=== PATIENT | female | born 1940 | race American Indian/Alaskan Native ===

== ENCOUNTER 2016-10-20 09:41 | Inpatient (IN) | payer MEDICARE ==
[2016-10-20 09:42] VITALS: BMI 24.0
[2016-10-20 10:22] LABS: VENOUS BLOOD GAS BASE EXCESS -6.8 mmol/L (0.0-2.0); VENOUS BLOOD GAS PCO2 52 mmHg (40-60); VENOUS BLOOD PH 7.22 (7.32-7.43)
[2016-10-20 10:24] LABS: BASO % 0.5 % (0.0-2.0); EOS # 0.1 K/uL (0.0-0.7); EOS % 1.2 % (0.0-4.0); HEMATOCRIT 33.6 % (34.0-47.0); LYMPH # 0.7 K/uL (1.0-4.3); LYMPH % 7.6 % (20.0-40.0); MEAN CELL VOLUME 86.6 fL (81.0-99.0); MEAN CORPUSCULAR HEMOGLOBIN 26.7 pg (27.0-31.0); MEAN CORPUSCULAR HGB CONC 30.9 g/dL (33.0-37.0); MEAN PLATELET VOLUME 8.9 fL (7.2-11.7); MONO # 0.2 K/uL (0.0-0.8); MONO % 2.8 % (0.0-10.0); PLATELET COUNT 155 K/uL (130-400); RED CELL DISTRIBUTION WIDTH 16.1 % (11.5-14.5); WHITE BLOOD COUNT 8.6 K/uL (4.8-10.8)
[2016-10-20 10:31] LABS: POTASSIUM 4.9 mmol/L (3.6-5.2)
[2016-10-20 10:33] LABS: BILIRUBIN,TOTAL 0.6 mg/dL (0.2-1.3)
[2016-10-20 10:34] LABS: ALB/GLOB RATIO 1.2 (1.0-2.1); CALCIUM 9.1 mg/dl (8.6-10.4); TOTAL PROTEIN 7.9 g/dL (6.3-8.3)
[2016-10-20 10:46] LABS: TROPONIN I 0.023 ng/mL (0.00-0.120)
--- NOTE | 2016-10-20 10:54 | RAD ---
PROCEDURE: CHEST RADIOGRAPH, 1 VIEW HISTORY: ams COMPARISON: Comparison chest 06/05/2016 FINDINGS: LUNGS: Diffuse bilateral infiltrates likely representing pulmonary edema/CHF. PLEURA: No pneumothorax or pleural fluid seen. CARDIOVASCULAR: Cardiomegaly OSSEOUS STRUCTURES: No significant abnormalities. VISUALIZED UPPER ABDOMEN: Normal. OTHER FINDINGS: None. IMPRESSION: Diffuse bilateral infiltrates likely representing pulmonary edema/CHF.
[2016-10-20 10:57] LABS: RBC URINE 4 /hpf (0-3); TRANSITIONAL EPITHIAL 3 /hpf (0-3); URINE BACTERIA RARE (<OCC); URINE BILIRUBIN NEGATIVE (NEGATIVE); URINE BLOOD 1+ (NEGATIVE); URINE COLOR Yellow (YELLOW); URINE GLUCOSE (UA) 2+ mg/dL (Normal); URINE KETONE NEGATIVE (NEGATIVE); URINE LEUKOCYTE ESTERASE 3+ Leu/uL (Negative); URINE PROTEIN 2+ mg/dL (NEGATIVE); URINE UROBILINOGEN NORMAL mg/dL (0.2-1.0); WBC URINE 53 /hpf (0-5)
--- NOTE | 2016-10-20 11:14 | C.PDOC ---
History Of Present Illness 76-year-old female with PMHx that includes Hypertension and Diabetes, presents to the emergency department [facility] for evaluation of altered mental status. As per family, patient woke up this morning, was confused and not acting like herself. Patient's blood sugar was in 30's on EMS arrival. She was given two AMPs of D50 by ALS en route. Patient reports she is currently feeling "cold" and is shivering during evaluation. She denies shortness of breath, abdominal pain, nausea/vomiting, sensory changes, extremity weakness, facial droop, slurred speech, visual changes. Time Seen by Provider: 10/20/16 09:46 Chief Complaint (Nursing): Altered Mental Status History Per: Patient, EMS, Family History/Exam Limitations: Other (ams) Onset/Duration Of Symptoms: Hrs Current Symptoms Are (Timing): Better Severity: Moderate Past Medical History Reviewed: Historical Data, Nursing Documentation, Vital Signs Vital Signs: Last Vital Signs Temp 98.6 F 10/23/16 07:19 Pulse 98 H 10/23/16 08:00 Resp 20 10/23/16 07:19 BP 154/75 H 10/23/16 11:32 Pulse Ox 95 10/23/16 07:19 - Medical History PMH: Anemia, Arthritis, Asthma (Dx 15 yrs ago,does not use home o2 anymore), Diabetes, Fractures (Right ankle. No sx, casted), HTN, Hypercholesterolemia, Peripheral Edema, Pneumonia (x2), Chronic Kidney Disease, TIA (x3 about 20 yrs ago, 10 yrs ago, 7 yrs ago) Surgical History: Endoscopy - [facility] Procedures INJECT/INFUSE NEC (07/22/14) Family History: States: No Known Family Hx - Social History Hx Tobacco Use: No Hx Alcohol Use: No Hx Substance Use: No - Immunization History Hx Tetanus Toxoid Vaccination: No Hx Influenza Vaccination: No Hx Pneumococcal Vaccination: No Review Of Systems Except As Marked, All Systems Reviewed And Found Negative. Constitutional: Negative for: Fever, Chills Cardiovascular: Negative for: Chest Pain, Palpitations Respiratory: Negative for: Cough, Shortness of Breath Gastrointestinal: Negative for: Nausea, Vomiting, Abdominal Pain, Diarrhea Musculoskeletal: Negative for: Back Pain Neurological: Positive for: Confusion, Altered Mental Status. Negative for: Numbness, Incoordination, Change in Speech, Seizures, Headache Physical Exam - Physical Exam Appears: Well, Non-toxic, No Acute Distress Skin: Warm, Dry, No Rash Head: Atraumatic, Normacephalic Eye(s): bilateral: Normal Inspection, PERRL, EOMI Oral Mucosa: Moist Lips: Normal Appearing Neck: Normal, Normal ROM, Supple Cardiovascular: Rhythm Regular Respiratory: Normal Breath Sounds, No Rales, No Rhonchi, No Wheezing Gastrointestinal/Abdominal: Normal Exam, Bowel Sounds, Soft, No Tenderness Back: Normal Inspection, No CVA Tenderness Extremity: Normal ROM, No Pedal Edema, No Calf Tenderness, No Deformity, Other ( AV fistula in left arm with palpable thrill.) Pulses: Left Dorsalis Pedis: Normal, Right Dorsalis Pedis: Normal Neurological/Psych: Oriented x3, Normal Speech, Normal Sensation ED Course And Treatment - Laboratory Results Result Diagrams: 10/23/16 06:30 10/23/16 06:48 ECG: Interpreted By Me, Viewed By Me ECG Rhythm: Sinus Rhythm ECG Interpretation: Abnormal Interpretation Of ECG: Occasional PVC's. Normal [place]. Prolonged QTD:496ms. T wave inversion: I, AVL, V5 and V6 Rate From EC (bpm) O2 Sat by Pulse Oximetry: 96 (RA) Pulse Ox Interpretation: Normal - Other Rad cxr X-Ray: Viewed By Me, Read By Radiologist Interpretation: Accession No. : [id number]. Patient Name / ID : RAIMUNDO VANEGAS / [id number]. Exam Date : 10/20/2016 09:57:46 ( Approved ). Study Comment : Sex / Age : F / 76Y. Creator : Thien Cowan MD. Dictator : Thien Cowan MD. Retail Worker : Music Publicist : Thien Cowan MD. Approver2 : Report Date : 10/20/2016 10:53:13. My Comment : . PROCEDURE: CHEST RADIOGRAPH, 1 VIEW. HISTORY: ams. COMPARISON: Comparison chest 06/05. FINDINGS: LUNGS: Diffuse bilateral infiltrates likely representing pulmonary edema/CHF. PLEURA: No pneumothorax or pleural fluid seen. CARDIOVASCULAR: Cardiomegaly. OSSEOUS STRUCTURES: No significant abnormalities. VISUALIZED UPPER ABDOMEN: Normal. OTHER FINDINGS: None. IMPRESSION: Diffuse bilateral infiltrates likely representing pulmonary edema/ CHF. Progress Note: Blood work, EKG, CXR, Blood work, and UA ordered and reviewed. Patient given IV azithromycin and IV rocephin for B/L infiltrates. - Physician Consult Information Physician Contacted: Michael Lockhart Outcome Of Conversation: Discussed patient with hospitalist, he agrees with admission for hypoglycemia, pneumonia, CHF, UTI, AMNS, QTc prolonged. Disposition - Disposition Disposition: HOSPITALIZED Disposition Time: 11:45 Condition: STABLE - Clinical Impression Clinical Impression: Pneumonia, UTI (urinary tract infection), Diabetic hypoglycemia, Altered mental status, CHF (congestive heart failure) - Scribe Statement The provider has reviewed the documentation as recorded by the Scribgume Damico All medical record entries made by the Scribe were at my direction and personally dictated by me. I have reviewed the chart and agree that the record accurately reflects my personal performance of the history, physical exam, medical decision making, and the department course for this patient. I have also personally directed, reviewed, and agree with the discharge instructions and disposition. Decision To Admit - Pt Status Changed To: Hospital Disposition Of: Inpatient - Admit Certification Admit to Inpatient:: After my assessment, the patient will require hospitalization for at least two midnights. This is because of the severity of symptoms shown, intensity of services needed, and/or the medical risk in this patient being treated as an outpatient. - InPatient: Physician Admission Certification:: see notes - . Bed Request Type: Telemetry Admitting Physician: Michael Lockhart Patient Diagnosis: Pneumonia, UTI (urinary tract infection), Diabetic hypoglycemia, Altered mental status, CHF (congestive heart failure)
[2016-10-20 11:18] LABS: EOSINOPHIL 2 % (0-4); NEUTROPHIL 88 % (50-75); TOTAL CELLS COUNTED 100
[2016-10-20 11:21] LABS: LARGE PLATELETS PRESENT
[2016-10-20] MEDS ORDERED: cefTRIAXone IV 1 gm in Dextros 50 ML IVPB ONE (11:25)
[2016-10-20] MEDS ORDERED: Azithromycin 500 MG in Sodium Chloride 0.9% 250 ML IVPB STA (11:38)
[2016-10-20] MEDS ORDERED: Azithromycin 500mg/250ML NS 250 ML IVPB ONE (11:44)
--- NOTE | 2016-10-20 12:12 | CP.PCM.HP ---
<Bandar Stauffer - Last Filed: 10/20/16 13:50> History of Present Illness - History of Present Illness History of Present Illness: CC: "Confused" HPI: Patient is a 76 year old female with a history of IDDM and HTN who lives alone is brought in by amulance after she was found by her daughter at home with acute confusion and found to bey hypoglycemic. Patient is seen at bedside with daughter present who came over around 7 am to her mother's house. She found her mother was very confused and to have very low blood sugar. She then called 911 and she was then taken to the hospital. Patient's daughter was unsure of her medical history or her medications. Patient's daughter reports no shortness of breath, cough, fever, chills, vomiting. Chart review PMHx- per chart review HTN, asthma, arthritis, pneumonia, diabetes mellitus, prior TIAs and chronic kidney disease PSH: recently had AV fistula, per chart review stomach mass removed Fam Hx- two sons have DM Social Hx- smoke approx 1 ppd for an uncertain amount of time; denies alcohol or drug use Meds- insulin novolog 70/30 flex pen, labetalol 200 mg po bid, enalapril 20 mg po bid, asa 81 mg, norvasc 10 mg po daily Allergies- PCN - gets hives PMD- Dr. Altaf Breaux Present on Admission - Present on Admission Any Indicators Present on Admission: No History of DVT/PE: No History of Uncontrolled Diabetes: No Urinary Catheter: No Decubitus Ulcer Present: No History Surgical Site Infection Following: None Review of Systems - Review of Systems Systems not reviewed;Unavailable: Acuity of Condition Review of Systems: Very limited due to patient's condition Past Patient History - Infectious Disease Hx of Infectious Diseases: None - Tetanus Immunizations Tetanus Immunization: Unknown - Past Medical History & Family History Past Medical History?: Yes - Past Social History Smoking Status: Never Smoked - CARDIAC Hx Hypercholesterolemia: Yes Hx Hypertension: Yes Hx Peripheral Edema: Yes - PULMONARY Hx Asthma: Yes (Dx 15 yrs ago,does not use home o2 anymore) Hx Pneumonia: Yes (x2) - NEUROLOGICAL Hx Transient Ischemic Attacks (TIA): Yes (x3 about 20 yrs ago, 10 yrs ago, 7 yrs ago) - HEENT Hx HEENT Problems: Yes Hx Cataracts: Yes (Seferino IOL) - RENAL Hx Chronic Kidney Disease: Yes - ENDOCRINE/METABOLIC Hx Diabetes Mellitus Type 2: Yes - HEMATOLOGICAL/ONCOLOGICAL Hx Anemia: Yes - INTEGUMENTARY Hx Dermatological Problems: Yes Other/Comment: Bilateral lower legs dry skin - MUSCULOSKELETAL/RHEUMATOLOGICAL Hx Arthritis: Yes Hx Fractures: Yes (Right ankle. No sx, casted) - GASTROINTESTINAL Hx Gastrointestinal Disorders: Yes Other/Comment: Hx colon cancer - GENITOURINARY/GYNECOLOGICAL Hx Genitourinary Disorders: No - PSYCHIATRIC Hx Depression: No Hx Substance Use: No - SURGICAL HISTORY Hx Cataract Extraction: Yes (LEFT) - ANESTHESIA Hx Anesthesia: Yes Hx Anesthesia Reactions: No Hx Malignant Hyperthermia: No Meds Allergies/Adverse Reactions: Allergies Allergy/AdvReac Type Severity Reaction Status Date / Time Penicillins Allergy Intermediate RASH Verified 06/05/16 11:49 Physical Exam - Head Exam Head Exam: ATRAUMATIC, NORMAL INSPECTION, NORMOCEPHALIC - Eye Exam Eye Exam: Normal appearance, PERRL Pupil Exam: NORMAL ACCOMODATION - ENT Exam ENT Exam: Normal Exam - Neck Exam Neck exam: Positive for: Normal Inspection - Respiratory Exam Respiratory Exam: Clear to Auscultation Bilateral. absent: Decreased Breath Sounds, Rales, Rhonchi, Wheezes - Cardiovascular Exam Cardiovascular Exam: REGULAR RHYTHM, RRR, +S1, +S2. absent: Gallop, JVD, Rubs - GI/Abdominal Exam GI & Abdominal Exam: Normal Bowel Sounds. absent: Guarding, Rebound, Soft, Tenderness - Extremities Exam Extremities exam: Positive for: normal inspection. Negative for: pedal edema - Neurological Exam Neurological exam: Alert - Skin Skin Exam: Normal Color Results - Vital Signs Recent Vital Signs: Last Vital Signs Temp 95.8 F L 10/20/16 10:20 Pulse 86 10/20/16 09:49 Resp 20 10/20/16 09:49 BP 150/65 10/20/16 09:49 Pulse Ox 96 10/20/16 11:51 - Labs Result Diagrams: 10/20/16 10:17 10/20/16 10:17 Assessment & Plan (1) Diabetic hypoglycemia Assessment and Plan: Hold home insulin for now, monitor accuc checks for now, see note on AMS, follow up Hemoglobin a1c. D5 at 40 cc/hr. Status: c (2) Prophylactic measure Assessment and Plan: Protonix 20mg Heparin 5000 units sc q8h SCDs Status: c (3) Hypertension Assessment and Plan: continue home Zestril and Labtelol Status: h (4) Chronic kidney disease (CKD) Assessment and Plan: Dr. Martinez consulted for nephrology Status: h (5) Anemia Assessment and Plan: Most likely chronic anemia secondly to anemia of chronic diase. Will continue to monitor. Status: h (6) UTI (urinary tract infection) Assessment and Plan: Rocephin started, will continue that, follow up urine culture and senstivity Status: c (7) Altered mental status Assessment and Plan: Patient admitted to tele/inpatient floor. She was hypoglycemic with a BS around 38 that improved with D50. Will follow up serena panel q6h x2, cbc cmp, mag, phos, tsh and free t4. UA shows evidence of UTI and CXR shows possible pnuemonia. Most likely her AMS is combination of hypoglyecemia and infectious process, will get a CT without contrast. fall precuation, swallow study and eval. Status: c (8) Pneumonia Status: c Comment: CXR shows diffuse infilitrate and pulmonary edma. Zithromax and Rocephin started today, follow up blood cultures. <Jayme Harrell - Last Filed: 11/21/16 15:08> Results - Vital Signs Recent Vital Signs: Last Vital Signs Temp 98.9 F 11/01/16 07:07 Pulse 86 11/01/16 07:07 Resp 18 11/01/16 07:07 BP 164/63 H 11/01/16 10:02 Pulse Ox 96 11/01/16 07:07 - Labs Result Diagrams: 11/01/16 06:12 11/01/16 06:12 Attending/Attestation - Attestation I have personally seen and examined this patient.: Yes I have fully participated in the care of the patient.: Yes I have reviewed all pertinent clinical information: Yes Notes (Text): Patient seen and examined with the resident. Agree with the resident's evaluation, assessment and plan. Most likely her AMS is combination of hypoglyecemia and infectious process from UTI and suspected pneumonia
--- NOTE | 2016-10-20 14:04 | CT ---
PROCEDURE: CT HEAD WITHOUT CONTRAST. HISTORY: ams COMPARISON: Comparison CT scan 05/19/2016 TECHNIQUE: Axial computed tomography images were obtained through the head/brain without intravenous contrast. Radiation dose: Total exam DLP = 696.65 mGy-cm. This CT exam was performed using one or more of the following dose reduction techniques: Automated exposure control, adjustment of the mA and/or kV according to patient size, and/or use of iterative reconstruction technique. FINDINGS: HEMORRHAGE: No intracranial hemorrhage. BRAIN: Chronic infarct right frontal lobe. . There is also some involvement of the right anterior superior basal ganglia. Note that ischemic changes along the right internal capsule are new since prior study ; In addition, there is a chronic right posterior occipital parietal watershed zone. Moderate chronic white matter ischemic changes also seen extending peripherally into the deep and subcortical white matter both cerebral hemispheres. . . Few tiny left basal ganglia hand right cerebellar lacunar type infarcts. Note that the possibility of a underlying acute infarct cannot be completely excluded. Correlation with neurologic exam Moderate atrophy. Vascular calcifications both carotid siphons VENTRICLES: Moderate generalized volume loss with more localized ex vacuo dilatation right frontal and occipital horns secondary to the aforementioned infarcts. . CALVARIUM: Unremarkable. PARANASAL SINUSES: Unremarkable as visualized. No significant inflammatory changes. MASTOID AIR CELLS: Unremarkable as visualized. No inflammatory changes. OTHER FINDINGS: Status post right cataract surgery IMPRESSION: No acute intracranial hemorrhage. Chronic infarct right frontal lobe. . There is also some involvement of the right anterior superior basal ganglia. Note that ischemic changes along the right internal capsule are new since prior study ; In addition, there is a chronic right posterior occipital parietal watershed zone. Moderate chronic white matter ischemic changes also seen extending peripherally into the deep and subcortical white matter both cerebral hemispheres. . . Few tiny left basal ganglia hand right cerebellar lacunar type infarcts. Note that the possibility of a underlying acute infarct cannot be completely excluded. Correlation with neurologic exam Moderate atrophy.
[2016-10-20] MEDS: Dextrose 5%/0.45% NS 1,000 ML IV SCH (14:30)
--- NOTE | 2016-10-20 14:32 | CP.PCM.CON ---
History of Present Illness - History of Present Illness History of Present Illness: 76 y/o female with Stage 1V kidney disease, HTN , DM TIAs was admitted yesterday for change in mental status & severe hypoglycemia. Pt is known to us previous admissions & office visits. Last yr a Lt arm AVF was done by Dr Quinonez. Pt tends to have hyperkalemia & had quite significant HPT She was started on Rocaltrol & was councelled on low K+ diet Did not come for f/u for sometime Past Patient History - Infectious Disease Hx of Infectious Diseases: None - Tetanus Immunizations Tetanus Immunization: Unknown - Past Medical History & Family History Past Medical History?: Yes - Past Social History Smoking Status: Never Smoked - CARDIAC Hx Hypercholesterolemia: Yes Hx Hypertension: Yes Hx Peripheral Edema: Yes - PULMONARY Hx Asthma: Yes (Dx 15 yrs ago,does not use home o2 anymore) Hx Pneumonia: Yes (x2) - NEUROLOGICAL Hx Transient Ischemic Attacks (TIA): Yes (x3 about 20 yrs ago, 10 yrs ago, 7 yrs ago) - HEENT Hx HEENT Problems: Yes Hx Cataracts: Yes (Seferino IOL) - RENAL Hx Chronic Kidney Disease: Yes - ENDOCRINE/METABOLIC Hx Diabetes Mellitus Type 2: Yes - HEMATOLOGICAL/ONCOLOGICAL Hx Anemia: Yes - INTEGUMENTARY Hx Dermatological Problems: Yes Other/Comment: Bilateral lower legs dry skin - MUSCULOSKELETAL/RHEUMATOLOGICAL Hx Arthritis: Yes Hx Falls: No Hx Fractures: Yes (Right ankle. No sx, casted) - GASTROINTESTINAL Hx Gastrointestinal Disorders: Yes Other/Comment: Hx colon cancer - GENITOURINARY/GYNECOLOGICAL Hx Genitourinary Disorders: No - PSYCHIATRIC Hx Depression: No Hx Substance Use: No - SURGICAL HISTORY Hx Cataract Extraction: Yes (LEFT) - ANESTHESIA Hx Anesthesia: Yes Hx Anesthesia Reactions: No Hx Malignant Hyperthermia: No Meds Allergies/Adverse Reactions: Allergies Allergy/AdvReac Type Severity Reaction Status Date / Time Penicillins Allergy Intermediate RASH Verified 06/05/16 11:49 - Medications Medications: Current Medications Aspirin (Ecotrin) 81 mg PO DAILY [facility] Heparin Sodium (Porcine) (Heparin) 5,000 units SC Q8 [facility] Azithromycin 500 mg/ Sodium (Chloride) 250 mls @ 250 mls/hr IVPB Q24H [facility] Ceftriaxone Sodium 1 gm/ (Sodium Chloride) 100 mls @ 100 mls/hr IVPB DAILY [facility] Dextrose/Sodium Chloride (Dextrose 5%/0.45% Ns 1000 Ml) 1,000 mls @ 40 mls/hr IV .Q24H [facility] Labetalol HCl (Trandate) 200 mg PO BID [facility] Lisinopril (Zestril) 5 mg PO DAILY [facility] Last Admin: 10/20/16 12:56 Dose: 5 mg Ondansetron HCl (Zofran Inj) 4 mg IVP Q6 PRN PRN Reason: Nausea/Vomiting Pantoprazole Sodium (Protonix Ec Tab) 20 mg PO DAILY [facility] Physical Exam - Constitutional Appears: No Acute Distress - Head Exam Head Exam: ATRAUMATIC, NORMOCEPHALIC - Neck Exam Additional comments: Neck supple - Respiratory Exam Respiratory Exam: NORMAL BREATHING PATTERN Additional comments: Lungs clear - Cardiovascular Exam Cardiovascular Exam: REGULAR RHYTHM - GI/Abdominal Exam GI & Abdominal Exam: Soft - Rectal Exam Rectal Exam: Deferred - Extremities Exam Additional comments: No eema or cyanosis + bruit over Lt arm AVF Results - Vital Signs Recent Vital Signs: Last Vital Signs Temp 97.7 F 10/20/16 14:04 Pulse 90 10/20/16 14:04 Resp 20 10/20/16 14:04 BP 169/69 H 10/20/16 14:04 Pulse Ox 99 10/20/16 14:04 - Labs Result Diagrams: 10/20/16 10:17 10/20/16 10:17 Assessment & Plan - Assessment and Plan (Free Text) Assessment: Stage 1V kidney disease. renal function has remained stable DM 11. HTN Pneumonitis Plan: Will repeat PTH, phos Low K+ diet Monitor BP
[2016-10-21 06:30] LABS: BASO % 0.5 % (0.0-2.0); EOS # 0.2 K/uL (0.0-0.7); EOS % 2.2 % (0.0-4.0); HEMATOCRIT 27.4 % (34.0-47.0); LYMPH # 1.2 K/uL (1.0-4.3); LYMPH % 15.1 % (20.0-40.0); MEAN CELL VOLUME 85.5 fL (81.0-99.0); MEAN CORPUSCULAR HEMOGLOBIN 27.2 pg (27.0-31.0); MEAN CORPUSCULAR HGB CONC 31.8 g/dL (33.0-37.0); MEAN PLATELET VOLUME 9.3 fL (7.2-11.7); MONO # 0.4 K/uL (0.0-0.8); MONO % 5.5 % (0.0-10.0); NRBC % 0.1 % (0.0-2.0); RED CELL DISTRIBUTION WIDTH 15.6 % (11.5-14.5); WHITE BLOOD COUNT 7.8 K/uL (4.8-10.8)
[2016-10-21 06:44] LABS: PHOSPHOROUS 3.7 mg/dL (2.5-4.5)
[2016-10-21 07:11] LABS: THYROID STIMULATING HORMONE 1.44 mIU/L (0.46-4.68)
--- NOTE | 2016-10-21 08:30 | CP.PCM.PN ---
<EhBandar H - Last Filed: 10/21/16 13:40> Subjective - Date & Time of Evaluation Date of Evaluation: 10/21/16 Time of Evaluation: 13:00 - Subjective Subjective: Dr. Lockhart progress note: Patient seen and examined with primary medical attending. Patient is alert and oriented to person, place and time. She is not complaining of any pain but she does say she does not remember how she got the hospital. Objective - Vital Signs/Intake and Output Vital Signs (last 24 hours): Temp Pulse Resp BP Pulse Ox 97.8 F 82 20 150/65 98 10/21/16 00:10 10/21/16 04:20 10/21/16 00:10 10/21/16 00:10 10/21/16 00:10 - Medications Medications: Current Medications Aspirin (Ecotrin) 81 mg PO DAILY [facility] Heparin Sodium (Porcine) (Heparin) 5,000 units SC Q8 [facility] Last Admin: 10/21/16 05:19 Dose: 5,000 units Azithromycin 500 mg/ Sodium (Chloride) 250 mls @ 250 mls/hr IVPB Q24H [facility] Ceftriaxone Sodium 1 gm/ (Sodium Chloride) 100 mls @ 100 mls/hr IVPB DAILY [facility] Dextrose/Sodium Chloride (Dextrose 5%/0.45% Ns 1000 Ml) 1,000 mls @ 40 mls/hr IV .Q24H [facility] Last Admin: 10/20/16 14:30 Dose: 40 mls/hr Labetalol HCl (Trandate) 200 mg PO BID [facility] Last Admin: 10/20/16 20:41 Dose: 200 mg Lisinopril (Zestril) 5 mg PO DAILY [facility] Last Admin: 10/20/16 12:56 Dose: 5 mg Ondansetron HCl (Zofran Inj) 4 mg IVP Q6 PRN PRN Reason: Nausea/Vomiting Pantoprazole Sodium (Protonix Ec Tab) 20 mg PO DAILY [facility] - Labs Labs: 10/21/16 06:06 - Constitutional Appears: Non-toxic, No Acute Distress - Head Exam Head Exam: ATRAUMATIC, NORMAL INSPECTION, NORMOCEPHALIC - Eye Exam Eye Exam: Normal appearance Pupil Exam: NORMAL ACCOMODATION - ENT Exam ENT Exam: Normal Exam - Neck Exam Neck Exam: Normal Inspection - Respiratory Exam Respiratory Exam: Clear to Ausculation Bilateral. absent: Rales, Rhonchi, Wheezes - Cardiovascular Exam Cardiovascular Exam: REGULAR RHYTHM, RRR, +S1, +S2. absent: Gallop, Rubs - GI/Abdominal Exam GI & Abdominal Exam: Soft, Normal Bowel Sounds. absent: Tenderness - Back Exam Back Exam: NORMAL INSPECTION - Neurological Exam Neurological Exam: Alert, CN II-XII Intact, Oriented x3 Neuro motor strength exam: Left Upper Extremity: 5, Right Upper Extremity: 5, Left Lower Extremity: 5, Right Lower Extremity: 5 - Psychiatric Exam Psychiatric exam: Normal Affect, Normal Mood - Skin Skin Exam: Dry, Normal Color Assessment and Plan (1) Altered mental status Assessment & Plan: Most likely secondary from infection and also hypoglycemia. Patient did say she did not eat the night before admission. Status: Resolved (2) UTI (urinary tract infection) Assessment & Plan: IV Rocephin, urine culture negative, blood culture pending. Status: Acute (3) Pneumonia Assessment & Plan: Zithromax, patient is afebrile with no white count. Status: Acute (4) Diabetic hypoglycemia Status: Acute (5) Anemia Assessment & Plan: Most likely anemia of chronic disease Status: Chronic (6) Chronic kidney disease (CKD) Assessment & Plan: Dr. Martinez consulted, patient may need dialysisi at some point in the future, will follow up consult. Status: Chronic (7) Hypertension Assessment & Plan: continue current htn medication Status: Chronic (8) Prophylactic measure Assessment & Plan: continue her current Heparin and protonix. Status: Acute <Michael Lockhart H - Last Filed: 10/21/16 16:16> Objective - Vital Signs/Intake and Output Vital Signs (last 24 hours): Temp Pulse Resp BP Pulse Ox 98.6 F 91 H 20 157/68 H 96 10/21/16 07:00 10/21/16 11:42 10/21/16 07:00 10/21/16 07:00 10/21/16 11:42 - Medications Medications: Current Medications Aspirin (Ecotrin) 81 mg PO DAILY [facility] Last Admin: 10/21/16 09:38 Dose: 81 mg Heparin Sodium (Porcine) (Heparin) 5,000 units SC Q8 [facility] Last Admin: 10/21/16 13:32 Dose: 5,000 units Azithromycin 500 mg/ Sodium (Chloride) 250 mls @ 250 mls/hr IVPB Q24H [facility] Last Admin: 10/21/16 11:37 Dose: 250 mls/hr Ceftriaxone Sodium 1 gm/ (Sodium Chloride) 100 mls @ 100 mls/hr IVPB DAILY [facility] Last Admin: 10/21/16 09:37 Dose: 100 mls/hr Dextrose/Sodium Chloride (Dextrose 5%/0.45% Ns 1000 Ml) 1,000 mls @ 40 mls/hr IV .Q24H [facility] Last Admin: 10/21/16 16:05 Dose: 40 mls/hr Insulin Human Regular (Novolin R) 0 unit SC ACHS [facility] PRN Reason: Protocol Last Admin: 10/21/16 12:44 Dose: 1 unit Labetalol HCl (Trandate) 200 mg PO BID [facility] Last Admin: 10/21/16 09:38 Dose: 200 mg Lisinopril (Zestril) 5 mg PO DAILY [facility] Last Admin: 10/21/16 09:38 Dose: 5 mg Ondansetron HCl (Zofran Inj) 4 mg IVP Q6 PRN PRN Reason: Nausea/Vomiting Last Admin: 10/21/16 12:47 Dose: 4 mg Pantoprazole Sodium (Protonix Ec Tab) 20 mg PO DAILY [facility] Last Admin: 10/21/16 09:38 Dose: 20 mg - Labs Labs: 10/21/16 06:06 10/21/16 06:06 Attending/Attestation - Attestation I have personally seen and examined this patient.: Yes I have fully participated in the care of the patient.: Yes I have reviewed all pertinent clinical information, including history, physical exam and plan: Yes Notes (Text): 10/21/16 16:11 Medical attending: Patient was seen and examined by me, agrees the above note by medical aide. When I saw the patient today she was alert and orientated 3. She was very conversational, very pleasant affect. She explains to us that she does not remember coming to the hospital. And that she does not remember the medical aide admitting her despite me meeting the patient with the same medical aide. Later in the day the patient's family members came, and they explained to me that the patient does take insulin. The patient was able to recall to me that she took 15 units of insulin earlier in the day but that she had not been eating properly. Family members at bedside explained to me that they noticed that her appetite was poor that day. But she still took her insulin. The family members explained that she now looks back to her baseline mental status The patient explains that she does not have enough test strips, and she thinks that her glucometer is not properly functioning. So she did not actually know what her blood sugar was before she gave for self insulin, and on top of that her appetite was very poor. So I explained to the patient as well as the patient's family that at this time regarding continue the intravenous fluids with dextrose, I encouraged her to eat. And at some point we should turn off the intravenous fluids with dextrose. Were also continue the antibiotics for the urinary tract infection. I explained to them that it is possible that perhaps she was feeling sick from urinary tract infection and there by her appetite was very poor. And so when she gave herself the insulin injection it made her blood sugar very very low she is not eating Thank you very much, Michael Lockhart
[2016-10-21] MEDS: Pantoprazole 20 mg EC Tab PO SCH (09:38)
[2016-10-21] MEDS: Azithromycin 500 MG in Sodium Chloride 0.9% 250 ML IVPB SCH (11:37)
[2016-10-21] MEDS: (Novolin R) Insulin Human Regular 100 units/ml vial SC SCH ×3 (12:44→21:23)
[2016-10-21 14:16] LABS: POTASSIUM 4.9 mmol/L (3.6-5.2)
[2016-10-21 14:18] LABS: BILIRUBIN,TOTAL 0.5 mg/dL (0.2-1.3)
[2016-10-21 14:19] LABS: CALCIUM 8.4 mg/dl (8.6-10.4)
--- NOTE | 2016-10-21 14:42 | CP.PCM.PN ---
Subjective - Date & Time of Evaluation Date of Evaluation: 10/21/16 Time of Evaluation: 02:45 - Subjective Subjective: Alert. No complaints Objective - Vital Signs/Intake and Output Vital Signs (last 24 hours): Temp Pulse Resp BP Pulse Ox 98.6 F 91 H 20 157/68 H 96 10/21/16 07:00 10/21/16 11:42 10/21/16 07:00 10/21/16 07:00 10/21/16 11:42 - Medications Medications: Current Medications Aspirin (Ecotrin) 81 mg PO DAILY [facility] Last Admin: 10/21/16 09:38 Dose: 81 mg Heparin Sodium (Porcine) (Heparin) 5,000 units SC Q8 [facility] Last Admin: 10/21/16 13:32 Dose: 5,000 units Azithromycin 500 mg/ Sodium (Chloride) 250 mls @ 250 mls/hr IVPB Q24H [facility] Last Admin: 10/21/16 11:37 Dose: 250 mls/hr Ceftriaxone Sodium 1 gm/ (Sodium Chloride) 100 mls @ 100 mls/hr IVPB DAILY [facility] Last Admin: 10/21/16 09:37 Dose: 100 mls/hr Dextrose/Sodium Chloride (Dextrose 5%/0.45% Ns 1000 Ml) 1,000 mls @ 40 mls/hr IV .Q24H [facility] Last Admin: 10/20/16 14:30 Dose: 40 mls/hr Insulin Human Regular (Novolin R) 0 unit SC ACHS [facility] PRN Reason: Protocol Last Admin: 10/21/16 12:44 Dose: 1 unit Labetalol HCl (Trandate) 200 mg PO BID [facility] Last Admin: 10/21/16 09:38 Dose: 200 mg Lisinopril (Zestril) 5 mg PO DAILY [facility] Last Admin: 10/21/16 09:38 Dose: 5 mg Ondansetron HCl (Zofran Inj) 4 mg IVP Q6 PRN PRN Reason: Nausea/Vomiting Last Admin: 10/21/16 12:47 Dose: 4 mg Pantoprazole Sodium (Protonix Ec Tab) 20 mg PO DAILY [facility] Last Admin: 10/21/16 09:38 Dose: 20 mg - Labs Labs: 10/21/16 06:06 10/21/16 06:06 - Respiratory Exam Additional comments: Lungs clear - Cardiovascular Exam Cardiovascular Exam: REGULAR RHYTHM - Extremities Exam Additional comments: No edema Assessment and Plan - Assessment and Plan (Free Text) Assessment: Stage 1V kidney dis. Renalfunction is stable Bicarb is low today Anemia of CKD IDDM Plan: Continue to monitor renal function Will need procrit
[2016-10-21] MEDS: Dextrose 5%/0.45% NS 1,000 ML IV SCH (16:05)
[2016-10-22 07:06] LABS: HEMATOCRIT 27.3 % (34.0-47.0); MEAN CELL VOLUME 85.4 fL (81.0-99.0); MEAN CORPUSCULAR HEMOGLOBIN 27.7 pg (27.0-31.0); MEAN CORPUSCULAR HGB CONC 32.4 g/dL (33.0-37.0); MEAN PLATELET VOLUME 8.9 fL (7.2-11.7); RED CELL DISTRIBUTION WIDTH 15.5 % (11.5-14.5); WHITE BLOOD COUNT 9.1 K/uL (4.8-10.8)
[2016-10-22 07:22] LABS: POTASSIUM 5.4 mmol/L (3.6-5.2)
[2016-10-22 07:26] LABS: CALCIUM 8.5 mg/dl (8.6-10.4)
--- NOTE | 2016-10-22 07:30 | CP.PCM.PN ---
<Jenni Lentz - Last Filed: 10/22/16 18:22> Subjective - Date & Time of Evaluation Date of Evaluation: 10/22/16 Time of Evaluation: 08:59 - Subjective Subjective: PGY 1 Medicine Note- Dr. Lockhart's service Pt seen and examined in no acute distress. She states hat her appetite is still poor. Patient reiterates that she has lost some weight over the past few mmonths. She also states that she has a prior history of colon cancer for which she was treated. At the moment, patient denies chest pain, dyspnea, palpitations , diarrhea, paresthesias, headaches or lightheadedness. Objective - Vital Signs/Intake and Output Vital Signs (last 24 hours): Temp Pulse Resp BP Pulse Ox 98.9 F 87 20 149/69 97 10/22/16 04:00 10/22/16 04:00 10/22/16 04:00 10/22/16 04:00 10/22/16 04:00 Intake and Output: 10/22/16 10/22/16 06:59 18:59 Intake Total 830 Output Total 450 Balance 380 - Medications Medications: Current Medications Aspirin (Ecotrin) 81 mg PO DAILY [facility] Last Admin: 10/21/16 09:38 Dose: 81 mg Heparin Sodium (Porcine) (Heparin) 5,000 units SC Q8 [facility] Last Admin: 10/22/16 06:01 Dose: 5,000 units Azithromycin 500 mg/ Sodium (Chloride) 250 mls @ 250 mls/hr IVPB Q24H [facility] Last Admin: 10/21/16 11:37 Dose: 250 mls/hr Ceftriaxone Sodium 1 gm/ (Sodium Chloride) 100 mls @ 100 mls/hr IVPB DAILY [facility] Last Admin: 10/21/16 09:37 Dose: 100 mls/hr Dextrose/Sodium Chloride (Dextrose 5%/0.45% Ns 1000 Ml) 1,000 mls @ 40 mls/hr IV .Q24H [facility] Last Admin: 10/21/16 16:05 Dose: 40 mls/hr Insulin Human Regular (Novolin R) 0 unit SC ACHS [facility] PRN Reason: Protocol Last Admin: 10/21/16 21:23 Dose: Not Given Labetalol HCl (Trandate) 200 mg PO BID [facility] Last Admin: 10/21/16 17:35 Dose: 200 mg Lisinopril (Zestril) 5 mg PO DAILY [facility] Last Admin: 10/21/16 09:38 Dose: 5 mg Ondansetron HCl (Zofran Inj) 4 mg IVP Q6 PRN PRN Reason: Nausea/Vomiting Last Admin: 10/21/16 12:47 Dose: 4 mg Pantoprazole Sodium (Protonix Ec Tab) 20 mg PO DAILY [facility] Last Admin: 10/21/16 09:38 Dose: 20 mg - Labs Labs: 10/22/16 06:58 10/21/16 06:06 - Constitutional Appears: Non-toxic, No Acute Distress - Head Exam Head Exam: ATRAUMATIC, NORMAL INSPECTION, NORMOCEPHALIC - Eye Exam Eye Exam: EOMI, Normal appearance, PERRL Pupil Exam: NORMAL ACCOMODATION - ENT Exam ENT Exam: Mucous Membranes Moist - Neck Exam Neck Exam: Full ROM - Respiratory Exam Respiratory Exam: NORMAL BREATHING PATTERN. absent: Wheezes - Cardiovascular Exam Cardiovascular Exam: +S1, +S2 - GI/Abdominal Exam GI & Abdominal Exam: Soft, Normal Bowel Sounds. absent: Tenderness - Extremities Exam Extremities Exam: Full ROM, Normal Capillary Refill. absent: Pedal Edema - Back Exam Back Exam: Full ROM - Neurological Exam Neurological Exam: Alert, Awake, CN II-XII Intact, Oriented x3 - Psychiatric Exam Psychiatric exam: Normal Affect, Normal Mood - Skin Skin Exam: Dry, Intact, Warm Additional comments: venous stasis changes in lower extremities, b/c Assessment and Plan - Assessment and Plan (Free Text) Assessment: Diabetes Mellitus Hypoglycemia now resolved, Cont to monitor. Encourage intake Status: Acute Anorexia with Weight Loss Hx of Colon cancer- prev treated F/U CT chest, abd,pelvis w/o contrast consider GI referral pending results Pneumonia Assessment & Plan: Zithromax, patient is afebrile with no white count. Status: Acute UTI (urinary tract infection) Assessment & Plan: IV Rocephin, urine culture negative, blood culture no growth to date Status: Acute Chronic kidney disease (CKD) Assessment & Plan: Dr. Martinez consulted, patient may need dialysis at some point in the future; Start procrit, PTH pending Status: Chronic Hypertension Assessment & Plan: Labetalol 200 mg PO BID, Zestril 5 mg PO daily Echo (10/22) approx greater than 50% EF; severely thickened mitral valve; cannot rule out vegetation; aortic valve severely thickened. refer to full report. 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 Ferrous sulfate daily Status: Chronic Hyperkalemia Assessment & Plan: Kayexelate administered Cont to monitor Prophylactic measure Assessment & Plan: Heparin SC Q8 PPI PT/OT eval- F/U OOB to chair Status: Acute <LockhartMichael obrien H - Last Filed: 10/27/16 07:21> Objective - Vital Signs/Intake and Output Vital Signs (last 24 hours): Temp Pulse Resp BP Pulse Ox 99.1 F 86 20 139/69 97 10/26/16 23:00 10/26/16 23:00 10/26/16 23:00 10/26/16 23:00 10/26/16 23:00 Intake and Output: 10/27/16 10/27/16 06:59 18:59 Intake Total 100 Balance 100 - Medications Medications: Current Medications Aspirin (Ecotrin) 81 mg PO DAILY [facility] Last Admin: 10/26/16 10:00 Dose: Not Given Epoetin Alan (Procrit) 10,000 unit SC QWK [facility] Ferrous Sulfate (Feosol) 325 mg PO BID [facility] Last Admin: 10/26/16 19:06 Dose: 325 mg Furosemide (Lasix) 20 mg IVP BID [facility] Last Admin: 10/26/16 10:00 Dose: Not Given Furosemide (Lasix) 20 mg PO BID [facility] Last Admin: 10/26/16 22:23 Dose: 20 mg Heparin Sodium (Porcine) (Heparin) 5,000 units SC Q8 [facility] Last Admin: 10/27/16 06:30 Dose: Not Given Azithromycin 500 mg/ Sodium (Chloride) 250 mls @ 250 mls/hr IVPB Q24H [facility] Last Admin: 10/26/16 10:00 Dose: Not Given Ceftriaxone Sodium 1 gm/ (Sodium Chloride) 100 mls @ 100 mls/hr IVPB DAILY [facility] Last Admin: 10/26/16 10:00 Dose: Not Given Insulin Aspart (Novolog) 0 unit SC ACHS [facility] PRN Reason: Protocol Last Admin: 10/26/16 22:25 Dose: 4 unit Insulin Glargine (Lantus) 10 unit SC HS [facility] Last Admin: 10/26/16 22:24 Dose: 10 units Labetalol HCl (Trandate) 200 mg PO BID [facility] Last Admin: 10/26/16 19:06 Dose: 200 mg Lisinopril (Zestril) 5 mg PO DAILY [facility] Last Admin: 10/26/16 10:00 Dose: Not Given Megestrol Acetate (Megace) 40 mg PO DAILY [facility] Last Admin: 10/26/16 10:00 Dose: Not Given Moxifloxacin HCl (Avelox) 400 mg PO DAILY [facility] Last Admin: 10/26/16 22:23 Dose: 400 mg Ondansetron HCl (Zofran Inj) 4 mg IVP Q6 PRN PRN Reason: Nausea/Vomiting Last Admin: 10/21/16 12:47 Dose: 4 mg Pantoprazole Sodium (Protonix Ec Tab) 20 mg PO DAILY [facility] Last Admin: 10/26/16 10:00 Dose: Not Given Sodium Bicarbonate (Sodium Bicarbonate Tab) 1,300 mg PO BID [facility] Last Admin: 10/26/16 19:06 Dose: 1,300 mg - Labs Labs: 10/26/16 07:12 10/26/16 07:12 Attending/Attestation - Attestation I have personally seen and examined this patient.: Yes I have fully participated in the care of the patient.: Yes I have reviewed all pertinent clinical information, including history, physical exam and plan: Yes
[2016-10-22] MEDS: (Novolin R) Insulin Human Regular 100 units/ml vial SC SCH ×4 (08:51→22:12)
[2016-10-22] MEDS: Pantoprazole 20 mg EC Tab PO SCH (09:18)
--- NOTE | 2016-10-22 10:43 | CP.PCM.PN ---
Subjective - Date & Time of Evaluation Date of Evaluation: 10/22/16 Time of Evaluation: 10:20 - Subjective Subjective: No new complaints reported Comfortable in bed Objective - Vital Signs/Intake and Output Vital Signs (last 24 hours): Temp Pulse Resp BP Pulse Ox 98.2 F 97 H 24 161/88 H 95 10/22/16 07:05 10/22/16 07:05 10/22/16 07:05 10/22/16 07:05 10/22/16 07:05 Intake and Output: 10/22/16 10/22/16 06:59 18:59 Intake Total 830 Output Total 450 Balance 380 - Medications Medications: Current Medications Aspirin (Ecotrin) 81 mg PO DAILY [facility] Last Admin: 10/22/16 09:17 Dose: 81 mg Heparin Sodium (Porcine) (Heparin) 5,000 units SC Q8 [facility] Last Admin: 10/22/16 06:01 Dose: 5,000 units Azithromycin 500 mg/ Sodium (Chloride) 250 mls @ 250 mls/hr IVPB Q24H [facility] Last Admin: 10/21/16 11:37 Dose: 250 mls/hr Ceftriaxone Sodium 1 gm/ (Sodium Chloride) 100 mls @ 100 mls/hr IVPB DAILY [facility] Last Admin: 10/22/16 09:16 Dose: 100 mls/hr Dextrose/Sodium Chloride (Dextrose 5%/0.45% Ns 1000 Ml) 1,000 mls @ 40 mls/hr IV .Q24H [facility] Last Admin: 10/21/16 16:05 Dose: 40 mls/hr Insulin Human Regular (Novolin R) 0 unit SC ACHS [facility] PRN Reason: Protocol Last Admin: 10/22/16 08:51 Dose: 2 unit Labetalol HCl (Trandate) 200 mg PO BID [facility] Last Admin: 10/22/16 09:17 Dose: 200 mg Lisinopril (Zestril) 5 mg PO DAILY [facility] Last Admin: 10/22/16 09:17 Dose: 5 mg Ondansetron HCl (Zofran Inj) 4 mg IVP Q6 PRN PRN Reason: Nausea/Vomiting Last Admin: 10/21/16 12:47 Dose: 4 mg Pantoprazole Sodium (Protonix Ec Tab) 20 mg PO DAILY [facility] Last Admin: 10/22/16 09:18 Dose: 20 mg - Labs Labs: 10/22/16 06:58 10/22/16 06:58 - Respiratory Exam Respiratory Exam: NORMAL BREATHING PATTERN Additional comments: Lungs clear - Cardiovascular Exam Cardiovascular Exam: REGULAR RHYTHM - Extremities Exam Additional comments: No edema Assessment and Plan - Assessment and Plan (Free Text) Assessment: Stage 1V kidney disease Hyperkalemia on low K+ diet HTN IDDM Plan: Kayexallate 15 g today Start procrit PTH pending
[2016-10-22] MEDS ORDERED: Sod Polystyrene Sulf 15 gm/60 ml Oral Susp PO ONE (10:46)
[2016-10-22] MEDS ORDERED: Epoetin Alfa 10,000 unit/ml Dialysis SC ONE (10:47)
[2016-10-22] MEDS: Azithromycin 500 MG in Sodium Chloride 0.9% 250 ML IVPB SCH (13:42)
--- NOTE | 2016-10-22 14:59 | CT ---
PROCEDURE: CT Chest, Abdomen and Pelvis without intravenous contrast HISTORY: weight loss with anorexia, hx of colon cancer COMPARISON: None. TECHNIQUE: Radiation dose: Total exam DLP = 716.35 mGy-cm. This CT exam was performed using one or more of the following dose reduction techniques: Automated exposure control, adjustment of the mA and/or kV according to patient size, and/or use of iterative reconstruction technique. Please note that due to lack of intravenous and oral contrast, evaluation of soft tissue structures and bowel is limited. FINDINGS: CT CHEST WITHOUT CONTRAST: LUNGS: Patchy airspace opacities in the bilateral upper lobes. MEDIASTINUM: The heart is enlarged. Coronary artery and valvular calcifications. Mitral annular calcifications seen. Mild enlargement of the pulmonary artery which can be seen in setting of pulmonary arterial hypertension. No aneurysmal dilatation of the ascending aorta. Scattered calcific plaque throughout the visualized portions of the aorta. Visualized aspects of the esophagus appears thickened. Underlying inflammation/infection should be considered. Fluid seen in the distal esophagus. LYMPH NODES: Mild mediastinal lymphadenopathy. Hilar lymphadenopathy suboptimally evaluated due to lack of intravenous contrast. PLEURA: Moderate-sized bilateral pleural effusions with associated compressive atelectasis. BONES: Generalized osteopenia. OTHER FINDINGS: Scattered left breast calcifications. CT ABDOMEN AND PELVIS: LIVER: Unremarkable. No gross lesion or ductal dilatation. GALLBLADDER AND BILE DUCTS: Near completely collapsed gallbladder limiting evaluation. PANCREAS: Unremarkable. No gross lesion or ductal dilatation. SPLEEN: Calcified granulomas was a vascular calcifications in the spleen. ADRENALS: Diffuse thickening of both adrenal glands. KIDNEYS AND URETERS: Shrunken size of both kidneys. No hydronephrosis. The ureters could not be evaluated optimally. VASCULATURE: Scattered calcification of the abdominal aorta and its main branches. The patency of the vasculature cannot be evaluated. IVC filter noted. Extensive calcific plaque throughout the abdominal aorta and its main branches and the pelvic arteries. BOWEL: Lack of oral contrast and distal bowel limits evaluation. Small hiatal hernia. High-density material within the stomach could be minimally ingested oral contrast. No definite bowel obstruction identified. Thickening of the rectal wall noted. This could be due to underdistention. There is mild stranding of the perirectal fat. Underlying proctitis can be considered if clinically relevant. Dilatation focally seen in the descending aorta with surgical suture line surrounding it. This could be the area of anastomosis. Moderate amount of stool seen throughout the colon suggestive of constipation. APPENDIX: Normal appendix. PERITONEUM: Unremarkable. No free fluid. No free air. LYMPH NODES: Unremarkable. No enlarged lymph nodes. BLADDER: Unremarkable. REPRODUCTIVE: Please note that evaluation of gynecologic organs is not optimal on CT imaging. The uterus is not seen. No suspicious adnexal masses identified. BONES: Degenerative changes in the spine most prominent at L4-L5. OTHER FINDINGS: Surgical clips in the abdomen. Minimal perihepatic fluid. IMPRESSION: Bilateral moderate-sized pleural effusions with associated compressive atelectasis. Bilateral upper lobe airspace patchy opacities. Underlying infection should be considered. Minimal perihepatic fluid. Scattered calcifications in the left breast.
--- NOTE | 2016-10-22 16:22 | CARD ---
APPROVED REPORT EXAM: Two-dimensional and M-mode echocardiogram with Doppler and color Doppler. Other Information Quality : GoodRhythm : NSR INDICATION ckd RISK FACTORS Hypertension Hyperlipidemia Diabetes M-Mode DIMENSIONS RVDd1.17 (2.1-3.2cm)Left Atrium (MM)3.64 (2.5-4.0cm) IVSd1.11 (0.7-1.1cm)Aortic Root2.77 (2.2-3.7cm) LVDd4.43 (4.0-5.6cm)Aortic Cusp Exc.1.40 (1.5-2.0cm) PWd1.27 (0.7-1.1cm)FS (%) 34 % LVDs2.93 (2.0-3.8cm)LVEF (%)63 (>50%) Aortic Valve AoV Peak Vhoxggyi346.5cm/Kathleen Peak GR.14mmHgAI P 1/2 Upvg521pk Mitral Valve MV E Kromixfb142.5cm/sMV A Slsohhgg25.7cm/sE/A ratio1.7 TDI E/Lateral E'0.0E/Medial E'0.0 Tricuspid Valve TR Peak Qgdxvmpc523uj/sTR Peak Gr.45zpYaGKAH21hfMn LEFT VENTRICLE The left ventricle is normal size. There is mild concentric left ventricular hypertrophy. The left ventricular function is normal. The left ventricular ejection fraction is within the normal range. There is normal LV segmental wall motion. The left ventricular diastolic function is normal. RIGHT VENTRICLE The right ventricle is normal size. There is normal right ventricular wall thickness. The right ventricular systolic function is normal. ATRIA The left atrium size is normal. The right atrium size is normal. AORTIC VALVE The aortic valve is severely thickened. There is mild aortic regurgitation. MITRAL VALVE The mitral valve is severly thickened. a vegitation can not be completely ruled out TRICUSPID VALVE There is moderate pulmonary hypertension. PERICARDIAL EFFUSION There is a small loculated posterior pericardial effusion. <Conclusion> The left ventricle is normal size. There is mild concentric left ventricular hypertrophy. The left ventricular function is normal. The left ventricular ejection fraction is within the normal range. There is normal LV segmental wall motion. The aortic valve is severely thickened. There is mild aortic regurgitation. The mitral valve is severly thickened. a vegitation can not be completely ruled out
--- NOTE | 2016-10-22 18:08 | CARD ---
APPROVED REPORT EKG Measurement Heart [id number] <Conclusion> Sinus rhythm with occasional premature ventricular complexes Nonspecific T wave abnormality Prolonged QT Abnormal ECG
[2016-10-22] MEDS: Dextrose 5%/0.45% NS 1,000 ML IV SCH (18:15)
[2016-10-23 06:43] LABS: BASO % 0.3 % (0.0-2.0); EOS % 0.4 % (0.0-4.0); LYMPH # 0.7 K/uL (1.0-4.3); LYMPH % 6.6 % (20.0-40.0); MEAN CELL VOLUME 85.2 fL (81.0-99.0); MEAN CORPUSCULAR HEMOGLOBIN 27.3 pg (27.0-31.0); MEAN CORPUSCULAR HGB CONC 32.1 g/dL (33.0-37.0); MEAN PLATELET VOLUME 9.3 fL (7.2-11.7); MONO # 0.5 K/uL (0.0-0.8); MONO % 5.4 % (0.0-10.0); PLATELET COUNT 138 K/uL (130-400); RED CELL DISTRIBUTION WIDTH 15.5 % (11.5-14.5); WHITE BLOOD COUNT 10.1 K/uL (4.8-10.8)
[2016-10-23 07:48] LABS: POTASSIUM 4.8 mmol/L (3.6-5.2)
--- NOTE | 2016-10-23 07:49 | CP.PCM.PN ---
<Mary CarmenGauravmynor - Last Filed: 10/23/16 15:46> Subjective - Date & Time of Evaluation Date of Evaluation: 10/23/16 Time of Evaluation: 07:15 - Subjective Subjective: PGY 1 Medicine note- Dr. Smith's service Pt seen and examined in no acute distress. She states that her appetite is mildly improved. She was able to tolerate most of her dinner per nursing team. She denies abdominal pain at this time as well as chest pain, palpitations, shortness of breath, urinary changes, diarrhea or constipation at this time. Objective - Vital Signs/Intake and Output Vital Signs (last 24 hours): Temp Pulse Resp BP Pulse Ox 99.5 F 99 H 20 171/73 H 96 10/22/16 23:45 10/23/16 00:00 10/22/16 23:35 10/22/16 23:35 10/22/16 23:35 - Medications Medications: Current Medications Aspirin (Ecotrin) 81 mg PO DAILY [facility] Last Admin: 10/22/16 09:17 Dose: 81 mg Ferrous Sulfate (Feosol) 325 mg PO BID [facility] Last Admin: 10/22/16 18:04 Dose: 325 mg Heparin Sodium (Porcine) (Heparin) 5,000 units SC Q8 [facility] Last Admin: 10/22/16 21:15 Dose: Not Given Azithromycin 500 mg/ Sodium (Chloride) 250 mls @ 250 mls/hr IVPB Q24H [facility] Last Admin: 10/22/16 13:42 Dose: 250 mls/hr Ceftriaxone Sodium 1 gm/ (Sodium Chloride) 100 mls @ 100 mls/hr IVPB DAILY [facility] Last Admin: 10/22/16 09:16 Dose: 100 mls/hr Insulin Human Regular (Novolin R) 0 unit SC ACHS [facility] PRN Reason: Protocol Last Admin: 10/22/16 22:12 Dose: 2 unit Labetalol HCl (Trandate) 200 mg PO BID [facility] Last Admin: 10/22/16 18:04 Dose: 200 mg Lisinopril (Zestril) 5 mg PO DAILY [facility] Last Admin: 10/22/16 09:17 Dose: 5 mg Ondansetron HCl (Zofran Inj) 4 mg IVP Q6 PRN PRN Reason: Nausea/Vomiting Last Admin: 10/21/16 12:47 Dose: 4 mg Pantoprazole Sodium (Protonix Ec Tab) 20 mg PO DAILY [facility] Last Admin: 10/22/16 09:18 Dose: 20 mg - Labs Labs: 10/23/16 06:30 10/22/16 06:58 - Constitutional Appears: Non-toxic, No Acute Distress - Head Exam Head Exam: ATRAUMATIC, NORMAL INSPECTION, NORMOCEPHALIC - Eye Exam Eye Exam: EOMI, Normal appearance, PERRL Pupil Exam: NORMAL ACCOMODATION, PERRL - ENT Exam ENT Exam: Mucous Membranes Moist, Normal Exam - Neck Exam Neck Exam: Normal Inspection - Respiratory Exam Respiratory Exam: Wheezes, NORMAL BREATHING PATTERN - Cardiovascular Exam Cardiovascular Exam: +S1, +S2 - GI/Abdominal Exam GI & Abdominal Exam: Soft, Normal Bowel Sounds - Extremities Exam Extremities Exam: Full ROM, Normal Capillary Refill. absent: Pedal Edema - Back Exam Back Exam: Full ROM - Neurological Exam Neurological Exam: Alert, Awake, CN II-XII Intact, Oriented x3 - Psychiatric Exam Psychiatric exam: Normal Affect, Normal Mood - Skin Skin Exam: Dry, Intact, Normal Color, Warm Additional comments: venous stasis changes in lower extremities, b/l Assessment and Plan - Assessment and Plan (Free Text) Assessment: Diabetes Mellitus Hypoglycemia on admission now resolved, Cont to monitor. Patient's sugar on the higher end of normal. Previously on ISS Low dose- increased to high dosing. Encourage intake. Diet improved last night per nursing although patient states that she still does not have an appetite. She is unsure of the nature of this presentation. Status: Acute Anorexia with Weight Loss Hx of colon or stomach cancer- prev treated CT chest, abd,pelvis w/o contrast- no apparent mass noted. thickening of rectal wall noted; mild stranding of perirectal fat; underlying proctitis can be considered. Surgical suture lines noted in bowel area. Refer to complete report Dietary supplements. Calorie count GI referral to Dr. Bee- F/U Pneumonia Assessment & Plan: Zithromax, patient is afebrile with no white count. Chest XRAY 10/23: Bilateral pleural effusions ( new ) Lasix 40mg IV once given Monitor Status: Acute UTI (urinary tract infection) Assessment & Plan: IV Rocephin, urine culture negative, blood culture no growth to date Status: Acute Chronic kidney disease (CKD) Assessment & Plan: Dr. Martinez consulted, patient may need dialysis at some point in the future; On procrit, PTH 163 Status: Chronic Hypertension Assessment & Plan: Labetalol 200 mg PO BID, Zestril 5 mg PO daily Echo (10/22) approx greater than 50% EF; severely thickened mitral valve; cannot rule out vegetation; aortic valve severely thickened. refer to full report. 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 Ferrous sulfate daily Monitor Status: Chronic Hyperkalemia Assessment & Plan: Resolved Cont to monitor Prophylactic measure Assessment & Plan: Heparin SC Q8 PPI PT/OT eval- F/U OOB to chair Status: Acute <Yamileth Smith V - Last Filed: 10/24/16 15:24> Objective - Vital Signs/Intake and Output Vital Signs (last 24 hours): Temp Pulse Resp BP Pulse Ox 99.8 F H 94 H 18 150/67 95 10/24/16 08:43 10/24/16 08:43 10/24/16 08:43 10/24/16 08:43 10/24/16 08:43 Intake and Output: 10/24/16 10/24/16 06:59 18:59 Intake Total 240 Balance 240 - Medications Medications: Current Medications Aspirin (Ecotrin) 81 mg PO DAILY [facility] Last Admin: 10/24/16 10:56 Dose: 81 mg Ferrous Sulfate (Feosol) 325 mg PO BID [facility] Last Admin: 10/24/16 10:56 Dose: 325 mg Heparin Sodium (Porcine) (Heparin) 5,000 units SC Q8 [facility] Last Admin: 10/24/16 13:15 Dose: 5,000 units Azithromycin 500 mg/ Sodium (Chloride) 250 mls @ 250 mls/hr IVPB Q24H [facility] Last Admin: 10/24/16 10:59 Dose: 250 mls/hr Ceftriaxone Sodium 1 gm/ (Sodium Chloride) 100 mls @ 100 mls/hr IVPB DAILY [facility] Last Admin: 10/24/16 10:56 Dose: 100 mls/hr Insulin Human Regular (Novolin R) 0 unit SC ACHS [facility] PRN Reason: Protocol Last Admin: 10/24/16 11:10 Dose: 12 unit Labetalol HCl (Trandate) 200 mg PO BID [facility] Last Admin: 10/24/16 10:56 Dose: 200 mg Lisinopril (Zestril) 5 mg PO DAILY [facility] Last Admin: 10/24/16 10:56 Dose: 5 mg Megestrol Acetate (Megace) 40 mg PO DAILY [facility] Last Admin: 10/24/16 10:55 Dose: 40 mg Ondansetron HCl (Zofran Inj) 4 mg IVP Q6 PRN PRN Reason: Nausea/Vomiting Last Admin: 10/21/16 12:47 Dose: 4 mg Pantoprazole Sodium (Protonix Ec Tab) 20 mg PO DAILY [facility] Last Admin: 10/24/16 10:56 Dose: 20 mg - Labs Labs: 10/24/16 07:16 10/24/16 07:16 Attending/Attestation - Attestation I have personally seen and examined this patient.: Yes I have fully participated in the care of the patient.: Yes I have reviewed all pertinent clinical information, including history, physical exam and plan: Yes Notes (Text): This is late computer entry for 10/23/16. Patient seen, examined, and case discussed with day-time resident. Patient reporting lack of appetite and not eating. Patient ordered for calorie count, nutritional supplements, and GI consult to see if patient requires peg tube. Will follow-up with patient's primary care doctor and family in regards to prior history of colon vs stomach cancer. Assessment/Plan 1) Pneumonia * Chest xray (10/20/16) Diffuse bilateral infiltrates likely pulmonary edema/CHF * Chest xray (10/23/16): new bilateral pleural effusions; persistent bilateral multifocal infiltrates * Chest/Abdomen/Pelvis (10/22/16): bilateral moderate size pleural effusion with associated compressive atelectasis. Bilateral upper lobe airspace patchy opacities. Minimal perihepatic fluid. Scattered calcifications in the left breast * Rocephin 1 gram IV qdaily (active since 10/21/16) * Azithromycin 500mg IV Q24 hours (active since 10/21/16) * Blood cultures (10/20/16): no growth thus far X2 * Urine culture (10/20/16): no growth * monitor CBC, and temperature 2) Metabolic encephalopathy * Etiologies including: hypoglycemia, pneumonia, and urinary tract infection 3) Chronic Kidney Disease * Nephrology (Dr. Martinez) on the case * monitor BUN/Cr 4) UTI (urinary tract infection) * Rocephin 1 gram IV qdaily (active since 10/21/16) * Urine culture (10/20/16): no growth * Abnormal UA (10/20/16): positive protein, glucose, blood, and pyuria, hematuria 5) Hypertension Assessment & Plan: * Labetalol 200 mg PO BID, Zestril 5 mg PO daily * Monitor vital signs * Echo (10/22) approx greater than 50% EF; severely thickened mitral valve; cannot rule out vegetation; aortic valve severely thickened. refer to full report 6) Anemia Assessment & Plan: * suspecting secondary to anemia of chronic kidney disease * monitor H/H * Feosol 325mg PO bid 7) Unintentional weight loss; hx of colon cancer * Monitor calorie counts * GI consult (Dr. Bee) on board * CT chest, abd,pelvis w/o contrast- no apparent mass noted. thickening of rectal wall noted; mild stranding of perirectal fat; underlying proctitis can bconsidered. Surgical suture lines noted in bowel area. Refer to complete report 8) Prophylactic measure Assessment & Plan: * Heparin SC Q8 hours * Protonix 40mg PO daily * PT/OT eval- F/U * OOB to chair Status: Acute
[2016-10-23 07:50] LABS: BILIRUBIN,TOTAL 0.8 mg/dL (0.2-1.3)
[2016-10-23 07:51] LABS: ALB/GLOB RATIO 1.1 (1.0-2.1); TOTAL PROTEIN 6.5 g/dL (6.3-8.3)
[2016-10-23 07:52] LABS: CALCIUM 8.6 mg/dl (8.6-10.4); MAGNESIUM 1.9 mg/dL (1.6-2.3)
[2016-10-23] MEDS: (Novolin R) Insulin Human Regular 100 units/ml vial SC SCH ×4 (08:05→22:28)
[2016-10-23 09:14] LABS: BASOPHIL 2 % (0-2); NEUTROPHIL 83 % (50-75); TOTAL CELLS COUNTED 100
[2016-10-23] MEDS: Pantoprazole 20 mg EC Tab PO SCH (09:20)
--- NOTE | 2016-10-23 10:40 | CP.PCM.PN ---
Subjective - Date & Time of Evaluation Date of Evaluation: 10/23/16 Time of Evaluation: 10:00 - Subjective Subjective: Appears moderately dyspneic @ 45 degrees Objective - Vital Signs/Intake and Output Vital Signs (last 24 hours): Temp Pulse Resp BP Pulse Ox 98.6 F 101 H 20 178/66 H 95 10/23/16 07:19 10/23/16 07:19 10/23/16 07:19 10/23/16 07:19 10/23/16 07:19 - Medications Medications: Current Medications Aspirin (Ecotrin) 81 mg PO DAILY [facility] Last Admin: 10/23/16 09:19 Dose: 81 mg Ferrous Sulfate (Feosol) 325 mg PO BID [facility] Last Admin: 10/23/16 09:19 Dose: 325 mg Heparin Sodium (Porcine) (Heparin) 5,000 units SC Q8 [facility] Last Admin: 10/22/16 21:15 Dose: Not Given Azithromycin 500 mg/ Sodium (Chloride) 250 mls @ 250 mls/hr IVPB Q24H [facility] Last Admin: 10/22/16 13:42 Dose: 250 mls/hr Ceftriaxone Sodium 1 gm/ (Sodium Chloride) 100 mls @ 100 mls/hr IVPB DAILY [facility] Last Admin: 10/23/16 09:21 Dose: 100 mls/hr Insulin Human Regular (Novolin R) 0 unit SC ACHS [facility] PRN Reason: Protocol Labetalol HCl (Trandate) 200 mg PO BID [facility] Last Admin: 10/23/16 09:19 Dose: 200 mg Lisinopril (Zestril) 5 mg PO DAILY [facility] Last Admin: 10/23/16 09:20 Dose: 5 mg Ondansetron HCl (Zofran Inj) 4 mg IVP Q6 PRN PRN Reason: Nausea/Vomiting Last Admin: 10/21/16 12:47 Dose: 4 mg Pantoprazole Sodium (Protonix Ec Tab) 20 mg PO DAILY [facility] Last Admin: 10/23/16 09:20 Dose: 20 mg - Labs Labs: 10/23/16 06:30 10/23/16 06:48 - Respiratory Exam Respiratory Exam: Respiratory Distress Additional comments: bibasilar crackles - Cardiovascular Exam Cardiovascular Exam: REGULAR RHYTHM - Extremities Exam Additional comments: No edema Assessment and Plan - Assessment and Plan (Free Text) Assessment: Shortness of breath acute onset. CHF vs pneumonia B/L pleural effusions Stage 1V kidney dis stable K+ is controlled IDDM Plan: Will order IV Lasix, CXR
[2016-10-23] MEDS: Azithromycin 500 MG in Sodium Chloride 0.9% 250 ML IVPB SCH (11:32)
--- NOTE | 2016-10-23 11:52 | RAD ---
HISTORY: Shortness of breath. Portable study 10:40. COMPARISON: 10/20/2016. Single-view chest. FINDINGS: LUNGS: Stable multifocal airspace disease bilaterally. PLEURA: Increasing bilateral pleural effusions. CARDIOVASCULAR: No significant interval change compared to the prior examination(s). OSSEOUS STRUCTURES: No significant abnormalities. VISUALIZED UPPER ABDOMEN: Normal. OTHER FINDINGS: None. IMPRESSION: Persistent bilateral multifocal infiltrates. New bilateral pleural effusions.
--- NOTE | 2016-10-23 17:32 | CP.PCM.CON ---
History of Present Illness - History of Present Illness History of Present Illness: I was asked today tosee patient for poor appetite and consider PEG. Pt was admitted a few days ago with confusion and hypoglycemia. Found to have pneumonia, UTI, She has had a poor appetite- not eating well. She reports SOB this am. Reports colon cancer surgery years ago- had last follow up col[place]ocopy [place] [facility] [place] ago. SH: No smoking. no etoh. FH- noted. Review of Systems - Constitutional Constitutional: Anorexia, Fatigue, Weakness. absent: Weight Gain - Cardiovascular Cardiovascular: Dyspnea - Respiratory Respiratory: Dyspnea. absent: Hemoptysis, Wheezing - Gastrointestinal Gastrointestinal: absent: Abdominal Pain, Coffee Ground Emesis, Constipation, Diarrhea, Dysphagia, Hematemesis, Hematochezia, Loose Stools, Melena, Vomiting - Genitourinary Genitourinary: absent: Hematuria - Musculoskeletal Musculoskeletal: absent: Myalgias - Integumentary Integumentary: absent: Jaundice - Neurological Neurological: Confusion. absent: Convulsions Past Patient History - Infectious Disease Hx of Infectious Diseases: None - Tetanus Immunizations Tetanus Immunization: Unknown - Past Medical History & Family History Past Medical History?: Yes - Past Social History Smoking Status: Never Smoked - CARDIAC Hx Hypercholesterolemia: Yes Hx Hypertension: Yes Hx Peripheral Edema: Yes - PULMONARY Hx Asthma: Yes (Dx 15 yrs ago,does not use home o2 anymore) Hx Pneumonia: Yes (x2) - NEUROLOGICAL Hx Transient Ischemic Attacks (TIA): Yes (x3 about 20 yrs ago, 10 yrs ago, 7 yrs ago) - HEENT Hx HEENT Problems: Yes Hx Cataracts: Yes (Seferino IOL) - RENAL Hx Chronic Kidney Disease: Yes - ENDOCRINE/METABOLIC Hx Diabetes Mellitus Type 2: Yes - HEMATOLOGICAL/ONCOLOGICAL Hx Anemia: Yes - INTEGUMENTARY Hx Dermatological Problems: Yes Other/Comment: Bilateral lower legs dry skin - MUSCULOSKELETAL/RHEUMATOLOGICAL Hx Arthritis: Yes Hx Fractures: Yes (Right ankle. No sx, casted) - GASTROINTESTINAL Hx Gastrointestinal Disorders: Yes Other/Comment: Hx colon cancer - GENITOURINARY/GYNECOLOGICAL Hx Genitourinary Disorders: No - PSYCHIATRIC Hx Substance Use: No - SURGICAL HISTORY Hx Cataract Extraction: Yes (LEFT) - ANESTHESIA Hx Anesthesia: Yes Hx Anesthesia Reactions: No Hx Malignant Hyperthermia: No Meds Allergies/Adverse Reactions: Allergies Allergy/AdvReac Type Severity Reaction Status Date / Time Penicillins Allergy Intermediate RASH Verified 06/05/16 11:49 - Medications Medications: Current Medications Aspirin (Ecotrin) 81 mg PO DAILY [facility] Last Admin: 10/23/16 09:19 Dose: 81 mg Ferrous Sulfate (Feosol) 325 mg PO BID [facility] Last Admin: 10/23/16 09:19 Dose: 325 mg Heparin Sodium (Porcine) (Heparin) 5,000 units SC Q8 [facility] Last Admin: 10/23/16 13:29 Dose: 5,000 units Azithromycin 500 mg/ Sodium (Chloride) 250 mls @ 250 mls/hr IVPB Q24H [facility] Last Admin: 10/23/16 11:32 Dose: 250 mls/hr Ceftriaxone Sodium 1 gm/ (Sodium Chloride) 100 mls @ 100 mls/hr IVPB DAILY [facility] Last Admin: 10/23/16 09:21 Dose: 100 mls/hr Insulin Human Regular (Novolin R) 0 unit SC ACHS [facility] PRN Reason: Protocol Last Admin: 10/23/16 11:30 Dose: 4 unit Labetalol HCl (Trandate) 200 mg PO BID [facility] Last Admin: 10/23/16 09:19 Dose: 200 mg Lisinopril (Zestril) 5 mg PO DAILY [facility] Last Admin: 10/23/16 09:20 Dose: 5 mg Ondansetron HCl (Zofran Inj) 4 mg IVP Q6 PRN PRN Reason: Nausea/Vomiting Last Admin: 10/21/16 12:47 Dose: 4 mg Pantoprazole Sodium (Protonix Ec Tab) 20 mg PO DAILY [facility] Last Admin: 10/23/16 09:20 Dose: 20 mg Physical Exam - Constitutional Additional comments: weak - Neck Exam Neck exam: Negative for: Tenderness - Respiratory Exam Respiratory Exam: Rales - Cardiovascular Exam Cardiovascular Exam: RRR - GI/Abdominal Exam GI & Abdominal Exam: Normal Bowel Sounds, Soft. absent: Guarding, Mass, Rebound , Tenderness - Extremities Exam Extremities exam: Positive for: pedal edema - Neurological Exam Neurological exam: Alert, Oriented x3 Additional comments: weak Results - Vital Signs Recent Vital Signs: Last Vital Signs Temp 98.6 F 10/23/16 15:00 Pulse 91 H 10/23/16 16:00 Resp 20 10/23/16 15:00 BP 148/71 10/23/16 15:00 Pulse Ox 96 10/23/16 16:35 - Labs Result Diagrams: 10/23/16 06:30 10/23/16 06:48 Labs: Laboratory Results - last 24 hr 10/22/16 10/23/16 10/23/16 21:40 01:48 06:30 WBC 10.1 RBC 3.17 L Hgb 8.7 L Hct 27.0 L MCV 85.2 MCH 27.3 MCHC 32.1 L RDW 15.5 H Plt Count 138 MPV 9.3 Neut % (Auto) 87.3 H Lymph % (Auto) 6.6 L [place] % (Auto) 5.4 Eos % (Auto) 0.4 Baso % (Auto) 0.3 Neut # 8.9 H Lymph # 0.7 L [place] # 0.5 Eos # 0.0 Baso # 0.0 Neutrophils % (Manual) 83 H Lymphocytes % (Manual) 10 L Monocytes % (Manual) 5 Basophils % (Manual) 2 Platelet Estimate Normal Hypochromasia (manual) Slight Poikilocytosis (manual Slight Anisocytosis (manual) Slight Tear Drop Cells Slight Ovalocytes Slight Elías Cells Slight Sodium Potassium Chloride Carbon Dioxide Anion Gap BUN Creatinine Est GFR ( Amer) Est GFR (Non-Af Amer) POC Glucose (mg/dL) 371 H 302 H Random Glucose Calcium Phosphorus Magnesium Total Bilirubin AST ALT Alkaline Phosphatase NT-Pro-B Natriuret Pep Total Protein Albumin Globulin Albumin/Globulin Ratio 10/23/16 10/23/16 10/23/16 06:33 06:48 11:53 WBC RBC Hgb Hct MCV MCH MCHC RDW Plt Count MPV Neut % (Auto) Lymph % (Auto) [place] % (Auto) Eos % (Auto) Baso % (Auto) Neut # Lymph # [place] # Eos # Baso # Neutrophils % (Manual) Lymphocytes % (Manual) Monocytes % (Manual) Basophils % (Manual) Platelet Estimate Hypochromasia (manual) Poikilocytosis (manual Anisocytosis (manual) Tear Drop Cells Ovalocytes Elías Cells Sodium 138 Potassium 4.8 Chloride 108 H Carbon Dioxide 17 L Anion Gap 18 BUN 42 H Creatinine 3.5 H Est GFR ( Amer) 15 Est GFR (Non-Af Amer) 13 POC Glucose (mg/dL) 254 H 315 H Random Glucose 243 H Calcium 8.6 Phosphorus 4.0 Magnesium 1.9 Total Bilirubin 0.8 AST 20 ALT 23 Alkaline Phosphatase 77 NT-Pro-B Natriuret Pep Total Protein 6.5 Albumin 3.4 L Globulin 3.1 Albumin/Globulin Ratio 1.1 10/23/16 10/23/16 14:07 16:02 WBC RBC Hgb Hct MCV MCH MCHC RDW Plt Count MPV Neut % (Auto) Lymph % (Auto) [place] % (Auto) Eos % (Auto) Baso % (Auto) Neut # Lymph # [place] # Eos # Baso # Neutrophils % (Manual) Lymphocytes % (Manual) Monocytes % (Manual) Basophils % (Manual) Platelet Estimate Hypochromasia (manual) Poikilocytosis (manual Anisocytosis (manual) Tear Drop Cells Ovalocytes Elías Cells Sodium Potassium Chloride Carbon Dioxide Anion Gap BUN Creatinine Est GFR ( Amer) Est GFR (Non-Af Amer) POC Glucose (mg/dL) 396 H Random Glucose Calcium Phosphorus Magnesium Total Bilirubin AST ALT Alkaline Phosphatase NT-Pro-B Natriuret Pep 77269 H Total Protein Albumin Globulin Albumin/Globulin Ratio Assessment & Plan (1) Poor appetite Assessment and Plan: Likely related to underlying current medical conditions. I feel when her medical condition improves, she will eat better. Status: Acute (2) Altered mental status Assessment and Plan: Had hypoglycemia. Also pneumonia and pl effusions. and CRF, and anemia Status: Acute (3) Diabetic hypoglycemia Status: Acute (4) Pneumonia Status: Acute (5) UTI (urinary tract infection) Status: Acute (6) Anemia Assessment and Plan: Mercedes chronic disease. CRF. Status: Chronic (7) Chronic kidney disease (CKD) Assessment and Plan: Had recent AV shunt placed LUE Status: Chronic (8) Hypertension Status: Chronic (9) Colon cancer Assessment and Plan: Pt reports h/o colon cancer in past. She reports had f/u colonoscopy 3 yrs ago. Status: Acute
--- NOTE | 2016-10-24 07:16 | CP.PCM.PN ---
<Yamileth Smith V - Last Filed: 10/24/16 15:49> Objective - Vital Signs/Intake and Output Vital Signs (last 24 hours): Temp Pulse Resp BP Pulse Ox 99.8 F H 94 H 18 150/67 95 10/24/16 08:43 10/24/16 08:43 10/24/16 08:43 10/24/16 08:43 10/24/16 08:43 Intake and Output: 10/24/16 10/24/16 06:59 18:59 Intake Total 240 Balance 240 - Medications Medications: Current Medications Aspirin (Ecotrin) 81 mg PO DAILY [facility] Last Admin: 10/24/16 10:56 Dose: 81 mg Ferrous Sulfate (Feosol) 325 mg PO BID [facility] Last Admin: 10/24/16 10:56 Dose: 325 mg Heparin Sodium (Porcine) (Heparin) 5,000 units SC Q8 [facility] Last Admin: 10/24/16 13:15 Dose: 5,000 units Azithromycin 500 mg/ Sodium (Chloride) 250 mls @ 250 mls/hr IVPB Q24H [facility] Last Admin: 10/24/16 10:59 Dose: 250 mls/hr Ceftriaxone Sodium 1 gm/ (Sodium Chloride) 100 mls @ 100 mls/hr IVPB DAILY [facility] Last Admin: 10/24/16 10:56 Dose: 100 mls/hr Insulin Human Regular (Novolin R) 0 unit SC ACHS [facility] PRN Reason: Protocol Last Admin: 10/24/16 11:10 Dose: 12 unit Labetalol HCl (Trandate) 200 mg PO BID [facility] Last Admin: 10/24/16 10:56 Dose: 200 mg Lisinopril (Zestril) 5 mg PO DAILY [facility] Last Admin: 10/24/16 10:56 Dose: 5 mg Megestrol Acetate (Megace) 40 mg PO DAILY [facility] Last Admin: 10/24/16 10:55 Dose: 40 mg Ondansetron HCl (Zofran Inj) 4 mg IVP Q6 PRN PRN Reason: Nausea/Vomiting Last Admin: 10/21/16 12:47 Dose: 4 mg Pantoprazole Sodium (Protonix Ec Tab) 20 mg PO DAILY [facility] Last Admin: 10/24/16 10:56 Dose: 20 mg - Labs Labs: 10/24/16 07:16 10/24/16 07:16 Attending/Attestation - Attestation I have personally seen and examined this patient.: Yes I have fully participated in the care of the patient.: Yes I have reviewed all pertinent clinical information, including history, physical exam and plan: Yes Notes (Text): Patient seen, examined, and case discussed with day-time resident. Patient started on nutritional supplement, tolerating over night, monitor calorie counts. Patient reports lack of desire to eat. No family present at bedside. Patient not appropriate for peg at this supplement. Will monitor eating ; may need NGT tube if does have adequate nutrition. Patient started on Megace to help stimulant appetite. Psych consulted to determine if there is an element of depression as well. Assessment/Plan 1) Pneumonia * Chest xray (10/20/16) Diffuse bilateral infiltrates likely pulmonary edema/CHF * Chest xray (10/23/16): new bilateral pleural effusions; persistent bilateral multifocal infiltrates * Chest/Abdomen/Pelvis (10/22/16): bilateral moderate size pleural effusion with associated compressive atelectasis. Bilateral upper lobe airspace patchy opacities. Minimal perihepatic fluid. Scattered calcifications in the left breast * Rocephin 1 gram IV qdaily (active since 10/21/16) * Azithromycin 500mg IV Q24 hours (active since 10/21/16) * Blood cultures (10/20/16): no growth X2 * Urine culture (10/20/16): no growth * monitor CBC, and temperature * Tmax: 99.8F; order for procalcitonin 2) Pleural effusions * Chest xray (10/20/16) Diffuse bilateral infiltrates likely pulmonary edema/CHF * Chest xray (10/23/16): new bilateral pleural effusions; persistent bilateral multifocal infiltrates * Chest/Abdomen/Pelvis (10/22/16): bilateral moderate size pleural effusion with associated compressive atelectasis. Bilateral upper lobe airspace patchy opacities. Minimal perihepatic fluid. Scattered calcifications in the left breast * Lasix 40mg IV q daily 3) Metabolic encephalopathy * Etiologies including: hypoglycemia, pneumonia, and urinary tract infection 4) Chronic Kidney Disease * Nephrology (Dr. Martinez) on the case * monitor BUN/Cr 5) UTI (urinary tract infection) * Rocephin 1 gram IV qdaily (active since 10/21/16) * Urine culture (10/20/16): no growth * Abnormal UA (10/20/16): positive protein, glucose, blood, and pyuria, hematuria 6) Hypertension Assessment & Plan: * Labetalol 200 mg PO BID, Zestril 5 mg PO daily * Monitor vital signs * Echo (10/22) approx greater than 50% EF; severely thickened mitral valve; cannot rule out vegetation; aortic valve severely thickened. refer to full report 7) Diabetes * [id number]: 7.0 * Patient is off insulin regimen given she came in for altered mental status secondary to hypoglycemia * Monitor nutrition prior to starting insulin regimen * Start Lantus 5 units subqHS * start novolog insulin sliding scale * monitor accuchecks QAC and HS 8) Anemia Assessment & Plan: * suspecting secondary to anemia of chronic kidney disease * monitor H/H * Feosol 325mg PO bid * Order for iron studies, reti count, b12, folate, haptoglobin, stool occult blood, ferritin 9) Unintentional weight loss; hx of colon cancer * Monitor calorie counts * GI consult (Dr. Bee) on board * CT chest, abd,pelvis w/o contrast- no apparent mass noted. thickening of rectal wall noted; mild stranding of perirectal fat; underlying proctitis can bconsidered. Surgical suture lines noted in bowel area. Refer to complete report 10) Prophylactic measure Assessment & Plan: * Heparin SC Q8 hours * Protonix 40mg PO daily * PT/OT eval- F/U * OOB to chair * IVC filter Status: Acute <Jenni Lentz - Last Filed: 10/24/16 16:27> Subjective - Date & Time of Evaluation Date of Evaluation: 10/24/16 Time of Evaluation: 07:40 - Subjective Subjective: PGY 1 Medicine Note- Dr. Smith's service Pt seen and examined earlier. Patient still a bit somnolent. Patient states that she consumed the dietary supplement given. She still admits to having poor appetite. She denies any abdominal pain, subjective chills, nausea, vomiting, chest pain, dyspnea, palpitations, paresthesias, headaches at this time. Objective - Vital Signs/Intake and Output Vital Signs (last 24 hours): Temp Pulse Resp BP Pulse Ox 99.0 F 88 20 151/69 H 96 10/23/16 23:35 10/24/16 00:10 10/23/16 23:35 10/23/16 23:35 10/23/16 23:35 Intake and Output: 10/24/16 10/24/16 06:59 18:59 Intake Total 240 Balance 240 - Medications Medications: Current Medications Aspirin (Ecotrin) 81 mg PO DAILY [facility] Last Admin: 10/23/16 09:19 Dose: 81 mg Ferrous Sulfate (Feosol) 325 mg PO BID [facility] Last Admin: 10/23/16 18:17 Dose: 325 mg Heparin Sodium (Porcine) (Heparin) 5,000 units SC Q8 [facility] Last Admin: 10/24/16 05:40 Dose: Not Given Azithromycin 500 mg/ Sodium (Chloride) 250 mls @ 250 mls/hr IVPB Q24H [facility] Last Admin: 10/23/16 11:32 Dose: 250 mls/hr Ceftriaxone Sodium 1 gm/ (Sodium Chloride) 100 mls @ 100 mls/hr IVPB DAILY [facility] Last Admin: 10/23/16 09:21 Dose: 100 mls/hr Insulin Human Regular (Novolin R) 0 unit SC ACHS [facility] PRN Reason: Protocol Last Admin: 10/23/16 22:28 Dose: 2 unit Labetalol HCl (Trandate) 200 mg PO BID [facility] Last Admin: 10/23/16 18:17 Dose: 200 mg Lisinopril (Zestril) 5 mg PO DAILY [facility] Last Admin: 10/23/16 09:20 Dose: 5 mg Ondansetron HCl (Zofran Inj) 4 mg IVP Q6 PRN PRN Reason: Nausea/Vomiting Last Admin: 10/21/16 12:47 Dose: 4 mg Pantoprazole Sodium (Protonix Ec Tab) 20 mg PO DAILY [facility] Last Admin: 10/23/16 09:20 Dose: 20 mg - Labs Labs: 10/23/16 06:30 10/23/16 06:48 - Constitutional Appears: Non-toxic, No Acute Distress - Head Exam Head Exam: ATRAUMATIC, NORMAL INSPECTION, NORMOCEPHALIC - Eye Exam Eye Exam: EOMI, Normal appearance, PERRL Pupil Exam: NORMAL ACCOMODATION, PERRL - ENT Exam ENT Exam: Mucous Membranes Moist, Normal Exam - Neck Exam Neck Exam: Full ROM, Normal Inspection - Respiratory Exam Respiratory Exam: Wheezes, NORMAL BREATHING PATTERN - Cardiovascular Exam Cardiovascular Exam: REGULAR RHYTHM, +S1, +S2 - GI/Abdominal Exam GI & Abdominal Exam: Soft, Normal Bowel Sounds - Extremities Exam Extremities Exam: Full ROM, Normal Inspection - Back Exam Back Exam: Full ROM, NORMAL INSPECTION - Neurological Exam Neurological Exam: Alert, Awake, CN II-XII Intact, Oriented x3 - Psychiatric Exam Psychiatric exam: Normal Affect, Normal Mood - Skin Skin Exam: Dry, Intact, Normal Color, Warm Assessment and Plan - Assessment and Plan (Free Text) Assessment: Pneumonia w/ pleural effusions noted Assessment & Plan: Chest xray (10/23/16): new bilateral pleural effusions; persistent bilateral multifocal infiltrates Zithromax,(Started 10/21/16) Patient with low grade fever of 99.8 in AM. Will monitor temps and check for procalcitonin and repeat cultures if febrile. Rocephin 1 gram IV daily (Started 10/21/16) Blood, urine cultures negative to date. One dose of Lasix 40 mg IV today. Lasix 20 mg IV BID daily Elevated BNP. Status: Acute Diabetes Mellitus Hypoglycemia now resolved, Cont to monitor. Begin Lantus 5 units SC HS ISS high dose Encourage intake Monitor Status: Acute Anorexia with Weight Loss Hx of Colon cancer- prev worked up at [facility] however records could not be located per GI. Monitor calorie counts, Megace given. GI consult (Dr. Bee/Tania) on board. No immediate plans for PEG tube. Encourage patient to eat. Appetite may return upon treatment of underling pneumonia/UTI. NG tube feeds suggested if patient's lack of appetite continued. CT chest, abd,pelvis w/o contrast- no apparent mass noted. thickening of rectal wall noted; mild stranding of perirectal fat; underlying proctitis can bconsidered. Surgical suture lines noted in bowel area. Refer to complete report Consult to Psych (Dr. Powers) to rule out depression as reason for sudden lack of appetite. UTI (urinary tract infection) Assessment & Plan: IV Rocephin, urine culture negative, blood culture no growth to date Status: Acute Chronic kidney disease (CKD) Assessment & Plan: Dr. Martinez consulted, patient may need dialysis at some point in the future; Start procrit, PTH pending Status: Chronic Hypertension Assessment & Plan: Labetalol 200 mg PO BID, Zestril 5 mg PO daily Echo (10/22) approx greater than 50% EF; severely thickened mitral valve; cannot rule out vegetation; aortic valve severely thickened. refer to full report. 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 Ferrous sulfate daily Iron studies- F/U Status: Chronic Hyperkalemia Assessment & Plan: Resolved. Cont to monitor Prophylactic measure Assessment & Plan: Heparin SC Q8 PPI PT/OT eval- F/U OOB to chair Status: Acute
[2016-10-24 07:34] LABS: BASO % 0.5 % (0.0-2.0); EOS # 0.1 K/uL (0.0-0.7); EOS % 1.3 % (0.0-4.0); HEMATOCRIT 26.8 % (34.0-47.0); LYMPH # 0.8 K/uL (1.0-4.3); LYMPH % 8.7 % (20.0-40.0); MEAN CELL VOLUME 85.8 fL (81.0-99.0); MEAN CORPUSCULAR HGB CONC 31.5 g/dL (33.0-37.0); MEAN PLATELET VOLUME 9.6 fL (7.2-11.7); MONO # 0.5 K/uL (0.0-0.8); MONO % 5.5 % (0.0-10.0); PLATELET COUNT 142 K/uL (130-400); RED CELL DISTRIBUTION WIDTH 15.4 % (11.5-14.5); WHITE BLOOD COUNT 9.4 K/uL (4.8-10.8)
[2016-10-24 07:53] LABS: POTASSIUM 4.5 mmol/L (3.6-5.2)
[2016-10-24 07:55] LABS: BILIRUBIN,TOTAL 0.9 mg/dL (0.2-1.3); PHOSPHOROUS 3.9 mg/dL (2.5-4.5); TOTAL PROTEIN 6.6 g/dL (6.3-8.3)
[2016-10-24 07:56] LABS: CALCIUM 8.8 mg/dl (8.6-10.4); MAGNESIUM 1.9 mg/dL (1.6-2.3)
[2016-10-24] MEDS: (Novolin R) Insulin Human Regular 100 units/ml vial SC SCH ×2 (08:15→11:10)
[2016-10-24 09:08] LABS: EOSINOPHIL 1 % (0-4); NEUTROPHIL 86 % (50-75); TOTAL CELLS COUNTED 100
--- NOTE | 2016-10-24 10:16 | CP.PCM.PN ---
Subjective - Date & Time of Evaluation Date of Evaluation: 10/24/16 Time of Evaluation: 10:13 - Subjective Subjective: CC: follow up poor feeding Ate a little bit. Dyspneic, Chronically ill appearing. Objective - Vital Signs/Intake and Output Vital Signs (last 24 hours): Temp Pulse Resp BP Pulse Ox 99.8 F H 94 H 18 150/67 95 10/24/16 08:43 10/24/16 08:43 10/24/16 08:43 10/24/16 08:43 10/24/16 08:43 Intake and Output: 10/24/16 10/24/16 06:59 18:59 Intake Total 240 Balance 240 - Medications Medications: Current Medications Aspirin (Ecotrin) 81 mg PO DAILY [facility] Last Admin: 10/23/16 09:19 Dose: 81 mg Ferrous Sulfate (Feosol) 325 mg PO BID [facility] Last Admin: 10/23/16 18:17 Dose: 325 mg Heparin Sodium (Porcine) (Heparin) 5,000 units SC Q8 [facility] Last Admin: 10/24/16 05:40 Dose: Not Given Azithromycin 500 mg/ Sodium (Chloride) 250 mls @ 250 mls/hr IVPB Q24H [facility] Last Admin: 10/23/16 11:32 Dose: 250 mls/hr Ceftriaxone Sodium 1 gm/ (Sodium Chloride) 100 mls @ 100 mls/hr IVPB DAILY [facility] Last Admin: 10/23/16 09:21 Dose: 100 mls/hr Insulin Human Regular (Novolin R) 0 unit SC ACHS [facility] PRN Reason: Protocol Last Admin: 10/23/16 22:28 Dose: 2 unit Labetalol HCl (Trandate) 200 mg PO BID [facility] Last Admin: 10/23/16 18:17 Dose: 200 mg Lisinopril (Zestril) 5 mg PO DAILY [facility] Last Admin: 10/23/16 09:20 Dose: 5 mg Megestrol Acetate (Megace) 40 mg PO DAILY [facility] Ondansetron HCl (Zofran Inj) 4 mg IVP Q6 PRN PRN Reason: Nausea/Vomiting Last Admin: 10/21/16 12:47 Dose: 4 mg Pantoprazole Sodium (Protonix Ec Tab) 20 mg PO DAILY [facility] Last Admin: 10/23/16 09:20 Dose: 20 mg - Labs Labs: 10/24/16 07:16 10/24/16 07:16 - Constitutional Appears: Chronically Ill - Head Exam Additional comments: Bitemporal wasting - Cardiovascular Exam Cardiovascular Exam: REGULAR RHYTHM - GI/Abdominal Exam GI & Abdominal Exam: Soft. absent: Tenderness Assessment and Plan (1) CHF (congestive heart failure) Status: Acute (2) Colon cancer Assessment & Plan: Attempted to get records from [facility], but they say they have no records on this patient Had Colonoscopy 3 years ago Status: Inactive (3) Poor appetite Assessment & Plan: Due to acute illness Recommend NG feeds if not eating adequately Would not recommend PEG at this point. Will follow. Status: Acute (4) Chronic kidney disease (CKD) Status: Chronic
[2016-10-24] MEDS: Pantoprazole 20 mg EC Tab PO SCH (10:56)
[2016-10-24] MEDS: Azithromycin 500 MG in Sodium Chloride 0.9% 250 ML IVPB SCH (10:59)
--- NOTE | 2016-10-24 12:55 | PCM.PSYCH ---
Initial Psychiatric Evaluation - Initial Psychiatric Evaluation Type of Admission: Voluntary Chief Complaint (in patient's own words): "tired" History of Present Illness and Precipitating Events: The pt is seen, chart reviewed. Consult was requested for her psych presentation. The pt is a 76 yo AAF, living alone, retired [employer] spoke to her daughter too, with pt's permission She is forgetful and inattentive. However, she is oriented x3 Feels anxious but denies depressiona nd no AVH/del elicited She denies drug/alcohol use Self care is questionable but daughter says she was "OK" so far but deteriorating and that she will need mobile homes repairer.. It's likely she is mixing her meds and "forgetting" Past psych hx: Denied Medical hx: Multiple Family psych hx: Denied Current Medications: Active Medications Generic Name Dose Route Start Last Admin Trade Name Freq PRN Reason Stop Dose Admin Aspirin 81 mg 10/21/16 10:00 10/24/16 10:56 Ecotrin PO 81 mg DAILY [facility] Administration Ferrous Sulfate 325 mg 10/22/16 18:00 10/24/16 10:56 Feosol PO 325 mg BID [facility] Administration Heparin Sodium (Porcine) 5,000 units 10/20/16 14:00 10/24/16 05:40 Heparin SC Not Given Q8 [facility] Azithromycin 500 mg/ Sodium 250 mls @ 250 mls/hr 10/21/16 12:00 10/24/16 10: 59 Chloride IVPB 250 mls/hr Q24H [facility] Administration Ceftriaxone Sodium 1 gm/ 100 mls @ 100 mls/hr 10/21/16 10:00 10/24/16 10:56 Sodium Chloride IVPB 100 mls/hr DAILY [facility] Administration Insulin Human Regular 0 unit 10/23/16 11:00 10/24/16 11:10 Novolin R SC 12 unit ACHS [facility] Administration Protocol Labetalol HCl 200 mg 10/20/16 18:00 10/24/16 10:56 Trandate PO 200 mg BID [facility] Administration Lisinopril 5 mg 10/20/16 12:15 10/24/16 10:56 Zestril PO 5 mg DAILY [facility] Administration Megestrol Acetate 40 mg 10/24/16 10:30 10/24/16 10:55 Megace PO 40 mg DAILY [facility] Administration Ondansetron HCl 4 mg 10/20/16 12:55 10/21/16 12:47 Zofran Inj IVP 4 mg Q6 PRN Administration Nausea/Vomiting Pantoprazole Sodium 20 mg 10/21/16 10:00 10/24/16 10:56 Protonix Ec Tab PO 20 mg DAILY [facility] Administration Past Psychiatric History - Past Psychiatric History Previous Treatment History: None Pertinent Medical Hx (Current Medical&Sleep Prob, Allergies): Allergies Allergy/AdvReac Type Severity Reaction Status Date / Time Penicillins Allergy Intermediate RASH Verified 06/05/16 11:49 Aspirin [Ecotrin] 81 mg PO DAILY #0 tabec 05/22/16 Calcitriol [Rocaltrol] 0.25 mcg PO MWF #12 sgl 05/22/16 Furosemide [Lasix] 40 mg PO DAILY #30 tab 05/22/16 Insulin Aspart [Novolog Flexpen] 10 unit SQ BID #0 05/22/16 Labetalol [Trandate] 200 mg PO BID #0 tab 05/22/16 Lisinopril [Zestril] 5 mg PO DAILY #30 tab 05/22/16 Review of Systems - Psychiatric Psychiatric: Change in Appetite, Memory Loss Mental Status Examination - Personal Presentation Personal Presentation: Looks stated age - Affect Affect: Constricted - Reliability in Providing Information Reliability in Providing Information: Poor, due to cognitve impairment - Speech Speech: Organized - Mood Mood: Anxious - Formal Thought Process Formal Thought Process: Perservation - Cognitive Functions Orientation: Person, Place, Time Sensorium: Drowsy Attention/Concentration: Easily distracted Estimate of Intelligence: Average Judgement: Intact, as evidence by: Insight regarding need for hospitalization Memory: Recent impaired, as evidence by: Inability to recall events of the day ( mild), Remote impaired as evidenced by: Inability to recall sig life events - Risk Risk: Diminished functioning DSM 5 DX - DSM 5 DSM 5 Diagnosis: Mild cognitive impairment Anxiety unspecified - Recommended/Plan of Treatment Treatment Recommendations and Plan of Treatment: No psych meds needed for now Support and psychoed Monitor for developing dementia Daughter says she needs home health aid 32 min
[2016-10-24] MEDS ORDERED: (Novolog) Insulin Aspart, Recombinant 100 u/ml 10 ml vial SC SCH (16:30)
--- NOTE | 2016-10-24 16:46 | CP.PCM.PN ---
Subjective - Date & Time of Evaluation Date of Evaluation: 10/24/16 Time of Evaluation: 04:45 - Subjective Subjective: Less sob today Objective - Vital Signs/Intake and Output Vital Signs (last 24 hours): Temp Pulse Resp BP Pulse Ox 99.8 F H 94 H 18 150/67 95 10/24/16 08:43 10/24/16 08:43 10/24/16 08:43 10/24/16 08:43 10/24/16 08:43 Intake and Output: 10/24/16 10/24/16 06:59 18:59 Intake Total 240 Balance 240 - Medications Medications: Current Medications Aspirin (Ecotrin) 81 mg PO DAILY [facility] Last Admin: 10/24/16 10:56 Dose: 81 mg Ferrous Sulfate (Feosol) 325 mg PO BID [facility] Last Admin: 10/24/16 10:56 Dose: 325 mg Furosemide (Lasix) 20 mg IVP BID [facility] Heparin Sodium (Porcine) (Heparin) 5,000 units SC Q8 [facility] Last Admin: 10/24/16 13:15 Dose: 5,000 units Azithromycin 500 mg/ Sodium (Chloride) 250 mls @ 250 mls/hr IVPB Q24H [facility] Last Admin: 10/24/16 10:59 Dose: 250 mls/hr Ceftriaxone Sodium 1 gm/ (Sodium Chloride) 100 mls @ 100 mls/hr IVPB DAILY [facility] Last Admin: 10/24/16 10:56 Dose: 100 mls/hr Insulin Aspart (Novolog) 0 unit SC ACHS [facility] PRN Reason: Protocol Insulin Glargine (Lantus) 5 unit SC HS [facility]PL[facility] Labetalol HCl (Trandate) 200 mg PO BID [facility] Last Admin: 10/24/16 10:56 Dose: 200 mg Lisinopril (Zestril) 5 mg PO DAILY [facility] Last Admin: 10/24/16 10:56 Dose: 5 mg Megestrol Acetate (Megace) 40 mg PO DAILY [facility] Last Admin: 10/24/16 10:55 Dose: 40 mg Ondansetron HCl (Zofran Inj) 4 mg IVP Q6 PRN PRN Reason: Nausea/Vomiting Last Admin: 10/21/16 12:47 Dose: 4 mg Pantoprazole Sodium (Protonix Ec Tab) 20 mg PO DAILY [facility] Last Admin: 10/24/16 10:56 Dose: 20 mg - Labs Labs: 10/24/16 07:16 10/24/16 07:16 - Respiratory Exam Additional comments: Lungs clear - Cardiovascular Exam Cardiovascular Exam: REGULAR RHYTHM - Extremities Exam Additional comments: No edema Assessment and Plan - Assessment and Plan (Free Text) Assessment: Stable Stage 1V kidney disease ? pneumonia B/L pleural effusions Anemia of CKD Plan: Continue to monitor renal function Maintain on lasix
[2016-10-24 16:50] LABS: IRON 22 ug/dL (37-170)
[2016-10-24 17:59] LABS: FOLATE 10.6 ng/mL
[2016-10-24] MEDS: (Lantus) Insulin Glargine, Recombinant SC SCH (22:31)
[2016-10-24] MEDS: (Novolog) Insulin Aspart, Recombinant 100 u/ml 10 ml vial SC SCH (22:32)
[2016-10-25 07:25] LABS: BASO % 0.6 % (0.0-2.0); EOS # 0.3 K/uL (0.0-0.7); EOS % 3.3 % (0.0-4.0); HEMATOCRIT 24.4 % (34.0-47.0); LYMPH # 0.9 K/uL (1.0-4.3); LYMPH % 10.7 % (20.0-40.0); MEAN CELL VOLUME 84.5 fL (81.0-99.0); MEAN CORPUSCULAR HEMOGLOBIN 27.1 pg (27.0-31.0); MEAN CORPUSCULAR HGB CONC 32.1 g/dL (33.0-37.0); MEAN PLATELET VOLUME 9.5 fL (7.2-11.7); MONO # 0.4 K/uL (0.0-0.8); MONO % 5.3 % (0.0-10.0); RED CELL DISTRIBUTION WIDTH 15.4 % (11.5-14.5); WHITE BLOOD COUNT 8.1 K/uL (4.8-10.8)
[2016-10-25 07:33] LABS: POTASSIUM 4.6 mmol/L (3.6-5.2)
[2016-10-25 07:35] LABS: BILIRUBIN,TOTAL 0.9 mg/dL (0.2-1.3); TOTAL PROTEIN 6.4 g/dL (6.3-8.3)
[2016-10-25 07:36] LABS: MAGNESIUM 2.1 mg/dL (1.6-2.3); PHOSPHOROUS 3.2 mg/dL (2.5-4.5)
[2016-10-25] MEDS: (Novolog) Insulin Aspart, Recombinant 100 u/ml 10 ml vial SC SCH ×4 (08:16→22:57)
[2016-10-25] MEDS: Pantoprazole 20 mg EC Tab PO SCH (09:36)
--- NOTE | 2016-10-25 09:51 | CP.PCM.PN ---
<Yamileth Smith V - Last Filed: 10/25/16 16:09> Objective - Vital Signs/Intake and Output Vital Signs (last 24 hours): Temp Pulse Resp BP Pulse Ox 98.7 F 98 H 20 152/67 H 99 10/25/16 15:29 10/25/16 15:29 10/25/16 15:29 10/25/16 15:29 10/25/16 15:29 Intake and Output: 10/25/16 10/25/16 06:59 18:59 Intake Total 120 Balance 120 - Medications Medications: Current Medications Aspirin (Ecotrin) 81 mg PO DAILY [facility] Last Admin: 10/25/16 09:36 Dose: 81 mg Epoetin Alan (Procrit) 10,000 unit SC QWK [facility] Ferrous Sulfate (Feosol) 325 mg PO BID [facility] Last Admin: 10/25/16 09:35 Dose: 325 mg Furosemide (Lasix) 20 mg IVP BID [facility] Last Admin: 10/25/16 09:39 Dose: Not Given Heparin Sodium (Porcine) (Heparin) 5,000 units SC Q8 [facility] Last Admin: 10/25/16 14:12 Dose: Not Given Azithromycin 500 mg/ Sodium (Chloride) 250 mls @ 250 mls/hr IVPB Q24H [facility] Last Admin: 10/25/16 12:00 Dose: Not Given Ceftriaxone Sodium 1 gm/ (Sodium Chloride) 100 mls @ 100 mls/hr IVPB DAILY [facility] Last Admin: 10/25/16 09:34 Dose: 100 mls/hr Insulin Aspart (Novolog) 0 unit SC ACHS [facility] PRN Reason: Protocol Last Admin: 10/25/16 12:30 Dose: 1 unit Insulin Glargine (Lantus) 5 unit SC HS [facility] Last Admin: 10/24/16 22:31 Dose: 5 units Labetalol HCl (Trandate) 200 mg PO BID [facility] Last Admin: 10/25/16 09:36 Dose: 200 mg Lisinopril (Zestril) 5 mg PO DAILY [facility] Last Admin: 10/25/16 09:36 Dose: 5 mg Megestrol Acetate (Megace) 40 mg PO DAILY [facility] Last Admin: 10/25/16 09:36 Dose: 40 mg Ondansetron HCl (Zofran Inj) 4 mg IVP Q6 PRN PRN Reason: Nausea/Vomiting Last Admin: 10/21/16 12:47 Dose: 4 mg Pantoprazole Sodium (Protonix Ec Tab) 20 mg PO DAILY [facility] Last Admin: 10/25/16 09:36 Dose: 20 mg Sodium Bicarbonate (Sodium Bicarbonate Tab) 1,300 mg PO BID [facility] - Labs Labs: 10/25/16 06:56 10/25/16 06:56 Attending/Attestation - Attestation I have personally seen and examined this patient.: Yes I have fully participated in the care of the patient.: Yes I have reviewed all pertinent clinical information, including history, physical exam and plan: Yes Notes (Text): Patient seen, examined, and case discussed with day-time resident. Patient looks better, more lively than previously seen yesterday. Patient sitting upright. Patient very conversant. Patient reports everyone is encouraging her to eat. Discussed with patient she may need NGT tube if her nutrition does not improve and patient reports she does not want one and reports ate dinner and breakfast this morning. Patient's hemoglobin 7.8, type and cross 1 unit of PRBC for today. Monitor calorie count Continue IV abx for community acquired pneumonia; lung exam clinically improving , repeat chest xray tomorrow. Assessment/Plan 1) Pneumonia * Chest xray (10/20/16) Diffuse bilateral infiltrates likely pulmonary edema/CHF * Chest xray (10/23/16): new bilateral pleural effusions; persistent bilateral multifocal infiltrates * Chest/Abdomen/Pelvis (10/22/16): bilateral moderate size pleural effusion with associated compressive atelectasis. Bilateral upper lobe airspace patchy opacities. Minimal perihepatic fluid. Scattered calcifications in the left breast * Rocephin 1 gram IV qdaily (active since 10/21/16) * Azithromycin 500mg IV Q24 hours (active since 10/21/16) * Blood cultures (10/20/16): no growth X2 * Urine culture (10/20/16): no growth * monitor CBC, and temperature * Tmax: 99.8F; order for procalcitonin--pending 2) Pleural effusions * Chest xray (10/20/16) Diffuse bilateral infiltrates likely pulmonary edema/CHF * Chest xray (10/23/16): new bilateral pleural effusions; persistent bilateral multifocal infiltrates * Chest/Abdomen/Pelvis (10/22/16): bilateral moderate size pleural effusion with associated compressive atelectasis. Bilateral upper lobe airspace patchy opacities. Minimal perihepatic fluid. Scattered calcifications in the left breast * Lasix 40mg IV q daily 3) Metabolic encephalopathy * Etiologies including: hypoglycemia, pneumonia, and urinary tract infection 4) Chronic Kidney Disease * Nephrology (Dr. Martinez) on the case * monitor BUN/Cr 5) UTI (urinary tract infection) * Rocephin 1 gram IV qdaily (active since 10/21/16) * Urine culture (10/20/16): no growth * Abnormal UA (10/20/16): positive protein, glucose, blood, and pyuria, hematuria 6) Hypertension Assessment & Plan: * Labetalol 200 mg PO BID, Zestril 5 mg PO daily * Monitor vital signs * Echo (10/22) approx greater than 50% EF; severely thickened mitral valve; cannot rule out vegetation; aortic valve severely thickened. refer to full report 7) Diabetes * [id number]: 7.0 * Patient is off insulin regimen given she came in for altered mental status secondary to hypoglycemia * Monitor nutrition prior to starting insulin regimen * Start Lantus 5 units subqHS * start novolog insulin sliding scale * monitor accuchecks QAC and HS 8) Anemia Assessment & Plan: * suspecting secondary to anemia of chronic kidney disease * monitor H/H * Feosol 325mg PO bid (active since 10/22/16) * low iron and low iron stores * type and cross 1 unit of PRBC for today 9) Unintentional weight loss; hx of colon cancer * Monitor calorie counts * GI consult (Dr. Bee) on board * CT chest, abd,pelvis w/o contrast- no apparent mass noted. thickening of rectal wall noted; mild stranding of perirectal fat; underlying proctitis can bconsidered. Surgical suture lines noted in bowel area. Refer to complete report * Monitor calorie count 10) Prophylactic measure Assessment & Plan: * Heparin SC Q8 hours * Protonix 40mg PO daily * PT/OT eval- F/U * OOB to chair * IVC filter * Monitor calorie count <Jenni Lentz - Last Filed: 10/25/16 20:07> Subjective - Date & Time of Evaluation Date of Evaluation: 10/25/16 Time of Evaluation: 07:30 - Subjective Subjective: PGY 1 Medicine Note- Dr. Smith's service Pt seen and examined in no acute distress. Patient conversational and shared that she was able to eat more of her dinner last night with family present. Patient expressed not wanting an ng tube placed to facilitate feedings. She agreed to attempt eating more despite lack of appetite. Management was discussed with nephew in person and daughter over the phone. Concerns were addressed. At this time patient denied subjective fevers or chills, nausea, vomiting, abdominal pain, diarrhea, constipation, shortness of breath, chest pain, palpitations or paresthesias. Objective - Vital Signs/Intake and Output Vital Signs (last 24 hours): Temp Pulse Resp BP Pulse Ox 99.0 F 93 H 20 146/60 99 10/25/16 07:25 10/25/16 07:25 10/25/16 07:25 10/25/16 07:25 10/25/16 07:25 Intake and Output: 10/25/16 10/25/16 06:59 18:59 Intake Total 120 Balance 120 - Medications Medications: Current Medications Aspirin (Ecotrin) 81 mg PO DAILY [facility] Last Admin: 10/24/16 10:56 Dose: 81 mg Ferrous Sulfate (Feosol) 325 mg PO BID [facility] Last Admin: 10/24/16 17:59 Dose: 325 mg Furosemide (Lasix) 20 mg IVP BID [facility] Heparin Sodium (Porcine) (Heparin) 5,000 units SC Q8 [facility] Last Admin: 10/25/16 06:27 Dose: Not Given Azithromycin 500 mg/ Sodium (Chloride) 250 mls @ 250 mls/hr IVPB Q24H [facility] Last Admin: 10/24/16 10:59 Dose: 250 mls/hr Ceftriaxone Sodium 1 gm/ (Sodium Chloride) 100 mls @ 100 mls/hr IVPB DAILY [facility] Last Admin: 10/25/16 09:34 Dose: 100 mls/hr Insulin Aspart (Novolog) 0 unit SC ACHS [facility] PRN Reason: Protocol Last Admin: 10/25/16 08:16 Dose: 2 unit Insulin Glargine (Lantus) 5 unit SC HS [facility] Last Admin: 10/24/16 22:31 Dose: 5 units Labetalol HCl (Trandate) 200 mg PO BID [facility] Last Admin: 10/24/16 17:59 Dose: 200 mg Lisinopril (Zestril) 5 mg PO DAILY [facility] Last Admin: 10/24/16 10:56 Dose: 5 mg Megestrol Acetate (Megace) 40 mg PO DAILY [facility] Last Admin: 10/24/16 10:55 Dose: 40 mg Ondansetron HCl (Zofran Inj) 4 mg IVP Q6 PRN PRN Reason: Nausea/Vomiting Last Admin: 10/21/16 12:47 Dose: 4 mg Pantoprazole Sodium (Protonix Ec Tab) 20 mg PO DAILY [facility] Last Admin: 10/24/16 10:56 Dose: 20 mg - Labs Labs: 10/25/16 06:56 10/25/16 06:56 - Constitutional Appears: Non-toxic, No Acute Distress - Head Exam Head Exam: ATRAUMATIC, NORMAL INSPECTION, NORMOCEPHALIC - Eye Exam Eye Exam: EOMI, Normal appearance, PERRL Pupil Exam: NORMAL ACCOMODATION - ENT Exam ENT Exam: Mucous Membranes Moist - Neck Exam Neck Exam: Full ROM - Respiratory Exam Respiratory Exam: NORMAL BREATHING PATTERN - Cardiovascular Exam Cardiovascular Exam: +S1, +S2 - GI/Abdominal Exam GI & Abdominal Exam: Soft, Normal Bowel Sounds. absent: Guarding, Rigid, Tenderness - Extremities Exam Extremities Exam: Full ROM, Normal Capillary Refill, Tenderness (mild point tenderness). absent: Pedal Edema Additional comments: dry lower extremities - Back Exam Back Exam: Full ROM - Neurological Exam Neurological Exam: Alert, Awake, CN II-XII Intact, Oriented x3 - Psychiatric Exam Psychiatric exam: Normal Affect, Normal Mood - Skin Skin Exam: Dry, Intact, Normal Color, Warm Assessment and Plan - Assessment and Plan (Free Text) Assessment: Pneumonia w/ pleural effusions noted Chest xray (10/23/16): new bilateral pleural effusions; persistent bilateral multifocal infiltrates Zithromax,(Started 10/21/16) Will monitor temps and check for procalcitonin and repeat cultures if febrile. Rocephin 1 gram IV daily (Started 10/21/16) Blood, urine cultures negative to date. Lasix 20 mg IV BID daily Elevated BNP. F/U procalcitonin F/U Chest XRAY in AM Status: Acute Diabetes Mellitus Hyperglycemic Begin Lantus 5 units SC HS ISS high dose Encourage intake Monitor Status: Acute Anorexia with Weight Loss Hx of Colon cancer- prev worked up at [facility] [place] however records could not be located per GI. Will have to call PMD bc patient would rather utilize her prior GI doctor. Monitor calorie counts, Megace given. GI consult (Dr. Bee/Tania) on board. No immediate plans for PEG tube. Encourage patient to eat. Appetite may return upon treatment of underlying pneumonia/UTI. NG tube feeds suggested if patient's lack of appetite continued. Patient made aware and will attempt to eat more. CT chest, abd,pelvis w/o contrast- no apparent mass noted. thickening of rectal wall noted; mild stranding of perirectal fat. Surgical suture lines noted in bowel area. Refer to complete report UTI (urinary tract infection) IV Rocephin, urine culture negative, blood culture no growth to date Status: Acute Chronic kidney disease (CKD) Dr. Martinez consulted, patient may need dialysis at some point in the future; On procrit, PTH pending Status: Chronic Hypertension Labetalol 200 mg PO BID, Zestril 5 mg PO daily Echo (10/22) approx greater than 50% EF; severely thickened mitral valve; cannot rule out vegetation; aortic valve severely thickened. refer to full report. Status: Chronic Anemia Most likely anemia of chronic disease secondarily to CKD Ferrous sulfate daily Iron studies F/U stool occult blood Transfuse 1 unit PRBC Monitor Hgb/Hct afterwards Status: Chronic Hyperkalemia Resolved. Cont to monitor Mild Cognitive Impairment No psych meds at this time Support and psychoeducation rendered Daughter aware Prophylactic measure Heparin SC Q8 PPI PT/OT eval- F/U OOB to chair Status: Acute
[2016-10-25] MEDS: Azithromycin 500 MG in Sodium Chloride 0.9% 250 ML IVPB SCH (12:00)
--- NOTE | 2016-10-25 12:03 | CP.PCM.PN ---
Subjective - Date & Time of Evaluation Date of Evaluation: 10/25/16 Time of Evaluation: 12:01 - Subjective Subjective: F/U poor appetite. Reports feeling better. Less SOB. Reports eating better. Denies RB, melena, CP, hematuria, HAm cough, fever, chills, abdom pain, dysphagia, hemoptysis Objective - Vital Signs/Intake and Output Vital Signs (last 24 hours): Temp Pulse Resp BP Pulse Ox 99.0 F 93 H 20 146/60 99 10/25/16 07:25 10/25/16 07:25 10/25/16 07:25 10/25/16 07:25 10/25/16 07:25 Intake and Output: 10/25/16 10/25/16 06:59 18:59 Intake Total 120 Balance 120 - Medications Medications: Current Medications Aspirin (Ecotrin) 81 mg PO DAILY [facility] Last Admin: 10/25/16 09:36 Dose: 81 mg Ferrous Sulfate (Feosol) 325 mg PO BID [facility] Last Admin: 10/25/16 09:35 Dose: 325 mg Furosemide (Lasix) 20 mg IVP BID [facility] Last Admin: 10/25/16 09:39 Dose: Not Given Heparin Sodium (Porcine) (Heparin) 5,000 units SC Q8 [facility] Last Admin: 10/25/16 06:27 Dose: Not Given Azithromycin 500 mg/ Sodium (Chloride) 250 mls @ 250 mls/hr IVPB Q24H [facility] Last Admin: 10/24/16 10:59 Dose: 250 mls/hr Ceftriaxone Sodium 1 gm/ (Sodium Chloride) 100 mls @ 100 mls/hr IVPB DAILY [facility] Last Admin: 10/25/16 09:34 Dose: 100 mls/hr Insulin Aspart (Novolog) 0 unit SC ACHS [facility] PRN Reason: Protocol Last Admin: 10/25/16 08:16 Dose: 2 unit Insulin Glargine (Lantus) 5 unit SC HS [facility] Last Admin: 10/24/16 22:31 Dose: 5 units Labetalol HCl (Trandate) 200 mg PO BID [facility] Last Admin: 10/25/16 09:36 Dose: 200 mg Lisinopril (Zestril) 5 mg PO DAILY [facility] Last Admin: 10/25/16 09:36 Dose: 5 mg Megestrol Acetate (Megace) 40 mg PO DAILY [facility] Last Admin: 10/25/16 09:36 Dose: 40 mg Ondansetron HCl (Zofran Inj) 4 mg IVP Q6 PRN PRN Reason: Nausea/Vomiting Last Admin: 10/21/16 12:47 Dose: 4 mg Pantoprazole Sodium (Protonix Ec Tab) 20 mg PO DAILY [facility] Last Admin: 10/25/16 09:36 Dose: 20 mg - Labs Labs: 10/25/16 06:56 10/25/16 06:56 - Constitutional Appears: Non-toxic - Neck Exam Neck Exam: absent: Tenderness - Respiratory Exam Respiratory Exam: Rales - Cardiovascular Exam Cardiovascular Exam: RRR - GI/Abdominal Exam GI & Abdominal Exam: Soft, Normal Bowel Sounds. absent: Tenderness - Extremities Exam Extremities Exam: Pedal Edema - Neurological Exam Neurological Exam: Alert, Awake, Oriented x3 - Psychiatric Exam Psychiatric exam: Normal Mood Assessment and Plan (1) Poor appetite Assessment & Plan: pt reports eating better. Check documentation of po intake. No PEG at this time. Status: Acute (2) Altered mental status Status: Acute (3) Diabetic hypoglycemia Status: Acute (4) Pneumonia Assessment & Plan: Infiltrates and effusions on CT Status: Acute (5) UTI (urinary tract infection) Status: Acute (6) Anemia Assessment & Plan: chronic disease and CKD Status: Chronic (7) Chronic kidney disease (CKD) Status: Chronic (8) Hypertension Status: Chronic (9) Colon cancer Assessment & Plan: Reports colon cancer surgery in the past. SHe reports had colonosocpy 3 years. I discussed follow up colonoscopy- she wants to do it with her regular GI MD. Status: Inactive
--- NOTE | 2016-10-25 12:16 | CP.PCM.PN ---
Subjective - Date & Time of Evaluation Date of Evaluation: 10/25/16 Time of Evaluation: 12:10 - Subjective Subjective: No respiratory distress Objective - Vital Signs/Intake and Output Vital Signs (last 24 hours): Temp Pulse Resp BP Pulse Ox 99.0 F 93 H 20 146/60 99 10/25/16 07:25 10/25/16 07:25 10/25/16 07:25 10/25/16 07:25 10/25/16 07:25 Intake and Output: 10/25/16 10/25/16 06:59 18:59 Intake Total 120 Balance 120 - Medications Medications: Current Medications Aspirin (Ecotrin) 81 mg PO DAILY [facility] Last Admin: 10/25/16 09:36 Dose: 81 mg Ferrous Sulfate (Feosol) 325 mg PO BID [facility] Last Admin: 10/25/16 09:35 Dose: 325 mg Furosemide (Lasix) 20 mg IVP BID [facility] Last Admin: 10/25/16 09:39 Dose: Not Given Heparin Sodium (Porcine) (Heparin) 5,000 units SC Q8 [facility] Last Admin: 10/25/16 06:27 Dose: Not Given Azithromycin 500 mg/ Sodium (Chloride) 250 mls @ 250 mls/hr IVPB Q24H [facility] Last Admin: 10/24/16 10:59 Dose: 250 mls/hr Ceftriaxone Sodium 1 gm/ (Sodium Chloride) 100 mls @ 100 mls/hr IVPB DAILY [facility] Last Admin: 10/25/16 09:34 Dose: 100 mls/hr Insulin Aspart (Novolog) 0 unit SC ACHS [facility] PRN Reason: Protocol Last Admin: 10/25/16 08:16 Dose: 2 unit Insulin Glargine (Lantus) 5 unit SC HS [facility] Last Admin: 10/24/16 22:31 Dose: 5 units Labetalol HCl (Trandate) 200 mg PO BID [facility] Last Admin: 10/25/16 09:36 Dose: 200 mg Lisinopril (Zestril) 5 mg PO DAILY [facility] Last Admin: 10/25/16 09:36 Dose: 5 mg Megestrol Acetate (Megace) 40 mg PO DAILY [facility] Last Admin: 10/25/16 09:36 Dose: 40 mg Ondansetron HCl (Zofran Inj) 4 mg IVP Q6 PRN PRN Reason: Nausea/Vomiting Last Admin: 10/21/16 12:47 Dose: 4 mg Pantoprazole Sodium (Protonix Ec Tab) 20 mg PO DAILY [facility] Last Admin: 10/25/16 09:36 Dose: 20 mg - Labs Labs: 10/25/16 06:56 10/25/16 06:56 - Respiratory Exam Additional comments: Lungs clear - Cardiovascular Exam Cardiovascular Exam: REGULAR RHYTHM - Extremities Exam Additional comments: No edema Assessment and Plan - Assessment and Plan (Free Text) Assessment: stage 4 kidney dis stable Hyperkalemia controlled Pneumonia Anemia. Was started on procrit Plan: Add sod bicarb Suggest to add iron supp.
[2016-10-25] MEDS: (Lantus) Insulin Glargine, Recombinant SC SCH (22:57)
--- NOTE | 2016-10-26 07:07 | CP.PCM.PN ---
<Yamileth Smith V - Last Filed: 10/26/16 17:58> Objective - Vital Signs/Intake and Output Vital Signs (last 24 hours): Temp Pulse Resp BP Pulse Ox 98.2 F 91 H 20 158/63 H 99 10/26/16 15:09 10/26/16 15:30 10/26/16 15:09 10/26/16 15:09 10/26/16 15:09 Intake and Output: 10/26/16 10/26/16 06:59 18:59 Intake Total 240 250 Balance 240 250 - Medications Medications: Current Medications Aspirin (Ecotrin) 81 mg PO DAILY [facility] Last Admin: 10/26/16 10:00 Dose: Not Given Epoetin Alan (Procrit) 10,000 unit SC QWK [facility] Ferrous Sulfate (Feosol) 325 mg PO BID [facility] Last Admin: 10/26/16 10:00 Dose: Not Given Furosemide (Lasix) 20 mg IVP BID [facility] Last Admin: 10/26/16 10:00 Dose: Not Given Heparin Sodium (Porcine) (Heparin) 5,000 units SC Q8 [facility] Last Admin: 10/26/16 14:59 Dose: Not Given Azithromycin 500 mg/ Sodium (Chloride) 250 mls @ 250 mls/hr IVPB Q24H [facility] Last Admin: 10/26/16 10:00 Dose: Not Given Ceftriaxone Sodium 1 gm/ (Sodium Chloride) 100 mls @ 100 mls/hr IVPB DAILY [facility] Last Admin: 10/26/16 10:00 Dose: Not Given Insulin Aspart (Novolog) 0 unit SC ACHS [facility] PRN Reason: Protocol Last Admin: 10/26/16 12:30 Dose: 10 unit Insulin Glargine (Lantus) 10 unit SC HS [facility] Labetalol HCl (Trandate) 200 mg PO BID [facility] Last Admin: 10/26/16 10:00 Dose: Not Given Lisinopril (Zestril) 5 mg PO DAILY [facility] Last Admin: 10/26/16 10:00 Dose: Not Given Megestrol Acetate (Megace) 40 mg PO DAILY [facility] Last Admin: 10/26/16 10:00 Dose: Not Given Ondansetron HCl (Zofran Inj) 4 mg IVP Q6 PRN PRN Reason: Nausea/Vomiting Last Admin: 10/21/16 12:47 Dose: 4 mg Pantoprazole Sodium (Protonix Ec Tab) 20 mg PO DAILY [facility] Last Admin: 10/26/16 10:00 Dose: Not Given Sodium Bicarbonate (Sodium Bicarbonate Tab) 1,300 mg PO BID [facility] Last Admin: 10/26/16 10:00 Dose: Not Given - Labs Labs: 10/26/16 07:12 10/26/16 07:12 Attending/Attestation - Attestation I have personally seen and examined this patient.: Yes I have fully participated in the care of the patient.: Yes I have reviewed all pertinent clinical information, including history, physical exam and plan: Yes Notes (Text): Patient seen, examined, and case discussed with day-time resident. Patient looks better, more lively. Patient seen and accompanied by Daughter Annmarie. Patient and daughter refused PRBC transfusion overnight. Patient was very upset regarding receiving peripheral IV line. Discussed with patient, she will likely need a PICC line. Per daughter, mother is at her baseline and able to make decisions for herself. Explained to the patient, she will need PICC line because she will need IV antibiotics for pneumonia and uti. Patient's procalcitonin is elevated. Palliative care consult for goals of care. Infectious disease consult for pneumonia, uti, in light of sepsis given elevated procalcitonin. Patient is pending adequate IV line. Patient was time to think about it, strongly emphasized to the patient, PO antibiotic will not be sufficient. Patient's hemoglobin 7.8; patient is currently on PO iron supplementation Monitor calorie count (will be calculated after 3 days) Continue IV abx for community acquired pneumonia and urinary tract infection when IV line is available f/u PICC line or peripheral line access; patient is refusing at this time 1) Sepsis Assessment & Plan: * Criteria: febrile, tachycardia, and source of infection: pneumonia and urinary tract infection * Procalcitonin: 2.46 (elevated) * Chest xray (10/20/16) Diffuse bilateral infiltrates likely pulmonary edema/CHF * Chest xray (10/23/16): new bilateral pleural effusions; persistent bilateral multifocal infiltrates * Chest xray (10/26/16): multifocal ill-defined opacity, nonspecific. Possible pneumonia or pulmonary edema. small bilateral pleural effusion * Chest/Abdomen/Pelvis (10/22/16): bilateral moderate size pleural effusion with associated compressive atelectasis. Bilateral upper lobe airspace patchy opacities. Minimal perihepatic fluid. Scattered calcifications in the left breast * Rocephin 1 gram IV qdaily (active since 10/21/16) * Azithromycin 500mg IV Q24 hours (active since 10/21/16) * Blood cultures (10/20/16): no growth X2 * Urine culture (10/20/16): no growth * monitor CBC, and temperature * Tmax: 99.8F * Infectious disease (Dr. Melgar)-->f/u recommendations 2) Pneumonia Assessment & Plan: * Procalcitonin: 2.46 (elevated) * Chest xray (10/20/16) Diffuse bilateral infiltrates likely pulmonary edema/CHF * Chest xray (10/23/16): new bilateral pleural effusions; persistent bilateral multifocal infiltrates * Chest xray (10/26/16): multifocal ill-defined opacity, nonspecific. Possible pneumonia or pulmonary edema. small bilateral pleural effusion * Chest/Abdomen/Pelvis (10/22/16): bilateral moderate size pleural effusion with associated compressive atelectasis. Bilateral upper lobe airspace patchy opacities. Minimal perihepatic fluid. Scattered calcifications in the left breast * Rocephin 1 gram IV qdaily (active since 10/21/16) * Azithromycin 500mg IV Q24 hours (active since 10/21/16) * Blood cultures (10/20/16): no growth X2 * Urine culture (10/20/16): no growth * monitor CBC, and temperature * Tmax: 99.8F * Infectious disease (Dr. Melgar)-->f/u recommendations 3) Pleural effusions Assessment & Plan: * Chest xray (10/20/16) Diffuse bilateral infiltrates likely pulmonary edema/CHF * Chest xray (10/23/16): new bilateral pleural effusions; persistent bilateral multifocal infiltrates * Chest xray (10/26/16): multifocal ill-defined opacity, nonspecific. Possible pneumonia or pulmonary edema. small bilateral pleural effusion * Chest/Abdomen/Pelvis (10/22/16): bilateral moderate size pleural effusion with associated compressive atelectasis. Bilateral upper lobe airspace patchy opacities. Minimal perihepatic fluid. Scattered calcifications in the left breast * Lasix 40mg IV q daily 4) Metabolic encephalopathy Assessment & Plan: * Etiologies including: hypoglycemia, pneumonia, and urinary tract infection, sepsis 5) Chronic Kidney Disease Assessment & Plan: * Nephrology (Dr. Martinez) on the case * monitor BUN/Cr 6) UTI (urinary tract infection) Assessment & Plan: * Rocephin 1 gram IV qdaily (active since 10/21/16) * Urine culture (10/20/16): no growth * Abnormal UA (10/20/16): positive protein, glucose, blood, and pyuria, hematuria 7) Hypertension Assessment & Plan: * Labetalol 200 mg PO BID, Zestril 5 mg PO daily * Monitor vital signs * Echo (10/22) approx greater than 50% EF; severely thickened mitral valve; cannot rule out vegetation; aortic valve severely thickened. refer to full report 8) Diabetes Assessment & Plan: * [id number]: 7.0 * Patient is off insulin regimen given she came in for altered mental status secondary to hypoglycemia * Monitor nutrition prior to starting insulin regimen * Increased Lantus 10 units subqHS * start novolog insulin sliding scale * monitor accuchecks QAC and HS 9) Anemia Assessment & Plan: * suspecting secondary to anemia of chronic kidney disease * monitor H/H * Feosol 325mg PO bid (active since 10/22/16) * low iron and low iron stores * refused blood transfusion 10/25/16 10) Unintentional weight loss; hx of colon cancer Assessment & Plan: * Monitor calorie counts * GI consult (Dr. Bee) on board * CT chest, abd,pelvis w/o contrast- no apparent mass noted. thickening of rectal wall noted; mild stranding of perirectal fat; underlying proctitis can bconsidered. Surgical suture lines noted in bowel area. Refer to complete report * Monitor calorie count 11) Prophylactic measure Assessment & Plan: * Heparin SC Q8 hours * Protonix 40mg PO daily * PT/OT eval- F/U * OOB to chair * IVC filter * Monitor calorie count * Palliative care: goals of care <Jenni Lentz - Last Filed: 10/26/16 20:47> Subjective - Date & Time of Evaluation Date of Evaluation: 10/26/16 Time of Evaluation: 07:11 - Subjective Subjective: PGY 1 Medicine - Dr. Smith's service Pt seen and examined in mild distress earlier. Patient complained of right arm discomfort at the site or peripheral IV and asked for IV to be removed. Patient would not allow for another line to be placed and thus refused to be transfused overnight. This morning, patient was quite hysterical requiring the need of a 1 : 1. Later on, patient calmed down and reasons for need of PICC line was explained to her with daughter present. Patient stated that she needed time to consider whether she would want one placed. Patient appeared to be concerned about pain. Later on in the day, the subject was re-visited and the PICC line nurse was contacted but not able to be reached. Patient still in need of line and thus medical team to attempt placing again with patient's permission. Patient denies fevers, chills, nausea, vomiting, urinary changes, bowel changes at this time. Patient still needs to be encouraged to eat; although consuming more today than yesterday with daughter present. Objective - Vital Signs/Intake and Output Vital Signs (last 24 hours): Temp Pulse Resp BP Pulse Ox 98.4 F 88 20 156/68 H 97 10/25/16 23:35 10/25/16 23:35 10/25/16 23:35 10/25/16 23:35 10/25/16 23:35 - Medications Medications: Current Medications Aspirin (Ecotrin) 81 mg PO DAILY [facility] Last Admin: 10/25/16 09:36 Dose: 81 mg Epoetin Alan (Procrit) 10,000 unit SC QWK [facility] Ferrous Sulfate (Feosol) 325 mg PO BID [facility] Last Admin: 10/25/16 18:01 Dose: 325 mg Furosemide (Lasix) 20 mg IVP BID [facility] Last Admin: 10/25/16 18:00 Dose: Not Given Heparin Sodium (Porcine) (Heparin) 5,000 units SC Q8 [facility] Last Admin: 10/26/16 06:07 Dose: Not Given Azithromycin 500 mg/ Sodium (Chloride) 250 mls @ 250 mls/hr IVPB Q24H [facility] Last Admin: 10/25/16 12:00 Dose: Not Given Ceftriaxone Sodium 1 gm/ (Sodium Chloride) 100 mls @ 100 mls/hr IVPB DAILY [facility] Last Admin: 10/25/16 09:34 Dose: 100 mls/hr Insulin Aspart (Novolog) 0 unit SC ACHS [facility] PRN Reason: Protocol Last Admin: 10/25/16 22:57 Dose: 3 unit Insulin Glargine (Lantus) 5 unit SC HS [facility] Last Admin: 10/25/16 22:57 Dose: 5 units Labetalol HCl (Trandate) 200 mg PO BID [facility] Last Admin: 10/25/16 18:01 Dose: 200 mg Lisinopril (Zestril) 5 mg PO DAILY [facility] Last Admin: 10/25/16 09:36 Dose: 5 mg Megestrol Acetate (Megace) 40 mg PO DAILY [facility] Last Admin: 10/25/16 09:36 Dose: 40 mg Ondansetron HCl (Zofran Inj) 4 mg IVP Q6 PRN PRN Reason: Nausea/Vomiting Last Admin: 10/21/16 12:47 Dose: 4 mg Pantoprazole Sodium (Protonix Ec Tab) 20 mg PO DAILY [facility] Last Admin: 10/25/16 09:36 Dose: 20 mg Sodium Bicarbonate (Sodium Bicarbonate Tab) 1,300 mg PO BID [facility] Last Admin: 10/25/16 18:01 Dose: 1,300 mg - Labs Labs: 10/25/16 06:56 10/25/16 06:56 - Constitutional Appears: Non-toxic, In Acute Distress (earlier in the morning, but since resolved. Mildly distressed when touching right arm) - Head Exam Head Exam: ATRAUMATIC, NORMAL INSPECTION, NORMOCEPHALIC - Eye Exam Eye Exam: EOMI, Normal appearance, PERRL Pupil Exam: NORMAL ACCOMODATION - ENT Exam ENT Exam: Mucous Membranes Moist, Normal Exam - Neck Exam Neck Exam: Full ROM, Normal Inspection - Respiratory Exam Respiratory Exam: NORMAL BREATHING PATTERN. absent: Wheezes - Cardiovascular Exam Cardiovascular Exam: +S1, +S2 - GI/Abdominal Exam GI & Abdominal Exam: Soft, Normal Bowel Sounds - Extremities Exam Extremities Exam: Full ROM - Back Exam Back Exam: Full ROM - Neurological Exam Neurological Exam: Alert, Awake, Oriented x3 - Psychiatric Exam Psychiatric exam: Anxious - Skin Skin Exam: Dry, Intact, Warm Assessment and Plan - Assessment and Plan (Free Text) Assessment: Pneumonia w/ pleural effusions noted Chest xray (10/23/16): new bilateral pleural effusions; persistent bilateral multifocal infiltrates Zithromax,(Started 10/21/16) . Currently held bc patient does not have IV access. On PO avelox daily until line obtained. Will monitor temps and check for procalcitonin and repeat cultures if febrile. Rocephin 1 gram IV daily (Started 10/21/16) Blood, urine cultures negative to date. Lasix 20 mg IV BID daily held due to no IV access. Will begin Lasix 20 mg PO BID Elevated BNP. Procalcitonin elevated Chest XRAY - Multifocal ill-defined opacity non specific. Suspected pneumonia and pulm edema. Refer to complete report. Status: Acute Diabetes Mellitus Hyperglycemic Begin Lantus 10 units SC HS ISS high dose Encourage intake Monitor Status: Acute Anorexia with Weight Loss Hx of Colon cancer- prev worked up at [facility] however records could not be located per GI. Will have to call PMD bc patient would rather utilize her prior GI doctor. Monitor calorie counts, Megace given. GI consult (Dr. Bee/Tania) on board. No immediate plans for PEG tube. Encourage patient to eat. Appetite may return upon treatment of underlying pneumonia/UTI. NG tube feeds suggested if patient's lack of appetite continued. Patient made aware and will attempt to eat more. CT chest, abd,pelvis w/o contrast- no apparent mass noted. thickening of rectal wall noted; mild stranding of perirectal fat. Surgical suture lines noted in bowel area. Refer to complete report. Goals of care established- Palliative care. Refer to report UTI (urinary tract infection) Was on IV Rocephin, urine culture negative, blood culture no growth to date Held at this time due to no IV access. On Avelox 400 mg daily until libe obtained. Status: Acute Chronic kidney disease (CKD) Dr. Martinez consulted, patient may need dialysis at some point in the future; On procrit, PTH pending Status: Chronic Hypertension Labetalol 200 mg PO BID, Zestril 5 mg PO daily Echo (10/22) approx greater than 50% EF; severely thickened mitral valve; cannot rule out vegetation; aortic valve severely thickened. refer to full report. Status: Chronic Anemia Most likely anemia of chronic disease secondarily to CKD Ferrous sulfate daily Iron studies Hgb stable. Monitor Status: Chronic Hyperkalemia Stable Cont to monitor Mild Cognitive Impairment No psych meds at this time Support and psychoeducation rendered Daughter aware Psych support and psychoeducation provided- Consult to Dr. Powers Prophylactic measure Heparin SC Q8 PPI PT/OT eval- F/U OOB to chair Status: Acute
[2016-10-26 07:23] LABS: BASO # 0.1 K/uL (0.0-0.2); EOS # 0.4 K/uL (0.0-0.7); LYMPH # 1.4 K/uL (1.0-4.3); MONO # 0.5 K/uL (0.0-0.8); RED CELL DISTRIBUTION WIDTH 15.7 % (11.5-14.5)
[2016-10-26 07:34] LABS: POTASSIUM 5.1 mmol/L (3.6-5.2)
[2016-10-26 07:36] LABS: BILIRUBIN,TOTAL 0.8 mg/dL (0.2-1.3); TOTAL PROTEIN 6.3 g/dL (6.3-8.3)
[2016-10-26 07:37] LABS: CALCIUM 8.9 mg/dl (8.6-10.4); MAGNESIUM 2.2 mg/dL (1.6-2.3); PHOSPHOROUS 3.3 mg/dL (2.5-4.5)
[2016-10-26 07:43] LABS: BASO % 0.5 % (0.0-2.0); EOS % 3.9 % (0.0-4.0); HEMATOCRIT 24.4 % (34.0-47.0); LYMPH % 14.1 % (20.0-40.0); MEAN CELL VOLUME 84.7 fL (81.0-99.0); MEAN CORPUSCULAR HEMOGLOBIN 27.1 pg (27.0-31.0); MEAN PLATELET VOLUME 9.7 fL (7.2-11.7); MONO % 5.2 % (0.0-10.0); NRBC % 0.2 % (0.0-2.0); WHITE BLOOD COUNT 10.1 K/uL (4.8-10.8)
[2016-10-26] MEDS: (Novolog) Insulin Aspart, Recombinant 100 u/ml 10 ml vial SC SCH ×5 (08:09→22:25)
[2016-10-26] MEDS: Azithromycin 500 MG in Sodium Chloride 0.9% 250 ML IVPB SCH (10:00)
[2016-10-26] MEDS: Pantoprazole 20 mg EC Tab PO SCH (10:00)
--- NOTE | 2016-10-26 11:35 | CP.PCM.CON ---
History of Present Illness - History of Present Illness History of Present Illness: Palliative consult requested by Luis ESCALONA Reason: Goals of care discussion Patient is a 76 yo lady admitted from home with AMS and confusion in the morning. As per daughter Annmarie, family planned to go out and have breakfast. Patient took her Diabetes medications without having a food, anyway. Once EMS arrived, her sugar was found to be at 30s. Patient recovered after the D50% and was admitted for further evaluation of her mental status. the CT head showed moderate atrophy. Patient was evaluated by psychiatrist. . The CT abd/pelvis was significant for B/L pleural effusion and compressive atelectasis. BUN 73, Rivet Driver 7.8, Schuyler ESCALONA on case. hb 7.8. Patient started on Procrit and FeSo4 PO. Rocephin and Zythromax on board. PMH: HTN, DM, anemia, asthma, TIA X 3 in the past Soc. Hx: lives alone, , multiple family involved in care Fam. Hx: unknown Review of Systems - Constitutional Constitutional: Malaise, Weakness - EENT Eyes: absent: As Per HPI, Blind Spots, Blurred Vision, Change in Vision, Decreased Night Vision, Diplopia, Discharge, Dry Eye, Exophthalmos, Floaters, Irritation, Itchy Eyes, Loss of Peripheral Vision, Pain, Photophobia, Requires Corrective Lenses, Sees Flashes, Spots in Vision, Tunnel Vision, Other Visual Disturbances, Loss of Vision, Other Ears: absent: As Per HPI, Decreased Hearing, Ear Discharge, Ear Pain, Tinnitus, Abnormal Hearing, Disequilibrium, Dizziness, Other Nose/Mouth/Throat: absent: As Per HPI, Epistaxis, Nasal Congestion, Nasal Discharge, Nasal Obstruction, Nasal Trauma, Nose Pain, Post Nasal Drip, Sinus Pain, Sinus Pressure, Bleeding Gums, Change in Voice, Dental Pain, Dry Mouth, Dysphagia, Halitosis, Hoarsness, Lip Swelling, Mouth Lesions, Mouth Pain, Odynophagia, Sore Throat, Throat Swelling, Tongue Swelling, Facial Pain, Neck Pain, Neck Mass, Other - Cardiovascular Cardiovascular: absent: As Per HPI, Acrocyanosis, Chest Pain, Chest Pain at Rest , Chest Pain with Activity, Claudication, Diaphoresis, Dyspnea, Dyspnea on Exertion, Edema, Irregular Heart Rhythm, Pain Radiating to Arm/Neck/Jaw, Leg Edema, Leg Ulcers, Lightheadedness, Orthopnea, Palpitations, Paroxysmal Nocturnal Dyspnea, Pedal Edema, Radiating Pain, Rapid Heart Rate, Slow Heart Rate, Syncope, Other - Respiratory Respiratory: Dyspnea on Exertion - Gastrointestinal Gastrointestinal: Dyspepsia - Genitourinary Genitourinary: absent: As Per HPI, Change in Urinary Stream, Difficulty Urinating, Dysuria, Flank Pain, Hematuria, Pyuria, Nocturia, Urinary Incontinence, Urinary Frequency, Urinary Hesitance, Urinary Urgency, Voiding Freq/Small Amts, Freq UTI, Hx Renal/Bladder Calculi, Hx /Renal Surgery, Bladder Distension, Other - Reproductive: Female Reproductive:Female: Post Menopausal - Menstruation Menstruation: Post Menopausal - Musculoskeletal Musculoskeletal: Myalgias - Integumentary Integumentary: absent: As Per HPI, Acne, Alopecia, Bleeding Lesions, Change in Hair, Change in Nails, Change in Pigmentation, Changing Lesions, Dry Skin, Erythema, Furuncle, Hirsutism, Lesions, New Lesions, Non-Healing Lesions, Photosensitivity, Pruritus, Rash, Skin Pain, Skin Ulcer, Sores, Striae, Swelling , Unusual Bruising, Wounds, Jaundice, Other - Neurological Neurological: Weakness - Psychiatric Psychiatric: Change in Appetite - Endocrine Endocrine: Fatigue - Hematologic/Lymphatic Hematologic: As Per HPI Past Patient History - Infectious Disease Hx of Infectious Diseases: None - Tetanus Immunizations Tetanus Immunization: Unknown - Past Medical History & Family History Past Medical History?: Yes - Past Social History Smoking Status: Never Smoked - CARDIAC Hx Hypercholesterolemia: Yes Hx Hypertension: Yes Hx Peripheral Edema: Yes - PULMONARY Hx Asthma: Yes (Dx 15 yrs ago,does not use home o2 anymore) Hx Pneumonia: Yes (x2) - NEUROLOGICAL Hx Transient Ischemic Attacks (TIA): Yes (x3 about 20 yrs ago, 10 yrs ago, 7 yrs ago) - HEENT Hx HEENT Problems: Yes Hx Cataracts: Yes (Seferino IOL) - RENAL Hx Chronic Kidney Disease: Yes - ENDOCRINE/METABOLIC Hx Diabetes Mellitus Type 2: Yes - HEMATOLOGICAL/ONCOLOGICAL Hx Anemia: Yes - INTEGUMENTARY Hx Dermatological Problems: Yes Other/Comment: Bilateral lower legs dry skin - MUSCULOSKELETAL/RHEUMATOLOGICAL Hx Arthritis: Yes Hx Fractures: Yes (Right ankle. No sx, casted) - GASTROINTESTINAL Hx Gastrointestinal Disorders: Yes Other/Comment: Hx colon cancer - GENITOURINARY/GYNECOLOGICAL Hx Genitourinary Disorders: No - PSYCHIATRIC Hx Substance Use: No - SURGICAL HISTORY Hx Cataract Extraction: Yes (LEFT) - ANESTHESIA Hx Anesthesia: Yes Hx Anesthesia Reactions: No Hx Malignant Hyperthermia: No Meds Allergies/Adverse Reactions: Allergies Allergy/AdvReac Type Severity Reaction Status Date / Time Penicillins Allergy Intermediate RASH Verified 06/05/16 11:49 - Medications Medications: Current Medications Aspirin (Ecotrin) 81 mg PO DAILY [facility] Last Admin: 10/25/16 09:36 Dose: 81 mg Epoetin Alan (Procrit) 10,000 unit SC QWK [facility] Ferrous Sulfate (Feosol) 325 mg PO BID [facility] Last Admin: 10/25/16 18:01 Dose: 325 mg Furosemide (Lasix) 20 mg IVP BID [facility] Last Admin: 10/25/16 18:00 Dose: Not Given Heparin Sodium (Porcine) (Heparin) 5,000 units SC Q8 [facility] Last Admin: 10/26/16 06:07 Dose: Not Given Azithromycin 500 mg/ Sodium (Chloride) 250 mls @ 250 mls/hr IVPB Q24H [facility] Last Admin: 10/25/16 12:00 Dose: Not Given Ceftriaxone Sodium 1 gm/ (Sodium Chloride) 100 mls @ 100 mls/hr IVPB DAILY [facility] Last Admin: 10/25/16 09:34 Dose: 100 mls/hr Insulin Aspart (Novolog) 0 unit SC ACHS [facility] PRN Reason: Protocol Last Admin: 10/26/16 08:09 Dose: Not Given Insulin Glargine (Lantus) 5 unit SC HS [facility] Last Admin: 10/25/16 22:57 Dose: 5 units Labetalol HCl (Trandate) 200 mg PO BID [facility] Last Admin: 10/25/16 18:01 Dose: 200 mg Lisinopril (Zestril) 5 mg PO DAILY [facility] Last Admin: 10/25/16 09:36 Dose: 5 mg Megestrol Acetate (Megace) 40 mg PO DAILY [facility] Last Admin: 10/25/16 09:36 Dose: 40 mg Ondansetron HCl (Zofran Inj) 4 mg IVP Q6 PRN PRN Reason: Nausea/Vomiting Last Admin: 10/21/16 12:47 Dose: 4 mg Pantoprazole Sodium (Protonix Ec Tab) 20 mg PO DAILY [facility] Last Admin: 10/25/16 09:36 Dose: 20 mg Sodium Bicarbonate (Sodium Bicarbonate Tab) 1,300 mg PO BID [facility] Last Admin: 10/25/16 18:01 Dose: 1,300 mg Physical Exam - Constitutional Appears: Chronically Ill - Head Exam Head Exam: ATRAUMATIC - Eye Exam Eye Exam: EOMI, Normal appearance, PERRL Pupil Exam: NORMAL ACCOMODATION, PERRL - ENT Exam ENT Exam: Mucous Membranes Moist, Normal Exam - Neck Exam Neck exam: Positive for: Normal Inspection - Respiratory Exam Respiratory Exam: Decreased Breath Sounds, Clear to Auscultation Bilateral, NORMAL BREATHING PATTERN - Cardiovascular Exam Cardiovascular Exam: Tachycardia, REGULAR RHYTHM, +S1, +S2 - GI/Abdominal Exam GI & Abdominal Exam: Normal Bowel Sounds - Rectal Exam Rectal Exam: Deferred - Extremities Exam Extremities exam: Positive for: normal capillary refill, normal inspection, pedal pulses present - Back Exam Back exam: NORMAL INSPECTION - Neurological Exam Neurological exam: Alert, Altered - Psychiatric Exam Psychiatric exam: Flat Affect - Skin Skin Exam: Intact, Normal Color, Warm Results - Vital Signs Recent Vital Signs: Last Vital Signs Temp 97.6 F 10/26/16 08:36 Pulse 90 10/26/16 08:36 Resp 20 10/26/16 08:36 BP 150/75 10/26/16 08:36 Pulse Ox 96 10/26/16 08:36 - Labs Result Diagrams: 10/26/16 07:12 10/26/16 07:12 Labs: Laboratory Results - last 24 hr 10/25/16 10/25/16 10/25/16 12:13 16:05 19:47 WBC RBC Hgb Hct MCV MCH MCHC RDW Plt Count MPV Neut % (Auto) Lymph % (Auto) [place] % (Auto) Eos % (Auto) Baso % (Auto) Neut # Lymph # [place] # Eos # Baso # Sodium Potassium Chloride Carbon Dioxide Anion Gap BUN Creatinine Est GFR ( Amer) Est GFR (Non-Af Amer) POC Glucose (mg/dL) 335 H > 500 H* Random Glucose Calcium Phosphorus Magnesium Total Bilirubin AST ALT Alkaline Phosphatase Total Protein Albumin Globulin Albumin/Globulin Ratio Procalcitonin 2.46 H Blood Type Antibody Screen 10/25/16 10/25/16 10/26/16 19:47 21:18 01:46 WBC RBC Hgb Hct MCV MCH MCHC RDW Plt Count MPV Neut % (Auto) Lymph % (Auto) [place] % (Auto) Eos % (Auto) Baso % (Auto) Neut # Lymph # [place] # Eos # Baso # Sodium Potassium Chloride Carbon Dioxide Anion Gap BUN Creatinine Est GFR ( Amer) Est GFR (Non-Af Amer) POC Glucose (mg/dL) 371 H 305 H Random Glucose Calcium Phosphorus Magnesium Total Bilirubin AST ALT Alkaline Phosphatase Total Protein Albumin Globulin Albumin/Globulin Ratio Procalcitonin Blood Type O POSITIVE Antibody Screen Negative 10/26/16 10/26/16 10/26/16 06:10 07:12 07:12 WBC 10.1 RBC 2.88 L Hgb 7.8 L Hct 24.4 L MCV 84.7 MCH 27.1 MCHC 32.0 L RDW 15.7 H Plt Count 208 MPV 9.7 Neut % (Auto) 76.3 H Lymph % (Auto) 14.1 L [place] % (Auto) 5.2 Eos % (Auto) 3.9 Baso % (Auto) 0.5 Neut # 7.7 H Lymph # 1.4 [place] # 0.5 Eos # 0.4 Baso # 0.1 Sodium 136 Potassium 5.1 Chloride 105 Carbon Dioxide 17 L Anion Gap 19 BUN 73 H Creatinine 3.8 H Est GFR ( Amer) 14 Est GFR (Non-Af Amer) 12 POC Glucose (mg/dL) 272 H Random Glucose 249 H Calcium 8.9 Phosphorus 3.3 Magnesium 2.2 Total Bilirubin 0.8 AST 20 ALT 22 Alkaline Phosphatase 100 Total Protein 6.3 Albumin 3.1 L Globulin 3.2 Albumin/Globulin Ratio 1.0 Procalcitonin Blood Type Antibody Screen Assessment & Plan - Assessment and Plan (Free Text) Plan: Palliative consult Code status, Full Code. No advance directive on chart. PPS 30% I reviewed medical records, all diagnostic studies, examined patient in the bed and discussed goals of care with patient's daughter at bed side. Patient participated in discussion to the best of her ability. Patient is alert, oriented to place and person and forgetful. Patient was not able to recall detail bringing her to the hospital. Patient looks tired. When asked if she felt tired, patient confirmed it. Skin and sclera are pale. Hb 7.8. Procrit and FeSo4 PO on board. Patient was having breakfast at time of exam, and noted having poor appetite. Patient stated awareness of poor appetite but was eating " forcefully" as she knew she needed nutrition. patient also states that nothing tastes good to her. I discussed with her and the daughter the relations of low Hb and her feeling of being tired as well as decreased renal functions. Patient reports passing urine and denied burning on urination. In discussing goals of care with patient's daughter Annmarie, I expressed my concerns about patient's safety at home, if she was left alone. Annmarie agreed. The long-term facility placement is not an option for the family. It is a large family willing to organize helping network for the patient. Annmarie also hopes to get a few hours of help from the home care companion and was interested in applying for Medicaid. She was given application packet by Nadeen [employer]. Impression * This is a chronically ill patient, S/P episode of hypoglycemia at home due to inadequate nutrition and diabetes medication use * There is forgetfulness * Decreased appetite * Patient is not safe to home alone any more as she forgets to take her meds or over uses them * Family agree and is ready to help patient with ADLs and safety promotion * Family is interested in getting some assistance from Home Care Suggestion * Offer food of choice. Include yogurt, ice cream in diet as patient prefers those * Serve cold PO fluids * [place] patient X 3 upon each interaction * Promote safety and reassure patient of it * Would consider discontinuing 1:1 watch * Would bring patient close to Nursing Station or to 4-bed room for close watch * Discharge home when stable * SS to assist family with Home Care assistance * SS to assist family with Medicaid application Thank you for including me in care of this patient.
--- NOTE | 2016-10-26 11:52 | CP.PCM.PN ---
Subjective - Date & Time of Evaluation Date of Evaluation: 10/26/16 Time of Evaluation: 11:35 - Subjective Subjective: Alert. No resp distress Objective - Vital Signs/Intake and Output Vital Signs (last 24 hours): Temp Pulse Resp BP Pulse Ox 97.6 F 90 20 150/75 96 10/26/16 08:36 10/26/16 08:36 10/26/16 08:36 10/26/16 08:36 10/26/16 08:36 Intake and Output: 10/26/16 10/26/16 06:59 18:59 Intake Total 240 Balance 240 - Medications Medications: Current Medications Aspirin (Ecotrin) 81 mg PO DAILY [facility] Last Admin: 10/25/16 09:36 Dose: 81 mg Epoetin Alan (Procrit) 10,000 unit SC QWK [facility] Ferrous Sulfate (Feosol) 325 mg PO BID [facility] Last Admin: 10/25/16 18:01 Dose: 325 mg Furosemide (Lasix) 20 mg IVP BID [facility] Last Admin: 10/25/16 18:00 Dose: Not Given Heparin Sodium (Porcine) (Heparin) 5,000 units SC Q8 [facility] Last Admin: 10/26/16 06:07 Dose: Not Given Azithromycin 500 mg/ Sodium (Chloride) 250 mls @ 250 mls/hr IVPB Q24H [facility] Last Admin: 10/25/16 12:00 Dose: Not Given Ceftriaxone Sodium 1 gm/ (Sodium Chloride) 100 mls @ 100 mls/hr IVPB DAILY [facility] Last Admin: 10/25/16 09:34 Dose: 100 mls/hr Insulin Aspart (Novolog) 0 unit SC ACHS [facility] PRN Reason: Protocol Last Admin: 10/26/16 08:09 Dose: Not Given Insulin Glargine (Lantus) 5 unit SC HS [facility] Last Admin: 10/25/16 22:57 Dose: 5 units Labetalol HCl (Trandate) 200 mg PO BID [facility] Last Admin: 10/25/16 18:01 Dose: 200 mg Lisinopril (Zestril) 5 mg PO DAILY [facility] Last Admin: 10/25/16 09:36 Dose: 5 mg Megestrol Acetate (Megace) 40 mg PO DAILY [facility] Last Admin: 10/25/16 09:36 Dose: 40 mg Ondansetron HCl (Zofran Inj) 4 mg IVP Q6 PRN PRN Reason: Nausea/Vomiting Last Admin: 10/21/16 12:47 Dose: 4 mg Pantoprazole Sodium (Protonix Ec Tab) 20 mg PO DAILY [facility] Last Admin: 10/25/16 09:36 Dose: 20 mg Sodium Bicarbonate (Sodium Bicarbonate Tab) 1,300 mg PO BID [facility] Last Admin: 10/25/16 18:01 Dose: 1,300 mg - Labs Labs: 10/26/16 07:12 10/26/16 07:12 - Respiratory Exam Respiratory Exam: NORMAL BREATHING PATTERN - Cardiovascular Exam Cardiovascular Exam: REGULAR RHYTHM - Extremities Exam Additional comments: No edema Assessment and Plan - Assessment and Plan (Free Text) Assessment: Stage 1V kidney dis stable Pneumonia, sepsis Anemia Plan: Continue current Mx Monitor K+, Hb Was given procrit. On Iron supplement
--- NOTE | 2016-10-26 14:45 | RAD ---
HISTORY: pleural effusion, pneumonia COMPARISON: 10/23/2016 FINDINGS: LUNGS: There is ill-defined opacity throughout the right upper lobe. There is left perihilar opacity right basilar opacity. No monica consolidation is appreciated. PLEURA: Probable small bilateral pleural effusions. No pneumothorax. CARDIOVASCULAR: Mild congestive change. OSSEOUS STRUCTURES: No significant abnormalities. VISUALIZED UPPER ABDOMEN: Normal. OTHER FINDINGS: None. IMPRESSION: Multifocal ill-defined opacity, nonspecific. Possible pneumonia or pulmonary edema. Small bilateral pleural effusion.
--- NOTE | 2016-10-26 15:15 | PCM.PYCHPN ---
Psychiatric Progress Note - Psychiatric Progress Note Patient seen today, length of contact: 17 minutes Patient Chief Complaint: "I am upset" Problems Identified/Issues Discussed: Pt seen, chart reviewed, case discussed. Psych was consulted because pt was agitated during the night and not sleeping. Pt. was upset about receiving blood transfusion. She was oriented x 3. Her daughter was there and confirmed that she lives alone and manages all IADLs/ ADLs. Psychoeducation and support was given. Medication Change: No Medical Record Reviewed: Yes Mental Status Examination - Cognitive Function Orientation: Person, Place, Situation, Time Memory: Remote Attention: Poor Concentration: Poor Association: WNL Fund of Knowledge: WNL - Mood Mood: Anxious - Affect Affect: Constricted - Speech Speech: Appropriate - Formal Thought Process Formal Thought Process: Perservation Goal/Treatment Plan - Goal/Treatment Plan Progress Toward Problem(s) and Goals/Treatment Plan: No psych meds needed for now Support and psychoeducation given Monitor for developing dementia Evaluate IADLs and ADLs and possibility for home health aid
--- NOTE | 2016-10-26 18:23 | CP.PCM.CON ---
History of Present Illness - History of Present Illness History of Present Illness: 76 year old female with a history of IDDM and HTN brought in by after she was found by her daughter at home with acute confusion and found to bey hypoglycemic. Being treated for UTI/ Pneumonia rx in progress Chart review PMHx- per chart review HTN, asthma, arthritis, pneumonia, diabetes mellitus, prior TIAs and chronic kidney disease PSH: recently had AV fistula, per chart review stomach mass removed Fam Hx- two sons have DM Social Hx- smoke approx 1 ppd for an uncertain amount of time; denies alcohol or drug use Meds- insulin novolog 70/30 flex pen, labetalol 200 mg po bid, enalapril 20 mg po bid, asa 81 mg, norvasc 10 mg po daily Allergies- PCN - gets hives PMD- Dr. Altaf Breaux Review of Systems - Review of Systems Systems not reviewed;Unavailable: Altered Mental Status - Constitutional Constitutional: absent: As Per HPI, Anorexia, Chills, Daytime Sleepiness, Excessive Sweating, Fatigue, Fever, Frequent Falls, Headache, Increased Appetite , Lethargy, Malaise, Night Sweats, Snoring, Sleep Apnea, Weight Gain, Weight Loss, Weakness, Other - EENT Eyes: absent: As Per HPI, Blind Spots, Blurred Vision, Change in Vision, Decreased Night Vision, Diplopia, Discharge, Dry Eye, Exophthalmos, Floaters, Irritation, Itchy Eyes, Loss of Peripheral Vision, Pain, Photophobia, Requires Corrective Lenses, Sees Flashes, Spots in Vision, Tunnel Vision, Other Visual Disturbances, Loss of Vision, Other Ears: absent: As Per HPI, Decreased Hearing, Ear Discharge, Ear Pain, Tinnitus, Abnormal Hearing, Disequilibrium, Dizziness, Other Nose/Mouth/Throat: absent: As Per HPI, Epistaxis, Nasal Congestion, Nasal Discharge, Nasal Obstruction, Nasal Trauma, Nose Pain, Post Nasal Drip, Sinus Pain, Sinus Pressure, Bleeding Gums, Change in Voice, Dental Pain, Dry Mouth, Dysphagia, Halitosis, Hoarsness, Lip Swelling, Mouth Lesions, Mouth Pain, Odynophagia, Sore Throat, Throat Swelling, Tongue Swelling, Facial Pain, Neck Pain, Neck Mass, Other - Breasts Breasts: absent: As Per HPI, Change in Shape, Mass, Pain, Nipple Discharge, Nipple Inversion, Skin Changes, Swelling, Other - Cardiovascular Cardiovascular: absent: As Per HPI, Acrocyanosis, Chest Pain, Chest Pain at Rest , Chest Pain with Activity, Claudication, Diaphoresis, Dyspnea, Dyspnea on Exertion, Edema, Irregular Heart Rhythm, Pain Radiating to Arm/Neck/Jaw, Leg Edema, Leg Ulcers, Lightheadedness, Orthopnea, Palpitations, Paroxysmal Nocturnal Dyspnea, Pedal Edema, Radiating Pain, Rapid Heart Rate, Slow Heart Rate, Syncope, Other - Respiratory Respiratory: absent: As Per HPI, Cough, Dyspnea, Hemoptysis, Dyspnea on Exertion , Wheezing, Snoring, Stridor, Pain on Inspiration, Chest Congestion, Excessive Mucous Production, Change in Mucous Color, Pain with Coughing, Other - Gastrointestinal Gastrointestinal: absent: As Per HPI, Abdominal Pain, Belching, Bloating, Change in Bowel Habits, Change in Stool Character, Coffee Ground Emesis, Constipation, Cramping, Diarrhea, Dyspepsia, Dysphagia, Early Satiety, Excessive Flatus, Fecal Incontinence, Heartburn, Hematemesis, Hematochezia, Loose Stools, Melena, Nausea, Odynophagia, Temesmus, Vomiting, Other - Genitourinary Genitourinary: absent: As Per HPI, Change in Urinary Stream, Difficulty Urinating, Dysuria, Flank Pain, Hematuria, Pyuria, Nocturia, Urinary Incontinence, Urinary Frequency, Urinary Hesitance, Urinary Urgency, Voiding Freq/Small Amts, Freq UTI, Hx Renal/Bladder Calculi, Hx /Renal Surgery, Bladder Distension, Other - Reproductive: Female Reproductive:Female: absent: As Per HPI, Amenorrhea, Amenorrhea/ Control, Currently Menstual, Cycle <21 Days, Cycle >35 Days, Cycle Variable, Menses 1-7 Days, Menses >/= 8 Days, Menses Variable, Cycle > 4 Weeks Between, No Menses for 6 Months, Heavy Menses, Light Menses, Normal Menses, Spotting Between Cycles , S/P Hysterectomy, Menopausal, Post Menopausal, Premenarche, Abnormal Vaginal Bleeding, Dysmenorrhea, Dyspareunia, Genital Lesions, Genital Pruritis, Pelvic Pain, Prolapse Symptoms, Sexual Dysfunction, Vaginal Discharge, Vaginal Dryness , Vaginal Odor, Vaginal Pruritis, Other - Menstruation Menstruation: absent: As Per HPI, Amenorrhea, Amenorrhea/ Control, Currently Menstual, Cycle <21 Days, Cycle >35 Days, Cycle Variable, Menses 1-7 Days, Menses >/= 8 Days, Menses Variable, Cycle > 4 Weeks Between, No Menses for 6 Months, Heavy Menses, Light Menses, Normal Menses, Spotting Between Cycles , S/P Hysterectomy, Menopausal, Post Menopausal, Premenarche, Abnormal Vaginal Bleeding, Dysmenorrhea, Other - Musculoskeletal Musculoskeletal: As Per HPI - Integumentary Integumentary: As Per HPI - Neurological Neurological: absent: As Per HPI, Abnormal Gait, Abnormal Hearing, Abnormal Movements, Abnormal Speech, Behavioral Changes, Burning Sensations, Confusion, Convulsions, Disequilibrium, Dizziness, Numbness, Focal Weakness, Frequent Falls , Headaches, Lack of Coordination, Loss of Vision, Memory Loss, Paresthesias, Radicular Pain, Restless Legs, Sensory Deficit, Syncope, Tingling, Tremor, Vertigo, Weakness, Other Visual Disturbances, Other - Psychiatric Psychiatric: absent: As Per HPI, Abnormal Sleep Pattern, Anhedonia, Anxiety, Auditory Hallucinations, Behavioral Changes, Change in Appetite, Change in Libido, Confusion, Depression, Difficulty Concentrating, Hallucinations, Homicidal Ideation, Hopelessness, Irritability, Memory Loss, Mood Swings, Panic Attacks, Paranoia, Suicidal Ideation, Visual Hallucinations, Tactile Hallucinations, Other - Endocrine Endocrine: absent: As Per HPI, Change in Body Appearance, Change in Libido, Cold Intolorance, Deepening of Voice, Excessive Sweating, Fatigue, Flushing, Heat Intolorance, Increase in Ring/Shoe/Hat Size, Palpitations, Polydipsia, Polyphagia, Polyuria, Other - Hematologic/Lymphatic Hematologic: absent: As Per HPI, Easy Bleeding, Easy Bruising, Lymphadenopathy, Other Past Patient History - Infectious Disease Hx of Infectious Diseases: None - Tetanus Immunizations Tetanus Immunization: Unknown - Past Medical History & Family History Past Medical History?: Yes - Past Social History Smoking Status: Never Smoked - CARDIAC Hx Hypercholesterolemia: Yes Hx Hypertension: Yes Hx Peripheral Edema: Yes - PULMONARY Hx Asthma: Yes (Dx 15 yrs ago,does not use home o2 anymore) Hx Pneumonia: Yes (x2) - NEUROLOGICAL Hx Transient Ischemic Attacks (TIA): Yes (x3 about 20 yrs ago, 10 yrs ago, 7 yrs ago) - HEENT Hx HEENT Problems: Yes Hx Cataracts: Yes (Seferino IOL) - RENAL Hx Chronic Kidney Disease: Yes - ENDOCRINE/METABOLIC Hx Diabetes Mellitus Type 2: Yes - HEMATOLOGICAL/ONCOLOGICAL Hx Anemia: Yes - INTEGUMENTARY Hx Dermatological Problems: Yes Other/Comment: Bilateral lower legs dry skin - MUSCULOSKELETAL/RHEUMATOLOGICAL Hx Arthritis: Yes Hx Fractures: Yes (Right ankle. No sx, casted) - GASTROINTESTINAL Hx Gastrointestinal Disorders: Yes Other/Comment: Hx colon cancer - GENITOURINARY/GYNECOLOGICAL Hx Genitourinary Disorders: No - PSYCHIATRIC Hx Substance Use: No - SURGICAL HISTORY Hx Cataract Extraction: Yes (LEFT) - ANESTHESIA Hx Anesthesia: Yes Hx Anesthesia Reactions: No Hx Malignant Hyperthermia: No Meds Allergies/Adverse Reactions: Allergies Allergy/AdvReac Type Severity Reaction Status Date / Time Penicillins Allergy Intermediate RASH Verified 06/05/16 11:49 - Medications Medications: Current Medications Aspirin (Ecotrin) 81 mg PO DAILY [facility] Last Admin: 10/26/16 10:00 Dose: Not Given Epoetin Alan (Procrit) 10,000 unit SC QWK [facility] Ferrous Sulfate (Feosol) 325 mg PO BID [facility] Last Admin: 10/26/16 10:00 Dose: Not Given Furosemide (Lasix) 20 mg IVP BID [facility] Last Admin: 10/26/16 10:00 Dose: Not Given Heparin Sodium (Porcine) (Heparin) 5,000 units SC Q8 [facility] Last Admin: 10/26/16 14:59 Dose: Not Given Azithromycin 500 mg/ Sodium (Chloride) 250 mls @ 250 mls/hr IVPB Q24H [facility] Last Admin: 10/26/16 10:00 Dose: Not Given Ceftriaxone Sodium 1 gm/ (Sodium Chloride) 100 mls @ 100 mls/hr IVPB DAILY [facility] Last Admin: 10/26/16 10:00 Dose: Not Given Insulin Aspart (Novolog) 0 unit SC ACHS [facility] PRN Reason: Protocol Last Admin: 10/26/16 12:30 Dose: 10 unit Insulin Glargine (Lantus) 10 unit SC HS [facility] Labetalol HCl (Trandate) 200 mg PO BID [facility] Last Admin: 10/26/16 10:00 Dose: Not Given Lisinopril (Zestril) 5 mg PO DAILY [facility] Last Admin: 10/26/16 10:00 Dose: Not Given Megestrol Acetate (Megace) 40 mg PO DAILY [facility] Last Admin: 10/26/16 10:00 Dose: Not Given Ondansetron HCl (Zofran Inj) 4 mg IVP Q6 PRN PRN Reason: Nausea/Vomiting Last Admin: 10/21/16 12:47 Dose: 4 mg Pantoprazole Sodium (Protonix Ec Tab) 20 mg PO DAILY [facility] Last Admin: 10/26/16 10:00 Dose: Not Given Sodium Bicarbonate (Sodium Bicarbonate Tab) 1,300 mg PO BID [facility] Last Admin: 10/26/16 10:00 Dose: Not Given Physical Exam - Constitutional Appears: Non-toxic, Confused, Cachectic, Chronically Ill - Head Exam Head Exam: ATRAUMATIC, NORMAL INSPECTION, NORMOCEPHALIC - Eye Exam Eye Exam: EOMI, PERRL. absent: Scleral icterus - ENT Exam ENT Exam: Mucous Membranes Dry, Normal External Ear Exam, Normal Oropharynx - Neck Exam Neck exam: Negative for: Lymphadenopathy, Thyromegaly - Respiratory Exam Respiratory Exam: Decreased Breath Sounds, Rhonchi, Wheezes - Cardiovascular Exam Cardiovascular Exam: Tachycardia, REGULAR RHYTHM, +S1, +S2 - GI/Abdominal Exam GI & Abdominal Exam: Diminished Bowel Sounds, Soft. absent: Tenderness - Rectal Exam Rectal Exam: Deferred - Exam Exam: NORMAL INSPECTION - Extremities Exam Extremities exam: Positive for: pedal pulses present. Negative for: calf tenderness, pedal edema, tenderness - Back Exam Back exam: absent: CVA tenderness (L), CVA tenderness (R), paraspinal tenderness - Neurological Exam Neurological exam: Alert, CN II-XII Intact, Oriented x3, Reflexes Normal - Psychiatric Exam Psychiatric exam: Normal Mood - Skin Skin Exam: Dry, Intact Results - Vital Signs Recent Vital Signs: Last Vital Signs Temp 98.2 F 10/26/16 15:09 Pulse 91 H 10/26/16 15:30 Resp 20 10/26/16 15:09 BP 158/63 H 10/26/16 15:09 Pulse Ox 99 10/26/16 15:09 - Labs Result Diagrams: 10/26/16 07:12 10/26/16 07:12 Labs: Laboratory Results - last 24 hr 10/25/16 10/25/16 10/25/16 19:47 19:47 21:18 WBC RBC Hgb Hct MCV MCH MCHC RDW Plt Count MPV Neut % (Auto) Lymph % (Auto) [place] % (Auto) Eos % (Auto) Baso % (Auto) Neut # Lymph # [place] # Eos # Baso # Sodium Potassium Chloride Carbon Dioxide Anion Gap BUN Creatinine Est GFR ( Amer) Est GFR (Non-Af Amer) POC Glucose (mg/dL) 371 H Random Glucose Calcium Phosphorus Magnesium Total Bilirubin AST ALT Alkaline Phosphatase Total Protein Albumin Globulin Albumin/Globulin Ratio Procalcitonin 2.46 H Blood Type O POSITIVE Antibody Screen Negative 10/26/16 10/26/16 10/26/16 01:46 06:10 07:12 WBC 10.1 RBC 2.88 L Hgb 7.8 L Hct 24.4 L MCV 84.7 MCH 27.1 MCHC 32.0 L RDW 15.7 H Plt Count 208 MPV 9.7 Neut % (Auto) 76.3 H Lymph % (Auto) 14.1 L [place] % (Auto) 5.2 Eos % (Auto) 3.9 Baso % (Auto) 0.5 Neut # 7.7 H Lymph # 1.4 [place] # 0.5 Eos # 0.4 Baso # 0.1 Sodium Potassium Chloride Carbon Dioxide Anion Gap BUN Creatinine Est GFR ( Amer) Est GFR (Non-Af Amer) POC Glucose (mg/dL) 305 H 272 H Random Glucose Calcium Phosphorus Magnesium Total Bilirubin AST ALT Alkaline Phosphatase Total Protein Albumin Globulin Albumin/Globulin Ratio Procalcitonin Blood Type Antibody Screen 10/26/16 10/26/16 10/26/16 07:12 11:23 16:48 WBC RBC Hgb Hct MCV MCH MCHC RDW Plt Count MPV Neut % (Auto) Lymph % (Auto) [place] % (Auto) Eos % (Auto) Baso % (Auto) Neut # Lymph # [place] # Eos # Baso # Sodium 136 Potassium 5.1 Chloride 105 Carbon Dioxide 17 L Anion Gap 19 BUN 73 H Creatinine 3.8 H Est GFR ( Amer) 14 Est GFR (Non-Af Amer) 12 POC Glucose (mg/dL) 455 H* 288 H Random Glucose 249 H Calcium 8.9 Phosphorus 3.3 Magnesium 2.2 Total Bilirubin 0.8 AST 20 ALT 22 Alkaline Phosphatase 100 Total Protein 6.3 Albumin 3.1 L Globulin 3.2 Albumin/Globulin Ratio 1.0 Procalcitonin Blood Type Antibody Screen Assessment & Plan (1) Altered mental status Status: Acute (2) CHF (congestive heart failure) Status: Acute (3) Diabetic hypoglycemia Status: Acute (4) Pneumonia Status: Acute (5) UTI (urinary tract infection) Status: Acute - Assessment and Plan (Free Text) Assessment: cont iv rx will review cultures when available
[2016-10-26] MEDS: (Lantus) Insulin Glargine, Recombinant SC SCH (22:24)
[2016-10-27] MEDS: (Novolog) Insulin Aspart, Recombinant 100 u/ml 10 ml vial SC SCH ×3 (08:05→22:16)
--- NOTE | 2016-10-27 09:19 | CP.PCM.PN ---
Subjective - Date & Time of Evaluation Date of Evaluation: 10/27/16 Time of Evaluation: 08:45 - Subjective Subjective: Patient was seen and examined by me. Reviewed recent notes. Patient does not seem to remember me from previous time I saw her. Her blood sugars are now much better, we also talked about her appettite as well. She explains her appettie still seems poor and she is trying to eat more. She yesterday lost peripheral IV access and is a very hard stick - and she did not want a PICC Line at that time, when I spoke with her this morning about this morning she is not sure about the PICC line and wanted to talk to family about this. Labwork is pending this morning. As mentioned before, the patient intially came in with AMS secondary to hypoglycemia (she was taking insulin and not eating) and also UTI and Pneumonia. Her blood sugars are better now and she was on IV abx until last night. CXRAY yesterday suggest maybe more pulmonary edema. Objective - Vital Signs/Intake and Output Vital Signs (last 24 hours): Temp Pulse Resp BP Pulse Ox 98.3 F 88 20 126/61 97 10/27/16 07:30 10/27/16 09:01 10/27/16 07:30 10/27/16 07:30 10/27/16 07:30 Intake and Output: 10/27/16 10/27/16 06:59 18:59 Intake Total 100 Balance 100 - Medications Medications: Current Medications Aspirin (Ecotrin) 81 mg PO DAILY [facility] Last Admin: 10/26/16 10:00 Dose: Not Given Epoetin Alan (Procrit) 10,000 unit SC QWK [facility] Ferrous Sulfate (Feosol) 325 mg PO BID [facility] Last Admin: 10/26/16 19:06 Dose: 325 mg Furosemide (Lasix) 20 mg IVP BID [facility] Last Admin: 10/26/16 10:00 Dose: Not Given Furosemide (Lasix) 20 mg PO BID [facility] Last Admin: 10/26/16 22:23 Dose: 20 mg Heparin Sodium (Porcine) (Heparin) 5,000 units SC Q8 [facility] Last Admin: 10/27/16 06:30 Dose: Not Given Azithromycin 500 mg/ Sodium (Chloride) 250 mls @ 250 mls/hr IVPB Q24H [facility] Last Admin: 10/26/16 10:00 Dose: Not Given Ceftriaxone Sodium 1 gm/ (Sodium Chloride) 100 mls @ 100 mls/hr IVPB DAILY [facility] Last Admin: 10/26/16 10:00 Dose: Not Given Insulin Aspart (Novolog) 0 unit SC ACHS [facility] PRN Reason: Protocol Last Admin: 10/26/16 22:25 Dose: 4 unit Insulin Glargine (Lantus) 10 unit SC HS [facility] Last Admin: 10/26/16 22:24 Dose: 10 units Labetalol HCl (Trandate) 200 mg PO BID [facility] Last Admin: 10/26/16 19:06 Dose: 200 mg Lisinopril (Zestril) 5 mg PO DAILY [facility] Last Admin: 10/26/16 10:00 Dose: Not Given Megestrol Acetate (Megace) 40 mg PO DAILY [facility] Last Admin: 10/26/16 10:00 Dose: Not Given Moxifloxacin HCl (Avelox) 400 mg PO DAILY [facility] Last Admin: 10/26/16 22:23 Dose: 400 mg Ondansetron HCl (Zofran Inj) 4 mg IVP Q6 PRN PRN Reason: Nausea/Vomiting Last Admin: 10/21/16 12:47 Dose: 4 mg Pantoprazole Sodium (Protonix Ec Tab) 20 mg PO DAILY [facility] Last Admin: 10/26/16 10:00 Dose: Not Given Sodium Bicarbonate (Sodium Bicarbonate Tab) 1,300 mg PO BID [facility] Last Admin: 10/26/16 19:06 Dose: 1,300 mg - Labs Labs: 10/26/16 07:12 10/26/16 07:12 Assessment and Plan - Assessment and Plan (Free Text) Assessment: Pneumonia w/ pleural effusions noted 10/27: Will get another CXRAY, no IV access this morning. She still is not sure about PICC line. WBC is negative and afebrile. Cultures are negative for 5 days at this time. Will give PO Cipro for now. Follow I and Os, cosndiering there is CKD she may have worsening pulmonary congestion. Chest xray (10/23/16): new bilateral pleural effusions; persistent bilateral multifocal infiltrates Zithromax,(Started 10/21/16) . Currently held bc patient does not have IV access. On PO avelox daily until line obtained. Will monitor temps and check for procalcitonin and repeat cultures if febrile. Rocephin 1 gram IV daily (Started 10/21/16) Blood, urine cultures negative to date. Lasix 20 mg IV BID daily held due to no IV access. Will begin Lasix 20 mg PO BID Elevated BNP. Procalcitonin elevated Diabetes Mellitus 10/27: Recent accucheks have been 288, 401, 321, 243 - she is eating better now then when she came in. Hyperglycemic Begin Lantus 10 units SC HS ISS high dose Encourage intake Monitor Status: Acute Anorexia with Weight Loss Hx of Colon cancer- prev worked up at [facility] however records could not be located per GI. Will have to call PMD bc patient would rather utilize her prior GI doctor. Monitor calorie counts, Megace given. GI consult (Dr. Bee/Tania) on board. No immediate plans for PEG tube. Encourage patient to eat. Appetite may return upon treatment of underlying pneumonia/UTI. NG tube feeds suggested if patient's lack of appetite continued. Patient made aware and will attempt to eat more. CT chest, abd,pelvis w/o contrast- no apparent mass noted. thickening of rectal wall noted; mild stranding of perirectal fat. Surgical suture lines noted in bowel area. UTI (urinary tract infection) 10/27: Repeat the UA, no IV access - PO Cipro for now Was on IV Rocephin, urine culture negative, blood culture no growth to date Held at this time due to no IV access. On Avelox 400 mg daily until libe obtained. Chronic kidney disease (CKD) Dr. Martinez consulted, patient may need dialysis at some point in the future; On procrit, PTH pending Hypertension Labetalol 200 mg PO BID, Zestril 5 mg PO daily Echo (10/22) approx greater than 50% EF; severely thickened mitral valve; cannot rule out vegetation; aortic valve severely thickened. refer to full report. Anemia 10/27: Need to monitor in case it decreases further, per previous notes she did not want PRBC/transfuion yet. Most likely anemia of chronic disease secondarily to CKD Ferrous sulfate daily Iron studies Hgb stable. Hyperkalemia Stable Cont to monitor Mild Cognitive Impairment No psych meds at this time Support and psychoeducation rendered Daughter aware Psych support and psychoeducation provided- Consult to Dr. Powers Prophylactic measure Heparin SC Q8 PPI PT/OT eval- F/U OOB to chair
[2016-10-27] MEDS: Pantoprazole 20 mg EC Tab PO SCH (10:07)
--- NOTE | 2016-10-27 11:23 | CP.PCM.PN ---
Subjective - Date & Time of Evaluation Date of Evaluation: 10/27/16 Time of Evaluation: 11:16 - Subjective Subjective: COVERING DR HENRIQUEZ/REINA No new c/o, no bleeding Objective - Vital Signs/Intake and Output Vital Signs (last 24 hours): Temp Pulse Resp BP Pulse Ox 98.3 F 88 20 126/61 97 10/27/16 07:30 10/27/16 09:01 10/27/16 07:30 10/27/16 10:07 10/27/16 07:30 Intake and Output: 10/27/16 10/27/16 06:59 18:59 Intake Total 100 Balance 100 - Medications Medications: Current Medications Aspirin (Ecotrin) 81 mg PO DAILY [facility] Last Admin: 10/27/16 10:07 Dose: 81 mg Ciprofloxacin (Cipro) 250 mg PO BID [facility] Epoetin Alan (Procrit) 10,000 unit SC QWK [facility] Ferrous Sulfate (Feosol) 325 mg PO BID [facility] Last Admin: 10/27/16 10:07 Dose: 325 mg Furosemide (Lasix) 20 mg IVP BID [facility] Last Admin: 10/26/16 10:00 Dose: Not Given Furosemide (Lasix) 20 mg PO BID [facility] Last Admin: 10/27/16 10:07 Dose: 20 mg Heparin Sodium (Porcine) (Heparin) 5,000 units SC Q8 [facility] Last Admin: 10/27/16 06:30 Dose: Not Given Azithromycin 500 mg/ Sodium (Chloride) 250 mls @ 250 mls/hr IVPB Q24H [facility] Last Admin: 10/26/16 10:00 Dose: Not Given Ceftriaxone Sodium 1 gm/ (Sodium Chloride) 100 mls @ 100 mls/hr IVPB DAILY [facility] Last Admin: 10/26/16 10:00 Dose: Not Given Insulin Aspart (Novolog) 0 unit SC ACHS [facility] PRN Reason: Protocol Last Admin: 10/27/16 08:05 Dose: 3 unit Insulin Glargine (Lantus) 10 unit SC HS [facility] Last Admin: 10/26/16 22:24 Dose: 10 units Labetalol HCl (Trandate) 200 mg PO BID [facility] Last Admin: 10/27/16 10:07 Dose: 200 mg Lisinopril (Zestril) 5 mg PO DAILY [facility] Last Admin: 10/27/16 10:06 Dose: 5 mg Megestrol Acetate (Megace) 40 mg PO DAILY [facility] Last Admin: 10/27/16 10:07 Dose: 40 mg Moxifloxacin HCl (Avelox) 400 mg PO DAILY [facility] Last Admin: 10/27/16 10:06 Dose: 400 mg Ondansetron HCl (Zofran Inj) 4 mg IVP Q6 PRN PRN Reason: Nausea/Vomiting Last Admin: 10/21/16 12:47 Dose: 4 mg Pantoprazole Sodium (Protonix Ec Tab) 20 mg PO DAILY [facility] Last Admin: 10/27/16 10:07 Dose: 20 mg Sodium Bicarbonate (Sodium Bicarbonate Tab) 1,300 mg PO BID [facility] Last Admin: 10/27/16 10:06 Dose: 1,300 mg - Labs Labs: 10/26/16 07:12 10/26/16 07:12 - Constitutional Appears: No Acute Distress - Eye Exam Eye Exam: EOMI, PERRL - Respiratory Exam Respiratory Exam: NORMAL BREATHING PATTERN - Cardiovascular Exam Cardiovascular Exam: REGULAR RHYTHM - GI/Abdominal Exam GI & Abdominal Exam: Soft, Diminished Bowel Sounds. absent: Tenderness Assessment and Plan - Assessment and Plan (Free Text) Assessment: Anemia Renal Failure Malnutrition h/o Colon Cancer Remains too sick for PEG tube at this time Encourage po intake and Calorie counts Defer Colon Cancer surveillance to out patient setting at patient request
[2016-10-27] MEDS: (Lantus) Insulin Glargine, Recombinant SC SCH (22:16)
[2016-10-28] MEDS: (Novolog) Insulin Aspart, Recombinant 100 u/ml 10 ml vial SC SCH ×4 (08:05→21:31)
--- NOTE | 2016-10-28 09:40 | CP.PCM.PN ---
<Yamileth Smith V - Last Filed: 10/28/16 12:34> Objective - Vital Signs/Intake and Output Vital Signs (last 24 hours): Temp Pulse Resp BP Pulse Ox 98.5 F 82 20 152/70 H 98 10/28/16 08:55 10/28/16 08:55 10/28/16 08:55 10/28/16 10:04 10/28/16 08:55 - Medications Medications: Current Medications Aspirin (Ecotrin) 81 mg PO DAILY [facility] Last Admin: 10/28/16 10:04 Dose: 81 mg Ciprofloxacin (Cipro) 250 mg PO BID [facility] Last Admin: 10/27/16 11:25 Dose: Not Given Epoetin Alan (Procrit) 10,000 unit SC QWK [facility] Ferrous Sulfate (Feosol) 325 mg PO BID [facility] Last Admin: 10/28/16 10:04 Dose: 325 mg Furosemide (Lasix) 20 mg IVP BID [facility] Last Admin: 10/26/16 10:00 Dose: Not Given Furosemide (Lasix) 20 mg PO BID [facility] Last Admin: 10/28/16 10:04 Dose: 20 mg Heparin Sodium (Porcine) (Heparin) 5,000 units SC Q8 [facility] Last Admin: 10/28/16 06:08 Dose: Not Given Azithromycin 500 mg/ Sodium (Chloride) 250 mls @ 250 mls/hr IVPB Q24H [facility] Last Admin: 10/26/16 10:00 Dose: Not Given Ceftriaxone Sodium 1 gm/ (Sodium Chloride) 100 mls @ 100 mls/hr IVPB DAILY [facility] Last Admin: 10/26/16 10:00 Dose: Not Given Insulin Aspart (Novolog) 0 unit SC ACHS [facility] PRN Reason: Protocol Last Admin: 10/28/16 08:05 Dose: 6 unit Insulin Aspart (Novolog) 2 unit SC TIDAC [facility] Insulin Glargine (Lantus) 15 unit SC HS [facility] Labetalol HCl (Trandate) 200 mg PO BID [facility] Last Admin: 10/28/16 10:05 Dose: 200 mg Lisinopril (Zestril) 5 mg PO DAILY [facility] Last Admin: 10/28/16 10:05 Dose: 5 mg Megestrol Acetate (Megace) 40 mg PO DAILY [facility] Last Admin: 10/28/16 10:04 Dose: 40 mg Moxifloxacin HCl (Avelox) 400 mg PO DAILY [facility] Last Admin: 10/28/16 10:04 Dose: 400 mg Ondansetron HCl (Zofran Inj) 4 mg IVP Q6 PRN PRN Reason: Nausea/Vomiting Last Admin: 10/21/16 12:47 Dose: 4 mg Pantoprazole Sodium (Protonix Ec Tab) 20 mg PO DAILY [facility] Last Admin: 10/28/16 10:05 Dose: 20 mg Sodium Bicarbonate (Sodium Bicarbonate Tab) 1,300 mg PO BID [facility] Last Admin: 10/28/16 10:03 Dose: 1,300 mg - Labs Labs: 10/26/16 07:12 10/26/16 07:12 Attending/Attestation - Attestation I have personally seen and examined this patient.: Yes I have fully participated in the care of the patient.: Yes I have reviewed all pertinent clinical information, including history, physical exam and plan: Yes Notes (Text): Patient seen, examined, and case discussed with day-time resident. Patient looks better, awake, alert, and oriented X3. Patient is very calm today. Patient will allow for PICC line but would like to sedated prior to PICC line placement given her prior episode with the peripheral line. Refused blood draws. Patient is currently on Avelox 400mg PO daily (active since 10/26/16) in lieu of IV antibiotics until peripheral line is established and on Lasix 40mg PO daily in lieu of IV lasix given pleural effusions. Patient is pending adequate IV line. Will permit PICC line. Monitor calorie count Will re-establish IV abx for community acquired pneumonia and urinary tract infection when IV line is re-established 1) Sepsis Assessment & Plan: * Criteria: febrile, tachycardia, and source of infection: pneumonia and urinary tract infection * Procalcitonin: 2.46 (elevated) * Chest xray (10/20/16) Diffuse bilateral infiltrates likely pulmonary edema/CHF * Chest xray (10/23/16): new bilateral pleural effusions; persistent bilateral multifocal infiltrates * Chest xray (10/26/16): multifocal ill-defined opacity, nonspecific. Possible pneumonia or pulmonary edema. small bilateral pleural effusion * Chest/Abdomen/Pelvis (10/22/16): bilateral moderate size pleural effusion with associated compressive atelectasis. Bilateral upper lobe airspace patchy opacities. Minimal perihepatic fluid. Scattered calcifications in the left breast * Rocephin 1 gram IV qdaily (active since 10/21/16)-->held secondary to lack of IV access * Azithromycin 500mg IV Q24 hours (active since 10/21/16)-->held secondary to lack of IV access * Avelox 400mg PO daily (active since 10/26/16) until IV line is re-established * Blood cultures (10/20/16): no growth X2 * Urine culture (10/20/16): no growth * monitor CBC, and temperature * Tmax: 99.1F * Infectious disease (Dr. Melgar)-->f/u recommendations 2) Pneumonia Assessment & Plan: * Procalcitonin: 2.46 (elevated) * Chest xray (10/20/16) Diffuse bilateral infiltrates likely pulmonary edema/CHF * Chest xray (10/23/16): new bilateral pleural effusions; persistent bilateral multifocal infiltrates * Chest xray (10/26/16): multifocal ill-defined opacity, nonspecific. Possible pneumonia or pulmonary edema. small bilateral pleural effusion * Chest/Abdomen/Pelvis (10/22/16): bilateral moderate size pleural effusion with associated compressive atelectasis. Bilateral upper lobe airspace patchy opacities. Minimal perihepatic fluid. Scattered calcifications in the left breast * Rocephin 1 gram IV qdaily (active since 10/21/16)-->held secondary to lack of IV access * Azithromycin 500mg IV Q24 hours (active since 10/21/16)-->held secondary to lack of IV access * Avelox 400mg PO daily (active since 10/26/16) until IV line is re-established * Blood cultures (10/20/16): no growth X 5 days X2 * Urine culture (10/20/16): no growth * monitor CBC, and temperature * Tmax: 99.1F * Infectious disease (Dr. Melgar)-->f/u recommendations 3) Pleural effusions Assessment & Plan: * Chest xray (10/20/16) Diffuse bilateral infiltrates likely pulmonary edema/CHF * Chest xray (10/23/16): new bilateral pleural effusions; persistent bilateral multifocal infiltrates * Chest xray (10/26/16): multifocal ill-defined opacity, nonspecific. Possible pneumonia or pulmonary edema. small bilateral pleural effusion * Chest/Abdomen/Pelvis (10/22/16): bilateral moderate size pleural effusion with associated compressive atelectasis. Bilateral upper lobe airspace patchy opacities. Minimal perihepatic fluid. Scattered calcifications in the left breast * Lasix 20mg PO bid 4) Metabolic encephalopathy Assessment & Plan: * Etiologies including: hypoglycemia, pneumonia, and urinary tract infection, sepsis 5) Chronic Kidney Disease Assessment & Plan: * Nephrology (Dr. Martinez) on the case * monitor BUN/Cr * Sodium bicarbonate 1300mg PO bid * lasix 20mg PO bid 6) UTI (urinary tract infection) Assessment & Plan: * Rocephin 1 gram IV qdaily (active since 10/21/16) off secondary to lack of IV access * Urine culture (10/20/16): no growth * Abnormal UA (10/20/16): positive protein, glucose, blood, and pyuria, hematuria * Avelox 400mg PO daily (active since 10/26/16) until IV line is re-established 7) Hypertension Assessment & Plan: * Labetalol 200 mg PO BID, Zestril 5 mg PO daily * Monitor vital signs * Echo (10/22) approx greater than 50% EF; severely thickened mitral valve; cannot rule out vegetation; aortic valve severely thickened. refer to full report 8) Diabetes Assessment & Plan: * [id number]: 7.0 * Patient is off insulin regimen given she came in for altered mental status secondary to hypoglycemia * Monitor nutrition prior to starting insulin regimen * Increased Lantus 15 units subqHS * start low dose novolog insulin sliding scale * start Novolog 2 units tidac * monitor accuchecks QAC and HS * Patient is also on supplements 9) Anemia Assessment & Plan: * suspecting secondary to anemia of chronic kidney disease * monitor H/H * Feosol 325mg PO bid (active since 10/22/16) * low iron and low iron stores * refused blood transfusion 10/25/16 10) Unintentional weight loss; hx of colon cancer Assessment & Plan: * Monitor calorie counts * GI consult (Dr. Bee) on board * CT chest, abd,pelvis w/o contrast- no apparent mass noted. thickening of rectal wall noted; mild stranding of perirectal fat; underlying proctitis can be considered. Surgical suture lines noted in bowel area. Refer to complete report * Patient defers workup per GI * Patient is on PO supplements and on megace 400mg PO daily to encourage appetite 11) Prophylactic measure Assessment & Plan: * Heparin SC Q8 hours * Protonix 40mg PO daily * PT/OT eval- F/U * OOB to chair * IVC filter * Monitor calorie count * Palliative care: goals of care * Megace 400mg PO daily * Pending establishment of PICC line Disposition: * Patient will need IV access (likely) PICC line to re-establish IV Abx to cover for pneumonia and UTI; and follow-up procalcitonin when IV abx is re- established * Follow-up with social worker assistant to assist family with Home Care assistance and with Medicaid application <Tamara Blanco - Last Filed: 10/28/16 15:08> Subjective - Date & Time of Evaluation Date of Evaluation: 10/28/16 Time of Evaluation: 08:00 - Subjective Subjective: Medicine Progress Note- Dr. Smith's Service: Patient seen and examined at bedside this AM. Patient states she is feeling well this AM. She is breathing better and is in no acute distress. Denies dysuria, fevers, chills, nausea, vomiting, headaches, chest pain. She admits to "a little" shortness of breath. Cough has improved. Patient continues to refuse PICC. Objective - Vital Signs/Intake and Output Vital Signs (last 24 hours): Temp Pulse Resp BP Pulse Ox 98.5 F 82 20 152/70 H 98 10/28/16 08:55 10/28/16 08:55 10/28/16 08:55 10/28/16 08:55 10/28/16 08:55 - Medications Medications: Current Medications Aspirin (Ecotrin) 81 mg PO DAILY [facility] Last Admin: 10/27/16 10:07 Dose: 81 mg Ciprofloxacin (Cipro) 250 mg PO BID [facility] Last Admin: 10/27/16 11:25 Dose: Not Given Epoetin Alan (Procrit) 10,000 unit SC QWK [facility] Ferrous Sulfate (Feosol) 325 mg PO BID [facility] Last Admin: 10/27/16 20:20 Dose: 325 mg Furosemide (Lasix) 20 mg IVP BID [facility] Last Admin: 10/26/16 10:00 Dose: Not Given Furosemide (Lasix) 20 mg PO BID [facility] Last Admin: 10/27/16 20:21 Dose: 20 mg Heparin Sodium (Porcine) (Heparin) 5,000 units SC Q8 [facility] Last Admin: 10/28/16 06:08 Dose: Not Given Azithromycin 500 mg/ Sodium (Chloride) 250 mls @ 250 mls/hr IVPB Q24H [facility] Last Admin: 10/26/16 10:00 Dose: Not Given Ceftriaxone Sodium 1 gm/ (Sodium Chloride) 100 mls @ 100 mls/hr IVPB DAILY [facility] Last Admin: 10/26/16 10:00 Dose: Not Given Insulin Aspart (Novolog) 0 unit SC ACHS [facility] PRN Reason: Protocol Last Admin: 10/27/16 22:16 Dose: 4 unit Insulin Glargine (Lantus) 10 unit SC HS [facility] Last Admin: 10/27/16 22:16 Dose: 10 units Labetalol HCl (Trandate) 200 mg PO BID [facility] Last Admin: 10/27/16 20:21 Dose: 200 mg Lisinopril (Zestril) 5 mg PO DAILY [facility] Last Admin: 10/27/16 10:06 Dose: 5 mg Megestrol Acetate (Megace) 40 mg PO DAILY [facility] Last Admin: 10/27/16 10:07 Dose: 40 mg Moxifloxacin HCl (Avelox) 400 mg PO DAILY [facility] Last Admin: 10/27/16 10:06 Dose: 400 mg Ondansetron HCl (Zofran Inj) 4 mg IVP Q6 PRN PRN Reason: Nausea/Vomiting Last Admin: 10/21/16 12:47 Dose: 4 mg Pantoprazole Sodium (Protonix Ec Tab) 20 mg PO DAILY [facility] Last Admin: 10/27/16 10:07 Dose: 20 mg Sodium Bicarbonate (Sodium Bicarbonate Tab) 1,300 mg PO BID [facility] Last Admin: 10/27/16 20:21 Dose: 1,300 mg - Labs Labs: 10/26/16 07:12 10/26/16 07:12 - Constitutional Appears: No Acute Distress - Head Exam Head Exam: NORMAL INSPECTION, NORMOCEPHALIC - Eye Exam Eye Exam: EOMI, Normal appearance - ENT Exam ENT Exam: Mucous Membranes Moist - Respiratory Exam Respiratory Exam: Rales (right LL), NORMAL BREATHING PATTERN. absent: Wheezes - Cardiovascular Exam Cardiovascular Exam: REGULAR RHYTHM, +S1, +S2 - GI/Abdominal Exam GI & Abdominal Exam: Soft. absent: Distended, Tenderness - Extremities Exam Extremities Exam: Full ROM. absent: Normal Inspection (venous stasis changes), Pedal Edema - Back Exam Back Exam: NORMAL INSPECTION - Neurological Exam Neurological Exam: Alert, Awake, Oriented x3 - Psychiatric Exam Psychiatric exam: Normal Affect, Normal Mood - Skin Skin Exam: Dry, Normal Color, Warm Assessment and Plan - Assessment and Plan (Free Text) Assessment: 1) Pneumonia w/ pleural effusions noted Patient with no IV access this morning (10/28). Refusing PICC line. WBC is negative and afebrile. Cultures are negative for 5 days at this time. Patient was not given PO Cipro yesterday due to contraindications 2/2 renal clearance. Repeat CXR 10/26/16 showed Multifocal ill-defined opacity, nonspecific. Possible pneumonia or pulmonary edema. Small bilateral pleural effusion. Chest xray (10/23/16): new bilateral pleural effusions; persistent bilateral multifocal infiltrates Zithromax,(Started 10/21/16) . Currently held patient does not have IV access. On PO avelox daily until line obtained. Rocephin 1 gram IV daily (Started 10/21/16)- held due to no IV access. Lasix 20 mg IV BID daily held due to no IV access. Pt on Lasix 20 mg PO BID Elevated BNP. Procalcitonin elevated f/u CXR in the AM Patient has agreed to PICC in the AM with IV anxiolytic. 2) Diabetes Mellitus Hyperglycemic Recent accucheks have been 317, 500, 442, 335 since she is eating better now. ISS changed to HIGH. Increase Lantus to 15 units SC HS Add Novolog 2 units TIDACC ISS high dose Encourage intake Monitor Status: Acute 3) Anorexia with Weight Loss Hx of Colon cancer- [place] [facility] [place] could not be located per GI. Will have to call PMD patient would rather utilize her prior GI doctor. Monitor calorie counts, Megace given. GI consult (Dr. Bee/Tania) on board. No immediate plans for PEG tube. Encourage patient to eat. Appetite may return upon treatment of underlying pneumonia/UTI. NG tube feeds suggested if patient's lack of appetite continued. Patient made aware and will attempt to eat more. CT chest, abd,pelvis w/o contrast- no apparent mass noted. thickening of rectal wall noted; mild stranding of perirectal fat. Surgical suture lines noted in bowel area. 4) UTI (urinary tract infection) Will reorder UA today since last UA 10/20. Patient with no IV access - PO Cipro ordered but was held due to contraindications 2/2 renal clearance. Was on IV Rocephin, urine culture negative, blood culture no growth to date Rocephin IVPB held at this time due to no IV access. Patient has agreed to PICC in the AM with IV anxiolytic. 5) Chronic kidney disease (CKD) Dr. Martinez consulted, patient may need dialysis at some point in the future On procrit PTH elevated at 163. 6) Hypertension Labetalol 200 mg PO BID, Zestril 5 mg PO daily Echo (10/22) approx greater than 50% EF; severely thickened mitral valve; cannot rule out vegetation; aortic valve severely thickened. refer to full report. 7) Anemia Patient refusing blood draws. Need to monitor in case it decreases further, per previous notes she did not want PRBC/transfuion yet. Most likely anemia of chronic disease secondarily to CKD Ferrous sulfate daily Iron studies Hgb stable. 8) Hyperkalemia Stable as per last blood work. Patient refusing blood draws. Cont to monitor 9) Mild Cognitive Impairment No psych meds at this time Support and psychoeducation rendered Daughter aware Psych support and psychoeducation provided- Consult to Dr. Powers 10) Prophylactic measure Heparin SC Q8 PPI PT/OT PT eval recommends JULIA GUAJARDO to chair
[2016-10-28] MEDS: Pantoprazole 20 mg EC Tab PO SCH (10:05)
--- NOTE | 2016-10-28 15:20 | RAD ---
PROCEDURE: Radiographs of the neck (soft tissue). HISTORY: palpable tender left submandibular lymph node COMPARISON: Chest x-ray performed 10/26/16 TECHNIQUE: Frontal and Lateral Radiographs of the neck, optimized for soft tissue visualization. FINDINGS: SOFT TISSUES: No radiopaque foreign body seen. Extensive calcifications within the left neck likely related to the carotid artery. CERVICAL SPINE: Cervical spine not visualized beyond C5 on lateral view. Limited visualization demonstrates straightening of the normal cervical lordosis may be related to muscle spasm or positioning. OTHER FINDINGS: Hazy and patchy right greater than left upper lobe infiltrates. Dense atherosclerotic calcifications the aorta. IMPRESSION: Provided history of left submandibular lymph node cannot be assessed by this study. Soft tissue neck with IV contrast recommended for further evaluation. Extensive calcifications within the left neck likely related to the carotid artery. Hazy and patchy right greater than left upper lobe infiltrates. Cervical spine not visualized beyond C5 on lateral view. Limited visualization demonstrates straightening of the normal cervical lordosis may be related to muscle spasm or positioning.
--- NOTE | 2016-10-28 15:53 | CP.PCM.PN ---
Subjective - Date & Time of Evaluation Date of Evaluation: 10/28/16 Time of Evaluation: 09:00 - Subjective Subjective: 76 year old female with a history of IDDM and HTN brought in by after she was found by her daughter at home with acute confusion and found to bey hypoglycemic. Being treated for UTI/ Pneumonia rx in progress Objective - Vital Signs/Intake and Output Vital Signs (last 24 hours): Temp Pulse Resp BP Pulse Ox 98.5 F 82 20 152/70 H 98 10/28/16 08:55 10/28/16 08:55 10/28/16 08:55 10/28/16 10:04 10/28/16 08:55 - Medications Medications: Current Medications Aspirin (Ecotrin) 81 mg PO DAILY [facility] Last Admin: 10/28/16 10:04 Dose: 81 mg Ciprofloxacin (Cipro) 250 mg PO BID [facility] Last Admin: 10/27/16 11:25 Dose: Not Given Epoetin Alan (Procrit) 10,000 unit SC QWK [facility] Ferrous Sulfate (Feosol) 325 mg PO BID [facility] Last Admin: 10/28/16 10:04 Dose: 325 mg Furosemide (Lasix) 20 mg IVP BID [facility] Last Admin: 10/26/16 10:00 Dose: Not Given Furosemide (Lasix) 20 mg PO BID [facility] Last Admin: 10/28/16 10:04 Dose: 20 mg Heparin Sodium (Porcine) (Heparin) 5,000 units SC Q8 [facility] Last Admin: 10/28/16 13:50 Dose: 5,000 units Azithromycin 500 mg/ Sodium (Chloride) 250 mls @ 250 mls/hr IVPB Q24H [facility] Last Admin: 10/26/16 10:00 Dose: Not Given Ceftriaxone Sodium 1 gm/ (Sodium Chloride) 100 mls @ 100 mls/hr IVPB DAILY [facility] Last Admin: 10/26/16 10:00 Dose: Not Given Insulin Aspart (Novolog) 2 unit SC TIDAC [facility] Insulin Aspart (Novolog) 0 unit SC ACHS [facility] PRN Reason: Protocol Insulin Glargine (Lantus) 15 unit SC HS [facility] Labetalol HCl (Trandate) 200 mg PO BID [facility] Last Admin: 10/28/16 10:05 Dose: 200 mg Lisinopril (Zestril) 5 mg PO DAILY [facility] Last Admin: 10/28/16 10:05 Dose: 5 mg Megestrol Acetate (Megace) 40 mg PO DAILY [facility] Last Admin: 10/28/16 10:04 Dose: 40 mg Moxifloxacin HCl (Avelox) 400 mg PO DAILY [facility] Last Admin: 10/28/16 10:04 Dose: 400 mg Ondansetron HCl (Zofran Inj) 4 mg IVP Q6 PRN PRN Reason: Nausea/Vomiting Last Admin: 10/21/16 12:47 Dose: 4 mg Pantoprazole Sodium (Protonix Ec Tab) 20 mg PO DAILY [facility] Last Admin: 10/28/16 10:05 Dose: 20 mg Sodium Bicarbonate (Sodium Bicarbonate Tab) 1,300 mg PO BID [facility] Last Admin: 10/28/16 10:03 Dose: 1,300 mg - Labs Labs: 10/26/16 07:12 10/26/16 07:12 - Constitutional Appears: Non-toxic, Cachectic, Chronically Ill - Head Exam Head Exam: NORMOCEPHALIC - Eye Exam Eye Exam: PERRL. absent: Scleral icterus - ENT Exam ENT Exam: Mucous Membranes Dry - Neck Exam Neck Exam: absent: Lymphadenopathy - Respiratory Exam Respiratory Exam: Decreased Breath Sounds, Clear to Ausculation Bilateral - Cardiovascular Exam Cardiovascular Exam: REGULAR RHYTHM, +S1, +S2 - GI/Abdominal Exam GI & Abdominal Exam: Distended, Soft. absent: Tenderness Assessment and Plan (1) Altered mental status Status: Acute (2) CHF (congestive heart failure) Status: Acute (3) Diabetic hypoglycemia Status: Acute (4) Pneumonia Status: Acute (5) UTI (urinary tract infection) Status: Acute
--- NOTE | 2016-10-28 17:02 | CP.PCM.PN ---
Subjective - Date & Time of Evaluation Date of Evaluation: 10/28/16 Time of Evaluation: 16:59 - Subjective Subjective: COVERING DR HENRIQUEZ/TANIA No pain or bleeding Family at bedside Objective - Vital Signs/Intake and Output Vital Signs (last 24 hours): Temp Pulse Resp BP Pulse Ox 97.9 F 76 20 133/61 98 10/28/16 15:45 10/28/16 15:45 10/28/16 15:45 10/28/16 15:45 10/28/16 15:45 - Medications Medications: Current Medications Aspirin (Ecotrin) 81 mg PO DAILY [facility] Last Admin: 10/28/16 10:04 Dose: 81 mg Ciprofloxacin (Cipro) 250 mg PO BID [facility] Last Admin: 10/27/16 11:25 Dose: Not Given Epoetin Alan (Procrit) 10,000 unit SC QWK [facility] Ferrous Sulfate (Feosol) 325 mg PO BID [facility] Last Admin: 10/28/16 10:04 Dose: 325 mg Furosemide (Lasix) 20 mg IVP BID [facility] Last Admin: 10/26/16 10:00 Dose: Not Given Furosemide (Lasix) 20 mg PO BID [facility] Last Admin: 10/28/16 10:04 Dose: 20 mg Heparin Sodium (Porcine) (Heparin) 5,000 units SC Q8 [facility] Last Admin: 10/28/16 13:50 Dose: 5,000 units Azithromycin 500 mg/ Sodium (Chloride) 250 mls @ 250 mls/hr IVPB Q24H [facility] Last Admin: 10/26/16 10:00 Dose: Not Given Ceftriaxone Sodium 1 gm/ (Sodium Chloride) 100 mls @ 100 mls/hr IVPB DAILY [facility] Last Admin: 10/26/16 10:00 Dose: Not Given Insulin Aspart (Novolog) 2 unit SC TIDAC [facility] Insulin Aspart (Novolog) 0 unit SC ACHS [facility] PRN Reason: Protocol Insulin Glargine (Lantus) 15 unit SC HS [facility] Labetalol HCl (Trandate) 200 mg PO BID [facility] Last Admin: 10/28/16 10:05 Dose: 200 mg Lisinopril (Zestril) 5 mg PO DAILY [facility] Last Admin: 10/28/16 10:05 Dose: 5 mg Megestrol Acetate (Megace) 40 mg PO DAILY [facility] Last Admin: 10/28/16 10:04 Dose: 40 mg Moxifloxacin HCl (Avelox) 400 mg PO DAILY [facility] Last Admin: 10/28/16 10:04 Dose: 400 mg Ondansetron HCl (Zofran Inj) 4 mg IVP Q6 PRN PRN Reason: Nausea/Vomiting Last Admin: 10/21/16 12:47 Dose: 4 mg Pantoprazole Sodium (Protonix Ec Tab) 20 mg PO DAILY [facility] Last Admin: 10/28/16 10:05 Dose: 20 mg Sodium Bicarbonate (Sodium Bicarbonate Tab) 1,300 mg PO BID [facility] Last Admin: 10/28/16 10:03 Dose: 1,300 mg - Labs Labs: 10/26/16 07:12 10/26/16 07:12 - Constitutional Appears: No Acute Distress - Eye Exam Eye Exam: EOMI, PERRL - Respiratory Exam Respiratory Exam: NORMAL BREATHING PATTERN - Cardiovascular Exam Cardiovascular Exam: REGULAR RHYTHM - GI/Abdominal Exam GI & Abdominal Exam: Soft, Hypoactive Bowel Sounds. absent: Tenderness Assessment and Plan - Assessment and Plan (Free Text) Assessment: UTI/Pneumonia/Sepsis Anemia CHF Renal Insuffiency h/o colon cancer Continue supportive care Antibiotics per ID No present plans for PEG or colonoscopy as per family wishes. Calorie counts Dr Henriquez/Tania will follow as needed, will sign off at this time
[2016-10-28] MEDS: (Lantus) Insulin Glargine, Recombinant SC SCH (21:38)
[2016-10-29] MEDS: Pantoprazole 20 mg EC Tab PO SCH (09:36)
[2016-10-29] MEDS: (Novolog) Insulin Aspart, Recombinant 100 u/ml 10 ml vial SC SCH ×7 (09:37→22:07)
[2016-10-29] MEDS ORDERED: Lidocaine 2% Inj (20ml) ONE (09:38)
--- NOTE | 2016-10-29 10:22 | CP.PCM.PN ---
<Mary CarmenGauravmynor - Last Filed: 10/29/16 15:30> Subjective - Date & Time of Evaluation Date of Evaluation: 10/29/16 Time of Evaluation: 11:39 - Subjective Subjective: PGY 1 Med Note- Dr. Smith's service Pt seen and examined in no apparent acute distress. Patient received PICC line earlier today. Patient still a little tearful with palpation of right arm but consolable. Patient denies any chest pain, palpations, shortness of breath, fevers, chils, nausea, vomiting or diarrhea at this time. Objective - Vital Signs/Intake and Output Vital Signs (last 24 hours): Temp Pulse Resp BP Pulse Ox 98 F 90 20 128/59 L 95 10/29/16 08:40 10/29/16 08:40 10/29/16 08:40 10/29/16 09:35 10/29/16 08:40 Intake and Output: 10/29/16 10/29/16 06:59 18:59 Output Total 500 Balance -500 - Medications Medications: Current Medications Aspirin (Ecotrin) 81 mg PO DAILY [facility] Last Admin: 10/29/16 09:35 Dose: 81 mg Ciprofloxacin (Cipro) 250 mg PO BID [facility] Last Admin: 10/27/16 11:25 Dose: Not Given Epoetin Alan (Procrit) 10,000 unit SC QWK [facility] Ferrous Sulfate (Feosol) 325 mg PO BID [facility] Last Admin: 10/29/16 09:35 Dose: 325 mg Furosemide (Lasix) 20 mg IVP BID [facility] Last Admin: 10/26/16 10:00 Dose: Not Given Furosemide (Lasix) 20 mg PO BID [facility] Last Admin: 10/29/16 09:35 Dose: 20 mg Heparin Sodium (Porcine) (Heparin) 5,000 units SC Q8 [facility] Last Admin: 10/29/16 05:21 Dose: Not Given Azithromycin 500 mg/ Sodium (Chloride) 250 mls @ 250 mls/hr IVPB Q24H [facility] Last Admin: 10/26/16 10:00 Dose: Not Given Ceftriaxone Sodium 1 gm/ (Sodium Chloride) 100 mls @ 100 mls/hr IVPB DAILY [facility] Last Admin: 10/26/16 10:00 Dose: Not Given Insulin Aspart (Novolog) 2 unit SC TIDAC [facility] Last Admin: 10/29/16 09:37 Dose: 2 unit Insulin Aspart (Novolog) 0 unit SC ACHS [facility] PRN Reason: Protocol Last Admin: 10/29/16 09:38 Dose: 3 unit Insulin Glargine (Lantus) 15 unit SC HS [facility] Last Admin: 10/28/16 21:38 Dose: 15 u Labetalol HCl (Trandate) 200 mg PO BID [facility] Last Admin: 10/29/16 09:35 Dose: 200 mg Lisinopril (Zestril) 5 mg PO DAILY [facility] Last Admin: 10/29/16 09:36 Dose: 5 mg Megestrol Acetate (Megace) 40 mg PO DAILY [facility] Last Admin: 10/29/16 09:34 Dose: 40 mg Moxifloxacin HCl (Avelox) 400 mg PO DAILY [facility] Last Admin: 10/29/16 09:34 Dose: 400 mg Ondansetron HCl (Zofran Inj) 4 mg IVP Q6 PRN PRN Reason: Nausea/Vomiting Last Admin: 10/21/16 12:47 Dose: 4 mg Pantoprazole Sodium (Protonix Ec Tab) 20 mg PO DAILY [facility] Last Admin: 10/29/16 09:36 Dose: 20 mg Sodium Bicarbonate (Sodium Bicarbonate Tab) 1,300 mg PO BID [facility] Last Admin: 10/29/16 09:36 Dose: 1,300 mg - Labs Labs: 10/26/16 07:12 10/26/16 07:12 - Constitutional Appears: Non-toxic, No Acute Distress - Head Exam Head Exam: ATRAUMATIC, NORMAL INSPECTION, NORMOCEPHALIC - Eye Exam Eye Exam: EOMI, Normal appearance, PERRL Pupil Exam: NORMAL ACCOMODATION - ENT Exam ENT Exam: Mucous Membranes Moist - Neck Exam Neck Exam: Full ROM - Respiratory Exam Respiratory Exam: NORMAL BREATHING PATTERN. absent: Wheezes - Cardiovascular Exam Cardiovascular Exam: +S1, +S2 - GI/Abdominal Exam GI & Abdominal Exam: Soft, Normal Bowel Sounds - Extremities Exam Extremities Exam: Full ROM. absent: Pedal Edema Additional comments: PICC line in right arm in place, site, c/d/i - Back Exam Back Exam: Full ROM - Neurological Exam Neurological Exam: Alert, Awake, CN II-XII Intact, Oriented x3 - Psychiatric Exam Psychiatric exam: Anxious, Normal Affect, Normal Mood - Skin Skin Exam: Dry, Warm Assessment and Plan - Assessment and Plan (Free Text) Assessment: Pneumonia w/ pleural effusions noted PICC line placed by IR this morning 10/29/16 WBC is negative and afebrile. Cultures remain negative at this time. IV abx restarted Azithromycin and Rocephin 10/29 XRAY: F/U final report Repeat CXR 10/26/16 showed Multifocal ill-defined opacity, nonspecific. Possible pneumonia or pulmonary edema. Small bilateral pleural effusion. Chest xray (10/23/16): new bilateral pleural effusions; persistent bilateral multifocal infiltrates Lasix 20 mg IV BID continued Elevated BNP. Procalcitonin elevated Diabetes Mellitus Hyperglycemic Recent accucheks improved to 200s ISS high dose with improved intake. Lantus to 15 units SC HS Novolog 2 units TIDACC ISS high dose Encourage intake Monitor Status: Acute Anorexia with Weight Loss Hx of Colon cancer- prev worked up at [facility] however records could not be located per GI. Will have to call PMD bc patient would rather utilize her prior GI doctor. Monitor calorie counts, Megace given. GI consult (Dr. Bee/Tania) on board. No immediate plans for PEG tube. Encourage patient to eat. Appetite may return upon treatment of underlying pneumonia/UTI. NG tube feeds suggested if patient's lack of appetite continued. Patient made aware and will attempt to eat more. CT chest, abd,pelvis w/o contrast- no apparent mass noted. thickening of rectal wall noted; mild stranding of perirectal fat. Surgical suture lines noted in bowel area. UTI (urinary tract infection) F/U UA studies. Still uncollected. Patient with no IV access - PO Cipro ordered but was held due to contraindications 2/2 renal clearance. Was on IV Rocephin, urine culture negative, blood culture no growth to date Rocephin IVPB held at this time due to no IV access. Patient has agreed to PICC in the AM with IV anxiolytic. Chronic kidney disease (CKD) Dr. Martinez consulted, patient may need dialysis at some point in the future On procrit PTH elevated at 163. Hypertension Labetalol 200 mg PO BID, Zestril 5 mg PO daily Echo (10/22) approx greater than 50% EF; severely thickened mitral valve; cannot rule out vegetation; aortic valve severely thickened. refer to full report. Anemia May require transfusion. Hgb decreased to 7.3. Will re-visit conversation with patient and patient's daughter. Consent obtained from last week prior to need for new IV access. Most likely anemia of chronic disease secondarily to CKD Ferrous sulfate daily Iron studies Hgb stable. F/U stool occult Hyperkalemia Stable as per last blood work. Cont to monitor Mild Cognitive Impairment No psych meds at this time Support and psychoeducation rendered Daughter aware Psych support and psychoeducation provided- Consult to Dr. Powers Prophylactic measure Heparin SC Q8 PPI PT/OT PT faith recommends JULIA GUAJARDO to chair <LuisYamileth V - Last Filed: 10/30/16 00:42> Objective - Vital Signs/Intake and Output Vital Signs (last 24 hours): Temp Pulse Resp BP Pulse Ox 98.9 F 82 20 159/71 H 96 10/29/16 22:32 10/29/16 22:32 10/29/16 22:32 10/29/16 22:32 10/29/16 15:42 Intake and Output: 10/29/16 10/30/16 18:59 06:59 Intake Total 480 0 Balance 480 0 - Medications Medications: Current Medications Aspirin (Ecotrin) 81 mg PO DAILY [facility] Last Admin: 10/29/16 09:35 Dose: 81 mg Epoetin Alan (Procrit) 10,000 unit SC QWK [facility] Ferrous Sulfate (Feosol) 325 mg PO BID [facility] Last Admin: 10/29/16 20:40 Dose: 325 mg Furosemide (Lasix) 20 mg IVP BID [facility] Last Admin: 10/29/16 20:48 Dose: 20 mg Heparin Sodium (Porcine) (Heparin) 5,000 units SC Q8 [facility] Last Admin: 10/29/16 22:02 Dose: Not Given Azithromycin 500 mg/ Sodium (Chloride) 250 mls @ 250 mls/hr IVPB Q24H [facility] Last Admin: 10/26/16 10:00 Dose: Not Given Ceftriaxone Sodium 1 gm/ (Sodium Chloride) 100 mls @ 100 mls/hr IVPB DAILY [facility] Last Admin: 10/26/16 10:00 Dose: Not Given Insulin Aspart (Novolog) 0 unit SC ACHS [facility] PRN Reason: Protocol Last Admin: 10/29/16 22:07 Dose: Not Given Insulin Aspart (Novolog) 5 unit SC TIDAC [facility] Insulin Glargine (Lantus) 20 unit SC HS [facility] Labetalol HCl (Trandate) 200 mg PO BID [facility] Last Admin: 10/29/16 20:40 Dose: 200 mg Lisinopril (Zestril) 5 mg PO DAILY [facility] Last Admin: 10/29/16 09:36 Dose: 5 mg Megestrol Acetate (Megace) 40 mg PO DAILY [facility] Last Admin: 10/29/16 09:34 Dose: 40 mg Ondansetron HCl (Zofran Inj) 4 mg IVP Q6 PRN PRN Reason: Nausea/Vomiting Last Admin: 10/21/16 12:47 Dose: 4 mg Pantoprazole Sodium (Protonix Ec Tab) 20 mg PO DAILY [facility] Last Admin: 10/29/16 09:36 Dose: 20 mg Sodium Bicarbonate (Sodium Bicarbonate Tab) 1,300 mg PO BID [facility] Last Admin: 10/29/16 20:40 Dose: 1,300 mg - Labs Labs: 10/29/16 11:40 10/29/16 11:40 Attending/Attestation - Attestation I have personally seen and examined this patient.: Yes I have fully participated in the care of the patient.: Yes I have reviewed all pertinent clinical information, including history, physical exam and plan: Yes Notes (Text): This is late computer entry for 10/29/16. Patient seen, examined, and case discussed with day-time resident. Patient looks better, awake, alert, and oriented X3. Patient is very calm today. Patient seen status post placement of PICC line. Patient denies acute complaints. Reports she would like to sleep but everyone keeps waking her. Patient ordered for blood work since have not able to draw since lack of access. Reviewed chest xray noting for opacities and pleural effusions. Restarted IV abx and IV Lasix for CAP and pleural effusions Ordered for repeat procalcitonin and chest xray portable for tomorrow. Patient's hgb 7.3; recommend for type 1unit PRBC to transfuse. Soft tissue xray no acute findings; noted possible reactive, lymph node pain considering patient is being treated for pneumonia, will need monitoring 1) Sepsis Assessment & Plan: * Criteria: febrile, tachycardia, and source of infection: pneumonia and urinary tract infection * Procalcitonin: 2.46 (elevated)-->f/u repeat procalcitionin * Chest xray (10/20/16) Diffuse bilateral infiltrates likely pulmonary edema/CHF * Chest xray (10/23/16): new bilateral pleural effusions; persistent bilateral multifocal infiltrates * Chest xray (10/26/16): multifocal ill-defined opacity, nonspecific. Possible pneumonia or pulmonary edema. small bilateral pleural effusion * Chest/Abdomen/Pelvis (10/22/16): bilateral moderate size pleural effusion with associated compressive atelectasis. Bilateral upper lobe airspace patchy opacities. Minimal perihepatic fluid. Scattered calcifications in the left breast * Rocephin 1 gram IV qdaily (active since 10/21/16)--> restarted on 10/29/16 * Azithromycin 500mg IV Q24 hours (active since 10/21/16)-->restarted on 10/29/16 * Blood cultures (10/20/16): no growth X2 * Urine culture (10/20/16): no growth * monitor CBC, and temperature * Infectious disease (Dr. Melgar) on the case 2) Pneumonia Assessment & Plan: * Procalcitonin: 2.46 (elevated) * Chest xray (10/20/16) Diffuse bilateral infiltrates likely pulmonary edema/CHF * Chest xray (10/23/16): new bilateral pleural effusions; persistent bilateral multifocal infiltrates * Chest xray (10/26/16): multifocal ill-defined opacity, nonspecific. Possible pneumonia or pulmonary edema. small bilateral pleural effusion * Chest/Abdomen/Pelvis (10/22/16): bilateral moderate size pleural effusion with associated compressive atelectasis. Bilateral upper lobe airspace patchy opacities. Minimal perihepatic fluid. Scattered calcifications in the left breast * Chest xray (10/29/16): b/l airspace opacities and b/l pleural effusions * Rocephin 1 gram IV qdaily (active since 10/21/16) * Azithromycin 500mg IV Q24 hours (active since 10/21/16) * Blood cultures (10/20/16): no growth X 5 days X2 * Urine culture (10/20/16): no growth * monitor CBC, and temperature * Tmax: 99.1F * Infectious disease (Dr. Melgar)-->on board 3) Pleural effusions Assessment & Plan: * Chest xray (10/20/16) Diffuse bilateral infiltrates likely pulmonary edema/CHF * Chest xray (10/23/16): new bilateral pleural effusions; persistent bilateral multifocal infiltrates * Chest xray (10/26/16): multifocal ill-defined opacity, nonspecific. Possible pneumonia or pulmonary edema. small bilateral pleural effusion * Chest/Abdomen/Pelvis (10/22/16): bilateral moderate size pleural effusion with associated compressive atelectasis. Bilateral upper lobe airspace patchy opacities. Minimal perihepatic fluid. Scattered calcifications in the left breast * Chest xray (10/29/16): b/l airspace opacities and b/l pleural effusions * Lasix 20mg IV bid 4) Metabolic encephalopathy Assessment & Plan: * Etiologies including: hypoglycemia, pneumonia, and urinary tract infection, sepsis 5) Chronic Kidney Disease Assessment & Plan: * Nephrology (Dr. Martinez) on the case * monitor BUN/Cr * Sodium bicarbonate 1300mg PO bid * lasix 20mg IV bid 6) UTI (urinary tract infection) Assessment & Plan: * Rocephin 1 gram IV qdaily (active since 10/21/16) off secondary to lack of IV access * Urine culture (10/20/16): no growth * Abnormal UA (10/20/16): positive protein, glucose, blood, and pyuria, hematuria * Avelox 400mg PO daily (active since 10/26/16) until IV line is re-established 7) Hypertension Assessment & Plan: * Labetalol 200 mg PO BID, Zestril 5 mg PO daily * Monitor vital signs * Echo (10/22) approx greater than 50% EF; severely thickened mitral valve; cannot rule out vegetation; aortic valve severely thickened. refer to full report 8) Diabetes Assessment & Plan: * [id number]: 7.0 * Patient is off insulin regimen given she came in for altered mental status secondary to hypoglycemia * Monitor nutrition prior to starting insulin regimen * Increased Lantus 15 units subqHS * start low dose novolog insulin sliding scale * start Novolog 2 units tidac * monitor accuchecks QAC and HS * Patient is also on supplements 9) Anemia Assessment & Plan: * suspecting secondary to anemia of chronic kidney disease * monitor H/H * Feosol 325mg PO bid (active since 10/22/16) * low iron and low iron stores * refused blood transfusion 4/27/17; permitted for 1 unit of PRBC to be transfused * ordered for stool occult blood 10) Unintentional weight loss; hx of colon cancer Assessment & Plan: * Monitor calorie counts * GI consult (Dr. Bee) on board * CT chest, abd,pelvis w/o contrast- no apparent mass noted. thickening of rectal wall noted; mild stranding of perirectal fat; underlying proctitis can be considered. Surgical suture lines noted in bowel area. Refer to complete report * Patient defers workup per GI * Patient is on PO supplements and on megace 400mg PO daily to encourage appetite 11) Prophylactic measure Assessment & Plan: * Heparin SC Q8 hours * Protonix 40mg PO daily * PT/OT eval- F/U * OOB to chair * IVC filter * Monitor calorie count * Palliative care: goals of care * Megace 400mg PO daily * PICC line Disposition: * Patient has IV access, restart IV abx see if effective for patient's pneumonia and UTI; and follow-up procalcitonin when IV abx is re-established and portable chest xray for pleural effusion * Follow-up with social problems specialist to assist family with Home Care assistance and with Medicaid application * Discharge planning likely to subacute rehab when procalcitonin improves and patient is clincally improving
--- NOTE | 2016-10-29 10:29 | PCM.SURG1 ---
Surgeon's Initial Post Op Note - Surgeon's Notes Surgeon: Ayan Lang MD Preparation Room Worker: NONE Type of Anesthesia: Local Pre-Operative Diagnosis: Poor venous access Operative Findings: Small right basilic vein. Patent right brachial vein. Post-Operative Diagnosis: Poor venous access Operation Performed: Right brachial vein single lumen picc placement, 39 cm. Tip in SVC. Specimen/Specimens Removed: NONE Estimated Blood Loss: EBL {In ML}: 2 Blood Products Given: N/A Drains Used: No Drains Post-Op Condition: Fair Date of Surgery/Procedure: 10/29/16 Time of Surgery/Procedure: 10:20
--- NOTE | 2016-10-29 11:04 | CP.PCM.PN ---
Subjective - Date & Time of Evaluation Date of Evaluation: 10/29/16 Time of Evaluation: 10:50 - Subjective Subjective: No respiratory distress Objective - Vital Signs/Intake and Output Vital Signs (last 24 hours): Temp Pulse Resp BP Pulse Ox 98 F 90 20 128/59 L 95 10/29/16 08:40 10/29/16 08:40 10/29/16 08:40 10/29/16 09:35 10/29/16 08:40 Intake and Output: 10/29/16 10/29/16 06:59 18:59 Output Total 500 Balance -500 - Medications Medications: Current Medications Aspirin (Ecotrin) 81 mg PO DAILY [facility] Last Admin: 10/29/16 09:35 Dose: 81 mg Ciprofloxacin (Cipro) 250 mg PO BID [facility] Last Admin: 10/27/16 11:25 Dose: Not Given Epoetin Alan (Procrit) 10,000 unit SC QWK [facility] Ferrous Sulfate (Feosol) 325 mg PO BID [facility] Last Admin: 10/29/16 09:35 Dose: 325 mg Furosemide (Lasix) 20 mg IVP BID [facility] Last Admin: 10/26/16 10:00 Dose: Not Given Furosemide (Lasix) 20 mg PO BID [facility] Last Admin: 10/29/16 09:35 Dose: 20 mg Heparin Sodium (Porcine) (Heparin) 5,000 units SC Q8 [facility] Last Admin: 10/29/16 05:21 Dose: Not Given Azithromycin 500 mg/ Sodium (Chloride) 250 mls @ 250 mls/hr IVPB Q24H [facility] Last Admin: 10/26/16 10:00 Dose: Not Given Ceftriaxone Sodium 1 gm/ (Sodium Chloride) 100 mls @ 100 mls/hr IVPB DAILY [facility] Last Admin: 10/26/16 10:00 Dose: Not Given Insulin Aspart (Novolog) 2 unit SC TIDAC [facility] Last Admin: 10/29/16 09:37 Dose: 2 unit Insulin Aspart (Novolog) 0 unit SC ACHS [facility] PRN Reason: Protocol Last Admin: 10/29/16 09:38 Dose: 3 unit Insulin Glargine (Lantus) 15 unit SC HS [facility] Last Admin: 10/28/16 21:38 Dose: 15 u Labetalol HCl (Trandate) 200 mg PO BID [facility] Last Admin: 10/29/16 09:35 Dose: 200 mg Lisinopril (Zestril) 5 mg PO DAILY [facility] Last Admin: 10/29/16 09:36 Dose: 5 mg Megestrol Acetate (Megace) 40 mg PO DAILY [facility] Last Admin: 10/29/16 09:34 Dose: 40 mg Moxifloxacin HCl (Avelox) 400 mg PO DAILY [facility] Last Admin: 10/29/16 09:34 Dose: 400 mg Ondansetron HCl (Zofran Inj) 4 mg IVP Q6 PRN PRN Reason: Nausea/Vomiting Last Admin: 10/21/16 12:47 Dose: 4 mg Pantoprazole Sodium (Protonix Ec Tab) 20 mg PO DAILY [facility] Last Admin: 10/29/16 09:36 Dose: 20 mg Sodium Bicarbonate (Sodium Bicarbonate Tab) 1,300 mg PO BID [facility] Last Admin: 10/29/16 09:36 Dose: 1,300 mg - Labs Labs: 10/26/16 07:12 10/26/16 07:12 - Respiratory Exam Additional comments: Lungs clear - Cardiovascular Exam Cardiovascular Exam: REGULAR RHYTHM - Extremities Exam Additional comments: No edema Assessment and Plan - Assessment and Plan (Free Text) Assessment: Stage 1V kidney disease. Renal function has been stable High BUN noted today ? prerenal from not eating. Check FOB to r/o blood in GI tract Anemia Pneumonia DM Plan: Continue to monitor renal function Monitor Hb
[2016-10-29 11:48] LABS: BASO % 0.6 % (0.0-2.0); EOS # 0.3 K/uL (0.0-0.7); EOS % 4.6 % (0.0-4.0); HEMATOCRIT 23.1 % (34.0-47.0); LYMPH # 0.8 K/uL (1.0-4.3); LYMPH % 11.4 % (20.0-40.0); MEAN CORPUSCULAR HGB CONC 31.8 g/dL (33.0-37.0); MEAN PLATELET VOLUME 8.9 fL (7.2-11.7); MONO # 0.3 K/uL (0.0-0.8); MONO % 4.7 % (0.0-10.0); RED CELL DISTRIBUTION WIDTH 15.5 % (11.5-14.5); WHITE BLOOD COUNT 6.7 K/uL (4.8-10.8)
[2016-10-29 11:54] LABS: POTASSIUM 4.4 mmol/L (3.6-5.2)
[2016-10-29 11:56] LABS: BILIRUBIN,TOTAL 0.7 mg/dL (0.2-1.3); CALCIUM 8.8 mg/dl (8.6-10.4); PHOSPHOROUS 3.4 mg/dL (2.5-4.5); TOTAL PROTEIN 6.3 g/dL (6.3-8.3)
[2016-10-29 11:57] LABS: MAGNESIUM 1.9 mg/dL (1.6-2.3)
--- NOTE | 2016-10-29 11:59 | SPECPROC ---
PROCEDURE: Date of procedure: 10/29/2016 Procedure: 1. Placement of a right arm PICC with ultrasound and fluoroscopic guidance, CPT 79138 2. PICC tip confirmation with spot radiograph and is in the superior vena cava Medications: 4 cc 1 percent lidocaine Total Fluoro time: 4 seconds Radiation: 2mGy EBL: 2 cc HISTORY: Poor venous access TECHNIQUE: Following informed consent and procedure time-out, the patient was placed supine on the interventional table and the right arm prepped and draped in the usual sterile fashion. Ultrasound showed a patent and compressible right basilic vein. After the skin was anesthetized with lidocaine, the basilic vein was accessed with micro micropuncture technique using ultrasound guidance. A guidewire was then advanced under fluoroscopic guidance into the superior vena cava. An image documenting ultrasound guidance for vascular access was permanently saved. The length of the single-lumen 4 [place] PICC was trimmed to 39 centimeters and advanced through a peel-away sheath. The PICC was position with tip of PICC confirm a spot radiograph the superior vena cava. The PICC was secured to the patient's skin. The PICC was flushed. A biopatch and sterile dressing was applied. IMPRESSION: Placement of a single-lumen 4 [place] PICC trimmed to 39 centimeters via right basilic vein. The tip of the PICC is confirmed with spot radiograph and is in the superior vena cava.
--- NOTE | 2016-10-29 15:43 | RAD ---
PROCEDURE: CHEST RADIOGRAPH, 1 VIEW HISTORY: raisa COMPARISON: 10/26/2016 FINDINGS: LUNGS: Prominent bibasilar airspace opacities with bilateral pleural effusions ; left greater than right. Right midlung atelectasis. Biapical pleural thickening with upper lobe granulomatous changes. PLEURA: As above. CARDIOVASCULAR: Cardiomegaly. Calcification at the aortic knob. OSSEOUS STRUCTURES: No significant abnormalities. VISUALIZED UPPER ABDOMEN: Normal. OTHER FINDINGS: None. IMPRESSION: Prominent bibasilar airspace opacities with bilateral pleural effusions ; left greater than right. Right midlung atelectasis. Biapical pleural thickening with upper lobe granulomatous changes.
[2016-10-29] MEDS: (Lantus) Insulin Glargine, Recombinant SC SCH (22:05)
[2016-10-30 07:04] LABS: POTASSIUM 4.2 mmol/L (3.6-5.2)
[2016-10-30 07:06] LABS: BILIRUBIN,TOTAL 0.9 mg/dL (0.2-1.3); TOTAL PROTEIN 6.4 g/dL (6.3-8.3)
[2016-10-30 07:07] LABS: CALCIUM 8.5 mg/dl (8.6-10.4); MAGNESIUM 1.9 mg/dL (1.6-2.3); PHOSPHOROUS 4.2 mg/dL (2.5-4.5)
--- NOTE | 2016-10-30 07:18 | CP.PCM.PN ---
<Mary CarmenGauravmynor - Last Filed: 10/30/16 14:43> Subjective - Date & Time of Evaluation Date of Evaluation: 10/30/16 Time of Evaluation: 06:20 - Subjective Subjective: PGY 1 Medicine Note- Dr. Lockhart's service Pt seen and examined in no acute distress. Pt alert and conversational. Patient received one unit of PRBC yesterday and tolerated the procedure without complaints. At this time, she is tolerating more of her diet. Family present bedside. Patient counseled on benefits of going to subacute rehab. Patient previously was not interested however she would like some time to think it over. Case management also on the case and has been speaking with patient in hopes of encouraging her. She denies chest pain, palpitations, dyspnea, nausea , vomiting, diarrhea or constipation at time. Objective - Vital Signs/Intake and Output Vital Signs (last 24 hours): Temp Pulse Resp BP Pulse Ox 98.3 F 80 20 154/74 H 98 10/30/16 00:40 10/30/16 00:40 10/30/16 00:40 10/30/16 00:40 10/29/16 23:30 Intake and Output: 10/30/16 10/30/16 06:59 18:59 Intake Total 685 Balance 685 - Medications Medications: Current Medications Aspirin (Ecotrin) 81 mg PO DAILY [facility] Last Admin: 10/29/16 09:35 Dose: 81 mg Epoetin Alan (Procrit) 10,000 unit SC QWK [facility] Ferrous Sulfate (Feosol) 325 mg PO BID [facility] Last Admin: 10/29/16 20:40 Dose: 325 mg Furosemide (Lasix) 20 mg IVP BID [facility] Last Admin: 10/29/16 20:48 Dose: 20 mg Heparin Sodium (Porcine) (Heparin) 5,000 units SC Q8 [facility] Last Admin: 10/30/16 06:18 Dose: Not Given Azithromycin 500 mg/ Sodium (Chloride) 250 mls @ 250 mls/hr IVPB Q24H [facility] Last Admin: 10/26/16 10:00 Dose: Not Given Ceftriaxone Sodium 1 gm/ (Sodium Chloride) 100 mls @ 100 mls/hr IVPB DAILY [facility] Last Admin: 10/26/16 10:00 Dose: Not Given Insulin Aspart (Novolog) 0 unit SC ACHS [facility] PRN Reason: Protocol Last Admin: 10/29/16 22:07 Dose: Not Given Insulin Aspart (Novolog) 5 unit SC TIDAC [facility] Insulin Glargine (Lantus) 20 unit SC HS [facility] Labetalol HCl (Trandate) 200 mg PO BID [facility] Last Admin: 10/29/16 20:40 Dose: 200 mg Lisinopril (Zestril) 5 mg PO DAILY [facility] Last Admin: 10/29/16 09:36 Dose: 5 mg Megestrol Acetate (Megace) 40 mg PO DAILY [facility] Last Admin: 10/29/16 09:34 Dose: 40 mg Ondansetron HCl (Zofran Inj) 4 mg IVP Q6 PRN PRN Reason: Nausea/Vomiting Last Admin: 10/21/16 12:47 Dose: 4 mg Pantoprazole Sodium (Protonix Ec Tab) 20 mg PO DAILY [facility] Last Admin: 10/29/16 09:36 Dose: 20 mg Sodium Bicarbonate (Sodium Bicarbonate Tab) 1,300 mg PO BID [facility] Last Admin: 10/29/16 20:40 Dose: 1,300 mg - Labs Labs: 10/29/16 11:40 10/29/16 11:40 - Constitutional Appears: Non-toxic, No Acute Distress - Head Exam Head Exam: ATRAUMATIC, NORMAL INSPECTION, NORMOCEPHALIC - Eye Exam Eye Exam: EOMI, Normal appearance, PERRL Pupil Exam: NORMAL ACCOMODATION - ENT Exam ENT Exam: Mucous Membranes Moist - Neck Exam Neck Exam: Full ROM - Respiratory Exam Respiratory Exam: NORMAL BREATHING PATTERN. absent: Wheezes - Cardiovascular Exam Cardiovascular Exam: +S1, +S2 - GI/Abdominal Exam GI & Abdominal Exam: Soft, Normal Bowel Sounds - Extremities Exam Extremities Exam: Full ROM, Normal Capillary Refill, Normal Inspection - Back Exam Back Exam: Full ROM - Neurological Exam Neurological Exam: Alert, Awake, CN II-XII Intact, Oriented x3 - Psychiatric Exam Psychiatric exam: Normal Affect, Normal Mood - Skin Skin Exam: Dry, Intact, Warm Assessment and Plan - Assessment and Plan (Free Text) Assessment: Pneumonia w/ pleural effusions noted PICC line placed by IR 10/29/16 WBC is negative and afebrile. Cultures remain negative at this time. IV abx restarted Azithromycin and Rocephin 10/29 XRAY: prominent bibasilar airspace opacities w/ bilateral pleural effusions ; left greater than right. Right midlung atelectasis. Biapical pleural thickening with upper lobe granulomatous changes. Repeat CXR 10/26/16 showed Multifocal ill-defined opacity, nonspecific. Possible pneumonia or pulmonary edema. Small bilateral pleural effusion. Chest xray (10/23/16): new bilateral pleural effusions; persistent bilateral multifocal infiltrates Lasix 20 mg IV BID continued Elevated BNP. Procalcitonin elevated Diabetes Mellitus Hyperglycemic Recent accuchecks improved. ISS high dose with improved intake. Lantus to 20 units SC HS Novolog 5 units TIDACC ISS high dose Encourage intake Monitor Status: Acute Anorexia with Weight Loss Hx of Colon cancer- prev worked up at [facility] however records could not be located per GI. Will have to call PMD bc patient would rather utilize her prior GI doctor. Monitor calorie counts, Megace given. GI consult (Dr. Bee/Tania) on board. No immediate plans for PEG tube. Encourage patient to eat. Appetite may return upon treatment of underlying pneumonia/UTI. NG tube feeds suggested if patient's lack of appetite continued. Patient made aware and will attempt to eat more. CT chest, abd,pelvis w/o contrast- no apparent mass noted. thickening of rectal wall noted; mild stranding of perirectal fat. Surgical suture lines noted in bowel area. UTI (urinary tract infection) F/U UA and UC studies. Will be obtained via huerta. Patient on IV Rocephin, urine culture negative, blood culture no growth to date . F/U repeat Chronic kidney disease (CKD) Dr. Martinez consulted, patient may need dialysis at some point in the future On procrit PTH elevated at 163. Will order 24 hr urine for creat. clearance & total protein Huerta to be inserted for urine collection and discontinued after 24 hrs. Hypertension Labetalol 200 mg PO BID, Zestril 5 mg PO daily Echo (10/22) approx greater than 50% EF; severely thickened mitral valve; cannot rule out vegetation; aortic valve severely thickened. refer to full report. Anemia Hgb / 7.3. s/p transfusion. 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 Cont to monitor Mild Cognitive Impairment No psych meds at this time Support and psychoeducation rendered Emotional at times Daughter aware Psych support and psychoeducation provided- Consult to Dr. Powers Prophylactic measure Heparin SC Q8 PPI PT/OT PT faith recommends JULIA GUAJARDO to chair Disp: JULIA once patient is agreeable. She would like to think about it today. At this point, it would be unsafe to discharge patient immediately home as she would be in need of physical support services. <Michael Lockhart H - Last Filed: 10/30/16 17:45> Objective - Vital Signs/Intake and Output Vital Signs (last 24 hours): Temp Pulse Resp BP Pulse Ox 97.8 F 85 20 149/71 98 10/30/16 16:29 10/30/16 16:29 10/30/16 16:29 10/30/16 16:29 10/30/16 16:29 Intake and Output: 10/30/16 10/30/16 06:59 18:59 Intake Total 685 1200 Balance 685 1200 - Medications Medications: Current Medications Aspirin (Ecotrin) 81 mg PO DAILY [facility] Last Admin: 10/30/16 10:33 Dose: 81 mg Epoetin Alan (Procrit) 10,000 unit SC QWK [facility] Ferrous Sulfate (Feosol) 325 mg PO BID [facility] Last Admin: 10/30/16 10:33 Dose: 325 mg Furosemide (Lasix) 20 mg IVP BID [facility] Last Admin: 10/30/16 10:44 Dose: 20 mg Heparin Sodium (Porcine) (Heparin) 5,000 units SC Q8 [facility] Last Admin: 10/30/16 14:19 Dose: Not Given Azithromycin 500 mg/ Sodium (Chloride) 250 mls @ 250 mls/hr IVPB Q24H [facility] Last Admin: 10/30/16 12:54 Dose: 250 mls/hr Ceftriaxone Sodium 1 gm/ (Sodium Chloride) 100 mls @ 100 mls/hr IVPB DAILY [facility] Last Admin: 10/30/16 10:34 Dose: 100 mls/hr Insulin Aspart (Novolog) 0 unit SC ACHS [facility] PRN Reason: Protocol Last Admin: 10/30/16 12:37 Dose: Not Given Insulin Aspart (Novolog) 5 unit SC TIDAC [facility] Last Admin: 10/30/16 12:37 Dose: Not Given Insulin Glargine (Lantus) 20 unit SC HS [facility] Labetalol HCl (Trandate) 200 mg PO BID [facility] Last Admin: 10/30/16 10:36 Dose: 200 mg Lisinopril (Zestril) 5 mg PO DAILY [facility] Last Admin: 10/30/16 10:36 Dose: 5 mg Megestrol Acetate (Megace) 40 mg PO DAILY [facility] Last Admin: 10/30/16 10:34 Dose: 40 mg Ondansetron HCl (Zofran Inj) 4 mg IVP Q6 PRN PRN Reason: Nausea/Vomiting Last Admin: 10/21/16 12:47 Dose: 4 mg Pantoprazole Sodium (Protonix Ec Tab) 20 mg PO DAILY [facility] Last Admin: 10/30/16 10:34 Dose: 20 mg Sodium Bicarbonate (Sodium Bicarbonate Tab) 1,300 mg PO BID [facility] Last Admin: 10/30/16 10:35 Dose: 1,300 mg - Labs Labs: 10/30/16 06:28 10/30/16 06:28 Attending/Attestation - Attestation I have personally seen and examined this patient.: Yes I have fully participated in the care of the patient.: Yes I have reviewed all pertinent clinical information, including history, physical exam and plan: Yes Notes (Text): 10/30/16 17:40 Medical attending: Patient was seen and examined by me, agrees the above note by hospital medical assistant. We have came and spoke with with the patient as well as family members at bedside yesterday she was convinced to have a PICC line placed. She also agreed to have a blood transfusion as well since she was anemic. She is now back on IV a biotics for her pneumonia as well as UTI. Furthermore the patient is eating more her blood sugars have been higher. Her family has been faithfully encouraging her to eat and we are very fortunate that she has very good family help. I explained to the patient as well as to the family members present that at some point she would very much benefit from going to a subacute rehabilitation. The reason being is I did not feel that she would do well if she were to go home upon discharge from hospital. Since my concern is she's been mostly bedbound here at the hospital besides a couple physical therapy treatments and evaluations. Thank you very much, social insurance adviser has been discussing the patient with regards to rehabilitation hopefully she'll be able to go soon Michael Lockhart
[2016-10-30 07:32] LABS: BASO # 0.1 K/uL (0.0-0.2); BASO % 0.8 % (0.0-2.0); EOS # 0.3 K/uL (0.0-0.7); EOS % 4.2 % (0.0-4.0); HEMATOCRIT 26.9 % (34.0-47.0); LYMPH # 1.3 K/uL (1.0-4.3); LYMPH % 18.4 % (20.0-40.0); MEAN CELL VOLUME 83.8 fL (81.0-99.0); MEAN CORPUSCULAR HEMOGLOBIN 27.3 pg (27.0-31.0); MEAN CORPUSCULAR HGB CONC 32.5 g/dL (33.0-37.0); MEAN PLATELET VOLUME 8.8 fL (7.2-11.7); MONO # 0.4 K/uL (0.0-0.8); MONO % 5.1 % (0.0-10.0); RED CELL DISTRIBUTION WIDTH 15.2 % (11.5-14.5); WHITE BLOOD COUNT 6.9 K/uL (4.8-10.8)
[2016-10-30] MEDS: (Novolog) Insulin Aspart, Recombinant 100 u/ml 10 ml vial SC SCH ×7 (07:59→21:51)
[2016-10-30] MEDS: Pantoprazole 20 mg EC Tab PO SCH (10:34)
--- NOTE | 2016-10-30 11:17 | CP.PCM.PN ---
Subjective - Date & Time of Evaluation Date of Evaluation: 10/30/16 Time of Evaluation: 10:00 - Subjective Subjective: Mildly dyspneic. Pt states that her breathing is better than before Objective - Vital Signs/Intake and Output Vital Signs (last 24 hours): Temp Pulse Resp BP Pulse Ox 97.3 F L 85 18 167/79 H 97 10/30/16 07:05 10/30/16 07:05 10/30/16 07:05 10/30/16 10:44 10/30/16 07:05 Intake and Output: 10/30/16 10/30/16 06:59 18:59 Intake Total 685 Balance 685 - Medications Medications: Current Medications Aspirin (Ecotrin) 81 mg PO DAILY [facility] Last Admin: 10/30/16 10:33 Dose: 81 mg Epoetin Alan (Procrit) 10,000 unit SC QWK [facility] Ferrous Sulfate (Feosol) 325 mg PO BID [facility] Last Admin: 10/30/16 10:33 Dose: 325 mg Furosemide (Lasix) 20 mg IVP BID [facility] Last Admin: 10/30/16 10:44 Dose: 20 mg Heparin Sodium (Porcine) (Heparin) 5,000 units SC Q8 [facility] Last Admin: 10/30/16 06:18 Dose: Not Given Azithromycin 500 mg/ Sodium (Chloride) 250 mls @ 250 mls/hr IVPB Q24H [facility] Last Admin: 10/26/16 10:00 Dose: Not Given Ceftriaxone Sodium 1 gm/ (Sodium Chloride) 100 mls @ 100 mls/hr IVPB DAILY [facility] Last Admin: 10/30/16 10:34 Dose: 100 mls/hr Insulin Aspart (Novolog) 0 unit SC ACHS [facility] PRN Reason: Protocol Last Admin: 10/30/16 07:59 Dose: Not Given Insulin Aspart (Novolog) 5 unit SC TIDAC [facility] Last Admin: 10/30/16 08:38 Dose: 5 unit Insulin Glargine (Lantus) 20 unit SC HS [facility] Labetalol HCl (Trandate) 200 mg PO BID [facility] Last Admin: 10/30/16 10:36 Dose: 200 mg Lisinopril (Zestril) 5 mg PO DAILY [facility] Last Admin: 10/30/16 10:36 Dose: 5 mg Megestrol Acetate (Megace) 40 mg PO DAILY [facility] Last Admin: 10/30/16 10:34 Dose: 40 mg Ondansetron HCl (Zofran Inj) 4 mg IVP Q6 PRN PRN Reason: Nausea/Vomiting Last Admin: 10/21/16 12:47 Dose: 4 mg Pantoprazole Sodium (Protonix Ec Tab) 20 mg PO DAILY [facility] Last Admin: 10/30/16 10:34 Dose: 20 mg Sodium Bicarbonate (Sodium Bicarbonate Tab) 1,300 mg PO BID [facility] Last Admin: 10/30/16 10:35 Dose: 1,300 mg - Labs Labs: 10/30/16 06:28 10/30/16 06:28 - Cardiovascular Exam Cardiovascular Exam: REGULAR RHYTHM - Rectal Exam Additional comments: No rales noted No wheezing - Extremities Exam Additional comments: No edema Assessment and Plan - Assessment and Plan (Free Text) Assessment: Stage !V kidney diseas K+ is controlled. Acidosis imroved with bicarb supplementation Anemia Pneumonia B/L pleural effusions ? volume overload IDDM Plan: Will order 24 hr urine for creat. clearance & total protein Continue current Mx
--- NOTE | 2016-10-30 11:50 | RAD ---
HISTORY: pleural effusions COMPARISON: 10/29/2016 FINDINGS: LUNGS: Persistent moderate venous congestion with small bilateral pleural effusions. Persistent right hilar consolidation and or prominence. Right PICC line with tip extending to the cavoatrial junction. PLEURA: As above. CARDIOVASCULAR: Cardiomegaly. Calcification at the aortic knob. OSSEOUS STRUCTURES: No significant abnormalities. VISUALIZED UPPER ABDOMEN: Normal. OTHER FINDINGS: None. IMPRESSION: Persistent moderate venous congestion with small bilateral pleural effusions. Persistent right hilar consolidation and or prominence. Right PICC line with tip extending to the cavoatrial junction.
[2016-10-30] MEDS: Azithromycin 500 MG in Sodium Chloride 0.9% 250 ML IVPB SCH (12:54)
[2016-10-30] MEDS: (Lantus) Insulin Glargine, Recombinant SC SCH (21:58)
[2016-10-31 06:43] LABS: BASO % 0.7 % (0.0-2.0); EOS # 0.3 K/uL (0.0-0.7); EOS % 3.7 % (0.0-4.0); HEMATOCRIT 26.7 % (34.0-47.0); LYMPH # 1.4 K/uL (1.0-4.3); LYMPH % 19.5 % (20.0-40.0); MEAN CELL VOLUME 84.2 fL (81.0-99.0); MEAN CORPUSCULAR HEMOGLOBIN 27.5 pg (27.0-31.0); MEAN CORPUSCULAR HGB CONC 32.6 g/dL (33.0-37.0); MEAN PLATELET VOLUME 8.5 fL (7.2-11.7); MONO # 0.3 K/uL (0.0-0.8); MONO % 4.5 % (0.0-10.0); RED CELL DISTRIBUTION WIDTH 15.2 % (11.5-14.5); WHITE BLOOD COUNT 7.1 K/uL (4.8-10.8)
[2016-10-31 06:51] LABS: POTASSIUM 4.3 mmol/L (3.6-5.2)
[2016-10-31 06:53] LABS: BILIRUBIN,TOTAL 0.8 mg/dL (0.2-1.3); TOTAL PROTEIN 6.2 g/dL (6.3-8.3)
[2016-10-31 06:54] LABS: CALCIUM 8.3 mg/dl (8.6-10.4); MAGNESIUM 1.8 mg/dL (1.6-2.3); PHOSPHOROUS 4.2 mg/dL (2.5-4.5)
[2016-10-31] MEDS: (Novolog) Insulin Aspart, Recombinant 100 u/ml 10 ml vial SC SCH ×7 (07:52→22:24)
--- NOTE | 2016-10-31 09:01 | CP.PCM.PN ---
<Jenni Lentz - Last Filed: 10/31/16 13:37> Subjective - Date & Time of Evaluation Date of Evaluation: 10/31/16 Time of Evaluation: 06:25 - Subjective Subjective: PGY 1 Medicine Note- Dr. Lockhart's service Pt seen and examined in no acute distress. Patient states that she is agreeable to JULIA. Patient having 24 hr urine studies which will end after 6pm tonight. She is tolerating more of a diet. Pt admitted to some left sided neck discomfort. Pt denies fevers, chills, chest pain, palpitations, headaches, dyspnea, abdominal pain, urinary frequency or urgency at this time. Objective - Vital Signs/Intake and Output Vital Signs (last 24 hours): Temp Pulse Resp BP Pulse Ox 98.0 F 83 18 145/55 L 94 L 10/31/16 07:07 10/31/16 07:55 10/31/16 07:07 10/31/16 07:07 10/31/16 07:07 Intake and Output: 10/31/16 10/31/16 06:59 18:59 Intake Total 240 Balance 240 - Medications Medications: Current Medications Aspirin (Ecotrin) 81 mg PO DAILY [facility] Last Admin: 10/30/16 10:33 Dose: 81 mg Epoetin Alan (Procrit) 10,000 unit SC QWK [facility] Ferrous Sulfate (Feosol) 325 mg PO BID [facility] Last Admin: 10/30/16 17:58 Dose: 325 mg Furosemide (Lasix) 20 mg IVP BID [facility] Last Admin: 10/30/16 17:59 Dose: 20 mg Heparin Sodium (Porcine) (Heparin) 5,000 units SC Q8 [facility] Last Admin: 10/30/16 21:59 Dose: Not Given Azithromycin 500 mg/ Sodium (Chloride) 250 mls @ 250 mls/hr IVPB Q24H [facility] Last Admin: 10/30/16 12:54 Dose: 250 mls/hr Ceftriaxone Sodium 1 gm/ (Sodium Chloride) 100 mls @ 100 mls/hr IVPB DAILY [facility] Last Admin: 10/30/16 10:34 Dose: 100 mls/hr Insulin Aspart (Novolog) 0 unit SC ACHS [facility] PRN Reason: Protocol Last Admin: 10/31/16 07:52 Dose: Not Given Insulin Aspart (Novolog) 5 unit SC TIDAC [facility] Last Admin: 10/31/16 08:35 Dose: 5 unit Insulin Glargine (Lantus) 20 unit SC HS [facility] Last Admin: 10/30/16 21:58 Dose: 10 units Labetalol HCl (Trandate) 200 mg PO BID [facility] Last Admin: 10/30/16 17:59 Dose: 200 mg Lisinopril (Zestril) 5 mg PO DAILY [facility] Last Admin: 10/30/16 10:36 Dose: 5 mg Megestrol Acetate (Megace) 40 mg PO DAILY [facility] Last Admin: 10/30/16 10:34 Dose: 40 mg Ondansetron HCl (Zofran Inj) 4 mg IVP Q6 PRN PRN Reason: Nausea/Vomiting Last Admin: 10/21/16 12:47 Dose: 4 mg Pantoprazole Sodium (Protonix Ec Tab) 20 mg PO DAILY [facility] Last Admin: 10/30/16 10:34 Dose: 20 mg Sodium Bicarbonate (Sodium Bicarbonate Tab) 1,300 mg PO BID [facility] Last Admin: 10/30/16 17:59 Dose: 1,300 mg - Labs Labs: 10/31/16 06:27 10/31/16 06:27 - Constitutional Appears: Non-toxic, No Acute Distress - Head Exam Head Exam: ATRAUMATIC, NORMAL INSPECTION, NORMOCEPHALIC - Eye Exam Eye Exam: EOMI, Normal appearance, PERRL Pupil Exam: NORMAL ACCOMODATION, PERRL - ENT Exam ENT Exam: Mucous Membranes Moist, Normal Exam - Neck Exam Neck Exam: Full ROM, Normal Inspection - Cardiovascular Exam Cardiovascular Exam: REGULAR RHYTHM, +S1, +S2 - GI/Abdominal Exam GI & Abdominal Exam: Soft, Normal Bowel Sounds - Extremities Exam Extremities Exam: Full ROM, Normal Capillary Refill, Normal Inspection - Back Exam Back Exam: Full ROM, NORMAL INSPECTION - Neurological Exam Neurological Exam: Alert, Awake - Psychiatric Exam Psychiatric exam: Normal Affect, Normal Mood - Skin Skin Exam: Dry, Warm Additional comments: dec skin turgor Assessment and Plan - Assessment and Plan (Free Text) Assessment: Pneumonia w/ pleural effusions noted PICC line placed by IR 10/29/16 WBC is negative and afebrile. Cultures remain negative at this time. IV abx Azithromycin and Rocephin 10/29 XRAY: prominent bibasilar airspace opacities w/ bilateral pleural effusions ; left greater than right. Right midlung atelectasis. Biapical pleural thickening with upper lobe granulomatous changes. Repeat CXR 10/26/16 showed Multifocal ill-defined opacity, nonspecific. Possible pneumonia or pulmonary edema. Small bilateral pleural effusion. Chest xray (10/23/16): new bilateral pleural effusions; persistent bilateral multifocal infiltrates Lasix 20 mg IV BID continued Elevated BNP. Procalcitonin elevated Diabetes Mellitus Hypoglycemic once yesterday but resolved with administration of juice. Recent accuchecks improved. ISS high dose with improved intake. Lantus to 20 units SC HS Novolog 5 units TIDACC ISS high dose Encourage intake Monitor Status: Acute Anorexia with Weight Loss Hx of Colon cancer- prev worked up at [facility] however records could not be located per GI. Will have to call PMD bc patient would rather utilize her prior GI doctor. Monitor calorie counts, Megace given. GI consult (Dr. Bee/Tania) on board. No immediate plans for PEG tube. Encourage patient to eat. Appetite may return upon treatment of underlying pneumonia/UTI. NG tube feeds suggested if patient's lack of appetite continued. Patient made aware and will attempt to eat more. CT chest, abd,pelvis w/o contrast- no apparent mass noted. thickening of rectal wall noted; mild stranding of perirectal fat. Surgical suture lines noted in bowel area. UTI (urinary tract infection) F/U UA and UC studies. Will be obtained via huerta. Patient on IV Rocephin, urine culture negative, blood culture no growth to date . F/U repeat Chronic kidney disease (CKD) Dr. Martinez consulted, patient may need dialysis at some point in the future On procrit PTH elevated at 163. Currently undergoing 24 urine studies- Will end after 6pm tonight. Neck Discomfort Noted discomfort with coughs Soft Tissue Neck Xray- Left submandibular lymph node not assessed by study. IV contrast CT may help/ Extensive calcifications noted likely related to carotid etiology. Will follow up with CT soft tissue neck (no IV contrast due to poor creatinine clearance). F/U results Hypertension Labetalol 200 mg PO BID, Zestril 5 mg PO daily Echo (10/22) approx greater than 50% EF; severely thickened mitral valve; cannot rule out vegetation; aortic valve severely thickened. refer to full report. Anemia Hgb stable Most likely anemia of chronic disease secondarily to CKD Ferrous sulfate daily Iron studies F/U stool occult Hyperkalemia Stable as per last blood work. Cont to monitor Mild Cognitive Impairment No psych meds at this time Support and psychoeducation rendered Emotional at times Daughter aware Psych support and psychoeducation provided- Consult to Dr. Powers Prophylactic measure Heparin SC Q8 PPI PT/OT PT nikaal recommends [facility]ULIA OOB to chair Disp: Patient agreeable to [facility]. Likely discharge after pre-auth is finalized. <Michael Lockhart H - Last Filed: 10/31/16 14:43> Objective - Vital Signs/Intake and Output Vital Signs (last 24 hours): Temp Pulse Resp BP Pulse Ox 98.0 F 77 18 156/54 H 96 10/31/16 07:07 10/31/16 13:29 10/31/16 07:07 10/31/16 09:15 10/31/16 13:29 Intake and Output: 10/31/16 10/31/16 06:59 18:59 Intake Total 240 Balance 240 - Medications Medications: Current Medications Aspirin (Ecotrin) 81 mg PO DAILY [facility] Last Admin: 10/31/16 09:14 Dose: 81 mg Epoetin Alan (Procrit) 10,000 unit SC QWK [facility] Ferrous Sulfate (Feosol) 325 mg PO BID [facility] Last Admin: 10/31/16 09:14 Dose: 325 mg Furosemide (Lasix) 20 mg IVP BID [facility] Last Admin: 10/31/16 09:15 Dose: 20 mg Heparin Sodium (Porcine) (Heparin) 5,000 units SC Q8 [facility] Last Admin: 10/31/16 13:34 Dose: Not Given Azithromycin 500 mg/ Sodium (Chloride) 250 mls @ 250 mls/hr IVPB Q24H [facility] Last Admin: 10/31/16 12:06 Dose: 250 mls/hr Ceftriaxone Sodium 1 gm/ (Sodium Chloride) 100 mls @ 100 mls/hr IVPB DAILY [facility] Last Admin: 10/31/16 09:17 Dose: 100 mls/hr Insulin Aspart (Novolog) 0 unit SC ACHS [facility] PRN Reason: Protocol Last Admin: 10/31/16 12:04 Dose: Not Given Insulin Aspart (Novolog) 5 unit SC TIDAC [facility] Last Admin: 10/31/16 13:11 Dose: 5 unit Insulin Glargine (Lantus) 20 unit SC HS [facility] Last Admin: 10/30/16 21:58 Dose: 10 units Labetalol HCl (Trandate) 200 mg PO BID [facility] Last Admin: 10/31/16 09:16 Dose: 200 mg Lisinopril (Zestril) 5 mg PO DAILY [facility] Last Admin: 10/31/16 09:14 Dose: 5 mg Megestrol Acetate (Megace) 40 mg PO DAILY [facility] Last Admin: 10/31/16 09:17 Dose: 40 mg Ondansetron HCl (Zofran Inj) 4 mg IVP Q6 PRN PRN Reason: Nausea/Vomiting Last Admin: 10/21/16 12:47 Dose: 4 mg Pantoprazole Sodium (Protonix Ec Tab) 20 mg PO DAILY [facility] Last Admin: 10/31/16 09:17 Dose: 20 mg Sodium Bicarbonate (Sodium Bicarbonate Tab) 1,300 mg PO BID [facility] Last Admin: 10/31/16 09:14 Dose: 1,300 mg - Labs Labs: 10/31/16 06:27 10/31/16 06:27 Attending/Attestation - Attestation I have personally seen and examined this patient.: Yes I have fully participated in the care of the patient.: Yes I have reviewed all pertinent clinical information, including history, physical exam and plan: Yes Notes (Text): 10/31/16 14:41 Medical attending: Patient was seen and examined by me, agree with the above note by medical reimbursement specialist. She is currently doing okay at this time, her lab work appears to be stable she does not have white blood cell count does not have fevers however she still mostly bedbound she does come out with physical therapy. Family was not present today however as mentioned yesterday we did have a meeting with family bedside explained that she would benefit from subacute rehabilitation she needs additional days of IV biotics. The hemoglobin as well as the creatinine are currently stable at this time. She does have underlying CK D and probably anemia of chronic disease. As mentioned before she is had a blood transfusion earlier Thank you very much, hopefully she'll be able to be moved to rehabilitation soon Michael Lockhart
[2016-10-31] MEDS: Pantoprazole 20 mg EC Tab PO SCH (09:17)
[2016-10-31] MEDS: Azithromycin 500 MG in Sodium Chloride 0.9% 250 ML IVPB SCH (12:06)
[2016-10-31 13:35] VITALS: O2SAT 96
--- NOTE | 2016-10-31 15:58 | CP.PCM.PN ---
Subjective - Date & Time of Evaluation Date of Evaluation: 10/31/16 Time of Evaluation: 03:30 - Subjective Subjective: Ledd sob today Objective - Vital Signs/Intake and Output Vital Signs (last 24 hours): Temp Pulse Resp BP Pulse Ox 98.0 F 77 18 156/54 H 96 10/31/16 07:07 10/31/16 13:29 10/31/16 07:07 10/31/16 09:15 10/31/16 13:29 Intake and Output: 10/31/16 10/31/16 06:59 18:59 Intake Total 240 720 Balance 240 720 - Medications Medications: Current Medications Aspirin (Ecotrin) 81 mg PO DAILY [facility] Last Admin: 10/31/16 09:14 Dose: 81 mg Epoetin Alan (Procrit) 10,000 unit SC QWK [facility] Ferrous Sulfate (Feosol) 325 mg PO BID [facility] Last Admin: 10/31/16 09:14 Dose: 325 mg Furosemide (Lasix) 20 mg IVP BID [facility] Last Admin: 10/31/16 09:15 Dose: 20 mg Heparin Sodium (Porcine) (Heparin) 5,000 units SC Q8 [facility] Last Admin: 10/31/16 13:34 Dose: Not Given Azithromycin 500 mg/ Sodium (Chloride) 250 mls @ 250 mls/hr IVPB Q24H [facility] Last Admin: 10/31/16 12:06 Dose: 250 mls/hr Ceftriaxone Sodium 1 gm/ (Sodium Chloride) 100 mls @ 100 mls/hr IVPB DAILY [facility] Last Admin: 10/31/16 09:17 Dose: 100 mls/hr Insulin Aspart (Novolog) 0 unit SC ACHS [facility] PRN Reason: Protocol Last Admin: 10/31/16 12:04 Dose: Not Given Insulin Aspart (Novolog) 5 unit SC TIDAC [facility] Last Admin: 10/31/16 13:11 Dose: 5 unit Insulin Glargine (Lantus) 20 unit SC HS [facility] Last Admin: 10/30/16 21:58 Dose: 10 units Labetalol HCl (Trandate) 200 mg PO BID [facility] Last Admin: 10/31/16 09:16 Dose: 200 mg Lisinopril (Zestril) 5 mg PO DAILY [facility] Last Admin: 10/31/16 09:14 Dose: 5 mg Megestrol Acetate (Megace) 40 mg PO DAILY [facility] Last Admin: 10/31/16 09:17 Dose: 40 mg Ondansetron HCl (Zofran Inj) 4 mg IVP Q6 PRN PRN Reason: Nausea/Vomiting Last Admin: 10/21/16 12:47 Dose: 4 mg Pantoprazole Sodium (Protonix Ec Tab) 20 mg PO DAILY [facility] Last Admin: 10/31/16 09:17 Dose: 20 mg Sodium Bicarbonate (Sodium Bicarbonate Tab) 1,300 mg PO BID [facility] Last Admin: 10/31/16 09:14 Dose: 1,300 mg - Labs Labs: 10/31/16 06:27 10/31/16 06:27 - Respiratory Exam Additional comments: Fine crackles at bases - Cardiovascular Exam Cardiovascular Exam: REGULAR RHYTHM - Extremities Exam Additional comments: No pedal edema Assessment and Plan - Assessment and Plan (Free Text) Assessment: Stage 1V kidney dis Renal function is stable K+ controlled Anemia HTN Pneumonia/? volume overload DM Plan: Continue to monitor renal parameters 24 hr urine in progress
[2016-10-31] MEDS: (Lantus) Insulin Glargine, Recombinant SC SCH (21:41)
[2016-11-01 06:28] LABS: BASO # 0.1 K/uL (0.0-0.2); BASO % 0.8 % (0.0-2.0); EOS # 0.2 K/uL (0.0-0.7); EOS % 2.9 % (0.0-4.0); HEMATOCRIT 26.7 % (34.0-47.0); LYMPH # 1.1 K/uL (1.0-4.3); LYMPH % 14.5 % (20.0-40.0); MEAN CELL VOLUME 83.7 fL (81.0-99.0); MEAN CORPUSCULAR HEMOGLOBIN 27.6 pg (27.0-31.0); MEAN PLATELET VOLUME 8.6 fL (7.2-11.7); MONO # 0.4 K/uL (0.0-0.8); MONO % 5.4 % (0.0-10.0); RED CELL DISTRIBUTION WIDTH 15.2 % (11.5-14.5); WHITE BLOOD COUNT 7.3 K/uL (4.8-10.8)
[2016-11-01 06:49] LABS: POTASSIUM 4.6 mmol/L (3.6-5.2)
[2016-11-01 06:51] LABS: BILIRUBIN,TOTAL 0.7 mg/dL (0.2-1.3); PHOSPHOROUS 4.6 mg/dL (2.5-4.5); TOTAL PROTEIN 6.3 g/dL (6.3-8.3)
[2016-11-01 06:52] LABS: CALCIUM 8.3 mg/dl (8.6-10.4); MAGNESIUM 1.8 mg/dL (1.6-2.3)
[2016-11-01] MEDS: (Novolog) Insulin Aspart, Recombinant 100 u/ml 10 ml vial SC SCH ×4 (07:44→11:45)
[2016-11-01 08:04] VITALS: BP 164/63; PULSE 86; RESP 18; TEMP 98.9
[2016-11-01] MEDS ORDERED: EPOETIN ALFA 10,000 UNIT/ML ML SC SCH (10:00)
[2016-11-01] MEDS: Pantoprazole 20 mg EC Tab PO SCH (10:03)
[2016-11-01] MEDS: Azithromycin 500 MG in Sodium Chloride 0.9% 250 ML IVPB SCH (11:51)
--- NOTE | 2016-11-01 12:45 | CP.PCM.PN ---
Subjective - Date & Time of Evaluation Date of Evaluation: 11/01/16 Time of Evaluation: 12:20 - Subjective Subjective: Appears comfortable sitting up in bed Objective - Vital Signs/Intake and Output Vital Signs (last 24 hours): Temp Pulse Resp BP Pulse Ox 98.9 F 86 18 164/63 H 96 11/01/16 07:07 11/01/16 07:07 11/01/16 07:07 11/01/16 10:02 11/01/16 07:07 Intake and Output: 11/01/16 11/01/16 06:59 18:59 Intake Total 240 Balance 240 - Medications Medications: Current Medications Aspirin (Ecotrin) 81 mg PO DAILY [facility] Last Admin: 11/01/16 10:03 Dose: 81 mg Epoetin Alan (Procrit) 10,000 unit SC QWK [facility] Last Admin: 11/01/16 10:20 Dose: 10,000 unit Ferrous Sulfate (Feosol) 325 mg PO BID [facility] Last Admin: 11/01/16 10:02 Dose: 325 mg Furosemide (Lasix) 20 mg IVP BID [facility] Last Admin: 11/01/16 10:02 Dose: 20 mg Heparin Sodium (Porcine) (Heparin) 5,000 units SC Q8 [facility] Last Admin: 10/31/16 21:48 Dose: Not Given Azithromycin 500 mg/ Sodium (Chloride) 250 mls @ 250 mls/hr IVPB Q24H [facility] Last Admin: 11/01/16 11:51 Dose: 250 mls/hr Ceftriaxone Sodium 1 gm/ (Sodium Chloride) 100 mls @ 100 mls/hr IVPB DAILY [facility] Last Admin: 11/01/16 10:19 Dose: 100 mls/hr Insulin Aspart (Novolog) 0 unit SC ACHS [facility] PRN Reason: Protocol Last Admin: 11/01/16 11:44 Dose: 4 unit Insulin Aspart (Novolog) 5 unit SC TIDAC [facility] Last Admin: 11/01/16 11:45 Dose: 5 unit Insulin Glargine (Lantus) 20 unit SC HS [facility] Last Admin: 10/31/16 21:41 Dose: 20 units Labetalol HCl (Trandate) 200 mg PO BID [facility] Last Admin: 11/01/16 10:03 Dose: 200 mg Lisinopril (Zestril) 5 mg PO DAILY [facility] Last Admin: 11/01/16 10:03 Dose: 5 mg Megestrol Acetate (Megace) 40 mg PO DAILY [facility] Last Admin: 11/01/16 10:02 Dose: 40 mg Ondansetron HCl (Zofran Inj) 4 mg IVP Q6 PRN PRN Reason: Nausea/Vomiting Last Admin: 10/21/16 12:47 Dose: 4 mg Pantoprazole Sodium (Protonix Ec Tab) 20 mg PO DAILY [facility] Last Admin: 11/01/16 10:03 Dose: 20 mg Sodium Bicarbonate (Sodium Bicarbonate Tab) 1,300 mg PO BID [facility] Last Admin: 11/01/16 10:02 Dose: 1,300 mg - Labs Labs: 11/01/16 06:12 11/01/16 06:12 - Respiratory Exam Additional comments: Lungs clear - Cardiovascular Exam Cardiovascular Exam: REGULAR RHYTHM - Extremities Exam Additional comments: No edema or cyanosis Assessment and Plan - Assessment and Plan (Free Text) Assessment: Stage 1V kidney Dis stable 24 hr urine results noted. Urine volume is 2250 ml & calculated Creat Clearance is 15 Anemia. Hb is stable Pneumonia Plan: Continue to monitor renal function Phos is low secodary to poor oral intake
--- NOTE | 2016-11-01 16:27 | CP.PCM.DIS ---
<Jenni Lentz - Last Filed: 11/02/16 03:31> Provider - Provider Date of Admission: 10/20/16 11:45 Attending physician: DO Michael Le DO Primary care physician: Dr. Breaux Consults: GI: Dr. Bee/Tania Nephro: Dr. Martinez Palliative: [place] Psych: Ozden ID: [id number] Time Spent in preparation of Discharge (in minutes): 40 Diagnosis - Discharge Diagnosis (1) Mild cognitive impairment Status: Acute (2) Anorexia Status: Resolved (3) Diabetic hypoglycemia Status: Acute (4) Pneumonia Status: Acute (5) UTI (urinary tract infection) Status: Acute (6) Anemia Status: Chronic (7) Chronic kidney disease (CKD) Status: Chronic (8) Hypertension Status: Chronic Hospital Course - Lab Results Lab Results: Micro Results 10/20/16 Unknown Urine Urine Culture - Final No Growth (<1,000 CFU/ML) Most Recent Lab Values WBC 7.3 K/uL (4.8-10.8) 11/01/16 06:12 RBC 3.19 Mil/uL (3.80-5.20) L 11/01/16 06:12 Hgb 8.8 g/dL (11.0-16.0) L 11/01/16 06:12 Hct 26.7 % (34.0-47.0) L 11/01/16 06:12 MCV 83.7 fL (81.0-99.0) 11/01/16 06:12 MCH 27.6 pg (27.0-31.0) 11/01/16 06:12 MCHC 33.0 g/dL (33.0-37.0) 11/01/16 06:12 RDW 15.2 % (11.5-14.5) H 11/01/16 06:12 Plt Count 244 K/uL (130-400) 11/01/16 06:12 MPV 8.6 fL (7.2-11.7) 11/01/16 06:12 Neut % (Auto) 76.4 % (50.0-75.0) H 11/01/16 06:12 Lymph % (Auto) 14.5 % (20.0-40.0) L 11/01/16 06:12 Finney % (Auto) 5.4 % (0.0-10.0) 11/01/16 06:12 Eos % (Auto) 2.9 % (0.0-4.0) 11/01/16 06:12 Baso % (Auto) 0.8 % (0.0-2.0) 11/01/16 06:12 Neut # 5.6 K/uL (1.8-7.0) 11/01/16 06:12 Lymph # 1.1 K/uL (1.0-4.3) 11/01/16 06:12 Finney # 0.4 K/uL (0.0-0.8) 11/01/16 06:12 Eos # 0.2 K/uL (0.0-0.7) 11/01/16 06:12 Baso # 0.1 K/uL (0.0-0.2) 11/01/16 06:12 Neutrophils % (Manual) 86 % (50-75) H 10/24/16 07:16 Lymphocytes % (Manual) 5 % (20-40) L 10/24/16 07:16 Monocytes % (Manual) 8 % (0-10) 10/24/16 07:16 Eosinophils % (Manual) 1 % (0-4) 10/24/16 07:16 Basophils % (Manual) 2 % (0-2) 10/23/16 06:30 Toxic Granulation Present 10/20/16 10:17 Platelet Estimate Normal (NORMAL) 10/24/16 07:16 Large Platelets Present 10/20/16 10:17 Polychromasia Slight 10/20/16 10:17 Hypochromasia (manual) Slight 10/24/16 07:16 Poikilocytosis (manual Slight 10/24/16 07:16 Anisocytosis (manual) Slight 10/24/16 07:16 Microcytosis (manual) Slight 10/24/16 07:16 Macrocytosis (manual) Slight 10/24/16 07:16 Target Cells Slight 10/24/16 07:16 Tear Drop Cells Slight 10/23/16 06:30 Ovalocytes Slight 10/24/16 07:16 Elías Cells Slight 10/24/16 07:16 Schistocytes Slight 10/20/16 10:17 Retic Count 1.1 % (0.5-1.5) 10/24/16 16:37 pO2 15 mm/Hg (30-55) L 10/20/16 10:15 VBG pH 7.22 (7.32-7.43) L 10/20/16 10:15 VBG pCO2 52 mmHg (40-60) 10/20/16 10:15 VBG HCO3 17.3 mmol/L 10/20/16 10:15 VBG Total CO2 22.9 mmol/L (22-28) 10/20/16 10:15 VBG O2 Sat (Calc) 22.4 % (40-65) L 10/20/16 10:15 VBG Base Excess -6.8 mmol/L (0.0-2.0) L 10/20/16 10:15 VBG Potassium 5.1 mmol/L (3.6-5.2) 10/20/16 10:15 Sodium 142.0 mmol/l (132-148) 10/20/16 10:15 Chloride 113.0 mmol/L (98-107) H 10/20/16 10:15 Glucose 121 mg/dl (65-105) H 10/20/16 10:15 Lactate 1.3 mmol/L (0.7-2.1) 10/20/16 10:15 Sodium 138 mmol/L (132-148) 11/01/16 06:12 Potassium 4.6 mmol/L (3.6-5.2) 11/01/16 06:12 Chloride 102 mmol/L (98-107) 11/01/16 06:12 Carbon Dioxide 23 mmol/L (22-30) 11/01/16 06:12 Anion Gap 17 (10-20) 11/01/16 06:12 BUN 73 mg/dL (7-17) H 11/01/16 06:12 Creatinine 4.0 MG/DL (0.7-1.2) H 11/01/16 06:12 Est GFR ( Amer) 13 11/01/16 06:12 Est GFR (Non-Af Amer) 11 11/01/16 06:12 POC Glucose (mg/dL) 336 mg/dL (65-110) H 11/01/16 11:25 Random Glucose 125 mg/dL (65-105) H 11/01/16 06:12 Hemoglobin A1c 7.0 % (4.2-6.5) H 10/21/16 06:06 Calcium 8.3 mg/dl (8.6-10.4) L 11/01/16 06:12 Phosphorus 4.6 mg/dL (2.5-4.5) H 11/01/16 06:12 Magnesium 1.8 mg/dL (1.6-2.3) 11/01/16 06:12 Iron 22 ug/dL (37-170) L 10/24/16 16:37 TIBC 185 ug/dL (250-450) L 10/24/16 16:37 % Saturation 12 (20-55) L 10/24/16 16:37 Ferritin 179.0 ng/mL 10/24/16 16:37 Total Bilirubin 0.7 mg/dL (0.2-1.3) 11/01/16 06:12 AST 24 U/L (14-36) 11/01/16 06:12 ALT 27 U/L (9-52) 11/01/16 06:12 Alkaline Phosphatase 93 U/L (38-126) 11/01/16 06:12 Total Creatine Kinase 383 U/L (30-135) H 10/20/16 23:05 CK-MB (Mass) 2.79 ng/mL (0.0-3.38) 10/20/16 23:05 Troponin I 0.0230 ng/mL (0.00-0.120) 10/20/16 10:17 Troponin I, Quant 0.0240 ng/mL (0.00-0.120) 10/20/16 23:05 NT-Pro-B Natriuret Pep 97277 pg/mL (0-900) H 10/23/16 14:07 Total Protein 6.3 g/dL (6.3-8.3) 11/01/16 06:12 Albumin 3.2 g/dL (3.5-5.0) L 11/01/16 06:12 Globulin 3.1 gm/dL (2.2-3.9) 11/01/16 06:12 Albumin/Globulin Ratio 1.0 (1.0-2.1) 11/01/16 06:12 Vitamin B12 680 pg/mL (239-931) 10/24/16 16:37 Folate 10.6 ng/mL 10/24/16 16:37 Procalcitonin 0.52 NG/ML (0.19-0.49) H 10/30/16 06:28 TSH 3rd Generation 1.44 mIU/L (0.46-4.68) 10/21/16 06:06 PTH Intact Whole Molec 163 pg/mL (14-64) H 10/20/16 16:54 Venous Blood Potassium 5.1 mmol/L (3.6-5.2) 10/20/16 10:15 Urine Color Yellow (YELLOW) 10/20/16 10:29 Urine Clarity Hazy (Clear) 10/20/16 10:29 Urine pH 5.0 (5.0-8.0) 10/20/16 10:29 Ur Specific [place] 1.013 (1.003-1.030) 10/20/16 10:29 Urine Protein 2+ mg/dL (NEGATIVE) H 10/20/16 10:29 Urine Glucose (UA) 2+ mg/dL (Normal) H 10/20/16 10:29 Urine Ketones Negative mg/dL (NEGATIVE) 10/20/16 10:29 Urine Blood 1+ (NEGATIVE) H 10/20/16 10:29 Urine Nitrate Negative (NEGATIVE) 10/20/16 10:29 Urine Bilirubin Negative (NEGATIVE) 10/20/16 10:29 Urine Urobilinogen Normal mg/dL (0.2-1.0) 10/20/16 10:29 Ur Leukocyte Esterase 3+ Nova/uL (Negative) H 10/20/16 10:29 Urine WBC (Auto) 53 /hpf (0-5) H 10/20/16 10:29 Urine RBC (Auto) 4 /hpf (0-3) H 10/20/16 10:29 Ur Squamous Epith Cells 4 /hpf (0-5) 10/20/16 10:29 Ur Transition Epith Cell 3 /hpf (0-3) 10/20/16 10:29 Amorphous Sediment Rare /ul (<OCC) H 10/20/16 10:29 Urine Bacteria Rare (<OCC) 10/20/16 10:29 Urine Collection Time 24 HRS 10/31/16 19:48 Urine Total Volume 2250 mL 10/31/16 19:48 Creatinine Clearance 15.0 mL/min (87-107) L 10/31/16 19:48 Ur Protein 24 Hr Calc 855.0 mg/24hr (42-225) H 10/31/16 19:48 Stool Occult Blood Negative (NEGATIVE) 10/31/16 22:57 Blood Type O POSITIVE 10/29/16 14:41 Antibody Screen Negative 10/29/16 14:41 - Hospital Course Hospital Course: On admission: Patient is a 76 year old female with a history of IDDM and HTN who lives alone is brought in by ambulance after she was found by her daughter at home with acute confusion and found to bey hypoglycemic. Patient is seen at bedside with daughter present who came over around 7 am to her mother's house. She found her mother was very confused and to have very low blood sugar. She then called 911 and she was then taken to the hospital. Patient's daughter was unsure of her medical history or her medications. Patient's daughter reports no shortness of breath, cough, fever, chills, vomiting Hospital Course: Patient initially presented for management of hypoglycemia. Patient responded to D50 and monitored. Patient did become hyperglycemic during later course requiring tighter monitoring of blood glucose levels. At this time, patient's intake was quite poor and thus she was encouraged to eat day by day. This was difficult because patient stated that she did not have much of an appetite and thus family helped to encourage her to eat as well. Patient stated that she lost weight as well over the past couple of weeks while at home which was concerning for other pathology at play. Thus, GI was consulted with recommendations for management of patient's decreased appetite. PEG was suggested at the time; however it was decided that if patient could be encouraged to eat, that procedure could likely be avoided. CT imaging was also ordered because patient stated that she had a history of colon cancer in the past. It was unclear what kind of cancer; and records were unable to be obtained from [facility] [place] where [place] prior procedure to remove a suspected mass was stated to be performed. Patient did state that she wanted to follow up with her primary care physician as well as GI doctor regarding that matter. In addition, patient was found to have a pneumonia and concurrent UTI for which she was treated on IV antibiotics. Of note, patient did lose IV access for a few days due to complaints of a malfunctioning IV and thus a PICC line ended up being placed. Patient had to be counseled on the benefits of a PICC line. Patient was at first very hesitant due aversion of needles and complaints of arm soreness at IV insertion site. Psych was consulted as well, because patient became quite hysterical during the situation regarding the PICC line. It was noted that patient may have had some beginning stages of mid cognitive defects. Nephrology also consulted regarding worsening kidney functioning. Urine studies were collected which confirmed worsening creatinine clearance. Patient to follow up outpatient . Patient will likely require dialysis at some point in the future if compliant. Patient complained of left sided neck discomfort associated with coughs for which thyroid studies and imaging was performed. Thyroid studies came back negative. XRAY imaging recommended CT with IV contrast however due to poor GFR and creatinine levels, CT w/o IV contrast was performed. Again, there were no clear identifiable structures and thus patient to follow up outpatient for further workup if deemed appropriate. Patient deemed stable for discharge to subacute rehab for further strengthening and completion of antibiotics. This is a brief summary of events. For a complete course, refer to the medical record. Discharge Exam - Head Exam Head Exam: ATRAUMATIC, NORMAL INSPECTION, NORMOCEPHALIC - Eye Exam Eye Exam: EOMI, Normal appearance, PERRL Pupil Exam: NORMAL ACCOMODATION, PERRL - ENT Exam ENT Exam: Mucous Membranes Moist - Neck Exam Neck exam: Full Rom - Respiratory Exam Respiratory Exam: NORMAL BREATHING PATTERN - Cardiovascular Exam Cardiovascular Exam: +S1, +S2 - GI/Abdominal Exam GI & Abdominal Exam: Normal Bowel Sounds - Extremities Exam Extremities exam: full ROM, pedal pulses present - Back Exam Back exam: FULL ROM - Neurological Exam Neurological exam: Alert, CN II-XII Intact - Psychiatric Exam Psychiatric exam: Normal Affect, Normal Mood - Skin Skin Exam: Dry, Intact, Warm Discharge Plan - Follow Up Plan Condition: IMPROVED Disposition: REHAB FACILITY/REHAB UNIT Instructions: Heart Failure (DC), Urinary Tract Infection in Women (DC), Altered Mental Status (GEN), Pneumonia (DC) Additional Instructions: Patient is medically stable for discharge to [facility]. Patient should follow up with Primary Medical doctor within one week of discharge from [facility]. Patient should follow up with [employer] Dr. Martinez within two weeks of discharge from rehab. Patient may resume medications that were listed in discharge list Patient will take antibiotics for two more days. She will take her last antibiotic dose on Saturday. Patient should eat a probiotic yogurt while finishing up antibiotics (once daily). If symptoms return, go to the emergency room. Instructions were explained to patient and family member who are aware. Referrals: Schuyler Martinez MD [Staff Provider] - Clinical Quality Measures - CQM - Heart Failure Ejection Fraction: 40 % or Greater <Michael Lockhart - Last Filed: 11/02/16 16:03> Provider - Provider Date of Admission: 10/20/16 11:45 Attending physician: Yamileth Smith DO Hospital Course - Lab Results Lab Results: Micro Results 10/20/16 Unknown Urine Urine Culture - Final No Growth (<1,000 CFU/ML) Most Recent Lab Values WBC 7.3 K/uL (4.8-10.8) 11/01/16 06:12 RBC 3.19 Mil/uL (3.80-5.20) L 11/01/16 06:12 Hgb 8.8 g/dL (11.0-16.0) L 11/01/16 06:12 Hct 26.7 % (34.0-47.0) L 11/01/16 06:12 MCV 83.7 fL (81.0-99.0) 11/01/16 06:12 MCH 27.6 pg (27.0-31.0) 11/01/16 06:12 MCHC 33.0 g/dL (33.0-37.0) 11/01/16 06:12 RDW 15.2 % (11.5-14.5) H 11/01/16 06:12 Plt Count 244 K/uL (130-400) 11/01/16 06:12 MPV 8.6 fL (7.2-11.7) 11/01/16 06:12 Neut % (Auto) 76.4 % (50.0-75.0) H 11/01/16 06:12 Lymph % (Auto) 14.5 % (20.0-40.0) L 11/01/16 06:12 Finney % (Auto) 5.4 % (0.0-10.0) 11/01/16 06:12 Eos % (Auto) 2.9 % (0.0-4.0) 11/01/16 06:12 Baso % (Auto) 0.8 % (0.0-2.0) 11/01/16 06:12 Neut # 5.6 K/uL (1.8-7.0) 11/01/16 06:12 Lymph # 1.1 K/uL (1.0-4.3) 11/01/16 06:12 Finney # 0.4 K/uL (0.0-0.8) 11/01/16 06:12 Eos # 0.2 K/uL (0.0-0.7) 11/01/16 06:12 Baso # 0.1 K/uL (0.0-0.2) 11/01/16 06:12 Neutrophils % (Manual) 86 % (50-75) H 10/24/16 07:16 Lymphocytes % (Manual) 5 % (20-40) L 10/24/16 07:16 Monocytes % (Manual) 8 % (0-10) 10/24/16 07:16 Eosinophils % (Manual) 1 % (0-4) 10/24/16 07:16 Basophils % (Manual) 2 % (0-2) 10/23/16 06:30 Toxic Granulation Present 10/20/16 10:17 Platelet Estimate Normal (NORMAL) 10/24/16 07:16 Large Platelets Present 10/20/16 10:17 Polychromasia Slight 10/20/16 10:17 Hypochromasia (manual) Slight 10/24/16 07:16 Poikilocytosis (manual Slight 10/24/16 07:16 Anisocytosis (manual) Slight 10/24/16 07:16 Microcytosis (manual) Slight 10/24/16 07:16 Macrocytosis (manual) Slight 10/24/16 07:16 Target Cells Slight 10/24/16 07:16 Tear Drop Cells Slight 10/23/16 06:30 Ovalocytes Slight 10/24/16 07:16 [place] Cells Slight 10/24/16 07:16 Schistocytes Slight 10/20/16 10:17 Retic Count 1.1 % (0.5-1.5) 10/24/16 16:37 pO2 15 mm/Hg (30-55) L 10/20/16 10:15 VBG pH 7.22 (7.32-7.43) L 10/20/16 10:15 VBG pCO2 52 mmHg (40-60) 10/20/16 10:15 VBG HCO3 17.3 mmol/L 10/20/16 10:15 VBG Total CO2 22.9 mmol/L (22-28) 10/20/16 10:15 VBG O2 Sat (Calc) 22.4 % (40-65) L 10/20/16 10:15 VBG Base Excess -6.8 mmol/L (0.0-2.0) L 10/20/16 10:15 VBG Potassium 5.1 mmol/L (3.6-5.2) 10/20/16 10:15 Sodium 142.0 mmol/l (132-148) 10/20/16 10:15 Chloride 113.0 mmol/L (98-107) H 10/20/16 10:15 Glucose 121 mg/dl (65-105) H 10/20/16 10:15 Lactate 1.3 mmol/L (0.7-2.1) 10/20/16 10:15 Sodium 138 mmol/L (132-148) 11/01/16 06:12 Potassium 4.6 mmol/L (3.6-5.2) 11/01/16 06:12 Chloride 102 mmol/L (98-107) 11/01/16 06:12 Carbon Dioxide 23 mmol/L (22-30) 11/01/16 06:12 Anion Gap 17 (10-20) 11/01/16 06:12 BUN 73 mg/dL (7-17) H 11/01/16 06:12 Creatinine 4.0 MG/DL (0.7-1.2) H 11/01/16 06:12 Est GFR ( Amer) 13 11/01/16 06:12 Est GFR (Non-Af Amer) 11 11/01/16 06:12 POC Glucose (mg/dL) 336 mg/dL (65-110) H 11/01/16 11:25 Random Glucose 125 mg/dL (65-105) H 11/01/16 06:12 Hemoglobin A1c 7.0 % (4.2-6.5) H 10/21/16 06:06 Calcium 8.3 mg/dl (8.6-10.4) L 11/01/16 06:12 Phosphorus 4.6 mg/dL (2.5-4.5) H 11/01/16 06:12 Magnesium 1.8 mg/dL (1.6-2.3) 11/01/16 06:12 Iron 22 ug/dL (37-170) L 10/24/16 16:37 TIBC 185 ug/dL (250-450) L 10/24/16 16:37 % Saturation 12 (20-55) L 10/24/16 16:37 Ferritin 179.0 ng/mL 10/24/16 16:37 Total Bilirubin 0.7 mg/dL (0.2-1.3) 11/01/16 06:12 AST 24 U/L (14-36) 11/01/16 06:12 ALT 27 U/L (9-52) 11/01/16 06:12 Alkaline Phosphatase 93 U/L (38-126) 11/01/16 06:12 Total Creatine Kinase 383 U/L (30-135) H 10/20/16 23:05 CK-MB (Mass) 2.79 ng/mL (0.0-3.38) 10/20/16 23:05 Troponin I 0.0230 ng/mL (0.00-0.120) 10/20/16 10:17 Troponin I, Quant 0.0240 ng/mL (0.00-0.120) 10/20/16 23:05 NT-Pro-B Natriuret Pep 49410 pg/mL (0-900) H 10/23/16 14:07 Total Protein 6.3 g/dL (6.3-8.3) 11/01/16 06:12 Albumin 3.2 g/dL (3.5-5.0) L 11/01/16 06:12 Globulin 3.1 gm/dL (2.2-3.9) 11/01/16 06:12 Albumin/Globulin Ratio 1.0 (1.0-2.1) 11/01/16 06:12 Vitamin B12 680 pg/mL (239-931) 10/24/16 16:37 Folate 10.6 ng/mL 10/24/16 16:37 Procalcitonin 0.52 NG/ML (0.19-0.49) H 10/30/16 06:28 TSH 3rd Generation 1.44 mIU/L (0.46-4.68) 10/21/16 06:06 PTH Intact Whole Molec 163 pg/mL (14-64) H 10/20/16 16:54 Venous Blood Potassium 5.1 mmol/L (3.6-5.2) 10/20/16 10:15 Urine Color Yellow (YELLOW) 10/20/16 10:29 Urine Clarity Hazy (Clear) 10/20/16 10:29 Urine pH 5.0 (5.0-8.0) 10/20/16 10:29 Ur Specific [place] 1.013 (1.003-1.030) 10/20/16 10:29 Urine Protein 2+ mg/dL (NEGATIVE) H 10/20/16 10:29 Urine Glucose (UA) 2+ mg/dL (Normal) H 10/20/16 10:29 Urine Ketones Negative mg/dL (NEGATIVE) 10/20/16 10:29 Urine Blood 1+ (NEGATIVE) H 10/20/16 10:29 Urine Nitrate Negative (NEGATIVE) 10/20/16 10:29 Urine Bilirubin Negative (NEGATIVE) 10/20/16 10:29 Urine Urobilinogen Normal mg/dL (0.2-1.0) 10/20/16 10:29 Ur Leukocyte Esterase 3+ Nova/uL (Negative) H 10/20/16 10:29 Urine WBC (Auto) 53 /hpf (0-5) H 10/20/16 10:29 Urine RBC (Auto) 4 /hpf (0-3) H 10/20/16 10:29 Ur Squamous Epith Cells 4 /hpf (0-5) 10/20/16 10:29 Ur Transition Epith Cell 3 /hpf (0-3) 10/20/16 10:29 Amorphous Sediment Rare /ul (<OCC) H 10/20/16 10:29 Urine Bacteria Rare (<OCC) 10/20/16 10:29 Urine Collection Time 24 HRS 10/31/16 19:48 Urine Total Volume 2250 mL 10/31/16 19:48 Creatinine Clearance 15.0 mL/min (87-107) L 10/31/16 19:48 Ur Protein 24 Hr Calc 855.0 mg/24hr (42-225) H 10/31/16 19:48 Stool Occult Blood Negative (NEGATIVE) 10/31/16 22:57 Blood Type O POSITIVE 10/29/16 14:41 Antibody Screen Negative 10/29/16 14:41 Attending/Attestation - Attestation I have personally seen and examined this patient.: Yes I have fully participated in the care of the patient.: Yes I have reviewed all pertinent clinical information, including history, physical exam and plan: Yes Notes (Text): 11/02/16 15:56 Medical Attending: Patient was seen and examined by me. Agree with the above note by the resident. This is a later entry. Pt was discharged previous day. She was tolerating diet - and we had to urge her to eat. Her blood glucoses were not low. Her family has been faithfully encouraging her to eat. She also had a blood transfusion and her Hgb has been stable for several days as well She also will be continued with several more days of IV abx, she currently has a PICC line for easier access - it took a while to convince her to have PICC line She is also needs to have blood work to monitor her CKD as well thank you Michael Lockhart
--- NOTE | 2016-11-01 17:47 | PCM.HF ---
Heart Failure Core Measure - Heart Failure Ejection Fraction: 40 % or Greater (LVEF 63%) MARIA VICTORIA Inhibitor Prescribed: Yes Beta-Stuart Prescribed: Metoprolol Succinate Angiotensin II Receptor Stuart Prescribed: No Contraindication/Reason for not providing: ON MARIA VICTORIA AnticoagulationTherapy for Atrial Fibrillation/Atrialflutter: No Contraindication/Reason for not providing: NO AFIB Aldosterone Antagonist Prescribed: No Contraindication/Reason for not providing: LVEF >40% Hydralazine Nitrate Prescribed: No Contraindication/Reason for not providing: LVEF >40% Implantable Cardioverter Defibrillator Therapy: No Contraindication/Reason for not providing: LVEF >40% Cardiac Resynchronization Therapy Prescribed: No Contraindication/Reason for not providing: LVEF >40% - Follow up Will be discharged to: [facility] Follow Up Date (must be within 7 days from discharge): 11/05/16 Follow Up Time: 09:00
--- NOTE | 2016-11-01 17:53 | CT ---
PROCEDURE: CT NECK WITHOUT CONTRAST HISTORY: neck tenderness ;not well visualized on xray COMPARISON: None. TECHNIQUE: CT of the neck without intravenous contrast. Coronal and sagittal reformats generated. Radiation dose: DLP 433.50 mGy-cm This CT exam was performed using one or more of the following dose reduction techniques: Automated exposure control, adjustment of the mA and/or kV according to patient size, and/or use of iterative reconstruction technique. FINDINGS: NASOPHARYNX: Unremarkable. SUPRAHYOID NECK: Unremarkable oropharynx, oral cavity, parapharyngeal space and retropharyngeal space. INFRAHYOID NECK: Unremarkable larynx, hypopharynx, and supraglottic space. Vocal cords intact. MASS: None. GLANDS: Parotid and submandibular glands unremarkable. Normal size thyroid gland, without nodule. LYMPH NODES: Normal. No lymphadenopathy. CERVICAL SPINE: No fracture or focal lesion. OTHER FINDINGS: Incompletely visualized pleural effusions. Lung apices demonstrate focal scarring, of emphysematous changes/bronchitis. IMPRESSION: No significant or acute findings to account for/ related to the clinical presentation. Concordant results (preliminary interpretation) provided by [facility]. Procedure Completed: 20:09. Preliminary ([facility]) Report: Dictated and Authenticated: 20:51. Final Interpretation: 17:47. November 01, 2016.
== END 2016-11-01 13:56 | DRG 871 ==
LOC: C.ER 09:41 → C.9E 11:45 → C.6T 12:37
PROVIDERS: ADMIT Hospitalist; ATTEND Hospitalist
PROC: 30233N1 Transfusion of Nonautologous Red Blood Cells into Peripheral Vein, Percutaneous Approach (ICD-10-PCS; principal; 2016-10-29)
PROC: 02HV33Z Insertion of Infusion Device into Superior Vena Cava, Percutaneous Approach (ICD-10-PCS; 2016-10-29)
DX: A41.9 Sepsis, unspecified organism (principal); J18.9 Pneumonia, unspecified organism; G93.41 Metabolic encephalopathy; E46 Unspecified protein-calorie malnutrition; I13.0 Hypertensive heart and chronic kidney disease with heart failure and stage 1 through stage 4 chronic kidney disease, or unspecified chronic kidney disease; N18.4 Chronic kidney disease, stage 4 (severe); I50.9 Heart failure, unspecified; E10.22 Type 1 diabetes mellitus with diabetic chronic kidney disease; N39.0 Urinary tract infection, site not specified; E10.649 Type 1 diabetes mellitus with hypoglycemia without coma; R65.20 Severe sepsis without septic shock; E87.5 Hyperkalemia; D63.1 Anemia in chronic kidney disease; J45.909 Unspecified asthma, uncomplicated; M19.90 Unspecified osteoarthritis, unspecified site; E78.00 Pure hypercholesterolemia, unspecified; Z86.73 Personal history of transient ischemic attack (TIA), and cerebral infarction without residual deficits; Z85.038 Personal history of other malignant neoplasm of large intestine; Z88.0 Allergy status to penicillin; Z79.4 Long term (current) use of insulin; G31.84 Mild cognitive impairment of uncertain or unknown etiology; F41.9 Anxiety disorder, unspecified; J43.9 Emphysema, unspecified

== ENCOUNTER 2017-02-25 15:32 | Inpatient (IN) | payer MEDICARE ==
[2017-02-25 15:33] VITALS: BMI 24.0
--- NOTE | 2017-02-25 16:30 | C.PDOC ---
History Of Present Illness Patient BIBA for evaluation of hypoglycemia. Patient was found appearing confused, less responsive than usual at home by a family member. Patient has h/ o IDDM, asthma, HTN, hyperlipidemia, PNA, CKD (has AV fistula but not currently on HD). Accucheck was 46 on EMS arrival, patient given an amp of D50 in the field. Accucheck 118 on ED arrival. Time Seen by Provider: 02/25/17 16:05 Chief Complaint (Nursing): High Blood Sugar History Per: Patient, EMS, Family History/Exam Limitations: clinical condition Current Symptoms Are (Timing): Still Present Severity: Moderate Current Diabetic Medications: Insulin Past Medical History Reviewed: Historical Data, Nursing Documentation, Vital Signs Vital Signs: Last Vital Signs Temp 98.1 F 03/01/17 07:00 Pulse 79 03/01/17 07:00 Resp 18 03/01/17 07:00 BP 147/61 03/01/17 09:12 Pulse Ox 97 03/01/17 07:00 - Medical History PMH: Anemia, Arthritis, Asthma (Dx 15 yrs ago,does not use home o2 anymore), Diabetes, Fractures (Right ankle. No sx, casted), HTN, Hypercholesterolemia, Peripheral Edema, Pneumonia (x2), Chronic Kidney Disease, TIA (x3 about 20 yrs ago, 10 yrs ago, 7 yrs ago) Surgical History: Endoscopy - [facility] Procedures INJECT/INFUSE NEC (07/22/14) INSERTION OF INFUSION DEV INTO SUP VENA CAVA, PERC APPROACH (10/20/16) TRANSFUSE NONAUT RED BLOOD CELLS IN PERIPH VEIN, PERC (10/20/16) Family History: States: No Known Family Hx - Social History Hx Tobacco Use: No Hx Alcohol Use: No Hx Substance Use: No - Immunization History Hx Tetanus Toxoid Vaccination: No Hx Influenza Vaccination: No Hx Pneumococcal Vaccination: No Review Of Systems Review Of Systems: ROS cannot be obtained secondary to pt's inabilty to answer questions. Physical Exam - Physical Exam Appears: Non-toxic, In Acute Distress (moaning, awake, alert) Skin: Normal Color, Dry, Other (skin cool to the touch) Eye(s): bilateral: Normal Inspection, PERRL, EOMI Oral Mucosa: Moist Cardiovascular: Rhythm Regular Respiratory: Normal Breath Sounds, No Rales, No Rhonchi, No Wheezing Gastrointestinal/Abdominal: Normal Exam, Bowel Sounds, Soft, No Tenderness Extremity: Normal ROM, No Tenderness, No Calf Tenderness, Other (AV fistula left arm with palpable thrill) Neurological/Psych: Other (awake, alert, confused, moving all 4 extremities spontaneously) ED Course And Treatment - Laboratory Results Result Diagrams: 02/28/17 06:10 02/28/17 06:10 ECG: Interpreted By Me, Viewed By Me (NSR 70 bpm, normal axis, no acute ST/T wave changes) ECG Interpretation: Normal O2 Sat by Pulse Oximetry: 92 (RA) Pulse Ox Interpretation: Abnormal - Other Rad CXR X-Ray: Viewed By Me, Read By Radiologist Interpretation: Accession No. : [id number]. Patient Name / ID : RAIMUNDO VANEGAS / [id number]. Exam Date : 02/25/2017 16:37:15 ( Approved ). Study Comment : Sex / Age : F / [id number]. Creator : Thien Cowan MD. Dictator : Thien Cowan MD. Agricultural Commodities Grader : Ship Design Teacher : Thein Cowan MD. Approver2 : Report Date : 02/25/2017 17:17:10. My Comment : . PROCEDURE: CHEST RADIOGRAPH, 1 VIEW. HISTORY: SOB. COMPARISON: Comparison made with prior chest radiograph 10/30/2016. FINDINGS: LUNGS: The central pulmonary vasculature is slightly increased though improved from prior study ; rule out chronic compensated pulmonary edema/CHF. Left lower lobe opacity which may represent some combination of effusion with atelectasis and/or infiltrate. The central pulmonary vasculature is minimally increased. Suspect minor right basilar atelectasis. PLEURA: No pneumothorax or pleural fluid seen. CARDIOVASCULAR: Heart size is upper limits of normal/ borderline enlarged. OSSEOUS STRUCTURES: No significant abnormalities. VISUALIZED UPPER ABDOMEN: Normal. OTHER FINDINGS: None. IMPRESSION: The central pulmonary vasculature is slightly increased though improved from prior study ; rule out chronic compensated pulmonary edema/CHF Left lower lobe opacity likely representing some combination of effusion with atelectasis/ infiltrate. Suspect minor right basilar atelectasis Progress Note: Blood work, UA, CXR, EKG ordered and reviewed. Blood sugar on VBG/CMP again in 40s - amp D50 given and IV NS + D5 ordered. CXr shows left sided effusion, ? possible infiltrate - IV rocephin and Azithromycin ordered. Avelox currently back ordered and unavailable. Patient states her PCN allergy is rash/itching. Will order benadryl IV PRN in case of cross reaction with rocephin. Reevaluation Time: 18:00 Reassessment Condition: Improved (Patient appears significantly improved, awake & alert.) - Physician Consult Information Physician Contacted: Yamileth Smith Outcome Of Conversation: Discussed patient with hospitalist, agrees with admission to their service. Critical Care Time - Critical Care Note Total Time (in mins): 40 Documented critical care: time excludes all time spent performing seperately billable procedures. Disposition - Disposition Disposition: HOSPITALIZED Disposition Time: 18:42 Condition: STABLE - Clinical Impression Clinical Impression: Pneumonia, Pleural effusion, left, Elevated brain natriuretic peptide (BNP) level, Hypothermia, Hypoglycemia Decision To Admit - Pt Status Changed To: Hospital Disposition Of: Inpatient - Admit Certification Admit to Inpatient:: After my assessment, the patient will require hospitalization for at least two midnights. This is because of the severity of symptoms shown, intensity of services needed, and/or the medical risk in this patient being treated as an outpatient. - InPatient: Physician Admission Certification: I certify that this patient requires 2 or more midnights of care for the following reason:: see notes - . Bed Request Type: Telemetry Admitting Physician: Yamileth Smith Patient Diagnosis: Hypoglycemia, Pleural effusion, left, Elevated brain natriuretic peptide (BNP) level, Hypothermia, Pneumonia
--- NOTE | 2017-02-25 17:18 | RAD ---
PROCEDURE: CHEST RADIOGRAPH, 1 VIEW HISTORY: SOB COMPARISON: Comparison made with prior chest radiograph 10/30/2016 FINDINGS: LUNGS: The central pulmonary vasculature is slightly increased though improved from prior study ; rule out chronic compensated pulmonary edema/CHF Left lower lobe opacity which may represent some combination of effusion with atelectasis and/or infiltrate. The central pulmonary vasculature is minimally increased. Suspect minor right basilar atelectasis. PLEURA: No pneumothorax or pleural fluid seen. CARDIOVASCULAR: Heart size is upper limits of normal/ borderline enlarged. OSSEOUS STRUCTURES: No significant abnormalities. VISUALIZED UPPER ABDOMEN: Normal. OTHER FINDINGS: None. IMPRESSION: The central pulmonary vasculature is slightly increased though improved from prior study ; rule out chronic compensated pulmonary edema/CHF Left lower lobe opacity likely representing some combination of effusion with atelectasis/ infiltrate. Suspect minor right basilar atelectasis
[2017-02-25 17:20] LABS: VENOUS BLOOD GAS PCO2 52 mmHg (40-60); VENOUS BLOOD PH 7.28 (7.32-7.43)
[2017-02-25] MEDS ORDERED: Dextrose 50% SYRINGE Inj (50 ml) IVP STA (17:24)
[2017-02-25 17:26] LABS: POTASSIUM 4.4 mmol/L (3.6-5.2)
[2017-02-25 17:29] LABS: ALB/GLOB RATIO 1.1 (1.0-2.1); BILIRUBIN,TOTAL 1.1 mg/dL (0.2-1.3); CALCIUM 10.4 mg/dl (8.6-10.4); TOTAL PROTEIN 8.6 g/dL (6.3-8.3)
[2017-02-25] MEDS ORDERED: Dextrose 5%/0.9% NS 1,000 ML IV ONE ×2 (17:32→17:52)
[2017-02-25 17:41] LABS: TROPONIN I 0.025 ng/mL (0.00-0.120)
[2017-02-25] MEDS ORDERED: Dextrose 50% SYRINGE Inj (50 ml) ONE (17:52)
[2017-02-25 18:10] LABS: RBC URINE 1 /hpf (0-3); URINE BILIRUBIN NEGATIVE (NEGATIVE); URINE BLOOD 1+ (NEGATIVE); URINE COLOR Colorless (YELLOW); URINE GLUCOSE (UA) 1+ mg/dL (Normal); URINE KETONE NEGATIVE (NEGATIVE); URINE LEUKOCYTE ESTERASE NEG Leu/uL (Negative); URINE PROTEIN 1+ mg/dL (NEGATIVE); URINE UROBILINOGEN NORMAL mg/dL (0.2-1.0); WBC URINE < 1 /hpf (0-5)
[2017-02-25 18:11] LABS: URINE BACTERIA RARE (<OCC)
[2017-02-25 18:26] LABS: BASO # 0.1 K/uL (0.0-0.2); BASO % 0.7 % (0.0-2.0); EOS % 0.6 % (0.0-4.0); HEMATOCRIT 35.3 % (34.0-47.0); LYMPH # 0.8 K/uL (1.0-4.3); LYMPH % 9.3 % (20.0-40.0); MEAN CELL VOLUME 87.5 fL (81.0-99.0); MEAN CORPUSCULAR HEMOGLOBIN 28.2 pg (27.0-31.0); MEAN CORPUSCULAR HGB CONC 32.2 g/dL (33.0-37.0); MEAN PLATELET VOLUME 8.3 fL (7.2-11.7); MONO # 0.2 K/uL (0.0-0.8); MONO % 2.6 % (0.0-10.0); NRBC % 0.2 % (0.0-2.0); PLATELET COUNT 279 K/uL (130-400); RED CELL DISTRIBUTION WIDTH 16.5 % (11.5-14.5); WHITE BLOOD COUNT 8.4 K/uL (4.8-10.8)
[2017-02-25] MEDS ORDERED: Azithromycin 500 MG in Sodium Chloride 0.9% 250 ML IVPB STA (18:32)
[2017-02-25] MEDS ORDERED: Azithromycin 500mg/250ML NS 500 MG/250 ML BAG IVPB ONE (18:45)
[2017-02-25] MEDS ORDERED: cefTRIAXone IV 1 gm in Dextros 50 ML IVPB ONE (18:45)
[2017-02-25 19:05] LABS: NEUTROPHIL 93 % (50-75); TOTAL CELLS COUNTED 100
--- NOTE | 2017-02-25 19:59 | CP.PCM.HP ---
<Priya Buckner E - Last Filed: 02/25/17 23:25> History of Present Illness - History of Present Illness History of Present Illness: CC: Transient altered mental status change HPI: 75 year old female with PMHx significant for HTN, asthma, arthritis, pneumonia, diabetes mellitus, prior TIAs and chronic kidney disease presents to the ED with complaint of transient altered mental status. Patient was found to be confused this morning by her son. Thereafter, patient's son called his sister who then instructed him to call the ambulance. As per EMS, patient was found to have a blood glucose of 42 and was administered D50 on the field. Upon arrival to the ED, patient's blood glucose was 118. Currently, patient is without symptoms and she is awake, alert and oriented. Patient's daughter states that her mother has been without visiting care givers for approximately a week and she is unsure of the reason. Patient reports that she has not been eating well and tends to skip meals even though she is hungry. Patient denies fever, chills, nausea, vomiting, headache, visual disturbances, chest pain, palpitations, diarrhea, urinary symptoms but does have complains of bilateral leg cramping. PMD: Dr. Saldaña PMHx: As per chart review and patient's daughter: HTN, asthma, arthritis, pneumonia, diabetes mellitus, prior TIAs and chronic kidney disease PSHx: left arm AV fistula, and as per chart review: stomach mass removal FHx: Positive for DM Medications: Aspirin 81mg PO daily, Calcitriol 0.25mcg MWF, Feosol 325mg PO BID , Lasix 40mg PO Daily, Novolog 100units TIDAC, Lantus 20 units SC HS, Labetalol 200mg PO BID, Lisinopril 5mg PO daily, Megace 40mg PO daily, Pantoprazole 20mg PO daily Allergies: Penicillin with rash reaction Social History: Lives alone, former smoker (for 20 years, 1PPD), denies ETOH and illicit drugs. Medication given: D50 by EMS, labetalol 100mg PO, Tylenol 650mg PO, Azithromycin 500mg IVPB, Rocephin 1gm IVPB and Dextrose 50ml IVP Present on Admission - Present on Admission Any Indicators Present on Admission: No Review of Systems - Constitutional Constitutional: absent: Chills, Fever, Headache, Malaise, Night Sweats, Weakness - EENT Eyes: absent: Blurred Vision, Change in Vision Ears: absent: Dizziness - Cardiovascular Cardiovascular: absent: Chest Pain, Diaphoresis, Dyspnea, Leg Edema, Palpitations - Respiratory Respiratory: absent: Cough, Dyspnea - Gastrointestinal Gastrointestinal: absent: Abdominal Pain, Diarrhea, Nausea, Vomiting - Genitourinary Genitourinary: absent: Dysuria, Pyuria, Urinary Frequency - Musculoskeletal Musculoskeletal: Muscle Cramps. absent: Numbness, Tingling Additional comments: B/L leg cramps - Neurological Neurological: absent: Dizziness, Numbness, Focal Weakness, Headaches, Paresthesias, Syncope, Tingling - Psychiatric Psychiatric: Change in Appetite, Confusion - Endocrine Endocrine: absent: Palpitations Past Patient History - Infectious Disease Hx of Infectious Diseases: None - Tetanus Immunizations Tetanus Immunization: Unknown - Past Medical History & Family History Past Medical History?: Yes - Past Social History Smoking Status: Never Smoked - CARDIAC Hx Hypercholesterolemia: Yes Hx Hypertension: Yes Hx Peripheral Edema: Yes - PULMONARY Hx Asthma: Yes (Dx 15 yrs ago,does not use home o2 anymore) Hx Pneumonia: Yes (x2) - NEUROLOGICAL Hx Transient Ischemic Attacks (TIA): Yes (x3 about 20 yrs ago, 10 yrs ago, 7 yrs ago) - HEENT Hx HEENT Problems: Yes Hx Cataracts: Yes (Seferino IOL) - RENAL Hx Chronic Kidney Disease: Yes - HEMATOLOGICAL/ONCOLOGICAL Hx Anemia: Yes - INTEGUMENTARY Hx Dermatological Problems: Yes Other/Comment: Bilateral lower legs dry skin - MUSCULOSKELETAL/RHEUMATOLOGICAL Hx Arthritis: Yes Hx Fractures: Yes (Right ankle. No sx, casted) - GASTROINTESTINAL Hx Gastrointestinal Disorders: Yes Other/Comment: Hx colon cancer - GENITOURINARY/GYNECOLOGICAL Hx Genitourinary Disorders: No - PSYCHIATRIC Hx Substance Use: No - SURGICAL HISTORY Hx Cataract Extraction: Yes (LEFT) - ANESTHESIA Hx Anesthesia: Yes Hx Anesthesia Reactions: No Hx Malignant Hyperthermia: No Meds Allergies/Adverse Reactions: Allergies Allergy/AdvReac Type Severity Reaction Status Date / Time Penicillins Allergy Intermediate RASH Verified 06/05/16 11:49 Physical Exam - Constitutional Appears: No Acute Distress - Head Exam Head Exam: ATRAUMATIC, NORMAL INSPECTION - Eye Exam Eye Exam: EOMI, Normal appearance - Respiratory Exam Respiratory Exam: Clear to Auscultation Bilateral, NORMAL BREATHING PATTERN - Cardiovascular Exam Cardiovascular Exam: REGULAR RHYTHM, +S1, +S2 - GI/Abdominal Exam GI & Abdominal Exam: Normal Bowel Sounds, Soft. absent: Distended, Tenderness - Extremities Exam Extremities exam: Negative for: pedal edema Additional comments: Severe B/L leg dryness - Neurological Exam Neurological exam: Alert, CN II-XII Intact, Oriented x3 Additional comments: Motor strength intact (+5/5) - Psychiatric Exam Psychiatric exam: Normal Affect, Normal Mood - Skin Skin Exam: Dry, Normal Color, Warm Results - Vital Signs Recent Vital Signs: Last Vital Signs Temp 96.0 F L 02/25/17 18:33 Pulse 83 02/25/17 18:33 Resp 24 02/25/17 18:33 BP 161/93 H 02/25/17 18:33 Pulse Ox 92 L 02/25/17 18:51 - Labs Result Diagrams: 02/25/17 18:11 02/25/17 17:14 Assessment & Plan (1) Altered mental status Assessment and Plan: Possibly secondary to diabetic hypoglycemic episode * Dextrose 50mg IVP given * Blood glucose stable * Supplement diet ( due to decrease PO intake) Labs: UA: Negative F/U urine culture and blood culture Imaging: -CT head without contrast: No acute findings seen within the brain. Evidence of chronic ischemic changes - Chest X-ray: The central pulmonary vasculature is slightly increased though improved from prior study ; rule out chronic compensated pulmonary edema/CHF. Suspect minor right basilar atelectasis Status: Acute (2) Insulin dependent diabetes mellitus Assessment and Plan: Hemoglobin A1c (10/21/16): 7.0 * F/u repeat HgbA1c ISS ( Moderate) Accuchecks Encourage intake Monitor Status: Acute (3) Hypertension Assessment and Plan: Continue home medication: * Labetatol 200mg PO BID * Lisinopril 5mg PO daily * Monitor BP Status: Acute (4) Chronic kidney disease Assessment and Plan: Nephrology Consult---> Dr. Schuyler Martinez ( Help appreciated) BUN/CR: * 52/3.8 GFR: 14 - Left AV fistula in place for possible future dialysis Continue home medication: * Calcitriol 0.25mcg PO MWF * Feosol 325mg PO BID Status: Acute (5) History of anemia Assessment and Plan: H/H stable Continue home medication: * Feosol 325mg PO BID Status: Acute (6) Prophylactic measure Assessment and Plan: Scds Heparin 5000 units SC Q8H Protonix 20mg PO daily Status: Acute <Christiano Chavez - Last Filed: 02/26/17 06:04> Results - Vital Signs Recent Vital Signs: Last Vital Signs Temp 97.5 F L 02/26/17 04:34 Pulse 83 02/26/17 04:34 Resp 20 02/25/17 23:05 BP 178/69 H 02/26/17 04:34 Pulse Ox 98 02/26/17 04:34 - Labs Result Diagrams: 02/25/17 18:11 02/25/17 17:14 Labs: Laboratory Results - last 24 hr 02/25/17 02/26/17 20:31 02:10 POC Glucose (mg/dL) 184 H 197 H Assessment & Plan - Date & Time Date: 02/26/17 (I have seen and examined the patient. I agree with the findings and plan of care as documented by Dr. Buckner. Patient with change in mental status. History of diabetes and chronic kidney disease. Consult to nephro. Poor oral intake. Ensure with meals. Monitor blood sugar for hypoglycemia. CT head. Also with uncontrolled hypertension. Continue home meds and adjust as necessary. Monitor for acute changes.) Time: 06:02 Attending/Attestation - Attestation I have personally seen and examined this patient.: Yes I have fully participated in the care of the patient.: Yes I have reviewed all pertinent clinical information: Yes
[2017-02-25] MEDS: (Novolog) Insulin Aspart, Recombinant 100 u/ml 10 ml vial SC SCH (22:31)
--- NOTE | 2017-02-25 22:54 | CT ---
EXAM: CT Head Without Intravenous Contrast EXAM DATE/TIME: 02/25/2017 8:10 PM CLINICAL HISTORY: 76 years old, female; Signs and symptoms; Altered mental status/memory loss; Additional info: AMS TECHNIQUE: Axial computed tomography images of the head/brain without intravenous contrast. All CT scans at this facility use one or more dose reduction techniques, viz.: automated exposure control; ma/kV adjustment per patient size (including targeted exams where dose is matched to indication; ie. head); or iterative reconstruction technique. COMPARISON: No relevant prior studies available. FINDINGS: BRAIN: Areas of encephalomalacia in the right frontal lobe and the right occipital lobe, which are most likely related to old/chronic infarcts. Evidence of a large chronic lacunar infarct in the right basal ganglia, with associated ex vacuo dilatation of the right lateral ventricle. Findings compatible with an old lacunar infarct in the right cerebellum inferiorly. Areas of hypodensity seen in the white matter bilaterally, nonspecific in appearance, but most likely representing chronic small vessel ischemic changes, in a patient of this age. Diffuse, marked, age-related cortical atrophy and ventriculomegaly. No significant acute abnormality identified. No acute hemorrhage seen within the brain. No acute extra-axial fluid collections visualized. No evidence of significant mass effect within the brain. No CT findings to suggest an acute, large territorial infarct, however, small or early acute infarcts may not be visible on CT. VENTRICLES: See above. BONES/JOINTS: No acute fractures or other acute bony abnormality noted. SOFT TISSUES: No acute abnormality of the visualized soft tissues is seen. SINUSES: Visualized paranasal sinuses appear clear. MASTOID AIR CELLS: Mastoid air cells appear clear. IMPRESSION: - No acute findings seen within the brain. - Evidence of chronic ischemic changes, as described. - See above for remaining findings.
[2017-02-26 06:38] LABS: BASO # 0.1 K/uL (0.0-0.2); EOS # 0.1 K/uL (0.0-0.7); EOS % 1.9 % (0.0-4.0); HEMATOCRIT 29.1 % (34.0-47.0); LYMPH # 1.1 K/uL (1.0-4.3); LYMPH % 16.9 % (20.0-40.0); MEAN CELL VOLUME 86.9 fL (81.0-99.0); MEAN CORPUSCULAR HEMOGLOBIN 28.3 pg (27.0-31.0); MEAN CORPUSCULAR HGB CONC 32.6 g/dL (33.0-37.0); MEAN PLATELET VOLUME 8.3 fL (7.2-11.7); MONO # 0.3 K/uL (0.0-0.8); MONO % 4.8 % (0.0-10.0); WHITE BLOOD COUNT 6.5 K/uL (4.8-10.8)
[2017-02-26] MEDS ORDERED: (Novolog) Insulin Aspart, Recombinant 100 u/ml 10 ml vial SC SCH (07:30)
[2017-02-26 07:44] LABS: POTASSIUM 4.2 mmol/L (3.6-5.2)
[2017-02-26 07:47] LABS: BILIRUBIN,TOTAL 0.8 mg/dL (0.2-1.3)
--- NOTE | 2017-02-26 07:54 | CP.PCM.PN ---
<SmithLatonya silverman - Last Filed: 02/26/17 16:13> Subjective - Date & Time of Evaluation Date of Evaluation: 02/26/17 Time of Evaluation: 09:30 - Subjective Subjective: Medicine Progress Note: Patient was seen and examined at bedside in the AM. Patient denies any complaints of chest pain, difficulty breathing, shortness of breath, pain on urination, nausea or vomiting. Patient states she does live home alone and does cook, clean, complete the grocery shopping and does take her medications. Patient states she sometimes forgets to take her medications in the morning and will take them at night. Patient states she does not drive and her three children live in close by her. Patient states she did not receive dialysis yet and is still confused as to why she does need dialysis. Patient denies any other complaints. Objective - Vital Signs/Intake and Output Vital Signs (last 24 hours): Temp Pulse Resp BP Pulse Ox 97.5 F L 83 20 178/69 H 98 02/26/17 04:34 02/26/17 04:34 02/25/17 23:05 02/26/17 04:34 02/26/17 04:34 Intake and Output: 02/26/17 02/26/17 06:59 18:59 Intake Total 500 Output Total 400 Balance 100 - Medications Medications: Current Medications Calcitriol (Rocaltrol) 0.25 mcg PO MWF [facility] Ferrous Sulfate (Feosol) 325 mg PO BID [facility] Heparin Sodium (Porcine) (Heparin) 5,000 units SC Q8 [facility] Last Admin: 02/26/17 06:53 Dose: 5,000 units Insulin Aspart (Novolog) 0 unit SC ACHS [facility] PRN Reason: Protocol Last Admin: 02/25/17 22:31 Dose: Not Given Labetalol HCl (Trandate) 200 mg PO BID [facility] Lisinopril (Zestril) 5 mg PO DAILY [facility] Megestrol Acetate (Megace) 40 mg PO DAILY [facility] Pantoprazole Sodium (Protonix Ec Tab) 20 mg PO DAILY [facility] Pneumococcal Polyvalent Vaccine (Pneumovax 23 Vaccine) 0.5 ml IM .ONCE ONE Stop: 02/28/17 10:01 - Labs Labs: 02/26/17 06:25 02/26/17 07:12 - Constitutional Appears: Well, No Acute Distress - Head Exam Head Exam: ATRAUMATIC, NORMAL INSPECTION, NORMOCEPHALIC - Eye Exam Eye Exam: EOMI, Normal appearance, PERRL Pupil Exam: NORMAL ACCOMODATION - ENT Exam ENT Exam: Mucous Membranes Moist - Respiratory Exam Respiratory Exam: Clear to Ausculation Bilateral, NORMAL BREATHING PATTERN. absent: Rales, Rhonchi, Wheezes, Respiratory Distress, Stridor - Cardiovascular Exam Cardiovascular Exam: REGULAR RHYTHM, RRR, +S1, +S2, Murmur (systolic murmur ) - GI/Abdominal Exam GI & Abdominal Exam: Soft, Normal Bowel Sounds. absent: Distended, Tenderness - Extremities Exam Extremities Exam: Normal Inspection. absent: Pedal Edema, Tenderness - Neurological Exam Neurological Exam: Alert, Awake, Oriented x3 - Psychiatric Exam Psychiatric exam: Normal Affect, Normal Mood - Skin Skin Exam: Normal Color, Warm Assessment and Plan - Assessment and Plan (Free Text) Plan: 1.) Altered mental status - possibly secondary to diabetic hypoglycemic episode * Dextrose 50mg IVP given * Blood glucose stable * Supplement diet ( due to decrease PO intake) UA: Negative Urine culture: negative f/u blood culture CT head without contrast: No acute findings seen within the brain. Evidence of chronic ischemic changes Chest X-ray: The central pulmonary vasculature is slightly increased though improved from prior study ; rule out chronic compensated pulmonary edema/CHF. Suspect minor right basilar atelectasis 2.) Aortic Stenosis - possible CHF Chest X-ray: The central pulmonary vasculature is slightly increased though improved from prior study ; rule out chronic compensated pulmonary edema/CHF. Suspect minor right basilar atelectasis Previous ECHO 10/22/16: EF 63%, aortic valve is severely thickened; mild aortic regurgitation; Mitral valve is severely thickened, a vegetation cannot be ruled out Cardiology Consult: Dr. Jim --> help appreciated 3.) History of Diabetes Hemoglobin A1c (10/21/16): 7.0 * F/u repeat HgbA1c ISS ( Moderate) Accuchecks Encourage intake Monitor 4.) History of Hypertension Labetatol 200mg PO BID Increased Lisinopril 5mg to 10mg PO daily on 02/26 Monitor BP 5.) History of chronic kidney disease - Stage V Nephrology Consult---> Dr. Schuyler Martinez --> Help appreciated - f/u 24 hour urine for Cr Clearance PTH BUN/CR: * 50/3.7 GFR: 14 - Left AV fistula in place for possible future dialysis Continue home medication: * Calcitriol 0.25mcg PO MWF * Feosol 325mg PO BID 6.) History of Anemia H/H stable Continue home medication: * Feosol 325mg PO BID 7.) Prophylactic measure Scds Heparin 5000 units SC Q8H Protonix 20mg PO daily Patient is also currently taking 40mg of Megestrol from home. Per her pharmacy states she did not fill that medication at her current pharmacy ([facility] [phone]). Will follow up with her PMD Dr. Michele Saldaña tomorrow as she was out of the office 02/26. Case discussed with Dr. Live Smith PGY-1 <Shahbaz Mancini - Last Filed: 02/27/17 12:48> Objective - Vital Signs/Intake and Output Vital Signs (last 24 hours): Temp Pulse Resp BP Pulse Ox 98.4 F 85 18 191/73 H 95 02/27/17 07:45 02/27/17 07:50 02/27/17 07:45 02/27/17 07:45 02/27/17 07:45 Intake and Output: 02/27/17 02/27/17 06:59 18:59 Output Total 500 Balance -500 - Medications Medications: Current Medications Calcitriol (Rocaltrol) 0.25 mcg PO MWF [facility] Last Admin: 02/27/17 09:24 Dose: 0.25 mcg Ferrous Sulfate (Feosol) 325 mg PO BID [facility] Last Admin: 02/27/17 09:24 Dose: 325 mg Heparin Sodium (Porcine) (Heparin) 5,000 units SC Q8 [facility] Last Admin: 02/27/17 05:16 Dose: 5,000 units Insulin Aspart (Novolog) 0 unit SC ACHS [facility] PRN Reason: Protocol Last Admin: 02/27/17 08:30 Dose: 2 unit Insulin Glargine (Lantus) 10 unit SC DAILY [facility] Labetalol HCl (Normodyne) 300 mg PO BID [facility] Lisinopril (Zestril) 10 mg PO DAILY [facility] Last Admin: 02/27/17 09:24 Dose: 10 mg Pantoprazole Sodium (Protonix Ec Tab) 20 mg PO DAILY [facility] Last Admin: 02/27/17 09:25 Dose: 20 mg Pneumococcal Polyvalent Vaccine (Pneumovax 23 Vaccine) 0.5 ml IM .ONCE ONE Stop: 02/28/17 10:01 - Labs Labs: 02/27/17 07:52 02/27/17 07:52 Attending/Attestation - Attestation I have personally seen and examined this patient.: Yes I have fully participated in the care of the patient.: Yes I have reviewed all pertinent clinical information, including history, physical exam and plan: Yes Notes (Text): 02/27/17 12:47 Patient was seen and examined at bedside with the resident Patient appears comfortable. Follow up cardiology recommendations the for valvular disease. Renal workup in progress for possible hemodialysis. I discussed the plan of care with the resident and I agree with the assessment and plan documented
[2017-02-26 08:23] LABS: ALB/GLOB RATIO 1.1 (1.0-2.1); CALCIUM 9.5 mg/dl (8.6-10.4); TOTAL PROTEIN 6.7 g/dL (6.3-8.3)
[2017-02-26] MEDS: (Novolog) Insulin Aspart, Recombinant 100 u/ml 10 ml vial SC SCH ×4 (08:40→22:18)
[2017-02-26] MEDS: Pantoprazole 20 mg EC Tab PO SCH (10:13)
--- NOTE | 2017-02-26 11:08 | CP.PCM.CON ---
History of Present Illness - History of Present Illness History of Present Illness: 76 y/o female with Hx/o Stage 1V kidney disease s/p placement of Lt brachiobasilic AV shunt in 08/2016,HTN,DM,Dementia hx/o TIAs, CHF is admitted for altered mental status & hypoglycemia ( BS 42 ). Pt was followed in our office for CKD . Past Patient History - Infectious Disease Hx of Infectious Diseases: None - Tetanus Immunizations Tetanus Immunization: Unknown - Past Medical History & Family History Past Medical History?: Yes - Past Social History Smoking Status: Former Smoker - CARDIAC Hx Hypercholesterolemia: Yes Hx Hypertension: Yes Hx Peripheral Edema: Yes - PULMONARY Hx Asthma: Yes (Dx 15 yrs ago,does not use home o2 anymore) Hx Pneumonia: Yes (x2) - NEUROLOGICAL Hx Transient Ischemic Attacks (TIA): Yes (x3 about 20 yrs ago, 10 yrs ago, 7 yrs ago) - HEENT Hx HEENT Problems: Yes Hx Cataracts: Yes (Seferino IOL) - RENAL Hx Chronic Kidney Disease: Yes - ENDOCRINE/METABOLIC Hx Diabetes Mellitus Type 2: Yes - HEMATOLOGICAL/ONCOLOGICAL Hx Anemia: Yes - INTEGUMENTARY Hx Dermatological Problems: Yes Other/Comment: Bilateral lower legs dry skin - MUSCULOSKELETAL/RHEUMATOLOGICAL Hx Falls: No - GASTROINTESTINAL Hx Gastrointestinal Disorders: Yes Other/Comment: Hx colon cancer - GENITOURINARY/GYNECOLOGICAL Hx Genitourinary Disorders: No - PSYCHIATRIC Hx Substance Use: No - SURGICAL HISTORY Hx Cataract Extraction: Yes (LEFT) - ANESTHESIA Hx Anesthesia: Yes Hx Anesthesia Reactions: No Hx Malignant Hyperthermia: No Meds Allergies/Adverse Reactions: Allergies Allergy/AdvReac Type Severity Reaction Status Date / Time Penicillins Allergy Intermediate RASH Verified 06/05/16 11:49 - Medications Medications: Current Medications Calcitriol (Rocaltrol) 0.25 mcg PO MWF [facility] Ferrous Sulfate (Feosol) 325 mg PO BID [facility] Last Admin: 02/26/17 10:12 Dose: 325 mg Heparin Sodium (Porcine) (Heparin) 5,000 units SC Q8 [facility] Last Admin: 02/26/17 06:53 Dose: 5,000 units Insulin Aspart (Novolog) 0 unit SC ACHS [facility] PRN Reason: Protocol Last Admin: 02/26/17 08:40 Dose: 2 unit Labetalol HCl (Trandate) 200 mg PO BID [facility] Last Admin: 02/26/17 10:13 Dose: 200 mg Lisinopril (Zestril) 10 mg PO DAILY [facility] Megestrol Acetate (Megace) 40 mg PO DAILY [facility] Last Admin: 02/26/17 10:13 Dose: 40 mg Pantoprazole Sodium (Protonix Ec Tab) 20 mg PO DAILY [facility] Last Admin: 02/26/17 10:13 Dose: 20 mg Pneumococcal Polyvalent Vaccine (Pneumovax 23 Vaccine) 0.5 ml IM .ONCE ONE Stop: 02/28/17 10:01 Physical Exam - Constitutional Appears: No Acute Distress Additional comments: Pt is alert but slow in answering questions No dyspnea noted - Head Exam Head Exam: ATRAUMATIC, NORMOCEPHALIC - Eye Exam Additional comments: Sclerae anicteric - ENT Exam ENT Exam: Mucous Membranes Dry - Respiratory Exam Additional comments: Clear. Poor inspiratory effort - Cardiovascular Exam Cardiovascular Exam: REGULAR RHYTHM Additional comments: No rub - GI/Abdominal Exam GI & Abdominal Exam: Soft Additional comments: Abd. nontender - Extremities Exam Additional comments: No pedal edema. Good bruit over Lt arm AV shunt. Lt radial palp & hand is warm Results - Vital Signs Recent Vital Signs: Last Vital Signs Temp 98.3 F 02/26/17 07:45 Pulse 83 02/26/17 07:45 Resp 18 02/26/17 07:45 BP 162/64 H 02/26/17 07:45 Pulse Ox 95 02/26/17 07:45 - Labs Result Diagrams: 02/26/17 06:25 02/26/17 07:12 Labs: Laboratory Results - last 24 hr 02/25/17 02/26/17 02/26/17 20:31 02:10 06:25 WBC 6.5 RBC 3.35 L Hgb 9.5 L Hct 29.1 L MCV 86.9 MCH 28.3 MCHC 32.6 L RDW 16.0 H Plt Count 199 MPV 8.3 Neut % (Auto) 75.4 H Lymph % (Auto) 16.9 L [place] % (Auto) 4.8 Eos % (Auto) 1.9 Baso % (Auto) 1.0 Neut # 4.9 Lymph # 1.1 [place] # 0.3 Eos # 0.1 Baso # 0.1 Sodium Potassium Chloride Carbon Dioxide Anion Gap BUN Creatinine Est GFR ( Amer) Est GFR (Non-Af Amer) POC Glucose (mg/dL) 184 H 197 H Random Glucose Hemoglobin A1c Calcium Total Bilirubin AST ALT Alkaline Phosphatase Total Protein Albumin Globulin Albumin/Globulin Ratio 02/26/17 02/26/17 02/26/17 07:12 07:12 07:36 WBC RBC Hgb Hct MCV MCH MCHC RDW Plt Count MPV Neut % (Auto) Lymph % (Auto) [place] % (Auto) Eos % (Auto) Baso % (Auto) Neut # Lymph # [place] # Eos # Baso # Sodium 141 Potassium 4.2 Chloride 105 Carbon Dioxide 23 Anion Gap 18 BUN 50 H Creatinine 3.7 H Est GFR ( Amer) 14 Est GFR (Non-Af Amer) 12 POC Glucose (mg/dL) 153 H Random Glucose 137 H Hemoglobin A1c 7.6 H Calcium 9.5 Total Bilirubin 0.8 AST 20 ALT 22 Alkaline Phosphatase 84 Total Protein 6.7 Albumin 3.4 L D Globulin 3.2 Albumin/Globulin Ratio 1.1 Assessment & Plan - Assessment and Plan (Free Text) Assessment: Stage 1V kidney disease. Labs are stable HTN uncontrolled CHF Aortic insufficiency, ? mitral valve vegetation DM11 Dementia Plan: Suggest to maintain on Lasix Will order 24 hr urine for Cr Clearance PTH Will need dialysis if no satisfactory response to Lasix
--- NOTE | 2017-02-26 16:35 | CP.PCM.CON ---
History of Present Illness - History of Present Illness History of Present Illness: Consulation for evaluation of thickened mitral valve, concern for vegetation HPI : 76 year old -[place] female with past medical history significant for hypertension and diabetes mellitus chronic kidney disease prior TIA asthma arthritis presented to the ED with altered mental status. Patient apparently was found by her son who stated that she was confused patient's son called her a sister for EMS. Patient on presentation by EMS was noted to be hypoglycemic with a blood glucose of 42 for which she was given an amp of D50 in the field. At the time of my evaluation she denies having any complaints denies having any chest pain shortness of breath palpitations fevers chills. As per review of records family members mentioned that she was without any caregivers for a week and has been feeling very lethargic and tired. I was concentrated for evaluation of mitral regurgitation and concerns for mitral valve endocarditis. She had an echocardiogram done on the last hospital that hospitalization which raised concerns for thickened mitral valve leaflets. On examination she is noted to have a tricuspid regurgitation murmur with a loud P2 component of the second heart sound. Past surgical history significant for left arm AV fistula and is stomach mass removal. Family history significant for diabetes mellitus. Patient's home medications: Aspirin 81 mg by mouth daily, calcitriol 0.25 g on Wednesdays and Fridays, iron sulfate 325 mg by mouth twice a day, Lasix 40 mg by mouth daily, insulin labetalol 200 mg by mouth twice a day, lisinopril 5 mg by mouth daily, Megace and Protonix. Allergies allergic to penicillin. 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 Medications given by EMS amp of D50 labetalol 100 mg azithromycin and ceftriaxone. Review of Systems - Review of Systems Systems not reviewed;Unavailable: Altered Mental Status All systems: reviewed and no additional remarkable complaints except - Constitutional Constitutional: As Per HPI, Fatigue, Lethargy, Malaise - EENT Eyes: As Per HPI Ears: As Per HPI, Decreased Hearing Nose/Mouth/Throat: As Per HPI - Breasts Breasts: As Per HPI - Cardiovascular Cardiovascular: As Per HPI - Respiratory Respiratory: As Per HPI - Gastrointestinal Gastrointestinal: As Per HPI - Genitourinary Genitourinary: As Per HPI - Reproductive: Female Reproductive:Female: As Per HPI - Menstruation Menstruation: As Per HPI - Musculoskeletal Musculoskeletal: As Per HPI - Integumentary Integumentary: As Per HPI - Neurological Neurological: As Per HPI - Psychiatric Psychiatric: As Per HPI - Endocrine Endocrine: As Per HPI - Hematologic/Lymphatic Hematologic: As Per HPI Past Patient History - Infectious Disease Hx of Infectious Diseases: None - Tetanus Immunizations Tetanus Immunization: Unknown - Past Medical History & Family History Past Medical History?: Yes - Past Social History Smoking Status: Former Smoker - CARDIAC Hx Hypercholesterolemia: Yes Hx Hypertension: Yes Hx Peripheral Edema: Yes - PULMONARY Hx Asthma: Yes (Dx 15 yrs ago,does not use home o2 anymore) Hx Pneumonia: Yes (x2) - NEUROLOGICAL Hx Transient Ischemic Attacks (TIA): Yes (x3 about 20 yrs ago, 10 yrs ago, 7 yrs ago) - HEENT Hx HEENT Problems: Yes Hx Cataracts: Yes (Seferino IOL) - RENAL Hx Chronic Kidney Disease: Yes - ENDOCRINE/METABOLIC Hx Diabetes Mellitus Type 2: Yes - HEMATOLOGICAL/ONCOLOGICAL Hx Anemia: Yes - INTEGUMENTARY Hx Dermatological Problems: Yes Other/Comment: Bilateral lower legs dry skin - MUSCULOSKELETAL/RHEUMATOLOGICAL Hx Falls: No - GASTROINTESTINAL Hx Gastrointestinal Disorders: Yes Other/Comment: Hx colon cancer - GENITOURINARY/GYNECOLOGICAL Hx Genitourinary Disorders: No - PSYCHIATRIC Hx Substance Use: No - SURGICAL HISTORY Hx Cataract Extraction: Yes (LEFT) - ANESTHESIA Hx Anesthesia: Yes Hx Anesthesia Reactions: No Hx Malignant Hyperthermia: No Meds Allergies/Adverse Reactions: Allergies Allergy/AdvReac Type Severity Reaction Status Date / Time Penicillins Allergy Intermediate RASH Verified 06/05/16 11:49 - Medications Medications: Current Medications Calcitriol (Rocaltrol) 0.25 mcg PO MWF [facility] Ferrous Sulfate (Feosol) 325 mg PO BID [facility] Last Admin: 02/26/17 10:12 Dose: 325 mg Heparin Sodium (Porcine) (Heparin) 5,000 units SC Q8 [facility] Last Admin: 02/26/17 14:35 Dose: 5,000 units Insulin Aspart (Novolog) 0 unit SC ACHS [facility] PRN Reason: Protocol Last Admin: 02/26/17 12:30 Dose: 3 unit Labetalol HCl (Trandate) 200 mg PO BID [facility] Last Admin: 02/26/17 10:13 Dose: 200 mg Lisinopril (Zestril) 10 mg PO DAILY [facility] Megestrol Acetate (Megace) 40 mg PO DAILY [facility] Last Admin: 02/26/17 10:13 Dose: 40 mg Pantoprazole Sodium (Protonix Ec Tab) 20 mg PO DAILY [facility] Last Admin: 02/26/17 10:13 Dose: 20 mg Pneumococcal Polyvalent Vaccine (Pneumovax 23 Vaccine) 0.5 ml IM .ONCE ONE Stop: 02/28/17 10:01 Physical Exam - Constitutional Appears: Well - Head Exam Head Exam: ATRAUMATIC, NORMAL INSPECTION, NORMOCEPHALIC - Eye Exam Eye Exam: EOMI, Normal appearance, PERRL Pupil Exam: NORMAL ACCOMODATION, PERRL - ENT Exam ENT Exam: Mucous Membranes Moist, Normal Exam - Neck Exam Neck exam: Positive for: Normal Inspection - Respiratory Exam Respiratory Exam: Clear to Auscultation Bilateral, NORMAL BREATHING PATTERN - Cardiovascular Exam Cardiovascular Exam: REGULAR RHYTHM, RRR, +S1, +S2, Systolic Murmur - GI/Abdominal Exam GI & Abdominal Exam: Normal Bowel Sounds, Soft. absent: Tenderness - Extremities Exam Extremities exam: Positive for: normal inspection - Back Exam Back exam: NORMAL INSPECTION - Neurological Exam Neurological exam: Alert, CN II-XII Intact, Oriented x3, Reflexes Normal - Psychiatric Exam Psychiatric exam: Normal Affect, Normal Mood - Skin Skin Exam: Dry, Intact, Normal Color, Warm Results - Vital Signs Recent Vital Signs: Last Vital Signs Temp 98.3 F 02/26/17 15:14 Pulse 85 02/26/17 15:14 Resp 20 02/26/17 15:14 BP 161/68 H 02/26/17 15:14 Pulse Ox 94 L 02/26/17 15:14 - Labs Result Diagrams: 02/27/17 07:52 02/27/17 21:29 Labs: Laboratory Results - last 24 hr 02/25/17 02/26/17 02/26/17 20:31 02:10 06:25 WBC 6.5 RBC 3.35 L Hgb 9.5 L Hct 29.1 L MCV 86.9 MCH 28.3 MCHC 32.6 L RDW 16.0 H Plt Count 199 MPV 8.3 Neut % (Auto) 75.4 H Lymph % (Auto) 16.9 L [place] % (Auto) 4.8 Eos % (Auto) 1.9 Baso % (Auto) 1.0 Neut # 4.9 Lymph # 1.1 [place] # 0.3 Eos # 0.1 Baso # 0.1 Sodium Potassium Chloride Carbon Dioxide Anion Gap BUN Creatinine Est GFR ( Amer) Est GFR (Non-Af Amer) POC Glucose (mg/dL) 184 H 197 H Random Glucose Hemoglobin A1c Calcium Phosphorus Total Bilirubin AST ALT Alkaline Phosphatase Total Protein Albumin Globulin Albumin/Globulin Ratio 02/26/17 02/26/17 02/26/17 07:12 07:12 07:36 WBC RBC Hgb Hct MCV MCH MCHC RDW Plt Count MPV Neut % (Auto) Lymph % (Auto) [place] % (Auto) Eos % (Auto) Baso % (Auto) Neut # Lymph # [place] # Eos # Baso # Sodium 141 Potassium 4.2 Chloride 105 Carbon Dioxide 23 Anion Gap 18 BUN 50 H Creatinine 3.7 H Est GFR ( Amer) 14 Est GFR (Non-Af Amer) 12 POC Glucose (mg/dL) 153 H Random Glucose 137 H Hemoglobin A1c 7.6 H Calcium 9.5 Phosphorus Total Bilirubin 0.8 AST 20 ALT 22 Alkaline Phosphatase 84 Total Protein 6.7 Albumin 3.4 L D Globulin 3.2 Albumin/Globulin Ratio 1.1 02/26/17 02/26/17 11:06 13:47 WBC RBC Hgb Hct MCV MCH MCHC RDW Plt Count MPV Neut % (Auto) Lymph % (Auto) [place] % (Auto) Eos % (Auto) Baso % (Auto) Neut # Lymph # [place] # Eos # Baso # Sodium Potassium Chloride Carbon Dioxide Anion Gap BUN Creatinine Est GFR ( Amer) Est GFR (Non-Af Amer) POC Glucose (mg/dL) 225 H Random Glucose Hemoglobin A1c Calcium Phosphorus 3.9 Total Bilirubin AST ALT Alkaline Phosphatase Total Protein Albumin Globulin Albumin/Globulin Ratio Assessment & Plan (1) Cardiac murmur due to mitral valve disorder Assessment and Plan: echo reviewed from last admission - mitral valve shows normal structure with MAC also has moderate TR 2' to pulmonary HTN no evidence clinically to suggest endocarditis Status: Acute (2) Tricuspid regurgitation Assessment and Plan: 2' to pulmonary HTN Status: Acute (3) Pulmonary HTN Assessment and Plan: may benefit from RHCx Status: Acute (4) CHF (congestive heart failure) Assessment and Plan: diastolic GDMT for HTN lasix lisinopril , change labetalol to coreg Status: Acute (5) Weakness Status: Acute (6) Chronic kidney disease (CKD) Status: Chronic (7) Hypertension Status: Chronic
[2017-02-27 08:16] LABS: BASO # 0.1 K/uL (0.0-0.2); EOS # 0.2 K/uL (0.0-0.7); EOS % 2.4 % (0.0-4.0); HEMATOCRIT 27.6 % (34.0-47.0); LYMPH # 1.4 K/uL (1.0-4.3); LYMPH % 20.7 % (20.0-40.0); MEAN CELL VOLUME 86.5 fL (81.0-99.0); MEAN CORPUSCULAR HEMOGLOBIN 28.6 pg (27.0-31.0); MEAN CORPUSCULAR HGB CONC 33.1 g/dL (33.0-37.0); MEAN PLATELET VOLUME 8.2 fL (7.2-11.7); MONO # 0.3 K/uL (0.0-0.8); MONO % 4.9 % (0.0-10.0); POTASSIUM 4.5 mmol/L (3.6-5.2); WHITE BLOOD COUNT 6.6 K/uL (4.8-10.8)
[2017-02-27 08:18] LABS: BILIRUBIN,TOTAL 0.6 mg/dL (0.2-1.3); PHOSPHOROUS 3.7 mg/dL (2.5-4.5); TOTAL PROTEIN 6.5 g/dL (6.3-8.3)
[2017-02-27 08:19] LABS: CALCIUM 9.4 mg/dl (8.6-10.4); MAGNESIUM 1.9 mg/dL (1.6-2.3)
[2017-02-27] MEDS: (Novolog) Insulin Aspart, Recombinant 100 u/ml 10 ml vial SC SCH ×4 (08:30→21:55)
[2017-02-27] MEDS: Pantoprazole 20 mg EC Tab PO SCH (09:25)
[2017-02-27] MEDS ORDERED: (Lantus) Insulin Glargine, Recombinant SC SCH (10:00)
[2017-02-27] MEDS ORDERED: Labetalol Hydrochloride 300 mg Tab PO SCH (10:00)
--- NOTE | 2017-02-27 11:18 | CP.PCM.PN ---
<Latonya Smith - Last Filed: 02/27/17 17:36> Subjective - Date & Time of Evaluation Date of Evaluation: 02/27/17 Time of Evaluation: 07:30 - Subjective Subjective: Medicine Progress Note: Patient was seen and examined at bedside in the AM. Per nurse there were no acute events overnight. Per medical student the patient was attempted to get out of bed. The medical student states she appeared very unsteady and needed assistance walking to her chair. Per patient she denies using a walker or cane at home. Patient is noted to be fall risk and was told again not to get out of bed without assistance. Patient denies shortness of breath, palpitations, chest pain, dysuria, constipation, or diarrhea. Patient states she would like her toe nails to be clipped because they are bothering her. Patient denies any other complaints at the time. Objective - Vital Signs/Intake and Output Vital Signs (last 24 hours): Temp Pulse Resp BP Pulse Ox 98.4 F 85 18 191/73 H 95 02/27/17 07:45 02/27/17 07:50 02/27/17 07:45 02/27/17 07:45 02/27/17 07:45 Intake and Output: 02/27/17 02/27/17 06:59 18:59 Output Total 500 Balance -500 - Medications Medications: Current Medications Calcitriol (Rocaltrol) 0.25 mcg PO MWF [facility] Last Admin: 02/27/17 09:24 Dose: 0.25 mcg Ferrous Sulfate (Feosol) 325 mg PO BID [facility] Last Admin: 02/27/17 09:24 Dose: 325 mg Heparin Sodium (Porcine) (Heparin) 5,000 units SC Q8 [facility] Last Admin: 02/27/17 05:16 Dose: 5,000 units Insulin Aspart (Novolog) 0 unit SC ACHS [facility] PRN Reason: Protocol Last Admin: 02/27/17 08:30 Dose: 2 unit Insulin Glargine (Lantus) 10 unit SC DAILY [facility] Labetalol HCl (Normodyne) 300 mg PO BID [facility] Lisinopril (Zestril) 10 mg PO DAILY [facility] Last Admin: 02/27/17 09:24 Dose: 10 mg Megestrol Acetate (Megace) 40 mg PO DAILY [facility] Last Admin: 02/27/17 09:25 Dose: 40 mg Pantoprazole Sodium (Protonix Ec Tab) 20 mg PO DAILY [facility] Last Admin: 02/27/17 09:25 Dose: 20 mg Pneumococcal Polyvalent Vaccine (Pneumovax 23 Vaccine) 0.5 ml IM .ONCE ONE Stop: 02/28/17 10:01 - Labs Labs: 02/27/17 07:52 02/27/17 07:52 - Constitutional Appears: Well, No Acute Distress - Head Exam Head Exam: ATRAUMATIC, NORMAL INSPECTION, NORMOCEPHALIC - Eye Exam Eye Exam: EOMI, Normal appearance, PERRL Pupil Exam: NORMAL ACCOMODATION - ENT Exam ENT Exam: Mucous Membranes Moist - Respiratory Exam Respiratory Exam: Clear to Ausculation Bilateral, NORMAL BREATHING PATTERN. absent: Rales, Rhonchi, Wheezes, Stridor - Cardiovascular Exam Cardiovascular Exam: REGULAR RHYTHM, RRR, +S1, +S2 - GI/Abdominal Exam GI & Abdominal Exam: Soft, Normal Bowel Sounds. absent: Tenderness - Extremities Exam Extremities Exam: Normal Inspection. absent: Pedal Edema, Tenderness Additional comments: Long toe nails bilaterally. Dry feet bilaterally. - Neurological Exam Neurological Exam: Alert, Awake, Oriented x3 - Psychiatric Exam Psychiatric exam: Normal Affect, Normal Mood - Skin Skin Exam: Normal Color, Warm Assessment and Plan - Assessment and Plan (Free Text) Plan: 1.) Altered mental status - possibly secondary to diabetic hypoglycemic episode * Dextrose 50mg IVP given * Blood glucose stable * Supplement diet ( due to decrease PO intake) UA: Negative Urine culture: negative f/u blood culture CT head without contrast: No acute findings seen within the brain. Evidence of chronic ischemic changes Chest X-ray: The central pulmonary vasculature is slightly increased though improved from prior study ; rule out chronic compensated pulmonary edema/CHF. Suspect minor right basilar atelectasis 2.) Aortic Stenosis - possible CHF Chest X-ray: The central pulmonary vasculature is slightly increased though improved from prior study ; rule out chronic compensated pulmonary edema/CHF. Suspect minor right basilar atelectasis Previous ECHO 10/22/16: EF 63%, aortic valve is severely thickened; mild aortic regurgitation; Mitral valve is severely thickened, a vegetation cannot be ruled out Cardiology Consult: Dr. Jim --> help appreciated 3.) History of Diabetes Hemoglobin A1c (10/21/16): 7.0 * repeat HgbA1c (02/26): 7.6 ISS ( Moderate) Insulin Glargine 10units daily Accuchecks Encourage intake Monitor 4.) History of Hypertension Labetatol 300mg PO BID Increased Lisinopril 5mg to 10mg PO daily on 02/26 Monitor BP 5.) History of chronic kidney disease - Stage V Nephrology Consult---> Dr. Schuyler Martinez --> Help appreciated - f/u 24 hour urine for Cr Clearance PTH - per Dr. Martinez - resumed Lasix 40mg PO daily BUN/CR: * 58/4.2 GFR: 14 - Left AV fistula in place for possible future dialysis Continue home medication: * Calcitriol 0.25mcg PO MWF * Feosol 325mg PO BID 6.) History of Anemia H/H stable Continue home medication: * Feosol 325mg PO BID 7.) Bilateral Nail Care * Podiatry Consult: Dr. Mcgarry --> help appreciated 8.) Prophylactic measure Scds Heparin 5000 units SC Q8H Protonix 20mg PO daily Patient is also currently taking 40mg of Megestrol from home. Per her pharmacy states she did not fill that medication at her current pharmacy ([facility] [phone]). Spoke with PMD Dr. Michele Saldaña and patient was never prescribed Megestrol. Therefore Megestrol 40mg once daily was discontinued. Case discussed with Dr. Live Smith PGY-1 <Shahbaz Mancini - Last Filed: 02/28/17 16:53> Objective - Vital Signs/Intake and Output Vital Signs (last 24 hours): Temp Pulse Resp BP Pulse Ox 97.6 F 76 20 126/60 96 02/28/17 15:32 02/28/17 15:32 02/28/17 15:32 02/28/17 15:32 02/28/17 15:32 Intake and Output: 02/28/17 02/28/17 06:59 18:59 Intake Total 150 250 Balance 150 250 - Medications Medications: Current Medications Amlodipine Besylate (Norvasc) 10 mg PO DAILY [facility] Last Admin: 02/28/17 10:08 Dose: 10 mg Calcitriol (Rocaltrol) 0.25 mcg PO MWF [facility] Last Admin: 02/27/17 09:24 Dose: 0.25 mcg Epoetin Alan (Procrit) 10,000 unit IV TTS [facility] Ferrous Sulfate (Feosol) 325 mg PO BID [facility] Last Admin: 02/28/17 10:05 Dose: 325 mg Furosemide (Lasix) 40 mg PO DAILY [facility] Last Admin: 02/28/17 10:06 Dose: 40 mg Heparin Sodium (Porcine) (Heparin) 5,000 units SC Q8 [facility] Last Admin: 02/28/17 13:42 Dose: 5,000 units Insulin Aspart (Novolog) 0 unit SC ACHS [facility] PRN Reason: Protocol Last Admin: 02/28/17 12:30 Dose: 2 unit Insulin Aspart (Novolog) 3 unit SC TIDAC [facility] Last Admin: 02/28/17 12:31 Dose: 3 unit Insulin Glargine (Lantus) 10 unit SC DAILY [facility] Last Admin: 02/28/17 10:09 Dose: 10 units Labetalol HCl (Normodyne) 300 mg PO BID [facility] Last Admin: 02/28/17 10:05 Dose: 300 mg Lisinopril (Zestril) 10 mg PO DAILY [facility] Last Admin: 02/28/17 10:06 Dose: 10 mg Pantoprazole Sodium (Protonix Ec Tab) 20 mg PO DAILY [facility] Last Admin: 02/28/17 10:05 Dose: 20 mg - Labs Labs: 02/28/17 06:10 02/28/17 06:10 Attending/Attestation - Attestation I have personally seen and examined this patient.: Yes I have fully participated in the care of the patient.: Yes I have reviewed all pertinent clinical information, including history, physical exam and plan: Yes Notes (Text): 02/28/17 16:52 Patient was seen and examined at bedside with the resident Patient is undergoing renal workup for possible hemodialysis Cardiology evaluation seen and appreciated. No further intervention suggested I discussed the plan of care with the resident and agree with the assessment and plan documented.
--- NOTE | 2017-02-27 11:44 | CARD ---
APPROVED REPORT EKG Measurement Heart [id number] <Conclusion> Normal sinus rhythm Normal ECG
--- NOTE | 2017-02-27 12:14 | CP.PCM.CON ---
<Nimco Linares - Last Filed: 02/27/17 12:27> History of Present Illness - History of Present Illness History of Present Illness: Consult note for Dr. Mcgarry 76 year old female with PMHx including HTN, DM, asthma, arthritis, CKD, TIA was seen at bedside for complaint of painful toenails. Patient states that her toes also hurt because they are overlapping. She states that the last time her toenails were cut was a few months ago when she was in the hospital. She denies any n/v/f/c/sob/cp. Past Patient History - Infectious Disease Hx of Infectious Diseases: None - Tetanus Immunizations Tetanus Immunization: Unknown - Past Medical History & Family History Past Medical History?: Yes - Past Social History Smoking Status: Former Smoker - CARDIAC Hx Hypercholesterolemia: Yes Hx Hypertension: Yes Hx Peripheral Edema: Yes - PULMONARY Hx Asthma: Yes (Dx 15 yrs ago,does not use home o2 anymore) Hx Pneumonia: Yes (x2) - NEUROLOGICAL Hx Transient Ischemic Attacks (TIA): Yes (x3 about 20 yrs ago, 10 yrs ago, 7 yrs ago) - HEENT Hx HEENT Problems: Yes Hx Cataracts: Yes (Seferino IOL) - RENAL Hx Chronic Kidney Disease: Yes - ENDOCRINE/METABOLIC Hx Diabetes Mellitus Type 2: Yes - HEMATOLOGICAL/ONCOLOGICAL Hx Anemia: Yes - INTEGUMENTARY Hx Dermatological Problems: Yes Other/Comment: Bilateral lower legs dry skin - MUSCULOSKELETAL/RHEUMATOLOGICAL Hx Falls: No - GASTROINTESTINAL Hx Gastrointestinal Disorders: Yes Other/Comment: Hx colon cancer - GENITOURINARY/GYNECOLOGICAL Hx Genitourinary Disorders: No - PSYCHIATRIC Hx Substance Use: No - SURGICAL HISTORY Hx Cataract Extraction: Yes (LEFT) - ANESTHESIA Hx Anesthesia: Yes Hx Anesthesia Reactions: No Hx Malignant Hyperthermia: No Meds Allergies/Adverse Reactions: Allergies Allergy/AdvReac Type Severity Reaction Status Date / Time Penicillins Allergy Intermediate RASH Verified 06/05/16 11:49 - Medications Medications: Current Medications Calcitriol (Rocaltrol) 0.25 mcg PO MWF [facility] Last Admin: 02/27/17 09:24 Dose: 0.25 mcg Ferrous Sulfate (Feosol) 325 mg PO BID [facility] Last Admin: 02/27/17 09:24 Dose: 325 mg Heparin Sodium (Porcine) (Heparin) 5,000 units SC Q8 [facility] Last Admin: 02/27/17 05:16 Dose: 5,000 units Insulin Aspart (Novolog) 0 unit SC ACHS [facility] PRN Reason: Protocol Last Admin: 02/27/17 08:30 Dose: 2 unit Insulin Glargine (Lantus) 10 unit SC DAILY [facility] Labetalol HCl (Normodyne) 300 mg PO BID [facility] Lisinopril (Zestril) 10 mg PO DAILY [facility] Last Admin: 02/27/17 09:24 Dose: 10 mg Pantoprazole Sodium (Protonix Ec Tab) 20 mg PO DAILY [facility] Last Admin: 02/27/17 09:25 Dose: 20 mg Pneumococcal Polyvalent Vaccine (Pneumovax 23 Vaccine) 0.5 ml IM .ONCE ONE Stop: 02/28/17 10:01 Physical Exam - Constitutional Appears: Non-toxic, No Acute Distress - Extremities Exam Additional comments: Lower extremity focused exam: Vasc:DP and PT pulses non-palpable b/l. CFT > 3 seconds to all digits. Skin temperature is warm to cool from proximal to distal b/l. Neuro: Gross sensation intact b/l Derm: Nails are thickened, elongated, discolored, incurvated 1-5 b/l. Webspaces are clean, dry, intact 1-4 b/l. No open lesions. Skin is diffusely xerotic. Ortho: Contracted digits 2-5 b/l. Digit 1 is overriding digit 2 b/l. Pain on palpation to nails 1-5 b/l - Neurological Exam Neurological exam: Alert, Oriented x3 - Psychiatric Exam Psychiatric exam: Normal Affect, Normal Mood Results - Vital Signs Recent Vital Signs: Last Vital Signs Temp 98.4 F 02/27/17 07:45 Pulse 85 02/27/17 07:50 Resp 18 02/27/17 07:45 BP 191/73 H 02/27/17 07:45 Pulse Ox 95 02/27/17 07:45 - Labs Result Diagrams: 02/27/17 07:52 02/27/17 07:52 Labs: Laboratory Results - last 24 hr 02/26/17 02/26/17 02/26/17 13:47 16:50 21:18 WBC RBC Hgb Hct MCV MCH MCHC RDW Plt Count MPV Neut % (Auto) Lymph % (Auto) Woodruff % (Auto) Eos % (Auto) Baso % (Auto) Neut # Lymph # Woodruff # Eos # Baso # Sodium Potassium Chloride Carbon Dioxide Anion Gap BUN Creatinine Est GFR ( Amer) Est GFR (Non-Af Amer) POC Glucose (mg/dL) 223 H 192 H Random Glucose Calcium Phosphorus 3.9 Magnesium Total Bilirubin AST ALT Alkaline Phosphatase Total Protein Albumin Globulin Albumin/Globulin Ratio 02/27/17 02/27/17 02/27/17 06:25 07:52 07:52 WBC 6.6 RBC 3.19 L Hgb 9.1 L Hct 27.6 L MCV 86.5 MCH 28.6 MCHC 33.1 RDW 16.0 H Plt Count 204 MPV 8.2 Neut % (Auto) 71.0 Lymph % (Auto) 20.7 Woodruff % (Auto) 4.9 Eos % (Auto) 2.4 Baso % (Auto) 1.0 Neut # 4.7 Lymph # 1.4 Woodruff # 0.3 Eos # 0.2 Baso # 0.1 Sodium 141 Potassium 4.5 Chloride 106 Carbon Dioxide 20 L Anion Gap 20 BUN 58 H Creatinine 4.2 H Est GFR ( Amer) 12 Est GFR (Non-Af Amer) 10 POC Glucose (mg/dL) 182 H Random Glucose 178 H Calcium 9.4 Phosphorus 3.7 Magnesium 1.9 Total Bilirubin 0.6 AST 19 ALT 24 Alkaline Phosphatase 77 Total Protein 6.5 Albumin 3.2 L Globulin 3.3 Albumin/Globulin Ratio 1.0 02/27/17 11:57 WBC RBC Hgb Hct MCV MCH MCHC RDW Plt Count MPV Neut % (Auto) Lymph % (Auto) Woodruff % (Auto) Eos % (Auto) Baso % (Auto) Neut # Lymph # Woodruff # Eos # Baso # Sodium Potassium Chloride Carbon Dioxide Anion Gap BUN Creatinine Est GFR ( Amer) Est GFR (Non-Af Amer) POC Glucose (mg/dL) 240 H Random Glucose Calcium Phosphorus Magnesium Total Bilirubin AST ALT Alkaline Phosphatase Total Protein Albumin Globulin Albumin/Globulin Ratio Assessment & Plan - Assessment and Plan (Free Text) Assessment: 76 year old female with thickened, elongated, painful toenails 1-10 Plan: patient examined and evaluated discussed in detail with attending, Dr. Mcgarry labs, chart, vitals reviewed nails 1-5 b/l were debrided in thickness and lenght without incident discussed padding to help patients contracted digit pain patient to f/u with Dr. Mcgarry as outpatient thank you for allowing us to participate in the care for your patient please re-consult as necessary <Alexander Mcgarry - Last Filed: 02/27/17 18:48> Meds - Medications Medications: Current Medications Calcitriol (Rocaltrol) 0.25 mcg PO MWF [facility] Last Admin: 02/27/17 09:24 Dose: 0.25 mcg Ferrous Sulfate (Feosol) 325 mg PO BID [facility] Last Admin: 02/27/17 18:44 Dose: 325 mg Furosemide (Lasix) 40 mg PO DAILY [facility] Heparin Sodium (Porcine) (Heparin) 5,000 units SC Q8 [facility] Last Admin: 02/27/17 14:57 Dose: 5,000 units Insulin Aspart (Novolog) 0 unit SC ACHS [facility] PRN Reason: Protocol Last Admin: 02/27/17 18:45 Dose: 4 unit Insulin Glargine (Lantus) 10 unit SC DAILY [facility] Labetalol HCl (Normodyne) 300 mg PO BID [facility] Last Admin: 02/27/17 18:45 Dose: 300 mg Lisinopril (Zestril) 10 mg PO DAILY [facility] Last Admin: 02/27/17 09:24 Dose: 10 mg Pantoprazole Sodium (Protonix Ec Tab) 20 mg PO DAILY [facility] Last Admin: 02/27/17 09:25 Dose: 20 mg Pneumococcal Polyvalent Vaccine (Pneumovax 23 Vaccine) 0.5 ml IM .ONCE ONE Stop: 02/28/17 10:01 Results - Vital Signs Recent Vital Signs: Last Vital Signs Temp 97.4 F L 02/27/17 15:13 Pulse 80 02/27/17 15:13 Resp 20 02/27/17 15:13 BP 148/65 02/27/17 15:13 Pulse Ox 97 02/27/17 15:13 - Labs Result Diagrams: 02/27/17 07:52 02/27/17 07:52 Labs: Laboratory Results - last 24 hr 02/26/17 02/26/17 02/27/17 13:47 21:18 06:25 WBC RBC Hgb Hct MCV MCH MCHC RDW Plt Count MPV Neut % (Auto) Lymph % (Auto) Woodruff % (Auto) Eos % (Auto) Baso % (Auto) Neut # Lymph # Woodruff # Eos # Baso # Sodium Potassium Chloride Carbon Dioxide Anion Gap BUN Creatinine Est GFR ( Amer) Est GFR (Non-Af Amer) POC Glucose (mg/dL) 192 H 182 H Random Glucose Calcium Phosphorus Magnesium Total Bilirubin AST ALT Alkaline Phosphatase Total Protein Albumin Globulin Albumin/Globulin Ratio PTH Intact Whole Molec 297 H 02/27/17 02/27/17 02/27/17 07:52 07:52 11:57 WBC 6.6 RBC 3.19 L Hgb 9.1 L Hct 27.6 L MCV 86.5 MCH 28.6 MCHC 33.1 RDW 16.0 H Plt Count 204 MPV 8.2 Neut % (Auto) 71.0 Lymph % (Auto) 20.7 Woodruff % (Auto) 4.9 Eos % (Auto) 2.4 Baso % (Auto) 1.0 Neut # 4.7 Lymph # 1.4 Woodruff # 0.3 Eos # 0.2 Baso # 0.1 Sodium 141 Potassium 4.5 Chloride 106 Carbon Dioxide 20 L Anion Gap 20 BUN 58 H Creatinine 4.2 H Est GFR ( Amer) 12 Est GFR (Non-Af Amer) 10 POC Glucose (mg/dL) 240 H Random Glucose 178 H Calcium 9.4 Phosphorus 3.7 Magnesium 1.9 Total Bilirubin 0.6 AST 19 ALT 24 Alkaline Phosphatase 77 Total Protein 6.5 Albumin 3.2 L Globulin 3.3 Albumin/Globulin Ratio 1.0 PTH Intact Whole Molec 02/27/17 16:44 WBC RBC Hgb Hct MCV MCH MCHC RDW Plt Count MPV Neut % (Auto) Lymph % (Auto) Woodruff % (Auto) Eos % (Auto) Baso % (Auto) Neut # Lymph # Woodruff # Eos # Baso # Sodium Potassium Chloride Carbon Dioxide Anion Gap BUN Creatinine Est GFR ( Amer) Est GFR (Non-Af Amer) POC Glucose (mg/dL) 268 H Random Glucose Calcium Phosphorus Magnesium Total Bilirubin AST ALT Alkaline Phosphatase Total Protein Albumin Globulin Albumin/Globulin Ratio PTH Intact Whole Molec Assessment & Plan - Assessment and Plan (Free Text) Assessment: Pt seen and evaluated at bedside .agree with above evaluation and treatment .Dr Alexander Mcgarry.
--- NOTE | 2017-02-27 14:40 | CP.PCM.PN ---
Subjective - Date & Time of Evaluation Date of Evaluation: 02/27/17 Time of Evaluation: 02:00 - Subjective Subjective: Arabella benitez No c/o SOB Objective - Vital Signs/Intake and Output Vital Signs (last 24 hours): Temp Pulse Resp BP Pulse Ox 98.4 F 85 18 191/73 H 95 02/27/17 07:45 02/27/17 07:50 02/27/17 07:45 02/27/17 07:45 02/27/17 07:45 Intake and Output: 02/27/17 02/27/17 06:59 18:59 Output Total 500 Balance -500 - Medications Medications: Current Medications Calcitriol (Rocaltrol) 0.25 mcg PO MWF [facility] Last Admin: 02/27/17 09:24 Dose: 0.25 mcg Ferrous Sulfate (Feosol) 325 mg PO BID [facility] Last Admin: 02/27/17 09:24 Dose: 325 mg Heparin Sodium (Porcine) (Heparin) 5,000 units SC Q8 [facility] Last Admin: 02/27/17 05:16 Dose: 5,000 units Insulin Aspart (Novolog) 0 unit SC ACHS [facility] PRN Reason: Protocol Last Admin: 02/27/17 13:00 Dose: 2 unit Insulin Glargine (Lantus) 10 unit SC DAILY [facility] Labetalol HCl (Normodyne) 300 mg PO BID [facility] Lisinopril (Zestril) 10 mg PO DAILY [facility] Last Admin: 02/27/17 09:24 Dose: 10 mg Pantoprazole Sodium (Protonix Ec Tab) 20 mg PO DAILY [facility] Last Admin: 02/27/17 09:25 Dose: 20 mg Pneumococcal Polyvalent Vaccine (Pneumovax 23 Vaccine) 0.5 ml IM .ONCE ONE Stop: 02/28/17 10:01 - Labs Labs: 02/27/17 07:52 02/27/17 07:52 - Respiratory Exam Additional comments: Lungs clear - Cardiovascular Exam Cardiovascular Exam: REGULAR RHYTHM - Extremities Exam Additional comments: No edema Assessment and Plan - Assessment and Plan (Free Text) Assessment: Stage 1V kidney dis. BUN/Creat are slightly higher& developing metabolic acidosis Will need to continue Lasix HTN uncontrolled DM Plan: 24 hr urine collection in progress \ Monitor renal function Suggest to resume Lasix. Pt was on maintenance lasix at home
[2017-02-27] MEDS: Labetalol Hydrochloride 300 mg Tab PO SCH (18:45)
--- NOTE | 2017-02-27 19:19 | CP.PCM.PN ---
Subjective - Date & Time of Evaluation Date of Evaluation: 02/27/17 Time of Evaluation: 20:45 - Subjective Subjective: Cr worsening possible HD Objective - Vital Signs/Intake and Output Vital Signs (last 24 hours): Temp Pulse Resp BP Pulse Ox 97.4 F L 80 20 148/65 97 02/27/17 15:13 02/27/17 15:13 02/27/17 15:13 02/27/17 15:13 02/27/17 15:13 - Medications Medications: Current Medications Calcitriol (Rocaltrol) 0.25 mcg PO MWF [facility] Last Admin: 02/27/17 09:24 Dose: 0.25 mcg Ferrous Sulfate (Feosol) 325 mg PO BID [facility] Last Admin: 02/27/17 18:44 Dose: 325 mg Furosemide (Lasix) 40 mg PO DAILY [facility] Heparin Sodium (Porcine) (Heparin) 5,000 units SC Q8 [facility] Last Admin: 02/27/17 14:57 Dose: 5,000 units Insulin Aspart (Novolog) 0 unit SC ACHS [facility] PRN Reason: Protocol Last Admin: 02/27/17 18:45 Dose: 4 unit Insulin Glargine (Lantus) 10 unit SC DAILY [facility] Labetalol HCl (Normodyne) 300 mg PO BID [facility] Last Admin: 02/27/17 18:45 Dose: 300 mg Lisinopril (Zestril) 10 mg PO DAILY [facility] Last Admin: 02/27/17 09:24 Dose: 10 mg Pantoprazole Sodium (Protonix Ec Tab) 20 mg PO DAILY [facility] Last Admin: 02/27/17 09:25 Dose: 20 mg Pneumococcal Polyvalent Vaccine (Pneumovax 23 Vaccine) 0.5 ml IM .ONCE ONE Stop: 02/28/17 10:01 - Labs Labs: 02/27/17 07:52 02/27/17 07:52 - Constitutional Appears: Well - Head Exam Head Exam: ATRAUMATIC, NORMAL INSPECTION, NORMOCEPHALIC - Eye Exam Eye Exam: EOMI, Normal appearance, PERRL Pupil Exam: NORMAL ACCOMODATION, PERRL - ENT Exam ENT Exam: Mucous Membranes Moist, Normal Exam - Neck Exam Neck Exam: Full ROM, Normal Inspection. absent: Lymphadenopathy - Respiratory Exam Respiratory Exam: Clear to Ausculation Bilateral, NORMAL BREATHING PATTERN - Cardiovascular Exam Cardiovascular Exam: REGULAR RHYTHM, +S1, +S2, Murmur - GI/Abdominal Exam GI & Abdominal Exam: Soft, Normal Bowel Sounds. absent: Tenderness - Extremities Exam Extremities Exam: Full ROM, Normal Capillary Refill, Normal Inspection. absent : Joint Swelling, Pedal Edema - Back Exam Back Exam: NORMAL INSPECTION - Neurological Exam Neurological Exam: Alert, Awake, CN II-XII Intact, Oriented x3 - Psychiatric Exam Psychiatric exam: Normal Affect, Normal Mood - Skin Skin Exam: Dry, Intact, Normal Color, Warm Assessment and Plan (1) Cardiac murmur due to mitral valve disorder Assessment & Plan: benign no evidence of vegetatoin moderate MAC - check iPTH and vit D levels Status: Acute (2) Hypertension Assessment & Plan: consider coreg add norvasc for BP control Status: Acute (3) Pulmonary HTN Assessment & Plan: may benefit from RHCx Status: Acute (4) Tricuspid regurgitation Status: Acute (5) Chronic kidney disease (CKD) Status: Chronic
[2017-02-28 06:23] LABS: BASO # 0.1 K/uL (0.0-0.2); BASO % 0.8 % (0.0-2.0); EOS # 0.1 K/uL (0.0-0.7); EOS % 2.2 % (0.0-4.0); HEMATOCRIT 27.7 % (34.0-47.0); LYMPH # 1.3 K/uL (1.0-4.3); LYMPH % 21.4 % (20.0-40.0); MEAN CELL VOLUME 85.7 fL (81.0-99.0); MEAN CORPUSCULAR HGB CONC 32.7 g/dL (33.0-37.0); MEAN PLATELET VOLUME 7.9 fL (7.2-11.7); MONO # 0.3 K/uL (0.0-0.8); MONO % 5.3 % (0.0-10.0); RED CELL DISTRIBUTION WIDTH 15.5 % (11.5-14.5); WHITE BLOOD COUNT 6.2 K/uL (4.8-10.8)
[2017-02-28 06:43] LABS: ALB/GLOB RATIO 1.2 (1.0-2.1); BILIRUBIN,TOTAL 0.7 mg/dL (0.2-1.3); CALCIUM 9.4 mg/dl (8.6-10.4); MAGNESIUM 1.9 mg/dL (1.6-2.3); PHOSPHOROUS 3.7 mg/dL (2.5-4.5); POTASSIUM 4.7 mmol/L (3.6-5.2)
--- NOTE | 2017-02-28 07:26 | CP.PCM.PN ---
Subjective - Date & Time of Evaluation Date of Evaluation: 02/28/17 Time of Evaluation: 07:26 Objective - Vital Signs/Intake and Output Vital Signs (last 24 hours): Temp Pulse Resp BP Pulse Ox 98.7 F 81 20 162/73 H 97 02/28/17 04:00 02/28/17 04:03 02/28/17 04:00 02/28/17 04:00 02/28/17 04:00 Intake and Output: 02/28/17 02/28/17 06:59 18:59 Intake Total 150 Balance 150 - Medications Medications: Current Medications Calcitriol (Rocaltrol) 0.25 mcg PO MWF [facility] Last Admin: 02/27/17 09:24 Dose: 0.25 mcg Ferrous Sulfate (Feosol) 325 mg PO BID [facility] Last Admin: 02/27/17 18:44 Dose: 325 mg Furosemide (Lasix) 40 mg PO DAILY [facility] Heparin Sodium (Porcine) (Heparin) 5,000 units SC Q8 [facility] Last Admin: 02/28/17 05:37 Dose: 5,000 units Insulin Aspart (Novolog) 0 unit SC ACHS [facility] PRN Reason: Protocol Last Admin: 02/27/17 21:55 Dose: Not Given Insulin Glargine (Lantus) 10 unit SC DAILY [facility] Labetalol HCl (Normodyne) 300 mg PO BID [facility] Last Admin: 02/27/17 18:45 Dose: 300 mg Lisinopril (Zestril) 10 mg PO DAILY [facility] Last Admin: 02/27/17 09:24 Dose: 10 mg Pantoprazole Sodium (Protonix Ec Tab) 20 mg PO DAILY [facility] Last Admin: 02/27/17 09:25 Dose: 20 mg Pneumococcal Polyvalent Vaccine (Pneumovax 23 Vaccine) 0.5 ml IM .ONCE ONE Stop: 02/28/17 10:01 - Labs Labs: 02/28/17 06:10 02/28/17 06:10 Assessment and Plan (1) Cardiac murmur due to mitral valve disorder Status: Acute (2) Hypertension Status: Acute (3) Pulmonary HTN Status: Acute (4) Tricuspid regurgitation Status: Acute (5) Chronic kidney disease (CKD) Status: Chronic
--- NOTE | 2017-02-28 07:55 | CP.PCM.PN ---
<Latonya Smith - Last Filed: 02/28/17 17:22> Subjective - Date & Time of Evaluation Date of Evaluation: 02/28/17 Time of Evaluation: 07:45 - Subjective Subjective: Medicine Progress Note: Patient was seen and examined at bedside in the AM. Per nurse there were no acute events overnight. Patient states she has no complaints overnight. Patient denies headache, chest pain, shortness of breath, palpitations, dizziness, or difficultly urinating. Patient states she has not had a bowel movement because she feels embarrassed to use the commode. Discussed with patient that she can call the nurse to assist her to use the bathroom in the room. Patient stated she understands and will do that today. Objective - Vital Signs/Intake and Output Vital Signs (last 24 hours): Temp Pulse Resp BP Pulse Ox 98 F 86 20 177/67 H 95 02/28/17 07:05 02/28/17 07:05 02/28/17 07:05 02/28/17 07:05 02/28/17 07:05 Intake and Output: 02/28/17 02/28/17 06:59 18:59 Intake Total 150 Balance 150 - Medications Medications: Current Medications Calcitriol (Rocaltrol) 0.25 mcg PO MWF [facility] Last Admin: 02/27/17 09:24 Dose: 0.25 mcg Ferrous Sulfate (Feosol) 325 mg PO BID [facility] Last Admin: 02/27/17 18:44 Dose: 325 mg Furosemide (Lasix) 40 mg PO DAILY [facility] Heparin Sodium (Porcine) (Heparin) 5,000 units SC Q8 [facility] Last Admin: 02/28/17 05:37 Dose: 5,000 units Insulin Aspart (Novolog) 0 unit SC ACHS [facility] PRN Reason: Protocol Last Admin: 02/27/17 21:55 Dose: Not Given Insulin Glargine (Lantus) 10 unit SC DAILY [facility] Labetalol HCl (Normodyne) 300 mg PO BID [facility] Last Admin: 02/27/17 18:45 Dose: 300 mg Lisinopril (Zestril) 10 mg PO DAILY [facility] Last Admin: 02/27/17 09:24 Dose: 10 mg Pantoprazole Sodium (Protonix Ec Tab) 20 mg PO DAILY [facility] Last Admin: 02/27/17 09:25 Dose: 20 mg Pneumococcal Polyvalent Vaccine (Pneumovax 23 Vaccine) 0.5 ml IM .ONCE ONE Stop: 02/28/17 10:01 - Labs Labs: 02/28/17 06:10 02/28/17 06:10 - Constitutional Appears: Well, Non-toxic, No Acute Distress - Head Exam Head Exam: ATRAUMATIC, NORMAL INSPECTION, NORMOCEPHALIC - Eye Exam Eye Exam: EOMI, Normal appearance, PERRL Pupil Exam: NORMAL ACCOMODATION, PERRL - ENT Exam ENT Exam: Mucous Membranes Moist - Respiratory Exam Respiratory Exam: Clear to Ausculation Bilateral, NORMAL BREATHING PATTERN - Cardiovascular Exam Cardiovascular Exam: REGULAR RHYTHM, RRR, +S1, +S2, Murmur - GI/Abdominal Exam GI & Abdominal Exam: Soft, Normal Bowel Sounds. absent: Distended, Tenderness - Extremities Exam Extremities Exam: Normal Inspection. absent: Pedal Edema, Tenderness - Neurological Exam Neurological Exam: Alert, Awake, Oriented x3 - Psychiatric Exam Psychiatric exam: Normal Affect, Normal Mood - Skin Skin Exam: Dry, Intact, Normal Color, Warm Assessment and Plan - Assessment and Plan (Free Text) Plan: 1.) Altered mental status - possibly secondary to diabetic hypoglycemic episode UA: Negative Urine culture: No growth Blood culture: No growth - preliminary CT head without contrast: No acute findings seen within the brain. Evidence of chronic ischemic changes Chest X-ray: The central pulmonary vasculature is slightly increased though improved from prior study ; rule out chronic compensated pulmonary edema/CHF. Suspect minor right basilar atelectasis 2.) Aortic Stenosis - possible CHF Chest X-ray: The central pulmonary vasculature is slightly increased though improved from prior study ; rule out chronic compensated pulmonary edema/CHF. Suspect minor right basilar atelectasis Previous ECHO 10/22/16: EF 63%, aortic valve is severely thickened; mild aortic regurgitation; Mitral valve is severely thickened, a vegetation cannot be ruled out Cardiology Consult: Dr. Jim --> help appreciated - Per Dr. Jim's note - no evidence of vegetation; - f/u PTH and vit d levels 3.) History of Diabetes Hemoglobin A1c (10/21/16): 7.0 * repeat HgbA1c (02/26): 7.6 ISS ( Moderate) Insulin Glargine 10units daily Insulin Aspart 3 units TIDAC Accuchecks Monitor 4.) History of Hypertension Labetatol 300mg PO BID Lisinopril 10mg PO daily Norvasc 10mg PO daily Monitor BP Per Dr. Jim - consider coreg 5.) History of chronic kidney disease - Stage V Nephrology Consult---> Dr. Schuyler Martinez --> Help appreciated - 24 hour urine for Cr Clearance: Cr clearance of 17 - per Dr. Martinez - Continue calcitriol, lasix, started on Procrit 02/28 BUN/CR: * 57/3.8 * Continue to monitor renal function 6.) History of Anemia H/H stable Continue home medication: * Feosol 325mg PO BID 7.) Bilateral Nail Care * Podiatry Consult: Dr. Mcgarry --> help appreciated 8.) Prophylactic measure Scds Heparin 5000 units SC Q8H Protonix 20mg PO daily Case discussed with Dr. Live Smith PGY-1 <Shahbaz Mancini M - Last Filed: 02/28/17 18:28> Objective - Vital Signs/Intake and Output Vital Signs (last 24 hours): Temp Pulse Resp BP Pulse Ox 97.6 F 76 20 126/60 96 02/28/17 15:32 02/28/17 15:32 02/28/17 15:32 02/28/17 15:32 02/28/17 15:32 Intake and Output: 02/28/17 02/28/17 06:59 18:59 Intake Total 150 250 Balance 150 250 - Medications Medications: Current Medications Amlodipine Besylate (Norvasc) 10 mg PO DAILY [facility] Last Admin: 02/28/17 10:08 Dose: 10 mg Calcitriol (Rocaltrol) 0.25 mcg PO MWF [facility] Last Admin: 02/27/17 09:24 Dose: 0.25 mcg Epoetin Alan (Procrit) 10,000 unit IV TTS [facility] Ferrous Sulfate (Feosol) 325 mg PO BID [facility] Last Admin: 02/28/17 10:05 Dose: 325 mg Furosemide (Lasix) 40 mg PO DAILY [facility] Last Admin: 02/28/17 10:06 Dose: 40 mg Heparin Sodium (Porcine) (Heparin) 5,000 units SC Q8 [facility] Last Admin: 02/28/17 13:42 Dose: 5,000 units Insulin Aspart (Novolog) 0 unit SC ACHS [facility] PRN Reason: Protocol Last Admin: 02/28/17 12:30 Dose: 2 unit Insulin Aspart (Novolog) 3 unit SC TIDAC [facility] Last Admin: 02/28/17 12:31 Dose: 3 unit Insulin Glargine (Lantus) 10 unit SC DAILY [facility] Last Admin: 02/28/17 10:09 Dose: 10 units Labetalol HCl (Normodyne) 300 mg PO BID [facility] Last Admin: 02/28/17 10:05 Dose: 300 mg Lisinopril (Zestril) 10 mg PO DAILY [facility] Last Admin: 02/28/17 10:06 Dose: 10 mg Pantoprazole Sodium (Protonix Ec Tab) 20 mg PO DAILY [facility] Last Admin: 02/28/17 10:05 Dose: 20 mg - Labs Labs: 02/28/17 06:10 02/28/17 06:10 Attending/Attestation - Attestation I have personally seen and examined this patient.: Yes I have fully participated in the care of the patient.: Yes I have reviewed all pertinent clinical information, including history, physical exam and plan: Yes Notes (Text): 02/28/17 18:22 Patient was seen and examined at bedside with the resident. Patient denies any new complaints. Renal workup in progress for possible hemodialysis No further cardiac workup indicated. I discussed the plan of care with the resident and agree with the history and physical and assessment/plan documented
[2017-02-28] MEDS: (Novolog) Insulin Aspart, Recombinant 100 u/ml 10 ml vial SC SCH ×6 (08:02→22:48)
[2017-02-28] MEDS ORDERED: Pneumococcal 23-Valent Vaccine IM ONE (10:00)
[2017-02-28] MEDS: Labetalol Hydrochloride 300 mg Tab PO SCH ×2 (10:05→20:16)
[2017-02-28] MEDS: Pantoprazole 20 mg EC Tab PO SCH (10:05)
[2017-02-28] MEDS: (Lantus) Insulin Glargine, Recombinant SC SCH (10:09)
--- NOTE | 2017-02-28 10:50 | CP.PCM.PN ---
Subjective - Date & Time of Evaluation Date of Evaluation: 02/28/17 Time of Evaluation: 10:45 - Subjective Subjective: No c/o SOB Appears comfortable Objective - Vital Signs/Intake and Output Vital Signs (last 24 hours): Temp Pulse Resp BP Pulse Ox 98 F 86 20 132/58 L 95 02/28/17 07:05 02/28/17 07:05 02/28/17 07:05 02/28/17 10:06 02/28/17 07:05 Intake and Output: 02/28/17 02/28/17 06:59 18:59 Intake Total 150 Balance 150 - Medications Medications: Current Medications Amlodipine Besylate (Norvasc) 10 mg PO DAILY [facility] Last Admin: 02/28/17 10:08 Dose: 10 mg Calcitriol (Rocaltrol) 0.25 mcg PO MWF [facility] Last Admin: 02/27/17 09:24 Dose: 0.25 mcg Ferrous Sulfate (Feosol) 325 mg PO BID [facility] Last Admin: 02/28/17 10:05 Dose: 325 mg Furosemide (Lasix) 40 mg PO DAILY [facility] Last Admin: 02/28/17 10:06 Dose: 40 mg Heparin Sodium (Porcine) (Heparin) 5,000 units SC Q8 [facility] Last Admin: 02/28/17 05:37 Dose: 5,000 units Insulin Aspart (Novolog) 0 unit SC ACHS [facility] PRN Reason: Protocol Last Admin: 02/28/17 08:02 Dose: 2 unit Insulin Aspart (Novolog) 3 unit SC TIDAC [facility] Insulin Glargine (Lantus) 10 unit SC DAILY [facility] Last Admin: 02/28/17 10:09 Dose: 10 units Labetalol HCl (Normodyne) 300 mg PO BID [facility] Last Admin: 02/28/17 10:05 Dose: 300 mg Lisinopril (Zestril) 10 mg PO DAILY [facility] Last Admin: 02/28/17 10:06 Dose: 10 mg Pantoprazole Sodium (Protonix Ec Tab) 20 mg PO DAILY [facility] Last Admin: 02/28/17 10:05 Dose: 20 mg - Labs Labs: 02/28/17 06:10 02/28/17 06:10 - Respiratory Exam Additional comments: Lungs clear - Cardiovascular Exam Cardiovascular Exam: REGULAR RHYTHM - Extremities Exam Additional comments: No edema Assessment and Plan - Assessment and Plan (Free Text) Assessment: Stage 1V kidney disease Cr CL 17 on 24 hr urine collectionHTN BP control is improving Secondary htperparathyroidism CHF DM Plan: Continue to monitor renal function Continue Calcitriol & Lasix. Needs procrit
[2017-02-28 17:48] LABS: IRON 31 ug/dL (37-170)
--- NOTE | 2017-03-01 07:35 | CP.PCM.PN ---
Subjective - Date & Time of Evaluation Date of Evaluation: 03/01/17 Time of Evaluation: 07:30 - Subjective Subjective: PGY1 Note for Dr. Mancini HPI: Patient seen and examined at bedside. Doing well. Said hat the kidney doctor told her she could go home yesterday. Patient wants to go home. Says she needs to get her balance but she said her sister has a walker she can have to get around. Had a BM yesterday. Denies any chest pain or SOB. Patient is making urine. No fever, N/V/D. Objective - Vital Signs/Intake and Output Vital Signs (last 24 hours): Temp Pulse Resp BP Pulse Ox 98.4 F 82 20 148/67 95 02/28/17 23:00 03/01/17 04:30 02/28/17 23:00 02/28/17 23:00 02/28/17 23:00 - Medications Medications: Current Medications Amlodipine Besylate (Norvasc) 10 mg PO DAILY [facility] Last Admin: 02/28/17 10:08 Dose: 10 mg Calcitriol (Rocaltrol) 0.25 mcg PO MWF [facility] Last Admin: 02/27/17 09:24 Dose: 0.25 mcg Epoetin Alan (Procrit) 10,000 unit IV TTS [facility] Ferrous Sulfate (Feosol) 325 mg PO BID [facility] Last Admin: 02/28/17 20:15 Dose: 325 mg Furosemide (Lasix) 40 mg PO DAILY [facility] Last Admin: 02/28/17 10:06 Dose: 40 mg Heparin Sodium (Porcine) (Heparin) 5,000 units SC Q8 [facility] Last Admin: 03/01/17 06:00 Dose: 5,000 units Insulin Aspart (Novolog) 0 unit SC ACHS [facility] PRN Reason: Protocol Last Admin: 02/28/17 22:48 Dose: Not Given Insulin Aspart (Novolog) 3 unit SC TIDAC [facility] Last Admin: 02/28/17 16:30 Dose: Not Given Insulin Glargine (Lantus) 10 unit SC DAILY [facility] Last Admin: 02/28/17 10:09 Dose: 10 units Labetalol HCl (Normodyne) 300 mg PO BID [facility] Last Admin: 02/28/17 20:16 Dose: 300 mg Lisinopril (Zestril) 10 mg PO DAILY [facility] Last Admin: 02/28/17 10:06 Dose: 10 mg Pantoprazole Sodium (Protonix Ec Tab) 20 mg PO DAILY [facility] Last Admin: 02/28/17 10:05 Dose: 20 mg - Labs Labs: 02/28/17 06:10 02/28/17 06:10 - Constitutional Appears: Well, Non-toxic, No Acute Distress - Head Exam Head Exam: ATRAUMATIC, NORMAL INSPECTION, NORMOCEPHALIC - Eye Exam Eye Exam: EOMI - ENT Exam ENT Exam: Mucous Membranes Moist - Respiratory Exam Respiratory Exam: Clear to Ausculation Bilateral, NORMAL BREATHING PATTERN. absent: Rales, Rhonchi, Wheezes, Stridor - Cardiovascular Exam Cardiovascular Exam: REGULAR RHYTHM. absent: Bradycardia, Tachycardia, Gallop, Rubs, Murmur - GI/Abdominal Exam GI & Abdominal Exam: Distended, Soft, Normal Bowel Sounds. absent: Tenderness - Neurological Exam Neurological Exam: Alert, Awake, Oriented x3 - Psychiatric Exam Psychiatric exam: Normal Affect, Normal Mood - Skin Skin Exam: Dry, Intact, Normal Color, Warm
[2017-03-01] MEDS: (Novolog) Insulin Aspart, Recombinant 100 u/ml 10 ml vial SC SCH ×4 (08:27→12:30)
[2017-03-01] MEDS: Pantoprazole 20 mg EC Tab PO SCH (09:12)
[2017-03-01] MEDS: Labetalol Hydrochloride 300 mg Tab PO SCH (09:13)
[2017-03-01] MEDS: (Lantus) Insulin Glargine, Recombinant SC SCH (09:13)
--- NOTE | 2017-03-01 10:50 | CP.PCM.PN ---
Subjective - Date & Time of Evaluation Date of Evaluation: 03/01/17 Time of Evaluation: 10:00 - Subjective Subjective: No c/o SOB Feels better Objective - Vital Signs/Intake and Output Vital Signs (last 24 hours): Temp Pulse Resp BP Pulse Ox 98.1 F 79 18 147/61 97 03/01/17 07:00 03/01/17 07:00 03/01/17 07:00 03/01/17 09:12 03/01/17 07:00 - Medications Medications: Current Medications Amlodipine Besylate (Norvasc) 10 mg PO DAILY [facility] Last Admin: 03/01/17 09:13 Dose: 10 mg Calcitriol (Rocaltrol) 0.25 mcg PO MWF [facility] Last Admin: 03/01/17 09:12 Dose: 0.25 mcg Epoetin Alan (Procrit) 10,000 unit IV TTS [facility] Ferrous Sulfate (Feosol) 325 mg PO BID [facility] Last Admin: 03/01/17 09:13 Dose: 325 mg Furosemide (Lasix) 40 mg PO DAILY [facility] Last Admin: 03/01/17 09:12 Dose: 40 mg Heparin Sodium (Porcine) (Heparin) 5,000 units SC Q8 [facility] Last Admin: 03/01/17 06:00 Dose: 5,000 units Insulin Aspart (Novolog) 0 unit SC ACHS [facility] PRN Reason: Protocol Last Admin: 03/01/17 08:27 Dose: 3 unit Insulin Aspart (Novolog) 3 unit SC TIDAC [facility] Last Admin: 03/01/17 08:28 Dose: 3 unit Insulin Glargine (Lantus) 10 unit SC DAILY [facility] Last Admin: 03/01/17 09:13 Dose: 10 units Labetalol HCl (Normodyne) 300 mg PO BID [facility] Last Admin: 03/01/17 09:13 Dose: 300 mg Lisinopril (Zestril) 10 mg PO DAILY [facility] Last Admin: 03/01/17 09:12 Dose: 10 mg Pantoprazole Sodium (Protonix Ec Tab) 20 mg PO DAILY [facility] Last Admin: 03/01/17 09:12 Dose: 20 mg - Labs Labs: 02/28/17 06:10 02/28/17 06:10 - Respiratory Exam Additional comments: Lungs clear - Cardiovascular Exam Cardiovascular Exam: REGULAR RHYTHM - Extremities Exam Additional comments: No edema Assessment and Plan - Assessment and Plan (Free Text) Assessment: Stage 1V kidney dis stable with creat clearance of 17 CHF IDDM Hx/o TIA Plan: No dialysis is needed at this time BP is controlled Continue current meds
--- NOTE | 2017-03-01 12:57 | CP.PCM.DIS ---
<Rex Romero - Last Filed: 03/01/17 15:05> Provider - Provider Date of Admission: 02/25/17 18:42 Attending physician: Shahbaz Mancini MD Primary care physician: Piotr Consults: Nephro: [place] Cards: Hernán Time Spent in preparation of Discharge (in minutes): 45 Diagnosis - Discharge Diagnosis (1) Hypoglycemia Status: Resolved Priority: Medium Comment: patients premeal and long lasting insulin was changed to 3 and 15 respectively, Please follow up with PMD Hospital Course - Lab Results Lab Results: Most Recent Lab Values WBC 6.2 K/uL (4.8-10.8) 02/28/17 06:10 RBC 3.23 Mil/uL (3.80-5.20) L 02/28/17 06:10 Hgb 9.1 g/dL (11.0-16.0) L 02/28/17 06:10 Hct 27.7 % (34.0-47.0) L 02/28/17 06:10 MCV 85.7 fL (81.0-99.0) 02/28/17 06:10 MCH 28.0 pg (27.0-31.0) 02/28/17 06:10 MCHC 32.7 g/dL (33.0-37.0) L 02/28/17 06:10 RDW 15.5 % (11.5-14.5) H 02/28/17 06:10 Plt Count 195 K/uL (130-400) 02/28/17 06:10 MPV 7.9 fL (7.2-11.7) 02/28/17 06:10 Neut % (Auto) 70.3 % (50.0-75.0) 02/28/17 06:10 Lymph % (Auto) 21.4 % (20.0-40.0) 02/28/17 06:10 [place] % (Auto) 5.3 % (0.0-10.0) 02/28/17 06:10 Eos % (Auto) 2.2 % (0.0-4.0) 02/28/17 06:10 Baso % (Auto) 0.8 % (0.0-2.0) 02/28/17 06:10 Neut # 4.4 K/uL (1.8-7.0) 02/28/17 06:10 Lymph # 1.3 K/uL (1.0-4.3) 02/28/17 06:10 [place] # 0.3 K/uL (0.0-0.8) 02/28/17 06:10 Eos # 0.1 K/uL (0.0-0.7) 02/28/17 06:10 Baso # 0.1 K/uL (0.0-0.2) 02/28/17 06:10 Neutrophils % (Manual) 93 % (50-75) H 02/25/17 18:11 Lymphocytes % (Manual) 6 % (20-40) L 02/25/17 18:11 Monocytes % (Manual) 1 % (0-10) 02/25/17 18:11 Platelet Estimate Normal (NORMAL) 02/25/17 18:11 Hypochromasia (manual) Slight 02/25/17 18:11 Anisocytosis (manual) Slight 02/25/17 18:11 Ovalocytes Slight 02/25/17 18:11 pO2 26 mm/Hg (30-55) L 02/25/17 17:15 VBG pH 7.28 (7.32-7.43) L 02/25/17 17:15 VBG pCO2 52 mmHg (40-60) 02/25/17 17:15 VBG HCO3 21.0 mmol/L 02/25/17 17:15 VBG Total CO2 26.0 mmol/L (22-28) 02/25/17 17:15 VBG O2 Sat (Calc) 47.6 % (40-65) 02/25/17 17:15 VBG Base Excess -3.0 mmol/L (0.0-2.0) L 02/25/17 17:15 VBG Potassium 4.1 mmol/L (3.6-5.2) 02/25/17 17:15 Sodium 144.0 mmol/l (132-148) 02/25/17 17:15 Chloride 109.0 mmol/L (98-107) H 02/25/17 17:15 Glucose 45 mg/dl (65-105) L 02/25/17 17:15 Lactate 1.8 mmol/L (0.7-2.1) 02/25/17 17:15 FiO2 21.0 % 02/25/17 17:15 Sodium 135 mmol/L (132-148) 02/28/17 06:10 Potassium 4.7 mmol/L (3.6-5.2) 02/28/17 06:10 Chloride 105 mmol/L (98-107) 02/28/17 06:10 Carbon Dioxide 19 mmol/L (22-30) L 02/28/17 06:10 Anion Gap 16 (10-20) 02/28/17 06:10 BUN 57 mg/dL (7-17) H 02/28/17 06:10 Creatinine 3.8 MG/DL (0.7-1.2) H 02/28/17 06:10 Est GFR ( Amer) 14 02/28/17 06:10 Est GFR (Non-Af Amer) 12 02/28/17 06:10 POC Glucose (mg/dL) 101 mg/dL (65-110) 03/01/17 11:41 Random Glucose 158 mg/dL (65-105) H 02/28/17 06:10 Hemoglobin A1c 7.6 % (4.2-6.5) H 02/26/17 07:12 Calcium 9.4 mg/dl (8.6-10.4) 02/28/17 06:10 Phosphorus 3.7 mg/dL (2.5-4.5) 02/28/17 06:10 Magnesium 1.9 mg/dL (1.6-2.3) 02/28/17 06:10 Iron 31 ug/dL (37-170) L 02/28/17 17:21 TIBC 289 ug/dL (250-450) 02/28/17 17:21 % Saturation 11 (20-55) L 02/28/17 17:21 Ferritin 99.4 ng/mL 02/28/17 17:21 Total Bilirubin 0.7 mg/dL (0.2-1.3) 02/28/17 06:10 AST 15 U/L (14-36) 02/28/17 06:10 ALT 20 U/L (9-52) 02/28/17 06:10 Alkaline Phosphatase 69 U/L (38-126) 02/28/17 06:10 Total Creatine Kinase 340 U/L (30-135) H 02/25/17 17:14 CK-MB (Mass) 6.09 ng/mL (0.0-3.38) H 02/25/17 17:14 Troponin I 0.0250 ng/mL (0.00-0.120) 02/25/17 17:14 NT-Pro-B Natriuret Pep 41829 pg/mL (0-900) H 02/25/17 17:31 Total Protein 6.0 g/dL (6.3-8.3) L 02/28/17 06:10 Albumin 3.3 g/dL (3.5-5.0) L 02/28/17 06:10 Globulin 2.7 gm/dL (2.2-3.9) 02/28/17 06:10 Albumin/Globulin Ratio 1.2 (1.0-2.1) 02/28/17 06:10 PTH Intact Whole Molec 297 pg/mL (14-64) H 02/26/17 13:47 Venous Blood Potassium 4.1 mmol/L (3.6-5.2) 02/25/17 17:15 Urine Color Colorless (YELLOW) 02/25/17 18:00 Urine Clarity Clear (Clear) 02/25/17 18:00 Urine pH 7.0 (5.0-8.0) 02/25/17 18:00 Ur Specific [place] 1.006 (1.003-1.030) 02/25/17 18:00 Urine Protein 1+ mg/dL (NEGATIVE) H 02/25/17 18:00 Urine Glucose (UA) 1+ mg/dL (Normal) 02/25/17 18:00 Urine Ketones Negative mg/dL (NEGATIVE) 02/25/17 18:00 Urine Blood 1+ (NEGATIVE) H 02/25/17 18:00 Urine Nitrate Negative (NEGATIVE) 02/25/17 18:00 Urine Bilirubin Negative (NEGATIVE) 02/25/17 18:00 Urine Urobilinogen Normal mg/dL (0.2-1.0) 02/25/17 18:00 Ur Leukocyte Esterase Neg Nova/uL (Negative) 02/25/17 18:00 Urine WBC (Auto) < 1 /hpf (0-5) 02/25/17 18:00 Urine RBC (Auto) 1 /hpf (0-3) 02/25/17 18:00 Urine Bacteria Rare (<OCC) 02/25/17 18:00 Urine Collection Time 24 HRS 02/27/17 21:29 Urine Total Volume 1400 mL 02/27/17 21:29 Creatinine Clearance 17.0 mL/min (87-107) L 02/27/17 21:29 Ur Protein 24 Hr Calc 1190.0 mg/24hr (42-225) H 02/27/17 21:29 - Hospital Course Hospital Course: On admission: 75 year old female with PMHx significant for HTN, asthma, arthritis, pneumonia, diabetes mellitus, prior TIAs and chronic kidney disease presents to the ED with complaint of transient altered mental status. Patient was found to be confused this morning by her son. Thereafter, patient's son called his sister who then instructed him to call the ambulance. As per EMS, patient was found to have a blood glucose of 42 and was administered D50 on the field. Upon arrival to the ED, patient's blood glucose was 118. Currently, patient is without symptoms and she is awake, alert and oriented. Patient's daughter states that her mother has been without visiting care givers for approximately a week and she is unsure of the reason. Patient reports that she has not been eating well and tends to skip meals even though she is hungry. Patient denies fever, chills, nausea, vomiting, headache, visual disturbances, chest pain, palpitations, diarrhea, urinary symptoms but does have complains of bilateral leg cramping. Patient presented to the ED for hypoglycemia. Patient explains that she sometime forgets to take her insulin in the morning and takes them at nigh instead. Dr. Jim was consulted for a noted thickened mitral valve found on previous echo with a possible vegetation but was later ruled out. Nimco Linares , the podiatry resident, was consulted for a complaint of painful toenails. Dr. Martinez was consulted for CKD and the possible need for dialysis.Dr. Martinez followed up and noted that the patient does not need dialysis because it seemed that her kidney function was improving and advised that she should continue her home meds. Patient was still unsteady but refused to go to a subacute rehab facility as she has been several times and did not have a good experience. Patient did agree however to at home rehab and a skilled nurse to come and manage her diabetes. Patient does live alone but she says her children are often in and out of the house so she "dosnt really live alone". Patient looks well at bedside and is ready for discharge. - Date & Time of H&P Date of H&P: 02/25/17 Time of H&P: 19:58 Discharge Exam - Head Exam Head Exam: ATRAUMATIC, NORMAL INSPECTION, NORMOCEPHALIC - Eye Exam Eye Exam: EOMI - ENT Exam ENT Exam: Mucous Membranes Moist - Respiratory Exam Respiratory Exam: NORMAL BREATHING PATTERN. absent: Rhonchi - Cardiovascular Exam Cardiovascular Exam: REGULAR RHYTHM, RRR. absent: Systolic Murmur - GI/Abdominal Exam GI & Abdominal Exam: Normal Bowel Sounds, Soft. absent: Distended, Tenderness - Neurological Exam Neurological exam: Alert, Oriented x3 - Psychiatric Exam Psychiatric exam: Normal Affect, Normal Mood - Skin Skin Exam: Dry, Intact, Normal Color, Warm Discharge Plan - Discharge Medications Prescriptions: Ferrous Sulfate [Feosol] 325 mg PO BID #60 tab Furosemide [Lasix] 40 mg PO DAILY #30 tab Insulin Aspart, Recombinant [Novolog] 3 unit SC TIDAC #120 unit Insulin Glargine, Recombina [Lantus] 15 unit SC HS #30 unit Labetalol Hydrochloride [Normodyne] 300 mg PO BID #60 tab Lisinopril [Zestril] 10 mg PO DAILY #30 tab - Follow Up Plan Condition: STABLE Disposition: HOME/ ROUTINE Instructions: Iron Supplements (By mouth), Labetalol (By mouth), Lisinopril ( By mouth), Nifedipine (By mouth), Furosemide (By mouth), Insulin Aspart, Recombinant (By injection), Insulin Glargine (By injection), Heart Failure (DC) , Chronic Kidney Disease (DC), Diabetic Foot Care (DC), Diabetic Hypoglycemia ( DC), Pleural Effusion (DC), Basic Carbohydrate Counting (DC), Meal Planning with the Plate Method (DC), Meal Planning with Diabetes Exchanges (DC), Anemia ( GEN) Additional Instructions: From a Nephro standpoint, patient is stable and clear for discharge. Please make an appointment with Dr. Martinez in one weeks time for follow up of your chronic kidney disease. From a Cardio standpoint, patient is stable and clear for discharge From a medical standpoint patient is stable and clear for discharge. We would like the patient to be sent to a subacute rehab facility in order to get her strength back but the patient refused. We will have home PT sent to her home and a skilled nurse come to the house to help her with her Diabetes medication. She should follow up with her primary care doctor Dr. Saldaña for management of her Diabetes. Please call the office to make an appointment. Please come back to the ER if symptoms return or worsen Prescription instructions will be provided at discharge. Referrals: Wilberto Saldaña MD [Medical Doctor] - Schuyler Martinez MD [Staff Provider] - Vik Jim MD [Staff Provider] - <Shahbaz Mancini - Last Filed: 03/01/17 15:55> Provider - Provider Date of Admission: 02/25/17 18:42 Attending physician: Shahbaz Mancnii MD Hospital Course - Lab Results Lab Results: Most Recent Lab Values WBC 6.2 K/uL (4.8-10.8) 02/28/17 06:10 RBC 3.23 Mil/uL (3.80-5.20) L 02/28/17 06:10 Hgb 9.1 g/dL (11.0-16.0) L 02/28/17 06:10 Hct 27.7 % (34.0-47.0) L 02/28/17 06:10 MCV 85.7 fL (81.0-99.0) 02/28/17 06:10 MCH 28.0 pg (27.0-31.0) 02/28/17 06:10 MCHC 32.7 g/dL (33.0-37.0) L 02/28/17 06:10 RDW 15.5 % (11.5-14.5) H 02/28/17 06:10 Plt Count 195 K/uL (130-400) 02/28/17 06:10 MPV 7.9 fL (7.2-11.7) 02/28/17 06:10 Neut % (Auto) 70.3 % (50.0-75.0) 02/28/17 06:10 Lymph % (Auto) 21.4 % (20.0-40.0) 02/28/17 06:10 [place] % (Auto) 5.3 % (0.0-10.0) 02/28/17 06:10 Eos % (Auto) 2.2 % (0.0-4.0) 02/28/17 06:10 Baso % (Auto) 0.8 % (0.0-2.0) 02/28/17 06:10 Neut # 4.4 K/uL (1.8-7.0) 02/28/17 06:10 Lymph # 1.3 K/uL (1.0-4.3) 02/28/17 06:10 [place] # 0.3 K/uL (0.0-0.8) 02/28/17 06:10 Eos # 0.1 K/uL (0.0-0.7) 02/28/17 06:10 Baso # 0.1 K/uL (0.0-0.2) 02/28/17 06:10 Neutrophils % (Manual) 93 % (50-75) H 02/25/17 18:11 Lymphocytes % (Manual) 6 % (20-40) L 02/25/17 18:11 Monocytes % (Manual) 1 % (0-10) 02/25/17 18:11 Platelet Estimate Normal (NORMAL) 02/25/17 18:11 Hypochromasia (manual) Slight 02/25/17 18:11 Anisocytosis (manual) Slight 02/25/17 18:11 Ovalocytes Slight 02/25/17 18:11 pO2 26 mm/Hg (30-55) L 02/25/17 17:15 VBG pH 7.28 (7.32-7.43) L 02/25/17 17:15 VBG pCO2 52 mmHg (40-60) 02/25/17 17:15 VBG HCO3 21.0 mmol/L 02/25/17 17:15 VBG Total CO2 26.0 mmol/L (22-28) 02/25/17 17:15 VBG O2 Sat (Calc) 47.6 % (40-65) 02/25/17 17:15 VBG Base Excess -3.0 mmol/L (0.0-2.0) L 02/25/17 17:15 VBG Potassium 4.1 mmol/L (3.6-5.2) 02/25/17 17:15 Sodium 144.0 mmol/l (132-148) 02/25/17 17:15 Chloride 109.0 mmol/L (98-107) H 02/25/17 17:15 Glucose 45 mg/dl (65-105) L 02/25/17 17:15 Lactate 1.8 mmol/L (0.7-2.1) 02/25/17 17:15 FiO2 21.0 % 02/25/17 17:15 Sodium 135 mmol/L (132-148) 02/28/17 06:10 Potassium 4.7 mmol/L (3.6-5.2) 02/28/17 06:10 Chloride 105 mmol/L (98-107) 02/28/17 06:10 Carbon Dioxide 19 mmol/L (22-30) L 02/28/17 06:10 Anion Gap 16 (10-20) 02/28/17 06:10 BUN 57 mg/dL (7-17) H 02/28/17 06:10 Creatinine 3.8 MG/DL (0.7-1.2) H 02/28/17 06:10 Est GFR ( Amer) 14 02/28/17 06:10 Est GFR (Non-Af Amer) 12 02/28/17 06:10 POC Glucose (mg/dL) 101 mg/dL (65-110) 03/01/17 11:41 Random Glucose 158 mg/dL (65-105) H 02/28/17 06:10 Hemoglobin A1c 7.6 % (4.2-6.5) H 02/26/17 07:12 Calcium 9.4 mg/dl (8.6-10.4) 02/28/17 06:10 Phosphorus 3.7 mg/dL (2.5-4.5) 02/28/17 06:10 Magnesium 1.9 mg/dL (1.6-2.3) 02/28/17 06:10 Iron 31 ug/dL (37-170) L 02/28/17 17:21 TIBC 289 ug/dL (250-450) 02/28/17 17:21 % Saturation 11 (20-55) L 02/28/17 17:21 Ferritin 99.4 ng/mL 02/28/17 17:21 Total Bilirubin 0.7 mg/dL (0.2-1.3) 02/28/17 06:10 AST 15 U/L (14-36) 02/28/17 06:10 ALT 20 U/L (9-52) 02/28/17 06:10 Alkaline Phosphatase 69 U/L (38-126) 02/28/17 06:10 Total Creatine Kinase 340 U/L (30-135) H 02/25/17 17:14 CK-MB (Mass) 6.09 ng/mL (0.0-3.38) H 02/25/17 17:14 Troponin I 0.0250 ng/mL (0.00-0.120) 02/25/17 17:14 NT-Pro-B Natriuret Pep 22879 pg/mL (0-900) H 02/25/17 17:31 Total Protein 6.0 g/dL (6.3-8.3) L 02/28/17 06:10 Albumin 3.3 g/dL (3.5-5.0) L 02/28/17 06:10 Globulin 2.7 gm/dL (2.2-3.9) 02/28/17 06:10 Albumin/Globulin Ratio 1.2 (1.0-2.1) 02/28/17 06:10 PTH Intact Whole Molec 297 pg/mL (14-64) H 02/26/17 13:47 Venous Blood Potassium 4.1 mmol/L (3.6-5.2) 02/25/17 17:15 Urine Color Colorless (YELLOW) 02/25/17 18:00 Urine Clarity Clear (Clear) 02/25/17 18:00 Urine pH 7.0 (5.0-8.0) 02/25/17 18:00 Ur Specific [place] 1.006 (1.003-1.030) 02/25/17 18:00 Urine Protein 1+ mg/dL (NEGATIVE) H 02/25/17 18:00 Urine Glucose (UA) 1+ mg/dL (Normal) 02/25/17 18:00 Urine Ketones Negative mg/dL (NEGATIVE) 02/25/17 18:00 Urine Blood 1+ (NEGATIVE) H 02/25/17 18:00 Urine Nitrate Negative (NEGATIVE) 02/25/17 18:00 Urine Bilirubin Negative (NEGATIVE) 02/25/17 18:00 Urine Urobilinogen Normal mg/dL (0.2-1.0) 02/25/17 18:00 Ur Leukocyte Esterase Neg Nova/uL (Negative) 02/25/17 18:00 Urine WBC (Auto) < 1 /hpf (0-5) 02/25/17 18:00 Urine RBC (Auto) 1 /hpf (0-3) 02/25/17 18:00 Urine Bacteria Rare (<OCC) 02/25/17 18:00 Urine Collection Time 24 HRS 02/27/17 21:29 Urine Total Volume 1400 mL 02/27/17 21:29 Creatinine Clearance 17.0 mL/min (87-107) L 02/27/17 21:29 Ur Protein 24 Hr Calc 1190.0 mg/24hr (42-225) H 02/27/17 21:29 Attending/Attestation - Attestation I have personally seen and examined this patient.: Yes I have fully participated in the care of the patient.: Yes I have reviewed all pertinent clinical information, including history, physical exam and plan: Yes Notes (Text): 03/01/17 15:54 Patient was seen and examined at bedside with the resident. Patient has no new complaints. Blood sugar is well controlled. Blood pressure is well controlled. I discussed with nephrology. Patient is not a candidate for hemodialysis at this time. I also discussed with cardiology and patient has chronic valvular disease which does not need any intervention at this time. Patient is cleared for discharge. Patient does not want to go to rehabilitation center. She will be discharged to home. Prescriptions provided for all the new medications started during the hospital stay. I discussed the discharge plan with the patient and she verbalized understanding. I also discussed the plan with the medical office technician and I agree with the discharge note by the resident.
[2017-03-01 15:13] VITALS: O2SAT 92
[2017-03-01 16:13] VITALS: BP 147/67; PULSE 77; RESP 20; TEMP 97.7
[2017-03-02] MEDS ORDERED: Epoetin Alfa 10,000 unit/ml Dialysis IV SCH (10:00)
== END 2017-03-01 16:54 | disposition home or self-care (01) | DRG 638 ==
LOC: C.ER 15:32 → C.9E 18:42 → C.6T 20:45
PROVIDERS: ADMIT Internal Medicine; ATTEND Internal Medicine
PROC: 0HBRXZZ Excision of Toe Nail, External Approach (ICD-10-PCS; principal; 2017-02-27)
PROC: 0HBRXZZ Excision of Toe Nail, External Approach (ICD-10-PCS; 2017-02-27)
PROC: 0HBRXZZ Excision of Toe Nail, External Approach (ICD-10-PCS; 2017-02-27)
PROC: 0HBRXZZ Excision of Toe Nail, External Approach (ICD-10-PCS; 2017-02-27)
PROC: 0HBRXZZ Excision of Toe Nail, External Approach (ICD-10-PCS; 2017-02-27)
PROC: 0HBRXZZ Excision of Toe Nail, External Approach (ICD-10-PCS; 2017-02-27)
PROC: 0HBRXZZ Excision of Toe Nail, External Approach (ICD-10-PCS; 2017-02-27)
PROC: 0HBRXZZ Excision of Toe Nail, External Approach (ICD-10-PCS; 2017-02-27)
PROC: 0HBRXZZ Excision of Toe Nail, External Approach (ICD-10-PCS; 2017-02-27)
PROC: 0HBRXZZ Excision of Toe Nail, External Approach (ICD-10-PCS; 2017-02-27)
DX: E11.649 Type 2 diabetes mellitus with hypoglycemia without coma (principal); E87.2 Acidosis; N18.4 Chronic kidney disease, stage 4 (severe); I13.0 Hypertensive heart and chronic kidney disease with heart failure and stage 1 through stage 4 chronic kidney disease, or unspecified chronic kidney disease; I50.9 Heart failure, unspecified; I27.2 Other secondary pulmonary hypertension; I08.1 Rheumatic disorders of both mitral and tricuspid valves; E11.22 Type 2 diabetes mellitus with diabetic chronic kidney disease; L60.2 Onychogryphosis; J45.909 Unspecified asthma, uncomplicated; M19.90 Unspecified osteoarthritis, unspecified site; D64.9 Anemia, unspecified; Z87.891 Personal history of nicotine dependence; Z79.4 Long term (current) use of insulin; Z88.0 Allergy status to penicillin; Z86.73 Personal history of transient ischemic attack (TIA), and cerebral infarction without residual deficits

== ENCOUNTER 2017-08-29 19:56 | Inpatient (IN) | payer MEDICARE ==
[2017-08-29 19:57] VITALS: BMI 24.0
[2017-08-29] MEDS ORDERED: Sodium Chloride 0.9% 1,000 ML IV ONE (20:24)
[2017-08-29] MEDS ORDERED: Sodium Chloride 0.9% 500 ML IV ONE (20:24)
--- NOTE | 2017-08-29 20:32 | C.PDOC ---
History Of Present Illness 76yo female, presents to ER via EMS for evaluation of chest pain located in her anterior chest wall for the past day. Patient also reported to have elevated blood sugar levels at home, prompting ER visit. No shortness of breath, abdominal pain, nausea or vomiting. No other complaints. Time Seen by Provider: 08/29/17 20:00 Chief Complaint (Nursing): Chest Pain History Per: Patient, Family History/Exam Limitations: no limitations Onset/Duration Of Symptoms: Days Current Symptoms Are (Timing): Still Present Quality: "Pain" Past Medical History Reviewed: Historical Data, Nursing Documentation, Vital Signs Vital Signs: Last Vital Signs Temp 97.8 F 08/29/17 22:51 Pulse 90 08/29/17 22:51 Resp 22 08/29/17 22:51 BP 147/75 08/29/17 22:51 Pulse Ox 90 L 08/30/17 00:09 - Medical History PMH: Anemia, Arthritis, Asthma (Dx 15 yrs ago,does not use home o2 anymore), Diabetes, Fractures (Right ankle), HTN, Hypercholesterolemia, Peripheral Edema, Pneumonia (x2), End Stage Renal Disease, Chronic Kidney Disease, TIA (x3 about 20 yrs ago, 10 yrs ago, 7 yrs ago) Denies: Depression Surgical History: Endoscopy - [facility] Procedures EXCISION OF TOE NAIL, EXTERNAL APPROACH (02/25/17) INJECT/INFUSE NEC (07/22/14) INSERTION OF INFUSION DEV INTO SUP VENA CAVA, PERC APPROACH (10/20/16) TRANSFUSE NONAUT RED BLOOD CELLS IN PERIPH VEIN, PERC (10/20/16) Family History: States: Unknown Family Hx - Social History Hx Tobacco Use: No Hx Alcohol Use: No Hx Substance Use: No - Immunization History Hx Tetanus Toxoid Vaccination: No Hx Influenza Vaccination: No Hx Pneumococcal Vaccination: No Review Of Systems Except As Marked, All Systems Reviewed And Found Negative. Constitutional: Positive for: Other (elevated blood sugar). Negative for: Fever , Chills Cardiovascular: Positive for: Chest Pain Respiratory: Negative for: Shortness of Breath Gastrointestinal: Negative for: Nausea, Vomiting, Abdominal Pain Physical Exam - Physical Exam Appears: Non-toxic, No Acute Distress Skin: Normal Color, Warm, Dry Head: Atraumatic, Normacephalic Eye(s): bilateral: Normal Inspection Oral Mucosa: Moist Neck: Normal ROM, Supple Chest: Symmetrical Cardiovascular: Rhythm Regular, No Murmur Respiratory: Decreased Breath Sounds (bilateral lowere lung field), No Wheezing Gastrointestinal/Abdominal: Normal Exam, Soft, No Tenderness Neurological/Psych: Normal Motor, Normal Sensation, Other (confused) ED Course And Treatment - Laboratory Results Result Diagrams: 08/29/17 22:51 08/29/17 22:51 O2 Sat by Pulse Oximetry: 90 Medical Decision Making Medical Decision Making: Impression: Chest pain, elevated blood sugar Plan: -- EKG -- Labs -- CXR -- IV Fluids Disposition Discussed With : Christiano Chavez Doctor Will See Patient In The: Hospital Counseled Patient/Family Regarding: Diagnosis - Disposition Disposition: HOSPITALIZED Disposition Time: 00:07 Condition: GUARDED Forms: [facility] ([place]) - Clinical Impression Clinical Impression: Renal failure, Chest pain, Congestive heart failure, Pleural effusion, Hyperglycemia without ketosis, Pneumonia - Scribe Statement The provider has reviewed the documentation as recorded by the Scribe (Jaz Craig) Provider Attestation: All medical record entries made by the Scribe were at my direction and personally dictated by me. I have reviewed the chart and agree that the record accurately reflects my personal performance of the history, physical exam, medical decision making, and the department course for this patient. I have also personally directed, reviewed, and agree with the discharge instructions and disposition.
[2017-08-29] MEDS ORDERED: Sodium Chloride 0.9% 1,000 ML ONE (20:51)
[2017-08-29] MEDS ORDERED: (Novolin R) Insulin Human Regular 100 units/ml vial IV ONE (22:55)
[2017-08-29 22:57] LABS: BASO # 0.1 K/uL (0.0-0.2); BASO % 0.9 % (0.0-2.0); HEMOGLOBIN 10.3 g/dL (11.0-16.0); LYMPH # 0.6 K/uL (1.0-4.3); LYMPH % 3.8 % (20.0-40.0); MEAN CELL VOLUME 87.4 fL (81.0-99.0); MEAN CORPUSCULAR HEMOGLOBIN 27.7 pg (27.0-31.0); MEAN CORPUSCULAR HGB CONC 31.6 g/dL (33.0-37.0); MEAN PLATELET VOLUME 9.4 fL (7.2-11.7); MONO # 0.8 K/uL (0.0-0.8); MONO % 4.8 % (0.0-10.0); NEUT # 14.8 K/uL (1.8-7.0); NEUT % 90.5 % (50.0-75.0); PLATELET COUNT 156 K/uL (130-400); RBC 3.72 Mil/uL (3.80-5.20); RED CELL DISTRIBUTION WIDTH 16.7 % (11.5-14.5); WHITE BLOOD COUNT 16.3 K/uL (4.8-10.8)
[2017-08-29] MEDS ORDERED: (Novolin R) Insulin Human Regular 100 units/ml vial ONE (22:58)
--- NOTE | 2017-08-29 23:11 | CT ---
EXAM: CT Chest Without Intravenous Contrast EXAM DATE/TIME: 08/29/2017 9:31 PM CLINICAL HISTORY: 76 years old, female; Pain and signs and symptoms; Shortness of breath; Chest pain; Type not specified; Additional info: Chest pain/ SOB TECHNIQUE: Axial computed tomography images of the chest without intravenous contrast. All CT scans at this facility use one or more dose reduction techniques, viz.: automated exposure control; ma/kV adjustment per patient size (including targeted exams where dose is matched to indication; i.e. head); or iterative reconstruction technique. Coronal and sagittal reformatted images were created and reviewed. COMPARISON: No relevant prior studies available. FINDINGS: LUNGS: Areas of dense consolidation in the lungs bilaterally, greater on the left. Most likely, the findings represent compressive atelectasis related to the bilateral pleural effusions, although superimposed pneumonia in the left lung is difficult to exclude. There is also mild, diffuse ground glass density in the left lung apex. Mild emphysematous changes. PLEURAL SPACE: Bilateral pleural effusions, moderate to large on the left and moderate on the right. These do not appear significantly loculated. No pneumothorax is seen. HEART: Heart appears moderately enlarged. Coronary artery calcification. No evidence of significant pericardial effusion. BONES/JOINTS: Bony structures appear demineralized. SOFT TISSUES: Mild, diffuse subcutaneous edema/anasarca. Bilateral breast calcifications. These appear dense and smoothly marginated, and are likely benign calcifications, however, recommend correlation with mammography findings, on a nonemergent basis. VASCULATURE: Diffuse atherosclerotic calcification of the thoracic aorta. Exam is nondiagnostic for aortic dissection, secondary to unenhanced technique. No evidence of thoracic aortic aneurysm. LYMPH NODES: No evidence of diffuse lymphadenopathy. UPPER ABDOMEN: Postoperative changes in the abdomen. Multiple surgical clips are noted in the left abdomen, and there is surgical suture in the descending colon. IMPRESSION: - Bilateral pleural effusions, moderate to large on the left and moderate on the right. - Areas of consolidation in the left lung, most likely representing compressive atelectasis, although superimposed pneumonia is not excluded. Recommend clinical correlation. - Mild, diffuse subcutaneous edema/anasarca. - Otherwise, no evidence of significant acute process. - Cardiomegaly. - Bilateral breast calcifications. See recommendations above. - See above for remaining findings.
[2017-08-29 23:31] LABS: LYMPHOCYTE 5 % (20-40); MONOCYTE 3 % (0-10); NEUTROPHIL 92 % (50-75); TOTAL CELLS COUNTED 100
[2017-08-29 23:32] LABS: VENOUS BLOOD GAS BASE EXCESS -13.8 mmol/L (0.0-2.0); VENOUS BLOOD GAS PCO2 40 mmHg (40-60); VENOUS BLOOD GAS PO2 16 mm/Hg (30-55); VENOUS BLOOD PH 7.16 (7.32-7.43)
[2017-08-29 23:33] LABS: PLATELET ESTIMATE NORMAL (NORMAL)
[2017-08-29 23:37] LABS: ALBUMIN 3.6 g/dL (3.5-5.0); ALT/SGPT 54 U/L (9-52); AST/SGOT 193 U/L (14-36); BLOOD UREA NITROGEN 74 mg/dL (7-17); GFR AFRICAN-AMERICAN 11; GFR NON-AFRICAN AMERICAN 9
[2017-08-29] MEDS ORDERED: Albuterol 0.042% Inhal Sol (1.25 mg/3 mL) UD IH STA (23:43)
[2017-08-29] MEDS ORDERED: Sodium Bicarbonate (8.4%) 50 Meq Syringe IVP ONE (23:45)
[2017-08-29] MEDS ORDERED: Azithromycin 500mg/250ML NS 500 MG/250 ML BAG IV STA (23:47)
[2017-08-29] MEDS ORDERED: Moxifloxacin IV 400mg/250ml NS 400 MG/250 ML BAG IVPB ONE ×2 (23:47→23:57)
[2017-08-29 23:56] LABS: B-TYPE NATRIURETIC PEPTIDE 98700 pg/mL (0-900)
[2017-08-29] MEDS ORDERED: Sodium Bicarbonate (8.4%) 50 Meq Syringe ONE (23:57)
[2017-08-30] MEDS ORDERED: Albuterol 0.042% Inhal Sol (1.25 mg/3 mL) UD ONE (00:01)
--- NOTE | 2017-08-30 00:23 | CP.CCUPN ---
CCU Subjective - Physician Review Subjective (Free Text): 08/30/17 02:21 The Patient was seen and examined at the bedside, Medical records reviewed, and management issues were discussed and formulated with the house staff. 76 years old female With PMHx of PMH controlled Asthma (Dx 15 yrs ago), HTN, Hypercholesterolemia, Diabetes, Peripheral Edema, Pneumonia (x2), Chronic Kidney Disease (S/P AV fistula, not on dialysis yet), TIA (x3 about 20 yrs ago, 10 yrs ago, 7 yrs ago), Anemia, Arthritis ad Fractures (Right ankle) Who presents to ER via EMS for evaluation of chest pain located in her anterior chest wall for the past day. Patient has been having elevated blood sugar levels at home since yesterday despite receiving SQ insulin, plus daughter noted that Pt is confused and not being herself In the Er she was noted to be critically ill, confused drawsy, Denies chest pain at this time No fever/chills Labs markedly abnormal for severe metabolic acidosis, Troponin elevated to 103 with worsening renal function ABG PH 7.16, Lactate of 2.5 EKG NSR with no acute ST or T wave changes, CXR revealed acute pulmonary edema, B/L effusion Pt received calcium gluconate, sodium Bicard, Iv insulin Also ASA, crestor and started on Heparin Drip Critical Care Time Spent (in minutes): 56 CCU Objective - Vital Signs / Intake & Output Vital Signs (Last 4 hours): Vital Signs Temp Pulse Resp BP Pulse Ox 08/30/17 00:10 90 L 08/29/17 22:51 97.8 F 90 22 147/75 100 Intake and Output (Last 8hrs): Intake & Output 08/29/17 08/29/17 08/30/17 14:59 22:59 06:59 Weight 130 lb - Physical Exam Physical Exam Limitations: Positive for: Altered Mental Status, Clinical Condition, Uncooperative Head: Positive for: Atraumatic, Normocephalic. Negative for: Tenderness, Contusion, Swelling Pupils: Positive for: PERRL. Negative for: Sluggish, Non-Reactive Extroacular Muscles: Positive for: EOMI Conjunctiva: Positive for: Normal Mouth: Positive for: Dry Pharnyx: Positive for: Normal Nose (External): Positive for: Atraumatic Neck: Positive for: Normal Range of Motion, Trachea Midline. Negative for: Meningeal Signs, MIDLINE TENDERNESS, Paraspinal Tenderness, JVD, Lymphadenopathy Respiratory/Chest: Positive for: Good Air Exchange, Decreased Breath Sounds (on bilateral bases). Negative for: Accessory Muscle Use, Wheezes Cardiovascular: Positive for: Regular Rate and Rhythm, Murmurs (Ejection systolic ), Normal S1, S2, Peripheal Pulses Present. Negative for: Tachycardic , Bradycardic Abdomen: Positive for: Normal Bowel Sounds. Negative for: Tenderness, Distention, Peritoneal Signs Upper Extremity: Positive for: NORMAL PULSES, Capillary Refill < 2s, Other. Negative for: Cyanosis, Edema Lower Extremity: Positive for: Normal Inspection, NORMAL PULSES. Negative for: Edema, CALF TENDERNESS - Medications Active Medications: Active Medications Generic Name Dose Route Start Last Admin Trade Name Freq PRN Reason Stop Dose Admin Sodium Chloride 1,000 mls @ 100 mls/hr 08/29/17 20:24 08/29/17 22:50 Sodium Chloride 0.9% IV 08/30/17 06:23 100 mls/hr .Q10H ONE Administration Azithromycin 500 mg in 250 mls @ 166.667 mls/hr 08/29/17 23:47 Zithromax 500mg In Ns Addvantage IV 08/30/17 01:16 STAT STA Moxifloxacin HCl 400 mg in 250 mls @ 167 mls/hr 08/29/17 23:47 08/30/17 00:07 Avelox Iv 400mg/250ml Ns IVPB 08/30/17 01:16 167 mls/hr ONCE ONE Administration - Patient Studies Lab Studies: Lab Studies 08/29/17 08/29/17 08/29/17 Range/Units 23:25 22:51 22:51 WBC (4.8-10.8) K/uL RBC (3.80-5.20) Mil/uL Hgb (11.0-16.0) g/dL Hct (34.0-47.0) % MCV (81.0-99.0) fL MCH (27.0-31.0) pg MCHC (33.0-37.0) g/dL RDW (11.5-14.5) % Plt Count (130-400) K/uL MPV (7.2-11.7) fL Neut % (Auto) (50.0-75.0) % Lymph % (Auto) (20.0-40.0) % [place] % (Auto) (0.0-10.0) % Eos % (Auto) (0.0-4.0) % Baso % (Auto) (0.0-2.0) % Neut # (Auto) (1.8-7.0) K/uL Lymph # (Auto) (1.0-4.3) K/uL [place] # (Auto) (0.0-0.8) K/uL Eos # (Auto) (0.0-0.7) K/uL Baso # (Auto) (0.0-0.2) K/uL Neutrophils % (Manual) (50-75) % Lymphocytes % (Manual) (20-40) % Monocytes % (Manual) (0-10) % Platelet Estimate (NORMAL) D-Dimer, Quantitative 4388 H (0-243) ng/mlDDU pO2 16 L (30-55) mm/Hg VBG pH 7.16 L* (7.32-7.43) VBG pCO2 40 (40-60) mmHg VBG HCO3 11.9 mmol/L VBG Total CO2 15.5 L (22-28) mmol/L VBG O2 Sat (Calc) 35.2 L (40-65) % VBG Base Excess -13.8 L (0.0-2.0) mmol/L VBG Potassium 5.8 H (3.6-5.2) mmol/L Glucose 562 H* D (65-105) mg/dl Lactate 2.5 H (0.7-2.1) mmol/L Crit Value Called To Willow dobson/rn Crit Value Called By Shoaib anderson/rt Crit Value Read Back Y Blood Gas Notified Time 2335 Sodium 139.0 137 (132-148) mmol/L Potassium 6.5 H* D (3.6-5.2) mmol/L Chloride 103.0 105 (98-107) mmol/L Carbon Dioxide 11 L* D (22-30) mmol/L Anion Gap 28 H (10-20) BUN 74 H (7-17) mg/dL Creatinine 4.7 H (0.7-1.2) mg/dL Est GFR ( Amer) 11 Est GFR (Non-Af Amer) 9 POC Glucose (mg/dL) (65-110) mg/dL Random Glucose 559 H* D (65-105) mg/dL Calcium 8.0 L (8.6-10.4) mg/dl Total Bilirubin 1.6 H (0.2-1.3) mg/dL AST 193 H (14-36) U/L ALT 54 H D (9-52) U/L Alkaline Phosphatase 96 (38-126) U/L Troponin I 103.0000 H* (0.00-0.120) ng/mL NT-Pro-B Natriuret Pep 60922 H (0-900) pg/mL Total Protein 7.3 (6.3-8.3) g/dL Albumin 3.6 (3.5-5.0) g/dL Globulin 3.7 (2.2-3.9) gm/dL Albumin/Globulin Ratio 1.0 (1.0-2.1) Venous Blood Potassium 5.8 H (3.6-5.2) mmol/L Serum Ketones Negative (NEGATIVE) 08/29/17 08/29/17 Range/Units 22:51 22:18 WBC 16.3 H D (4.8-10.8) K/uL RBC 3.72 L (3.80-5.20) Mil/uL Hgb 10.3 L (11.0-16.0) g/dL Hct 32.5 L (34.0-47.0) % MCV 87.4 (81.0-99.0) fL MCH 27.7 (27.0-31.0) pg MCHC 31.6 L (33.0-37.0) g/dL RDW 16.7 H (11.5-14.5) % Plt Count 156 (130-400) K/uL MPV 9.4 (7.2-11.7) fL Neut % (Auto) 90.5 H (50.0-75.0) % Lymph % (Auto) 3.8 L (20.0-40.0) % [place] % (Auto) 4.8 (0.0-10.0) % Eos % (Auto) 0.0 (0.0-4.0) % Baso % (Auto) 0.9 (0.0-2.0) % Neut # (Auto) 14.8 H (1.8-7.0) K/uL Lymph # (Auto) 0.6 L (1.0-4.3) K/uL [place] # (Auto) 0.8 (0.0-0.8) K/uL Eos # (Auto) 0.0 (0.0-0.7) K/uL Baso # (Auto) 0.1 (0.0-0.2) K/uL Neutrophils % (Manual) 92 H (50-75) % Lymphocytes % (Manual) 5 L (20-40) % Monocytes % (Manual) 3 (0-10) % Platelet Estimate Normal (NORMAL) D-Dimer, Quantitative (0-243) ng/mlDDU pO2 (30-55) mm/Hg VBG pH (7.32-7.43) VBG pCO2 (40-60) mmHg VBG HCO3 mmol/L VBG Total CO2 (22-28) mmol/L VBG O2 Sat (Calc) (40-65) % VBG Base Excess (0.0-2.0) mmol/L VBG Potassium (3.6-5.2) mmol/L Glucose (65-105) mg/dl Lactate (0.7-2.1) mmol/L Crit Value Called To Crit Value Called By Crit Value Read Back Blood Gas Notified Time Sodium (132-148) mmol/L Potassium (3.6-5.2) mmol/L Chloride (98-107) mmol/L Carbon Dioxide (22-30) mmol/L Anion Gap (10-20) BUN (7-17) mg/dL Creatinine (0.7-1.2) mg/dL Est GFR ( Amer) Est GFR (Non-Af Amer) POC Glucose (mg/dL) 467 H* (65-110) mg/dL Random Glucose (65-105) mg/dL Calcium (8.6-10.4) mg/dl Total Bilirubin (0.2-1.3) mg/dL AST (14-36) U/L ALT (9-52) U/L Alkaline Phosphatase (38-126) U/L Troponin I (0.00-0.120) ng/mL NT-Pro-B Natriuret Pep (0-900) pg/mL Total Protein (6.3-8.3) g/dL Albumin (3.5-5.0) g/dL Globulin (2.2-3.9) gm/dL Albumin/Globulin Ratio (1.0-2.1) Venous Blood Potassium (3.6-5.2) mmol/L Serum Ketones (NEGATIVE) Laboratory Results - last 24 hr 08/29/17 08/29/17 08/29/17 22:18 22:51 22:51 WBC 16.3 H D RBC 3.72 L Hgb 10.3 L Hct 32.5 L MCV 87.4 MCH 27.7 MCHC 31.6 L RDW 16.7 H Plt Count 156 MPV 9.4 Neut % (Auto) 90.5 H Lymph % (Auto) 3.8 L [place] % (Auto) 4.8 Eos % (Auto) 0.0 Baso % (Auto) 0.9 Neut # (Auto) 14.8 H Lymph # (Auto) 0.6 L [place] # (Auto) 0.8 Eos # (Auto) 0.0 Baso # (Auto) 0.1 Neutrophils % (Manual) 92 H Lymphocytes % (Manual) 5 L Monocytes % (Manual) 3 Platelet Estimate Normal D-Dimer, Quantitative 4388 H pO2 VBG pH VBG pCO2 VBG HCO3 VBG Total CO2 VBG O2 Sat (Calc) VBG Base Excess VBG Potassium Glucose Lactate Crit Value Called To Crit Value Called By Crit Value Read Back Blood Gas Notified Time Sodium Potassium Chloride Carbon Dioxide Anion Gap BUN Creatinine Est GFR ( Amer) Est GFR (Non-Af Amer) POC Glucose (mg/dL) 467 H* Random Glucose Calcium Total Bilirubin AST ALT Alkaline Phosphatase Troponin I NT-Pro-B Natriuret Pep Total Protein Albumin Globulin Albumin/Globulin Ratio Venous Blood Potassium Serum Ketones 08/29/17 08/29/17 22:51 23:25 WBC RBC Hgb Hct MCV MCH MCHC RDW Plt Count MPV Neut % (Auto) Lymph % (Auto) [place] % (Auto) Eos % (Auto) Baso % (Auto) Neut # (Auto) Lymph # (Auto) [place] # (Auto) Eos # (Auto) Baso # (Auto) Neutrophils % (Manual) Lymphocytes % (Manual) Monocytes % (Manual) Platelet Estimate D-Dimer, Quantitative pO2 16 L VBG pH 7.16 L* VBG pCO2 40 VBG HCO3 11.9 VBG Total CO2 15.5 L VBG O2 Sat (Calc) 35.2 L VBG Base Excess -13.8 L VBG Potassium 5.8 H Glucose 562 H* D Lactate 2.5 H Crit Value Called To Willow dobson/rn Crit Value Called By Shoaib anderson/rt Crit Value Read Back Y Blood Gas Notified Time 2335 Sodium 137 139.0 Potassium 6.5 H* D Chloride 105 103.0 Carbon Dioxide 11 L* D Anion Gap 28 H BUN 74 H Creatinine 4.7 H Est GFR ( Amer) 11 Est GFR (Non-Af Amer) 9 POC Glucose (mg/dL) Random Glucose 559 H* D Calcium 8.0 L Total Bilirubin 1.6 H AST 193 H ALT 54 H D Alkaline Phosphatase 96 Troponin I 103.0000 H* NT-Pro-B Natriuret Pep 79517 H Total Protein 7.3 Albumin 3.6 Globulin 3.7 Albumin/Globulin Ratio 1.0 Venous Blood Potassium 5.8 H Serum Ketones Negative EKG/Cardiology Studies: Cardiology / EKG Studies 08/29/17 20:10 ELECTROCARDIOGRAM Stat Comment: Mode Of Transportation: BED Reason For Exam: chest pain 08/29/17 20:22 ELECTROCARDIOGRAM Stat Comment: Mode Of Transportation: BED Reason For Exam: chest pain Fingerstick Blood Sugar Results: 467 Review of Systems - Review of Systems Systems not reviewed;Unavailable: Altered Mental Status - Constitutional Constitutional: Weakness, Malaise. absent: Fever, Chills, Sweats - Cardiovascular Cardiovascular: Chest Pain - Respiratory Respiratory: Cough, Dyspnea, Dyspnea on Exertion. absent: Hemoptysis - Gastrointestinal Gastrointestinal: absent: Abdominal Pain, Hematemesis, Melena, Nausea, Vomiting Critical Care Progress Note - Extremities/Vascular Does the Patient need a Central Venous Catheter?: No Does the Patient have a [place] Catheter?: No Does the Patient need a [place] Catheter?: No Assessment/Plan (1) NSTEMI (non-ST elevated myocardial infarction) Current Visit: Yes Status: Acute Comment: Troponin elevated 103, EKG with no acute changes, patient is chest pain free NSREMI Vs Myopcarditis Cardiology consult Aspirin 81mg daily Crestor 5mg PO HS Heparin Drip F/U serial TROP, and EKG ECHO (2) Acute on chronic renal failure Current Visit: Yes Status: Acute Comment: - Acute kidney injury with Hyperkalemia, mostly prerenal disease also sec to sepsis and cardioreal need to R/O obstruction. - Metabolic acidosis (anion gap) - Hyperkalemia, EKG without peaked t-waves. - Repeat Labs, EKG, lactic acid, CPK, phosphate - Place a huerta and monitor urine outpu - po bicarbonate - Renal (low K) diet - Cont outpatient meds (adjust for GFR) (3) Hyperglycemia without ketosis Current Visit: Yes Status: Acute Comment: Insulin drip Acch check Q 1H (4) Metabolic acidosis Current Visit: Yes Status: Acute (5) Pleural effusion Current Visit: Yes Status: Acute (6) Pneumonia Current Visit: Yes Status: Acute Comment: IV Vanco and Avelox F/U Blood Cx (7) Altered mental status Current Visit: No Status: Acute (8) Congestive heart failure Current Visit: Yes Status: Acute
[2017-08-30] MEDS ORDERED: Insulin Human Regular 100 UNIT in Sodium Chloride 0.9% 99 ML IV SCH (01:00)
--- NOTE | 2017-08-30 01:39 | CP.PCM.HP ---
<Marco Moore Zunilda - Last Filed: 08/30/17 03:47> History of Present Illness - History of Present Illness History of Present Illness: All history was obtained from medical record and patient's daughter at bedside, secondary to patient's mental status. CC: altered mental status HPI: Patient is a 76 year old female with a PMH significant for CKD stage V (not on dialysis), Diastolic CHF, DM, HTN, hypercholesterolemia , ME (many years ago, no known intervention), TIA x 3 (years ago), colon CA who presents for altered mental status. Patient's son noted her blood sugar to be high today (500+) and gave her insulin. Patient's daughter came to check on her at 4pm and noted her to be " not acting right" and "looking at her funny." Blood sugar was noted to be 500+ at that time, and patient's daughter decided to bring her to the hospital. Daughter states that patient began complaining of chest pain yesterday, accompanied by chills, abdominal pain and dry cough. No fever at home. She also notes recent weakness, headache, dizziness, and decreased appetite. Patient had an AV graft placed in May 2016 but she has never had dialysis (unclear why) . Patient still makes urine; daughter states that she last urinated and had a bowel movement this morning. Daughter denies any recent illness, sick contacts, vomiting, melena/hematochezia , bruising/bleeding, leg swelling. PMD: [place] PMH: ESRD (not yet on dialysis), DM, HTN, hypercholesterolemia, ME (many years ago, no known intervention), TIA x 3 (years ago), PAD, CHF, asthma, colon CA in 2009 (treated with chemotherapy and surgery), arthritis PSH: unknown surgery for colon CA (2009); endoscopy Medications: Aspirin 81mg PO daily, Amlodipine (Norvasc) 10mg PO daily, Lisinopril (Zestril) 10mg PO daily, Labetalol Hydrochloride (Normodyne) 300mg PO BID, Lantus 15 unit SC HS, Novolog 3 unit SC TIDAC, Furosemide (Lasix) 40mg PO daily, Ferrous Sulfate (Feosol) 325mg PO BID, Calcitriol (Rocaltrol) 0.25 mcg PO MWF Allergies: Penicillin (rash) Family History: Limited; Mother- of cancer; Father- for unknown reason. Social History: Lives alone in [place] (son and daughter visit daily to assist); ambulates without assistance; at baseline is able to walk around and cook without difficulty; retired; former smoker (25+ pack years); no current ETOH use; no current recreational drug use Code status: Full Code No advance directive In the event of emergency, daughter Cyril Stauffer ([phone]) will make healthcare decisions. Patient's son is also involved in her care: Deangelo Stauffer ) Present on Admission - Present on Admission Any Indicators Present on Admission: No Review of Systems - Review of Systems Systems not reviewed;Unavailable: Altered Mental Status Past Patient History - Infectious Disease Hx of Infectious Diseases: None - Tetanus Immunizations Tetanus Immunization: Unknown - Past Medical History & Family History Past Medical History?: Yes - Past Social History Smoking Status: Former Smoker - CARDIAC Hx Hypercholesterolemia: Yes Hx Hypertension: Yes Hx Peripheral Edema: Yes - PULMONARY Hx Asthma: Yes (Dx 15 yrs ago,does not use home o2 anymore) Hx Pneumonia: Yes (x2) - NEUROLOGICAL Hx Transient Ischemic Attacks (TIA): Yes (x3 about 20 yrs ago, 10 yrs ago, 7 yrs ago) - HEENT Hx HEENT Problems: Yes Hx Cataracts: Yes - RENAL Hx Chronic Kidney Disease: Yes - ENDOCRINE/METABOLIC Hx Diabetes Mellitus Type 1: Yes - HEMATOLOGICAL/ONCOLOGICAL Hx Anemia: Yes - INTEGUMENTARY Hx Dermatological Problems: No - MUSCULOSKELETAL/RHEUMATOLOGICAL Hx Arthritis: Yes Hx Fractures: Yes (Right ankle) - GASTROINTESTINAL Hx Gastrointestinal Disorders: Yes Other/Comment: Hx colon cancer - GENITOURINARY/GYNECOLOGICAL Hx Genitourinary Disorders: Yes Other/Comment: Colon CA - PSYCHIATRIC Hx Depression: No Hx Substance Use: No - SURGICAL HISTORY Hx Cataract Extraction: Yes (LEFT) - ANESTHESIA Hx Anesthesia: Yes Hx Anesthesia Reactions: No Hx Malignant Hyperthermia: No Meds Allergies/Adverse Reactions: Allergies Allergy/AdvReac Type Severity Reaction Status Date / Time Penicillins Allergy Intermediate RASH Verified 08/29/17 20:11 Physical Exam - Additional Findings Additional findings: Physical Exam: Gen: drowsy, arousable to voice and touch but quickly falls asleep HEENT: NCAT, mucosal membranes dry Skin: (+) swelling of eyelids; (+) multiple hypopigmented areas to abdomen; (+) leathery skin to bilateral legs and feet. Cardio: tachycardic; +S1, S2; 2/6 systolic ejection murmur to right sternal border Resp: diffuse wheezing and rales, most prominent in bases bilaterally Abd: Soft, nondistended. Bowel sounds present. Midline vertical healed surgical scar. Extremities: Radial pulses present bilaterally. DP/PT pulses intact but weak. Lower extremities cool to touch. Neuro: awake but not alert; not able to follow commands Results - Vital Signs Recent Vital Signs: Last Vital Signs Temp 98 F 08/30/17 00:47 Pulse 91 H 08/30/17 00:47 Resp 23 08/30/17 00:47 BP 105/56 L 08/30/17 00:47 Pulse Ox 100 08/30/17 00:47 - Labs Result Diagrams: 08/29/17 22:51 08/29/17 22:51 Labs: Laboratory Results - last 24 hr 08/29/17 08/29/17 08/29/17 22:18 22:51 22:51 WBC 16.3 H D RBC 3.72 L Hgb 10.3 L Hct 32.5 L MCV 87.4 MCH 27.7 MCHC 31.6 L RDW 16.7 H Plt Count 156 MPV 9.4 Neut % (Auto) 90.5 H Lymph % (Auto) 3.8 L [place] % (Auto) 4.8 Eos % (Auto) 0.0 Baso % (Auto) 0.9 Neut # (Auto) 14.8 H Lymph # (Auto) 0.6 L [place] # (Auto) 0.8 Eos # (Auto) 0.0 Baso # (Auto) 0.1 Neutrophils % (Manual) 92 H Lymphocytes % (Manual) 5 L Monocytes % (Manual) 3 Platelet Estimate Normal D-Dimer, Quantitative 4388 H pO2 VBG pH VBG pCO2 VBG HCO3 VBG Total CO2 VBG O2 Sat (Calc) VBG Base Excess VBG Potassium Glucose Lactate Crit Value Called To Crit Value Called By Crit Value Read Back Blood Gas Notified Time Sodium Potassium Chloride Carbon Dioxide Anion Gap BUN Creatinine Est GFR ( Amer) Est GFR (Non-Af Amer) POC Glucose (mg/dL) 467 H* Random Glucose Calcium Total Bilirubin AST ALT Alkaline Phosphatase Troponin I NT-Pro-B Natriuret Pep Total Protein Albumin Globulin Albumin/Globulin Ratio Venous Blood Potassium Serum Ketones 08/29/17 08/29/17 08/30/17 22:51 23:25 01:18 WBC RBC Hgb Hct MCV MCH MCHC RDW Plt Count MPV Neut % (Auto) Lymph % (Auto) [place] % (Auto) Eos % (Auto) Baso % (Auto) Neut # (Auto) Lymph # (Auto) [place] # (Auto) Eos # (Auto) Baso # (Auto) Neutrophils % (Manual) Lymphocytes % (Manual) Monocytes % (Manual) Platelet Estimate D-Dimer, Quantitative pO2 16 L VBG pH 7.16 L* VBG pCO2 40 VBG HCO3 11.9 VBG Total CO2 15.5 L VBG O2 Sat (Calc) 35.2 L VBG Base Excess -13.8 L VBG Potassium 5.8 H Glucose 562 H* D Lactate 2.5 H Crit Value Called To Willow dobson/rn Crit Value Called By Shoaib anderson/rt Crit Value Read Back Y Blood Gas Notified Time 2335 Sodium 137 139.0 Potassium 6.5 H* D Chloride 105 103.0 Carbon Dioxide 11 L* D Anion Gap 28 H BUN 74 H Creatinine 4.7 H Est GFR ( Amer) 11 Est GFR (Non-Af Amer) 9 POC Glucose (mg/dL) 362 H Random Glucose 559 H* D Calcium 8.0 L Total Bilirubin 1.6 H AST 193 H ALT 54 H D Alkaline Phosphatase 96 Troponin I 103.0000 H* NT-Pro-B Natriuret Pep 85277 H Total Protein 7.3 Albumin 3.6 Globulin 3.7 Albumin/Globulin Ratio 1.0 Venous Blood Potassium 5.8 H Serum Ketones Negative Assessment & Plan (1) NSTEMI (non-ST elevated myocardial infarction) Assessment and Plan: Troponin ELEVATED 103 EKG NSR, no ST or T wave changes Cardiology consult, Dr Houston Aspirin 325mg PO ONCE Heparin Drip - Cardiac Protocol Nitorglycerin 0.4mg SL Q5M PRN Crestor 5mg PO HS F/U serial ROMIs Status: Acute (2) Metabolic acidosis Assessment and Plan: W/ respiratory compensation Likely due to elevated Lactate, Uremia, Renal Failure Ketones NEGATIVE Sodium Bicarb 8.4% 50meq given in ED Calcium gluconate 4.65meq IV ONCE Status: Acute (3) Chronic kidney disease Assessment and Plan: Per daughter, patient still able to make urine Stage V CKD Patient with placement of left AV graft in past (05/2016) which was thrombosed and repaired in (08/2016) Nephrology consult, Dr Chriss Hebert Kayexalate 30g given ONCE At home patient takes calcitriol 0.25mcg MWF and lasix 40mg QD Status: Acute (4) Diastolic CHF Assessment and Plan: Last ECHO 10/15: Aortic and Mitral Valve severely thickened * Endocarditis was ruled out at that time W/ tricuspid regurgitation and pulmonary HTN Home meds include amlodipine 10mg, lisinopril 10mg, labetalol 300mg BID, aspirin 81mg, lasix 40mg Status: Acute (5) Pleural effusion Assessment and Plan: CT Chest: "Bilateral pleural effusions, moderate to large on the left and moderate on the right. Areas of consolidation in the left lung, most likely representing compressive atelectasis, although superimposed pneumonia is not excluded." In ED patient received Moxifloxacin 400mg IV ONCE, Azithromycin 500mg IV ONCE, Lasix 40mg IV ONCE and Albuterol INH F/U Blood Cx Status: Acute (6) Insulin dependent diabetes mellitus Assessment and Plan: Ketones NEGATIVE At home patient takes Lantus 15u SC HS and Novolog 3u SC TIDAC Status: Acute (7) Anemia Assessment and Plan: Secondary to CKD Stage V H/H stable from prior admissions Monitor for drops Status: Chronic (8) Hypertension Assessment and Plan: BP borderline low At home patient takes norvasc 10mg, lisinopril 10mg Status: Chronic (9) Prophylactic measure Assessment and Plan: On Heparin Drip NPO for now Status: Acute <Christiano Chavez - Last Filed: 08/30/17 06:40> Results - Vital Signs Recent Vital Signs: Last Vital Signs Temp 98 F 08/30/17 00:47 Pulse 101 H 08/30/17 06:00 Resp 18 08/30/17 06:00 BP 133/76 08/30/17 05:50 Pulse Ox 100 08/30/17 06:00 - Labs Result Diagrams: 08/30/17 03:49 08/30/17 03:49 Labs: Laboratory Results - last 24 hr 08/29/17 08/29/17 08/29/17 22:18 22:51 22:51 WBC 16.3 H D RBC 3.72 L Hgb 10.3 L Hct 32.5 L MCV 87.4 MCH 27.7 MCHC 31.6 L RDW 16.7 H Plt Count 156 MPV 9.4 Neut % (Auto) 90.5 H Lymph % (Auto) 3.8 L [place] % (Auto) 4.8 Eos % (Auto) 0.0 Baso % (Auto) 0.9 Neut # (Auto) 14.8 H Lymph # (Auto) 0.6 L [place] # (Auto) 0.8 Eos # (Auto) 0.0 Baso # (Auto) 0.1 Neutrophils % (Manual) 92 H Lymphocytes % (Manual) 5 L Monocytes % (Manual) 3 Platelet Estimate Normal Hypochromasia (manual) Poikilocytosis (manual Anisocytosis (manual) Ovalocytes PT INR APTT D-Dimer, Quantitative 4388 H pO2 VBG pH VBG pCO2 VBG HCO3 VBG Total CO2 VBG O2 Sat (Calc) VBG Base Excess VBG Potassium Glucose Lactate Crit Value Called To Crit Value Called By Crit Value Read Back Blood Gas Notified Time Sodium Potassium Chloride Carbon Dioxide Anion Gap BUN Creatinine Est GFR ( Amer) Est GFR (Non-Af Amer) POC Glucose (mg/dL) 467 H* Random Glucose Lactic Acid Calcium Phosphorus Magnesium Total Bilirubin AST ALT Alkaline Phosphatase Troponin I NT-Pro-B Natriuret Pep Total Protein Albumin Globulin Albumin/Globulin Ratio Triglycerides Cholesterol LDL Cholesterol Direct HDL Cholesterol Venous Blood Potassium Serum Ketones 08/29/17 08/29/17 08/30/17 22:51 23:25 01:18 WBC RBC Hgb Hct MCV MCH MCHC RDW Plt Count MPV Neut % (Auto) Lymph % (Auto) [place] % (Auto) Eos % (Auto) Baso % (Auto) Neut # (Auto) Lymph # (Auto) [place] # (Auto) Eos # (Auto) Baso # (Auto) Neutrophils % (Manual) Lymphocytes % (Manual) Monocytes % (Manual) Platelet Estimate Hypochromasia (manual) Poikilocytosis (manual Anisocytosis (manual) Ovalocytes PT INR APTT D-Dimer, Quantitative pO2 16 L VBG pH 7.16 L* VBG pCO2 40 VBG HCO3 11.9 VBG Total CO2 15.5 L VBG O2 Sat (Calc) 35.2 L VBG Base Excess -13.8 L VBG Potassium 5.8 H Glucose 562 H* D Lactate 2.5 H Crit Value Called To Willow dobson/rn Crit Value Called By Shoaib anderson/rt Crit Value Read Back Y Blood Gas Notified Time 2335 Sodium 137 139.0 Potassium 6.5 H* D Chloride 105 103.0 Carbon Dioxide 11 L* D Anion Gap 28 H BUN 74 H Creatinine 4.7 H Est GFR ( Amer) 11 Est GFR (Non-Af Amer) 9 POC Glucose (mg/dL) 362 H Random Glucose 559 H* D Lactic Acid Calcium 8.0 L Phosphorus Magnesium Total Bilirubin 1.6 H AST 193 H ALT 54 H D Alkaline Phosphatase 96 Troponin I 103.0000 H* NT-Pro-B Natriuret Pep 29943 H Total Protein 7.3 Albumin 3.6 Globulin 3.7 Albumin/Globulin Ratio 1.0 Triglycerides Cholesterol LDL Cholesterol Direct HDL Cholesterol Venous Blood Potassium 5.8 H Serum Ketones Negative 08/30/17 08/30/17 08/30/17 02:01 02:17 03:49 WBC 15.7 H RBC 3.48 L Hgb 9.6 L Hct 29.6 L MCV 85.2 D MCH 27.7 MCHC 32.5 L RDW 16.2 H Plt Count 143 MPV 8.9 Neut % (Auto) 90.5 H Lymph % (Auto) 3.4 L [place] % (Auto) 5.6 Eos % (Auto) 0.0 Baso % (Auto) 0.5 Neut # (Auto) 14.2 H Lymph # (Auto) 0.5 L [place] # (Auto) 0.9 H Eos # (Auto) 0.0 Baso # (Auto) 0.1 Neutrophils % (Manual) 93 H Lymphocytes % (Manual) 4 L Monocytes % (Manual) 3 Platelet Estimate Normal Hypochromasia (manual) Slight Poikilocytosis (manual Slight Anisocytosis (manual) Slight Ovalocytes Slight PT 14.6 H INR 1.3 APTT 29 D-Dimer, Quantitative pO2 VBG pH VBG pCO2 VBG HCO3 VBG Total CO2 VBG O2 Sat (Calc) VBG Base Excess VBG Potassium Glucose Lactate Crit Value Called To Crit Value Called By Crit Value Read Back Blood Gas Notified Time Sodium Potassium Chloride Carbon Dioxide Anion Gap BUN Creatinine Est GFR ( Amer) Est GFR (Non-Af Amer) POC Glucose (mg/dL) 374 H Random Glucose Lactic Acid Calcium Phosphorus Magnesium Total Bilirubin AST ALT Alkaline Phosphatase Troponin I NT-Pro-B Natriuret Pep Total Protein Albumin Globulin Albumin/Globulin Ratio Triglycerides Cholesterol LDL Cholesterol Direct HDL Cholesterol Venous Blood Potassium Serum Ketones 08/30/17 08/30/17 08/30/17 03:49 03:49 05:00 WBC RBC Hgb Hct MCV MCH MCHC RDW Plt Count MPV Neut % (Auto) Lymph % (Auto) [place] % (Auto) Eos % (Auto) Baso % (Auto) Neut # (Auto) Lymph # (Auto) [place] # (Auto) Eos # (Auto) Baso # (Auto) Neutrophils % (Manual) Lymphocytes % (Manual) Monocytes % (Manual) Platelet Estimate Hypochromasia (manual) Poikilocytosis (manual Anisocytosis (manual) Ovalocytes PT INR APTT D-Dimer, Quantitative pO2 VBG pH VBG pCO2 VBG HCO3 VBG Total CO2 VBG O2 Sat (Calc) VBG Base Excess VBG Potassium Glucose Lactate Crit Value Called To Crit Value Called By Crit Value Read Back Blood Gas Notified Time Sodium 139 Potassium 5.9 H Chloride 106 Carbon Dioxide 16 L Anion Gap 24 H BUN 79 H Creatinine 5.2 H Est GFR ( Amer) 10 Est GFR (Non-Af Amer) 8 POC Glucose (mg/dL) Random Glucose 415 H* D Lactic Acid 3.4 H Calcium 8.6 Phosphorus 5.8 H Magnesium 2.1 Total Bilirubin AST ALT Alkaline Phosphatase Troponin I 96.9000 H* NT-Pro-B Natriuret Pep Total Protein Albumin Globulin Albumin/Globulin Ratio Triglycerides 170 H D Cholesterol 228 H LDL Cholesterol Direct 68 HDL Cholesterol 61 Venous Blood Potassium Serum Ketones Assessment & Plan - Date & Time Date: 08/30/17 (I have seen and examined the patient. I agree with the findings and plan of care as documented by Dr. Moore. Patient with NSTEMI. Consult to Cardio. Nitro and Heparin. Aspirin, Statin. ROMIx3 with EKG. ESRD. Metabolic acidosis. Has graft for dialysis but not currently in use. Consult to Nephro. Bilateral pleural effusion. Lasix. Monitor breathing. Monitor for acute changes. Admit to ICU for close monitoring.) Time: 06:38 Attending/Attestation - Attestation I have personally seen and examined this patient.: Yes I have fully participated in the care of the patient.: Yes I have reviewed all pertinent clinical information: Yes
[2017-08-30] MEDS ORDERED: Sod Polystyrene Sulf 15 gm/60 ml Susp PO ONE ×2 (02:08→04:15)
[2017-08-30 02:36] LABS: INR 1.3; PROTHROMBIN TIME 14.6 SECONDS (9.7-12.2)
--- NOTE | 2017-08-30 03:33 | PCM.PROC ---
Procedures Attestation:: I certify that I have explained the specified Operation(s) or Procedure(s), risks, benefits and reasonable alternatives to the Patient and/or other person responsible. The opportunity was given to ask questions and all questions answered - Central Line Placement Right Internal Jugular Triple Lumen Catheter Aseptic technique was employed throughout the procedure: Full sterile barriers ( mask, hair cover, sterile gown, sterile gloves), Chloraprep Antiseptic: 30 second prep for IJ or SC sites CVP Time Out Performed: Yes Pt. Placed on Pulse Ox Monitor: Yes Central Line Prep: Chlorhexidine-Alcohol Combination Local Anesthesia Used: Lidocaine 1% Ultrasound Used for Placement: Yes Central Line Lumen Inserted: triple Central Line Length: 20 cm Post Procedure: Sutured in Place, Good Blood Return, All Ports Aspirated, Flushed, Capped, Sterile Dressing Applied Secured by: Suture Post procedure dressing: Clear vapor permeable, Chlorhexidine disc (Biopatch) Post Procedure X-Ray: Yes Patient Tolerated Procedure: Well, No Complications Immediate Complications: None
[2017-08-30] MEDS ORDERED: Piperacill/Tazo 2.25gm in Dex 2.25 GM/50 ML BAG IVPB SCH (03:45)
[2017-08-30 03:52] LABS: BASO # 0.1 K/uL (0.0-0.2); BASO % 0.5 % (0.0-2.0); HEMOGLOBIN 9.6 g/dL (11.0-16.0); LYMPH # 0.5 K/uL (1.0-4.3); LYMPH % 3.4 % (20.0-40.0); MEAN CELL VOLUME 85.2 fL (81.0-99.0); MEAN CORPUSCULAR HEMOGLOBIN 27.7 pg (27.0-31.0); MEAN CORPUSCULAR HGB CONC 32.5 g/dL (33.0-37.0); MEAN PLATELET VOLUME 8.9 fL (7.2-11.7); MONO # 0.9 K/uL (0.0-0.8); MONO % 5.6 % (0.0-10.0); NEUT # 14.2 K/uL (1.8-7.0); NEUT % 90.5 % (50.0-75.0); NRBC % 0.1 % (0.0-2.0); PLATELET COUNT 143 K/uL (130-400); RBC 3.48 Mil/uL (3.80-5.20); RED CELL DISTRIBUTION WIDTH 16.2 % (11.5-14.5); WHITE BLOOD COUNT 15.7 K/uL (4.8-10.8)
[2017-08-30 04:21] LABS: CALCIUM 8.6 mg/dl (8.6-10.4)
[2017-08-30] MEDS ORDERED: (Novolin R) Insulin Human Regular 100 units/ml vial IV ONE (04:23)
[2017-08-30 04:41] LABS: LYMPHOCYTE 4 % (20-40); MONOCYTE 3 % (0-10); NEUTROPHIL 93 % (50-75); PLATELET ESTIMATE NORMAL (NORMAL); TOTAL CELLS COUNTED 100
[2017-08-30 04:42] LABS: ANISOCYTOSIS SLIGHT; HYPOCHROMIC SLIGHT; OVALOCYTES SLIGHT; POIKILOCYTOSIS SLIGHT
[2017-08-30 04:46] LABS: TROPONIN I 96.9 ng/mL (0.00-0.120)
[2017-08-30] MEDS: Heparin25000 units/250ml 1/2NS 25,000 UNITS/250 ML BAG IV PRN (05:00)
[2017-08-30 05:08] LABS: HDL CHOLESTEROL 61 mg/dL (30-70)
[2017-08-30 05:20] LABS: LDL CHOLESTEROL 68 mg/dL (0-129)
--- NOTE | 2017-08-30 07:02 | PCM.SEPTIC ---
Sepsis Progress Note - Reassessment Type Date of Evaluation: 08/30/17 Time of Evaluation: 03:00 Reassessment Type: Non-invasive reassessment - Non Invasive Reassessment Were the most recent vital sign reviewed: Yes Vital Sign (Latest): Temp Pulse Resp BP Pulse Ox 98.2 F 101 H 18 133/76 100 08/30/17 04:00 08/30/17 06:00 08/30/17 06:00 08/30/17 05:50 08/30/17 06:00 Cardiovascular: Yes: Regular Rate, Rhythm, Murmur. No: Chest Non Tender, Edema , Gallop, JVD, Bradycardia, Tachycardia Respiratory: Yes: Normal Breath Sounds. No: Crackles, Rales Capillary Refill: Normal (Less than 2 sec) Pulses: Normal Radial, Normal Dorsalis Pedis, Normal Posterior Tibialis Skin: Warm
--- NOTE | 2017-08-30 07:37 | RAD ---
Chest x-ray single frontal view History: Chest pain. Comparison: 02/25/2017 Findings: Moderate left and small right pleural effusion. Moderate venous congestion. Confluent airspace opacifications seen within the left mid to lower lung zone as well as at right lung base. Few scattered nodular densities in both lung ferro. Cardiomegaly. Enlarged ectatic aorta. Degenerative changes in the spine and shoulders. Impression: Moderate left and small right pleural effusion. Moderate venous congestion. Confluent airspace opacifications seen within the left mid to lower lung zone as well as at right lung base. Few scattered nodular densities in both lung ferro. Cardiomegaly. Enlarged ectatic aorta.
--- NOTE | 2017-08-30 07:47 | RAD ---
Chest x-ray single frontal view History: Triple-lumen catheter placement. Comparison: 08/29/2017 Findings: Right central venous catheter with tip extending to the right atrium. Moderate to severe venous congestion. Moderate loculated left pleural effusion and small right pleural effusion. Patchy consolidative changes in the left mid to lower lung zone and right lung base. Bilateral hilar prominence. Calcification at the aortic knob. Cardiomegaly. Degenerative changes in the spine and shoulders. Small radiopaque density projects over the medial left rosina abdomen. Impression: Right central venous catheter with tip extending to the right atrium. Moderate to severe venous congestion. Moderate loculated left pleural effusion and small right pleural effusion. Patchy consolidative changes in the left mid to lower lung zone and right lung base. Bilateral hilar prominence. Calcification at the aortic knob. Cardiomegaly.
--- NOTE | 2017-08-30 08:00 | CP.CCUPN ---
<LashamilesRex vieyra - Last Filed: 08/30/17 17:16> CCU Subjective - Physician Review Subjective (Free Text): 08/30/17 15:06 Patient seen and examined at bedside AMS spoke with nephro and want to wait for diaylsis until cardio decides to do cath or not 08/30/17 17:16 PMD talked with cardio and Nephro. Medical managment for cardiac issues at this time. OK to go ahead with dialysis. First session tonight CCU Objective - Vital Signs / Intake & Output Vital Signs (Last 4 hours): Vital Signs Temp Pulse Resp BP Pulse Ox 08/30/17 06:00 101 H 18 100 08/30/17 05:50 100 H 19 133/76 100 08/30/17 05:00 95 H 21 08/30/17 04:50 90 25 H 101/50 L 08/30/17 04:00 98.2 F 99 H 18 125/77 98 Intake and Output (Last 8hrs): Intake & Output 08/29/17 08/30/17 08/30/17 22:59 06:59 14:59 Intake Total 207.1 Output Total 0 Balance 207.1 Weight 130 lb 130 lb 4.8 oz Intake: Intake, IV Amount 207.1 Right Forearm 7.1 Right Hand 100 Right Internal Jugular 100 Oral 0 Output: Urine 0 Urethral (Cleaning) 0 Stool 0 Other: Voiding Method Indwelling Catheter - Physical Exam Head: Positive for: Atraumatic, Normocephalic. Negative for: Tenderness, Contusion, Swelling Pupils: Positive for: PERRL. Negative for: Sluggish, Non-Reactive Extroacular Muscles: Positive for: EOMI Conjunctiva: Positive for: Normal Mouth: Positive for: Dry Pharnyx: Positive for: Normal Nose (External): Positive for: Atraumatic Neck: Positive for: Normal Range of Motion, Trachea Midline. Negative for: Meningeal Signs, MIDLINE TENDERNESS, Paraspinal Tenderness, JVD, Lymphadenopathy Respiratory/Chest: Positive for: Good Air Exchange, Decreased Breath Sounds (on bilateral bases). Negative for: Accessory Muscle Use, Wheezes Cardiovascular: Positive for: Regular Rate and Rhythm, Murmurs (Ejection systolic ), Normal S1, S2, Peripheal Pulses Present. Negative for: Tachycardic , Bradycardic Abdomen: Positive for: Normal Bowel Sounds. Negative for: Tenderness, Distention, Peritoneal Signs Upper Extremity: Positive for: NORMAL PULSES, Capillary Refill < 2s, Other. Negative for: Cyanosis, Edema Lower Extremity: Positive for: Normal Inspection, NORMAL PULSES. Negative for: Edema, CALF TENDERNESS - Medications Active Medications: Active Medications Generic Name Dose Route Start Last Admin Trade Name Freq PRN Reason Stop Dose Admin Aspirin 81 mg 08/30/17 10:00 Aspirin Chewable PO DAILY CAROLYNE Heparin Sodium/Sodium Chloride 25,000 units in 250 mls @ 7.076 mls/hr 00:56 08/30/17 05:00 Heparin 87851 Units/250ml 1/2 Normal Saline IV 12 units/kg/hr .Q24H PRN 7.076 mls/hr PROTOCOL Administration Protocol 12 UNITS/KG/HR Nitroglycerin 0.4 mg 08/30/17 00:49 Nitrostat Sl Tab SL Q5M PRN Other Rosuvastatin Calcium 5 mg 08/30/17 01:15 08/30/17 01:29 Crestor PO 5 mg HS CAROLYNE Administration - Patient Studies Lab Studies: Lab Studies 08/30/17 08/30/17 08/30/17 Range/Units 07:47 05:00 03:49 WBC (4.8-10.8) K/uL RBC (3.80-5.20) Mil/uL Hgb (11.0-16.0) g/dL Hct (34.0-47.0) % MCV (81.0-99.0) fL MCH (27.0-31.0) pg MCHC (33.0-37.0) g/dL RDW (11.5-14.5) % Plt Count (130-400) K/uL MPV (7.2-11.7) fL Neut % (Auto) (50.0-75.0) % Lymph % (Auto) (20.0-40.0) % [place] % (Auto) (0.0-10.0) % Eos % (Auto) (0.0-4.0) % Baso % (Auto) (0.0-2.0) % Neut # (Auto) (1.8-7.0) K/uL Lymph # (Auto) (1.0-4.3) K/uL [place] # (Auto) (0.0-0.8) K/uL Eos # (Auto) (0.0-0.7) K/uL Baso # (Auto) (0.0-0.2) K/uL Neutrophils % (Manual) (50-75) % Lymphocytes % (Manual) (20-40) % Monocytes % (Manual) (0-10) % Platelet Estimate (NORMAL) Hypochromasia (manual) Poikilocytosis (manual Anisocytosis (manual) Ovalocytes PT (9.7-12.2) SECONDS INR APTT (21-34) SECONDS D-Dimer, Quantitative (0-243) ng/mlDDU pO2 (30-55) mm/Hg VBG pH (7.32-7.43) VBG pCO2 (40-60) mmHg VBG HCO3 mmol/L VBG Total CO2 (22-28) mmol/L VBG O2 Sat (Calc) (40-65) % VBG Base Excess (0.0-2.0) mmol/L VBG Potassium (3.6-5.2) mmol/L Glucose (65-105) mg/dl Lactate (0.7-2.1) mmol/L Crit Value Called To Crit Value Called By Crit Value Read Back Blood Gas Notified Time Sodium (132-148) mmol/L Potassium (3.6-5.2) mmol/L Chloride (98-107) mmol/L Carbon Dioxide (22-30) mmol/L Anion Gap (10-20) BUN (7-17) mg/dL Creatinine (0.7-1.2) mg/dL Est GFR ( Amer) Est GFR (Non-Af Amer) POC Glucose (mg/dL) 349 H (65-110) mg/dL Random Glucose (65-105) mg/dL Lactic Acid 3.4 H (0.7-2.1) mmol/L Calcium (8.6-10.4) mg/dl Phosphorus (2.5-4.5) mg/dL Magnesium (1.6-2.3) mg/dL Total Bilirubin (0.2-1.3) mg/dL AST (14-36) U/L ALT (9-52) U/L Alkaline Phosphatase (38-126) U/L Troponin I (0.00-0.120) ng/mL NT-Pro-B Natriuret Pep (0-900) pg/mL Total Protein (6.3-8.3) g/dL Albumin (3.5-5.0) g/dL Globulin (2.2-3.9) gm/dL Albumin/Globulin Ratio (1.0-2.1) Triglycerides 170 H D (0-149) mg/dL Cholesterol 228 H (0-199) mg/dL LDL Cholesterol Direct 68 (0-129) mg/dL HDL Cholesterol 61 (30-70) mg/dL Venous Blood Potassium (3.6-5.2) mmol/L Serum Ketones (NEGATIVE) 08/30/17 08/30/17 08/30/17 Range/Units 03:49 03:49 02:17 WBC 15.7 H (4.8-10.8) K/uL RBC 3.48 L (3.80-5.20) Mil/uL Hgb 9.6 L (11.0-16.0) g/dL Hct 29.6 L (34.0-47.0) % MCV 85.2 D (81.0-99.0) fL MCH 27.7 (27.0-31.0) pg MCHC 32.5 L (33.0-37.0) g/dL RDW 16.2 H (11.5-14.5) % Plt Count 143 (130-400) K/uL MPV 8.9 (7.2-11.7) fL Neut % (Auto) 90.5 H (50.0-75.0) % Lymph % (Auto) 3.4 L (20.0-40.0) % [place] % (Auto) 5.6 (0.0-10.0) % Eos % (Auto) 0.0 (0.0-4.0) % Baso % (Auto) 0.5 (0.0-2.0) % Neut # (Auto) 14.2 H (1.8-7.0) K/uL Lymph # (Auto) 0.5 L (1.0-4.3) K/uL [place] # (Auto) 0.9 H (0.0-0.8) K/uL Eos # (Auto) 0.0 (0.0-0.7) K/uL Baso # (Auto) 0.1 (0.0-0.2) K/uL Neutrophils % (Manual) 93 H (50-75) % Lymphocytes % (Manual) 4 L (20-40) % Monocytes % (Manual) 3 (0-10) % Platelet Estimate Normal (NORMAL) Hypochromasia (manual) Slight Poikilocytosis (manual Slight Anisocytosis (manual) Slight Ovalocytes Slight PT 14.6 H (9.7-12.2) SECONDS INR 1.3 APTT 29 (21-34) SECONDS D-Dimer, Quantitative (0-243) ng/mlDDU pO2 (30-55) mm/Hg VBG pH (7.32-7.43) VBG pCO2 (40-60) mmHg VBG HCO3 mmol/L VBG Total CO2 (22-28) mmol/L VBG O2 Sat (Calc) (40-65) % VBG Base Excess (0.0-2.0) mmol/L VBG Potassium (3.6-5.2) mmol/L Glucose (65-105) mg/dl Lactate (0.7-2.1) mmol/L Crit Value Called To Crit Value Called By Crit Value Read Back Blood Gas Notified Time Sodium 139 (132-148) mmol/L Potassium 5.9 H (3.6-5.2) mmol/L Chloride 106 (98-107) mmol/L Carbon Dioxide 16 L (22-30) mmol/L Anion Gap 24 H (10-20) BUN 79 H (7-17) mg/dL Creatinine 5.2 H (0.7-1.2) mg/dL Est GFR ( Amer) 10 Est GFR (Non-Af Amer) 8 POC Glucose (mg/dL) (65-110) mg/dL Random Glucose 415 H* D (65-105) mg/dL Lactic Acid (0.7-2.1) mmol/L Calcium 8.6 (8.6-10.4) mg/dl Phosphorus 5.8 H (2.5-4.5) mg/dL Magnesium 2.1 (1.6-2.3) mg/dL Total Bilirubin (0.2-1.3) mg/dL AST (14-36) U/L ALT (9-52) U/L Alkaline Phosphatase (38-126) U/L Troponin I 96.9000 H* (0.00-0.120) ng/mL NT-Pro-B Natriuret Pep (0-900) pg/mL Total Protein (6.3-8.3) g/dL Albumin (3.5-5.0) g/dL Globulin (2.2-3.9) gm/dL Albumin/Globulin Ratio (1.0-2.1) Triglycerides (0-149) mg/dL Cholesterol (0-199) mg/dL LDL Cholesterol Direct (0-129) mg/dL HDL Cholesterol (30-70) mg/dL Venous Blood Potassium (3.6-5.2) mmol/L Serum Ketones (NEGATIVE) 08/30/17 08/30/17 08/29/17 Range/Units 02:01 01:18 23:25 WBC (4.8-10.8) K/uL RBC (3.80-5.20) Mil/uL Hgb (11.0-16.0) g/dL Hct (34.0-47.0) % MCV (81.0-99.0) fL MCH (27.0-31.0) pg MCHC (33.0-37.0) g/dL RDW (11.5-14.5) % Plt Count (130-400) K/uL MPV (7.2-11.7) fL Neut % (Auto) (50.0-75.0) % Lymph % (Auto) (20.0-40.0) % [place] % (Auto) (0.0-10.0) % Eos % (Auto) (0.0-4.0) % Baso % (Auto) (0.0-2.0) % Neut # (Auto) (1.8-7.0) K/uL Lymph # (Auto) (1.0-4.3) K/uL [place] # (Auto) (0.0-0.8) K/uL Eos # (Auto) (0.0-0.7) K/uL Baso # (Auto) (0.0-0.2) K/uL Neutrophils % (Manual) (50-75) % Lymphocytes % (Manual) (20-40) % Monocytes % (Manual) (0-10) % Platelet Estimate (NORMAL) Hypochromasia (manual) Poikilocytosis (manual Anisocytosis (manual) Ovalocytes PT (9.7-12.2) SECONDS INR APTT (21-34) SECONDS D-Dimer, Quantitative (0-243) ng/mlDDU pO2 16 L (30-55) mm/Hg VBG pH 7.16 L* (7.32-7.43) VBG pCO2 40 (40-60) mmHg VBG HCO3 11.9 mmol/L VBG Total CO2 15.5 L (22-28) mmol/L VBG O2 Sat (Calc) 35.2 L (40-65) % VBG Base Excess -13.8 L (0.0-2.0) mmol/L VBG Potassium 5.8 H (3.6-5.2) mmol/L Glucose 562 H* D (65-105) mg/dl Lactate 2.5 H (0.7-2.1) mmol/L Crit Value Called To Willow dobson/rn Crit Value Called By Shoaib anderson/rt Crit Value Read Back Y Blood Gas Notified Time 2335 Sodium 139.0 (132-148) mmol/L Potassium (3.6-5.2) mmol/L Chloride 103.0 (98-107) mmol/L Carbon Dioxide (22-30) mmol/L Anion Gap (10-20) BUN (7-17) mg/dL Creatinine (0.7-1.2) mg/dL Est GFR ( Amer) Est GFR (Non-Af Amer) POC Glucose (mg/dL) 374 H 362 H (65-110) mg/dL Random Glucose (65-105) mg/dL Lactic Acid (0.7-2.1) mmol/L Calcium (8.6-10.4) mg/dl Phosphorus (2.5-4.5) mg/dL Magnesium (1.6-2.3) mg/dL Total Bilirubin (0.2-1.3) mg/dL AST (14-36) U/L ALT (9-52) U/L Alkaline Phosphatase (38-126) U/L Troponin I (0.00-0.120) ng/mL NT-Pro-B Natriuret Pep (0-900) pg/mL Total Protein (6.3-8.3) g/dL Albumin (3.5-5.0) g/dL Globulin (2.2-3.9) gm/dL Albumin/Globulin Ratio (1.0-2.1) Triglycerides (0-149) mg/dL Cholesterol (0-199) mg/dL LDL Cholesterol Direct (0-129) mg/dL HDL Cholesterol (30-70) mg/dL Venous Blood Potassium 5.8 H (3.6-5.2) mmol/L Serum Ketones (NEGATIVE) 08/29/17 08/29/17 08/29/17 Range/Units 22:51 22:51 22:51 WBC 16.3 H D (4.8-10.8) K/uL RBC 3.72 L (3.80-5.20) Mil/uL Hgb 10.3 L (11.0-16.0) g/dL Hct 32.5 L (34.0-47.0) % MCV 87.4 (81.0-99.0) fL MCH 27.7 (27.0-31.0) pg MCHC 31.6 L (33.0-37.0) g/dL RDW 16.7 H (11.5-14.5) % Plt Count 156 (130-400) K/uL MPV 9.4 (7.2-11.7) fL Neut % (Auto) 90.5 H (50.0-75.0) % Lymph % (Auto) 3.8 L (20.0-40.0) % [place] % (Auto) 4.8 (0.0-10.0) % Eos % (Auto) 0.0 (0.0-4.0) % Baso % (Auto) 0.9 (0.0-2.0) % Neut # (Auto) 14.8 H (1.8-7.0) K/uL Lymph # (Auto) 0.6 L (1.0-4.3) K/uL [place] # (Auto) 0.8 (0.0-0.8) K/uL Eos # (Auto) 0.0 (0.0-0.7) K/uL Baso # (Auto) 0.1 (0.0-0.2) K/uL Neutrophils % (Manual) 92 H (50-75) % Lymphocytes % (Manual) 5 L (20-40) % Monocytes % (Manual) 3 (0-10) % Platelet Estimate Normal (NORMAL) Hypochromasia (manual) Poikilocytosis (manual Anisocytosis (manual) Ovalocytes PT (9.7-12.2) SECONDS INR APTT (21-34) SECONDS D-Dimer, Quantitative 4388 H (0-243) ng/mlDDU pO2 (30-55) mm/Hg VBG pH (7.32-7.43) VBG pCO2 (40-60) mmHg VBG HCO3 mmol/L VBG Total CO2 (22-28) mmol/L VBG O2 Sat (Calc) (40-65) % VBG Base Excess (0.0-2.0) mmol/L VBG Potassium (3.6-5.2) mmol/L Glucose (65-105) mg/dl Lactate (0.7-2.1) mmol/L Crit Value Called To Crit Value Called By Crit Value Read Back Blood Gas Notified Time Sodium 137 (132-148) mmol/L Potassium 6.5 H* D (3.6-5.2) mmol/L Chloride 105 (98-107) mmol/L Carbon Dioxide 11 L* D (22-30) mmol/L Anion Gap 28 H (10-20) BUN 74 H (7-17) mg/dL Creatinine 4.7 H (0.7-1.2) mg/dL Est GFR ( Amer) 11 Est GFR (Non-Af Amer) 9 POC Glucose (mg/dL) (65-110) mg/dL Random Glucose 559 H* D (65-105) mg/dL Lactic Acid (0.7-2.1) mmol/L Calcium 8.0 L (8.6-10.4) mg/dl Phosphorus (2.5-4.5) mg/dL Magnesium (1.6-2.3) mg/dL Total Bilirubin 1.6 H (0.2-1.3) mg/dL AST 193 H (14-36) U/L ALT 54 H D (9-52) U/L Alkaline Phosphatase 96 (38-126) U/L Troponin I 103.0000 H* (0.00-0.120) ng/mL NT-Pro-B Natriuret Pep 97829 H (0-900) pg/mL Total Protein 7.3 (6.3-8.3) g/dL Albumin 3.6 (3.5-5.0) g/dL Globulin 3.7 (2.2-3.9) gm/dL Albumin/Globulin Ratio 1.0 (1.0-2.1) Triglycerides (0-149) mg/dL Cholesterol (0-199) mg/dL LDL Cholesterol Direct (0-129) mg/dL HDL Cholesterol (30-70) mg/dL Venous Blood Potassium (3.6-5.2) mmol/L Serum Ketones Negative (NEGATIVE) 08/29/17 Range/Units 22:18 WBC (4.8-10.8) K/uL RBC (3.80-5.20) Mil/uL Hgb (11.0-16.0) g/dL Hct (34.0-47.0) % MCV (81.0-99.0) fL MCH (27.0-31.0) pg MCHC (33.0-37.0) g/dL RDW (11.5-14.5) % Plt Count (130-400) K/uL MPV (7.2-11.7) fL Neut % (Auto) (50.0-75.0) % Lymph % (Auto) (20.0-40.0) % [place] % (Auto) (0.0-10.0) % Eos % (Auto) (0.0-4.0) % Baso % (Auto) (0.0-2.0) % Neut # (Auto) (1.8-7.0) K/uL Lymph # (Auto) (1.0-4.3) K/uL [place] # (Auto) (0.0-0.8) K/uL Eos # (Auto) (0.0-0.7) K/uL Baso # (Auto) (0.0-0.2) K/uL Neutrophils % (Manual) (50-75) % Lymphocytes % (Manual) (20-40) % Monocytes % (Manual) (0-10) % Platelet Estimate (NORMAL) Hypochromasia (manual) Poikilocytosis (manual Anisocytosis (manual) Ovalocytes PT (9.7-12.2) SECONDS INR APTT (21-34) SECONDS D-Dimer, Quantitative (0-243) ng/mlDDU pO2 (30-55) mm/Hg VBG pH (7.32-7.43) VBG pCO2 (40-60) mmHg VBG HCO3 mmol/L VBG Total CO2 (22-28) mmol/L VBG O2 Sat (Calc) (40-65) % VBG Base Excess (0.0-2.0) mmol/L VBG Potassium (3.6-5.2) mmol/L Glucose (65-105) mg/dl Lactate (0.7-2.1) mmol/L Crit Value Called To Crit Value Called By Crit Value Read Back Blood Gas Notified Time Sodium (132-148) mmol/L Potassium (3.6-5.2) mmol/L Chloride (98-107) mmol/L Carbon Dioxide (22-30) mmol/L Anion Gap (10-20) BUN (7-17) mg/dL Creatinine (0.7-1.2) mg/dL Est GFR ( Amer) Est GFR (Non-Af Amer) POC Glucose (mg/dL) 467 H* (65-110) mg/dL Random Glucose (65-105) mg/dL Lactic Acid (0.7-2.1) mmol/L Calcium (8.6-10.4) mg/dl Phosphorus (2.5-4.5) mg/dL Magnesium (1.6-2.3) mg/dL Total Bilirubin (0.2-1.3) mg/dL AST (14-36) U/L ALT (9-52) U/L Alkaline Phosphatase (38-126) U/L Troponin I (0.00-0.120) ng/mL NT-Pro-B Natriuret Pep (0-900) pg/mL Total Protein (6.3-8.3) g/dL Albumin (3.5-5.0) g/dL Globulin (2.2-3.9) gm/dL Albumin/Globulin Ratio (1.0-2.1) Triglycerides (0-149) mg/dL Cholesterol (0-199) mg/dL LDL Cholesterol Direct (0-129) mg/dL HDL Cholesterol (30-70) mg/dL Venous Blood Potassium (3.6-5.2) mmol/L Serum Ketones (NEGATIVE) Laboratory Results - last 24 hr 08/29/17 08/29/17 08/29/17 22:18 22:51 22:51 WBC 16.3 H D RBC 3.72 L Hgb 10.3 L Hct 32.5 L MCV 87.4 MCH 27.7 MCHC 31.6 L RDW 16.7 H Plt Count 156 MPV 9.4 Neut % (Auto) 90.5 H Lymph % (Auto) 3.8 L [place] % (Auto) 4.8 Eos % (Auto) 0.0 Baso % (Auto) 0.9 Neut # (Auto) 14.8 H Lymph # (Auto) 0.6 L [place] # (Auto) 0.8 Eos # (Auto) 0.0 Baso # (Auto) 0.1 Neutrophils % (Manual) 92 H Lymphocytes % (Manual) 5 L Monocytes % (Manual) 3 Platelet Estimate Normal Hypochromasia (manual) Poikilocytosis (manual Anisocytosis (manual) Ovalocytes PT INR APTT D-Dimer, Quantitative 4388 H pO2 VBG pH VBG pCO2 VBG HCO3 VBG Total CO2 VBG O2 Sat (Calc) VBG Base Excess VBG Potassium Glucose Lactate Crit Value Called To Crit Value Called By Crit Value Read Back Blood Gas Notified Time Sodium Potassium Chloride Carbon Dioxide Anion Gap BUN Creatinine Est GFR ( Amer) Est GFR (Non-Af Amer) POC Glucose (mg/dL) 467 H* Random Glucose Lactic Acid Calcium Phosphorus Magnesium Total Bilirubin AST ALT Alkaline Phosphatase Troponin I NT-Pro-B Natriuret Pep Total Protein Albumin Globulin Albumin/Globulin Ratio Triglycerides Cholesterol LDL Cholesterol Direct HDL Cholesterol Venous Blood Potassium Serum Ketones 08/29/17 08/29/17 08/30/17 22:51 23:25 01:18 WBC RBC Hgb Hct MCV MCH MCHC RDW Plt Count MPV Neut % (Auto) Lymph % (Auto) [place] % (Auto) Eos % (Auto) Baso % (Auto) Neut # (Auto) Lymph # (Auto) [place] # (Auto) Eos # (Auto) Baso # (Auto) Neutrophils % (Manual) Lymphocytes % (Manual) Monocytes % (Manual) Platelet Estimate Hypochromasia (manual) Poikilocytosis (manual Anisocytosis (manual) Ovalocytes PT INR APTT D-Dimer, Quantitative pO2 16 L VBG pH 7.16 L* VBG pCO2 40 VBG HCO3 11.9 VBG Total CO2 15.5 L VBG O2 Sat (Calc) 35.2 L VBG Base Excess -13.8 L VBG Potassium 5.8 H Glucose 562 H* D Lactate 2.5 H Crit Value Called To Willow dobson/rn Crit Value Called By Shoaib anderson/rt Crit Value Read Back Y Blood Gas Notified Time 2335 Sodium 137 139.0 Potassium 6.5 H* D Chloride 105 103.0 Carbon Dioxide 11 L* D Anion Gap 28 H BUN 74 H Creatinine 4.7 H Est GFR ( Amer) 11 Est GFR (Non-Af Amer) 9 POC Glucose (mg/dL) 362 H Random Glucose 559 H* D Lactic Acid Calcium 8.0 L Phosphorus Magnesium Total Bilirubin 1.6 H AST 193 H ALT 54 H D Alkaline Phosphatase 96 Troponin I 103.0000 H* NT-Pro-B Natriuret Pep 90994 H Total Protein 7.3 Albumin 3.6 Globulin 3.7 Albumin/Globulin Ratio 1.0 Triglycerides Cholesterol LDL Cholesterol Direct HDL Cholesterol Venous Blood Potassium 5.8 H Serum Ketones Negative 08/30/17 08/30/17 08/30/17 02:01 02:17 03:49 WBC 15.7 H RBC 3.48 L Hgb 9.6 L Hct 29.6 L MCV 85.2 D MCH 27.7 MCHC 32.5 L RDW 16.2 H Plt Count 143 MPV 8.9 Neut % (Auto) 90.5 H Lymph % (Auto) 3.4 L [place] % (Auto) 5.6 Eos % (Auto) 0.0 Baso % (Auto) 0.5 Neut # (Auto) 14.2 H Lymph # (Auto) 0.5 L [place] # (Auto) 0.9 H Eos # (Auto) 0.0 Baso # (Auto) 0.1 Neutrophils % (Manual) 93 H Lymphocytes % (Manual) 4 L Monocytes % (Manual) 3 Platelet Estimate Normal Hypochromasia (manual) Slight Poikilocytosis (manual Slight Anisocytosis (manual) Slight Ovalocytes Slight PT 14.6 H INR 1.3 APTT 29 D-Dimer, Quantitative pO2 VBG pH VBG pCO2 VBG HCO3 VBG Total CO2 VBG O2 Sat (Calc) VBG Base Excess VBG Potassium Glucose Lactate Crit Value Called To Crit Value Called By Crit Value Read Back Blood Gas Notified Time Sodium Potassium Chloride Carbon Dioxide Anion Gap BUN Creatinine Est GFR ( Amer) Est GFR (Non-Af Amer) POC Glucose (mg/dL) 374 H Random Glucose Lactic Acid Calcium Phosphorus Magnesium Total Bilirubin AST ALT Alkaline Phosphatase Troponin I NT-Pro-B Natriuret Pep Total Protein Albumin Globulin Albumin/Globulin Ratio Triglycerides Cholesterol LDL Cholesterol Direct HDL Cholesterol Venous Blood Potassium Serum Ketones 08/30/17 08/30/17 08/30/17 03:49 03:49 05:00 WBC RBC Hgb Hct MCV MCH MCHC RDW Plt Count MPV Neut % (Auto) Lymph % (Auto) [place] % (Auto) Eos % (Auto) Baso % (Auto) Neut # (Auto) Lymph # (Auto) [place] # (Auto) Eos # (Auto) Baso # (Auto) Neutrophils % (Manual) Lymphocytes % (Manual) Monocytes % (Manual) Platelet Estimate Hypochromasia (manual) Poikilocytosis (manual Anisocytosis (manual) Ovalocytes PT INR APTT D-Dimer, Quantitative pO2 VBG pH VBG pCO2 VBG HCO3 VBG Total CO2 VBG O2 Sat (Calc) VBG Base Excess VBG Potassium Glucose Lactate Crit Value Called To Crit Value Called By Crit Value Read Back Blood Gas Notified Time Sodium 139 Potassium 5.9 H Chloride 106 Carbon Dioxide 16 L Anion Gap 24 H BUN 79 H Creatinine 5.2 H Est GFR ( Amer) 10 Est GFR (Non-Af Amer) 8 POC Glucose (mg/dL) Random Glucose 415 H* D Lactic Acid 3.4 H Calcium 8.6 Phosphorus 5.8 H Magnesium 2.1 Total Bilirubin AST ALT Alkaline Phosphatase Troponin I 96.9000 H* NT-Pro-B Natriuret Pep Total Protein Albumin Globulin Albumin/Globulin Ratio Triglycerides 170 H D Cholesterol 228 H LDL Cholesterol Direct 68 HDL Cholesterol 61 Venous Blood Potassium Serum Ketones 08/30/17 07:47 WBC RBC Hgb Hct MCV MCH MCHC RDW Plt Count MPV Neut % (Auto) Lymph % (Auto) [place] % (Auto) Eos % (Auto) Baso % (Auto) Neut # (Auto) Lymph # (Auto) [place] # (Auto) Eos # (Auto) Baso # (Auto) Neutrophils % (Manual) Lymphocytes % (Manual) Monocytes % (Manual) Platelet Estimate Hypochromasia (manual) Poikilocytosis (manual Anisocytosis (manual) Ovalocytes PT INR APTT D-Dimer, Quantitative pO2 VBG pH VBG pCO2 VBG HCO3 VBG Total CO2 VBG O2 Sat (Calc) VBG Base Excess VBG Potassium Glucose Lactate Crit Value Called To Crit Value Called By Crit Value Read Back Blood Gas Notified Time Sodium Potassium Chloride Carbon Dioxide Anion Gap BUN Creatinine Est GFR ( Amer) Est GFR (Non-Af Amer) POC Glucose (mg/dL) 349 H Random Glucose Lactic Acid Calcium Phosphorus Magnesium Total Bilirubin AST ALT Alkaline Phosphatase Troponin I NT-Pro-B Natriuret Pep Total Protein Albumin Globulin Albumin/Globulin Ratio Triglycerides Cholesterol LDL Cholesterol Direct HDL Cholesterol Venous Blood Potassium Serum Ketones EKG/Cardiology Studies: Cardiology / EKG Studies 08/29/17 20:10 ELECTROCARDIOGRAM Stat Comment: Mode Of Transportation: BED Reason For Exam: chest pain 08/29/17 20:22 ELECTROCARDIOGRAM Stat Comment: Mode Of Transportation: BED Reason For Exam: chest pain Fingerstick Blood Sugar Results: 467 Assessment/Plan - Assessment and Plan (Free Text) Assessment: 76F w/ NSTEMI, CKD Plan: Neuro: AMS, Likely secondary to severe sepsis, RF Cardio: Nstemi VS Myocarditis. Waiting for reccs from cardio for wether treating as NSTEMI or myocarditis. Nephro wants to wait for cardiac managment ( cath or no cath) prior to doing dialysis On heparin drip crestor lopressor Pulm: No acute issues Duonebs PRN moxiflox for possible PNA GI: NPO Renal: AVF, needs dialysis per nephro but wants ok from cardio prior to dialysis Endo: DM, insulin aspart Q6, accuchecks PPX: heparin drip, GI PPX not indicated <Kimmie Mathis - Last Filed: 08/31/17 11:31> CCU Subjective - Physician Review Subjective (Free Text): Patient admitted to ICU for MN/CKD/JULIA -obtain cardiology input possible PCI -obtain nephrology input regarding HD via left AV fistula CCU Objective - Vital Signs / Intake & Output Intake and Output (Last 8hrs): Intake & Output 08/30/17 08/31/17 08/31/17 22:59 06:59 14:59 Intake Total 504.3 1253.3 158 Output Total 0 0 Balance 504.3 1253.3 158 Weight 148 lb 9 oz Intake: IV 114 338 158 Intake, IV Amount 390.3 915.3 Right Forearm 39.8 Right Hand 33.9 76.5 distal 99.9 200.0 medial 96.7 318.8 proximal 120 320 Oral 0 Output: Urine 0 0 Urethral (Cleaning) 0 0 Stool 0 Other: # Bowel Movements 0 - Medications Active Medications: Active Medications Generic Name Dose Route Start Last Admin Trade Name Freq PRN Reason Stop Dose Admin Aspirin 81 mg 08/30/17 10:00 08/31/17 09:40 Aspirin Chewable PO 81 mg DAILY [facility] Administration Calcium Acetate 667 mg 08/30/17 14:00 08/31/17 09:40 Phoslo PO 667 mg TID [facility] Administration Epoetin Alan 4,000 unit 08/30/17 15:00 08/30/17 23:34 Procrit IV Not Given [facility]gocalciferol 1 cap 08/31/17 14:45 Drisdol 50,000 Intl Units Cap PO Q7D [facility] Ferrous Gluconate 324 mg 08/31/17 10:00 08/31/17 09:40 Fergon PO 324 mg TID [facility] Administration Heparin Sodium/Sodium Chloride 25,000 units in 250 mls @ 7.076 mls/hr 00:56 08/31/17 05:11 Heparin 82250 Units/250ml 1/2 Normal Saline IV 17 units/kg/hr .Q24H PRN 10.024 mls/hr PROTOCOL Administration Protocol 12 UNITS/KG/HR Moxifloxacin HCl 400 mg in 250 mls @ 167 mls/hr 08/30/17 23:00 08/30/17 23:30 Avelox Iv 400mg/250ml Ns IVPB 167 mls/hr Q24H [facility] Administration Norepinephrine Bitartrate 8 mg 258 mls @ 7.74 mls/hr 08/30/17 19:56 08/31/17 11:00 / Sodium Chloride IV 16 mcg/min .Q24H PRN 30.96 mls/hr TITRATE PER MD ORDER Titration Protocol 4 MCG/MIN Amiodarone HCl 900 mg/ 500 mls @ 16.66 mls/hr 08/31/17 03:00 08/31/17 03:00 Dextrose IV 08/31/17 21:00 16.66 mls/hr .Q24H [facility] Administration Protocol 0.5 MG/MIN Insulin Aspart 0 unit 08/30/17 18:00 08/31/17 06:24 Novolog SC Not Given Q6 [facility] Protocol Insulin Glargine 15 unit 08/30/17 22:00 08/30/17 23:38 Lantus SC 15 u HS [facility] Administration Metoprolol Tartrate 25 mg 08/30/17 10:00 08/31/17 10:00 Lopressor PO Not Given BID [facility] Nitroglycerin 0.4 mg 08/30/17 00:49 Nitrostat Sl Tab SL Q5M PRN Other Pantoprazole Sodium 40 mg 08/31/17 10:00 Protonix Inj IVP DAILY [facility] Rosuvastatin Calcium 5 mg 08/30/17 01:15 08/30/17 01:29 Crestor PO 5 mg HS [facility] Administration Vitamin B Complex/Vit C/Folic Acid 1 tab 08/31/17 08:00 08/31/17 08:30 Nephro-[place] PO 1 tab 0800 [facility] Administration - Patient Studies Lab Studies: Microbiology Studies 08/29/17 06:30 Blood Culture - Preliminary Blood-Venous NO GROWTH AFTER 24 HOURS 08/29/17 06:00 Blood Culture - Preliminary Blood-Venous NO GROWTH AFTER 24 HOURS Lab Studies 08/31/17 08/31/17 08/31/17 Range/Units 05:24 05:18 03:20 WBC (4.8-10.8) K/uL RBC (3.80-5.20) Mil/uL Hgb (11.0-16.0) g/dL Hct (34.0-47.0) % MCV (81.0-99.0) fL MCH (27.0-31.0) pg MCHC (33.0-37.0) g/dL RDW (11.5-14.5) % Plt Count (130-400) K/uL MPV (7.2-11.7) fL Neut % (Auto) (50.0-75.0) % Lymph % (Auto) (20.0-40.0) % [place] % (Auto) (0.0-10.0) % Eos % (Auto) (0.0-4.0) % Baso % (Auto) (0.0-2.0) % Neut # (Auto) (1.8-7.0) K/uL Lymph # (Auto) (1.0-4.3) K/uL [place] # (Auto) (0.0-0.8) K/uL Eos # (Auto) (0.0-0.7) K/uL Baso # (Auto) (0.0-0.2) K/uL Neutrophils % (Manual) (50-75) % Band Neutrophils % (0-2) % Lymphocytes % (Manual) (20-40) % Monocytes % (Manual) (0-10) % Nucleated RBC % (0-0) % Differential Comment Platelet Estimate (NORMAL) Hypochromasia (manual) Ovalocytes APTT 126 H* D (21-34) SECONDS Puncture Site Rb pCO2 21 L (35-45) mm/Hg pO2 360 H (80-100) mm/Hg HCO3 14.6 L (21-28) mmol/L ABG pH 7.33 L (7.35-7.45) ABG Total CO2 11.7 L (22-28) mmol/L ABG O2 Saturation 99.7 H (95-98) % ABG Base Excess -13.2 L (-2.0-3.0) mmol/L ABG Hemoglobin 9.2 L (11.7-17.4) g/dL ABG Carboxyhemoglobin 1.4 (0.5-1.5) % POC ABG HHb (Measured) 0.3 (0.0-5.0) % ABG Methemoglobin 1.3 (0.0-3.0) % Christian Test Na VBG pH (7.32-7.43) VBG pCO2 (40-60) mmHg VBG HCO3 mmol/L VBG O2 Sat (Calc) (40-65) % VBG Base Excess (0.0-2.0) mmol/L A-a O2 Difference 327.0 mm/Hg Respiratory Index 0.9 Hgb O2 Saturation 96.9 (95.0-98.0) % Vent Mode Prvc Mechanical Rate 24 FiO2 100.0 % Tidal Volume 550 PEEP 5 Crit Value Called To Crit Value Called By Crit Value Read Back Blood Gas Notified Time Sodium (132-148) mmol/L Potassium (3.6-5.2) mmol/L Chloride (98-107) mmol/L Carbon Dioxide (22-30) mmol/L Anion Gap (10-20) BUN (7-17) mg/dL Creatinine (0.7-1.2) mg/dL Est GFR ( Amer) Est GFR (Non-Af Amer) POC Glucose (mg/dL) 118 H (65-110) mg/dL Random Glucose (65-105) mg/dL Calcium (8.6-10.4) mg/dl Magnesium (1.6-2.3) mg/dL Iron (37-170) ug/dL TIBC (250-450) ug/dL % Saturation (20-55) Ferritin ng/mL Total Bilirubin (0.2-1.3) mg/dL AST (14-36) U/L ALT (9-52) U/L Alkaline Phosphatase (38-126) U/L Troponin I (0.00-0.120) ng/mL Total Protein (6.3-8.3) g/dL Albumin (3.5-5.0) g/dL Globulin (2.2-3.9) gm/dL Albumin/Globulin Ratio (1.0-2.1) Triglycerides (0-149) mg/dL Cholesterol (0-199) mg/dL LDL Cholesterol Direct (0-129) mg/dL HDL Cholesterol (30-70) mg/dL 25-OH Vitamin D Total (30.0-100.0) NG/ML Procalcitonin (0.19-0.49) NG/ML Vancomycin Trough (5.0-10.0) ug/mL Hep Bs Antigen (NEGATIVE) Hep Bs Antibody (NEGATIVE) Hep B Core IgM Ab (NEGATIVE) Hepatitis C Antibody (NEGATIVE) 08/31/17 08/31/17 08/31/17 Range/Units 03:18 03:18 03:18 WBC 14.6 H (4.8-10.8) K/uL RBC 3.31 L (3.80-5.20) Mil/uL Hgb 9.2 L (11.0-16.0) g/dL Hct 28.4 L (34.0-47.0) % MCV 85.7 D (81.0-99.0) fL MCH 27.7 (27.0-31.0) pg MCHC 32.3 L (33.0-37.0) g/dL RDW 16.4 H (11.5-14.5) % Plt Count 132 (130-400) K/uL MPV 8.7 (7.2-11.7) fL Neut % (Auto) 89.2 H (50.0-75.0) % Lymph % (Auto) 6.7 L (20.0-40.0) % [place] % (Auto) 3.9 (0.0-10.0) % Eos % (Auto) 0.0 (0.0-4.0) % Baso % (Auto) 0.2 (0.0-2.0) % Neut # (Auto) 13.1 H (1.8-7.0) K/uL Lymph # (Auto) 1.0 (1.0-4.3) K/uL [place] # (Auto) 0.6 (0.0-0.8) K/uL Eos # (Auto) 0.0 (0.0-0.7) K/uL Baso # (Auto) 0.0 (0.0-0.2) K/uL Neutrophils % (Manual) 89 H (50-75) % Band Neutrophils % 6 H (0-2) % Lymphocytes % (Manual) 3 L (20-40) % Monocytes % (Manual) 2 (0-10) % Nucleated RBC % 6 H (0-0) % Differential Comment Platelet Estimate Normal (NORMAL) Hypochromasia (manual) Slight Ovalocytes Slight APTT (21-34) SECONDS Puncture Site pCO2 (35-45) mm/Hg pO2 (80-100) mm/Hg HCO3 (21-28) mmol/L ABG pH (7.35-7.45) ABG Total CO2 (22-28) mmol/L ABG O2 Saturation (95-98) % ABG Base Excess (-2.0-3.0) mmol/L ABG Hemoglobin (11.7-17.4) g/dL ABG Carboxyhemoglobin (0.5-1.5) % POC ABG HHb (Measured) (0.0-5.0) % ABG Methemoglobin (0.0-3.0) % Christian Test VBG pH (7.32-7.43) VBG pCO2 (40-60) mmHg VBG HCO3 mmol/L VBG O2 Sat (Calc) (40-65) % VBG Base Excess (0.0-2.0) mmol/L A-a O2 Difference mm/Hg Respiratory Index Hgb O2 Saturation (95.0-98.0) % Vent Mode Mechanical Rate FiO2 % Tidal Volume PEEP Crit Value Called To Crit Value Called By Crit Value Read Back Blood Gas Notified Time Sodium 150 H (132-148) mmol/L Potassium 4.7 (3.6-5.2) mmol/L Chloride 108 H (98-107) mmol/L Carbon Dioxide 16 L (22-30) mmol/L Anion Gap 32 H (10-20) BUN 93 H (7-17) mg/dL Creatinine 6.2 H (0.7-1.2) mg/dL Est GFR ( Amer) 8 Est GFR (Non-Af Amer) 7 POC Glucose (mg/dL) (65-110) mg/dL Random Glucose 125 H (65-105) mg/dL Calcium 8.1 L (8.6-10.4) mg/dl Magnesium (1.6-2.3) mg/dL Iron (37-170) ug/dL TIBC (250-450) ug/dL % Saturation (20-55) Ferritin ng/mL Total Bilirubin 2.0 H (0.2-1.3) mg/dL AST 254 H D (14-36) U/L ALT 108 H D (9-52) U/L Alkaline Phosphatase 77 (38-126) U/L Troponin I (0.00-0.120) ng/mL Total Protein 5.8 L (6.3-8.3) g/dL Albumin 2.9 L (3.5-5.0) g/dL Globulin 2.9 (2.2-3.9) gm/dL Albumin/Globulin Ratio 1.0 (1.0-2.1) Triglycerides 82 D (0-149) mg/dL Cholesterol 173 (0-199) mg/dL LDL Cholesterol Direct 42 (0-129) mg/dL HDL Cholesterol 56 (30-70) mg/dL 25-OH Vitamin D Total (30.0-100.0) NG/ML Procalcitonin (0.19-0.49) NG/ML Vancomycin Trough (5.0-10.0) ug/mL Hep Bs Antigen (NEGATIVE) Hep Bs Antibody (NEGATIVE) Hep B Core IgM Ab (NEGATIVE) Hepatitis C Antibody (NEGATIVE) 08/31/17 08/31/17 08/30/17 Range/Units 00:29 00:04 20:41 WBC (4.8-10.8) K/uL RBC (3.80-5.20) Mil/uL Hgb (11.0-16.0) g/dL Hct (34.0-47.0) % MCV (81.0-99.0) fL MCH (27.0-31.0) pg MCHC (33.0-37.0) g/dL RDW (11.5-14.5) % Plt Count (130-400) K/uL MPV (7.2-11.7) fL Neut % (Auto) (50.0-75.0) % Lymph % (Auto) (20.0-40.0) % [place] % (Auto) (0.0-10.0) % Eos % (Auto) (0.0-4.0) % Baso % (Auto) (0.0-2.0) % Neut # (Auto) (1.8-7.0) K/uL Lymph # (Auto) (1.0-4.3) K/uL [place] # (Auto) (0.0-0.8) K/uL Eos # (Auto) (0.0-0.7) K/uL Baso # (Auto) (0.0-0.2) K/uL Neutrophils % (Manual) (50-75) % Band Neutrophils % (0-2) % Lymphocytes % (Manual) (20-40) % Monocytes % (Manual) (0-10) % Nucleated RBC % (0-0) % Differential Comment Platelet Estimate (NORMAL) Hypochromasia (manual) Ovalocytes APTT (21-34) SECONDS Puncture Site Drawn by rn pCO2 (35-45) mm/Hg pO2 19 L (80-100) mm/Hg HCO3 (21-28) mmol/L ABG pH (7.35-7.45) ABG Total CO2 (22-28) mmol/L ABG O2 Saturation (95-98) % ABG Base Excess (-2.0-3.0) mmol/L ABG Hemoglobin (11.7-17.4) g/dL ABG Carboxyhemoglobin (0.5-1.5) % POC ABG HHb (Measured) (0.0-5.0) % ABG Methemoglobin (0.0-3.0) % Christian Test Na VBG pH 7.20 L (7.32-7.43) VBG pCO2 42 (40-60) mmHg VBG HCO3 14.0 mmol/L VBG O2 Sat (Calc) 30.5 L (40-65) % VBG Base Excess -11.2 L (0.0-2.0) mmol/L A-a O2 Difference mm/Hg Respiratory Index Hgb O2 Saturation (95.0-98.0) % Vent Mode Mechanical Rate FiO2 % Tidal Volume PEEP Crit Value Called To Dr griffin Crit Value Called By Yaneth resendiz rt Crit Value Read Back Y Blood Gas Notified Time 30 Sodium 146 (132-148) mmol/L Potassium 5.1 (3.6-5.2) mmol/L Chloride 108 H (98-107) mmol/L Carbon Dioxide 12 L (22-30) mmol/L Anion Gap 31 H (10-20) BUN 91 H (7-17) mg/dL Creatinine 6.2 H (0.7-1.2) mg/dL Est GFR ( Amer) 8 Est GFR (Non-Af Amer) 7 POC Glucose (mg/dL) 223 H (65-110) mg/dL Random Glucose 333 H (65-105) mg/dL Calcium 8.4 L (8.6-10.4) mg/dl Magnesium 2.5 H (1.6-2.3) mg/dL Iron (37-170) ug/dL TIBC (250-450) ug/dL % Saturation (20-55) Ferritin ng/mL Total Bilirubin (0.2-1.3) mg/dL AST (14-36) U/L ALT (9-52) U/L Alkaline Phosphatase (38-126) U/L Troponin I 79.7000 H* (0.00-0.120) ng/mL Total Protein (6.3-8.3) g/dL Albumin (3.5-5.0) g/dL Globulin (2.2-3.9) gm/dL Albumin/Globulin Ratio (1.0-2.1) Triglycerides (0-149) mg/dL Cholesterol (0-199) mg/dL LDL Cholesterol Direct (0-129) mg/dL HDL Cholesterol (30-70) mg/dL 25-OH Vitamin D Total (30.0-100.0) NG/ML Procalcitonin (0.19-0.49) NG/ML Vancomycin Trough (5.0-10.0) ug/mL Hep Bs Antigen (NEGATIVE) Hep Bs Antibody (NEGATIVE) Hep B Core IgM Ab (NEGATIVE) Hepatitis C Antibody (NEGATIVE) 08/30/17 08/30/17 08/30/17 Range/Units 20:41 20:30 18:25 WBC 16.1 H (4.8-10.8) K/uL RBC 3.31 L (3.80-5.20) Mil/uL Hgb 9.2 L (11.0-16.0) g/dL Hct 29.2 L (34.0-47.0) % MCV 88.2 D (81.0-99.0) fL MCH 27.8 (27.0-31.0) pg MCHC 31.5 L (33.0-37.0) g/dL RDW 16.6 H (11.5-14.5) % Plt Count 127 L (130-400) K/uL MPV 9.2 (7.2-11.7) fL Neut % (Auto) (50.0-75.0) % Lymph % (Auto) (20.0-40.0) % [place] % (Auto) (0.0-10.0) % Eos % (Auto) (0.0-4.0) % Baso % (Auto) (0.0-2.0) % Neut # (Auto) (1.8-7.0) K/uL Lymph # (Auto) (1.0-4.3) K/uL [place] # (Auto) (0.0-0.8) K/uL Eos # (Auto) (0.0-0.7) K/uL Baso # (Auto) (0.0-0.2) K/uL Neutrophils % (Manual) (50-75) % Band Neutrophils % (0-2) % Lymphocytes % (Manual) (20-40) % Monocytes % (Manual) (0-10) % Nucleated RBC % (0-0) % Differential Comment Platelet Estimate (NORMAL) Hypochromasia (manual) Ovalocytes APTT 40 H D (21-34) SECONDS Puncture Site Rba pCO2 26 L (35-45) mm/Hg pO2 202 H (80-100) mm/Hg HCO3 10.7 L (21-28) mmol/L ABG pH 7.15 L* (7.35-7.45) ABG Total CO2 9.9 L (22-28) mmol/L ABG O2 Saturation 99.7 H (95-98) % ABG Base Excess -18.2 L (-2.0-3.0) mmol/L ABG Hemoglobin 11.4 L (11.7-17.4) g/dL ABG Carboxyhemoglobin 1.7 H (0.5-1.5) % POC ABG HHb (Measured) 0.3 (0.0-5.0) % ABG Methemoglobin 1.5 (0.0-3.0) % Christian Test Pos VBG pH (7.32-7.43) VBG pCO2 (40-60) mmHg VBG HCO3 mmol/L VBG O2 Sat (Calc) (40-65) % VBG Base Excess (0.0-2.0) mmol/L A-a O2 Difference 479.0 mm/Hg Respiratory Index 2.4 Hgb O2 Saturation 96.5 (95.0-98.0) % Vent Mode Prvc Mechanical Rate 14 FiO2 100.0 % Tidal Volume 500 PEEP 5 Crit Value Called To Dr griffin Crit Value Called By [facility] Crit Value Read Back Y Blood Gas Notified Time 2035 Sodium (132-148) mmol/L Potassium (3.6-5.2) mmol/L Chloride (98-107) mmol/L Carbon Dioxide (22-30) mmol/L Anion Gap (10-20) BUN (7-17) mg/dL Creatinine (0.7-1.2) mg/dL Est GFR ( Amer) Est GFR (Non-Af Amer) POC Glucose (mg/dL) (65-110) mg/dL Random Glucose (65-105) mg/dL Calcium (8.6-10.4) mg/dl Magnesium (1.6-2.3) mg/dL Iron (37-170) ug/dL TIBC (250-450) ug/dL % Saturation (20-55) Ferritin ng/mL Total Bilirubin (0.2-1.3) mg/dL AST (14-36) U/L ALT (9-52) U/L Alkaline Phosphatase (38-126) U/L Troponin I (0.00-0.120) ng/mL Total Protein (6.3-8.3) g/dL Albumin (3.5-5.0) g/dL Globulin (2.2-3.9) gm/dL Albumin/Globulin Ratio (1.0-2.1) Triglycerides (0-149) mg/dL Cholesterol (0-199) mg/dL LDL Cholesterol Direct (0-129) mg/dL HDL Cholesterol (30-70) mg/dL 25-OH Vitamin D Total (30.0-100.0) NG/ML Procalcitonin (0.19-0.49) NG/ML Vancomycin Trough (5.0-10.0) ug/mL Hep Bs Antigen (NEGATIVE) Hep Bs Antibody (NEGATIVE) Hep B Core IgM Ab (NEGATIVE) Hepatitis C Antibody (NEGATIVE) 08/30/17 08/30/17 08/30/17 Range/Units 17:41 16:13 12:19 WBC (4.8-10.8) K/uL RBC (3.80-5.20) Mil/uL Hgb (11.0-16.0) g/dL Hct (34.0-47.0) % MCV (81.0-99.0) fL MCH (27.0-31.0) pg MCHC (33.0-37.0) g/dL RDW (11.5-14.5) % Plt Count (130-400) K/uL MPV (7.2-11.7) fL Neut % (Auto) (50.0-75.0) % Lymph % (Auto) (20.0-40.0) % [place] % (Auto) (0.0-10.0) % Eos % (Auto) (0.0-4.0) % Baso % (Auto) (0.0-2.0) % Neut # (Auto) (1.8-7.0) K/uL Lymph # (Auto) (1.0-4.3) K/uL [place] # (Auto) (0.0-0.8) K/uL Eos # (Auto) (0.0-0.7) K/uL Baso # (Auto) (0.0-0.2) K/uL Neutrophils % (Manual) (50-75) % Band Neutrophils % (0-2) % Lymphocytes % (Manual) (20-40) % Monocytes % (Manual) (0-10) % Nucleated RBC % (0-0) % Differential Comment Platelet Estimate (NORMAL) Hypochromasia (manual) Ovalocytes APTT (21-34) SECONDS Puncture Site pCO2 (35-45) mm/Hg pO2 (80-100) mm/Hg HCO3 (21-28) mmol/L ABG pH (7.35-7.45) ABG Total CO2 (22-28) mmol/L ABG O2 Saturation (95-98) % ABG Base Excess (-2.0-3.0) mmol/L ABG Hemoglobin (11.7-17.4) g/dL ABG Carboxyhemoglobin (0.5-1.5) % POC ABG HHb (Measured) (0.0-5.0) % ABG Methemoglobin (0.0-3.0) % Christian Test VBG pH (7.32-7.43) VBG pCO2 (40-60) mmHg VBG HCO3 mmol/L VBG O2 Sat (Calc) (40-65) % VBG Base Excess (0.0-2.0) mmol/L A-a O2 Difference mm/Hg Respiratory Index Hgb O2 Saturation (95.0-98.0) % Vent Mode Mechanical Rate FiO2 % Tidal Volume PEEP Crit Value Called To Crit Value Called By Crit Value Read Back Blood Gas Notified Time Sodium (132-148) mmol/L Potassium (3.6-5.2) mmol/L Chloride (98-107) mmol/L Carbon Dioxide (22-30) mmol/L Anion Gap (10-20) BUN (7-17) mg/dL Creatinine (0.7-1.2) mg/dL Est GFR ( Amer) Est GFR (Non-Af Amer) POC Glucose (mg/dL) 384 H (65-110) mg/dL Random Glucose (65-105) mg/dL Calcium (8.6-10.4) mg/dl Magnesium (1.6-2.3) mg/dL Iron (37-170) ug/dL TIBC (250-450) ug/dL % Saturation (20-55) Ferritin ng/mL Total Bilirubin (0.2-1.3) mg/dL AST (14-36) U/L ALT (9-52) U/L Alkaline Phosphatase (38-126) U/L Troponin I (0.00-0.120) ng/mL Total Protein (6.3-8.3) g/dL Albumin (3.5-5.0) g/dL Globulin (2.2-3.9) gm/dL Albumin/Globulin Ratio (1.0-2.1) Triglycerides (0-149) mg/dL Cholesterol (0-199) mg/dL LDL Cholesterol Direct (0-129) mg/dL HDL Cholesterol (30-70) mg/dL 25-OH Vitamin D Total (30.0-100.0) NG/ML Procalcitonin (0.19-0.49) NG/ML Vancomycin Trough < 5.0 L (5.0-10.0) ug/mL Hep Bs Antigen (NEGATIVE) Hep Bs Antibody Negative (NEGATIVE) Hep B Core IgM Ab (NEGATIVE) Hepatitis C Antibody (NEGATIVE) 08/30/17 08/30/17 08/30/17 Range/Units 12:19 12:19 12:19 WBC (4.8-10.8) K/uL RBC (3.80-5.20) Mil/uL Hgb (11.0-16.0) g/dL Hct (34.0-47.0) % MCV (81.0-99.0) fL MCH (27.0-31.0) pg MCHC (33.0-37.0) g/dL RDW (11.5-14.5) % Plt Count (130-400) K/uL MPV (7.2-11.7) fL Neut % (Auto) (50.0-75.0) % Lymph % (Auto) (20.0-40.0) % [place] % (Auto) (0.0-10.0) % Eos % (Auto) (0.0-4.0) % Baso % (Auto) (0.0-2.0) % Neut # (Auto) (1.8-7.0) K/uL Lymph # (Auto) (1.0-4.3) K/uL [place] # (Auto) (0.0-0.8) K/uL Eos # (Auto) (0.0-0.7) K/uL Baso # (Auto) (0.0-0.2) K/uL Neutrophils % (Manual) (50-75) % Band Neutrophils % (0-2) % Lymphocytes % (Manual) (20-40) % Monocytes % (Manual) (0-10) % Nucleated RBC % (0-0) % Differential Comment Platelet Estimate (NORMAL) Hypochromasia (manual) Ovalocytes APTT 31 (21-34) SECONDS Puncture Site pCO2 (35-45) mm/Hg pO2 (80-100) mm/Hg HCO3 (21-28) mmol/L ABG pH (7.35-7.45) ABG Total CO2 (22-28) mmol/L ABG O2 Saturation (95-98) % ABG Base Excess (-2.0-3.0) mmol/L ABG Hemoglobin (11.7-17.4) g/dL ABG Carboxyhemoglobin (0.5-1.5) % POC ABG HHb (Measured) (0.0-5.0) % ABG Methemoglobin (0.0-3.0) % Christian Test VBG pH (7.32-7.43) VBG pCO2 (40-60) mmHg VBG HCO3 mmol/L VBG O2 Sat (Calc) (40-65) % VBG Base Excess (0.0-2.0) mmol/L A-a O2 Difference mm/Hg Respiratory Index Hgb O2 Saturation (95.0-98.0) % Vent Mode Mechanical Rate FiO2 % Tidal Volume PEEP Crit Value Called To Crit Value Called By Crit Value Read Back Blood Gas Notified Time Sodium (132-148) mmol/L Potassium (3.6-5.2) mmol/L Chloride (98-107) mmol/L Carbon Dioxide (22-30) mmol/L Anion Gap (10-20) BUN (7-17) mg/dL Creatinine (0.7-1.2) mg/dL Est GFR ( Amer) Est GFR (Non-Af Amer) POC Glucose (mg/dL) (65-110) mg/dL Random Glucose (65-105) mg/dL Calcium (8.6-10.4) mg/dl Magnesium (1.6-2.3) mg/dL Iron 18 L (37-170) ug/dL TIBC 196 L (250-450) ug/dL % Saturation 9 L (20-55) Ferritin 195.0 ng/mL Total Bilirubin (0.2-1.3) mg/dL AST (14-36) U/L ALT (9-52) U/L Alkaline Phosphatase (38-126) U/L Troponin I (0.00-0.120) ng/mL Total Protein (6.3-8.3) g/dL Albumin (3.5-5.0) g/dL Globulin (2.2-3.9) gm/dL Albumin/Globulin Ratio (1.0-2.1) Triglycerides (0-149) mg/dL Cholesterol (0-199) mg/dL LDL Cholesterol Direct (0-129) mg/dL HDL Cholesterol (30-70) mg/dL 25-OH Vitamin D Total 27.1 L (30.0-100.0) NG/ML Procalcitonin (0.19-0.49) NG/ML Vancomycin Trough (5.0-10.0) ug/mL Hep Bs Antigen Negative (NEGATIVE) Hep Bs Antibody (NEGATIVE) Hep B Core IgM Ab Negative (NEGATIVE) Hepatitis C Antibody Negative (NEGATIVE) 08/30/17 Range/Units 08:34 WBC (4.8-10.8) K/uL RBC (3.80-5.20) Mil/uL Hgb (11.0-16.0) g/dL Hct (34.0-47.0) % MCV (81.0-99.0) fL MCH (27.0-31.0) pg MCHC (33.0-37.0) g/dL RDW (11.5-14.5) % Plt Count (130-400) K/uL MPV (7.2-11.7) fL Neut % (Auto) (50.0-75.0) % Lymph % (Auto) (20.0-40.0) % [place] % (Auto) (0.0-10.0) % Eos % (Auto) (0.0-4.0) % Baso % (Auto) (0.0-2.0) % Neut # (Auto) (1.8-7.0) K/uL Lymph # (Auto) (1.0-4.3) K/uL [place] # (Auto) (0.0-0.8) K/uL Eos # (Auto) (0.0-0.7) K/uL Baso # (Auto) (0.0-0.2) K/uL Neutrophils % (Manual) (50-75) % Band Neutrophils % (0-2) % Lymphocytes % (Manual) (20-40) % Monocytes % (Manual) (0-10) % Nucleated RBC % (0-0) % Differential Comment Platelet Estimate (NORMAL) Hypochromasia (manual) Ovalocytes APTT (21-34) SECONDS Puncture Site pCO2 (35-45) mm/Hg pO2 (80-100) mm/Hg HCO3 (21-28) mmol/L ABG pH (7.35-7.45) ABG Total CO2 (22-28) mmol/L ABG O2 Saturation (95-98) % ABG Base Excess (-2.0-3.0) mmol/L ABG Hemoglobin (11.7-17.4) g/dL ABG Carboxyhemoglobin (0.5-1.5) % POC ABG HHb (Measured) (0.0-5.0) % ABG Methemoglobin (0.0-3.0) % Christian Test VBG pH (7.32-7.43) VBG pCO2 (40-60) mmHg VBG HCO3 mmol/L VBG O2 Sat (Calc) (40-65) % VBG Base Excess (0.0-2.0) mmol/L A-a O2 Difference mm/Hg Respiratory Index Hgb O2 Saturation (95.0-98.0) % Vent Mode Mechanical Rate FiO2 % Tidal Volume PEEP Crit Value Called To Crit Value Called By Crit Value Read Back Blood Gas Notified Time Sodium (132-148) mmol/L Potassium (3.6-5.2) mmol/L Chloride (98-107) mmol/L Carbon Dioxide (22-30) mmol/L Anion Gap (10-20) BUN (7-17) mg/dL Creatinine (0.7-1.2) mg/dL Est GFR ( Amer) Est GFR (Non-Af Amer) POC Glucose (mg/dL) (65-110) mg/dL Random Glucose (65-105) mg/dL Calcium (8.6-10.4) mg/dl Magnesium (1.6-2.3) mg/dL Iron (37-170) ug/dL TIBC (250-450) ug/dL % Saturation (20-55) Ferritin ng/mL Total Bilirubin (0.2-1.3) mg/dL AST (14-36) U/L ALT (9-52) U/L Alkaline Phosphatase (38-126) U/L Troponin I (0.00-0.120) ng/mL Total Protein (6.3-8.3) g/dL Albumin (3.5-5.0) g/dL Globulin (2.2-3.9) gm/dL Albumin/Globulin Ratio (1.0-2.1) Triglycerides (0-149) mg/dL Cholesterol (0-199) mg/dL LDL Cholesterol Direct (0-129) mg/dL HDL Cholesterol (30-70) mg/dL 25-OH Vitamin D Total (30.0-100.0) NG/ML Procalcitonin 54.73 H (0.19-0.49) NG/ML Vancomycin Trough (5.0-10.0) ug/mL Hep Bs Antigen (NEGATIVE) Hep Bs Antibody (NEGATIVE) Hep B Core IgM Ab (NEGATIVE) Hepatitis C Antibody (NEGATIVE) Laboratory Results - last 24 hr 08/30/17 08/30/17 08/30/17 08:34 12:19 12:19 WBC RBC Hgb Hct MCV MCH MCHC RDW Plt Count MPV Neut % (Auto) Lymph % (Auto) [place] % (Auto) Eos % (Auto) Baso % (Auto) Neut # (Auto) Lymph # (Auto) [place] # (Auto) Eos # (Auto) Baso # (Auto) Neutrophils % (Manual) Band Neutrophils % Lymphocytes % (Manual) Monocytes % (Manual) Nucleated RBC % Differential Comment Platelet Estimate Hypochromasia (manual) Ovalocytes APTT 31 Puncture Site pCO2 pO2 HCO3 ABG pH ABG Total CO2 ABG O2 Saturation ABG Base Excess ABG Hemoglobin ABG Carboxyhemoglobin POC ABG HHb (Measured) ABG Methemoglobin Christian Test VBG pH VBG pCO2 VBG HCO3 VBG O2 Sat (Calc) VBG Base Excess A-a O2 Difference Respiratory Index Hgb O2 Saturation Vent Mode Mechanical Rate FiO2 Tidal Volume PEEP Crit Value Called To Crit Value Called By Crit Value Read Back Blood Gas Notified Time Sodium Potassium Chloride Carbon Dioxide Anion Gap BUN Creatinine Est GFR ( Amer) Est GFR (Non-Af Amer) POC Glucose (mg/dL) Random Glucose Calcium Magnesium Iron 18 L TIBC 196 L % Saturation 9 L Ferritin Total Bilirubin AST ALT Alkaline Phosphatase Troponin I Total Protein Albumin Globulin Albumin/Globulin Ratio Triglycerides Cholesterol LDL Cholesterol Direct HDL Cholesterol 25-OH Vitamin D Total 27.1 L Procalcitonin 54.73 H Vancomycin Trough Hep Bs Antigen Hep Bs Antibody Hep B Core IgM Ab Hepatitis C Antibody 08/30/17 08/30/17 08/30/17 12:19 12:19 16:13 WBC RBC Hgb Hct MCV MCH MCHC RDW Plt Count MPV Neut % (Auto) Lymph % (Auto) [place] % (Auto) Eos % (Auto) Baso % (Auto) Neut # (Auto) Lymph # (Auto) [place] # (Auto) Eos # (Auto) Baso # (Auto) Neutrophils % (Manual) Band Neutrophils % Lymphocytes % (Manual) Monocytes % (Manual) Nucleated RBC % Differential Comment Platelet Estimate Hypochromasia (manual) Ovalocytes APTT Puncture Site pCO2 pO2 HCO3 ABG pH ABG Total CO2 ABG O2 Saturation ABG Base Excess ABG Hemoglobin ABG Carboxyhemoglobin POC ABG HHb (Measured) ABG Methemoglobin Christian Test VBG pH VBG pCO2 VBG HCO3 VBG O2 Sat (Calc) VBG Base Excess A-a O2 Difference Respiratory Index Hgb O2 Saturation Vent Mode Mechanical Rate FiO2 Tidal Volume PEEP Crit Value Called To Crit Value Called By Crit Value Read Back Blood Gas Notified Time Sodium Potassium Chloride Carbon Dioxide Anion Gap BUN Creatinine Est GFR ( Amer) Est GFR (Non-Af Amer) POC Glucose (mg/dL) 384 H Random Glucose Calcium Magnesium Iron TIBC % Saturation Ferritin 195.0 Total Bilirubin AST ALT Alkaline Phosphatase Troponin I Total Protein Albumin Globulin Albumin/Globulin Ratio Triglycerides Cholesterol LDL Cholesterol Direct HDL Cholesterol 25-OH Vitamin D Total Procalcitonin Vancomycin Trough Hep Bs Antigen Negative Hep Bs Antibody Negative Hep B Core IgM Ab Negative Hepatitis C Antibody Negative 08/30/17 08/30/17 08/30/17 17:41 18:25 20:30 WBC RBC Hgb Hct MCV MCH MCHC RDW Plt Count MPV Neut % (Auto) Lymph % (Auto) [place] % (Auto) Eos % (Auto) Baso % (Auto) Neut # (Auto) Lymph # (Auto) [place] # (Auto) Eos # (Auto) Baso # (Auto) Neutrophils % (Manual) Band Neutrophils % Lymphocytes % (Manual) Monocytes % (Manual) Nucleated RBC % Differential Comment Platelet Estimate Hypochromasia (manual) Ovalocytes APTT 40 H D Puncture Site Rba pCO2 26 L pO2 202 H HCO3 10.7 L ABG pH 7.15 L* ABG Total CO2 9.9 L ABG O2 Saturation 99.7 H ABG Base Excess -18.2 L ABG Hemoglobin 11.4 L ABG Carboxyhemoglobin 1.7 H POC ABG HHb (Measured) 0.3 ABG Methemoglobin 1.5 Christian Test Pos VBG pH VBG pCO2 VBG HCO3 VBG O2 Sat (Calc) VBG Base Excess A-a O2 Difference 479.0 Respiratory Index 2.4 Hgb O2 Saturation 96.5 Vent Mode Prvc Mechanical Rate 14 FiO2 100.0 Tidal Volume 500 PEEP 5 Crit Value Called To Dr griffin Crit Value Called By [facility] Crit Value Read Back Y Blood Gas Notified Time 2035 Sodium Potassium Chloride Carbon Dioxide Anion Gap BUN Creatinine Est GFR ( Amer) Est GFR (Non-Af Amer) POC Glucose (mg/dL) Random Glucose Calcium Magnesium Iron TIBC % Saturation Ferritin Total Bilirubin AST ALT Alkaline Phosphatase Troponin I Total Protein Albumin Globulin Albumin/Globulin Ratio Triglycerides Cholesterol LDL Cholesterol Direct HDL Cholesterol 25-OH Vitamin D Total Procalcitonin Vancomycin Trough < 5.0 L Hep Bs Antigen Hep Bs Antibody Hep B Core IgM Ab Hepatitis C Antibody 08/30/17 08/30/17 08/31/17 20:41 20:41 00:04 WBC 16.1 H RBC 3.31 L Hgb 9.2 L Hct 29.2 L MCV 88.2 D MCH 27.8 MCHC 31.5 L RDW 16.6 H Plt Count 127 L MPV 9.2 Neut % (Auto) Lymph % (Auto) [place] % (Auto) Eos % (Auto) Baso % (Auto) Neut # (Auto) Lymph # (Auto) [place] # (Auto) Eos # (Auto) Baso # (Auto) Neutrophils % (Manual) Band Neutrophils % Lymphocytes % (Manual) Monocytes % (Manual) Nucleated RBC % Differential Comment Platelet Estimate Hypochromasia (manual) Ovalocytes APTT Puncture Site pCO2 pO2 HCO3 ABG pH ABG Total CO2 ABG O2 Saturation ABG Base Excess ABG Hemoglobin ABG Carboxyhemoglobin POC ABG HHb (Measured) ABG Methemoglobin Christian Test VBG pH VBG pCO2 VBG HCO3 VBG O2 Sat (Calc) VBG Base Excess A-a O2 Difference Respiratory Index Hgb O2 Saturation Vent Mode Mechanical Rate FiO2 Tidal Volume PEEP Crit Value Called To Crit Value Called By Crit Value Read Back Blood Gas Notified Time Sodium 146 Potassium 5.1 Chloride 108 H Carbon Dioxide 12 L Anion Gap 31 H BUN 91 H Creatinine 6.2 H Est GFR ( Amer) 8 Est GFR (Non-Af Amer) 7 POC Glucose (mg/dL) 223 H Random Glucose 333 H Calcium 8.4 L Magnesium 2.5 H Iron TIBC % Saturation Ferritin Total Bilirubin AST ALT Alkaline Phosphatase Troponin I 79.7000 H* Total Protein Albumin Globulin Albumin/Globulin Ratio Triglycerides Cholesterol LDL Cholesterol Direct HDL Cholesterol 25-OH Vitamin D Total Procalcitonin Vancomycin Trough Hep Bs Antigen Hep Bs Antibody Hep B Core IgM Ab Hepatitis C Antibody 08/31/17 08/31/17 08/31/17 00:29 03:18 03:18 WBC 14.6 H RBC 3.31 L Hgb 9.2 L Hct 28.4 L MCV 85.7 D MCH 27.7 MCHC 32.3 L RDW 16.4 H Plt Count 132 MPV 8.7 Neut % (Auto) 89.2 H Lymph % (Auto) 6.7 L [place] % (Auto) 3.9 Eos % (Auto) 0.0 Baso % (Auto) 0.2 Neut # (Auto) 13.1 H Lymph # (Auto) 1.0 [place] # (Auto) 0.6 Eos # (Auto) 0.0 Baso # (Auto) 0.0 Neutrophils % (Manual) 89 H Band Neutrophils % 6 H Lymphocytes % (Manual) 3 L Monocytes % (Manual) 2 Nucleated RBC % 6 H Differential Comment Platelet Estimate Normal Hypochromasia (manual) Slight Ovalocytes Slight APTT Puncture Site Drawn by rn pCO2 pO2 19 L HCO3 ABG pH ABG Total CO2 ABG O2 Saturation ABG Base Excess ABG Hemoglobin ABG Carboxyhemoglobin POC ABG HHb (Measured) ABG Methemoglobin Christian Test Na VBG pH 7.20 L VBG pCO2 42 VBG HCO3 14.0 VBG O2 Sat (Calc) 30.5 L VBG Base Excess -11.2 L A-a O2 Difference Respiratory Index Hgb O2 Saturation Vent Mode Mechanical Rate FiO2 Tidal Volume PEEP Crit Value Called To Dr griffin Crit Value Called By Yaneth resendiz rt Crit Value Read Back Y Blood Gas Notified Time 30 Sodium 150 H Potassium 4.7 Chloride 108 H Carbon Dioxide 16 L Anion Gap 32 H BUN 93 H Creatinine 6.2 H Est GFR ( Amer) 8 Est GFR (Non-Af Amer) 7 POC Glucose (mg/dL) Random Glucose 125 H Calcium 8.1 L Magnesium Iron TIBC % Saturation Ferritin Total Bilirubin 2.0 H AST 254 H D ALT 108 H D Alkaline Phosphatase 77 Troponin I Total Protein 5.8 L Albumin 2.9 L Globulin 2.9 Albumin/Globulin Ratio 1.0 Triglycerides Cholesterol LDL Cholesterol Direct HDL Cholesterol 25-OH Vitamin D Total Procalcitonin Vancomycin Trough Hep Bs Antigen Hep Bs Antibody Hep B Core IgM Ab Hepatitis C Antibody 08/31/17 08/31/17 08/31/17 03:18 03:20 05:18 WBC RBC Hgb Hct MCV MCH MCHC RDW Plt Count MPV Neut % (Auto) Lymph % (Auto) [place] % (Auto) Eos % (Auto) Baso % (Auto) Neut # (Auto) Lymph # (Auto) [place] # (Auto) Eos # (Auto) Baso # (Auto) Neutrophils % (Manual) Band Neutrophils % Lymphocytes % (Manual) Monocytes % (Manual) Nucleated RBC % Differential Comment Platelet Estimate Hypochromasia (manual) Ovalocytes APTT 126 H* D Puncture Site Rb pCO2 21 L pO2 360 H HCO3 14.6 L ABG pH 7.33 L ABG Total CO2 11.7 L ABG O2 Saturation 99.7 H ABG Base Excess -13.2 L ABG Hemoglobin 9.2 L ABG Carboxyhemoglobin 1.4 POC ABG HHb (Measured) 0.3 ABG Methemoglobin 1.3 Christian Test Na VBG pH VBG pCO2 VBG HCO3 VBG O2 Sat (Calc) VBG Base Excess A-a O2 Difference 327.0 Respiratory Index 0.9 Hgb O2 Saturation 96.9 Vent Mode Prvc Mechanical Rate 24 FiO2 100.0 Tidal Volume 550 PEEP 5 Crit Value Called To Crit Value Called By Crit Value Read Back Blood Gas Notified Time Sodium Potassium Chloride Carbon Dioxide Anion Gap BUN Creatinine Est GFR ( Amer) Est GFR (Non-Af Amer) POC Glucose (mg/dL) Random Glucose Calcium Magnesium Iron TIBC % Saturation Ferritin Total Bilirubin AST ALT Alkaline Phosphatase Troponin I Total Protein Albumin Globulin Albumin/Globulin Ratio Triglycerides 82 D Cholesterol 173 LDL Cholesterol Direct 42 HDL Cholesterol 56 25-OH Vitamin D Total Procalcitonin Vancomycin Trough Hep Bs Antigen Hep Bs Antibody Hep B Core IgM Ab Hepatitis C Antibody 08/31/17 05:24 WBC RBC Hgb Hct MCV MCH MCHC RDW Plt Count MPV Neut % (Auto) Lymph % (Auto) [place] % (Auto) Eos % (Auto) Baso % (Auto) Neut # (Auto) Lymph # (Auto) [place] # (Auto) Eos # (Auto) Baso # (Auto) Neutrophils % (Manual) Band Neutrophils % Lymphocytes % (Manual) Monocytes % (Manual) Nucleated RBC % Differential Comment Platelet Estimate Hypochromasia (manual) Ovalocytes APTT Puncture Site pCO2 pO2 HCO3 ABG pH ABG Total CO2 ABG O2 Saturation ABG Base Excess ABG Hemoglobin ABG Carboxyhemoglobin POC ABG HHb (Measured) ABG Methemoglobin Christian Test VBG pH VBG pCO2 VBG HCO3 VBG O2 Sat (Calc) VBG Base Excess A-a O2 Difference Respiratory Index Hgb O2 Saturation Vent Mode Mechanical Rate FiO2 Tidal Volume PEEP Crit Value Called To Crit Value Called By Crit Value Read Back Blood Gas Notified Time Sodium Potassium Chloride Carbon Dioxide Anion Gap BUN Creatinine Est GFR ( Amer) Est GFR (Non-Af Amer) POC Glucose (mg/dL) 118 H Random Glucose Calcium Magnesium Iron TIBC % Saturation Ferritin Total Bilirubin AST ALT Alkaline Phosphatase Troponin I Total Protein Albumin Globulin Albumin/Globulin Ratio Triglycerides Cholesterol LDL Cholesterol Direct HDL Cholesterol 25-OH Vitamin D Total Procalcitonin Vancomycin Trough Hep Bs Antigen Hep Bs Antibody Hep B Core IgM Ab Hepatitis C Antibody EKG/Cardiology Studies: Cardiology / EKG Studies 08/30/17 10:36 ELECTROCARDIOGRAM Stat Comment: Mode Of Transportation: PORTABLE Reason For Exam: NSTMI Precautions: Standard Critical Care Progress Note - Nutrition Nutrition: Nutrition Category Date Time Status NPO Diet [DIET] Diets 08/30/17 Breakfast Active Assessment/Plan - Assessment and Plan (Free Text) Plan: Patient admitted to ICU for MN/CKD/JULIA -obtain cardiology input possible PCI -obtain nephrology input regarding HD via left AV fistula - Date & Time Date: 08/30/17 Time: 19:00
[2017-08-30] MEDS ORDERED: (Novolog) Insulin Aspart, Recombinant 100 u/ml 10 ml vial SC SCH ×2 (12:00)
--- NOTE | 2017-08-30 12:51 | CP.PCM.CON ---
History of Present Illness - History of Present Illness History of Present Illness: Ms. Stauffer is basically a 76-year-old lady with history of diabetes mellitus, hypertension, and dyslipidemia. She is also with history of colon malignancy post resection in 2009. 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 I last follow-up with her since 2012. Apparently since then she had deteriorated renal function and interested a was placed not on hemodialysis yet. At this time she was brought to the emergency room with change of mentation and addition to hyperglycemia. She was with severe metabolic acidosis in addition to pulmonary infiltrate and pleural effusion. Her white count is elevated significant for severe sepsis. She's been treated for such in addition troponin was elevated and she's been treated as a non-ST elevation myocardial infarction. On prior evaluation she had normal left ventricular contractility on echo namely in October 2016. At this time repeat of on echo revealed severely depressed left ventricular contractility with ejection fraction about 30 % and inferior akinesia, also with severe pulmonary hypertension and an estimated right ventricular systolic pressure of 60 mmHg with severely dilated RA and RV. No pericardial effusion however with large pleural septated effusion. With altered mentation, elevated white count, severe acidosis, lactic acid, D Dimer it's probably severe sepsis that led to her complaints and presentation. Acute on chronic kidney injury. the new depression of myocardiac contractility with severely elevated troponin and proBNP, speaks highly of acute coronary event without acute EKG changes however ID and CHF Does not explain the above finding. With severe sepsis and severe pulmonary hypertension acute coronary intervention is probably with a high risk and would not help us with the overall picture at this time. We will go ahead with the treatment of sepsis, attempt to evaluate the pleural effusion, hemodialysis. And eventually interventional cardiac management would be attempted. Review of Systems - Review of Systems Systems not reviewed;Unavailable: Acuity of Condition, Altered Mental Status - Constitutional Constitutional: Anorexia, Weakness - EENT Eyes: absent: Discharge Ears: absent: Ear Discharge, Dizziness Nose/Mouth/Throat: absent: Epistaxis - Cardiovascular Cardiovascular: absent: Acrocyanosis, Chest Pain, Diaphoresis, Palpitations, Syncope - Respiratory Respiratory: absent: Cough, Dyspnea, Hemoptysis - Gastrointestinal Gastrointestinal: absent: Abdominal Pain, Diarrhea, Vomiting - Genitourinary Genitourinary: absent: Change in Urinary Stream - Reproductive: Female Reproductive:Female: Post Menopausal - Neurological Neurological: Behavioral Changes Past Patient History - Infectious Disease Hx of Infectious Diseases: None - Tetanus Immunizations Tetanus Immunization: Unknown - Past Medical History & Family History Past Medical History?: Yes - Past Social History Smoking Status: Former Smoker - CARDIAC Hx Hypercholesterolemia: Yes Hx Hypertension: Yes Hx Peripheral Edema: Yes - PULMONARY Hx Asthma: Yes (Dx 15 yrs ago,does not use home o2 anymore) Hx Pneumonia: Yes (x2) - NEUROLOGICAL Hx Transient Ischemic Attacks (TIA): Yes (x3 about 20 yrs ago, 10 yrs ago, 7 yrs ago) - HEENT Hx HEENT Problems: Yes Hx Cataracts: Yes - RENAL Hx Chronic Kidney Disease: Yes - ENDOCRINE/METABOLIC Hx Diabetes Mellitus Type 1: Yes - HEMATOLOGICAL/ONCOLOGICAL Hx Anemia: Yes - INTEGUMENTARY Hx Dermatological Problems: No - MUSCULOSKELETAL/RHEUMATOLOGICAL Hx Arthritis: Yes Hx Fractures: Yes (Right ankle) - GASTROINTESTINAL Hx Gastrointestinal Disorders: Yes Other/Comment: Hx colon cancer - GENITOURINARY/GYNECOLOGICAL Hx Genitourinary Disorders: Yes Other/Comment: Colon CA - PSYCHIATRIC Hx Depression: No Hx Substance Use: No - SURGICAL HISTORY Hx Cataract Extraction: Yes (LEFT) - ANESTHESIA Hx Anesthesia: Yes Hx Anesthesia Reactions: No Hx Malignant Hyperthermia: No Meds Allergies/Adverse Reactions: Allergies Allergy/AdvReac Type Severity Reaction Status Date / Time Penicillins Allergy Intermediate RASH Verified 08/29/17 20:11 - Medications Medications: Current Medications Aspirin (Aspirin Chewable) 81 mg PO DAILY [facility] Last Admin: 08/30/17 09:49 Dose: 81 mg Calcium Acetate (Phoslo) 667 mg PO TID [facility] Epoetin Alan (Procrit) 4,000 unit IV [facility] Heparin Sodium/Sodium Chloride (Heparin 17616 Units/250ml 1/2 Normal Saline) 25 ,000 units in 250 mls @ 7.076 mls/hr IV .Q24H PRN; Protocol; 12 UNITS/KG/HR PRN Reason: PROTOCOL Last Admin: 08/30/17 05:00 Dose: 12 units/kg/hr, 7.076 mls/hr Insulin Aspart (Novolog) 0 unit SC Q6 [facility] PRN Reason: Protocol Insulin Glargine (Lantus) 15 unit SC [facility] Metoprolol Tartrate (Lopressor) 25 mg PO BID [facility] Last Admin: 08/30/17 09:49 Dose: 25 mg Nitroglycerin (Nitrostat Sl Tab) 0.4 mg SL Q5M PRN PRN Reason: Other Rosuvastatin Calcium (Crestor) 5 mg PO HS [facility] Last Admin: 08/30/17 01:29 Dose: 5 mg Vitamin B Complex/Vit C/Folic Acid (Nephro-[place]) 1 tab PO 0800 [facility] Physical Exam - Constitutional Appears: Toxic - Head Exam Head Exam: ATRAUMATIC - Eye Exam Eye Exam: EOMI - ENT Exam ENT Exam: Mucous Membranes Moist - Neck Exam Neck exam: Negative for: Lymphadenopathy, Thyromegaly - Respiratory Exam Respiratory Exam: Clear to Auscultation Bilateral. absent: Rales - Cardiovascular Exam Cardiovascular Exam: REGULAR RHYTHM, Systolic Murmur - GI/Abdominal Exam GI & Abdominal Exam: Normal Bowel Sounds. absent: Organomegaly - Rectal Exam Rectal Exam: Deferred - Extremities Exam Extremities exam: Positive for: normal capillary refill. Negative for: calf tenderness - Neurological Exam Neurological exam: Alert, Altered - Psychiatric Exam Psychiatric exam: Normal Mood - Skin Skin Exam: Dry Results - Vital Signs Recent Vital Signs: Last Vital Signs Temp 98.5 F 08/30/17 08:00 Pulse 76 08/30/17 11:00 Resp 19 08/30/17 11:00 BP 92/48 L 08/30/17 10:51 Pulse Ox 100 08/30/17 11:00 - Labs Result Diagrams: 08/30/17 03:49 08/30/17 03:49 Labs: Laboratory Results - last 24 hr 08/29/17 08/29/17 08/29/17 22:18 22:51 22:51 WBC 16.3 H D RBC 3.72 L Hgb 10.3 L Hct 32.5 L MCV 87.4 MCH 27.7 MCHC 31.6 L RDW 16.7 H Plt Count 156 MPV 9.4 Neut % (Auto) 90.5 H Lymph % (Auto) 3.8 L [place] % (Auto) 4.8 Eos % (Auto) 0.0 Baso % (Auto) 0.9 Neut # (Auto) 14.8 H Lymph # (Auto) 0.6 L [place] # (Auto) 0.8 Eos # (Auto) 0.0 Baso # (Auto) 0.1 Neutrophils % (Manual) 92 H Lymphocytes % (Manual) 5 L Monocytes % (Manual) 3 Platelet Estimate Normal Hypochromasia (manual) Poikilocytosis (manual Anisocytosis (manual) Ovalocytes PT INR APTT D-Dimer, Quantitative 4388 H pO2 VBG pH VBG pCO2 VBG HCO3 VBG Total CO2 VBG O2 Sat (Calc) VBG Base Excess VBG Potassium Glucose Lactate Crit Value Called To Crit Value Called By Crit Value Read Back Blood Gas Notified Time Sodium Potassium Chloride Carbon Dioxide Anion Gap BUN Creatinine Est GFR ( Amer) Est GFR (Non-Af Amer) POC Glucose (mg/dL) 467 H* Random Glucose Lactic Acid Calcium Phosphorus Magnesium Total Bilirubin AST ALT Alkaline Phosphatase Troponin I NT-Pro-B Natriuret Pep Total Protein Albumin Globulin Albumin/Globulin Ratio Triglycerides Cholesterol LDL Cholesterol Direct HDL Cholesterol Venous Blood Potassium Serum Ketones 08/29/17 08/29/17 08/30/17 22:51 23:25 01:18 WBC RBC Hgb Hct MCV MCH MCHC RDW Plt Count MPV Neut % (Auto) Lymph % (Auto) [place] % (Auto) Eos % (Auto) Baso % (Auto) Neut # (Auto) Lymph # (Auto) [place] # (Auto) Eos # (Auto) Baso # (Auto) Neutrophils % (Manual) Lymphocytes % (Manual) Monocytes % (Manual) Platelet Estimate Hypochromasia (manual) Poikilocytosis (manual Anisocytosis (manual) Ovalocytes PT INR APTT D-Dimer, Quantitative pO2 16 L VBG pH 7.16 L* VBG pCO2 40 VBG HCO3 11.9 VBG Total CO2 15.5 L VBG O2 Sat (Calc) 35.2 L VBG Base Excess -13.8 L VBG Potassium 5.8 H Glucose 562 H* D Lactate 2.5 H Crit Value Called To Willow dobson/rn Crit Value Called By Shoaib anderson/rt Crit Value Read Back Y Blood Gas Notified Time 2335 Sodium 137 139.0 Potassium 6.5 H* D Chloride 105 103.0 Carbon Dioxide 11 L* D Anion Gap 28 H BUN 74 H Creatinine 4.7 H Est GFR ( Amer) 11 Est GFR (Non-Af Amer) 9 POC Glucose (mg/dL) 362 H Random Glucose 559 H* D Lactic Acid Calcium 8.0 L Phosphorus Magnesium Total Bilirubin 1.6 H AST 193 H ALT 54 H D Alkaline Phosphatase 96 Troponin I 103.0000 H* NT-Pro-B Natriuret Pep 16410 H Total Protein 7.3 Albumin 3.6 Globulin 3.7 Albumin/Globulin Ratio 1.0 Triglycerides Cholesterol LDL Cholesterol Direct HDL Cholesterol Venous Blood Potassium 5.8 H Serum Ketones Negative 08/30/17 08/30/17 08/30/17 02:01 02:17 03:49 WBC 15.7 H RBC 3.48 L Hgb 9.6 L Hct 29.6 L MCV 85.2 D MCH 27.7 MCHC 32.5 L RDW 16.2 H Plt Count 143 MPV 8.9 Neut % (Auto) 90.5 H Lymph % (Auto) 3.4 L [place] % (Auto) 5.6 Eos % (Auto) 0.0 Baso % (Auto) 0.5 Neut # (Auto) 14.2 H Lymph # (Auto) 0.5 L [place] # (Auto) 0.9 H Eos # (Auto) 0.0 Baso # (Auto) 0.1 Neutrophils % (Manual) 93 H Lymphocytes % (Manual) 4 L Monocytes % (Manual) 3 Platelet Estimate Normal Hypochromasia (manual) Slight Poikilocytosis (manual Slight Anisocytosis (manual) Slight Ovalocytes Slight PT 14.6 H INR 1.3 APTT 29 D-Dimer, Quantitative pO2 VBG pH VBG pCO2 VBG HCO3 VBG Total CO2 VBG O2 Sat (Calc) VBG Base Excess VBG Potassium Glucose Lactate Crit Value Called To Crit Value Called By Crit Value Read Back Blood Gas Notified Time Sodium Potassium Chloride Carbon Dioxide Anion Gap BUN Creatinine Est GFR ( Amer) Est GFR (Non-Af Amer) POC Glucose (mg/dL) 374 H Random Glucose Lactic Acid Calcium Phosphorus Magnesium Total Bilirubin AST ALT Alkaline Phosphatase Troponin I NT-Pro-B Natriuret Pep Total Protein Albumin Globulin Albumin/Globulin Ratio Triglycerides Cholesterol LDL Cholesterol Direct HDL Cholesterol Venous Blood Potassium Serum Ketones 08/30/17 08/30/17 08/30/17 03:49 03:49 05:00 WBC RBC Hgb Hct MCV MCH MCHC RDW Plt Count MPV Neut % (Auto) Lymph % (Auto) [place] % (Auto) Eos % (Auto) Baso % (Auto) Neut # (Auto) Lymph # (Auto) [place] # (Auto) Eos # (Auto) Baso # (Auto) Neutrophils % (Manual) Lymphocytes % (Manual) Monocytes % (Manual) Platelet Estimate Hypochromasia (manual) Poikilocytosis (manual Anisocytosis (manual) Ovalocytes PT INR APTT D-Dimer, Quantitative pO2 VBG pH VBG pCO2 VBG HCO3 VBG Total CO2 VBG O2 Sat (Calc) VBG Base Excess VBG Potassium Glucose Lactate Crit Value Called To Crit Value Called By Crit Value Read Back Blood Gas Notified Time Sodium 139 Potassium 5.9 H Chloride 106 Carbon Dioxide 16 L Anion Gap 24 H BUN 79 H Creatinine 5.2 H Est GFR ( Amer) 10 Est GFR (Non-Af Amer) 8 POC Glucose (mg/dL) Random Glucose 415 H* D Lactic Acid 3.4 H Calcium 8.6 Phosphorus 5.8 H Magnesium 2.1 Total Bilirubin AST ALT Alkaline Phosphatase Troponin I 96.9000 H* NT-Pro-B Natriuret Pep Total Protein Albumin Globulin Albumin/Globulin Ratio Triglycerides 170 H D Cholesterol 228 H LDL Cholesterol Direct 68 HDL Cholesterol 61 Venous Blood Potassium Serum Ketones 08/30/17 08/30/17 08/30/17 07:47 11:15 12:19 WBC RBC Hgb Hct MCV MCH MCHC RDW Plt Count MPV Neut % (Auto) Lymph % (Auto) [place] % (Auto) Eos % (Auto) Baso % (Auto) Neut # (Auto) Lymph # (Auto) [place] # (Auto) Eos # (Auto) Baso # (Auto) Neutrophils % (Manual) Lymphocytes % (Manual) Monocytes % (Manual) Platelet Estimate Hypochromasia (manual) Poikilocytosis (manual Anisocytosis (manual) Ovalocytes PT INR APTT 31 D-Dimer, Quantitative pO2 VBG pH VBG pCO2 VBG HCO3 VBG Total CO2 VBG O2 Sat (Calc) VBG Base Excess VBG Potassium Glucose Lactate Crit Value Called To Crit Value Called By Crit Value Read Back Blood Gas Notified Time Sodium Potassium Chloride Carbon Dioxide Anion Gap BUN Creatinine Est GFR ( Amer) Est GFR (Non-Af Amer) POC Glucose (mg/dL) 349 H 345 H Random Glucose Lactic Acid Calcium Phosphorus Magnesium Total Bilirubin AST ALT Alkaline Phosphatase Troponin I NT-Pro-B Natriuret Pep Total Protein Albumin Globulin Albumin/Globulin Ratio Triglycerides Cholesterol LDL Cholesterol Direct HDL Cholesterol Venous Blood Potassium Serum Ketones Assessment & Plan (1) Severe sepsis Status: Acute Comment: With change of mental status, elevated white count, pleural effusion, severe metabolic acidosis with uncontrolled diabetes (2) Acute on chronic renal failure Status: Acute Comment: Discussed with renal for hemodialysis (3) Congestive heart failure Status: Acute Comment: No acute over chronic systolic left ventricular heart failure in addition to right ventricular heart failure would need MARIA VICTORIA inhibitor and beta jose r once stable (4) NSTEMI (non-ST elevated myocardial infarction) Status: Acute Comment: No acute EKG changes however with inferior hypokinesia and severely depressed left ventricular contractility. Acute versus old myocardial infarction. With troponin of 100 myocarditis should be considered (5) Pulmonary HTN Status: Chronic Comment: Severe pulmonary hypertension with right ventricular failure, post DVT , pulmonary infarct. Pulmonary pressure 62 mmHg on echo now. 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
[2017-08-30 14:21] LABS: HEPATITIS B SURFACE AG Negative (NEGATIVE)
[2017-08-30 14:26] LABS: HEPATITIS B CORE AB NEGATIVE (NEGATIVE)
[2017-08-30 14:38] LABS: HEPATITIS C ANTIBODY NEGATIVE (NEGATIVE)
[2017-08-30] MEDS ORDERED: Epoetin Alfa 4000 UNIT/ML Inj IV SCH (15:00)
--- NOTE | 2017-08-30 15:33 | CP.PCM.CON ---
History of Present Illness - History of Present Illness History of Present Illness: Initial Nephrology Consultation: Assessment: critical CKD stage 5 (N18.5) with hyperkalemia, acidosis ? uremia pulm edema, CHF, NSTEMI, pleural effusions, pneumonia AMS, hyperglycemia Diabetic chronic Kidney Disease (E11.22) Hypertensive Chronic Kidney Disease (I12.9) Anemia (D64.9), Hyperphosphatemia (E83.39), Secondary Hyperparathyroidism (E21.1 ), HTN (I12.9), vit D insuff, hx of colon CA, TIAs Plan renal replacement therapy initiation indicated at this time. d/w cardiology and pt is not planned for invasive cardiac intervention at this time hence will plan for HD today and tomorrow as ordered maintain hemodynamic stable. Patient not on ACEI/ARB due to hyperkalemia started iron supplements, MVI, epogen with HD, phos binders and Vit D Monitor Input/Output, daily weights and renal function with basic metabolic panel Check for 25-OH vitamin D, iPTH, phosphorus level Check Hep B and Hep C serology, iron studies Dose meds/antibiotics for reduced GFR. Avoid fleets enema/magnesium based laxatives. Avoid nephrotoxins/NSAIDs Glycemic control Further work up/management as per primary team Thanks for allowing me to participate in care of your patient. Will follow patient with you. Please call if any Qs. d/w team and family Dr Edson Norton Office: [phone] Chief Complaint; unable to obtain reason for consult: CKD management source of Info: EMR HPI: Pt is a 76 F with hx of diabetes Mellitus ( years), hypertension (years), CHF, TIA, Colon CA, CKD stage 4/5, has matured AVG in left arm presented with complaints of AMS and hyperglycemia as brought by family. now has elevated trop 100, hyperkalemia, AMS and elevated sugar, pulm edema. renal consult for CKD management. pt with AMS unable to provide any hx. she had received medical management for hyperkalemia. ROS: unable to obtain Physical Examination: General Appearance: ill appearing, lethargic, mostly unresponsive Vitals reviewed and noted as below Head; Atraumatic, normocephalic ENT: unable EYES: pt resisting eye opening. Neck; supple no lymphadenopathy, no thyromegaly or bruit Lungs: Normal respiratory rate/effort. Breath sounds bilateral decreased at bases with crackles Heart: Normal rate. s1s2 normal. No rub or gallop. Extremities: no edema. No varicose veins. chronic hyperpigmented changes in legs Neurological: Patient is lethargic, mostly unresponsive, non communicative Skin: Warm and dry. Normal turgor. No rash. Palpitation: Normal elasticity for age Abdomen: Abdomen is soft. Bowel sounds +. There is no abdominal tenderness, no guarding/rigidity no organomegaly Psych: unable MSK: no joint tenderness or swelling. Digits and nails normal, no deformity : kidney or bladder not palpable Access: Left AVG with bruit Labs/imaging reviewed. Past medical history, past surgical history, family history, social history, allergy reviewed and noted as below Family hx: no hx of CKD. Rest non-contributory Past Patient History - Infectious Disease Hx of Infectious Diseases: None - Tetanus Immunizations Tetanus Immunization: Unknown - Past Medical History & Family History Past Medical History?: Yes - Past Social History Smoking Status: Former Smoker - CARDIAC Hx Hypercholesterolemia: Yes Hx Hypertension: Yes Hx Peripheral Edema: Yes - PULMONARY Hx Asthma: Yes (Dx 15 yrs ago,does not use home o2 anymore) Hx Pneumonia: Yes (x2) - NEUROLOGICAL Hx Transient Ischemic Attacks (TIA): Yes (x3 about 20 yrs ago, 10 yrs ago, 7 yrs ago) - HEENT Hx HEENT Problems: Yes Hx Cataracts: Yes - RENAL Hx Chronic Kidney Disease: Yes - ENDOCRINE/METABOLIC Hx Diabetes Mellitus Type 1: Yes - HEMATOLOGICAL/ONCOLOGICAL Hx Anemia: Yes - INTEGUMENTARY Hx Dermatological Problems: No - MUSCULOSKELETAL/RHEUMATOLOGICAL Hx Arthritis: Yes Hx Fractures: Yes (Right ankle) - GASTROINTESTINAL Hx Gastrointestinal Disorders: Yes Other/Comment: Hx colon cancer - GENITOURINARY/GYNECOLOGICAL Hx Genitourinary Disorders: Yes Other/Comment: Colon CA - PSYCHIATRIC Hx Depression: No Hx Substance Use: No - SURGICAL HISTORY Hx Cataract Extraction: Yes (LEFT) - ANESTHESIA Hx Anesthesia: Yes Hx Anesthesia Reactions: No Hx Malignant Hyperthermia: No Meds Allergies/Adverse Reactions: Allergies Allergy/AdvReac Type Severity Reaction Status Date / Time Penicillins Allergy Intermediate RASH Verified 08/29/17 20:11 - Medications Medications: Current Medications Aspirin (Aspirin Chewable) 81 mg PO DAILY [facility] Last Admin: 08/30/17 09:49 Dose: 81 mg Calcium Acetate (Phoslo) 667 mg PO TID [facility] Last Admin: 08/30/17 13:08 Dose: Not Given Epoetin Alan (Procrit) 4,000 unit IV MWF [facility] Ergocalciferol (Drisdol 50,000 Intl Units Cap) 1 cap PO Q7D [facility] Ferrous Gluconate (Fergon) 324 mg PO TID [facility] Heparin Sodium/Sodium Chloride (Heparin 97206 Units/250ml 1/2 Normal Saline) 25 ,000 units in 250 mls @ 7.076 mls/hr IV .Q24H PRN; Protocol; 12 UNITS/KG/HR PRN Reason: PROTOCOL Last Titration: 08/30/17 12:55 Dose: 16 units/kg/hr, 9.435 mls/hr Moxifloxacin HCl (Avelox Iv 400mg/250ml Ns) 400 mg in 250 mls @ 167 mls/hr IVPB Q24H [facility] Insulin Aspart (Novolog) 0 unit SC Q6 [facility] PRN Reason: Protocol Insulin Glargine (Lantus) 15 unit SC [facility] Metoprolol Tartrate (Lopressor) 25 mg PO BID [facility] Last Admin: 08/30/17 09:49 Dose: 25 mg Nitroglycerin (Nitrostat Sl Tab) 0.4 mg SL Q5M PRN PRN Reason: Other Rosuvastatin Calcium (Crestor) 5 mg PO [facility] Last Admin: 08/30/17 01:29 Dose: 5 mg Vitamin B Complex/Vit C/Folic Acid (Nephro-Kamron) 1 tab PO 0800 [facility] Results - Vital Signs Recent Vital Signs: Last Vital Signs Temp 98.4 F 08/30/17 12:00 Pulse 76 08/30/17 11:00 Resp 19 08/30/17 11:00 BP 117/71 08/30/17 12:26 Pulse Ox 100 08/30/17 11:00 - Labs Result Diagrams: 08/30/17 03:49 08/30/17 03:49 Labs: Laboratory Results - last 24 hr 08/29/17 08/29/17 08/29/17 22:18 22:51 22:51 WBC 16.3 H D RBC 3.72 L Hgb 10.3 L Hct 32.5 L MCV 87.4 MCH 27.7 MCHC 31.6 L RDW 16.7 H Plt Count 156 MPV 9.4 Neut % (Auto) 90.5 H Lymph % (Auto) 3.8 L Dillon % (Auto) 4.8 Eos % (Auto) 0.0 Baso % (Auto) 0.9 Neut # (Auto) 14.8 H Lymph # (Auto) 0.6 L Dillon # (Auto) 0.8 Eos # (Auto) 0.0 Baso # (Auto) 0.1 Neutrophils % (Manual) 92 H Lymphocytes % (Manual) 5 L Monocytes % (Manual) 3 Platelet Estimate Normal Hypochromasia (manual) Poikilocytosis (manual Anisocytosis (manual) Ovalocytes PT INR APTT D-Dimer, Quantitative 4388 H pO2 VBG pH VBG pCO2 VBG HCO3 VBG Total CO2 VBG O2 Sat (Calc) VBG Base Excess VBG Potassium Glucose Lactate Crit Value Called To Crit Value Called By Crit Value Read Back Blood Gas Notified Time Sodium Potassium Chloride Carbon Dioxide Anion Gap BUN Creatinine Est GFR ( Amer) Est GFR (Non-Af Amer) POC Glucose (mg/dL) 467 H* Random Glucose Lactic Acid Calcium Phosphorus Magnesium Iron TIBC % Saturation Ferritin Total Bilirubin AST ALT Alkaline Phosphatase Troponin I NT-Pro-B Natriuret Pep Total Protein Albumin Globulin Albumin/Globulin Ratio Triglycerides Cholesterol LDL Cholesterol Direct HDL Cholesterol 25-OH Vitamin D Total Procalcitonin Venous Blood Potassium Serum Ketones Hep Bs Antigen Hep Bs Antibody Hep B Core IgM Ab Hepatitis C Antibody 08/29/17 08/29/17 08/30/17 22:51 23:25 01:18 WBC RBC Hgb Hct MCV MCH MCHC RDW Plt Count MPV Neut % (Auto) Lymph % (Auto) Dillon % (Auto) Eos % (Auto) Baso % (Auto) Neut # (Auto) Lymph # (Auto) Dillon # (Auto) Eos # (Auto) Baso # (Auto) Neutrophils % (Manual) Lymphocytes % (Manual) Monocytes % (Manual) Platelet Estimate Hypochromasia (manual) Poikilocytosis (manual Anisocytosis (manual) Ovalocytes PT INR APTT D-Dimer, Quantitative pO2 16 L VBG pH 7.16 L* VBG pCO2 40 VBG HCO3 11.9 VBG Total CO2 15.5 L VBG O2 Sat (Calc) 35.2 L VBG Base Excess -13.8 L VBG Potassium 5.8 H Glucose 562 H* D Lactate 2.5 H Crit Value Called To Willow dobson/rn Crit Value Called By Shoaib anderson/rt Crit Value Read Back Y Blood Gas Notified Time 2335 Sodium 137 139.0 Potassium 6.5 H* D Chloride 105 103.0 Carbon Dioxide 11 L* D Anion Gap 28 H BUN 74 H Creatinine 4.7 H Est GFR ( Amer) 11 Est GFR (Non-Af Amer) 9 POC Glucose (mg/dL) 362 H Random Glucose 559 H* D Lactic Acid Calcium 8.0 L Phosphorus Magnesium Iron TIBC % Saturation Ferritin Total Bilirubin 1.6 H AST 193 H ALT 54 H D Alkaline Phosphatase 96 Troponin I 103.0000 H* NT-Pro-B Natriuret Pep 45552 H Total Protein 7.3 Albumin 3.6 Globulin 3.7 Albumin/Globulin Ratio 1.0 Triglycerides Cholesterol LDL Cholesterol Direct HDL Cholesterol 25-OH Vitamin D Total Procalcitonin Venous Blood Potassium 5.8 H Serum Ketones Negative Hep Bs Antigen Hep Bs Antibody Hep B Core IgM Ab Hepatitis C Antibody 08/30/17 08/30/17 08/30/17 02:01 02:17 03:49 WBC 15.7 H RBC 3.48 L Hgb 9.6 L Hct 29.6 L MCV 85.2 D MCH 27.7 MCHC 32.5 L RDW 16.2 H Plt Count 143 MPV 8.9 Neut % (Auto) 90.5 H Lymph % (Auto) 3.4 L Dillon % (Auto) 5.6 Eos % (Auto) 0.0 Baso % (Auto) 0.5 Neut # (Auto) 14.2 H Lymph # (Auto) 0.5 L Dillon # (Auto) 0.9 H Eos # (Auto) 0.0 Baso # (Auto) 0.1 Neutrophils % (Manual) 93 H Lymphocytes % (Manual) 4 L Monocytes % (Manual) 3 Platelet Estimate Normal Hypochromasia (manual) Slight Poikilocytosis (manual Slight Anisocytosis (manual) Slight Ovalocytes Slight PT 14.6 H INR 1.3 APTT 29 D-Dimer, Quantitative pO2 VBG pH VBG pCO2 VBG HCO3 VBG Total CO2 VBG O2 Sat (Calc) VBG Base Excess VBG Potassium Glucose Lactate Crit Value Called To Crit Value Called By Crit Value Read Back Blood Gas Notified Time Sodium Potassium Chloride Carbon Dioxide Anion Gap BUN Creatinine Est GFR ( Amer) Est GFR (Non-Af Amer) POC Glucose (mg/dL) 374 H Random Glucose Lactic Acid Calcium Phosphorus Magnesium Iron TIBC % Saturation Ferritin Total Bilirubin AST ALT Alkaline Phosphatase Troponin I NT-Pro-B Natriuret Pep Total Protein Albumin Globulin Albumin/Globulin Ratio Triglycerides Cholesterol LDL Cholesterol Direct HDL Cholesterol 25-OH Vitamin D Total Procalcitonin Venous Blood Potassium Serum Ketones Hep Bs Antigen Hep Bs Antibody Hep B Core IgM Ab Hepatitis C Antibody 08/30/17 08/30/17 08/30/17 03:49 03:49 05:00 WBC RBC Hgb Hct MCV MCH MCHC RDW Plt Count MPV Neut % (Auto) Lymph % (Auto) Dillon % (Auto) Eos % (Auto) Baso % (Auto) Neut # (Auto) Lymph # (Auto) Dillon # (Auto) Eos # (Auto) Baso # (Auto) Neutrophils % (Manual) Lymphocytes % (Manual) Monocytes % (Manual) Platelet Estimate Hypochromasia (manual) Poikilocytosis (manual Anisocytosis (manual) Ovalocytes PT INR APTT D-Dimer, Quantitative pO2 VBG pH VBG pCO2 VBG HCO3 VBG Total CO2 VBG O2 Sat (Calc) VBG Base Excess VBG Potassium Glucose Lactate Crit Value Called To Crit Value Called By Crit Value Read Back Blood Gas Notified Time Sodium 139 Potassium 5.9 H Chloride 106 Carbon Dioxide 16 L Anion Gap 24 H BUN 79 H Creatinine 5.2 H Est GFR ( Amer) 10 Est GFR (Non-Af Amer) 8 POC Glucose (mg/dL) Random Glucose 415 H* D Lactic Acid 3.4 H Calcium 8.6 Phosphorus 5.8 H Magnesium 2.1 Iron TIBC % Saturation Ferritin Total Bilirubin AST ALT Alkaline Phosphatase Troponin I 96.9000 H* NT-Pro-B Natriuret Pep Total Protein Albumin Globulin Albumin/Globulin Ratio Triglycerides 170 H D Cholesterol 228 H LDL Cholesterol Direct 68 HDL Cholesterol 61 25-OH Vitamin D Total Procalcitonin Venous Blood Potassium Serum Ketones Hep Bs Antigen Hep Bs Antibody Hep B Core IgM Ab Hepatitis C Antibody 08/30/17 08/30/17 08/30/17 07:47 08:34 11:15 WBC RBC Hgb Hct MCV MCH MCHC RDW Plt Count MPV Neut % (Auto) Lymph % (Auto) Dillon % (Auto) Eos % (Auto) Baso % (Auto) Neut # (Auto) Lymph # (Auto) Dillon # (Auto) Eos # (Auto) Baso # (Auto) Neutrophils % (Manual) Lymphocytes % (Manual) Monocytes % (Manual) Platelet Estimate Hypochromasia (manual) Poikilocytosis (manual Anisocytosis (manual) Ovalocytes PT INR APTT D-Dimer, Quantitative pO2 VBG pH VBG pCO2 VBG HCO3 VBG Total CO2 VBG O2 Sat (Calc) VBG Base Excess VBG Potassium Glucose Lactate Crit Value Called To Crit Value Called By Crit Value Read Back Blood Gas Notified Time Sodium Potassium Chloride Carbon Dioxide Anion Gap BUN Creatinine Est GFR ( Amer) Est GFR (Non-Af Amer) POC Glucose (mg/dL) 349 H 345 H Random Glucose Lactic Acid Calcium Phosphorus Magnesium Iron TIBC % Saturation Ferritin Total Bilirubin AST ALT Alkaline Phosphatase Troponin I NT-Pro-B Natriuret Pep Total Protein Albumin Globulin Albumin/Globulin Ratio Triglycerides Cholesterol LDL Cholesterol Direct HDL Cholesterol 25-OH Vitamin D Total Procalcitonin 54.73 H Venous Blood Potassium Serum Ketones Hep Bs Antigen Hep Bs Antibody Hep B Core IgM Ab Hepatitis C Antibody 08/30/17 08/30/17 08/30/17 12:19 12:19 12:19 WBC RBC Hgb Hct MCV MCH MCHC RDW Plt Count MPV Neut % (Auto) Lymph % (Auto) Dillon % (Auto) Eos % (Auto) Baso % (Auto) Neut # (Auto) Lymph # (Auto) Dillon # (Auto) Eos # (Auto) Baso # (Auto) Neutrophils % (Manual) Lymphocytes % (Manual) Monocytes % (Manual) Platelet Estimate Hypochromasia (manual) Poikilocytosis (manual Anisocytosis (manual) Ovalocytes PT INR APTT 31 D-Dimer, Quantitative pO2 VBG pH VBG pCO2 VBG HCO3 VBG Total CO2 VBG O2 Sat (Calc) VBG Base Excess VBG Potassium Glucose Lactate Crit Value Called To Crit Value Called By Crit Value Read Back Blood Gas Notified Time Sodium Potassium Chloride Carbon Dioxide Anion Gap BUN Creatinine Est GFR ( Amer) Est GFR (Non-Af Amer) POC Glucose (mg/dL) Random Glucose Lactic Acid Calcium Phosphorus Magnesium Iron 18 L TIBC 196 L % Saturation 9 L Ferritin 195.0 Total Bilirubin AST ALT Alkaline Phosphatase Troponin I NT-Pro-B Natriuret Pep Total Protein Albumin Globulin Albumin/Globulin Ratio Triglycerides Cholesterol LDL Cholesterol Direct HDL Cholesterol 25-OH Vitamin D Total 27.1 L Procalcitonin Venous Blood Potassium Serum Ketones Hep Bs Antigen Negative Hep Bs Antibody Hep B Core IgM Ab Negative Hepatitis C Antibody Negative 08/30/17 12:19 WBC RBC Hgb Hct MCV MCH MCHC RDW Plt Count MPV Neut % (Auto) Lymph % (Auto) Dillon % (Auto) Eos % (Auto) Baso % (Auto) Neut # (Auto) Lymph # (Auto) Dillon # (Auto) Eos # (Auto) Baso # (Auto) Neutrophils % (Manual) Lymphocytes % (Manual) Monocytes % (Manual) Platelet Estimate Hypochromasia (manual) Poikilocytosis (manual Anisocytosis (manual) Ovalocytes PT INR APTT D-Dimer, Quantitative pO2 VBG pH VBG pCO2 VBG HCO3 VBG Total CO2 VBG O2 Sat (Calc) VBG Base Excess VBG Potassium Glucose Lactate Crit Value Called To Crit Value Called By Crit Value Read Back Blood Gas Notified Time Sodium Potassium Chloride Carbon Dioxide Anion Gap BUN Creatinine Est GFR ( Amer) Est GFR (Non-Af Amer) POC Glucose (mg/dL) Random Glucose Lactic Acid Calcium Phosphorus Magnesium Iron TIBC % Saturation Ferritin Total Bilirubin AST ALT Alkaline Phosphatase Troponin I NT-Pro-B Natriuret Pep Total Protein Albumin Globulin Albumin/Globulin Ratio Triglycerides Cholesterol LDL Cholesterol Direct HDL Cholesterol 25-OH Vitamin D Total Procalcitonin Venous Blood Potassium Serum Ketones Hep Bs Antigen Hep Bs Antibody Negative Hep B Core IgM Ab Hepatitis C Antibody
--- NOTE | 2017-08-30 16:32 | CT ---
PROCEDURE: CT HEAD WITHOUT CONTRAST. HISTORY: Altered mental status COMPARISON: 02/25/2017 TECHNIQUE: Axial computed tomography images were obtained through the head/brain without intravenous contrast. Radiation dose: Total exam DLP = 865.26 mGy-cm. This CT exam was performed using one or more of the following dose reduction techniques: Automated exposure control, adjustment of the mA and/or kV according to patient size, and/or use of iterative reconstruction technique. FINDINGS: HEMORRHAGE: No intracranial hemorrhage. BRAIN: No mass effect or edema. 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 Small old left temporal infarct. Old small right cerebellar hemispheric lacunar. Right Flolan neck lacune, likely old though possibly subacute. This was not evident on prior CT examination of 02/25/2017. No evidence of acute infarct moderate to severe patchy and confluent periventricular and deep white matter lucency consistent with microvascular ischemic change. VENTRICLES: Unremarkable. No hydrocephalus. CALVARIUM: Unremarkable. PARANASAL SINUSES: Unremarkable as visualized. No significant inflammatory changes. MASTOID AIR CELLS: Unremarkable as visualized. No inflammatory changes. OTHER FINDINGS: None. IMPRESSION: Multiple old infarcts as described. Subacute to old right colonic lacunar infarct, most likely old though not evident on prior examination of 02/25/2017. No intracranial mass or hemorrhage. Moderate to severe chronic white matter ischemic change.
[2017-08-30] MEDS: (Novolog) Insulin Aspart, Recombinant 100 u/ml 10 ml vial SC SCH (18:14)
[2017-08-30] MEDS ORDERED: Lidocaine 2% Inj (20ml) IV STA (20:05)
[2017-08-30] MEDS ORDERED: Sodium Bicarbonate (8.4%) 50 Meq Syringe ONE (20:05)
--- NOTE | 2017-08-30 20:27 | PCM.ANES ---
Anesthesia Emergent Intubation - Diagnosis Working Diagnosis:: Respiratory Failure - Intubation Attempts Previous Number of Intubation Attempts:: 0 - Pre-Intubation Vital Signs Blood Pressure: 74/34 Heart Rate: 134 Oxygen Delivery Method: Mask Level Of Consciousness: Comatose/Unresponsive - Method of Intubation Intubation Method: Oral ETT ETT Size: 7.5 Easy: Yes Atramatic: Yes - Intubation Devices Jono Blade Size Used: 3 - Placement Confirmation Breath Sounds Present & Equal Bilaterally: Yes Gurgling Sounds Not Audible at Epigastrum: Yes Positive EtCO2: Yes Recommendations: Ventilator
[2017-08-30 20:37] LABS: ABG ALLEN TEST POS; ARTERIAL BLOOD GAS HCO3 10.7 mmol/L (21-28); ARTERIAL BLOOD GAS HEMOGLOBIN 11.4 g/dL (11.7-17.4); ARTERIAL BLOOD GAS O2 SAT 99.7 % (95-98); ARTERIAL BLOOD GAS PCO2 26 mm/Hg (35-45); ARTERIAL BLOOD GAS PH 7.15 (7.35-7.45); ARTERIAL BLOOD GAS PO2 202 mm/Hg (80-100); ARTERIAL BLOOD GAS TCO2 9.9 mmol/L (22-28)
[2017-08-30 20:45] LABS: MEAN CORPUSCULAR HGB CONC 31.5 g/dL (33.0-37.0)
--- NOTE | 2017-08-30 20:45 | CP.CCUPN ---
CCU Subjective - Physician Review Events Since Last Encounter (Free Text): 08/30/17 20:29 patient was hypotensive,levophed initiated,patient became asystolic,CPR intiated ,intubated received 2 epi and 1 bicarb iv,regained pulse and BP later developed sustained V tach ,shocked,became asystolic,CPR initiated 1 epi and 2 IV bicarb given,patient regained pulse started IV amiodarone and bicarb drips CCU Objective - Vital Signs / Intake & Output Vital Signs (Last 4 hours): Vital Signs Pulse Resp BP 08/30/17 20:27 134 H 74/34 L 08/30/17 18:14 117/72 08/30/17 18:00 90 19 08/30/17 17:49 89 20 117/72 08/30/17 17:00 88 19 08/30/17 16:49 89 19 117/67 Intake and Output (Last 8hrs): Intake & Output 08/30/17 08/30/17 08/30/17 06:59 14:59 22:59 Intake Total 207.1 105.8 84.5 Output Total 0 0 0 Balance 207.1 105.8 84.5 Weight 130 lb 4.8 oz Intake: IV 56 56 Intake, IV Amount 207.1 49.8 28.5 Right Forearm 7.1 49.8 28.5 Right Hand 100 0 0 Right Internal Jugular 100 Oral 0 0 0 Output: Urine 0 0 0 Urethral (Cleaning) 0 0 0 Stool 0 0 0 Other: Voiding Method Indwelling Catheter - Physical Exam Narrative Physical Exam (Free Text): 08/30/17 21:03 orally intubated Head: Positive for: Atraumatic, Normocephalic. Negative for: Tenderness, Contusion, Swelling Pupils: Positive for: PERRL. Negative for: Sluggish, Non-Reactive Conjunctiva: Positive for: Normal Mouth: Positive for: Dry Nose (External): Positive for: Atraumatic Neck: Positive for: Trachea Midline. Negative for: JVD Respiratory/Chest: Positive for: Good Air Exchange, Accessory Muscle Use, Decreased Breath Sounds (on bilateral bases). Negative for: Wheezes Cardiovascular: Positive for: Tachycardic Abdomen: Positive for: Distention, Normal Bowel Sounds. Negative for: Peritoneal Signs Upper Extremity: Negative for: Cyanosis, Edema Lower Extremity: Negative for: Edema - Medications Active Medications: Active Medications Generic Name Dose Route Start Last Admin Trade Name Freq PRN Reason Stop Dose Admin Aspirin 81 mg 08/30/17 10:00 08/30/17 09:49 Aspirin Chewable PO 81 mg DAILY [facility] Administration Calcium Acetate 667 mg 08/30/17 14:00 08/30/17 18:00 Phoslo PO Not Given TID [facility] Epoetin Alan 4,000 unit 08/30/17 15:00 Procrit IV MWF [facility] Ergocalciferol 1 cap 08/31/17 14:45 Drisdol 50,000 Intl Units Cap PO Q7D [facility] Ferrous Gluconate 324 mg 08/31/17 10:00 Fergon PO TID [facility] Heparin Sodium/Sodium Chloride 25,000 units in 250 mls @ 7.076 mls/hr 00:56 08/30/17 19:00 Heparin 38704 Units/250ml 1/2 Normal Saline IV 20 units/kg/hr .Q24H PRN 11.793 mls/hr PROTOCOL Titration Protocol 12 UNITS/KG/HR Moxifloxacin HCl 400 mg in 250 mls @ 167 mls/hr 08/30/17 23:00 Avelox Iv 400mg/250ml Ns IVPB Q24H [facility] Norepinephrine Bitartrate 8 mg 258 mls @ 7.74 mls/hr 08/30/17 19:56 / Sodium Chloride IV .Q24H PRN TITRATE PER MD ORDER Protocol 4 MCG/MIN Insulin Aspart 0 unit 08/30/17 18:00 08/30/17 18:14 Novolog SC 5 unit Q6 CAROLYNE Administration Protocol Insulin Glargine 15 unit 08/30/17 22:00 Lantus SC HS [facility] Metoprolol Tartrate 25 mg 08/30/17 10:00 08/30/17 18:14 Lopressor PO 25 mg BID CAROLYNE Administration Nitroglycerin 0.4 mg 08/30/17 00:49 Nitrostat Sl Tab SL Q5M PRN Other Pantoprazole Sodium 40 mg 08/31/17 10:00 Protonix Inj IVP DAILY [facility] Rosuvastatin Calcium 5 mg 08/30/17 01:15 08/30/17 01:29 Crestor PO 5 mg HS CAROLYNE Administration Vitamin B Complex/Vit C/Folic Acid 1 tab 08/31/17 08:00 Nephro-Kamron PO 0800 [facility] - Patient Studies Lab Studies: Lab Studies 08/30/17 08/30/17 08/30/17 Range/Units 18:25 17:41 16:13 WBC (4.8-10.8) K/uL RBC (3.80-5.20) Mil/uL Hgb (11.0-16.0) g/dL Hct (34.0-47.0) % MCV (81.0-99.0) fL MCH (27.0-31.0) pg MCHC (33.0-37.0) g/dL RDW (11.5-14.5) % Plt Count (130-400) K/uL MPV (7.2-11.7) fL Neut % (Auto) (50.0-75.0) % Lymph % (Auto) (20.0-40.0) % Page % (Auto) (0.0-10.0) % Eos % (Auto) (0.0-4.0) % Baso % (Auto) (0.0-2.0) % Neut # (Auto) (1.8-7.0) K/uL Lymph # (Auto) (1.0-4.3) K/uL Page # (Auto) (0.0-0.8) K/uL Eos # (Auto) (0.0-0.7) K/uL Baso # (Auto) (0.0-0.2) K/uL Neutrophils % (Manual) (50-75) % Lymphocytes % (Manual) (20-40) % Monocytes % (Manual) (0-10) % Platelet Estimate (NORMAL) Hypochromasia (manual) Poikilocytosis (manual Anisocytosis (manual) Ovalocytes PT (9.7-12.2) SECONDS INR APTT 40 H D (21-34) SECONDS D-Dimer, Quantitative (0-243) ng/mlDDU pO2 (30-55) mm/Hg VBG pH (7.32-7.43) VBG pCO2 (40-60) mmHg VBG HCO3 mmol/L VBG Total CO2 (22-28) mmol/L VBG O2 Sat (Calc) (40-65) % VBG Base Excess (0.0-2.0) mmol/L VBG Potassium (3.6-5.2) mmol/L Glucose (65-105) mg/dl Lactate (0.7-2.1) mmol/L Crit Value Called To Crit Value Called By Crit Value Read Back Blood Gas Notified Time Sodium (132-148) mmol/L Potassium (3.6-5.2) mmol/L Chloride (98-107) mmol/L Carbon Dioxide (22-30) mmol/L Anion Gap (10-20) BUN (7-17) mg/dL Creatinine (0.7-1.2) mg/dL Est GFR ( Amer) Est GFR (Non-Af Amer) POC Glucose (mg/dL) 384 H (65-110) mg/dL Random Glucose (65-105) mg/dL Lactic Acid (0.7-2.1) mmol/L Calcium (8.6-10.4) mg/dl Phosphorus (2.5-4.5) mg/dL Magnesium (1.6-2.3) mg/dL Iron (37-170) ug/dL TIBC (250-450) ug/dL % Saturation (20-55) Ferritin ng/mL Total Bilirubin (0.2-1.3) mg/dL AST (14-36) U/L ALT (9-52) U/L Alkaline Phosphatase (38-126) U/L Troponin I (0.00-0.120) ng/mL NT-Pro-B Natriuret Pep (0-900) pg/mL Total Protein (6.3-8.3) g/dL Albumin (3.5-5.0) g/dL Globulin (2.2-3.9) gm/dL Albumin/Globulin Ratio (1.0-2.1) Triglycerides (0-149) mg/dL Cholesterol (0-199) mg/dL LDL Cholesterol Direct (0-129) mg/dL HDL Cholesterol (30-70) mg/dL 25-OH Vitamin D Total (30.0-100.0) NG/ML Procalcitonin (0.19-0.49) NG/ML Venous Blood Potassium (3.6-5.2) mmol/L Vancomycin Trough < 5.0 L (5.0-10.0) ug/mL Serum Ketones (NEGATIVE) Hep Bs Antigen (NEGATIVE) Hep Bs Antibody (NEGATIVE) Hep B Core IgM Ab (NEGATIVE) Hepatitis C Antibody (NEGATIVE) 08/30/17 08/30/17 08/30/17 Range/Units 12:19 12:19 12:19 WBC (4.8-10.8) K/uL RBC (3.80-5.20) Mil/uL Hgb (11.0-16.0) g/dL Hct (34.0-47.0) % MCV (81.0-99.0) fL MCH (27.0-31.0) pg MCHC (33.0-37.0) g/dL RDW (11.5-14.5) % Plt Count (130-400) K/uL MPV (7.2-11.7) fL Neut % (Auto) (50.0-75.0) % Lymph % (Auto) (20.0-40.0) % Page % (Auto) (0.0-10.0) % Eos % (Auto) (0.0-4.0) % Baso % (Auto) (0.0-2.0) % Neut # (Auto) (1.8-7.0) K/uL Lymph # (Auto) (1.0-4.3) K/uL Page # (Auto) (0.0-0.8) K/uL Eos # (Auto) (0.0-0.7) K/uL Baso # (Auto) (0.0-0.2) K/uL Neutrophils % (Manual) (50-75) % Lymphocytes % (Manual) (20-40) % Monocytes % (Manual) (0-10) % Platelet Estimate (NORMAL) Hypochromasia (manual) Poikilocytosis (manual Anisocytosis (manual) Ovalocytes PT (9.7-12.2) SECONDS INR APTT (21-34) SECONDS D-Dimer, Quantitative (0-243) ng/mlDDU pO2 (30-55) mm/Hg VBG pH (7.32-7.43) VBG pCO2 (40-60) mmHg VBG HCO3 mmol/L VBG Total CO2 (22-28) mmol/L VBG O2 Sat (Calc) (40-65) % VBG Base Excess (0.0-2.0) mmol/L VBG Potassium (3.6-5.2) mmol/L Glucose (65-105) mg/dl Lactate (0.7-2.1) mmol/L Crit Value Called To Crit Value Called By Crit Value Read Back Blood Gas Notified Time Sodium (132-148) mmol/L Potassium (3.6-5.2) mmol/L Chloride (98-107) mmol/L Carbon Dioxide (22-30) mmol/L Anion Gap (10-20) BUN (7-17) mg/dL Creatinine (0.7-1.2) mg/dL Est GFR ( Amer) Est GFR (Non-Af Amer) POC Glucose (mg/dL) (65-110) mg/dL Random Glucose (65-105) mg/dL Lactic Acid (0.7-2.1) mmol/L Calcium (8.6-10.4) mg/dl Phosphorus (2.5-4.5) mg/dL Magnesium (1.6-2.3) mg/dL Iron 18 L (37-170) ug/dL TIBC 196 L (250-450) ug/dL % Saturation 9 L (20-55) Ferritin 195.0 ng/mL Total Bilirubin (0.2-1.3) mg/dL AST (14-36) U/L ALT (9-52) U/L Alkaline Phosphatase (38-126) U/L Troponin I (0.00-0.120) ng/mL NT-Pro-B Natriuret Pep (0-900) pg/mL Total Protein (6.3-8.3) g/dL Albumin (3.5-5.0) g/dL Globulin (2.2-3.9) gm/dL Albumin/Globulin Ratio (1.0-2.1) Triglycerides (0-149) mg/dL Cholesterol (0-199) mg/dL LDL Cholesterol Direct (0-129) mg/dL HDL Cholesterol (30-70) mg/dL 25-OH Vitamin D Total 27.1 L (30.0-100.0) NG/ML Procalcitonin (0.19-0.49) NG/ML Venous Blood Potassium (3.6-5.2) mmol/L Vancomycin Trough (5.0-10.0) ug/mL Serum Ketones (NEGATIVE) Hep Bs Antigen Negative (NEGATIVE) Hep Bs Antibody Negative (NEGATIVE) Hep B Core IgM Ab Negative (NEGATIVE) Hepatitis C Antibody Negative (NEGATIVE) 08/30/17 08/30/17 08/30/17 Range/Units 12:19 11:15 08:34 WBC (4.8-10.8) K/uL RBC (3.80-5.20) Mil/uL Hgb (11.0-16.0) g/dL Hct (34.0-47.0) % MCV (81.0-99.0) fL MCH (27.0-31.0) pg MCHC (33.0-37.0) g/dL RDW (11.5-14.5) % Plt Count (130-400) K/uL MPV (7.2-11.7) fL Neut % (Auto) (50.0-75.0) % Lymph % (Auto) (20.0-40.0) % Page % (Auto) (0.0-10.0) % Eos % (Auto) (0.0-4.0) % Baso % (Auto) (0.0-2.0) % Neut # (Auto) (1.8-7.0) K/uL Lymph # (Auto) (1.0-4.3) K/uL Page # (Auto) (0.0-0.8) K/uL Eos # (Auto) (0.0-0.7) K/uL Baso # (Auto) (0.0-0.2) K/uL Neutrophils % (Manual) (50-75) % Lymphocytes % (Manual) (20-40) % Monocytes % (Manual) (0-10) % Platelet Estimate (NORMAL) Hypochromasia (manual) Poikilocytosis (manual Anisocytosis (manual) Ovalocytes PT (9.7-12.2) SECONDS INR APTT 31 (21-34) SECONDS D-Dimer, Quantitative (0-243) ng/mlDDU pO2 (30-55) mm/Hg VBG pH (7.32-7.43) VBG pCO2 (40-60) mmHg VBG HCO3 mmol/L VBG Total CO2 (22-28) mmol/L VBG O2 Sat (Calc) (40-65) % VBG Base Excess (0.0-2.0) mmol/L VBG Potassium (3.6-5.2) mmol/L Glucose (65-105) mg/dl Lactate (0.7-2.1) mmol/L Crit Value Called To Crit Value Called By Crit Value Read Back Blood Gas Notified Time Sodium (132-148) mmol/L Potassium (3.6-5.2) mmol/L Chloride (98-107) mmol/L Carbon Dioxide (22-30) mmol/L Anion Gap (10-20) BUN (7-17) mg/dL Creatinine (0.7-1.2) mg/dL Est GFR ( Amer) Est GFR (Non-Af Amer) POC Glucose (mg/dL) 345 H (65-110) mg/dL Random Glucose (65-105) mg/dL Lactic Acid (0.7-2.1) mmol/L Calcium (8.6-10.4) mg/dl Phosphorus (2.5-4.5) mg/dL Magnesium (1.6-2.3) mg/dL Iron (37-170) ug/dL TIBC (250-450) ug/dL % Saturation (20-55) Ferritin ng/mL Total Bilirubin (0.2-1.3) mg/dL AST (14-36) U/L ALT (9-52) U/L Alkaline Phosphatase (38-126) U/L Troponin I (0.00-0.120) ng/mL NT-Pro-B Natriuret Pep (0-900) pg/mL Total Protein (6.3-8.3) g/dL Albumin (3.5-5.0) g/dL Globulin (2.2-3.9) gm/dL Albumin/Globulin Ratio (1.0-2.1) Triglycerides (0-149) mg/dL Cholesterol (0-199) mg/dL LDL Cholesterol Direct (0-129) mg/dL HDL Cholesterol (30-70) mg/dL 25-OH Vitamin D Total (30.0-100.0) NG/ML Procalcitonin 54.73 H (0.19-0.49) NG/ML Venous Blood Potassium (3.6-5.2) mmol/L Vancomycin Trough (5.0-10.0) ug/mL Serum Ketones (NEGATIVE) Hep Bs Antigen (NEGATIVE) Hep Bs Antibody (NEGATIVE) Hep B Core IgM Ab (NEGATIVE) Hepatitis C Antibody (NEGATIVE) 08/30/17 08/30/17 08/30/17 Range/Units 07:47 05:00 03:49 WBC (4.8-10.8) K/uL RBC (3.80-5.20) Mil/uL Hgb (11.0-16.0) g/dL Hct (34.0-47.0) % MCV (81.0-99.0) fL MCH (27.0-31.0) pg MCHC (33.0-37.0) g/dL RDW (11.5-14.5) % Plt Count (130-400) K/uL MPV (7.2-11.7) fL Neut % (Auto) (50.0-75.0) % Lymph % (Auto) (20.0-40.0) % Page % (Auto) (0.0-10.0) % Eos % (Auto) (0.0-4.0) % Baso % (Auto) (0.0-2.0) % Neut # (Auto) (1.8-7.0) K/uL Lymph # (Auto) (1.0-4.3) K/uL Page # (Auto) (0.0-0.8) K/uL Eos # (Auto) (0.0-0.7) K/uL Baso # (Auto) (0.0-0.2) K/uL Neutrophils % (Manual) (50-75) % Lymphocytes % (Manual) (20-40) % Monocytes % (Manual) (0-10) % Platelet Estimate (NORMAL) Hypochromasia (manual) Poikilocytosis (manual Anisocytosis (manual) Ovalocytes PT (9.7-12.2) SECONDS INR APTT (21-34) SECONDS D-Dimer, Quantitative (0-243) ng/mlDDU pO2 (30-55) mm/Hg VBG pH (7.32-7.43) VBG pCO2 (40-60) mmHg VBG HCO3 mmol/L VBG Total CO2 (22-28) mmol/L VBG O2 Sat (Calc) (40-65) % VBG Base Excess (0.0-2.0) mmol/L VBG Potassium (3.6-5.2) mmol/L Glucose (65-105) mg/dl Lactate (0.7-2.1) mmol/L Crit Value Called To Crit Value Called By Crit Value Read Back Blood Gas Notified Time Sodium (132-148) mmol/L Potassium (3.6-5.2) mmol/L Chloride (98-107) mmol/L Carbon Dioxide (22-30) mmol/L Anion Gap (10-20) BUN (7-17) mg/dL Creatinine (0.7-1.2) mg/dL Est GFR ( Amer) Est GFR (Non-Af Amer) POC Glucose (mg/dL) 349 H (65-110) mg/dL Random Glucose (65-105) mg/dL Lactic Acid 3.4 H (0.7-2.1) mmol/L Calcium (8.6-10.4) mg/dl Phosphorus (2.5-4.5) mg/dL Magnesium (1.6-2.3) mg/dL Iron (37-170) ug/dL TIBC (250-450) ug/dL % Saturation (20-55) Ferritin ng/mL Total Bilirubin (0.2-1.3) mg/dL AST (14-36) U/L ALT (9-52) U/L Alkaline Phosphatase (38-126) U/L Troponin I (0.00-0.120) ng/mL NT-Pro-B Natriuret Pep (0-900) pg/mL Total Protein (6.3-8.3) g/dL Albumin (3.5-5.0) g/dL Globulin (2.2-3.9) gm/dL Albumin/Globulin Ratio (1.0-2.1) Triglycerides 170 H D (0-149) mg/dL Cholesterol 228 H (0-199) mg/dL LDL Cholesterol Direct 68 (0-129) mg/dL HDL Cholesterol 61 (30-70) mg/dL 25-OH Vitamin D Total (30.0-100.0) NG/ML Procalcitonin (0.19-0.49) NG/ML Venous Blood Potassium (3.6-5.2) mmol/L Vancomycin Trough (5.0-10.0) ug/mL Serum Ketones (NEGATIVE) Hep Bs Antigen (NEGATIVE) Hep Bs Antibody (NEGATIVE) Hep B Core IgM Ab (NEGATIVE) Hepatitis C Antibody (NEGATIVE) 08/30/17 08/30/17 08/30/17 Range/Units 03:49 03:49 02:17 WBC 15.7 H (4.8-10.8) K/uL RBC 3.48 L (3.80-5.20) Mil/uL Hgb 9.6 L (11.0-16.0) g/dL Hct 29.6 L (34.0-47.0) % MCV 85.2 D (81.0-99.0) fL MCH 27.7 (27.0-31.0) pg MCHC 32.5 L (33.0-37.0) g/dL RDW 16.2 H (11.5-14.5) % Plt Count 143 (130-400) K/uL MPV 8.9 (7.2-11.7) fL Neut % (Auto) 90.5 H (50.0-75.0) % Lymph % (Auto) 3.4 L (20.0-40.0) % Page % (Auto) 5.6 (0.0-10.0) % Eos % (Auto) 0.0 (0.0-4.0) % Baso % (Auto) 0.5 (0.0-2.0) % Neut # (Auto) 14.2 H (1.8-7.0) K/uL Lymph # (Auto) 0.5 L (1.0-4.3) K/uL Page # (Auto) 0.9 H (0.0-0.8) K/uL Eos # (Auto) 0.0 (0.0-0.7) K/uL Baso # (Auto) 0.1 (0.0-0.2) K/uL Neutrophils % (Manual) 93 H (50-75) % Lymphocytes % (Manual) 4 L (20-40) % Monocytes % (Manual) 3 (0-10) % Platelet Estimate Normal (NORMAL) Hypochromasia (manual) Slight Poikilocytosis (manual Slight Anisocytosis (manual) Slight Ovalocytes Slight PT 14.6 H (9.7-12.2) SECONDS INR 1.3 APTT 29 (21-34) SECONDS D-Dimer, Quantitative (0-243) ng/mlDDU pO2 (30-55) mm/Hg VBG pH (7.32-7.43) VBG pCO2 (40-60) mmHg VBG HCO3 mmol/L VBG Total CO2 (22-28) mmol/L VBG O2 Sat (Calc) (40-65) % VBG Base Excess (0.0-2.0) mmol/L VBG Potassium (3.6-5.2) mmol/L Glucose (65-105) mg/dl Lactate (0.7-2.1) mmol/L Crit Value Called To Crit Value Called By Crit Value Read Back Blood Gas Notified Time Sodium 139 (132-148) mmol/L Potassium 5.9 H (3.6-5.2) mmol/L Chloride 106 (98-107) mmol/L Carbon Dioxide 16 L (22-30) mmol/L Anion Gap 24 H (10-20) BUN 79 H (7-17) mg/dL Creatinine 5.2 H (0.7-1.2) mg/dL Est GFR ( Amer) 10 Est GFR (Non-Af Amer) 8 POC Glucose (mg/dL) (65-110) mg/dL Random Glucose 415 H* D (65-105) mg/dL Lactic Acid (0.7-2.1) mmol/L Calcium 8.6 (8.6-10.4) mg/dl Phosphorus 5.8 H (2.5-4.5) mg/dL Magnesium 2.1 (1.6-2.3) mg/dL Iron (37-170) ug/dL TIBC (250-450) ug/dL % Saturation (20-55) Ferritin ng/mL Total Bilirubin (0.2-1.3) mg/dL AST (14-36) U/L ALT (9-52) U/L Alkaline Phosphatase (38-126) U/L Troponin I 96.9000 H* (0.00-0.120) ng/mL NT-Pro-B Natriuret Pep (0-900) pg/mL Total Protein (6.3-8.3) g/dL Albumin (3.5-5.0) g/dL Globulin (2.2-3.9) gm/dL Albumin/Globulin Ratio (1.0-2.1) Triglycerides (0-149) mg/dL Cholesterol (0-199) mg/dL LDL Cholesterol Direct (0-129) mg/dL HDL Cholesterol (30-70) mg/dL 25-OH Vitamin D Total (30.0-100.0) NG/ML Procalcitonin (0.19-0.49) NG/ML Venous Blood Potassium (3.6-5.2) mmol/L Vancomycin Trough (5.0-10.0) ug/mL Serum Ketones (NEGATIVE) Hep Bs Antigen (NEGATIVE) Hep Bs Antibody (NEGATIVE) Hep B Core IgM Ab (NEGATIVE) Hepatitis C Antibody (NEGATIVE) 08/30/17 08/30/17 08/29/17 Range/Units 02:01 01:18 23:25 WBC (4.8-10.8) K/uL RBC (3.80-5.20) Mil/uL Hgb (11.0-16.0) g/dL Hct (34.0-47.0) % MCV (81.0-99.0) fL MCH (27.0-31.0) pg MCHC (33.0-37.0) g/dL RDW (11.5-14.5) % Plt Count (130-400) K/uL MPV (7.2-11.7) fL Neut % (Auto) (50.0-75.0) % Lymph % (Auto) (20.0-40.0) % Page % (Auto) (0.0-10.0) % Eos % (Auto) (0.0-4.0) % Baso % (Auto) (0.0-2.0) % Neut # (Auto) (1.8-7.0) K/uL Lymph # (Auto) (1.0-4.3) K/uL Page # (Auto) (0.0-0.8) K/uL Eos # (Auto) (0.0-0.7) K/uL Baso # (Auto) (0.0-0.2) K/uL Neutrophils % (Manual) (50-75) % Lymphocytes % (Manual) (20-40) % Monocytes % (Manual) (0-10) % Platelet Estimate (NORMAL) Hypochromasia (manual) Poikilocytosis (manual Anisocytosis (manual) Ovalocytes PT (9.7-12.2) SECONDS INR APTT (21-34) SECONDS D-Dimer, Quantitative (0-243) ng/mlDDU pO2 16 L (30-55) mm/Hg VBG pH 7.16 L* (7.32-7.43) VBG pCO2 40 (40-60) mmHg VBG HCO3 11.9 mmol/L VBG Total CO2 15.5 L (22-28) mmol/L VBG O2 Sat (Calc) 35.2 L (40-65) % VBG Base Excess -13.8 L (0.0-2.0) mmol/L VBG Potassium 5.8 H (3.6-5.2) mmol/L Glucose 562 H* D (65-105) mg/dl Lactate 2.5 H (0.7-2.1) mmol/L Crit Value Called To Willow [email or web address]/[email or web address] Crit Value Called By Shoaib anderson/rt Crit Value Read Back Y Blood Gas Notified Time 2335 Sodium 139.0 (132-148) mmol/L Potassium (3.6-5.2) mmol/L Chloride 103.0 (98-107) mmol/L Carbon Dioxide (22-30) mmol/L Anion Gap (10-20) BUN (7-17) mg/dL Creatinine (0.7-1.2) mg/dL Est GFR ( Amer) Est GFR (Non-Af Amer) POC Glucose (mg/dL) 374 H 362 H (65-110) mg/dL Random Glucose (65-105) mg/dL Lactic Acid (0.7-2.1) mmol/L Calcium (8.6-10.4) mg/dl Phosphorus (2.5-4.5) mg/dL Magnesium (1.6-2.3) mg/dL Iron (37-170) ug/dL TIBC (250-450) ug/dL % Saturation (20-55) Ferritin ng/mL Total Bilirubin (0.2-1.3) mg/dL AST (14-36) U/L ALT (9-52) U/L Alkaline Phosphatase (38-126) U/L Troponin I (0.00-0.120) ng/mL NT-Pro-B Natriuret Pep (0-900) pg/mL Total Protein (6.3-8.3) g/dL Albumin (3.5-5.0) g/dL Globulin (2.2-3.9) gm/dL Albumin/Globulin Ratio (1.0-2.1) Triglycerides (0-149) mg/dL Cholesterol (0-199) mg/dL LDL Cholesterol Direct (0-129) mg/dL HDL Cholesterol (30-70) mg/dL 25-OH Vitamin D Total (30.0-100.0) NG/ML Procalcitonin (0.19-0.49) NG/ML Venous Blood Potassium 5.8 H (3.6-5.2) mmol/L Vancomycin Trough (5.0-10.0) ug/mL Serum Ketones (NEGATIVE) Hep Bs Antigen (NEGATIVE) Hep Bs Antibody (NEGATIVE) Hep B Core IgM Ab (NEGATIVE) Hepatitis C Antibody (NEGATIVE) 08/29/17 08/29/17 08/29/17 Range/Units 22:51 22:51 22:51 WBC 16.3 H D (4.8-10.8) K/uL RBC 3.72 L (3.80-5.20) Mil/uL Hgb 10.3 L (11.0-16.0) g/dL Hct 32.5 L (34.0-47.0) % MCV 87.4 (81.0-99.0) fL MCH 27.7 (27.0-31.0) pg MCHC 31.6 L (33.0-37.0) g/dL RDW 16.7 H (11.5-14.5) % Plt Count 156 (130-400) K/uL MPV 9.4 (7.2-11.7) fL Neut % (Auto) 90.5 H (50.0-75.0) % Lymph % (Auto) 3.8 L (20.0-40.0) % Page % (Auto) 4.8 (0.0-10.0) % Eos % (Auto) 0.0 (0.0-4.0) % Baso % (Auto) 0.9 (0.0-2.0) % Neut # (Auto) 14.8 H (1.8-7.0) K/uL Lymph # (Auto) 0.6 L (1.0-4.3) K/uL Page # (Auto) 0.8 (0.0-0.8) K/uL Eos # (Auto) 0.0 (0.0-0.7) K/uL Baso # (Auto) 0.1 (0.0-0.2) K/uL Neutrophils % (Manual) 92 H (50-75) % Lymphocytes % (Manual) 5 L (20-40) % Monocytes % (Manual) 3 (0-10) % Platelet Estimate Normal (NORMAL) Hypochromasia (manual) Poikilocytosis (manual Anisocytosis (manual) Ovalocytes PT (9.7-12.2) SECONDS INR APTT (21-34) SECONDS D-Dimer, Quantitative 4388 H (0-243) ng/mlDDU pO2 (30-55) mm/Hg VBG pH (7.32-7.43) VBG pCO2 (40-60) mmHg VBG HCO3 mmol/L VBG Total CO2 (22-28) mmol/L VBG O2 Sat (Calc) (40-65) % VBG Base Excess (0.0-2.0) mmol/L VBG Potassium (3.6-5.2) mmol/L Glucose (65-105) mg/dl Lactate (0.7-2.1) mmol/L Crit Value Called To Crit Value Called By Crit Value Read Back Blood Gas Notified Time Sodium 137 (132-148) mmol/L Potassium 6.5 H* D (3.6-5.2) mmol/L Chloride 105 (98-107) mmol/L Carbon Dioxide 11 L* D (22-30) mmol/L Anion Gap 28 H (10-20) BUN 74 H (7-17) mg/dL Creatinine 4.7 H (0.7-1.2) mg/dL Est GFR ( Amer) 11 Est GFR (Non-Af Amer) 9 POC Glucose (mg/dL) (65-110) mg/dL Random Glucose 559 H* D (65-105) mg/dL Lactic Acid (0.7-2.1) mmol/L Calcium 8.0 L (8.6-10.4) mg/dl Phosphorus (2.5-4.5) mg/dL Magnesium (1.6-2.3) mg/dL Iron (37-170) ug/dL TIBC (250-450) ug/dL % Saturation (20-55) Ferritin ng/mL Total Bilirubin 1.6 H (0.2-1.3) mg/dL AST 193 H (14-36) U/L ALT 54 H D (9-52) U/L Alkaline Phosphatase 96 (38-126) U/L Troponin I 103.0000 H* (0.00-0.120) ng/mL NT-Pro-B Natriuret Pep 39207 H (0-900) pg/mL Total Protein 7.3 (6.3-8.3) g/dL Albumin 3.6 (3.5-5.0) g/dL Globulin 3.7 (2.2-3.9) gm/dL Albumin/Globulin Ratio 1.0 (1.0-2.1) Triglycerides (0-149) mg/dL Cholesterol (0-199) mg/dL LDL Cholesterol Direct (0-129) mg/dL HDL Cholesterol (30-70) mg/dL 25-OH Vitamin D Total (30.0-100.0) NG/ML Procalcitonin (0.19-0.49) NG/ML Venous Blood Potassium (3.6-5.2) mmol/L Vancomycin Trough (5.0-10.0) ug/mL Serum Ketones Negative (NEGATIVE) Hep Bs Antigen (NEGATIVE) Hep Bs Antibody (NEGATIVE) Hep B Core IgM Ab (NEGATIVE) Hepatitis C Antibody (NEGATIVE) 08/29/17 Range/Units 22:18 WBC (4.8-10.8) K/uL RBC (3.80-5.20) Mil/uL Hgb (11.0-16.0) g/dL Hct (34.0-47.0) % MCV (81.0-99.0) fL MCH (27.0-31.0) pg MCHC (33.0-37.0) g/dL RDW (11.5-14.5) % Plt Count (130-400) K/uL MPV (7.2-11.7) fL Neut % (Auto) (50.0-75.0) % Lymph % (Auto) (20.0-40.0) % Page % (Auto) (0.0-10.0) % Eos % (Auto) (0.0-4.0) % Baso % (Auto) (0.0-2.0) % Neut # (Auto) (1.8-7.0) K/uL Lymph # (Auto) (1.0-4.3) K/uL Page # (Auto) (0.0-0.8) K/uL Eos # (Auto) (0.0-0.7) K/uL Baso # (Auto) (0.0-0.2) K/uL Neutrophils % (Manual) (50-75) % Lymphocytes % (Manual) (20-40) % Monocytes % (Manual) (0-10) % Platelet Estimate (NORMAL) Hypochromasia (manual) Poikilocytosis (manual Anisocytosis (manual) Ovalocytes PT (9.7-12.2) SECONDS INR APTT (21-34) SECONDS D-Dimer, Quantitative (0-243) ng/mlDDU pO2 (30-55) mm/Hg VBG pH (7.32-7.43) VBG pCO2 (40-60) mmHg VBG HCO3 mmol/L VBG Total CO2 (22-28) mmol/L VBG O2 Sat (Calc) (40-65) % VBG Base Excess (0.0-2.0) mmol/L VBG Potassium (3.6-5.2) mmol/L Glucose (65-105) mg/dl Lactate (0.7-2.1) mmol/L Crit Value Called To Crit Value Called By Crit Value Read Back Blood Gas Notified Time Sodium (132-148) mmol/L Potassium (3.6-5.2) mmol/L Chloride (98-107) mmol/L Carbon Dioxide (22-30) mmol/L Anion Gap (10-20) BUN (7-17) mg/dL Creatinine (0.7-1.2) mg/dL Est GFR ( Amer) Est GFR (Non-Af Amer) POC Glucose (mg/dL) 467 H* (65-110) mg/dL Random Glucose (65-105) mg/dL Lactic Acid (0.7-2.1) mmol/L Calcium (8.6-10.4) mg/dl Phosphorus (2.5-4.5) mg/dL Magnesium (1.6-2.3) mg/dL Iron (37-170) ug/dL TIBC (250-450) ug/dL % Saturation (20-55) Ferritin ng/mL Total Bilirubin (0.2-1.3) mg/dL AST (14-36) U/L ALT (9-52) U/L Alkaline Phosphatase (38-126) U/L Troponin I (0.00-0.120) ng/mL NT-Pro-B Natriuret Pep (0-900) pg/mL Total Protein (6.3-8.3) g/dL Albumin (3.5-5.0) g/dL Globulin (2.2-3.9) gm/dL Albumin/Globulin Ratio (1.0-2.1) Triglycerides (0-149) mg/dL Cholesterol (0-199) mg/dL LDL Cholesterol Direct (0-129) mg/dL HDL Cholesterol (30-70) mg/dL 25-OH Vitamin D Total (30.0-100.0) NG/ML Procalcitonin (0.19-0.49) NG/ML Venous Blood Potassium (3.6-5.2) mmol/L Vancomycin Trough (5.0-10.0) ug/mL Serum Ketones (NEGATIVE) Hep Bs Antigen (NEGATIVE) Hep Bs Antibody (NEGATIVE) Hep B Core IgM Ab (NEGATIVE) Hepatitis C Antibody (NEGATIVE) Laboratory Results - last 24 hr 08/29/17 08/29/17 08/29/17 22:18 22:51 22:51 WBC 16.3 H D RBC 3.72 L Hgb 10.3 L Hct 32.5 L MCV 87.4 MCH 27.7 MCHC 31.6 L RDW 16.7 H Plt Count 156 MPV 9.4 Neut % (Auto) 90.5 H Lymph % (Auto) 3.8 L Page % (Auto) 4.8 Eos % (Auto) 0.0 Baso % (Auto) 0.9 Neut # (Auto) 14.8 H Lymph # (Auto) 0.6 L Page # (Auto) 0.8 Eos # (Auto) 0.0 Baso # (Auto) 0.1 Neutrophils % (Manual) 92 H Lymphocytes % (Manual) 5 L Monocytes % (Manual) 3 Platelet Estimate Normal Hypochromasia (manual) Poikilocytosis (manual Anisocytosis (manual) Ovalocytes PT INR APTT D-Dimer, Quantitative 4388 H pO2 VBG pH VBG pCO2 VBG HCO3 VBG Total CO2 VBG O2 Sat (Calc) VBG Base Excess VBG Potassium Glucose Lactate Crit Value Called To Crit Value Called By Crit Value Read Back Blood Gas Notified Time Sodium Potassium Chloride Carbon Dioxide Anion Gap BUN Creatinine Est GFR ( Amer) Est GFR (Non-Af Amer) POC Glucose (mg/dL) 467 H* Random Glucose Lactic Acid Calcium Phosphorus Magnesium Iron TIBC % Saturation Ferritin Total Bilirubin AST ALT Alkaline Phosphatase Troponin I NT-Pro-B Natriuret Pep Total Protein Albumin Globulin Albumin/Globulin Ratio Triglycerides Cholesterol LDL Cholesterol Direct HDL Cholesterol 25-OH Vitamin D Total Procalcitonin Venous Blood Potassium Vancomycin Trough Serum Ketones Hep Bs Antigen Hep Bs Antibody Hep B Core IgM Ab Hepatitis C Antibody 08/29/17 08/29/17 08/30/17 22:51 23:25 01:18 WBC RBC Hgb Hct MCV MCH MCHC RDW Plt Count MPV Neut % (Auto) Lymph % (Auto) Page % (Auto) Eos % (Auto) Baso % (Auto) Neut # (Auto) Lymph # (Auto) Page # (Auto) Eos # (Auto) Baso # (Auto) Neutrophils % (Manual) Lymphocytes % (Manual) Monocytes % (Manual) Platelet Estimate Hypochromasia (manual) Poikilocytosis (manual Anisocytosis (manual) Ovalocytes PT INR APTT D-Dimer, Quantitative pO2 16 L VBG pH 7.16 L* VBG pCO2 40 VBG HCO3 11.9 VBG Total CO2 15.5 L VBG O2 Sat (Calc) 35.2 L VBG Base Excess -13.8 L VBG Potassium 5.8 H Glucose 562 H* D Lactate 2.5 H Crit Value Called To Willow dobson/rn Crit Value Called By Shoaib anderson/rt Crit Value Read Back Y Blood Gas Notified Time 2335 Sodium 137 139.0 Potassium 6.5 H* D Chloride 105 103.0 Carbon Dioxide 11 L* D Anion Gap 28 H BUN 74 H Creatinine 4.7 H Est GFR ( Amer) 11 Est GFR (Non-Af Amer) 9 POC Glucose (mg/dL) 362 H Random Glucose 559 H* D Lactic Acid Calcium 8.0 L Phosphorus Magnesium Iron TIBC % Saturation Ferritin Total Bilirubin 1.6 H AST 193 H ALT 54 H D Alkaline Phosphatase 96 Troponin I 103.0000 H* NT-Pro-B Natriuret Pep 89704 H Total Protein 7.3 Albumin 3.6 Globulin 3.7 Albumin/Globulin Ratio 1.0 Triglycerides Cholesterol LDL Cholesterol Direct HDL Cholesterol 25-OH Vitamin D Total Procalcitonin Venous Blood Potassium 5.8 H Vancomycin Trough Serum Ketones Negative Hep Bs Antigen Hep Bs Antibody Hep B Core IgM Ab Hepatitis C Antibody 08/30/17 08/30/17 08/30/17 02:01 02:17 03:49 WBC 15.7 H RBC 3.48 L Hgb 9.6 L Hct 29.6 L MCV 85.2 D MCH 27.7 MCHC 32.5 L RDW 16.2 H Plt Count 143 MPV 8.9 Neut % (Auto) 90.5 H Lymph % (Auto) 3.4 L Page % (Auto) 5.6 Eos % (Auto) 0.0 Baso % (Auto) 0.5 Neut # (Auto) 14.2 H Lymph # (Auto) 0.5 L Page # (Auto) 0.9 H Eos # (Auto) 0.0 Baso # (Auto) 0.1 Neutrophils % (Manual) 93 H Lymphocytes % (Manual) 4 L Monocytes % (Manual) 3 Platelet Estimate Normal Hypochromasia (manual) Slight Poikilocytosis (manual Slight Anisocytosis (manual) Slight Ovalocytes Slight PT 14.6 H INR 1.3 APTT 29 D-Dimer, Quantitative pO2 VBG pH VBG pCO2 VBG HCO3 VBG Total CO2 VBG O2 Sat (Calc) VBG Base Excess VBG Potassium Glucose Lactate Crit Value Called To Crit Value Called By Crit Value Read Back Blood Gas Notified Time Sodium Potassium Chloride Carbon Dioxide Anion Gap BUN Creatinine Est GFR ( Amer) Est GFR (Non-Af Amer) POC Glucose (mg/dL) 374 H Random Glucose Lactic Acid Calcium Phosphorus Magnesium Iron TIBC % Saturation Ferritin Total Bilirubin AST ALT Alkaline Phosphatase Troponin I NT-Pro-B Natriuret Pep Total Protein Albumin Globulin Albumin/Globulin Ratio Triglycerides Cholesterol LDL Cholesterol Direct HDL Cholesterol 25-OH Vitamin D Total Procalcitonin Venous Blood Potassium Vancomycin Trough Serum Ketones Hep Bs Antigen Hep Bs Antibody Hep B Core IgM Ab Hepatitis C Antibody 08/30/17 08/30/17 08/30/17 03:49 03:49 05:00 WBC RBC Hgb Hct MCV MCH MCHC RDW Plt Count MPV Neut % (Auto) Lymph % (Auto) Page % (Auto) Eos % (Auto) Baso % (Auto) Neut # (Auto) Lymph # (Auto) Page # (Auto) Eos # (Auto) Baso # (Auto) Neutrophils % (Manual) Lymphocytes % (Manual) Monocytes % (Manual) Platelet Estimate Hypochromasia (manual) Poikilocytosis (manual Anisocytosis (manual) Ovalocytes PT INR APTT D-Dimer, Quantitative pO2 VBG pH VBG pCO2 VBG HCO3 VBG Total CO2 VBG O2 Sat (Calc) VBG Base Excess VBG Potassium Glucose Lactate Crit Value Called To Crit Value Called By Crit Value Read Back Blood Gas Notified Time Sodium 139 Potassium 5.9 H Chloride 106 Carbon Dioxide 16 L Anion Gap 24 H BUN 79 H Creatinine 5.2 H Est GFR ( Amer) 10 Est GFR (Non-Af Amer) 8 POC Glucose (mg/dL) Random Glucose 415 H* D Lactic Acid 3.4 H Calcium 8.6 Phosphorus 5.8 H Magnesium 2.1 Iron TIBC % Saturation Ferritin Total Bilirubin AST ALT Alkaline Phosphatase Troponin I 96.9000 H* NT-Pro-B Natriuret Pep Total Protein Albumin Globulin Albumin/Globulin Ratio Triglycerides 170 H D Cholesterol 228 H LDL Cholesterol Direct 68 HDL Cholesterol 61 25-OH Vitamin D Total Procalcitonin Venous Blood Potassium Vancomycin Trough Serum Ketones Hep Bs Antigen Hep Bs Antibody Hep B Core IgM Ab Hepatitis C Antibody 08/30/17 08/30/17 08/30/17 07:47 08:34 11:15 WBC RBC Hgb Hct MCV MCH MCHC RDW Plt Count MPV Neut % (Auto) Lymph % (Auto) Page % (Auto) Eos % (Auto) Baso % (Auto) Neut # (Auto) Lymph # (Auto) Page # (Auto) Eos # (Auto) Baso # (Auto) Neutrophils % (Manual) Lymphocytes % (Manual) Monocytes % (Manual) Platelet Estimate Hypochromasia (manual) Poikilocytosis (manual Anisocytosis (manual) Ovalocytes PT INR APTT D-Dimer, Quantitative pO2 VBG pH VBG pCO2 VBG HCO3 VBG Total CO2 VBG O2 Sat (Calc) VBG Base Excess VBG Potassium Glucose Lactate Crit Value Called To Crit Value Called By Crit Value Read Back Blood Gas Notified Time Sodium Potassium Chloride Carbon Dioxide Anion Gap BUN Creatinine Est GFR ( Amer) Est GFR (Non-Af Amer) POC Glucose (mg/dL) 349 H 345 H Random Glucose Lactic Acid Calcium Phosphorus Magnesium Iron TIBC % Saturation Ferritin Total Bilirubin AST ALT Alkaline Phosphatase Troponin I NT-Pro-B Natriuret Pep Total Protein Albumin Globulin Albumin/Globulin Ratio Triglycerides Cholesterol LDL Cholesterol Direct HDL Cholesterol 25-OH Vitamin D Total Procalcitonin 54.73 H Venous Blood Potassium Vancomycin Trough Serum Ketones Hep Bs Antigen Hep Bs Antibody Hep B Core IgM Ab Hepatitis C Antibody 08/30/17 08/30/17 08/30/17 12:19 12:19 12:19 WBC RBC Hgb Hct MCV MCH MCHC RDW Plt Count MPV Neut % (Auto) Lymph % (Auto) Page % (Auto) Eos % (Auto) Baso % (Auto) Neut # (Auto) Lymph # (Auto) Page # (Auto) Eos # (Auto) Baso # (Auto) Neutrophils % (Manual) Lymphocytes % (Manual) Monocytes % (Manual) Platelet Estimate Hypochromasia (manual) Poikilocytosis (manual Anisocytosis (manual) Ovalocytes PT INR APTT 31 D-Dimer, Quantitative pO2 VBG pH VBG pCO2 VBG HCO3 VBG Total CO2 VBG O2 Sat (Calc) VBG Base Excess VBG Potassium Glucose Lactate Crit Value Called To Crit Value Called By Crit Value Read Back Blood Gas Notified Time Sodium Potassium Chloride Carbon Dioxide Anion Gap BUN Creatinine Est GFR ( Amer) Est GFR (Non-Af Amer) POC Glucose (mg/dL) Random Glucose Lactic Acid Calcium Phosphorus Magnesium Iron 18 L TIBC 196 L % Saturation 9 L Ferritin 195.0 Total Bilirubin AST ALT Alkaline Phosphatase Troponin I NT-Pro-B Natriuret Pep Total Protein Albumin Globulin Albumin/Globulin Ratio Triglycerides Cholesterol LDL Cholesterol Direct HDL Cholesterol 25-OH Vitamin D Total 27.1 L Procalcitonin Venous Blood Potassium Vancomycin Trough Serum Ketones Hep Bs Antigen Negative Hep Bs Antibody Hep B Core IgM Ab Negative Hepatitis C Antibody Negative 08/30/17 08/30/17 08/30/17 12:19 16:13 17:41 WBC RBC Hgb Hct MCV MCH MCHC RDW Plt Count MPV Neut % (Auto) Lymph % (Auto) Page % (Auto) Eos % (Auto) Baso % (Auto) Neut # (Auto) Lymph # (Auto) Page # (Auto) Eos # (Auto) Baso # (Auto) Neutrophils % (Manual) Lymphocytes % (Manual) Monocytes % (Manual) Platelet Estimate Hypochromasia (manual) Poikilocytosis (manual Anisocytosis (manual) Ovalocytes PT INR APTT D-Dimer, Quantitative pO2 VBG pH VBG pCO2 VBG HCO3 VBG Total CO2 VBG O2 Sat (Calc) VBG Base Excess VBG Potassium Glucose Lactate Crit Value Called To Crit Value Called By Crit Value Read Back Blood Gas Notified Time Sodium Potassium Chloride Carbon Dioxide Anion Gap BUN Creatinine Est GFR ( Amer) Est GFR (Non-Af Amer) POC Glucose (mg/dL) 384 H Random Glucose Lactic Acid Calcium Phosphorus Magnesium Iron TIBC % Saturation Ferritin Total Bilirubin AST ALT Alkaline Phosphatase Troponin I NT-Pro-B Natriuret Pep Total Protein Albumin Globulin Albumin/Globulin Ratio Triglycerides Cholesterol LDL Cholesterol Direct HDL Cholesterol 25-OH Vitamin D Total Procalcitonin Venous Blood Potassium Vancomycin Trough < 5.0 L Serum Ketones Hep Bs Antigen Hep Bs Antibody Negative Hep B Core IgM Ab Hepatitis C Antibody 08/30/17 18:25 WBC RBC Hgb Hct MCV MCH MCHC RDW Plt Count MPV Neut % (Auto) Lymph % (Auto) Page % (Auto) Eos % (Auto) Baso % (Auto) Neut # (Auto) Lymph # (Auto) Page # (Auto) Eos # (Auto) Baso # (Auto) Neutrophils % (Manual) Lymphocytes % (Manual) Monocytes % (Manual) Platelet Estimate Hypochromasia (manual) Poikilocytosis (manual Anisocytosis (manual) Ovalocytes PT INR APTT 40 H D D-Dimer, Quantitative pO2 VBG pH VBG pCO2 VBG HCO3 VBG Total CO2 VBG O2 Sat (Calc) VBG Base Excess VBG Potassium Glucose Lactate Crit Value Called To Crit Value Called By Crit Value Read Back Blood Gas Notified Time Sodium Potassium Chloride Carbon Dioxide Anion Gap BUN Creatinine Est GFR ( Amer) Est GFR (Non-Af Amer) POC Glucose (mg/dL) Random Glucose Lactic Acid Calcium Phosphorus Magnesium Iron TIBC % Saturation Ferritin Total Bilirubin AST ALT Alkaline Phosphatase Troponin I NT-Pro-B Natriuret Pep Total Protein Albumin Globulin Albumin/Globulin Ratio Triglycerides Cholesterol LDL Cholesterol Direct HDL Cholesterol 25-OH Vitamin D Total Procalcitonin Venous Blood Potassium Vancomycin Trough Serum Ketones Hep Bs Antigen Hep Bs Antibody Hep B Core IgM Ab Hepatitis C Antibody EKG/Cardiology Studies: Cardiology / EKG Studies 08/29/17 20:10 ELECTROCARDIOGRAM Stat Comment: Mode Of Transportation: BED Reason For Exam: chest pain 08/29/17 20:22 ELECTROCARDIOGRAM Stat Comment: Mode Of Transportation: BED Reason For Exam: chest pain 08/30/17 10:36 ELECTROCARDIOGRAM Stat Comment: Mode Of Transportation: PORTABLE Reason For Exam: NSTMI Precautions: Standard Fingerstick Blood Sugar Results: 384 Critical Care Progress Note - Nutrition Nutrition: Nutrition Category Date Time Status NPO Diet [DIET] Diets 08/30/17 Breakfast Active Assessment/Plan - Assessment and Plan (Free Text) Assessment: CPR x 2,V tach,[place] On Iv heparin,amiodarone Renal failure Sepsis/hypotension/metabolic acidosis IV antibiotics,bicarbonate drip for HD antibiotics Prognosis poor.spoke top daughter and grand-daughter.aware of condition.family at bedside
[2017-08-30 20:56] LABS: HEMOGLOBIN 9.2 g/dL (11.0-16.0); MEAN CORPUSCULAR HEMOGLOBIN 27.8 pg (27.0-31.0); MEAN PLATELET VOLUME 9.2 fL (7.2-11.7); RBC 3.31 Mil/uL (3.80-5.20); RED CELL DISTRIBUTION WIDTH 16.6 % (11.5-14.5); WHITE BLOOD COUNT 16.1 K/uL (4.8-10.8)
[2017-08-30] MEDS ORDERED: WATER IV SCH (21:00)
[2017-08-30] MEDS ORDERED: SODIUM BICARBONATE IV SCH (21:00)
[2017-08-30] MEDS ORDERED: DEXTROSE 5% IV SCH (21:00)
[2017-08-30 21:01] LABS: MEAN CELL VOLUME 88.2 fL (81.0-99.0)
[2017-08-30 21:08] LABS: CALCIUM 8.4 mg/dl (8.6-10.4)
[2017-08-30 21:13] LABS: TROPONIN I 79.7 ng/mL (0.00-0.120)
[2017-08-30] MEDS ORDERED: Lidocaine 2% Inj (20ml) ONE (22:25)
[2017-08-30] MEDS: Moxifloxacin IV 400mg/250ml NS 400 MG/250 ML BAG IVPB SCH (23:30)
[2017-08-30] MEDS: (Lantus) Insulin Glargine, Recombinant SC SCH (23:38)
--- NOTE | 2017-08-30 23:42 | CP.PCM.CON ---
History of Present Illness - History of Present Illness History of Present Illness: Vascular Surgery Consult note. Dr. Quinonez History obtained from chart review due to current condition. 76yo F with PMHx of CKD, DM, HTN, HLD, Colonic malignancy s/p resection 2009 here for AMS. Vascular surgery consulted for HD access and evaluation of left AVF. Patient is also with NSTEMI with episodes of sustained VTACH, s/p ACLS and ROSC this evening. Patient also with evidence of acute on chronic kidney disease. Recent ECHO with evidence of severely decreased EF (30%). Patient is acidotic and is on a bicarb drip. Patient's family is at bedside and requesting full code status. Failed Attempts at HD access bilateral femoral veins. Currently on heparin drip for NSTEMI. 12-point ROS unable to be obtained due to patient's current status. PMHx: CKD, DM, HTN, HLD, colonic malignancy, Severely decreased EF, CT, TIA, PAD , CHF, asthma, arthritis PSHx: Colonic malignancy s/p resection (unknown type). Left AVF Family Hx: Mother- of CA (unknown type) Social Hx: Lives alone in [place]. Former heavy tobacco use Allergy: PCNs Review of Systems - Review of Systems Systems not reviewed;Unavailable: Acuity of Condition, Unstable Vital Signs, Altered Mental Status, Intubated Past Patient History - Infectious Disease Hx of Infectious Diseases: None - Tetanus Immunizations Tetanus Immunization: Unknown - Past Medical History & Family History Past Medical History?: Yes - Past Social History Smoking Status: Former Smoker - CARDIAC Hx Hypercholesterolemia: Yes Hx Hypertension: Yes Hx Peripheral Edema: Yes - PULMONARY Hx Asthma: Yes (Dx 15 yrs ago,does not use home o2 anymore) Hx Pneumonia: Yes (x2) - NEUROLOGICAL Hx Transient Ischemic Attacks (TIA): Yes (x3 about 20 yrs ago, 10 yrs ago, 7 yrs ago) - HEENT Hx HEENT Problems: Yes Hx Cataracts: Yes - RENAL Hx Chronic Kidney Disease: Yes - ENDOCRINE/METABOLIC Hx Diabetes Mellitus Type 1: Yes - HEMATOLOGICAL/ONCOLOGICAL Hx Anemia: Yes - INTEGUMENTARY Hx Dermatological Problems: No - MUSCULOSKELETAL/RHEUMATOLOGICAL Hx Arthritis: Yes Hx Fractures: Yes (Right ankle) - GASTROINTESTINAL Hx Gastrointestinal Disorders: Yes Other/Comment: Hx colon cancer - GENITOURINARY/GYNECOLOGICAL Hx Genitourinary Disorders: Yes Other/Comment: Colon CA - PSYCHIATRIC Hx Depression: No Hx Substance Use: No - SURGICAL HISTORY Hx Cataract Extraction: Yes (LEFT) - ANESTHESIA Hx Anesthesia: Yes Hx Anesthesia Reactions: No Hx Malignant Hyperthermia: No Meds Allergies/Adverse Reactions: Allergies Allergy/AdvReac Type Severity Reaction Status Date / Time Penicillins Allergy Intermediate RASH Verified 08/29/17 20:11 - Medications Medications: Current Medications Aspirin (Aspirin Chewable) 81 mg PO DAILY [facility] Last Admin: 08/30/17 09:49 Dose: 81 mg Calcium Acetate (Phoslo) 667 mg PO TID [facility] Last Admin: 08/30/17 18:00 Dose: Not Given Epoetin Alan (Procrit) 4,000 unit IV MWF [facility] Last Admin: 08/30/17 23:34 Dose: Not Given Ergocalciferol (Drisdol 50,000 Intl Units Cap) 1 cap PO Q7D [facility] Ferrous Gluconate (Fergon) 324 mg PO TID [facility] Heparin Sodium/Sodium Chloride (Heparin 03037 Units/250ml 1/2 Normal Saline) 25 ,000 units in 250 mls @ 7.076 mls/hr IV .Q24H PRN; Protocol; 12 UNITS/KG/HR PRN Reason: PROTOCOL Last Titration: 08/30/17 19:00 Dose: 20 units/kg/hr, 11.793 mls/hr Moxifloxacin HCl (Avelox Iv 400mg/250ml Ns) 400 mg in 250 mls @ 167 mls/hr IVPB Q24H [facility] Norepinephrine Bitartrate 8 mg (/ Sodium Chloride) 258 mls @ 7.74 mls/hr IV .Q24H PRN; Protocol; 4 MCG/MIN PRN Reason: TITRATE PER MD ORDER Last Titration: 08/30/17 23:34 Dose: 25 mcg/min, 48.37 mls/hr Sodium Bicarbonate 150 meq/ (Dextrose) 500 mls @ 40 mls/hr IV .[id number] [facility] Stop: 08/31/17 09:29 Last Admin: 08/30/17 21:27 Dose: 40 mls/hr Amiodarone HCl 900 mg/ (Dextrose) 500 mls @ 33.33 mls/hr IV .Q15H1M CAROLYNE; 1 MG/ MIN PRN Reason: Protocol Stop: 08/31/17 03:00 Last Admin: 08/30/17 21:32 Dose: 33.33 mls/hr Amiodarone HCl 900 mg/ (Dextrose) 500 mls @ 16.66 mls/hr IV .Q24H CAROLYNE; 0.5 MG/ MIN PRN Reason: Protocol Stop: 08/31/17 21:00 Insulin Aspart (Novolog) 0 unit SC Q6 [place] PRN Reason: Protocol Last Admin: 08/30/17 18:14 Dose: 5 unit Insulin Glargine (Lantus) 15 unit SC HS [facility] Last Admin: 08/30/17 23:38 Dose: 15 u Metoprolol Tartrate (Lopressor) 25 mg PO BID [facility] Last Admin: 08/30/17 18:14 Dose: 25 mg Nitroglycerin (Nitrostat Sl Tab) 0.4 mg SL Q5M PRN PRN Reason: Other Pantoprazole Sodium (Protonix Inj) 40 mg IVP DAILY [facility] Rosuvastatin Calcium (Crestor) 5 mg PO HS [facility] Last Admin: 08/30/17 01:29 Dose: 5 mg Vitamin B Complex/Vit C/Folic Acid (Nephro-Kamron) 1 tab PO 0800 [facility] Physical Exam - Constitutional Appears: Older Than Stated Age, Chronically Ill - Head Exam Head Exam: ATRAUMATIC, NORMAL INSPECTION, NORMOCEPHALIC - ENT Exam Additional comments: intubated and on vent - Respiratory Exam Respiratory Exam: absent: Accessory Muscle Use Additional comments: intubated and on vent - GI/Abdominal Exam GI & Abdominal Exam: Soft. absent: Distended, Firm, Guarding, Rebound, Rigid, Tenderness - Extremities Exam Additional comments: Bilateral palpable femoral pulses. RIJ TLC in place - Neurological Exam Additional comments: intubated Results - Vital Signs Recent Vital Signs: Last Vital Signs Temp 98.4 F 08/30/17 20:00 Pulse 75 08/30/17 23:15 Resp 22 08/30/17 23:15 BP 153/104 H 08/30/17 23:04 Pulse Ox 98 08/30/17 23:15 - Labs Result Diagrams: 08/30/17 20:41 08/30/17 20:41 Labs: Laboratory Results - last 24 hr 08/29/17 08/30/17 08/30/17 22:51 01:18 02:01 WBC RBC Hgb Hct MCV MCH MCHC RDW Plt Count MPV Neut % (Auto) Lymph % (Auto) Edwards % (Auto) Eos % (Auto) Baso % (Auto) Neut # (Auto) Lymph # (Auto) Edwards # (Auto) Eos # (Auto) Baso # (Auto) Neutrophils % (Manual) Lymphocytes % (Manual) Monocytes % (Manual) Differential Comment Platelet Estimate Hypochromasia (manual) Poikilocytosis (manual Anisocytosis (manual) Ovalocytes PT INR APTT Puncture Site pCO2 pO2 HCO3 ABG pH ABG Total CO2 ABG O2 Saturation ABG Base Excess ABG Hemoglobin ABG Carboxyhemoglobin POC ABG HHb (Measured) ABG Methemoglobin Christian Test A-a O2 Difference Respiratory Index Hgb O2 Saturation Vent Mode Mechanical Rate FiO2 Tidal Volume PEEP Crit Value Called To Crit Value Called By Crit Value Read Back Blood Gas Notified Time Sodium Potassium 6.5 H* D Chloride Carbon Dioxide 11 L* D Anion Gap 28 H BUN Creatinine Est GFR ( Amer) Est GFR (Non-Af Amer) POC Glucose (mg/dL) 362 H 374 H Random Glucose 559 H* D Lactic Acid Calcium Phosphorus Magnesium Iron TIBC % Saturation Ferritin Troponin I 103.0000 H* NT-Pro-B Natriuret Pep 73281 H Triglycerides Cholesterol LDL Cholesterol Direct HDL Cholesterol 25-OH Vitamin D Total Procalcitonin Vancomycin Trough Hep Bs Antigen Hep Bs Antibody Hep B Core IgM Ab Hepatitis C Antibody 08/30/17 08/30/17 08/30/17 02:17 03:49 03:49 WBC 15.7 H RBC 3.48 L Hgb 9.6 L Hct 29.6 L MCV 85.2 D MCH 27.7 MCHC 32.5 L RDW 16.2 H Plt Count 143 MPV 8.9 Neut % (Auto) 90.5 H Lymph % (Auto) 3.4 L Edwards % (Auto) 5.6 Eos % (Auto) 0.0 Baso % (Auto) 0.5 Neut # (Auto) 14.2 H Lymph # (Auto) 0.5 L Edwards # (Auto) 0.9 H Eos # (Auto) 0.0 Baso # (Auto) 0.1 Neutrophils % (Manual) 93 H Lymphocytes % (Manual) 4 L Monocytes % (Manual) 3 Differential Comment Platelet Estimate Normal Hypochromasia (manual) Slight Poikilocytosis (manual Slight Anisocytosis (manual) Slight Ovalocytes Slight PT 14.6 H INR 1.3 APTT 29 Puncture Site pCO2 pO2 HCO3 ABG pH ABG Total CO2 ABG O2 Saturation ABG Base Excess ABG Hemoglobin ABG Carboxyhemoglobin POC ABG HHb (Measured) ABG Methemoglobin Christian Test A-a O2 Difference Respiratory Index Hgb O2 Saturation Vent Mode Mechanical Rate FiO2 Tidal Volume PEEP Crit Value Called To Crit Value Called By Crit Value Read Back Blood Gas Notified Time Sodium 139 Potassium 5.9 H Chloride 106 Carbon Dioxide 16 L Anion Gap 24 H BUN 79 H Creatinine 5.2 H Est GFR ( Amer) 10 Est GFR (Non-Af Amer) 8 POC Glucose (mg/dL) Random Glucose 415 H* D Lactic Acid Calcium 8.6 Phosphorus 5.8 H Magnesium 2.1 Iron TIBC % Saturation Ferritin Troponin I 96.9000 H* NT-Pro-B Natriuret Pep Triglycerides Cholesterol LDL Cholesterol Direct HDL Cholesterol 25-OH Vitamin D Total Procalcitonin Vancomycin Trough Hep Bs Antigen Hep Bs Antibody Hep B Core IgM Ab Hepatitis C Antibody 08/30/17 08/30/17 08/30/17 03:49 05:00 07:47 WBC RBC Hgb Hct MCV MCH MCHC RDW Plt Count MPV Neut % (Auto) Lymph % (Auto) Edwards % (Auto) Eos % (Auto) Baso % (Auto) Neut # (Auto) Lymph # (Auto) Edwards # (Auto) Eos # (Auto) Baso # (Auto) Neutrophils % (Manual) Lymphocytes % (Manual) Monocytes % (Manual) Differential Comment Platelet Estimate Hypochromasia (manual) Poikilocytosis (manual Anisocytosis (manual) Ovalocytes PT INR APTT Puncture Site pCO2 pO2 HCO3 ABG pH ABG Total CO2 ABG O2 Saturation ABG Base Excess ABG Hemoglobin ABG Carboxyhemoglobin POC ABG HHb (Measured) ABG Methemoglobin Christian Test A-a O2 Difference Respiratory Index Hgb O2 Saturation Vent Mode Mechanical Rate FiO2 Tidal Volume PEEP Crit Value Called To Crit Value Called By Crit Value Read Back Blood Gas Notified Time Sodium Potassium Chloride Carbon Dioxide Anion Gap BUN Creatinine Est GFR ( Amer) Est GFR (Non-Af Amer) POC Glucose (mg/dL) 349 H Random Glucose Lactic Acid 3.4 H Calcium Phosphorus Magnesium Iron TIBC % Saturation Ferritin Troponin I NT-Pro-B Natriuret Pep Triglycerides 170 H D Cholesterol 228 H LDL Cholesterol Direct 68 HDL Cholesterol 61 25-OH Vitamin D Total Procalcitonin Vancomycin Trough Hep Bs Antigen Hep Bs Antibody Hep B Core IgM Ab Hepatitis C Antibody 08/30/17 08/30/17 08/30/17 08:34 11:15 12:19 WBC RBC Hgb Hct MCV MCH MCHC RDW Plt Count MPV Neut % (Auto) Lymph % (Auto) Edwards % (Auto) Eos % (Auto) Baso % (Auto) Neut # (Auto) Lymph # (Auto) Edwards # (Auto) Eos # (Auto) Baso # (Auto) Neutrophils % (Manual) Lymphocytes % (Manual) Monocytes % (Manual) Differential Comment Platelet Estimate Hypochromasia (manual) Poikilocytosis (manual Anisocytosis (manual) Ovalocytes PT INR APTT 31 Puncture Site pCO2 pO2 HCO3 ABG pH ABG Total CO2 ABG O2 Saturation ABG Base Excess ABG Hemoglobin ABG Carboxyhemoglobin POC ABG HHb (Measured) ABG Methemoglobin Christian Test A-a O2 Difference Respiratory Index Hgb O2 Saturation Vent Mode Mechanical Rate FiO2 Tidal Volume PEEP Crit Value Called To Crit Value Called By Crit Value Read Back Blood Gas Notified Time Sodium Potassium Chloride Carbon Dioxide Anion Gap BUN Creatinine Est GFR ( Amer) Est GFR (Non-Af Amer) POC Glucose (mg/dL) 345 H Random Glucose Lactic Acid Calcium Phosphorus Magnesium Iron TIBC % Saturation Ferritin Troponin I NT-Pro-B Natriuret Pep Triglycerides Cholesterol LDL Cholesterol Direct HDL Cholesterol 25-OH Vitamin D Total Procalcitonin 54.73 H Vancomycin Trough Hep Bs Antigen Hep Bs Antibody Hep B Core IgM Ab Hepatitis C Antibody 08/30/17 08/30/17 08/30/17 12:19 12:19 12:19 WBC RBC Hgb Hct MCV MCH MCHC RDW Plt Count MPV Neut % (Auto) Lymph % (Auto) Edwards % (Auto) Eos % (Auto) Baso % (Auto) Neut # (Auto) Lymph # (Auto) Edwards # (Auto) Eos # (Auto) Baso # (Auto) Neutrophils % (Manual) Lymphocytes % (Manual) Monocytes % (Manual) Differential Comment Platelet Estimate Hypochromasia (manual) Poikilocytosis (manual Anisocytosis (manual) Ovalocytes PT INR APTT Puncture Site pCO2 pO2 HCO3 ABG pH ABG Total CO2 ABG O2 Saturation ABG Base Excess ABG Hemoglobin ABG Carboxyhemoglobin POC ABG HHb (Measured) ABG Methemoglobin Christian Test A-a O2 Difference Respiratory Index Hgb O2 Saturation Vent Mode Mechanical Rate FiO2 Tidal Volume PEEP Crit Value Called To Crit Value Called By Crit Value Read Back Blood Gas Notified Time Sodium Potassium Chloride Carbon Dioxide Anion Gap BUN Creatinine Est GFR ( Amer) Est GFR (Non-Af Amer) POC Glucose (mg/dL) Random Glucose Lactic Acid Calcium Phosphorus Magnesium Iron 18 L TIBC 196 L % Saturation 9 L Ferritin 195.0 Troponin I NT-Pro-B Natriuret Pep Triglycerides Cholesterol LDL Cholesterol Direct HDL Cholesterol 25-OH Vitamin D Total 27.1 L Procalcitonin Vancomycin Trough Hep Bs Antigen Negative Hep Bs Antibody Negative Hep B Core IgM Ab Negative Hepatitis C Antibody Negative 08/30/17 08/30/17 08/30/17 16:13 17:41 18:25 WBC RBC Hgb Hct MCV MCH MCHC RDW Plt Count MPV Neut % (Auto) Lymph % (Auto) Edwards % (Auto) Eos % (Auto) Baso % (Auto) Neut # (Auto) Lymph # (Auto) Edwards # (Auto) Eos # (Auto) Baso # (Auto) Neutrophils % (Manual) Lymphocytes % (Manual) Monocytes % (Manual) Differential Comment Platelet Estimate Hypochromasia (manual) Poikilocytosis (manual Anisocytosis (manual) Ovalocytes PT INR APTT 40 H D Puncture Site pCO2 pO2 HCO3 ABG pH ABG Total CO2 ABG O2 Saturation ABG Base Excess ABG Hemoglobin ABG Carboxyhemoglobin POC ABG HHb (Measured) ABG Methemoglobin Christian Test A-a O2 Difference Respiratory Index Hgb O2 Saturation Vent Mode Mechanical Rate FiO2 Tidal Volume PEEP Crit Value Called To Crit Value Called By Crit Value Read Back Blood Gas Notified Time Sodium Potassium Chloride Carbon Dioxide Anion Gap BUN Creatinine Est GFR ( Amer) Est GFR (Non-Af Amer) POC Glucose (mg/dL) 384 H Random Glucose Lactic Acid Calcium Phosphorus Magnesium Iron TIBC % Saturation Ferritin Troponin I NT-Pro-B Natriuret Pep Triglycerides Cholesterol LDL Cholesterol Direct HDL Cholesterol 25-OH Vitamin D Total Procalcitonin Vancomycin Trough < 5.0 L Hep Bs Antigen Hep Bs Antibody Hep B Core IgM Ab Hepatitis C Antibody 08/30/17 08/30/17 08/30/17 20:30 20:41 20:41 WBC 16.1 H RBC 3.31 L Hgb 9.2 L Hct 29.2 L MCV 88.2 D MCH 27.8 MCHC 31.5 L RDW 16.6 H Plt Count 127 L MPV 9.2 Neut % (Auto) Lymph % (Auto) Edwards % (Auto) Eos % (Auto) Baso % (Auto) Neut # (Auto) Lymph # (Auto) Edwards # (Auto) Eos # (Auto) Baso # (Auto) Neutrophils % (Manual) Lymphocytes % (Manual) Monocytes % (Manual) Differential Comment Platelet Estimate Hypochromasia (manual) Poikilocytosis (manual Anisocytosis (manual) Ovalocytes PT INR APTT Puncture Site Rba pCO2 26 L pO2 202 H HCO3 10.7 L ABG pH 7.15 L* ABG Total CO2 9.9 L ABG O2 Saturation 99.7 H ABG Base Excess -18.2 L ABG Hemoglobin 11.4 L ABG Carboxyhemoglobin 1.7 H POC ABG HHb (Measured) 0.3 ABG Methemoglobin 1.5 Christian Test Pos A-a O2 Difference 479.0 Respiratory Index 2.4 Hgb O2 Saturation 96.5 Vent Mode Prvc Mechanical Rate 14 FiO2 100.0 Tidal Volume 500 PEEP 5 Crit Value Called To Dr griffin Crit Value Called By [facility] Crit Value Read Back Y Blood Gas Notified Time 2035 Sodium 146 Potassium 5.1 Chloride 108 H Carbon Dioxide 12 L Anion Gap 31 H BUN 91 H Creatinine 6.2 H Est GFR ( Amer) 8 Est GFR (Non-Af Amer) 7 POC Glucose (mg/dL) Random Glucose 333 H Lactic Acid Calcium 8.4 L Phosphorus Magnesium 2.5 H Iron TIBC % Saturation Ferritin Troponin I 79.7000 H* NT-Pro-B Natriuret Pep Triglycerides Cholesterol LDL Cholesterol Direct HDL Cholesterol 25-OH Vitamin D Total Procalcitonin Vancomycin Trough Hep Bs Antigen Hep Bs Antibody Hep B Core IgM Ab Hepatitis C Antibody Assessment & Plan - Assessment and Plan (Free Text) Assessment: 76yo F with ESRD. Vascular surgery consulted for HD access and Left AVF evaluation. Plan: - Will obtain US for left AVF evaluation. - Possible vascular surg intervention for temp HD access - We will follow - Medical mgmt as per primary and ICU teams Further recs as per Dr. Devi Villalpando PGY1 surgery pager: [phone]
--- NOTE | 2017-08-31 00:06 | CARD ---
APPROVED REPORT EXAM: Two-dimensional and M-mode echocardiogram with Doppler and color Doppler. Other Information Quality : GoodRhythm : INDICATION CVA/TIA Pleural Effusion Congestive Heart Failure Non STEMI CKD, DIALYSIS, COLON CA RISK FACTORS Hypertension Hyperlipidemia Diabetes 2D DIMENSIONS IVSd1.2 (0.7-1.1cm)LVDd4.5 (3.9-5.9cm) LVOT Diameter2.0 (1.8-2.4cm)PWd1.3 (0.7-1.1cm) LVDs4.0 (2.5-4.0cm)FS (%) 9.4 % LVEF (%)20.7 (>50%) M-Mode DIMENSIONS RVDd2.00 (2.1-3.2cm)Left Atrium (MM)3.70 (2.5-4.0cm) IVSd1.32 (0.7-1.1cm)Aortic Root2.87 (2.2-3.7cm) LVDd5.16 (4.0-5.6cm)Aortic Cusp Exc.1.36 (1.5-2.0cm) PWd0.67 (0.7-1.1cm)FS (%) 10 % LVDs4.62 (2.0-3.8cm)LVEF (%)23 (>50%) Aortic Valve AoV Peak Xuuhjvcb074.2cm/sAoV VTI26.8cmAO Peak GR.8mmHg LVOT Peak Klbqmbsr00.2cm/sLVOT VTI10.89cmAO Mean GR.5mmHg ALESSANDRO (VMAX)1.13ni0KFP (VTI)1.27cm2 Mitral Valve MV E Urbsddyj201.8cm/sMV A Doilzscd96.1cm/sE/A ratio2.8 TDI E/Lateral E'0.0E/Medial E'0.0 Tricuspid Valve TR Peak Jtpvqzdo882gc/sTR Peak Gr.53hbUiWRHY68kgZp LEFT VENTRICLE There is mild concentric left ventricular hypertrophy. Left ventricle systolic function is severely impaired. The Ejection Fraction is 20-25%. Significant regional wall motion abnormalities noted consistent with CAD. The left ventricular diastolic function is normal. No left ventricle thrombus noted on this study. RIGHT VENTRICLE The right ventricle is normal size. Systolic function is mildly to moderately reduced. ATRIA The left atrium is mildly dilated. The right atrium is mildly dilated. AORTIC VALVE The aortic valve is severely calcified. The aortic valve is trileaflet. There is trace to mild aortic regurgitation. There is moderate valvular aortic stenosis. Cannot exclude aortic valvular vegetation. MITRAL VALVE Mitral annular calcification is severe. There is no evidence of mitral valve prolapse. There is no mitral valve stenosis. Mitral regurgitation is moderate. TRICUSPID VALVE The tricuspid valve is normal in structure. There is moderate tricuspid regurgitation Right ventricular systolic pressure is estimated at greater than 60 mmHg. There is moderate-severe pulmonary hypertension. There is no tricuspid valve prolapse or vegetation. There is no tricuspid valve stenosis. PULMONIC VALVE The pulmonic valve is not well visualized. There is no pulmonic valvular regurgitation. GREAT VESSELS The aortic root is normal in size. Dilated IVC with poor inspiration collapse is consistent with elevated right atrial pressure. PERICARDIAL EFFUSION There is no pericardial effusion. There is large pleural effusion. <Conclusion> There is mild concentric left ventricular hypertrophy. Left ventricle systolic function is severely impaired. The Ejection Fraction is 20-25%. Significant regional wall motion abnormalities noted consistent with CAD. The left ventricular diastolic function is normal. The left atrium is mildly dilated. The right atrium is mildly dilated. There is trace to mild aortic regurgitation. There is moderate valvular aortic stenosis. Mitral regurgitation is moderate. There is moderate tricuspid regurgitation There is moderate-severe pulmonary hypertension. There is large R pleural effusion.
[2017-08-31] MEDS: (Novolog) Insulin Aspart, Recombinant 100 u/ml 10 ml vial SC SCH ×4 (00:07→18:12)
--- NOTE | 2017-08-31 00:20 | PCM.PROC ---
Procedures Attestation:: I certify that I have explained the specified Operation(s) or Procedure(s), risks, benefits and reasonable alternatives to the Patient and/or other person responsible. The opportunity was given to ask questions and all questions answered - Central Line Placement Left Femoral Aseptic technique was employed throughout the procedure: Hand Hygiene done prior to procedure, Full sterile barriers (mask, hair cover, sterile gown, sterile gloves), Full body sterile drape, Chloraprep Antiseptic: 2 minute prep for Femoral CVP Time Out Performed: Yes Pt. Placed on Pulse Ox Monitor: Yes Central Line Prep: Chlorhexidine-Alcohol Combination Local Anesthesia Used: Lidocaine 2% Ultrasound Used for Placement: Yes Additional Comments: HD catheter attempted both right and left femoral veins.Was able to access vein but unsuccessful at advancing guidewire and inserting HD catheter
[2017-08-31 00:33] LABS: VENOUS BLOOD GAS BASE EXCESS -11.2 mmol/L (0.0-2.0); VENOUS BLOOD GAS PCO2 42 mmHg (40-60); VENOUS BLOOD GAS PO2 19 mm/Hg (30-55)
[2017-08-31 03:23] LABS: BASO % 0.2 % (0.0-2.0); HEMOGLOBIN 9.2 g/dL (11.0-16.0); LYMPH % 6.7 % (20.0-40.0); MEAN CELL VOLUME 85.7 fL (81.0-99.0); MEAN CORPUSCULAR HEMOGLOBIN 27.7 pg (27.0-31.0); MEAN CORPUSCULAR HGB CONC 32.3 g/dL (33.0-37.0); MEAN PLATELET VOLUME 8.7 fL (7.2-11.7); MONO # 0.6 K/uL (0.0-0.8); MONO % 3.9 % (0.0-10.0); NEUT # 13.1 K/uL (1.8-7.0); NEUT % 89.2 % (50.0-75.0); NRBC % 2.3 % (0.0-2.0); PLATELET COUNT 132 K/uL (130-400); RBC 3.31 Mil/uL (3.80-5.20); RED CELL DISTRIBUTION WIDTH 16.4 % (11.5-14.5); WHITE BLOOD COUNT 14.6 K/uL (4.8-10.8)
[2017-08-31 03:36] LABS: HDL CHOLESTEROL 56 mg/dL (30-70)
[2017-08-31 03:38] LABS: ALBUMIN 2.9 g/dL (3.5-5.0); CALCIUM 8.1 mg/dl (8.6-10.4)
[2017-08-31 03:46] LABS: LDL CHOLESTEROL 42 mg/dL (0-129)
--- NOTE | 2017-08-31 04:53 | CON ---
DATE: HISTORY OF PRESENT ILLNESS: I was requested by Dr. Houston to evaluate Mrs. Stauffer for possible cardiac catheterization. The patient is a 76-year-old female who has renal insufficiency and AV fistula placed a few years ago in the left upper arm. The patient is hypertensive and diabetic and has a history of colon cancer with resection in 2009. The patient also has a history of DVT in 2011, which was complicated with pulmonary embolism and pulmonary hypertension. The patient was admitted because of altered mental status and uncontrolled diabetes mellitus and was found to have pneumonia. In the meantime, nonST elevation myocardial infarction was ruled in. Echocardiographic study revealed severely depressed ejection fraction with segmental hypokinesis in inferior wall as well as a large left pleural effusion. At this time, the patient is nonverbal, lethargic in ICU. No reported ventricular tachycardia and not requiring pressors. MEDICATIONS: Aspirin 81 mg once a day, Avelox 400 mg intravenous daily, Crestor 5 mg once a day, intravenous heparin therapeutic regimen, Lopressor 25 mg twice a day, PhosLo 1 tablet t.i.d., Procrit 4000 units subcutaneously Saturday, Saturday, and Saturday, Protonix 40 mg intravenous once a day. PAST MEDICAL HISTORY: Hypertension, diabetes mellitus, chronic renal insufficiency. PHYSICAL EXAMINATION: GENERAL: The patient is an elderly female, who is lethargic, nonverbally communicating. VITAL SIGNS: Blood pressure 99/72, heart rate 88, temperature 98.1, respirations 17. HEENT: Pale conjunctiva. CHEST: Absent breath sounds over the left base and there is rhonchi. HEART: S1 and S2, regular. ABDOMEN: Soft. EXTREMITIES: +2 pitting edema. LABORATORY DATA: Troponin is 103 and 96.9. Most recent SMA-7: Sodium 139, potassium 5.9, chloride 106, CO2 is 16, glucose 215, BUN 79, creatinine 5.2. Total cholesterol is 228, triglycerides 170, both are elevated. Lactic acid 3.4. EKG revealed sinus rhythm with a ____ lateral ST segment elevation, rate of 94. ASSESSMENT: 1. NonST elevation myocardial function. 2. Advanced renal insufficiency. 3. Hyperkalemia. 4. Severe metabolic acidosis. 5. Consider underlying sepsis. 6. Large left pleural effusion and significant left lower lobe pneumonia. RECOMMENDATION: Continue current intravenous heparin for subtherapeutic regimen of acute coronary syndrome, aspirin 81 mg once a day, Lopressor 25 mg twice a day. Blood cultures and urine cultures will be obtained. Continue IV Avelox at 200 mg daily. The plan is to initiate hemodialysis for the first time today. If the patient shows reasonable clinical recovery, then cardiac catheterization will be discussed with the patient's family if blood cultures are negative. Also, prognosis is very poor. The case will be discussed with Dr. Houston and with the patient's family. Nish Balderas MD
[2017-08-31] MEDS: Heparin25000 units/250ml 1/2NS 25,000 UNITS/250 ML BAG IV PRN (05:11)
[2017-08-31 05:50] LABS: ARTERIAL BLOOD GAS HCO3 14.6 mmol/L (21-28); ARTERIAL BLOOD GAS HEMOGLOBIN 9.2 g/dL (11.7-17.4); ARTERIAL BLOOD GAS O2 SAT 99.7 % (95-98); ARTERIAL BLOOD GAS PCO2 21 mm/Hg (35-45); ARTERIAL BLOOD GAS PH 7.33 (7.35-7.45); ARTERIAL BLOOD GAS PO2 360 mm/Hg (80-100); ARTERIAL BLOOD GAS TCO2 11.7 mmol/L (22-28)
[2017-08-31 06:03] LABS: BANDS 6 % (0-2); LYMPHOCYTE 3 % (20-40); MONOCYTE 2 % (0-10); NEUTROPHIL 89 % (50-75); NUCLEATED RED BLOOD CELL 6 % (0-0); TOTAL CELLS COUNTED 100
[2017-08-31 06:04] LABS: OVALOCYTES SLIGHT; PLATELET ESTIMATE NORMAL (NORMAL)
[2017-08-31 06:05] LABS: HYPOCHROMIC SLIGHT
--- NOTE | 2017-08-31 08:20 | CP.PCM.PN ---
Subjective - Date & Time of Evaluation Date of Evaluation: 08/31/17 Time of Evaluation: 08:17 - Subjective Subjective: seen and examined,She is awake and responsive on vent s/p Hypotension,asystolic ,CPR,sustained VT,started on amiodarone. patient was intubated First she received 2 epi and 1 bicarb ,regained pulse and BP. Then shocked for VT became asystol,got pulse with 1 epi and 2 Bicarb l Objective - Vital Signs/Intake and Output Vital Signs (last 24 hours): Temp Pulse Resp BP Pulse Ox 97.6 F 67 24 120/35 L 100 08/31/17 04:00 08/31/17 06:00 08/31/17 06:00 08/31/17 05:59 08/31/17 06:00 Intake and Output: 08/31/17 08/31/17 06:59 18:59 Intake Total 1729.1 58 Output Total 0 Balance 1729.1 58 - Medications Medications: Current Medications Aspirin (Aspirin Chewable) 81 mg PO DAILY [facility] Last Admin: 08/30/17 09:49 Dose: 81 mg Calcium Acetate (Phoslo) 667 mg PO TID [facility] Last Admin: 08/30/17 18:00 Dose: Not Given Epoetin Alan (Procrit) 4,000 unit IV MWF [facility] Last Admin: 08/30/17 23:34 Dose: Not Given Ergocalciferol (Drisdol 50,000 Intl Units Cap) 1 cap PO Q7D [facility] Ferrous Gluconate (Fergon) 324 mg PO TID [facility] Heparin Sodium/Sodium Chloride (Heparin 18580 Units/250ml 1/2 Normal Saline) 25 ,000 units in 250 mls @ 7.076 mls/hr IV .Q24H PRN; Protocol; 12 UNITS/KG/HR PRN Reason: PROTOCOL Last Admin: 08/31/17 05:11 Dose: 17 units/kg/hr, 10.024 mls/hr Moxifloxacin HCl (Avelox Iv 400mg/250ml Ns) 400 mg in 250 mls @ 167 mls/hr IVPB Q24H [facility] Last Admin: 08/30/17 23:30 Dose: 167 mls/hr Norepinephrine Bitartrate 8 mg (/ Sodium Chloride) 258 mls @ 7.74 mls/hr IV .Q24H PRN; Protocol; 4 MCG/MIN PRN Reason: TITRATE PER MD ORDER Last Titration: 08/31/17 07:00 Dose: 20 mcg/min, 38.7 mls/hr Sodium Bicarbonate 150 meq/ (Dextrose) 500 mls @ 40 mls/hr IV .[id number] [facility] Stop: 08/31/17 09:29 Last Admin: 08/30/17 21:27 Dose: 40 mls/hr Amiodarone HCl 900 mg/ (Dextrose) 500 mls @ 16.66 mls/hr IV .Q24H [place]; 0.5 MG/ MIN PRN Reason: Protocol Stop: 08/31/17 21:00 Last Admin: 08/31/17 03:00 Dose: 16.66 mls/hr Insulin Aspart (Novolog) 0 unit SC Q6 [place] PRN Reason: Protocol Last Admin: 08/31/17 06:24 Dose: Not Given Insulin Glargine (Lantus) 15 unit SC [facility] Last Admin: 08/30/17 23:38 Dose: 15 u Metoprolol Tartrate (Lopressor) 25 mg PO BID [facility] Last Admin: 08/30/17 18:14 Dose: 25 mg Nitroglycerin (Nitrostat Sl Tab) 0.4 mg SL Q5M PRN PRN Reason: Other Pantoprazole Sodium (Protonix Inj) 40 mg IVP DAILY [facility] Rosuvastatin Calcium (Crestor) 5 mg PO [facility] Last Admin: 08/30/17 01:29 Dose: 5 mg Vitamin B Complex/Vit C/Folic Acid (Nephro-Kamron) 1 tab PO 0800 [facility] - Labs Labs: 08/31/17 03:18 08/31/17 03:18 PT 14.6 SECONDS (9.7-12.2) H 08/30/17 02:17 INR 1.3 08/30/17 02:17 APTT 126 SECONDS (21-34) H* D 08/31/17 03:20 - Constitutional Appears: Chronically Ill - Head Exam Head Exam: NORMAL INSPECTION - Eye Exam Eye Exam: Normal appearance - ENT Exam ENT Exam: Mucous Membranes Moist - Neck Exam Neck Exam: Full ROM - Respiratory Exam Respiratory Exam: Decreased Breath Sounds (at bases), Rales. absent: Wheezes - Cardiovascular Exam Cardiovascular Exam: REGULAR RHYTHM - GI/Abdominal Exam GI & Abdominal Exam: Soft, Normal Bowel Sounds - Extremities Exam Extremities Exam: Full ROM - Neurological Exam Neurological Exam: Awake. absent: Oriented x3 (on Mechanical vent) - Psychiatric Exam Psychiatric exam: Normal Mood - Skin Skin Exam: Dry Assessment and Plan - Assessment and Plan (Free Text) Assessment: Patient is a 76 year old female with a PMH significant for CKD stage V (not on dialysis), Diastolic CHF, DM, HTN, hypercholesterolemia, MO ( many years ago, no known intervention), TIA x 3 (years ago), colon CA who presents for altered mental status. On admission patient was acidotic,NSTEMI ,acute on chronic renal failure, altered mental status and leukocytosis/r/o infection.She was evaluated by crop supervisor yesterday who recommended to continue heparin ,asprin, labetalol and treat her acute renal failure and possible sepsis. ECHO with evidence of severely decreased EF (30%). Patient has a matured AVG in L arm .patient was scheduled to have hemodialysis last night. Patient was hypotensive,then became asystol needed CPR,Epi and bicarb. She was started on amiodarone for sustained VT. Not able to dialysis last night. failed femoral dialysis access. Plan: ] 1 S/P Hypotension/Asystol ,CPR/Sustained VT/Intubation Continue amiodarone and Levophed patient is awake and responsive follow with ICU physician 2.Metabolic acidosis and acute on chronic renal failure Likely due to renal failure Dialysis as per nephrology vascular consult requested for evaluation of dialysis access 3. 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 No plan for tap follow chest x ray and dialysis continue Avelox 7.Hyperglycemia and uncontrolled DM continue Lantus and monitor sugar 8.Anemia likely due to CRF anemia work up 9 Hypertension
--- NOTE | 2017-08-31 08:20 | RAD ---
HISTORY: intubated COMPARISON: Chest radiograph performed approximately 17 hours prior. FINDINGS: LUNGS: Pulmonary vascular congestion. Left basilar atelectasis. PLEURA: Small to moderate left pleural effusion. Trace right pleural effusion. No appreciable pneumothorax. CARDIOVASCULAR: Atherosclerotic aortic calcifications. Heavy mitral annular calcification. Cardiomediastinal silhouette stably enlarged. OSSEOUS STRUCTURES: Unchanged. VISUALIZED UPPER ABDOMEN: Unremarkable. OTHER FINDINGS: New endotracheal tube with tip between the clavicles and the jordan. New enteric tube with tip in the stomach. Overlying pacer pads now present. Right internal jugular access central venous catheter, unchanged. IMPRESSION: New endotracheal and enteric tubes in satisfactory position. Grossly stable pulmonary vascular congestion with trace right and small to moderate left pleural effusions. No other significant interval change.
[2017-08-31] MEDS: Multivitamin Vitamin B Complex (Nephro-Vite) Tab PO SCH (08:30)
--- NOTE | 2017-08-31 08:38 | RAD ---
HISTORY: pt. intubated COMPARISON: Chest radiograph dated 08/30/2017 FINDINGS: LUNGS: Pulmonary vascular congestion. Left basilar atelectasis. PLEURA: Limited evaluation of the right costophrenic angle tip overlying beats. Grossly stable small to moderate left pleural effusion. No pneumothorax apparent. CARDIOVASCULAR: Atherosclerotic aortic calcifications. Heavy mitral annular calcification. Cardiomediastinal silhouette stably enlarged. OSSEOUS STRUCTURES: Unchanged. VISUALIZED UPPER ABDOMEN: Normal. OTHER FINDINGS: Endotracheal and enteric tubes, unchanged. Right internal jugular access central venous catheter, unchanged. IMPRESSION: Stable lines and tubes. Grossly stable pulmonary vascular congestion with small to moderate left pleural effusion. No significant interval change.
--- NOTE | 2017-08-31 08:53 | CARD ---
APPROVED REPORT EKG Measurement Heart [id number] <Conclusion> Normal sinus rhythm Normal ECG
--- NOTE | 2017-08-31 11:07 | RAD ---
HISTORY: Hemodialysis catheter placement COMPARISON: Chest radiograph performed approximately 4 hours prior. FINDINGS: LUNGS: Pulmonary vascular congestion. Left basilar atelectasis. PLEURA: Stable trace right and small to moderate left pleural effusions. No pneumothorax apparent. CARDIOVASCULAR: Atherosclerotic aortic calcifications. Heavy mitral annular calcification Cardiomediastinal silhouette stably enlarged. OSSEOUS STRUCTURES: Unchanged. VISUALIZED UPPER ABDOMEN: Normal. OTHER FINDINGS: New left internal jugular access non tunneled hemodialysis catheter with catheter tip in the upper right atrium. Endotracheal and enteric tubes, unchanged. Right internal jugular access central venous catheter, unchanged. Overlying pacer pads, unchanged. IMPRESSION: New left internal jugular access non tunneled hemodialysis catheter in satisfactory position. No appreciable pneumothorax. No other significant interval change.
--- NOTE | 2017-08-31 11:41 | CP.CCUPN ---
CCU Subjective - Physician Review Subjective (Free Text): Patient s/p cardiac arrest overnight. currently on norepi/amiodarone and continued ventilation Critical Care Time Spent (in minutes): 35 CCU Objective - Vital Signs / Intake & Output Intake and Output (Last 8hrs): Intake & Output 08/30/17 08/31/17 08/31/17 22:59 06:59 14:59 Intake Total 504.3 1253.3 158 Output Total 0 0 Balance 504.3 1253.3 158 Weight 148 lb 9 oz Intake: IV 114 338 158 Intake, IV Amount 390.3 915.3 Right Forearm 39.8 Right Hand 33.9 76.5 distal 99.9 200.0 medial 96.7 318.8 proximal 120 320 Oral 0 Output: Urine 0 0 Urethral (Cleaning) 0 0 Stool 0 Other: # Bowel Movements 0 - Physical Exam Head: Positive for: Atraumatic, Normocephalic. Negative for: Tenderness, Contusion, Swelling Pupils: Positive for: PERRL. Negative for: Sluggish, Non-Reactive Extroacular Muscles: Positive for: EOMI Conjunctiva: Positive for: Normal Mouth: Positive for: Dry Pharnyx: Positive for: Normal Nose (External): Positive for: Atraumatic Neck: Positive for: Trachea Midline. Negative for: JVD Respiratory/Chest: Positive for: Good Air Exchange, Accessory Muscle Use, Decreased Breath Sounds (on bilateral bases). Negative for: Wheezes Cardiovascular: Positive for: Tachycardic Abdomen: Positive for: Distention, Normal Bowel Sounds. Negative for: Peritoneal Signs Upper Extremity: Negative for: Cyanosis, Edema Lower Extremity: Negative for: Edema - Medications Active Medications: Active Medications Generic Name Dose Route Start Last Admin Trade Name Freq PRN Reason Stop Dose Admin Aspirin 81 mg 08/30/17 10:00 08/31/17 09:40 Aspirin Chewable PO 81 mg DAILY CAROLYNE Administration Calcium Acetate 667 mg 08/30/17 14:00 08/31/17 09:40 Phoslo PO 667 mg TID CAROLYNE Administration Epoetin Alan 4,000 unit 08/30/17 15:00 08/30/17 23:34 Procrit IV Not Given MWF [facility] Ergocalciferol 1 cap 08/31/17 14:45 Drisdol 50,000 Intl Units Cap PO Q7D [facility] Ferrous Gluconate 324 mg 08/31/17 10:00 08/31/17 09:40 Fergon PO 324 mg TID CAROLYNE Administration Heparin Sodium/Sodium Chloride 25,000 units in 250 mls @ 7.076 mls/hr 00:56 08/31/17 05:11 Heparin 75088 Units/250ml 1/2 Normal Saline IV 17 units/kg/hr .Q24H PRN 10.024 mls/hr PROTOCOL Administration Protocol 12 UNITS/KG/HR Moxifloxacin HCl 400 mg in 250 mls @ 167 mls/hr 08/30/17 23:00 08/30/17 23:30 Avelox Iv 400mg/250ml Ns IVPB 167 mls/hr Q24H CAROLYNE Administration Norepinephrine Bitartrate 8 mg 258 mls @ 7.74 mls/hr 08/30/17 19:56 08/31/17 11:00 / Sodium Chloride IV 16 mcg/min .Q24H PRN 30.96 mls/hr TITRATE PER MD ORDER Titration Protocol 4 MCG/MIN Amiodarone HCl 900 mg/ 500 mls @ 16.66 mls/hr 08/31/17 03:00 08/31/17 03:00 Dextrose IV 08/31/17 21:00 16.66 mls/hr .Q24H CAROLYNE Administration Protocol 0.5 MG/MIN Sodium Bicarbonate 150 meq/ 1,150 mls @ 75 mls/hr 08/31/17 11:45 Dextrose IV .[id number] [facility] Insulin Aspart 0 unit 08/30/17 18:00 08/31/17 06:24 Novolog SC Not Given Q6 [facility] Protocol Insulin Glargine 15 unit 08/30/17 22:00 08/30/17 23:38 Lantus SC 15 u HS CAROLYNE Administration Metoprolol Tartrate 25 mg 08/30/17 10:00 08/31/17 10:00 Lopressor PO Not Given BID [facility] Nitroglycerin 0.4 mg 08/30/17 00:49 Nitrostat Sl Tab SL Q5M PRN Other Pantoprazole Sodium 40 mg 08/31/17 10:00 08/31/17 11:29 Protonix Inj IVP 40 mg DAILY CAROLYNE Administration Rosuvastatin Calcium 5 mg 08/30/17 01:15 08/30/17 01:29 Crestor PO 5 mg HS CAROLYNE Administration Vitamin B Complex/Vit C/Folic Acid 1 tab 08/31/17 08:00 08/31/17 08:30 Nephro-Kamron PO 1 tab 0800 CAROLYNE Administration - Patient Studies Lab Studies: Microbiology Studies 08/29/17 06:30 Blood Culture - Preliminary Blood-Venous NO GROWTH AFTER 24 HOURS 08/29/17 06:00 Blood Culture - Preliminary Blood-Venous NO GROWTH AFTER 24 HOURS Lab Studies 08/31/17 08/31/17 08/31/17 Range/Units 05:24 05:18 03:20 WBC (4.8-10.8) K/uL RBC (3.80-5.20) Mil/uL Hgb (11.0-16.0) g/dL Hct (34.0-47.0) % MCV (81.0-99.0) fL MCH (27.0-31.0) pg MCHC (33.0-37.0) g/dL RDW (11.5-14.5) % Plt Count (130-400) K/uL MPV (7.2-11.7) fL Neut % (Auto) (50.0-75.0) % Lymph % (Auto) (20.0-40.0) % Jewell % (Auto) (0.0-10.0) % Eos % (Auto) (0.0-4.0) % Baso % (Auto) (0.0-2.0) % Neut # (Auto) (1.8-7.0) K/uL Lymph # (Auto) (1.0-4.3) K/uL Jewell # (Auto) (0.0-0.8) K/uL Eos # (Auto) (0.0-0.7) K/uL Baso # (Auto) (0.0-0.2) K/uL Neutrophils % (Manual) (50-75) % Band Neutrophils % (0-2) % Lymphocytes % (Manual) (20-40) % Monocytes % (Manual) (0-10) % Nucleated RBC % (0-0) % Differential Comment Platelet Estimate (NORMAL) Hypochromasia (manual) Ovalocytes APTT 126 H* D (21-34) SECONDS Puncture Site Rb pCO2 21 L (35-45) mm/Hg pO2 360 H (80-100) mm/Hg HCO3 14.6 L (21-28) mmol/L ABG pH 7.33 L (7.35-7.45) ABG Total CO2 11.7 L (22-28) mmol/L ABG O2 Saturation 99.7 H (95-98) % ABG Base Excess -13.2 L (-2.0-3.0) mmol/L ABG Hemoglobin 9.2 L (11.7-17.4) g/dL ABG Carboxyhemoglobin 1.4 (0.5-1.5) % POC ABG HHb (Measured) 0.3 (0.0-5.0) % ABG Methemoglobin 1.3 (0.0-3.0) % Christian Test Na VBG pH (7.32-7.43) VBG pCO2 (40-60) mmHg VBG HCO3 mmol/L VBG O2 Sat (Calc) (40-65) % VBG Base Excess (0.0-2.0) mmol/L A-a O2 Difference 327.0 mm/Hg Respiratory Index 0.9 Hgb O2 Saturation 96.9 (95.0-98.0) % Vent Mode Prvc Mechanical Rate 24 FiO2 100.0 % Tidal Volume 550 PEEP 5 Crit Value Called To Crit Value Called By Crit Value Read Back Blood Gas Notified Time Sodium (132-148) mmol/L Potassium (3.6-5.2) mmol/L Chloride (98-107) mmol/L Carbon Dioxide (22-30) mmol/L Anion Gap (10-20) BUN (7-17) mg/dL Creatinine (0.7-1.2) mg/dL Est GFR ( Amer) Est GFR (Non-Af Amer) POC Glucose (mg/dL) 118 H (65-110) mg/dL Random Glucose (65-105) mg/dL Calcium (8.6-10.4) mg/dl Magnesium (1.6-2.3) mg/dL Iron (37-170) ug/dL TIBC (250-450) ug/dL % Saturation (20-55) Ferritin ng/mL Total Bilirubin (0.2-1.3) mg/dL AST (14-36) U/L ALT (9-52) U/L Alkaline Phosphatase (38-126) U/L Troponin I (0.00-0.120) ng/mL Total Protein (6.3-8.3) g/dL Albumin (3.5-5.0) g/dL Globulin (2.2-3.9) gm/dL Albumin/Globulin Ratio (1.0-2.1) Triglycerides (0-149) mg/dL Cholesterol (0-199) mg/dL LDL Cholesterol Direct (0-129) mg/dL HDL Cholesterol (30-70) mg/dL 25-OH Vitamin D Total (30.0-100.0) NG/ML Procalcitonin (0.19-0.49) NG/ML Vancomycin Trough (5.0-10.0) ug/mL Hep Bs Antigen (NEGATIVE) Hep Bs Antibody (NEGATIVE) Hep B Core IgM Ab (NEGATIVE) Hepatitis C Antibody (NEGATIVE) 08/31/17 08/31/17 08/31/17 Range/Units 03:18 03:18 03:18 WBC 14.6 H (4.8-10.8) K/uL RBC 3.31 L (3.80-5.20) Mil/uL Hgb 9.2 L (11.0-16.0) g/dL Hct 28.4 L (34.0-47.0) % MCV 85.7 D (81.0-99.0) fL MCH 27.7 (27.0-31.0) pg MCHC 32.3 L (33.0-37.0) g/dL RDW 16.4 H (11.5-14.5) % Plt Count 132 (130-400) K/uL MPV 8.7 (7.2-11.7) fL Neut % (Auto) 89.2 H (50.0-75.0) % Lymph % (Auto) 6.7 L (20.0-40.0) % Jewell % (Auto) 3.9 (0.0-10.0) % Eos % (Auto) 0.0 (0.0-4.0) % Baso % (Auto) 0.2 (0.0-2.0) % Neut # (Auto) 13.1 H (1.8-7.0) K/uL Lymph # (Auto) 1.0 (1.0-4.3) K/uL Jewell # (Auto) 0.6 (0.0-0.8) K/uL Eos # (Auto) 0.0 (0.0-0.7) K/uL Baso # (Auto) 0.0 (0.0-0.2) K/uL Neutrophils % (Manual) 89 H (50-75) % Band Neutrophils % 6 H (0-2) % Lymphocytes % (Manual) 3 L (20-40) % Monocytes % (Manual) 2 (0-10) % Nucleated RBC % 6 H (0-0) % Differential Comment Platelet Estimate Normal (NORMAL) Hypochromasia (manual) Slight Ovalocytes Slight APTT (21-34) SECONDS Puncture Site pCO2 (35-45) mm/Hg pO2 (80-100) mm/Hg HCO3 (21-28) mmol/L ABG pH (7.35-7.45) ABG Total CO2 (22-28) mmol/L ABG O2 Saturation (95-98) % ABG Base Excess (-2.0-3.0) mmol/L ABG Hemoglobin (11.7-17.4) g/dL ABG Carboxyhemoglobin (0.5-1.5) % POC ABG HHb (Measured) (0.0-5.0) % ABG Methemoglobin (0.0-3.0) % Christian Test VBG pH (7.32-7.43) VBG pCO2 (40-60) mmHg VBG HCO3 mmol/L VBG O2 Sat (Calc) (40-65) % VBG Base Excess (0.0-2.0) mmol/L A-a O2 Difference mm/Hg Respiratory Index Hgb O2 Saturation (95.0-98.0) % Vent Mode Mechanical Rate FiO2 % Tidal Volume PEEP Crit Value Called To Crit Value Called By Crit Value Read Back Blood Gas Notified Time Sodium 150 H (132-148) mmol/L Potassium 4.7 (3.6-5.2) mmol/L Chloride 108 H (98-107) mmol/L Carbon Dioxide 16 L (22-30) mmol/L Anion Gap 32 H (10-20) BUN 93 H (7-17) mg/dL Creatinine 6.2 H (0.7-1.2) mg/dL Est GFR ( Amer) 8 Est GFR (Non-Af Amer) 7 POC Glucose (mg/dL) (65-110) mg/dL Random Glucose 125 H (65-105) mg/dL Calcium 8.1 L (8.6-10.4) mg/dl Magnesium (1.6-2.3) mg/dL Iron (37-170) ug/dL TIBC (250-450) ug/dL % Saturation (20-55) Ferritin ng/mL Total Bilirubin 2.0 H (0.2-1.3) mg/dL AST 254 H D (14-36) U/L ALT 108 H D (9-52) U/L Alkaline Phosphatase 77 (38-126) U/L Troponin I (0.00-0.120) ng/mL Total Protein 5.8 L (6.3-8.3) g/dL Albumin 2.9 L (3.5-5.0) g/dL Globulin 2.9 (2.2-3.9) gm/dL Albumin/Globulin Ratio 1.0 (1.0-2.1) Triglycerides 82 D (0-149) mg/dL Cholesterol 173 (0-199) mg/dL LDL Cholesterol Direct 42 (0-129) mg/dL HDL Cholesterol 56 (30-70) mg/dL 25-OH Vitamin D Total (30.0-100.0) NG/ML Procalcitonin (0.19-0.49) NG/ML Vancomycin Trough (5.0-10.0) ug/mL Hep Bs Antigen (NEGATIVE) Hep Bs Antibody (NEGATIVE) Hep B Core IgM Ab (NEGATIVE) Hepatitis C Antibody (NEGATIVE) 08/31/17 08/31/17 08/30/17 Range/Units 00:29 00:04 20:41 WBC (4.8-10.8) K/uL RBC (3.80-5.20) Mil/uL Hgb (11.0-16.0) g/dL Hct (34.0-47.0) % MCV (81.0-99.0) fL MCH (27.0-31.0) pg MCHC (33.0-37.0) g/dL RDW (11.5-14.5) % Plt Count (130-400) K/uL MPV (7.2-11.7) fL Neut % (Auto) (50.0-75.0) % Lymph % (Auto) (20.0-40.0) % Jewell % (Auto) (0.0-10.0) % Eos % (Auto) (0.0-4.0) % Baso % (Auto) (0.0-2.0) % Neut # (Auto) (1.8-7.0) K/uL Lymph # (Auto) (1.0-4.3) K/uL Jewell # (Auto) (0.0-0.8) K/uL Eos # (Auto) (0.0-0.7) K/uL Baso # (Auto) (0.0-0.2) K/uL Neutrophils % (Manual) (50-75) % Band Neutrophils % (0-2) % Lymphocytes % (Manual) (20-40) % Monocytes % (Manual) (0-10) % Nucleated RBC % (0-0) % Differential Comment Platelet Estimate (NORMAL) Hypochromasia (manual) Ovalocytes APTT (21-34) SECONDS Puncture Site Drawn by rn pCO2 (35-45) mm/Hg pO2 19 L (80-100) mm/Hg HCO3 (21-28) mmol/L ABG pH (7.35-7.45) ABG Total CO2 (22-28) mmol/L ABG O2 Saturation (95-98) % ABG Base Excess (-2.0-3.0) mmol/L ABG Hemoglobin (11.7-17.4) g/dL ABG Carboxyhemoglobin (0.5-1.5) % POC ABG HHb (Measured) (0.0-5.0) % ABG Methemoglobin (0.0-3.0) % Christian Test Na VBG pH 7.20 L (7.32-7.43) VBG pCO2 42 (40-60) mmHg VBG HCO3 14.0 mmol/L VBG O2 Sat (Calc) 30.5 L (40-65) % VBG Base Excess -11.2 L (0.0-2.0) mmol/L A-a O2 Difference mm/Hg Respiratory Index Hgb O2 Saturation (95.0-98.0) % Vent Mode Mechanical Rate FiO2 % Tidal Volume PEEP Crit Value Called To Dr griffin Crit Value Called By Yaneth resendiz rt Crit Value Read Back Y Blood Gas Notified Time 30 Sodium 146 (132-148) mmol/L Potassium 5.1 (3.6-5.2) mmol/L Chloride 108 H (98-107) mmol/L Carbon Dioxide 12 L (22-30) mmol/L Anion Gap 31 H (10-20) BUN 91 H (7-17) mg/dL Creatinine 6.2 H (0.7-1.2) mg/dL Est GFR ( Amer) 8 Est GFR (Non-Af Amer) 7 POC Glucose (mg/dL) 223 H (65-110) mg/dL Random Glucose 333 H (65-105) mg/dL Calcium 8.4 L (8.6-10.4) mg/dl Magnesium 2.5 H (1.6-2.3) mg/dL Iron (37-170) ug/dL TIBC (250-450) ug/dL % Saturation (20-55) Ferritin ng/mL Total Bilirubin (0.2-1.3) mg/dL AST (14-36) U/L ALT (9-52) U/L Alkaline Phosphatase (38-126) U/L Troponin I 79.7000 H* (0.00-0.120) ng/mL Total Protein (6.3-8.3) g/dL Albumin (3.5-5.0) g/dL Globulin (2.2-3.9) gm/dL Albumin/Globulin Ratio (1.0-2.1) Triglycerides (0-149) mg/dL Cholesterol (0-199) mg/dL LDL Cholesterol Direct (0-129) mg/dL HDL Cholesterol (30-70) mg/dL 25-OH Vitamin D Total (30.0-100.0) NG/ML Procalcitonin (0.19-0.49) NG/ML Vancomycin Trough (5.0-10.0) ug/mL Hep Bs Antigen (NEGATIVE) Hep Bs Antibody (NEGATIVE) Hep B Core IgM Ab (NEGATIVE) Hepatitis C Antibody (NEGATIVE) 08/30/17 08/30/17 08/30/17 Range/Units 20:41 20:30 18:25 WBC 16.1 H (4.8-10.8) K/uL RBC 3.31 L (3.80-5.20) Mil/uL Hgb 9.2 L (11.0-16.0) g/dL Hct 29.2 L (34.0-47.0) % MCV 88.2 D (81.0-99.0) fL MCH 27.8 (27.0-31.0) pg MCHC 31.5 L (33.0-37.0) g/dL RDW 16.6 H (11.5-14.5) % Plt Count 127 L (130-400) K/uL MPV 9.2 (7.2-11.7) fL Neut % (Auto) (50.0-75.0) % Lymph % (Auto) (20.0-40.0) % Jewell % (Auto) (0.0-10.0) % Eos % (Auto) (0.0-4.0) % Baso % (Auto) (0.0-2.0) % Neut # (Auto) (1.8-7.0) K/uL Lymph # (Auto) (1.0-4.3) K/uL Jewell # (Auto) (0.0-0.8) K/uL Eos # (Auto) (0.0-0.7) K/uL Baso # (Auto) (0.0-0.2) K/uL Neutrophils % (Manual) (50-75) % Band Neutrophils % (0-2) % Lymphocytes % (Manual) (20-40) % Monocytes % (Manual) (0-10) % Nucleated RBC % (0-0) % Differential Comment Platelet Estimate (NORMAL) Hypochromasia (manual) Ovalocytes APTT 40 H D (21-34) SECONDS Puncture Site Rba pCO2 26 L (35-45) mm/Hg pO2 202 H (80-100) mm/Hg HCO3 10.7 L (21-28) mmol/L ABG pH 7.15 L* (7.35-7.45) ABG Total CO2 9.9 L (22-28) mmol/L ABG O2 Saturation 99.7 H (95-98) % ABG Base Excess -18.2 L (-2.0-3.0) mmol/L ABG Hemoglobin 11.4 L (11.7-17.4) g/dL ABG Carboxyhemoglobin 1.7 H (0.5-1.5) % POC ABG HHb (Measured) 0.3 (0.0-5.0) % ABG Methemoglobin 1.5 (0.0-3.0) % Christian Test Pos VBG pH (7.32-7.43) VBG pCO2 (40-60) mmHg VBG HCO3 mmol/L VBG O2 Sat (Calc) (40-65) % VBG Base Excess (0.0-2.0) mmol/L A-a O2 Difference 479.0 mm/Hg Respiratory Index 2.4 Hgb O2 Saturation 96.5 (95.0-98.0) % Vent Mode Prvc Mechanical Rate 14 FiO2 100.0 % Tidal Volume 500 PEEP 5 Crit Value Called To Dr griffin Crit Value Called By [facility] Crit Value Read Back Y Blood Gas Notified Time 2035 Sodium (132-148) mmol/L Potassium (3.6-5.2) mmol/L Chloride (98-107) mmol/L Carbon Dioxide (22-30) mmol/L Anion Gap (10-20) BUN (7-17) mg/dL Creatinine (0.7-1.2) mg/dL Est GFR ( Amer) Est GFR (Non-Af Amer) POC Glucose (mg/dL) (65-110) mg/dL Random Glucose (65-105) mg/dL Calcium (8.6-10.4) mg/dl Magnesium (1.6-2.3) mg/dL Iron (37-170) ug/dL TIBC (250-450) ug/dL % Saturation (20-55) Ferritin ng/mL Total Bilirubin (0.2-1.3) mg/dL AST (14-36) U/L ALT (9-52) U/L Alkaline Phosphatase (38-126) U/L Troponin I (0.00-0.120) ng/mL Total Protein (6.3-8.3) g/dL Albumin (3.5-5.0) g/dL Globulin (2.2-3.9) gm/dL Albumin/Globulin Ratio (1.0-2.1) Triglycerides (0-149) mg/dL Cholesterol (0-199) mg/dL LDL Cholesterol Direct (0-129) mg/dL HDL Cholesterol (30-70) mg/dL 25-OH Vitamin D Total (30.0-100.0) NG/ML Procalcitonin (0.19-0.49) NG/ML Vancomycin Trough (5.0-10.0) ug/mL Hep Bs Antigen (NEGATIVE) Hep Bs Antibody (NEGATIVE) Hep B Core IgM Ab (NEGATIVE) Hepatitis C Antibody (NEGATIVE) 08/30/17 08/30/17 08/30/17 Range/Units 17:41 16:13 12:19 WBC (4.8-10.8) K/uL RBC (3.80-5.20) Mil/uL Hgb (11.0-16.0) g/dL Hct (34.0-47.0) % MCV (81.0-99.0) fL MCH (27.0-31.0) pg MCHC (33.0-37.0) g/dL RDW (11.5-14.5) % Plt Count (130-400) K/uL MPV (7.2-11.7) fL Neut % (Auto) (50.0-75.0) % Lymph % (Auto) (20.0-40.0) % Jewell % (Auto) (0.0-10.0) % Eos % (Auto) (0.0-4.0) % Baso % (Auto) (0.0-2.0) % Neut # (Auto) (1.8-7.0) K/uL Lymph # (Auto) (1.0-4.3) K/uL Jewell # (Auto) (0.0-0.8) K/uL Eos # (Auto) (0.0-0.7) K/uL Baso # (Auto) (0.0-0.2) K/uL Neutrophils % (Manual) (50-75) % Band Neutrophils % (0-2) % Lymphocytes % (Manual) (20-40) % Monocytes % (Manual) (0-10) % Nucleated RBC % (0-0) % Differential Comment Platelet Estimate (NORMAL) Hypochromasia (manual) Ovalocytes APTT (21-34) SECONDS Puncture Site pCO2 (35-45) mm/Hg pO2 (80-100) mm/Hg HCO3 (21-28) mmol/L ABG pH (7.35-7.45) ABG Total CO2 (22-28) mmol/L ABG O2 Saturation (95-98) % ABG Base Excess (-2.0-3.0) mmol/L ABG Hemoglobin (11.7-17.4) g/dL ABG Carboxyhemoglobin (0.5-1.5) % POC ABG HHb (Measured) (0.0-5.0) % ABG Methemoglobin (0.0-3.0) % Christian Test VBG pH (7.32-7.43) VBG pCO2 (40-60) mmHg VBG HCO3 mmol/L VBG O2 Sat (Calc) (40-65) % VBG Base Excess (0.0-2.0) mmol/L A-a O2 Difference mm/Hg Respiratory Index Hgb O2 Saturation (95.0-98.0) % Vent Mode Mechanical Rate FiO2 % Tidal Volume PEEP Crit Value Called To Crit Value Called By Crit Value Read Back Blood Gas Notified Time Sodium (132-148) mmol/L Potassium (3.6-5.2) mmol/L Chloride (98-107) mmol/L Carbon Dioxide (22-30) mmol/L Anion Gap (10-20) BUN (7-17) mg/dL Creatinine (0.7-1.2) mg/dL Est GFR ( Amer) Est GFR (Non-Af Amer) POC Glucose (mg/dL) 384 H (65-110) mg/dL Random Glucose (65-105) mg/dL Calcium (8.6-10.4) mg/dl Magnesium (1.6-2.3) mg/dL Iron (37-170) ug/dL TIBC (250-450) ug/dL % Saturation (20-55) Ferritin ng/mL Total Bilirubin (0.2-1.3) mg/dL AST (14-36) U/L ALT (9-52) U/L Alkaline Phosphatase (38-126) U/L Troponin I (0.00-0.120) ng/mL Total Protein (6.3-8.3) g/dL Albumin (3.5-5.0) g/dL Globulin (2.2-3.9) gm/dL Albumin/Globulin Ratio (1.0-2.1) Triglycerides (0-149) mg/dL Cholesterol (0-199) mg/dL LDL Cholesterol Direct (0-129) mg/dL HDL Cholesterol (30-70) mg/dL 25-OH Vitamin D Total (30.0-100.0) NG/ML Procalcitonin (0.19-0.49) NG/ML Vancomycin Trough < 5.0 L (5.0-10.0) ug/mL Hep Bs Antigen (NEGATIVE) Hep Bs Antibody Negative (NEGATIVE) Hep B Core IgM Ab (NEGATIVE) Hepatitis C Antibody (NEGATIVE) 08/30/17 08/30/17 08/30/17 Range/Units 12:19 12:19 12:19 WBC (4.8-10.8) K/uL RBC (3.80-5.20) Mil/uL Hgb (11.0-16.0) g/dL Hct (34.0-47.0) % MCV (81.0-99.0) fL MCH (27.0-31.0) pg MCHC (33.0-37.0) g/dL RDW (11.5-14.5) % Plt Count (130-400) K/uL MPV (7.2-11.7) fL Neut % (Auto) (50.0-75.0) % Lymph % (Auto) (20.0-40.0) % Jewell % (Auto) (0.0-10.0) % Eos % (Auto) (0.0-4.0) % Baso % (Auto) (0.0-2.0) % Neut # (Auto) (1.8-7.0) K/uL Lymph # (Auto) (1.0-4.3) K/uL Jewell # (Auto) (0.0-0.8) K/uL Eos # (Auto) (0.0-0.7) K/uL Baso # (Auto) (0.0-0.2) K/uL Neutrophils % (Manual) (50-75) % Band Neutrophils % (0-2) % Lymphocytes % (Manual) (20-40) % Monocytes % (Manual) (0-10) % Nucleated RBC % (0-0) % Differential Comment Platelet Estimate (NORMAL) Hypochromasia (manual) Ovalocytes APTT 31 (21-34) SECONDS Puncture Site pCO2 (35-45) mm/Hg pO2 (80-100) mm/Hg HCO3 (21-28) mmol/L ABG pH (7.35-7.45) ABG Total CO2 (22-28) mmol/L ABG O2 Saturation (95-98) % ABG Base Excess (-2.0-3.0) mmol/L ABG Hemoglobin (11.7-17.4) g/dL ABG Carboxyhemoglobin (0.5-1.5) % POC ABG HHb (Measured) (0.0-5.0) % ABG Methemoglobin (0.0-3.0) % Christian Test VBG pH (7.32-7.43) VBG pCO2 (40-60) mmHg VBG HCO3 mmol/L VBG O2 Sat (Calc) (40-65) % VBG Base Excess (0.0-2.0) mmol/L A-a O2 Difference mm/Hg Respiratory Index Hgb O2 Saturation (95.0-98.0) % Vent Mode Mechanical Rate FiO2 % Tidal Volume PEEP Crit Value Called To Crit Value Called By Crit Value Read Back Blood Gas Notified Time Sodium (132-148) mmol/L Potassium (3.6-5.2) mmol/L Chloride (98-107) mmol/L Carbon Dioxide (22-30) mmol/L Anion Gap (10-20) BUN (7-17) mg/dL Creatinine (0.7-1.2) mg/dL Est GFR ( Amer) Est GFR (Non-Af Amer) POC Glucose (mg/dL) (65-110) mg/dL Random Glucose (65-105) mg/dL Calcium (8.6-10.4) mg/dl Magnesium (1.6-2.3) mg/dL Iron 18 L (37-170) ug/dL TIBC 196 L (250-450) ug/dL % Saturation 9 L (20-55) Ferritin 195.0 ng/mL Total Bilirubin (0.2-1.3) mg/dL AST (14-36) U/L ALT (9-52) U/L Alkaline Phosphatase (38-126) U/L Troponin I (0.00-0.120) ng/mL Total Protein (6.3-8.3) g/dL Albumin (3.5-5.0) g/dL Globulin (2.2-3.9) gm/dL Albumin/Globulin Ratio (1.0-2.1) Triglycerides (0-149) mg/dL Cholesterol (0-199) mg/dL LDL Cholesterol Direct (0-129) mg/dL HDL Cholesterol (30-70) mg/dL 25-OH Vitamin D Total 27.1 L (30.0-100.0) NG/ML Procalcitonin (0.19-0.49) NG/ML Vancomycin Trough (5.0-10.0) ug/mL Hep Bs Antigen Negative (NEGATIVE) Hep Bs Antibody (NEGATIVE) Hep B Core IgM Ab Negative (NEGATIVE) Hepatitis C Antibody Negative (NEGATIVE) 08/30/17 Range/Units 08:34 WBC (4.8-10.8) K/uL RBC (3.80-5.20) Mil/uL Hgb (11.0-16.0) g/dL Hct (34.0-47.0) % MCV (81.0-99.0) fL MCH (27.0-31.0) pg MCHC (33.0-37.0) g/dL RDW (11.5-14.5) % Plt Count (130-400) K/uL MPV (7.2-11.7) fL Neut % (Auto) (50.0-75.0) % Lymph % (Auto) (20.0-40.0) % Jewell % (Auto) (0.0-10.0) % Eos % (Auto) (0.0-4.0) % Baso % (Auto) (0.0-2.0) % Neut # (Auto) (1.8-7.0) K/uL Lymph # (Auto) (1.0-4.3) K/uL Jewell # (Auto) (0.0-0.8) K/uL Eos # (Auto) (0.0-0.7) K/uL Baso # (Auto) (0.0-0.2) K/uL Neutrophils % (Manual) (50-75) % Band Neutrophils % (0-2) % Lymphocytes % (Manual) (20-40) % Monocytes % (Manual) (0-10) % Nucleated RBC % (0-0) % Differential Comment Platelet Estimate (NORMAL) Hypochromasia (manual) Ovalocytes APTT (21-34) SECONDS Puncture Site pCO2 (35-45) mm/Hg pO2 (80-100) mm/Hg HCO3 (21-28) mmol/L ABG pH (7.35-7.45) ABG Total CO2 (22-28) mmol/L ABG O2 Saturation (95-98) % ABG Base Excess (-2.0-3.0) mmol/L ABG Hemoglobin (11.7-17.4) g/dL ABG Carboxyhemoglobin (0.5-1.5) % POC ABG HHb (Measured) (0.0-5.0) % ABG Methemoglobin (0.0-3.0) % Christian Test VBG pH (7.32-7.43) VBG pCO2 (40-60) mmHg VBG HCO3 mmol/L VBG O2 Sat (Calc) (40-65) % VBG Base Excess (0.0-2.0) mmol/L A-a O2 Difference mm/Hg Respiratory Index Hgb O2 Saturation (95.0-98.0) % Vent Mode Mechanical Rate FiO2 % Tidal Volume PEEP Crit Value Called To Crit Value Called By Crit Value Read Back Blood Gas Notified Time Sodium (132-148) mmol/L Potassium (3.6-5.2) mmol/L Chloride (98-107) mmol/L Carbon Dioxide (22-30) mmol/L Anion Gap (10-20) BUN (7-17) mg/dL Creatinine (0.7-1.2) mg/dL Est GFR ( Amer) Est GFR (Non-Af Amer) POC Glucose (mg/dL) (65-110) mg/dL Random Glucose (65-105) mg/dL Calcium (8.6-10.4) mg/dl Magnesium (1.6-2.3) mg/dL Iron (37-170) ug/dL TIBC (250-450) ug/dL % Saturation (20-55) Ferritin ng/mL Total Bilirubin (0.2-1.3) mg/dL AST (14-36) U/L ALT (9-52) U/L Alkaline Phosphatase (38-126) U/L Troponin I (0.00-0.120) ng/mL Total Protein (6.3-8.3) g/dL Albumin (3.5-5.0) g/dL Globulin (2.2-3.9) gm/dL Albumin/Globulin Ratio (1.0-2.1) Triglycerides (0-149) mg/dL Cholesterol (0-199) mg/dL LDL Cholesterol Direct (0-129) mg/dL HDL Cholesterol (30-70) mg/dL 25-OH Vitamin D Total (30.0-100.0) NG/ML Procalcitonin 54.73 H (0.19-0.49) NG/ML Vancomycin Trough (5.0-10.0) ug/mL Hep Bs Antigen (NEGATIVE) Hep Bs Antibody (NEGATIVE) Hep B Core IgM Ab (NEGATIVE) Hepatitis C Antibody (NEGATIVE) Laboratory Results - last 24 hr 08/30/17 08/30/17 08/30/17 08:34 12:19 12:19 WBC RBC Hgb Hct MCV MCH MCHC RDW Plt Count MPV Neut % (Auto) Lymph % (Auto) Jewell % (Auto) Eos % (Auto) Baso % (Auto) Neut # (Auto) Lymph # (Auto) Jewell # (Auto) Eos # (Auto) Baso # (Auto) Neutrophils % (Manual) Band Neutrophils % Lymphocytes % (Manual) Monocytes % (Manual) Nucleated RBC % Differential Comment Platelet Estimate Hypochromasia (manual) Ovalocytes APTT 31 Puncture Site pCO2 pO2 HCO3 ABG pH ABG Total CO2 ABG O2 Saturation ABG Base Excess ABG Hemoglobin ABG Carboxyhemoglobin POC ABG HHb (Measured) ABG Methemoglobin Christian Test VBG pH VBG pCO2 VBG HCO3 VBG O2 Sat (Calc) VBG Base Excess A-a O2 Difference Respiratory Index Hgb O2 Saturation Vent Mode Mechanical Rate FiO2 Tidal Volume PEEP Crit Value Called To Crit Value Called By Crit Value Read Back Blood Gas Notified Time Sodium Potassium Chloride Carbon Dioxide Anion Gap BUN Creatinine Est GFR ( Amer) Est GFR (Non-Af Amer) POC Glucose (mg/dL) Random Glucose Calcium Magnesium Iron 18 L TIBC 196 L % Saturation 9 L Ferritin Total Bilirubin AST ALT Alkaline Phosphatase Troponin I Total Protein Albumin Globulin Albumin/Globulin Ratio Triglycerides Cholesterol LDL Cholesterol Direct HDL Cholesterol 25-OH Vitamin D Total 27.1 L Procalcitonin 54.73 H Vancomycin Trough Hep Bs Antigen Hep Bs Antibody Hep B Core IgM Ab Hepatitis C Antibody 08/30/17 08/30/17 08/30/17 12:19 12:19 16:13 WBC RBC Hgb Hct MCV MCH MCHC RDW Plt Count MPV Neut % (Auto) Lymph % (Auto) Jewell % (Auto) Eos % (Auto) Baso % (Auto) Neut # (Auto) Lymph # (Auto) Jewell # (Auto) Eos # (Auto) Baso # (Auto) Neutrophils % (Manual) Band Neutrophils % Lymphocytes % (Manual) Monocytes % (Manual) Nucleated RBC % Differential Comment Platelet Estimate Hypochromasia (manual) Ovalocytes APTT Puncture Site pCO2 pO2 HCO3 ABG pH ABG Total CO2 ABG O2 Saturation ABG Base Excess ABG Hemoglobin ABG Carboxyhemoglobin POC ABG HHb (Measured) ABG Methemoglobin Christian Test VBG pH VBG pCO2 VBG HCO3 VBG O2 Sat (Calc) VBG Base Excess A-a O2 Difference Respiratory Index Hgb O2 Saturation Vent Mode Mechanical Rate FiO2 Tidal Volume PEEP Crit Value Called To Crit Value Called By Crit Value Read Back Blood Gas Notified Time Sodium Potassium Chloride Carbon Dioxide Anion Gap BUN Creatinine Est GFR ( Amer) Est GFR (Non-Af Amer) POC Glucose (mg/dL) 384 H Random Glucose Calcium Magnesium Iron TIBC % Saturation Ferritin 195.0 Total Bilirubin AST ALT Alkaline Phosphatase Troponin I Total Protein Albumin Globulin Albumin/Globulin Ratio Triglycerides Cholesterol LDL Cholesterol Direct HDL Cholesterol 25-OH Vitamin D Total Procalcitonin Vancomycin Trough Hep Bs Antigen Negative Hep Bs Antibody Negative Hep B Core IgM Ab Negative Hepatitis C Antibody Negative 08/30/17 08/30/17 08/30/17 17:41 18:25 20:30 WBC RBC Hgb Hct MCV MCH MCHC RDW Plt Count MPV Neut % (Auto) Lymph % (Auto) Jewell % (Auto) Eos % (Auto) Baso % (Auto) Neut # (Auto) Lymph # (Auto) Jewell # (Auto) Eos # (Auto) Baso # (Auto) Neutrophils % (Manual) Band Neutrophils % Lymphocytes % (Manual) Monocytes % (Manual) Nucleated RBC % Differential Comment Platelet Estimate Hypochromasia (manual) Ovalocytes APTT 40 H D Puncture Site Rba pCO2 26 L pO2 202 H HCO3 10.7 L ABG pH 7.15 L* ABG Total CO2 9.9 L ABG O2 Saturation 99.7 H ABG Base Excess -18.2 L ABG Hemoglobin 11.4 L ABG Carboxyhemoglobin 1.7 H POC ABG HHb (Measured) 0.3 ABG Methemoglobin 1.5 Christian Test Pos VBG pH VBG pCO2 VBG HCO3 VBG O2 Sat (Calc) VBG Base Excess A-a O2 Difference 479.0 Respiratory Index 2.4 Hgb O2 Saturation 96.5 Vent Mode Prvc Mechanical Rate 14 FiO2 100.0 Tidal Volume 500 PEEP 5 Crit Value Called To Dr griffin Crit Value Called By [facility] Crit Value Read Back Y Blood Gas Notified Time 2035 Sodium Potassium Chloride Carbon Dioxide Anion Gap BUN Creatinine Est GFR ( Amer) Est GFR (Non-Af Amer) POC Glucose (mg/dL) Random Glucose Calcium Magnesium Iron TIBC % Saturation Ferritin Total Bilirubin AST ALT Alkaline Phosphatase Troponin I Total Protein Albumin Globulin Albumin/Globulin Ratio Triglycerides Cholesterol LDL Cholesterol Direct HDL Cholesterol 25-OH Vitamin D Total Procalcitonin Vancomycin Trough < 5.0 L Hep Bs Antigen Hep Bs Antibody Hep B Core IgM Ab Hepatitis C Antibody 08/30/17 08/30/17 08/31/17 20:41 20:41 00:04 WBC 16.1 H RBC 3.31 L Hgb 9.2 L Hct 29.2 L MCV 88.2 D MCH 27.8 MCHC 31.5 L RDW 16.6 H Plt Count 127 L MPV 9.2 Neut % (Auto) Lymph % (Auto) Jewell % (Auto) Eos % (Auto) Baso % (Auto) Neut # (Auto) Lymph # (Auto) Jewell # (Auto) Eos # (Auto) Baso # (Auto) Neutrophils % (Manual) Band Neutrophils % Lymphocytes % (Manual) Monocytes % (Manual) Nucleated RBC % Differential Comment Platelet Estimate Hypochromasia (manual) Ovalocytes APTT Puncture Site pCO2 pO2 HCO3 ABG pH ABG Total CO2 ABG O2 Saturation ABG Base Excess ABG Hemoglobin ABG Carboxyhemoglobin POC ABG HHb (Measured) ABG Methemoglobin Christian Test VBG pH VBG pCO2 VBG HCO3 VBG O2 Sat (Calc) VBG Base Excess A-a O2 Difference Respiratory Index Hgb O2 Saturation Vent Mode Mechanical Rate FiO2 Tidal Volume PEEP Crit Value Called To Crit Value Called By Crit Value Read Back Blood Gas Notified Time Sodium 146 Potassium 5.1 Chloride 108 H Carbon Dioxide 12 L Anion Gap 31 H BUN 91 H Creatinine 6.2 H Est GFR ( Amer) 8 Est GFR (Non-Af Amer) 7 POC Glucose (mg/dL) 223 H Random Glucose 333 H Calcium 8.4 L Magnesium 2.5 H Iron TIBC % Saturation Ferritin Total Bilirubin AST ALT Alkaline Phosphatase Troponin I 79.7000 H* Total Protein Albumin Globulin Albumin/Globulin Ratio Triglycerides Cholesterol LDL Cholesterol Direct HDL Cholesterol 25-OH Vitamin D Total Procalcitonin Vancomycin Trough Hep Bs Antigen Hep Bs Antibody Hep B Core IgM Ab Hepatitis C Antibody 08/31/17 08/31/17 08/31/17 00:29 03:18 03:18 WBC 14.6 H RBC 3.31 L Hgb 9.2 L Hct 28.4 L MCV 85.7 D MCH 27.7 MCHC 32.3 L RDW 16.4 H Plt Count 132 MPV 8.7 Neut % (Auto) 89.2 H Lymph % (Auto) 6.7 L Jewell % (Auto) 3.9 Eos % (Auto) 0.0 Baso % (Auto) 0.2 Neut # (Auto) 13.1 H Lymph # (Auto) 1.0 Jewell # (Auto) 0.6 Eos # (Auto) 0.0 Baso # (Auto) 0.0 Neutrophils % (Manual) 89 H Band Neutrophils % 6 H Lymphocytes % (Manual) 3 L Monocytes % (Manual) 2 Nucleated RBC % 6 H Differential Comment Platelet Estimate Normal Hypochromasia (manual) Slight Ovalocytes Slight APTT Puncture Site Drawn by rn pCO2 pO2 19 L HCO3 ABG pH ABG Total CO2 ABG O2 Saturation ABG Base Excess ABG Hemoglobin ABG Carboxyhemoglobin POC ABG HHb (Measured) ABG Methemoglobin Christian Test Na VBG pH 7.20 L VBG pCO2 42 VBG HCO3 14.0 VBG O2 Sat (Calc) 30.5 L VBG Base Excess -11.2 L A-a O2 Difference Respiratory Index Hgb O2 Saturation Vent Mode Mechanical Rate FiO2 Tidal Volume PEEP Crit Value Called To Dr griffin Crit Value Called By Yaneth resendiz rt Crit Value Read Back Y Blood Gas Notified Time 30 Sodium 150 H Potassium 4.7 Chloride 108 H Carbon Dioxide 16 L Anion Gap 32 H BUN 93 H Creatinine 6.2 H Est GFR ( Amer) 8 Est GFR (Non-Af Amer) 7 POC Glucose (mg/dL) Random Glucose 125 H Calcium 8.1 L Magnesium Iron TIBC % Saturation Ferritin Total Bilirubin 2.0 H AST 254 H D ALT 108 H D Alkaline Phosphatase 77 Troponin I Total Protein 5.8 L Albumin 2.9 L Globulin 2.9 Albumin/Globulin Ratio 1.0 Triglycerides Cholesterol LDL Cholesterol Direct HDL Cholesterol 25-OH Vitamin D Total Procalcitonin Vancomycin Trough Hep Bs Antigen Hep Bs Antibody Hep B Core IgM Ab Hepatitis C Antibody 08/31/17 08/31/17 08/31/17 03:18 03:20 05:18 WBC RBC Hgb Hct MCV MCH MCHC RDW Plt Count MPV Neut % (Auto) Lymph % (Auto) Jewell % (Auto) Eos % (Auto) Baso % (Auto) Neut # (Auto) Lymph # (Auto) Jewell # (Auto) Eos # (Auto) Baso # (Auto) Neutrophils % (Manual) Band Neutrophils % Lymphocytes % (Manual) Monocytes % (Manual) Nucleated RBC % Differential Comment Platelet Estimate Hypochromasia (manual) Ovalocytes APTT 126 H* D Puncture Site Rb pCO2 21 L pO2 360 H HCO3 14.6 L ABG pH 7.33 L ABG Total CO2 11.7 L ABG O2 Saturation 99.7 H ABG Base Excess -13.2 L ABG Hemoglobin 9.2 L ABG Carboxyhemoglobin 1.4 POC ABG HHb (Measured) 0.3 ABG Methemoglobin 1.3 Christian Test Na VBG pH VBG pCO2 VBG HCO3 VBG O2 Sat (Calc) VBG Base Excess A-a O2 Difference 327.0 Respiratory Index 0.9 Hgb O2 Saturation 96.9 Vent Mode Prvc Mechanical Rate 24 FiO2 100.0 Tidal Volume 550 PEEP 5 Crit Value Called To Crit Value Called By Crit Value Read Back Blood Gas Notified Time Sodium Potassium Chloride Carbon Dioxide Anion Gap BUN Creatinine Est GFR ( Amer) Est GFR (Non-Af Amer) POC Glucose (mg/dL) Random Glucose Calcium Magnesium Iron TIBC % Saturation Ferritin Total Bilirubin AST ALT Alkaline Phosphatase Troponin I Total Protein Albumin Globulin Albumin/Globulin Ratio Triglycerides 82 D Cholesterol 173 LDL Cholesterol Direct 42 HDL Cholesterol 56 25-OH Vitamin D Total Procalcitonin Vancomycin Trough Hep Bs Antigen Hep Bs Antibody Hep B Core IgM Ab Hepatitis C Antibody 08/31/17 05:24 WBC RBC Hgb Hct MCV MCH MCHC RDW Plt Count MPV Neut % (Auto) Lymph % (Auto) Jewell % (Auto) Eos % (Auto) Baso % (Auto) Neut # (Auto) Lymph # (Auto) Jewell # (Auto) Eos # (Auto) Baso # (Auto) Neutrophils % (Manual) Band Neutrophils % Lymphocytes % (Manual) Monocytes % (Manual) Nucleated RBC % Differential Comment Platelet Estimate Hypochromasia (manual) Ovalocytes APTT Puncture Site pCO2 pO2 HCO3 ABG pH ABG Total CO2 ABG O2 Saturation ABG Base Excess ABG Hemoglobin ABG Carboxyhemoglobin POC ABG HHb (Measured) ABG Methemoglobin Christian Test VBG pH VBG pCO2 VBG HCO3 VBG O2 Sat (Calc) VBG Base Excess A-a O2 Difference Respiratory Index Hgb O2 Saturation Vent Mode Mechanical Rate FiO2 Tidal Volume PEEP Crit Value Called To Crit Value Called By Crit Value Read Back Blood Gas Notified Time Sodium Potassium Chloride Carbon Dioxide Anion Gap BUN Creatinine Est GFR ( Amer) Est GFR (Non-Af Amer) POC Glucose (mg/dL) 118 H Random Glucose Calcium Magnesium Iron TIBC % Saturation Ferritin Total Bilirubin AST ALT Alkaline Phosphatase Troponin I Total Protein Albumin Globulin Albumin/Globulin Ratio Triglycerides Cholesterol LDL Cholesterol Direct HDL Cholesterol 25-OH Vitamin D Total Procalcitonin Vancomycin Trough Hep Bs Antigen Hep Bs Antibody Hep B Core IgM Ab Hepatitis C Antibody Fingerstick Blood Sugar Results: 118 Critical Care Progress Note - Ventilator Checklist Daily Sedation Vacation: Yes Daily Assessment of Readiness to Wean: Yes Daily Spontaneous Breathing Trial: Yes PUD Prophalyxis: Yes DVT Prophylaxis: Yes Oral Care with Chlorhexidine Gluconate {CHG}: Yes - Nutrition Nutrition: Nutrition Category Date Time Status NPO Diet [DIET] Diets 08/30/17 Breakfast Active Assessment/Plan - Assessment and Plan (Free Text) Assessment: 76 y/o female with PMH CKD stage V with left arm AV fistula, Diastolic CHF/ NSTEMI, DM, HTN, hypercholesterolemia, h/o TIA, h/o colon CA who presents to [facility] with altered mental status. -NSTEMI: will benefit from DUal antiplatelet therapy and IV heprain, cardiology input -Shock: suspect 2nd aspiration/cardiogenic +/- acidosis: infuse bicarb ggt to keep bicarb near 18, infuse norepi to keep MAP >65, echo pending -sepsis: continue broad spectrum abx, serial lactic, r/o sepsis/aspiratoin: currently on moxi, check QTC, start aztreonam + vanco per level and flagyl, shepherd culture -Acute on chronic systolic heart failure: ECHO shows EF 30%, will benfit from norepi to keep MAP >65 and monitor SCVO2 to keep >70 -Acute NSTEMI: Cardiology consult, Dr Houston, possible PCI -Hyperglycemia and uncontrolled DM, lantus + ISS/aspart continue Lantus and monitor sugar -Anemia of chronic disease, continue epogen, check fecal occult blood -DVT ppx on IV heparin -PUD ppx pepcid cc time 45 minutes - Date & Time Date: 08/31/17 Time: 11:47
[2017-08-31] MEDS ORDERED: Sodium Bicarbonate 8.4% 150 MEQ in Dextrose 5% In Water 1,000 ML IV SCH ×2 (11:45→12:30)
[2017-08-31] MEDS ORDERED: (Novolog) Insulin Aspart, Recombinant 100 u/ml 10 ml vial SC SCH (12:00)
[2017-08-31] MEDS: Aztreonam 1 GM in Sodium Chloride 0.9% 100 ML IVPB SCH (12:30)
--- NOTE | 2017-08-31 12:38 | PCM.SURG1 ---
Surgeon's Initial Post Op Note - Surgeon's Notes Surgeon: Dr Quinonez [employer] Supervisor: Dr Means PGY3 Type of Anesthesia: Local Pre-Operative Diagnosis: renal failure. thrombosed left AV shunt Operative Findings: patent LIJ Post-Operative Diagnosis: as above Operation Performed: attempted right femoral shiley - unable to pass guidewire. LIJ shiley insertion with US guidance. placement confirmed with CXR Specimen/Specimens Removed: none Estimated Blood Loss: EBL {In ML}: 20 Blood Products Given: N/A Drains Used: No Drains Post-Op Condition: Fair Date of Surgery/Procedure: 08/31/17 Time of Surgery/Procedure: 12:38
[2017-08-31] MEDS: metroNIDAZOLE IV 500 mg/100 ml 500 MG/100 ML BAG IVPB SCH ×2 (13:46→22:43)
[2017-08-31] MEDS ORDERED: Ergocalciferol 50,000 Intl Units Cap PO SCH (14:45)
--- NOTE | 2017-08-31 15:35 | CP.PCM.PN ---
Subjective - Date & Time of Evaluation Date of Evaluation: 08/31/17 Time of Evaluation: 15:33 - Subjective Subjective: Nephrology Follow up Assessment: critical CKD stage 5 (N18.5) with hyperkalemia, acidosis ? uremia pulm edema, CHF, NSTEMI, pleural effusions, pneumonia AMS, hyperglycemia Cardiac arrest Diabetic chronic Kidney Disease (E11.22) Hypertensive Chronic Kidney Disease (I12.9) Anemia (D64.9), Hyperphosphatemia (E83.39), Secondary Hyperparathyroidism (E21.1 ), HTN (I12.9), vit D insuff, hx of colon CA, TIAs Plan unable to dialyze yesterday due to clotted AVG p cardiac arrest. Temp line placed today HD today on iron supplements, MVI, epogen with HD, phos binders and Vit D f/u cardiology plans d/c hco3 gtt hd should correct S: seen and examined, intubated Physical Examination: General Appearance: intubated and sedated Vitals reviewed and noted as below Head; Atraumatic, normocephalic ENT: unable EYES: anicteric Neck; supple no lymphadenopathy, no thyromegaly or bruit Lungs: Normal respiratory rate/effort. Breath sounds bilateral decreased at bases with crackles Heart: Normal rate. s1s2 normal. No rub or gallop. Extremities: no edema. No varicose veins. chronic hyperpigmented changes in legs Neurological: Patient is lethargic, mostly unresponsive, non communicative Skin: Warm and dry. Normal turgor. No rash. Palpitation: Normal elasticity for age Abdomen: Abdomen is soft. Bowel sounds +. There is no abdominal tenderness, no guarding/rigidity no organomegaly Psych: unable MSK: no joint tenderness or swelling. Digits and nails normal, no deformity : kidney or bladder not palpable Access: Left AVG with no bruit Labs/imaging reviewed. Past medical history, past surgical history, family history, social history, allergy reviewed and noted as below Family hx: no hx of CKD. Rest non-contributory Objective - Vital Signs/Intake and Output Vital Signs (last 24 hours): Temp Pulse Resp BP Pulse Ox 97.6 F 72 24 137/53 L 100 08/31/17 04:00 08/31/17 13:58 08/31/17 13:58 08/31/17 13:58 08/31/17 12:50 Intake and Output: 08/31/17 08/31/17 06:59 18:59 Intake Total 1729.1 1561.5 Output Total 0 Balance 1729.1 1561.5 - Medications Medications: Current Medications Aspirin (Aspirin Chewable) 81 mg PO DAILY [facility] Last Admin: 08/31/17 09:40 Dose: 81 mg Calcium Acetate (Phoslo) 667 mg PO TID [facility] Last Admin: 08/31/17 13:51 Dose: 667 mg Epoetin Alan (Procrit) 4,000 unit IV MWF [facility] Last Admin: 08/30/17 23:34 Dose: Not Given Ergocalciferol (Drisdol 50,000 Intl Units Cap) 1 cap PO Q7D [facility] Last Admin: 08/31/17 13:51 Dose: 1 cap Ferrous Gluconate (Fergon) 324 mg PO TID [facility] Last Admin: 08/31/17 13:51 Dose: 324 mg Heparin Sodium/Sodium Chloride (Heparin 96991 Units/250ml 1/2 Normal Saline) 25 ,000 units in 250 mls @ 7.076 mls/hr IV .Q24H PRN; Protocol; 12 UNITS/KG/HR PRN Reason: PROTOCOL Last Admin: 08/31/17 05:11 Dose: 17 units/kg/hr, 10.024 mls/hr Moxifloxacin HCl (Avelox Iv 400mg/250ml Ns) 400 mg in 250 mls @ 167 mls/hr IVPB Q24H [facility] Last Admin: 08/30/17 23:30 Dose: 167 mls/hr Norepinephrine Bitartrate 8 mg (/ Sodium Chloride) 258 mls @ 7.74 mls/hr IV .Q24H PRN; Protocol; 4 MCG/MIN PRN Reason: TITRATE PER MD ORDER Last Admin: 08/31/17 12:50 Dose: 10 mcg/min, 19.35 mls/hr Amiodarone HCl 900 mg/ (Dextrose) 500 mls @ 16.66 mls/hr IV .Q24H [facility]; 0.5 MG/ MIN PRN Reason: Protocol Stop: 08/31/17 21:00 Last Admin: 08/31/17 03:00 Dose: 16.66 mls/hr Sodium Bicarbonate 150 meq/ (Dextrose) 1,150 mls @ 75 mls/hr IV .[id number] [facility] Aztreonam 1 gm/ Sodium (Chloride) 100 mls @ 100 mls/hr IVPB Q12H [facility] Last Admin: 08/31/17 12:30 Dose: 100 mls/hr Metronidazole (Flagyl) 500 mg in 100 mls @ 100 mls/hr IVPB Q8H [facility] Last Admin: 08/31/17 13:46 Dose: 100 mls/hr Insulin Aspart (Novolog) 0 unit SC Q6 [facility] PRN Reason: Protocol Last Admin: 08/31/17 12:11 Dose: Not Given Insulin Glargine (Lantus) 15 unit SC [facility] Last Admin: 08/30/17 23:38 Dose: 15 u Nitroglycerin (Nitrostat Sl Tab) 0.4 mg SL Q5M PRN PRN Reason: Other Pantoprazole Sodium (Protonix Ec Tab) 40 mg PO DAILY [facility] Rosuvastatin Calcium (Crestor) 5 mg PO [facility] Last Admin: 08/30/17 01:29 Dose: 5 mg Vitamin B Complex/Vit C/Folic Acid (Nephro-Kamron) 1 tab PO 0800 [facility] Last Admin: 08/31/17 08:30 Dose: 1 tab - Labs Labs: 08/31/17 03:18 08/31/17 03:18 PT 14.6 SECONDS (9.7-12.2) H 08/30/17 02:17 INR 1.3 08/30/17 02:17 APTT 88 SECONDS (21-34) H D 08/31/17 11:44
[2017-08-31] MEDS ORDERED: Digoxin 500 mcg/2ml (0.5 mg/2ml) Inj IVP ONE (20:04)
[2017-08-31] MEDS ORDERED: Vasopressin 40 UNITS in Dextrose 5% In Water 40 ML IV SCH (20:30)
[2017-08-31] MEDS ORDERED: Vancomycin 1 gm/NS 200 ml 1 GM/200 ML BAG IVPB STA (20:53)
[2017-08-31] MEDS ORDERED: Vancomycin 1 gm/NS 200 ml 1 GM/200 ML BAG IVPB SCH (21:00)
[2017-08-31 21:17] LABS: ARTERIAL BLOOD GAS HCO3 27.4 mmol/L (21-28); ARTERIAL BLOOD GAS O2 SAT 100.1 % (95-98); ARTERIAL BLOOD GAS PCO2 22 mm/Hg (35-45); ARTERIAL BLOOD GAS PH 7.62 (7.35-7.45); ARTERIAL BLOOD GAS PO2 162 mm/Hg (80-100); ARTERIAL BLOOD GAS TCO2 23.3 mmol/L (22-28)
[2017-08-31 21:21] LABS: BASO % 0.2 % (0.0-2.0); EOS # 0.1 K/uL (0.0-0.7); EOS % 0.4 % (0.0-4.0); HEMOGLOBIN 8.1 g/dL (11.0-16.0); LYMPH # 1.4 K/uL (1.0-4.3); LYMPH % 11.1 % (20.0-40.0); MEAN CORPUSCULAR HEMOGLOBIN 27.7 pg (27.0-31.0); MEAN CORPUSCULAR HGB CONC 33.3 g/dL (33.0-37.0); MEAN PLATELET VOLUME 8.7 fL (7.2-11.7); MONO # 0.4 K/uL (0.0-0.8); MONO % 3.4 % (0.0-10.0); NEUT # 10.8 K/uL (1.8-7.0); NEUT % 84.9 % (50.0-75.0); NRBC % 4.2 % (0.0-2.0); RBC 2.91 Mil/uL (3.80-5.20); RED CELL DISTRIBUTION WIDTH 16.3 % (11.5-14.5); WHITE BLOOD COUNT 12.7 K/uL (4.8-10.8)
[2017-08-31 21:35] LABS: MEAN CELL VOLUME 83.2 fL (81.0-99.0)
[2017-08-31 21:36] LABS: ALBUMIN 2.8 g/dL (3.5-5.0); CALCIUM 7.5 mg/dl (8.6-10.4)
--- NOTE | 2017-08-31 22:22 | PN ---
DATE: SUBJECTIVE: The patient arrested twice yesterday. First cardiac arrest was of bradycardia and second one reported to me as ventricular tachycardia. The patient received one defibrillation. She is currently intubated on a ventilator, about to start hemodialysis. The left upper arm AV fistula was not functioning and the patient had Perma-cath inserted today. The patient is currently on Levophed 10 mcg per minute. PHYSICAL EXAMINATION VITAL SIGNS: Blood pressure 120/54, heart rate 115, temperature 97.6. The patient is in atrial fibrillation on the monitor with rapid ventricular response. HEENT: Pale conjunctivae. CHEST: Absent breath sounds over the bases. HEART: Heart sounds were regular. EXTREMITIES: Trace leg edema. LABORATORY DATA: SMA-7: Sodium 150, potassium 4.7, chloride 108, CO2 is 16, glucose 125, BUN 96, creatinine 6.2. Today's hemoglobin and hematocrit 9.2 and 28.4, white count 14.6, platelet count 132,000. Chest x-ray revealed cardiomegaly with mild CHF. ASSESSMENT: 1. Status post cardiac arrest. 2. Ischemic cardiomyopathy. 3. Consider non-ST elevation myocardial infarction. 4. End-stage renal disease, hemodialysis is about to be started. 5. New-onset atrial fibrillation. 6. Hypertension, septic versus cardiogenic shock. RECOMMENDATIONS: Continue current IV amiodarone, and IV heparin. Continue IV Avelox and IV Azactam. Continue Levophed to maintain systolic blood pressure above 110. Obtain 12-lead EKG now. Case was discussed at length with family and with Dr. Houston, the primary vertical boring mill operator. According to the family, the patient has refused dialysis in the past and according to Dr. Houston, she refused cardiac catheterization in the past. The patient is not a suitable candidate for cardiac catheterization at this time. Once reasonable recovery is achieved, then the history of cardiac catheterization can be revisited. In the meantime, I will sign off the case. Nish Balderas MD
[2017-08-31] MEDS: (Lantus) Insulin Glargine, Recombinant SC SCH (22:46)
[2017-08-31] MEDS: Moxifloxacin IV 400mg/250ml NS 400 MG/250 ML BAG IVPB SCH (22:57)
[2017-09-01] MEDS: (Novolog) Insulin Aspart, Recombinant 100 u/ml 10 ml vial SC SCH ×4 (00:26→18:31)
[2017-09-01] MEDS: Aztreonam 1 GM in Sodium Chloride 0.9% 100 ML IVPB SCH ×2 (01:34→14:54)
--- NOTE | 2017-09-01 02:45 | CP.PCM.PN ---
Subjective - Date & Time of Evaluation Date of Evaluation: 09/01/17 Time of Evaluation: 02:42 - Subjective Subjective: Vasc Sx: Dr Quinonez Pt S&E in ICU. Remains intubated. Now on bicarb drip. Prognosis guarded. Able to dialysis of temporary shiley today but pt did not tolerate dialysis for prolonged time. Will defer any intervention on thrombosed graft til pt is stabilized and recovered. Objective - Vital Signs/Intake and Output Vital Signs (last 24 hours): Temp Pulse Resp BP Pulse Ox 98.7 F 86 19 116/53 L 84 L 09/01/17 00:00 09/01/17 02:00 09/01/17 02:00 09/01/17 01:59 09/01/17 02:00 Intake and Output: 08/31/17 09/01/17 18:59 06:59 Intake Total 1824.8 1807.9 Output Total 0 Balance 1824.8 1807.9 - Medications Medications: Current Medications Aspirin (Aspirin Chewable) 81 mg PO DAILY [facility] Last Admin: 08/31/17 09:40 Dose: 81 mg Calcium Acetate (Phoslo) 667 mg PO TID [facility] Last Admin: 08/31/17 17:35 Dose: 667 mg Epoetin Alan (Procrit) 4,000 unit IV MWF [facility] Last Admin: 08/30/17 23:34 Dose: Not Given Ergocalciferol (Drisdol 50,000 Intl Units Cap) 1 cap PO Q7D [facility] Last Admin: 08/31/17 13:51 Dose: 1 cap Ferrous Gluconate (Fergon) 324 mg PO TID [facility] Last Admin: 08/31/17 17:35 Dose: 324 mg Hydrocortisone Sodium Succinate (Solu-Cortef) 100 mg IV Q8H [facility] Last Admin: 08/31/17 21:17 Dose: 100 mg Heparin Sodium/Sodium Chloride (Heparin 21476 Units/250ml 1/2 Normal Saline) 25 ,000 units in 250 mls @ 7.076 mls/hr IV .Q24H PRN; Protocol; 12 UNITS/KG/HR PRN Reason: PROTOCOL Last Admin: 08/31/17 05:11 Dose: 17 units/kg/hr, 10.024 mls/hr Moxifloxacin HCl (Avelox Iv 400mg/250ml Ns) 400 mg in 250 mls @ 167 mls/hr IVPB Q24H [facility] Last Admin: 08/31/17 22:57 Dose: 167 mls/hr Norepinephrine Bitartrate 8 mg (/ Sodium Chloride) 258 mls @ 7.74 mls/hr IV .Q24H PRN; Protocol; 4 MCG/MIN PRN Reason: TITRATE PER MD ORDER Last Titration: 08/31/17 21:48 Dose: 0 mcg/min, 0 mls/hr Aztreonam 1 gm/ Sodium (Chloride) 100 mls @ 100 mls/hr IVPB Q12H [facility] Last Admin: 09/01/17 01:34 Dose: 100 mls/hr Metronidazole (Flagyl) 500 mg in 100 mls @ 100 mls/hr IVPB Q8H [facility] Last Admin: 08/31/17 22:43 Dose: 100 mls/hr Vasopressin 40 units/ Dextrose 42 mls @ 2.52 mls/hr IV .[id number] [facility]; 0.04 UNITS /MIN PRN Reason: Protocol Last Admin: 08/31/17 20:53 Dose: 0.04 units/min, 2.52 mls/hr Sodium Bicarbonate 75 meq/ (Sodium Chloride) 1,075 mls @ 75 mls/hr IV .[id number] [facility] Last Admin: 08/31/17 22:40 Dose: 75 mls/hr Insulin Aspart (Novolog) 0 unit SC Q6 [facility] PRN Reason: Protocol Last Admin: 09/01/17 00:26 Dose: Not Given Insulin Glargine (Lantus) 15 unit SC [facility] Last Admin: 08/31/17 22:46 Dose: 15 u Pantoprazole Sodium (Protonix Ec Tab) 40 mg PO DAILY [facility] Rosuvastatin Calcium (Crestor) 5 mg PO HS [facility] Last Admin: 08/31/17 22:14 Dose: 5 mg Vitamin B Complex/Vit C/Folic Acid (Nephro-Kamron) 1 tab PO 0800 [facility] Last Admin: 08/31/17 08:30 Dose: 1 tab - Labs Labs: 08/31/17 21:16 08/31/17 21:16 PT 14.6 SECONDS (9.7-12.2) H 08/30/17 02:17 INR 1.3 08/30/17 02:17 APTT 58 SECONDS (21-34) H D 08/31/17 17:10 - Constitutional Appears: Toxic - ENT Exam ENT Exam: Mucous Membranes Dry - Respiratory Exam Additional comments: intubated - Cardiovascular Exam Cardiovascular Exam: Tachycardia - GI/Abdominal Exam GI & Abdominal Exam: Distended, Soft - Extremities Exam Extremities Exam: Pedal Edema - Neurological Exam Neurological Exam: absent: Alert Assessment and Plan - Assessment and Plan (Free Text) Assessment: cont to dialyze via shiley no plans for intervention on thrombosed graft at this time please reconsult vascular surgery as necessary d/w Dr Devi Means, PGY3
[2017-09-01 05:43] LABS: ARTERIAL BLOOD GAS HCO3 25.8 mmol/L (21-28); ARTERIAL BLOOD GAS O2 SAT 99.9 % (95-98); ARTERIAL BLOOD GAS PCO2 27 mm/Hg (35-45); ARTERIAL BLOOD GAS PH 7.53 (7.35-7.45); ARTERIAL BLOOD GAS PO2 165 mm/Hg (80-100); ARTERIAL BLOOD GAS TCO2 23.4 mmol/L (22-28)
[2017-09-01] MEDS: metroNIDAZOLE IV 500 mg/100 ml 500 MG/100 ML BAG IVPB SCH ×3 (05:58→21:36)
[2017-09-01 06:18] LABS: BASO % 0.2 % (0.0-2.0); EOS % 0.2 % (0.0-4.0); HEMOGLOBIN 7.6 g/dL (11.0-16.0); LYMPH # 0.8 K/uL (1.0-4.3); LYMPH % 7.2 % (20.0-40.0); MEAN CELL VOLUME 84.2 fL (81.0-99.0); MEAN CORPUSCULAR HEMOGLOBIN 27.8 pg (27.0-31.0); MEAN PLATELET VOLUME 9.5 fL (7.2-11.7); MONO # 0.3 K/uL (0.0-0.8); MONO % 3.1 % (0.0-10.0); NEUT # 9.8 K/uL (1.8-7.0); NEUT % 89.3 % (50.0-75.0); NRBC % 3.4 % (0.0-2.0); PLATELET COUNT 88 K/uL (130-400); RBC 2.72 Mil/uL (3.80-5.20); RED CELL DISTRIBUTION WIDTH 16.5 % (11.5-14.5)
[2017-09-01 06:31] LABS: ALB/GLOB RATIO 0.9 (1.0-2.1); ALBUMIN 2.5 g/dL (3.5-5.0); CALCIUM 7.3 mg/dl (8.6-10.4)
[2017-09-01] MEDS: Heparin25000 units/250ml 1/2NS 25,000 UNITS/250 ML BAG IV PRN (08:00)
[2017-09-01] MEDS: Multivitamin Vitamin B Complex (Nephro-Vite) Tab PO SCH (08:56)
--- NOTE | 2017-09-01 09:00 | CP.PCM.PN ---
Subjective - Date & Time of Evaluation Date of Evaluation: 09/01/17 Time of Evaluation: 08:57 - Subjective Subjective: Nephrology Follow up Assessment: critical CKD stage 5 (N18.5) with hyperkalemia, acidosis ? uremia pulm edema, CHF, NSTEMI, pleural effusions, pneumonia AMS, hyperglycemia Cardiac arrest Sepsis Diabetic chronic Kidney Disease (E11.22) Hypertensive Chronic Kidney Disease (I12.9) Anemia (D64.9), Hyperphosphatemia (E83.39), Secondary Hyperparathyroidism (E21.1 ), HTN (I12.9), vit D insuff, hx of colon CA, TIAs Plan Pt underwent HD for about 45 min but had to be terminated due to hypotension and rapid afib. Was started on amio gtt. Remains anuric Will trial HD again today, currently off pressors. If does not tolerate again may need to consider continuous modalities. on iron supplements, MVI, epogen with HD continue phos binders and Vit D d/c hco3 monitor lactic acid on broad spectrum abx dose for esrd discussed w/ cutter wet machine S: seen and examined, intubated Physical Examination: General Appearance: intubated and sedated Vitals reviewed and noted as below Head; Atraumatic, normocephalic ENT: unable EYES: anicteric op: et tube Neck; supple no lymphadenopathy, no thyromegaly or bruit Lungs: Normal respiratory rate/effort. Breath sounds bilateral decreased at bases with crackles Heart: Normal rate. s1s2 normal. No rub or gallop. Extremities: no edema. No varicose veins. chronic hyperpigmented changes in legs Neurological: Patient opens eyes to voice Skin: Warm and dry. Normal turgor. No rash. Palpitation: Normal elasticity for age Abdomen: Abdomen is soft. Bowel sounds +. There is no abdominal tenderness, no guarding/rigidity no organomegaly Psych: unable MSK: no joint tenderness or swelling. Digits and nails normal, no deformity : kidney or bladder not palpable Access: Left AVG with no bruit Labs/imaging reviewed. Past medical history, past surgical history, family history, social history, allergy reviewed and noted as below Family hx: no hx of CKD. Rest non-contributory Objective - Vital Signs/Intake and Output Vital Signs (last 24 hours): Temp Pulse Resp BP Pulse Ox 98.2 F 91 H 16 126/62 100 03/04/18 04:00 09/01/17 07:00 09/01/17 07:00 09/01/17 06:59 09/01/17 07:00 Intake and Output: 09/01/17 09/01/17 06:59 18:59 Intake Total 2316.7 186.6 Output Total 0 0 Balance 2316.7 186.6 - Medications Medications: Current Medications Aspirin (Aspirin Chewable) 81 mg PO DAILY [facility] Last Admin: 08/31/17 09:40 Dose: 81 mg Calcium Acetate (Phoslo) 667 mg PO TID [facility] Last Admin: 08/31/17 17:35 Dose: 667 mg Epoetin Alan (Procrit) 4,000 unit IV MWF [facility] Last Admin: 08/30/17 23:34 Dose: Not Given Ergocalciferol (Drisdol 50,000 Intl Units Cap) 1 cap PO Q7D [facility] Last Admin: 08/31/17 13:51 Dose: 1 cap Ferrous Gluconate (Fergon) 324 mg PO TID [facility] Last Admin: 08/31/17 17:35 Dose: 324 mg Hydrocortisone Sodium Succinate (Solu-Cortef) 100 mg IV Q8H [facility] Last Admin: 09/01/17 04:34 Dose: 100 mg Heparin Sodium/Sodium Chloride (Heparin 49932 Units/250ml 1/2 Normal Saline) 25 ,000 units in 250 mls @ 7.076 mls/hr IV .Q24H PRN; Protocol; 12 UNITS/KG/HR PRN Reason: PROTOCOL Last Admin: 08/31/17 05:11 Dose: 17 units/kg/hr, 10.024 mls/hr Moxifloxacin HCl (Avelox Iv 400mg/250ml Ns) 400 mg in 250 mls @ 167 mls/hr IVPB Q24H [facility] Last Admin: 08/31/17 22:57 Dose: 167 mls/hr Norepinephrine Bitartrate 8 mg (/ Sodium Chloride) 258 mls @ 7.74 mls/hr IV .Q24H PRN; Protocol; 4 MCG/MIN PRN Reason: TITRATE PER MD ORDER Last Titration: 08/31/17 21:48 Dose: 0 mcg/min, 0 mls/hr Aztreonam 1 gm/ Sodium (Chloride) 100 mls @ 100 mls/hr IVPB Q12H [facility] Last Admin: 09/01/17 01:34 Dose: 100 mls/hr Metronidazole (Flagyl) 500 mg in 100 mls @ 100 mls/hr IVPB Q8H [facility] Last Admin: 09/01/17 05:58 Dose: 100 mls/hr Vasopressin 40 units/ Dextrose 42 mls @ 2.52 mls/hr IV .[id number] [facility]; 0.04 UNITS /MIN PRN Reason: Protocol Last Titration: 09/01/17 05:00 Dose: 0 units/min, 0 mls/hr Sodium Bicarbonate 75 meq/ (Sodium Chloride) 1,075 mls @ 75 mls/hr IV .[id number] [facility] Last Admin: 08/31/17 22:40 Dose: 75 mls/hr Insulin Aspart (Novolog) 0 unit SC Q6 [facility] PRN Reason: Protocol Last Admin: 09/01/17 05:56 Dose: 3 unit Insulin Glargine (Lantus) 15 unit SC HS [facility] Last Admin: 08/31/17 22:46 Dose: 15 u Pantoprazole Sodium (Protonix Ec Tab) 40 mg PO DAILY [facility] Rosuvastatin Calcium (Crestor) 5 mg PO HS [facility] Last Admin: 08/31/17 22:14 Dose: 5 mg Vitamin B Complex/Vit C/Folic Acid (Nephro-Kamron) 1 tab PO 0800 [facility] Last Admin: 09/01/17 08:56 Dose: 1 tab - Labs Labs: 09/01/17 06:11 09/01/17 06:08 PT 14.6 SECONDS (9.7-12.2) H 08/30/17 02:17 INR 1.3 08/30/17 02:17 APTT 53 SECONDS (21-34) H D 09/01/17 06:08
[2017-09-01 09:27] LABS: BANDS 6 % (0-2); LYMPHOCYTE 6 % (20-40); METAMYELOCYTE 1 % (0-0); MONOCYTE 1 % (0-10); NEUTROPHIL 85 % (50-75); NUCLEATED RED BLOOD CELL 2 % (0-0); PLATELET ESTIMATE DECREASED (NORMAL); REACTIVE LYMPHOCYTES 1 % (0-0); TOTAL CELLS COUNTED 100
[2017-09-01 09:28] LABS: ANISOCYTOSIS SLIGHT; HYPOCHROMIC SLIGHT; MICROCYTOSIS SLIGHT; POIKILOCYTOSIS SLIGHT; POLYCHROMIC SLIGHT; TOXIC GRANULATION PRESENT
[2017-09-01 09:29] LABS: OVALOCYTES SLIGHT
--- NOTE | 2017-09-01 09:29 | RAD ---
HISTORY: eval cxr post CPR COMPARISON: Chest radiograph dated 08/31/2017. FINDINGS: LUNGS: Pulmonary vascular congestion. Left basilar atelectasis. PLEURA: Stable trace right and small to moderate left pleural effusions. No pneumothorax apparent. CARDIOVASCULAR: Atherosclerotic aortic calcifications. Heavy mitral annular calcification. Cardiomediastinal silhouette stably enlarged. OSSEOUS STRUCTURES: Unchanged. VISUALIZED UPPER ABDOMEN: Partially imaged inferior vena cava filter. OTHER FINDINGS: Endotracheal, enteric tubes, unchanged. Right internal jugular access central venous catheter, unchanged. Left internal jugular access non tunneled hemodialysis catheter unchanged. Overlying pacer pads redemonstrated. IMPRESSION: Stable tubes and lines. No significant interval change.
[2017-09-01 09:30] LABS: GIANT PLATELETS PRESENT; LARGE PLATELETS PRESENT
[2017-09-01] MEDS ORDERED: Pantoprazole 40 mg EC Tab PO SCH (10:00)
[2017-09-01] MEDS ORDERED: Phenylephrine 30 MG in Sodium Chloride 0.9% 247 ML IV PRN (11:36)
--- NOTE | 2017-09-01 11:45 | CP.PCM.PN ---
Subjective - Date & Time of Evaluation Date of Evaluation: 09/01/17 Time of Evaluation: 09:00 - Subjective Subjective: Patient was seen and examined,she is awake and open her eyes spontaneously. Patient didn't tolerate dialysis yesterday.She became hypotensive and rapid afib ,started on amiodarone She is anuric , She is off pressors Objective - Vital Signs/Intake and Output Vital Signs (last 24 hours): Temp Pulse Resp BP Pulse Ox 98.2 F 85 16 100/70 100 09/01/17 04:00 09/01/17 09:59 09/01/17 09:59 09/01/17 09:59 09/01/17 09:59 Intake and Output: 09/01/17 09/01/17 06:59 18:59 Intake Total 2566.7 333.2 Output Total 0 0 Balance 2566.7 333.2 - Medications Medications: Current Medications Aspirin (Aspirin Chewable) 81 mg PO DAILY [facility] Last Admin: 09/01/17 09:01 Dose: 81 mg Calcium Acetate (Phoslo) 667 mg PO TID [facility] Last Admin: 09/01/17 09:01 Dose: 667 mg Epoetin Alan (Procrit) 4,000 unit IV MWF [facility] Last Admin: 08/30/17 23:34 Dose: Not Given Ergocalciferol (Drisdol 50,000 Intl Units Cap) 1 cap PO Q7D [facility] Last Admin: 08/31/17 13:51 Dose: 1 cap Ferrous Gluconate (Fergon) 324 mg PO TID [facility] Last Admin: 09/01/17 10:23 Dose: 324 mg Hydrocortisone Sodium Succinate (Solu-Cortef) 100 mg IV Q8H [facility] Last Admin: 09/01/17 04:34 Dose: 100 mg Heparin Sodium/Sodium Chloride (Heparin 46974 Units/250ml 1/2 Normal Saline) 25 ,000 units in 250 mls @ 7.076 mls/hr IV .Q24H PRN; Protocol; 12 UNITS/KG/HR PRN Reason: PROTOCOL Last Admin: 09/01/17 08:00 Dose: 17 units/kg/hr, 10.024 mls/hr Moxifloxacin HCl (Avelox Iv 400mg/250ml Ns) 400 mg in 250 mls @ 167 mls/hr IVPB Q24H [facility] Last Admin: 08/31/17 22:57 Dose: 167 mls/hr Norepinephrine Bitartrate 8 mg (/ Sodium Chloride) 258 mls @ 7.74 mls/hr IV .Q24H PRN; Protocol; 4 MCG/MIN PRN Reason: TITRATE PER MD ORDER Last Titration: 09/01/17 10:55 Dose: 5 mcg/min, 9.67 mls/hr Aztreonam 1 gm/ Sodium (Chloride) 100 mls @ 100 mls/hr IVPB Q12H [facility] Last Admin: 09/01/17 01:34 Dose: 100 mls/hr Metronidazole (Flagyl) 500 mg in 100 mls @ 100 mls/hr IVPB Q8H [facility] Last Admin: 09/01/17 05:58 Dose: 100 mls/hr Sodium Bicarbonate 75 meq/ (Sodium Chloride) 1,075 mls @ 75 mls/hr IV .[id number] [facility] Last Admin: 08/31/17 22:40 Dose: 75 mls/hr Phenylephrine HCl 30 mg/ (Sodium Chloride) 253 mls @ 10.12 mls/hr IV .Q24H PRN ; Protocol; 20 MCG/MIN PRN Reason: TITRATE PER MD ORDER Insulin Aspart (Novolog) 0 unit SC Q6 [facility] PRN Reason: Protocol Last Admin: 09/01/17 05:56 Dose: 3 unit Insulin Glargine (Lantus) 15 unit SC [facility] Last Admin: 08/31/17 22:46 Dose: 15 u Pantoprazole Sodium (Protonix Ec Tab) 40 mg PO DAILY [facility] Last Admin: 09/01/17 10:00 Dose: Not Given Pantoprazole Sodium (Protonix Inj) 40 mg IVP DAILY [facility] Rosuvastatin Calcium (Crestor) 5 mg PO [facility] Last Admin: 08/31/17 22:14 Dose: 5 mg Vitamin B Complex/Vit C/Folic Acid (Nephro-Kamron) 1 tab PO 0800 [facility] Last Admin: 09/01/17 08:56 Dose: 1 tab - Labs Labs: 09/01/17 06:11 09/01/17 06:08 PT 14.6 SECONDS (9.7-12.2) H 08/30/17 02:17 INR 1.3 08/30/17 02:17 APTT 53 SECONDS (21-34) H D 09/01/17 06:08 - Constitutional Appears: No Acute Distress, Chronically Ill - Head Exam Head Exam: absent: NORMAL INSPECTION (intubated) - Eye Exam Eye Exam: Normal appearance - ENT Exam ENT Exam: Mucous Membranes Moist - Neck Exam Neck Exam: absent: Full ROM (Intubated) - Respiratory Exam Respiratory Exam: Decreased Breath Sounds, Rales, NORMAL BREATHING PATTERN - Cardiovascular Exam Cardiovascular Exam: REGULAR RHYTHM - GI/Abdominal Exam GI & Abdominal Exam: Soft, Normal Bowel Sounds - Extremities Exam Extremities Exam: absent: Full ROM (lethrgic this morning) - Neurological Exam Neurological Exam: Awake. absent: Oriented x3 (intubated) - Psychiatric Exam Psychiatric exam: absent: Normal Mood (inutubated) - Skin Skin Exam: Dry Assessment and Plan - Assessment and Plan (Free Text) Assessment: Patient is a 76 year old female with a PMH significant for CKD stage V (not on dialysis), Diastolic CHF, DM, HTN, hypercholesterolemia, OH ( many years ago, no known intervention), TIA x 3 (years ago), colon CA who presents for altered mental status. On admission patient was acidotic,NSTEMI ,acute on chronic renal failure, altered mental status and leukocytosis/r/o infection.She was evaluated by hide splitter yesterday who recommended to continue heparin ,asprin, labetalol and treat her acute renal failure and possible sepsis. ECHO with evidence of severely decreased EF (30%). Patient has a matured AVG in L arm .Not working. Has temporary cath for dialysis Plan: 1 Acute NSTEMI , S/P Hypotension/Asystol ,CPR/Sustained VT/Intubation Continue amiodarone and Levophed patient is awake and responsive Echo EF 30%.Elevated Elevated troponin with normal EKG Cardiology consult, Dr Houston continue Aspirin and Heparin Drip - Cardiac Protocol Nitorglycerin 0.4mg SL Q5M PRN Crestor 5mg PO HS cardiac intervention after treating ARF and possible infection 2.Acute renal failure and Anuria Dialysis as per nephrology/Didn't tolerate yesterday trial today 3. acidosis/ Leukocytosis and r/o sepsis blood -no growth for 48hours. 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 No plan for tap follow chest x ray and dialysis 6.Hyperglycemia and uncontrolled DM continue Lantus and monitor sugar 7.Anemia likely due to CRF anemia work up 8.Code status -full code
--- NOTE | 2017-09-01 16:57 | CP.CCUPN ---
CCU Subjective - Physician Review Events Since Last Encounter (Free Text): 09/01/17 16:55 moving around, not following commands. CCU Objective - Vital Signs / Intake & Output Vital Signs (Last 4 hours): Vital Signs Temp Pulse Resp BP BP Pulse Ox 09/01/17 16:51 98 H 17 139/80 100 09/01/17 16:11 106 H 16 135/77 100 09/01/17 16:00 97.3 F L 100 09/01/17 15:25 102 H 16 119/80 100 09/01/17 15:11 93 H 16 143/87 100 09/01/17 14:26 103 H 16 112/70 100 09/01/17 14:25 112/70 09/01/17 14:11 101 H 19 130/29 L 96 09/01/17 13:55 144/68 09/01/17 13:25 90/69 L 09/01/17 13:11 102 H 19 102/68 87 L Intake and Output (Last 8hrs): Intake & Output 09/01/17 09/01/17 09/01/17 06:59 14:59 22:59 Intake Total 1591.6 616.0 323.4 Output Total 0 0 0 Balance 1591.6 616.0 323.4 Weight 160 lb 4 oz Intake: IV 282 20 Intake, IV Amount 1309.6 421.0 273.4 Right Forearm 350 200 Right Hand 80.0 90.0 20.0 Right Internal Jugular 13.2 0 distal 266.4 216.6 33.4 medial 39.4 20 proximal 600 75 Tube Feeding 175 50 Output: Urine 0 0 0 Urethral ([place]) 0 0 0 Other: # Bowel Movements 0 0 0 - Physical Exam Physical Exam Limitations: Positive for: Altered Mental Status Head: Positive for: Atraumatic, Normocephalic. Negative for: Tenderness, Contusion, Swelling Pupils: Positive for: PERRL. Negative for: Sluggish, Non-Reactive Extroacular Muscles: Positive for: EOMI Conjunctiva: Positive for: Normal Mouth: Positive for: Dry Pharnyx: Positive for: Normal Nose (External): Positive for: Atraumatic Neck: Positive for: Trachea Midline. Negative for: JVD Respiratory/Chest: Positive for: Good Air Exchange, Accessory Muscle Use, Decreased Breath Sounds (on bilateral bases). Negative for: Wheezes Cardiovascular: Positive for: Tachycardic Abdomen: Positive for: Distention, Normal Bowel Sounds. Negative for: Peritoneal Signs Upper Extremity: Negative for: Cyanosis, Edema Lower Extremity: Negative for: Edema Psychiatric: Positive for: Alert - Medications Active Medications: Active Medications Generic Name Dose Route Start Last Admin Trade Name Freq PRN Reason Stop Dose Admin Aspirin 81 mg 08/30/17 10:00 09/01/17 09:01 Aspirin Chewable PO 81 mg DAILY CAROLYNE Administration Calcium Acetate 667 mg 08/30/17 14:00 09/01/17 14:55 Phoslo PO 667 mg TID CAROLYNE Administration Epoetin Alan 4,000 unit 08/30/17 15:00 08/30/17 23:34 Procrit IV Not Given [facility] [place] Ergocalciferol 1 cap 08/31/17 14:45 08/31/17 13:51 Drisdol 50,000 Intl Units Cap PO 1 cap Q7D CAROLYNE Administration Ferrous Gluconate 324 mg 08/31/17 10:00 09/01/17 14:54 Fergon PO 324 mg TID CAROLYNE Administration Heparin Sodium/Sodium Chloride 25,000 units in 250 mls @ 7.076 mls/hr 00:56 09/01/17 08:00 Heparin 53259 Units/250ml 1/2 Normal Saline IV 17 units/kg/hr .Q24H PRN 10.024 mls/hr PROTOCOL Administration Protocol 12 UNITS/KG/HR Moxifloxacin HCl 400 mg in 250 mls @ 167 mls/hr 08/30/17 23:00 08/31/17 22:57 Avelox Iv 400mg/250ml Ns IVPB 167 mls/hr Q24H CAROLYNE Administration Norepinephrine Bitartrate 8 mg 258 mls @ 7.74 mls/hr 08/30/17 19:56 09/01/17 12:12 / Sodium Chloride IV 0 mcg/min .Q24H PRN 0 mls/hr TITRATE PER MD ORDER Titration Protocol 4 MCG/MIN Aztreonam 1 gm/ Sodium 100 mls @ 100 mls/hr 08/31/17 13:30 09/01/17 14:54 Chloride IVPB 100 mls/hr Q12H CAROLYNE Administration Metronidazole 500 mg in 100 mls @ 100 mls/hr 08/31/17 14:30 09/01/17 15:00 Flagyl IVPB 100 mls/hr Q8H CAROLYNE Administration Phenylephrine HCl 30 mg/ 250 mls @ 10 mls/hr 09/01/17 11:36 09/01/17 12:12 Sodium Chloride IV 20 mcg/min .Q24H PRN 10 mls/hr TITRATE PER MD ORDER Administration Protocol 20 MCG/MIN Amiodarone HCl 900 mg/ 500 mls @ 16.66 mls/hr 09/01/17 16:17 09/01/17 16:51 Dextrose IV 09/02/17 16:16 16.66 mls/hr .Q24H ONE Administration Protocol 0.5 MG/MIN Insulin Aspart 0 unit 09/01/17 11:49 09/01/17 12:12 Novolog SC 8 unit Q6 CAROLYNE Administration Protocol Insulin Glargine 15 unit 08/30/17 22:00 08/31/17 22:46 Lantus SC 15 u HS CAROLYNE Administration Pantoprazole Sodium 40 mg 09/02/17 10:00 Protonix Inj IVP DAILY CAROLYNE Rosuvastatin Calcium 5 mg 08/30/17 01:15 08/31/17 22:14 Crestor PO 5 mg HS CAROLYNE Administration Vitamin B Complex/Vit C/Folic Acid 1 tab 08/31/17 08:00 09/01/17 08:56 Nephro-Kamron PO 1 tab 0800 CAROLYNE Administration - Patient Studies Lab Studies: Microbiology Studies 08/29/17 06:30 Blood Culture - Preliminary Blood-Venous NO GROWTH AFTER 48 HOURS 08/29/17 06:00 Blood Culture - Preliminary Blood-Venous NO GROWTH AFTER 48 HOURS 08/30/17 06:00 MRSA Culture (Admit) - Final Nose MRSA NOT DETECTED Lab Studies 09/01/17 09/01/17 09/01/17 Range/Units 11:21 06:11 06:08 WBC 11.0 H (4.8-10.8) K/uL RBC 2.72 L (3.80-5.20) Mil/uL Hgb 7.6 L (11.0-16.0) g/dL Hct 22.9 L (34.0-47.0) % MCV 84.2 (81.0-99.0) fL MCH 27.8 (27.0-31.0) pg MCHC 33.0 (33.0-37.0) g/dL RDW 16.5 H (11.5-14.5) % Plt Count 88 L D (130-400) K/uL MPV 9.5 (7.2-11.7) fL Neut % (Auto) 89.3 H (50.0-75.0) % Lymph % (Auto) 7.2 L (20.0-40.0) % [place] % (Auto) 3.1 (0.0-10.0) % Eos % (Auto) 0.2 (0.0-4.0) % Baso % (Auto) 0.2 (0.0-2.0) % Neut # (Auto) 9.8 H (1.8-7.0) K/uL Lymph # (Auto) 0.8 L (1.0-4.3) K/uL [place] # (Auto) 0.3 (0.0-0.8) K/uL Eos # (Auto) 0.0 (0.0-0.7) K/uL Baso # (Auto) 0.0 (0.0-0.2) K/uL Neutrophils % (Manual) 85 H (50-75) % Band Neutrophils % 6 H (0-2) % Lymphocytes % (Manual) 6 L (20-40) % Reactive Lymphs % 1 H (0-0) % Monocytes % (Manual) 1 (0-10) % Metamyelocytes % 1 H (0-0) % Nucleated RBC % 2 H (0-0) % Toxic Granulation Present Platelet Estimate Decreased L (NORMAL) Large Platelets Present Giant Platelets Present Polychromasia Slight Hypochromasia (manual) Slight Poikilocytosis (manual Slight Anisocytosis (manual) Slight Microcytosis (manual) Slight Macrocytosis (manual) Slight Ovalocytes Slight APTT (21-34) SECONDS Puncture Site pCO2 (35-45) mm/Hg pO2 (80-100) mm/Hg HCO3 (21-28) mmol/L ABG pH (7.35-7.45) ABG Total CO2 (22-28) mmol/L ABG O2 Saturation (95-98) % ABG Base Excess (-2.0-3.0) mmol/L Christian Test ABG Potassium (3.6-5.2) mmol/L A-a O2 Difference mm/Hg Respiratory Index Sodium (132-148) mmol/l Chloride (98-107) mmol/L Glucose (65-105) mg/dl Lactate (0.7-2.1) mmol/L Vent Mode Mechanical Rate FiO2 % Tidal Volume PEEP Crit Value Called To Crit Value Called By Crit Value Read Back Blood Gas Notified Time Potassium (3.6-5.2) mmol/L Carbon Dioxide (22-30) mmol/L Anion Gap (10-20) BUN (7-17) mg/dL Creatinine (0.7-1.2) mg/dL Est GFR ( Amer) Est GFR (Non-Af Amer) POC Glucose (mg/dL) 300 H (65-110) mg/dL Random Glucose (65-105) mg/dL Lactic Acid 4.8 H* (0.7-2.1) mmol/L Calcium (8.6-10.4) mg/dl Phosphorus (2.5-4.5) mg/dL Magnesium (1.6-2.3) mg/dL Total Bilirubin (0.2-1.3) mg/dL AST (14-36) U/L ALT (9-52) U/L Alkaline Phosphatase (38-126) U/L Total Protein (6.3-8.3) g/dL Albumin (3.5-5.0) g/dL Globulin (2.2-3.9) gm/dL Albumin/Globulin Ratio (1.0-2.1) Arterial Blood Potassium (3.6-5.2) mmol/L 09/01/17 09/01/17 09/01/17 Range/Units 06:08 06:08 05:28 WBC (4.8-10.8) K/uL RBC (3.80-5.20) Mil/uL Hgb (11.0-16.0) g/dL Hct (34.0-47.0) % MCV (81.0-99.0) fL MCH (27.0-31.0) pg MCHC (33.0-37.0) g/dL RDW (11.5-14.5) % Plt Count (130-400) K/uL MPV (7.2-11.7) fL Neut % (Auto) (50.0-75.0) % Lymph % (Auto) (20.0-40.0) % [place] % (Auto) (0.0-10.0) % Eos % (Auto) (0.0-4.0) % Baso % (Auto) (0.0-2.0) % Neut # (Auto) (1.8-7.0) K/uL Lymph # (Auto) (1.0-4.3) K/uL [place] # (Auto) (0.0-0.8) K/uL Eos # (Auto) (0.0-0.7) K/uL Baso # (Auto) (0.0-0.2) K/uL Neutrophils % (Manual) (50-75) % Band Neutrophils % (0-2) % Lymphocytes % (Manual) (20-40) % Reactive Lymphs % (0-0) % Monocytes % (Manual) (0-10) % Metamyelocytes % (0-0) % Nucleated RBC % (0-0) % Toxic Granulation Platelet Estimate (NORMAL) Large Platelets Giant Platelets Polychromasia Hypochromasia (manual) Poikilocytosis (manual Anisocytosis (manual) Microcytosis (manual) Macrocytosis (manual) Ovalocytes APTT 53 H D (21-34) SECONDS Puncture Site pCO2 (35-45) mm/Hg pO2 (80-100) mm/Hg HCO3 (21-28) mmol/L ABG pH (7.35-7.45) ABG Total CO2 (22-28) mmol/L ABG O2 Saturation (95-98) % ABG Base Excess (-2.0-3.0) mmol/L Christian Test ABG Potassium (3.6-5.2) mmol/L A-a O2 Difference mm/Hg Respiratory Index Sodium 143 (132-148) mmol/l Chloride 101 (98-107) mmol/L Glucose (65-105) mg/dl Lactate (0.7-2.1) mmol/L Vent Mode Mechanical Rate FiO2 % Tidal Volume PEEP Crit Value Called To Crit Value Called By Crit Value Read Back Blood Gas Notified Time Potassium 4.5 (3.6-5.2) mmol/L Carbon Dioxide 20 L (22-30) mmol/L Anion Gap 26 H (10-20) BUN 98 H (7-17) mg/dL Creatinine 5.7 H (0.7-1.2) mg/dL Est GFR ( Amer) 9 Est GFR (Non-Af Amer) 7 POC Glucose (mg/dL) 266 H (65-110) mg/dL Random Glucose 241 H (65-105) mg/dL Lactic Acid (0.7-2.1) mmol/L Calcium 7.3 L (8.6-10.4) mg/dl Phosphorus (2.5-4.5) mg/dL Magnesium (1.6-2.3) mg/dL Total Bilirubin 1.8 H (0.2-1.3) mg/dL AST 6076 H (14-36) U/L ALT 2845 H (9-52) U/L Alkaline Phosphatase 80 (38-126) U/L Total Protein 5.3 L (6.3-8.3) g/dL Albumin 2.5 L (3.5-5.0) g/dL Globulin 2.7 (2.2-3.9) gm/dL Albumin/Globulin Ratio 0.9 L (1.0-2.1) Arterial Blood Potassium (3.6-5.2) mmol/L 09/01/17 08/31/17 08/31/17 Range/Units 05:02 23:30 21:16 WBC 12.7 H (4.8-10.8) K/uL RBC 2.91 L (3.80-5.20) Mil/uL Hgb 8.1 L (11.0-16.0) g/dL Hct 24.2 L (34.0-47.0) % MCV 83.2 D (81.0-99.0) fL MCH 27.7 (27.0-31.0) pg MCHC 33.3 (33.0-37.0) g/dL RDW 16.3 H (11.5-14.5) % Plt Count 108 L D (130-400) K/uL MPV 8.7 (7.2-11.7) fL Neut % (Auto) 84.9 H (50.0-75.0) % Lymph % (Auto) 11.1 L (20.0-40.0) % [place] % (Auto) 3.4 (0.0-10.0) % Eos % (Auto) 0.4 (0.0-4.0) % Baso % (Auto) 0.2 (0.0-2.0) % Neut # (Auto) 10.8 H (1.8-7.0) K/uL Lymph # (Auto) 1.4 (1.0-4.3) K/uL [place] # (Auto) 0.4 (0.0-0.8) K/uL Eos # (Auto) 0.1 (0.0-0.7) K/uL Baso # (Auto) 0.0 (0.0-0.2) K/uL Neutrophils % (Manual) (50-75) % Band Neutrophils % (0-2) % Lymphocytes % (Manual) (20-40) % Reactive Lymphs % (0-0) % Monocytes % (Manual) (0-10) % Metamyelocytes % (0-0) % Nucleated RBC % (0-0) % Toxic Granulation Platelet Estimate (NORMAL) Large Platelets Giant Platelets Polychromasia Hypochromasia (manual) Poikilocytosis (manual Anisocytosis (manual) Microcytosis (manual) Macrocytosis (manual) Ovalocytes APTT (21-34) SECONDS Puncture Site R bra pCO2 27 L (35-45) mm/Hg pO2 165 H (80-100) mm/Hg HCO3 25.8 (21-28) mmol/L ABG pH 7.53 H (7.35-7.45) ABG Total CO2 23.4 (22-28) mmol/L ABG O2 Saturation 99.9 H (95-98) % ABG Base Excess 1.1 (-2.0-3.0) mmol/L Christian Test Na ABG Potassium 4.6 (3.6-5.2) mmol/L A-a O2 Difference 86.0 mm/Hg Respiratory Index 0.5 Sodium 141.0 (132-148) mmol/l Chloride 105.0 (98-107) mmol/L Glucose 272 H (65-105) mg/dl Lactate 5.3 H* (0.7-2.1) mmol/L Vent Mode Prvc Mechanical Rate 16 FiO2 40.0 % Tidal Volume 500 PEEP 5 Crit Value Called To Brooklynn dangelo 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 Crit Value Called By Yaneth resendiz rt Crit Value Read Back Y Blood Gas Notified Time 542 Potassium (3.6-5.2) mmol/L Carbon Dioxide (22-30) mmol/L Anion Gap (10-20) BUN (7-17) mg/dL Creatinine (0.7-1.2) mg/dL Est GFR ( Amer) Est GFR (Non-Af Amer) POC Glucose (mg/dL) 202 H (65-110) mg/dL Random Glucose (65-105) mg/dL Lactic Acid (0.7-2.1) mmol/L Calcium (8.6-10.4) mg/dl Phosphorus (2.5-4.5) mg/dL Magnesium (1.6-2.3) mg/dL Total Bilirubin (0.2-1.3) mg/dL AST (14-36) U/L ALT (9-52) U/L Alkaline Phosphatase (38-126) U/L Total Protein (6.3-8.3) g/dL Albumin (3.5-5.0) g/dL Globulin (2.2-3.9) gm/dL Albumin/Globulin Ratio (1.0-2.1) Arterial Blood Potassium 4.6 (3.6-5.2) mmol/L 08/31/17 08/31/17 08/31/17 Range/Units 21:16 21:16 21:12 WBC (4.8-10.8) K/uL RBC (3.80-5.20) Mil/uL Hgb (11.0-16.0) g/dL Hct (34.0-47.0) % MCV (81.0-99.0) fL MCH (27.0-31.0) pg MCHC (33.0-37.0) g/dL RDW (11.5-14.5) % Plt Count (130-400) K/uL MPV (7.2-11.7) fL Neut % (Auto) (50.0-75.0) % Lymph % (Auto) (20.0-40.0) % [place] % (Auto) (0.0-10.0) % Eos % (Auto) (0.0-4.0) % Baso % (Auto) (0.0-2.0) % Neut # (Auto) (1.8-7.0) K/uL Lymph # (Auto) (1.0-4.3) K/uL [place] # (Auto) (0.0-0.8) K/uL Eos # (Auto) (0.0-0.7) K/uL Baso # (Auto) (0.0-0.2) K/uL Neutrophils % (Manual) (50-75) % Band Neutrophils % (0-2) % Lymphocytes % (Manual) (20-40) % Reactive Lymphs % (0-0) % Monocytes % (Manual) (0-10) % Metamyelocytes % (0-0) % Nucleated RBC % (0-0) % Toxic Granulation Platelet Estimate (NORMAL) Large Platelets Giant Platelets Polychromasia Hypochromasia (manual) Poikilocytosis (manual Anisocytosis (manual) Microcytosis (manual) Macrocytosis (manual) Ovalocytes APTT (21-34) SECONDS Puncture Site Rba pCO2 22 L (35-45) mm/Hg pO2 162 H (80-100) mm/Hg HCO3 27.4 (21-28) mmol/L ABG pH 7.62 H* (7.35-7.45) ABG Total CO2 23.3 (22-28) mmol/L ABG O2 Saturation 100.1 H (95-98) % ABG Base Excess 3.1 H (-2.0-3.0) mmol/L Christian Test Na ABG Potassium 4.2 (3.6-5.2) mmol/L A-a O2 Difference 96.0 mm/Hg Respiratory Index 0.6 Sodium 142 144.0 (132-148) mmol/l Chloride 102 107.0 (98-107) mmol/L Glucose 177 H (65-105) mg/dl Lactate 6.1 H* (0.7-2.1) mmol/L Vent Mode Prvc Mechanical Rate 22 FiO2 40.0 % Tidal Volume 500 PEEP 5 Crit Value Called To Dr lore morales Crit Value Called By Dmitry holder Crit Value Read Back Y Blood Gas Notified Time 2116 Potassium 4.2 (3.6-5.2) mmol/L Carbon Dioxide 22 (22-30) mmol/L Anion Gap 23 H (10-20) BUN 85 H (7-17) mg/dL Creatinine 5.7 H (0.7-1.2) mg/dL Est GFR ( Amer) 9 Est GFR (Non-Af Amer) 7 POC Glucose (mg/dL) (65-110) mg/dL Random Glucose 165 H (65-105) mg/dL Lactic Acid 5.6 H* (0.7-2.1) mmol/L Calcium 7.5 L (8.6-10.4) mg/dl Phosphorus 4.7 H (2.5-4.5) mg/dL Magnesium 1.8 (1.6-2.3) mg/dL Total Bilirubin 2.0 H (0.2-1.3) mg/dL AST 6513 H (14-36) U/L ALT 2678 H (9-52) U/L Alkaline Phosphatase 78 (38-126) U/L Total Protein 5.5 L (6.3-8.3) g/dL Albumin 2.8 L (3.5-5.0) g/dL Globulin 2.7 (2.2-3.9) gm/dL Albumin/Globulin Ratio 1.0 (1.0-2.1) Arterial Blood Potassium 4.2 (3.6-5.2) mmol/L 08/31/17 08/31/17 Range/Units 17:55 17:10 WBC (4.8-10.8) K/uL RBC (3.80-5.20) Mil/uL Hgb (11.0-16.0) g/dL Hct (34.0-47.0) % MCV (81.0-99.0) fL MCH (27.0-31.0) pg MCHC (33.0-37.0) g/dL RDW (11.5-14.5) % Plt Count (130-400) K/uL MPV (7.2-11.7) fL Neut % (Auto) (50.0-75.0) % Lymph % (Auto) (20.0-40.0) % [place] % (Auto) (0.0-10.0) % Eos % (Auto) (0.0-4.0) % Baso % (Auto) (0.0-2.0) % Neut # (Auto) (1.8-7.0) K/uL Lymph # (Auto) (1.0-4.3) K/uL [place] # (Auto) (0.0-0.8) K/uL Eos # (Auto) (0.0-0.7) K/uL Baso # (Auto) (0.0-0.2) K/uL Neutrophils % (Manual) (50-75) % Band Neutrophils % (0-2) % Lymphocytes % (Manual) (20-40) % Reactive Lymphs % (0-0) % Monocytes % (Manual) (0-10) % Metamyelocytes % (0-0) % Nucleated RBC % (0-0) % Toxic Granulation Platelet Estimate (NORMAL) Large Platelets Giant Platelets Polychromasia Hypochromasia (manual) Poikilocytosis (manual Anisocytosis (manual) Microcytosis (manual) Macrocytosis (manual) Ovalocytes APTT 58 H D (21-34) SECONDS Puncture Site pCO2 (35-45) mm/Hg pO2 (80-100) mm/Hg HCO3 (21-28) mmol/L ABG pH (7.35-7.45) ABG Total CO2 (22-28) mmol/L ABG O2 Saturation (95-98) % ABG Base Excess (-2.0-3.0) mmol/L Christian Test ABG Potassium (3.6-5.2) mmol/L A-a O2 Difference mm/Hg Respiratory Index Sodium (132-148) mmol/l Chloride (98-107) mmol/L Glucose (65-105) mg/dl Lactate (0.7-2.1) mmol/L Vent Mode Mechanical Rate FiO2 % Tidal Volume PEEP Crit Value Called To Crit Value Called By Crit Value Read Back Blood Gas Notified Time Potassium (3.6-5.2) mmol/L Carbon Dioxide (22-30) mmol/L Anion Gap (10-20) BUN (7-17) mg/dL Creatinine (0.7-1.2) mg/dL Est GFR ( Amer) Est GFR (Non-Af Amer) POC Glucose (mg/dL) 82 (65-110) mg/dL Random Glucose (65-105) mg/dL Lactic Acid (0.7-2.1) mmol/L Calcium (8.6-10.4) mg/dl Phosphorus (2.5-4.5) mg/dL Magnesium (1.6-2.3) mg/dL Total Bilirubin (0.2-1.3) mg/dL AST (14-36) U/L ALT (9-52) U/L Alkaline Phosphatase (38-126) U/L Total Protein (6.3-8.3) g/dL Albumin (3.5-5.0) g/dL Globulin (2.2-3.9) gm/dL Albumin/Globulin Ratio (1.0-2.1) Arterial Blood Potassium (3.6-5.2) mmol/L Laboratory Results - last 24 hr 08/31/17 08/31/17 08/31/17 17:10 17:55 21:12 WBC RBC Hgb Hct MCV MCH MCHC RDW Plt Count MPV Neut % (Auto) Lymph % (Auto) [place] % (Auto) Eos % (Auto) Baso % (Auto) Neut # (Auto) Lymph # (Auto) [place] # (Auto) Eos # (Auto) Baso # (Auto) Neutrophils % (Manual) Band Neutrophils % Lymphocytes % (Manual) Reactive Lymphs % Monocytes % (Manual) Metamyelocytes % Nucleated RBC % Toxic Granulation Platelet Estimate Large Platelets Giant Platelets Polychromasia Hypochromasia (manual) Poikilocytosis (manual Anisocytosis (manual) Microcytosis (manual) Macrocytosis (manual) Ovalocytes APTT 58 H D Puncture Site Rba pCO2 22 L pO2 162 H HCO3 27.4 ABG pH 7.62 H* ABG Total CO2 23.3 ABG O2 Saturation 100.1 H ABG Base Excess 3.1 H Christian Test Na ABG Potassium 4.2 A-a O2 Difference 96.0 Respiratory Index 0.6 Sodium 144.0 Chloride 107.0 Glucose 177 H Lactate 6.1 H* Vent Mode Prvc Mechanical Rate 22 FiO2 40.0 Tidal Volume 500 PEEP 5 Crit Value Called To Dr lore morales Crit Value Called By Dmitry holder Crit Value Read Back Y Blood Gas Notified Time 2116 Potassium Carbon Dioxide Anion Gap BUN Creatinine Est GFR ( Amer) Est GFR (Non-Af Amer) POC Glucose (mg/dL) 82 Random Glucose Lactic Acid Calcium Phosphorus Magnesium Total Bilirubin AST ALT Alkaline Phosphatase Total Protein Albumin Globulin Albumin/Globulin Ratio Arterial Blood Potassium 4.2 08/31/17 08/31/17 08/31/17 21:16 21:16 21:16 WBC 12.7 H RBC 2.91 L Hgb 8.1 L Hct 24.2 L MCV 83.2 D MCH 27.7 MCHC 33.3 RDW 16.3 H Plt Count 108 L D MPV 8.7 Neut % (Auto) 84.9 H Lymph % (Auto) 11.1 L [place] % (Auto) 3.4 Eos % (Auto) 0.4 Baso % (Auto) 0.2 Neut # (Auto) 10.8 H Lymph # (Auto) 1.4 [place] # (Auto) 0.4 Eos # (Auto) 0.1 Baso # (Auto) 0.0 Neutrophils % (Manual) Band Neutrophils % Lymphocytes % (Manual) Reactive Lymphs % Monocytes % (Manual) Metamyelocytes % Nucleated RBC % Toxic Granulation Platelet Estimate Large Platelets Giant Platelets Polychromasia Hypochromasia (manual) Poikilocytosis (manual Anisocytosis (manual) Microcytosis (manual) Macrocytosis (manual) Ovalocytes APTT Puncture Site pCO2 pO2 HCO3 ABG pH ABG Total CO2 ABG O2 Saturation ABG Base Excess Christian Test ABG Potassium A-a O2 Difference Respiratory Index Sodium 142 Chloride 102 Glucose Lactate Vent Mode Mechanical Rate FiO2 Tidal Volume PEEP Crit Value Called To Crit Value Called By Crit Value Read Back Blood Gas Notified Time Potassium 4.2 Carbon Dioxide 22 Anion Gap 23 H BUN 85 H Creatinine 5.7 H Est GFR ( Amer) 9 Est GFR (Non-Af Amer) 7 POC Glucose (mg/dL) Random Glucose 165 H Lactic Acid 5.6 H* Calcium 7.5 L Phosphorus 4.7 H Magnesium 1.8 Total Bilirubin 2.0 H AST 6513 H ALT 2678 H Alkaline Phosphatase 78 Total Protein 5.5 L Albumin 2.8 L Globulin 2.7 Albumin/Globulin Ratio 1.0 Arterial Blood Potassium 08/31/17 09/01/17 09/01/17 23:30 05:02 05:28 WBC RBC Hgb Hct MCV MCH MCHC RDW Plt Count MPV Neut % (Auto) Lymph % (Auto) [place] % (Auto) Eos % (Auto) Baso % (Auto) Neut # (Auto) Lymph # (Auto) [place] # (Auto) Eos # (Auto) Baso # (Auto) Neutrophils % (Manual) Band Neutrophils % Lymphocytes % (Manual) Reactive Lymphs % Monocytes % (Manual) Metamyelocytes % Nucleated RBC % Toxic Granulation Platelet Estimate Large Platelets Giant Platelets Polychromasia Hypochromasia (manual) Poikilocytosis (manual Anisocytosis (manual) Microcytosis (manual) Macrocytosis (manual) Ovalocytes APTT Puncture Site R bra pCO2 27 L pO2 165 H HCO3 25.8 ABG pH 7.53 H ABG Total CO2 23.4 ABG O2 Saturation 99.9 H ABG Base Excess 1.1 Christian Test Na ABG Potassium 4.6 A-a O2 Difference 86.0 Respiratory Index 0.5 Sodium 141.0 Chloride 105.0 Glucose 272 H Lactate 5.3 H* Vent Mode Prvc Mechanical Rate 16 FiO2 40.0 Tidal Volume 500 PEEP 5 Crit Value Called To Brooklynn dangelo 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 Crit Value Called By Yaneth resendiz rt Crit Value Read Back Y Blood Gas Notified Time 542 Potassium Carbon Dioxide Anion Gap BUN Creatinine Est GFR ( Amer) Est GFR (Non-Af Amer) POC Glucose (mg/dL) 202 H 266 H Random Glucose Lactic Acid Calcium Phosphorus Magnesium Total Bilirubin AST ALT Alkaline Phosphatase Total Protein Albumin Globulin Albumin/Globulin Ratio Arterial Blood Potassium 4.6 09/01/17 09/01/17 09/01/17 06:08 06:08 06:08 WBC RBC Hgb Hct MCV MCH MCHC RDW Plt Count MPV Neut % (Auto) Lymph % (Auto) [place] % (Auto) Eos % (Auto) Baso % (Auto) Neut # (Auto) Lymph # (Auto) [place] # (Auto) Eos # (Auto) Baso # (Auto) Neutrophils % (Manual) Band Neutrophils % Lymphocytes % (Manual) Reactive Lymphs % Monocytes % (Manual) Metamyelocytes % Nucleated RBC % Toxic Granulation Platelet Estimate Large Platelets Giant Platelets Polychromasia Hypochromasia (manual) Poikilocytosis (manual Anisocytosis (manual) Microcytosis (manual) Macrocytosis (manual) Ovalocytes APTT 53 H D Puncture Site pCO2 pO2 HCO3 ABG pH ABG Total CO2 ABG O2 Saturation ABG Base Excess Christian Test ABG Potassium A-a O2 Difference Respiratory Index Sodium 143 Chloride 101 Glucose Lactate Vent Mode Mechanical Rate FiO2 Tidal Volume PEEP Crit Value Called To Crit Value Called By Crit Value Read Back Blood Gas Notified Time Potassium 4.5 Carbon Dioxide 20 L Anion Gap 26 H BUN 98 H Creatinine 5.7 H Est GFR ( Amer) 9 Est GFR (Non-Af Amer) 7 POC Glucose (mg/dL) Random Glucose 241 H Lactic Acid 4.8 H* Calcium 7.3 L Phosphorus Magnesium Total Bilirubin 1.8 H AST 6076 H ALT 2845 H Alkaline Phosphatase 80 Total Protein 5.3 L Albumin 2.5 L Globulin 2.7 Albumin/Globulin Ratio 0.9 L Arterial Blood Potassium 09/01/17 09/01/17 06:11 11:21 WBC 11.0 H RBC 2.72 L Hgb 7.6 L Hct 22.9 L MCV 84.2 MCH 27.8 MCHC 33.0 RDW 16.5 H Plt Count 88 L D MPV 9.5 Neut % (Auto) 89.3 H Lymph % (Auto) 7.2 L [place] % (Auto) 3.1 Eos % (Auto) 0.2 Baso % (Auto) 0.2 Neut # (Auto) 9.8 H Lymph # (Auto) 0.8 L [place] # (Auto) 0.3 Eos # (Auto) 0.0 Baso # (Auto) 0.0 Neutrophils % (Manual) 85 H Band Neutrophils % 6 H Lymphocytes % (Manual) 6 L Reactive Lymphs % 1 H Monocytes % (Manual) 1 Metamyelocytes % 1 H Nucleated RBC % 2 H Toxic Granulation Present Platelet Estimate Decreased L Large Platelets Present Giant Platelets Present Polychromasia Slight Hypochromasia (manual) Slight Poikilocytosis (manual Slight Anisocytosis (manual) Slight Microcytosis (manual) Slight Macrocytosis (manual) Slight Ovalocytes Slight APTT Puncture Site pCO2 pO2 HCO3 ABG pH ABG Total CO2 ABG O2 Saturation ABG Base Excess Christian Test ABG Potassium A-a O2 Difference Respiratory Index Sodium Chloride Glucose Lactate Vent Mode Mechanical Rate FiO2 Tidal Volume PEEP Crit Value Called To Crit Value Called By Crit Value Read Back Blood Gas Notified Time Potassium Carbon Dioxide Anion Gap BUN Creatinine Est GFR ( Amer) Est GFR (Non-Af Amer) POC Glucose (mg/dL) 300 H Random Glucose Lactic Acid Calcium Phosphorus Magnesium Total Bilirubin AST ALT Alkaline Phosphatase Total Protein Albumin Globulin Albumin/Globulin Ratio Arterial Blood Potassium Fingerstick Blood Sugar Results: 300 Review of Systems - Review of Systems Systems not reviewed;Unavailable: Intubated Assessment/Plan (1) Cardiac arrest Assessment and plan: Neruo: no sedation, alert, not following commands, making puposeful movements. Pulm: acute respiratory failure on vent. CV: NSTEMI, continue heparin gtt. EF - 30%. Hem: ASA for CAD, Procrit for anemia, iron tid for anemia of chronic disease. Renal: dialysis today and prn. Endo: SISS for coverage GI: [email or web address] ID: [email or web address] coverage for suspected Aztreonam, Moxifloxacin, Flagyl. GI proph - protonix DVT proph - heparin gtt full code Critical Care time 35 minutes Current Visit: Yes Status: Acute - Assessment and Plan (Free Text) Assessment: Neuro: Pulm: CV: Hem: Renal: Endo: GI: ID: [email or web address] proph - GI proph - huerta for strict I/O's during acute illness Code status - Critical Care Time spent Multi-disciplinary rounds were performed with house staff, nursing, speech therapy, respiratory therapy, pharmacy and nutrition with integrated input from the primary team/attending and other consulting services. The documented time is cumulative and includes review of patient data/exams/labs/chart review and examination of the patient on rounds and throughout the day; time is exclusive of any procedures or teaching time.
[2017-09-01] MEDS: (Lantus) Insulin Glargine, Recombinant SC SCH (21:36)
[2017-09-02] MEDS: Moxifloxacin IV 400mg/250ml NS 400 MG/250 ML BAG IVPB SCH (00:24)
[2017-09-02] MEDS: (Novolog) Insulin Aspart, Recombinant 100 u/ml 10 ml vial SC SCH ×4 (00:27→18:00)
[2017-09-02] MEDS: Aztreonam 1 GM in Sodium Chloride 0.9% 100 ML IVPB SCH ×2 (01:42→12:43)
[2017-09-02] MEDS: metroNIDAZOLE IV 500 mg/100 ml 500 MG/100 ML BAG IVPB SCH ×3 (05:35→21:50)
[2017-09-02 05:40] LABS: ABG ALLEN TEST POS; ARTERIAL BLOOD GAS HCO3 25.3 mmol/L (21-28); ARTERIAL BLOOD GAS HEMOGLOBIN 7.8 g/dL (11.7-17.4); ARTERIAL BLOOD GAS O2 SAT 99.8 % (95-98); ARTERIAL BLOOD GAS PCO2 30 mm/Hg (35-45); ARTERIAL BLOOD GAS PO2 145 mm/Hg (80-100); ARTERIAL BLOOD GAS TCO2 24.3 mmol/L (22-28)
[2017-09-02 06:59] LABS: BASO % 0.2 % (0.0-2.0); EOS % 0.1 % (0.0-4.0); HEMOGLOBIN 7.8 g/dL (11.0-16.0); LYMPH # 1.1 K/uL (1.0-4.3); LYMPH % 8.2 % (20.0-40.0); MEAN CELL VOLUME 84.9 fL (81.0-99.0); MEAN CORPUSCULAR HEMOGLOBIN 27.8 pg (27.0-31.0); MEAN CORPUSCULAR HGB CONC 32.7 g/dL (33.0-37.0); MEAN PLATELET VOLUME 9.6 fL (7.2-11.7); MONO # 0.7 K/uL (0.0-0.8); NEUT # 11.6 K/uL (1.8-7.0); NEUT % 86.5 % (50.0-75.0); NRBC % 3.4 % (0.0-2.0); PLATELET COUNT 102 K/uL (130-400); RED CELL DISTRIBUTION WIDTH 16.8 % (11.5-14.5); WHITE BLOOD COUNT 13.4 K/uL (4.8-10.8)
[2017-09-02 07:17] LABS: ALB/GLOB RATIO 0.9 (1.0-2.1); ALBUMIN 2.5 g/dL (3.5-5.0); CALCIUM 7.6 mg/dl (8.6-10.4)
[2017-09-02] MEDS: Multivitamin Vitamin B Complex (Nephro-Vite) Tab PO SCH (07:59)
--- NOTE | 2017-09-02 08:34 | RAD ---
HISTORY: intubated COMPARISON: 09/01/2017 09/01/2017 FINDINGS: LUNGS: No active pulmonary disease. PLEURA: Small left pleural effusion. No pneumothorax. No right pleural effusion. CARDIOVASCULAR: Normal heart size. ET tube, NG tube and right multi lumen internal jugular central venous catheter are unchanged. OSSEOUS STRUCTURES: No significant abnormalities. VISUALIZED UPPER ABDOMEN: Normal. OTHER FINDINGS: None. IMPRESSION: Small left pleural effusion. Lines and tubes are unchanged.
[2017-09-02 08:48] LABS: ANISOCYTOSIS SLIGHT; LYMPHOCYTE 6 % (20-40); MONOCYTE 8 % (0-10); NEUTROPHIL 86 % (50-75); NUCLEATED RED BLOOD CELL 3 % (0-0); PLATELET ESTIMATE SLIGHTLY DECREASED (NORMAL); POIKILOCYTOSIS SLIGHT; TOTAL CELLS COUNTED 100
[2017-09-02 08:49] LABS: BURR CELLS SLIGHT; GIANT PLATELETS PRESENT; HYPOCHROMIC SLIGHT; LARGE PLATELETS PRESENT; TARGET CELLS SLIGHT
[2017-09-02 08:50] LABS: POLYCHROMIC SLIGHT
[2017-09-02] MEDS ORDERED: EPOETIN ALFA 4,000 UNIT/ML ML Dialysis IV SCH (10:13)
--- NOTE | 2017-09-02 10:40 | CP.CCUPN ---
CCU Subjective - Physician Review Subjective (Free Text): 08/30/17 15:06 Patient seen and examined at bedside AMS spoke with nephro and want to wait for diaylsis until cardio decides to do cath or not 08/30/17 17:16 PMD talked with cardio and Nephro. Medical managment for cardiac issues at this time. OK to go ahead with dialysis. First session tonight 09/02/17 10:35 Over weekend patient had Vfib arrest tolerated dialysis for 45 min before becoming hypotensive Patient will again have dialysis today Giving blood today CCU Objective - Vital Signs / Intake & Output Intake and Output (Last 8hrs): Intake & Output 09/01/17 09/02/17 09/02/17 22:59 06:59 14:59 Intake Total 816.1 730.0 Output Total 0 0 Balance 816.1 730.0 Weight 140 lb 6 oz Intake: IV 68 Intake, IV Amount 548.1 530.0 Right Forearm 200 Right Hand 90.0 80.0 Right Internal Jugular 100 450 distal 133.6 0 medial 24.5 Tube Feeding 200 200 Output: Urine 0 0 Urethral (Cleaning) 0 0 Other: # Bowel Movements 0 1 - Physical Exam Head: Positive for: Atraumatic, Normocephalic. Negative for: Tenderness, Contusion, Swelling Pupils: Positive for: PERRL. Negative for: Sluggish, Non-Reactive Extroacular Muscles: Positive for: EOMI Conjunctiva: Positive for: Normal Mouth: Positive for: Dry Pharnyx: Positive for: Normal Nose (External): Positive for: Atraumatic Neck: Positive for: Trachea Midline. Negative for: JVD Respiratory/Chest: Positive for: Good Air Exchange, Accessory Muscle Use, Decreased Breath Sounds (on bilateral bases). Negative for: Wheezes Cardiovascular: Positive for: Tachycardic Abdomen: Positive for: Distention, Normal Bowel Sounds. Negative for: Peritoneal Signs Upper Extremity: Negative for: Cyanosis, Edema Lower Extremity: Negative for: Edema Psychiatric: Positive for: Alert - Medications Active Medications: Active Medications Generic Name Dose Route Start Last Admin Trade Name Freq PRN Reason Stop Dose Admin Aspirin 81 mg 08/30/17 10:00 09/02/17 10:13 Aspirin Chewable PO 81 mg DAILY [facility] Administration Calcium Acetate 667 mg 08/30/17 14:00 09/02/17 10:13 Phoslo PO 667 mg TID [facility] Administration Epoetin Alan 8,000 unit 09/02/17 10:13 Procrit IV MWF [facility] Ergocalciferol 1 cap 08/31/17 14:45 08/31/17 13:51 Drisdol 50,000 Intl Units Cap PO 1 cap Q7D [facility] Administration Ferrous Gluconate 324 mg 08/31/17 10:00 09/02/17 10:13 Fergon PO 324 mg TID [facility] Administration Aztreonam 1 gm/ Sodium 100 mls @ 100 mls/hr 08/31/17 13:30 09/02/17 01:42 Chloride IVPB 100 mls/hr Q12H [facility] Administration Metronidazole 500 mg in 100 mls @ 100 mls/hr 08/31/17 14:30 09/02/17 05:35 Flagyl IVPB 100 mls/hr Q8H [facility] Administration Heparin Sodium/Sodium Chloride 25,000 units in 250 mls @ 7.641 mls/hr 08:30 Heparin 13340 Units/250ml 1/2 Normal Saline IV .Q24H PRN PROTOCOL Protocol 12 UNIT/KG/HR Insulin Aspart 0 unit 09/01/17 11:49 09/02/17 05:34 Novolog SC 4 unit Q6 [facility] Administration Protocol Insulin Glargine 15 unit 08/30/17 22:00 09/01/17 21:36 Lantus SC 15 u HS [facility] Administration Metoprolol Tartrate 12.5 mg 09/02/17 22:00 Lopressor PO BID [facility] Pantoprazole Sodium 40 mg 09/02/17 10:00 09/02/17 10:13 Protonix Inj IVP 40 mg DAILY [facility] Administration Rosuvastatin Calcium 5 mg 08/30/17 01:15 09/01/17 21:35 Crestor PO 5 mg HS [facility] Administration Vitamin B Complex/Vit C/Folic Acid 1 tab 08/31/17 08:00 09/02/17 07:59 Nephro-Kamron PO 1 tab 0800 [facility] Administration - Patient Studies Lab Studies: Microbiology Studies 08/29/17 06:30 Blood Culture - Preliminary Blood-Venous NO GROWTH AFTER 3 DAYS 08/29/17 06:00 Blood Culture - Preliminary Blood-Venous NO GROWTH AFTER 3 DAYS Lab Studies 09/02/17 09/02/1709/02/18 Range/Units 06:54 06:54 05:30 WBC 13.4 H (4.8-10.8) K/uL RBC 2.80 L (3.80-5.20) Mil/uL Hgb 7.8 L (11.0-16.0) g/dL Hct 23.8 L (34.0-47.0) % MCV 84.9 (81.0-99.0) fL MCH 27.8 (27.0-31.0) pg MCHC 32.7 L (33.0-37.0) g/dL RDW 16.8 H (11.5-14.5) % Plt Count 102 L (130-400) K/uL MPV 9.6 (7.2-11.7) fL Neut % (Auto) 86.5 H (50.0-75.0) % Lymph % (Auto) 8.2 L (20.0-40.0) % [place] % (Auto) 5.0 (0.0-10.0) % Eos % (Auto) 0.1 (0.0-4.0) % Baso % (Auto) 0.2 (0.0-2.0) % Neut # (Auto) 11.6 H (1.8-7.0) K/uL Lymph # (Auto) 1.1 (1.0-4.3) K/uL [place] # (Auto) 0.7 (0.0-0.8) K/uL Eos # (Auto) 0.0 (0.0-0.7) K/uL Baso # (Auto) 0.0 (0.0-0.2) K/uL Neutrophils % (Manual) 86 H (50-75) % Lymphocytes % (Manual) 6 L (20-40) % Monocytes % (Manual) 8 (0-10) % Nucleated RBC % 3 H (0-0) % Platelet Estimate Slightly decreased L (NORMAL) Large Platelets Present Giant Platelets Present Polychromasia Slight Hypochromasia (manual) Slight Poikilocytosis (manual Slight Anisocytosis (manual) Slight Macrocytosis (manual) Slight Target Cells Slight Elías Cells Slight APTT (21-34) SECONDS Puncture Site pCO2 (35-45) mm/Hg pO2 (80-100) mm/Hg HCO3 (21-28) mmol/L ABG pH (7.35-7.45) ABG Total CO2 (22-28) mmol/L ABG O2 Saturation (95-98) % ABG Base Excess (-2.0-3.0) mmol/L ABG Hemoglobin (11.7-17.4) g/dL ABG Carboxyhemoglobin (0.5-1.5) % POC ABG HHb (Measured) (0.0-5.0) % ABG Methemoglobin (0.0-3.0) % Christian Test A-a O2 Difference mm/Hg Respiratory Index Hgb O2 Saturation (95.0-98.0) % Vent Mode Mechanical Rate FiO2 % Tidal Volume PEEP Sodium 139 (132-148) mmol/L Potassium 3.5 L (3.6-5.2) mmol/L Chloride 102 (98-107) mmol/L Carbon Dioxide 25 (22-30) mmol/L Anion Gap 16 (10-20) BUN 67 H (7-17) mg/dL Creatinine 4.6 H (0.7-1.2) mg/dL Est GFR ( Amer) 11 Est GFR (Non-Af Amer) 9 POC Glucose (mg/dL) 231 H (65-110) mg/dL Random Glucose 227 H (65-105) mg/dL Calcium 7.6 L (8.6-10.4) mg/dl Total Bilirubin 1.3 (0.2-1.3) mg/dL AST 1253 H (14-36) U/L ALT 2074 H (9-52) U/L Alkaline Phosphatase 123 (38-126) U/L Total Protein 5.4 L (6.3-8.3) g/dL Albumin 2.5 L (3.5-5.0) g/dL Globulin 2.9 (2.2-3.9) gm/dL Albumin/Globulin Ratio 0.9 L (1.0-2.1) PTH Intact Whole Molec (14-64) pg/mL 09/02/17 09/02/17 09/01/17 Range/Units 05:14 05:14 23:46 WBC (4.8-10.8) K/uL RBC (3.80-5.20) Mil/uL Hgb (11.0-16.0) g/dL Hct (34.0-47.0) % MCV (81.0-99.0) fL MCH (27.0-31.0) pg MCHC (33.0-37.0) g/dL RDW (11.5-14.5) % Plt Count (130-400) K/uL MPV (7.2-11.7) fL Neut % (Auto) (50.0-75.0) % Lymph % (Auto) (20.0-40.0) % [place] % (Auto) (0.0-10.0) % Eos % (Auto) (0.0-4.0) % Baso % (Auto) (0.0-2.0) % Neut # (Auto) (1.8-7.0) K/uL Lymph # (Auto) (1.0-4.3) K/uL [place] # (Auto) (0.0-0.8) K/uL Eos # (Auto) (0.0-0.7) K/uL Baso # (Auto) (0.0-0.2) K/uL Neutrophils % (Manual) (50-75) % Lymphocytes % (Manual) (20-40) % Monocytes % (Manual) (0-10) % Nucleated RBC % (0-0) % Platelet Estimate (NORMAL) Large Platelets Giant Platelets Polychromasia Hypochromasia (manual) Poikilocytosis (manual Anisocytosis (manual) Macrocytosis (manual) Target Cells Elías Cells APTT 73 H D (21-34) SECONDS Puncture Site Rr pCO2 30 L (35-45) mm/Hg pO2 145 H (80-100) mm/Hg HCO3 25.3 (21-28) mmol/L ABG pH 7.50 H (7.35-7.45) ABG Total CO2 24.3 (22-28) mmol/L ABG O2 Saturation 99.8 H (95-98) % ABG Base Excess 0.4 (-2.0-3.0) mmol/L ABG Hemoglobin 7.8 L (11.7-17.4) g/dL ABG Carboxyhemoglobin 1.8 H (0.5-1.5) % POC ABG HHb (Measured) 0.2 (0.0-5.0) % ABG Methemoglobin 0.7 (0.0-3.0) % Christian Test Pos A-a O2 Difference 103.0 mm/Hg Respiratory Index 0.7 Hgb O2 Saturation 97.3 (95.0-98.0) % Vent Mode Prvc Mechanical Rate 16 FiO2 40.0 % Tidal Volume 500 PEEP 5 Sodium (132-148) mmol/L Potassium (3.6-5.2) mmol/L Chloride (98-107) mmol/L Carbon Dioxide (22-30) mmol/L Anion Gap (10-20) BUN (7-17) mg/dL Creatinine (0.7-1.2) mg/dL Est GFR ( Amer) Est GFR (Non-Af Amer) POC Glucose (mg/dL) 234 H (65-110) mg/dL Random Glucose (65-105) mg/dL Calcium (8.6-10.4) mg/dl Total Bilirubin (0.2-1.3) mg/dL AST (14-36) U/L ALT (9-52) U/L Alkaline Phosphatase (38-126) U/L Total Protein (6.3-8.3) g/dL Albumin (3.5-5.0) g/dL Globulin (2.2-3.9) gm/dL Albumin/Globulin Ratio (1.0-2.1) PTH Intact Whole Molec (14-64) pg/mL 09/01/17 09/01/17 08/30/17 Range/Units 17:31 11:21 12:19 WBC (4.8-10.8) K/uL RBC (3.80-5.20) Mil/uL Hgb (11.0-16.0) g/dL Hct (34.0-47.0) % MCV (81.0-99.0) fL MCH (27.0-31.0) pg MCHC (33.0-37.0) g/dL RDW (11.5-14.5) % Plt Count (130-400) K/uL MPV (7.2-11.7) fL Neut % (Auto) (50.0-75.0) % Lymph % (Auto) (20.0-40.0) % [place] % (Auto) (0.0-10.0) % Eos % (Auto) (0.0-4.0) % Baso % (Auto) (0.0-2.0) % Neut # (Auto) (1.8-7.0) K/uL Lymph # (Auto) (1.0-4.3) K/uL [place] # (Auto) (0.0-0.8) K/uL Eos # (Auto) (0.0-0.7) K/uL Baso # (Auto) (0.0-0.2) K/uL Neutrophils % (Manual) (50-75) % Lymphocytes % (Manual) (20-40) % Monocytes % (Manual) (0-10) % Nucleated RBC % (0-0) % Platelet Estimate (NORMAL) Large Platelets Giant Platelets Polychromasia Hypochromasia (manual) Poikilocytosis (manual Anisocytosis (manual) Macrocytosis (manual) Target Cells [place] Cells APTT (21-34) SECONDS Puncture Site pCO2 (35-45) mm/Hg pO2 (80-100) mm/Hg HCO3 (21-28) mmol/L ABG pH (7.35-7.45) ABG Total CO2 (22-28) mmol/L ABG O2 Saturation (95-98) % ABG Base Excess (-2.0-3.0) mmol/L ABG Hemoglobin (11.7-17.4) g/dL ABG Carboxyhemoglobin (0.5-1.5) % POC ABG HHb (Measured) (0.0-5.0) % ABG Methemoglobin (0.0-3.0) % Christian Test A-a O2 Difference mm/Hg Respiratory Index Hgb O2 Saturation (95.0-98.0) % Vent Mode Mechanical Rate FiO2 % Tidal Volume PEEP Sodium (132-148) mmol/L Potassium (3.6-5.2) mmol/L Chloride (98-107) mmol/L Carbon Dioxide (22-30) mmol/L Anion Gap (10-20) BUN (7-17) mg/dL Creatinine (0.7-1.2) mg/dL Est GFR ( Amer) Est GFR (Non-Af Amer) POC Glucose (mg/dL) 214 H 300 H (65-110) mg/dL Random Glucose (65-105) mg/dL Calcium (8.6-10.4) mg/dl Total Bilirubin (0.2-1.3) mg/dL AST (14-36) U/L ALT (9-52) U/L Alkaline Phosphatase (38-126) U/L Total Protein (6.3-8.3) g/dL Albumin (3.5-5.0) g/dL Globulin (2.2-3.9) gm/dL Albumin/Globulin Ratio (1.0-2.1) PTH Intact Whole Molec 1119 H (14-64) pg/mL Laboratory Results - last 24 hr 08/30/17 09/01/17 09/01/17 12:19 11:21 17:31 WBC RBC Hgb Hct MCV MCH MCHC RDW Plt Count MPV Neut % (Auto) Lymph % (Auto) [place] % (Auto) Eos % (Auto) Baso % (Auto) Neut # (Auto) Lymph # (Auto) [place] # (Auto) Eos # (Auto) Baso # (Auto) Neutrophils % (Manual) Lymphocytes % (Manual) Monocytes % (Manual) Nucleated RBC % Platelet Estimate Large Platelets Giant Platelets Polychromasia Hypochromasia (manual) Poikilocytosis (manual Anisocytosis (manual) Macrocytosis (manual) Target Cells Elías Cells APTT Puncture Site pCO2 pO2 HCO3 ABG pH ABG Total CO2 ABG O2 Saturation ABG Base Excess ABG Hemoglobin ABG Carboxyhemoglobin POC ABG HHb (Measured) ABG Methemoglobin Christian Test A-a O2 Difference Respiratory Index Hgb O2 Saturation Vent Mode Mechanical Rate FiO2 Tidal Volume PEEP Sodium Potassium Chloride Carbon Dioxide Anion Gap BUN Creatinine Est GFR ( Amer) Est GFR (Non-Af Amer) POC Glucose (mg/dL) 300 H 214 H Random Glucose Calcium Total Bilirubin AST ALT Alkaline Phosphatase Total Protein Albumin Globulin Albumin/Globulin Ratio PTH Intact Whole Molec 1119 H 09/01/17 09/02/17 09/02/17 23:46 05:14 05:14 WBC RBC Hgb Hct MCV MCH MCHC RDW Plt Count MPV Neut % (Auto) Lymph % (Auto) [place] % (Auto) Eos % (Auto) Baso % (Auto) Neut # (Auto) Lymph # (Auto) [place] # (Auto) Eos # (Auto) Baso # (Auto) Neutrophils % (Manual) Lymphocytes % (Manual) Monocytes % (Manual) Nucleated RBC % Platelet Estimate Large Platelets Giant Platelets Polychromasia Hypochromasia (manual) Poikilocytosis (manual Anisocytosis (manual) Macrocytosis (manual) Target Cells Elías Cells APTT 73 H D Puncture Site Rr pCO2 30 L pO2 145 H HCO3 25.3 ABG pH 7.50 H ABG Total CO2 24.3 ABG O2 Saturation 99.8 H ABG Base Excess 0.4 ABG Hemoglobin 7.8 L ABG Carboxyhemoglobin 1.8 H POC ABG HHb (Measured) 0.2 ABG Methemoglobin 0.7 Christian Test Pos A-a O2 Difference 103.0 Respiratory Index 0.7 Hgb O2 Saturation 97.3 Vent Mode Prvc Mechanical Rate 16 FiO2 40.0 Tidal Volume 500 PEEP 5 Sodium Potassium Chloride Carbon Dioxide Anion Gap BUN Creatinine Est GFR ( Amer) Est GFR (Non-Af Amer) POC Glucose (mg/dL) 234 H Random Glucose Calcium Total Bilirubin AST ALT Alkaline Phosphatase Total Protein Albumin Globulin Albumin/Globulin Ratio PTH Intact Whole Molec 09/02/17 09/02/17 09/02/17 05:30 06:54 06:54 WBC 13.4 H RBC 2.80 L Hgb 7.8 L Hct 23.8 L MCV 84.9 MCH 27.8 MCHC 32.7 L RDW 16.8 H Plt Count 102 L MPV 9.6 Neut % (Auto) 86.5 H Lymph % (Auto) 8.2 L [place] % (Auto) 5.0 Eos % (Auto) 0.1 Baso % (Auto) 0.2 Neut # (Auto) 11.6 H Lymph # (Auto) 1.1 [place] # (Auto) 0.7 Eos # (Auto) 0.0 Baso # (Auto) 0.0 Neutrophils % (Manual) 86 H Lymphocytes % (Manual) 6 L Monocytes % (Manual) 8 Nucleated RBC % 3 H Platelet Estimate Slightly decreased L Large Platelets Present Giant Platelets Present Polychromasia Slight Hypochromasia (manual) Slight Poikilocytosis (manual Slight Anisocytosis (manual) Slight Macrocytosis (manual) Slight Target Cells Slight [place] Cells Slight APTT Puncture Site pCO2 pO2 HCO3 ABG pH ABG Total CO2 ABG O2 Saturation ABG Base Excess ABG Hemoglobin ABG Carboxyhemoglobin POC ABG HHb (Measured) ABG Methemoglobin Christian Test A-a O2 Difference Respiratory Index Hgb O2 Saturation Vent Mode Mechanical Rate FiO2 Tidal Volume PEEP Sodium 139 Potassium 3.5 L Chloride 102 Carbon Dioxide 25 Anion Gap 16 BUN 67 H Creatinine 4.6 H Est GFR ( Amer) 11 Est GFR (Non-Af Amer) 9 POC Glucose (mg/dL) 231 H Random Glucose 227 H Calcium 7.6 L Total Bilirubin 1.3 AST 1253 H ALT 2074 H Alkaline Phosphatase 123 Total Protein 5.4 L Albumin 2.5 L Globulin 2.9 Albumin/Globulin Ratio 0.9 L PTH Intact Whole Molec Fingerstick Blood Sugar Results: 234 Assessment/Plan - Assessment and Plan (Free Text) Assessment: 76F w/ NSTEMI, CKD, s/p vfib arrest Plan: Neuro: No sedation, Lethargic Cardio: NSTEMI. S/p Vfib arrest, Repat ECHO today. Will give blood as pateitn will require higher hgb given recent events. Cardio has signed off the case. Patient will need cardiac cath when more stable. Will reach out to cardio after repeat ECHO. Continue heparin drip. D/c amiodarone after shock liver Pulm: Intubated after code. Remained intubated. Too unstable to extubate today. Patient is also getting blood products today so will not attempt CPAP Duonediomedes PRN GI: Nephro. @ goal. Renal: AVF clotted. Dialysis cath place in [place]. Will attempt dialysis today Endo: DM, insulin aspart Q6, accuchecks PPX: heparin drip, GI PPX not indicated
[2017-09-02] MEDS: Heparin25000 units/250ml 1/2NS 25,000 UNITS/250 ML BAG IV PRN (11:11)
--- NOTE | 2017-09-02 14:53 | CP.PCM.PN ---
Subjective - Date & Time of Evaluation Date of Evaluation: 09/02/17 Time of Evaluation: 02:35 - Subjective Subjective: Patient was seen and examined by me. She remains intubated on PRVC settings at this time. Not on pressor medications at this time. She was able to open her eyes as well as lift both her arms bilaterally for a very brief period of time As mentioned previously the patient has a history of ESRD and was not on HD, Hx of DM, HTN, previous MS as well as TIA, and colon cancer. She was brought in by family due to alter mental status and reportedly had chest pain since the previous day before coming to hospital. She was found to be in severe metabolic acidosis and a severely elevated troponin of 103. Objective - Vital Signs/Intake and Output Vital Signs (last 24 hours): Temp Pulse Resp BP Pulse Ox 97.4 F L 105 H 16 118/65 95 09/02/17 12:00 09/02/17 12:00 09/02/17 12:00 09/02/17 11:48 09/02/17 12:00 Intake and Output: 09/02/17 09/02/17 06:59 18:59 Intake Total 1056.8 360 Output Total 0 Balance 1056.8 360 - Medications Medications: Current Medications Aspirin (Aspirin Chewable) 81 mg PO DAILY [facility] Last Admin: 09/02/17 10:13 Dose: 81 mg Calcium Acetate (Phoslo) 667 mg PO TID [facility] Last Admin: 09/02/17 14:21 Dose: 667 mg Epoetin Alan (Procrit) 8,000 unit IV MWF [facility] Ergocalciferol (Drisdol 50,000 Intl Units Cap) 1 cap PO Q7D [facility] Last Admin: 08/31/17 13:51 Dose: 1 cap Ferrous Gluconate (Fergon) 324 mg PO TID [facility] Last Admin: 09/02/17 14:21 Dose: 324 mg Aztreonam 1 gm/ Sodium (Chloride) 100 mls @ 100 mls/hr IVPB Q12H [facility] Last Admin: 09/02/17 12:43 Dose: 100 mls/hr Metronidazole (Flagyl) 500 mg in 100 mls @ 100 mls/hr IVPB Q8H [facility] Last Admin: 09/02/17 14:21 Dose: 100 mls/hr Heparin Sodium/Sodium Chloride (Heparin 81223 Units/250ml 1/2 Normal Saline) 25 ,000 units in 250 mls @ 7.641 mls/hr IV .Q24H PRN; Protocol; 12 UNIT/KG/HR PRN Reason: PROTOCOL Last Titration: 09/02/17 11:12 Dose: 15.7 unit/kg/hr, 10 mls/hr Insulin Aspart (Novolog) 0 unit SC Q6 [facility] PRN Reason: Protocol Last Admin: 09/02/17 12:43 Dose: 2 unit Insulin Glargine (Lantus) 15 unit SC HS [facility] Last Admin: 09/01/17 21:36 Dose: 15 u Metoprolol Tartrate (Lopressor) 12.5 mg PO BID [facility] Pantoprazole Sodium (Protonix Inj) 40 mg IVP DAILY [facility] Last Admin: 09/02/17 10:13 Dose: 40 mg Rosuvastatin Calcium (Crestor) 5 mg PO HS [facility] Last Admin: 09/01/17 21:35 Dose: 5 mg Vitamin B Complex/Vit C/Folic Acid (Nephro-Kamron) 1 tab PO 0800 [facility] Last Admin: 09/02/17 07:59 Dose: 1 tab - Labs Labs: 09/02/17 06:54 09/02/17 06:54 PT 14.6 SECONDS (9.7-12.2) H 08/30/17 02:17 INR 1.3 08/30/17 02:17 APTT 73 SECONDS (21-34) H D 09/02/17 05:14 - Constitutional Appears: Toxic, Confused, Chronically Ill - ENT Exam ENT Exam: Mucous Membranes Moist - Respiratory Exam Respiratory Exam: Decreased Breath Sounds, Rales, Rhonchi - Cardiovascular Exam Cardiovascular Exam: REGULAR RHYTHM - GI/Abdominal Exam GI & Abdominal Exam: Soft, Normal Bowel Sounds - Neurological Exam Neurological Exam: Alert, Altered, Awake. absent: Abnormal Gait, CN II-XII Intact, Normal Gait, Oriented x3, Reflexes Normal Neuro motor strength exam: Left Upper Extremity: 3, Right Upper Extremity: 3 - Psychiatric Exam Psychiatric exam: Normal Affect, Normal Mood - Skin Skin Exam: Normal Color, Warm Assessment and Plan - Assessment and Plan (Free Text) Assessment: As previously mentioned, this is a 76 year old female with a history of ESRD now getting HD, CHF, DM, HTN, hypercholesterolemia, and some sort of MS years before, repeated TIAs, and colon CA. She was brought in by family for altered mental status and ultimately found to have severe metabolic acidosis as well as a extremely elevated troponins. Plan: 1 Acute NSTEMI , S/P Hypotension/Asystol ,CPR/Sustained VT/Intubation 09/02/2017: Now off pressor medications. She remains on amiodarone Echo EF 30%. Troponins were as high as 103 then decreased. Currently on a heparin ggt, ASA, Statin. 2.Acute renal failure and Anuria 09/02/2017: She has had one session of HD so far. Likley another session today 3. Leukocytosis concerning for sepsis 09/02/2017: The elevated WBC maybe stress related. She remains on abx Aztreonam IV and Flagyl IV 4.Acute systolic heart failure Possible myocarditis,continue heparin and asprin ECHO shows EF 30% 5 .Pleural effusion,r/o pneumonia 09/02/2017: Pleural effusions minimal at this time. Continue to monitor D/W email production consultant Her effusion is likely cardiac. No plan for tap follow chest x ray and dialysis 6.Hyperglycemia and uncontrolled DM continue Lantus and monitor sugar 7.Anemia likely due to CRF anemia work up 8.Code status -full code
--- NOTE | 2017-09-02 14:54 | CP.PCM.CON ---
History of Present Illness - History of Present Illness History of Present Illness: dictated Past Patient History - Infectious Disease Hx of Infectious Diseases: None - Tetanus Immunizations Tetanus Immunization: Unknown - Past Medical History & Family History Past Medical History?: Yes - Past Social History Smoking Status: Former Smoker - CARDIAC Hx Hypercholesterolemia: Yes Hx Hypertension: Yes Hx Peripheral Edema: Yes - PULMONARY Hx Asthma: Yes (Dx 15 yrs ago,does not use home o2 anymore) Hx Pneumonia: Yes (x2) - NEUROLOGICAL Hx Transient Ischemic Attacks (TIA): Yes (x3 about 20 yrs ago, 10 yrs ago, 7 yrs ago) - HEENT Hx HEENT Problems: Yes Hx Cataracts: Yes - RENAL Hx Chronic Kidney Disease: Yes - ENDOCRINE/METABOLIC Hx Diabetes Mellitus Type 1: Yes - HEMATOLOGICAL/ONCOLOGICAL Hx Anemia: Yes - INTEGUMENTARY Hx Dermatological Problems: No - MUSCULOSKELETAL/RHEUMATOLOGICAL Hx Arthritis: Yes Hx Fractures: Yes (Right ankle) - GASTROINTESTINAL Hx Gastrointestinal Disorders: Yes Other/Comment: Hx colon cancer - GENITOURINARY/GYNECOLOGICAL Hx Genitourinary Disorders: Yes Other/Comment: Colon CA - PSYCHIATRIC Hx Depression: No Hx Substance Use: No - SURGICAL HISTORY Hx Cataract Extraction: Yes (LEFT) - ANESTHESIA Hx Anesthesia: Yes Hx Anesthesia Reactions: No Hx Malignant Hyperthermia: No Meds Allergies/Adverse Reactions: Allergies Allergy/AdvReac Type Severity Reaction Status Date / Time Penicillins Allergy Intermediate RASH Verified 08/29/17 20:11 - Medications Medications: Current Medications Aspirin (Aspirin Chewable) 81 mg PO DAILY [facility] Last Admin: 09/02/17 10:13 Dose: 81 mg Calcium Acetate (Phoslo) 667 mg PO TID [facility] Last Admin: 09/02/17 14:21 Dose: 667 mg Epoetin Alan (Procrit) 8,000 unit IV MWF [facility] Ergocalciferol (Drisdol 50,000 Intl Units Cap) 1 cap PO Q7D [facility] Last Admin: 08/31/17 13:51 Dose: 1 cap Ferrous Gluconate (Fergon) 324 mg PO TID [facility] Last Admin: 09/02/17 14:21 Dose: 324 mg Aztreonam 1 gm/ Sodium (Chloride) 100 mls @ 100 mls/hr IVPB Q12H [facility] Last Admin: 09/02/17 12:43 Dose: 100 mls/hr Metronidazole (Flagyl) 500 mg in 100 mls @ 100 mls/hr IVPB Q8H [facility] Last Admin: 09/02/17 14:21 Dose: 100 mls/hr Heparin Sodium/Sodium Chloride (Heparin 71780 Units/250ml 1/2 Normal Saline) 25 ,000 units in 250 mls @ 7.641 mls/hr IV .Q24H PRN; Protocol; 12 UNIT/KG/HR PRN Reason: PROTOCOL Last Titration: 09/02/17 11:12 Dose: 15.7 unit/kg/hr, 10 mls/hr Insulin Aspart (Novolog) 0 unit SC Q6 [facility] PRN Reason: Protocol Last Admin: 09/02/17 12:43 Dose: 2 unit Insulin Glargine (Lantus) 15 unit SC HS [facility] Last Admin: 09/01/17 21:36 Dose: 15 u Metoprolol Tartrate (Lopressor) 12.5 mg PO BID [facility] Pantoprazole Sodium (Protonix Inj) 40 mg IVP DAILY [facility] Last Admin: 09/02/17 10:13 Dose: 40 mg Rosuvastatin Calcium (Crestor) 5 mg PO HS [facility] Last Admin: 09/01/17 21:35 Dose: 5 mg Vitamin B Complex/Vit C/Folic Acid (Nephro-Kamron) 1 tab PO 0800 [facility] Last Admin: 09/02/17 07:59 Dose: 1 tab Results - Vital Signs Recent Vital Signs: Last Vital Signs Temp 97.4 F L 09/02/17 12:00 Pulse 105 H 09/02/17 12:00 Resp 16 09/02/17 12:00 BP 118/65 09/02/17 11:48 Pulse Ox 95 09/02/17 12:00 - Labs Result Diagrams: 09/02/17 06:54 09/02/17 06:54 Labs: Laboratory Results - last 24 hr 08/30/17 09/01/17 09/01/17 12:19 17:31 23:46 WBC RBC Hgb Hct MCV MCH MCHC RDW Plt Count MPV Neut % (Auto) Lymph % (Auto) Knott % (Auto) Eos % (Auto) Baso % (Auto) Neut # (Auto) Lymph # (Auto) Knott # (Auto) Eos # (Auto) Baso # (Auto) Neutrophils % (Manual) Lymphocytes % (Manual) Monocytes % (Manual) Nucleated RBC % Platelet Estimate Large Platelets Giant Platelets Polychromasia Hypochromasia (manual) Poikilocytosis (manual Anisocytosis (manual) Macrocytosis (manual) Target Cells [place] Cells APTT Puncture Site pCO2 pO2 HCO3 ABG pH ABG Total CO2 ABG O2 Saturation ABG Base Excess ABG Hemoglobin ABG Carboxyhemoglobin POC ABG HHb (Measured) ABG Methemoglobin Christian Test A-a O2 Difference Respiratory Index Hgb O2 Saturation Vent Mode Mechanical Rate FiO2 Tidal Volume PEEP Sodium Potassium Chloride Carbon Dioxide Anion Gap BUN Creatinine Est GFR ( Amer) Est GFR (Non-Af Amer) POC Glucose (mg/dL) 214 H 234 H Random Glucose Calcium Phosphorus Magnesium Total Bilirubin AST ALT Alkaline Phosphatase Total Protein Albumin Globulin Albumin/Globulin Ratio PTH Intact Whole Molec 1119 H Blood Type Antibody Screen 09/02/17 09/02/17 09/02/17 05:14 05:14 05:30 WBC RBC Hgb Hct MCV MCH MCHC RDW Plt Count MPV Neut % (Auto) Lymph % (Auto) Knott % (Auto) Eos % (Auto) Baso % (Auto) Neut # (Auto) Lymph # (Auto) Knott # (Auto) Eos # (Auto) Baso # (Auto) Neutrophils % (Manual) Lymphocytes % (Manual) Monocytes % (Manual) Nucleated RBC % Platelet Estimate Large Platelets Giant Platelets Polychromasia Hypochromasia (manual) Poikilocytosis (manual Anisocytosis (manual) Macrocytosis (manual) Target Cells [place] Cells APTT 73 H D Puncture Site Rr pCO2 30 L pO2 145 H HCO3 25.3 ABG pH 7.50 H ABG Total CO2 24.3 ABG O2 Saturation 99.8 H ABG Base Excess 0.4 ABG Hemoglobin 7.8 L ABG Carboxyhemoglobin 1.8 H POC ABG HHb (Measured) 0.2 ABG Methemoglobin 0.7 Christian Test Pos A-a O2 Difference 103.0 Respiratory Index 0.7 Hgb O2 Saturation 97.3 Vent Mode Prvc Mechanical Rate 16 FiO2 40.0 Tidal Volume 500 PEEP 5 Sodium Potassium Chloride Carbon Dioxide Anion Gap BUN Creatinine Est GFR ( Amer) Est GFR (Non-Af Amer) POC Glucose (mg/dL) 231 H Random Glucose Calcium Phosphorus Magnesium Total Bilirubin AST ALT Alkaline Phosphatase Total Protein Albumin Globulin Albumin/Globulin Ratio PTH Intact Whole Molec Blood Type Antibody Screen 03/11/1509/02/17 09/02/17 06:54 06:54 11:43 WBC 13.4 H RBC 2.80 L Hgb 7.8 L Hct 23.8 L MCV 84.9 MCH 27.8 MCHC 32.7 L RDW 16.8 H Plt Count 102 L MPV 9.6 Neut % (Auto) 86.5 H Lymph % (Auto) 8.2 L Knott % (Auto) 5.0 Eos % (Auto) 0.1 Baso % (Auto) 0.2 Neut # (Auto) 11.6 H Lymph # (Auto) 1.1 Knott # (Auto) 0.7 Eos # (Auto) 0.0 Baso # (Auto) 0.0 Neutrophils % (Manual) 86 H Lymphocytes % (Manual) 6 L Monocytes % (Manual) 8 Nucleated RBC % 3 H Platelet Estimate Slightly decreased L Large Platelets Present Giant Platelets Present Polychromasia Slight Hypochromasia (manual) Slight Poikilocytosis (manual Slight Anisocytosis (manual) Slight Macrocytosis (manual) Slight Target Cells Slight Elías Cells Slight APTT Puncture Site pCO2 pO2 HCO3 ABG pH ABG Total CO2 ABG O2 Saturation ABG Base Excess ABG Hemoglobin ABG Carboxyhemoglobin POC ABG HHb (Measured) ABG Methemoglobin Christian Test A-a O2 Difference Respiratory Index Hgb O2 Saturation Vent Mode Mechanical Rate FiO2 Tidal Volume PEEP Sodium 139 Potassium 3.5 L Chloride 102 Carbon Dioxide 25 Anion Gap 16 BUN 67 H Creatinine 4.6 H Est GFR ( Amer) 11 Est GFR (Non-Af Amer) 9 POC Glucose (mg/dL) 195 H Random Glucose 227 H Calcium 7.6 L Phosphorus 3.7 Magnesium 1.9 Total Bilirubin 1.3 AST 1253 H ALT 2074 H Alkaline Phosphatase 123 Total Protein 5.4 L Albumin 2.5 L Globulin 2.9 Albumin/Globulin Ratio 0.9 L PTH Intact Whole Molec Blood Type Antibody Screen 09/02/17 11:56 WBC RBC Hgb Hct MCV MCH MCHC RDW Plt Count MPV Neut % (Auto) Lymph % (Auto) Knott % (Auto) Eos % (Auto) Baso % (Auto) Neut # (Auto) Lymph # (Auto) Knott # (Auto) Eos # (Auto) Baso # (Auto) Neutrophils % (Manual) Lymphocytes % (Manual) Monocytes % (Manual) Nucleated RBC % Platelet Estimate Large Platelets Giant Platelets Polychromasia Hypochromasia (manual) Poikilocytosis (manual Anisocytosis (manual) Macrocytosis (manual) Target Cells Elías Cells APTT Puncture Site pCO2 pO2 HCO3 ABG pH ABG Total CO2 ABG O2 Saturation ABG Base Excess ABG Hemoglobin ABG Carboxyhemoglobin POC ABG HHb (Measured) ABG Methemoglobin Christian Test A-a O2 Difference Respiratory Index Hgb O2 Saturation Vent Mode Mechanical Rate FiO2 Tidal Volume PEEP Sodium Potassium Chloride Carbon Dioxide Anion Gap BUN Creatinine Est GFR ( Amer) Est GFR (Non-Af Amer) POC Glucose (mg/dL) Random Glucose Calcium Phosphorus Magnesium Total Bilirubin AST ALT Alkaline Phosphatase Total Protein Albumin Globulin Albumin/Globulin Ratio PTH Intact Whole Molec Blood Type O POSITIVE Antibody Screen Negative
--- NOTE | 2017-09-02 15:04 | CP.PCM.PN ---
Subjective - Date & Time of Evaluation Date of Evaluation: 09/02/17 Time of Evaluation: 15:01 - Subjective Subjective: Nephrology Consultation: Assessment: critical CKD stage 5 (N18.5) with hyperkalemia, acidosis ? uremia pulm edema, CHF, NSTEMI, pleural effusions, pneumonia AMS, hyperglycemia s/p cardiac arrest, shock liver, A fib Diabetic chronic Kidney Disease (E11.22) Hypertensive Chronic Kidney Disease (I12.9) Anemia (D64.9), Hyperphosphatemia (E83.39), Secondary Hyperparathyroidism (E21.1 ), HTN (I12.9), vit D insuff, hx of colon CA, TIAs Plan HD today as ordered maintain hemodynamic stable. Patient not on ACEI/ARB due to hyperkalemia initially nd low BP started iron supplements, MVI, epogen with HD, phos binders and Vit D vasc surgery following Dose meds/antibiotics for ESRD/HD status. Avoid fleets enema/magnesium based laxatives. Avoid nephrotoxins/NSAIDs Glycemic control Further work up/management as per primary team Thanks for allowing me to participate in care of your patient. Will follow patient with you. Please call if any Qs. d/w team Dr Edson Norton Office: [phone] Chief Complaint; unable to obtain reason for consult: CKD management source of Info: EMR HPI: Pt is a 76 F with hx of diabetes Mellitus ( years), hypertension (years), CHF, TIA, Colon CA, CKD stage 4/5, has matured AVG in left arm presented with complaints of AMS and hyperglycemia as brought by family. now has elevated trop 100, hyperkalemia, AMS and elevated sugar, pulm edema. renal consult for CKD management. pt with AMS unable to provide any hx. she had received medical management for hyperkalemia. ROS: unable to obtain Physical Examination: General Appearance: ill appearing,intubated Vitals reviewed and noted as below Head; Atraumatic, normocephalic ENT: intubated EYES: PERRLA Neck; supple no lymphadenopathy, no thyromegaly or bruit Lungs: Normal respiratory rate/effort. Breath sounds bilateral clear, she is mechanically ventilated Heart: Normal rate. s1s2 normal. No rub or gallop. Extremities: no edema. No varicose veins. chronic hyperpigmented changes in legs Neurological: Patient is awake Skin: Warm and dry. Normal turgor. No rash. Palpitation: Normal elasticity for age Abdomen: Abdomen is soft. Bowel sounds +. There is no abdominal tenderness, no guarding/rigidity no organomegaly Psych: unable MSK: no joint tenderness or swelling. Digits and nails normal, no deformity : kidney or bladder not palpable Access: Left AVG without bruit. has left IJ shiley Labs/imaging reviewed. Past medical history, past surgical history, family history, social history, allergy reviewed and noted as below Family hx: no hx of CKD. Rest non-contributory Objective - Vital Signs/Intake and Output Vital Signs (last 24 hours): Temp Pulse Resp BP Pulse Ox 97.4 F L 105 H 16 118/65 95 09/02/17 12:00 09/02/17 12:00 09/02/17 12:00 09/02/17 11:48 09/02/17 12:00 Intake and Output: 09/02/17 09/02/17 06:59 18:59 Intake Total 1056.8 360 Output Total 0 Balance 1056.8 360 - Medications Medications: Current Medications Aspirin (Aspirin Chewable) 81 mg PO DAILY [facility] Last Admin: 09/02/17 10:13 Dose: 81 mg Calcium Acetate (Phoslo) 667 mg PO TID [facility] Last Admin: 09/02/17 14:21 Dose: 667 mg Epoetin Alan (Procrit) 8,000 unit IV MWF [facility] Ergocalciferol (Drisdol 50,000 Intl Units Cap) 1 cap PO Q7D [facility] Last Admin: 08/31/17 13:51 Dose: 1 cap Ferrous Gluconate (Fergon) 324 mg PO TID [facility] Last Admin: 09/02/17 14:21 Dose: 324 mg Aztreonam 1 gm/ Sodium (Chloride) 100 mls @ 100 mls/hr IVPB Q12H [facility] Last Admin: 09/02/17 12:43 Dose: 100 mls/hr Metronidazole (Flagyl) 500 mg in 100 mls @ 100 mls/hr IVPB Q8H [facility] Last Admin: 09/02/17 14:21 Dose: 100 mls/hr Heparin Sodium/Sodium Chloride (Heparin 40191 Units/250ml 1/2 Normal Saline) 25 ,000 units in 250 mls @ 7.641 mls/hr IV .Q24H PRN; Protocol; 12 UNIT/KG/HR PRN Reason: PROTOCOL Last Titration: 09/02/17 11:12 Dose: 15.7 unit/kg/hr, 10 mls/hr Insulin Aspart (Novolog) 0 unit SC Q6 [facility] PRN Reason: Protocol Last Admin: 09/02/17 12:43 Dose: 2 unit Insulin Glargine (Lantus) 15 unit SC [facility] Last Admin: 09/01/17 21:36 Dose: 15 u Metoprolol Tartrate (Lopressor) 12.5 mg PO BID [facility] Pantoprazole Sodium (Protonix Inj) 40 mg IVP DAILY [facility] Last Admin: 09/02/17 10:13 Dose: 40 mg Rosuvastatin Calcium (Crestor) 5 mg PO [facility] Last Admin: 09/01/17 21:35 Dose: 5 mg Vitamin B Complex/Vit C/Folic Acid (Nephro-Kamron) 1 tab PO 0800 [facility] Last Admin: 09/02/17 07:59 Dose: 1 tab - Labs Labs: 09/02/17 06:54 09/02/17 06:54 PT 14.6 SECONDS (9.7-12.2) H 08/30/17 02:17 INR 1.3 08/30/17 02:17 APTT 73 SECONDS (21-34) H D 09/02/17 05:14
--- NOTE | 2017-09-02 17:42 | CP.PCM.PN ---
Subjective - Date & Time of Evaluation Date of Evaluation: 09/02/17 Time of Evaluation: 13:00 - Subjective Subjective: acute events noted, cardiac arrest, shocked, intubated not on pressors now, more awake, mild communication, consulted interventional cardiology, agreed with general support prior to any invasive cardiac management Objective - Vital Signs/Intake and Output Vital Signs (last 24 hours): Temp Pulse Resp BP Pulse Ox 97.7 F 104 H 16 140/82 100 09/02/17 16:50 09/02/17 17:20 09/02/17 17:20 09/02/17 17:20 09/02/17 17:20 Intake and Output: 09/02/17 09/02/17 06:59 18:59 Intake Total 1056.8 700 Output Total 0 Balance 1056.8 700 - Medications Medications: Current Medications Aspirin (Aspirin Chewable) 81 mg PO DAILY [facility] Last Admin: 09/02/17 10:13 Dose: 81 mg Calcium Acetate (Phoslo) 667 mg PO TID [facility] Last Admin: 09/02/17 14:21 Dose: 667 mg Epoetin Alan (Procrit) 8,000 unit IV F [facility] Ergocalciferol (Drisdol 50,000 Intl Units Cap) 1 cap PO Q7D [facility] Last Admin: 08/31/17 13:51 Dose: 1 cap Ferrous Gluconate (Fergon) 324 mg PO TID [facility] Last Admin: 09/02/17 14:21 Dose: 324 mg Aztreonam 1 gm/ Sodium (Chloride) 100 mls @ 100 mls/hr IVPB Q12H [facility] Last Admin: 09/02/17 12:43 Dose: 100 mls/hr Metronidazole (Flagyl) 500 mg in 100 mls @ 100 mls/hr IVPB Q8H [facility] Last Admin: 09/02/17 14:21 Dose: 100 mls/hr Heparin Sodium/Sodium Chloride (Heparin 84812 Units/250ml 1/2 Normal Saline) 25 ,000 units in 250 mls @ 7.641 mls/hr IV .Q24H PRN; Protocol; 12 UNIT/KG/HR PRN Reason: PROTOCOL Last Titration: 09/02/17 11:12 Dose: 15.7 unit/kg/hr, 10 mls/hr Insulin Aspart (Novolog) 0 unit SC Q6 [facility] PRN Reason: Protocol Last Admin: 09/02/17 12:43 Dose: 2 unit Insulin Glargine (Lantus) 15 unit SC HS [facility] Last Admin: 09/01/17 21:36 Dose: 15 u Metoprolol Tartrate (Lopressor) 12.5 mg PO BID [facility] Pantoprazole Sodium (Protonix Inj) 40 mg IVP DAILY [facility] Last Admin: 09/02/17 10:13 Dose: 40 mg Rosuvastatin Calcium (Crestor) 5 mg PO HS [facility] Last Admin: 09/01/17 21:35 Dose: 5 mg Vitamin B Complex/Vit C/Folic Acid (Nephro-Kamron) 1 tab PO 0800 [facility] Last Admin: 09/02/17 07:59 Dose: 1 tab - Labs Labs: 09/02/17 06:54 09/02/17 06:54 PT 14.6 SECONDS (9.7-12.2) H 08/30/17 02:17 INR 1.3 08/30/17 02:17 APTT 73 SECONDS (21-34) H D 09/02/17 05:14 - Constitutional Appears: Toxic - Head Exam Head Exam: ATRAUMATIC - ENT Exam ENT Exam: Mucous Membranes Moist - Neck Exam Neck Exam: absent: Lymphadenopathy, Thyromegaly - Respiratory Exam Respiratory Exam: Clear to Ausculation Bilateral. absent: Rales - Cardiovascular Exam Cardiovascular Exam: REGULAR RHYTHM, Murmur - GI/Abdominal Exam GI & Abdominal Exam: Normal Bowel Sounds. 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
[2017-09-02] MEDS: (Lantus) Insulin Glargine, Recombinant SC SCH (21:57)
--- NOTE | 2017-09-02 22:27 | CARD ---
APPROVED REPORT EXAM: Two-dimensional and M-mode echocardiogram with Doppler and color Doppler. Other Information Quality : GoodRhythm : INDICATION VFIB ARREST Mitral Valve MV E [id number]/sE/A ratio0.0 TDI E/Lateral E'0.0E/Medial E'0.0 Tricuspid Valve TR Peak [id number]/sTR Peak [id number] LEFT VENTRICLE The left ventricle is normal size. There is normal left ventricular wall thickness. Left ventricle systolic function is severely impaired. The Ejection Fraction is 15-20%. There is severe global hypokinesis of the left ventricle. No left ventricle thrombus noted on this study. RIGHT VENTRICLE The right ventricle is normal size. There is normal right ventricular wall thickness. Systolic function is severely reduced. ATRIA The left atrium size is normal. The right atrium size is normal. The interatrial septum is intact with no evidence for an atrial septal defect. AORTIC VALVE The aortic valve is normal in structure. No aortic regurgitation is present. There is no aortic valvular stenosis. MITRAL VALVE The mitral valve is normal in structure. There is no evidence of mitral valve prolapse. There is no mitral valve stenosis. Mitral regurgitation is mild. TRICUSPID VALVE The tricuspid valve is normal in structure. There is mild tricuspid regurgitation. Right ventricular systolic pressure is estimated at 40-50 mmHg. There is mild-moderate pulmonary hypertension. PULMONIC VALVE The pulmonic valve is not well visualized. There is mild pulmonic valvular regurgitation. GREAT VESSELS The aortic root is normal in size. PERICARDIAL EFFUSION There is no significant pericardial effusion. Echo space in the posterior area of the LV is most likely lung parenchyma- could be mistaken for large pericardial effusion. Please correlate clinically. Suggest CT scan of chest. <Conclusion> Left ventricle systolic function is severely impaired. The Ejection Fraction is 15-20%. No aortic regurgitation is present. Mitral regurgitation is mild. There is mild tricuspid regurgitation. There is mild-moderate pulmonary hypertension. There is mild pulmonic valvular regurgitation.
[2017-09-03] MEDS: Aztreonam 1 GM in Sodium Chloride 0.9% 100 ML IVPB SCH ×2 (01:30→14:19)
[2017-09-03] MEDS ORDERED: Dextrose 50% SYRINGE Inj (50 ml) ONE (05:54)
[2017-09-03] MEDS: metroNIDAZOLE IV 500 mg/100 ml 500 MG/100 ML BAG IVPB SCH ×3 (06:00→22:00)
[2017-09-03] MEDS: (Novolog) Insulin Aspart, Recombinant 100 u/ml 10 ml vial SC SCH ×4 (06:00→17:29)
[2017-09-03 06:22] LABS: BASO # 0.1 K/uL (0.0-0.2); BASO % 0.4 % (0.0-2.0); EOS % 0.4 % (0.0-4.0); HEMOGLOBIN 9.2 g/dL (11.0-16.0); LYMPH # 1.6 K/uL (1.0-4.3); LYMPH % 12.3 % (20.0-40.0); MEAN CELL VOLUME 85.2 fL (81.0-99.0); MEAN CORPUSCULAR HGB CONC 32.8 g/dL (33.0-37.0); MEAN PLATELET VOLUME 9.2 fL (7.2-11.7); MONO # 0.7 K/uL (0.0-0.8); MONO % 5.1 % (0.0-10.0); NEUT # 10.4 K/uL (1.8-7.0); NEUT % 81.8 % (50.0-75.0); NRBC % 4.3 % (0.0-2.0); RBC 3.29 Mil/uL (3.80-5.20); RED CELL DISTRIBUTION WIDTH 15.8 % (11.5-14.5); WHITE BLOOD COUNT 12.7 K/uL (4.8-10.8)
[2017-09-03 06:39] LABS: ALBUMIN 2.4 g/dL (3.5-5.0); CALCIUM 7.6 mg/dl (8.6-10.4)
[2017-09-03 07:01] LABS: ALB/GLOB RATIO 0.9 (1.0-2.1)
[2017-09-03] MEDS: Multivitamin Vitamin B Complex (Nephro-Vite) Tab PO SCH (07:52)
[2017-09-03] MEDS ORDERED: Dextrose 50% SYRINGE Inj (50 ml) IV STA ×2 (07:54→11:15)
--- NOTE | 2017-09-03 08:09 | CON ---
DATE: HISTORY OF PRESENT ILLNESS: The patient is a 76-year-old Afro-Welsh female. She is intubated at this time. I am asked to evaluate for IV antibiotics. She has history of CKD and she has stage 4 chronic kidney disease, but does not rely on dialysis. She has diastolic congestive heart failure, diabetes mellitus, hypertension and high cholesterol for many years, history of [place] and TIA 3 years ago, and history of colon cancer. She presented with altered mental status and according to the H and P, which was done by the Resident, her sugars were 500 at home and they gave insulin and then repeated the sugar at 4 p.m. when she was acting strange and the patient was not behaving right and not looking right, so the family decided to bring her. She also was having chest pain and she was having some chills, abdominal pain, and dry cough. No fever at home. She has had no headaches, no weakness, no dizziness, no poor appetite. She does have an AV graft, which was placed in 05/2016, but was never used for dialysis as probably she got over it I think, but now she is here with renal failure, intubated. PAST SURGICAL HISTORY: She has surgical history of colon surgery in 2009, had endoscopy. PAST MEDICAL HISTORY: She has past medical history of end-stage renal disease, diabetes, hypertension, hypercholesterolemia, [place], TIA, peripheral artery disease, CHF, asthma, colon cancer, and arthritis. MEDICATIONS: She was on aspirin, amlodipine, lisinopril, labetalol, Lantus, furosemide, ferrous sulphate, and calcitriol. ALLERGIES: SHE IS ALLERGIC TO PENICILLIN AND GETS RASH. FAMILY HISTORY: Mother of cancer, father of unknown reason. SOCIAL HISTORY: She lives with the son and daughter, she lives alone, but they visit her daily and she ambulates without assistance for this reason. At this time, I found that critical care note shows that she has a non-STEMI and she had asystole. They tried to put a groin catheter, which they could not and Dr. Quinonez on 08/31/2017 checked the renal. They found the thrombosed left AV fistula and he had to put right femoral Shiley, but unable to pass guidewire. So at this time, the patient is intubated, unable give any history, but she is opening her eyes and she was also seen by md ophthalmologist and lay out inspector. She had a non-STEMI and she is status post VFib and arrest. She is on amiodarone and pulmonary-pugh she remains intubated and her kidney functions are bad. ALLERGIES: SHE IS ALLERGIC TO PENICILLIN. She does have diabetes. MEDICATIONS: At this time, she is on aspirin, she is getting Azactam 1 gm q.12, PhosLo, Procrit, Bestron, Fergon, Heparin 25,000, and she is on NovoLog, and she is also on IV heparin, she is , Fergon, she was on Flagyl also and she is getting that, so she is on Azactam and Flagyl at this time, Crestor, and Protonix. PHYSICAL EXAMINATION VITAL SIGNS: On examination I find her temperature is 97.7, pulse is 123, blood pressure 148/92, and respirations on the vent. HEENT: She was opening her eyes, head is atraumatic, normocephalic, and pupils are reacting to light, remains intubated. NECK: Supple, JVP flat. CARDIOPULMONARY: S1 and S2. She did have atrial fibrillation right before, but in sinus. LUNGS: Have bilateral decreased breath sounds. ABDOMEN: Soft, nontender, no guarding, no rigidity present. EXTREMITIES: She has Venodyne boots on, on both lower extremities. LABORATORY DATA: Labs are noted, lab show she did have hepatitis profile, which is negative. Her white count is 13.4 today, hemoglobin is 7.8, hematocrit 23.8, platelet count is 102, which shows neutrophils 86.5. Sodium is 139, potassium 3.5, chloride is 102, CO2 is 25, BUN is 67, creatinine is 4.6. Her LFTs are elevated as she did have asystole and cardiac arrest and probably had ischemic hepatitis. Her blood culture and those are negative. I will order a sputum culture, so that will help us to decide about antibiotics and about her x-ray findings. Her x-ray reports show the last chest x-ray was done today shows a small left pleural effusion, lines and tubes are unchanged, and no active disease in the lungs. ASSESSMENT: At this time, I think she probably came in with high sugars and has renal failure and probably chronic diastolic congestive heart failure, and we will continue present antibiotics; otherwise, Tygacil is another option to use as she does have renal failure and she is allergic to penicillin. We will hold off on changing antibiotics at this time and check the sputum, [employer] ATTEND[employer] and she remains anemic with renal failure, acute respiratory failure. We will follow and status post non-STEMI. Karissa Adams MD
--- NOTE | 2017-09-03 08:30 | RAD ---
Chest x-ray single frontal view History: Follow-up. Vented. Comparison: 09/02/2017 Findings: Lines and tubes in stable position. Mild venous congestion. Bibasilar airspace opacities with small left pleural effusion. Cardiomegaly. Calcification at aortic knob. Tortuous ectatic aorta. Degenerative changes in the spine and shoulders. Impression: Mild venous congestion. Bibasilar airspace opacities with small left pleural effusion. Cardiomegaly.
[2017-09-03 08:44] LABS: ARTERIAL BLOOD GAS HCO3 23.3 mmol/L (21-28); ARTERIAL BLOOD GAS HEMOGLOBIN 7.5 g/dL (11.7-17.4); ARTERIAL BLOOD GAS O2 SAT 99.6 % (95-98); ARTERIAL BLOOD GAS PCO2 24 mm/Hg (35-45); ARTERIAL BLOOD GAS PH 7.53 (7.35-7.45); ARTERIAL BLOOD GAS PO2 154 mm/Hg (80-100); ARTERIAL BLOOD GAS TCO2 20.8 mmol/L (22-28)
[2017-09-03] MEDS ORDERED: Magnesium Sulfate 1 gm in D5W 1 GM/100 ML BAG IVPB ONE (09:00)
--- NOTE | 2017-09-03 09:40 | CP.PCM.PN ---
Subjective - Date & Time of Evaluation Date of Evaluation: 09/03/17 Time of Evaluation: 09:15 - Subjective Subjective: Patient was seen and examined by me She remains intubated at this time - her settings are now changed over to CPAP/ PS settings. Yesterday she had another HD session and this time she tolerated it very well. The CXRAY this morning looked a lot less congestion. When I saw this morning she appeared a lot more alert. She was able to nodd her head no. She was also able to follow simple commands such as raise her arms bilaterally as well as try to move her legs on command. Blood pressure remains stable, she has not been on pressor medications for 2 days now. I spoke with the patient's sister via phone - Annmarie Stauffer and updated her Objective - Vital Signs/Intake and Output Vital Signs (last 24 hours): Temp Pulse Resp BP Pulse Ox 97.9 F 97 H 16 121/68 96 09/03/17 08:00 09/03/17 07:56 09/03/17 07:56 09/03/17 07:56 09/03/17 07:56 Intake and Output: 09/03/17 09/03/17 06:59 18:59 Intake Total 520 120 Output Total 1100 Balance -580 120 - Medications Medications: Current Medications Aspirin (Aspirin Chewable) 81 mg PO DAILY [facility] Last Admin: 09/03/17 09:11 Dose: 81 mg Epoetin Alan (Procrit) 8,000 unit IV MWF [facility] Ergocalciferol (Drisdol 50,000 Intl Units Cap) 1 cap PO Q7D [facility] Last Admin: 08/31/17 13:51 Dose: 1 cap Ferrous Gluconate (Fergon) 324 mg PO TID [facility] Last Admin: 09/03/17 09:11 Dose: 324 mg Aztreonam 1 gm/ Sodium (Chloride) 100 mls @ 100 mls/hr IVPB Q12H [facility] Last Admin: 09/03/17 01:30 Dose: 100 mls/hr Metronidazole (Flagyl) 500 mg in 100 mls @ 100 mls/hr IVPB Q8H [facility] Last Admin: 09/03/17 06:00 Dose: 100 mls/hr Heparin Sodium/Sodium Chloride (Heparin 40757 Units/250ml 1/2 Normal Saline) 25 ,000 units in 250 mls @ 7.641 mls/hr IV .Q24H PRN; Protocol; 12 UNIT/KG/HR PRN Reason: PROTOCOL Last Titration: 09/02/17 11:12 Dose: 15.7 unit/kg/hr, 10 mls/hr Potassium Chloride 20 meq/ (Sodium Chloride) 110 mls @ 50 mls/hr IV Q2H [facility] Stop: 09/03/17 13:59 Magnesium Sulfate/Dextrose (Magnesium Sulfate 1 Gm/100 Ml D5w) 1 gm in 100 mls @ 100 mls/hr IVPB ONCE ONE Stop: 09/03/17 09:59 Last Admin: 09/03/17 09:11 Dose: 100 mls/hr Insulin Aspart (Novolog) 0 unit SC Q6 [facility] PRN Reason: Protocol Last Admin: 09/03/17 06:00 Dose: Not Given Insulin Glargine (Lantus) 10 unit SC HS [facility] Metoprolol Tartrate (Lopressor) 12.5 mg PO BID [facility] Last Admin: 09/03/17 09:11 Dose: 12.5 mg Midodrine (Proamatine) 10 mg NG Q8 [facility] Pantoprazole Sodium (Protonix Inj) 40 mg IVP DAILY [facility] Last Admin: 09/03/17 09:11 Dose: 40 mg Rosuvastatin Calcium (Crestor) 5 mg PO HS [facility] Last Admin: 09/02/17 21:56 Dose: 5 mg Vitamin B Complex/Vit C/Folic Acid (Nephro-Kamron) 1 tab PO 0800 [facility] Last Admin: 09/03/17 07:52 Dose: 1 tab - Labs Labs: 09/03/17 06:18 09/03/17 06:17 PT 14.6 SECONDS (9.7-12.2) H 08/30/17 02:17 INR 1.3 08/30/17 02:17 APTT 66 SECONDS (21-34) H D 09/03/17 07:44 - Constitutional Appears: Chronically Ill - Head Exam Head Exam: NORMAL INSPECTION, NORMOCEPHALIC - ENT Exam ENT Exam: Mucous Membranes Moist - Respiratory Exam Respiratory Exam: NORMAL BREATHING PATTERN Additional comments: Intubated - Cardiovascular Exam Cardiovascular Exam: Irregular Rhythm Additional comments: Today was irregular irregular - GI/Abdominal Exam GI & Abdominal Exam: Soft, Normal Bowel Sounds - Neurological Exam Neurological Exam: Alert, Awake Neuro motor strength exam: Left Upper Extremity: 4, Right Upper Extremity: 4, Left Lower Extremity: 3, Right Lower Extremity: 3 Additional comments: She could not raise legs up on exam - she was wearing the prevalon boots. 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 She was brought in by family for altered mental status and ultimately found to have severe metabolic acidosis as well as a extremely elevated troponins. Plan: 1 Acute NSTEMI , S/P Hypotension /Asystol ,CPR / Sustained VT 09/03: Remains in heparin ggt, statin, ASA. Hopefully at some point can have cardiac catherization. 09/02: Now off pressor medications. She remains on amiodarone Echo EF 30%. Troponins were as high as 103 then decreased. Currently on a heparin ggt, ASA, Statin. 2 Respiratory failure, intubation 09/03: Now changed to CPAP/PS settings. The chest XRAYs look better this morning following HD last night. 3 Acute renal failure 09/03: Underwent HD yesterday and tolerated it well. CXRAY looks better 09/02/2017: She has had one session of HD so far. Mercedes another session today 4 Leukocytosis concerning for sepsis 09/03: Today decreased WBC. Cultures negative so far 09/02/2017: The elevated WBC maybe stress related. She remains on abx Aztreonam IV and Flagyl IV 5 Acute systolic heart failure 09/03: Monitor chest XRAYs. ECHO shows EF 30% 6 Pleural effusion 09/03: Improving CXRAYs 09/02/2017: Pleural effusions minimal at this time. Continue to monitor 7 Hyperglycemia and uncontrolled DM 09/03: Reccent accucheks 130s, 130, 160 8 Anemia of chronic disease, CKD 09/03: Yesterday had 1 unit of PRBC given during HD, receiving EPO
--- NOTE | 2017-09-03 11:52 | CP.PCM.PN ---
Subjective - Date & Time of Evaluation Date of Evaluation: 09/03/17 Time of Evaluation: 12:00 - Subjective Subjective: Improved clinically, after hemodialysis,, more alert, bicarbonate is up to 29 and pH 7.5. Potassium 3.1 post hemodialysis less congestion currently on CPAP and no pressors. Continue observation for further cardiac invasive management when more stable. Objective - Vital Signs/Intake and Output Vital Signs (last 24 hours): Temp Pulse Resp BP Pulse Ox 97.9 F 109 H 22 124/44 L 99 09/03/17 08:00 09/03/17 09:57 09/03/17 09:57 09/03/17 09:57 09/03/17 09:57 Intake and Output: 09/03/17 09/03/17 06:59 18:59 Intake Total 520 440 Output Total 1100 Balance -580 440 - Medications Medications: Current Medications Aspirin (Aspirin Chewable) 81 mg PO DAILY [facility] Last Admin: 09/03/17 09:11 Dose: 81 mg Epoetin Alan (Procrit) 8,000 unit IV MWF [facility] Ergocalciferol (Drisdol 50,000 Intl Units Cap) 1 cap PO Q7D [facility] Last Admin: 08/31/17 13:51 Dose: 1 cap Ferrous Gluconate (Fergon) 324 mg PO TID [facility] Last Admin: 09/03/17 09:11 Dose: 324 mg Aztreonam 1 gm/ Sodium (Chloride) 100 mls @ 100 mls/hr IVPB Q12H [facility] Last Admin: 09/03/17 01:30 Dose: 100 mls/hr Metronidazole (Flagyl) 500 mg in 100 mls @ 100 mls/hr IVPB Q8H [facility] Last Admin: 09/03/17 06:00 Dose: 100 mls/hr Heparin Sodium/Sodium Chloride (Heparin 60574 Units/250ml 1/2 Normal Saline) 25 ,000 units in 250 mls @ 7.641 mls/hr IV .Q24H PRN; Protocol; 12 UNIT/KG/HR PRN Reason: PROTOCOL Last Titration: 09/02/17 11:12 Dose: 15.7 unit/kg/hr, 10 mls/hr Potassium Chloride 20 meq/ (Sodium Chloride) 110 mls @ 50 mls/hr IV Q2H [facility] Stop: 09/03/17 13:59 Last Admin: 09/03/17 10:22 Dose: 50 mls/hr Insulin Aspart (Novolog) 0 unit SC Q6 [facility] PRN Reason: Protocol Last Admin: 09/03/17 06:00 Dose: Not Given Insulin Glargine (Lantus) 5 unit SC HS [facility] Metoprolol Tartrate (Lopressor) 12.5 mg PO BID [facility] Last Admin: 09/03/17 09:11 Dose: 12.5 mg Midodrine (Proamatine) 10 mg NG Q8 [facility] Pantoprazole Sodium (Protonix Inj) 40 mg IVP DAILY [facility] Last Admin: 09/03/17 09:11 Dose: 40 mg Rosuvastatin Calcium (Crestor) 5 mg PO HS [facility] Last Admin: 09/02/17 21:56 Dose: 5 mg Vitamin B Complex/Vit C/Folic Acid (Nephro-Kamron) 1 tab PO 0800 [facility] Last Admin: 09/03/17 07:52 Dose: 1 tab - Labs Labs: 09/03/17 06:18 09/03/17 06:17 PT 14.6 SECONDS (9.7-12.2) H 08/30/17 02:17 INR 1.3 08/30/17 02:17 APTT 66 SECONDS (21-34) H D 09/03/17 07:44 - Constitutional Appears: Non-toxic - Head Exam Head Exam: ATRAUMATIC - Eye Exam Eye Exam: EOMI - ENT Exam ENT Exam: Mucous Membranes Moist - Neck Exam Neck Exam: absent: Lymphadenopathy, Thyromegaly - Respiratory Exam Respiratory Exam: Clear to Ausculation Bilateral. 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
--- NOTE | 2017-09-03 13:41 | CP.CCUPN ---
<Rex Romero - Last Filed: 09/03/17 13:42> CCU Subjective - Physician Review Subjective (Free Text): 08/30/17 15:06 Patient seen and examined at bedside AMS spoke with nephro and want to wait for diaylsis until cardio decides to do cath or not 08/30/17 17:16 PMD talked with cardio and Nephro. Medical managment for cardiac issues at this time. OK to go ahead with dialysis. First session tonight 09/02/17 10:35 Over weekend patient had Vfib arrest tolerated dialysis for 45 min before becoming hypotensive Patient will again have dialysis today Giving blood today 09/03/17 13:42 patient seen and examined today patient will need cath when more stable tolerated CPAP for 2 hours today Dialysis tomorrow CCU Objective - Vital Signs / Intake & Output Vital Signs (Last 4 hours): Vital Signs Temp Pulse Resp BP Pulse Ox 09/03/17 12:00 98.1 F 09/03/17 11:56 94 H 16 103/54 L 99 09/03/17 11:33 99 H 17 99/60 L 100 09/03/17 11:00 131 H 16 100 09/03/17 09:57 109 H 22 124/44 L 99 Intake and Output (Last 8hrs): Intake & Output 09/02/17 09/03/17 09/03/17 22:59 06:59 14:59 Intake Total 430 330 965 Output Total 1100 Balance -670 330 965 Weight 158 lb Intake: Intake, IV Amount 80 80 310 Right Hand 80 80 60 medial 250 Tube Feeding 200 200 150 Blood Product 0 325 Red Blood Cells Cpd As1 0 325 Lr Unit [id number] Other 150 50 180 Red Blood Cells Cpd As1 30 Lr Unit [id number] Output: Other 1100 - Physical Exam Head: Positive for: Atraumatic, Normocephalic. Negative for: Tenderness, Contusion, Swelling Pupils: Positive for: PERRL. Negative for: Sluggish, Non-Reactive Extroacular Muscles: Positive for: EOMI Conjunctiva: Positive for: Normal Mouth: Positive for: Dry Pharnyx: Positive for: Normal Nose (External): Positive for: Atraumatic Neck: Positive for: Trachea Midline. Negative for: JVD Respiratory/Chest: Positive for: Good Air Exchange, Accessory Muscle Use, Decreased Breath Sounds (on bilateral bases). Negative for: Wheezes Cardiovascular: Positive for: Tachycardic Abdomen: Positive for: Distention, Normal Bowel Sounds. Negative for: Peritoneal Signs Upper Extremity: Negative for: Cyanosis, Edema Lower Extremity: Negative for: Edema Psychiatric: Positive for: Alert - Medications Active Medications: Active Medications Generic Name Dose Route Start Last Admin Trade Name Freq PRN Reason Stop Dose Admin Aspirin 81 mg 08/30/17 10:00 09/03/17 09:11 Aspirin Chewable PO 81 mg DAILY CAROLYNE Administration Epoetin Alan 8,000 unit 09/04/17 09:00 Procrit IV MWF CAROLYNE Ergocalciferol 1 cap 08/31/17 14:45 08/31/17 13:51 Drisdol 50,000 Intl Units Cap PO 1 cap Q7D CAROLYNE Administration Ferrous Gluconate 324 mg 08/31/17 10:00 09/03/17 09:11 Fergon PO 324 mg TID CAROLYNE Administration Aztreonam 1 gm/ Sodium 100 mls @ 100 mls/hr 08/31/17 13:30 09/03/17 01:30 Chloride IVPB 100 mls/hr Q12H CAROLYNE Administration Metronidazole 500 mg in 100 mls @ 100 mls/hr 08/31/17 14:30 09/03/17 06:00 Flagyl IVPB 100 mls/hr Q8H CAROLYNE Administration Heparin Sodium/Sodium Chloride 25,000 units in 250 mls @ 7.641 mls/hr 08:30 09/02/17 11:12 Heparin 76771 Units/250ml 1/2 Normal Saline IV 15.7 unit/kg/hr .Q24H PRN 10 mls/hr PROTOCOL Titration Protocol 12 UNIT/KG/HR Potassium Chloride 20 meq/ 110 mls @ 50 mls/hr 09/03/17 10:00 09/03/17 12:27 Sodium Chloride IV 09/03/17 13:59 50 mls/hr Q2H CAROLYNE Administration Insulin Aspart 0 unit 09/01/17 11:49 09/03/17 11:08 Novolog SC Not Given Q6 CAROLYNE Protocol Insulin Glargine 5 unit 09/03/17 22:00 Lantus SC HS CAROLYNE Metoprolol Tartrate 12.5 mg 09/02/17 22:00 09/03/17 09:11 Lopressor PO 12.5 mg BID CAROLYNE Administration Midodrine 10 mg 09/03/17 14:00 Proamatine NG Q8 CAROLYNE Pantoprazole Sodium 40 mg 09/02/17 10:00 09/03/17 09:11 Protonix Inj IVP 40 mg DAILY CAROLYNE Administration Rosuvastatin Calcium 5 mg 08/30/17 01:15 09/02/17 21:56 Crestor PO 5 mg HS CAROLYNE Administration Vitamin B Complex/Vit C/Folic Acid 1 tab 08/31/17 08:00 09/03/17 07:52 Nephro-Kamron PO 1 tab 0800 CAROLYNE Administration - Patient Studies Lab Studies: Microbiology Studies 08/29/17 06:30 Blood Culture - Preliminary Blood-Venous NO GROWTH AFTER 4 DAYS 08/29/17 06:00 Blood Culture - Preliminary Blood-Venous NO GROWTH AFTER 4 DAYS Lab Studies 09/03/17 09/03/17 09/03/17 Range/Units 11:55 11:09 11:08 WBC (4.8-10.8) K/uL RBC (3.80-5.20) Mil/uL Hgb (11.0-16.0) g/dL Hct (34.0-47.0) % MCV (81.0-99.0) fL MCH (27.0-31.0) pg MCHC (33.0-37.0) g/dL RDW (11.5-14.5) % Plt Count (130-400) K/uL MPV (7.2-11.7) fL Neut % (Auto) (50.0-75.0) % Lymph % (Auto) (20.0-40.0) % [place] % (Auto) (0.0-10.0) % Eos % (Auto) (0.0-4.0) % Baso % (Auto) (0.0-2.0) % Neut # (Auto) (1.8-7.0) K/uL Lymph # (Auto) (1.0-4.3) K/uL [place] # (Auto) (0.0-0.8) K/uL Eos # (Auto) (0.0-0.7) K/uL Baso # (Auto) (0.0-0.2) K/uL Differential Comment APTT (21-34) SECONDS Puncture Site pCO2 (35-45) mm/Hg pO2 (80-100) mm/Hg HCO3 (21-28) mmol/L ABG pH (7.35-7.45) ABG Total CO2 (22-28) mmol/L ABG O2 Saturation (95-98) % ABG Base Excess (-2.0-3.0) mmol/L ABG Hemoglobin (11.7-17.4) g/dL ABG Carboxyhemoglobin (0.5-1.5) % POC ABG HHb (Measured) (0.0-5.0) % ABG Methemoglobin (0.0-3.0) % Christian Test A-a O2 Difference mm/Hg Respiratory Index Hgb O2 Saturation (95.0-98.0) % Mechanical Rate FiO2 % Tidal Volume PEEP Sodium (132-148) mmol/L Potassium (3.6-5.2) mmol/L Chloride (98-107) mmol/L Carbon Dioxide (22-30) mmol/L Anion Gap (10-20) BUN (7-17) mg/dL Creatinine (0.7-1.2) mg/dL Est GFR ( Amer) Est GFR (Non-Af Amer) POC Glucose (mg/dL) 152 H 58 L 54 L (65-110) mg/dL Random Glucose (65-105) mg/dL Calcium (8.6-10.4) mg/dl Phosphorus (2.5-4.5) mg/dL Magnesium (1.6-2.3) mg/dL Total Bilirubin (0.2-1.3) mg/dL AST (14-36) U/L ALT (9-52) U/L Alkaline Phosphatase (38-126) U/L Total Protein (6.3-8.3) g/dL Albumin (3.5-5.0) g/dL Globulin (2.2-3.9) gm/dL Albumin/Globulin Ratio (1.0-2.1) Blood Type Antibody Screen 09/03/17 09/03/17 09/03/17 Range/Units 08:35 07:44 06:18 WBC 12.7 H (4.8-10.8) K/uL RBC 3.29 L (3.80-5.20) Mil/uL Hgb 9.2 L (11.0-16.0) g/dL Hct 28.0 L (34.0-47.0) % MCV 85.2 (81.0-99.0) fL MCH 28.0 (27.0-31.0) pg MCHC 32.8 L (33.0-37.0) g/dL RDW 15.8 H (11.5-14.5) % Plt Count 86 L (130-400) K/uL MPV 9.2 (7.2-11.7) fL Neut % (Auto) 81.8 H (50.0-75.0) % Lymph % (Auto) 12.3 L (20.0-40.0) % [place] % (Auto) 5.1 (0.0-10.0) % Eos % (Auto) 0.4 (0.0-4.0) % Baso % (Auto) 0.4 (0.0-2.0) % Neut # (Auto) 10.4 H (1.8-7.0) K/uL Lymph # (Auto) 1.6 (1.0-4.3) K/uL [place] # (Auto) 0.7 (0.0-0.8) K/uL Eos # (Auto) 0.0 (0.0-0.7) K/uL Baso # (Auto) 0.1 (0.0-0.2) K/uL Differential Comment APTT 66 H D (21-34) SECONDS Puncture Site R/b pCO2 24 L (35-45) mm/Hg pO2 154 H (80-100) mm/Hg HCO3 23.3 (21-28) mmol/L ABG pH 7.53 H (7.35-7.45) ABG Total CO2 20.8 L (22-28) mmol/L ABG O2 Saturation 99.6 H (95-98) % ABG Base Excess -2.1 L (-2.0-3.0) mmol/L ABG Hemoglobin 7.5 L (11.7-17.4) g/dL ABG Carboxyhemoglobin 1.6 H (0.5-1.5) % POC ABG HHb (Measured) 0.4 (0.0-5.0) % ABG Methemoglobin 1.1 (0.0-3.0) % Christian Test Na A-a O2 Difference 101.0 mm/Hg Respiratory Index 0.7 Hgb O2 Saturation 96.8 (95.0-98.0) % Mechanical Rate 16 FiO2 40.0 % Tidal Volume 500 PEEP 5 Sodium (132-148) mmol/L Potassium (3.6-5.2) mmol/L Chloride (98-107) mmol/L Carbon Dioxide (22-30) mmol/L Anion Gap (10-20) BUN (7-17) mg/dL Creatinine (0.7-1.2) mg/dL Est GFR ( Amer) Est GFR (Non-Af Amer) POC Glucose (mg/dL) (65-110) mg/dL Random Glucose (65-105) mg/dL Calcium (8.6-10.4) mg/dl Phosphorus (2.5-4.5) mg/dL Magnesium (1.6-2.3) mg/dL Total Bilirubin (0.2-1.3) mg/dL AST (14-36) U/L ALT (9-52) U/L Alkaline Phosphatase (38-126) U/L Total Protein (6.3-8.3) g/dL Albumin (3.5-5.0) g/dL Globulin (2.2-3.9) gm/dL Albumin/Globulin Ratio (1.0-2.1) Blood Type Antibody Screen 09/03/17 09/03/17 09/03/17 Range/Units 06:17 06:08 05:49 WBC (4.8-10.8) K/uL RBC (3.80-5.20) Mil/uL Hgb (11.0-16.0) g/dL Hct (34.0-47.0) % MCV (81.0-99.0) fL MCH (27.0-31.0) pg MCHC (33.0-37.0) g/dL RDW (11.5-14.5) % Plt Count (130-400) K/uL MPV (7.2-11.7) fL Neut % (Auto) (50.0-75.0) % Lymph % (Auto) (20.0-40.0) % [place] % (Auto) (0.0-10.0) % Eos % (Auto) (0.0-4.0) % Baso % (Auto) (0.0-2.0) % Neut # (Auto) (1.8-7.0) K/uL Lymph # (Auto) (1.0-4.3) K/uL [place] # (Auto) (0.0-0.8) K/uL Eos # (Auto) (0.0-0.7) K/uL Baso # (Auto) (0.0-0.2) K/uL Differential Comment APTT (21-34) SECONDS Puncture Site pCO2 (35-45) mm/Hg pO2 (80-100) mm/Hg HCO3 (21-28) mmol/L ABG pH (7.35-7.45) ABG Total CO2 (22-28) mmol/L ABG O2 Saturation (95-98) % ABG Base Excess (-2.0-3.0) mmol/L ABG Hemoglobin (11.7-17.4) g/dL ABG Carboxyhemoglobin (0.5-1.5) % POC ABG HHb (Measured) (0.0-5.0) % ABG Methemoglobin (0.0-3.0) % Christian Test A-a O2 Difference mm/Hg Respiratory Index Hgb O2 Saturation (95.0-98.0) % Mechanical Rate FiO2 % Tidal Volume PEEP Sodium 138 (132-148) mmol/L Potassium 3.1 L (3.6-5.2) mmol/L Chloride 100 (98-107) mmol/L Carbon Dioxide 29 (22-30) mmol/L Anion Gap 12 (10-20) BUN 48 H (7-17) mg/dL Creatinine 3.6 H (0.7-1.2) mg/dL Est GFR ( Amer) 15 Est GFR (Non-Af Amer) 12 POC Glucose (mg/dL) 168 H 47 L (65-110) mg/dL Random Glucose 62 L (65-105) mg/dL Calcium 7.6 L (8.6-10.4) mg/dl Phosphorus 1.7 L (2.5-4.5) mg/dL Magnesium 1.8 (1.6-2.3) mg/dL Total Bilirubin 1.7 H (0.2-1.3) mg/dL AST 868 H D (14-36) U/L ALT 1479 H (9-52) U/L Alkaline Phosphatase 182 H D (38-126) U/L Total Protein 5.2 L (6.3-8.3) g/dL Albumin 2.4 L (3.5-5.0) g/dL Globulin 2.8 (2.2-3.9) gm/dL Albumin/Globulin Ratio 0.9 L (1.0-2.1) Blood Type Antibody Screen 09/03/1718 09/02/17 Range/Units 05:44 00:05 18:18 WBC (4.8-10.8) K/uL RBC (3.80-5.20) Mil/uL Hgb (11.0-16.0) g/dL Hct (34.0-47.0) % MCV (81.0-99.0) fL MCH (27.0-31.0) pg MCHC (33.0-37.0) g/dL RDW (11.5-14.5) % Plt Count (130-400) K/uL MPV (7.2-11.7) fL Neut % (Auto) (50.0-75.0) % Lymph % (Auto) (20.0-40.0) % [place] % (Auto) (0.0-10.0) % Eos % (Auto) (0.0-4.0) % Baso % (Auto) (0.0-2.0) % Neut # (Auto) (1.8-7.0) K/uL Lymph # (Auto) (1.0-4.3) K/uL [place] # (Auto) (0.0-0.8) K/uL Eos # (Auto) (0.0-0.7) K/uL Baso # (Auto) (0.0-0.2) K/uL Differential Comment APTT (21-34) SECONDS Puncture Site pCO2 (35-45) mm/Hg pO2 (80-100) mm/Hg HCO3 (21-28) mmol/L ABG pH (7.35-7.45) ABG Total CO2 (22-28) mmol/L ABG O2 Saturation (95-98) % ABG Base Excess (-2.0-3.0) mmol/L ABG Hemoglobin (11.7-17.4) g/dL ABG Carboxyhemoglobin (0.5-1.5) % POC ABG HHb (Measured) (0.0-5.0) % ABG Methemoglobin (0.0-3.0) % Christian Test A-a O2 Difference mm/Hg Respiratory Index Hgb O2 Saturation (95.0-98.0) % Mechanical Rate FiO2 % Tidal Volume PEEP Sodium (132-148) mmol/L Potassium (3.6-5.2) mmol/L Chloride (98-107) mmol/L Carbon Dioxide (22-30) mmol/L Anion Gap (10-20) BUN (7-17) mg/dL Creatinine (0.7-1.2) mg/dL Est GFR ( Amer) Est GFR (Non-Af Amer) POC Glucose (mg/dL) 57 L 130 H 130 H (65-110) mg/dL Random Glucose (65-105) mg/dL Calcium (8.6-10.4) mg/dl Phosphorus (2.5-4.5) mg/dL Magnesium (1.6-2.3) mg/dL Total Bilirubin (0.2-1.3) mg/dL AST (14-36) U/L ALT (9-52) U/L Alkaline Phosphatase (38-126) U/L Total Protein (6.3-8.3) g/dL Albumin (3.5-5.0) g/dL Globulin (2.2-3.9) gm/dL Albumin/Globulin Ratio (1.0-2.1) Blood Type Antibody Screen 09/02/17 Range/Units 11:56 WBC (4.8-10.8) K/uL RBC (3.80-5.20) Mil/uL Hgb (11.0-16.0) g/dL Hct (34.0-47.0) % MCV (81.0-99.0) fL MCH (27.0-31.0) pg MCHC (33.0-37.0) g/dL RDW (11.5-14.5) % Plt Count (130-400) K/uL MPV (7.2-11.7) fL Neut % (Auto) (50.0-75.0) % Lymph % (Auto) (20.0-40.0) % [place] % (Auto) (0.0-10.0) % Eos % (Auto) (0.0-4.0) % Baso % (Auto) (0.0-2.0) % Neut # (Auto) (1.8-7.0) K/uL Lymph # (Auto) (1.0-4.3) K/uL [place] # (Auto) (0.0-0.8) K/uL Eos # (Auto) (0.0-0.7) K/uL Baso # (Auto) (0.0-0.2) K/uL Differential Comment APTT (21-34) SECONDS Puncture Site pCO2 (35-45) mm/Hg pO2 (80-100) mm/Hg HCO3 (21-28) mmol/L ABG pH (7.35-7.45) ABG Total CO2 (22-28) mmol/L ABG O2 Saturation (95-98) % ABG Base Excess (-2.0-3.0) mmol/L ABG Hemoglobin (11.7-17.4) g/dL ABG Carboxyhemoglobin (0.5-1.5) % POC ABG HHb (Measured) (0.0-5.0) % ABG Methemoglobin (0.0-3.0) % Christian Test A-a O2 Difference mm/Hg Respiratory Index Hgb O2 Saturation (95.0-98.0) % Mechanical Rate FiO2 % Tidal Volume PEEP Sodium (132-148) mmol/L Potassium (3.6-5.2) mmol/L Chloride (98-107) mmol/L Carbon Dioxide (22-30) mmol/L Anion Gap (10-20) BUN (7-17) mg/dL Creatinine (0.7-1.2) mg/dL Est GFR ( Amer) Est GFR (Non-Af Amer) POC Glucose (mg/dL) (65-110) mg/dL Random Glucose (65-105) mg/dL Calcium (8.6-10.4) mg/dl Phosphorus (2.5-4.5) mg/dL Magnesium (1.6-2.3) mg/dL Total Bilirubin (0.2-1.3) mg/dL AST (14-36) U/L ALT (9-52) U/L Alkaline Phosphatase (38-126) U/L Total Protein (6.3-8.3) g/dL Albumin (3.5-5.0) g/dL Globulin (2.2-3.9) gm/dL Albumin/Globulin Ratio (1.0-2.1) Blood Type O POSITIVE Antibody Screen Negative Laboratory Results - last 24 hr 09/02/17 09/02/17 09/03/17 11:56 18:18 00:05 WBC RBC Hgb Hct MCV MCH MCHC RDW Plt Count MPV Neut % (Auto) Lymph % (Auto) [place] % (Auto) Eos % (Auto) Baso % (Auto) Neut # (Auto) Lymph # (Auto) [place] # (Auto) Eos # (Auto) Baso # (Auto) Differential Comment APTT Puncture Site pCO2 pO2 HCO3 ABG pH ABG Total CO2 ABG O2 Saturation ABG Base Excess ABG Hemoglobin ABG Carboxyhemoglobin POC ABG HHb (Measured) ABG Methemoglobin Christian Test A-a O2 Difference Respiratory Index Hgb O2 Saturation Mechanical Rate FiO2 Tidal Volume PEEP Sodium Potassium Chloride Carbon Dioxide Anion Gap BUN Creatinine Est GFR ( Amer) Est GFR (Non-Af Amer) POC Glucose (mg/dL) 130 H 130 H Random Glucose Calcium Phosphorus Magnesium Total Bilirubin AST ALT Alkaline Phosphatase Total Protein Albumin Globulin Albumin/Globulin Ratio Blood Type O POSITIVE Antibody Screen Negative 09/03/17 09/03/17 09/03/17 05:44 05:49 06:08 WBC RBC Hgb Hct MCV MCH MCHC RDW Plt Count MPV Neut % (Auto) Lymph % (Auto) [place] % (Auto) Eos % (Auto) Baso % (Auto) Neut # (Auto) Lymph # (Auto) [place] # (Auto) Eos # (Auto) Baso # (Auto) Differential Comment APTT Puncture Site pCO2 pO2 HCO3 ABG pH ABG Total CO2 ABG O2 Saturation ABG Base Excess ABG Hemoglobin ABG Carboxyhemoglobin POC ABG HHb (Measured) ABG Methemoglobin Christian Test A-a O2 Difference Respiratory Index Hgb O2 Saturation Mechanical Rate FiO2 Tidal Volume PEEP Sodium Potassium Chloride Carbon Dioxide Anion Gap BUN Creatinine Est GFR ( Amer) Est GFR (Non-Af Amer) POC Glucose (mg/dL) 57 L 47 L 168 H Random Glucose Calcium Phosphorus Magnesium Total Bilirubin AST ALT Alkaline Phosphatase Total Protein Albumin Globulin Albumin/Globulin Ratio Blood Type Antibody Screen 09/03/17 09/03/17 09/03/17 06:17 06:18 07:44 WBC 12.7 H RBC 3.29 L Hgb 9.2 L Hct 28.0 L MCV 85.2 MCH 28.0 MCHC 32.8 L RDW 15.8 H Plt Count 86 L MPV 9.2 Neut % (Auto) 81.8 H Lymph % (Auto) 12.3 L [place] % (Auto) 5.1 Eos % (Auto) 0.4 Baso % (Auto) 0.4 Neut # (Auto) 10.4 H Lymph # (Auto) 1.6 [place] # (Auto) 0.7 Eos # (Auto) 0.0 Baso # (Auto) 0.1 Differential Comment APTT 66 H D Puncture Site pCO2 pO2 HCO3 ABG pH ABG Total CO2 ABG O2 Saturation ABG Base Excess ABG Hemoglobin ABG Carboxyhemoglobin POC ABG HHb (Measured) ABG Methemoglobin Christian Test A-a O2 Difference Respiratory Index Hgb O2 Saturation Mechanical Rate FiO2 Tidal Volume PEEP Sodium 138 Potassium 3.1 L Chloride 100 Carbon Dioxide 29 Anion Gap 12 BUN 48 H Creatinine 3.6 H Est GFR ( Amer) 15 Est GFR (Non-Af Amer) 12 POC Glucose (mg/dL) Random Glucose 62 L Calcium 7.6 L Phosphorus 1.7 L Magnesium 1.8 Total Bilirubin 1.7 H AST 868 H D ALT 1479 H Alkaline Phosphatase 182 H D Total Protein 5.2 L Albumin 2.4 L Globulin 2.8 Albumin/Globulin Ratio 0.9 L Blood Type Antibody Screen 09/03/17 09/03/17 09/03/17 08:35 11:08 11:09 WBC RBC Hgb Hct MCV MCH MCHC RDW Plt Count MPV Neut % (Auto) Lymph % (Auto) [place] % (Auto) Eos % (Auto) Baso % (Auto) Neut # (Auto) Lymph # (Auto) [place] # (Auto) Eos # (Auto) Baso # (Auto) Differential Comment APTT Puncture Site R/b pCO2 24 L pO2 154 H HCO3 23.3 ABG pH 7.53 H ABG Total CO2 20.8 L ABG O2 Saturation 99.6 H ABG Base Excess -2.1 L ABG Hemoglobin 7.5 L ABG Carboxyhemoglobin 1.6 H POC ABG HHb (Measured) 0.4 ABG Methemoglobin 1.1 Christian Test Na A-a O2 Difference 101.0 Respiratory Index 0.7 Hgb O2 Saturation 96.8 Mechanical Rate 16 FiO2 40.0 Tidal Volume 500 PEEP 5 Sodium Potassium Chloride Carbon Dioxide Anion Gap BUN Creatinine Est GFR ( Amer) Est GFR (Non-Af Amer) POC Glucose (mg/dL) 54 L 58 L Random Glucose Calcium Phosphorus Magnesium Total Bilirubin AST ALT Alkaline Phosphatase Total Protein Albumin Globulin Albumin/Globulin Ratio Blood Type Antibody Screen 09/03/17 11:55 WBC RBC Hgb Hct MCV MCH MCHC RDW Plt Count MPV Neut % (Auto) Lymph % (Auto) [place] % (Auto) Eos % (Auto) Baso % (Auto) Neut # (Auto) Lymph # (Auto) [place] # (Auto) Eos # (Auto) Baso # (Auto) Differential Comment APTT Puncture Site pCO2 pO2 HCO3 ABG pH ABG Total CO2 ABG O2 Saturation ABG Base Excess ABG Hemoglobin ABG Carboxyhemoglobin POC ABG HHb (Measured) ABG Methemoglobin Christian Test A-a O2 Difference Respiratory Index Hgb O2 Saturation Mechanical Rate FiO2 Tidal Volume PEEP Sodium Potassium Chloride Carbon Dioxide Anion Gap BUN Creatinine Est GFR ( Amer) Est GFR (Non-Af Amer) POC Glucose (mg/dL) 152 H Random Glucose Calcium Phosphorus Magnesium Total Bilirubin AST ALT Alkaline Phosphatase Total Protein Albumin Globulin Albumin/Globulin Ratio Blood Type Antibody Screen Fingerstick Blood Sugar Results: 58 Assessment/Plan - Assessment and Plan (Free Text) Assessment: 76F w/ NSTEMI, CKD, s/p vfib arrest Plan: Neuro: No sedation, Lethargic Cardio: NSTEMI. S/p Vfib arrest. Cardiac cath when patient more stable Pulm: Intubated after code. Remained intubated. tolerated CPAP for 2 hours today Blanca PRN GI: Nephro. @ goal. Renal: AVF clotted. Dialysis cath place in [place]. Dialysis MWF Endo: DM, insulin aspart Q6, accuchecks PPX: heparin drip, GI PPX not indicated <Kimmie Mathis - Last Filed: 09/03/17 17:45> CCU Subjective - Physician Review Critical Care Time Spent (in minutes): 35 CCU Objective - Vital Signs / Intake & Output Vital Signs (Last 4 hours): Vital Signs Temp Pulse Resp BP Pulse Ox 09/03/17 16:56 103 H 15 135/72 75 L 09/03/17 16:09 114 H 18 142/81 100 09/03/17 16:00 97.7 F 120 H 23 99 09/03/17 14:56 103 H 14 118/73 100 09/03/17 14:33 91 H 12 113/66 100 09/03/17 13:56 102 H 16 89/56 L 100 Intake and Output (Last 8hrs): Intake & Output 09/03/17 09/03/17 09/03/17 06:59 14:59 22:59 Intake Total 330 1485 205 Balance 330 1485 205 Weight 158 lb Intake: IV 250 Intake, IV Amount 80 480 130 Right Hand 80 80 30 medial 400 100 Tube Feeding 200 200 75 Blood Product 325 Red Blood Cells Cpd As1 325 Lr Unit [id number] Other 50 230 Red Blood Cells Cpd As1 30 Lr Unit [id number] - Medications Active Medications: Active Medications Generic Name Dose Route Start Last Admin Trade Name Freq PRN Reason Stop Dose Admin Aspirin 81 mg 08/30/17 10:00 09/03/17 09:11 Aspirin Chewable PO 81 mg DAILY CAROLYNE Administration Epoetin Alan 8,000 unit 09/04/17 09:00 Procrit IV MWF CAROLYNE Ergocalciferol 1 cap 08/31/17 14:45 08/31/17 13:51 Drisdol 50,000 Intl Units Cap PO 1 cap Q7D CAROLYNE Administration Ferrous Gluconate 324 mg 08/31/17 10:00 09/03/17 17:27 Fergon PO 324 mg TID CAROLYNE Administration Aztreonam 1 gm/ Sodium 100 mls @ 100 mls/hr 08/31/17 13:30 09/03/17 14:19 Chloride IVPB 100 mls/hr Q12H CAROLYNE Administration Metronidazole 500 mg in 100 mls @ 100 mls/hr 08/31/17 14:30 09/03/17 15:22 Flagyl IVPB 100 mls/hr Q8H CAROLYNE Administration Heparin Sodium/Sodium Chloride 25,000 units in 250 mls @ 7.641 mls/hr 08:30 09/03/17 14:39 Heparin 73909 Units/250ml 1/2 Normal Saline IV 15.7 unit/kg/hr .Q24H PRN 10 mls/hr PROTOCOL Administration Protocol 12 UNIT/KG/HR Insulin Aspart 0 unit 09/01/17 11:49 09/03/17 17:29 Novolog SC Not Given Q6 [facility] Protocol Insulin Glargine 5 unit 09/03/17 22:00 Lantus SC HS [facility] Metoprolol Tartrate 12.5 mg 09/02/17 22:00 09/03/17 17:27 Lopressor PO 12.5 mg BID [facility] Administration Midodrine 10 mg 09/03/17 14:00 09/03/17 14:19 Proamatine NG 10 mg Q8 [facility] Administration Pantoprazole Sodium 40 mg 09/02/17 10:00 09/03/17 09:11 Protonix Inj IVP 40 mg DAILY [facility] Administration Rosuvastatin Calcium 5 mg 08/30/17 01:15 09/02/17 21:56 Crestor PO 5 mg HS [facility] Administration Vitamin B Complex/Vit C/Folic Acid 1 tab 08/31/17 08:00 09/03/17 07:52 Nephro-[place] PO 1 tab 0800 [facility] Administration - Patient Studies Lab Studies: Microbiology Studies 09/03/17 Unknown Gram Stain - Final Trachasp 08/29/17 06:30 Blood Culture - Preliminary Blood-Venous NO GROWTH AFTER 4 DAYS 08/29/17 06:00 Blood Culture - Preliminary Blood-Venous NO GROWTH AFTER 4 DAYS Lab Studies 09/03/17 09/03/17 09/03/17 Range/Units 17:28 11:55 11:09 WBC (4.8-10.8) K/uL RBC (3.80-5.20) Mil/uL Hgb (11.0-16.0) g/dL Hct (34.0-47.0) % MCV (81.0-99.0) fL MCH (27.0-31.0) pg MCHC (33.0-37.0) g/dL RDW (11.5-14.5) % Plt Count (130-400) K/uL MPV (7.2-11.7) fL Neut % (Auto) (50.0-75.0) % Lymph % (Auto) (20.0-40.0) % [place] % (Auto) (0.0-10.0) % Eos % (Auto) (0.0-4.0) % Baso % (Auto) (0.0-2.0) % Neut # (Auto) (1.8-7.0) K/uL Lymph # (Auto) (1.0-4.3) K/uL [place] # (Auto) (0.0-0.8) K/uL Eos # (Auto) (0.0-0.7) K/uL Baso # (Auto) (0.0-0.2) K/uL Differential Comment APTT (21-34) SECONDS Puncture Site pCO2 (35-45) mm/Hg pO2 (80-100) mm/Hg HCO3 (21-28) mmol/L ABG pH (7.35-7.45) ABG Total CO2 (22-28) mmol/L ABG O2 Saturation (95-98) % ABG Base Excess (-2.0-3.0) mmol/L ABG Hemoglobin (11.7-17.4) g/dL ABG Carboxyhemoglobin (0.5-1.5) % POC ABG HHb (Measured) (0.0-5.0) % ABG Methemoglobin (0.0-3.0) % Christian Test A-a O2 Difference mm/Hg Respiratory Index Hgb O2 Saturation (95.0-98.0) % Mechanical Rate FiO2 % Tidal Volume PEEP Sodium (132-148) mmol/L Potassium (3.6-5.2) mmol/L Chloride (98-107) mmol/L Carbon Dioxide (22-30) mmol/L Anion Gap (10-20) BUN (7-17) mg/dL Creatinine (0.7-1.2) mg/dL Est GFR ( Amer) Est GFR (Non-Af Amer) POC Glucose (mg/dL) 71 152 H 58 L (65-110) mg/dL Random Glucose (65-105) mg/dL Calcium (8.6-10.4) mg/dl Phosphorus (2.5-4.5) mg/dL Magnesium (1.6-2.3) mg/dL Total Bilirubin (0.2-1.3) mg/dL AST (14-36) U/L ALT (9-52) U/L Alkaline Phosphatase (38-126) U/L Total Protein (6.3-8.3) g/dL Albumin (3.5-5.0) g/dL Globulin (2.2-3.9) gm/dL Albumin/Globulin Ratio (1.0-2.1) 09/03/17 09/03/17 09/03/17 Range/Units 11:08 08:35 07:44 WBC (4.8-10.8) K/uL RBC (3.80-5.20) Mil/uL Hgb (11.0-16.0) g/dL Hct (34.0-47.0) % MCV (81.0-99.0) fL MCH (27.0-31.0) pg MCHC (33.0-37.0) g/dL RDW (11.5-14.5) % Plt Count (130-400) K/uL MPV (7.2-11.7) fL Neut % (Auto) (50.0-75.0) % Lymph % (Auto) (20.0-40.0) % [place] % (Auto) (0.0-10.0) % Eos % (Auto) (0.0-4.0) % Baso % (Auto) (0.0-2.0) % Neut # (Auto) (1.8-7.0) K/uL Lymph # (Auto) (1.0-4.3) K/uL [place] # (Auto) (0.0-0.8) K/uL Eos # (Auto) (0.0-0.7) K/uL Baso # (Auto) (0.0-0.2) K/uL Differential Comment APTT 66 H D (21-34) SECONDS Puncture Site R/b pCO2 24 L (35-45) mm/Hg pO2 154 H (80-100) mm/Hg HCO3 23.3 (21-28) mmol/L ABG pH 7.53 H (7.35-7.45) ABG Total CO2 20.8 L (22-28) mmol/L ABG O2 Saturation 99.6 H (95-98) % ABG Base Excess -2.1 L (-2.0-3.0) mmol/L ABG Hemoglobin 7.5 L (11.7-17.4) g/dL ABG Carboxyhemoglobin 1.6 H (0.5-1.5) % POC ABG HHb (Measured) 0.4 (0.0-5.0) % ABG Methemoglobin 1.1 (0.0-3.0) % Christian Test Na A-a O2 Difference 101.0 mm/Hg Respiratory Index 0.7 Hgb O2 Saturation 96.8 (95.0-98.0) % Mechanical Rate 16 FiO2 40.0 % Tidal Volume 500 PEEP 5 Sodium (132-148) mmol/L Potassium (3.6-5.2) mmol/L Chloride (98-107) mmol/L Carbon Dioxide (22-30) mmol/L Anion Gap (10-20) BUN (7-17) mg/dL Creatinine (0.7-1.2) mg/dL Est GFR ( Amer) Est GFR (Non-Af Amer) POC Glucose (mg/dL) 54 L (65-110) mg/dL Random Glucose (65-105) mg/dL Calcium (8.6-10.4) mg/dl Phosphorus (2.5-4.5) mg/dL Magnesium (1.6-2.3) mg/dL Total Bilirubin (0.2-1.3) mg/dL AST (14-36) U/L ALT (9-52) U/L Alkaline Phosphatase (38-126) U/L Total Protein (6.3-8.3) g/dL Albumin (3.5-5.0) g/dL Globulin (2.2-3.9) gm/dL Albumin/Globulin Ratio (1.0-2.1) 09/03/17 09/03/17 09/03/17 Range/Units 06:18 06:17 06:08 WBC 12.7 H (4.8-10.8) K/uL RBC 3.29 L (3.80-5.20) Mil/uL Hgb 9.2 L (11.0-16.0) g/dL Hct 28.0 L (34.0-47.0) % MCV 85.2 (81.0-99.0) fL MCH 28.0 (27.0-31.0) pg MCHC 32.8 L (33.0-37.0) g/dL RDW 15.8 H (11.5-14.5) % Plt Count 86 L (130-400) K/uL MPV 9.2 (7.2-11.7) fL Neut % (Auto) 81.8 H (50.0-75.0) % Lymph % (Auto) 12.3 L (20.0-40.0) % [place] % (Auto) 5.1 (0.0-10.0) % Eos % (Auto) 0.4 (0.0-4.0) % Baso % (Auto) 0.4 (0.0-2.0) % Neut # (Auto) 10.4 H (1.8-7.0) K/uL Lymph # (Auto) 1.6 (1.0-4.3) K/uL [place] # (Auto) 0.7 (0.0-0.8) K/uL Eos # (Auto) 0.0 (0.0-0.7) K/uL Baso # (Auto) 0.1 (0.0-0.2) K/uL Differential Comment APTT (21-34) SECONDS Puncture Site pCO2 (35-45) mm/Hg pO2 (80-100) mm/Hg HCO3 (21-28) mmol/L ABG pH (7.35-7.45) ABG Total CO2 (22-28) mmol/L ABG O2 Saturation (95-98) % ABG Base Excess (-2.0-3.0) mmol/L ABG Hemoglobin (11.7-17.4) g/dL ABG Carboxyhemoglobin (0.5-1.5) % POC ABG HHb (Measured) (0.0-5.0) % ABG Methemoglobin (0.0-3.0) % Christian Test A-a O2 Difference mm/Hg Respiratory Index Hgb O2 Saturation (95.0-98.0) % Mechanical Rate FiO2 % Tidal Volume PEEP Sodium 138 (132-148) mmol/L Potassium 3.1 L (3.6-5.2) mmol/L Chloride 100 (98-107) mmol/L Carbon Dioxide 29 (22-30) mmol/L Anion Gap 12 (10-20) BUN 48 H (7-17) mg/dL Creatinine 3.6 H (0.7-1.2) mg/dL Est GFR ( Amer) 15 Est GFR (Non-Af Amer) 12 POC Glucose (mg/dL) 168 H (65-110) mg/dL Random Glucose 62 L (65-105) mg/dL Calcium 7.6 L (8.6-10.4) mg/dl Phosphorus 1.7 L (2.5-4.5) mg/dL Magnesium 1.8 (1.6-2.3) mg/dL Total Bilirubin 1.7 H (0.2-1.3) mg/dL AST 868 H D (14-36) U/L ALT 1479 H (9-52) U/L Alkaline Phosphatase 182 H D (38-126) U/L Total Protein 5.2 L (6.3-8.3) g/dL Albumin 2.4 L (3.5-5.0) g/dL Globulin 2.8 (2.2-3.9) gm/dL Albumin/Globulin Ratio 0.9 L (1.0-2.1) 09/03/17 09/03/17 09/03/17 Range/Units 05:49 05:44 00:05 WBC (4.8-10.8) K/uL RBC (3.80-5.20) Mil/uL Hgb (11.0-16.0) g/dL Hct (34.0-47.0) % MCV (81.0-99.0) fL MCH (27.0-31.0) pg MCHC (33.0-37.0) g/dL RDW (11.5-14.5) % Plt Count (130-400) K/uL MPV (7.2-11.7) fL Neut % (Auto) (50.0-75.0) % Lymph % (Auto) (20.0-40.0) % [place] % (Auto) (0.0-10.0) % Eos % (Auto) (0.0-4.0) % Baso % (Auto) (0.0-2.0) % Neut # (Auto) (1.8-7.0) K/uL Lymph # (Auto) (1.0-4.3) K/uL [place] # (Auto) (0.0-0.8) K/uL Eos # (Auto) (0.0-0.7) K/uL Baso # (Auto) (0.0-0.2) K/uL Differential Comment APTT (21-34) SECONDS Puncture Site pCO2 (35-45) mm/Hg pO2 (80-100) mm/Hg HCO3 (21-28) mmol/L ABG pH (7.35-7.45) ABG Total CO2 (22-28) mmol/L ABG O2 Saturation (95-98) % ABG Base Excess (-2.0-3.0) mmol/L ABG Hemoglobin (11.7-17.4) g/dL ABG Carboxyhemoglobin (0.5-1.5) % POC ABG HHb (Measured) (0.0-5.0) % ABG Methemoglobin (0.0-3.0) % Christian Test A-a O2 Difference mm/Hg Respiratory Index Hgb O2 Saturation (95.0-98.0) % Mechanical Rate FiO2 % Tidal Volume PEEP Sodium (132-148) mmol/L Potassium (3.6-5.2) mmol/L Chloride (98-107) mmol/L Carbon Dioxide (22-30) mmol/L Anion Gap (10-20) BUN (7-17) mg/dL Creatinine (0.7-1.2) mg/dL Est GFR ( Amer) Est GFR (Non-Af Amer) POC Glucose (mg/dL) 47 L 57 L 130 H (65-110) mg/dL Random Glucose (65-105) mg/dL Calcium (8.6-10.4) mg/dl Phosphorus (2.5-4.5) mg/dL Magnesium (1.6-2.3) mg/dL Total Bilirubin (0.2-1.3) mg/dL AST (14-36) U/L ALT (9-52) U/L Alkaline Phosphatase (38-126) U/L Total Protein (6.3-8.3) g/dL Albumin (3.5-5.0) g/dL Globulin (2.2-3.9) gm/dL Albumin/Globulin Ratio (1.0-2.1) /11/15 Range/Units 18:18 WBC (4.8-10.8) K/uL RBC (3.80-5.20) Mil/uL Hgb (11.0-16.0) g/dL Hct (34.0-47.0) % MCV (81.0-99.0) fL MCH (27.0-31.0) pg MCHC (33.0-37.0) g/dL RDW (11.5-14.5) % Plt Count (130-400) K/uL MPV (7.2-11.7) fL Neut % (Auto) (50.0-75.0) % Lymph % (Auto) (20.0-40.0) % [place] % (Auto) (0.0-10.0) % Eos % (Auto) (0.0-4.0) % Baso % (Auto) (0.0-2.0) % Neut # (Auto) (1.8-7.0) K/uL Lymph # (Auto) (1.0-4.3) K/uL [place] # (Auto) (0.0-0.8) K/uL Eos # (Auto) (0.0-0.7) K/uL Baso # (Auto) (0.0-0.2) K/uL Differential Comment APTT (21-34) SECONDS Puncture Site pCO2 (35-45) mm/Hg pO2 (80-100) mm/Hg HCO3 (21-28) mmol/L ABG pH (7.35-7.45) ABG Total CO2 (22-28) mmol/L ABG O2 Saturation (95-98) % ABG Base Excess (-2.0-3.0) mmol/L ABG Hemoglobin (11.7-17.4) g/dL ABG Carboxyhemoglobin (0.5-1.5) % POC ABG HHb (Measured) (0.0-5.0) % ABG Methemoglobin (0.0-3.0) % Christian Test A-a O2 Difference mm/Hg Respiratory Index Hgb O2 Saturation (95.0-98.0) % Mechanical Rate FiO2 % Tidal Volume PEEP Sodium (132-148) mmol/L Potassium (3.6-5.2) mmol/L Chloride (98-107) mmol/L Carbon Dioxide (22-30) mmol/L Anion Gap (10-20) BUN (7-17) mg/dL Creatinine (0.7-1.2) mg/dL Est GFR ( Amer) Est GFR (Non-Af Amer) POC Glucose (mg/dL) 130 H (65-110) mg/dL Random Glucose (65-105) mg/dL Calcium (8.6-10.4) mg/dl Phosphorus (2.5-4.5) mg/dL Magnesium (1.6-2.3) mg/dL Total Bilirubin (0.2-1.3) mg/dL AST (14-36) U/L ALT (9-52) U/L Alkaline Phosphatase (38-126) U/L Total Protein (6.3-8.3) g/dL Albumin (3.5-5.0) g/dL Globulin (2.2-3.9) gm/dL Albumin/Globulin Ratio (1.0-2.1) Laboratory Results - last 24 hr 09/02/17 09/03/17 09/03/17 18:18 00:05 05:44 WBC RBC Hgb Hct MCV MCH MCHC RDW Plt Count MPV Neut % (Auto) Lymph % (Auto) [place] % (Auto) Eos % (Auto) Baso % (Auto) Neut # (Auto) Lymph # (Auto) [place] # (Auto) Eos # (Auto) Baso # (Auto) Differential Comment APTT Puncture Site pCO2 pO2 HCO3 ABG pH ABG Total CO2 ABG O2 Saturation ABG Base Excess ABG Hemoglobin ABG Carboxyhemoglobin POC ABG HHb (Measured) ABG Methemoglobin Christian Test A-a O2 Difference Respiratory Index Hgb O2 Saturation Mechanical Rate FiO2 Tidal Volume PEEP Sodium Potassium Chloride Carbon Dioxide Anion Gap BUN Creatinine Est GFR ( Amer) Est GFR (Non-Af Amer) POC Glucose (mg/dL) 130 H 130 H 57 L Random Glucose Calcium Phosphorus Magnesium Total Bilirubin AST ALT Alkaline Phosphatase Total Protein Albumin Globulin Albumin/Globulin Ratio 09/03/17 09/03/17 09/03/17 05:49 06:08 06:17 WBC RBC Hgb Hct MCV MCH MCHC RDW Plt Count MPV Neut % (Auto) Lymph % (Auto) [place] % (Auto) Eos % (Auto) Baso % (Auto) Neut # (Auto) Lymph # (Auto) [place] # (Auto) Eos # (Auto) Baso # (Auto) Differential Comment APTT Puncture Site pCO2 pO2 HCO3 ABG pH ABG Total CO2 ABG O2 Saturation ABG Base Excess ABG Hemoglobin ABG Carboxyhemoglobin POC ABG HHb (Measured) ABG Methemoglobin Christian Test A-a O2 Difference Respiratory Index Hgb O2 Saturation Mechanical Rate FiO2 Tidal Volume PEEP Sodium 138 Potassium 3.1 L Chloride 100 Carbon Dioxide 29 Anion Gap 12 BUN 48 H Creatinine 3.6 H Est GFR ( Amer) 15 Est GFR (Non-Af Amer) 12 POC Glucose (mg/dL) 47 L 168 H Random Glucose 62 L Calcium 7.6 L Phosphorus 1.7 L Magnesium 1.8 Total Bilirubin 1.7 H AST 868 H D ALT 1479 H Alkaline Phosphatase 182 H D Total Protein 5.2 L Albumin 2.4 L Globulin 2.8 Albumin/Globulin Ratio 0.9 L 09/03/17 09/03/17 09/03/17 06:18 07:44 08:35 WBC 12.7 H RBC 3.29 L Hgb 9.2 L Hct 28.0 L MCV 85.2 MCH 28.0 MCHC 32.8 L RDW 15.8 H Plt Count 86 L MPV 9.2 Neut % (Auto) 81.8 H Lymph % (Auto) 12.3 L [place] % (Auto) 5.1 Eos % (Auto) 0.4 Baso % (Auto) 0.4 Neut # (Auto) 10.4 H Lymph # (Auto) 1.6 [place] # (Auto) 0.7 Eos # (Auto) 0.0 Baso # (Auto) 0.1 Differential Comment APTT 66 H D Puncture Site R/b pCO2 24 L pO2 154 H HCO3 23.3 ABG pH 7.53 H ABG Total CO2 20.8 L ABG O2 Saturation 99.6 H ABG Base Excess -2.1 L ABG Hemoglobin 7.5 L ABG Carboxyhemoglobin 1.6 H POC ABG HHb (Measured) 0.4 ABG Methemoglobin 1.1 Christian Test Na A-a O2 Difference 101.0 Respiratory Index 0.7 Hgb O2 Saturation 96.8 Mechanical Rate 16 FiO2 40.0 Tidal Volume 500 PEEP 5 Sodium Potassium Chloride Carbon Dioxide Anion Gap BUN Creatinine Est GFR ( Amer) Est GFR (Non-Af Amer) POC Glucose (mg/dL) Random Glucose Calcium Phosphorus Magnesium Total Bilirubin AST ALT Alkaline Phosphatase Total Protein Albumin Globulin Albumin/Globulin Ratio 09/03/17 09/03/17 09/03/17 11:08 11:09 11:55 WBC RBC Hgb Hct MCV MCH MCHC RDW Plt Count MPV Neut % (Auto) Lymph % (Auto) [place] % (Auto) Eos % (Auto) Baso % (Auto) Neut # (Auto) Lymph # (Auto) [place] # (Auto) Eos # (Auto) Baso # (Auto) Differential Comment APTT Puncture Site pCO2 pO2 HCO3 ABG pH ABG Total CO2 ABG O2 Saturation ABG Base Excess ABG Hemoglobin ABG Carboxyhemoglobin POC ABG HHb (Measured) ABG Methemoglobin Christian Test A-a O2 Difference Respiratory Index Hgb O2 Saturation Mechanical Rate FiO2 Tidal Volume PEEP Sodium Potassium Chloride Carbon Dioxide Anion Gap BUN Creatinine Est GFR ( Amer) Est GFR (Non-Af Amer) POC Glucose (mg/dL) 54 L 58 L 152 H Random Glucose Calcium Phosphorus Magnesium Total Bilirubin AST ALT Alkaline Phosphatase Total Protein Albumin Globulin Albumin/Globulin Ratio 09/03/17 17:28 WBC RBC Hgb Hct MCV MCH MCHC RDW Plt Count MPV Neut % (Auto) Lymph % (Auto) [place] % (Auto) Eos % (Auto) Baso % (Auto) Neut # (Auto) Lymph # (Auto) [place] # (Auto) Eos # (Auto) Baso # (Auto) Differential Comment APTT Puncture Site pCO2 pO2 HCO3 ABG pH ABG Total CO2 ABG O2 Saturation ABG Base Excess ABG Hemoglobin ABG Carboxyhemoglobin POC ABG HHb (Measured) ABG Methemoglobin Christian Test A-a O2 Difference Respiratory Index Hgb O2 Saturation Mechanical Rate FiO2 Tidal Volume PEEP Sodium Potassium Chloride Carbon Dioxide Anion Gap BUN Creatinine Est GFR ( Amer) Est GFR (Non-Af Amer) POC Glucose (mg/dL) 71 Random Glucose Calcium Phosphorus Magnesium Total Bilirubin AST ALT Alkaline Phosphatase Total Protein Albumin Globulin Albumin/Globulin Ratio Assessment/Plan - Assessment and Plan (Free Text) Plan: Above resident note reviewed and verified. Patient with h/o NSTEMI, s/p cardiac arrest not intubated for airway proteciton and dx with severe ssytolic herat failure -add midodrine and tirate off pressors -continue HD as per renal -CPAP trials daily -continue empirical abx cc time 35 minutes
[2017-09-03] MEDS: Heparin25000 units/250ml 1/2NS 25,000 UNITS/250 ML BAG IV PRN (14:39)
--- NOTE | 2017-09-03 14:59 | CP.PCM.PN ---
Subjective - Date & Time of Evaluation Date of Evaluation: 09/03/17 Time of Evaluation: 14:57 - Subjective Subjective: Nephrology Consultation: Assessment: critical CKD stage 5 (N18.5) with hyperkalemia, acidosis now has ESRD on HD via [facility] pulm edema, CHF, NSTEMI, pleural effusions, pneumonia AMS, hyperglycemia s/p cardiac arrest, shock liver, A fib Diabetic chronic Kidney Disease (E11.22) Hypertensive Chronic Kidney Disease (I12.9) Anemia (D64.9), Hyperphosphatemia (E83.39), Secondary Hyperparathyroidism (E21.1 ), HTN (I12.9), vit D insuff, hx of colon CA, TIAs Plan HD tomorrow as ordered. no acute need today maintain hemodynamic stable. Patient not on ACEI/ARB due to low BP started iron supplements, MVI, epogen with HD, and Vit D vasc surgery following KDUR supplementation as needed Dose meds/antibiotics for ESRD/HD status. Avoid fleets enema/magnesium based laxatives. Avoid nephrotoxins/NSAIDs Glycemic control Further work up/management as per primary team Thanks for allowing me to participate in care of your patient. Will follow patient with you. Please call if any Qs. d/w team Dr Edson Norton Office: [phone] Chief Complaint; unable to obtain reason for consult: CKD management source of Info: EMR HPI: Pt is a 76 F with hx of diabetes Mellitus ( years), hypertension (years), CHF, TIA, Colon CA, CKD stage 4/5, has matured AVG in left arm presented with complaints of AMS and hyperglycemia as brought by family. now has elevated trop 100, hyperkalemia, AMS and elevated sugar, pulm edema. renal consult for CKD management. pt with AMS unable to provide any hx. she had received medical management for hyperkalemia. ROS: unable to obtain Physical Examination: General Appearance: ill appearing,intubated Vitals reviewed and noted as below Head; Atraumatic, normocephalic ENT: intubated EYES: PERRLA Neck; supple no lymphadenopathy, no thyromegaly or bruit Lungs: Normal respiratory rate/effort. Breath sounds bilateral clear, she is mechanically ventilated Heart: Normal rate. s1s2 normal. No rub or gallop. Extremities: no edema. No varicose veins. chronic hyperpigmented changes in legs Neurological: Patient is awake Skin: Warm and dry. Normal turgor. No rash. Palpitation: Normal elasticity for age Abdomen: Abdomen is soft. Bowel sounds +. There is no abdominal tenderness, no guarding/rigidity no organomegaly Psych: unable MSK: no joint tenderness or swelling. Digits and nails normal, no deformity : kidney or bladder not palpable Access: Left AVG without bruit. has left IJ shiley Labs/imaging reviewed. Past medical history, past surgical history, family history, social history, allergy reviewed and noted as below Family hx: no hx of CKD. Rest non-contributory Objective - Vital Signs/Intake and Output Vital Signs (last 24 hours): Temp Pulse Resp BP Pulse Ox 98.1 F 102 H 16 89/56 L 100 09/03/17 12:00 09/03/17 13:56 09/03/17 13:56 09/03/17 13:56 09/03/17 13:56 Intake and Output: 09/03/17 09/03/17 06:59 18:59 Intake Total 520 1215 Output Total 1100 Balance -580 1215 - Medications Medications: Current Medications Aspirin (Aspirin Chewable) 81 mg PO DAILY [facility] Last Admin: 09/03/17 09:11 Dose: 81 mg Epoetin Alan (Procrit) 8,000 unit IV MWF [facility] Ergocalciferol (Drisdol 50,000 Intl Units Cap) 1 cap PO Q7D [facility] Last Admin: 08/31/17 13:51 Dose: 1 cap Ferrous Gluconate (Fergon) 324 mg PO TID [facility] Last Admin: 09/03/17 14:19 Dose: 324 mg Aztreonam 1 gm/ Sodium (Chloride) 100 mls @ 100 mls/hr IVPB Q12H [facility] Last Admin: 09/03/17 14:19 Dose: 100 mls/hr Metronidazole (Flagyl) 500 mg in 100 mls @ 100 mls/hr IVPB Q8H [facility] Last Admin: 09/03/17 06:00 Dose: 100 mls/hr Heparin Sodium/Sodium Chloride (Heparin 04378 Units/250ml 1/2 Normal Saline) 25 ,000 units in 250 mls @ 7.641 mls/hr IV .Q24H PRN; Protocol; 12 UNIT/KG/HR PRN Reason: PROTOCOL Last Admin: 09/03/17 14:39 Dose: 15.7 unit/kg/hr, 10 mls/hr Insulin Aspart (Novolog) 0 unit SC Q6 [facility] PRN Reason: Protocol Last Admin: 09/03/17 11:08 Dose: Not Given Insulin Glargine (Lantus) 5 unit SC HS [facility] Metoprolol Tartrate (Lopressor) 12.5 mg PO BID [facility] Last Admin: 09/03/17 09:11 Dose: 12.5 mg Midodrine (Proamatine) 10 mg NG Q8 [facility] Last Admin: 09/03/17 14:19 Dose: 10 mg Pantoprazole Sodium (Protonix Inj) 40 mg IVP DAILY [facility] Last Admin: 09/03/17 09:11 Dose: 40 mg Rosuvastatin Calcium (Crestor) 5 mg PO HS [facility] Last Admin: 09/02/17 21:56 Dose: 5 mg Vitamin B Complex/Vit C/Folic Acid (Nephro-Kamron) 1 tab PO 0800 [facility] Last Admin: 09/03/17 07:52 Dose: 1 tab - Labs Labs: 09/03/17 06:18 09/03/17 06:17 PT 14.6 SECONDS (9.7-12.2) H 08/30/17 02:17 INR 1.3 08/30/17 02:17 APTT 66 SECONDS (21-34) H D 09/03/17 07:44
[2017-09-03] MEDS ORDERED: (Lantus) Insulin Glargine, Recombinant SC SCH (22:00)
--- NOTE | 2017-09-03 22:02 | CP.PCM.PN ---
Subjective - Date & Time of Evaluation Date of Evaluation: 09/03/17 Time of Evaluation: 02:25 - Subjective Subjective: dictated Objective - Vital Signs/Intake and Output Vital Signs (last 24 hours): Temp Pulse Resp BP Pulse Ox 97.7 F 95 H 16 103/57 L 100 09/03/17 16:00 09/03/17 18:56 09/03/17 18:56 09/03/17 18:56 09/03/17 18:56 Intake and Output: 09/03/17 09/04/17 18:59 06:59 Intake Total 1825 35 Balance 1825 35 - Medications Medications: Current Medications Aspirin (Aspirin Chewable) 81 mg PO DAILY [facility] Last Admin: 09/03/17 09:11 Dose: 81 mg Epoetin Alan (Procrit) 8,000 unit IV MWF [facility] Ergocalciferol (Drisdol 50,000 Intl Units Cap) 1 cap PO Q7D [facility] Last Admin: 08/31/17 13:51 Dose: 1 cap Ferrous Gluconate (Fergon) 324 mg PO TID [facility] Last Admin: 09/03/17 17:27 Dose: 324 mg Aztreonam 1 gm/ Sodium (Chloride) 100 mls @ 100 mls/hr IVPB Q12H [facility] Last Admin: 09/03/17 14:19 Dose: 100 mls/hr Metronidazole (Flagyl) 500 mg in 100 mls @ 100 mls/hr IVPB Q8H [facility] Last Admin: 09/03/17 15:22 Dose: 100 mls/hr Heparin Sodium/Sodium Chloride (Heparin 36695 Units/250ml 1/2 Normal Saline) 25 ,000 units in 250 mls @ 7.641 mls/hr IV .Q24H PRN; Protocol; 12 UNIT/KG/HR PRN Reason: PROTOCOL Last Admin: 09/03/17 14:39 Dose: 15.7 unit/kg/hr, 10 mls/hr Insulin Aspart (Novolog) 0 unit SC Q6 [facility] PRN Reason: Protocol Last Admin: 09/03/17 17:29 Dose: Not Given Insulin Glargine (Lantus) 5 unit SC HS [facility] Metoprolol Tartrate (Lopressor) 12.5 mg PO BID [facility] Last Admin: 09/03/17 17:27 Dose: 12.5 mg Midodrine (Proamatine) 10 mg NG Q8 [facility] Last Admin: 09/03/17 14:19 Dose: 10 mg Pantoprazole Sodium (Protonix Inj) 40 mg IVP DAILY [facility] Last Admin: 09/03/17 09:11 Dose: 40 mg Rosuvastatin Calcium (Crestor) 5 mg PO HS [facility] Last Admin: 09/02/17 21:56 Dose: 5 mg Vitamin B Complex/Vit C/Folic Acid (Nephro-Kamron) 1 tab PO 0800 [facility] Last Admin: 09/03/17 07:52 Dose: 1 tab - Labs Labs: 09/03/17 06:18 09/03/17 06:17 PT 14.6 SECONDS (9.7-12.2) H 08/30/17 02:17 INR 1.3 08/30/17 02:17 APTT 66 SECONDS (21-34) H D 09/03/17 07:44
[2017-09-03] MEDS: (Lantus) Insulin Glargine, Recombinant SC SCH (22:17)
[2017-09-04] MEDS: Aztreonam 1 GM in Sodium Chloride 0.9% 100 ML IVPB SCH ×2 (01:30→13:35)
--- NOTE | 2017-09-04 03:35 | PN ---
SUBJECTIVE: The patient was seen today and she remains intubated, on the vent in ICU, and her blood pressure was on the low side and since she is intubated, I am not able to ask about any complaints. PHYSICAL EXAMINATION: VITAL SIGNS: The patient is afebrile at 97.7, heart rate of 95, blood pressure 103/57, and respirations are on the vent, 16. HEENT: Head is atraumatic. She was opening her eyes. NECK: Supple. LUNGS: Clear. No crackles or rales present. HEART: S1 and S2, regular. ABDOMEN: Soft, nontender, no guarding, no rigidity present. She has no Cleaning catheter, no urine output. EXTREMITIES: No edema. LABORATORY DATA: Noted. Labs show white count is 12.7, hemoglobin 9.2, hematocrit 28, and platelet count is 86; her last platelet was 102, so platelets are a little bit less. Chemistry shows sodium is 138, potassium is 3.1, chloride is 100, CO2 is 29, anion gap is 12, BUN is 48, creatinine is 3.6, remains elevated. Her AST on liver enzymes are slightly better and her culture reports show there is no MRSA, blood cultures x2 are negative, sputum culture is pending. Chest x-ray today shows mild venous congestion, bibasilar airspace opacities, there is a small left pleural effusion. At this time, the white is count holding with the treatment, there is no MRSA reported and she has renal insufficiency. We will continue present antibiotics, I am waiting for the sputum C and S. She has mild failure of kidney and chronic renal failure, had Vfib, cardiac arrest and is on respiratory failure at this time and had a non-STEMI. We will follow the sputum culture, and we will continue Azactam and Flagyl as ordered. Karissa Adams MD
[2017-09-04 04:43] LABS: ARTERIAL BLOOD GAS HCO3 27.2 mmol/L (21-28); ARTERIAL BLOOD GAS HEMOGLOBIN 11.6 g/dL (11.7-17.4); ARTERIAL BLOOD GAS O2 SAT 99.5 % (95-98); ARTERIAL BLOOD GAS PCO2 30 mm/Hg (35-45); ARTERIAL BLOOD GAS PH 7.53 (7.35-7.45); ARTERIAL BLOOD GAS PO2 147 mm/Hg (80-100)
[2017-09-04] MEDS: (Novolog) Insulin Aspart, Recombinant 100 u/ml 10 ml vial SC SCH ×4 (06:00→19:15)
[2017-09-04] MEDS: metroNIDAZOLE IV 500 mg/100 ml 500 MG/100 ML BAG IVPB SCH ×3 (06:00→22:00)
[2017-09-04 06:25] LABS: BASO % 0.1 % (0.0-2.0); EOS % 0.4 % (0.0-4.0); HEMOGLOBIN 8.5 g/dL (11.0-16.0); LYMPH # 1.1 K/uL (1.0-4.3); LYMPH % 8.8 % (20.0-40.0); MEAN CELL VOLUME 85.5 fL (81.0-99.0); MEAN CORPUSCULAR HEMOGLOBIN 28.1 pg (27.0-31.0); MEAN CORPUSCULAR HGB CONC 32.9 g/dL (33.0-37.0); MEAN PLATELET VOLUME 10.5 fL (7.2-11.7); MONO % 8.3 % (0.0-10.0); NEUT # 10.1 K/uL (1.8-7.0); NEUT % 82.4 % (50.0-75.0); NRBC % 2.4 % (0.0-2.0); PLATELET COUNT 84 K/uL (130-400); RBC 3.02 Mil/uL (3.80-5.20); RED CELL DISTRIBUTION WIDTH 15.9 % (11.5-14.5); WHITE BLOOD COUNT 12.3 K/uL (4.8-10.8)
[2017-09-04 07:00] LABS: CALCIUM 7.9 mg/dl (8.6-10.4)
[2017-09-04 07:01] LABS: ALB/GLOB RATIO 0.8 (1.0-2.1); ALBUMIN 2.3 g/dL (3.5-5.0)
[2017-09-04] MEDS: Multivitamin Vitamin B Complex (Nephro-Vite) Tab PO SCH (07:39)
[2017-09-04 08:25] LABS: ANISOCYTOSIS SLIGHT; BANDS 1 % (0-2); EOSINOPHIL 1 % (0-4); LYMPHOCYTE 9 % (20-40); MONOCYTE 8 % (0-10); MYELOCYTE 1 % (0-0); NEUTROPHIL 81 % (50-75); PLATELET ESTIMATE DECREASED (NORMAL); POIKILOCYTOSIS SLIGHT; TOTAL CELLS COUNTED 100
[2017-09-04 08:26] LABS: BURR CELLS SLIGHT; HYPOCHROMIC SLIGHT; OVALOCYTES SLIGHT
[2017-09-04 08:27] LABS: GIANT PLATELETS PRESENT; LARGE PLATELETS PRESENT; TOXIC GRANULATION PRESENT
--- NOTE | 2017-09-04 08:41 | CP.PCM.PN ---
Subjective - Date & Time of Evaluation Date of Evaluation: 09/04/17 Time of Evaluation: 08:20 - Subjective Subjective: Patient remains intubated. They went back to [facility] settings yesterday afternoon. She was able to open her eyes when name is called. Also able to raise arms when asked. Also move legs when asked. On telemetry she was HR of 90s - 110s and atrial fibrillation. Systolic BP was in the 120s Yesterday I had conversation with daughter Annmarie Stauffer over the phone as well as two other family members at bedside. This morning no one at bedside, but I will try to update them later today. Objective - Vital Signs/Intake and Output Vital Signs (last 24 hours): Temp Pulse Resp BP Pulse Ox 98.5 F 102 H 16 123/79 100 09/04/17 04:00 09/04/17 06:56 09/04/17 06:56 09/04/17 06:56 09/04/17 06:56 Intake and Output: 09/04/17 09/04/17 06:59 18:59 Intake Total 820 35 Balance 820 35 - Medications Medications: Current Medications Aspirin (Aspirin Chewable) 81 mg PO DAILY [facility] Last Admin: 09/03/17 09:11 Dose: 81 mg Epoetin Alan (Procrit) 8,000 unit IV MWF [facility] Ergocalciferol (Drisdol 50,000 Intl Units Cap) 1 cap PO Q7D [facility] Last Admin: 08/31/17 13:51 Dose: 1 cap Ferrous Gluconate (Fergon) 324 mg PO TID [facility] Last Admin: 09/03/17 17:27 Dose: 324 mg Aztreonam 1 gm/ Sodium (Chloride) 100 mls @ 100 mls/hr IVPB Q12H [facility] Last Admin: 09/04/17 01:30 Dose: 100 mls/hr Metronidazole (Flagyl) 500 mg in 100 mls @ 100 mls/hr IVPB Q8H [facility] Last Admin: 09/04/17 06:00 Dose: 100 mls/hr Heparin Sodium/Sodium Chloride (Heparin 84087 Units/250ml 1/2 Normal Saline) 25 ,000 units in 250 mls @ 0 mls/hr IV .Q0M PRN; Protocol; Per Protocol PRN Reason: PROTOCOL Insulin Aspart (Novolog) 0 unit SC Q6 [facility] PRN Reason: Protocol Last Admin: 09/04/17 06:00 Dose: Not Given Insulin Glargine (Lantus) 5 unit SC [facility] Last Admin: 09/03/17 22:17 Dose: Not Given Metoprolol Tartrate (Lopressor) 12.5 mg PO BID [facility] Last Admin: 09/03/17 22:14 Dose: 12.5 mg Midodrine (Proamatine) 10 mg NG Q8 [facility] Last Admin: 09/04/17 06:30 Dose: 10 mg Pantoprazole Sodium (Protonix Inj) 40 mg IVP DAILY [facility] Last Admin: 09/03/17 09:11 Dose: 40 mg Rosuvastatin Calcium (Crestor) 5 mg PO HS [facility] Last Admin: 09/03/17 22:14 Dose: 5 mg Vitamin B Complex/Vit C/Folic Acid (Nephro-Kamron) 1 tab PO 0800 [facility] Last Admin: 09/04/17 07:39 Dose: 1 tab - Labs Labs: 09/04/17 06:19 09/04/17 06:17 PT 14.6 SECONDS (9.7-12.2) H 08/30/17 02:17 INR 1.3 08/30/17 02:17 APTT 65 SECONDS (21-34) H 09/04/17 06:19 - Constitutional Appears: Unkempt, Confused, Chronically Ill - Head Exam Head Exam: NORMAL INSPECTION - Eye Exam Eye Exam: Normal appearance - ENT Exam ENT Exam: Mucous Membranes Moist - Respiratory Exam Respiratory Exam: Decreased Breath Sounds Additional comments: Mechanical intubation - Cardiovascular Exam Cardiovascular Exam: Irregular Rhythm - GI/Abdominal Exam GI & Abdominal Exam: Soft - Neurological Exam Neurological Exam: Alert, Altered Neuro motor strength exam: Left Upper Extremity: 4, Right Upper Extremity: 4, Left Lower Extremity: 3, Right Lower Extremity: 3 - Psychiatric Exam Psychiatric exam: Depressed, Flat Affect - Skin Skin Exam: Normal Color, Warm Assessment and Plan - Assessment and Plan (Free Text) Assessment: As previously mentioned, this is a 76 year old female with a history of ESRD now getting HD, CHF, DM, HTN, hypercholesterolemia, and some sort of UT years before, repeated TIAs, and colon CA. She was brought in by family for altered mental status and ultimately found to have severe metabolic acidosis as well as a extremely elevated troponins. Plan: 1 Acute NSTEMI , S/P Hypotension /Asystol ,CPR / Sustained VT 09/04: atrial fibrillation appearance on telemetry, check a new 12 lead EKG. Remains on heparin ggt. 09/03: Remains in heparin ggt, statin, ASA. Hopefully at some point can have cardiac catherization. 09/02: Now off pressor medications. She remains on amiodarone Echo EF 30%. Troponins were as high as 103 then decreased. Currently on a heparin ggt, ASA, Statin. 2 Respiratory failure, intubation 09/04: Yesterday afternoon she was moved back to [facility] 09/03: Now changed to CPAP/PS settings. The chest XRAYs look better this morning following HD last night. 3 Acute renal failure 09/04: Currently MWF HD 09/03: Underwent HD yesterday and tolerated it well. CXRAY looks better 09/02/2017: She has had one session of HD so far. Mercedes another session today 4 Leukocytosis concerning for sepsis 09/03: Today decreased WBC. Cultures negative so far 09/02/2017: The elevated WBC maybe stress related. She remains on abx Aztreonam IV and Flagyl IV 5 Acute systolic heart failure 09/03: Monitor chest XRAYs. ECHO shows EF 30% 6 Pleural effusion 09/03: Improving CXRAYs 09/02/2017: Pleural effusions minimal at this time. Continue to monitor 7 Hyperglycemia and uncontrolled DM 09/03: Reccent accucheks 130s, 130, 160 8 Anemia of chronic disease, CKD 09/03: Yesterday had 1 unit of PRBC given during HD, receiving EPO
--- NOTE | 2017-09-04 08:48 | RAD ---
HISTORY: intubated COMPARISON: Chest x-ray performed 09/03/17 TECHNIQUE: Chest, one view. FINDINGS: Endotracheal tube terminates approximately 2.1 cm above the jordan. Nasogastric tube extends expected location of the stomach. Right IJ approach catheters extends the cavoatrial junction. LUNGS: Mild pulmonary venous congestion. Small left pleural effusion and associated consolidation. No definite pneumothorax. CARDIOVASCULAR: Cardiomegaly. Atherosclerotic calcifications of the aorta. Probable dense mitral annulus calcifications. OSSEOUS STRUCTURES: Degenerative changes. VISUALIZED UPPER ABDOMEN: Unremarkable. OTHER FINDINGS: None. IMPRESSION: Support lines and tubes as above. Mild pulmonary venous congestion. Small left pleural effusion and associated consolidation. Cardiomegaly.
[2017-09-04] MEDS: Heparin25000 units/250ml 1/2NS 25,000 UNITS/250 ML BAG IV PRN (09:00)
--- NOTE | 2017-09-04 14:14 | CP.PCM.PN ---
Subjective - Date & Time of Evaluation Date of Evaluation: 09/04/17 Time of Evaluation: 14:13 - Subjective Subjective: Nephrology Consultation: Assessment: critical CKD stage 5 (N18.5) with hyperkalemia, acidosis now has ESRD on HD via [facility] pulm edema, CHF, NSTEMI, pleural effusions, pneumonia AMS, hyperglycemia s/p cardiac arrest, shock liver, A fib Diabetic chronic Kidney Disease (E11.22) Hypertensive Chronic Kidney Disease (I12.9) Anemia (D64.9), Hyperphosphatemia (E83.39), Secondary Hyperparathyroidism (E21.1 ), HTN (I12.9), vit D insuff, hx of colon CA, TIAs Plan HD today as ordered. maintain hemodynamic stable. Patient not on ACEI/ARB due to low BP started iron supplements, MVI, epogen with HD, and Vit D vasc surgery has evaluated. ID and cardiology following KDUR supplementation as needed Dose meds/antibiotics for ESRD/HD status. Avoid fleets enema/magnesium based laxatives. Avoid nephrotoxins/NSAIDs Glycemic control Further work up/management as per primary team Thanks for allowing me to participate in care of your patient. Will follow patient with you. Please call if any Qs. d/w team Dr Edson Norton Office: [phone] Chief Complaint; unable to obtain reason for consult: CKD management source of Info: EMR HPI: Pt is a 76 F with hx of diabetes Mellitus ( years), hypertension (years), CHF, TIA, Colon CA, CKD stage 4/5, has matured AVG in left arm presented with complaints of AMS and hyperglycemia as brought by family. now has elevated trop 100, hyperkalemia, AMS and elevated sugar, pulm edema. renal consult for CKD management. pt with AMS unable to provide any hx. she had received medical management for hyperkalemia. ROS: unable to obtain Physical Examination: General Appearance: ill appearing,intubated Vitals reviewed and noted as below Head; Atraumatic, normocephalic ENT: intubated EYES: PERRLA Neck; supple no lymphadenopathy, no thyromegaly or bruit Lungs: Normal respiratory rate/effort. Breath sounds bilateral clear, she is mechanically ventilated Heart: Normal rate. s1s2 normal. No rub or gallop. Extremities: no edema. No varicose veins. chronic hyperpigmented changes in legs Neurological: Patient is not communicative Skin: Warm and dry. Normal turgor. No rash. Palpitation: Normal elasticity for age Abdomen: Abdomen is soft. Bowel sounds +. There is no abdominal tenderness, no guarding/rigidity no organomegaly Psych: unable MSK: no joint tenderness or swelling. Digits and nails normal, no deformity : kidney or bladder not palpable Access: Left AVG without bruit. has left IJ shiley Labs/imaging reviewed. Past medical history, past surgical history, family history, social history, allergy reviewed and noted as below Family hx: no hx of CKD. Rest non-contributory Objective - Vital Signs/Intake and Output Vital Signs (last 24 hours): Temp Pulse Resp BP Pulse Ox 98.5 F 97 H 19 121/71 99 09/04/17 04:00 09/04/17 13:00 09/04/17 13:00 09/04/17 12:56 09/04/17 13:00 Intake and Output: 09/04/17 09/04/17 06:59 18:59 Intake Total 820 35 Balance 820 35 - Medications Medications: Current Medications Aspirin (Aspirin Chewable) 81 mg PO DAILY [facility] Last Admin: 09/04/17 09:23 Dose: 81 mg Epoetin Alan (Procrit) 8,000 unit IV MWF [facility] Ergocalciferol (Drisdol 50,000 Intl Units Cap) 1 cap PO Q7D [facility] Last Admin: 08/31/17 13:51 Dose: 1 cap Ferrous Gluconate (Fergon) 324 mg PO TID [facility] Last Admin: 09/04/17 13:36 Dose: 324 mg Aztreonam 1 gm/ Sodium (Chloride) 100 mls @ 100 mls/hr IVPB Q12H [facility] Last Admin: 09/04/17 13:35 Dose: 100 mls/hr Metronidazole (Flagyl) 500 mg in 100 mls @ 100 mls/hr IVPB Q8H [facility] Last Admin: 09/04/17 13:35 Dose: 100 mls/hr Heparin Sodium/Sodium Chloride (Heparin 74717 Units/250ml 1/2 Normal Saline) 25 ,000 units in 250 mls @ 10.161 mls/hr IV .Q24H PRN; Protocol; 14 UNITS/KG/HR PRN Reason: PROTOCOL Insulin Aspart (Novolog) 0 unit SC Q6 [facility] PRN Reason: Protocol Last Admin: 09/04/17 12:27 Dose: Not Given Insulin Glargine (Lantus) 5 unit SC HS [facility] Last Admin: 09/03/17 22:17 Dose: Not Given Metoprolol Tartrate (Lopressor) 12.5 mg PO BID [facility] Last Admin: 09/04/17 09:23 Dose: 12.5 mg Midodrine (Proamatine) 10 mg NG Q8 [facility] Last Admin: 09/04/17 13:36 Dose: 10 mg Pantoprazole Sodium (Protonix Inj) 40 mg IVP DAILY [facility] Last Admin: 09/04/17 09:24 Dose: 40 mg Rosuvastatin Calcium (Crestor) 5 mg PO HS [facility] Last Admin: 09/03/17 22:14 Dose: 5 mg Vitamin B Complex/Vit C/Folic Acid (Nephro-[place]) 1 tab PO 0800 [facility] Last Admin: 09/04/17 07:39 Dose: 1 tab - Labs Labs: 09/04/17 06:19 09/04/17 06:17 PT 14.6 SECONDS (9.7-12.2) H 08/30/17 02:17 INR 1.3 08/30/17 02:17 APTT 65 SECONDS (21-34) H 09/04/17 06:19
--- NOTE | 2017-09-04 14:15 | CP.CCUPN ---
<Rex Romero - Last Filed: 09/04/17 14:29> CCU Subjective - Physician Review Subjective (Free Text): 08/30/17 15:06 Patient seen and examined at bedside AMS spoke with nephro and want to wait for diaylsis until cardio decides to do cath or not 08/30/17 17:16 PMD talked with cardio and Nephro. Medical managment for cardiac issues at this time. OK to go ahead with dialysis. First session tonight 09/02/17 10:35 Over weekend patient had Vfib arrest tolerated dialysis for 45 min before becoming hypotensive Patient will again have dialysis today Giving blood today 09/03/17 13:42 patient seen and examined today patient will need cath when more stable tolerated CPAP for 2 hours today Dialysis tomorrow 09/04/17 14:07 Patient seen and examined today Tolerating CPAP trial for majority of day Dialysis today CCU Objective - Vital Signs / Intake & Output Vital Signs (Last 4 hours): Vital Signs Pulse Resp BP Pulse Ox 09/04/17 13:00 97 H 19 99 09/04/17 12:56 86 18 121/71 100 09/04/17 12:00 81 19 96 09/04/17 11:56 79 20 107/62 100 09/04/17 11:00 82 19 100 09/04/17 10:56 101 H 20 106/62 100 Intake and Output (Last 8hrs): Intake & Output 09/03/17 09/04/17 09/04/17 22:59 06:59 14:59 Intake Total 630 530 35 Balance 630 530 35 Weight 160 lb Intake: Intake, IV Amount 280 280 10 Right Hand 80 80 10 Right Internal Jugular 100 medial 200 100 Tube Feeding 200 200 25 Other 150 50 Other: # Voids Urine, Voided 1 - Physical Exam Head: Positive for: Atraumatic, Normocephalic. Negative for: Tenderness, Contusion, Swelling Pupils: Positive for: PERRL. Negative for: Sluggish, Non-Reactive Extroacular Muscles: Positive for: EOMI Conjunctiva: Positive for: Normal Mouth: Positive for: Dry Pharnyx: Positive for: Normal Nose (External): Positive for: Atraumatic Neck: Positive for: Trachea Midline. Negative for: JVD Respiratory/Chest: Positive for: Good Air Exchange, Accessory Muscle Use, Decreased Breath Sounds (on bilateral bases). Negative for: Wheezes Cardiovascular: Positive for: Tachycardic Abdomen: Positive for: Distention, Normal Bowel Sounds. Negative for: Peritoneal Signs Upper Extremity: Negative for: Cyanosis, Edema Lower Extremity: Negative for: Edema Psychiatric: Positive for: Alert - Medications Active Medications: Active Medications Generic Name Dose Route Start Last Admin Trade Name Freq PRN Reason Stop Dose Admin Aspirin 81 mg 08/30/17 10:00 09/04/17 09:23 Aspirin Chewable PO 81 mg DAILY CAROLYNE Administration Epoetin Alan 8,000 unit 09/04/17 09:00 Procrit IV MWF CAROLYNE Ergocalciferol 1 cap 08/31/17 14:45 08/31/17 13:51 Drisdol 50,000 Intl Units Cap PO 1 cap Q7D CAROLYNE Administration Ferrous Gluconate 324 mg 08/31/17 10:00 09/04/17 13:36 Fergon PO 324 mg TID CAROLYNE Administration Aztreonam 1 gm/ Sodium 100 mls @ 100 mls/hr 08/31/17 13:30 09/04/17 13:35 Chloride IVPB 100 mls/hr Q12H CAROLYNE Administration Metronidazole 500 mg in 100 mls @ 100 mls/hr 08/31/17 14:30 09/04/17 13:35 Flagyl IVPB 100 mls/hr Q8H CAROLYNE Administration Heparin Sodium/Sodium Chloride 25,000 units in 250 mls @ 10.161 mls/hr 08:20 Heparin 60103 Units/250ml 1/2 Normal Saline IV .Q24H PRN PROTOCOL Protocol 14 UNITS/KG/HR Insulin Aspart 0 unit 09/01/17 11:49 09/04/17 12:27 Novolog SC Not Given Q6 CAROLYNE Protocol Insulin Glargine 5 unit 09/03/17 22:00 09/03/17 22:17 Lantus SC Not Given HS [facility] Metoprolol Tartrate 12.5 mg 09/02/17 22:00 09/04/17 09:23 Lopressor PO 12.5 mg BID CAROLYNE Administration Midodrine 10 mg 09/03/17 14:00 09/04/17 13:36 Proamatine NG 10 mg Q8 CAROLYNE Administration Pantoprazole Sodium 40 mg 09/02/17 10:00 09/04/17 09:24 Protonix Inj IVP 40 mg DAILY CAROLYNE Administration Rosuvastatin Calcium 5 mg 08/30/17 01:15 09/03/17 22:14 Crestor PO 5 mg HS CAROLYNE Administration Vitamin B Complex/Vit C/Folic Acid 1 tab 08/31/17 08:00 09/04/17 07:39 Nephro-Kamron PO 1 tab 0800 CAROLYNE Administration - Patient Studies Lab Studies: Microbiology Studies 08/29/17 06:30 Blood Culture - Final Blood-Venous NO GROWTH AFTER 5 DAYS Gram Stain - Final TEST NOT PERFORMED 08/29/17 06:00 Blood Culture - Final Blood-Venous NO GROWTH AFTER 5 DAYS Gram Stain - Final TEST NOT PERFORMED 09/03/17 Unknown Gram Stain - Final Trachasp Lab Studies 09/04/17 09/04/17 09/04/17 Range/Units 11:30 06:19 06:19 WBC 12.3 H (4.8-10.8) K/uL RBC 3.02 L (3.80-5.20) Mil/uL Hgb 8.5 L (11.0-16.0) g/dL Hct 25.8 L (34.0-47.0) % MCV 85.5 (81.0-99.0) fL MCH 28.1 (27.0-31.0) pg MCHC 32.9 L (33.0-37.0) g/dL RDW 15.9 H (11.5-14.5) % Plt Count 84 L (130-400) K/uL MPV 10.5 (7.2-11.7) fL Neut % (Auto) 82.4 H (50.0-75.0) % Lymph % (Auto) 8.8 L (20.0-40.0) % [place] % (Auto) 8.3 (0.0-10.0) % Eos % (Auto) 0.4 (0.0-4.0) % Baso % (Auto) 0.1 (0.0-2.0) % Neut # (Auto) 10.1 H (1.8-7.0) K/uL Lymph # (Auto) 1.1 (1.0-4.3) K/uL [place] # (Auto) 1.0 H (0.0-0.8) K/uL Eos # (Auto) 0.0 (0.0-0.7) K/uL Baso # (Auto) 0.0 (0.0-0.2) K/uL Neutrophils % (Manual) 81 H (50-75) % Band Neutrophils % 1 (0-2) % Lymphocytes % (Manual) 9 L (20-40) % Monocytes % (Manual) 8 (0-10) % Eosinophils % (Manual) 1 (0-4) % Myelocytes % 1 H (0-0) % Toxic Granulation Present Platelet Estimate Decreased L (NORMAL) Large Platelets Present Giant Platelets Present Hypochromasia (manual) Slight Poikilocytosis (manual Slight Anisocytosis (manual) Slight Macrocytosis (manual) Slight Ovalocytes Slight Elías Cells Slight APTT 65 H (21-34) SECONDS Puncture Site pCO2 (35-45) mm/Hg pO2 (80-100) mm/Hg HCO3 (21-28) mmol/L ABG pH (7.35-7.45) ABG Total CO2 (22-28) mmol/L ABG O2 Saturation (95-98) % ABG Base Excess (-2.0-3.0) mmol/L ABG Hemoglobin (11.7-17.4) g/dL ABG Carboxyhemoglobin (0.5-1.5) % POC ABG HHb (Measured) (0.0-5.0) % ABG Methemoglobin (0.0-3.0) % Christian Test A-a O2 Difference mm/Hg Respiratory Index Hgb O2 Saturation (95.0-98.0) % Vent Mode Mechanical Rate FiO2 % Tidal Volume PEEP Sodium (132-148) mmol/L Potassium (3.6-5.2) mmol/L Chloride (98-107) mmol/L Carbon Dioxide (22-30) mmol/L Anion Gap (10-20) BUN (7-17) mg/dL Creatinine (0.7-1.2) mg/dL Est GFR ( Amer) Est GFR (Non-Af Amer) POC Glucose (mg/dL) 90 (65-110) mg/dL Random Glucose (65-105) mg/dL Calcium (8.6-10.4) mg/dl Phosphorus (2.5-4.5) mg/dL Magnesium (1.6-2.3) mg/dL Total Bilirubin (0.2-1.3) mg/dL AST (14-36) U/L ALT (9-52) U/L Alkaline Phosphatase (38-126) U/L Total Protein (6.3-8.3) g/dL Albumin (3.5-5.0) g/dL Globulin (2.2-3.9) gm/dL Albumin/Globulin Ratio (1.0-2.1) 09/04/17 09/04/17 09/04/17 Range/Units 06:17 05:19 04:30 WBC (4.8-10.8) K/uL RBC (3.80-5.20) Mil/uL Hgb (11.0-16.0) g/dL Hct (34.0-47.0) % MCV (81.0-99.0) fL MCH (27.0-31.0) pg MCHC (33.0-37.0) g/dL RDW (11.5-14.5) % Plt Count (130-400) K/uL MPV (7.2-11.7) fL Neut % (Auto) (50.0-75.0) % Lymph % (Auto) (20.0-40.0) % [place] % (Auto) (0.0-10.0) % Eos % (Auto) (0.0-4.0) % Baso % (Auto) (0.0-2.0) % Neut # (Auto) (1.8-7.0) K/uL Lymph # (Auto) (1.0-4.3) K/uL [place] # (Auto) (0.0-0.8) K/uL Eos # (Auto) (0.0-0.7) K/uL Baso # (Auto) (0.0-0.2) K/uL Neutrophils % (Manual) (50-75) % Band Neutrophils % (0-2) % Lymphocytes % (Manual) (20-40) % Monocytes % (Manual) (0-10) % Eosinophils % (Manual) (0-4) % Myelocytes % (0-0) % Toxic Granulation Platelet Estimate (NORMAL) Large Platelets Giant Platelets Hypochromasia (manual) Poikilocytosis (manual Anisocytosis (manual) Macrocytosis (manual) Ovalocytes Elías Cells APTT (21-34) SECONDS Puncture Site Rb pCO2 30 L (35-45) mm/Hg pO2 147 H (80-100) mm/Hg HCO3 27.2 (21-28) mmol/L ABG pH 7.53 H (7.35-7.45) ABG Total CO2 26.0 (22-28) mmol/L ABG O2 Saturation 99.5 H (95-98) % ABG Base Excess 2.9 (-2.0-3.0) mmol/L ABG Hemoglobin 11.6 L (11.7-17.4) g/dL ABG Carboxyhemoglobin 1.8 H (0.5-1.5) % POC ABG HHb (Measured) 0.5 (0.0-5.0) % ABG Methemoglobin 0.9 (0.0-3.0) % Christian Test Na A-a O2 Difference 101.0 mm/Hg Respiratory Index 0.7 Hgb O2 Saturation 96.8 (95.0-98.0) % Vent Mode Prvc Mechanical Rate 16 FiO2 40.0 % Tidal Volume 500 PEEP 5 Sodium 139 (132-148) mmol/L Potassium 3.6 (3.6-5.2) mmol/L Chloride 101 (98-107) mmol/L Carbon Dioxide 28 (22-30) mmol/L Anion Gap 14 (10-20) BUN 59 H (7-17) mg/dL Creatinine 4.5 H (0.7-1.2) mg/dL Est GFR ( Amer) 12 Est GFR (Non-Af Amer) 10 POC Glucose (mg/dL) 118 H (65-110) mg/dL Random Glucose 100 (65-105) mg/dL Calcium 7.9 L (8.6-10.4) mg/dl Phosphorus 2.3 L (2.5-4.5) mg/dL Magnesium 2.1 (1.6-2.3) mg/dL Total Bilirubin 0.9 (0.2-1.3) mg/dL AST 1487 H (14-36) U/L ALT 1201 H (9-52) U/L Alkaline Phosphatase 196 H (38-126) U/L Total Protein 5.1 L (6.3-8.3) g/dL Albumin 2.3 L (3.5-5.0) g/dL Globulin 2.8 (2.2-3.9) gm/dL Albumin/Globulin Ratio 0.8 L (1.0-2.1) 09/04/17 09/03/17 Range/Units 00:11 17:28 WBC (4.8-10.8) K/uL RBC (3.80-5.20) Mil/uL Hgb (11.0-16.0) g/dL Hct (34.0-47.0) % MCV (81.0-99.0) fL MCH (27.0-31.0) pg MCHC (33.0-37.0) g/dL RDW (11.5-14.5) % Plt Count (130-400) K/uL MPV (7.2-11.7) fL Neut % (Auto) (50.0-75.0) % Lymph % (Auto) (20.0-40.0) % [place] % (Auto) (0.0-10.0) % Eos % (Auto) (0.0-4.0) % Baso % (Auto) (0.0-2.0) % Neut # (Auto) (1.8-7.0) K/uL Lymph # (Auto) (1.0-4.3) K/uL [place] # (Auto) (0.0-0.8) K/uL Eos # (Auto) (0.0-0.7) K/uL Baso # (Auto) (0.0-0.2) K/uL Neutrophils % (Manual) (50-75) % Band Neutrophils % (0-2) % Lymphocytes % (Manual) (20-40) % Monocytes % (Manual) (0-10) % Eosinophils % (Manual) (0-4) % Myelocytes % (0-0) % Toxic Granulation Platelet Estimate (NORMAL) Large Platelets Giant Platelets Hypochromasia (manual) Poikilocytosis (manual Anisocytosis (manual) Macrocytosis (manual) Ovalocytes Derry Cells APTT (21-34) SECONDS Puncture Site pCO2 (35-45) mm/Hg pO2 (80-100) mm/Hg HCO3 (21-28) mmol/L ABG pH (7.35-7.45) ABG Total CO2 (22-28) mmol/L ABG O2 Saturation (95-98) % ABG Base Excess (-2.0-3.0) mmol/L ABG Hemoglobin (11.7-17.4) g/dL ABG Carboxyhemoglobin (0.5-1.5) % POC ABG HHb (Measured) (0.0-5.0) % ABG Methemoglobin (0.0-3.0) % Christian Test A-a O2 Difference mm/Hg Respiratory Index Hgb O2 Saturation (95.0-98.0) % Vent Mode Mechanical Rate FiO2 % Tidal Volume PEEP Sodium (132-148) mmol/L Potassium (3.6-5.2) mmol/L Chloride (98-107) mmol/L Carbon Dioxide (22-30) mmol/L Anion Gap (10-20) BUN (7-17) mg/dL Creatinine (0.7-1.2) mg/dL Est GFR ( Amer) Est GFR (Non-Af Amer) POC Glucose (mg/dL) 81 71 (65-110) mg/dL Random Glucose (65-105) mg/dL Calcium (8.6-10.4) mg/dl Phosphorus (2.5-4.5) mg/dL Magnesium (1.6-2.3) mg/dL Total Bilirubin (0.2-1.3) mg/dL AST (14-36) U/L ALT (9-52) U/L Alkaline Phosphatase (38-126) U/L Total Protein (6.3-8.3) g/dL Albumin (3.5-5.0) g/dL Globulin (2.2-3.9) gm/dL Albumin/Globulin Ratio (1.0-2.1) Laboratory Results - last 24 hr 09/03/17 09/04/17 09/04/17 17:28 00:11 04:30 WBC RBC Hgb Hct MCV MCH MCHC RDW Plt Count MPV Neut % (Auto) Lymph % (Auto) [place] % (Auto) Eos % (Auto) Baso % (Auto) Neut # (Auto) Lymph # (Auto) [place] # (Auto) Eos # (Auto) Baso # (Auto) Neutrophils % (Manual) Band Neutrophils % Lymphocytes % (Manual) Monocytes % (Manual) Eosinophils % (Manual) Myelocytes % Toxic Granulation Platelet Estimate Large Platelets Giant Platelets Hypochromasia (manual) Poikilocytosis (manual Anisocytosis (manual) Macrocytosis (manual) Ovalocytes [place]erry Cells APTT Puncture Site Rb pCO2 30 L pO2 147 H HCO3 27.2 ABG pH 7.53 H ABG Total CO2 26.0 ABG O2 Saturation 99.5 H ABG Base Excess 2.9 ABG Hemoglobin 11.6 L ABG Carboxyhemoglobin 1.8 H POC ABG HHb (Measured) 0.5 ABG Methemoglobin 0.9 Christian Test Na A-a O2 Difference 101.0 Respiratory Index 0.7 Hgb O2 Saturation 96.8 Vent Mode Prvc Mechanical Rate 16 FiO2 40.0 Tidal Volume 500 PEEP 5 Sodium Potassium Chloride Carbon Dioxide Anion Gap BUN Creatinine Est GFR ( Amer) Est GFR (Non-Af Amer) POC Glucose (mg/dL) 71 81 Random Glucose Calcium Phosphorus Magnesium Total Bilirubin AST ALT Alkaline Phosphatase Total Protein Albumin Globulin Albumin/Globulin Ratio 09/04/17 09/04/17 09/04/17 05:19 06:17 06:19 WBC 12.3 H RBC 3.02 L Hgb 8.5 L Hct 25.8 L MCV 85.5 MCH 28.1 MCHC 32.9 L RDW 15.9 H Plt Count 84 L MPV 10.5 Neut % (Auto) 82.4 H Lymph % (Auto) 8.8 L [place] % (Auto) 8.3 Eos % (Auto) 0.4 Baso % (Auto) 0.1 Neut # (Auto) 10.1 H Lymph # (Auto) 1.1 [place] # (Auto) 1.0 H Eos # (Auto) 0.0 Baso # (Auto) 0.0 Neutrophils % (Manual) 81 H Band Neutrophils % 1 Lymphocytes % (Manual) 9 L Monocytes % (Manual) 8 Eosinophils % (Manual) 1 Myelocytes % 1 H Toxic Granulation Present Platelet Estimate Decreased L Large Platelets Present Giant Platelets Present Hypochromasia (manual) Slight Poikilocytosis (manual Slight Anisocytosis (manual) Slight Macrocytosis (manual) Slight Ovalocytes Slight Elías Cells Slight APTT Puncture Site pCO2 pO2 HCO3 ABG pH ABG Total CO2 ABG O2 Saturation ABG Base Excess ABG Hemoglobin ABG Carboxyhemoglobin POC ABG HHb (Measured) ABG Methemoglobin Christian Test A-a O2 Difference Respiratory Index Hgb O2 Saturation Vent Mode Mechanical Rate FiO2 Tidal Volume PEEP Sodium 139 Potassium 3.6 Chloride 101 Carbon Dioxide 28 Anion Gap 14 BUN 59 H Creatinine 4.5 H Est GFR ( Amer) 12 Est GFR (Non-Af Amer) 10 POC Glucose (mg/dL) 118 H Random Glucose 100 Calcium 7.9 L Phosphorus 2.3 L Magnesium 2.1 Total Bilirubin 0.9 AST 1487 H ALT 1201 H Alkaline Phosphatase 196 H Total Protein 5.1 L Albumin 2.3 L Globulin 2.8 Albumin/Globulin Ratio 0.8 L 09/04/17 09/04/17 06:19 11:30 WBC RBC Hgb Hct MCV MCH MCHC RDW Plt Count MPV Neut % (Auto) Lymph % (Auto) [place] % (Auto) Eos % (Auto) Baso % (Auto) Neut # (Auto) Lymph # (Auto) [place] # (Auto) Eos # (Auto) Baso # (Auto) Neutrophils % (Manual) Band Neutrophils % Lymphocytes % (Manual) Monocytes % (Manual) Eosinophils % (Manual) Myelocytes % Toxic Granulation Platelet Estimate Large Platelets Giant Platelets Hypochromasia (manual) Poikilocytosis (manual Anisocytosis (manual) Macrocytosis (manual) Ovalocytes Elías Cells APTT 65 H Puncture Site pCO2 pO2 HCO3 ABG pH ABG Total CO2 ABG O2 Saturation ABG Base Excess ABG Hemoglobin ABG Carboxyhemoglobin POC ABG HHb (Measured) ABG Methemoglobin Christian Test A-a O2 Difference Respiratory Index Hgb O2 Saturation Vent Mode Mechanical Rate FiO2 Tidal Volume PEEP Sodium Potassium Chloride Carbon Dioxide Anion Gap BUN Creatinine Est GFR ( Amer) Est GFR (Non-Af Amer) POC Glucose (mg/dL) 90 Random Glucose Calcium Phosphorus Magnesium Total Bilirubin AST ALT Alkaline Phosphatase Total Protein Albumin Globulin Albumin/Globulin Ratio EKG/Cardiology Studies: Cardiology / EKG Studies 09/04/17 08:48 EKG [ELECTROCARDIOGRAM] Routine Comment: Mode Of Transportation: Reason For Exam: atrial fibrillation Precautions: Standard Fingerstick Blood Sugar Results: 90 Assessment/Plan - Assessment and Plan (Free Text) Assessment: 76F NSTEMI, ESRD on HD Plan: Neuro: Intubated, sedated Cardio: NSTEMI * Continue heparin for now * ASA 81 QD * lopressor 12.5 BID * midodrine 10 Q8 * crestor 5 PO HS Pulm: Inutbated, Tolerating CPAP for majority of day today * Duoneb Q4 GI: No acute issues * Nepro tube feed at goal Renal: ESRD on HD MWF. Nephro (Errol) * Procrit * Vit D * Fergon * Vit B Endo: IDDM * aspart sc Q6 * glargine 5u SC HS ID: Sputum culture pending. ID (Angie) * aztreonam 1g q12 * Flagyl 500 Q8 PPX: Protonix, Heparin drip, CI to SCD (swelling) <Piotr Camargo S - Last Filed: 09/04/17 16:08> CCU Objective - Vital Signs / Intake & Output Vital Signs (Last 4 hours): Vital Signs Temp Pulse Pulse Resp BP BP Pulse Ox 09/04/17 15:11 84 19 130/69 100 09/04/17 15:00 89 20 100 09/04/17 14:56 79 17 124/72 93 L 09/04/17 14:50 131/78 09/04/17 14:41 86 17 131/78 100 09/04/17 14:35 122/83 09/04/17 14:26 94 H 20 122/83 100 09/04/17 14:20 123/74 09/04/17 14:10 90 19 123/74 100 09/04/17 14:05 97.8 F 87 87 19 130/72 130/72 99 09/04/17 14:00 86 19 100 09/04/17 13:55 97.8 F 100 H 18 123/79 96 09/04/17 13:00 97 H 19 99 09/04/17 12:56 86 18 121/71 100 Intake and Output (Last 8hrs): Intake & Output 09/04/17 09/04/17 09/04/17 06:59 14:59 22:59 Intake Total 530 340 35 Balance 530 340 35 Weight 160 lb Intake: Intake, IV Amount 280 80 10 Right Hand 80 80 10 Right Internal Jugular 100 medial 100 Tube Feeding 200 200 25 Other 50 60 Other: # Voids Urine, Voided 1 - Medications Active Medications: Active Medications Generic Name Dose Route Start Last Admin Trade Name Freq PRN Reason Stop Dose Admin Albuterol/Ipratropium 3 ml 09/04/17 16:00 Duoneb 3 Mg/0.5 Mg (3 Ml) Ud INH RQ4 CAROLYNE Aspirin 81 mg 08/30/17 10:00 09/04/17 09:23 Aspirin Chewable PO 81 mg DAILY CAROLYNE Administration Epoetin Alan 8,000 unit 09/04/17 09:00 Procrit IV MWF [facility] Ergocalciferol 1 cap 08/31/17 14:45 08/31/17 13:51 Drisdol 50,000 Intl Units Cap PO 1 cap Q7D CAROLYNE Administration Ferrous Gluconate 324 mg 08/31/17 10:00 09/04/17 13:36 Fergon PO 324 mg TID CAROLYNE Administration Aztreonam 1 gm/ Sodium 100 mls @ 100 mls/hr 08/31/17 13:30 09/04/17 13:35 Chloride IVPB 100 mls/hr Q12H CAROLYNE Administration Metronidazole 500 mg in 100 mls @ 100 mls/hr 08/31/17 14:30 09/04/17 13:35 Flagyl IVPB 100 mls/hr Q8H CAROLYNE Administration Heparin Sodium/Sodium Chloride 25,000 units in 250 mls @ 10.161 mls/hr 08:20 Heparin 89991 Units/250ml 1/2 Normal Saline IV .Q24H PRN PROTOCOL Protocol 14 UNITS/KG/HR Insulin Aspart 0 unit 09/01/17 11:49 09/04/17 12:27 Novolog SC Not Given Q6 [facility] Protocol Insulin Glargine 5 unit 09/03/17 22:00 09/03/17 22:17 Lantus SC Not Given HS [facility] Metoprolol Tartrate 12.5 mg 09/02/17 22:00 09/04/17 09:23 Lopressor PO 12.5 mg BID [facility] Administration Midodrine 10 mg 09/03/17 14:00 09/04/17 13:36 Proamatine NG 10 mg Q8 CAROLYNE Administration Pantoprazole Sodium 40 mg 09/02/17 10:00 09/04/17 09:24 Protonix Inj IVP 40 mg DAILY [facility] Administration Rosuvastatin Calcium 5 mg 08/30/17 01:15 09/03/17 22:14 Crestor PO 5 mg HS CAROLYNE Administration Vitamin B Complex/Vit C/Folic Acid 1 tab 08/31/17 08:00 09/04/17 07:39 Nephro-Kamron PO 1 tab 0800 [facility] Administration - Patient Studies Lab Studies: Microbiology Studies 08/29/17 06:30 Blood Culture - Final Blood-Venous NO GROWTH AFTER 5 DAYS Gram Stain - Final TEST NOT PERFORMED 08/29/17 06:00 Blood Culture - Final Blood-Venous NO GROWTH AFTER 5 DAYS Gram Stain - Final TEST NOT PERFORMED 09/03/17 Unknown Gram Stain - Final Trachasp Lab Studies 09/04/17 09/04/17 09/04/17 Range/Units 11:30 06:19 06:19 WBC 12.3 H (4.8-10.8) K/uL RBC 3.02 L (3.80-5.20) Mil/uL Hgb 8.5 L (11.0-16.0) g/dL Hct 25.8 L (34.0-47.0) % MCV 85.5 (81.0-99.0) fL MCH 28.1 (27.0-31.0) pg MCHC 32.9 L (33.0-37.0) g/dL RDW 15.9 H (11.5-14.5) % Plt Count 84 L (130-400) K/uL MPV 10.5 (7.2-11.7) fL Neut % (Auto) 82.4 H (50.0-75.0) % Lymph % (Auto) 8.8 L (20.0-40.0) % [place] % (Auto) 8.3 (0.0-10.0) % Eos % (Auto) 0.4 (0.0-4.0) % Baso % (Auto) 0.1 (0.0-2.0) % Neut # (Auto) 10.1 H (1.8-7.0) K/uL Lymph # (Auto) 1.1 (1.0-4.3) K/uL [place] # (Auto) 1.0 H (0.0-0.8) K/uL Eos # (Auto) 0.0 (0.0-0.7) K/uL Baso # (Auto) 0.0 (0.0-0.2) K/uL Neutrophils % (Manual) 81 H (50-75) % Band Neutrophils % 1 (0-2) % Lymphocytes % (Manual) 9 L (20-40) % Monocytes % (Manual) 8 (0-10) % Eosinophils % (Manual) 1 (0-4) % Myelocytes % 1 H (0-0) % Toxic Granulation Present Platelet Estimate Decreased L (NORMAL) Large Platelets Present Giant Platelets Present Hypochromasia (manual) Slight Poikilocytosis (manual Slight Anisocytosis (manual) Slight Macrocytosis (manual) Slight Ovalocytes Slight [place] Cells Slight APTT 65 H (21-34) SECONDS Puncture Site pCO2 (35-45) mm/Hg pO2 (80-100) mm/Hg HCO3 (21-28) mmol/L ABG pH (7.35-7.45) ABG Total CO2 (22-28) mmol/L ABG O2 Saturation (95-98) % ABG Base Excess (-2.0-3.0) mmol/L ABG Hemoglobin (11.7-17.4) g/dL ABG Carboxyhemoglobin (0.5-1.5) % POC ABG HHb (Measured) (0.0-5.0) % ABG Methemoglobin (0.0-3.0) % Christian Test A-a O2 Difference mm/Hg Respiratory Index Hgb O2 Saturation (95.0-98.0) % Vent Mode Mechanical Rate FiO2 % Tidal Volume PEEP Sodium (132-148) mmol/L Potassium (3.6-5.2) mmol/L Chloride (98-107) mmol/L Carbon Dioxide (22-30) mmol/L Anion Gap (10-20) BUN (7-17) mg/dL Creatinine (0.7-1.2) mg/dL Est GFR ( Amer) Est GFR (Non-Af Amer) POC Glucose (mg/dL) 90 (65-110) mg/dL Random Glucose (65-105) mg/dL Calcium (8.6-10.4) mg/dl Phosphorus (2.5-4.5) mg/dL Magnesium (1.6-2.3) mg/dL Total Bilirubin (0.2-1.3) mg/dL AST (14-36) U/L ALT (9-52) U/L Alkaline Phosphatase (38-126) U/L Total Protein (6.3-8.3) g/dL Albumin (3.5-5.0) g/dL Globulin (2.2-3.9) gm/dL Albumin/Globulin Ratio (1.0-2.1) 09/04/17 09/04/17 09/04/17 Range/Units 06:17 05:19 04:30 WBC (4.8-10.8) K/uL RBC (3.80-5.20) Mil/uL Hgb (11.0-16.0) g/dL Hct (34.0-47.0) % MCV (81.0-99.0) fL MCH (27.0-31.0) pg MCHC (33.0-37.0) g/dL RDW (11.5-14.5) % Plt Count (130-400) K/uL MPV (7.2-11.7) fL Neut % (Auto) (50.0-75.0) % Lymph % (Auto) (20.0-40.0) % [place] % (Auto) (0.0-10.0) % Eos % (Auto) (0.0-4.0) % Baso % (Auto) (0.0-2.0) % Neut # (Auto) (1.8-7.0) K/uL Lymph # (Auto) (1.0-4.3) K/uL [place] # (Auto) (0.0-0.8) K/uL Eos # (Auto) (0.0-0.7) K/uL Baso # (Auto) (0.0-0.2) K/uL Neutrophils % (Manual) (50-75) % Band Neutrophils % (0-2) % Lymphocytes % (Manual) (20-40) % Monocytes % (Manual) (0-10) % Eosinophils % (Manual) (0-4) % Myelocytes % (0-0) % Toxic Granulation Platelet Estimate (NORMAL) Large Platelets Giant Platelets Hypochromasia (manual) Poikilocytosis (manual Anisocytosis (manual) Macrocytosis (manual) Ovalocytes Elías Cells APTT (21-34) SECONDS Puncture Site Rb pCO2 30 L (35-45) mm/Hg pO2 147 H (80-100) mm/Hg HCO3 27.2 (21-28) mmol/L ABG pH 7.53 H (7.35-7.45) ABG Total CO2 26.0 (22-28) mmol/L ABG O2 Saturation 99.5 H (95-98) % ABG Base Excess 2.9 (-2.0-3.0) mmol/L ABG Hemoglobin 11.6 L (11.7-17.4) g/dL ABG Carboxyhemoglobin 1.8 H (0.5-1.5) % POC ABG HHb (Measured) 0.5 (0.0-5.0) % ABG Methemoglobin 0.9 (0.0-3.0) % Christian Test Na A-a O2 Difference 101.0 mm/Hg Respiratory Index 0.7 Hgb O2 Saturation 96.8 (95.0-98.0) % Vent Mode Prvc Mechanical Rate 16 FiO2 40.0 % Tidal Volume 500 PEEP 5 Sodium 139 (132-148) mmol/L Potassium 3.6 (3.6-5.2) mmol/L Chloride 101 (98-107) mmol/L Carbon Dioxide 28 (22-30) mmol/L Anion Gap 14 (10-20) BUN 59 H (7-17) mg/dL Creatinine 4.5 H (0.7-1.2) mg/dL Est GFR ( Amer) 12 Est GFR (Non-Af Amer) 10 POC Glucose (mg/dL) 118 H (65-110) mg/dL Random Glucose 100 (65-105) mg/dL Calcium 7.9 L (8.6-10.4) mg/dl Phosphorus 2.3 L (2.5-4.5) mg/dL Magnesium 2.1 (1.6-2.3) mg/dL Total Bilirubin 0.9 (0.2-1.3) mg/dL AST 1487 H (14-36) U/L ALT 1201 H (9-52) U/L Alkaline Phosphatase 196 H (38-126) U/L Total Protein 5.1 L (6.3-8.3) g/dL Albumin 2.3 L (3.5-5.0) g/dL Globulin 2.8 (2.2-3.9) gm/dL Albumin/Globulin Ratio 0.8 L (1.0-2.1) 09/04/17 09/03/17 Range/Units 00:11 17:28 WBC (4.8-10.8) K/uL RBC (3.80-5.20) Mil/uL Hgb (11.0-16.0) g/dL Hct (34.0-47.0) % MCV (81.0-99.0) fL MCH (27.0-31.0) pg MCHC (33.0-37.0) g/dL RDW (11.5-14.5) % Plt Count (130-400) K/uL MPV (7.2-11.7) fL Neut % (Auto) (50.0-75.0) % Lymph % (Auto) (20.0-40.0) % [place] % (Auto) (0.0-10.0) % Eos % (Auto) (0.0-4.0) % Baso % (Auto) (0.0-2.0) % Neut # (Auto) (1.8-7.0) K/uL Lymph # (Auto) (1.0-4.3) K/uL [place] # (Auto) (0.0-0.8) K/uL Eos # (Auto) (0.0-0.7) K/uL Baso # (Auto) (0.0-0.2) K/uL Neutrophils % (Manual) (50-75) % Band Neutrophils % (0-2) % Lymphocytes % (Manual) (20-40) % Monocytes % (Manual) (0-10) % Eosinophils % (Manual) (0-4) % Myelocytes % (0-0) % Toxic Granulation Platelet Estimate (NORMAL) Large Platelets Giant Platelets Hypochromasia (manual) Poikilocytosis (manual Anisocytosis (manual) Macrocytosis (manual) Ovalocytes Elías Cells APTT (21-34) SECONDS Puncture Site pCO2 (35-45) mm/Hg pO2 (80-100) mm/Hg HCO3 (21-28) mmol/L ABG pH (7.35-7.45) ABG Total CO2 (22-28) mmol/L ABG O2 Saturation (95-98) % ABG Base Excess (-2.0-3.0) mmol/L ABG Hemoglobin (11.7-17.4) g/dL ABG Carboxyhemoglobin (0.5-1.5) % POC ABG HHb (Measured) (0.0-5.0) % ABG Methemoglobin (0.0-3.0) % Christian Test A-a O2 Difference mm/Hg Respiratory Index Hgb O2 Saturation (95.0-98.0) % Vent Mode Mechanical Rate FiO2 % Tidal Volume PEEP Sodium (132-148) mmol/L Potassium (3.6-5.2) mmol/L Chloride (98-107) mmol/L Carbon Dioxide (22-30) mmol/L Anion Gap (10-20) BUN (7-17) mg/dL Creatinine (0.7-1.2) mg/dL Est GFR ( Amer) Est GFR (Non-Af Amer) POC Glucose (mg/dL) 81 71 (65-110) mg/dL Random Glucose (65-105) mg/dL Calcium (8.6-10.4) mg/dl Phosphorus (2.5-4.5) mg/dL Magnesium (1.6-2.3) mg/dL Total Bilirubin (0.2-1.3) mg/dL AST (14-36) U/L ALT (9-52) U/L Alkaline Phosphatase (38-126) U/L Total Protein (6.3-8.3) g/dL Albumin (3.5-5.0) g/dL Globulin (2.2-3.9) gm/dL Albumin/Globulin Ratio (1.0-2.1) Laboratory Results - last 24 hr 09/03/17 09/04/17 09/04/17 17:28 00:11 04:30 WBC RBC Hgb Hct MCV MCH MCHC RDW Plt Count MPV Neut % (Auto) Lymph % (Auto) [place] % (Auto) Eos % (Auto) Baso % (Auto) Neut # (Auto) Lymph # (Auto) [place] # (Auto) Eos # (Auto) Baso # (Auto) Neutrophils % (Manual) Band Neutrophils % Lymphocytes % (Manual) Monocytes % (Manual) Eosinophils % (Manual) Myelocytes % Toxic Granulation Platelet Estimate Large Platelets Giant Platelets Hypochromasia (manual) Poikilocytosis (manual Anisocytosis (manual) Macrocytosis (manual) Ovalocytes Elías Cells APTT Puncture Site Rb pCO2 30 L pO2 147 H HCO3 27.2 ABG pH 7.53 H ABG Total CO2 26.0 ABG O2 Saturation 99.5 H ABG Base Excess 2.9 ABG Hemoglobin 11.6 L ABG Carboxyhemoglobin 1.8 H POC ABG HHb (Measured) 0.5 ABG Methemoglobin 0.9 Christian Test Na A-a O2 Difference 101.0 Respiratory Index 0.7 Hgb O2 Saturation 96.8 Vent Mode Prvc Mechanical Rate 16 FiO2 40.0 Tidal Volume 500 PEEP 5 Sodium Potassium Chloride Carbon Dioxide Anion Gap BUN Creatinine Est GFR ( Amer) Est GFR (Non-Af Amer) POC Glucose (mg/dL) 71 81 Random Glucose Calcium Phosphorus Magnesium Total Bilirubin AST ALT Alkaline Phosphatase Total Protein Albumin Globulin Albumin/Globulin Ratio 09/04/17 09/04/17 09/04/17 05:19 06:17 06:19 WBC 12.3 H RBC 3.02 L Hgb 8.5 L Hct 25.8 L MCV 85.5 MCH 28.1 MCHC 32.9 L RDW 15.9 H Plt Count 84 L MPV 10.5 Neut % (Auto) 82.4 H Lymph % (Auto) 8.8 L [place] % (Auto) 8.3 Eos % (Auto) 0.4 Baso % (Auto) 0.1 Neut # (Auto) 10.1 H Lymph # (Auto) 1.1 [place] # (Auto) 1.0 H Eos # (Auto) 0.0 Baso # (Auto) 0.0 Neutrophils % (Manual) 81 H Band Neutrophils % 1 Lymphocytes % (Manual) 9 L Monocytes % (Manual) 8 Eosinophils % (Manual) 1 Myelocytes % 1 H Toxic Granulation Present Platelet Estimate Decreased L Large Platelets Present Giant Platelets Present Hypochromasia (manual) Slight Poikilocytosis (manual Slight Anisocytosis (manual) Slight Macrocytosis (manual) Slight Ovalocytes Slight Elías Cells Slight APTT Puncture Site pCO2 pO2 HCO3 ABG pH ABG Total CO2 ABG O2 Saturation ABG Base Excess ABG Hemoglobin ABG Carboxyhemoglobin POC ABG HHb (Measured) ABG Methemoglobin Christian Test A-a O2 Difference Respiratory Index Hgb O2 Saturation Vent Mode Mechanical Rate FiO2 Tidal Volume PEEP Sodium 139 Potassium 3.6 Chloride 101 Carbon Dioxide 28 Anion Gap 14 BUN 59 H Creatinine 4.5 H Est GFR ( Amer) 12 Est GFR (Non-Af Amer) 10 POC Glucose (mg/dL) 118 H Random Glucose 100 Calcium 7.9 L Phosphorus 2.3 L Magnesium 2.1 Total Bilirubin 0.9 AST 1487 H ALT 1201 H Alkaline Phosphatase 196 H Total Protein 5.1 L Albumin 2.3 L Globulin 2.8 Albumin/Globulin Ratio 0.8 L 09/04/17 09/04/17 06:19 11:30 WBC RBC Hgb Hct MCV MCH MCHC RDW Plt Count MPV Neut % (Auto) Lymph % (Auto) [place] % (Auto) Eos % (Auto) Baso % (Auto) Neut # (Auto) Lymph # (Auto) [place] # (Auto) Eos # (Auto) Baso # (Auto) Neutrophils % (Manual) Band Neutrophils % Lymphocytes % (Manual) Monocytes % (Manual) Eosinophils % (Manual) Myelocytes % Toxic Granulation Platelet Estimate Large Platelets Giant Platelets Hypochromasia (manual) Poikilocytosis (manual Anisocytosis (manual) Macrocytosis (manual) Ovalocytes Elías Cells APTT 65 H Puncture Site pCO2 pO2 HCO3 ABG pH ABG Total CO2 ABG O2 Saturation ABG Base Excess ABG Hemoglobin ABG Carboxyhemoglobin POC ABG HHb (Measured) ABG Methemoglobin Christian Test A-a O2 Difference Respiratory Index Hgb O2 Saturation Vent Mode Mechanical Rate FiO2 Tidal Volume PEEP Sodium Potassium Chloride Carbon Dioxide Anion Gap BUN Creatinine Est GFR ( Amer) Est GFR (Non-Af Amer) POC Glucose (mg/dL) 90 Random Glucose Calcium Phosphorus Magnesium Total Bilirubin AST ALT Alkaline Phosphatase Total Protein Albumin Globulin Albumin/Globulin Ratio EKG/Cardiology Studies: Cardiology / EKG Studies 09/04/17 08:48 EKG [ELECTROCARDIOGRAM] Routine Comment: Mode Of Transportation: Reason For Exam: atrial fibrillation Precautions: Standard Attending/Attestation - Attestation I have personally seen and examined this patient.: Yes I have fully participated in the care of the patient.: Yes I have reviewed all pertinent clinical information: Yes Notes (Text): 09/04/17 16:07 PATIENT SEEN AND EXAMINED IN THE INTENSIVE CARE UNIT. Response to vocal command by opening eyes Tolerating CPAP Possible cardiac cath tomorrow Continue heparin drip Follow-up chest x-ray and ABG
[2017-09-04] MEDS: Albuterol-Ipratrop 3 mg / 0.5 (3 ml) UD INH SCH ×2 (15:45→19:30)
[2017-09-04] MEDS: EPOETIN ALFA 4,000 UNIT/ML ML Dialysis IV SCH (17:35)
--- NOTE | 2017-09-04 18:10 | RAD ---
HISTORY: intubated, CPAP trial COMPARISON: 08/29/2017 FINDINGS: The endotracheal tube terminates 1.7 cm proximal to the jordan. The right IJV line terminates at the cavoatrial junction. The left subclavian line terminates at the cavoatrial junction The nasogastric tube terminates in the stomach. LUNGS: The right lung is well inflated and clear. No significant interval change in left lower lobe consolidation and moderate left pleural effusion. There is linear atelectasis in the left lower lobe. PLEURA: No significant pleural effusion identified, no pneumothorax apparent. CARDIOVASCULAR: Stable. OSSEOUS STRUCTURES: No significant abnormalities. VISUALIZED UPPER ABDOMEN: Normal. OTHER FINDINGS: None. IMPRESSION: No change in left lower lobe consolidation and moderate left pleural effusion.
[2017-09-04] MEDS: (Lantus) Insulin Glargine, Recombinant SC SCH (22:00)
[2017-09-05] MEDS: Albuterol-Ipratrop 3 mg / 0.5 (3 ml) UD INH SCH ×6 (00:21→20:11)
--- NOTE | 2017-09-05 01:46 | CP.PCM.CON ---
History of Present Illness - History of Present Illness History of Present Illness: Reason For Consultation: For cardiac cath HPI: 76 F with hx of HTN, CRF on HD admitted for Acute systolic CHF, Non ST elevation DE Cardiac cath was originally deferred as patient was unstable Now patient is slowly recovering Will consider cath tomorrow HPI: Patient is a 76 year old female with a PMH significant for CKD stage V (not on dialysis), Diastolic CHF, DM, HTN, hypercholesterolemia , DE (many years ago, no known intervention), TIA x 3 (years ago), colon CA who presents for altered mental status. PMD: [place] PMH: ESRD (not yet on dialysis), DM, HTN, hypercholesterolemia, DE (many years ago, no known intervention), TIA x 3 (years ago), PAD, CHF, asthma, colon CA in 2009 (treated with chemotherapy and surgery), arthritis PSH: unknown surgery for colon CA (2009); endoscopy Medications: Aspirin 81mg PO daily, Amlodipine (Norvasc) 10mg PO daily, Lisinopril (Zestril) 10mg PO daily, Labetalol Hydrochloride (Normodyne) 300mg PO BID, Lantus 15 unit SC HS, Novolog 3 unit SC TIDAC, Furosemide (Lasix) 40mg PO daily, Ferrous Sulfate (Feosol) 325mg PO BID, Calcitriol (Rocaltrol) 0.25 mcg PO MWF Allergies: Penicillin (rash) Family History: Limited; Mother- of cancer; Father- for unknown reason. Social History: Lives alone in [place] (son and daughter visit daily to assist); ambulates without assistance; at baseline is able to walk around and cook without difficulty; retired; former smoker (25+ pack years); no current ETOH use; no current recreational drug use Code status: Full Code No advance directive In the event of emergency, daughter Cyril Stauffer ([phone]) will make healthcare decisions. Patient's son is also involved in her care: Deangelo Stauffer ( [phone]) Physical Exam - Additional Findings Additional findings: Physical Exam: Gen: drowsy, arousable to voice and touch but quickly falls asleep HEENT: NCAT, mucosal membranes dry Skin: (+) swelling of eyelids; (+) multiple hypopigmented areas to abdomen; (+) leathery skin to bilateral legs and feet. Cardio: tachycardic; +S1, S2; 2/6 systolic ejection murmur to right sternal border Resp: diffuse wheezing and rales, most prominent in bases bilaterally Abd: Soft, nondistended. Bowel sounds present. Midline vertical healed surgical scar. Extremities: Radial pulses present bilaterally. DP/PT pulses intact but weak. Lower extremities cool to touch. Neuro: awake but not alert; not able to follow commands Past Patient History - Infectious Disease Hx of Infectious Diseases: None - Tetanus Immunizations Tetanus Immunization: Unknown - Past Medical History & Family History Past Medical History?: Yes - Past Social History Smoking Status: Former Smoker - CARDIAC Hx Hypercholesterolemia: Yes Hx Hypertension: Yes Hx Peripheral Edema: Yes - PULMONARY Hx Asthma: Yes (Dx 15 yrs ago,does not use home o2 anymore) Hx Pneumonia: Yes (x2) - NEUROLOGICAL Hx Transient Ischemic Attacks (TIA): Yes (x3 about 20 yrs ago, 10 yrs ago, 7 yrs ago) - HEENT Hx HEENT Problems: Yes Hx Cataracts: Yes - RENAL Hx Chronic Kidney Disease: Yes - ENDOCRINE/METABOLIC Hx Diabetes Mellitus Type 1: Yes - HEMATOLOGICAL/ONCOLOGICAL Hx Anemia: Yes - INTEGUMENTARY Hx Dermatological Problems: No - MUSCULOSKELETAL/RHEUMATOLOGICAL Hx Arthritis: Yes Hx Fractures: Yes (Right ankle) - GASTROINTESTINAL Hx Gastrointestinal Disorders: Yes Other/Comment: Hx colon cancer - GENITOURINARY/GYNECOLOGICAL Hx Genitourinary Disorders: Yes Other/Comment: Colon CA - PSYCHIATRIC Hx Depression: No Hx Substance Use: No - SURGICAL HISTORY Hx Cataract Extraction: Yes (LEFT) - ANESTHESIA Hx Anesthesia: Yes Hx Anesthesia Reactions: No Hx Malignant Hyperthermia: No Meds Allergies/Adverse Reactions: Allergies Allergy/AdvReac Type Severity Reaction Status Date / Time Penicillins Allergy Intermediate RASH Verified 08/29/17 20:11 - Medications Medications: Current Medications Albuterol/Ipratropium (Duoneb 3 Mg/0.5 Mg (3 Ml) Ud) 3 ml INH RQ4 [facility] Last Admin: 09/05/17 00:21 Dose: 3 ml Aspirin (Aspirin Chewable) 81 mg PO DAILY [facility] Last Admin: 09/04/17 09:23 Dose: 81 mg Epoetin Alan (Procrit) 8,000 unit IV MWF [facility] Last Admin: 09/04/17 17:35 Dose: 8,000 unit Ergocalciferol (Drisdol 50,000 Intl Units Cap) 1 cap PO Q7D [facility] Last Admin: 08/31/17 13:51 Dose: 1 cap Ferrous Gluconate (Fergon) 324 mg PO TID [facility] Last Admin: 09/04/17 17:37 Dose: 324 mg Aztreonam 1 gm/ Sodium (Chloride) 100 mls @ 100 mls/hr IVPB Q12H [facility] Last Admin: 09/04/17 13:35 Dose: 100 mls/hr Metronidazole (Flagyl) 500 mg in 100 mls @ 100 mls/hr IVPB Q8H [facility] Last Admin: 09/04/17 22:00 Dose: 100 mls/hr Heparin Sodium/Sodium Chloride (Heparin 27304 Units/250ml 1/2 Normal Saline) 25 ,000 units in 250 mls @ 10.161 mls/hr IV .Q24H PRN; Protocol; 14 UNITS/KG/HR PRN Reason: PROTOCOL Last Admin: 09/04/17 09:00 Dose: 14 units/kg/hr, 10.161 mls/hr Insulin Aspart (Novolog) 0 unit SC Q6 [facility] PRN Reason: Protocol Last Admin: 09/05/17 00:00 Dose: Not Given Insulin Glargine (Lantus) 5 unit SC [facility] Last Admin: 09/04/17 22:00 Dose: 5 u Metoprolol Tartrate (Lopressor) 12.5 mg PO BID [facility] Last Admin: 09/04/17 17:37 Dose: 12.5 mg Midodrine (Proamatine) 10 mg NG Q8 [facility] Last Admin: 09/04/17 22:00 Dose: 10 mg Pantoprazole Sodium (Protonix Inj) 40 mg IVP DAILY [facility] Last Admin: 09/04/17 09:24 Dose: 40 mg Rosuvastatin Calcium (Crestor) 5 mg PO HS [facility] Last Admin: 09/04/17 22:00 Dose: 5 mg Vitamin B Complex/Vit C/Folic Acid (Nephro-Kam[place]) 1 tab PO 0800 [facility] Last Admin: 09/04/17 07:39 Dose: 1 tab Results - Vital Signs Recent Vital Signs: Last Vital Signs Temp 98.5 F 09/05/17 00:00 Pulse 96 H 09/05/17 00:01 Resp 18 09/05/17 00:01 BP 126/72 09/05/17 00:01 Pulse Ox 100 09/05/17 00:01 - Labs Result Diagrams: 09/08/17 06:23 09/08/17 06:21 Labs: Laboratory Results - last 24 hr 08/31/17 09/04/17 09/04/17 11:44 04:30 05:19 WBC RBC Hgb Hct MCV MCH MCHC RDW Plt Count MPV Neut % (Auto) Lymph % (Auto) [place] % (Auto) Eos % (Auto) Baso % (Auto) Neut # (Auto) Lymph # (Auto) [place] # (Auto) Eos # (Auto) Baso # (Auto) Neutrophils % (Manual) Band Neutrophils % Lymphocytes % (Manual) Monocytes % (Manual) Eosinophils % (Manual) Myelocytes % Toxic Granulation Platelet Estimate Large Platelets Giant Platelets Hypochromasia (manual) Poikilocytosis (manual Anisocytosis (manual) Macrocytosis (manual) Ovalocytes Elías Cells APTT Puncture Site Rb pCO2 30 L pO2 147 H HCO3 27.2 ABG pH 7.53 H ABG Total CO2 26.0 ABG O2 Saturation 99.5 H ABG Base Excess 2.9 ABG Hemoglobin 11.6 L ABG Carboxyhemoglobin 1.8 H POC ABG HHb (Measured) 0.5 ABG Methemoglobin 0.9 Christian Test Na A-a O2 Difference 101.0 Respiratory Index 0.7 Hgb O2 Saturation 96.8 Vent Mode Prvc Mechanical Rate 16 FiO2 40.0 Tidal Volume 500 PEEP 5 Sodium Potassium Chloride Carbon Dioxide Anion Gap BUN Creatinine Est GFR ( Amer) Est GFR (Non-Af Amer) POC Glucose (mg/dL) 118 H Random Glucose Calcium Phosphorus Magnesium Total Bilirubin AST ALT Alkaline Phosphatase Total Protein Albumin Globulin Albumin/Globulin Ratio Influenza Type A Ab <1:8 Influenza Type B Ab <1:8 09/04/17 09/04/17 09/04/17 06:17 06:19 06:19 WBC 12.3 H RBC 3.02 L Hgb 8.5 L Hct 25.8 L MCV 85.5 MCH 28.1 MCHC 32.9 L RDW 15.9 H Plt Count 84 L MPV 10.5 Neut % (Auto) 82.4 H Lymph % (Auto) 8.8 L [place] % (Auto) 8.3 Eos % (Auto) 0.4 Baso % (Auto) 0.1 Neut # (Auto) 10.1 H Lymph # (Auto) 1.1 [place] # (Auto) 1.0 H Eos # (Auto) 0.0 Baso # (Auto) 0.0 Neutrophils % (Manual) 81 H Band Neutrophils % 1 Lymphocytes % (Manual) 9 L Monocytes % (Manual) 8 Eosinophils % (Manual) 1 Myelocytes % 1 H Toxic Granulation Present Platelet Estimate Decreased L Large Platelets Present Giant Platelets Present Hypochromasia (manual) Slight Poikilocytosis (manual Slight Anisocytosis (manual) Slight Macrocytosis (manual) Slight Ovalocytes Slight Elías Cells Slight APTT 65 H Puncture Site pCO2 pO2 HCO3 ABG pH ABG Total CO2 ABG O2 Saturation ABG Base Excess ABG Hemoglobin ABG Carboxyhemoglobin POC ABG HHb (Measured) ABG Methemoglobin Christian Test A-a O2 Difference Respiratory Index Hgb O2 Saturation Vent Mode Mechanical Rate FiO2 Tidal Volume PEEP Sodium 139 Potassium 3.6 Chloride 101 Carbon Dioxide 28 Anion Gap 14 BUN 59 H Creatinine 4.5 H Est GFR ( Amer) 12 Est GFR (Non-Af Amer) 10 POC Glucose (mg/dL) Random Glucose 100 Calcium 7.9 L Phosphorus 2.3 L Magnesium 2.1 Total Bilirubin 0.9 AST 1487 H ALT 1201 H Alkaline Phosphatase 196 H Total Protein 5.1 L Albumin 2.3 L Globulin 2.8 Albumin/Globulin Ratio 0.8 L Influenza Type A Ab Influenza Type B Ab 09/04/17 09/04/17 09/04/17 11:30 17:46 23:28 WBC RBC Hgb Hct MCV MCH MCHC RDW Plt Count MPV Neut % (Auto) Lymph % (Auto) [place] % (Auto) Eos % (Auto) Baso % (Auto) Neut # (Auto) Lymph # (Auto) [place] # (Auto) Eos # (Auto) Baso # (Auto) Neutrophils % (Manual) Band Neutrophils % Lymphocytes % (Manual) Monocytes % (Manual) Eosinophils % (Manual) Myelocytes % Toxic Granulation Platelet Estimate Large Platelets Giant Platelets Hypochromasia (manual) Poikilocytosis (manual Anisocytosis (manual) Macrocytosis (manual) Ovalocytes Elías Cells APTT Puncture Site pCO2 pO2 HCO3 ABG pH ABG Total CO2 ABG O2 Saturation ABG Base Excess ABG Hemoglobin ABG Carboxyhemoglobin POC ABG HHb (Measured) ABG Methemoglobin Christian Test A-a O2 Difference Respiratory Index Hgb O2 Saturation Vent Mode Mechanical Rate FiO2 Tidal Volume PEEP Sodium Potassium Chloride Carbon Dioxide Anion Gap BUN Creatinine Est GFR ( Amer) Est GFR (Non-Af Amer) POC Glucose (mg/dL) 90 111 H 164 H Random Glucose Calcium Phosphorus Magnesium Total Bilirubin AST ALT Alkaline Phosphatase Total Protein Albumin Globulin Albumin/Globulin Ratio Influenza Type A Ab Influenza Type B Ab Assessment & Plan - Assessment and Plan (Free Text) Assessment: HPI: 76 F with hx of HTN, CRF on HD admitted for Acute systolic CHF, Non ST elevation DE Cardiac cath was originally deferred as patient was unstable Now patient is slowly recovering Will consider cath tomorrow
[2017-09-05] MEDS: Aztreonam 1 GM in Sodium Chloride 0.9% 100 ML IVPB SCH ×2 (02:15→13:46)
[2017-09-05 04:46] LABS: ARTERIAL BLOOD GAS HCO3 25.3 mmol/L (21-28); ARTERIAL BLOOD GAS O2 SAT 99.9 % (95-98); ARTERIAL BLOOD GAS PCO2 31 mm/Hg (35-45); ARTERIAL BLOOD GAS PH 7.48 (7.35-7.45); ARTERIAL BLOOD GAS PO2 183 mm/Hg (80-100); ARTERIAL BLOOD GAS TCO2 24.1 mmol/L (22-28)
[2017-09-05] MEDS: metroNIDAZOLE IV 500 mg/100 ml 500 MG/100 ML BAG IVPB SCH ×3 (05:30→21:35)
[2017-09-05] MEDS: (Novolog) Insulin Aspart, Recombinant 100 u/ml 10 ml vial SC SCH ×4 (05:35→18:58)
[2017-09-05 06:39] LABS: BASO % 0.3 % (0.0-2.0); EOS % 0.3 % (0.0-4.0); LYMPH % 8.4 % (20.0-40.0); MEAN CELL VOLUME 85.9 fL (81.0-99.0); MEAN CORPUSCULAR HEMOGLOBIN 28.1 pg (27.0-31.0); MEAN CORPUSCULAR HGB CONC 32.7 g/dL (33.0-37.0); MEAN PLATELET VOLUME 10.3 fL (7.2-11.7); MONO % 8.4 % (0.0-10.0); NEUT # 10.1 K/uL (1.8-7.0); NEUT % 82.6 % (50.0-75.0); NRBC % 1.3 % (0.0-2.0); PLATELET COUNT 108 K/uL (130-400); RBC 3.19 Mil/uL (3.80-5.20); RED CELL DISTRIBUTION WIDTH 16.3 % (11.5-14.5); WHITE BLOOD COUNT 12.2 K/uL (4.8-10.8)
[2017-09-05 06:49] LABS: ALB/GLOB RATIO 0.8 (1.0-2.1); ALBUMIN 2.7 g/dL (3.5-5.0); CALCIUM 8.1 mg/dl (8.6-10.4)
[2017-09-05 06:52] LABS: INR 1.6
--- NOTE | 2017-09-05 08:14 | RAD ---
Chest x-ray single frontal view History: Ventilator. Comparison: 09/04/2017 Findings: Lines and tubes in stable position. Moderate loculated left pleural effusion. Moderate venous congestion with patchy bibasilar airspace opacities. Upper lobe granulomatous changes. Calcification at the aortic knob. Cardiomegaly. Degenerative changes in the spine. Impression: Lines and tubes in stable position. Moderate loculated left pleural effusion. Moderate venous congestion with patchy bibasilar airspace opacities. Upper lobe granulomatous changes. Calcification at the aortic knob. Cardiomegaly.
[2017-09-05 08:44] LABS: ANISOCYTOSIS SLIGHT; BURR CELLS SLIGHT; EOSINOPHIL 1 % (0-4); HYPOCHROMIC SLIGHT; LYMPHOCYTE 10 % (20-40); MONOCYTE 9 % (0-10); NEUTROPHIL 80 % (50-75); PLATELET ESTIMATE SLIGHTLY DECREASED (NORMAL); POIKILOCYTOSIS SLIGHT; TOTAL CELLS COUNTED 100
[2017-09-05 08:46] LABS: LARGE PLATELETS PRESENT; OVALOCYTES SLIGHT; POLYCHROMIC SLIGHT; TARGET CELLS SLIGHT
[2017-09-05 08:47] LABS: TEARDROP CELLS SLIGHT
[2017-09-05] MEDS: Multivitamin Vitamin B Complex (Nephro-Vite) Tab PO SCH (08:55)
--- NOTE | 2017-09-05 09:50 | CP.PCM.PN ---
Subjective - Date & Time of Evaluation Date of Evaluation: 09/05/17 Time of Evaluation: 09:30 - Subjective Subjective: Patient remains intubated She was able top open her eyes and look at me with name call. She has been on PS/CPAP ventilator settings since yesterday. Possible extubation today On the telemonitor her HR is irregular irregular and remains in the 90s - 100 range Also tolerated HD very well yesterday. Objective - Vital Signs/Intake and Output Vital Signs (last 24 hours): Temp Pulse Resp BP Pulse Ox 98.2 F 104 H 19 127/60 100 09/05/17 08:00 09/05/17 08:01 09/05/17 08:01 09/05/17 08:01 09/05/17 07:00 Intake and Output: 09/05/17 09/05/17 06:59 18:59 Intake Total 680 70 Balance 680 70 - Medications Medications: Current Medications Albuterol/Ipratropium (Duoneb 3 Mg/0.5 Mg (3 Ml) Ud) 3 ml INH RQ4 [facility] Last Admin: 09/05/17 07:10 Dose: 3 ml Aspirin (Aspirin Chewable) 81 mg PO DAILY [facility] Last Admin: 09/05/17 09:12 Dose: 81 mg Epoetin Alan (Procrit) 8,000 unit IV MWF [facility] Last Admin: 09/04/17 17:35 Dose: 8,000 unit Ergocalciferol (Drisdol 50,000 Intl Units Cap) 1 cap PO Q7D [facility] Last Admin: 08/31/17 13:51 Dose: 1 cap Ferrous Gluconate (Fergon) 324 mg PO TID [facility] Last Admin: 09/05/17 09:12 Dose: 324 mg Aztreonam 1 gm/ Sodium (Chloride) 100 mls @ 100 mls/hr IVPB Q12H [facility] Last Admin: 09/05/17 02:15 Dose: 100 mls/hr Metronidazole (Flagyl) 500 mg in 100 mls @ 100 mls/hr IVPB Q8H [facility] Last Admin: 09/05/17 05:30 Dose: 100 mls/hr Heparin Sodium/Sodium Chloride (Heparin 91476 Units/250ml 1/2 Normal Saline) 25 ,000 units in 250 mls @ 10.161 mls/hr IV .Q24H PRN; Protocol; 14 UNITS/KG/HR PRN Reason: PROTOCOL Last Admin: 09/04/17 09:00 Dose: 14 units/kg/hr, 10.161 mls/hr Insulin Aspart (Novolog) 0 unit SC Q6 [facility] PRN Reason: Protocol Last Admin: 09/05/17 05:35 Dose: 4 unit Insulin Glargine (Lantus) 5 unit SC HS [facility] Last Admin: 09/04/17 22:00 Dose: 5 u Methylprednisolone (Solu-Medrol) 40 mg IVP Q8H [facility] Metoprolol Tartrate (Lopressor) 12.5 mg PO BID [facility] Last Admin: 09/05/17 09:12 Dose: 12.5 mg Midodrine (Proamatine) 10 mg NG Q8 [facility] Last Admin: 09/05/17 05:20 Dose: 10 mg Pantoprazole Sodium (Protonix Inj) 40 mg IVP DAILY [facility] Last Admin: 09/05/17 09:12 Dose: 40 mg Rosuvastatin Calcium (Crestor) 5 mg PO HS [facility] Last Admin: 09/04/17 22:00 Dose: 5 mg Vitamin B Complex/Vit C/Folic Acid (Nephro-Kamron) 1 tab PO 0800 [facility] Last Admin: 09/05/17 08:55 Dose: 1 tab - Labs Labs: 09/05/17 06:28 09/05/17 06:26 PT 18.0 SECONDS (9.7-12.2) H 09/05/17 06:32 INR 1.6 09/05/17 06:32 APTT 64 SECONDS (21-34) H 09/05/17 06:32 - Constitutional Appears: Unkempt, Chronically Ill - ENT Exam ENT Exam: Mucous Membranes Moist - Respiratory Exam Respiratory Exam: Decreased Breath Sounds, Rales - Cardiovascular Exam Cardiovascular Exam: Irregular Rhythm - GI/Abdominal Exam GI & Abdominal Exam: Soft. absent: Guarding, Rigid, Tenderness - Neurological Exam Neurological Exam: Alert, Altered, Awake. absent: Oriented x3 Neuro motor strength exam: Left Upper Extremity: 4, Right Upper Extremity: 4, Left Lower Extremity: 3, Right Lower Extremity: 3 - Psychiatric Exam Psychiatric exam: Depressed, Flat Affect - Skin Skin Exam: Normal Color, Warm Assessment and Plan - Assessment and Plan (Free Text) Assessment: As previously mentioned, this is a 76 year old female with a history of ESRD now getting HD, CHF, DM, HTN, hypercholesterolemia, and some sort of [place] years before, repeated TIAs, and colon CA. She was brought in by family for altered mental status and ultimately found to have severe metabolic acidosis as well as a extremely elevated troponins. Plan: 1 Acute NSTEMI , S/P Hypotension /Asystol ,CPR / Sustained VT 09/05: Potentially cardiac catherization shortly from now. Remains on heparin ggt 09/04: atrial fibrillation appearance on telemetry, check a new 12 lead EKG. Remains on heparin ggt. 09/03: Remains in heparin ggt, statin, ASA. Hopefully at some point can have cardiac catherization. 09/02: Now off pressor medications. She remains on amiodarone Echo EF 30%. Troponins were as high as 103 then decreased. Currently on a heparin ggt, ASA, Statin. 2 Respiratory failure, intubation 09/05: Has tolerated CPAP settings throughout the night 09/04: Yesterday [facility] 09/03: Now changed to CPAP/PS settings. The chest XRAYs look better this morning following HD last night. 3 Acute renal failure 09/05: Toleratated HD well yesterday 09/04: Currently MWF HD 09/03: Underwent HD yesterday and tolerated it well. CXRAY looks better 09/02/2017: She has had one session of HD so far. Mercedes another session today 4 Leukocytosis concerning for sepsis 09/03: Today decreased WBC. Cultures negative so far 09/02/2017: The elevated WBC maybe stress related. She remains on abx Aztreonam IV and Flagyl IV 5 Acute systolic heart failure 09/03: Monitor chest XRAYs. ECHO shows EF 30% 6 Pleural effusion 09/05: Still present on CXRAYs. Continue to moniotp 09/03: Improving CXRAYs 09/02/2017: Pleural effusions minimal at this time. Continue to monitor 7 Hyperglycemia and uncontrolled DM 09/03: Reccent accucheks 130s, 130, 160 8 Anemia of chronic disease, CKD 09/03: Yesterday had 1 unit of PRBC given during HD, receiving EPO
[2017-09-05] MEDS: MethylPREDNISolone 40 mg Vial IVP SCH ×2 (12:18→21:35)
--- NOTE | 2017-09-05 13:06 | CP.CCUPN ---
<Rex Romero - Last Filed: 09/05/17 15:45> CCU Subjective - Physician Review Subjective (Free Text): 08/30/17 15:06 Patient seen and examined at bedside AMS spoke with nephro and want to wait for dialysis until cardio decides to do cath or not 08/30/17 17:16 PMD talked with cardio and Nephro. Medical management for cardiac issues at this time. OK to go ahead with dialysis. First session tonight 09/02/17 10:35 Over weekend patient had Vfib arrest tolerated dialysis for 45 min before becoming hypotensive Patient will again have dialysis today Giving blood today 09/03/17 13:42 patient seen and examined today patient will need cath when more stable tolerated CPAP for 2 hours today Dialysis tomorrow 09/04/17 14:07 Patient seen and examined today Tolerating CPAP trial for majority of day Dialysis today 09/05/17 13:04 patient seen and examined today Continues to tolerate CPAP Continue heparin drip and do not intubate per Cardio for cardiac cath possible tomorrow 09/05/17 15:45 Spoke with family and patient, right now they are leaning away from pursuing cardiac cath. Pallitive care consult was called. I discussed with the family and patient the options including cath, DNR/DNI. No decision is made at this time. Patient is still full code. CCU Objective - Vital Signs / Intake & Output Vital Signs (Last 4 hours): Vital Signs Pulse Resp BP Pulse Ox 09/05/17 11:01 82 18 138/63 100 09/05/17 11:00 72 18 100 09/05/17 10:01 92 H 18 126/69 100 09/05/17 10:00 88 17 100 Intake and Output (Last 8hrs): Intake & Output 09/04/17 09/05/17 09/05/17 22:59 06:59 14:59 Intake Total 470 380 275 Balance 470 380 275 Weight 160 lb 7.944 oz Intake: Intake, IV Amount 180 180 50 Right Hand 80 80 50 Right Proximal Port 100 100 Internal Jugular Oral 60 100 Tube Feeding 200 200 125 Other 30 - Physical Exam Head: Positive for: Atraumatic, Normocephalic. Negative for: Tenderness, Contusion, Swelling Pupils: Positive for: PERRL. Negative for: Sluggish, Non-Reactive Extroacular Muscles: Positive for: EOMI Conjunctiva: Positive for: Normal Mouth: Positive for: Dry Pharnyx: Positive for: Normal Nose (External): Positive for: Atraumatic Neck: Positive for: Trachea Midline. Negative for: JVD Respiratory/Chest: Positive for: Good Air Exchange, Accessory Muscle Use, Decreased Breath Sounds (on bilateral bases). Negative for: Wheezes Cardiovascular: Positive for: Tachycardic Abdomen: Positive for: Distention, Normal Bowel Sounds. Negative for: Peritoneal Signs Upper Extremity: Negative for: Cyanosis, Edema Lower Extremity: Negative for: Edema Psychiatric: Positive for: Alert - Medications Active Medications: Active Medications Generic Name Dose Route Start Last Admin Trade Name Freq PRN Reason Stop Dose Admin Albuterol/Ipratropium 3 ml 09/04/17 16:00 09/05/17 11:39 Duoneb 3 Mg/0.5 Mg (3 Ml) Ud INH 3 ml RQ4 CAROLYNE Administration Aspirin 81 mg 08/30/17 10:00 09/05/17 09:12 Aspirin Chewable PO 81 mg DAILY CAROLYNE Administration Epoetin Alan 8,000 unit 09/04/17 09:00 09/04/17 17:35 Procrit IV 8,000 unit MWF [facility]NE Administration Ergocalciferol 1 cap 08/31/17 14:45 08/31/17 13:51 Drisdol 50,000 Intl Units Cap PO 1 cap Q7D CAROLYNE Administration Ferrous Gluconate 324 mg 08/31/17 10:00 09/05/17 09:12 Fergon PO 324 mg TID CAROLYNE Administration Aztreonam 1 gm/ Sodium 100 mls @ 100 mls/hr 08/31/17 13:30 09/05/17 02:15 Chloride IVPB 100 mls/hr Q12H [facility]NE Administration Metronidazole 500 mg in 100 mls @ 100 mls/hr 08/31/17 14:30 09/05/17 05:30 Flagyl IVPB 100 mls/hr Q8H [facility]NE Administration Heparin Sodium/Sodium Chloride 25,000 units in 250 mls @ 10.161 mls/hr 08:20 09/04/17 09:00 Heparin 64936 Units/250ml 1/2 Normal Saline IV 14 units/kg/hr .Q24H PRN 10.161 mls/hr PROTOCOL Administration Protocol 14 UNITS/KG/HR Insulin Aspart 0 unit 09/01/17 11:49 09/05/17 11:43 Novolog SC Not Given Q6 [facility] Protocol Insulin Glargine 5 unit 09/03/17 22:00 09/04/17 22:00 Lantus SC 5 u HS CAROLYNE Administration Methylprednisolone 40 mg 09/05/17 12:00 09/05/17 12:18 Solu-Medrol IVP 40 mg Q8H [facility]NE Administration Metoprolol Tartrate 12.5 mg 09/02/17 22:00 09/05/17 09:12 Lopressor PO 12.5 mg BID CAROLYNE Administration Midodrine 10 mg 09/03/17 14:00 09/05/17 05:20 Proamatine NG 10 mg Q8 CAR[facility]YNE Administration Pantoprazole Sodium 40 mg 09/02/17 10:00 09/05/17 09:12 Protonix Inj IVP 40 mg DAILY CAROLYNE Administration Rosuvastatin Calcium 5 mg 08/30/17 01:15 09/04/17 22:00 Crestor PO 5 mg HS CAROLYNE Administration Vitamin B Complex/Vit C/Folic Acid 1 tab 08/31/17 08:00 09/05/17 08:55 Nephro-Kamron PO 1 tab 0800 CAROLYNE Administration - Patient Studies Lab Studies: Microbiology Studies 09/03/17 Unknown Gram Stain - Final Trachasp Sputum Culture - Final NORMAL ORAL CHRISTIN 08/29/17 06:30 Blood Culture - Final Blood-Venous NO GROWTH AFTER 5 DAYS Gram Stain - Final TEST NOT PERFORMED 08/29/17 06:00 Blood Culture - Final Blood-Venous NO GROWTH AFTER 5 DAYS Gram Stain - Final TEST NOT PERFORMED Lab Studies 09/05/17 09/05/17 09/05/17 Range/Units 11:12 06:32 06:28 WBC 12.2 H (4.8-10.8) K/uL RBC 3.19 L (3.80-5.20) Mil/uL Hgb 9.0 L (11.0-16.0) g/dL Hct 27.4 L (34.0-47.0) % MCV 85.9 (81.0-99.0) fL MCH 28.1 (27.0-31.0) pg MCHC 32.7 L (33.0-37.0) g/dL RDW 16.3 H (11.5-14.5) % Plt Count 108 L D (130-400) K/uL MPV 10.3 (7.2-11.7) fL Neut % (Auto) 82.6 H (50.0-75.0) % Lymph % (Auto) 8.4 L (20.0-40.0) % Morrill % (Auto) 8.4 (0.0-10.0) % Eos % (Auto) 0.3 (0.0-4.0) % Baso % (Auto) 0.3 (0.0-2.0) % Neut # (Auto) 10.1 H (1.8-7.0) K/uL Lymph # (Auto) 1.0 (1.0-4.3) K/uL Morrill # (Auto) 1.0 H (0.0-0.8) K/uL Eos # (Auto) 0.0 (0.0-0.7) K/uL Baso # (Auto) 0.0 (0.0-0.2) K/uL Neutrophils % (Manual) 80 H (50-75) % Lymphocytes % (Manual) 10 L (20-40) % Monocytes % (Manual) 9 (0-10) % Eosinophils % (Manual) 1 (0-4) % Platelet Estimate Slightly decreased L (NORMAL) Large Platelets Present Polychromasia Slight Hypochromasia (manual) Slight Poikilocytosis (manual Slight Anisocytosis (manual) Slight Macrocytosis (manual) Slight Target Cells Slight Tear Drop Cells Slight Ovalocytes Slight Thorofare Cells Slight PT 18.0 H (9.7-12.2) SECONDS INR 1.6 APTT 64 H (21-34) SECONDS Puncture Site pCO2 (35-45) mm/Hg pO2 (80-100) mm/Hg HCO3 (21-28) mmol/L ABG pH (7.35-7.45) ABG Total CO2 (22-28) mmol/L ABG O2 Saturation (95-98) % ABG Base Excess (-2.0-3.0) mmol/L Christian Test ABG Potassium (3.6-5.2) mmol/L A-a O2 Difference mm/Hg Respiratory Index Sodium (132-148) mmol/l Chloride (98-107) mmol/L Glucose (65-105) mg/dl Lactate (0.7-2.1) mmol/L Vent Mode FiO2 % Pressure Support CPAP Potassium (3.6-5.2) mmol/L Carbon Dioxide (22-30) mmol/L Anion Gap (10-20) BUN (7-17) mg/dL Creatinine (0.7-1.2) mg/dL Est GFR ( Amer) Est GFR (Non-Af Amer) POC Glucose (mg/dL) 98 (65-110) mg/dL Random Glucose (65-105) mg/dL Calcium (8.6-10.4) mg/dl Phosphorus (2.5-4.5) mg/dL Magnesium (1.6-2.3) mg/dL Total Bilirubin (0.2-1.3) mg/dL AST (14-36) U/L ALT (9-52) U/L Alkaline Phosphatase (38-126) U/L Total Protein (6.3-8.3) g/dL Albumin (3.5-5.0) g/dL Globulin (2.2-3.9) gm/dL Albumin/Globulin Ratio (1.0-2.1) Arterial Blood Potassium (3.6-5.2) mmol/L Influenza Type A Ab (<1:8) titer Influenza Type B Ab (<1:8) titer 09/05/17 09/05/17 09/05/17 Range/Units 06:26 05:32 04:35 WBC (4.8-10.8) K/uL RBC (3.80-5.20) Mil/uL Hgb (11.0-16.0) g/dL Hct (34.0-47.0) % MCV (81.0-99.0) fL MCH (27.0-31.0) pg MCHC (33.0-37.0) g/dL RDW (11.5-14.5) % Plt Count (130-400) K/uL MPV (7.2-11.7) fL Neut % (Auto) (50.0-75.0) % Lymph % (Auto) (20.0-40.0) % Morrill % (Auto) (0.0-10.0) % Eos % (Auto) (0.0-4.0) % Baso % (Auto) (0.0-2.0) % Neut # (Auto) (1.8-7.0) K/uL Lymph # (Auto) (1.0-4.3) K/uL Morrill # (Auto) (0.0-0.8) K/uL Eos # (Auto) (0.0-0.7) K/uL Baso # (Auto) (0.0-0.2) K/uL Neutrophils % (Manual) (50-75) % Lymphocytes % (Manual) (20-40) % Monocytes % (Manual) (0-10) % Eosinophils % (Manual) (0-4) % Platelet Estimate (NORMAL) Large Platelets Polychromasia Hypochromasia (manual) Poikilocytosis (manual Anisocytosis (manual) Macrocytosis (manual) Target Cells Tear Drop Cells Ovalocytes Thorofare Cells PT (9.7-12.2) SECONDS INR APTT (21-34) SECONDS Puncture Site Rb pCO2 31 L (35-45) mm/Hg pO2 183 H (80-100) mm/Hg HCO3 25.3 (21-28) mmol/L ABG pH 7.48 H (7.35-7.45) ABG Total CO2 24.1 (22-28) mmol/L ABG O2 Saturation 99.9 H (95-98) % ABG Base Excess 0.4 (-2.0-3.0) mmol/L Christian Test Na ABG Potassium 3.4 L (3.6-5.2) mmol/L A-a O2 Difference 63.0 mm/Hg Respiratory Index 0.3 Sodium 138 140.0 (132-148) mmol/l Chloride 99 108.0 H (98-107) mmol/L Glucose 186 H (65-105) mg/dl Lactate 1.0 (0.7-2.1) mmol/L Vent Mode Cpap FiO2 40.0 % Pressure Support 12 CPAP 5 Potassium 3.9 (3.6-5.2) mmol/L Carbon Dioxide 29 (22-30) mmol/L Anion Gap 14 (10-20) BUN 47 H (7-17) mg/dL Creatinine 3.8 H (0.7-1.2) mg/dL Est GFR ( Amer) 14 Est GFR (Non-Af Amer) 12 POC Glucose (mg/dL) 208 H (65-110) mg/dL Random Glucose 184 H (65-105) mg/dL Calcium 8.1 L (8.6-10.4) mg/dl Phosphorus 3.6 (2.5-4.5) mg/dL Magnesium 2.1 (1.6-2.3) mg/dL Total Bilirubin 1.1 (0.2-1.3) mg/dL AST 648 H D (14-36) U/L ALT 1238 H (9-52) U/L Alkaline Phosphatase 222 H (38-126) U/L Total Protein 5.9 L (6.3-8.3) g/dL Albumin 2.7 L (3.5-5.0) g/dL Globulin 3.3 (2.2-3.9) gm/dL Albumin/Globulin Ratio 0.8 L (1.0-2.1) Arterial Blood Potassium 3.4 L (3.6-5.2) mmol/L Influenza Type A Ab (<1:8) titer Influenza Type B Ab (<1:8) titer 09/04/17 09/04/17 08/31/17 Range/Units 23:28 17:46 11:44 WBC (4.8-10.8) K/uL RBC (3.80-5.20) Mil/uL Hgb (11.0-16.0) g/dL Hct (34.0-47.0) % MCV (81.0-99.0) fL MCH (27.0-31.0) pg MCHC (33.0-37.0) g/dL RDW (11.5-14.5) % Plt Count (130-400) K/uL MPV (7.2-11.7) fL Neut % (Auto) (50.0-75.0) % Lymph % (Auto) (20.0-40.0) % Morrill % (Auto) (0.0-10.0) % Eos % (Auto) (0.0-4.0) % Baso % (Auto) (0.0-2.0) % Neut # (Auto) (1.8-7.0) K/uL Lymph # (Auto) (1.0-4.3) K/uL Morrill # (Auto) (0.0-0.8) K/uL Eos # (Auto) (0.0-0.7) K/uL Baso # (Auto) (0.0-0.2) K/uL Neutrophils % (Manual) (50-75) % Lymphocytes % (Manual) (20-40) % Monocytes % (Manual) (0-10) % Eosinophils % (Manual) (0-4) % Platelet Estimate (NORMAL) Large Platelets Polychromasia Hypochromasia (manual) Poikilocytosis (manual Anisocytosis (manual) Macrocytosis (manual) Target Cells Tear Drop Cells Ovalocytes Thorofare Cells PT (9.7-12.2) SECONDS INR APTT (21-34) SECONDS Puncture Site pCO2 (35-45) mm/Hg pO2 (80-100) mm/Hg HCO3 (21-28) mmol/L ABG pH (7.35-7.45) ABG Total CO2 (22-28) mmol/L ABG O2 Saturation (95-98) % ABG Base Excess (-2.0-3.0) mmol/L Christian Test ABG Potassium (3.6-5.2) mmol/L A-a O2 Difference mm/Hg Respiratory Index Sodium (132-148) mmol/l Chloride (98-107) mmol/L Glucose (65-105) mg/dl Lactate (0.7-2.1) mmol/L Vent Mode FiO2 % Pressure Support CPAP Potassium (3.6-5.2) mmol/L Carbon Dioxide (22-30) mmol/L Anion Gap (10-20) BUN (7-17) mg/dL Creatinine (0.7-1.2) mg/dL Est GFR ( Amer) Est GFR (Non-Af Amer) POC Glucose (mg/dL) 164 H 111 H (65-110) mg/dL Random Glucose (65-105) mg/dL Calcium (8.6-10.4) mg/dl Phosphorus (2.5-4.5) mg/dL Magnesium (1.6-2.3) mg/dL Total Bilirubin (0.2-1.3) mg/dL AST (14-36) U/L ALT (9-52) U/L Alkaline Phosphatase (38-126) U/L Total Protein (6.3-8.3) g/dL Albumin (3.5-5.0) g/dL Globulin (2.2-3.9) gm/dL Albumin/Globulin Ratio (1.0-2.1) Arterial Blood Potassium (3.6-5.2) mmol/L Influenza Type A Ab <1:8 (<1:8) titer Influenza Type B Ab <1:8 (<1:8) titer Laboratory Results - last 24 hr 08/31/17 09/04/17 09/04/17 11:44 17:46 23:28 WBC RBC Hgb Hct MCV MCH MCHC RDW Plt Count MPV Neut % (Auto) Lymph % (Auto) Morrill % (Auto) Eos % (Auto) Baso % (Auto) Neut # (Auto) Lymph # (Auto) Morrill # (Auto) Eos # (Auto) Baso # (Auto) Neutrophils % (Manual) Lymphocytes % (Manual) Monocytes % (Manual) Eosinophils % (Manual) Platelet Estimate Large Platelets Polychromasia Hypochromasia (manual) Poikilocytosis (manual Anisocytosis (manual) Macrocytosis (manual) Target Cells Tear Drop Cells Ovalocytes Elías Cells PT INR APTT Puncture Site pCO2 pO2 HCO3 ABG pH ABG Total CO2 ABG O2 Saturation ABG Base Excess Christian Test ABG Potassium A-a O2 Difference Respiratory Index Sodium Chloride Glucose Lactate Vent Mode FiO2 Pressure Support CPAP Potassium Carbon Dioxide Anion Gap BUN Creatinine Est GFR ( Amer) Est GFR (Non-Af Amer) POC Glucose (mg/dL) 111 H 164 H Random Glucose Calcium Phosphorus Magnesium Total Bilirubin AST ALT Alkaline Phosphatase Total Protein Albumin Globulin Albumin/Globulin Ratio Arterial Blood Potassium Influenza Type A Ab <1:8 Influenza Type B Ab <1:8 09/05/17 09/05/17 09/05/17 04:35 05:32 06:26 WBC RBC Hgb Hct MCV MCH MCHC RDW Plt Count MPV Neut % (Auto) Lymph % (Auto) Morrill % (Auto) Eos % (Auto) Baso % (Auto) Neut # (Auto) Lymph # (Auto) Morrill # (Auto) Eos # (Auto) Baso # (Auto) Neutrophils % (Manual) Lymphocytes % (Manual) Monocytes % (Manual) Eosinophils % (Manual) Platelet Estimate Large Platelets Polychromasia Hypochromasia (manual) Poikilocytosis (manual Anisocytosis (manual) Macrocytosis (manual) Target Cells Tear Drop Cells Ovalocytes Thorofare Cells PT INR APTT Puncture Site Rb pCO2 31 L pO2 183 H HCO3 25.3 ABG pH 7.48 H ABG Total CO2 24.1 ABG O2 Saturation 99.9 H ABG Base Excess 0.4 Christian Test Na ABG Potassium 3.4 L A-a O2 Difference 63.0 Respiratory Index 0.3 Sodium 140.0 138 Chloride 108.0 H 99 Glucose 186 H Lactate 1.0 Vent Mode Cpap FiO2 40.0 Pressure Support 12 CPAP 5 Potassium 3.9 Carbon Dioxide 29 Anion Gap 14 BUN 47 H Creatinine 3.8 H Est GFR ( Amer) 14 Est GFR (Non-Af Amer) 12 POC Glucose (mg/dL) 208 H Random Glucose 184 H Calcium 8.1 L Phosphorus 3.6 Magnesium 2.1 Total Bilirubin 1.1 AST 648 H D ALT 1238 H Alkaline Phosphatase 222 H Total Protein 5.9 L Albumin 2.7 L Globulin 3.3 Albumin/Globulin Ratio 0.8 L Arterial Blood Potassium 3.4 L Influenza Type A Ab Influenza Type B Ab 09/05/17 09/05/17 09/05/17 06:28 06:32 11:12 WBC 12.2 H RBC 3.19 L Hgb 9.0 L Hct 27.4 L MCV 85.9 MCH 28.1 MCHC 32.7 L RDW 16.3 H Plt Count 108 L D MPV 10.3 Neut % (Auto) 82.6 H Lymph % (Auto) 8.4 L Morrill % (Auto) 8.4 Eos % (Auto) 0.3 Baso % (Auto) 0.3 Neut # (Auto) 10.1 H Lymph # (Auto) 1.0 Morrill # (Auto) 1.0 H Eos # (Auto) 0.0 Baso # (Auto) 0.0 Neutrophils % (Manual) 80 H Lymphocytes % (Manual) 10 L Monocytes % (Manual) 9 Eosinophils % (Manual) 1 Platelet Estimate Slightly decreased L Large Platelets Present Polychromasia Slight Hypochromasia (manual) Slight Poikilocytosis (manual Slight Anisocytosis (manual) Slight Macrocytosis (manual) Slight Target Cells Slight Tear Drop Cells Slight Ovalocytes Slight Elías Cells Slight PT 18.0 H INR 1.6 APTT 64 H Puncture Site pCO2 pO2 HCO3 ABG pH ABG Total CO2 ABG O2 Saturation ABG Base Excess Christian Test ABG Potassium A-a O2 Difference Respiratory Index Sodium Chloride Glucose Lactate Vent Mode FiO2 Pressure Support CPAP Potassium Carbon Dioxide Anion Gap BUN Creatinine Est GFR ( Amer) Est GFR (Non-Af Amer) POC Glucose (mg/dL) 98 Random Glucose Calcium Phosphorus Magnesium Total Bilirubin AST ALT Alkaline Phosphatase Total Protein Albumin Globulin Albumin/Globulin Ratio Arterial Blood Potassium Influenza Type A Ab Influenza Type B Ab Fingerstick Blood Sugar Results: 208 Assessment/Plan - Assessment and Plan (Free Text) Assessment: 76F NSTEMI, ESRD on HD Plan: Neuro: Intubated, sedated Cardio: NSTEMI, Cards (Octavio) consider Cath tomorrow. Wants to leave patient intubated for now * Continue heparin for now. * ASA 81 QD * lopressor 12.5 BID * midodrine 10 Q8 * crestor 5 PO HS Pulm: Inutbated. Continues to tolerate CPAP without issue * Duoneb Q4 GI: No acute issues * Nepro tube feed at goal Renal: ESRD on HD MWF. Nephro (Errol) * Procrit * Vit D * Fergon * Vit B Endo: IDDM * aspart sc Q6 * glargine 5u SC HS ID: Sputum culture pending. ID (Angie) * aztreonam 1g q12 * Flagyl 500 Q8 PPX: Protonix, Heparin drip, CI to SCD (swelling) <Kimmie Mathis - Last Filed: 09/05/17 18:13> CCU Subjective - Physician Review Critical Care Time Spent (in minutes): 35 CCU Objective - Vital Signs / Intake & Output Vital Signs (Last 4 hours): Vital Signs Temp Pulse Resp BP Pulse Ox 09/05/17 17:00 112 H 19 130/74 100 09/05/17 16:01 110 H 18 132/74 100 09/05/17 16:00 97.5 F L 101 H 19 100 09/05/17 15:00 97 H 18 122/74 Intake and Output (Last 8hrs): Intake & Output 09/05/17 09/05/17 09/05/17 06:59 14:59 22:59 Intake Total 380 580 105 Balance 380 580 105 Weight 160 lb 7.944 oz 160 lb 7.944 oz Intake: Intake, IV Amount 180 280 30 Right Hand 80 80 30 Right Proximal Port 100 200 Internal Jugular Oral 100 Tube Feeding 200 200 75 - Medications Active Medications: Active Medications Generic Name Dose Route Start Last Admin Trade Name Freq PRN Reason Stop Dose Admin Albuterol/Ipratropium 3 ml 09/04/17 16:00 09/05/17 15:32 Duoneb 3 Mg/0.5 Mg (3 Ml) Ud INH 3 ml RQ4 CAROLYNE Administration Aspirin 81 mg 08/30/17 10:00 09/05/17 09:12 Aspirin Chewable PO 81 mg DAILY [facility] Administration Epoetin Alan 8,000 unit 09/04/17 09:00 09/04/17 17:35 Procrit IV 8,000 unit MWF [facility] Administration Ergocalciferol 1 cap 08/31/17 14:45 08/31/17 13:51 Drisdol 50,000 Intl Units Cap PO 1 cap Q7D [facility]NE Administration Ferrous Gluconate 324 mg 08/31/17 10:00 09/05/17 14:53 Fergon PO 324 mg TID [facility] Administration Heparin Sodium/Sodium Chloride 25,000 units in 250 mls @ 10.161 mls/hr 08:20 09/04/17 09:00 Heparin 51079 Units/250ml 1/2 Normal Saline IV 14 units/kg/hr .Q24H PRN 10.161 mls/hr PROTOCOL Administration Protocol 14 UNITS/KG/HR Aztreonam 1 gm/ Sodium 100 mls @ 100 mls/hr 09/06/17 01:30 Chloride IVPB Q12H [facility] Metronidazole 500 mg in 100 mls @ 100 mls/hr 09/05/17 22:30 Flagyl IVPB Q8H [facility] Insulin Aspart 0 unit 09/01/17 11:49 09/05/17 11:43 Novolog SC Not Given Q6 [facility] Protocol Insulin Glargine 5 unit 09/03/17 22:00 09/04/17 22:00 Lantus SC 5 u HS [facility] Administration Methylprednisolone 40 mg 09/05/17 12:00 09/05/17 12:18 Solu-Medrol IVP 40 mg Q8H [facility] Administration Metoprolol Tartrate 12.5 mg 09/02/17 22:00 09/05/17 09:12 Lopressor PO 12.5 mg BID [facility] Administration Midodrine 10 mg 09/03/17 14:00 09/05/17 14:53 Proamatine NG 10 mg Q8 [facility] Administration Pantoprazole Sodium 40 mg 09/02/17 10:00 09/05/17 09:12 Protonix Inj IVP 40 mg DAILY [facility] Administration Rosuvastatin Calcium 5 mg 08/30/17 01:15 09/04/17 22:00 Crestor PO 5 mg HS [facility] Administration Vitamin B Complex/Vit C/Folic Acid 1 tab 08/31/17 08:00 09/05/17 08:55 Nephro-Kamron PO 1 tab 0800 CAROLYNE Administration - Patient Studies Lab Studies: Microbiology Studies 09/03/17 Unknown Gram Stain - Final Trachasp Sputum Culture - Final NORMAL ORAL CHRISTIN Lab Studies 09/05/17 09/05/17 09/05/17 Range/Units 17:36 11:12 06:32 WBC (4.8-10.8) K/uL RBC (3.80-5.20) Mil/uL Hgb (11.0-16.0) g/dL Hct (34.0-47.0) % MCV (81.0-99.0) fL MCH (27.0-31.0) pg MCHC (33.0-37.0) g/dL RDW (11.5-14.5) % Plt Count (130-400) K/uL MPV (7.2-11.7) fL Neut % (Auto) (50.0-75.0) % Lymph % (Auto) (20.0-40.0) % Morrill % (Auto) (0.0-10.0) % Eos % (Auto) (0.0-4.0) % Baso % (Auto) (0.0-2.0) % Neut # (Auto) (1.8-7.0) K/uL Lymph # (Auto) (1.0-4.3) K/uL Morrill # (Auto) (0.0-0.8) K/uL Eos # (Auto) (0.0-0.7) K/uL Baso # (Auto) (0.0-0.2) K/uL Neutrophils % (Manual) (50-75) % Lymphocytes % (Manual) (20-40) % Monocytes % (Manual) (0-10) % Eosinophils % (Manual) (0-4) % Platelet Estimate (NORMAL) Large Platelets Polychromasia Hypochromasia (manual) Poikilocytosis (manual Anisocytosis (manual) Macrocytosis (manual) Target Cells Tear Drop Cells Ovalocytes Thorofare Cells PT 18.0 H (9.7-12.2) SECONDS INR 1.6 APTT 64 H (21-34) SECONDS Puncture Site pCO2 (35-45) mm/Hg pO2 (80-100) mm/Hg HCO3 (21-28) mmol/L ABG pH (7.35-7.45) ABG Total CO2 (22-28) mmol/L ABG O2 Saturation (95-98) % ABG Base Excess (-2.0-3.0) mmol/L Christian Test ABG Potassium (3.6-5.2) mmol/L A-a O2 Difference mm/Hg Respiratory Index Sodium (132-148) mmol/l Chloride (98-107) mmol/L Glucose (65-105) mg/dl Lactate (0.7-2.1) mmol/L Vent Mode FiO2 % Pressure Support CPAP Potassium (3.6-5.2) mmol/L Carbon Dioxide (22-30) mmol/L Anion Gap (10-20) BUN (7-17) mg/dL Creatinine (0.7-1.2) mg/dL Est GFR ( Amer) Est GFR (Non-Af Amer) POC Glucose (mg/dL) 212 H 98 (65-110) mg/dL Random Glucose (65-105) mg/dL Calcium (8.6-10.4) mg/dl Phosphorus (2.5-4.5) mg/dL Magnesium (1.6-2.3) mg/dL Total Bilirubin (0.2-1.3) mg/dL AST (14-36) U/L ALT (9-52) U/L Alkaline Phosphatase (38-126) U/L Total Protein (6.3-8.3) g/dL Albumin (3.5-5.0) g/dL Globulin (2.2-3.9) gm/dL Albumin/Globulin Ratio (1.0-2.1) Arterial Blood Potassium (3.6-5.2) mmol/L Influenza Type A Ab (<1:8) titer Influenza Type B Ab (<1:8) titer 09/05/17 09/05/17 09/05/17 Range/Units 06:28 06:26 05:32 WBC 12.2 H (4.8-10.8) K/uL RBC 3.19 L (3.80-5.20) Mil/uL Hgb 9.0 L (11.0-16.0) g/dL Hct 27.4 L (34.0-47.0) % MCV 85.9 (81.0-99.0) fL MCH 28.1 (27.0-31.0) pg MCHC 32.7 L (33.0-37.0) g/dL RDW 16.3 H (11.5-14.5) % Plt Count 108 L D (130-400) K/uL MPV 10.3 (7.2-11.7) fL Neut % (Auto) 82.6 H (50.0-75.0) % Lymph % (Auto) 8.4 L (20.0-40.0) % Morrill % (Auto) 8.4 (0.0-10.0) % Eos % (Auto) 0.3 (0.0-4.0) % Baso % (Auto) 0.3 (0.0-2.0) % Neut # (Auto) 10.1 H (1.8-7.0) K/uL Lymph # (Auto) 1.0 (1.0-4.3) K/uL Morrill # (Auto) 1.0 H (0.0-0.8) K/uL Eos # (Auto) 0.0 (0.0-0.7) K/uL Baso # (Auto) 0.0 (0.0-0.2) K/uL Neutrophils % (Manual) 80 H (50-75) % Lymphocytes % (Manual) 10 L (20-40) % Monocytes % (Manual) 9 (0-10) % Eosinophils % (Manual) 1 (0-4) % Platelet Estimate Slightly decreased L (NORMAL) Large Platelets Present Polychromasia Slight Hypochromasia (manual) Slight Poikilocytosis (manual Slight Anisocytosis (manual) Slight Macrocytosis (manual) Slight Target Cells Slight Tear Drop Cells Slight Ovalocytes Slight Elías Cells Slight PT (9.7-12.2) SECONDS INR APTT (21-34) SECONDS Puncture Site pCO2 (35-45) mm/Hg pO2 (80-100) mm/Hg HCO3 (21-28) mmol/L ABG pH (7.35-7.45) ABG Total CO2 (22-28) mmol/L ABG O2 Saturation (95-98) % ABG Base Excess (-2.0-3.0) mmol/L Christian Test ABG Potassium (3.6-5.2) mmol/L A-a O2 Difference mm/Hg Respiratory Index Sodium 138 (132-148) mmol/l Chloride 99 (98-107) mmol/L Glucose (65-105) mg/dl Lactate (0.7-2.1) mmol/L Vent Mode FiO2 % Pressure Support CPAP Potassium 3.9 (3.6-5.2) mmol/L Carbon Dioxide 29 (22-30) mmol/L Anion Gap 14 (10-20) BUN 47 H (7-17) mg/dL Creatinine 3.8 H (0.7-1.2) mg/dL Est GFR ( Amer) 14 Est GFR (Non-Af Amer) 12 POC Glucose (mg/dL) 208 H (65-110) mg/dL Random Glucose 184 H (65-105) mg/dL Calcium 8.1 L (8.6-10.4) mg/dl Phosphorus 3.6 (2.5-4.5) mg/dL Magnesium 2.1 (1.6-2.3) mg/dL Total Bilirubin 1.1 (0.2-1.3) mg/dL AST 648 H D (14-36) U/L ALT 1238 H (9-52) U/L Alkaline Phosphatase 222 H (38-126) U/L Total Protein 5.9 L (6.3-8.3) g/dL Albumin 2.7 L (3.5-5.0) g/dL Globulin 3.3 (2.2-3.9) gm/dL Albumin/Globulin Ratio 0.8 L (1.0-2.1) Arterial Blood Potassium (3.6-5.2) mmol/L Influenza Type A Ab (<1:8) titer Influenza Type B Ab (<1:8) titer 03/08/18 03/07/18 03/03/18 Range/Units 04:35 23:28 11:44 WBC (4.8-10.8) K/uL RBC (3.80-5.20) Mil/uL Hgb (11.0-16.0) g/dL Hct (34.0-47.0) % MCV (81.0-99.0) fL MCH (27.0-31.0) pg MCHC (33.0-37.0) g/dL RDW (11.5-14.5) % Plt Count (130-400) K/uL MPV (7.2-11.7) fL Neut % (Auto) (50.0-75.0) % Lymph % (Auto) (20.0-40.0) % Morrill % (Auto) (0.0-10.0) % Eos % (Auto) (0.0-4.0) % Baso % (Auto) (0.0-2.0) % Neut # (Auto) (1.8-7.0) K/uL Lymph # (Auto) (1.0-4.3) K/uL Morrill # (Auto) (0.0-0.8) K/uL Eos # (Auto) (0.0-0.7) K/uL Baso # (Auto) (0.0-0.2) K/uL Neutrophils % (Manual) (50-75) % Lymphocytes % (Manual) (20-40) % Monocytes % (Manual) (0-10) % Eosinophils % (Manual) (0-4) % Platelet Estimate (NORMAL) Large Platelets Polychromasia Hypochromasia (manual) Poikilocytosis (manual Anisocytosis (manual) Macrocytosis (manual) Target Cells Tear Drop Cells Ovalocytes Elías Cells PT (9.7-12.2) SECONDS INR APTT (21-34) SECONDS Puncture Site Rb pCO2 31 L (35-45) mm/Hg pO2 183 H (80-100) mm/Hg HCO3 25.3 (21-28) mmol/L ABG pH 7.48 H (7.35-7.45) ABG Total CO2 24.1 (22-28) mmol/L ABG O2 Saturation 99.9 H (95-98) % ABG Base Excess 0.4 (-2.0-3.0) mmol/L Christian Test Na ABG Potassium 3.4 L (3.6-5.2) mmol/L A-a O2 Difference 63.0 mm/Hg Respiratory Index 0.3 Sodium 140.0 (132-148) mmol/l Chloride 108.0 H (98-107) mmol/L Glucose 186 H (65-105) mg/dl Lactate 1.0 (0.7-2.1) mmol/L Vent Mode Cpap FiO2 40.0 % Pressure Support 12 CPAP 5 Potassium (3.6-5.2) mmol/L Carbon Dioxide (22-30) mmol/L Anion Gap (10-20) BUN (7-17) mg/dL Creatinine (0.7-1.2) mg/dL Est GFR ( Amer) Est GFR (Non-Af Amer) POC Glucose (mg/dL) 164 H (65-110) mg/dL Random Glucose (65-105) mg/dL Calcium (8.6-10.4) mg/dl Phosphorus (2.5-4.5) mg/dL Magnesium (1.6-2.3) mg/dL Total Bilirubin (0.2-1.3) mg/dL AST (14-36) U/L ALT (9-52) U/L Alkaline Phosphatase (38-126) U/L Total Protein (6.3-8.3) g/dL Albumin (3.5-5.0) g/dL Globulin (2.2-3.9) gm/dL Albumin/Globulin Ratio (1.0-2.1) Arterial Blood Potassium 3.4 L (3.6-5.2) mmol/L Influenza Type A Ab <1:8 (<1:8) titer Influenza Type B Ab <1:8 (<1:8) titer Laboratory Results - last 24 hr 08/31/17 09/04/17 09/05/17 11:44 23:28 04:35 WBC RBC Hgb Hct MCV MCH MCHC RDW Plt Count MPV Neut % (Auto) Lymph % (Auto) Morrill % (Auto) Eos % (Auto) Baso % (Auto) Neut # (Auto) Lymph # (Auto) Morrill # (Auto) Eos # (Auto) Baso # (Auto) Neutrophils % (Manual) Lymphocytes % (Manual) Monocytes % (Manual) Eosinophils % (Manual) Platelet Estimate Large Platelets Polychromasia Hypochromasia (manual) Poikilocytosis (manual Anisocytosis (manual) Macrocytosis (manual) Target Cells Tear Drop Cells Ovalocytes Thorofare Cells PT INR APTT Puncture Site Rb pCO2 31 L pO2 183 H HCO3 25.3 ABG pH 7.48 H ABG Total CO2 24.1 ABG O2 Saturation 99.9 H ABG Base Excess 0.4 Christian Test Na ABG Potassium 3.4 L A-a O2 Difference 63.0 Respiratory Index 0.3 Sodium 140.0 Chloride 108.0 H Glucose 186 H Lactate 1.0 Vent Mode Cpap FiO2 40.0 Pressure Support 12 CPAP 5 Potassium Carbon Dioxide Anion Gap BUN Creatinine Est GFR ( Amer) Est GFR (Non-Af Amer) POC Glucose (mg/dL) 164 H Random Glucose Calcium Phosphorus Magnesium Total Bilirubin AST ALT Alkaline Phosphatase Total Protein Albumin Globulin Albumin/Globulin Ratio Arterial Blood Potassium 3.4 L Influenza Type A Ab <1:8 Influenza Type B Ab <1:8 09/05/17 09/05/17 09/05/17 05:32 06:26 06:28 WBC 12.2 H RBC 3.19 L Hgb 9.0 L Hct 27.4 L MCV 85.9 MCH 28.1 MCHC 32.7 L RDW 16.3 H Plt Count 108 L D MPV 10.3 Neut % (Auto) 82.6 H Lymph % (Auto) 8.4 L Morrill % (Auto) 8.4 Eos % (Auto) 0.3 Baso % (Auto) 0.3 Neut # (Auto) 10.1 H Lymph # (Auto) 1.0 Morrill # (Auto) 1.0 H Eos # (Auto) 0.0 Baso # (Auto) 0.0 Neutrophils % (Manual) 80 H Lymphocytes % (Manual) 10 L Monocytes % (Manual) 9 Eosinophils % (Manual) 1 Platelet Estimate Slightly decreased L Large Platelets Present Polychromasia Slight Hypochromasia (manual) Slight Poikilocytosis (manual Slight Anisocytosis (manual) Slight Macrocytosis (manual) Slight Target Cells Slight Tear Drop Cells Slight Ovalocytes Slight Elías Cells Slight PT INR APTT Puncture Site pCO2 pO2 HCO3 ABG pH ABG Total CO2 ABG O2 Saturation ABG Base Excess Christian Test ABG Potassium A-a O2 Difference Respiratory Index Sodium 138 Chloride 99 Glucose Lactate Vent Mode FiO2 Pressure Support CPAP Potassium 3.9 Carbon Dioxide 29 Anion Gap 14 BUN 47 H Creatinine 3.8 H Est GFR ( Amer) 14 Est GFR (Non-Af Amer) 12 POC Glucose (mg/dL) 208 H Random Glucose 184 H Calcium 8.1 L Phosphorus 3.6 Magnesium 2.1 Total Bilirubin 1.1 AST 648 H D ALT 1238 H Alkaline Phosphatase 222 H Total Protein 5.9 L Albumin 2.7 L Globulin 3.3 Albumin/Globulin Ratio 0.8 L Arterial Blood Potassium Influenza Type A Ab Influenza Type B Ab 09/05/17 09/05/17 09/05/17 06:32 11:12 17:36 WBC RBC Hgb Hct MCV MCH MCHC RDW Plt Count MPV Neut % (Auto) Lymph % (Auto) Morrill % (Auto) Eos % (Auto) Baso % (Auto) Neut # (Auto) Lymph # (Auto) Morrill # (Auto) Eos # (Auto) Baso # (Auto) Neutrophils % (Manual) Lymphocytes % (Manual) Monocytes % (Manual) Eosinophils % (Manual) Platelet Estimate Large Platelets Polychromasia Hypochromasia (manual) Poikilocytosis (manual Anisocytosis (manual) Macrocytosis (manual) Target Cells Tear Drop Cells Ovalocytes Thorofare Cells PT 18.0 H INR 1.6 APTT 64 H Puncture Site pCO2 pO2 HCO3 ABG pH ABG Total CO2 ABG O2 Saturation ABG Base Excess Christian Test ABG Potassium A-a O2 Difference Respiratory Index Sodium Chloride Glucose Lactate Vent Mode FiO2 Pressure Support CPAP Potassium Carbon Dioxide Anion Gap BUN Creatinine Est GFR ( Amer) Est GFR (Non-Af Amer) POC Glucose (mg/dL) 98 212 H Random Glucose Calcium Phosphorus Magnesium Total Bilirubin AST ALT Alkaline Phosphatase Total Protein Albumin Globulin Albumin/Globulin Ratio Arterial Blood Potassium Influenza Type A Ab Influenza Type B Ab Assessment/Plan - Assessment and Plan (Free Text) Plan: Above resident note reviewed and verified. Patient with long hospital course. 76 y/o female with PMH CKD stage V with left arm AV fistula, Diastolic CHF/ NSTEMI, DM, HTN, hypercholesterolemia, h/o TIA, h/o colon CA who presents [facility] with altered mental status. -NSTEMI: will benefit from DUal antiplatelet therapy and IV heprain, cardiology input -Shock: suspect 2nd aspiration/cardiogenic shock, now off pressors -sepsis: continue broad spectrum abx, complete abx regimen -Acute on chronic systolic heart failure: ECHO shows EF 30%, continue to optimize heart failure medications as BP tolerates -Acute NSTEMI: Cardiology consult, Dr Houston, possible PCI -Hyperglycemia and uncontrolled DM, lantus + ISS/aspart continue Lantus and monitor sugar -Anemia of chronic disease, continue epogen, hb stable -DVT ppx on IV heparin -PUD ppx pepcid cc time 35 minutes Patient tolerated CPAP today; however cardiogy advised to extubate after cardiac cath. -will optimize lung function, contineu CPAP and extubate on 09/06/2017 - Date & Time Date: 09/05/17 Time: 13:00
--- NOTE | 2017-09-05 14:12 | CP.PCM.PN ---
Subjective - Date & Time of Evaluation Date of Evaluation: 09/05/17 Time of Evaluation: 14:11 - Subjective Subjective: Nephrology Consultation: Assessment: critical CKD stage 5 (N18.5) with hyperkalemia, acidosis now has ESRD on HD via [facility] pulm edema, CHF, NSTEMI, pleural effusions, pneumonia AMS, hyperglycemia s/p cardiac arrest, shock liver, A fib Diabetic chronic Kidney Disease (E11.22) Hypertensive Chronic Kidney Disease (I12.9) Anemia (D64.9), Hyperphosphatemia (E83.39), Secondary Hyperparathyroidism (E21.1 ), HTN (I12.9), vit D insuff, hx of colon CA, TIAs Plan HD tomorrow as ordered. no acute need today maintain hemodynamic stable. Patient not on ACEI/ARB due to low BP started iron supplements, MVI, epogen with HD, and Vit D vasc surgery has evaluated. ID and cardiology following KDUR supplementation as needed Dose meds/antibiotics for ESRD/HD status. Avoid fleets enema/magnesium based laxatives. Avoid nephrotoxins/NSAIDs Glycemic control Further work up/management as per primary team Thanks for allowing me to participate in care of your patient. Will follow patient with you. Please call if any Qs. d/w team Dr Edson Norton Office: [phone] Chief Complaint; unable to obtain reason for consult: CKD management source of Info: EMR HPI: Pt is a 76 F with hx of diabetes Mellitus ( years), hypertension (years), CHF, TIA, Colon CA, CKD stage 4/5, has matured AVG in left arm presented with complaints of AMS and hyperglycemia as brought by family. now has elevated trop 100, hyperkalemia, AMS and elevated sugar, pulm edema. renal consult for CKD management. pt with AMS unable to provide any hx. she had received medical management for hyperkalemia. ROS: unable to obtain Physical Examination: General Appearance: ill appearing,intubated Vitals reviewed and noted as below Head; Atraumatic, normocephalic ENT: intubated EYES: PERRLA Neck; supple no lymphadenopathy, no thyromegaly or bruit Lungs: Normal respiratory rate/effort. Breath sounds bilateral clear, she is mechanically ventilated Heart: Normal rate. s1s2 normal. No rub or gallop. Extremities: no edema. No varicose veins. chronic hyperpigmented changes in legs Neurological: Patient is awake not communicative Skin: Warm and dry. Normal turgor. No rash. Palpitation: Normal elasticity for age Abdomen: Abdomen is soft. Bowel sounds +. There is no abdominal tenderness, no guarding/rigidity no organomegaly Psych: unable MSK: no joint tenderness or swelling. Digits and nails normal, no deformity : kidney or bladder not palpable Access: Left AVG without bruit. has left IJ shiley Labs/imaging reviewed. Past medical history, past surgical history, family history, social history, allergy reviewed and noted as below Family hx: no hx of CKD. Rest non-contributory Objective - Vital Signs/Intake and Output Vital Signs (last 24 hours): Temp Pulse Resp BP Pulse Ox 98.2 F 82 18 138/63 100 09/05/17 08:00 09/05/17 11:01 09/05/17 11:01 09/05/17 11:01 09/05/17 11:01 Intake and Output: 09/05/17 09/05/17 06:59 18:59 Intake Total 680 345 Balance 680 345 - Medications Medications: Current Medications Albuterol/Ipratropium (Duoneb 3 Mg/0.5 Mg (3 Ml) Ud) 3 ml INH RQ4 [facility] Last Admin: 09/05/17 11:39 Dose: 3 ml Aspirin (Aspirin Chewable) 81 mg PO DAILY [facility] Last Admin: 09/05/17 09:12 Dose: 81 mg Epoetin Alan (Procrit) 8,000 unit IV MWF [facility] Last Admin: 09/04/17 17:35 Dose: 8,000 unit Ergocalciferol (Drisdol 50,000 Intl Units Cap) 1 cap PO Q7D [facility] Last Admin: 08/31/17 13:51 Dose: 1 cap Ferrous Gluconate (Fergon) 324 mg PO TID [facility] Last Admin: 09/05/17 09:12 Dose: 324 mg Aztreonam 1 gm/ Sodium (Chloride) 100 mls @ 100 mls/hr IVPB Q12H [facility] Last Admin: 09/05/17 13:46 Dose: 100 mls/hr Metronidazole (Flagyl) 500 mg in 100 mls @ 100 mls/hr IVPB Q8H [facility] Last Admin: 09/05/17 13:46 Dose: 100 mls/hr Heparin Sodium/Sodium Chloride (Heparin 88430 Units/250ml 1/2 Normal Saline) 25 ,000 units in 250 mls @ 10.161 mls/hr IV .Q24H PRN; Protocol; 14 UNITS/KG/HR PRN Reason: PROTOCOL Last Admin: 09/04/17 09:00 Dose: 14 units/kg/hr, 10.161 mls/hr Insulin Aspart (Novolog) 0 unit SC Q6 [facility] PRN Reason: Protocol Last Admin: 09/05/17 11:43 Dose: Not Given Insulin Glargine (Lantus) 5 unit SC HS [facility] Last Admin: 09/04/17 22:00 Dose: 5 u Methylprednisolone (Solu-Medrol) 40 mg IVP Q8H [facility] Last Admin: 09/05/17 12:18 Dose: 40 mg Metoprolol Tartrate (Lopressor) 12.5 mg PO BID [facility] Last Admin: 09/05/17 09:12 Dose: 12.5 mg Midodrine (Proamatine) 10 mg NG Q8 [facility] Last Admin: 09/05/17 05:20 Dose: 10 mg Pantoprazole Sodium (Protonix Inj) 40 mg IVP DAILY [facility] Last Admin: 09/05/17 09:12 Dose: 40 mg Rosuvastatin Calcium (Crestor) 5 mg PO HS [facility] Last Admin: 09/04/17 22:00 Dose: 5 mg Vitamin B Complex/Vit C/Folic Acid (Nephro-Kamron) 1 tab PO 0800 [facility] Last Admin: 09/05/17 08:55 Dose: 1 tab - Labs Labs: 09/05/17 06:28 09/05/17 06:26 PT 18.0 SECONDS (9.7-12.2) H 09/05/17 06:32 INR 1.6 09/05/17 06:32 APTT 64 SECONDS (21-34) H 09/05/17 06:32
--- NOTE | 2017-09-05 15:12 | CP.PCM.PN ---
Subjective - Date & Time of Evaluation Date of Evaluation: 09/05/17 Time of Evaluation: 14:00 - Subjective Subjective: planned for cath observe! sedated Objective - Vital Signs/Intake and Output Vital Signs (last 24 hours): Temp Pulse Resp BP Pulse Ox 98.6 F 108 H 17 132/84 100 09/05/17 12:00 09/05/17 14:00 09/05/17 14:00 09/05/17 14:00 09/05/17 14:00 Intake and Output: 09/05/17 09/05/17 06:59 18:59 Intake Total 680 580 Balance 680 580 - Medications Medications: Current Medications Albuterol/Ipratropium (Duoneb 3 Mg/0.5 Mg (3 Ml) Ud) 3 ml INH RQ4 [facility] Last Admin: 09/05/17 11:39 Dose: 3 ml Aspirin (Aspirin Chewable) 81 mg PO DAILY [facility] Last Admin: 09/05/17 09:12 Dose: 81 mg Epoetin Alan (Procrit) 8,000 unit IV MWF [facility] Last Admin: 09/04/17 17:35 Dose: 8,000 unit Ergocalciferol (Drisdol 50,000 Intl Units Cap) 1 cap PO Q7D [facility] Last Admin: 08/31/17 13:51 Dose: 1 cap Ferrous Gluconate (Fergon) 324 mg PO TID [facility] Last Admin: 09/05/17 14:53 Dose: 324 mg Heparin Sodium/Sodium Chloride (Heparin 57358 Units/250ml 1/2 Normal Saline) 25 ,000 units in 250 mls @ 10.161 mls/hr IV .Q24H PRN; Protocol; 14 UNITS/KG/HR PRN Reason: PROTOCOL Last Admin: 09/04/17 09:00 Dose: 14 units/kg/hr, 10.161 mls/hr Aztreonam 1 gm/ Sodium (Chloride) 100 mls @ 100 mls/hr IVPB Q12H [facility] Metronidazole (Flagyl) 500 mg in 100 mls @ 100 mls/hr IVPB Q8H [facility] Insulin Aspart (Novolog) 0 unit SC Q6 [facility] PRN Reason: Protocol Last Admin: 09/05/17 11:43 Dose: Not Given Insulin Glargine (Lantus) 5 unit SC HS [facility] Last Admin: 09/04/17 22:00 Dose: 5 u Methylprednisolone (Solu-Medrol) 40 mg IVP Q8H [facility] Last Admin: 09/05/17 12:18 Dose: 40 mg Metoprolol Tartrate (Lopressor) 12.5 mg PO BID [facility] Last Admin: 09/05/17 09:12 Dose: 12.5 mg Midodrine (Proamatine) 10 mg NG Q8 [facility] Last Admin: 09/05/17 14:53 Dose: 10 mg Pantoprazole Sodium (Protonix Inj) 40 mg IVP DAILY [facility] Last Admin: 09/05/17 09:12 Dose: 40 mg Rosuvastatin Calcium (Crestor) 5 mg PO HS [facility] Last Admin: 09/04/17 22:00 Dose: 5 mg Vitamin B Complex/Vit C/Folic Acid (Nephro-Kamron) 1 tab PO 0800 [facility] Last Admin: 09/05/17 08:55 Dose: 1 tab - Labs Labs: 09/05/17 06:28 09/05/17 06:26 PT 18.0 SECONDS (9.7-12.2) H 09/05/17 06:32 INR 1.6 09/05/17 06:32 APTT 64 SECONDS (21-34) H 09/05/17 06:32 - Constitutional Appears: Non-toxic - Head Exam Head Exam: ATRAUMATIC - ENT Exam ENT Exam: Mucous Membranes Moist - Neck Exam Neck Exam: absent: Lymphadenopathy, Thyromegaly - Respiratory Exam Respiratory Exam: Clear to Ausculation Bilateral. absent: Rales - Cardiovascular Exam Cardiovascular Exam: REGULAR RHYTHM, Murmur - GI/Abdominal Exam GI & Abdominal Exam: Normal Bowel Sounds. 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
[2017-09-05] MEDS: Heparin25000 units/250ml 1/2NS 25,000 UNITS/250 ML BAG IV PRN (18:00)
--- NOTE | 2017-09-05 18:09 | CP.PCM.PN ---
Subjective - Date & Time of Evaluation Date of Evaluation: 09/05/17 Time of Evaluation: 04:00 - Subjective Subjective: dictated Objective - Vital Signs/Intake and Output Vital Signs (last 24 hours): Temp Pulse Resp BP Pulse Ox 97.5 F L 112 H 19 130/74 100 09/05/17 16:00 09/05/17 17:00 09/05/17 17:00 09/05/17 17:00 09/05/17 17:00 Intake and Output: 09/05/17 09/05/17 06:59 18:59 Intake Total 680 685 Balance 680 685 - Medications Medications: Current Medications Albuterol/Ipratropium (Duoneb 3 Mg/0.5 Mg (3 Ml) Ud) 3 ml INH RQ4 [facility] Last Admin: 09/05/17 15:32 Dose: 3 ml Aspirin (Aspirin Chewable) 81 mg PO DAILY [facility] Last Admin: 09/05/17 09:12 Dose: 81 mg Epoetin Alan (Procrit) 8,000 unit IV MWF [facility] Last Admin: 09/04/17 17:35 Dose: 8,000 unit Ergocalciferol (Drisdol 50,000 Intl Units Cap) 1 cap PO Q7D [facility] Last Admin: 08/31/17 13:51 Dose: 1 cap Ferrous Gluconate (Fergon) 324 mg PO TID [facility] Last Admin: 09/05/17 14:53 Dose: 324 mg Heparin Sodium/Sodium Chloride (Heparin 20416 Units/250ml 1/2 Normal Saline) 25 ,000 units in 250 mls @ 10.161 mls/hr IV .Q24H PRN; Protocol; 14 UNITS/KG/HR PRN Reason: PROTOCOL Last Admin: 09/04/17 09:00 Dose: 14 units/kg/hr, 10.161 mls/hr Aztreonam 1 gm/ Sodium (Chloride) 100 mls @ 100 mls/hr IVPB Q12H [facility] Metronidazole (Flagyl) 500 mg in 100 mls @ 100 mls/hr IVPB Q8H [facility] Insulin Aspart (Novolog) 0 unit SC Q6 [facility] PRN Reason: Protocol Last Admin: 09/05/17 11:43 Dose: Not Given Insulin Glargine (Lantus) 5 unit SC HS [facility] Last Admin: 09/04/17 22:00 Dose: 5 u Methylprednisolone (Solu-Medrol) 40 mg IVP Q8H [facility] Last Admin: 09/05/17 12:18 Dose: 40 mg Metoprolol Tartrate (Lopressor) 12.5 mg PO BID [facility] Last Admin: 09/05/17 09:12 Dose: 12.5 mg Midodrine (Proamatine) 10 mg NG Q8 [facility] Last Admin: 09/05/17 14:53 Dose: 10 mg Pantoprazole Sodium (Protonix Inj) 40 mg IVP DAILY [facility] Last Admin: 09/05/17 09:12 Dose: 40 mg Rosuvastatin Calcium (Crestor) 5 mg PO HS [facility] Last Admin: 09/04/17 22:00 Dose: 5 mg Vitamin B Complex/Vit C/Folic Acid (Nephro-Kamron) 1 tab PO 0800 [facility] Last Admin: 09/05/17 08:55 Dose: 1 tab - Labs Labs: 09/05/17 06:28 09/05/17 06:26 PT 18.0 SECONDS (9.7-12.2) H 09/05/17 06:32 INR 1.6 09/05/17 06:32 APTT 64 SECONDS (21-34) H 09/05/17 06:32
--- NOTE | 2017-09-05 18:44 | CARD ---
APPROVED REPORT EKG Measurement Heart [id number] <Conclusion> Normal sinus rhythm Nonspecific ST and T wave abnormality Abnormal ECG
[2017-09-05] MEDS: (Lantus) Insulin Glargine, Recombinant SC SCH (21:35)
--- NOTE | 2017-09-05 22:55 | CP.PCM.PN ---
Subjective - Date & Time of Evaluation Date of Evaluation: 09/05/17 Time of Evaluation: 19:00 - Subjective Subjective: D/W daughter and Grand daughter Declined cardiac cath cath cancelled for tomorrow will re visit the issue once patient is extubated Physical Exam - Additional Findings Additional findings: Physical Exam: Gen: drowsy, arousable to voice and touch but quickly falls asleep HEENT: NCAT, mucosal membranes dry Skin: (+) swelling of eyelids; (+) multiple hypopigmented areas to abdomen; (+) leathery skin to bilateral legs and feet. Cardio: tachycardic; +S1, S2; 2/6 systolic ejection murmur to right sternal border Resp: diffuse wheezing and rales, most prominent in bases bilaterally Abd: Soft, nondistended. Bowel sounds present. Midline vertical healed surgical scar. Extremities: Radial pulses present bilaterally. DP/PT pulses intact but weak. Lower extremities cool to touch. Neuro: awake but not alert; not able to follow commands Objective - Vital Signs/Intake and Output Vital Signs (last 24 hours): Temp Pulse Resp BP Pulse Ox 97.8 F 110 H 17 122/86 100 09/05/17 20:00 09/05/17 22:01 09/05/17 22:01 09/05/17 22:01 09/05/17 22:01 Intake and Output: 09/05/17 09/06/17 18:59 06:59 Intake Total 720 400 Balance 720 400 - Medications Medications: Current Medications Albuterol/Ipratropium (Duoneb 3 Mg/0.5 Mg (3 Ml) Ud) 3 ml INH RQ4 [facility] Last Admin: 09/05/17 20:11 Dose: 3 ml Aspirin (Aspirin Chewable) 81 mg PO DAILY [facility] Last Admin: 09/05/17 09:12 Dose: 81 mg Epoetin Alan (Procrit) 8,000 unit IV MWF [facility] Last Admin: 09/04/17 17:35 Dose: 8,000 unit Ergocalciferol (Drisdol 50,000 Intl Units Cap) 1 cap PO Q7D [facility] Last Admin: 08/31/17 13:51 Dose: 1 cap Ferrous Gluconate (Fergon) 324 mg PO TID [facility] Last Admin: 09/05/17 18:31 Dose: 324 mg Heparin Sodium/Sodium Chloride (Heparin 01443 Units/250ml 1/2 Normal Saline) 25 ,000 units in 250 mls @ 10.161 mls/hr IV .Q24H PRN; Protocol; 14 UNITS/KG/HR PRN Reason: PROTOCOL Last Admin: 09/04/17 09:00 Dose: 14 units/kg/hr, 10.161 mls/hr Aztreonam 1 gm/ Sodium (Chloride) 100 mls @ 100 mls/hr IVPB Q12H [facility] Metronidazole (Flagyl) 500 mg in 100 mls @ 100 mls/hr IVPB Q8H [facility] Last Admin: 09/05/17 21:35 Dose: 100 mls/hr Insulin Aspart (Novolog) 0 unit SC Q6 [facility] PRN Reason: Protocol Last Admin: 09/05/17 18:58 Dose: 4 unit Insulin Glargine (Lantus) 5 unit SC HS [facility] Last Admin: 09/05/17 21:35 Dose: 5 u Methylprednisolone (Solu-Medrol) 40 mg IVP Q8H [facility] Last Admin: 09/05/17 21:35 Dose: 40 mg Metoprolol Tartrate (Lopressor) 12.5 mg PO BID [facility] Last Admin: 09/05/17 18:31 Dose: 12.5 mg Midodrine (Proamatine) 10 mg NG Q8 [facility] Last Admin: 09/05/17 21:35 Dose: 10 mg Pantoprazole Sodium (Protonix Inj) 40 mg IVP DAILY [facility] Last Admin: 09/05/17 09:12 Dose: 40 mg Rosuvastatin Calcium (Crestor) 5 mg PO HS [facility] Last Admin: 09/05/17 21:35 Dose: 5 mg Vitamin B Complex/Vit C/Folic Acid (Nephro-Kamron) 1 tab PO 0800 [facility] Last Admin: 09/05/17 08:55 Dose: 1 tab - Labs Labs: 09/05/17 06:28 09/05/17 06:26 PT 18.0 SECONDS (9.7-12.2) H 09/05/17 06:32 INR 1.6 09/05/17 06:32 APTT 64 SECONDS (21-34) H 09/05/17 06:32 Assessment and Plan - Assessment and Plan (Free Text) Assessment: D/W daughter and Grand daughter Declined cardiac cath cath cancelled for tomorrow will re visit the issue once patient is extubated
--- NOTE | 2017-09-05 23:11 | PN ---
DATE: 09/05/2017. SUBJECTIVE: The patient was seen today and the nurse called that her antibiotics need renewals, so I renewed them and I went to see her today and she remains on the vent and still in atrial fib. PHYSICAL EXAMINATION: VITAL SIGNS: She is afebrile, T-max of 97.5, heart rate of 112, blood pressure 130/74, respirations are 19. HEENT: Head is atraumatic, normocephalic. NECK: Supple. She is intubated. LUNGS: Clear. HEART: S1 and S2, is tachycardiac. ABDOMEN: Soft, floppy, nontender. No guarding, no rigidity present. EXTREMITIES: Have foot protectors cannot assess them. LABORATORY DATA: White count is 12.2, hemoglobin 9, hematocrit 27.4, and platelet count is 108 and neutrophils are 80, lymphs are 10. Her ABG looked better. Her cultures have been all negative. ASSESSMENT AND PLAN: She is going to get cardiac cath done tomorrow, so I will leave the antibiotics on and would discontinue 24 hours after the cath as it may have just been failure but since she is still intubated, I would wait for her to be extubated in next 24-48 hours, once she is extubated, we can discontinue the antibiotics. We will follow. Karissa Adams MD
[2017-09-06] MEDS: Albuterol-Ipratrop 3 mg / 0.5 (3 ml) UD INH SCH ×7 (00:19→23:51)
[2017-09-06] MEDS: (Novolog) Insulin Aspart, Recombinant 100 u/ml 10 ml vial SC SCH ×4 (01:00→17:40)
[2017-09-06] MEDS: Aztreonam 1 GM in Sodium Chloride 0.9% 100 ML IVPB SCH ×2 (01:00→14:37)
[2017-09-06] MEDS: MethylPREDNISolone 40 mg Vial IVP SCH ×3 (05:00→20:00)
[2017-09-06 05:25] LABS: ARTERIAL BLOOD GAS HCO3 25.1 mmol/L (21-28); ARTERIAL BLOOD GAS O2 SAT 98.7 % (95-98); ARTERIAL BLOOD GAS PCO2 32 mm/Hg (35-45); ARTERIAL BLOOD GAS PH 7.47 (7.35-7.45); ARTERIAL BLOOD GAS PO2 84 mm/Hg (80-100); ARTERIAL BLOOD GAS TCO2 24.3 mmol/L (22-28)
[2017-09-06] MEDS: metroNIDAZOLE IV 500 mg/100 ml 500 MG/100 ML BAG IVPB SCH ×3 (05:30→21:40)
[2017-09-06 06:30] LABS: BASO % 0.1 % (0.0-2.0); HEMOGLOBIN 9.3 g/dL (11.0-16.0); LYMPH # 0.5 K/uL (1.0-4.3); LYMPH % 3.7 % (20.0-40.0); MEAN CELL VOLUME 85.9 fL (81.0-99.0); MEAN CORPUSCULAR HEMOGLOBIN 27.9 pg (27.0-31.0); MEAN CORPUSCULAR HGB CONC 32.5 g/dL (33.0-37.0); MEAN PLATELET VOLUME 10.2 fL (7.2-11.7); MONO # 0.6 K/uL (0.0-0.8); MONO % 4.6 % (0.0-10.0); NEUT # 11.3 K/uL (1.8-7.0); NEUT % 91.6 % (50.0-75.0); NRBC % 0.9 % (0.0-2.0); PLATELET COUNT 144 K/uL (130-400); RBC 3.35 Mil/uL (3.80-5.20); RED CELL DISTRIBUTION WIDTH 16.6 % (11.5-14.5); WHITE BLOOD COUNT 12.3 K/uL (4.8-10.8)
[2017-09-06 06:40] LABS: INR 1.5; PROTHROMBIN TIME 17.3 SECONDS (9.7-12.2)
[2017-09-06 06:53] LABS: ALBUMIN 2.9 g/dL (3.5-5.0); CALCIUM 8.1 mg/dl (8.6-10.4)
--- NOTE | 2017-09-06 07:47 | CP.PCM.PN ---
Subjective - Date & Time of Evaluation Date of Evaluation: 09/06/17 Time of Evaluation: 07:20 - Subjective Subjective: Cardiac cath placed on hold. From what I understand, the family explain that in the past she was told she needed a cardiac cath however she did not want one. Overnight she was tachycardia and they changed the ventilator settings back to PRVC. Currently on telemetry atrial fibrillation in the 90s to 110s range Objective - Vital Signs/Intake and Output Vital Signs (last 24 hours): Temp Pulse Resp BP Pulse Ox 98.6 F 98 H 16 152/81 H 100 09/06/17 04:00 09/06/17 07:01 09/06/17 07:01 09/06/17 07:01 09/06/17 07:01 Intake and Output: 09/06/17 09/06/17 06:59 18:59 Intake Total 980 35 Balance 980 35 - Medications Medications: Current Medications Albuterol/Ipratropium (Duoneb 3 Mg/0.5 Mg (3 Ml) Ud) 3 ml INH RQ4 [facility] Last Admin: 09/06/17 07:23 Dose: 3 ml Aspirin (Aspirin Chewable) 81 mg PO DAILY [facility] Last Admin: 09/05/17 09:12 Dose: 81 mg Epoetin Alan (Procrit) 8,000 unit IV MWF [facility] Last Admin: 09/04/17 17:35 Dose: 8,000 unit Ergocalciferol (Drisdol 50,000 Intl Units Cap) 1 cap PO Q7D [facility] Last Admin: 08/31/17 13:51 Dose: 1 cap Ferrous Gluconate (Fergon) 324 mg PO TID [facility] Last Admin: 09/05/17 18:31 Dose: 324 mg Heparin Sodium/Sodium Chloride (Heparin 23331 Units/250ml 1/2 Normal Saline) 25 ,000 units in 250 mls @ 10.161 mls/hr IV .Q24H PRN; Protocol; 14 UNITS/KG/HR PRN Reason: PROTOCOL Last Admin: 09/04/17 09:00 Dose: 14 units/kg/hr, 10.161 mls/hr Aztreonam 1 gm/ Sodium (Chloride) 100 mls @ 100 mls/hr IVPB Q12H [facility] Last Admin: 09/06/17 01:00 Dose: 100 mls/hr Metronidazole (Flagyl) 500 mg in 100 mls @ 100 mls/hr IVPB Q8H [facility] Last Admin: 09/06/17 05:30 Dose: 100 mls/hr Insulin Aspart (Novolog) 0 unit SC Q6 [facility] PRN Reason: Protocol Last Admin: 09/06/17 05:35 Dose: 6 unit Insulin Glargine (Lantus) 5 unit SC HS [facility] Last Admin: 09/05/17 21:35 Dose: 5 u Methylprednisolone (Solu-Medrol) 40 mg IVP Q8H [facility] Last Admin: 09/06/17 05:00 Dose: 40 mg Metoprolol Tartrate (Lopressor) 25 mg PO BID [facility] Midodrine (Proamatine) 10 mg NG Q8 [facility] Last Admin: 09/06/17 05:25 Dose: 10 mg Pantoprazole Sodium (Protonix Inj) 40 mg IVP DAILY [facility] Last Admin: 09/05/17 09:12 Dose: 40 mg Rosuvastatin Calcium (Crestor) 5 mg PO [facility] Last Admin: 09/05/17 21:35 Dose: 5 mg Vitamin B Complex/Vit C/Folic Acid (Nephro-Kamron) 1 tab PO 0800 [facility] Last Admin: 09/05/17 08:55 Dose: 1 tab - Labs Labs: 09/06/17 06:25 09/06/17 06:26 PT 17.3 SECONDS (9.7-12.2) H 09/06/17 06:00 INR 1.5 09/06/17 06:00 APTT 60 SECONDS (21-34) H 09/06/17 06:00 - Constitutional Appears: Unkempt, Older Than Stated Age, Chronically Ill - ENT Exam ENT Exam: Mucous Membranes Moist Additional comments: ET tube OGT - Respiratory Exam Additional comments: Mechanical ventilator - Cardiovascular Exam Cardiovascular Exam: Irregular Rhythm - GI/Abdominal Exam GI & Abdominal Exam: Soft - Neurological Exam Neurological Exam: Altered, Awake Neuro motor strength exam: Left Upper Extremity: 4, Right Upper Extremity: 4 - Psychiatric Exam Psychiatric exam: Depressed, Flat Affect - Skin Skin Exam: Normal Color, Warm Assessment and Plan - Assessment and Plan (Free Text) Assessment: As previously mentioned, this is a 76 year old female with a history of ESRD now getting HD, CHF, DM, HTN, hypercholesterolemia, and some sort of [place] years before, repeated TIAs, and colon CA. She was brought in by family for altered mental status and ultimately found to have severe metabolic acidosis as well as a extremely elevated troponins. Plan: 1 Acute NSTEMI , S/P Hypotension /Asystol ,CPR / Sustained VT 09/06: Cardiac catherization was canceled 09/05: Potentially cardiac catherization shortly from now. Remains on heparin ggt 09/04: atrial fibrillation appearance on telemetry, check a new 12 lead EKG. Remains on heparin ggt. 09/03: Remains in heparin ggt, statin, ASA. Hopefully at some point can have cardiac catherization. 09/02: Now off pressor medications. She remains on amiodarone Echo EF 30%. Troponins were as high as 103 then decreased. Currently on a heparin ggt, ASA, Statin. 2 Respiratory failure, intubation 09/06: Back on PRVC after having tachy cardia 09/05: Has tolerated CPAP settings throughout the night 09/04: Yesterday afternoon she was moved back to PRVC 09/03: Now changed to CPAP/PS settings. The chest XRAYs look better this morning following HD last night. 3 Atrial Fibrillation 09/06: Continue on heparin ggt, Lopressor increased to 25 BID 4 Acute renal failure 09/05: Toleratated HD well yesterday 09/04: Currently MWF HD 09/03: Underwent HD yesterday and tolerated it well. CXRAY looks better 09/02/2017: She has had one session of HD so far. Mercedes another session today 5 Leukocytosis concerning for sepsis 09/03: Today decreased WBC. Cultures negative so far 09/02/2017: The elevated WBC maybe stress related. She remains on abx Aztreonam IV and Flagyl IV 6 Acute systolic heart failure 09/03: Monitor chest XRAYs. ECHO shows EF 30% 7 Pleural effusion 09/05: Still present on CXRAYs. Continue to moniotp 09/03: Improving CXRAYs 09/02/2017: Pleural effusions minimal at this time. Continue to monitor 8 Hyperglycemia and uncontrolled DM 09/03: Reccent accucheks 130s, 130, 160 9 Anemia of chronic disease, CKD 09/03: Yesterday had 1 unit of PRBC given during HD, receiving EPO
[2017-09-06] MEDS: Multivitamin Vitamin B Complex (Nephro-Vite) Tab PO SCH (07:58)
--- NOTE | 2017-09-06 08:03 | RAD ---
Chest x-ray single frontal view History: Intubated. Comparison: 09/05/2017 Findings: Endotracheal tube approximately 1.6 centimeters above the jordan. NG tube extending into the stomach. Other lines and tubes in stable position. Additional overlying wires and tubing. Clinical correlation. Moderate venous congestion with bibasilar airspace opacities and small to moderate left and small right pleural effusion. Cardiomegaly. Calcification at the aortic knob. Degenerative changes in the spine. Impression: Endotracheal tube approximately 1.6 centimeters above the jordan. NG tube extending into the stomach. Other lines and tubes in stable position. Additional overlying wires and tubing. Clinical correlation. Moderate venous congestion with bibasilar airspace opacities and small to moderate left and small right pleural effusion. Cardiomegaly. Calcification at the aortic knob. Degenerative changes in the spine.
[2017-09-06] MEDS ORDERED: Bisacodyl 5mg EC Tab PO ONE ×2 (08:25→14:30)
[2017-09-06 09:05] LABS: ANISOCYTOSIS SLIGHT; BANDS 1 % (0-2); HYPOCHROMIC SLIGHT; LYMPHOCYTE 3 % (20-40); MONOCYTE 4 % (0-10); NEUTROPHIL 92 % (50-75); PLATELET ESTIMATE NORMAL (NORMAL); POLYCHROMIC SLIGHT; TOTAL CELLS COUNTED 100; TOXIC GRANULATION PRESENT
[2017-09-06 09:06] LABS: LARGE PLATELETS PRESENT; TARGET CELLS SLIGHT
--- NOTE | 2017-09-06 10:13 | CP.PCM.CON ---
History of Present Illness - History of Present Illness History of Present Illness: Palliative consult requested by Dr. Michael Lockhart for goals of care discussion Patient is 76 years old -[place] lady admitted to [facility] on August 29 with sternal chest pain for 1 day. On admission patient was found to have blood sugar of 500 and was severe metabolic acidosis. The CAT scan of the chest was significant for bilateral effusion, atelectasis. CAT scan of the head was negative for intracranial bleed. Cardiac consult was called. Patient was further diagnosed with pulmonary infarct, severe pulmonary hypertension, non- STEMI. Patient required respiratory support and was intubated and transferred to ICU for further care. Due to complexity of clinical presentation coronary intervention present right at risk. Reports patient was made available of these and refused cardiac catheterization. The family is supportive of the patient and they would like to respect patient's wishes. Palliative care was called to assist family and patient during these decision making process. Past medical history, anemia, arthritis, asthma, diabetes, TIA 3, colon cancer with colon resection 2009, ejection fraction 30%'s in 2017 Social history, single, , lives at home with daughter Family history, diabetes as in the family Review of Systems - Review of Systems All systems: reviewed and no additional remarkable complaints except Review of Systems: Review of system obtained from nursing, due to patient's being intubated. There are no sitting patient remained alert, and tachycardic. No fever Past Patient History - Infectious Disease Hx of Infectious Diseases: None - Tetanus Immunizations Tetanus Immunization: Unknown - Past Medical History & Family History Past Medical History?: Yes - Past Social History Smoking Status: Former Smoker - CARDIAC Hx Hypercholesterolemia: Yes Hx Hypertension: Yes Hx Peripheral Edema: Yes - PULMONARY Hx Asthma: Yes (Dx 15 yrs ago,does not use home o2 anymore) Hx Pneumonia: Yes (x2) - NEUROLOGICAL Hx Transient Ischemic Attacks (TIA): Yes (x3 about 20 yrs ago, 10 yrs ago, 7 yrs ago) - HEENT Hx HEENT Problems: Yes Hx Cataracts: Yes - RENAL Hx Chronic Kidney Disease: Yes - ENDOCRINE/METABOLIC Hx Diabetes Mellitus Type 1: Yes - HEMATOLOGICAL/ONCOLOGICAL Hx Anemia: Yes - INTEGUMENTARY Hx Dermatological Problems: No - MUSCULOSKELETAL/RHEUMATOLOGICAL Hx Arthritis: Yes Hx Fractures: Yes (Right ankle) - GASTROINTESTINAL Hx Gastrointestinal Disorders: Yes Other/Comment: Hx colon cancer - GENITOURINARY/GYNECOLOGICAL Hx Genitourinary Disorders: Yes Other/Comment: Colon CA - PSYCHIATRIC Hx Depression: No Hx Substance Use: No - SURGICAL HISTORY Hx Cataract Extraction: Yes (LEFT) - ANESTHESIA Hx Anesthesia: Yes Hx Anesthesia Reactions: No Hx Malignant Hyperthermia: No Meds Allergies/Adverse Reactions: Allergies Allergy/AdvReac Type Severity Reaction Status Date / Time Penicillins Allergy Intermediate RASH Verified 08/29/17 20:11 - Medications Medications: Current Medications Albuterol/Ipratropium (Duoneb 3 Mg/0.5 Mg (3 Ml) Ud) 3 ml INH RQ4 [facility] Last Admin: 09/06/17 07:23 Dose: 3 ml Aspirin (Aspirin Chewable) 81 mg PO DAILY [facility] Last Admin: 09/05/17 09:12 Dose: 81 mg Epoetin Alan (Procrit) 8,000 unit IV MWF [facility] Last Admin: 09/04/17 17:35 Dose: 8,000 unit Ergocalciferol (Drisdol 50,000 Intl Units Cap) 1 cap PO Q7D [facility] Last Admin: 08/31/17 13:51 Dose: 1 cap Ferrous Gluconate (Fergon) 324 mg PO TID [facility] Last Admin: 09/05/17 18:31 Dose: 324 mg Heparin Sodium/Sodium Chloride (Heparin 97134 Units/250ml 1/2 Normal Saline) 25 ,000 units in 250 mls @ 10.161 mls/hr IV .Q24H PRN; Protocol; 14 UNITS/KG/HR PRN Reason: PROTOCOL Last Admin: 09/04/17 09:00 Dose: 14 units/kg/hr, 10.161 mls/hr Aztreonam 1 gm/ Sodium (Chloride) 100 mls @ 100 mls/hr IVPB Q12H [facility] Last Admin: 09/06/17 01:00 Dose: 100 mls/hr Metronidazole (Flagyl) 500 mg in 100 mls @ 100 mls/hr IVPB Q8H [facility] Last Admin: 09/06/17 05:30 Dose: 100 mls/hr Insulin Aspart (Novolog) 0 unit SC Q6 [facility] PRN Reason: Protocol Last Admin: 09/06/17 05:35 Dose: 6 unit Insulin Glargine (Lantus) 5 unit SC HS [facility] Last Admin: 09/05/17 21:35 Dose: 5 u Methylprednisolone (Solu-Medrol) 40 mg IVP Q8H [facility] Last Admin: 09/06/17 05:00 Dose: 40 mg Metoprolol Tartrate (Lopressor) 25 mg PO BID [facility] Last Admin: 09/06/17 07:59 Dose: 25 mg Midodrine (Proamatine) 10 mg NG Q8 [facility] Last Admin: 09/06/17 05:25 Dose: 10 mg Pantoprazole Sodium (Protonix Inj) 40 mg IVP DAILY [facility] Last Admin: 09/05/17 09:12 Dose: 40 mg Rosuvastatin Calcium (Crestor) 5 mg PO HS [facility] Last Admin: 09/05/17 21:35 Dose: 5 mg Vitamin B Complex/Vit C/Folic Acid (Nephro-Kamron) 1 tab PO 0800 [facility] Last Admin: 09/06/17 07:58 Dose: 1 tab Physical Exam - Constitutional Appears: In Acute Distress - Head Exam Head Exam: ATRAUMATIC, NORMAL INSPECTION, NORMOCEPHALIC - Eye Exam Eye Exam: EOMI, Normal appearance, PERRL Pupil Exam: NORMAL ACCOMODATION, PERRL - ENT Exam ENT Exam: Mucous Membranes Dry Additional comments: On mechanical ventilation - Neck Exam Additional comments: NG tube for feedings - Respiratory Exam Additional comments: On mechanical ventilation - Cardiovascular Exam Cardiovascular Exam: Tachycardia, Irregular Rhythm - GI/Abdominal Exam GI & Abdominal Exam: Hypoactive Bowel Sounds - Rectal Exam Rectal Exam: Deferred - Extremities Exam Extremities exam: Positive for: pedal edema - Back Exam Back exam: NORMAL INSPECTION - Neurological Exam Neurological exam: Alert - Psychiatric Exam Psychiatric exam: Flat Affect - Skin Skin Exam: Normal Color, Warm Results - Vital Signs Recent Vital Signs: Last Vital Signs Temp 97.8 F 09/06/17 08:00 Pulse 106 H 09/06/17 09:00 Resp 16 09/06/17 09:00 BP 161/88 H 09/06/17 08:01 Pulse Ox 100 09/06/17 09:00 - Labs Result Diagrams: 09/06/17 06:25 09/06/17 06:26 Labs: Laboratory Results - last 24 hr 09/05/17 09/05/17 09/05/17 11:12 17:36 23:58 WBC RBC Hgb Hct MCV MCH MCHC RDW Plt Count MPV Neut % (Auto) Lymph % (Auto) [place] % (Auto) Eos % (Auto) Baso % (Auto) Neut # (Auto) Lymph # (Auto) [place] # (Auto) Eos # (Auto) Baso # (Auto) Neutrophils % (Manual) Band Neutrophils % Lymphocytes % (Manual) Monocytes % (Manual) Toxic Granulation Platelet Estimate Large Platelets Polychromasia Hypochromasia (manual) Anisocytosis (manual) Macrocytosis (manual) Target Cells PT INR APTT Puncture Site pCO2 pO2 HCO3 ABG pH ABG Total CO2 ABG O2 Saturation ABG Base Excess Christian Test ABG Potassium A-a O2 Difference Respiratory Index Sodium Chloride Glucose Lactate Vent Mode Mechanical Rate FiO2 Tidal Volume PEEP Potassium Carbon Dioxide Anion Gap BUN Creatinine Est GFR ( Amer) Est GFR (Non-Af Amer) POC Glucose (mg/dL) 98 212 H 233 H Random Glucose Calcium Phosphorus Magnesium Total Bilirubin AST ALT Alkaline Phosphatase Total Protein Albumin Globulin Albumin/Globulin Ratio Arterial Blood Potassium 09/06/17 09/06/17 09/06/17 05:12 05:33 06:00 WBC RBC Hgb Hct MCV MCH MCHC RDW Plt Count MPV Neut % (Auto) Lymph % (Auto) [place] % (Auto) Eos % (Auto) Baso % (Auto) Neut # (Auto) Lymph # (Auto) [place] # (Auto) Eos # (Auto) Baso # (Auto) Neutrophils % (Manual) Band Neutrophils % Lymphocytes % (Manual) Monocytes % (Manual) Toxic Granulation Platelet Estimate Large Platelets Polychromasia Hypochromasia (manual) Anisocytosis (manual) Macrocytosis (manual) Target Cells PT 17.3 H INR 1.5 APTT 60 H Puncture Site Rb pCO2 32 L pO2 84 HCO3 25.1 ABG pH 7.47 H ABG Total CO2 24.3 ABG O2 Saturation 98.7 H ABG Base Excess 0.3 Christian Test Na ABG Potassium 4.5 A-a O2 Difference 161.0 Respiratory Index 1.9 Sodium 135.0 Chloride 101.0 Glucose 323 H Lactate 1.6 Vent Mode Prvc Mechanical Rate 16 FiO2 40.0 Tidal Volume 500 PEEP 5 Potassium Carbon Dioxide Anion Gap BUN Creatinine Est GFR ( Amer) Est GFR (Non-Af Amer) POC Glucose (mg/dL) 253 H Random Glucose Calcium Phosphorus Magnesium Total Bilirubin AST ALT Alkaline Phosphatase Total Protein Albumin Globulin Albumin/Globulin Ratio Arterial Blood Potassium 4.5 09/06/17 09/06/17 06:25 06:26 WBC 12.3 H RBC 3.35 L Hgb 9.3 L Hct 28.7 L MCV 85.9 MCH 27.9 MCHC 32.5 L RDW 16.6 H Plt Count 144 MPV 10.2 Neut % (Auto) 91.6 H Lymph % (Auto) 3.7 L [place] % (Auto) 4.6 Eos % (Auto) 0.0 Baso % (Auto) 0.1 Neut # (Auto) 11.3 H Lymph # (Auto) 0.5 L [place] # (Auto) 0.6 Eos # (Auto) 0.0 Baso # (Auto) 0.0 Neutrophils % (Manual) 92 H Band Neutrophils % 1 Lymphocytes % (Manual) 3 L Monocytes % (Manual) 4 Toxic Granulation Present Platelet Estimate Normal Large Platelets Present Polychromasia Slight Hypochromasia (manual) Slight Anisocytosis (manual) Slight Macrocytosis (manual) Slight Target Cells Slight PT INR APTT Puncture Site pCO2 pO2 HCO3 ABG pH ABG Total CO2 ABG O2 Saturation ABG Base Excess Christian Test ABG Potassium A-a O2 Difference Respiratory Index Sodium 137 Chloride 97 L Glucose Lactate Vent Mode Mechanical Rate FiO2 Tidal Volume PEEP Potassium 4.2 Carbon Dioxide 23 Anion Gap 21 H BUN 67 H Creatinine 4.7 H Est GFR ( Amer) 11 Est GFR (Non-Af Amer) 9 POC Glucose (mg/dL) Random Glucose 280 H Calcium 8.1 L Phosphorus 5.6 H Magnesium 2.1 Total Bilirubin 1.0 AST 191 H D ALT 870 H D Alkaline Phosphatase 211 H Total Protein 5.8 L Albumin 2.9 L Globulin 2.9 Albumin/Globulin Ratio 1.0 Arterial Blood Potassium Assessment & Plan - Assessment and Plan (Free Text) Assessment: Palliative consult Full Code, there is not advanced directive on chart, PPS 10 % I reviewed medical records, all diagnostic studies, examining patient in the bed , and met with the family Patient seen and examined in the bed, alert, intubated, not sedation, able to follow simple commands, and communicates by blinking eyes. At the time of exam patient was on CPAP, HR109, afebrile. Breath sounds diminished, minimal sputum production, Abdomen soft, flat, active bowel sounds. Patient is able to move upper and lower extremities. There is discoloration to both feet. No open wounds. WBC 12.3, hemoglobin 9.3, BUN 6-7, creatinine 4.7, blood sugar 280, calcium 8.1 , albumin 2.9. Per History patient's kidney functions have worsened in the past but she was never "on hemodialysis. On this admission patient began hemodialysis and is given a left upper chest Port-A-Cath. Family meeting attended by patient's 3 sons, 2 daughters, one granddaughter, and myself, held in separate room. I reviewed with patient's clinical presentation and elicited family's knowledge about patient's condition. Family agreed the patient condition declined lately. There main concern is patient's refusal of proposed interventions such as cardiac cath. I discussed with the family risks of such intervention at this moment as presented by Dr. Suarez in his notes . All family members evaluate united in intention to respect patient's wishes. I return to the patient with the family at the bedside and using very simple words discussed with the patient her wishes for end-of-life care. When questioned if she would like us to perform chest compressions if that should be needed patient answered no. Patient also signaled that shewould not want any cardiac interventions such as cardiac catheterization. A further elaborated that lack of those interventions would result in . Patient just looked at me without giving any signals for yes or no answer. This was discussed with nursing and medical claims manager. Family and I am. To meet again this morning, to a invasive the same topic with the patient and make final decisions on goals of care. Assessment * Acutely ill patient on full life support * Severe pulmonary congestion * Severe metabolic acidosis * Acute on chronic renal injuries * Patient doesn't want chest compressions and cardiac catheterization or any other aggressive interventions * Family is supportive of patient's wishes Plan * Continue mechanical ventilation support * Family meeting today for final decisions regarding further care. Code status to be defined Advanced care planning 40 minutes
--- NOTE | 2017-09-06 11:00 | CARD ---
APPROVED REPORT EKG Measurement Heart [id number] <Conclusion> Atrial fibrillation with premature ventricular or aberrantly conducted complexes Nonspecific ST and T wave abnormality Abnormal ECG
[2017-09-06] MEDS: EPOETIN ALFA 4,000 UNIT/ML ML Dialysis IV SCH (11:19)
--- NOTE | 2017-09-06 11:29 | CP.PCM.PN ---
Subjective - Date & Time of Evaluation Date of Evaluation: 09/06/17 Time of Evaluation: 12:00 - Subjective Subjective: Still intubated with attempts for extubation, discussed with Dr. Cunningham vat cleaner, the family were hesitant about the invasive management. We'll continue with medical management in this time Objective - Vital Signs/Intake and Output Vital Signs (last 24 hours): Temp Pulse Resp BP Pulse Ox 97.8 F 86 16 150/78 100 09/06/17 10:00 09/06/17 11:00 09/06/17 11:00 09/06/17 11:00 09/06/17 11:00 Intake and Output: 09/06/17 09/06/17 06:59 18:59 Intake Total 980 290 Balance 980 290 - Medications Medications: Current Medications Albuterol/Ipratropium (Duoneb 3 Mg/0.5 Mg (3 Ml) Ud) 3 ml INH RQ4 [facility] Last Admin: 09/06/17 11:07 Dose: 3 ml Aspirin (Aspirin Chewable) 81 mg PO DAILY [facility] Last Admin: 09/05/17 09:12 Dose: 81 mg Epoetin Alan (Procrit) 8,000 unit IV MWF [facility] Last Admin: 09/06/17 11:19 Dose: 8,000 unit Ergocalciferol (Drisdol 50,000 Intl Units Cap) 1 cap PO Q7D [facility] Last Admin: 08/31/17 13:51 Dose: 1 cap Ferrous Gluconate (Fergon) 324 mg PO TID [facility] Last Admin: 09/06/17 10:37 Dose: Not Given Heparin Sodium/Sodium Chloride (Heparin 06074 Units/250ml 1/2 Normal Saline) 25 ,000 units in 250 mls @ 10.161 mls/hr IV .Q24H PRN; Protocol; 14 UNITS/KG/HR PRN Reason: PROTOCOL Last Admin: 09/05/17 18:00 Dose: 14 units/kg/hr, 10.161 mls/hr Aztreonam 1 gm/ Sodium (Chloride) 100 mls @ 100 mls/hr IVPB Q12H [facility] Last Admin: 09/06/17 01:00 Dose: 100 mls/hr Metronidazole (Flagyl) 500 mg in 100 mls @ 100 mls/hr IVPB Q8H [facility] Last Admin: 09/06/17 05:30 Dose: 100 mls/hr Insulin Aspart (Novolog) 0 unit SC Q6 [facility] PRN Reason: Protocol Last Admin: 09/06/17 05:35 Dose: 6 unit Insulin Glargine (Lantus) 5 unit SC HS [facility] Last Admin: 09/05/17 21:35 Dose: 5 u Methylprednisolone (Solu-Medrol) 40 mg IVP Q8H [facility] Last Admin: 09/06/17 05:00 Dose: 40 mg Metoprolol Tartrate (Lopressor) 25 mg PO BID [facility] Last Admin: 09/06/17 07:59 Dose: 25 mg Midodrine (Proamatine) 10 mg NG Q8 [facility] Last Admin: 09/06/17 05:25 Dose: 10 mg Pantoprazole Sodium (Protonix Inj) 40 mg IVP DAILY [facility] Last Admin: 09/05/17 09:12 Dose: 40 mg Rosuvastatin Calcium (Crestor) 5 mg PO HS [facility] Last Admin: 09/05/17 21:35 Dose: 5 mg Vitamin B Complex/Vit C/Folic Acid (Nephro-Kamron) 1 tab PO 0800 [facility] Last Admin: 09/06/17 07:58 Dose: 1 tab - Labs Labs: 09/06/17 06:25 09/06/17 06:26 PT 17.3 SECONDS (9.7-12.2) H 09/06/17 06:00 INR 1.5 09/06/17 06:00 APTT 60 SECONDS (21-34) H 09/06/17 06:00 - Constitutional Appears: Non-toxic - Head Exam Head Exam: ATRAUMATIC - ENT Exam ENT Exam: Mucous Membranes Moist - Neck Exam Neck Exam: absent: Lymphadenopathy, Thyromegaly - Respiratory Exam Respiratory Exam: Clear to Ausculation Bilateral. absent: Rales - Cardiovascular Exam Cardiovascular Exam: REGULAR RHYTHM, Murmur - GI/Abdominal Exam GI & Abdominal Exam: Normal Bowel Sounds. absent: Organomegaly - Rectal Exam Rectal Exam: Deferred - Extremities Exam Extremities Exam: Normal Capillary Refill - Neurological Exam Additional comments: Sedated - Skin Skin Exam: Dry Assessment and Plan (1) Severe sepsis Status: Acute (2) Acute on chronic renal failure Status: Acute (3) Congestive heart failure Status: Acute (4) NSTEMI (non-ST elevated myocardial infarction) Status: Acute (5) Pulmonary HTN Status: Chronic (6) Malignant neoplasm of transverse colon Status: Chronic
--- NOTE | 2017-09-06 12:53 | CP.CCUPN ---
<Rex Romero - Last Filed: 09/06/17 12:51> CCU Subjective - Physician Review Subjective (Free Text): 08/30/17 15:06 Patient seen and examined at bedside AMS spoke with nephro and want to wait for dialysis until cardio decides to do cath or not 08/30/17 17:16 PMD talked with cardio and Nephro. Medical management for cardiac issues at this time. OK to go ahead with dialysis. First session tonight 09/02/17 10:35 Over weekend patient had Vfib arrest tolerated dialysis for 45 min before becoming hypotensive Patient will again have dialysis today Giving blood today 09/03/17 13:42 patient seen and examined today patient will need cath when more stable tolerated CPAP for 2 hours today Dialysis tomorrow 09/04/17 14:07 Patient seen and examined today Tolerating CPAP trial for majority of day Dialysis today 09/05/17 13:04 patient seen and examined today Continues to tolerate CPAP Continue heparin drip and do not intubate per Cardio for cardiac cath possible tomorrow 09/05/17 15:45 Spoke with family and patient, right now they are leaning away from pursuing cardiac cath. Palliative care consult was called. I discussed with the family and patient the options including cath, DNR/DNI. No decision is made at this time. Patient is still full code. 09/06/17 12:52 Currently patient is refusing cath. Patient plan to be extubated after dialysis today family meeting later today to discuss goals or care CCU Objective - Vital Signs / Intake & Output Vital Signs (Last 4 hours): Vital Signs Temp Pulse Pulse Resp BP BP Pulse Ox 09/06/17 11:26 95 H 16 100 09/06/17 11:22 97 H 16 145/83 100 09/06/17 11:08 82 16 136/75 100 09/06/17 11:00 106 H 86 16 150/78 99 09/06/17 10:52 94 H 16 150/78 09/06/17 10:37 94 H 16 135/85 93 L 09/06/17 10:30 98 H 16 145/77 100 09/06/17 10:22 88 16 143/77 100 09/06/17 10:15 76 16 137/87 100 09/06/17 10:08 91 H 16 137/82 100 09/06/17 10:00 97.8 F 106 H 106 H 16 151/82 H 151/82 H 100 09/06/17 09:52 98 H 16 151/82 H 100 09/06/17 09:37 96 H 16 140/94 H 96 09/06/17 09:00 106 H 16 100 Intake and Output (Last 8hrs): Intake & Output 09/05/17 09/06/17 09/06/17 22:59 06:59 14:59 Intake Total 540 580 325 Balance 540 580 325 Weight 160 lb 14.999 oz Intake: Intake, IV Amount 180 280 50 Left Internal Jugular 50 50 Side-Port Right Hand 80 30 Right Proximal Port 100 200 Internal Jugular Oral 160 100 150 Tube Feeding 200 200 125 - Physical Exam Head: Positive for: Atraumatic, Normocephalic. Negative for: Tenderness, Contusion, Swelling Pupils: Positive for: PERRL. Negative for: Sluggish, Non-Reactive Extroacular Muscles: Positive for: EOMI Conjunctiva: Positive for: Normal Mouth: Positive for: Dry Pharnyx: Positive for: Normal Nose (External): Positive for: Atraumatic Neck: Positive for: Trachea Midline. Negative for: JVD Respiratory/Chest: Positive for: Good Air Exchange, Accessory Muscle Use, Decreased Breath Sounds (on bilateral bases). Negative for: Wheezes Cardiovascular: Positive for: Tachycardic Abdomen: Positive for: Distention, Normal Bowel Sounds. Negative for: Peritoneal Signs Upper Extremity: Negative for: Cyanosis, Edema Lower Extremity: Negative for: Edema Psychiatric: Positive for: Alert - Medications Active Medications: Active Medications Generic Name Dose Route Start Last Admin Trade Name Freq PRN Reason Stop Dose Admin Albuterol/Ipratropium 3 ml 09/04/17 16:00 09/06/17 11:07 Duoneb 3 Mg/0.5 Mg (3 Ml) Ud INH 3 ml RQ4 CAROLYNE Administration Aspirin 81 mg 08/30/17 10:00 09/05/17 09:12 Aspirin Chewable PO 81 mg DAILY CAROLYNE Administration Epoetin Alan 8,000 unit 09/04/17 09:00 09/06/17 11:19 Procrit IV 8,000 unit MWF CAROLYNE Administration Ergocalciferol 1 cap 08/31/17 14:45 08/31/17 13:51 Drisdol 50,000 Intl Units Cap PO 1 cap Q7D CAROLYNE Administration Ferrous Gluconate 324 mg 08/31/17 10:00 09/06/17 10:37 Fergon PO Not Given TID CAROLYNE Heparin Sodium/Sodium Chloride 25,000 units in 250 mls @ 10.161 mls/hr 08:20 09/05/17 18:00 Heparin 85689 Units/250ml 1/2 Normal Saline IV 14 units/kg/hr .Q24H PRN 10.161 mls/hr PROTOCOL Administration Protocol 14 UNITS/KG/HR Aztreonam 1 gm/ Sodium 100 mls @ 100 mls/hr 09/06/17 01:30 09/06/17 01:00 Chloride IVPB 100 mls/hr Q12H CAROLYNE Administration Metronidazole 500 mg in 100 mls @ 100 mls/hr 09/05/17 22:30 09/06/17 05:30 Flagyl IVPB 100 mls/hr Q8H CAROLYNE Administration Insulin Aspart 0 unit 09/01/17 11:49 09/06/17 12:30 Novolog SC 2 unit Q6 CAROLYNE Administration Protocol Insulin Glargine 5 unit 09/03/17 22:00 09/05/17 21:35 Lantus SC 5 u HS CAROLYNE Administration Methylprednisolone 40 mg 09/05/17 12:00 09/06/17 12:30 Solu-Medrol IVP 40 mg Q8H CAROLYNE Administration Metoprolol Tartrate 25 mg 09/06/17 08:00 09/06/17 07:59 Lopressor PO 25 mg BID CAROLYNE Administration Midodrine 10 mg 09/03/17 14:00 09/06/17 05:25 Proamatine NG 10 mg Q8 CAROLYNE Administration Pantoprazole Sodium 40 mg 09/02/17 10:00 09/05/17 09:12 Protonix Inj IVP 40 mg DAILY CAROLYNE Administration Rosuvastatin Calcium 5 mg 08/30/17 01:15 09/05/17 21:35 Crestor PO 5 mg HS CAROLYNE Administration Vitamin B Complex/Vit C/Folic Acid 1 tab 08/31/17 08:00 09/06/17 07:58 Nephro-Kamron PO 1 tab 0800 CAROLYNE Administration - Patient Studies Lab Studies: Microbiology Studies 09/03/17 Unknown Gram Stain - Final Trachasp Sputum Culture - Final NORMAL ORAL CHRISTIN Lab Studies 03/03/1809/06/17 09/06/17 Range/Units 12:16 06:26 06:25 WBC 12.3 H (4.8-10.8) K/uL RBC 3.35 L (3.80-5.20) Mil/uL Hgb 9.3 L (11.0-16.0) g/dL Hct 28.7 L (34.0-47.0) % MCV 85.9 (81.0-99.0) fL MCH 27.9 (27.0-31.0) pg MCHC 32.5 L (33.0-37.0) g/dL RDW 16.6 H (11.5-14.5) % Plt Count 144 (130-400) K/uL MPV 10.2 (7.2-11.7) fL Neut % (Auto) 91.6 H (50.0-75.0) % Lymph % (Auto) 3.7 L (20.0-40.0) % Dawson % (Auto) 4.6 (0.0-10.0) % Eos % (Auto) 0.0 (0.0-4.0) % Baso % (Auto) 0.1 (0.0-2.0) % Neut # (Auto) 11.3 H (1.8-7.0) K/uL Lymph # (Auto) 0.5 L (1.0-4.3) K/uL Dawson # (Auto) 0.6 (0.0-0.8) K/uL Eos # (Auto) 0.0 (0.0-0.7) K/uL Baso # (Auto) 0.0 (0.0-0.2) K/uL Neutrophils % (Manual) 92 H (50-75) % Band Neutrophils % 1 (0-2) % Lymphocytes % (Manual) 3 L (20-40) % Monocytes % (Manual) 4 (0-10) % Toxic Granulation Present Platelet Estimate Normal (NORMAL) Large Platelets Present Polychromasia Slight Hypochromasia (manual) Slight Anisocytosis (manual) Slight Macrocytosis (manual) Slight Target Cells Slight PT (9.7-12.2) SECONDS INR APTT (21-34) SECONDS Puncture Site pCO2 (35-45) mm/Hg pO2 (80-100) mm/Hg HCO3 (21-28) mmol/L ABG pH (7.35-7.45) ABG Total CO2 (22-28) mmol/L ABG O2 Saturation (95-98) % ABG Base Excess (-2.0-3.0) mmol/L Christian Test ABG Potassium (3.6-5.2) mmol/L A-a O2 Difference mm/Hg Respiratory Index Sodium 137 (132-148) mmol/l Chloride 97 L (98-107) mmol/L Glucose (65-105) mg/dl Lactate (0.7-2.1) mmol/L Vent Mode Mechanical Rate FiO2 % Tidal Volume PEEP Potassium 4.2 (3.6-5.2) mmol/L Carbon Dioxide 23 (22-30) mmol/L Anion Gap 21 H (10-20) BUN 67 H (7-17) mg/dL Creatinine 4.7 H (0.7-1.2) mg/dL Est GFR ( Amer) 11 Est GFR (Non-Af Amer) 9 POC Glucose (mg/dL) 199 H (65-110) mg/dL Random Glucose 280 H (65-105) mg/dL Calcium 8.1 L (8.6-10.4) mg/dl Phosphorus 5.6 H (2.5-4.5) mg/dL Magnesium 2.1 (1.6-2.3) mg/dL Total Bilirubin 1.0 (0.2-1.3) mg/dL AST 191 H D (14-36) U/L ALT 870 H D (9-52) U/L Alkaline Phosphatase 211 H (38-126) U/L Total Protein 5.8 L (6.3-8.3) g/dL Albumin 2.9 L (3.5-5.0) g/dL Globulin 2.9 (2.2-3.9) gm/dL Albumin/Globulin Ratio 1.0 (1.0-2.1) Arterial Blood Potassium (3.6-5.2) mmol/L 09/06/17 09/06/17 09/06/17 Range/Units 06:00 05:33 05:12 WBC (4.8-10.8) K/uL RBC (3.80-5.20) Mil/uL Hgb (11.0-16.0) g/dL Hct (34.0-47.0) % MCV (81.0-99.0) fL MCH (27.0-31.0) pg MCHC (33.0-37.0) g/dL RDW (11.5-14.5) % Plt Count (130-400) K/uL MPV (7.2-11.7) fL Neut % (Auto) (50.0-75.0) % Lymph % (Auto) (20.0-40.0) % Dawson % (Auto) (0.0-10.0) % Eos % (Auto) (0.0-4.0) % Baso % (Auto) (0.0-2.0) % Neut # (Auto) (1.8-7.0) K/uL Lymph # (Auto) (1.0-4.3) K/uL Dawson # (Auto) (0.0-0.8) K/uL Eos # (Auto) (0.0-0.7) K/uL Baso # (Auto) (0.0-0.2) K/uL Neutrophils % (Manual) (50-75) % Band Neutrophils % (0-2) % Lymphocytes % (Manual) (20-40) % Monocytes % (Manual) (0-10) % Toxic Granulation Platelet Estimate (NORMAL) Large Platelets Polychromasia Hypochromasia (manual) Anisocytosis (manual) Macrocytosis (manual) Target Cells PT 17.3 H (9.7-12.2) SECONDS INR 1.5 APTT 60 H (21-34) SECONDS Puncture Site Rb pCO2 32 L (35-45) mm/Hg pO2 84 (80-100) mm/Hg HCO3 25.1 (21-28) mmol/L ABG pH 7.47 H (7.35-7.45) ABG Total CO2 24.3 (22-28) mmol/L ABG O2 Saturation 98.7 H (95-98) % ABG Base Excess 0.3 (-2.0-3.0) mmol/L Christian Test Na ABG Potassium 4.5 (3.6-5.2) mmol/L A-a O2 Difference 161.0 mm/Hg Respiratory Index 1.9 Sodium 135.0 (132-148) mmol/l Chloride 101.0 (98-107) mmol/L Glucose 323 H (65-105) mg/dl Lactate 1.6 (0.7-2.1) mmol/L Vent Mode Prvc Mechanical Rate 16 FiO2 40.0 % Tidal Volume 500 PEEP 5 Potassium (3.6-5.2) mmol/L Carbon Dioxide (22-30) mmol/L Anion Gap (10-20) BUN (7-17) mg/dL Creatinine (0.7-1.2) mg/dL Est GFR ( Amer) Est GFR (Non-Af Amer) POC Glucose (mg/dL) 253 H (65-110) mg/dL Random Glucose (65-105) mg/dL Calcium (8.6-10.4) mg/dl Phosphorus (2.5-4.5) mg/dL Magnesium (1.6-2.3) mg/dL Total Bilirubin (0.2-1.3) mg/dL AST (14-36) U/L ALT (9-52) U/L Alkaline Phosphatase (38-126) U/L Total Protein (6.3-8.3) g/dL Albumin (3.5-5.0) g/dL Globulin (2.2-3.9) gm/dL Albumin/Globulin Ratio (1.0-2.1) Arterial Blood Potassium 4.5 (3.6-5.2) mmol/L 09/05/17 09/05/17 Range/Units 23:58 17:36 WBC (4.8-10.8) K/uL RBC (3.80-5.20) Mil/uL Hgb (11.0-16.0) g/dL Hct (34.0-47.0) % MCV (81.0-99.0) fL MCH (27.0-31.0) pg MCHC (33.0-37.0) g/dL RDW (11.5-14.5) % Plt Count (130-400) K/uL MPV (7.2-11.7) fL Neut % (Auto) (50.0-75.0) % Lymph % (Auto) (20.0-40.0) % Dawson % (Auto) (0.0-10.0) % Eos % (Auto) (0.0-4.0) % Baso % (Auto) (0.0-2.0) % Neut # (Auto) (1.8-7.0) K/uL Lymph # (Auto) (1.0-4.3) K/uL Dawson # (Auto) (0.0-0.8) K/uL Eos # (Auto) (0.0-0.7) K/uL Baso # (Auto) (0.0-0.2) K/uL Neutrophils % (Manual) (50-75) % Band Neutrophils % (0-2) % Lymphocytes % (Manual) (20-40) % Monocytes % (Manual) (0-10) % Toxic Granulation Platelet Estimate (NORMAL) Large Platelets Polychromasia Hypochromasia (manual) Anisocytosis (manual) Macrocytosis (manual) Target Cells PT (9.7-12.2) SECONDS INR APTT (21-34) SECONDS Puncture Site pCO2 (35-45) mm/Hg pO2 (80-100) mm/Hg HCO3 (21-28) mmol/L ABG pH (7.35-7.45) ABG Total CO2 (22-28) mmol/L ABG O2 Saturation (95-98) % ABG Base Excess (-2.0-3.0) mmol/L Christian Test ABG Potassium (3.6-5.2) mmol/L A-a O2 Difference mm/Hg Respiratory Index Sodium (132-148) mmol/l Chloride (98-107) mmol/L Glucose (65-105) mg/dl Lactate (0.7-2.1) mmol/L Vent Mode Mechanical Rate FiO2 % Tidal Volume PEEP Potassium (3.6-5.2) mmol/L Carbon Dioxide (22-30) mmol/L Anion Gap (10-20) BUN (7-17) mg/dL Creatinine (0.7-1.2) mg/dL Est GFR ( Amer) Est GFR (Non-Af Amer) POC Glucose (mg/dL) 233 H 212 H (65-110) mg/dL Random Glucose (65-105) mg/dL Calcium (8.6-10.4) mg/dl Phosphorus (2.5-4.5) mg/dL Magnesium (1.6-2.3) mg/dL Total Bilirubin (0.2-1.3) mg/dL AST (14-36) U/L ALT (9-52) U/L Alkaline Phosphatase (38-126) U/L Total Protein (6.3-8.3) g/dL Albumin (3.5-5.0) g/dL Globulin (2.2-3.9) gm/dL Albumin/Globulin Ratio (1.0-2.1) Arterial Blood Potassium (3.6-5.2) mmol/L Laboratory Results - last 24 hr 09/05/17 09/05/17 09/06/17 17:36 23:58 05:12 WBC RBC Hgb Hct MCV MCH MCHC RDW Plt Count MPV Neut % (Auto) Lymph % (Auto) Dawson % (Auto) Eos % (Auto) Baso % (Auto) Neut # (Auto) Lymph # (Auto) Dawson # (Auto) Eos # (Auto) Baso # (Auto) Neutrophils % (Manual) Band Neutrophils % Lymphocytes % (Manual) Monocytes % (Manual) Toxic Granulation Platelet Estimate Large Platelets Polychromasia Hypochromasia (manual) Anisocytosis (manual) Macrocytosis (manual) Target Cells PT INR APTT Puncture Site Rb pCO2 32 L pO2 84 HCO3 25.1 ABG pH 7.47 H ABG Total CO2 24.3 ABG O2 Saturation 98.7 H ABG Base Excess 0.3 Christian Test Na ABG Potassium 4.5 A-a O2 Difference 161.0 Respiratory Index 1.9 Sodium 135.0 Chloride 101.0 Glucose 323 H Lactate 1.6 Vent Mode Prvc Mechanical Rate 16 FiO2 40.0 Tidal Volume 500 PEEP 5 Potassium Carbon Dioxide Anion Gap BUN Creatinine Est GFR ( Amer) Est GFR (Non-Af Amer) POC Glucose (mg/dL) 212 H 233 H Random Glucose Calcium Phosphorus Magnesium Total Bilirubin AST ALT Alkaline Phosphatase Total Protein Albumin Globulin Albumin/Globulin Ratio Arterial Blood Potassium 4.5 09/06/17 09/06/17 09/06/17 05:33 06:00 06:25 WBC 12.3 H RBC 3.35 L Hgb 9.3 L Hct 28.7 L MCV 85.9 MCH 27.9 MCHC 32.5 L RDW 16.6 H Plt Count 144 MPV 10.2 Neut % (Auto) 91.6 H Lymph % (Auto) 3.7 L Dawson % (Auto) 4.6 Eos % (Auto) 0.0 Baso % (Auto) 0.1 Neut # (Auto) 11.3 H Lymph # (Auto) 0.5 L Dawson # (Auto) 0.6 Eos # (Auto) 0.0 Baso # (Auto) 0.0 Neutrophils % (Manual) 92 H Band Neutrophils % 1 Lymphocytes % (Manual) 3 L Monocytes % (Manual) 4 Toxic Granulation Present Platelet Estimate Normal Large Platelets Present Polychromasia Slight Hypochromasia (manual) Slight Anisocytosis (manual) Slight Macrocytosis (manual) Slight Target Cells Slight PT 17.3 H INR 1.5 APTT 60 H Puncture Site pCO2 pO2 HCO3 ABG pH ABG Total CO2 ABG O2 Saturation ABG Base Excess Christian Test ABG Potassium A-a O2 Difference Respiratory Index Sodium Chloride Glucose Lactate Vent Mode Mechanical Rate FiO2 Tidal Volume PEEP Potassium Carbon Dioxide Anion Gap BUN Creatinine Est GFR ( Amer) Est GFR (Non-Af Amer) POC Glucose (mg/dL) 253 H Random Glucose Calcium Phosphorus Magnesium Total Bilirubin AST ALT Alkaline Phosphatase Total Protein Albumin Globulin Albumin/Globulin Ratio Arterial Blood Potassium 09/06/17 09/06/17 06:26 12:16 WBC RBC Hgb Hct MCV MCH MCHC RDW Plt Count MPV Neut % (Auto) Lymph % (Auto) Dawson % (Auto) Eos % (Auto) Baso % (Auto) Neut # (Auto) Lymph # (Auto) Dawson # (Auto) Eos # (Auto) Baso # (Auto) Neutrophils % (Manual) Band Neutrophils % Lymphocytes % (Manual) Monocytes % (Manual) Toxic Granulation Platelet Estimate Large Platelets Polychromasia Hypochromasia (manual) Anisocytosis (manual) Macrocytosis (manual) Target Cells PT INR APTT Puncture Site pCO2 pO2 HCO3 ABG pH ABG Total CO2 ABG O2 Saturation ABG Base Excess Christian Test ABG Potassium A-a O2 Difference Respiratory Index Sodium 137 Chloride 97 L Glucose Lactate Vent Mode Mechanical Rate FiO2 Tidal Volume PEEP Potassium 4.2 Carbon Dioxide 23 Anion Gap 21 H BUN 67 H Creatinine 4.7 H Est GFR ( Amer) 11 Est GFR (Non-Af Amer) 9 POC Glucose (mg/dL) 199 H Random Glucose 280 H Calcium 8.1 L Phosphorus 5.6 H Magnesium 2.1 Total Bilirubin 1.0 AST 191 H D ALT 870 H D Alkaline Phosphatase 211 H Total Protein 5.8 L Albumin 2.9 L Globulin 2.9 Albumin/Globulin Ratio 1.0 Arterial Blood Potassium Fingerstick Blood Sugar Results: 199 Assessment/Plan - Assessment and Plan (Free Text) Plan: 76F NSTEMI, ESRD on HD Plan: Neuro: Intubated, sedated Cardio: NSTEMI, Cards (Octavio). Family refusing cardiac cath as of now * Continue heparin for now. * ASA 81 QD * lopressor 12.5 BID * midodrine 10 Q8 * crestor 5 PO HS Pulm: Inutbated. Continues to tolerate CPAP without issue. Plan for extubation after dialysis today * Duoneb Q4 GI: No acute issues * Nepro tube feed at goal Renal: ESRD on HD MWF. Nephro (Errol) * Procrit * Vit D * Fergon * Vit B Endo: IDDM * aspart sc Q6 * glargine 5u SC HS ID: Sputum culture pending. ID (Angie) * aztreonam 1g q12 * Flagyl 500 Q8 PPX: Protonix, Heparin drip, CI to SCD (swelling) <LatefTomas M - Last Filed: 09/06/17 14:31> CCU Objective - Vital Signs / Intake & Output Vital Signs (Last 4 hours): Vital Signs Temp Pulse Pulse Resp BP BP Pulse Ox 09/06/17 14:00 116 H 19 91 L 09/06/17 13:39 121 H 17 131/80 88 L 09/06/17 13:38 112 H 19 175/67 H 97 09/06/17 13:23 121 H 16 164/74 H 100 09/06/17 13:08 121 H 15 139/75 99 09/06/17 13:00 110 H 76 16 127/82 100 09/06/17 12:53 113 H 16 127/82 100 09/06/17 12:38 116 H 16 120/54 L 94 L 09/06/17 12:30 98 H 16 120/54 L 100 09/06/17 12:23 106 H 16 108/63 100 09/06/17 12:09 110 H 16 124/70 100 09/06/17 12:00 97.6 F 119 H 108 H 16 119/58 L 100 09/06/17 11:54 110 H 16 119/58 L 100 09/06/17 11:37 94 H 18 147/82 93 L 09/06/17 11:30 95 H 16 145/83 100 09/06/17 11:22 97 H 16 145/83 100 09/06/17 11:08 82 16 136/75 100 09/06/17 11:00 106 H 86 16 150/78 99 09/06/17 10:52 94 H 16 150/78 09/06/17 10:37 94 H 16 135/85 93 L 09/06/17 10:30 98 H 16 145/77 100 Intake and Output (Last 8hrs): Intake & Output 09/05/17 09/06/17 09/06/17 22:59 06:59 14:59 Intake Total 540 580 430 Output Total 2500 Balance 540 580 -2070 Weight 160 lb 14.999 oz Intake: Intake, IV Amount 180 280 80 Left Internal Jugular 50 80 Side-Port Right Hand 80 30 Right Proximal Port 100 200 Internal Jugular Oral 160 100 150 Tube Feeding 200 200 200 Output: Other 2500 - Medications Active Medications: Active Medications Generic Name Dose Route Start Last Admin Trade Name Raffaeleq PRN Reason Stop Dose Admin Albuterol/Ipratropium 3 ml 09/04/17 16:00 09/06/17 11:07 Duoneb 3 Mg/0.5 Mg (3 Ml) Ud INH 3 ml RQ4 CAROLYNE Administration Aspirin 81 mg 08/30/17 10:00 09/05/17 09:12 Aspirin Chewable PO 81 mg DAILY CAROLYNE Administration Bisacodyl 5 mg 09/06/17 14:30 Dulcolax PO 09/06/17 14:31 ONCE ONE Epoetin Alan 8,000 unit 09/04/17 09:00 09/06/17 11:19 Procrit IV 8,000 unit MWF CAROLYNE Administration Ergocalciferol 1 cap 08/31/17 14:45 08/31/17 13:51 Drisdol 50,000 Intl Units Cap PO 1 cap Q7D CAROLYNE Administration Ferrous Gluconate 324 mg 08/31/17 10:00 09/06/17 10:37 Fergon PO Not Given TID CAROLYNE Heparin Sodium/Sodium Chloride 25,000 units in 250 mls @ 10.161 mls/hr 08:20 09/05/17 18:00 Heparin 79580 Units/250ml 1/2 Normal Saline IV 14 units/kg/hr .Q24H PRN 10.161 mls/hr PROTOCOL Administration Protocol 14 UNITS/KG/HR Aztreonam 1 gm/ Sodium 100 mls @ 100 mls/hr 09/06/17 01:30 09/06/17 01:00 Chloride IVPB 100 mls/hr Q12H CAROLYNE Administration Metronidazole 500 mg in 100 mls @ 100 mls/hr 09/05/17 22:30 09/06/17 05:30 Flagyl IVPB 100 mls/hr Q8H CAROLYNE Administration Insulin Aspart 0 unit 09/01/17 11:49 09/06/17 12:30 Novolog SC 2 unit Q6 CAROLYNE Administration Protocol Insulin Glargine 5 unit 09/03/17 22:00 09/05/17 21:35 Lantus SC 5 u HS CAROLYNE Administration Methylprednisolone 40 mg 09/05/17 12:00 09/06/17 12:30 Solu-Medrol IVP 40 mg Q8H CAROLYNE Administration Metoprolol Tartrate 25 mg 09/06/17 08:00 09/06/17 07:59 Lopressor PO 25 mg BID CAROLYNE Administration Midodrine 10 mg 09/03/17 14:00 09/06/17 05:25 Proamatine NG 10 mg Q8 CAROLYNE Administration Pantoprazole Sodium 40 mg 09/02/17 10:00 09/05/17 09:12 Protonix Inj IVP 40 mg DAILY CAROLYNE Administration Rosuvastatin Calcium 5 mg 08/30/17 01:15 09/05/17 21:35 Crestor PO 5 mg HS CAROLYNE Administration Vitamin B Complex/Vit C/Folic Acid 1 tab 08/31/17 08:00 09/06/17 07:58 Nephro-Kamron PO 1 tab 0800 CAROLYNE Administration - Patient Studies Lab Studies: Microbiology Studies 09/03/17 Unknown Gram Stain - Final Trachasp Sputum Culture - Final NORMAL ORAL CHRISTIN Lab Studies 09/06/17 09/06/17 09/06/17 Range/Units 12:16 06:26 06:25 WBC 12.3 H (4.8-10.8) K/uL RBC 3.35 L (3.80-5.20) Mil/uL Hgb 9.3 L (11.0-16.0) g/dL Hct 28.7 L (34.0-47.0) % MCV 85.9 (81.0-99.0) fL MCH 27.9 (27.0-31.0) pg MCHC 32.5 L (33.0-37.0) g/dL RDW 16.6 H (11.5-14.5) % Plt Count 144 (130-400) K/uL MPV 10.2 (7.2-11.7) fL Neut % (Auto) 91.6 H (50.0-75.0) % Lymph % (Auto) 3.7 L (20.0-40.0) % Dawson % (Auto) 4.6 (0.0-10.0) % Eos % (Auto) 0.0 (0.0-4.0) % Baso % (Auto) 0.1 (0.0-2.0) % Neut # (Auto) 11.3 H (1.8-7.0) K/uL Lymph # (Auto) 0.5 L (1.0-4.3) K/uL Dawson # (Auto) 0.6 (0.0-0.8) K/uL Eos # (Auto) 0.0 (0.0-0.7) K/uL Baso # (Auto) 0.0 (0.0-0.2) K/uL Neutrophils % (Manual) 92 H (50-75) % Band Neutrophils % 1 (0-2) % Lymphocytes % (Manual) 3 L (20-40) % Monocytes % (Manual) 4 (0-10) % Toxic Granulation Present Platelet Estimate Normal (NORMAL) Large Platelets Present Polychromasia Slight Hypochromasia (manual) Slight Anisocytosis (manual) Slight Macrocytosis (manual) Slight Target Cells Slight PT (9.7-12.2) SECONDS INR APTT (21-34) SECONDS Puncture Site pCO2 (35-45) mm/Hg pO2 (80-100) mm/Hg HCO3 (21-28) mmol/L ABG pH (7.35-7.45) ABG Total CO2 (22-28) mmol/L ABG O2 Saturation (95-98) % ABG Base Excess (-2.0-3.0) mmol/L Christian Test ABG Potassium (3.6-5.2) mmol/L A-a O2 Difference mm/Hg Respiratory Index Sodium 137 (132-148) mmol/l Chloride 97 L (98-107) mmol/L Glucose (65-105) mg/dl Lactate (0.7-2.1) mmol/L Vent Mode Mechanical Rate FiO2 % Tidal Volume PEEP Potassium 4.2 (3.6-5.2) mmol/L Carbon Dioxide 23 (22-30) mmol/L Anion Gap 21 H (10-20) BUN 67 H (7-17) mg/dL Creatinine 4.7 H (0.7-1.2) mg/dL Est GFR ( Amer) 11 Est GFR (Non-Af Amer) 9 POC Glucose (mg/dL) 199 H (65-110) mg/dL Random Glucose 280 H (65-105) mg/dL Calcium 8.1 L (8.6-10.4) mg/dl Phosphorus 5.6 H (2.5-4.5) mg/dL Magnesium 2.1 (1.6-2.3) mg/dL Total Bilirubin 1.0 (0.2-1.3) mg/dL AST 191 H D (14-36) U/L ALT 870 H D (9-52) U/L Alkaline Phosphatase 211 H (38-126) U/L Total Protein 5.8 L (6.3-8.3) g/dL Albumin 2.9 L (3.5-5.0) g/dL Globulin 2.9 (2.2-3.9) gm/dL Albumin/Globulin Ratio 1.0 (1.0-2.1) Arterial Blood Potassium (3.6-5.2) mmol/L 09/06/17 09/06/17 09/06/17 Range/Units 06:00 05:33 05:12 WBC (4.8-10.8) K/uL RBC (3.80-5.20) Mil/uL Hgb (11.0-16.0) g/dL Hct (34.0-47.0) % MCV (81.0-99.0) fL MCH (27.0-31.0) pg MCHC (33.0-37.0) g/dL RDW (11.5-14.5) % Plt Count (130-400) K/uL MPV (7.2-11.7) fL Neut % (Auto) (50.0-75.0) % Lymph % (Auto) (20.0-40.0) % Dawson % (Auto) (0.0-10.0) % Eos % (Auto) (0.0-4.0) % Baso % (Auto) (0.0-2.0) % Neut # (Auto) (1.8-7.0) K/uL Lymph # (Auto) (1.0-4.3) K/uL Dawson # (Auto) (0.0-0.8) K/uL Eos # (Auto) (0.0-0.7) K/uL Baso # (Auto) (0.0-0.2) K/uL Neutrophils % (Manual) (50-75) % Band Neutrophils % (0-2) % Lymphocytes % (Manual) (20-40) % Monocytes % (Manual) (0-10) % Toxic Granulation Platelet Estimate (NORMAL) Large Platelets Polychromasia Hypochromasia (manual) Anisocytosis (manual) Macrocytosis (manual) Target Cells PT 17.3 H (9.7-12.2) SECONDS INR 1.5 APTT 60 H (21-34) SECONDS Puncture Site Rb pCO2 32 L (35-45) mm/Hg pO2 84 (80-100) mm/Hg HCO3 25.1 (21-28) mmol/L ABG pH 7.47 H (7.35-7.45) ABG Total CO2 24.3 (22-28) mmol/L ABG O2 Saturation 98.7 H (95-98) % ABG Base Excess 0.3 (-2.0-3.0) mmol/L Christian Test Na ABG Potassium 4.5 (3.6-5.2) mmol/L A-a O2 Difference 161.0 mm/Hg Respiratory Index 1.9 Sodium 135.0 (132-148) mmol/l Chloride 101.0 (98-107) mmol/L Glucose 323 H (65-105) mg/dl Lactate 1.6 (0.7-2.1) mmol/L Vent Mode Prvc Mechanical Rate 16 FiO2 40.0 % Tidal Volume 500 PEEP 5 Potassium (3.6-5.2) mmol/L Carbon Dioxide (22-30) mmol/L Anion Gap (10-20) BUN (7-17) mg/dL Creatinine (0.7-1.2) mg/dL Est GFR ( Amer) Est GFR (Non-Af Amer) POC Glucose (mg/dL) 253 H (65-110) mg/dL Random Glucose (65-105) mg/dL Calcium (8.6-10.4) mg/dl Phosphorus (2.5-4.5) mg/dL Magnesium (1.6-2.3) mg/dL Total Bilirubin (0.2-1.3) mg/dL AST (14-36) U/L ALT (9-52) U/L Alkaline Phosphatase (38-126) U/L Total Protein (6.3-8.3) g/dL Albumin (3.5-5.0) g/dL Globulin (2.2-3.9) gm/dL Albumin/Globulin Ratio (1.0-2.1) Arterial Blood Potassium 4.5 (3.6-5.2) mmol/L 09/05/17 09/05/17 Range/Units 23:58 17:36 WBC (4.8-10.8) K/uL RBC (3.80-5.20) Mil/uL Hgb (11.0-16.0) g/dL Hct (34.0-47.0) % MCV (81.0-99.0) fL MCH (27.0-31.0) pg MCHC (33.0-37.0) g/dL RDW (11.5-14.5) % Plt Count (130-400) K/uL MPV (7.2-11.7) fL Neut % (Auto) (50.0-75.0) % Lymph % (Auto) (20.0-40.0) % Dawson % (Auto) (0.0-10.0) % Eos % (Auto) (0.0-4.0) % Baso % (Auto) (0.0-2.0) % Neut # (Auto) (1.8-7.0) K/uL Lymph # (Auto) (1.0-4.3) K/uL Dawson # (Auto) (0.0-0.8) K/uL Eos # (Auto) (0.0-0.7) K/uL Baso # (Auto) (0.0-0.2) K/uL Neutrophils % (Manual) (50-75) % Band Neutrophils % (0-2) % Lymphocytes % (Manual) (20-40) % Monocytes % (Manual) (0-10) % Toxic Granulation Platelet Estimate (NORMAL) Large Platelets Polychromasia Hypochromasia (manual) Anisocytosis (manual) Macrocytosis (manual) Target Cells PT (9.7-12.2) SECONDS INR APTT (21-34) SECONDS Puncture Site pCO2 (35-45) mm/Hg pO2 (80-100) mm/Hg HCO3 (21-28) mmol/L ABG pH (7.35-7.45) ABG Total CO2 (22-28) mmol/L ABG O2 Saturation (95-98) % ABG Base Excess (-2.0-3.0) mmol/L Christian Test ABG Potassium (3.6-5.2) mmol/L A-a O2 Difference mm/Hg Respiratory Index Sodium (132-148) mmol/l Chloride (98-107) mmol/L Glucose (65-105) mg/dl Lactate (0.7-2.1) mmol/L Vent Mode Mechanical Rate FiO2 % Tidal Volume PEEP Potassium (3.6-5.2) mmol/L Carbon Dioxide (22-30) mmol/L Anion Gap (10-20) BUN (7-17) mg/dL Creatinine (0.7-1.2) mg/dL Est GFR ( Amer) Est GFR (Non-Af Amer) POC Glucose (mg/dL) 233 H 212 H (65-110) mg/dL Random Glucose (65-105) mg/dL Calcium (8.6-10.4) mg/dl Phosphorus (2.5-4.5) mg/dL Magnesium (1.6-2.3) mg/dL Total Bilirubin (0.2-1.3) mg/dL AST (14-36) U/L ALT (9-52) U/L Alkaline Phosphatase (38-126) U/L Total Protein (6.3-8.3) g/dL Albumin (3.5-5.0) g/dL Globulin (2.2-3.9) gm/dL Albumin/Globulin Ratio (1.0-2.1) Arterial Blood Potassium (3.6-5.2) mmol/L Laboratory Results - last 24 hr 09/05/17 09/05/17 09/06/17 17:36 23:58 05:12 WBC RBC Hgb Hct MCV MCH MCHC RDW Plt Count MPV Neut % (Auto) Lymph % (Auto) Dawson % (Auto) Eos % (Auto) Baso % (Auto) Neut # (Auto) Lymph # (Auto) Dawson # (Auto) Eos # (Auto) Baso # (Auto) Neutrophils % (Manual) Band Neutrophils % Lymphocytes % (Manual) Monocytes % (Manual) Toxic Granulation Platelet Estimate Large Platelets Polychromasia Hypochromasia (manual) Anisocytosis (manual) Macrocytosis (manual) Target Cells PT INR APTT Puncture Site Rb pCO2 32 L pO2 84 HCO3 25.1 ABG pH 7.47 H ABG Total CO2 24.3 ABG O2 Saturation 98.7 H ABG Base Excess 0.3 Christian Test Na ABG Potassium 4.5 A-a O2 Difference 161.0 Respiratory Index 1.9 Sodium 135.0 Chloride 101.0 Glucose 323 H Lactate 1.6 Vent Mode Prvc Mechanical Rate 16 FiO2 40.0 Tidal Volume 500 PEEP 5 Potassium Carbon Dioxide Anion Gap BUN Creatinine Est GFR ( Amer) Est GFR (Non-Af Amer) POC Glucose (mg/dL) 212 H 233 H Random Glucose Calcium Phosphorus Magnesium Total Bilirubin AST ALT Alkaline Phosphatase Total Protein Albumin Globulin Albumin/Globulin Ratio Arterial Blood Potassium 4.5 09/06/17 09/06/17 09/06/17 05:33 06:00 06:25 WBC 12.3 H RBC 3.35 L Hgb 9.3 L Hct 28.7 L MCV 85.9 MCH 27.9 MCHC 32.5 L RDW 16.6 H Plt Count 144 MPV 10.2 Neut % (Auto) 91.6 H Lymph % (Auto) 3.7 L Dawson % (Auto) 4.6 Eos % (Auto) 0.0 Baso % (Auto) 0.1 Neut # (Auto) 11.3 H Lymph # (Auto) 0.5 L Dawson # (Auto) 0.6 Eos # (Auto) 0.0 Baso # (Auto) 0.0 Neutrophils % (Manual) 92 H Band Neutrophils % 1 Lymphocytes % (Manual) 3 L Monocytes % (Manual) 4 Toxic Granulation Present Platelet Estimate Normal Large Platelets Present Polychromasia Slight Hypochromasia (manual) Slight Anisocytosis (manual) Slight Macrocytosis (manual) Slight Target Cells Slight PT 17.3 H INR 1.5 APTT 60 H Puncture Site pCO2 pO2 HCO3 ABG pH ABG Total CO2 ABG O2 Saturation ABG Base Excess Christian Test ABG Potassium A-a O2 Difference Respiratory Index Sodium Chloride Glucose Lactate Vent Mode Mechanical Rate FiO2 Tidal Volume PEEP Potassium Carbon Dioxide Anion Gap BUN Creatinine Est GFR ( Amer) Est GFR (Non-Af Amer) POC Glucose (mg/dL) 253 H Random Glucose Calcium Phosphorus Magnesium Total Bilirubin AST ALT Alkaline Phosphatase Total Protein Albumin Globulin Albumin/Globulin Ratio Arterial Blood Potassium 09/06/17 09/06/17 06:26 12:16 WBC RBC Hgb Hct MCV MCH MCHC RDW Plt Count MPV Neut % (Auto) Lymph % (Auto) Dawson % (Auto) Eos % (Auto) Baso % (Auto) Neut # (Auto) Lymph # (Auto) Dawson # (Auto) Eos # (Auto) Baso # (Auto) Neutrophils % (Manual) Band Neutrophils % Lymphocytes % (Manual) Monocytes % (Manual) Toxic Granulation Platelet Estimate Large Platelets Polychromasia Hypochromasia (manual) Anisocytosis (manual) Macrocytosis (manual) Target Cells PT INR APTT Puncture Site pCO2 pO2 HCO3 ABG pH ABG Total CO2 ABG O2 Saturation ABG Base Excess Christian Test ABG Potassium A-a O2 Difference Respiratory Index Sodium 137 Chloride 97 L Glucose Lactate Vent Mode Mechanical Rate FiO2 Tidal Volume PEEP Potassium 4.2 Carbon Dioxide 23 Anion Gap 21 H BUN 67 H Creatinine 4.7 H Est GFR ( Amer) 11 Est GFR (Non-Af Amer) 9 POC Glucose (mg/dL) 199 H Random Glucose 280 H Calcium 8.1 L Phosphorus 5.6 H Magnesium 2.1 Total Bilirubin 1.0 AST 191 H D ALT 870 H D Alkaline Phosphatase 211 H Total Protein 5.8 L Albumin 2.9 L Globulin 2.9 Albumin/Globulin Ratio 1.0 Arterial Blood Potassium Assessment/Plan (1) NSTEMI (non-ST elevated myocardial infarction) Current Visit: Yes Status: Acute Comment: Troponin elevated 103, EKG with no acute changes, patient is chest pain free EKG NSR, no ST or T wave changes Cardiology consult, Dr Houston Aspirin 81mg daily Crestor 5mg PO HS Heparin Drip F/U serial TROP, and EKG ECHO (2) Acute on chronic renal failure Current Visit: Yes Status: Acute Comment: - Acute kidney injury with Hyperkalemia, mostly prerenal disease also sec to sepsis and cardioreal need to R/O obstruction. - Metabolic acidosis (anion gap) - Hyperkalemia, EKG without peaked t-waves. - Repeat Labs, EKG, lactic acid, CPK, phosphate - Place a huerta and monitor urine outpu - po bicarbonate - Renal (low K) diet - Cont outpatient meds (adjust for GFR) (3) Hyperglycemia without ketosis Current Visit: Yes Status: Acute (4) Metabolic acidosis Current Visit: Yes Status: Acute (5) Pleural effusion Current Visit: Yes Status: Acute (6) Pneumonia Current Visit: Yes Status: Acute (7) Altered mental status Current Visit: No Status: Acute (8) Congestive heart failure Current Visit: Yes Status: Acute Attending/Attestation - Attestation I have personally seen and examined this patient.: Yes I have fully participated in the care of the patient.: Yes I have reviewed all pertinent clinical information: Yes Notes (Text): 09/06/17 14:29 Today: Wednesday, September 06, 2017 The Patient was seen and examined at the bedside, Medical records reviewed, and management issues were discussed and formulated with the house staff. I have reviewed all the relevant clinical, laboratory, hemodynamic, radiographic data and medications Events reviewed Pain issues, skin care, head of the bed elevation, glycemic control were addressed. Agree with above resident's assessment and treatment plans of care as transcribed in Resident note. Critically ill patient with acute hypoxemic respiratory failure, Respiratory acidosis from acuter pulmonary edema and pneumonia Continue current antibiotics Vent weaning in progress HD will fluid removal today GI PPX DVT PPX Code status: Full code Total critical care time 45 minutes
--- NOTE | 2017-09-06 15:27 | CP.PCM.PN ---
Subjective - Date & Time of Evaluation Date of Evaluation: 09/06/17 Time of Evaluation: 15:26 - Subjective Subjective: Nephrology Consultation: Assessment: critical CKD stage 5 (N18.5) with hyperkalemia, acidosis now has ESRD on HD via [facility] pulm edema, CHF, NSTEMI, pleural effusions, pneumonia AMS, hyperglycemia s/p cardiac arrest, shock liver, A fib Diabetic chronic Kidney Disease (E11.22) Hypertensive Chronic Kidney Disease (I12.9) Anemia (D64.9), Hyperphosphatemia (E83.39), Secondary Hyperparathyroidism (E21.1 ), HTN (I12.9), vit D insuff, hx of colon CA, TIAs Plan HD today as ordered. maintain hemodynamic stable. Patient not on ACEI/ARB due to low BP started iron supplements, MVI, epogen with HD, and zemplar 2 mcg with HD. d/c oral vit d vasc surgery has evaluated. ID and cardiology following KDUR supplementation as needed Dose meds/antibiotics for ESRD/HD status. Avoid fleets enema/magnesium based laxatives. Avoid nephrotoxins/NSAIDs Glycemic control Further work up/management as per primary team Thanks for allowing me to participate in care of your patient. Will follow patient with you. Please call if any Qs. d/w team Dr Edson Norton Office: [phone] Chief Complaint; unable to obtain reason for consult: CKD management source of Info: EMR HPI: Pt is a 76 F with hx of diabetes Mellitus ( years), hypertension (years), CHF, TIA, Colon CA, CKD stage 4/5, has matured AVG in left arm presented with complaints of AMS and hyperglycemia as brought by family. now has elevated trop 100, hyperkalemia, AMS and elevated sugar, pulm edema. renal consult for CKD management. pt with AMS unable to provide any hx. she had received medical management for hyperkalemia. ROS: unable to obtain Physical Examination: seen on HD General Appearance: ill appearing,intubated Vitals reviewed and noted as below Head; Atraumatic, normocephalic ENT: intubated EYES: PERRLA Neck; supple no lymphadenopathy, no thyromegaly or bruit Lungs: Normal respiratory rate/effort. Breath sounds bilateral clear, she is mechanically ventilated Heart: Normal rate. s1s2 normal. No rub or gallop. Extremities: no edema. No varicose veins. chronic hyperpigmented changes in legs Neurological: Patient is awake not communicative Skin: Warm and dry. Normal turgor. No rash. Palpitation: Normal elasticity for age Abdomen: Abdomen is soft. Bowel sounds +. There is no abdominal tenderness, no guarding/rigidity no organomegaly Psych: unable MSK: no joint tenderness or swelling. Digits and nails normal, no deformity : kidney or bladder not palpable Access: Left AVG without bruit. has left IJ shiley Labs/imaging reviewed. Past medical history, past surgical history, family history, social history, allergy reviewed and noted as below Family hx: no hx of CKD. Rest non-contributory Objective - Vital Signs/Intake and Output Vital Signs (last 24 hours): Temp Pulse Resp BP Pulse Ox 97.6 F 105 H 21 127/73 84 L 09/06/17 12:00 09/06/17 15:00 09/06/17 15:00 09/06/17 14:39 09/06/17 15:00 Intake and Output: 09/06/17 09/06/17 06:59 18:59 Intake Total 980 430 Output Total 2500 Balance 980 -2070 - Medications Medications: Current Medications Albuterol/Ipratropium (Duoneb 3 Mg/0.5 Mg (3 Ml) Ud) 3 ml INH RQ4 [facility] Last Admin: 09/06/17 11:07 Dose: 3 ml Aspirin (Aspirin Chewable) 81 mg PO DAILY [facility] Last Admin: 09/06/17 14:38 Dose: 81 mg Epoetin Alan (Procrit) 8,000 unit IV MWF [facility] Last Admin: 09/06/17 11:19 Dose: 8,000 unit Ferrous Gluconate (Fergon) 324 mg PO TID [facility] Last Admin: 09/06/17 14:38 Dose: 324 mg Heparin Sodium/Sodium Chloride (Heparin 53562 Units/250ml 1/2 Normal Saline) 25 ,000 units in 250 mls @ 10.161 mls/hr IV .Q24H PRN; Protocol; 14 UNITS/KG/HR PRN Reason: PROTOCOL Last Admin: 09/05/17 18:00 Dose: 14 units/kg/hr, 10.161 mls/hr Aztreonam 1 gm/ Sodium (Chloride) 100 mls @ 100 mls/hr IVPB Q12H [facility] Last Admin: 09/06/17 14:37 Dose: 100 mls/hr Metronidazole (Flagyl) 500 mg in 100 mls @ 100 mls/hr IVPB Q8H [facility] Last Admin: 09/06/17 14:37 Dose: 100 mls/hr Insulin Aspart (Novolog) 0 unit SC Q6 [facility] PRN Reason: Protocol Last Admin: 09/06/17 12:30 Dose: 2 unit Insulin Glargine (Lantus) 5 unit SC HS [facility] Last Admin: 09/05/17 21:35 Dose: 5 u Methylprednisolone (Solu-Medrol) 40 mg IVP Q8H [facility] Last Admin: 09/06/17 12:30 Dose: 40 mg Metoprolol Tartrate (Lopressor) 25 mg PO BID [facility] Last Admin: 09/06/17 07:59 Dose: 25 mg Midodrine (Proamatine) 10 mg NG Q8 [facility] Last Admin: 09/06/17 14:38 Dose: 10 mg Pantoprazole Sodium (Protonix Inj) 40 mg IVP DAILY [facility] Last Admin: 09/05/17 09:12 Dose: 40 mg Paricalcitol (Zemplar) 2 mcg IV MWF [facility] Rosuvastatin Calcium (Crestor) [address] [facility] Last Admin: 09/05/17 21:35 Dose: 5 mg Vitamin B Complex/Vit C/Folic Acid (Nephro-Kamron) 1 tab PO 0800 [facility] Last Admin: 09/06/17 07:58 Dose: 1 tab - Labs Labs: 09/06/17 06:25 09/06/17 06:26 PT 17.3 SECONDS (9.7-12.2) H 09/06/17 06:00 INR 1.5 09/06/17 06:00 APTT 60 SECONDS (21-34) H 09/06/17 06:00
[2017-09-06] MEDS: (Lantus) Insulin Glargine, Recombinant SC SCH (21:41)
[2017-09-07] MEDS: Aztreonam 1 GM in Sodium Chloride 0.9% 100 ML IVPB SCH ×2 (01:30→13:47)
[2017-09-07] MEDS: Albuterol-Ipratrop 3 mg / 0.5 (3 ml) UD INH SCH ×5 (03:21→20:53)
[2017-09-07] MEDS: MethylPREDNISolone 40 mg Vial IVP SCH ×3 (05:30→21:00)
[2017-09-07 05:35] LABS: ARTERIAL BLOOD GAS HCO3 24.5 mmol/L (21-28); ARTERIAL BLOOD GAS HEMOGLOBIN 9.8 g/dL (11.7-17.4); ARTERIAL BLOOD GAS O2 SAT 99.8 % (95-98); ARTERIAL BLOOD GAS PCO2 31 mm/Hg (35-45); ARTERIAL BLOOD GAS PH 7.47 (7.35-7.45); ARTERIAL BLOOD GAS PO2 175 mm/Hg (80-100); ARTERIAL BLOOD GAS TCO2 23.6 mmol/L (22-28)
[2017-09-07] MEDS: (Novolog) Insulin Aspart, Recombinant 100 u/ml 10 ml vial SC SCH ×4 (06:00→18:03)
[2017-09-07] MEDS: metroNIDAZOLE IV 500 mg/100 ml 500 MG/100 ML BAG IVPB SCH ×3 (06:00→21:45)
[2017-09-07 06:12] LABS: BASO % 0.1 % (0.0-2.0); EOS # 0.2 K/uL (0.0-0.7); EOS % 1.2 % (0.0-4.0); HEMOGLOBIN 9.3 g/dL (11.0-16.0); LYMPH # 0.7 K/uL (1.0-4.3); LYMPH % 3.9 % (20.0-40.0); MEAN CELL VOLUME 85.5 fL (81.0-99.0); MEAN CORPUSCULAR HEMOGLOBIN 28.2 pg (27.0-31.0); MEAN CORPUSCULAR HGB CONC 32.9 g/dL (33.0-37.0); MEAN PLATELET VOLUME 10.1 fL (7.2-11.7); MONO % 5.7 % (0.0-10.0); NEUT # 15.5 K/uL (1.8-7.0); NEUT % 89.1 % (50.0-75.0); PLATELET COUNT 180 K/uL (130-400); RBC 3.32 Mil/uL (3.80-5.20); RED CELL DISTRIBUTION WIDTH 16.7 % (11.5-14.5); WHITE BLOOD COUNT 17.4 K/uL (4.8-10.8)
[2017-09-07 06:40] LABS: ALBUMIN 3.1 g/dL (3.5-5.0); CALCIUM 8.5 mg/dl (8.6-10.4)
--- NOTE | 2017-09-07 08:31 | CP.PCM.PN ---
Subjective - Date & Time of Evaluation Date of Evaluation: 09/07/17 Time of Evaluation: 08:20 - Subjective Subjective: Remains intubated. Back on [facility] This morning was very awake and following me with her eyes during exam. Like previously she was raising her hands. She seemed to indicate with her head that she was not in pain when I asked her. She had HD yesterday successfully [place] she remains in atrial fibrillation HR was 110s area. Yesterday I tried increasing to lopressor 25 BID. I had a very long sit down conversation with the patient's POA Annmarie Stauffer. Annmarie explained to me there was no living will. Also she explained to me that her mother the patient indicated to them she does not want a cardiac catherization. I explained to Annmarie that the patient's heart was very weak and low EF. There is a real risk her condition could decline. Objective - Vital Signs/Intake and Output Vital Signs (last 24 hours): Temp Pulse Resp BP Pulse Ox 98.2 F 107 H 16 125/81 98 09/07/17 04:00 09/07/17 07:00 09/07/17 07:00 09/07/17 04:39 09/07/17 07:00 Intake and Output: 09/07/17 09/07/17 06:59 18:59 Intake Total 550 35 Balance 550 35 - Medications Medications: Current Medications Albuterol/Ipratropium (Duoneb 3 Mg/0.5 Mg (3 Ml) Ud) 3 ml INH RQ4 [facility] Last Admin: 09/07/17 07:35 Dose: 3 ml Aspirin (Aspirin Chewable) 81 mg PO DAILY [facility] Last Admin: 09/06/17 14:38 Dose: 81 mg Epoetin Alan (Procrit) 8,000 unit IV MWF [facility] Last Admin: 09/06/17 11:19 Dose: 8,000 unit Ferrous Gluconate (Fergon) 324 mg PO TID [facility] Last Admin: 09/06/17 17:40 Dose: 324 mg Heparin Sodium/Sodium Chloride (Heparin 00397 Units/250ml 1/2 Normal Saline) 25 ,000 units in 250 mls @ 10.161 mls/hr IV .Q24H PRN; Protocol; 14 UNITS/KG/HR PRN Reason: PROTOCOL Last Admin: 09/05/17 18:00 Dose: 14 units/kg/hr, 10.161 mls/hr Aztreonam 1 gm/ Sodium (Chloride) 100 mls @ 100 mls/hr IVPB Q12H [facility] Last Admin: 09/07/17 01:30 Dose: 100 mls/hr Metronidazole (Flagyl) 500 mg in 100 mls @ 100 mls/hr IVPB Q8H [facility] Last Admin: 09/07/17 06:00 Dose: 100 mls/hr Insulin Aspart (Novolog) 0 unit SC Q6 [facility] PRN Reason: Protocol Last Admin: 09/07/17 06:00 Dose: 4 unit Insulin Glargine (Lantus) 5 unit SC [facility] Last Admin: 09/06/17 21:41 Dose: 5 u Methylprednisolone (Solu-Medrol) 40 mg IVP Q8H [facility] Last Admin: 09/07/17 05:30 Dose: 40 mg Metoprolol Tartrate (Lopressor) 25 mg PO BID [facility] Last Admin: 09/06/17 17:40 Dose: 25 mg Midodrine (Proamatine) 10 mg NG Q8 [facility] Last Admin: 09/07/17 05:58 Dose: 10 mg Pantoprazole Sodium (Protonix Inj) 40 mg IVP DAILY [facility] Last Admin: 09/06/17 12:30 Dose: 40 mg Paricalcitol (Zemplar) 2 mcg IV MWF [facility] Rosuvastatin Calcium (Crestor) 5 mg PO [facility] Last Admin: 09/06/17 21:22 Dose: 5 mg Vitamin B Complex/Vit C/Folic Acid (Nephro-Kamron) 1 tab PO 0800 [facility] Last Admin: 09/06/17 07:58 Dose: 1 tab - Labs Labs: 09/07/17 06:03 09/07/17 06:03 PT 17.3 SECONDS (9.7-12.2) H 09/06/17 06:00 INR 1.5 09/06/17 06:00 APTT 77 SECONDS (21-34) H D 09/07/17 07:28 - Constitutional Appears: Unkempt, Confused, Chronically Ill - Head Exam Head Exam: NORMAL INSPECTION, NORMOCEPHALIC - Eye Exam Eye Exam: EOMI, Normal appearance - ENT Exam ENT Exam: Mucous Membranes Moist - Respiratory Exam Respiratory Exam: Clear to Ausculation Bilateral, NORMAL BREATHING PATTERN - Cardiovascular Exam Cardiovascular Exam: Irregular Rhythm - GI/Abdominal Exam GI & Abdominal Exam: Soft, Normal Bowel Sounds - Neurological Exam Neurological Exam: Alert, Awake Neuro motor strength exam: Left Upper Extremity: 4, Right Upper Extremity: 4 - Psychiatric Exam Psychiatric exam: Depressed, Flat Affect - Skin Skin Exam: Normal Color, Warm Assessment and Plan - Assessment and Plan (Free Text) Assessment: Assessment: As previously mentioned, this is a 76 year old female with a history of ESRD now getting HD, CHF, DM, HTN, hypercholesterolemia, and some sort of NE years before, repeated TIAs, and colon CA. She was brought in by family for altered mental status and ultimately found to have severe metabolic acidosis as well as a extremely elevated troponins. Plan: 1 Acute NSTEMI , Asystol ,CPR / Sustained VT 09/07: I had long conversation with POA Annmarie Stauffer and per the POA the patient indicated to them no cardiac catherization. I explained to POA that considering the weaknened heart function it may prove very difficult to successfully extubate patient. At this moment she remains on heparin ggt, getting HD, and also weaning trials 09/06: Cardiac catherization was canceled 09/05: Potentially cardiac catherization shortly from now. Remains on heparin ggt 09/04: atrial fibrillation appearance on telemetry, check a new 12 lead EKG. Remains on heparin ggt. 09/03: Remains in heparin ggt, statin, ASA. Hopefully at some point can have cardiac catherization. 09/02: Now off pressor medications. She remains on amiodarone Echo EF 30%. Troponins were as high as 103 then decreased. Currently on a heparin ggt, ASA, Statin. 2 Respiratory failure, intubation 09/07: Again became tachycardic at night and was switched from PS/CPAP settings back to PRVC. Family is aware that it will be difficult to extubate 09/06: Back on PRVC after having tachy cardia 09/05: Has tolerated CPAP settings throughout the night 09/04: Yesterday afternoon she was moved back to PRVC 09/03: Now changed to CPAP/PS settings. The chest XRAYs look better this morning following HD last night. 3 Atrial Fibrillation 09/07: remains in atrial fibrillation. On heparin and loppressor BID 09/06: Continue on heparin ggt, Lopressor increased to 25 BID 4 Acute renal failure 09/07 Did well with HD yesterday 09/05: Toleratated HD well yesterday 09/04: Currently MWF HD 09/03: Underwent HD yesterday and tolerated it well. CXRAY looks better 09/02/2017: She has had one session of HD so far. Vintatyana another session today 5 Leukocytosis concerning for sepsis 09/03: Today decreased WBC. Cultures negative so far 09/02/2017: The elevated WBC maybe stress related. She remains on abx Aztreonam IV and Flagyl IV 6 Acute systolic heart failure 09/03: Monitor chest XRAYs. ECHO shows EF 30% 7 Pleural effusion 09/05: Still present on CXRAYs. Continue to moniotp 09/03: Improving CXRAYs 09/02/2017: Pleural effusions minimal at this time. Continue to monitor 8 Hyperglycemia and uncontrolled DM 09/03: Reccent accucheks 130s, 130, 160 9 Anemia of chronic disease, CKD 09/03: Yesterday had 1 unit of PRBC given during HD, receiving EPO
[2017-09-07 08:53] LABS: BANDS 3 % (0-2); LYMPHOCYTE 3 % (20-40); MONOCYTE 5 % (0-10); NEUTROPHIL 89 % (50-75); PLATELET ESTIMATE NORMAL (NORMAL); TOTAL CELLS COUNTED 100
[2017-09-07 08:55] LABS: GIANT PLATELETS PRESENT; LARGE PLATELETS PRESENT; POLYCHROMIC SLIGHT; TOXIC GRANULATION PRESENT
[2017-09-07 08:56] LABS: BURR CELLS SLIGHT; HYPOCHROMIC SLIGHT; OVALOCYTES SLIGHT; POIKILOCYTOSIS SLIGHT; SCHISTOCYTES SLIGHT
[2017-09-07 08:57] LABS: ANISOCYTOSIS MODERATE
--- NOTE | 2017-09-07 09:20 | RAD ---
HISTORY: Follow-up COMPARISON: Chest x-ray 09/06/17 TECHNIQUE: Chest, one view. FINDINGS: Examination limited by habitus. Numerous external wires and leads obscure evaluation of the underlying parenchyma. Endotracheal tube terminates approximately 1.5 cm above the jordan. Right IJ approach central venous catheter extends the cavoatrial junction. Left-sided central venous catheter extends the cavoatrial junction. Nasogastric tube extends expected location of the stomach. LUNGS: Left lower lobe consolidation and or pleural effusion. Nonspecific hazy projects over the left mid lung zone of unclear significance. CARDIOVASCULAR: Cardiomegaly. Dense atherosclerotic calcifications of the aorta. OSSEOUS STRUCTURES: Degenerative changes. VISUALIZED UPPER ABDOMEN: Unremarkable. OTHER FINDINGS: Dense calcifications evident projecting at the level of the left breast soft tissues. IMPRESSION: Support lines and tubes as above. Please note that endotracheal tube terminates approximately 1 cm above the jordan and should be repositioned approximately 3 cm above the jordan. Left lower lobe consolidation and or pleural effusion. Nonspecific hazy opacity projects over the left mid lung zone of unclear significance, possibly artifactual; attention on follow-up. Additional findings as above. Findings discussed with JUAN Pierce performed 09/07/17 at 9:10 a.m..
[2017-09-07] MEDS: Multivitamin Vitamin B Complex (Nephro-Vite) Tab PO SCH (09:25)
--- NOTE | 2017-09-07 15:56 | CP.PCM.PN ---
Subjective - Date & Time of Evaluation Date of Evaluation: 09/07/17 Time of Evaluation: 15:55 - Subjective Subjective: Nephrology Consultation: Assessment: critical CKD stage 5 (N18.5) with hyperkalemia, acidosis now has ESRD on HD via [facility] pulm edema, CHF, NSTEMI, pleural effusions, pneumonia AMS, hyperglycemia s/p cardiac arrest, shock liver, A fib Diabetic chronic Kidney Disease (E11.22) Hypertensive Chronic Kidney Disease (I12.9) Anemia (D64.9), Hyperphosphatemia (E83.39), Secondary Hyperparathyroidism (E21.1 ), HTN (I12.9), vit D insuff, hx of colon CA, TIAs Plan HD saturday as ordered. no acute need today maintain hemodynamic stable. Patient not on ACEI/ARB due to low BP. consider to taper down midodrine started iron supplements, MVI, epogen with HD, and zemplar 2 mcg with HD. d/c oral vit d vasc surgery has evaluated. ID and cardiology following KDUR supplementation as needed Dose meds/antibiotics for ESRD/HD status. Avoid fleets enema/magnesium based laxatives. Avoid nephrotoxins/NSAIDs Glycemic control Further work up/management as per primary team Thanks for allowing me to participate in care of your patient. Will follow patient with you. Please call if any Qs. d/w son Dr Edson Norton Office: [phone] Chief Complaint; unable to obtain reason for consult: CKD management source of Info: EMR HPI: Pt is a 76 F with hx of diabetes Mellitus ( years), hypertension (years), CHF, TIA, Colon CA, CKD stage 4/5, has matured AVG in left arm presented with complaints of AMS and hyperglycemia as brought by family. now has elevated trop 100, hyperkalemia, AMS and elevated sugar, pulm edema. renal consult for CKD management. pt with AMS unable to provide any hx. she had received medical management for hyperkalemia. ROS: unable to obtain Physical Examination: General Appearance: ill appearing,intubated Vitals reviewed and noted as below Head; Atraumatic, normocephalic ENT: intubated EYES: PERRLA Neck; supple no lymphadenopathy, no thyromegaly or bruit Lungs: Normal respiratory rate/effort. Breath sounds bilateral clear, she is mechanically ventilated Heart: Normal rate. s1s2 normal. No rub or gallop. Extremities: no edema. No varicose veins. chronic hyperpigmented changes in legs Neurological: Patient is sleeping not communicative Skin: Warm and dry. Normal turgor. No rash. Palpitation: Normal elasticity for age Abdomen: Abdomen is soft. Bowel sounds +. There is no abdominal tenderness, no guarding/rigidity no organomegaly Psych: unable MSK: no joint tenderness or swelling. Digits and nails normal, no deformity : kidney or bladder not palpable Access: Left AVG without bruit. has left IJ shiley Labs/imaging reviewed. Past medical history, past surgical history, family history, social history, allergy reviewed and noted as below Family hx: no hx of CKD. Rest non-contributory Objective - Vital Signs/Intake and Output Vital Signs (last 24 hours): Temp Pulse Resp BP Pulse Ox 97.4 F L 112 H 16 130/76 100 09/07/17 12:00 09/07/17 15:00 09/07/17 15:00 09/07/17 14:39 09/07/17 15:00 Intake and Output: 09/07/17 09/07/17 06:59 18:59 Intake Total 550 315 Balance 550 315 - Medications Medications: Current Medications Albuterol/Ipratropium (Duoneb 3 Mg/0.5 Mg (3 Ml) Ud) 3 ml INH RQ4 [facility] Last Admin: 09/07/17 11:33 Dose: 3 ml Aspirin (Aspirin Chewable) 81 mg PO DAILY [facility] Last Admin: 09/07/17 09:25 Dose: 81 mg Epoetin Alan (Procrit) 8,000 unit IV MWF [facility] Last Admin: 09/06/17 11:19 Dose: 8,000 unit Ferrous Gluconate (Fergon) 324 mg PO TID [facility] Last Admin: 09/07/17 13:47 Dose: 324 mg Aztreonam 1 gm/ Sodium (Chloride) 100 mls @ 100 mls/hr IVPB Q12H [facility] Last Admin: 09/07/17 13:47 Dose: 100 mls/hr Metronidazole (Flagyl) 500 mg in 100 mls @ 100 mls/hr IVPB Q8H [facility] Last Admin: 09/07/17 14:36 Dose: 100 mls/hr Insulin Aspart (Novolog) 0 unit SC Q6 [facility] PRN Reason: Protocol Last Admin: 09/07/17 12:31 Dose: 6 unit Insulin Glargine (Lantus) 5 unit SC [facility] Last Admin: 09/06/17 21:41 Dose: 5 u Methylprednisolone (Solu-Medrol) 40 mg IVP Q8H [facility] Last Admin: 09/07/17 12:31 Dose: 40 mg Metoprolol Tartrate (Lopressor) 25 mg PO BID [facility] Last Admin: 09/07/17 09:25 Dose: 25 mg Midodrine (Proamatine) 10 mg NG Q8 [facility] Last Admin: 09/07/17 13:48 Dose: Not Given Pantoprazole Sodium (Protonix Inj) 40 mg IVP DAILY [facility] Last Admin: 09/07/17 09:26 Dose: 40 mg Paricalcitol (Zemplar) 2 mcg IV MWF [facility] Rosuvastatin Calcium (Crestor) 5 mg PO [facility] Last Admin: 09/06/17 21:22 Dose: 5 mg Vitamin B Complex/Vit C/Folic Acid (Nephro-Kamron) 1 tab PO 0800 [facility] Last Admin: 09/07/17 09:25 Dose: 1 tab - Labs Labs: 09/07/17 06:03 09/07/17 06:03 PT 17.3 SECONDS (9.7-12.2) H 09/06/17 06:00 INR 1.5 09/06/17 06:00 APTT 77 SECONDS (21-34) H D 09/07/17 07:28
--- NOTE | 2017-09-07 17:55 | CP.CCUPN ---
CCU Subjective - Physician Review Events Since Last Encounter (Free Text): 09/07/17 17:53 Patient still on ventilator. Awake, responding to X-rays clear looking Patient is having episodically tachycardia Chest good air entry bilaterally regular heart sound. Nontender abdomen Chest x-ray noted. Labs reviewed. Assessment and plan: 76 female with a history of end-stage renal disease on dialysis, coronary artery disease, status post cardiac arrest, V. tach and V. fib. Patient is at high risk for pulmonary edema. Family is currently refusing for intervention for coronary. In my opinion patient is at high risk for reintubation, and pulmonary edema recurrent. We'll closely monitor. Possibly extubate once patient is stable CCU Objective - Vital Signs / Intake & Output Vital Signs (Last 4 hours): Vital Signs Temp Pulse Resp BP Pulse Ox 09/07/17 17:00 101 H 16 100 09/07/17 16:39 96 H 16 113/81 100 09/07/17 16:00 98.7 F 99 H 16 100 09/07/17 15:39 105 H 16 122/73 100 09/07/17 15:00 112 H 16 100 09/07/17 14:39 109 H 16 130/76 100 09/07/17 14:00 111 H 16 100 Intake and Output (Last 8hrs): Intake & Output 09/07/17 09/07/17 09/07/17 06:59 14:59 22:59 Intake Total 280 280 105 Balance 280 280 105 Intake: Intake, IV Amount 80 80 30 Left Internal Jugular 80 80 30 Side-Port Tube Feeding 200 200 75 - Physical Exam Head: Positive for: Atraumatic, Normocephalic. Negative for: Tenderness, Contusion, Swelling Pupils: Positive for: PERRL. Negative for: Sluggish, Non-Reactive Extroacular Muscles: Positive for: EOMI Conjunctiva: Positive for: Normal Mouth: Positive for: Dry Pharnyx: Positive for: Normal Nose (External): Positive for: Atraumatic Neck: Positive for: Trachea Midline. Negative for: JVD Respiratory/Chest: Positive for: Good Air Exchange, Accessory Muscle Use, Decreased Breath Sounds (on bilateral bases). Negative for: Wheezes Cardiovascular: Positive for: Tachycardic Abdomen: Positive for: Distention, Normal Bowel Sounds. Negative for: Peritoneal Signs Upper Extremity: Negative for: Cyanosis, Edema Lower Extremity: Negative for: Edema Psychiatric: Positive for: Alert - Medications Active Medications: Active Medications Generic Name Dose Route Start Last Admin Trade Name Freq PRN Reason Stop Dose Admin Albuterol/Ipratropium 3 ml 09/04/17 16:00 09/07/17 16:58 Duoneb 3 Mg/0.5 Mg (3 Ml) Ud INH 3 ml RQ4 [facility] Administration Aspirin 81 mg 08/30/17 10:00 09/07/17 09:25 Aspirin Chewable PO 81 mg DAILY [facility] Administration Epoetin Alan 8,000 unit 09/04/17 09:00 09/06/17 11:19 Procrit IV 8,000 unit [facility] Administration Ferrous Gluconate 324 mg 08/31/17 10:00 09/07/17 13:47 Fergon PO 324 mg TID [facility] Administration Aztreonam 1 gm/ Sodium 100 mls @ 100 mls/hr 09/06/17 01:30 09/07/17 13:47 Chloride IVPB 100 mls/hr Q12H [facility] Administration Metronidazole 500 mg in 100 mls @ 100 mls/hr 09/05/17 22:30 09/07/17 14:36 Flagyl IVPB 100 mls/hr Q8H [facility] Administration Insulin Aspart 0 unit 09/01/17 11:49 09/07/17 12:31 Novolog SC 6 unit Q6 [facility] Administration Protocol Insulin Glargine 5 unit 09/03/17 22:00 09/06/17 21:41 Lantus SC 5 u HS [facility] Administration Methylprednisolone 40 mg 09/05/17 12:00 09/07/17 12:31 Solu-Medrol IVP 40 mg Q8H [facility] Administration Metoprolol Tartrate 25 mg 09/06/17 08:00 09/07/17 09:25 Lopressor PO 25 mg BID [facility] Administration Pantoprazole Sodium 40 mg 09/02/17 10:00 09/07/17 09:26 Protonix Inj IVP 40 mg DAILY [facility] Administration Paricalcitol 2 mcg 09/09/17 09:00 Zemplar IV MWF [facility] Rosuvastatin Calcium 5 mg 08/30/17 01:15 09/06/17 21:22 Crestor PO 5 mg HS [facility] Administration Vitamin B Complex/Vit C/Folic Acid 1 tab 08/31/17 08:00 09/07/17 09:25 Nephro-Kamron PO 1 tab 0800 [facility] Administration - Patient Studies Lab Studies: Lab Studies 09/07/17 09/07/17 09/07/17 Range/Units 17:39 11:30 07:28 WBC (4.8-10.8) K/uL RBC (3.80-5.20) Mil/uL Hgb (11.0-16.0) g/dL Hct (34.0-47.0) % MCV (81.0-99.0) fL MCH (27.0-31.0) pg MCHC (33.0-37.0) g/dL RDW (11.5-14.5) % Plt Count (130-400) K/uL MPV (7.2-11.7) fL Neut % (Auto) (50.0-75.0) % Lymph % (Auto) (20.0-40.0) % [place] % (Auto) (0.0-10.0) % Eos % (Auto) (0.0-4.0) % Baso % (Auto) (0.0-2.0) % Neut # (Auto) (1.8-7.0) K/uL Lymph # (Auto) (1.0-4.3) K/uL [place] # (Auto) (0.0-0.8) K/uL Eos # (Auto) (0.0-0.7) K/uL Baso # (Auto) (0.0-0.2) K/uL Neutrophils % (Manual) (50-75) % Band Neutrophils % (0-2) % Lymphocytes % (Manual) (20-40) % Monocytes % (Manual) (0-10) % Toxic Granulation Platelet Estimate (NORMAL) Large Platelets Giant Platelets Polychromasia Hypochromasia (manual) Poikilocytosis (manual Anisocytosis (manual) Ovalocytes Elías Cells Schistocytes APTT 77 H D (21-34) SECONDS Puncture Site pCO2 (35-45) mm/Hg pO2 (80-100) mm/Hg HCO3 (21-28) mmol/L ABG pH (7.35-7.45) ABG Total CO2 (22-28) mmol/L ABG O2 Saturation (95-98) % ABG Base Excess (-2.0-3.0) mmol/L ABG Hemoglobin (11.7-17.4) g/dL ABG Carboxyhemoglobin (0.5-1.5) % POC ABG HHb (Measured) (0.0-5.0) % ABG Methemoglobin (0.0-3.0) % Christian Test A-a O2 Difference mm/Hg Respiratory Index Hgb O2 Saturation (95.0-98.0) % Vent Mode Mechanical Rate FiO2 % Tidal Volume PEEP Sodium (132-148) mmol/L Potassium (3.6-5.2) mmol/L Chloride (98-107) mmol/L Carbon Dioxide (22-30) mmol/L Anion Gap (10-20) BUN (7-17) mg/dL Creatinine (0.7-1.2) mg/dL Est GFR ( Amer) Est GFR (Non-Af Amer) POC Glucose (mg/dL) 261 H 247 H (65-110) mg/dL Random Glucose (65-105) mg/dL Calcium (8.6-10.4) mg/dl Phosphorus (2.5-4.5) mg/dL Magnesium (1.6-2.3) mg/dL Total Bilirubin (0.2-1.3) mg/dL AST (14-36) U/L ALT (9-52) U/L Alkaline Phosphatase (38-126) U/L Total Protein (6.3-8.3) g/dL Albumin (3.5-5.0) g/dL Globulin (2.2-3.9) gm/dL Albumin/Globulin Ratio (1.0-2.1) 09/07/17 09/07/17 09/07/17 Range/Units 06:03 06:03 05:42 WBC 17.4 H (4.8-10.8) K/uL RBC 3.32 L (3.80-5.20) Mil/uL Hgb 9.3 L (11.0-16.0) g/dL Hct 28.4 L (34.0-47.0) % MCV 85.5 (81.0-99.0) fL MCH 28.2 (27.0-31.0) pg MCHC 32.9 L (33.0-37.0) g/dL RDW 16.7 H (11.5-14.5) % Plt Count 180 (130-400) K/uL MPV 10.1 (7.2-11.7) fL Neut % (Auto) 89.1 H (50.0-75.0) % Lymph % (Auto) 3.9 L (20.0-40.0) % [place] % (Auto) 5.7 (0.0-10.0) % Eos % (Auto) 1.2 (0.0-4.0) % Baso % (Auto) 0.1 (0.0-2.0) % Neut # (Auto) 15.5 H (1.8-7.0) K/uL Lymph # (Auto) 0.7 L (1.0-4.3) K/uL [place] # (Auto) 1.0 H (0.0-0.8) K/uL Eos # (Auto) 0.2 (0.0-0.7) K/uL Baso # (Auto) 0.0 (0.0-0.2) K/uL Neutrophils % (Manual) 89 H (50-75) % Band Neutrophils % 3 H (0-2) % Lymphocytes % (Manual) 3 L (20-40) % Monocytes % (Manual) 5 (0-10) % Toxic Granulation Present Platelet Estimate Normal (NORMAL) Large Platelets Present Giant Platelets Present Polychromasia Slight Hypochromasia (manual) Slight Poikilocytosis (manual Slight Anisocytosis (manual) Moderate Ovalocytes Slight Elías Cells Slight Schistocytes Slight APTT (21-34) SECONDS Puncture Site pCO2 (35-45) mm/Hg pO2 (80-100) mm/Hg HCO3 (21-28) mmol/L ABG pH (7.35-7.45) ABG Total CO2 (22-28) mmol/L ABG O2 Saturation (95-98) % ABG Base Excess (-2.0-3.0) mmol/L ABG Hemoglobin (11.7-17.4) g/dL ABG Carboxyhemoglobin (0.5-1.5) % POC ABG HHb (Measured) (0.0-5.0) % ABG Methemoglobin (0.0-3.0) % Christian Test A-a O2 Difference mm/Hg Respiratory Index Hgb O2 Saturation (95.0-98.0) % Vent Mode Mechanical Rate FiO2 % Tidal Volume PEEP Sodium 135 (132-148) mmol/L Potassium 4.4 (3.6-5.2) mmol/L Chloride 98 (98-107) mmol/L Carbon Dioxide 20 L (22-30) mmol/L Anion Gap 21 H (10-20) BUN 66 H (7-17) mg/dL Creatinine 4.4 H (0.7-1.2) mg/dL Est GFR ( Amer) 12 Est GFR (Non-Af Amer) 10 POC Glucose (mg/dL) 226 H (65-110) mg/dL Random Glucose 256 H (65-105) mg/dL Calcium 8.5 L (8.6-10.4) mg/dl Phosphorus 5.7 H (2.5-4.5) mg/dL Magnesium 2.1 (1.6-2.3) mg/dL Total Bilirubin 0.8 (0.2-1.3) mg/dL AST 91 H D (14-36) U/L ALT 690 H D (9-52) U/L Alkaline Phosphatase 199 H (38-126) U/L Total Protein 6.2 L (6.3-8.3) g/dL Albumin 3.1 L (3.5-5.0) g/dL Globulin 3.1 (2.2-3.9) gm/dL Albumin/Globulin Ratio 1.0 (1.0-2.1) 09/07/17 09/06/17 Range/Units 05:20 23:40 WBC (4.8-10.8) K/uL RBC (3.80-5.20) Mil/uL Hgb (11.0-16.0) g/dL Hct (34.0-47.0) % MCV (81.0-99.0) fL MCH (27.0-31.0) pg MCHC (33.0-37.0) g/dL RDW (11.5-14.5) % Plt Count (130-400) K/uL MPV (7.2-11.7) fL Neut % (Auto) (50.0-75.0) % Lymph % (Auto) (20.0-40.0) % [place] % (Auto) (0.0-10.0) % Eos % (Auto) (0.0-4.0) % Baso % (Auto) (0.0-2.0) % Neut # (Auto) (1.8-7.0) K/uL Lymph # (Auto) (1.0-4.3) K/uL [place] # (Auto) (0.0-0.8) K/uL Eos # (Auto) (0.0-0.7) K/uL Baso # (Auto) (0.0-0.2) K/uL Neutrophils % (Manual) (50-75) % Band Neutrophils % (0-2) % Lymphocytes % (Manual) (20-40) % Monocytes % (Manual) (0-10) % Toxic Granulation Platelet Estimate (NORMAL) Large Platelets Giant Platelets Polychromasia Hypochromasia (manual) Poikilocytosis (manual Anisocytosis (manual) Ovalocytes Elías Cells Schistocytes APTT (21-34) SECONDS Puncture Site Rb pCO2 31 L (35-45) mm/Hg pO2 175 H (80-100) mm/Hg HCO3 24.5 (21-28) mmol/L ABG pH 7.47 H (7.35-7.45) ABG Total CO2 23.6 (22-28) mmol/L ABG O2 Saturation 99.8 H (95-98) % ABG Base Excess -0.6 (-2.0-3.0) mmol/L ABG Hemoglobin 9.8 L (11.7-17.4) g/dL ABG Carboxyhemoglobin 1.8 H (0.5-1.5) % POC ABG HHb (Measured) 0.2 (0.0-5.0) % ABG Methemoglobin 1.1 (0.0-3.0) % Christian Test Na A-a O2 Difference 71.0 mm/Hg Respiratory Index 0.4 Hgb O2 Saturation 96.9 (95.0-98.0) % Vent Mode Prvc Mechanical Rate 16 FiO2 40.0 % Tidal Volume 500 PEEP 5 Sodium (132-148) mmol/L Potassium (3.6-5.2) mmol/L Chloride (98-107) mmol/L Carbon Dioxide (22-30) mmol/L Anion Gap (10-20) BUN (7-17) mg/dL Creatinine (0.7-1.2) mg/dL Est GFR ( Amer) Est GFR (Non-Af Amer) POC Glucose (mg/dL) 252 H (65-110) mg/dL Random Glucose (65-105) mg/dL Calcium (8.6-10.4) mg/dl Phosphorus (2.5-4.5) mg/dL Magnesium (1.6-2.3) mg/dL Total Bilirubin (0.2-1.3) mg/dL AST (14-36) U/L ALT (9-52) U/L Alkaline Phosphatase (38-126) U/L Total Protein (6.3-8.3) g/dL Albumin (3.5-5.0) g/dL Globulin (2.2-3.9) gm/dL Albumin/Globulin Ratio (1.0-2.1) Laboratory Results - last 24 hr 09/06/17 09/07/17 09/07/17 23:40 05:20 05:42 WBC RBC Hgb Hct MCV MCH MCHC RDW Plt Count MPV Neut % (Auto) Lymph % (Auto) [place] % (Auto) Eos % (Auto) Baso % (Auto) Neut # (Auto) Lymph # (Auto) [place] # (Auto) Eos # (Auto) Baso # (Auto) Neutrophils % (Manual) Band Neutrophils % Lymphocytes % (Manual) Monocytes % (Manual) Toxic Granulation Platelet Estimate Large Platelets Giant Platelets Polychromasia Hypochromasia (manual) Poikilocytosis (manual Anisocytosis (manual) Ovalocytes [place] Cells Schistocytes APTT Puncture Site Rb pCO2 31 L pO2 175 H HCO3 24.5 ABG pH 7.47 H ABG Total CO2 23.6 ABG O2 Saturation 99.8 H ABG Base Excess -0.6 ABG Hemoglobin 9.8 L ABG Carboxyhemoglobin 1.8 H POC ABG HHb (Measured) 0.2 ABG Methemoglobin 1.1 Christian Test Na A-a O2 Difference 71.0 Respiratory Index 0.4 Hgb O2 Saturation 96.9 Vent Mode Prvc Mechanical Rate 16 FiO2 40.0 Tidal Volume 500 PEEP 5 Sodium Potassium Chloride Carbon Dioxide Anion Gap BUN Creatinine Est GFR ( Amer) Est GFR (Non-Af Amer) POC Glucose (mg/dL) 252 H 226 H Random Glucose Calcium Phosphorus Magnesium Total Bilirubin AST ALT Alkaline Phosphatase Total Protein Albumin Globulin Albumin/Globulin Ratio 09/07/17 09/07/17 09/07/17 06:03 06:03 07:28 WBC 17.4 H RBC 3.32 L Hgb 9.3 L Hct 28.4 L MCV 85.5 MCH 28.2 MCHC 32.9 L RDW 16.7 H Plt Count 180 MPV 10.1 Neut % (Auto) 89.1 H Lymph % (Auto) 3.9 L [place] % (Auto) 5.7 Eos % (Auto) 1.2 Baso % (Auto) 0.1 Neut # (Auto) 15.5 H Lymph # (Auto) 0.7 L [place] # (Auto) 1.0 H Eos # (Auto) 0.2 Baso # (Auto) 0.0 Neutrophils % (Manual) 89 H Band Neutrophils % 3 H Lymphocytes % (Manual) 3 L Monocytes % (Manual) 5 Toxic Granulation Present Platelet Estimate Normal Large Platelets Present Giant Platelets Present Polychromasia Slight Hypochromasia (manual) Slight Poikilocytosis (manual Slight Anisocytosis (manual) Moderate Ovalocytes Slight [place] Cells Slight Schistocytes Slight APTT 77 H D Puncture Site pCO2 pO2 HCO3 ABG pH ABG Total CO2 ABG O2 Saturation ABG Base Excess ABG Hemoglobin ABG Carboxyhemoglobin POC ABG HHb (Measured) ABG Methemoglobin Christian Test A-a O2 Difference Respiratory Index Hgb O2 Saturation Vent Mode Mechanical Rate FiO2 Tidal Volume PEEP Sodium 135 Potassium 4.4 Chloride 98 Carbon Dioxide 20 L Anion Gap 21 H BUN 66 H Creatinine 4.4 H Est GFR ( Amer) 12 Est GFR (Non-Af Amer) 10 POC Glucose (mg/dL) Random Glucose 256 H Calcium 8.5 L Phosphorus 5.7 H Magnesium 2.1 Total Bilirubin 0.8 AST 91 H D ALT 690 H D Alkaline Phosphatase 199 H Total Protein 6.2 L Albumin 3.1 L Globulin 3.1 Albumin/Globulin Ratio 1.0 09/07/17 09/07/17 11:30 17:39 WBC RBC Hgb Hct MCV MCH MCHC RDW Plt Count MPV Neut % (Auto) Lymph % (Auto) [place] % (Auto) Eos % (Auto) Baso % (Auto) Neut # (Auto) Lymph # (Auto) [place] # (Auto) Eos # (Auto) Baso # (Auto) Neutrophils % (Manual) Band Neutrophils % Lymphocytes % (Manual) Monocytes % (Manual) Toxic Granulation Platelet Estimate Large Platelets Giant Platelets Polychromasia Hypochromasia (manual) Poikilocytosis (manual Anisocytosis (manual) Ovalocytes [place] Cells Schistocytes APTT Puncture Site pCO2 pO2 HCO3 ABG pH ABG Total CO2 ABG O2 Saturation ABG Base Excess ABG Hemoglobin ABG Carboxyhemoglobin POC ABG HHb (Measured) ABG Methemoglobin Christian Test A-a O2 Difference Respiratory Index Hgb O2 Saturation Vent Mode Mechanical Rate FiO2 Tidal Volume PEEP Sodium Potassium Chloride Carbon Dioxide Anion Gap BUN Creatinine Est GFR ( Amer) Est GFR (Non-Af Amer) POC Glucose (mg/dL) 247 H 261 H Random Glucose Calcium Phosphorus Magnesium Total Bilirubin AST ALT Alkaline Phosphatase Total Protein Albumin Globulin Albumin/Globulin Ratio Fingerstick Blood Sugar Results: 226
[2017-09-07] MEDS: Heparin25000 units/250ml 1/2NS 25,000 UNITS/250 ML BAG IV PRN (20:30)
[2017-09-07] MEDS: (Lantus) Insulin Glargine, Recombinant SC SCH (22:15)
[2017-09-08] MEDS: Albuterol-Ipratrop 3 mg / 0.5 (3 ml) UD INH SCH ×6 (00:41→19:42)
[2017-09-08] MEDS: (Novolog) Insulin Aspart, Recombinant 100 u/ml 10 ml vial SC SCH ×4 (01:00→18:10)
[2017-09-08] MEDS: Aztreonam 1 GM in Sodium Chloride 0.9% 100 ML IVPB SCH ×2 (01:45→13:40)
[2017-09-08] MEDS: MethylPREDNISolone 40 mg Vial IVP SCH (05:00)
[2017-09-08] MEDS: metroNIDAZOLE IV 500 mg/100 ml 500 MG/100 ML BAG IVPB SCH ×3 (06:00→21:15)
[2017-09-08 06:05] LABS: ABG ALLEN TEST POS; ARTERIAL BLOOD GAS HCO3 22.9 mmol/L (21-28); ARTERIAL BLOOD GAS PCO2 28 mm/Hg (35-45); ARTERIAL BLOOD GAS PH 7.47 (7.35-7.45); ARTERIAL BLOOD GAS PO2 176 mm/Hg (80-100); ARTERIAL BLOOD GAS TCO2 21.3 mmol/L (22-28)
[2017-09-08 06:26] LABS: BASO % 0.1 % (0.0-2.0); HEMOGLOBIN 8.7 g/dL (11.0-16.0); LYMPH # 0.4 K/uL (1.0-4.3); LYMPH % 2.2 % (20.0-40.0); MEAN CELL VOLUME 85.8 fL (81.0-99.0); MEAN CORPUSCULAR HEMOGLOBIN 27.7 pg (27.0-31.0); MEAN CORPUSCULAR HGB CONC 32.3 g/dL (33.0-37.0); MEAN PLATELET VOLUME 10.3 fL (7.2-11.7); MONO # 0.4 K/uL (0.0-0.8); MONO % 2.2 % (0.0-10.0); NEUT % 95.5 % (50.0-75.0); NRBC % 0.5 % (0.0-2.0); PLATELET COUNT 169 K/uL (130-400); RBC 3.16 Mil/uL (3.80-5.20); WHITE BLOOD COUNT 16.8 K/uL (4.8-10.8)
[2017-09-08 06:42] LABS: ALBUMIN 2.9 g/dL (3.5-5.0); CALCIUM 8.3 mg/dl (8.6-10.4)
--- NOTE | 2017-09-08 08:18 | CP.PCM.PN ---
Subjective - Date & Time of Evaluation Date of Evaluation: 09/08/17 Time of Evaluation: 08:05 - Subjective Subjective: Patient remains intubated at this time The patient was on PRVC setting throughout the night. HR is 100s to 110s atrial fibrillation Yesterday I had a very long sit down discussion with the patient's daughter and [facility] - Annmarie Stauffer. She explains there is no living will. As previously mentioned, patient refused the cardiac catherization from before. I explained to family that it maybe very difficult to extubate patient and that her heart function was very weak. Objective - Vital Signs/Intake and Output Vital Signs (last 24 hours): Temp Pulse Resp BP Pulse Ox 97.8 F 108 H 16 133/70 98 09/08/17 05:00 09/08/17 07:39 09/08/17 07:39 09/08/17 07:39 09/08/17 04:39 Intake and Output: 09/08/17 09/08/17 06:59 18:59 Intake Total 35 Output Total 0 Balance 35 - Medications Medications: Current Medications Albuterol/Ipratropium (Duoneb 3 Mg/0.5 Mg (3 Ml) Ud) 3 ml INH RQ4 [facility] Last Admin: 09/08/17 07:19 Dose: 3 ml Aspirin (Aspirin Chewable) 81 mg PO DAILY [facility] Last Admin: 09/07/17 09:25 Dose: 81 mg Epoetin Alan (Procrit) 8,000 unit IV MWF [facility] Last Admin: 09/06/17 11:19 Dose: 8,000 unit Ferrous Gluconate (Fergon) 324 mg PO TID [facility] Last Admin: 09/07/17 18:05 Dose: 324 mg Aztreonam 1 gm/ Sodium (Chloride) 100 mls @ 100 mls/hr IVPB Q12H [facility] Last Admin: 09/08/17 01:45 Dose: 100 mls/hr Heparin Sodium/Sodium Chloride (Heparin 64463 Units/250ml 1/2 Normal Saline) 25 ,000 units in 250 mls @ 10 mls/hr IV .Q24H PRN; Protocol PRN Reason: ADJUST RATE PER PROTOCOL Last Admin: 09/07/17 20:30 Dose: 1,000 units/hr, 10 mls/hr Metronidazole (Flagyl) 500 mg in 100 mls @ 100 mls/hr IVPB Q8 [facility] Insulin Aspart (Novolog) 0 unit SC Q6 [facility] PRN Reason: Protocol Last Admin: 09/08/17 06:29 Dose: 6 unit Insulin Glargine (Lantus) 5 unit SC HS [facility] Last Admin: 09/07/17 22:15 Dose: 5 u Methylprednisolone (Solu-Medrol) 40 mg IVP Q8H [facility] Last Admin: 09/08/17 05:00 Dose: 40 mg Metoprolol Tartrate (Lopressor) 25 mg PO BID [facility] Last Admin: 09/07/17 18:03 Dose: 25 mg Pantoprazole Sodium (Protonix Inj) 40 mg IVP DAILY [facility] Last Admin: 09/07/17 09:26 Dose: 40 mg Paricalcitol (Zemplar) 2 mcg IV MWF [facility] Rosuvastatin Calcium (Crestor) 5 mg PO [facility] Last Admin: 09/07/17 21:49 Dose: 5 mg Vitamin B Complex/Vit C/Folic Acid (Nephro-Kamron) 1 tab PO 0800 [facility] Last Admin: 09/07/17 09:25 Dose: 1 tab - Labs Labs: 09/08/17 06:23 09/08/17 06:21 PT 17.3 SECONDS (9.7-12.2) H 09/06/17 06:00 INR 1.5 09/06/17 06:00 APTT 77 SECONDS (21-34) H 09/08/17 06:23 - Constitutional Appears: Unkempt, Older Than Stated Age, Confused, Chronically Ill - Eye Exam Eye Exam: EOMI - ENT Exam ENT Exam: Mucous Membranes Moist - Respiratory Exam Respiratory Exam: Clear to Ausculation Bilateral - Cardiovascular Exam Cardiovascular Exam: Irregular Rhythm - GI/Abdominal Exam GI & Abdominal Exam: Soft, Normal Bowel Sounds - Neurological Exam Neurological Exam: Alert, Awake - Psychiatric Exam Psychiatric exam: Depressed, Flat Affect - Skin Skin Exam: Normal Color, Warm Assessment and Plan - Assessment and Plan (Free Text) Assessment: Assessment: As previously mentioned, this is a 76 year old female with a history of ESRD now getting HD, CHF, DM, HTN, hypercholesterolemia, and some sort of DE years before, repeated TIAs, and colon CA. She was brought in by family for altered mental status and ultimately found to have severe metabolic acidosis as well as a extremely elevated troponins. Plan: 1 Acute NSTEMI , Asystol ,CPR / Sustained VT 09/08: 09/07: I had long conversation with POA Annmarie Stauffer and per the POA the patient indicated to them no cardiac catherization. I explained to POA that considering the weaknened heart function it may prove very difficult to successfully extubate patient. At this moment she remains on heparin ggt, getting HD, and also weaning trials 09/06: Cardiac catherization was canceled 09/05: Potentially cardiac catherization shortly from now. Remains on heparin ggt 09/04: atrial fibrillation appearance on telemetry, check a new 12 lead EKG. Remains on heparin ggt. 09/03: Remains in heparin ggt, statin, ASA. Hopefully at some point can have cardiac catherization. 09/02: Now off pressor medications. She remains on amiodarone Echo EF 30%. Troponins were as high as 103 then decreased. Currently on a heparin ggt, ASA, Statin. 2 Respiratory failure, intubation 09/08: She may end up needing a trach and or PEG if she is not able to be succefully extubated 09/07: Again became tachycardic at night and was switched from PS/CPAP settings back to PRVC. Family is aware that it will be difficult to extubate 09/06: Back on PRVC after having tachy cardia 09/05: Has tolerated CPAP settings throughout the night 09/04: Yesterday afternoon she was moved back to PRVC 09/03: Now changed to CPAP/PS settings. The chest XRAYs look better this morning following HD last night. 3 Atrial Fibrillation 09/07: remains in atrial fibrillation. On heparin and loppressor BID 09/06: Continue on heparin ggt, Lopressor increased to 25 BID 4 Acute renal failure 09/07 Did well with HD yesterday 09/05: Toleratated HD well yesterday 09/04: Currently MWF HD 09/03: Underwent HD yesterday and tolerated it well. CXRAY looks better 09/02/2017: She has had one session of HD so far. Mercedes another session today 5 Leukocytosis concerning for sepsis 09/03: Today decreased WBC. Cultures negative so far 09/02/2017: The elevated WBC maybe stress related. She remains on abx Aztreonam IV and Flagyl IV 6 Acute systolic heart failure 09/03: Monitor chest XRAYs. ECHO shows EF 30% 7 Pleural effusion 09/05: Still present on CXRAYs. Continue to moniotp 09/03: Improving CXRAYs 09/02/2017: Pleural effusions minimal at this time. Continue to monitor 8 Hyperglycemia and uncontrolled DM 09/03: Reccent accucheks 130s, 130, 160 9 Anemia of chronic disease, CKD 09/03: Yesterday had 1 unit of PRBC given during HD, receiving EPO
[2017-09-08 08:43] LABS: ANISOCYTOSIS SLIGHT; BANDS 3 % (0-2); LYMPHOCYTE 2 % (20-40); MONOCYTE 2 % (0-10); NEUTROPHIL 93 % (50-75); NUCLEATED RED BLOOD CELL 2 % (0-0); PLATELET ESTIMATE NORMAL (NORMAL); TOTAL CELLS COUNTED 100
[2017-09-08 08:44] LABS: GIANT PLATELETS PRESENT; HYPOCHROMIC SLIGHT; LARGE PLATELETS PRESENT; POLYCHROMIC SLIGHT; TOXIC GRANULATION PRESENT
[2017-09-08 08:45] LABS: TARGET CELLS SLIGHT
--- NOTE | 2017-09-08 08:51 | RAD ---
HISTORY: Follow up on left lung haziness and ET tube placem COMPARISON: Multiple prior chest x-rays, the most recent performed 09/07/17 TECHNIQUE: Chest, one view. FINDINGS: Endotracheal tube terminates approximately 3.2 cm above the jordan. Nasogastric tube extends expected location of the stomach. Left-sided central venous catheter extends the cavoatrial junction. Right IJ approach central venous catheter extends to the expected location of the cavoatrial junction. Numerous external wires and leads. LUNGS: Mild pulmonary venous congestion. Mild haziness persists at the left lower lobe likely related to mild layering pleural effusion and atelectasis/infiltrate. More dense opacity which previously projected over the left mid lung zone is no longer evident. CARDIOVASCULAR: Cardiomegaly. Atherosclerotic calcifications. OSSEOUS STRUCTURES: Degenerative changes. VISUALIZED UPPER ABDOMEN: Unremarkable. OTHER FINDINGS: None. IMPRESSION: Support lines and tubes as above. Mild pulmonary venous congestion. Mild haziness persists at the left lower lobe likely related to mild layering pleural effusion and atelectasis/infiltrate. More dense opacity which previously projected over the left mid lung zone is no longer evident.
[2017-09-08] MEDS: Multivitamin Vitamin B Complex (Nephro-Vite) Tab PO SCH (09:41)
--- NOTE | 2017-09-08 10:26 | CP.CCUPN ---
CCU Subjective - Physician Review Events Since Last Encounter (Free Text): 09/08/17 10:25 Patient still on ventilator. Awake, responding to x-ray improvingbilateral infiltrate mild tachycardia noted Chest good air entry bilaterally regular heart sound. Nontender abdomen Chest x-ray noted. Labs reviewed. no fever Assessment and plan: 76 female with a history of end-stage renal disease on dialysis, coronary artery disease, status post cardiac arrest, V. tach and V. fib. Patient is at high risk for pulmonary edema. Family is currently refusing for intervention for coronary. In my opinion patient is at high risk for reintubation, and pulmonary edema recurrent. We'll closely monitor. Possibly extubate once patient is stable CCU Objective - Vital Signs / Intake & Output Vital Signs (Last 4 hours): Vital Signs Temp Pulse Resp BP Pulse Ox 09/08/17 10:00 108 H 16 100 09/08/17 09:41 126/62 09/08/17 09:39 105 H 16 126/62 100 09/08/17 09:00 110 H 16 100 09/08/17 08:57 97.4 F L 09/08/17 08:39 111 H 16 116/67 100 09/08/17 08:00 109 H 17 100 09/08/17 07:39 108 H 16 133/70 09/08/17 07:00 88 14 09/08/17 06:39 108 H 15 132/81 Intake and Output (Last 8hrs): Intake & Output 09/07/17 09/08/17 09/08/17 21:59 06:59 14:59 Intake Total 140 Output Total 0 Balance 140 Intake: Intake, IV Amount 40 Left Internal Jugular 40 Side-Port Right Proximal Port Internal Jugular Tube Feeding 100 Output: Urine 0 Urine, Voided 0 Stool 0 - Physical Exam Head: Positive for: Atraumatic, Normocephalic. Negative for: Tenderness, Contusion, Swelling Pupils: Positive for: PERRL. Negative for: Sluggish, Non-Reactive Extroacular Muscles: Positive for: EOMI Conjunctiva: Positive for: Normal Mouth: Positive for: Dry Pharnyx: Positive for: Normal Nose (External): Positive for: Atraumatic Neck: Positive for: Trachea Midline. Negative for: JVD Respiratory/Chest: Positive for: Good Air Exchange, Accessory Muscle Use, Decreased Breath Sounds (on bilateral bases). Negative for: Wheezes Cardiovascular: Positive for: Tachycardic Abdomen: Positive for: Distention, Normal Bowel Sounds. Negative for: Peritoneal Signs Upper Extremity: Negative for: Cyanosis, Edema Lower Extremity: Negative for: Edema Psychiatric: Positive for: Alert - Medications Active Medications: Active Medications Generic Name Dose Route Start Last Admin Trade Name Freq PRN Reason Stop Dose Admin Albuterol/Ipratropium 3 ml 09/04/17 16:00 09/08/17 07:19 Duoneb 3 Mg/0.5 Mg (3 Ml) Ud INH 3 ml RQ4 [facility] Administration Aspirin 81 mg 08/30/17 10:00 09/08/17 09:41 Aspirin Chewable PO 81 mg DAILY [facility] Administration Epoetin Alan 8,000 unit 09/04/17 09:00 09/06/17 11:19 Procrit IV 8,000 unit MWF [facility] Administration Ferrous Gluconate 324 mg 08/31/17 10:00 09/08/17 09:41 Fergon PO 324 mg TID [facility] Administration Aztreonam 1 gm/ Sodium 100 mls @ 100 mls/hr 09/06/17 01:30 09/08/17 01:45 Chloride IVPB 100 mls/hr Q12H [facility] Administration Heparin Sodium/Sodium Chloride 25,000 units in 250 mls @ 10 mls/hr 09/07/17 20 :17 09/07/17 20:30 Heparin 93947 Units/250ml 1/2 Normal Saline IV 1,000 units/hr .Q24H PRN 10 mls/hr ADJUST RATE PER PROTOCOL Administration Protocol Metronidazole 500 mg in 100 mls @ 100 mls/hr 09/08/17 14:00 Flagyl IVPB Q8 [facility] Insulin Aspart 0 unit 09/01/17 11:49 09/08/17 06:29 Novolog SC 6 unit Q6 [facility] Administration Protocol Insulin Glargine 5 unit 09/03/17 22:00 09/07/17 22:15 Lantus SC 5 u HS [facility] Administration Methylprednisolone 40 mg 09/09/17 10:00 Solu-Medrol IVP 09/12/17 10:01 DAILY [facility] Metoprolol Tartrate 25 mg 09/06/17 08:00 09/08/17 09:41 Lopressor PO 25 mg BID [facility] Administration Pantoprazole Sodium 40 mg 09/09/17 10:00 Protonix Ec Tab PO DAILY [facility] Paricalcitol 2 mcg 09/09/17 09:00 Zemplar IV MWF [facility] Rosuvastatin Calcium 5 mg 08/30/17 01:15 09/07/17 21:49 Crestor PO 5 mg HS [facility] Administration Vitamin B Complex/Vit C/Folic Acid 1 tab 08/31/17 08:00 09/08/17 09:41 Nephro-Kamron PO 1 tab 0800 [facility] Administration - Patient Studies Lab Studies: Lab Studies 09/08/17 09/08/17 09/08/17 Range/Units 06:23 06:23 06:21 WBC 16.8 H (4.8-10.8) K/uL RBC 3.16 L (3.80-5.20) Mil/uL Hgb 8.7 L (11.0-16.0) g/dL Hct 27.1 L (34.0-47.0) % MCV 85.8 (81.0-99.0) fL MCH 27.7 (27.0-31.0) pg MCHC 32.3 L (33.0-37.0) g/dL RDW 17.0 H (11.5-14.5) % Plt Count 169 (130-400) K/uL MPV 10.3 (7.2-11.7) fL Neut % (Auto) 95.5 H (50.0-75.0) % Lymph % (Auto) 2.2 L (20.0-40.0) % Rapides % (Auto) 2.2 (0.0-10.0) % Eos % (Auto) 0.0 (0.0-4.0) % Baso % (Auto) 0.1 (0.0-2.0) % Neut # (Auto) 16.0 H (1.8-7.0) K/uL Lymph # (Auto) 0.4 L (1.0-4.3) K/uL [place] # (Auto) 0.4 (0.0-0.8) K/uL Eos # (Auto) 0.0 (0.0-0.7) K/uL Baso # (Auto) 0.0 (0.0-0.2) K/uL Neutrophils % (Manual) 93 H (50-75) % Band Neutrophils % 3 H (0-2) % Lymphocytes % (Manual) 2 L (20-40) % Monocytes % (Manual) 2 (0-10) % Nucleated RBC % 2 H (0-0) % Toxic Granulation Present Platelet Estimate Normal (NORMAL) Large Platelets Present Giant Platelets Present Polychromasia Slight Hypochromasia (manual) Slight Anisocytosis (manual) Slight Macrocytosis (manual) Slight Target Cells Slight APTT 77 H (21-34) SECONDS Puncture Site pCO2 (35-45) mm/Hg pO2 (80-100) mm/Hg HCO3 (21-28) mmol/L ABG pH (7.35-7.45) ABG Total CO2 (22-28) mmol/L ABG O2 Saturation (95-98) % ABG Base Excess (-2.0-3.0) mmol/L ABG Hemoglobin (11.7-17.4) g/dL ABG Carboxyhemoglobin (0.5-1.5) % POC ABG HHb (Measured) (0.0-5.0) % ABG Methemoglobin (0.0-3.0) % Christian Test A-a O2 Difference mm/Hg Respiratory Index Hgb O2 Saturation (95.0-98.0) % Vent Mode Mechanical Rate FiO2 % Tidal Volume PEEP Sodium 135 (132-148) mmol/L Potassium 4.6 (3.6-5.2) mmol/L Chloride 97 L (98-107) mmol/L Carbon Dioxide 23 (22-30) mmol/L Anion Gap 20 (10-20) BUN 87 H (7-17) mg/dL Creatinine 5.2 H (0.7-1.2) mg/dL Est GFR ( Amer) 10 Est GFR (Non-Af Amer) 8 POC Glucose (mg/dL) (65-110) mg/dL Random Glucose 299 H (65-105) mg/dL Calcium 8.3 L (8.6-10.4) mg/dl Total Bilirubin 0.7 (0.2-1.3) mg/dL AST 57 H D (14-36) U/L ALT 502 H D (9-52) U/L Alkaline Phosphatase 216 H (38-126) U/L Total Protein 5.8 L (6.3-8.3) g/dL Albumin 2.9 L (3.5-5.0) g/dL Globulin 2.9 (2.2-3.9) gm/dL Albumin/Globulin Ratio 1.0 (1.0-2.1) 09/08/17 09/08/17 09/07/17 Range/Units 06:06 05:30 23:25 WBC (4.8-10.8) K/uL RBC (3.80-5.20) Mil/uL Hgb (11.0-16.0) g/dL Hct (34.0-47.0) % MCV (81.0-99.0) fL MCH (27.0-31.0) pg MCHC (33.0-37.0) g/dL RDW (11.5-14.5) % Plt Count (130-400) K/uL MPV (7.2-11.7) fL Neut % (Auto) (50.0-75.0) % Lymph % (Auto) (20.0-40.0) % Rapides % (Auto) (0.0-10.0) % Eos % (Auto) (0.0-4.0) % Baso % (Auto) (0.0-2.0) % Neut # (Auto) (1.8-7.0) K/uL Lymph # (Auto) (1.0-4.3) K/uL [place] # (Auto) (0.0-0.8) K/uL Eos # (Auto) (0.0-0.7) K/uL Baso # (Auto) (0.0-0.2) K/uL Neutrophils % (Manual) (50-75) % Band Neutrophils % (0-2) % Lymphocytes % (Manual) (20-40) % Monocytes % (Manual) (0-10) % Nucleated RBC % (0-0) % Toxic Granulation Platelet Estimate (NORMAL) Large Platelets Giant Platelets Polychromasia Hypochromasia (manual) Anisocytosis (manual) Macrocytosis (manual) Target Cells APTT (21-34) SECONDS Puncture Site Rradial pCO2 28 L (35-45) mm/Hg pO2 176 H (80-100) mm/Hg HCO3 22.9 (21-28) mmol/L ABG pH 7.47 H (7.35-7.45) ABG Total CO2 21.3 L (22-28) mmol/L ABG O2 Saturation 100.0 H (95-98) % ABG Base Excess -2.6 L (-2.0-3.0) mmol/L ABG Hemoglobin 9.0 L (11.7-17.4) g/dL ABG Carboxyhemoglobin 2.0 H (0.5-1.5) % POC ABG HHb (Measured) 0.0 (0.0-5.0) % ABG Methemoglobin 1.2 (0.0-3.0) % Christian Test Pos A-a O2 Difference 74.0 mm/Hg Respiratory Index 0.4 Hgb O2 Saturation 96.8 (95.0-98.0) % Vent Mode Prvc Mechanical Rate 16 FiO2 40.0 % Tidal Volume 500 PEEP 5 Sodium (132-148) mmol/L Potassium (3.6-5.2) mmol/L Chloride (98-107) mmol/L Carbon Dioxide (22-30) mmol/L Anion Gap (10-20) BUN (7-17) mg/dL Creatinine (0.7-1.2) mg/dL Est GFR ( Amer) Est GFR (Non-Af Amer) POC Glucose (mg/dL) 274 H 230 H (65-110) mg/dL Random Glucose (65-105) mg/dL Calcium (8.6-10.4) mg/dl Total Bilirubin (0.2-1.3) mg/dL AST (14-36) U/L ALT (9-52) U/L Alkaline Phosphatase (38-126) U/L Total Protein (6.3-8.3) g/dL Albumin (3.5-5.0) g/dL Globulin (2.2-3.9) gm/dL Albumin/Globulin Ratio (1.0-2.1) 09/07/17 09/07/17 Range/Units 17:39 11:30 WBC (4.8-10.8) K/uL RBC (3.80-5.20) Mil/uL Hgb (11.0-16.0) g/dL Hct (34.0-47.0) % MCV (81.0-99.0) fL MCH (27.0-31.0) pg MCHC (33.0-37.0) g/dL RDW (11.5-14.5) % Plt Count (130-400) K/uL MPV (7.2-11.7) fL Neut % (Auto) (50.0-75.0) % Lymph % (Auto) (20.0-40.0) % [place] % (Auto) (0.0-10.0) % Eos % (Auto) (0.0-4.0) % Baso % (Auto) (0.0-2.0) % Neut # (Auto) (1.8-7.0) K/uL Lymph # (Auto) (1.0-4.3) K/uL [place] # (Auto) (0.0-0.8) K/uL Eos # (Auto) (0.0-0.7) K/uL Baso # (Auto) (0.0-0.2) K/uL Neutrophils % (Manual) (50-75) % Band Neutrophils % (0-2) % Lymphocytes % (Manual) (20-40) % Monocytes % (Manual) (0-10) % Nucleated RBC % (0-0) % Toxic Granulation Platelet Estimate (NORMAL) Large Platelets Giant Platelets Polychromasia Hypochromasia (manual) Anisocytosis (manual) Macrocytosis (manual) Target Cells APTT (21-34) SECONDS Puncture Site pCO2 (35-45) mm/Hg pO2 (80-100) mm/Hg HCO3 (21-28) mmol/L ABG pH (7.35-7.45) ABG Total CO2 (22-28) mmol/L ABG O2 Saturation (95-98) % ABG Base Excess (-2.0-3.0) mmol/L ABG Hemoglobin (11.7-17.4) g/dL ABG Carboxyhemoglobin (0.5-1.5) % POC ABG HHb (Measured) (0.0-5.0) % ABG Methemoglobin (0.0-3.0) % Christian Test A-a O2 Difference mm/Hg Respiratory Index Hgb O2 Saturation (95.0-98.0) % Vent Mode Mechanical Rate FiO2 % Tidal Volume PEEP Sodium (132-148) mmol/L Potassium (3.6-5.2) mmol/L Chloride (98-107) mmol/L Carbon Dioxide (22-30) mmol/L Anion Gap (10-20) BUN (7-17) mg/dL Creatinine (0.7-1.2) mg/dL Est GFR ( Amer) Est GFR (Non-Af Amer) POC Glucose (mg/dL) 261 H 247 H (65-110) mg/dL Random Glucose (65-105) mg/dL Calcium (8.6-10.4) mg/dl Total Bilirubin (0.2-1.3) mg/dL AST (14-36) U/L ALT (9-52) U/L Alkaline Phosphatase (38-126) U/L Total Protein (6.3-8.3) g/dL Albumin (3.5-5.0) g/dL Globulin (2.2-3.9) gm/dL Albumin/Globulin Ratio (1.0-2.1) Laboratory Results - last 24 hr 09/07/17 09/07/17 09/07/17 11:30 17:39 23:25 WBC RBC Hgb Hct MCV MCH MCHC RDW Plt Count MPV Neut % (Auto) Lymph % (Auto) [place]ides % (Auto) Eos % (Auto) Baso % (Auto) Neut # (Auto) Lymph # (Auto) [place] # (Auto) Eos # (Auto) Baso # (Auto) Neutrophils % (Manual) Band Neutrophils % Lymphocytes % (Manual) Monocytes % (Manual) Nucleated RBC % Toxic Granulation Platelet Estimate Large Platelets Giant Platelets Polychromasia Hypochromasia (manual) Anisocytosis (manual) Macrocytosis (manual) Target Cells APTT Puncture Site pCO2 pO2 HCO3 ABG pH ABG Total CO2 ABG O2 Saturation ABG Base Excess ABG Hemoglobin ABG Carboxyhemoglobin POC ABG HHb (Measured) ABG Methemoglobin Christian Test A-a O2 Difference Respiratory Index Hgb O2 Saturation Vent Mode Mechanical Rate FiO2 Tidal Volume PEEP Sodium Potassium Chloride Carbon Dioxide Anion Gap BUN Creatinine Est GFR ( Amer) Est GFR (Non-Af Amer) POC Glucose (mg/dL) 247 H 261 H 230 H Random Glucose Calcium Total Bilirubin AST ALT Alkaline Phosphatase Total Protein Albumin Globulin Albumin/Globulin Ratio 09/08/17 09/08/17 09/08/17 05:30 06:06 06:21 WBC RBC Hgb Hct MCV MCH MCHC RDW Plt Count MPV Neut % (Auto) Lymph % (Auto) [place] % (Auto) Eos % (Auto) Baso % (Auto) Neut # (Auto) Lymph # (Auto) [place] # (Auto) Eos # (Auto) Baso # (Auto) Neutrophils % (Manual) Band Neutrophils % Lymphocytes % (Manual) Monocytes % (Manual) Nucleated RBC % Toxic Granulation Platelet Estimate Large Platelets Giant Platelets Polychromasia Hypochromasia (manual) Anisocytosis (manual) Macrocytosis (manual) Target Cells APTT Puncture Site Rradial pCO2 28 L pO2 176 H HCO3 22.9 ABG pH 7.47 H ABG Total CO2 21.3 L ABG O2 Saturation 100.0 H ABG Base Excess -2.6 L ABG Hemoglobin 9.0 L ABG Carboxyhemoglobin 2.0 H POC ABG HHb (Measured) 0.0 ABG Methemoglobin 1.2 Christian Test Pos A-a O2 Difference 74.0 Respiratory Index 0.4 Hgb O2 Saturation 96.8 Vent Mode Prvc Mechanical Rate 16 FiO2 40.0 Tidal Volume 500 PEEP 5 Sodium 135 Potassium 4.6 Chloride 97 L Carbon Dioxide 23 Anion Gap 20 BUN 87 H Creatinine 5.2 H Est GFR ( Amer) 10 Est GFR (Non-Af Amer) 8 POC Glucose (mg/dL) 274 H Random Glucose 299 H Calcium 8.3 L Total Bilirubin 0.7 AST 57 H D ALT 502 H D Alkaline Phosphatase 216 H Total Protein 5.8 L Albumin 2.9 L Globulin 2.9 Albumin/Globulin Ratio 1.0 09/08/17 09/08/17 06:23 06:23 WBC 16.8 H RBC 3.16 L Hgb 8.7 L Hct 27.1 L MCV 85.8 MCH 27.7 MCHC 32.3 L RDW 17.0 H Plt Count 169 MPV 10.3 Neut % (Auto) 95.5 H Lymph % (Auto) 2.2 L [place] % (Auto) 2.2 Eos % (Auto) 0.0 Baso % (Auto) 0.1 Neut # (Auto) 16.0 H Lymph # (Auto) 0.4 L [place] # (Auto) 0.4 Eos # (Auto) 0.0 Baso # (Auto) 0.0 Neutrophils % (Manual) 93 H Band Neutrophils % 3 H Lymphocytes % (Manual) 2 L Monocytes % (Manual) 2 Nucleated RBC % 2 H Toxic Granulation Present Platelet Estimate Normal Large Platelets Present Giant Platelets Present Polychromasia Slight Hypochromasia (manual) Slight Anisocytosis (manual) Slight Macrocytosis (manual) Slight Target Cells Slight APTT 77 H Puncture Site pCO2 pO2 HCO3 ABG pH ABG Total CO2 ABG O2 Saturation ABG Base Excess ABG Hemoglobin ABG Carboxyhemoglobin POC ABG HHb (Measured) ABG Methemoglobin Christian Test A-a O2 Difference Respiratory Index Hgb O2 Saturation Vent Mode Mechanical Rate FiO2 Tidal Volume PEEP Sodium Potassium Chloride Carbon Dioxide Anion Gap BUN Creatinine Est GFR ( Amer) Est GFR (Non-Af Amer) POC Glucose (mg/dL) Random Glucose Calcium Total Bilirubin AST ALT Alkaline Phosphatase Total Protein Albumin Globulin Albumin/Globulin Ratio Fingerstick Blood Sugar Results: 274
--- NOTE | 2017-09-08 17:35 | CP.PCM.PN ---
Subjective - Date & Time of Evaluation Date of Evaluation: 09/08/17 Time of Evaluation: 17:35 - Subjective Subjective: Nephrology Consultation: Assessment: critical CKD stage 5 (N18.5) with hyperkalemia, acidosis now has ESRD on HD via [facility] pulm edema, CHF, NSTEMI, pleural effusions, pneumonia AMS, hyperglycemia s/p cardiac arrest, shock liver, A fib Diabetic chronic Kidney Disease (E11.22) Hypertensive Chronic Kidney Disease (I12.9) Anemia (D64.9), Hyperphosphatemia (E83.39), Secondary Hyperparathyroidism (E21.1 ), HTN (I12.9), vit D insuff, hx of colon CA, TIAs Plan HD saturday as ordered. no acute need today maintain hemodynamic stable. Patient not on ACEI/ARB due to low BP. off midodrine started iron supplements, MVI, epogen with HD, and zemplar 2 mcg with HD. d/c oral vit d vasc surgery has evaluated. ID and cardiology following KDUR supplementation as needed Dose meds/antibiotics for ESRD/HD status. Avoid fleets enema/magnesium based laxatives. Avoid nephrotoxins/NSAIDs Glycemic control Further work up/management as per primary team Thanks for allowing me to participate in care of your patient. Will follow patient with you. Please call if any Qs. Dr Edson Norton Office: [phone] Chief Complaint; unable to obtain reason for consult: CKD management source of Info: EMR HPI: Pt is a 76 F with hx of diabetes Mellitus ( years), hypertension (years), CHF, TIA, Colon CA, CKD stage 4/5, has matured AVG in left arm presented with complaints of AMS and hyperglycemia as brought by family. now has elevated trop 100, hyperkalemia, AMS and elevated sugar, pulm edema. renal consult for CKD management. pt with AMS unable to provide any hx. she had received medical management for hyperkalemia. ROS: unable to obtain Physical Examination: General Appearance: ill appearing,intubated Vitals reviewed and noted as below Head; Atraumatic, normocephalic ENT: intubated EYES: PERRLA Neck; supple no lymphadenopathy, no thyromegaly or bruit Lungs: Normal respiratory rate/effort. Breath sounds bilateral clear, she is mechanically ventilated Heart: Normal rate. s1s2 normal. No rub or gallop. Extremities: no edema. No varicose veins. chronic hyperpigmented changes in legs Neurological: Patient is awake follows commands Skin: Warm and dry. Normal turgor. No rash. Palpitation: Normal elasticity for age Abdomen: Abdomen is soft. Bowel sounds +. There is no abdominal tenderness, no guarding/rigidity no organomegaly Psych: unable MSK: no joint tenderness or swelling. Digits and nails normal, no deformity : kidney or bladder not palpable Access: Left AVG without bruit. has left IJ shiley Labs/imaging reviewed. Past medical history, past surgical history, family history, social history, allergy reviewed and noted as below Family hx: no hx of CKD. Rest non-contributory Objective - Vital Signs/Intake and Output Vital Signs (last 24 hours): Temp Pulse Resp BP Pulse Ox 97.7 F 93 H 16 124/67 100 09/08/17 17:00 09/08/17 17:00 09/08/17 17:00 09/08/17 16:39 09/08/17 17:00 Intake and Output: 09/08/17 09/08/17 06:59 18:59 Intake Total 585 Output Total 0 Balance 585 - Medications Medications: Current Medications Albuterol/Ipratropium (Duoneb 3 Mg/0.5 Mg (3 Ml) Ud) 3 ml INH RQ4 [facility] Last Admin: 09/08/17 16:16 Dose: 3 ml Aspirin (Aspirin Chewable) 81 mg PO DAILY [facility] Last Admin: 09/08/17 09:41 Dose: 81 mg Epoetin Alan (Procrit) 8,000 unit IV MWF [facility] Last Admin: 09/06/17 11:19 Dose: 8,000 unit Ferrous Gluconate (Fergon) 324 mg PO TID [facility] Last Admin: 09/08/17 13:40 Dose: 324 mg Aztreonam 1 gm/ Sodium (Chloride) 100 mls @ 100 mls/hr IVPB Q12H [facility] Last Admin: 09/08/17 13:40 Dose: 100 mls/hr Heparin Sodium/Sodium Chloride (Heparin 58232 Units/250ml 1/2 Normal Saline) 25 ,000 units in 250 mls @ 10 mls/hr IV .Q24H PRN; Protocol PRN Reason: ADJUST RATE PER PROTOCOL Last Admin: 09/07/17 20:30 Dose: 1,000 units/hr, 10 mls/hr Metronidazole (Flagyl) 500 mg in 100 mls @ 100 mls/hr IVPB Q8 [facility] Last Admin: 09/08/17 13:40 Dose: 100 mls/hr Insulin Aspart (Novolog) 0 unit SC Q6 [facility] PRN Reason: Protocol Last Admin: 09/08/17 12:41 Dose: 6 unit Insulin Glargine (Lantus) 5 unit SC HS [facility] Last Admin: 09/07/17 22:15 Dose: 5 u Methylprednisolone (Solu-Medrol) 40 mg IVP DAILY [facility] Stop: 09/12/17 10:01 Metoprolol Tartrate (Lopressor) 25 mg PO BID [facility] Last Admin: 09/08/17 09:41 Dose: 25 mg Pantoprazole Sodium (Protonix Ec Tab) 40 mg PO DAILY [facility] Paricalcitol (Zemplar) 2 mcg IV MWF [facility] Rosuvastatin Calcium (Crestor) 5 mg PO HS [facility] Last Admin: 09/07/17 21:49 Dose: 5 mg Vitamin B Complex/Vit C/Folic Acid (Nephro-Kamron) 1 tab PO 0800 [facility] Last Admin: 09/08/17 09:41 Dose: 1 tab - Labs Labs: 09/08/17 06:23 09/08/17 06:21 PT 17.3 SECONDS (9.7-12.2) H 09/06/17 06:00 INR 1.5 09/06/17 06:00 APTT 77 SECONDS (21-34) H 09/08/17 06:23
[2017-09-08] MEDS: (Lantus) Insulin Glargine, Recombinant SC SCH (23:00)
[2017-09-08] MEDS: Heparin25000 units/250ml 1/2NS 25,000 UNITS/250 ML BAG IV PRN (23:50)
[2017-09-09] MEDS: Albuterol-Ipratrop 3 mg / 0.5 (3 ml) UD INH SCH ×6 (00:10→19:20)
[2017-09-09] MEDS: Aztreonam 1 GM in Sodium Chloride 0.9% 100 ML IVPB SCH ×2 (01:05→14:08)
[2017-09-09 04:44] LABS: ARTERIAL BLOOD GAS HCO3 22.4 mmol/L (21-28); ARTERIAL BLOOD GAS HEMOGLOBIN 9.1 g/dL (11.7-17.4); ARTERIAL BLOOD GAS O2 SAT 91.8 % (95-98); ARTERIAL BLOOD GAS PCO2 30 mm/Hg (35-45); ARTERIAL BLOOD GAS PH 7.44 (7.35-7.45); ARTERIAL BLOOD GAS PO2 55 mm/Hg (80-100); ARTERIAL BLOOD GAS TCO2 21.3 mmol/L (22-28)
[2017-09-09] MEDS: metroNIDAZOLE IV 500 mg/100 ml 500 MG/100 ML BAG IVPB SCH ×3 (05:00→21:19)
[2017-09-09] MEDS: (Novolog) Insulin Aspart, Recombinant 100 u/ml 10 ml vial SC SCH ×4 (05:15→18:11)
[2017-09-09 06:35] LABS: BASO % 0.2 % (0.0-2.0); HEMOGLOBIN 8.5 g/dL (11.0-16.0); LYMPH # 0.5 K/uL (1.0-4.3); LYMPH % 2.6 % (20.0-40.0); MEAN CELL VOLUME 85.2 fL (81.0-99.0); MEAN CORPUSCULAR HGB CONC 32.9 g/dL (33.0-37.0); MEAN PLATELET VOLUME 10.4 fL (7.2-11.7); MONO # 0.6 K/uL (0.0-0.8); NEUT # 18.2 K/uL (1.8-7.0); NEUT % 94.2 % (50.0-75.0); NRBC % 0.3 % (0.0-2.0); PLATELET COUNT 178 K/uL (130-400); RBC 3.03 Mil/uL (3.80-5.20); RED CELL DISTRIBUTION WIDTH 16.7 % (11.5-14.5); WHITE BLOOD COUNT 19.3 K/uL (4.8-10.8)
[2017-09-09 06:55] LABS: ALB/GLOB RATIO 0.9 (1.0-2.1); ALBUMIN 2.7 g/dL (3.5-5.0); CALCIUM 8.3 mg/dl (8.6-10.4)
--- NOTE | 2017-09-09 08:32 | RAD ---
Chest x-ray single frontal view History: Intubated. Comparison: 09/08/2017 Findings: Lines and tubes stable position. Moderate venous congestion. Moderate loculated left pleural effusion with consolidative changes in the left mid to lower lung zone. Cardiomegaly. Calcification at the aortic knob. Degenerative changes in the spine and shoulders. Impression: Lines and tubes stable position. Moderate venous congestion. Moderate loculated left pleural effusion with consolidative changes in the left mid to lower lung zone. Cardiomegaly. Calcification at the aortic knob.
--- NOTE | 2017-09-09 08:50 | CP.PCM.PN ---
Subjective - Date & Time of Evaluation Date of Evaluation: 09/09/17 Time of Evaluation: 08:47 - Subjective Subjective: Seen and examined.Patient is awake and responsive and follow commands Respiratory therapist at bedside. She was on a/c last night. Jus changed to CPAP ,tolerating . chest x ray this morning looks better. Objective - Vital Signs/Intake and Output Vital Signs (last 24 hours): Temp Pulse Resp BP Pulse Ox 98.3 F 88 16 118/70 100 09/09/17 05:00 09/09/17 07:00 09/09/17 07:00 09/09/17 06:39 09/09/17 07:00 Intake and Output: 09/09/17 09/09/17 06:59 18:59 Intake Total 970 135 Output Total 50 0 Balance 920 135 - Medications Medications: Current Medications Albuterol/Ipratropium (Duoneb 3 Mg/0.5 Mg (3 Ml) Ud) 3 ml INH RQ4 [facility] Last Admin: 09/09/17 07:45 Dose: 3 ml Aspirin (Aspirin Chewable) 81 mg PO DAILY [facility] Last Admin: 09/08/17 09:41 Dose: 81 mg Epoetin Alan (Procrit) 8,000 unit IV MWF [facility] Last Admin: 09/06/17 11:19 Dose: 8,000 unit Ferrous Gluconate (Fergon) 324 mg PO TID [facility] Last Admin: 09/08/17 17:52 Dose: 324 mg Aztreonam 1 gm/ Sodium (Chloride) 100 mls @ 100 mls/hr IVPB Q12H [facility] Last Admin: 09/09/17 01:05 Dose: 100 mls/hr Heparin Sodium/Sodium Chloride (Heparin 59162 Units/250ml 1/2 Normal Saline) 25 ,000 units in 250 mls @ 10 mls/hr IV .Q24H PRN; Protocol PRN Reason: ADJUST RATE PER PROTOCOL Last Admin: 09/08/17 23:50 Dose: 1,000 units/hr, 10 mls/hr Metronidazole (Flagyl) 500 mg in 100 mls @ 100 mls/hr IVPB Q8 [facility] Last Admin: 09/09/17 05:00 Dose: 100 mls/hr Insulin Aspart (Novolog) 0 unit SC Q6 [facility] PRN Reason: Protocol Last Admin: 09/09/17 05:15 Dose: 8 unit Insulin Glargine (Lantus) 5 unit SC [facility] Last Admin: 09/08/17 23:00 Dose: 5 u Methylprednisolone (Solu-Medrol) 40 mg IVP DAILY [facility] Stop: 09/12/17 10:01 Metoprolol Tartrate (Lopressor) 25 mg PO BID [facility] Last Admin: 09/08/17 17:52 Dose: 25 mg Pantoprazole Sodium (Protonix Ec Tab) 40 mg PO DAILY [facility] Paricalcitol (Zemplar) 2 mcg IV MWF [facility] Rosuvastatin Calcium (Crestor) 5 mg PO [facility] Last Admin: 09/08/17 21:24 Dose: 5 mg Vitamin B Complex/Vit C/Folic Acid (Nephro-Kamron) 1 tab PO 0800 [facility] Last Admin: 09/08/17 09:41 Dose: 1 tab - Labs Labs: 09/09/17 06:27 09/09/17 06:27 PT 17.3 SECONDS (9.7-12.2) H 09/06/17 06:00 INR 1.5 09/06/17 06:00 APTT 83 SECONDS (21-34) H D 09/09/17 06:27 - Constitutional Appears: No Acute Distress - Head Exam Head Exam: NORMAL INSPECTION (intubated) - Eye Exam Eye Exam: Normal appearance - ENT Exam ENT Exam: Mucous Membranes Moist - Neck Exam Neck Exam: absent: Full ROM (intubated) - Respiratory Exam Respiratory Exam: Clear to Ausculation Bilateral - Cardiovascular Exam Cardiovascular Exam: Irregular Rhythm - GI/Abdominal Exam GI & Abdominal Exam: Soft, Normal Bowel Sounds - Extremities Exam Extremities Exam: Pedal Edema - Neurological Exam Neurological Exam: Awake. absent: Oriented x3 (intubated,awake and responsive) - Psychiatric Exam Psychiatric exam: Normal Mood - Skin Skin Exam: Dry Assessment and Plan - Assessment and Plan (Free Text) Assessment: This is a 76 year old female with a history of ESRD now getting HD, CHF, DM, HTN , hypercholesterolemia, and some sort of ID years before, repeated TIAs, and colon CA. She was brought in by family for altered mental status and ultimately found to have severe metabolic acidosis as well as a extremely elevated troponins. Plan: 1 Acute NSTEMI , Asystol ,CPR / Sustained VT 09/09: Afib rate is controlled on heparin drip. Weaning trial ,On Cpap 09/07: I had long conversation with POA Annmarie Stauffer and per the POA the patient indicated to them no cardiac catherization. I explained to POA that considering the weaknened heart function it may prove very difficult to successfully extubate patient. At this moment she remains on heparin ggt, getting HD, and also weaning trials 09/06: Cardiac catherization was canceled 09/05: Potentially cardiac catherization shortly from now. Remains on heparin ggt 09/04: atrial fibrillation appearance on telemetry, check a new 12 lead EKG. Remains on heparin ggt. 09/03: Remains in heparin ggt, statin, ASA. Hopefully at some point can have cardiac catherization. 09/02: Now off pressor medications. She remains on amiodarone Echo EF 15 to 20%. Currently on a heparin ggt, ASA, Statin. 2 Respiratory failure, intubation 09/09 Weaning trial.chest xray looks better. Just switched to CPAP 09/08: She may end up needing a trach and or PEG if she is not able to be succefully extubated 09/07: Again became tachycardic at night and was switched from PS/CPAP settings back to PRVC. Family is aware that it will be difficult to extubate 09/06: Back on PRVC after having tachy cardia 09/05: Has tolerated CPAP settings throughout the night 09/04: Yesterday afternoon she was moved back to PRVC 09/03: Now changed to CPAP/PS settings. The chest XRAYs look better this morning following HD last night. 3 Atrial Fibrillation 09/09-Remains on heparin,rate controlled 09/07: remains in atrial fibrillation. On heparin and loppressor BID 09/06: Continue on heparin ggt, Lopressor increased to 25 BID 4 Acute renal failure on chronic renal disease/Now ESRD on HD 09/09-HD today 09/05: Toleratated HD well yesterday 09/04: Currently MWF HD 09/03: Underwent HD yesterday and tolerated it well. CXRAY looks better 09/02/2017: She has had one session of HD so far. Mercedes another session today 5 Leukocytosis concerning for sepsis 09/09 on Aztreonam and flagyl.Has leukocytosis/on steroid.follow ID 09/03: Today decreased WBC. Cultures negative so far 09/02/2017: The elevated WBC maybe stress related. She remains on abx Aztreonam IV and Flagyl IV 6 Acute systolic heart failure 09/03: Monitor chest XRAYs. ECHO shows EF 15 to 20% 7 Pleural effusion 09/05: Still present on CXRAYs. Continue to moniotp 09/03: Improving CXRAYs 09/02/2017: Pleural effusions minimal at this time. Continue to monitor 8 Hyperglycemia and uncontrolled DM 09/03: Reccent accucheks 130s, 130, 160 9 Anemia of chronic disease, CKD 09/03: Yesterday had 1 unit of PRBC given during HD, receiving EPO 10.DVT prophylaxis on heparin and GI prophylaxis on protonix
[2017-09-09 08:59] LABS: LYMPHOCYTE 2 % (20-40); MONOCYTE 1 % (0-10); NEUTROPHIL 97 % (50-75); PLATELET ESTIMATE NORMAL (NORMAL); TOTAL CELLS COUNTED 100
[2017-09-09 09:00] LABS: ANISOCYTOSIS SLIGHT; BURR CELLS SLIGHT; HYPOCHROMIC SLIGHT; POLYCHROMIC SLIGHT; TARGET CELLS SLIGHT
[2017-09-09 09:01] LABS: OVALOCYTES SLIGHT; SCHISTOCYTES SLIGHT
--- NOTE | 2017-09-09 09:22 | CP.PCM.PCO ---
Physician Communication Note - Physician Communication Note Physician Communication Note: Family did not commit to scheduled family meeting on Saturday. Will try today
[2017-09-09] MEDS ORDERED: Pantoprazole 40 mg EC Tab PO SCH (10:00)
[2017-09-09] MEDS: Epoetin Alfa 10,000 unit/ml Dialysis IV SCH (10:28)
[2017-09-09] MEDS: Paricalcitol 2 mcg/ml Inj IV SCH (10:28)
--- NOTE | 2017-09-09 11:56 | CP.CCUPN ---
<Nicole Basurto - Last Filed: 09/09/17 14:45> CCU Subjective - Physician Review Subjective (Free Text): 09/09/17 11:56 Patient seen and examined at bedside. Per nursing no acute events overnight. Patient is intubated. Responds to verbal stimuli and following commands. ROS not obtained. CCU Objective - Vital Signs / Intake & Output Vital Signs (Last 4 hours): Vital Signs Temp Pulse Pulse Resp BP BP Pulse Ox 09/09/17 11:22 110 H 16 102/57 L 98 09/09/17 11:07 115 H 19 105/57 L 100 09/09/17 11:05 116/56 L 09/09/17 11:00 100 H 16 100 09/09/17 10:52 96 H 16 116/56 L 100 09/09/17 10:37 104 H 18 111/58 L 100 09/09/17 10:35 111/58 L 09/09/17 10:22 94 H 17 114/51 L 100 09/09/17 10:20 114/51 L 09/09/17 10:06 115 H 17 119/60 09/09/17 10:05 119/60 09/09/17 10:00 106 H 18 100 09/09/17 09:51 111 H 18 117/61 100 09/09/17 09:50 117/61 09/09/17 09:36 111 H 15 119/59 L 100 09/09/17 09:35 97.4 F L 75 18 119/59 L 100 09/09/17 09:30 97.4 F L 75 18 116/52 L 09/09/17 09:00 96 H 17 100 09/09/17 08:39 103 H 16 116/62 100 09/09/17 08:00 97.5 F L Intake and Output (Last 8hrs): Intake & Output 09/08/17 09/09/17 09/09/17 22:59 06:59 14:59 Intake Total 730 480 265 Output Total 0 50 0 Balance 730 430 265 Weight 78 kg Intake: IV 250 Intake, IV Amount 280 280 140 Left Internal Jugular 80 80 40 Side-Port Right Proximal Port 200 200 100 Internal Jugular Tube Feeding 200 200 125 Output: Urine 0 50 0 Urine, Voided 0 50 0 Stool 0 0 Other: # Voids Urine, Voided 1 - Physical Exam Head: Positive for: Atraumatic, Normocephalic. Negative for: Tenderness, Contusion, Swelling Pupils: Positive for: PERRL. Negative for: Sluggish, Non-Reactive Extroacular Muscles: Positive for: EOMI Conjunctiva: Positive for: Normal Mouth: Positive for: Dry Pharnyx: Positive for: Normal Nose (External): Positive for: Atraumatic Neck: Positive for: Trachea Midline, Other (R IJ central line ). Negative for: JVD Respiratory/Chest: Positive for: Good Air Exchange, Accessory Muscle Use, Decreased Breath Sounds (on bilateral bases). Negative for: Wheezes Cardiovascular: Positive for: Tachycardic Abdomen: Positive for: Normal Bowel Sounds. Negative for: Peritoneal Signs Upper Extremity: Negative for: Cyanosis, Edema Lower Extremity: Negative for: Edema Psychiatric: Positive for: Alert - Medications Active Medications: Active Medications Generic Name Dose Route Start Last Admin Trade Name Freq PRN Reason Stop Dose Admin Albuterol/Ipratropium 3 ml 09/04/17 16:00 09/09/17 11:50 Duoneb 3 Mg/0.5 Mg (3 Ml) Ud INH Not Given RQ4 [facility] Aspirin 81 mg 08/30/17 10:00 09/08/17 09:41 Aspirin Chewable PO 81 mg DAILY [facility] Administration Epoetin Alan 10,000 unit 09/09/17 10:30 09/09/17 10:28 Procrit IV 10,000 unit MWF [facility] Administration Ferrous Gluconate 324 mg 08/31/17 10:00 09/08/17 17:52 Fergon PO 324 mg TID [facility] Administration Heparin Sodium (Porcine) 5,000 units 09/09/17 14:00 Heparin SC Q8 [facility] Aztreonam 1 gm/ Sodium 100 mls @ 100 mls/hr 09/06/17 01:30 09/09/17 01:05 Chloride IVPB 100 mls/hr Q12H [facility] Administration Metronidazole 500 mg in 100 mls @ 100 mls/hr 09/08/17 14:00 09/09/17 05:00 Flagyl IVPB 100 mls/hr Q8 [facility] Administration Insulin Aspart 0 unit 09/01/17 11:49 09/09/17 05:15 Novolog SC 8 unit Q6 [facility] Administration Protocol Insulin Glargine 5 unit 09/03/17 22:00 09/08/17 23:00 Lantus SC 5 u HS [facility] Administration Methylprednisolone 40 mg 09/09/17 10:00 Solu-Medrol IVP 09/12/17 10:01 DAILY [facility] Metoprolol Tartrate 25 mg 09/06/17 08:00 09/08/17 17:52 Lopressor PO 25 mg BID [facility] Administration Pantoprazole Sodium 40 mg 09/10/17 06:00 Protonix Susp NG 0600 [facility] Paricalcitol 2 mcg 09/09/17 09:00 09/09/17 10:28 Zemplar IV 2 mcg MWF [facility] Administration Rosuvastatin Calcium 5 mg 08/30/17 01:15 09/08/17 21:24 Crestor PO 5 mg HS [facility] Administration Senna 8.8 mg 09/09/17 12:00 Senokot Syrup NG DAILY [facility] Vitamin B Complex/Vit C/Folic Acid 1 tab 08/31/17 08:00 09/08/17 09:41 Nephro-Kamron PO 1 tab 0800 [facility] Administration - Patient Studies Lab Studies: Lab Studies 09/09/17 09/09/17 09/09/17 Range/Units 11:41 06:27 06:27 WBC (4.8-10.8) K/uL RBC (3.80-5.20) Mil/uL Hgb (11.0-16.0) g/dL Hct (34.0-47.0) % MCV (81.0-99.0) fL MCH (27.0-31.0) pg MCHC (33.0-37.0) g/dL RDW (11.5-14.5) % Plt Count (130-400) K/uL MPV (7.2-11.7) fL Neut % (Auto) (50.0-75.0) % Lymph % (Auto) (20.0-40.0) % [place] % (Auto) (0.0-10.0) % Eos % (Auto) (0.0-4.0) % Baso % (Auto) (0.0-2.0) % Neut # (Auto) (1.8-7.0) K/uL Lymph # (Auto) (1.0-4.3) K/uL [place] # (Auto) (0.0-0.8) K/uL Eos # (Auto) (0.0-0.7) K/uL Baso # (Auto) (0.0-0.2) K/uL Neutrophils % (Manual) (50-75) % Lymphocytes % (Manual) (20-40) % Monocytes % (Manual) (0-10) % Platelet Estimate (NORMAL) Polychromasia Hypochromasia (manual) Anisocytosis (manual) Target Cells Ovalocytes Elías Cells Schistocytes APTT 83 H D (21-34) SECONDS Puncture Site pCO2 (35-45) mm/Hg pO2 (80-100) mm/Hg HCO3 (21-28) mmol/L ABG pH (7.35-7.45) ABG Total CO2 (22-28) mmol/L ABG O2 Saturation (95-98) % ABG Base Excess (-2.0-3.0) mmol/L ABG Hemoglobin (11.7-17.4) g/dL ABG Carboxyhemoglobin (0.5-1.5) % POC ABG HHb (Measured) (0.0-5.0) % ABG Methemoglobin (0.0-3.0) % Christian Test A-a O2 Difference mm/Hg Respiratory Index Hgb O2 Saturation (95.0-98.0) % Vent Mode Mechanical Rate FiO2 % Tidal Volume PEEP Sodium 136 (132-148) mmol/L Potassium 4.3 (3.6-5.2) mmol/L Chloride 97 L (98-107) mmol/L Carbon Dioxide 22 (22-30) mmol/L Anion Gap 21 H (10-20) BUN 109 H* D (7-17) mg/dL Creatinine 5.9 H (0.7-1.2) mg/dL Est GFR ( Amer) 8 Est GFR (Non-Af Amer) 7 POC Glucose (mg/dL) 120 H (65-110) mg/dL Random Glucose 289 H (65-105) mg/dL Calcium 8.3 L (8.6-10.4) mg/dl Phosphorus 6.2 H (2.5-4.5) mg/dL Magnesium 2.2 (1.6-2.3) mg/dL Total Bilirubin 0.7 (0.2-1.3) mg/dL AST 49 H (14-36) U/L ALT 382 H D (9-52) U/L Alkaline Phosphatase 204 H (38-126) U/L Total Protein 5.6 L (6.3-8.3) g/dL Albumin 2.7 L (3.5-5.0) g/dL Globulin 2.9 (2.2-3.9) gm/dL Albumin/Globulin Ratio 0.9 L (1.0-2.1) 09/09/17 09/09/17 09/09/17 Range/Units 06:27 05:05 04:30 WBC 19.3 H (4.8-10.8) K/uL RBC 3.03 L (3.80-5.20) Mil/uL Hgb 8.5 L (11.0-16.0) g/dL Hct 25.8 L (34.0-47.0) % MCV 85.2 (81.0-99.0) fL MCH 28.0 (27.0-31.0) pg MCHC 32.9 L (33.0-37.0) g/dL RDW 16.7 H (11.5-14.5) % Plt Count 178 (130-400) K/uL MPV 10.4 (7.2-11.7) fL Neut % (Auto) 94.2 H (50.0-75.0) % Lymph % (Auto) 2.6 L (20.0-40.0) % [place] % (Auto) 3.0 (0.0-10.0) % Eos % (Auto) 0.0 (0.0-4.0) % Baso % (Auto) 0.2 (0.0-2.0) % Neut # (Auto) 18.2 H (1.8-7.0) K/uL Lymph # (Auto) 0.5 L (1.0-4.3) K/uL [place] # (Auto) 0.6 (0.0-0.8) K/uL Eos # (Auto) 0.0 (0.0-0.7) K/uL Baso # (Auto) 0.0 (0.0-0.2) K/uL Neutrophils % (Manual) 97 H (50-75) % Lymphocytes % (Manual) 2 L (20-40) % Monocytes % (Manual) 1 (0-10) % Platelet Estimate Normal (NORMAL) Polychromasia Slight Hypochromasia (manual) Slight Anisocytosis (manual) Slight Target Cells Slight Ovalocytes Slight Elías Cells Slight Schistocytes Slight APTT (21-34) SECONDS Puncture Site Rb pCO2 30 L (35-45) mm/Hg pO2 55 L (80-100) mm/Hg HCO3 22.4 (21-28) mmol/L ABG pH 7.44 (7.35-7.45) ABG Total CO2 21.3 L (22-28) mmol/L ABG O2 Saturation 91.8 L (95-98) % ABG Base Excess -3.1 L (-2.0-3.0) mmol/L ABG Hemoglobin 9.1 L (11.7-17.4) g/dL ABG Carboxyhemoglobin 2.3 H (0.5-1.5) % POC ABG HHb (Measured) 8.0 H (0.0-5.0) % ABG Methemoglobin 0.7 (0.0-3.0) % Christian Test Na A-a O2 Difference 193.0 mm/Hg Respiratory Index 3.5 Hgb O2 Saturation 89.0 L (95.0-98.0) % Vent Mode Prvc Mechanical Rate 16 FiO2 40.0 % Tidal Volume 500 PEEP 5 Sodium (132-148) mmol/L Potassium (3.6-5.2) mmol/L Chloride (98-107) mmol/L Carbon Dioxide (22-30) mmol/L Anion Gap (10-20) BUN (7-17) mg/dL Creatinine (0.7-1.2) mg/dL Est GFR ( Amer) Est GFR (Non-Af Amer) POC Glucose (mg/dL) 347 H (65-110) mg/dL Random Glucose (65-105) mg/dL Calcium (8.6-10.4) mg/dl Phosphorus (2.5-4.5) mg/dL Magnesium (1.6-2.3) mg/dL Total Bilirubin (0.2-1.3) mg/dL AST (14-36) U/L ALT (9-52) U/L Alkaline Phosphatase (38-126) U/L Total Protein (6.3-8.3) g/dL Albumin (3.5-5.0) g/dL Globulin (2.2-3.9) gm/dL Albumin/Globulin Ratio (1.0-2.1) 09/08/17 09/08/17 Range/Units 23:39 18:04 WBC (4.8-10.8) K/uL RBC (3.80-5.20) Mil/uL Hgb (11.0-16.0) g/dL Hct (34.0-47.0) % MCV (81.0-99.0) fL MCH (27.0-31.0) pg MCHC (33.0-37.0) g/dL RDW (11.5-14.5) % Plt Count (130-400) K/uL MPV (7.2-11.7) fL Neut % (Auto) (50.0-75.0) % Lymph % (Auto) (20.0-40.0) % [place] % (Auto) (0.0-10.0) % Eos % (Auto) (0.0-4.0) % Baso % (Auto) (0.0-2.0) % Neut # (Auto) (1.8-7.0) K/uL Lymph # (Auto) (1.0-4.3) K/uL [place] # (Auto) (0.0-0.8) K/uL Eos # (Auto) (0.0-0.7) K/uL Baso # (Auto) (0.0-0.2) K/uL Neutrophils % (Manual) (50-75) % Lymphocytes % (Manual) (20-40) % Monocytes % (Manual) (0-10) % Platelet Estimate (NORMAL) Polychromasia Hypochromasia (manual) Anisocytosis (manual) Target Cells Ovalocytes Elías Cells Schistocytes APTT (21-34) SECONDS Puncture Site pCO2 (35-45) mm/Hg pO2 (80-100) mm/Hg HCO3 (21-28) mmol/L ABG pH (7.35-7.45) ABG Total CO2 (22-28) mmol/L ABG O2 Saturation (95-98) % ABG Base Excess (-2.0-3.0) mmol/L ABG Hemoglobin (11.7-17.4) g/dL ABG Carboxyhemoglobin (0.5-1.5) % POC ABG HHb (Measured) (0.0-5.0) % ABG Methemoglobin (0.0-3.0) % Christian Test A-a O2 Difference mm/Hg Respiratory Index Hgb O2 Saturation (95.0-98.0) % Vent Mode Mechanical Rate FiO2 % Tidal Volume PEEP Sodium (132-148) mmol/L Potassium (3.6-5.2) mmol/L Chloride (98-107) mmol/L Carbon Dioxide (22-30) mmol/L Anion Gap (10-20) BUN (7-17) mg/dL Creatinine (0.7-1.2) mg/dL Est GFR ( Amer) Est GFR (Non-Af Amer) POC Glucose (mg/dL) 250 H 262 H (65-110) mg/dL Random Glucose (65-105) mg/dL Calcium (8.6-10.4) mg/dl Phosphorus (2.5-4.5) mg/dL Magnesium (1.6-2.3) mg/dL Total Bilirubin (0.2-1.3) mg/dL AST (14-36) U/L ALT (9-52) U/L Alkaline Phosphatase (38-126) U/L Total Protein (6.3-8.3) g/dL Albumin (3.5-5.0) g/dL Globulin (2.2-3.9) gm/dL Albumin/Globulin Ratio (1.0-2.1) Laboratory Results - last 24 hr 09/08/17 09/08/17 09/09/17 18:04 23:39 04:30 WBC RBC Hgb Hct MCV MCH MCHC RDW Plt Count MPV Neut % (Auto) Lymph % (Auto) [place] % (Auto) Eos % (Auto) Baso % (Auto) Neut # (Auto) Lymph # (Auto) [place] # (Auto) Eos # (Auto) Baso # (Auto) Neutrophils % (Manual) Lymphocytes % (Manual) Monocytes % (Manual) Platelet Estimate Polychromasia Hypochromasia (manual) Anisocytosis (manual) Target Cells Ovalocytes Elías Cells Schistocytes APTT Puncture Site Rb pCO2 30 L pO2 55 L HCO3 22.4 ABG pH 7.44 ABG Total CO2 21.3 L ABG O2 Saturation 91.8 L ABG Base Excess -3.1 L ABG Hemoglobin 9.1 L ABG Carboxyhemoglobin 2.3 H POC ABG HHb (Measured) 8.0 H ABG Methemoglobin 0.7 Christian Test Na A-a O2 Difference 193.0 Respiratory Index 3.5 Hgb O2 Saturation 89.0 L Vent Mode Prvc Mechanical Rate 16 FiO2 40.0 Tidal Volume 500 PEEP 5 Sodium Potassium Chloride Carbon Dioxide Anion Gap BUN Creatinine Est GFR ( Amer) Est GFR (Non-Af Amer) POC Glucose (mg/dL) 262 H 250 H Random Glucose Calcium Phosphorus Magnesium Total Bilirubin AST ALT Alkaline Phosphatase Total Protein Albumin Globulin Albumin/Globulin Ratio 09/09/17 09/09/17 09/09/17 05:05 06:27 06:27 WBC 19.3 H RBC 3.03 L Hgb 8.5 L Hct 25.8 L MCV 85.2 MCH 28.0 MCHC 32.9 L RDW 16.7 H Plt Count 178 MPV 10.4 Neut % (Auto) 94.2 H Lymph % (Auto) 2.6 L [place] % (Auto) 3.0 Eos % (Auto) 0.0 Baso % (Auto) 0.2 Neut # (Auto) 18.2 H Lymph # (Auto) 0.5 L [place] # (Auto) 0.6 Eos # (Auto) 0.0 Baso # (Auto) 0.0 Neutrophils % (Manual) 97 H Lymphocytes % (Manual) 2 L Monocytes % (Manual) 1 Platelet Estimate Normal Polychromasia Slight Hypochromasia (manual) Slight Anisocytosis (manual) Slight Target Cells Slight Ovalocytes Slight [place] Cells Slight Schistocytes Slight APTT Puncture Site pCO2 pO2 HCO3 ABG pH ABG Total CO2 ABG O2 Saturation ABG Base Excess ABG Hemoglobin ABG Carboxyhemoglobin POC ABG HHb (Measured) ABG Methemoglobin Christian Test A-a O2 Difference Respiratory Index Hgb O2 Saturation Vent Mode Mechanical Rate FiO2 Tidal Volume PEEP Sodium 136 Potassium 4.3 Chloride 97 L Carbon Dioxide 22 Anion Gap 21 H BUN 109 H* D Creatinine 5.9 H Est GFR ( Amer) 8 Est GFR (Non-Af Amer) 7 POC Glucose (mg/dL) 347 H Random Glucose 289 H Calcium 8.3 L Phosphorus 6.2 H Magnesium 2.2 Total Bilirubin 0.7 AST 49 H ALT 382 H D Alkaline Phosphatase 204 H Total Protein 5.6 L Albumin 2.7 L Globulin 2.9 Albumin/Globulin Ratio 0.9 L 09/09/17 09/09/17 06:27 11:41 WBC RBC Hgb Hct MCV MCH MCHC RDW Plt Count MPV Neut % (Auto) Lymph % (Auto) [place] % (Auto) Eos % (Auto) Baso % (Auto) Neut # (Auto) Lymph # (Auto) [place] # (Auto) Eos # (Auto) Baso # (Auto) Neutrophils % (Manual) Lymphocytes % (Manual) Monocytes % (Manual) Platelet Estimate Polychromasia Hypochromasia (manual) Anisocytosis (manual) Target Cells Ovalocytes Elías Cells Schistocytes APTT 83 H D Puncture Site pCO2 pO2 HCO3 ABG pH ABG Total CO2 ABG O2 Saturation ABG Base Excess ABG Hemoglobin ABG Carboxyhemoglobin POC ABG HHb (Measured) ABG Methemoglobin Christian Test A-a O2 Difference Respiratory Index Hgb O2 Saturation Vent Mode Mechanical Rate FiO2 Tidal Volume PEEP Sodium Potassium Chloride Carbon Dioxide Anion Gap BUN Creatinine Est GFR ( Amer) Est GFR (Non-Af Amer) POC Glucose (mg/dL) 120 H Random Glucose Calcium Phosphorus Magnesium Total Bilirubin AST ALT Alkaline Phosphatase Total Protein Albumin Globulin Albumin/Globulin Ratio Fingerstick Blood Sugar Results: 347 Assessment/Plan - Assessment and Plan (Free Text) Plan: This is a 76 year old female with a history of ESRD on HD, CHF, DM, HTN, hypercholesterolemia, and some sort of [place] years before, repeated TIAs, and colon CA. She was brought in by family for altered mental status and ultimately found to have severe metabolic acidosis as well as a extremely elevated troponins. Neurology: -Patient is currently intubated -Will continue CPAP trial -For possible extubation today Cardiology: -NSTEMI -Family is currently refusing for intervention for coronary. -Will need to discuss goals of care with the family, palliative care on board -Heparin drip discontinued -Continue Crestor 20mg PO HS, Aspirin 81mg daily -Continue Metoprolol 25mg PO BID -Cardiology on consult, help appreciated Pulmonary: -Currently Intubated -Treating for Acute hypoxemic respiratory failure, respiratory acidosis from acute pulmonary edema and pneumonia -CXR: Moderate venous congestion. Moderate loculated pleural effusion with consolidative changes in the left mid to lower lung zone, cardiomegaly. -Solumedrol 40mg IVP daily Hematology: -Continue Ferrous sulfate 325mg PO TID GI: -Continue tube feeds -No BM for last few days -Sennakot daily and Ducolax suppository ordered -AST/ALT elevated likely secondary to shock liver, currently trending down -Will continue to monitor, avoid hepatotoxic agents Renal: -Continue Epoetin -Continue Hemodialysis as regularly scheduled (MWF) -Will reconsult vascular surgery, needs evaluation for AV shunt/Permacath -Nephrology on consult, f/u recommendations Endocrine: -History of diabetes mellitus -Continue Lantus 5 units SC HS -ISS, accuchecks Infectious Disease: -Antibiotics: Aztreonam 1gm Q12H, Flagyl 500mg Q8H -Leukocytosis 16.8 -> 19.3, on Solumedrol currently -Blood cultures have been negative -Infectious disease on consult, f/u recommendations GI/DVT ppx: -Heparin 5000 units Q8H SC -Protonix 40mg PO daily Plan discussed with Dr Ruiz <Jennifer Ruiz - Last Filed: 09/09/17 20:08> CCU Objective - Vital Signs / Intake & Output Vital Signs (Last 4 hours): Vital Signs Temp Pulse Resp BP Pulse Ox 09/09/17 20:00 97.6 F 119 H 22 99 09/09/17 19:59 104 H 20 87/50 L 100 09/09/17 19:23 89 25 H 95/50 L 09/09/17 19:00 100 H 24 100 09/09/17 18:23 112 H 9 L 109/52 L 100 09/09/17 18:00 104 H 24 100 09/09/17 17:23 110 H 25 H 106/60 100 09/09/17 17:00 102 H 24 100 09/09/17 16:23 107 H 26 H 118/52 L 100 Intake and Output (Last 8hrs): Intake & Output 09/09/17 09/09/17 09/09/17 06:59 14:59 22:59 Intake Total 480 365 300 Output Total 50 0 0 Balance 430 365 300 Weight 171 lb 15.369 oz Intake: Intake, IV Amount 280 240 300 Left Internal Jugular 80 40 Side-Port Right Proximal Port 200 200 300 Internal Jugular Tube Feeding 200 125 Output: Urine 50 0 0 Urine, Voided 50 0 0 Stool 0 0 Other: # Voids Urine, Voided 1 - Medications Active Medications: Active Medications Generic Name Dose Route Start Last Admin Trade Name Thiago PRN Reason Stop Dose Admin Albuterol/Ipratropium 3 ml 09/04/17 16:00 09/09/17 19:20 Duoneb 3 Mg/0.5 Mg (3 Ml) Ud INH 3 ml RQ4 [facility] Administration Aspirin 81 mg 08/30/17 10:00 09/09/17 13:55 Aspirin Chewable PO 81 mg DAILY [facility] Administration Epoetin Alan 10,000 unit 09/09/17 10:30 09/09/17 10:28 Procrit IV 10,[address] [facility] Ferrous Gluconate 324 mg 08/31/17 10:00 09/09/17 18:10 Fergon PO Not Given TID [facility] Heparin Sodium (Porcine) 5,000 units 09/09/17 14:00 09/09/17 14:08 Heparin SC 5,000 units Q8 [facility] Administration Aztreonam 1 gm/ Sodium 100 mls @ 100 mls/hr 09/06/17 01:30 09/09/17 14:08 Chloride IVPB 100 mls/hr Q12H [facility] Administration Metronidazole 500 mg in 100 mls @ 100 mls/hr 09/08/17 14:00 09/09/17 14:09 Flagyl IVPB 100 mls/hr Q8 [facility] Administration Vancomycin HCl 1 gm/ Sodium 200 mls @ 166.7 mls/hr 09/09/17 16:00 09/09/17 18 :12 Chloride IVPB 166.7 mls/hr [facility] Protocol Insulin Aspart 0 unit 09/01/17 11:49 09/09/17 18:11 Novolog SC Not Given Q6 [facility] Protocol Insulin Glargine 5 unit 09/03/17 22:00 09/08/17 23:00 Lantus SC 5 u HS [facility] Administration Methylprednisolone 40 mg 09/09/17 10:00 09/09/17 13:56 Solu-Medrol IVP 09/12/17 10:01 40 mg DAILY [facility] Administration Metoprolol Tartrate 25 mg 09/06/17 08:00 09/09/17 18:10 Lopressor PO Not Given BID [facility] Pantoprazole Sodium 40 mg 09/10/17 06:00 Protonix Susp NG 0600 [facility] Paricalcitol 2 mcg 09/09/17 09:00 09/09/17 10:28 Zemplar IV 2 mcg MWF [facility] Administration Rosuvastatin Calcium 5 mg 08/30/17 01:15 09/08/17 21:24 Crestor PO 5 mg HS [facility] Administration Sennosides 8.6 mg 09/10/17 10:00 Senokot Tab NG DAILY [facility] Vitamin B Complex/Vit C/Folic Acid 1 tab 08/31/17 08:00 09/09/17 14:08 Nephro-Kamron PO 1 tab 0800 [facility] Administration - Patient Studies Lab Studies: Lab Studies 09/09/17 09/09/17 09/09/17 Range/Units 17:39 11:41 06:27 WBC (4.8-10.8) K/uL RBC (3.80-5.20) Mil/uL Hgb (11.0-16.0) g/dL Hct (34.0-47.0) % MCV (81.0-99.0) fL MCH (27.0-31.0) pg MCHC (33.0-37.0) g/dL RDW (11.5-14.5) % Plt Count (130-400) K/uL MPV (7.2-11.7) fL Neut % (Auto) (50.0-75.0) % Lymph % (Auto) (20.0-40.0) % [place] % (Auto) (0.0-10.0) % Eos % (Auto) (0.0-4.0) % Baso % (Auto) (0.0-2.0) % Neut # (Auto) (1.8-7.0) K/uL Lymph # (Auto) (1.0-4.3) K/uL [place] # (Auto) (0.0-0.8) K/uL Eos # (Auto) (0.0-0.7) K/uL Baso # (Auto) (0.0-0.2) K/uL Neutrophils % (Manual) (50-75) % Lymphocytes % (Manual) (20-40) % Monocytes % (Manual) (0-10) % Platelet Estimate (NORMAL) Polychromasia Hypochromasia (manual) Anisocytosis (manual) Target Cells Ovalocytes Elías Cells Schistocytes APTT 83 H D (21-34) SECONDS Puncture Site pCO2 (35-45) mm/Hg pO2 (80-100) mm/Hg HCO3 (21-28) mmol/L ABG pH (7.35-7.45) ABG Total CO2 (22-28) mmol/L ABG O2 Saturation (95-98) % ABG Base Excess (-2.0-3.0) mmol/L ABG Hemoglobin (11.7-17.4) g/dL ABG Carboxyhemoglobin (0.5-1.5) % POC ABG HHb (Measured) (0.0-5.0) % ABG Methemoglobin (0.0-3.0) % Christian Test A-a O2 Difference mm/Hg Respiratory Index Hgb O2 Saturation (95.0-98.0) % Vent Mode Mechanical Rate FiO2 % Tidal Volume PEEP Sodium (132-148) mmol/L Potassium (3.6-5.2) mmol/L Chloride (98-107) mmol/L Carbon Dioxide (22-30) mmol/L Anion Gap (10-20) BUN (7-17) mg/dL Creatinine (0.7-1.2) mg/dL Est GFR ( Amer) Est GFR (Non-Af Amer) POC Glucose (mg/dL) 192 H 120 H (65-110) mg/dL Random Glucose (65-105) mg/dL Calcium (8.6-10.4) mg/dl Phosphorus (2.5-4.5) mg/dL Magnesium (1.6-2.3) mg/dL Total Bilirubin (0.2-1.3) mg/dL AST (14-36) U/L ALT (9-52) U/L Alkaline Phosphatase (38-126) U/L Total Protein (6.3-8.3) g/dL Albumin (3.5-5.0) g/dL Globulin (2.2-3.9) gm/dL Albumin/Globulin Ratio (1.0-2.1) 09/09/17 09/09/17 09/09/17 Range/Units 06:27 06:27 05:05 WBC 19.3 H (4.8-10.8) K/uL RBC 3.03 L (3.80-5.20) Mil/uL Hgb 8.5 L (11.0-16.0) g/dL Hct 25.8 L (34.0-47.0) % MCV 85.2 (81.0-99.0) fL MCH 28.0 (27.0-31.0) pg MCHC 32.9 L (33.0-37.0) g/dL RDW 16.7 H (11.5-14.5) % Plt Count 178 (130-400) K/uL MPV 10.4 (7.2-11.7) fL Neut % (Auto) 94.2 H (50.0-75.0) % Lymph % (Auto) 2.6 L (20.0-40.0) % [place] % (Auto) 3.0 (0.0-10.0) % Eos % (Auto) 0.0 (0.0-4.0) % Baso % (Auto) 0.2 (0.0-2.0) % Neut # (Auto) 18.2 H (1.8-7.0) K/uL Lymph # (Auto) 0.5 L (1.0-4.3) K/uL [place] # (Auto) 0.6 (0.0-0.8) K/uL Eos # (Auto) 0.0 (0.0-0.7) K/uL Baso # (Auto) 0.0 (0.0-0.2) K/uL Neutrophils % (Manual) 97 H (50-75) % Lymphocytes % (Manual) 2 L (20-40) % Monocytes % (Manual) 1 (0-10) % Platelet Estimate Normal (NORMAL) Polychromasia Slight Hypochromasia (manual) Slight Anisocytosis (manual) Slight Target Cells Slight Ovalocytes Slight [place]ías Cells Slight Schistocytes Slight APTT (21-34) SECONDS Puncture Site pCO2 (35-45) mm/Hg pO2 (80-100) mm/Hg HCO3 (21-28) mmol/L ABG pH (7.35-7.45) ABG Total CO2 (22-28) mmol/L ABG O2 Saturation (95-98) % ABG Base Excess (-2.0-3.0) mmol/L ABG Hemoglobin (11.7-17.4) g/dL ABG Carboxyhemoglobin (0.5-1.5) % POC ABG HHb (Measured) (0.0-5.0) % ABG Methemoglobin (0.0-3.0) % Christian Test A-a O2 Difference mm/Hg Respiratory Index Hgb O2 Saturation (95.0-98.0) % Vent Mode Mechanical Rate FiO2 % Tidal Volume PEEP Sodium 136 (132-148) mmol/L Potassium 4.3 (3.6-5.2) mmol/L Chloride 97 L (98-107) mmol/L Carbon Dioxide 22 (22-30) mmol/L Anion Gap 21 H (10-20) BUN 109 H* D (7-17) mg/dL Creatinine 5.9 H (0.7-1.2) mg/dL Est GFR ( Amer) 8 Est GFR (Non-Af Amer) 7 POC Glucose (mg/dL) 347 H (65-110) mg/dL Random Glucose 289 H (65-105) mg/dL Calcium 8.3 L (8.6-10.4) mg/dl Phosphorus 6.2 H (2.5-4.5) mg/dL Magnesium 2.2 (1.6-2.3) mg/dL Total Bilirubin 0.7 (0.2-1.3) mg/dL AST 49 H (14-36) U/L ALT 382 H D (9-52) U/L Alkaline Phosphatase 204 H (38-126) U/L Total Protein 5.6 L (6.3-8.3) g/dL Albumin 2.7 L (3.5-5.0) g/dL Globulin 2.9 (2.2-3.9) gm/dL Albumin/Globulin Ratio 0.9 L (1.0-2.1) 09/09/17 09/08/17 09/08/17 Range/Units 04:30 23:39 18:04 WBC (4.8-10.8) K/uL RBC (3.80-5.20) Mil/uL Hgb (11.0-16.0) g/dL Hct (34.0-47.0) % MCV (81.0-99.0) fL MCH (27.0-31.0) pg MCHC (33.0-37.0) g/dL RDW (11.5-14.5) % Plt Count (130-400) K/uL MPV (7.2-11.7) fL Neut % (Auto) (50.0-75.0) % Lymph % (Auto) (20.0-40.0) % [place] % (Auto) (0.0-10.0) % Eos % (Auto) (0.0-4.0) % Baso % (Auto) (0.0-2.0) % Neut # (Auto) (1.8-7.0) K/uL Lymph # (Auto) (1.0-4.3) K/uL [place] # (Auto) (0.0-0.8) K/uL Eos # (Auto) (0.0-0.7) K/uL Baso # (Auto) (0.0-0.2) K/uL Neutrophils % (Manual) (50-75) % Lymphocytes % (Manual) (20-40) % Monocytes % (Manual) (0-10) % Platelet Estimate (NORMAL) Polychromasia Hypochromasia (manual) Anisocytosis (manual) Target Cells Ovalocytes [place] Cells Schistocytes APTT (21-34) SECONDS Puncture Site Rb pCO2 30 L (35-45) mm/Hg pO2 55 L (80-100) mm/Hg HCO3 22.4 (21-28) mmol/L ABG pH 7.44 (7.35-7.45) ABG Total CO2 21.3 L (22-28) mmol/L ABG O2 Saturation 91.8 L (95-98) % ABG Base Excess -3.1 L (-2.0-3.0) mmol/L ABG Hemoglobin 9.1 L (11.7-17.4) g/dL ABG Carboxyhemoglobin 2.3 H (0.5-1.5) % POC ABG HHb (Measured) 8.0 H (0.0-5.0) % ABG Methemoglobin 0.7 (0.0-3.0) % Christian Test Na A-a O2 Difference 193.0 mm/Hg Respiratory Index 3.5 Hgb O2 Saturation 89.0 L (95.0-98.0) % Vent Mode Prvc Mechanical Rate 16 FiO2 40.0 % Tidal Volume 500 PEEP 5 Sodium (132-148) mmol/L Potassium (3.6-5.2) mmol/L Chloride (98-107) mmol/L Carbon Dioxide (22-30) mmol/L Anion Gap (10-20) BUN (7-17) mg/dL Creatinine (0.7-1.2) mg/dL Est GFR ( Amer) Est GFR (Non-Af Amer) POC Glucose (mg/dL) 250 H 262 H (65-110) mg/dL Random Glucose (65-105) mg/dL Calcium (8.6-10.4) mg/dl Phosphorus (2.5-4.5) mg/dL Magnesium (1.6-2.3) mg/dL Total Bilirubin (0.2-1.3) mg/dL AST (14-36) U/L ALT (9-52) U/L Alkaline Phosphatase (38-126) U/L Total Protein (6.3-8.3) g/dL Albumin (3.5-5.0) g/dL Globulin (2.2-3.9) gm/dL Albumin/Globulin Ratio (1.0-2.1) Laboratory Results - last 24 hr 09/08/17 09/08/17 09/09/17 18:04 23:39 04:30 WBC RBC Hgb Hct MCV MCH MCHC RDW Plt Count MPV Neut % (Auto) Lymph % (Auto) [place] % (Auto) Eos % (Auto) Baso % (Auto) Neut # (Auto) Lymph # (Auto) [place] # (Auto) Eos # (Auto) Baso # (Auto) Neutrophils % (Manual) Lymphocytes % (Manual) Monocytes % (Manual) Platelet Estimate Polychromasia Hypochromasia (manual) Anisocytosis (manual) Target Cells Ovalocytes Elías Cells Schistocytes APTT Puncture Site Rb pCO2 30 L pO2 55 L HCO3 22.4 ABG pH 7.44 ABG Total CO2 21.3 L ABG O2 Saturation 91.8 L ABG Base Excess -3.1 L ABG Hemoglobin 9.1 L ABG Carboxyhemoglobin 2.3 H POC ABG HHb (Measured) 8.0 H ABG Methemoglobin 0.7 Christian Test Na A-a O2 Difference 193.0 Respiratory Index 3.5 Hgb O2 Saturation 89.0 L Vent Mode Prvc Mechanical Rate 16 FiO2 40.0 Tidal Volume 500 PEEP 5 Sodium Potassium Chloride Carbon Dioxide Anion Gap BUN Creatinine Est GFR ( Amer) Est GFR (Non-Af Amer) POC Glucose (mg/dL) 262 H 250 H Random Glucose Calcium Phosphorus Magnesium Total Bilirubin AST ALT Alkaline Phosphatase Total Protein Albumin Globulin Albumin/Globulin Ratio 09/09/17 09/09/17 09/09/17 05:05 06:27 06:27 WBC 19.3 H RBC 3.03 L Hgb 8.5 L Hct 25.8 L MCV 85.2 MCH 28.0 MCHC 32.9 L RDW 16.7 H Plt Count 178 MPV 10.4 Neut % (Auto) 94.2 H Lymph % (Auto) 2.6 L [place] % (Auto) 3.0 Eos % (Auto) 0.0 Baso % (Auto) 0.2 Neut # (Auto) 18.2 H Lymph # (Auto) 0.5 L [place] # (Auto) 0.6 Eos # (Auto) 0.0 Baso # (Auto) 0.0 Neutrophils % (Manual) 97 H Lymphocytes % (Manual) 2 L Monocytes % (Manual) 1 Platelet Estimate Normal Polychromasia Slight Hypochromasia (manual) Slight Anisocytosis (manual) Slight Target Cells Slight Ovalocytes Slight Elías Cells Slight Schistocytes Slight APTT Puncture Site pCO2 pO2 HCO3 ABG pH ABG Total CO2 ABG O2 Saturation ABG Base Excess ABG Hemoglobin ABG Carboxyhemoglobin POC ABG HHb (Measured) ABG Methemoglobin Christian Test A-a O2 Difference Respiratory Index Hgb O2 Saturation Vent Mode Mechanical Rate FiO2 Tidal Volume PEEP Sodium 136 Potassium 4.3 Chloride 97 L Carbon Dioxide 22 Anion Gap 21 H BUN 109 H* D Creatinine 5.9 H Est GFR ( Amer) 8 Est GFR (Non-Af Amer) 7 POC Glucose (mg/dL) 347 H Random Glucose 289 H Calcium 8.3 L Phosphorus 6.2 H Magnesium 2.2 Total Bilirubin 0.7 AST 49 H ALT 382 H D Alkaline Phosphatase 204 H Total Protein 5.6 L Albumin 2.7 L Globulin 2.9 Albumin/Globulin Ratio 0.9 L 09/09/17 09/09/17 09/09/17 06:27 11:41 17:39 WBC RBC Hgb Hct MCV MCH MCHC RDW Plt Count MPV Neut % (Auto) Lymph % (Auto) [place] % (Auto) Eos % (Auto) Baso % (Auto) Neut # (Auto) Lymph # (Auto) [place] # (Auto) Eos # (Auto) Baso # (Auto) Neutrophils % (Manual) Lymphocytes % (Manual) Monocytes % (Manual) Platelet Estimate Polychromasia Hypochromasia (manual) Anisocytosis (manual) Target Cells Ovalocytes [place] Cells Schistocytes APTT 83 H D Puncture Site pCO2 pO2 HCO3 ABG pH ABG Total CO2 ABG O2 Saturation ABG Base Excess ABG Hemoglobin ABG Carboxyhemoglobin POC ABG HHb (Measured) ABG Methemoglobin Christian Test A-a O2 Difference Respiratory Index Hgb O2 Saturation Vent Mode Mechanical Rate FiO2 Tidal Volume PEEP Sodium Potassium Chloride Carbon Dioxide Anion Gap BUN Creatinine Est GFR ( Amer) Est GFR (Non-Af Amer) POC Glucose (mg/dL) 120 H 192 H Random Glucose Calcium Phosphorus Magnesium Total Bilirubin AST ALT Alkaline Phosphatase Total Protein Albumin Globulin Albumin/Globulin Ratio Critical Care Progress Note - Nutrition Nutrition: Nutrition Category Date Time Status NPO Diet [DIET] Diets 09/09/17 Dinner Active Attending/Attestation - Attestation I have personally seen and examined this patient.: Yes I have fully participated in the care of the patient.: Yes I have reviewed all pertinent clinical information: Yes Notes (Text): 09/09/17 20:07 During the rounds the patient was evaluated, management was discussed. Patient had hemodialysis today. After the hemodialysis patient was tolerating the CPAP trial. Clinical stable. Patient was extubated. Placed on 40% Ventimask. We'll continue to monitor.
[2017-09-09] MEDS ORDERED: SENNA 8.8 MG/5 ML NG SCH (12:00)
--- NOTE | 2017-09-09 13:13 | CP.PCM.PN ---
Subjective - Date & Time of Evaluation Date of Evaluation: 09/09/17 Time of Evaluation: 13:00 - Subjective Subjective: Still intubated, on hemodialysis, more alert. The family elected medical management for the cardiac status. Objective - Vital Signs/Intake and Output Vital Signs (last 24 hours): Temp Pulse Resp BP Pulse Ox 97.2 F L 107 H 16 99/68 L 100 09/09/17 13:05 09/09/17 13:05 09/09/17 13:05 09/09/17 13:05 09/09/17 13:05 Intake and Output: 09/09/17 09/09/17 06:59 18:59 Intake Total 970 265 Output Total 50 0 Balance 920 265 - Medications Medications: Current Medications Albuterol/Ipratropium (Duoneb 3 Mg/0.5 Mg (3 Ml) Ud) 3 ml INH RQ4 [facility] Last Admin: 09/09/17 11:50 Dose: Not Given Aspirin (Aspirin Chewable) 81 mg PO DAILY [facility] Last Admin: 09/08/17 09:41 Dose: 81 mg Epoetin Alan (Procrit) 10,000 unit IV MWF [facility] Last Admin: 09/09/17 10:28 Dose: 10,000 unit Ferrous Gluconate (Fergon) 324 mg PO TID [facility] Last Admin: 09/08/17 17:52 Dose: 324 mg Heparin Sodium (Porcine) (Heparin) 5,000 units SC Q8 [facility] Aztreonam 1 gm/ Sodium (Chloride) 100 mls @ 100 mls/hr IVPB Q12H [facility] Last Admin: 09/09/17 01:05 Dose: 100 mls/hr Metronidazole (Flagyl) 500 mg in 100 mls @ 100 mls/hr IVPB Q8 [facility] Last Admin: 09/09/17 05:00 Dose: 100 mls/hr Insulin Aspart (Novolog) 0 unit SC Q6 [facility] PRN Reason: Protocol Last Admin: 09/09/17 12:16 Dose: Not Given Insulin Glargine (Lantus) 5 unit SC HS [facility] Last Admin: 09/08/17 23:00 Dose: 5 u Methylprednisolone (Solu-Medrol) 40 mg IVP DAILY [facility] Stop: 09/12/17 10:01 Metoprolol Tartrate (Lopressor) 25 mg PO BID [facility] Last Admin: 09/08/17 17:52 Dose: 25 mg Pantoprazole Sodium (Protonix Susp) 40 mg NG 0600 [facility] Paricalcitol (Zemplar) 2 mcg IV MWF [facility] Last Admin: 09/09/17 10:28 Dose: 2 mcg Rosuvastatin Calcium (Crestor) 5 mg PO HS [facility] Last Admin: 09/08/17 21:24 Dose: 5 mg Senna (Senokot Syrup) 8.8 mg NG DAILY [facility] Vitamin B Complex/Vit C/Folic Acid (Nephro-Kamron) 1 tab PO 0800 [facility] Last Admin: 09/08/17 09:41 Dose: 1 tab - Labs Labs: 09/09/17 06:27 09/09/17 06:27 PT 17.3 SECONDS (9.7-12.2) H 09/06/17 06:00 INR 1.5 09/06/17 06:00 APTT 83 SECONDS (21-34) H D 09/09/17 06:27 - Constitutional Appears: Non-toxic - Head Exam Head Exam: ATRAUMATIC - Eye Exam Eye Exam: EOMI - ENT Exam ENT Exam: Mucous Membranes Moist - Neck Exam Neck Exam: absent: Lymphadenopathy, Thyromegaly - Respiratory Exam Respiratory Exam: Clear to Ausculation Bilateral. absent: Rales - Cardiovascular Exam Cardiovascular Exam: REGULAR RHYTHM. absent: Murmur - GI/Abdominal Exam GI & Abdominal Exam: Normal Bowel Sounds. 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
[2017-09-09] MEDS: MethylPREDNISolone 40 mg Vial IVP SCH (13:56)
[2017-09-09] MEDS: Multivitamin Vitamin B Complex (Nephro-Vite) Tab PO SCH (14:08)
--- NOTE | 2017-09-09 15:01 | CP.PCM.PN ---
Subjective - Date & Time of Evaluation Date of Evaluation: 09/09/17 Time of Evaluation: 15:00 - Subjective Subjective: Nephrology Consultation: Assessment: critical CKD stage 5 (N18.5) with hyperkalemia, acidosis now has ESRD on HD via [facility] pulm edema, CHF, NSTEMI, pleural effusions, pneumonia AMS, hyperglycemia s/p cardiac arrest, shock liver, A fib Diabetic chronic Kidney Disease (E11.22) Hypertensive Chronic Kidney Disease (I12.9) Anemia (D64.9), Hyperphosphatemia (E83.39), Secondary Hyperparathyroidism (E21.1 ), HTN (I12.9), vit D insuff, hx of colon CA, TIAs Plan HD today as ordered. had low BFR during HD. maintain hemodynamic stable. Patient not on ACEI/ARB due to low BP. off midodrine started iron supplements, MVI, epogen with HD, and zemplar 2 mcg with HD. d/c oral vit d vasc surgery has evaluated. need follow up Re; detention HD access ID and cardiology following [facility] supplementation as needed Dose meds/antibiotics for ESRD/HD status. Avoid fleets enema/magnesium based laxatives. Avoid nephrotoxins/NSAIDs Glycemic control Further work up/management as per primary team Thanks for allowing me to participate in care of your patient. Will follow patient with you. Please call if any Qs. d/w team Dr Edson Norton Office: [phone] Chief Complaint; unable to obtain reason for consult: CKD management source of Info: EMR HPI: Pt is a 76 F with hx of diabetes Mellitus ( years), hypertension (years), CHF, TIA, Colon CA, CKD stage 4/5, has matured AVG in left arm presented with complaints of AMS and hyperglycemia as brought by family. now has elevated trop 100, hyperkalemia, AMS and elevated sugar, pulm edema. renal consult for CKD management. pt with AMS unable to provide any hx. she had received medical management for hyperkalemia. ROS: unable to obtain Physical Examination: General Appearance: ill appearing,intubated Vitals reviewed and noted as below Head; Atraumatic, normocephalic ENT: intubated EYES: PERRLA Neck; supple no lymphadenopathy, no thyromegaly or bruit Lungs: Normal respiratory rate/effort. Breath sounds bilateral clear, she is mechanically ventilated Heart: Normal rate. s1s2 normal. No rub or gallop. Extremities: no edema. No varicose veins. chronic hyperpigmented changes in legs Neurological: Patient is awake follows commands Skin: Warm and dry. Normal turgor. No rash. Palpitation: Normal elasticity for age Abdomen: Abdomen is soft. Bowel sounds +. There is no abdominal tenderness, no guarding/rigidity no organomegaly Psych: unable MSK: no joint tenderness or swelling. Digits and nails normal, no deformity : kidney or bladder not palpable Access: Left AVG without bruit. has left IJ shiley Labs/imaging reviewed. Past medical history, past surgical history, family history, social history, allergy reviewed and noted as below Family hx: no hx of CKD. Rest non-contributory Objective - Vital Signs/Intake and Output Vital Signs (last 24 hours): Temp Pulse Resp BP Pulse Ox 97.2 F L 109 H 20 125/56 L 100 09/09/17 13:05 09/09/17 14:23 09/09/17 14:23 09/09/17 14:23 09/09/17 14:23 Intake and Output: 09/09/17 09/09/17 06:59 18:59 Intake Total 970 365 Output Total 50 0 Balance 920 365 - Medications Medications: Current Medications Albuterol/Ipratropium (Duoneb 3 Mg/0.5 Mg (3 Ml) Ud) 3 ml INH RQ4 [facility] Last Admin: 09/09/17 11:50 Dose: Not Given Aspirin (Aspirin Chewable) 81 mg PO DAILY [facility] Last Admin: 09/09/17 13:55 Dose: 81 mg Epoetin Alan (Procrit) 10,000 unit IV MWF [facility] Last Admin: 09/09/17 10:28 Dose: 10,000 unit Ferrous Gluconate (Fergon) 324 mg PO TID [facility] Last Admin: 09/09/17 14:08 Dose: 324 mg Heparin Sodium (Porcine) (Heparin) 5,000 units SC Q8 [facility] Last Admin: 09/09/17 14:08 Dose: 5,000 units Aztreonam 1 gm/ Sodium (Chloride) 100 mls @ 100 mls/hr IVPB Q12H [facility] Last Admin: 09/09/17 14:08 Dose: 100 mls/hr Metronidazole (Flagyl) 500 mg in 100 mls @ 100 mls/hr IVPB Q8 [facility] Last Admin: 09/09/17 14:09 Dose: 100 mls/hr Vancomycin HCl 1 gm/ Sodium (Chloride) 250 mls @ 166.7 mls/hr IVPB MWF [facility] PRN Reason: Protocol Insulin Aspart (Novolog) 0 unit SC Q6 [facility] PRN Reason: Protocol Last Admin: 09/09/17 12:16 Dose: Not Given Insulin Glargine (Lantus) 5 unit SC HS [facility] Last Admin: 09/08/17 23:00 Dose: 5 u Methylprednisolone (Solu-Medrol) 40 mg IVP DAILY [facility] Stop: 09/12/17 10:01 Last Admin: 09/09/17 13:56 Dose: 40 mg Metoprolol Tartrate (Lopressor) 25 mg PO BID [facility] Last Admin: 09/09/17 13:55 Dose: Not Given Pantoprazole Sodium (Protonix Susp) 40 mg NG 0600 [facility] Paricalcitol (Zemplar) 2 mcg IV MWF [facility] Last Admin: 09/09/17 10:28 Dose: 2 mcg Rosuvastatin Calcium (Crestor) 5 mg PO [facility] Last Admin: 09/08/17 21:24 Dose: 5 mg Senna (Senokot Syrup) 8.8 mg NG DAILY [facility] Last Admin: 09/09/17 13:56 Dose: 8.8 mg Vitamin B Complex/Vit C/Folic Acid (Nephro-Kamron) 1 tab PO 0800 [facility] Last Admin: 09/09/17 14:08 Dose: 1 tab - Labs Labs: 09/09/17 06:27 09/09/17 06:27 PT 17.3 SECONDS (9.7-12.2) H 09/06/17 06:00 INR 1.5 09/06/17 06:00 APTT 83 SECONDS (21-34) H D 09/09/17 06:27
--- NOTE | 2017-09-09 15:06 | CP.PCM.PCO ---
Physician Communication Note - Physician Communication Note Physician Communication Note: Permacath tomorrow in OR
[2017-09-09] MEDS: Vancomycin 1 GM in Sodium Chloride 0.9% 200 ML IVPB SCH (18:12)
[2017-09-09] MEDS: EPOETIN ALFA 4,000 UNIT/ML ML Dialysis IV SCH (18:57)
--- NOTE | 2017-09-09 20:39 | CP.PCM.PN ---
Subjective - Date & Time of Evaluation Date of Evaluation: 09/09/17 Time of Evaluation: 03:00 - Subjective Subjective: dictated Objective - Vital Signs/Intake and Output Vital Signs (last 24 hours): Temp Pulse Resp BP Pulse Ox 97.6 F 119 H 22 87/50 L 99 09/09/17 20:00 09/09/17 20:00 09/09/17 20:00 09/09/17 19:59 09/09/17 20:00 Intake and Output: 09/09/17 09/10/17 18:59 06:59 Intake Total 665 Output Total 0 0 Balance 665 0 - Medications Medications: Current Medications Albuterol/Ipratropium (Duoneb 3 Mg/0.5 Mg (3 Ml) Ud) 3 ml INH RQ4 [facility] Last Admin: 09/09/17 19:20 Dose: 3 ml Aspirin (Aspirin Chewable) 81 mg PO DAILY [facility] Last Admin: 09/09/17 13:55 Dose: 81 mg Epoetin Alan (Procrit) 10,000 unit IV MWF [facility] Last Admin: 09/09/17 10:28 Dose: 10,000 unit Ferrous Gluconate (Fergon) 324 mg PO TID [facility] Last Admin: 09/09/17 18:10 Dose: Not Given Heparin Sodium (Porcine) (Heparin) 5,000 units SC Q8 [facility] Last Admin: 09/09/17 14:08 Dose: 5,000 units Aztreonam 1 gm/ Sodium (Chloride) 100 mls @ 100 mls/hr IVPB Q12H [facility] Last Admin: 09/09/17 14:08 Dose: 100 mls/hr Metronidazole (Flagyl) 500 mg in 100 mls @ 100 mls/hr IVPB Q8 [facility] Last Admin: 09/09/17 14:09 Dose: 100 mls/hr Vancomycin HCl 1 gm/ Sodium (Chloride) 200 mls @ 166.7 mls/hr IVPB MWF [facility] PRN Reason: Protocol Last Admin: 09/09/17 18:12 Dose: 166.7 mls/hr Insulin Aspart (Novolog) 0 unit SC Q6 [facility] PRN Reason: Protocol Last Admin: 09/09/17 18:11 Dose: Not Given Insulin Glargine (Lantus) 5 unit SC HS [facility] Last Admin: 09/08/17 23:00 Dose: 5 u Methylprednisolone (Solu-Medrol) 40 mg IVP DAILY [facility] Stop: 09/12/17 10:01 Last Admin: 09/09/17 13:56 Dose: 40 mg Metoprolol Tartrate (Lopressor) 25 mg PO BID [facility] Last Admin: 09/09/17 18:10 Dose: Not Given Pantoprazole Sodium (Protonix Susp) 40 mg NG 0600 [facility] Paricalcitol (Zemplar) 2 mcg IV MWF [facility] Last Admin: 09/09/17 10:28 Dose: 2 mcg Rosuvastatin Calcium (Crestor) 5 mg PO HS [facility] Last Admin: 09/08/17 21:24 Dose: 5 mg Sennosides (Senokot Tab) 8.6 mg NG DAILY [facility] Vitamin B Complex/Vit C/Folic Acid (Nephro-Kamron) 1 tab PO 0800 [facility] Last Admin: 09/09/17 14:08 Dose: 1 tab - Labs Labs: 09/09/17 06:27 09/09/17 06:27 PT 17.3 SECONDS (9.7-12.2) H 09/06/17 06:00 INR 1.5 09/06/17 06:00 APTT 83 SECONDS (21-34) H D 09/09/17 06:27
[2017-09-09] MEDS: (Lantus) Insulin Glargine, Recombinant SC SCH (23:47)
[2017-09-10] MEDS: Albuterol-Ipratrop 3 mg / 0.5 (3 ml) UD INH SCH ×6 (00:24→19:07)
[2017-09-10] MEDS: (Novolog) Insulin Aspart, Recombinant 100 u/ml 10 ml vial SC SCH ×4 (00:32→18:01)
--- NOTE | 2017-09-10 01:19 | PN ---
DATE: INFECTIOUS DISEASE FOLLOWUP NOTE SUBJECTIVE: The patient was seen today. She remains intubated. She did not have cardiac cath as family refused. She is on hemodialysis now and renal attending was there. She is getting dialysis on Saturday, Saturday, and Saturday. Still remains intubated. They were ____ T-tube. She is status post cardiac arrest and has atrial fib and has chronic kidney disease. Her white count is increasing at this time. PHYSICAL EXAMINATION: VITAL SIGNS: On exam, her T-max was 97.6, heart rate of 119, blood pressure 87/50, respirations are 22, saturation 99. She has a triple lumen on the left side of her neck. HEENT: Head is atraumatic. She was opening her eyes. T-tube present, intubated. NECK: Supple. LUNGS: Have coarse breath sounds. HEART: S1, S2. Tachycardic, atrial fib. ABDOMEN: Soft, nontender. No guarding. No rigidity present. EXTREMITIES: Has Venodyne boots on. LABORATORY DATA: White count is 19.3 today, hemoglobin 8.5, hematocrit 25.8, platelet count is 178. White count is increasing. Sodium is 136, potassium 4.3, chloride is 97, CO2 is 22, BUN is 109, creatinine 5.9. She is a dialysis patient. Her AST is 49, ALT is 382, alk phos is 204. Micro pugh, the cultures have been all negative on 09/03. X-ray: Chest x-ray was done today. X-ray shows cardiomegaly and shows moderate loculated left pleural effusion with consolidated changes in the left mid to lower lung field and moderate venous congestion. Lines and tubes are stable. So she still has a consolidation. She has been on Azactam, and she is also on steroids, Solu-Medrol at this time, and she was on Flagyl IV, and she is ALLERGIC TO PENICILLIN, so at this time, I am going to add vancomycin 1 gm today, and then MWF, she is getting dialysis, she can get it post dialysis, and also to repeat the sputum. The white count may be related to the steroids also and she is being followed by multiple consultants at this time and is on dialysis, with atrial fib, acute respiratory failure with cardiac arrest, and seems to be awake. We will follow. Karissa Adams MD [facility] # [id number]
[2017-09-10] MEDS: Aztreonam 1 GM in Sodium Chloride 0.9% 100 ML IVPB SCH ×2 (02:04→12:55)
[2017-09-10 05:53] LABS: BASO % 0.1 % (0.0-2.0); HEMOGLOBIN 9.6 g/dL (11.0-16.0); LYMPH # 0.3 K/uL (1.0-4.3); LYMPH % 1.3 % (20.0-40.0); MEAN CELL VOLUME 86.8 fL (81.0-99.0); MEAN CORPUSCULAR HEMOGLOBIN 27.3 pg (27.0-31.0); MEAN CORPUSCULAR HGB CONC 31.5 g/dL (33.0-37.0); MEAN PLATELET VOLUME 9.7 fL (7.2-11.7); MONO # 0.8 K/uL (0.0-0.8); MONO % 3.1 % (0.0-10.0); NEUT # 24.7 K/uL (1.8-7.0); NEUT % 95.5 % (50.0-75.0); NRBC % 0.2 % (0.0-2.0); PLATELET COUNT 236 K/uL (130-400); RED CELL DISTRIBUTION WIDTH 17.2 % (11.5-14.5); WHITE BLOOD COUNT 25.9 K/uL (4.8-10.8)
[2017-09-10] MEDS ORDERED: Pantoprazole 40 mg Susp UD NG SCH (06:00)
[2017-09-10] MEDS: metroNIDAZOLE IV 500 mg/100 ml 500 MG/100 ML BAG IVPB SCH ×3 (06:05→22:26)
[2017-09-10 06:28] LABS: ALBUMIN 3.1 g/dL (3.5-5.0); CALCIUM 8.5 mg/dl (8.6-10.4)
[2017-09-10] MEDS: Multivitamin Vitamin B Complex (Nephro-Vite) Tab PO SCH (08:00)
[2017-09-10] MEDS ORDERED: Metoprolol 1 mg/ml Inj IVP ONE (08:34)
[2017-09-10 08:55] LABS: LYMPHOCYTE 1 % (20-40); MONOCYTE 2 % (0-10); NEUTROPHIL 97 % (50-75); NUCLEATED RED BLOOD CELL 2 % (0-0); TOTAL CELLS COUNTED 100
[2017-09-10 08:56] LABS: ANISOCYTOSIS SLIGHT; HYPOCHROMIC SLIGHT; OVALOCYTES SLIGHT; PLATELET ESTIMATE NORMAL (NORMAL); POLYCHROMIC SLIGHT; TARGET CELLS SLIGHT
--- NOTE | 2017-09-10 09:46 | RAD ---
HISTORY: s/p extubation COMPARISON: 09/09/2017 FINDINGS: LUNGS: 0 nodes probable subsegmental atelectasis mid to lower left lung. Hazy opacity a Joses[place] to left hilum, nonspecific. This represents interval change from prior examination and may represent an acute infiltrate. PLEURA: Small left pleural effusion slightly increased from prior examination. No right pleural effusion. No pneumothorax. CARDIOVASCULAR: Mild cardiomegaly. Status post removal of endotracheal tube and nasogastric tube. Right IJ SANDRA multi lumen central venous catheter unchanged. Left tunneled central venous dialysis catheter unchanged. Mitral annular calcification noted. OSSEOUS STRUCTURES: No significant abnormalities. VISUALIZED UPPER ABDOMEN: Normal. OTHER FINDINGS: None. IMPRESSION: Mild increase left pleural effusion. New left perihilar opacity. Removal of endotracheal tube and nasogastric tube.
[2017-09-10] MEDS: MethylPREDNISolone 40 mg Vial IVP SCH (10:04)
[2017-09-10 10:33] LABS: INR 1.6
[2017-09-10] MEDS ORDERED: Lidocaine 2% Inj (20ml) ONE (11:28)
[2017-09-10] MEDS ORDERED: HEPARIN-NS 5,000 UNITS/500 ML 5,000 UNIT/500 ML BAG IV ONE (11:29)
--- NOTE | 2017-09-10 12:09 | CP.CCUPN ---
<Nicole Basurto - Last Filed: 09/10/17 12:19> CCU Subjective - Physician Review Subjective (Free Text): 09/10/17 11:54 Patient seen and examined at bedside. Per nursing, patient with HR . Patient was extubated yesterday. Patient is currently doing well, Offers no complaints at this time. NPO, Plan for permacath placement later today with General Surgery. CCU Objective - Vital Signs / Intake & Output Vital Signs (Last 4 hours): Vital Signs Temp Pulse Resp BP Pulse Ox 09/10/17 10:00 98 H 21 100 09/10/17 09:59 110 H 27 H 108/72 100 09/10/17 08:59 94 H 20 112/73 100 09/10/17 08:00 97.9 F 116 H 21 100 09/10/17 07:59 123/69 Intake and Output (Last 8hrs): Intake & Output 09/09/17 09/10/17 09/10/17 22:59 06:59 14:59 Intake Total 350 300 0 Output Total 0 0 Balance 350 300 0 Intake: Intake, IV Amount 300 300 Right Proximal Port 300 300 Internal Jugular Oral 50 0 Output: Urine 0 0 Urine, Voided 0 0 Stool 0 Other: # Bowel Movements 1 1 - Physical Exam Head: Positive for: Atraumatic, Normocephalic. Negative for: Tenderness, Contusion, Swelling Pupils: Positive for: PERRL. Negative for: Sluggish, Non-Reactive Extroacular Muscles: Positive for: EOMI Conjunctiva: Positive for: Normal Mouth: Positive for: Dry Pharnyx: Positive for: Normal Nose (External): Positive for: Atraumatic Neck: Positive for: Trachea Midline, Other (R IJ central line, dialysis catheter on the ). Negative for: JVD Respiratory/Chest: Positive for: Good Air Exchange, Decreased Breath Sounds (on bilateral bases). Negative for: Wheezes Cardiovascular: Positive for: Tachycardic Abdomen: Positive for: Normal Bowel Sounds. Negative for: Peritoneal Signs Upper Extremity: Negative for: Cyanosis, Edema Lower Extremity: Negative for: Edema Skin: Positive for: Warm, Dry Psychiatric: Positive for: Alert - Medications Active Medications: Active Medications Generic Name Dose Route Start Last Admin Trade Name Freq PRN Reason Stop Dose Admin Albuterol/Ipratropium 3 ml 09/04/17 16:00 09/10/17 11:13 Duoneb 3 Mg/0.5 Mg (3 Ml) Ud INH 3 ml RQ4 [facility] Administration Aspirin 81 mg 08/30/17 10:00 09/10/17 10:05 Aspirin Chewable PO Not Given DAILY [facility] Diltiazem HCl 30 mg 09/10/17 07:00 09/10/17 07:00 Cardizem PO Not Given Q6H [facility] Epoetin Alan 10,000 unit 09/09/17 10:30 09/09/17 10:28 Procrit IV 10,000 unit [facility] Administration Ferrous Gluconate 324 mg 08/31/17 10:00 09/10/17 10:05 Fergon PO Not Given TID [facility] Heparin Sodium (Porcine) 5,000 units 09/09/17 14:00 09/10/17 05:35 Heparin SC Not Given Q8 [facility] Aztreonam 1 gm/ Sodium 100 mls @ 100 mls/hr 09/06/17 01:30 09/10/17 02:04 Chloride IVPB 100 mls/hr Q12H [facility] Administration Metronidazole 500 mg in 100 mls @ 100 mls/hr 09/08/17 14:00 09/10/17 06:05 Flagyl IVPB 100 mls/hr Q8 [facility] Administration Vancomycin HCl 1 gm/ Sodium 200 mls @ 166.7 mls/hr 09/09/17 16:00 09/09/17 18 :12 Chloride IVPB 166.7 mls/hr [facility] Administration Protocol Insulin Aspart 0 unit 09/01/17 11:49 09/10/17 05:36 Novolog SC Not Given Q6 [facility] Protocol Insulin Glargine 5 unit 09/03/17 22:00 09/09/17 23:47 Lantus SC 5 u HS [facility] Administration Methylprednisolone 40 mg 09/09/17 10:00 09/10/17 10:04 Solu-Medrol IVP 09/12/17 10:01 40 mg DAILY [facility] Administration Metoprolol Tartrate 25 mg 09/06/17 08:00 09/10/17 10:04 Lopressor PO Not Given BID [facility] Pantoprazole Sodium 40 mg 09/10/17 10:00 09/10/17 10:04 Protonix Inj IVP 40 mg DAILY [facility] Administration Paricalcitol 2 mcg 09/09/17 09:00 03/12/18 10:28 Zemplar IV 2 mcg MWF [facility] Administration Rosuvastatin Calcium 5 mg 08/30/17 01:15 09/09/17 21:24 Crestor PO 5 mg HS [facility] Administration Sennosides 8.6 mg 09/10/17 10:00 09/10/17 10:06 Senokot Tab NG Not Given DAILY [facility] Vitamin B Complex/Vit C/Folic Acid 1 tab 08/31/17 08:00 09/10/17 08:00 Nephro-Kamron PO Not Given 0800 [facility] - Patient Studies Lab Studies: Lab Studies 09/10/17 09/10/17 09/10/17 Range/Units 10:19 05:46 05:44 WBC 25.9 H (4.8-10.8) K/uL RBC 3.50 L (3.80-5.20) Mil/uL Hgb 9.6 L (11.0-16.0) g/dL Hct 30.4 L (34.0-47.0) % MCV 86.8 (81.0-99.0) fL MCH 27.3 (27.0-31.0) pg MCHC 31.5 L (33.0-37.0) g/dL RDW 17.2 H (11.5-14.5) % Plt Count 236 (130-400) K/uL MPV 9.7 (7.2-11.7) fL Neut % (Auto) 95.5 H (50.0-75.0) % Lymph % (Auto) 1.3 L (20.0-40.0) % [place] % (Auto) 3.1 (0.0-10.0) % Eos % (Auto) 0.0 (0.0-4.0) % Baso % (Auto) 0.1 (0.0-2.0) % Neut # (Auto) 24.7 H (1.8-7.0) K/uL Lymph # (Auto) 0.3 L (1.0-4.3) K/uL [place] # (Auto) 0.8 (0.0-0.8) K/uL Eos # (Auto) 0.0 (0.0-0.7) K/uL Baso # (Auto) 0.0 (0.0-0.2) K/uL Neutrophils % (Manual) 97 H (50-75) % Lymphocytes % (Manual) 1 L (20-40) % Monocytes % (Manual) 2 (0-10) % Nucleated RBC % 2 H (0-0) % Platelet Estimate Normal (NORMAL) Polychromasia Slight Hypochromasia (manual) Slight Anisocytosis (manual) Slight Target Cells Slight Ovalocytes Slight PT 19.0 H (9.7-12.2) SECONDS INR 1.6 APTT 27 D (21-34) SECONDS Sodium 137 (132-148) mmol/L Potassium 4.6 (3.6-5.2) mmol/L Chloride 96 L (98-107) mmol/L Carbon Dioxide 23 (22-30) mmol/L Anion Gap 22 H (10-20) BUN 78 H (7-17) mg/dL Creatinine 4.2 H (0.7-1.2) mg/dL Est GFR ( Amer) 12 Est GFR (Non-Af Amer) 10 POC Glucose (mg/dL) (65-110) mg/dL Random Glucose 253 H (65-105) mg/dL Calcium 8.5 L (8.6-10.4) mg/dl Phosphorus 6.6 H (2.5-4.5) mg/dL Magnesium 2.1 (1.6-2.3) mg/dL Total Bilirubin 0.8 (0.2-1.3) mg/dL AST 49 H (14-36) U/L ALT 329 H (9-52) U/L Alkaline Phosphatase 215 H (38-126) U/L Total Protein 6.2 L (6.3-8.3) g/dL Albumin 3.1 L (3.5-5.0) g/dL Globulin 3.1 (2.2-3.9) gm/dL Albumin/Globulin Ratio 1.0 (1.0-2.1) 09/10/17 09/09/17 09/09/17 Range/Units 05:35 23:30 17:39 WBC (4.8-10.8) K/uL RBC (3.80-5.20) Mil/uL Hgb (11.0-16.0) g/dL Hct (34.0-47.0) % MCV (81.0-99.0) fL MCH (27.0-31.0) pg MCHC (33.0-37.0) g/dL RDW (11.5-14.5) % Plt Count (130-400) K/uL MPV (7.2-11.7) fL Neut % (Auto) (50.0-75.0) % Lymph % (Auto) (20.0-40.0) % [place] % (Auto) (0.0-10.0) % Eos % (Auto) (0.0-4.0) % Baso % (Auto) (0.0-2.0) % Neut # (Auto) (1.8-7.0) K/uL Lymph # (Auto) (1.0-4.3) K/uL [place] # (Auto) (0.0-0.8) K/uL Eos # (Auto) (0.0-0.7) K/uL Baso # (Auto) (0.0-0.2) K/uL Neutrophils % (Manual) (50-75) % Lymphocytes % (Manual) (20-40) % Monocytes % (Manual) (0-10) % Nucleated RBC % (0-0) % Platelet Estimate (NORMAL) Polychromasia Hypochromasia (manual) Anisocytosis (manual) Target Cells Ovalocytes PT (9.7-12.2) SECONDS INR APTT (21-34) SECONDS Sodium (132-148) mmol/L Potassium (3.6-5.2) mmol/L Chloride (98-107) mmol/L Carbon Dioxide (22-30) mmol/L Anion Gap (10-20) BUN (7-17) mg/dL Creatinine (0.7-1.2) mg/dL Est GFR ( Amer) Est GFR (Non-Af Amer) POC Glucose (mg/dL) 252 H 233 H 192 H (65-110) mg/dL Random Glucose (65-105) mg/dL Calcium (8.6-10.4) mg/dl Phosphorus (2.5-4.5) mg/dL Magnesium (1.6-2.3) mg/dL Total Bilirubin (0.2-1.3) mg/dL AST (14-36) U/L ALT (9-52) U/L Alkaline Phosphatase (38-126) U/L Total Protein (6.3-8.3) g/dL Albumin (3.5-5.0) g/dL Globulin (2.2-3.9) gm/dL Albumin/Globulin Ratio (1.0-2.1) Laboratory Results - last 24 hr 09/09/17 09/09/17 09/10/17 17:39 23:30 05:35 WBC RBC Hgb Hct MCV MCH MCHC RDW Plt Count MPV Neut % (Auto) Lymph % (Auto) [place] % (Auto) Eos % (Auto) Baso % (Auto) Neut # (Auto) Lymph # (Auto) [place] # (Auto) Eos # (Auto) Baso # (Auto) Neutrophils % (Manual) Lymphocytes % (Manual) Monocytes % (Manual) Nucleated RBC % Platelet Estimate Polychromasia Hypochromasia (manual) Anisocytosis (manual) Target Cells Ovalocytes PT INR APTT Sodium Potassium Chloride Carbon Dioxide Anion Gap BUN Creatinine Est GFR ( Amer) Est GFR (Non-Af Amer) POC Glucose (mg/dL) 192 H 233 H 252 H Random Glucose Calcium Phosphorus Magnesium Total Bilirubin AST ALT Alkaline Phosphatase Total Protein Albumin Globulin Albumin/Globulin Ratio 09/10/17 09/10/17 09/10/17 05:44 05:46 10:19 WBC 25.9 H RBC 3.50 L Hgb 9.6 L Hct 30.4 L MCV 86.8 MCH 27.3 MCHC 31.5 L RDW 17.2 H Plt Count 236 MPV 9.7 Neut % (Auto) 95.5 H Lymph % (Auto) 1.3 L [place] % (Auto) 3.1 Eos % (Auto) 0.0 Baso % (Auto) 0.1 Neut # (Auto) 24.7 H Lymph # (Auto) 0.3 L [place] # (Auto) 0.8 Eos # (Auto) 0.0 Baso # (Auto) 0.0 Neutrophils % (Manual) 97 H Lymphocytes % (Manual) 1 L Monocytes % (Manual) 2 Nucleated RBC % 2 H Platelet Estimate Normal Polychromasia Slight Hypochromasia (manual) Slight Anisocytosis (manual) Slight Target Cells Slight Ovalocytes Slight PT 19.0 H INR 1.6 APTT 27 D Sodium 137 Potassium 4.6 Chloride 96 L Carbon Dioxide 23 Anion Gap 22 H BUN 78 H Creatinine 4.2 H Est GFR ( Amer) 12 Est GFR (Non-Af Amer) 10 POC Glucose (mg/dL) Random Glucose 253 H Calcium 8.5 L Phosphorus 6.6 H Magnesium 2.1 Total Bilirubin 0.8 AST 49 H ALT 329 H Alkaline Phosphatase 215 H Total Protein 6.2 L Albumin 3.1 L Globulin 3.1 Albumin/Globulin Ratio 1.0 Fingerstick Blood Sugar Results: 252 Critical Care Progress Note - Nutrition Nutrition: Nutrition Category Date Time Status NPO Diet [DIET] Diets 09/09/17 Dinner Active Assessment/Plan - Assessment and Plan (Free Text) Assessment: This is a 76 year old female with a history of ESRD on HD, CHF, DM, HTN, hypercholesterolemia, and some sort of OR years before, repeated TIAs, and colon CA. She was brought in by family for altered mental status and ultimately found to have severe metabolic acidosis as well as a extremely elevated troponins. Neurology: -Patient is awake and alert -Extubated yesterday -Swallow eval and PT eval ordered Cardiology: -NSTEMI -Family is currently refusing for intervention for coronary. -Will need to discuss goals of care with the family, palliative care on board -Heparin drip discontinued yesterday -Continue Crestor 20mg PO HS, Aspirin 81mg daily -Continue Metoprolol 25mg PO BID -HR 120s this morning, given Lopressor 5mg IVP x 1 -Cardiology on consult, help appreciated Pulmonary: -Extubated yesterday, sating well on ventimask -Treating for Acute hypoxemic respiratory failure, respiratory acidosis from acute pulmonary edema and pneumonia -CXR: Moderate venous congestion. Moderate loculated pleural effusion with consolidative changes in the left mid to lower lung zone, cardiomegaly. -Solumedrol 40mg IVP daily Hematology: -Continue Ferrous sulfate 325mg PO TID GI: -NPO for permacath placement today -Sennakot daily and Ducolax suppository ordered -AST/ALT elevated likely secondary to shock liver, currently trending down -Will continue to monitor, avoid hepatotoxic agents Renal: -Continue Epoetin -Continue Hemodialysis as regularly scheduled (MWF) -Vascular surgery on consult, help appreciated -Nephrology on consult, f/u recommendations Endocrine: -History of diabetes mellitus -Continue Lantus 5 units SC HS -ISS, accuchecks Infectious Disease: -Antibiotics: Aztreonam 1gm Q12H, Flagyl 500mg Q8H -Leukocytosis 19.3 -> 25.9, on Solumedrol currently -Procalcitonin ordered, plan to culture catheter tip -Blood cultures have been negative -Infectious disease on consult, f/u recommendations GI/DVT ppx: -Heparin 5000 units Q8H [facility] -Protonix 40mg PO daily Plan discussed with Dr Camargo <Piotr Camargo - Last Filed: 09/10/17 17:23> CCU Objective - Vital Signs / Intake & Output Vital Signs (Last 4 hours): Vital Signs Temp Pulse Resp BP Pulse Ox 09/10/17 17:00 107 H 15 100 09/10/17 16:45 93 H 12 100 09/10/17 16:40 101 H 12 100/55 L 100 09/10/17 16:30 91 H 13 100 09/10/17 16:15 93 H 12 100 09/10/17 16:05 107 H 11 L 94/52 L 100 09/10/17 16:00 97.4 F L 93 H 13 100 09/10/17 15:50 111 H 12 101/41 L 99 09/10/17 15:35 90 11 L 95/47 L 99 09/10/17 15:20 113 H 11 L 91/62 L 99 09/10/17 15:06 117 H 12 102/63 99 09/10/17 15:00 125 H 12 98 09/10/17 14:45 97.5 F L 129 H 12 142/88 97 Intake and Output (Last 8hrs): Intake & Output 09/10/17 09/10/17 09/10/17 06:59 14:59 22:59 Intake Total 300 200 0 Output Total 0 Balance 300 200 0 Weight 158 lb 1.143 oz Intake: Intake, IV Amount 300 200 Right Proximal Port 300 200 Internal Jugular Oral 0 0 Output: Urine 0 Urine, Voided 0 Stool 0 Other: # Bowel Movements 1 - Medications Active Medications: Active Medications Generic Name Dose Route Start Last Admin Trade Name Freq PRN Reason Stop Dose Admin Albuterol/Ipratropium 3 ml 09/04/17 16:00 09/10/17 11:13 Duoneb 3 Mg/0.5 Mg (3 Ml) Ud INH 3 ml RQ4 [facility] Administration Aspirin 81 mg 08/30/17 10:00 09/10/17 10:05 Aspirin Chewable PO Not Given DAILY [facility] Diltiazem HCl 30 mg 09/10/17 07:00 09/10/17 13:00 Cardizem PO Not Given Q6H [facility] Epoetin Alan 10,000 unit 09/09/17 10:30 09/09/17 10:28 Procrit IV 10,000 unit [facility] Administration Ferrous Gluconate 324 mg 08/31/17 10:00 09/10/17 15:04 Fergon PO Not Given TID [facility] Heparin Sodium (Porcine) 5,000 units 09/09/17 14:00 09/10/17 14:00 Heparin SC Not Given Q8 [facility] Hydromorphone HCl 0.5 mg 09/10/17 14:50 Dilaudid IVP Q6H PRN Pain, moderate (4-7) Aztreonam 1 gm/ Sodium 100 mls @ 100 mls/hr 09/06/17 01:30 09/10/17 12:55 Chloride IVPB 100 mls/hr Q12H [facility] Administration Metronidazole 500 mg in 100 mls @ 100 mls/hr 09/08/17 14:00 09/10/17 14:00 Flagyl IVPB 100 mls/hr Q8 [facility] Administration Vancomycin HCl 1 gm/ Sodium 200 mls @ 166.7 mls/hr 09/09/17 16:00 09/09/17 18 :12 Chloride IVPB 166.7 mls/hr [facility] Administration Protocol Insulin Aspart 0 unit 09/01/17 11:49 09/10/17 12:00 Novolog SC Not Given Q6 [facility] Protocol Insulin Glargine 5 unit 09/03/17 22:00 09/09/17 23:47 Lantus SC 5 u HS [facility] Administration Methylprednisolone 40 mg 09/09/17 10:00 09/10/17 10:04 Solu-Medrol IVP 09/12/17 10:01 40 mg DAILY [facility] Administration Metoprolol Tartrate 25 mg 09/06/17 08:00 09/10/17 10:04 Lopressor PO Not Given BID [facility] Pantoprazole Sodium 40 mg 09/10/17 10:00 09/10/17 10:04 Protonix Inj IVP 40 mg DAILY [facility] Administration Paricalcitol 2 mcg 09/09/17 09:00 09/09/17 10:28 Zemplar IV 2 mcg MWF [facility] Administration Rosuvastatin Calcium 5 mg 08/30/17 01:15 09/09/17 21:24 Crestor PO 5 mg HS [facility] Administration Sennosides 8.6 mg 09/10/17 10:00 09/10/17 10:06 Senokot Tab NG Not Given DAILY [facility] Vitamin B Complex/Vit C/Folic Acid 1 tab 08/31/17 08:00 09/10/17 08:00 Nephro-Kamron PO Not Given 0800 [facility] - Patient Studies Lab Studies: Microbiology Studies 09/10/17 11:30 Gram Stain - Preliminary Trachasp Lab Studies 09/10/17 09/10/17 09/10/17 Range/Units 11:55 10:19 10:19 WBC (4.8-10.8) K/uL RBC (3.80-5.20) Mil/uL Hgb (11.0-16.0) g/dL Hct (34.0-47.0) % MCV (81.0-99.0) fL MCH (27.0-31.0) pg MCHC (33.0-37.0) g/dL RDW (11.5-14.5) % Plt Count (130-400) K/uL MPV (7.2-11.7) fL Neut % (Auto) (50.0-75.0) % Lymph % (Auto) (20.0-40.0) % [place] % (Auto) (0.0-10.0) % Eos % (Auto) (0.0-4.0) % Baso % (Auto) (0.0-2.0) % Neut # (Auto) (1.8-7.0) K/uL Lymph # (Auto) (1.0-4.3) K/uL [place] # (Auto) (0.0-0.8) K/uL Eos # (Auto) (0.0-0.7) K/uL Baso # (Auto) (0.0-0.2) K/uL Neutrophils % (Manual) (50-75) % Lymphocytes % (Manual) (20-40) % Monocytes % (Manual) (0-10) % Nucleated RBC % (0-0) % Platelet Estimate (NORMAL) Polychromasia Hypochromasia (manual) Anisocytosis (manual) Target Cells Ovalocytes PT 19.0 H (9.7-12.2) SECONDS INR 1.6 APTT 27 D (21-34) SECONDS Sodium (132-148) mmol/L Potassium (3.6-5.2) mmol/L Chloride (98-107) mmol/L Carbon Dioxide (22-30) mmol/L Anion Gap (10-20) BUN (7-17) mg/dL Creatinine (0.7-1.2) mg/dL Est GFR ( Amer) Est GFR (Non-Af Amer) POC Glucose (mg/dL) 236 H (65-110) mg/dL Random Glucose (65-105) mg/dL Calcium (8.6-10.4) mg/dl Phosphorus (2.5-4.5) mg/dL Magnesium (1.6-2.3) mg/dL Total Bilirubin (0.2-1.3) mg/dL AST (14-36) U/L ALT (9-52) U/L Alkaline Phosphatase (38-126) U/L Total Protein (6.3-8.3) g/dL Albumin (3.5-5.0) g/dL Globulin (2.2-3.9) gm/dL Albumin/Globulin Ratio (1.0-2.1) Procalcitonin 6.11 H (0.19-0.49) NG/ML 09/10/17 09/10/17 09/10/17 Range/Units 05:46 05:44 05:35 WBC 25.9 H (4.8-10.8) K/uL RBC 3.50 L (3.80-5.20) Mil/uL Hgb 9.6 L (11.0-16.0) g/dL Hct 30.4 L (34.0-47.0) % MCV 86.8 (81.0-99.0) fL MCH 27.3 (27.0-31.0) pg MCHC 31.5 L (33.0-37.0) g/dL RDW 17.2 H (11.5-14.5) % Plt Count 236 (130-400) K/uL MPV 9.7 (7.2-11.7) fL Neut % (Auto) 95.5 H (50.0-75.0) % Lymph % (Auto) 1.3 L (20.0-40.0) % [place] % (Auto) 3.1 (0.0-10.0) % Eos % (Auto) 0.0 (0.0-4.0) % Baso % (Auto) 0.1 (0.0-2.0) % Neut # (Auto) 24.7 H (1.8-7.0) K/uL Lymph # (Auto) 0.3 L (1.0-4.3) K/uL [place] # (Auto) 0.8 (0.0-0.8) K/uL Eos # (Auto) 0.0 (0.0-0.7) K/uL Baso # (Auto) 0.0 (0.0-0.2) K/uL Neutrophils % (Manual) 97 H (50-75) % Lymphocytes % (Manual) 1 L (20-40) % Monocytes % (Manual) 2 (0-10) % Nucleated RBC % 2 H (0-0) % Platelet Estimate Normal (NORMAL) Polychromasia Slight Hypochromasia (manual) Slight Anisocytosis (manual) Slight Target Cells Slight Ovalocytes Slight PT (9.7-12.2) SECONDS INR APTT (21-34) SECONDS Sodium 137 (132-148) mmol/L Potassium 4.6 (3.6-5.2) mmol/L Chloride 96 L (98-107) mmol/L Carbon Dioxide 23 (22-30) mmol/L Anion Gap 22 H (10-20) BUN 78 H (7-17) mg/dL Creatinine 4.2 H (0.7-1.2) mg/dL Est GFR ( Amer) 12 Est GFR (Non-Af Amer) 10 POC Glucose (mg/dL) 252 H (65-110) mg/dL Random Glucose 253 H (65-105) mg/dL Calcium 8.5 L (8.6-10.4) mg/dl Phosphorus 6.6 H (2.5-4.5) mg/dL Magnesium 2.1 (1.6-2.3) mg/dL Total Bilirubin 0.8 (0.2-1.3) mg/dL AST 49 H (14-36) U/L ALT 329 H (9-52) U/L Alkaline Phosphatase 215 H (38-126) U/L Total Protein 6.2 L (6.3-8.3) g/dL Albumin 3.1 L (3.5-5.0) g/dL Globulin 3.1 (2.2-3.9) gm/dL Albumin/Globulin Ratio 1.0 (1.0-2.1) Procalcitonin (0.19-0.49) NG/ML 09/09/17 09/09/17 Range/Units 23:30 17:39 WBC (4.8-10.8) K/uL RBC (3.80-5.20) Mil/uL Hgb (11.0-16.0) g/dL Hct (34.0-47.0) % MCV (81.0-99.0) fL MCH (27.0-31.0) pg MCHC (33.0-37.0) g/dL RDW (11.5-14.5) % Plt Count (130-400) K/uL MPV (7.2-11.7) fL Neut % (Auto) (50.0-75.0) % Lymph % (Auto) (20.0-40.0) % [place] % (Auto) (0.0-10.0) % Eos % (Auto) (0.0-4.0) % Baso % (Auto) (0.0-2.0) % Neut # (Auto) (1.8-7.0) K/uL Lymph # (Auto) (1.0-4.3) K/uL [place] # (Auto) (0.0-0.8) K/uL Eos # (Auto) (0.0-0.7) K/uL Baso # (Auto) (0.0-0.2) K/uL Neutrophils % (Manual) (50-75) % Lymphocytes % (Manual) (20-40) % Monocytes % (Manual) (0-10) % Nucleated RBC % (0-0) % Platelet Estimate (NORMAL) Polychromasia Hypochromasia (manual) Anisocytosis (manual) Target Cells Ovalocytes PT (9.7-12.2) SECONDS INR APTT (21-34) SECONDS Sodium (132-148) mmol/L Potassium (3.6-5.2) mmol/L Chloride (98-107) mmol/L Carbon Dioxide (22-30) mmol/L Anion Gap (10-20) BUN (7-17) mg/dL Creatinine (0.7-1.2) mg/dL Est GFR ( Amer) Est GFR (Non-Af Amer) POC Glucose (mg/dL) 233 H 192 H (65-110) mg/dL Random Glucose (65-105) mg/dL Calcium (8.6-10.4) mg/dl Phosphorus (2.5-4.5) mg/dL Magnesium (1.6-2.3) mg/dL Total Bilirubin (0.2-1.3) mg/dL AST (14-36) U/L ALT (9-52) U/L Alkaline Phosphatase (38-126) U/L Total Protein (6.3-8.3) g/dL Albumin (3.5-5.0) g/dL Globulin (2.2-3.9) gm/dL Albumin/Globulin Ratio (1.0-2.1) Procalcitonin (0.19-0.49) NG/ML Laboratory Results - last 24 hr 09/09/17 09/09/17 09/10/17 17:39 23:30 05:35 WBC RBC Hgb Hct MCV MCH MCHC RDW Plt Count MPV Neut % (Auto) Lymph % (Auto) [place] % (Auto) Eos % (Auto) Baso % (Auto) Neut # (Auto) Lymph # (Auto) [place] # (Auto) Eos # (Auto) Baso # (Auto) Neutrophils % (Manual) Lymphocytes % (Manual) Monocytes % (Manual) Nucleated RBC % Platelet Estimate Polychromasia Hypochromasia (manual) Anisocytosis (manual) Target Cells Ovalocytes PT INR APTT Sodium Potassium Chloride Carbon Dioxide Anion Gap BUN Creatinine Est GFR ( Amer) Est GFR (Non-Af Amer) POC Glucose (mg/dL) 192 H 233 H 252 H Random Glucose Calcium Phosphorus Magnesium Total Bilirubin AST ALT Alkaline Phosphatase Total Protein Albumin Globulin Albumin/Globulin Ratio Procalcitonin 09/10/17 09/10/17 09/10/17 05:44 05:46 10:19 WBC 25.9 H RBC 3.50 L Hgb 9.6 L Hct 30.4 L MCV 86.8 MCH 27.3 MCHC 31.5 L RDW 17.2 H Plt Count 236 MPV 9.7 Neut % (Auto) 95.5 H Lymph % (Auto) 1.3 L [place] % (Auto) 3.1 Eos % (Auto) 0.0 Baso % (Auto) 0.1 Neut # (Auto) 24.7 H Lymph # (Auto) 0.3 L [place] # (Auto) 0.8 Eos # (Auto) 0.0 Baso # (Auto) 0.0 Neutrophils % (Manual) 97 H Lymphocytes % (Manual) 1 L Monocytes % (Manual) 2 Nucleated RBC % 2 H Platelet Estimate Normal Polychromasia Slight Hypochromasia (manual) Slight Anisocytosis (manual) Slight Target Cells Slight Ovalocytes Slight PT INR APTT Sodium 137 Potassium 4.6 Chloride 96 L Carbon Dioxide 23 Anion Gap 22 H BUN 78 H Creatinine 4.2 H Est GFR ( Amer) 12 Est GFR (Non-Af Amer) 10 POC Glucose (mg/dL) Random Glucose 253 H Calcium 8.5 L Phosphorus 6.6 H Magnesium 2.1 Total Bilirubin 0.8 AST 49 H ALT 329 H Alkaline Phosphatase 215 H Total Protein 6.2 L Albumin 3.1 L Globulin 3.1 Albumin/Globulin Ratio 1.0 Procalcitonin 6.11 H 18 09/10/17 10:19 11:55 WBC RBC Hgb Hct MCV MCH MCHC RDW Plt Count MPV Neut % (Auto) Lymph % (Auto) [place] % (Auto) Eos % (Auto) Baso % (Auto) Neut # (Auto) Lymph # (Auto) [place] # (Auto) Eos # (Auto) Baso # (Auto) Neutrophils % (Manual) Lymphocytes % (Manual) Monocytes % (Manual) Nucleated RBC % Platelet Estimate Polychromasia Hypochromasia (manual) Anisocytosis (manual) Target Cells Ovalocytes PT 19.0 H INR 1.6 APTT 27 D Sodium Potassium Chloride Carbon Dioxide Anion Gap BUN Creatinine Est GFR ( Amer) Est GFR (Non-Af Amer) POC Glucose (mg/dL) 236 H Random Glucose Calcium Phosphorus Magnesium Total Bilirubin AST ALT Alkaline Phosphatase Total Protein Albumin Globulin Albumin/Globulin Ratio Procalcitonin Critical Care Progress Note - Nutrition Nutrition: Nutrition Category Date Time Status NPO Diet [DIET] Diets 09/09/17 Dinner Active Attending/Attestation - Attestation I have personally seen and examined this patient.: Yes I have fully participated in the care of the patient.: Yes I have reviewed all pertinent clinical information: Yes Notes (Text): 09/10/17 17:22 patient seen and examinedin the intensive care unit. Status post permacath placement today Extubated yesterday and no respiratory distress Continue present treatment
[2017-09-10] MEDS ORDERED: Sodium Chloride 0.9% 250 ML IV ONE (13:30)
[2017-09-10] MEDS ORDERED: Esmolol 100 mg/10ml Inj IV ONE (14:08)
--- NOTE | 2017-09-10 14:09 | CP.PCM.PN ---
Subjective - Date & Time of Evaluation Date of Evaluation: 09/10/17 Time of Evaluation: 14:06 - Subjective Subjective: Nephrology Consultation: Assessment: critical CKD stage 5 (N18.5) with hyperkalemia, acidosis now has ESRD on HD via [facility] pulm edema, CHF, NSTEMI, pleural effusions, pneumonia AMS, hyperglycemia s/p cardiac arrest, shock liver, A fib Diabetic chronic Kidney Disease (E11.22) Hypertensive Chronic Kidney Disease (I12.9) Anemia (D64.9), Hyperphosphatemia (E83.39), Secondary Hyperparathyroidism (E21.1 ), HTN (I12.9), vit D insuff, hx of colon CA, TIAs Plan HD Tomorrow as ordered. She is planned for permacath insertion today, no acute need for dialysis today maintain hemodynamic stable. Patient not on ACEI/ARB due to low BP. off midodrine started iron supplements, MVI, epogen with HD, and zemplar 2 mcg with HD. d/c oral vit d ID and cardiology following Dose meds/antibiotics for ESRD/HD status. Avoid fleets enema/magnesium based laxatives. Avoid nephrotoxins/NSAIDs Glycemic control Further work up/management as per primary team farm worker consult for outpatient dialysis placement. Thanks for allowing me to participate in care of your patient. Will follow patient with you. Please call if any Qs. Dr Edson Norton Office: [phone] Chief Complaint; unable to obtain reason for consult: CKD management source of Info: EMR HPI: Pt is a 76 F with hx of diabetes Mellitus ( years), hypertension (years), CHF, TIA, Colon CA, CKD stage 4/5, has matured AVG in left arm presented with complaints of AMS and hyperglycemia as brought by family. now has elevated trop 100, hyperkalemia, AMS and elevated sugar, pulm edema. renal consult for CKD management. pt with AMS unable to provide any hx. she had received medical management for hyperkalemia. ROS: unable to obtain Physical Examination: Daughter bedside General Appearance: ill appearing, on O2 via face mask Vitals reviewed and noted as below Head; Atraumatic, normocephalic ENT: On O2 by facemask EYES: PERRLA Neck; supple no lymphadenopathy, no thyromegaly or bruit Lungs: Normal respiratory rate/effort. Breath sounds bilateral clear, she is mechanically ventilated Heart: Normal rate. s1s2 normal. No rub or gallop. Extremities: no edema. No varicose veins. chronic hyperpigmented changes in legs Neurological: Patient is awake follows commands, Not much communicative verbally Skin: Warm and dry. Normal turgor. No rash. Palpitation: Normal elasticity for age Abdomen: Abdomen is soft. Bowel sounds +. There is no abdominal tenderness, no guarding/rigidity no organomegaly Psych: unable MSK: no joint tenderness or swelling. Digits and nails normal, no deformity : kidney or bladder not palpable Access: Left AVG without bruit. [facility] Labs/imaging reviewed. Past medical history, past surgical history, family history, social history, allergy reviewed and noted as below Family hx: no hx of CKD. Rest non-contributory Objective - Vital Signs/Intake and Output Vital Signs (last 24 hours): Temp Pulse Resp BP Pulse Ox 98.3 F 97 H 18 117/86 100 09/10/17 12:00 09/10/17 13:00 09/10/17 13:00 09/10/17 12:59 09/10/17 13:00 Intake and Output: 09/10/17 09/10/17 06:59 18:59 Intake Total 350 100 Output Total 0 Balance 350 100 - Medications Medications: Current Medications Albuterol/Ipratropium (Duoneb 3 Mg/0.5 Mg (3 Ml) Ud) 3 ml INH RQ4 [facility] Last Admin: 09/10/17 11:13 Dose: 3 ml Aspirin (Aspirin Chewable) 81 mg PO DAILY [facility] Last Admin: 09/10/17 10:05 Dose: Not Given Diltiazem HCl (Cardizem) 30 mg PO Q6H [facility] Last Admin: 09/10/17 07:00 Dose: Not Given Epoetin Alan (Procrit) 10,000 unit IV MWF [facility] Last Admin: 09/09/17 10:28 Dose: 10,000 unit Ferrous Gluconate (Fergon) 324 mg PO TID [facility] Last Admin: 09/10/17 10:05 Dose: Not Given Heparin Sodium (Porcine) (Heparin) 5,000 units SC Q8 [facility] Last Admin: 09/10/17 05:35 Dose: Not Given Aztreonam 1 gm/ Sodium (Chloride) 100 mls @ 100 mls/hr IVPB Q12H [facility] Last Admin: 09/10/17 12:55 Dose: 100 mls/hr Metronidazole (Flagyl) 500 mg in 100 mls @ 100 mls/hr IVPB Q8 [facility] Last Admin: 09/10/17 06:05 Dose: 100 mls/hr Vancomycin HCl 1 gm/ Sodium (Chloride) 200 mls @ 166.7 mls/hr IVPB MWF [facility] PRN Reason: Protocol Last Admin: 09/09/17 18:12 Dose: 166.7 mls/hr Insulin Aspart (Novolog) 0 unit SC Q6 [facility] PRN Reason: Protocol Last Admin: 09/10/17 12:00 Dose: Not Given Insulin Glargine (Lantus) 5 unit SC [facility] Last Admin: 09/09/17 23:47 Dose: 5 u Methylprednisolone (Solu-Medrol) 40 mg IVP DAILY [facility] Stop: 09/12/17 10:01 Last Admin: 09/10/17 10:04 Dose: 40 mg Metoprolol Tartrate (Lopressor) 25 mg PO BID [facility] Last Admin: 09/10/17 10:04 Dose: Not Given Pantoprazole Sodium (Protonix Inj) 40 mg IVP DAILY [facility] Last Admin: 09/10/17 10:04 Dose: 40 mg Paricalcitol (Zemplar) 2 mcg IV [facility] Last Admin: 09/09/17 10:28 Dose: 2 mcg Rosuvastatin Calcium (Crestor) 5 mg PO [facility] Last Admin: 09/09/17 21:24 Dose: 5 mg Sennosides (Senokot Tab) 8.6 mg NG DAILY [facility] Last Admin: 09/10/17 10:06 Dose: Not Given Vitamin B Complex/Vit C/Folic Acid (Nephro-Kamron) 1 tab PO 0800 [facility] Last Admin: 09/10/17 08:00 Dose: Not Given - Labs Labs: 09/10/17 05:46 09/10/17 05:44 PT 19.0 SECONDS (9.7-12.2) H 09/10/17 10:19 INR 1.6 09/10/17 10:19 APTT 27 SECONDS (21-34) D 09/10/17 10:19
--- NOTE | 2017-09-10 14:47 | PCM.SURG1 ---
Surgeon's Initial Post Op Note - Surgeon's Notes Surgeon: Dr. Quinonez Face Worker: Irasema PGY1; Alley MS3 Type of Anesthesia: IV Sedation, Local Pre-Operative Diagnosis: Chronic Kidney Disease Operative Findings: see operative report Post-Operative Diagnosis: same Operation Performed: Left IJ wire transfer Permacath placement Specimen/Specimens Removed: Catheter tip culture Estimated Blood Loss: EBL {In ML}: 10 Blood Products Given: N/A Drains Used: No Drains Post-Op Condition: Fair Date of Surgery/Procedure: 09/10/17 Time of Surgery/Procedure: 14:46
--- NOTE | 2017-09-10 14:47 | CP.PCM.PN ---
Subjective - Date & Time of Evaluation Date of Evaluation: 09/10/17 Time of Evaluation: 09:30 - Subjective Subjective: Seen and examined patient is awake and responsive.Lying comfortable and doing good Going for permacath today Objective - Vital Signs/Intake and Output Vital Signs (last 24 hours): Temp Pulse Resp BP Pulse Ox 98.3 F 97 H 18 117/86 100 09/10/17 12:00 09/10/17 13:00 09/10/17 13:00 09/10/17 12:59 09/10/17 13:00 Intake and Output: 09/10/17 09/10/17 06:59 18:59 Intake Total 350 100 Output Total 0 Balance 350 100 - Medications Medications: Current Medications Albuterol/Ipratropium (Duoneb 3 Mg/0.5 Mg (3 Ml) Ud) 3 ml INH RQ4 [facility] Last Admin: 09/10/17 11:13 Dose: 3 ml Aspirin (Aspirin Chewable) 81 mg PO DAILY [facility] Last Admin: 09/10/17 10:05 Dose: Not Given Diltiazem HCl (Cardizem) 30 mg PO Q6H [facility] Last Admin: 09/10/17 07:00 Dose: Not Given Epoetin Alan (Procrit) 10,000 unit IV MWF [facility] Last Admin: 09/09/17 10:28 Dose: 10,000 unit Ferrous Gluconate (Fergon) 324 mg PO TID [facility] Last Admin: 09/10/17 10:05 Dose: Not Given Heparin Sodium (Porcine) (Heparin) 5,000 units SC Q8 [facility] Last Admin: 09/10/17 05:35 Dose: Not Given Aztreonam 1 gm/ Sodium (Chloride) 100 mls @ 100 mls/hr IVPB Q12H [facility] Last Admin: 09/10/17 12:55 Dose: 100 mls/hr Metronidazole (Flagyl) 500 mg in 100 mls @ 100 mls/hr IVPB Q8 [facility] Last Admin: 09/10/17 06:05 Dose: 100 mls/hr Vancomycin HCl 1 gm/ Sodium (Chloride) 200 mls @ 166.7 mls/hr IVPB MWF [facility] PRN Reason: Protocol Last Admin: 09/09/17 18:12 Dose: 166.7 mls/hr Insulin Aspart (Novolog) 0 unit SC Q6 [facility] PRN Reason: Protocol Last Admin: 09/10/17 12:00 Dose: Not Given Insulin Glargine (Lantus) 5 unit SC [facility] Last Admin: 09/09/17 23:47 Dose: 5 u Methylprednisolone (Solu-Medrol) 40 mg IVP DAILY [facility] Stop: 09/12/17 10:01 Last Admin: 09/10/17 10:04 Dose: 40 mg Metoprolol Tartrate (Lopressor) 25 mg PO BID [facility] Last Admin: 09/10/17 10:04 Dose: Not Given Pantoprazole Sodium (Protonix Inj) 40 mg IVP DAILY [facility] Last Admin: 09/10/17 10:04 Dose: 40 mg Paricalcitol (Zemplar) 2 mcg IV MWF [facility] Last Admin: 09/09/17 10:28 Dose: 2 mcg Rosuvastatin Calcium (Crestor) 5 mg PO [facility] Last Admin: 09/09/17 21:24 Dose: 5 mg Sennosides (Senokot Tab) 8.6 mg NG DAILY [facility] Last Admin: 09/10/17 10:06 Dose: Not Given Vitamin B Complex/Vit C/Folic Acid (Nephro-Kamron) 1 tab PO 0800 [facility] Last Admin: 09/10/17 08:00 Dose: Not Given - Labs Labs: 09/10/17 05:46 09/10/17 05:44 PT 19.0 SECONDS (9.7-12.2) H 09/10/17 10:19 INR 1.6 09/10/17 10:19 APTT 27 SECONDS (21-34) D 09/10/17 10:19 - Constitutional Appears: No Acute Distress - Head Exam Head Exam: NORMAL INSPECTION - Eye Exam Eye Exam: Normal appearance - ENT Exam ENT Exam: Mucous Membranes Moist - Neck Exam Neck Exam: Full ROM - Respiratory Exam Respiratory Exam: Clear to Ausculation Bilateral, NORMAL BREATHING PATTERN - Cardiovascular Exam Cardiovascular Exam: REGULAR RHYTHM - GI/Abdominal Exam GI & Abdominal Exam: Soft, Normal Bowel Sounds - Extremities Exam Extremities Exam: Full ROM - Back Exam Back Exam: NORMAL INSPECTION - Neurological Exam Neurological Exam: Alert. absent: Altered (responsive,hoarseness of voice) - Psychiatric Exam Psychiatric exam: Normal Mood - Skin Skin Exam: Dry Assessment and Plan - Assessment and Plan (Free Text) Assessment: This is a 76 year old female with a history of ESRD now getting HD, CHF, DM, HTN , hypercholesterolemia, and some sort of UT years before, repeated TIAs, and colon CA. She was brought in by family for altered mental status and ultimately found to have severe metabolic acidosis as well as a extremely elevated troponins. Plan: 1 Acute NSTEMI , Asystol ,CPR / Sustained VT 09/10-onasprin and statin 09/09: Heparin drip discontinued 09/07: I had long conversation with POA Annmarie Stauffer and per the POA the patient indicated to them no cardiac catherization. I explained to POA that considering the weakened heart function it may prove very difficult to successfully extubate patient. At this moment she remains on heparin ggt, getting HD, and also weaning trials 09/06: Cardiac catherization was canceled 09/05: Potentially cardiac catherization shortly from now. Remains on heparin ggt 09/04: atrial fibrillation appearance on telemetry, check a new 12 lead EKG. Remains on heparin ggt. 09/03: Remains in heparin ggt, statin, ASA. Hopefully at some point can have cardiac catherization. 09/02: Now off pressor medications. She remains on amiodarone Echo EF 15 to 20%. 2 Respiratory failure, intubation 09/10 Saturating well on nasal cannula 4l 09/09 Weaning trial.chest xray looks better. Just switched to CPAP 09/08: She may end up needing a trach and or PEG if she is not able to be successfully extubated 09/07: Again became tachycardic at night and was switched from PS/CPAP settings back to PRVC. Family is aware that it will be difficult to extubate 09/06: Back on PRVC after having tachy cardia 09/05: Has tolerated CPAP settings throughout the night 09/04: Yesterday afternoon she was moved back to PRVC 09/03: Now changed to CPAP/PS settings. The chest XRAYs look better this morning following HD last night. 3 Atrial Fibrillation 09/09 Patient has CHADS-VA score 8. has high CHADS score . INR is 1.6. I will start on Coumadin 10mg tonight without heparin drip bridge.Check INR tomorrow.If INR < 1.5 tomorrow may need brighe with heparin drip. I will folow woth DR Alcala. Spoke to DR Cunningham. patient refuses cath/intervension family aware of the risk of life threatening arrhythmia 09/07: remains in atrial fibrillation. On heparin and loppressor BID 09/06: Continue on heparin ggt, Lopressor increased to 25 BID 4 Acute renal failure on chronic renal disease/Now ESRD on HD 09/10-s/p L IJpermacath. left shiley removed 09/09-HD today 09/05: Toleratated HD well yesterday 09/04: Currently MWF HD 09/03: Underwent HD yesterday and tolerated it well. CXRAY looks better 09/02/2017: She has had one session of HD so far. Vintatyana another session today 5 Leukocytosis concerning for sepsis 09/10 on Aztreonam ,vanco and flagyl.follow ID cultures negative 09/03: Today decreased WBC. Cultures negative so far 09/02/2017: The elevated WBC maybe stress related. She remains on abx Aztreonam IV and Flagyl IV 6 Acute systolic heart failure 09/03: Monitor chest XRAYs. ECHO shows EF 15 to 20% follow cardio 7 Pleural effusion 09/05: Still present on CXRAYs. Continue to moniotp 09/03: Improving CXRAYs 09/02/2017: Pleural effusions minimal at this time. Continue to monitor 8 Hyperglycemia and uncontrolled DM 09/03: Reccent accucheks 130s, 130, 160 9 Anemia of chronic disease, CKD 09/03: Yesterday had 1 unit of PRBC given during HD, receiving EPO 10.DVT prophylaxis on heparin and GI prophylaxis on protonix
[2017-09-10] MEDS ORDERED: HYDROmorphone 0.5 mg/0.5 ml ISec IVP PRN (14:50)
--- NOTE | 2017-09-10 16:00 | RAD ---
PROCEDURE: Intraoperative Fluoroscopy. HISTORY: RENAL FAILURE FINDINGS: Fluoroscopic assistance was provided for left-sided dialysis catheter insertion. Please refer to the operative report from SHREYA Hernandez.
--- NOTE | 2017-09-10 16:24 | RAD ---
HISTORY: s/p Permacath placement COMPARISON: 09/10/2017 at 6:55 a.m. FINDINGS: LUNGS: Vaguely rounded opacity at right base. Follow up to clearing to exclude underlying neoplasm. Hazy opacity lower portion of both lungs, unchanged on right and improved compared to earlier examination of the same date on the left side. PLEURA: Small left pleural effusion. No evidence of right pleural effusion. CARDIOVASCULAR: Normal heart size. Right IJ central venous catheter. Left tunneled central venous dialysis catheter. Mitral annular calcification. OSSEOUS STRUCTURES: No significant abnormalities. VISUALIZED UPPER ABDOMEN: Normal. OTHER FINDINGS: None. IMPRESSION: Hazy opacity lower portion of both lungs. Rounded opacity at right base. Followup to clearing to exclude neoplasm. Small left pleural effusion. Lines and tubes unchanged.
--- NOTE | 2017-09-10 21:21 | CP.PCM.PN ---
Subjective - Date & Time of Evaluation Date of Evaluation: 09/10/17 Time of Evaluation: 03:30 - Subjective Subjective: dictated Objective - Vital Signs/Intake and Output Vital Signs (last 24 hours): Temp Pulse Resp BP Pulse Ox 97.7 F 104 H 14 116/77 100 09/10/17 20:00 09/10/17 21:00 09/10/17 21:00 09/10/17 20:57 09/10/17 21:00 Intake and Output: 09/10/17 09/11/17 18:59 06:59 Intake Total 220 0 Output Total 0 Balance 220 0 - Medications Medications: Current Medications Albuterol/Ipratropium (Duoneb 3 Mg/0.5 Mg (3 Ml) Ud) 3 ml INH RQ4 [facility] Last Admin: 09/10/17 19:07 Dose: 3 ml Aspirin (Aspirin Chewable) 81 mg PO DAILY [facility] Last Admin: 09/10/17 10:05 Dose: Not Given Diltiazem HCl (Cardizem) 30 mg PO Q6H [facility] Last Admin: 09/10/17 19:28 Dose: 30 mg Epoetin Alan (Procrit) 10,000 unit IV MWF [facility] Last Admin: 09/09/17 10:28 Dose: 10,000 unit Ferrous Gluconate (Fergon) 324 mg PO TID [facility] Last Admin: 09/10/17 18:03 Dose: 324 mg Heparin Sodium (Porcine) (Heparin) 5,000 units SC Q8 [facility] Last Admin: 09/10/17 14:00 Dose: Not Given Hydromorphone HCl (Dilaudid) 0.5 mg IVP Q6H PRN PRN Reason: Pain, moderate (4-7) Aztreonam 1 gm/ Sodium (Chloride) 100 mls @ 100 mls/hr IVPB Q12H [facility] Last Admin: 09/10/17 12:55 Dose: 100 mls/hr Metronidazole (Flagyl) 500 mg in 100 mls @ 100 mls/hr IVPB Q8 [facility] Last Admin: 09/10/17 14:00 Dose: 100 mls/hr Vancomycin HCl 1 gm/ Sodium (Chloride) 200 mls @ 166.7 mls/hr IVPB F [facility] PRN Reason: Protocol Last Admin: 09/09/17 18:12 Dose: 166.7 mls/hr Insulin Aspart (Novolog) 0 unit SC Q6 [facility] PRN Reason: Protocol Last Admin: 09/10/17 18:01 Dose: Not Given Insulin Glargine (Lantus) 5 unit SC [facility] Last Admin: 09/09/17 23:47 Dose: 5 u Methylprednisolone (Solu-Medrol) 40 mg IVP DAILY [facility] Stop: 09/12/17 10:01 Last Admin: 09/10/17 10:04 Dose: 40 mg Metoprolol Tartrate (Lopressor) 25 mg PO BID [facility] Last Admin: 09/10/17 18:03 Dose: 25 mg Pantoprazole Sodium (Protonix Inj) 40 mg IVP DAILY [facility] Last Admin: 09/10/17 10:04 Dose: 40 mg Paricalcitol (Zemplar) 2 mcg IV MWF [facility] Last Admin: 09/09/17 10:28 Dose: 2 mcg Rosuvastatin Calcium (Crestor) 5 mg PO [facility] Last Admin: 09/09/17 21:24 Dose: 5 mg Sennosides (Senokot Tab) 8.6 mg NG DAILY [facility] Last Admin: 09/10/17 10:06 Dose: Not Given Vitamin B Complex/Vit C/Folic Acid (Nephro-Kamron) 1 tab PO 0800 [facility] Last Admin: 09/10/17 08:00 Dose: Not Given Warfarin Sodium (Coumadin) 10 mg PO 1800 [facility] Stop: 09/11/17 18:01 - Labs Labs: 09/10/17 05:46 09/10/17 05:44 PT 19.0 SECONDS (9.7-12.2) H 09/10/17 10:19 INR 1.6 09/10/17 10:19 APTT 27 SECONDS (21-34) D 09/10/17 10:19
[2017-09-10] MEDS: (Lantus) Insulin Glargine, Recombinant SC SCH (22:25)
--- NOTE | 2017-09-10 23:27 | OP ---
PROCEDURE DATE: 09/10/2017 PREOPERATIVE DIAGNOSIS: Renal failure. POSTOPERATIVE DIAGNOSIS: Renal failure. PROCEDURE CARRIED OUT: Removal of jugular vein catheter and placement of Perm-A-Cath via left internal jugular vein. SURGEON: Dev Quinonez Jr., MD SIDE PULLER: Dr. Riaz Villalpando. ANESTHESIOLOGIST: Mr. Massey. INDICATIONS: The patient is an older middle aged woman with renal insufficiency, carotid shunt, had a temporary catheter placed. She was in poor condition, needs Perm-A-Cath. OPERATIVE FINDINGS: An 0.035 wire was placed through the old catheter which was then removed. She was dilated and passed over this and then a new catheter positioned into the superior vena cava, originated on the left chest wall, went to the left internal jugular vein and terminated in the superior vena cava. It was flushed with heparinized saline and secured to the skin with silk sutures. Blood loss of procedure was 25 mL. Operation carried out, Perm-A-Cath left jugular vein. Dev Quinonez Jr., MD
[2017-09-11] MEDS: Albuterol-Ipratrop 3 mg / 0.5 (3 ml) UD INH SCH ×6 (00:14→19:15)
[2017-09-11] MEDS: (Novolog) Insulin Aspart, Recombinant 100 u/ml 10 ml vial SC SCH ×4 (00:28→17:55)
--- NOTE | 2017-09-11 00:55 | PN ---
DATE: 09/10/2017 SUBJECTIVE: The patient was seen today. She got a new subclavian catheter on the left side for dialysis. She was very drowsy, probably sedated, and was mouth breathing. She has been extubated. NG tube was out too. OBJECTIVE: VITAL SIGNS: T-max is 97.7, heart rate of 104, blood pressure 111/71, respirations 19. HEENT: Head is atraumatic but she is very drowsy. NECK: Supple. LUNGS: Clear. Bilateral rhonchi, however, probably conducted sounds as she was breathing by mouth. HEART: S1, S2 is irregularly irregular. ABDOMEN: Soft, nontender. No guarding, no rigidity present. EXTREMITIES: Had bilateral foot protectors, [employer] boots. LABORATORY DATA: Labs are noted. Labs show white count today was 25.9, hemoglobin 9.6, hematocrit 30.4, platelet count is 236. Her white count is increased in spite of being on antibiotic. She does have a triple lumen on the right side now, and the sputum culture is pending from 09/10, which we will follow. At this time, she is on vancomycin, Flagyl, and Azactam. The white count could be related to the steroids also as she is on it, but she has been extubated, has a new dialysis catheter, and we will follow and may need to pull out the lines. If she continues to have increased white count, also to look for any diarrhea or C. diff. X-ray was done today which showed a hazy opacity of lower lobe portion of both lungs, rounded opacity at right base. Followup to clearing to exclude neoplasm, small left pleural effusion, lines and tubes unchanged. So, we will follow, but clinically we will continue antibiotics for today, and we will see if we need to change them or to discontinue them but I need to bring this white count down. Karissa Adams MD
[2017-09-11] MEDS: Aztreonam 1 GM in Sodium Chloride 0.9% 100 ML IVPB SCH (01:00)
[2017-09-11] MEDS: metroNIDAZOLE IV 500 mg/100 ml 500 MG/100 ML BAG IVPB SCH (05:54)
[2017-09-11 06:26] LABS: BASO # 0.1 K/uL (0.0-0.2); BASO % 0.3 % (0.0-2.0); HEMOGLOBIN 8.9 g/dL (11.0-16.0); LYMPH # 0.3 K/uL (1.0-4.3); LYMPH % 1.3 % (20.0-40.0); MEAN CORPUSCULAR HEMOGLOBIN 27.4 pg (27.0-31.0); MEAN CORPUSCULAR HGB CONC 31.9 g/dL (33.0-37.0); MEAN PLATELET VOLUME 9.7 fL (7.2-11.7); MONO # 0.6 K/uL (0.0-0.8); MONO % 3.3 % (0.0-10.0); NEUT # 17.9 K/uL (1.8-7.0); NEUT % 95.1 % (50.0-75.0); NRBC % 0.1 % (0.0-2.0); PLATELET COUNT 214 K/uL (130-400); RBC 3.25 Mil/uL (3.80-5.20); RED CELL DISTRIBUTION WIDTH 17.3 % (11.5-14.5); WHITE BLOOD COUNT 18.8 K/uL (4.8-10.8)
[2017-09-11 06:38] LABS: INR 1.7; PROTHROMBIN TIME 19.2 SECONDS (9.7-12.2)
[2017-09-11 06:42] LABS: ALBUMIN 2.9 g/dL (3.5-5.0); CALCIUM 8.7 mg/dl (8.6-10.4)
[2017-09-11] MEDS: Multivitamin Vitamin B Complex (Nephro-Vite) Tab PO SCH (07:50)
--- NOTE | 2017-09-11 08:43 | CP.PCM.PN ---
Subjective - Date & Time of Evaluation Date of Evaluation: 09/11/17 Time of Evaluation: 08:30 - Subjective Subjective: Seen and examined. Patient is awake and responsive with hoarse voice. Denies pain. lying comfortable No distress. Afib with rate around 90ies Swallowing study not done yesterday. She was drowsy after Permcath d/w RN. Objective - Vital Signs/Intake and Output Vital Signs (last 24 hours): Temp Pulse Resp BP Pulse Ox 97.9 F 91 H 17 116/57 L 100 09/11/17 08:00 09/11/17 08:00 09/11/17 08:00 09/11/17 07:57 09/11/17 08:00 Intake and Output: 09/11/17 09/11/17 06:59 18:59 Intake Total 400 0 Output Total 0 0 Balance 400 0 - Medications Medications: Current Medications Albuterol/Ipratropium (Duoneb 3 Mg/0.5 Mg (3 Ml) Ud) 3 ml INH RQ4 [facility] Last Admin: 09/11/17 07:25 Dose: 3 ml Aspirin (Aspirin Chewable) 81 mg PO DAILY [facility] Last Admin: 09/10/17 10:05 Dose: Not Given Diltiazem HCl (Cardizem) 30 mg PO Q6H [facility] Last Admin: 09/11/17 06:25 Dose: 30 mg Epoetin Alan (Procrit) 10,000 unit IV MWF [facility] Last Admin: 09/09/17 10:28 Dose: 10,000 unit Ferrous Gluconate (Fergon) 324 mg PO TID [facility] Last Admin: 09/10/17 18:03 Dose: 324 mg Heparin Sodium (Porcine) (Heparin) 5,000 units SC Q8 [facility] Last Admin: 09/11/17 06:21 Dose: 5,000 units Hydromorphone HCl (Dilaudid) 0.5 mg IVP Q6H PRN PRN Reason: Pain, moderate (4-7) Aztreonam 1 gm/ Sodium (Chloride) 100 mls @ 100 mls/hr IVPB Q12H [facility] Last Admin: 09/11/17 01:00 Dose: 100 mls/hr Metronidazole (Flagyl) 500 mg in 100 mls @ 100 mls/hr IVPB Q8 [facility] Last Admin: 09/11/17 05:54 Dose: 100 mls/hr Vancomycin HCl 1 gm/ Sodium (Chloride) 200 mls @ 166.7 mls/hr IVPB MWF [facility] PRN Reason: Protocol Last Admin: 09/09/17 18:12 Dose: 166.7 mls/hr Insulin Aspart (Novolog) 0 unit SC Q6 [facility] PRN Reason: Protocol Last Admin: 09/11/17 06:22 Dose: Not Given Insulin Glargine (Lantus) 5 unit SC [facility] Last Admin: 09/10/17 22:25 Dose: 5 u Methylprednisolone (Solu-Medrol) 40 mg IVP DAILY [facility] Stop: 09/12/17 10:01 Last Admin: 09/10/17 10:04 Dose: 40 mg Metoprolol Tartrate (Lopressor) 25 mg PO BID [facility] Last Admin: 09/10/17 18:03 Dose: 25 mg Pantoprazole Sodium (Protonix Inj) 40 mg IVP DAILY [facility] Last Admin: 09/10/17 10:04 Dose: 40 mg Paricalcitol (Zemplar) 2 mcg IV MWF [facility] Last Admin: 09/09/17 10:28 Dose: 2 mcg Rosuvastatin Calcium (Crestor) 5 mg PO [facility] Last Admin: 09/10/17 21:38 Dose: Not Given Sennosides (Senokot Tab) 8.6 mg NG DAILY [facility] Last Admin: 09/10/17 10:06 Dose: Not Given Vitamin B Complex/Vit C/Folic Acid (Nephro-[place]) 1 tab PO 0800 [facility] Last Admin: 09/11/17 07:50 Dose: 1 tab Warfarin Sodium (Coumadin) 5 mg PO 1800 [facility] Stop: 09/11/17 18:01 - Labs Labs: 09/11/17 06:10 09/11/17 06:10 PT 19.2 SECONDS (9.7-12.2) H 09/11/17 06:10 INR 1.7 09/11/17 06:10 APTT 27 SECONDS (21-34) D 09/10/17 10:19 - Constitutional Appears: No Acute Distress, Chronically Ill - Head Exam Head Exam: NORMAL INSPECTION - Eye Exam Eye Exam: Normal appearance - ENT Exam ENT Exam: Mucous Membranes Moist - Neck Exam Neck Exam: Full ROM - Respiratory Exam Respiratory Exam: Clear to Ausculation Bilateral, NORMAL BREATHING PATTERN - Cardiovascular Exam Cardiovascular Exam: Irregular Rhythm - GI/Abdominal Exam GI & Abdominal Exam: Soft, Normal Bowel Sounds - Extremities Exam Extremities Exam: Full ROM. absent: Tenderness - Neurological Exam Neurological Exam: Awake - Psychiatric Exam Psychiatric exam: Normal Affect, Normal Mood - Skin Skin Exam: Dry, Normal Color Assessment and Plan - Assessment and Plan (Free Text) Assessment: This is a 76 year old female with a history of ESRD now getting HD, CHF, DM, HTN , hypercholesterolemia, and some sort of LA years before, repeated TIAs, and colon CA. She was brought in by family for altered mental status and ultimately found to have severe metabolic acidosis as well as a extremely elevated troponins. S/P cardiac arrest,VT,Vifb and s/p extubation.Has afib Plan: 1 Acute NSTEMI , Asystol ,CPR / Sustained VT 09/11 --Continue asprin,cardizem and metoprolol. On coumadin for afib 09/09: Heparin drip discontinued 09/07: I had long conversation with POA Annmarie Stauffer and per the POA the patient indicated to them no cardiac catherization. I explained to POA that considering the weakened heart function it may prove very difficult to successfully extubate patient. At this moment she remains on heparin ggt, getting HD, and also weaning trials 09/06: Cardiac catherization was canceled 09/05: Potentially cardiac catherization shortly from now. Remains on heparin ggt 09/04: atrial fibrillation appearance on telemetry, check a new 12 lead EKG. Remains on heparin ggt. 09/03: Remains in heparin ggt, statin, ASA. Hopefully at some point can have cardiac catherization. 09/02: Now off pressor medications. She remains on amiodarone Echo EF 15 to 20%. 2 Respiratory failure, intubation 09/10 Saturating well on nasal cannula 4l 09/09 Weaning trial.chest xray looks better. Just switched to CPAP 09/08: She may end up needing a trach and or PEG if she is not able to be successfully extubated 09/07: Again became tachycardic at night and was switched from PS/CPAP settings back to PRVC. Family is aware that it will be difficult to extubate 09/06: Back on PRVC after having tachy cardia 09/05: Has tolerated CPAP settings throughout the night 09/04: Yesterday afternoon she was moved back to PRVC 09/03: Now changed to CPAP/PS settings. The chest XRAYs look better this morning following HD last night. 3 Atrial Fibrillation 09/11-She is in afib . Patient has CHADS-VA score 8. has high CHADS score . INR today 1.7 Coumadin 5mg tonight without heparin bridge 09/07: remains in atrial fibrillation. On heparin and loppressor BID 09/06: Continue on heparin ggt, Lopressor increased to 25 BID 4 Acute renal failure on chronic renal disease/Now ESRD on HD -Planning for dialysis today 09/10-s/p L IJpermacath. left shiley removed 09/09-HD today 09/05: Toleratated HD well yesterday 09/04: Currently MWF HD 09/03: Underwent HD yesterday and tolerated it well. CXRAY looks better 09/02/2017: She has had one session of HD so far. Likley another session today 5 Leukocytosis concerning for sepsis 09/11-Continue antibiotics.seen by Dr schultz yesterday. Has high procalcitonin 6.1. WBC is high /18 today 09/10 on Aztreonam ,vanco and flagyl.follow ID cultures negative 09/03: Today decreased WBC. Cultures negative so far 09/02/2017: The elevated WBC maybe stress related. She remains on abx Aztreonam IV and Flagyl IV 6 Acute systolic heart failure Patient refuses cardiac cath. has high risk for arrhythmia and poor prognosis lying without sob 09/03: Monitor chest XRAYs. ECHO shows EF 15 to 20% follow cardio 7 Pleural effusion 09/05: Still present on CXRAYs. Continue to moniotp 09/03: Improving CXRAYs 09/02/2017: Pleural effusions minimal at this time. Continue to monitor 8 Hyperglycemia and uncontrolled DM 09/03: Reccent accucheks 130s, 130, 160 9 Anemia of chronic disease, CKD 09/03: Yesterday had 1 unit of PRBC given during HD, receiving EPO 10.DVT prophylaxis on heparin and GI prophylaxis on protonix Pending swallowing evaluation to start on diet.
[2017-09-11 09:01] LABS: ANISOCYTOSIS SLIGHT; HYPOCHROMIC SLIGHT; LYMPHOCYTE 3 % (20-40); MONOCYTE 2 % (0-10); NEUTROPHIL 95 % (50-75); PLATELET ESTIMATE NORMAL (NORMAL); POLYCHROMIC SLIGHT; TARGET CELLS SLIGHT; TOTAL CELLS COUNTED 100
[2017-09-11 09:02] LABS: BURR CELLS SLIGHT; OVALOCYTES SLIGHT; TEARDROP CELLS SLIGHT
[2017-09-11] MEDS: MethylPREDNISolone 40 mg Vial IVP SCH (09:18)
[2017-09-11] MEDS: Epoetin Alfa 10,000 unit/ml Dialysis IV SCH (11:18)
--- NOTE | 2017-09-11 11:40 | CP.CCUPN ---
<Nicole Basurto - Last Filed: 09/11/17 11:49> CCU Subjective - Physician Review Subjective (Free Text): 09/11/17 11:38 Patient seen and examined at bedside. Per nursing no acute events overnight. Patient was started on Coumadin yesterday for afib. Plan was to transfer patient to telemetry floor however patient is not tolerating dialysis at this time. BPs 80s/40-50s with HR up to 140s. Will discontine hemodialysis at this time and cancel transfer. CCU Objective - Vital Signs / Intake & Output Vital Signs (Last 4 hours): Vital Signs Temp Pulse Resp BP Pulse Ox 09/11/17 10:00 97 H 18 100 09/11/17 09:57 99 H 19 115/67 100 09/11/17 09:55 97.5 F L 94 H 18 115/67 09/11/17 09:30 88 15 100 09/11/17 09:18 106/57 L 09/11/17 09:00 92 H 17 100 09/11/17 08:57 97 H 18 106/57 L 100 09/11/17 08:30 106 H 18 100 09/11/17 08:00 97.9 F 91 H 17 100 09/11/17 07:57 90 14 116/57 L 100 Intake and Output (Last 8hrs): Intake & Output 09/10/17 09/11/17 09/11/17 22:59 06:59 14:59 Intake Total 120 300 60 Output Total 0 0 0 Balance 120 300 60 Weight 71.7 kg Intake: Intake, IV Amount 100 200 Right Proximal Port 100 200 Internal Jugular Oral 20 100 60 Output: Urine 0 0 Urine, Voided 0 0 Stool 0 0 - Physical Exam Head: Positive for: Atraumatic, Normocephalic. Negative for: Tenderness, Contusion, Swelling Pupils: Positive for: PERRL. Negative for: Sluggish, Non-Reactive Extroacular Muscles: Positive for: EOMI Conjunctiva: Positive for: Normal Mouth: Positive for: Dry Pharnyx: Positive for: Normal Nose (External): Positive for: Atraumatic Neck: Positive for: Trachea Midline, Other (R IJ central line, dialysis catheter on the left). Negative for: JVD Respiratory/Chest: Positive for: Good Air Exchange, Decreased Breath Sounds (on bilateral bases). Negative for: Wheezes Cardiovascular: Positive for: Tachycardic Abdomen: Positive for: Normal Bowel Sounds. Negative for: Peritoneal Signs Upper Extremity: Negative for: Cyanosis, Edema Lower Extremity: Negative for: Edema Skin: Positive for: Warm, Dry Psychiatric: Positive for: Alert - Medications Active Medications: Active Medications Generic Name Dose Route Start Last Admin Trade Name Freq PRN Reason Stop Dose Admin Albuterol/Ipratropium 3 ml 09/04/17 16:00 09/11/17 11:15 Duoneb 3 Mg/0.5 Mg (3 Ml) Ud INH 3 ml RQ4 CAROLYNE Administration Aspirin 81 mg 08/30/17 10:00 09/11/17 09:18 Aspirin Chewable PO 81 mg DAILY CAROLYNE Administration Diltiazem HCl 30 mg 09/10/17 07:00 09/11/17 06:25 Cardizem PO 30 mg Q6H CAROLYNE Administration Epoetin Alan 10,000 unit 09/09/17 10:30 09/11/17 11:18 Procrit IV 10,000 unit [facility] Administration Ferrous Gluconate 324 mg 08/31/17 10:00 09/11/17 09:20 Fergon PO 324 mg TID CAROLYNE Administration Hydromorphone HCl 0.5 mg 09/10/17 14:50 Dilaudid IVP Q6H PRN Pain, moderate (4-7) Metronidazole 500 mg in 100 mls @ 100 mls/hr 09/08/17 14:00 09/11/17 05:54 Flagyl IVPB 100 mls/hr Q8 CAROLYNE Administration Vancomycin HCl 1 gm/ Sodium 200 mls @ 166.7 mls/hr 09/09/17 16:00 09/09/17 18 :12 Chloride IVPB 166.7 mls/hr MWF [facility] Administration Protocol Insulin Aspart 0 unit 09/01/17 11:49 09/11/17 06:22 Novolog SC Not Given Q6 [facility] Protocol Insulin Glargine 5 unit 09/03/17 22:00 09/10/17 22:25 Lantus SC 5 u HS CAROLYNE Administration Methylprednisolone 40 mg 09/09/17 10:00 09/11/17 09:18 Solu-Medrol IVP 09/12/17 10:01 40 mg DAILY [facility] Administration Metoprolol Tartrate 25 mg 09/06/17 08:00 09/11/17 09:18 Lopressor PO 25 mg BID CAROLYNE Administration Pantoprazole Sodium 40 mg 09/10/17 10:00 09/11/17 09:18 Protonix Inj IVP 40 mg DAILY CAROLYNE Administration Paricalcitol 2 mcg 09/09/17 09:00 09/09/17 10:28 Zemplar IV 2 mcg MWF CAROLYNE Administration Rosuvastatin Calcium 5 mg 08/30/17 01:15 09/10/17 21:38 Crestor PO Not Given HS [facility] Sennosides 8.6 mg 09/10/17 10:00 09/11/17 09:20 Senokot Tab NG 8.6 mg DAILY CAROLYNE Administration Sevelamer Carbonate 800 mg 09/11/17 12:00 Renvela PO TIDCC [facility] Vitamin B Complex/Vit C/Folic Acid 1 tab 08/31/17 08:00 09/11/17 07:50 Nephro-Kamron PO 1 tab 0800 CAROLYNE Administration Warfarin Sodium 5 mg 09/11/17 18:00 Coumadin PO 09/11/17 18:01 1800 [facility] - Patient Studies Lab Studies: Microbiology Studies 09/10/17 11:30 Gram Stain - Preliminary Trachasp Sputum Culture - Preliminary Gram Negative Charles Lab Studies 09/11/17 09/11/17 09/11/17 Range/Units 06:10 06:10 06:10 WBC 18.8 H (4.8-10.8) K/uL RBC 3.25 L (3.80-5.20) Mil/uL Hgb 8.9 L (11.0-16.0) g/dL Hct 28.0 L (34.0-47.0) % MCV 86.0 (81.0-99.0) fL MCH 27.4 (27.0-31.0) pg MCHC 31.9 L (33.0-37.0) g/dL RDW 17.3 H (11.5-14.5) % Plt Count 214 (130-400) K/uL MPV 9.7 (7.2-11.7) fL Neut % (Auto) 95.1 H (50.0-75.0) % Lymph % (Auto) 1.3 L (20.0-40.0) % Mchenry % (Auto) 3.3 (0.0-10.0) % Eos % (Auto) 0.0 (0.0-4.0) % Baso % (Auto) 0.3 (0.0-2.0) % Neut # (Auto) 17.9 H (1.8-7.0) K/uL Lymph # (Auto) 0.3 L (1.0-4.3) K/uL Mchenry # (Auto) 0.6 (0.0-0.8) K/uL Eos # (Auto) 0.0 (0.0-0.7) K/uL Baso # (Auto) 0.1 (0.0-0.2) K/uL Neutrophils % (Manual) 95 H (50-75) % Lymphocytes % (Manual) 3 L (20-40) % Monocytes % (Manual) 2 (0-10) % Platelet Estimate Normal (NORMAL) Polychromasia Slight Hypochromasia (manual) Slight Anisocytosis (manual) Slight Target Cells Slight Tear Drop Cells Slight Ovalocytes Slight [place] Cells Slight PT 19.2 H (9.7-12.2) SECONDS INR 1.7 Sodium 135 (132-148) mmol/L Potassium 5.0 (3.6-5.2) mmol/L Chloride 98 (98-107) mmol/L Carbon Dioxide 22 (22-30) mmol/L Anion Gap 20 (10-20) BUN 98 H (7-17) mg/dL Creatinine 5.5 H (0.7-1.2) mg/dL Est GFR ( Amer) 9 Est GFR (Non-Af Amer) 8 POC Glucose (mg/dL) (65-110) mg/dL Random Glucose 279 H (65-105) mg/dL Calcium 8.7 (8.6-10.4) mg/dl Phosphorus 9.2 H (2.5-4.5) mg/dL Magnesium 2.3 (1.6-2.3) mg/dL Total Bilirubin 0.8 (0.2-1.3) mg/dL AST 32 (14-36) U/L ALT 245 H D (9-52) U/L Alkaline Phosphatase 160 H D (38-126) U/L Total Protein 5.8 L (6.3-8.3) g/dL Albumin 2.9 L (3.5-5.0) g/dL Globulin 2.9 (2.2-3.9) gm/dL Albumin/Globulin Ratio 1.0 (1.0-2.1) Procalcitonin (0.19-0.49) NG/ML 09/11/17 09/10/17 09/10/17 Range/Units 05:24 23:20 17:31 WBC (4.8-10.8) K/uL RBC (3.80-5.20) Mil/uL Hgb (11.0-16.0) g/dL Hct (34.0-47.0) % MCV (81.0-99.0) fL MCH (27.0-31.0) pg MCHC (33.0-37.0) g/dL RDW (11.5-14.5) % Plt Count (130-400) K/uL MPV (7.2-11.7) fL Neut % (Auto) (50.0-75.0) % Lymph % (Auto) (20.0-40.0) % Mchenry % (Auto) (0.0-10.0) % Eos % (Auto) (0.0-4.0) % Baso % (Auto) (0.0-2.0) % Neut # (Auto) (1.8-7.0) K/uL Lymph # (Auto) (1.0-4.3) K/uL Mchenry # (Auto) (0.0-0.8) K/uL Eos # (Auto) (0.0-0.7) K/uL Baso # (Auto) (0.0-0.2) K/uL Neutrophils % (Manual) (50-75) % Lymphocytes % (Manual) (20-40) % Monocytes % (Manual) (0-10) % Platelet Estimate (NORMAL) Polychromasia Hypochromasia (manual) Anisocytosis (manual) Target Cells Tear Drop Cells Ovalocytes Elías Cells PT (9.7-12.2) SECONDS INR Sodium (132-148) mmol/L Potassium (3.6-5.2) mmol/L Chloride (98-107) mmol/L Carbon Dioxide (22-30) mmol/L Anion Gap (10-20) BUN (7-17) mg/dL Creatinine (0.7-1.2) mg/dL Est GFR ( Amer) Est GFR (Non-Af Amer) POC Glucose (mg/dL) 288 H 292 H 294 H (65-110) mg/dL Random Glucose (65-105) mg/dL Calcium (8.6-10.4) mg/dl Phosphorus (2.5-4.5) mg/dL Magnesium (1.6-2.3) mg/dL Total Bilirubin (0.2-1.3) mg/dL AST (14-36) U/L ALT (9-52) U/L Alkaline Phosphatase (38-126) U/L Total Protein (6.3-8.3) g/dL Albumin (3.5-5.0) g/dL Globulin (2.2-3.9) gm/dL Albumin/Globulin Ratio (1.0-2.1) Procalcitonin (0.19-0.49) NG/ML 09/10/17 09/10/17 Range/Units 11:55 10:19 WBC (4.8-10.8) K/uL RBC (3.80-5.20) Mil/uL Hgb (11.0-16.0) g/dL Hct (34.0-47.0) % MCV (81.0-99.0) fL MCH (27.0-31.0) pg MCHC (33.0-37.0) g/dL RDW (11.5-14.5) % Plt Count (130-400) K/uL MPV (7.2-11.7) fL Neut % (Auto) (50.0-75.0) % Lymph % (Auto) (20.0-40.0) % [place]henry % (Auto) (0.0-10.0) % Eos % (Auto) (0.0-4.0) % Baso % (Auto) (0.0-2.0) % Neut # (Auto) (1.8-7.0) K/uL Lymph # (Auto) (1.0-4.3) K/uL [place]ry # (Auto) (0.0-0.8) K/uL Eos # (Auto) (0.0-0.7) K/uL Baso # (Auto) (0.0-0.2) K/uL Neutrophils % (Manual) (50-75) % Lymphocytes % (Manual) (20-40) % Monocytes % (Manual) (0-10) % Platelet Estimate (NORMAL) Polychromasia Hypochromasia (manual) Anisocytosis (manual) Target Cells Tear Drop Cells Ovalocytes Elías Cells PT (9.7-12.2) SECONDS INR Sodium (132-148) mmol/L Potassium (3.6-5.2) mmol/L Chloride (98-107) mmol/L Carbon Dioxide (22-30) mmol/L Anion Gap (10-20) BUN (7-17) mg/dL Creatinine (0.7-1.2) mg/dL Est GFR ( Amer) Est GFR (Non-Af Amer) POC Glucose (mg/dL) 236 H (65-110) mg/dL Random Glucose (65-105) mg/dL Calcium (8.6-10.4) mg/dl Phosphorus (2.5-4.5) mg/dL Magnesium (1.6-2.3) mg/dL Total Bilirubin (0.2-1.3) mg/dL AST (14-36) U/L ALT (9-52) U/L Alkaline Phosphatase (38-126) U/L Total Protein (6.3-8.3) g/dL Albumin (3.5-5.0) g/dL Globulin (2.2-3.9) gm/dL Albumin/Globulin Ratio (1.0-2.1) Procalcitonin 6.11 H (0.19-0.49) NG/ML Laboratory Results - last 24 hr 09/10/17 09/10/17 09/10/17 10:19 11:55 17:31 WBC RBC Hgb Hct MCV MCH MCHC RDW Plt Count MPV Neut % (Auto) Lymph % (Auto) [place] % (Auto) Eos % (Auto) Baso % (Auto) Neut # (Auto) Lymph # (Auto) [place] # (Auto) Eos # (Auto) Baso # (Auto) Neutrophils % (Manual) Lymphocytes % (Manual) Monocytes % (Manual) Platelet Estimate Polychromasia Hypochromasia (manual) Anisocytosis (manual) Target Cells Tear Drop Cells Ovalocytes [place] Cells PT INR Sodium Potassium Chloride Carbon Dioxide Anion Gap BUN Creatinine Est GFR ( Amer) Est GFR (Non-Af Amer) POC Glucose (mg/dL) 236 H 294 H Random Glucose Calcium Phosphorus Magnesium Total Bilirubin AST ALT Alkaline Phosphatase Total Protein Albumin Globulin Albumin/Globulin Ratio Procalcitonin 6.11 H 09/10/17 09/11/17 09/11/17 23:20 05:24 06:10 WBC 18.8 H RBC 3.25 L Hgb 8.9 L Hct 28.0 L MCV 86.0 MCH 27.4 MCHC 31.9 L RDW 17.3 H Plt Count 214 MPV 9.7 Neut % (Auto) 95.1 H Lymph % (Auto) 1.3 L Mchenry % (Auto) 3.3 Eos % (Auto) 0.0 Baso % (Auto) 0.3 Neut # (Auto) 17.9 H Lymph # (Auto) 0.3 L [place]henry # (Auto) 0.6 Eos # (Auto) 0.0 Baso # (Auto) 0.1 Neutrophils % (Manual) 95 H Lymphocytes % (Manual) 3 L Monocytes % (Manual) 2 Platelet Estimate Normal Polychromasia Slight Hypochromasia (manual) Slight Anisocytosis (manual) Slight Target Cells Slight Tear Drop Cells Slight Ovalocytes Slight Elías Cells Slight PT INR Sodium Potassium Chloride Carbon Dioxide Anion Gap BUN Creatinine Est GFR ( Amer) Est GFR (Non-Af Amer) POC Glucose (mg/dL) 292 H 288 H Random Glucose Calcium Phosphorus Magnesium Total Bilirubin AST ALT Alkaline Phosphatase Total Protein Albumin Globulin Albumin/Globulin Ratio Procalcitonin 09/11/17 09/11/17 06:10 06:10 WBC RBC Hgb Hct MCV MCH MCHC RDW Plt Count MPV Neut % (Auto) Lymph % (Auto) [place] % (Auto) Eos % (Auto) Baso % (Auto) Neut # (Auto) Lymph # (Auto) [place]hen[place] # (Auto) Eos # (Auto) Baso # (Auto) Neutrophils % (Manual) Lymphocytes % (Manual) Monocytes % (Manual) Platelet Estimate Polychromasia Hypochromasia (manual) Anisocytosis (manual) Target Cells Tear Drop Cells Ovalocytes Elías Cells PT 19.2 H INR 1.7 Sodium 135 Potassium 5.0 Chloride 98 Carbon Dioxide 22 Anion Gap 20 BUN 98 H Creatinine 5.5 H Est GFR ( Amer) 9 Est GFR (Non-Af Amer) 8 POC Glucose (mg/dL) Random Glucose 279 H Calcium 8.7 Phosphorus 9.2 H Magnesium 2.3 Total Bilirubin 0.8 AST 32 ALT 245 H D Alkaline Phosphatase 160 H D Total Protein 5.8 L Albumin 2.9 L Globulin 2.9 Albumin/Globulin Ratio 1.0 Procalcitonin Fingerstick Blood Sugar Results: 288 Critical Care Progress Note - Nutrition Nutrition: Nutrition Category Date Time Status NPO Diet [DIET] Diets 09/09/17 Dinner Active Assessment/Plan - Assessment and Plan (Free Text) Assessment: This is a 76 year old female with a history of ESRD on HD, CHF, DM, HTN, hypercholesterolemia, and some sort of CT years before, repeated TIAs, and colon CA. She was brought in by family for altered mental status and ultimately found to have severe metabolic acidosis as well as a extremely elevated troponins. Neurology: -Patient is awake and alert -Sating well on NC -Swallow eval and PT eval ordered Cardiology: -NSTEMI, Hx of afib -Family is currently refusing for intervention for coronary. -Will need to discuss goals of care with the family, palliative care on board -Patient started on coumadin for a fib -Continue Crestor 20mg PO HS, Aspirin 81mg daily -Continue Cardizem 30mg PO Q6H -Continue Metoprolol 25mg PO BID -HR 140s with hypotension during dialysis, will stop dialysis at this time and monitor -Cardiology on consult, help appreciated Pulmonary: -Extubated, sating well on nasal cannula -Treating for Acute hypoxemic respiratory failure, respiratory acidosis from acute pulmonary edema and pneumonia -CXR: Moderate venous congestion. Moderate loculated pleural effusion with consolidative changes in the left mid to lower lung zone, cardiomegaly. -Solumedrol 40mg IVP daily -Sputum culture growing gram negative rods, awaiting sensitivities Hematology: -Continue Ferrous sulfate 325mg PO TID GI: -Sennakot daily and Ducolax suppository ordered -AST/ALT elevated likely secondary to shock liver, currently trending down -Will continue to monitor, avoid hepatotoxic agents Renal: -S/P permacath placement yesterday -Continue Epoetin -Started on Renvela -Continue Hemodialysis as regularly scheduled (MWF) -Social work consult placed, patient will need [facility] dialysis -Vascular surgery on consult, help appreciated -Nephrology on consult, f/u recommendations Endocrine: -History of diabetes mellitus -Continue Lantus 5 units SC HS -ISS, accuchecks Infectious Disease: -Permacath tip sent for culture -Sputum culture growing gram negative rods, awaiting sensitivities -Antibiotics: Aztreonam 1gm Q12H, Flagyl 500mg Q8H -Leukocytosis improving 18.8 -Procalcitonin 6.11 -Blood cultures have been negative -Infectious disease on consult, f/u recommendations GI/DVT ppx: -Heparin 5000 units Q8H SC -Protonix 40mg PO daily Plan discussed with Dr Camargo <Piotr Camargo - Last Filed: 09/11/17 18:08> CCU Objective - Vital Signs / Intake & Output Vital Signs (Last 4 hours): Vital Signs Temp Pulse Resp BP Pulse Ox 09/11/17 17:33 96 H 25 H 80/38 L 86 L 09/11/17 17:17 78 25 H 69/35 L 85 L 09/11/17 17:14 71 26 H 69/37 L 09/11/17 17:01 87 27 H 89 L 09/11/17 17:00 82 27 H 09/11/17 16:30 96 H 17 96 09/11/17 16:00 97.6 F 91 H 18 97 09/11/17 15:59 95 H 21 111/62 93 L 09/11/17 15:30 97 H 16 100 09/11/17 15:00 97 H 19 100 09/11/17 14:59 86 17 110/65 100 09/11/17 14:30 97 H 22 100 09/11/17 14:01 101 H 15 114/63 96 09/11/17 14:00 110 H 17 95 Intake and Output (Last 8hrs): Intake & Output 09/11/17 09/11/17 09/11/17 06:59 14:59 22:59 Intake Total 300 213 127 Output Total 0 0 0 Balance 300 213 127 Weight 158 lb 1.143 oz Intake: Intake, IV Amount 200 133 67 Right Proximal Port 200 133 67 Internal Jugular Oral 100 60 Tube Feeding 20 60 Output: Urine 0 0 0 Urine, Voided 0 0 0 Stool 0 - Medications Active Medications: Active Medications Generic Name Dose Route Start Last Admin Trade Name Freq PRN Reason Stop Dose Admin Albuterol/Ipratropium 3 ml 09/04/17 16:00 09/11/17 11:15 Duoneb 3 Mg/0.5 Mg (3 Ml) Ud INH 3 ml RQ4 CAROLYNE Administration Aspirin 81 mg 08/30/17 10:00 09/11/17 09:18 Aspirin Chewable PO 81 mg DAILY [facility] Administration Diltiazem HCl 30 mg 09/10/17 07:00 09/11/17 13:19 Cardizem PO 30 mg Q6H CAROLYNE Administration Epoetin Alan 10,000 unit 09/09/17 10:30 09/11/17 11:18 Procrit IV 10,000 unit [facility] Administration Ferrous Gluconate 324 mg 08/31/17 10:00 09/11/17 13:19 Fergon PO 324 mg TID [facility] Administration Heparin Sodium (Porcine) 1,000 units 09/11/17 09:00 09/11/17 11:40 Heparin IVP 3.9 units [facility] Administration Hydromorphone HCl 0.5 mg 09/10/17 14:50 Dilaudid IVP Q6H PRN Pain, moderate (4-7) Vancomycin HCl 1 gm/ Sodium 200 mls @ 166.7 mls/hr 09/09/17 16:00 09/11/17 13 :24 Chloride IVPB 166.7 mls/hr [facility] Administration Protocol Aztreonam 1 gm/ Sodium 100 mls @ 100 mls/hr 09/12/17 13:55 Chloride IVPB 09/12/17 14:54 MWF ONE Protocol Norepinephrine Bitartrate 4 mg 254 mls @ 15.24 mls/hr 09/11/17 17:30 17:33 / Sodium Chloride IV 10 mcg/min .[id number] PRN 38.1 mls/hr TITRATE PER MD ORDER Administration Protocol 4 MCG/MIN Insulin Aspart 0 unit 09/01/17 11:49 09/11/17 12:18 Novolog SC 4 unit Q6 [facility] Administration Protocol Insulin Glargine 5 unit 09/03/17 22:00 09/10/17 22:25 Lantus SC 5 u HS [facility] Administration Methylprednisolone 40 mg 09/09/17 10:00 09/11/17 09:18 Solu-Medrol IVP 09/12/17 10:01 40 mg DAILY [facility] Administration Metoprolol Tartrate 25 mg 09/06/17 08:00 09/11/17 09:18 Lopressor PO 25 mg BID [facility]NE Administration Pantoprazole Sodium 40 mg 09/10/17 10:00 09/11/17 09:18 Protonix Inj IVP 40 mg DAILY [facility]NE Administration Paricalcitol 2 mcg 09/09/17 09:00 09/11/17 11:55 Zemplar IV 2 mcg MWF [facility] Administration Rosuvastatin Calcium 5 mg 08/30/17 01:15 09/10/17 21:38 Crestor PO Not Given HS [facility]OLYNE Sennosides 8.6 mg 09/10/17 10:00 09/11/17 09:20 Senokot Tab NG 8.6 mg DAILY [facility] Administration Sevelamer Carbonate 800 mg 09/11/17 12:00 09/11/17 13:02 Renvela PO Not Given TIDCC [facility] Vitamin B Complex/Vit C/Folic Acid 1 tab 08/31/17 08:00 09/11/17 07:50 Nephro-Kamron PO 1 tab 0800 [facility] Administration Warfarin Sodium 5 mg 09/11/17 18:00 Coumadin PO 09/11/17 18:01 1800 [facility] - Patient Studies Lab Studies: Microbiology Studies 09/10/17 12:18 Catheter Tip Culture - Preliminary Catheter Tip No growth. 09/10/17 11:30 Gram Stain - Preliminary Trachasp Sputum Culture - Preliminary Gram Negative Charles Lab Studies 09/11/17 09/11/17 09/11/17 Range/Units 17:20 11:47 06:10 WBC (4.8-10.8) K/uL RBC (3.80-5.20) Mil/uL Hgb (11.0-16.0) g/dL Hct (34.0-47.0) % MCV (81.0-99.0) fL MCH (27.0-31.0) pg MCHC (33.0-37.0) g/dL RDW (11.5-14.5) % Plt Count (130-400) K/uL MPV (7.2-11.7) fL Neut % (Auto) (50.0-75.0) % Lymph % (Auto) (20.0-40.0) % [place] % (Auto) (0.0-10.0) % Eos % (Auto) (0.0-4.0) % Baso % (Auto) (0.0-2.0) % Neut # (Auto) (1.8-7.0) K/uL Lymph # (Auto) (1.0-4.3) K/uL [place] # (Auto) (0.0-0.8) K/uL Eos # (Auto) (0.0-0.7) K/uL Baso # (Auto) (0.0-0.2) K/uL Neutrophils % (Manual) (50-75) % Lymphocytes % (Manual) (20-40) % Monocytes % (Manual) (0-10) % Platelet Estimate (NORMAL) Polychromasia Hypochromasia (manual) Anisocytosis (manual) Target Cells Tear Drop Cells Ovalocytes Elías Cells PT 19.2 H (9.7-12.2) SECONDS INR 1.7 Sodium (132-148) mmol/L Potassium (3.6-5.2) mmol/L Chloride (98-107) mmol/L Carbon Dioxide (22-30) mmol/L Anion Gap (10-20) BUN (7-17) mg/dL Creatinine (0.7-1.2) mg/dL Est GFR ( Amer) Est GFR (Non-Af Amer) POC Glucose (mg/dL) 276 H 227 H (65-110) mg/dL Random Glucose (65-105) mg/dL Calcium (8.6-10.4) mg/dl Phosphorus (2.5-4.5) mg/dL Magnesium (1.6-2.3) mg/dL Total Bilirubin (0.2-1.3) mg/dL AST (14-36) U/L ALT (9-52) U/L Alkaline Phosphatase (38-126) U/L Total Protein (6.3-8.3) g/dL Albumin (3.5-5.0) g/dL Globulin (2.2-3.9) gm/dL Albumin/Globulin Ratio (1.0-2.1) 09/11/17 09/11/17 09/11/17 Range/Units 06:10 06:10 05:24 WBC 18.8 H (4.8-10.8) K/uL RBC 3.25 L (3.80-5.20) Mil/uL Hgb 8.9 L (11.0-16.0) g/dL Hct 28.0 L (34.0-47.0) % MCV 86.0 (81.0-99.0) fL MCH 27.4 (27.0-31.0) pg MCHC 31.9 L (33.0-37.0) g/dL RDW 17.3 H (11.5-14.5) % Plt Count 214 (130-400) K/uL MPV 9.7 (7.2-11.7) fL Neut % (Auto) 95.1 H (50.0-75.0) % Lymph % (Auto) 1.3 L (20.0-40.0) % [place] % (Auto) 3.3 (0.0-10.0) % Eos % (Auto) 0.0 (0.0-4.0) % Baso % (Auto) 0.3 (0.0-2.0) % Neut # (Auto) 17.9 H (1.8-7.0) K/uL Lymph # (Auto) 0.3 L (1.0-4.3) K/uL [place] # (Auto) 0.6 (0.0-0.8) K/uL Eos # (Auto) 0.0 (0.0-0.7) K/uL Baso # (Auto) 0.1 (0.0-0.2) K/uL Neutrophils % (Manual) 95 H (50-75) % Lymphocytes % (Manual) 3 L (20-40) % Monocytes % (Manual) 2 (0-10) % Platelet Estimate Normal (NORMAL) Polychromasia Slight Hypochromasia (manual) Slight Anisocytosis (manual) Slight Target Cells Slight Tear Drop Cells Slight Ovalocytes Slight Elías Cells Slight PT (9.7-12.2) SECONDS INR Sodium 135 (132-148) mmol/L Potassium 5.0 (3.6-5.2) mmol/L Chloride 98 (98-107) mmol/L Carbon Dioxide 22 (22-30) mmol/L Anion Gap 20 (10-20) BUN 98 H (7-17) mg/dL Creatinine 5.5 H (0.7-1.2) mg/dL Est GFR ( Amer) 9 Est GFR (Non-Af Amer) 8 POC Glucose (mg/dL) 288 H (65-110) mg/dL Random Glucose 279 H (65-105) mg/dL Calcium 8.7 (8.6-10.4) mg/dl Phosphorus 9.2 H (2.5-4.5) mg/dL Magnesium 2.3 (1.6-2.3) mg/dL Total Bilirubin 0.8 (0.2-1.3) mg/dL AST 32 (14-36) U/L ALT 245 H D (9-52) U/L Alkaline Phosphatase 160 H D (38-126) U/L Total Protein 5.8 L (6.3-8.3) g/dL Albumin 2.9 L (3.5-5.0) g/dL Globulin 2.9 (2.2-3.9) gm/dL Albumin/Globulin Ratio 1.0 (1.0-2.1) 09/10/17 Range/Units 23:20 WBC (4.8-10.8) K/uL RBC (3.80-5.20) Mil/uL Hgb (11.0-16.0) g/dL Hct (34.0-47.0) % MCV (81.0-99.0) fL MCH (27.0-31.0) pg MCHC (33.0-37.0) g/dL RDW (11.5-14.5) % Plt Count (130-400) K/uL MPV (7.2-11.7) fL Neut % (Auto) (50.0-75.0) % Lymph % (Auto) (20.0-40.0) % [place] % (Auto) (0.0-10.0) % Eos % (Auto) (0.0-4.0) % Baso % (Auto) (0.0-2.0) % Neut # (Auto) (1.8-7.0) K/uL Lymph # (Auto) (1.0-4.3) K/uL [place] # (Auto) (0.0-0.8) K/uL Eos # (Auto) (0.0-0.7) K/uL Baso # (Auto) (0.0-0.2) K/uL Neutrophils % (Manual) (50-75) % Lymphocytes % (Manual) (20-40) % Monocytes % (Manual) (0-10) % Platelet Estimate (NORMAL) Polychromasia Hypochromasia (manual) Anisocytosis (manual) Target Cells Tear Drop Cells Ovalocytes [place] Cells PT (9.7-12.2) SECONDS INR Sodium (132-148) mmol/L Potassium (3.6-5.2) mmol/L Chloride (98-107) mmol/L Carbon Dioxide (22-30) mmol/L Anion Gap (10-20) BUN (7-17) mg/dL Creatinine (0.7-1.2) mg/dL Est GFR ( Amer) Est GFR (Non-Af Amer) POC Glucose (mg/dL) 292 H (65-110) mg/dL Random Glucose (65-105) mg/dL Calcium (8.6-10.4) mg/dl Phosphorus (2.5-4.5) mg/dL Magnesium (1.6-2.3) mg/dL Total Bilirubin (0.2-1.3) mg/dL AST (14-36) U/L ALT (9-52) U/L Alkaline Phosphatase (38-126) U/L Total Protein (6.3-8.3) g/dL Albumin (3.5-5.0) g/dL Globulin (2.2-3.9) gm/dL Albumin/Globulin Ratio (1.0-2.1) Laboratory Results - last 24 hr 09/10/17 09/11/17 09/11/17 23:20 05:24 06:10 WBC 18.8 H RBC 3.25 L Hgb 8.9 L Hct 28.0 L MCV 86.0 MCH 27.4 MCHC 31.9 L RDW 17.3 H Plt Count 214 MPV 9.7 Neut % (Auto) 95.1 H Lymph % (Auto) 1.3 L [place] % (Auto) 3.3 Eos % (Auto) 0.0 Baso % (Auto) 0.3 Neut # (Auto) 17.9 H Lymph # (Auto) 0.3 L [place] # (Auto) 0.6 Eos # (Auto) 0.0 Baso # (Auto) 0.1 Neutrophils % (Manual) 95 H Lymphocytes % (Manual) 3 L Monocytes % (Manual) 2 Platelet Estimate Normal Polychromasia Slight Hypochromasia (manual) Slight Anisocytosis (manual) Slight Target Cells Slight Tear Drop Cells Slight Ovalocytes Slight [place] Cells Slight PT INR Sodium Potassium Chloride Carbon Dioxide Anion Gap BUN Creatinine Est GFR ( Amer) Est GFR (Non-Af Amer) POC Glucose (mg/dL) 292 H 288 H Random Glucose Calcium Phosphorus Magnesium Total Bilirubin AST ALT Alkaline Phosphatase Total Protein Albumin Globulin Albumin/Globulin Ratio 09/11/17 09/11/17 09/11/17 06:10 06:10 11:47 WBC RBC Hgb Hct MCV MCH MCHC RDW Plt Count MPV Neut % (Auto) Lymph % (Auto) [place] % (Auto) Eos % (Auto) Baso % (Auto) Neut # (Auto) Lymph # (Auto) [place] # (Auto) Eos # (Auto) Baso # (Auto) Neutrophils % (Manual) Lymphocytes % (Manual) Monocytes % (Manual) Platelet Estimate Polychromasia Hypochromasia (manual) Anisocytosis (manual) Target Cells Tear Drop Cells Ovalocytes Elías Cells PT 19.2 H INR 1.7 Sodium 135 Potassium 5.0 Chloride 98 Carbon Dioxide 22 Anion Gap 20 BUN 98 H Creatinine 5.5 H Est GFR ( Amer) 9 Est GFR (Non-Af Amer) 8 POC Glucose (mg/dL) 227 H Random Glucose 279 H Calcium 8.7 Phosphorus 9.2 H Magnesium 2.3 Total Bilirubin 0.8 AST 32 ALT 245 H D Alkaline Phosphatase 160 H D Total Protein 5.8 L Albumin 2.9 L Globulin 2.9 Albumin/Globulin Ratio 1.0 09/11/17 17:20 WBC RBC Hgb Hct MCV MCH MCHC RDW Plt Count MPV Neut % (Auto) Lymph % (Auto) Mchenry % (Auto) Eos % (Auto) Baso % (Auto) Neut # (Auto) Lymph # (Auto) Mchenry # (Auto) Eos # (Auto) Baso # (Auto) Neutrophils % (Manual) Lymphocytes % (Manual) Monocytes % (Manual) Platelet Estimate Polychromasia Hypochromasia (manual) Anisocytosis (manual) Target Cells Tear Drop Cells Ovalocytes Elías Cells PT INR Sodium Potassium Chloride Carbon Dioxide Anion Gap BUN Creatinine Est GFR ( Amer) Est GFR (Non-Af Amer) POC Glucose (mg/dL) 276 H Random Glucose Calcium Phosphorus Magnesium Total Bilirubin AST ALT Alkaline Phosphatase Total Protein Albumin Globulin Albumin/Globulin Ratio Critical Care Progress Note - Nutrition Nutrition: Nutrition Category Date Time Status NPO Diet [DIET] Diets 09/09/17 Dinner Active Attending/Attestation - Attestation I have personally seen and examined this patient.: Yes I have fully participated in the care of the patient.: Yes I have reviewed all pertinent clinical information: Yes Notes (Text): 09/11/17 17:47 patient seen and examined in the intensive care unit. Case discussed with house staff in the morning rounds. During dialysis patient became hypotensive And tachycardic Continue ICU observation Case discussed with family Started on Levophed Follow up ABG and chest x-ray
[2017-09-11] MEDS: Paricalcitol 2 mcg/ml Inj IV SCH (11:55)
[2017-09-11] MEDS: Vancomycin 1 GM in Sodium Chloride 0.9% 200 ML IVPB SCH (13:24)
--- NOTE | 2017-09-11 14:50 | CP.PCM.PN ---
Subjective - Date & Time of Evaluation Date of Evaluation: 09/11/17 Time of Evaluation: 14:49 - Subjective Subjective: Nephrology Consultation: Assessment: stable CKD stage 5 (N18.5) with hyperkalemia, acidosis now has ESRD on HD via permacath MWF pulm edema, CHF, NSTEMI, pleural effusions, pneumonia AMS, hyperglycemia s/p cardiac arrest, shock liver, A fib Diabetic chronic Kidney Disease (E11.22) Hypertensive Chronic Kidney Disease (I12.9) Anemia (D64.9), Hyperphosphatemia (E83.39), Secondary Hyperparathyroidism (E21.1 ), HTN (I12.9), vit D insuff, hx of colon CA, TIAs Plan HD Today as ordered as per MWF schedule. maintain hemodynamic stable. Patient not on ACEI/ARB due to low BP. off midodrine started iron supplements, MVI, epogen with HD, and zemplar 2 mcg with HD. started on phos binders as renvela Dose meds/antibiotics for ESRD/HD status. Avoid fleets enema/magnesium based laxatives. Avoid nephrotoxins/NSAIDs Glycemic control Further work up/management as per primary team beadworker consult for outpatient dialysis placement. Thanks for allowing me to participate in care of your patient. Will follow patient with you. Please call if any Qs. Dr Edson Norton Office: [phone] Chief Complaint; unable to obtain reason for consult: CKD management source of Info: EMR HPI: Pt is a 76 F with hx of diabetes Mellitus ( years), hypertension (years), CHF, TIA, Colon CA, CKD stage 4/5, has matured AVG in left arm presented with complaints of AMS and hyperglycemia as brought by family. now has elevated trop 100, hyperkalemia, AMS and elevated sugar, pulm edema. renal consult for CKD management. pt with AMS unable to provide any hx. she had received medical management for hyperkalemia. ROS: unable to obtain Physical Examination: General Appearance: ill appearing, on O2 Vitals reviewed and noted as below Head; Atraumatic, normocephalic ENT: On O2 EYES: PERRLA Neck; supple no lymphadenopathy, no thyromegaly or bruit Lungs: Normal respiratory rate/effort. Breath sounds bilateral clear, she is mechanically ventilated Heart: Normal rate. s1s2 normal. No rub or gallop. Extremities: no edema. No varicose veins. chronic hyperpigmented changes in legs Neurological: Patient is awake follows commands, Not much communicative verbally Skin: Warm and dry. Normal turgor. No rash. Palpitation: Normal elasticity for age Abdomen: Abdomen is soft. Bowel sounds +. There is no abdominal tenderness, no guarding/rigidity no organomegaly Psych: unable MSK: no joint tenderness or swelling. Digits and nails normal, no deformity : kidney or bladder not palpable Access: Left AVG without bruit. has left permacath Labs/imaging reviewed. Past medical history, past surgical history, family history, social history, allergy reviewed and noted as below Family hx: no hx of CKD. Rest non-contributory Objective - Vital Signs/Intake and Output Vital Signs (last 24 hours): Temp Pulse Resp BP Pulse Ox 97.5 F L 101 H 15 114/63 96 09/11/17 12:00 09/11/17 14:01 09/11/17 14:01 09/11/17 14:01 09/11/17 14:01 Intake and Output: 09/11/17 09/11/17 06:59 18:59 Intake Total 400 213 Output Total 0 0 Balance 400 213 - Medications Medications: Current Medications Albuterol/Ipratropium (Duoneb 3 Mg/0.5 Mg (3 Ml) Ud) 3 ml INH RQ4 [facility] Last Admin: 09/11/17 11:15 Dose: 3 ml Aspirin (Aspirin Chewable) 81 mg PO DAILY [facility] Last Admin: 09/11/17 09:18 Dose: 81 mg Diltiazem HCl (Cardizem) 30 mg PO Q6H [facility] Last Admin: 09/11/17 13:19 Dose: 30 mg Epoetin Alan (Procrit) 10,000 unit IV MWF [facility] Last Admin: 09/11/17 11:18 Dose: 10,000 unit Ferrous Gluconate (Fergon) 324 mg PO TID [facility] Last Admin: 09/11/17 13:19 Dose: 324 mg Heparin Sodium (Porcine) (Heparin) 1,000 units IVP MWF [facility] Last Admin: 09/11/17 11:40 Dose: 3.9 units Hydromorphone HCl (Dilaudid) 0.5 mg IVP Q6H PRN PRN Reason: Pain, moderate (4-7) Vancomycin HCl 1 gm/ Sodium (Chloride) 200 mls @ 166.7 mls/hr IVPB MWF [facility] PRN Reason: Protocol Last Admin: 09/11/17 13:24 Dose: 166.7 mls/hr Aztreonam 1 gm/ Sodium (Chloride) 100 mls @ 100 mls/hr IVPB [facility] PRN Reason: Protocol Stop: 09/12/17 14:54 Insulin Aspart (Novolog) 0 unit SC Q6 [facility] PRN Reason: Protocol Last Admin: 09/11/17 12:18 Dose: 4 unit Insulin Glargine (Lantus) 5 unit SC HS [facility] Last Admin: 09/10/17 22:25 Dose: 5 u Methylprednisolone (Solu-Medrol) 40 mg IVP DAILY [facility] Stop: 09/12/17 10:01 Last Admin: 09/11/17 09:18 Dose: 40 mg Metoprolol Tartrate (Lopressor) 25 mg PO BID [facility] Last Admin: 09/11/17 09:18 Dose: 25 mg Pantoprazole Sodium (Protonix Inj) 40 mg IVP DAILY [facility] Last Admin: 09/11/17 09:18 Dose: 40 mg Paricalcitol (Zemplar) 2 mcg IV MWF [facility] Last Admin: 09/11/17 11:55 Dose: 2 mcg Rosuvastatin Calcium (Crestor) 5 mg PO HS [facility] Last Admin: 09/10/17 21:38 Dose: Not Given Sennosides (Senokot Tab) 8.6 mg NG DAILY [facility] Last Admin: 09/11/17 09:20 Dose: 8.6 mg Sevelamer Carbonate (Renvela) 800 mg PO TIDCC [facility] Last Admin: 09/11/17 13:02 Dose: Not Given Vitamin B Complex/Vit C/Folic Acid (Nephro-Kamron) 1 tab PO 0800 [facility] Last Admin: 09/11/17 07:50 Dose: 1 tab Warfarin Sodium (Coumadin) 5 mg PO 1800 [facility] Stop: 09/11/17 18:01 - Labs Labs: 09/11/17 06:10 09/11/17 06:10 PT 19.2 SECONDS (9.7-12.2) H 09/11/17 06:10 INR 1.7 09/11/17 06:10 APTT 27 SECONDS (21-34) D 09/10/17 10:19
--- NOTE | 2017-09-11 14:53 | CP.PCM.PN ---
Subjective - Date & Time of Evaluation Date of Evaluation: 09/11/17 Time of Evaluation: 10:00 - Subjective Subjective: Vascular Surgery Progress note. Dr. Quinonez Pt seen and examined at bedside. no acute events overnight. Having dialysis through left IJ permacath now. No complications noted. Objective - Vital Signs/Intake and Output Vital Signs (last 24 hours): Temp Pulse Resp BP Pulse Ox 97.5 F L 101 H 15 114/63 96 09/11/17 12:00 09/11/17 14:01 09/11/17 14:01 09/11/17 14:01 09/11/17 14:01 Intake and Output: 09/11/17 09/11/17 06:59 18:59 Intake Total 400 213 Output Total 0 0 Balance 400 213 - Medications Medications: Current Medications Albuterol/Ipratropium (Duoneb 3 Mg/0.5 Mg (3 Ml) Ud) 3 ml INH RQ4 [facility] Last Admin: 09/11/17 11:15 Dose: 3 ml Aspirin (Aspirin Chewable) 81 mg PO DAILY [facility] Last Admin: 09/11/17 09:18 Dose: 81 mg Diltiazem HCl (Cardizem) 30 mg PO Q6H [facility] Last Admin: 09/11/17 13:19 Dose: 30 mg Epoetin Alan (Procrit) 10,000 unit IV MWF [facility] Last Admin: 09/11/17 11:18 Dose: 10,000 unit Ferrous Gluconate (Fergon) 324 mg PO TID [facility] Last Admin: 09/11/17 13:19 Dose: 324 mg Heparin Sodium (Porcine) (Heparin) 1,000 units IVP [facility] Last Admin: 09/11/17 11:40 Dose: 3.9 units Hydromorphone HCl (Dilaudid) 0.5 mg IVP Q6H PRN PRN Reason: Pain, moderate (4-7) Vancomycin HCl 1 gm/ Sodium (Chloride) 200 mls @ 166.7 mls/hr IVPB [facility] PRN Reason: Protocol Last Admin: 09/11/17 13:24 Dose: 166.7 mls/hr Aztreonam 1 gm/ Sodium (Chloride) 100 mls @ 100 mls/hr IVPB [facility] ONE PRN Reason: Protocol Stop: 09/12/17 14:54 Insulin Aspart (Novolog) 0 unit SC Q6 [facility] PRN Reason: Protocol Last Admin: 09/11/17 12:18 Dose: 4 unit Insulin Glargine (Lantus) 5 unit SC [facility] Last Admin: 09/10/17 22:25 Dose: 5 u Methylprednisolone (Solu-Medrol) 40 mg IVP DAILY [facility] Stop: 09/12/17 10:01 Last Admin: 09/11/17 09:18 Dose: 40 mg Metoprolol Tartrate (Lopressor) 25 mg PO BID [facility] Last Admin: 09/11/17 09:18 Dose: 25 mg Pantoprazole Sodium (Protonix Inj) 40 mg IVP DAILY [facility] Last Admin: 09/11/17 09:18 Dose: 40 mg Paricalcitol (Zemplar) 2 mcg IV MWF [facility] Last Admin: 09/11/17 11:55 Dose: 2 mcg Rosuvastatin Calcium (Crestor) 5 mg PO [facility] Last Admin: 09/10/17 21:38 Dose: Not Given Sennosides (Senokot Tab) 8.6 mg NG DAILY [facility] Last Admin: 09/11/17 09:20 Dose: 8.6 mg Sevelamer Carbonate (Renvela) 800 mg PO TIDCC [facility] Last Admin: 09/11/17 13:02 Dose: Not Given Vitamin B Complex/Vit C/Folic Acid (Nephro-Kamron) 1 tab PO 0800 [facility] Last Admin: 09/11/17 07:50 Dose: 1 tab Warfarin Sodium (Coumadin) 5 mg PO 1800 [facility] Stop: 09/11/17 18:01 - Labs Labs: 09/11/17 06:10 09/11/17 06:10 PT 19.2 SECONDS (9.7-12.2) H 09/11/17 06:10 INR 1.7 09/11/17 06:10 APTT 27 SECONDS (21-34) D 09/10/17 10:19 - Constitutional Appears: Non-toxic, No Acute Distress - Head Exam Head Exam: ATRAUMATIC, NORMAL INSPECTION, NORMOCEPHALIC - Eye Exam Eye Exam: EOMI, Normal appearance - ENT Exam ENT Exam: Mucous Membranes Moist - Respiratory Exam Respiratory Exam: NORMAL BREATHING PATTERN. absent: Accessory Muscle Use, Respiratory Distress - Cardiovascular Exam Cardiovascular Exam: RRR. absent: JVD Additional comments: left chest permacath site clean, dry and intact. Getting HD now. no signs of bleeding. - GI/Abdominal Exam GI & Abdominal Exam: Soft. absent: Guarding, Rigid, Tenderness, Rebound - Extremities Exam Extremities Exam: Normal Inspection. absent: Calf Tenderness - Neurological Exam Neurological Exam: Alert - Psychiatric Exam Psychiatric exam: Normal Affect, Normal Mood - Skin Skin Exam: Dry, Intact, Normal Color, Warm Assessment and Plan - Assessment and Plan (Free Text) Assessment: 76yo F s/p left IJ permacath exchange over wire Plan: - Continue HD via permacath - No further surgical intervention needed at this time - Please re-consult as needed Further recs as per Dr. Devi Villalpando PGY1 surgery pager: [phone]
[2017-09-11 17:59] LABS: ABG ALLEN TEST POS; ARTERIAL BLOOD GAS HCO3 21.3 mmol/L (21-28); ARTERIAL BLOOD GAS O2 SAT 85.8 % (95-98); ARTERIAL BLOOD GAS PCO2 33 mm/Hg (35-45); ARTERIAL BLOOD GAS PH 7.39 (7.35-7.45); ARTERIAL BLOOD GAS PO2 47 mm/Hg (80-100)
--- NOTE | 2017-09-11 21:01 | CP.PCM.PN ---
Subjective - Date & Time of Evaluation Date of Evaluation: 09/11/17 Time of Evaluation: 03:10 - Subjective Subjective: dictated Objective - Vital Signs/Intake and Output Vital Signs (last 24 hours): Temp Pulse Resp BP Pulse Ox 97.8 F 112 H 21 117/64 100 09/11/17 20:00 09/11/17 19:59 09/11/17 19:59 09/11/17 19:59 09/11/17 20:00 Intake and Output: 09/11/17 09/12/17 18:59 06:59 Intake Total 412.9 11.3 Output Total 0 0 Balance 412.9 11.3 - Medications Medications: Current Medications Albuterol/Ipratropium (Duoneb 3 Mg/0.5 Mg (3 Ml) Ud) 3 ml INH RQ4 [facility] Last Admin: 09/11/17 19:15 Dose: 3 ml Aspirin (Aspirin Chewable) 81 mg PO DAILY [facility] Last Admin: 09/11/17 09:18 Dose: 81 mg Diltiazem HCl (Cardizem) 30 mg PO Q6H [facility] Last Admin: 09/11/17 18:53 Dose: Not Given Epoetin Alan (Procrit) 10,000 unit IV MWF [facility] Last Admin: 09/11/17 11:18 Dose: 10,000 unit Ferrous Gluconate (Fergon) 324 mg PO TID [facility] Last Admin: 09/11/17 18:05 Dose: Not Given Heparin Sodium (Porcine) (Heparin) 1,000 units [place]P [facility] Last Admin: 09/11/17 11:40 Dose: 3.9 units Hydromorphone HCl (Dilaudid) 0.5 mg IVP Q6H PRN PRN Reason: Pain, moderate (4-7) Vancomycin HCl 1 gm/ Sodium (Chloride) 200 mls @ 166.7 mls/hr IVPB MWF [facility] PRN Reason: Protocol Last Admin: 09/11/17 13:24 Dose: 166.7 mls/hr Aztreonam 1 gm/ Sodium (Chloride) 100 mls @ 100 mls/hr IVPB [facility] PRN Reason: Protocol Stop: 09/12/17 14:54 Norepinephrine Bitartrate 4 mg (/ Sodium Chloride) 254 mls @ 15.24 mls/hr IV .[id number] PRN; Protocol; 4 MCG/MIN PRN Reason: TITRATE PER MD ORDER Last Titration: 09/11/17 18:35 Dose: 2 mcg/min, 7.62 mls/hr Insulin Aspart (Novolog) 0 unit SC Q6 [facility] PRN Reason: Protocol Last Admin: 09/11/17 17:55 Dose: 6 unit Insulin Glargine (Lantus) 5 unit SC [facility] Last Admin: 09/10/17 22:25 Dose: 5 u Methylprednisolone (Solu-Medrol) 40 mg IVP DAILY [facility] Stop: 09/12/17 10:01 Last Admin: 09/11/17 09:18 Dose: 40 mg Metoprolol Tartrate (Lopressor) 25 mg PO BID [facility] Last Admin: 09/11/17 17:54 Dose: Not Given Pantoprazole Sodium (Protonix Inj) 40 mg IVP DAILY [facility] Last Admin: 09/11/17 09:18 Dose: 40 mg Paricalcitol (Zemplar) 2 mcg IV MWF [facility] Last Admin: 09/11/17 11:55 Dose: 2 mcg Rosuvastatin Calcium (Crestor) 5 mg PO [facility] Last Admin: 09/10/17 21:38 Dose: Not Given Sennosides (Senokot Tab) 8.6 mg NG DAILY [facility] Last Admin: 09/11/17 09:20 Dose: 8.6 mg Sevelamer Carbonate (Renvela) 800 mg PO TIDCC [facility] Last Admin: 09/11/17 18:03 Dose: Not Given Vitamin B Complex/Vit C/Folic Acid (Nephro-Kamron) 1 tab PO 0800 [facility] Last Admin: 09/11/17 07:50 Dose: 1 tab - Labs Labs: 09/11/17 06:10 09/11/17 06:10 PT 19.2 SECONDS (9.7-12.2) H 09/11/17 06:10 INR 1.7 09/11/17 06:10 APTT 27 SECONDS (21-34) D 09/10/17 10:19
[2017-09-11] MEDS: (Lantus) Insulin Glargine, Recombinant SC SCH (21:32)
[2017-09-12] MEDS: Albuterol-Ipratrop 3 mg / 0.5 (3 ml) UD INH SCH ×7 (00:06→23:37)
[2017-09-12] MEDS: (Novolog) Insulin Aspart, Recombinant 100 u/ml 10 ml vial SC SCH ×4 (00:25→17:09)
--- NOTE | 2017-09-12 01:33 | PN ---
DATE: 09/11/2017 SUBJECTIVE: She still is in ICU and the patient offers no complaints. OBJECTIVE: VITAL SIGNS: T-max is 97.8, heart rate of 112, blood pressure 117/64, respirations are 21. GENERAL: She has been off the vent, remains poorly responsive, has a dialysis catheter on the left side now and a triple lumen on the right side. LUNGS: Have coarse breath sounds. HEART: S1, S2 is tachycardic. ABDOMEN: Soft, nontender. No guarding, no rigidity present. EXTREMITIES: Have bilateral boots present. LABORATORY DATA: Her white count is 18.8 today, hemoglobin 8.9, hematocrit 28, platelet count is 214, neutrophils are 95. White count was 25.9 yesterday, it is coming down and chemistry shows she is still with BUN of 98, creatinine 5.5. She will be on dialysis. Micro cultures, sputum grew gram-negative rods, ID and sensitivity is pending. Catheter tip which was removed is negative so far, so she has been on Azactam and vancomycin at this time of the report. ASSESSMENT AND PLAN: She had chest x-ray done today, results of which is pending at this time. We will monitor that x-ray report and she also had a dialysis catheter placed yesterday and this time, I have continued Azactam 1 g daily as she is dependent on dialysis now and she is still on steroids which are being tapered slowly and she still is on norepinephrine and on vancomycin, Saturday, Saturday, Saturday. We will follow chest x-ray report and white blood cell count and we are awaiting for the sputum culture and sensitivity to see if it is sensitive to Azactam as she is allergic to penicillin. We will follow and follow with the intensive care unit team. Karissa Adams MD
[2017-09-12 06:21] LABS: BASO % 0.1 % (0.0-2.0); HEMOGLOBIN 9.2 g/dL (11.0-16.0); LYMPH # 0.2 K/uL (1.0-4.3); LYMPH % 0.8 % (20.0-40.0); MEAN CORPUSCULAR HEMOGLOBIN 27.7 pg (27.0-31.0); MEAN CORPUSCULAR HGB CONC 31.8 g/dL (33.0-37.0); MEAN PLATELET VOLUME 9.7 fL (7.2-11.7); MONO # 0.5 K/uL (0.0-0.8); MONO % 2.2 % (0.0-10.0); NEUT # 23.3 K/uL (1.8-7.0); NEUT % 96.9 % (50.0-75.0); NRBC % 0.3 % (0.0-2.0); PLATELET COUNT 228 K/uL (130-400); RBC 3.34 Mil/uL (3.80-5.20); RED CELL DISTRIBUTION WIDTH 17.7 % (11.5-14.5)
[2017-09-12 06:32] LABS: CALCIUM 8.7 mg/dl (8.6-10.4)
[2017-09-12] MEDS: Multivitamin Vitamin B Complex (Nephro-Vite) Tab PO SCH (08:12)
[2017-09-12 08:41] LABS: ANISOCYTOSIS SLIGHT; LYMPHOCYTE 1 % (20-40); MONOCYTE 1 % (0-10); NEUTROPHIL 98 % (50-75); PLATELET ESTIMATE NORMAL (NORMAL); POIKILOCYTOSIS SLIGHT; TOTAL CELLS COUNTED 100
[2017-09-12 08:42] LABS: BURR CELLS MODERATE; HYPOCHROMIC SLIGHT; TARGET CELLS SLIGHT
[2017-09-12 08:43] LABS: LARGE PLATELETS PRESENT; OVALOCYTES SLIGHT
[2017-09-12 08:43] LABS: INR 2.4
[2017-09-12 08:44] LABS: PROTHROMBIN TIME 28.9 SECONDS (9.7-12.2)
--- NOTE | 2017-09-12 09:12 | RAD ---
Chest x-ray single frontal view History: Hypoxemia Comparison: 09/10/2017 Findings: Persistent rounded mass like opacity at the right lung base laterally for which underlying lesion cannot be excluded. Correlation with chest CT and or follow-up x-ray would be helpful if clinically indicated. Persistent moderate loculated left pleural effusion with consolidative changes seen within the left mid to lower lung zone. Cardiomegaly. Calcification at the aortic knob. NG tube extending into the stomach. Right-sided venous catheter tip extending into the right atrium. Left central venous catheter with tip extending into the right atrium. Impression: Persistent rounded mass like opacity at the right lung base laterally for which underlying lesion cannot be excluded. Correlation with chest CT and or follow-up x-ray would be helpful if clinically indicated. Persistent moderate loculated left pleural effusion with consolidative changes seen within the left mid to lower lung zone. Cardiomegaly. Calcification at the aortic knob. NG tube extending into the stomach. Right-sided venous catheter tip extending into the right atrium. Left central venous catheter with tip extending into the right atrium.
[2017-09-12] MEDS: MethylPREDNISolone 40 mg Vial IVP SCH (09:20)
--- NOTE | 2017-09-12 11:46 | CP.PCM.PN ---
Subjective - Date & Time of Evaluation Date of Evaluation: 09/12/17 Time of Evaluation: 11:45 - Subjective Subjective: Patient was seen and examined. getting dialysis. Tolerating ok.Awake and Responsive. denies pain She became hypotensive and tachycardic during dialysis yesterday Objective - Vital Signs/Intake and Output Vital Signs (last 24 hours): Temp Pulse Resp BP Pulse Ox 97.4 F L 118 H 20 111/61 100 09/12/17 09:40 09/12/17 10:59 09/12/17 10:59 09/12/17 11:10 09/12/17 10:30 Intake and Output: 09/12/17 09/12/17 06:59 18:59 Intake Total 56.7 260 Output Total 0 Balance 56.7 260 - Medications Medications: Current Medications Albuterol/Ipratropium (Duoneb 3 Mg/0.5 Mg (3 Ml) Ud) 3 ml INH RQ4 [facility] Last Admin: 09/12/17 11:12 Dose: Not Given Aspirin (Aspirin Chewable) 81 mg PO DAILY [facility] Last Admin: 09/12/17 09:20 Dose: 81 mg Diltiazem HCl (Cardizem) 30 mg PO Q6H [facility] Last Admin: 09/12/17 07:03 Dose: 30 mg Epoetin Alan (Procrit) 10,000 unit IV [facility] Last Admin: 09/11/17 11:18 Dose: 10,000 unit Ferrous Gluconate (Fergon) 324 mg PO TID [facility] Last Admin: 09/12/17 09:21 Dose: 324 mg Heparin Sodium (Porcine) (Heparin) 1,000 units IVP [facility] Last Admin: 09/11/17 11:40 Dose: 3.9 units Hydromorphone HCl (Dilaudid) 0.5 mg IVP Q6H PRN PRN Reason: Pain, moderate (4-7) Vancomycin HCl 1 gm/ Sodium (Chloride) 200 mls @ 166.7 mls/hr IVPB [facility] PRN Reason: Protocol Last Admin: 09/11/17 13:24 Dose: 166.7 mls/hr Aztreonam 1 gm/ Sodium (Chloride) 100 mls [facility] 100 [facility] Reason: Protocol Stop: 09/12/17 14:54 Norepinephrine Bitartrate 4 mg (/ Sodium Chloride) 254 mls @ 15.24 mls/hr IV .[id number] PRN; Protocol; 4 MCG/MIN PRN Reason: TITRATE PER MD ORDER Last Titration: 09/11/17 20:00 Dose: 1 mcg/min, 3.81 mls/hr Insulin Aspart (Novolog) 0 unit SC Q6 [facility] PRN Reason: Protocol Last Admin: 09/12/17 05:43 Dose: 6 unit Insulin Glargine (Lantus) 5 unit SC [facility] Last Admin: 09/11/17 21:32 Dose: 5 u Metoprolol Tartrate (Lopressor) 25 mg PO BID [facility] Last Admin: 09/12/17 09:22 Dose: Not Given Midodrine (Proamatine) 10 mg PO TID [facility] Pantoprazole Sodium (Protonix Inj) 40 mg IVP DAILY [facility] Last Admin: 09/12/17 09:20 Dose: 40 mg Paricalcitol (Zemplar) 2 mcg IV MWF [facility] Last Admin: 09/11/17 11:55 Dose: 2 mcg Rosuvastatin Calcium (Crestor) 5 mg PO [facility] Last Admin: 09/11/17 21:32 Dose: 5 mg Sennosides (Senokot Tab) 8.6 mg NG DAILY [facility] Last Admin: 09/12/17 09:21 Dose: 8.6 mg Sevelamer Carbonate (Renvela) 800 mg PO TIDCC [facility] Last Admin: 09/12/17 08:12 Dose: 800 mg Vitamin B Complex/Vit C/Folic Acid (Nephro-Kamron) 1 tab PO 0800 [facility] Last Admin: 09/12/17 08:12 Dose: 1 tab Warfarin Sodium (Coumadin) 2.5 mg PO 1800 [facility] Stop: 09/12/17 18:01 - Labs Labs: 09/12/17 06:12 09/12/17 06:10 PT 28.9 SECONDS (9.7-12.2) H D 09/12/17 08:24 INR 2.4 D 09/12/17 08:24 APTT 29 SECONDS (21-34) 09/12/17 08:24 - Constitutional Appears: No Acute Distress, Chronically Ill - Head Exam Head Exam: NORMAL INSPECTION - Eye Exam Eye Exam: Normal appearance - ENT Exam ENT Exam: Mucous Membranes Moist - Neck Exam Neck Exam: Full ROM - Respiratory Exam Respiratory Exam: Clear to Ausculation Bilateral, NORMAL BREATHING PATTERN - Cardiovascular Exam Cardiovascular Exam: Tachycardia, Irregular Rhythm - GI/Abdominal Exam GI & Abdominal Exam: Normal Bowel Sounds - Extremities Exam Extremities Exam: Full ROM, Normal Inspection - Back Exam Back Exam: NORMAL INSPECTION - Neurological Exam Neurological Exam: Awake, Oriented x3 - Psychiatric Exam Psychiatric exam: Normal Affect, Normal Mood - Skin Skin Exam: Dry, Erythema, Intact Assessment and Plan - Assessment and Plan (Free Text) Assessment: This is a 76 year old female with a history of ESRD now getting HD, CHF, DM, HTN , hypercholesterolemia, and some sort of WI years before, repeated TIAs, and colon CA. She was brought in by family for altered mental status and ultimately found to have severe metabolic acidosis as well as a extremely elevated troponins. S/P cardiac arrest,VT,Vifb and s/p extubation.Afib on coumadin Plan: 1 Acute NSTEMI , Asystol ,CPR / Sustained VT 09/11 --Continue asprin,cardizem and metoprolol. On coumadin for afib.INR 2.4, Reduce the dose of coumadin to 2.5mg tonight. follow INR 09/09: Heparin drip discontinued 09/07: I had long conversation with POA Annmarie Stauffer and per the POA the patient indicated to them no cardiac catherization. I explained to POA that considering the weakened heart function it may prove very difficult to successfully extubate patient. At this moment she remains on heparin ggt, getting HD, and also weaning trials 09/06: Cardiac catherization was canceled 09/05: Potentially cardiac catherization shortly from now. Remains on heparin ggt 09/04: atrial fibrillation appearance on telemetry, check a new 12 lead EKG. Remains on heparin ggt. 09/03: Remains in heparin ggt, statin, ASA. Hopefully at some point can have cardiac catherization. 09/02: Now off pressor medications. She remains on amiodarone Echo EF 15 to 20%. 2 Respiratory failure, intubation 09/02-Doing well 09/10 Saturating well on nasal cannula 4l 09/09 Weaning trial.chest xray looks better. Just switched to CPAP 09/08: She may end up needing a trach and or PEG if she is not able to be successfully extubated 09/07: Again became tachycardic at night and was switched from PS/CPAP settings back to PRVC. Family is aware that it will be difficult to extubate 09/06: Back on PRVC after having tachy cardia 09/05: Has tolerated CPAP settings throughout the night 09/04: Yesterday afternoon she was moved back to PRVC 09/03: Now changed to CPAP/PS settings. The chest XRAYs look better this morning following HD last night. 3 Atrial Fibrillation 09/11-She is in afib . Patient has CHADS-VA score 8. has high CHADS score . INR today 2.4 Coumadin 2.5mg tonight 09/07: remains in atrial fibrillation. On heparin and loppressor BID 09/06: Continue on heparin ggt, Lopressor increased to 25 BID 4 Acute renal failure on chronic renal disease/Now ESRD on HD 09/12-gettin dialysis today. yesterday she was hypotensive and tachy. had only 500ml removed 09/10-s/p L IJpermacath. left shiley removed 09/09-HD today 09/05: Toleratated HD well yesterday 09/04: Currently MWF HD 09/03: Underwent HD yesterday and tolerated it well. CXRAY looks better 09/02/2017: She has had one session of HD so far. Mercedes another session today 5 Leukocytosis concerning for sepsis 09/11-Continue antibiotics.seen by Dr schultz yesterday. Has high procalcitonin 6.1. WBC is high /18 today 09/10 on Aztreonam ,vanco and flagyl.follow ID cultures negative 09/03: Today decreased WBC. Cultures negative so far 09/02/2017: The elevated WBC maybe stress related. She remains on abx Aztreonam IV and Flagyl IV 6 Acute systolic heart failure Patient refuses cardiac cath. has high risk for arrhythmia and poor prognosis Family aware of her condition lying without sob 09/03: Monitor chest XRAYs. ECHO shows EF 15 to 20% follow cardio 7 Pleural effusion 09/05: Still present 09/03: Improving CXRAYs 09/02/2017: Pleural effusions minimal at this time. Continue to monitor 8 Hyperglycemia and uncontrolled DM 09/03: Recent accucheks 130s, 130, 160 9 Anemia of chronic disease, CKD 3/6: Yesterday had 1 unit of PRBC given during HD, receiving EPO 10.DVT prophylaxis on heparin and GI prophylaxis on protonix Gi consult requested for peg.Getting NG feeding
--- NOTE | 2017-09-12 13:17 | CP.PCM.CON ---
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 Patient was found to have a NSTEMI, septic with pleural effusions, and in metabolic acidosis. Both patient and family refused cardiac catherization, patient is currrently being medically managed. Patient was started on dialysis on the night of admission and became hypotensive and underwent 2 rounds of CPR performed secondary to asystole and then sustained VTACH. She was intubated and successfully extubated 09/09/17. Patient failed swallow eval 09/11/17, NGT was placed and is receiving feedings. As per EMR, no dysphasia noted prior to admission. No prior colonoscopy noted in EMR.Patient denied any abdominal pain, admitted to not having a BM for several days. PMD: Carmelo PMHx: ESRD started on HD on this admission (initially MWF, now TTS), DM, HTN, hypercholesterolemia, NC (many years ago, no known intervention), TIA x 3 ( years ago), PAD, CHF, asthma, colon CA in 2009 (treated with chemotherapy and surgery), arthritis PSHx: unknown surgery for colon CA (2009); endoscopy Medications: As per MAR Allergies: Penicillin (rash) SHx:Lives alone in [place] (son and daughter visit daily to assist); ambulates without assistance; at baseline is able to walk around and cook without difficulty; retired; former smoker (25+ pack years); no current ETOH use ; no current recreational drug use FHx: Limited; Mother- of cancer; Father- for unknown reason. In the event of emergency, daughter Cyril Stauffer ([phone]) will make healthcare decisions. Patient's son is also involved in her care: Deangelo Stauffer ) Past Patient History - Infectious Disease Hx of Infectious Diseases: None - Tetanus Immunizations Tetanus Immunization: Unknown - Past Medical History & Family History Past Medical History?: Yes - Past Social History Smoking Status: Former Smoker - CARDIAC Hx Hypercholesterolemia: Yes Hx Hypertension: Yes - PULMONARY Hx Asthma: Yes (Dx 15 yrs ago,does not use home o2 anymore) Hx Pneumonia: Yes (x2) - NEUROLOGICAL Hx Transient Ischemic Attacks (TIA): Yes (x3 about 20 yrs ago, 10 yrs ago, 7 yrs ago) - HEENT Hx HEENT Problems: Yes Hx Cataracts: Yes - RENAL Hx Chronic Kidney Disease: Yes - ENDOCRINE/METABOLIC Hx Diabetes Mellitus Type 1: Yes - HEMATOLOGICAL/ONCOLOGICAL Hx Anemia: Yes - INTEGUMENTARY Hx Dermatological Problems: No - MUSCULOSKELETAL/RHEUMATOLOGICAL Hx Arthritis: Yes - GASTROINTESTINAL Hx Gastrointestinal Disorders: Yes Other/Comment: Hx colon cancer - GENITOURINARY/GYNECOLOGICAL Hx Genitourinary Disorders: Yes Other/Comment: Colon CA - PSYCHIATRIC Hx Depression: No Hx Substance Use: No - SURGICAL HISTORY Hx Cataract Extraction: Yes (LEFT) - ANESTHESIA Hx Anesthesia: Yes Hx Anesthesia Reactions: No Hx Malignant Hyperthermia: No Meds Allergies/Adverse Reactions: Allergies Allergy/AdvReac Type Severity Reaction Status Date / Time Penicillins Allergy Intermediate RASH Verified 08/29/17 20:11 - Medications Medications: Current Medications Albuterol/Ipratropium (Duoneb 3 Mg/0.5 Mg (3 Ml) Ud) 3 ml INH RQ4 [facility] Last Admin: 09/12/17 11:12 Dose: Not Given Aspirin (Aspirin Chewable) 81 mg PO DAILY [facility] Last Admin: 09/12/17 09:20 Dose: 81 mg Diltiazem HCl (Cardizem) 30 mg PO Q6H [facility] Last Admin: 09/12/17 07:03 Dose: 30 mg Epoetin Alan (Procrit) 10,000 unit IV [facility] Last Admin: 09/11/17 11:18 Dose: 10,000 unit Ferrous Gluconate (Fergon) 324 mg PO TID [facility] Last Admin: 09/12/17 09:21 Dose: 324 mg Heparin Sodium (Porcine) (Heparin) 1,000 units IVP F [facility] Last Admin: 09/11/17 11:40 Dose: 3.9 units Hydromorphone HCl (Dilaudid) 0.5 mg IVP Q6H PRN PRN Reason: Pain, moderate (4-7) Norepinephrine Bitartrate 4 mg (/ Sodium Chloride) 254 mls @ 15.24 mls/hr IV .[id number] PRN; Protocol; 4 MCG/MIN PRN Reason: TITRATE PER MD ORDER Last Titration: 09/11/17 20:00 Dose: 1 mcg/min, 3.81 mls/hr Vancomycin/Sodium Chloride (Vancomycin 1 Gm/Ns 200 Ml) 1 gm in 200 mls @ 133.333 mls/hr IVPB TTS [facility] PRN Reason: Protocol Stop: 09/19/17 10:01 Aztreonam 1 gm/ Sodium (Chloride) 100 mls @ 100 mls/hr IVPB TTS [facility] PRN Reason: Protocol Vancomycin HCl 500 mg/ Sodium (Chloride) 100 mls @ 100 mls/hr IVPB ONCE ONE PRN Reason: Protocol Stop: 09/12/17 13:59 Aztreonam 1 gm/ Sodium (Chloride) 100 mls @ 100 mls/hr IVPB ONCE ONE PRN Reason: Protocol Stop: 09/12/17 15:59 Insulin Aspart (Novolog) 0 unit SC Q6 [facility] PRN Reason: Protocol Last Admin: 09/12/17 12:07 Dose: 2 unit Insulin Glargine (Lantus) 5 unit SC HS [facility] Last Admin: 09/11/17 21:32 Dose: 5 u Metoprolol Tartrate (Lopressor) 25 mg PO BID [facility] Last Admin: 09/12/17 09:22 Dose: Not Given Midodrine (Proamatine) 10 mg PO TTS [facility] Pantoprazole Sodium (Protonix Inj) 40 mg IVP DAILY [facility] Last Admin: 09/12/17 09:20 Dose: 40 mg Paricalcitol (Zemplar) 2 mcg IV MWF [facility] Last Admin: 09/11/17 11:55 Dose: 2 mcg Rosuvastatin Calcium (Crestor) 5 mg PO HS [facility] Last Admin: 09/11/17 21:32 Dose: 5 mg Sennosides (Senokot Tab) 8.6 mg NG DAILY [facility] Last Admin: 09/12/17 09:21 Dose: 8.6 mg Sevelamer Carbonate (Renvela) 800 mg PO TIDCC [facility] Last Admin: 09/12/17 12:08 Dose: 800 mg Vitamin B Complex/Vit C/Folic Acid (Nephro-Kamron) 1 tab PO 0800 [facility] Last Admin: 09/12/17 08:12 Dose: 1 tab Warfarin Sodium (Coumadin) 2.5 mg PO 1800 [facility] Stop: 09/12/17 18:01 Physical Exam - Constitutional Appears: No Acute Distress - Head Exam Head Exam: NORMAL INSPECTION, NORMOCEPHALIC - Eye Exam Eye Exam: EOMI, Normal appearance, PERRL. absent: Nystagmus, Scleral icterus Pupil Exam: NORMAL ACCOMODATION - ENT Exam ENT Exam: Mucous Membranes Moist, Normal Exam - Respiratory Exam Respiratory Exam: Decreased Breath Sounds, NORMAL BREATHING PATTERN - Cardiovascular Exam Cardiovascular Exam: Tachycardia, Irregular Rhythm - GI/Abdominal Exam GI & Abdominal Exam: Normal Bowel Sounds, Soft. absent: Distended, Mass, Organomegaly, Tenderness - Rectal Exam Rectal Exam: Deferred - Extremities Exam Extremities exam: Positive for: normal inspection, pedal pulses present. Negative for: pedal edema, tenderness - Back Exam Back exam: NORMAL INSPECTION - Neurological Exam Neurological exam: Alert, Oriented x3 - Psychiatric Exam Psychiatric exam: Normal Affect, Normal Mood - Skin Skin Exam: Dry, Intact, Normal Color, Warm Results - Vital Signs Recent Vital Signs: Last Vital Signs Temp 96.6 F L 09/12/17 12:00 Pulse 112 H 09/12/17 13:00 Resp 13 09/12/17 13:00 BP 99/54 L 09/12/17 12:59 Pulse Ox 99 09/12/17 12:00 - Labs Result Diagrams: 09/12/17 06:12 09/12/17 06:10 Labs: Laboratory Results - last 24 hr 09/11/17 09/11/17 09/12/17 17:20 17:55 00:14 WBC RBC Hgb Hct MCV MCH MCHC RDW Plt Count MPV Neut % (Auto) Lymph % (Auto) [place] % (Auto) Eos % (Auto) Baso % (Auto) Neut # (Auto) Lymph # (Auto) [place] # (Auto) Eos # (Auto) Baso # (Auto) Neutrophils % (Manual) Lymphocytes % (Manual) Monocytes % (Manual) Platelet Estimate Large Platelets Hypochromasia (manual) Poikilocytosis (manual Anisocytosis (manual) Target Cells Ovalocytes [place] Cells PT INR APTT Puncture Site Rra pCO2 33 L pO2 47 L HCO3 21.3 ABG pH 7.39 ABG Total CO2 21.0 L ABG O2 Saturation 85.8 L ABG Base Excess -4.1 L Christian Test Pos ABG Potassium 4.4 A-a O2 Difference 625.0 Respiratory Index 13.3 Sodium 137.0 Chloride 102.0 Glucose 249 H Lactate 2.0 FiO2 100.0 Potassium Carbon Dioxide Anion Gap BUN Creatinine Est GFR ( Amer) Est GFR (Non-Af Amer) POC Glucose (mg/dL) 276 H 210 H Random Glucose Calcium Phosphorus Magnesium Total Bilirubin AST ALT Alkaline Phosphatase Total Protein Albumin Globulin Albumin/Globulin Ratio Arterial Blood Potassium 4.4 09/12/17 09/12/17 09/12/17 05:31 06:10 06:12 WBC 24.0 H RBC 3.34 L Hgb 9.2 L Hct 29.1 L MCV 87.0 MCH 27.7 MCHC 31.8 L RDW 17.7 H Plt Count 228 MPV 9.7 Neut % (Auto) 96.9 H Lymph % (Auto) 0.8 L [place] % (Auto) 2.2 Eos % (Auto) 0.0 Baso % (Auto) 0.1 Neut # (Auto) 23.3 H Lymph # (Auto) 0.2 L [place] # (Auto) 0.5 Eos # (Auto) 0.0 Baso # (Auto) 0.0 Neutrophils % (Manual) 98 H Lymphocytes % (Manual) 1 L Monocytes % (Manual) 1 Platelet Estimate Normal Large Platelets Present Hypochromasia (manual) Slight Poikilocytosis (manual Slight Anisocytosis (manual) Slight Target Cells Slight Ovalocytes Slight [place] Cells Moderate PT INR APTT Puncture Site pCO2 pO2 HCO3 ABG pH ABG Total CO2 ABG O2 Saturation ABG Base Excess Christian Test ABG Potassium A-a O2 Difference Respiratory Index Sodium 137 Chloride 98 Glucose Lactate FiO2 Potassium 4.9 Carbon Dioxide 19 L Anion Gap 25 H BUN 95 H Creatinine 5.1 H Est GFR ( Amer) 10 Est GFR (Non-Af Amer) 8 POC Glucose (mg/dL) 273 H Random Glucose 236 H Calcium 8.7 Phosphorus 8.6 H Magnesium 2.3 Total Bilirubin 0.8 AST 29 ALT 214 H Alkaline Phosphatase 159 H Total Protein 6.0 L Albumin 3.0 L Globulin 3.0 Albumin/Globulin Ratio 1.0 Arterial Blood Potassium 09/12/17 09/12/17 08:24 11:16 WBC RBC Hgb Hct MCV MCH MCHC RDW Plt Count MPV Neut % (Auto) Lymph % (Auto) [place] % (Auto) Eos % (Auto) Baso % (Auto) Neut # (Auto) Lymph # (Auto) [place] # (Auto) Eos # (Auto) Baso # (Auto) Neutrophils % (Manual) Lymphocytes % (Manual) Monocytes % (Manual) Platelet Estimate Large Platelets Hypochromasia (manual) Poikilocytosis (manual Anisocytosis (manual) Target Cells Ovalocytes Elías Cells PT 28.9 H D INR 2.4 D APTT 29 Puncture Site pCO2 pO2 HCO3 ABG pH ABG Total CO2 ABG O2 Saturation ABG Base Excess Christian Test ABG Potassium A-a O2 Difference Respiratory Index Sodium Chloride Glucose Lactate FiO2 Potassium Carbon Dioxide Anion Gap BUN Creatinine Est GFR ( Amer) Est GFR (Non-Af Amer) POC Glucose (mg/dL) 173 H Random Glucose Calcium Phosphorus Magnesium Total Bilirubin AST ALT Alkaline Phosphatase Total Protein Albumin Globulin Albumin/Globulin Ratio Arterial Blood Potassium Assessment & Plan - Assessment and Plan (Free Text) Assessment: 76 year old female with PMHx of ESRD started on HD during this admission (), Systolic CHF with EF 15-20%, moderate to severe Pulmonary hypertension, HTN, HLD, DM, Several TIAs, Colon CA s/p resection, hx DVT, and Hx Atrial Fibrillation was admitted on 08/30/17 for AMS and chest pain. Patient was found to have a NSTEMI, septic with pleural effusions, and in metabolic acidosis. Both patient and family refused cardiac catherization, patient is currrently being medically managed. Patient was started on dialysis on the night of admission and became hypotensive and underwent 2 rounds of CPR performed secondary to asystole and then sustained VTACH. She was intubated and successfully extubated 09/09/17. Patient failed swallow eval 09/11/17, NGT was placed and is receiving feedings. As per EMR, no dysphasia noted prior to admission. No prior colonoscopy noted in EMR. Evaluation for PEG Dysphagia s/p extubation 09/09/17 NSTEMI Sepsis likely secondary to pleural effusions on admission ESRD now on HD Systolic CHF with EF 15-20% Hx Atrial Fibrillation Colon CA s/p resection (2009) Plan: - Continue NGT feedings as tolerated - Patient is recently extubated on 3/12/18 - No prior history of dysphagia on admission - Will need repeat swallow eval next week 09/16/17 - In the meantime, will need to determine if family and patient are agreeable to PEG - If all agreeable and patient continues to fail swallow evals, then patient will need to be made medically optimized for PEG placement - We will sign off at this time. Please reconsult as necessary DW Dr. Lazo, Ligia Kimball DO, PGY-1 <Tanvir Lazo - Last Filed: 09/12/17 15:45> Meds - Medications Medications: Current Medications Albuterol/Ipratropium (Duoneb 3 Mg/0.5 Mg (3 Ml) Ud) 3 ml INH RQ4 [facility] Last Admin: 09/12/17 11:12 Dose: Not Given Aspirin (Aspirin Chewable) 81 mg PO DAILY [facility] Last Admin: 09/12/17 09:20 Dose: 81 mg Diltiazem HCl (Cardizem) 30 mg PO Q6H [facility] Last Admin: 09/12/17 13:49 Dose: 30 mg Epoetin Alan (Procrit) 12,000 unit IV TTS [facility] Ferrous Gluconate (Fergon) 324 mg PO TID [facility] Last Admin: 09/12/17 13:49 Dose: 324 mg Heparin Sodium (Porcine) (Heparin) 1,000 units IVP TTS [facility] Hydromorphone HCl (Dilaudid) 0.5 mg IVP Q6H PRN PRN Reason: Pain, moderate (4-7) Vancomycin/Sodium Chloride (Vancomycin 1 Gm/Ns 200 Ml) 1 gm in 200 mls @ 133.333 mls/hr IVPB TTS [facility] PRN Reason: Protocol Stop: 09/19/17 10:01 Aztreonam 1 gm/ Sodium (Chloride) 100 mls @ 100 mls/hr IVPB TTS [facility] PRN Reason: Protocol Aztreonam 1 gm/ Sodium (Chloride) 100 mls @ 100 mls/hr IVPB ONCE ONE PRN Reason: Protocol Stop: 09/12/17 15:59 Last Admin: 09/12/17 14:21 Dose: 100 mls/hr Insulin Aspart (Novolog) 0 unit SC Q6 [facility] PRN Reason: Protocol Last Admin: 09/12/17 12:07 Dose: 2 unit Insulin Glargine (Lantus) 5 unit SC HS [facility] Last Admin: 09/11/17 21:32 Dose: 5 u Metoprolol Tartrate (Lopressor) 25 mg PO BID [facility] Last Admin: 09/12/17 09:22 Dose: Not Given Midodrine (Proamatine) 10 mg PO TTS [facility] Pantoprazole Sodium (Protonix Inj) 40 mg IVP DAILY [facility] Last Admin: 09/12/17 09:20 Dose: 40 mg Paricalcitol (Zemplar) 2 mcg IV TTS [facility] Rosuvastatin Calcium (Crestor) 5 mg PO HS [facility] Last Admin: 09/11/17 21:32 Dose: 5 mg Sennosides (Senokot Tab) 8.6 mg NG DAILY [facility] Last Admin: 09/12/17 09:21 Dose: 8.6 mg Sevelamer Carbonate (Renvela) 800 mg PO TIDCC [facility] Last Admin: 09/12/17 12:08 Dose: 800 mg Vitamin B Complex/Vit C/Folic Acid (Nephro-Kamron) 1 tab PO 0800 [facility] Last Admin: 09/12/17 08:12 Dose: 1 tab Warfarin Sodium (Coumadin) 2.5 mg PO 1800 [facility] Stop: 09/12/17 18:01 Results - Vital Signs Recent Vital Signs: Last Vital Signs Temp 96.6 F L 09/12/17 13:10 Pulse 101 H 09/12/17 15:02 Resp 18 09/12/17 15:02 BP 101/67 09/12/17 15:03 Pulse Ox 100 09/12/17 15:02 - Labs Result Diagrams: 09/12/17 06:12 09/12/17 06:10 Labs: Laboratory Results - last 24 hr 09/11/17 09/11/17 09/12/17 17:20 17:55 00:14 WBC RBC Hgb Hct MCV MCH MCHC RDW Plt Count MPV Neut % (Auto) Lymph % (Auto) [place] % (Auto) Eos % (Auto) Baso % (Auto) Neut # (Auto) Lymph # (Auto) [place] # (Auto) Eos # (Auto) Baso # (Auto) Neutrophils % (Manual) Lymphocytes % (Manual) Monocytes % (Manual) Platelet Estimate Large Platelets Hypochromasia (manual) Poikilocytosis (manual Anisocytosis (manual) Target Cells Ovalocytes Elías Cells PT INR APTT Puncture Site Rra pCO2 33 L pO2 47 L HCO3 21.3 ABG pH 7.39 ABG Total CO2 21.0 L ABG O2 Saturation 85.8 L ABG Base Excess -4.1 L Christian Test Pos ABG Potassium 4.4 A-a O2 Difference 625.0 Respiratory Index 13.3 Sodium 137.0 Chloride 102.0 Glucose 249 H Lactate 2.0 FiO2 100.0 Potassium Carbon Dioxide Anion Gap BUN Creatinine Est GFR ( Amer) Est GFR (Non-Af Amer) POC Glucose (mg/dL) 276 H 210 H Random Glucose Calcium Phosphorus Magnesium Total Bilirubin AST ALT Alkaline Phosphatase Total Protein Albumin Globulin Albumin/Globulin Ratio Arterial Blood Potassium 4.4 09/12/17 09/12/17 09/12/17 05:31 06:10 06:12 WBC 24.0 H RBC 3.34 L Hgb 9.2 L Hct 29.1 L MCV 87.0 MCH 27.7 MCHC 31.8 L RDW 17.7 H Plt Count 228 MPV 9.7 Neut % (Auto) 96.9 H Lymph % (Auto) 0.8 L [place] % (Auto) 2.2 Eos % (Auto) 0.0 Baso % (Auto) 0.1 Neut # (Auto) 23.3 H Lymph # (Auto) 0.2 L [place] # (Auto) 0.5 Eos # (Auto) 0.0 Baso # (Auto) 0.0 Neutrophils % (Manual) 98 H Lymphocytes % (Manual) 1 L Monocytes % (Manual) 1 Platelet Estimate Normal Large Platelets Present Hypochromasia (manual) Slight Poikilocytosis (manual Slight Anisocytosis (manual) Slight Target Cells Slight Ovalocytes Slight [place] Cells Moderate PT INR APTT Puncture Site pCO2 pO2 HCO3 ABG pH ABG Total CO2 ABG O2 Saturation ABG Base Excess Christian Test ABG Potassium A-a O2 Difference Respiratory Index Sodium 137 Chloride 98 Glucose Lactate FiO2 Potassium 4.9 Carbon Dioxide 19 L Anion Gap 25 H BUN 95 H Creatinine 5.1 H Est GFR ( Amer) 10 Est GFR (Non-Af Amer) 8 POC Glucose (mg/dL) 273 H Random Glucose 236 H Calcium 8.7 Phosphorus 8.6 H Magnesium 2.3 Total Bilirubin 0.8 AST 29 ALT 214 H Alkaline Phosphatase 159 H Total Protein 6.0 L Albumin 3.0 L Globulin 3.0 Albumin/Globulin Ratio 1.0 Arterial Blood Potassium 03/15/18 03/15/18 08:24 11:16 WBC RBC Hgb Hct MCV MCH MCHC RDW Plt Count MPV Neut % (Auto) Lymph % (Auto) [place] % (Auto) Eos % (Auto) Baso % (Auto) Neut # (Auto) Lymph # (Auto) [place] # (Auto) Eos # (Auto) Baso # (Auto) Neutrophils % (Manual) Lymphocytes % (Manual) Monocytes % (Manual) Platelet Estimate Large Platelets Hypochromasia (manual) Poikilocytosis (manual Anisocytosis (manual) Target Cells Ovalocytes Elías Cells PT 28.9 H D INR 2.4 D APTT 29 Puncture Site pCO2 pO2 HCO3 ABG pH ABG Total CO2 ABG O2 Saturation ABG Base Excess Christian Test ABG Potassium A-a O2 Difference Respiratory Index Sodium Chloride Glucose Lactate FiO2 Potassium Carbon Dioxide Anion Gap BUN Creatinine Est GFR ( Amer) Est GFR (Non-Af Amer) POC Glucose (mg/dL) 173 H Random Glucose Calcium Phosphorus Magnesium Total Bilirubin AST ALT Alkaline Phosphatase Total Protein Albumin Globulin Albumin/Globulin Ratio Arterial Blood Potassium Attending/Attestation - Attestation I have personally seen and examined this patient.: Yes I have fully participated in the care of the patient.: Yes I have reviewed all pertinent clinical information: Yes Notes (Text): 09/12/17 15:36 I have seen and examined patient with medical staff manager and GI fellow. Agree with above documentation with the following additions. In brief, this is a 76 year old female with medical history of DM, HTN, CHF, pulmonary HTN, TIA, colon cancer s/p resection, DVT, atrial fibrillation who was initially brought to hospital for AMS and chest pain. Her hospital course has been complicated by development of renal failure requiring initiation of dialysis, NSTEMI, cardiac arrest, respiratory failure s/p intubation with recent extubation. GI called for evaluation of PEG placement. Patient herself is unable to participate in meaningful conversation due to current medical condition, additional information obtained via chart review, discussion with nursing staff, and patient family members. Apparently prior to hospital admission, patient was able to swallow and consume food without difficulty. NGT was placed yesterday and patient tolerating tube feeding thus far. There is no reported abdominal pain, nausea, vomiting. 12 point review of systems not able to be performed given patient mental status DM / HTN CHF Atrial fibrillation on coumadin TIA History of colon cancer s/p resection DVT NSTEMI, cardiac arrest Respiratory failure, pneumonia - sepsis Dysphagia - Continue with tube feeding as tolerated, monitor for residuals - Maintain aspiration precautions - Continue with antibiotic therapy - Patient currently not medically optimized for potential endoscopic procedure with feeding tube placement, also NGT just placed yesterday. Would defer procedure for time being due to current medical condition and would reconsider after some time if it is noted that patient has not regained swallowing capabilities. Will need to carefully discuss with family members regarding risks/benefits of procedure and if agreeable can consider in future when patient is able to come off Coumadin and cardiology notes no contraindications to proceed with procedure. - Will sign off case, please reconsult as necessary, thank you.
[2017-09-12] MEDS ORDERED: Aztreonam 1 GM in Sodium Chloride 0.9% 100 ML IVPB ONE ×2 (13:55→15:00)
--- NOTE | 2017-09-12 14:18 | CP.PCM.PN ---
Subjective - Date & Time of Evaluation Date of Evaluation: 09/12/17 Time of Evaluation: 14:17 - Subjective Subjective: Nephrology Consultation: Assessment: stable CKD stage 5 (N18.5) with hyperkalemia, acidosis now has ESRD on HD via permacath TTS pulm edema, CHF, NSTEMI, pleural effusions, pneumonia AMS, hyperglycemia s/p cardiac arrest, shock liver, A fib Diabetic chronic Kidney Disease (E11.22) Hypertensive Chronic Kidney Disease (I12.9) Anemia (D64.9), Hyperphosphatemia (E83.39), Secondary Hyperparathyroidism (E21.1 ), HTN (I12.9), vit D insuff, hx of colon CA, TIAs Plan HD Today as ordered as per TTS schedule. maintain hemodynamic stable. Patient not on ACEI/ARB due to low BP. on midodrine prior to HD started iron supplements, MVI, epogen with HD, and zemplar 2 mcg with HD. started on phos binders as renvela Dose meds/antibiotics for ESRD/HD status. Avoid fleets enema/magnesium based laxatives. 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 Thanks for allowing me to participate in care of your patient. Will follow patient with you. Please call if any Qs. Dr Edson Norton Office: [phone] Chief Complaint; unable to obtain reason for consult: CKD management source of Info: EMR HPI: Pt is a 76 F with hx of diabetes Mellitus ( years), hypertension (years), CHF, TIA, Colon CA, CKD stage 4/5, has matured AVG in left arm presented with complaints of AMS and hyperglycemia as brought by family. now has elevated trop 100, hyperkalemia, AMS and elevated sugar, pulm edema. renal consult for CKD management. pt with AMS unable to provide any hx. she had received medical management for hyperkalemia. ROS: unable to obtain Physical Examination: General Appearance: ill appearing, on O2 Vitals reviewed and noted as below Head; Atraumatic, normocephalic ENT: On O2 EYES: PERRLA Neck; supple no lymphadenopathy, no thyromegaly or bruit Lungs: Normal respiratory rate/effort. Breath sounds bilateral clear, she is mechanically ventilated Heart: Increased rate. s1s2 normal. No rub or gallop. Extremities: no edema. No varicose veins. chronic hyperpigmented changes in legs Neurological: Patient is awake follows commands, Not much communicative verbally Skin: Warm and dry. Normal turgor. No rash. Palpitation: Normal elasticity for age Abdomen: Abdomen is soft. Bowel sounds +. There is no abdominal tenderness, no guarding/rigidity no organomegaly Psych: unable MSK: no joint tenderness or swelling. Digits and nails normal, no deformity : kidney or bladder not palpable Access: Left AVG without bruit. has left permacath Labs/imaging reviewed. Past medical history, past surgical history, family history, social history, allergy reviewed and noted as below Family hx: no hx of CKD. Rest non-contributory Objective - Vital Signs/Intake and Output Vital Signs (last 24 hours): Temp Pulse Resp BP Pulse Ox 96.6 F L 116 H 20 101/44 L 100 09/12/17 13:10 09/12/17 13:10 09/12/17 13:10 09/12/17 13:10 09/12/17 13:10 Intake and Output: 09/12/17 09/12/17 06:59 18:59 Intake Total 56.7 345 Output Total 0 Balance 56.7 345 - Medications Medications: Current Medications Albuterol/Ipratropium (Duoneb 3 Mg/0.5 Mg (3 Ml) Ud) 3 ml INH RQ4 [facility] Last Admin: 09/12/17 11:12 Dose: Not Given Aspirin (Aspirin Chewable) 81 mg PO DAILY [facility] Last Admin: 09/12/17 09:20 Dose: 81 mg Diltiazem HCl (Cardizem) 30 mg PO Q6H [facility] Last Admin: 09/12/17 13:49 Dose: 30 mg Epoetin Alan (Procrit) 12,000 unit IV TTS [facility] Ferrous Gluconate (Fergon) 324 mg PO TID [facility] Last Admin: 09/12/17 13:49 Dose: 324 mg Heparin Sodium (Porcine) (Heparin) 1,000 units IVP TTS [facility] Hydromorphone HCl (Dilaudid) 0.5 mg IVP Q6H PRN PRN Reason: Pain, moderate (4-7) Vancomycin/Sodium Chloride (Vancomycin 1 Gm/Ns 200 Ml) 1 gm in 200 mls @ 133.333 mls/hr IVPB TTS [facility] PRN Reason: Protocol Stop: 09/19/17 10:01 Aztreonam 1 gm/ Sodium (Chloride) 100 mls @ 100 mls/hr IVPB TTS [facility] PRN Reason: Protocol Aztreonam 1 gm/ Sodium (Chloride) 100 mls @ 100 mls/hr IVPB ONCE ONE PRN Reason: Protocol Stop: 09/12/17 15:59 Insulin Aspart (Novolog) 0 unit SC Q6 [facility] PRN Reason: Protocol Last Admin: 09/12/17 12:07 Dose: 2 unit Insulin Glargine (Lantus) 5 unit SC HS [facility] Last Admin: 09/11/17 21:32 Dose: 5 u Metoprolol Tartrate (Lopressor) 25 mg PO BID [facility] Last Admin: 09/12/17 09:22 Dose: Not Given Midodrine (Proamatine) 10 mg PO TTS [facility] Pantoprazole Sodium (Protonix Inj) 40 mg IVP DAILY [facility] Last Admin: 09/12/17 09:20 Dose: 40 mg Paricalcitol (Zemplar) 2 mcg IV TTS [facility] Rosuvastatin Calcium (Crestor) 5 mg PO HS [facility] Last Admin: 09/11/17 21:32 Dose: 5 mg Sennosides (Senokot Tab) 8.6 mg NG DAILY [facility] Last Admin: 09/12/17 09:21 Dose: 8.6 mg Sevelamer Carbonate (Renvela) 800 mg PO TIDCC [facility] Last Admin: 09/12/17 12:08 Dose: 800 mg Vitamin B Complex/Vit C/Folic Acid (Nephro-Kamron) 1 tab PO 0800 [facility] Last Admin: 09/12/17 08:12 Dose: 1 tab Warfarin Sodium (Coumadin) 2.5 mg PO 1800 [facility] Stop: 09/12/17 18:01 - Labs Labs: 09/12/17 06:12 09/12/17 06:10 PT 28.9 SECONDS (9.7-12.2) H D 09/12/17 08:24 INR 2.4 D 09/12/17 08:24 APTT 29 SECONDS (21-34) 09/12/17 08:24
--- NOTE | 2017-09-12 17:16 | CP.CCUPN ---
<Nicole Basurto - Last Filed: 09/12/17 17:29> CCU Subjective - Physician Review Subjective (Free Text): 09/12/17 17:14 Patient seen and examined at bedside this morning. Per nursing no acute events overnight. Yesterday patient was hypotensive with SBPs in the 60s, Levophed was started. Currently Patient is off levophed drip, BPs stable. Patient is non- verbal but following simple commands. CCU Objective - Vital Signs / Intake & Output Vital Signs (Last 4 hours): Vital Signs Temp Pulse Resp BP Pulse Ox 09/12/17 17:06 110/69 09/12/17 16:04 100 H 17 87/56 L 100 09/12/17 16:00 96.4 F L 113 H 18 100 09/12/17 15:30 108 H 17 100 09/12/17 15:03 104 H 15 101/67 100 09/12/17 15:02 101 H 18 100 09/12/17 15:00 104 H 13 93 L 09/12/17 14:30 107 H 19 88 L 09/12/17 14:28 118 H 19 96/58 L 100 09/12/17 14:00 123 H 20 100 09/12/17 13:30 123 H 21 97 09/12/17 13:29 124 H 17 118/64 100 09/12/17 13:15 106 H 21 101/44 L Intake and Output (Last 8hrs): Intake & Output 09/12/17 09/12/17 09/12/17 06:59 14:59 22:59 Intake Total 22.8 525 160 Output Total 0 Balance 22.8 525 160 Weight 65.9 kg Intake: Intake, IV Amount 22.8 100 100 RT ij DISTAL PORT 22.8 0 Right Proximal Port 100 100 Internal Jugular Tube Feeding 175 60 Other 250 Output: Urine 0 Urine, Voided 0 - Physical Exam Head: Positive for: Atraumatic, Normocephalic. Negative for: Tenderness, Contusion, Swelling Pupils: Positive for: PERRL. Negative for: Sluggish, Non-Reactive Extroacular Muscles: Positive for: EOMI Conjunctiva: Positive for: Normal Mouth: Positive for: Dry Pharnyx: Positive for: Normal Nose (External): Positive for: Atraumatic, Other (NGT) Neck: Positive for: Trachea Midline, Other (R IJ central line, dialysis catheter on the left). Negative for: JVD Respiratory/Chest: Positive for: Good Air Exchange, Decreased Breath Sounds (on bilateral bases). Negative for: Wheezes Cardiovascular: Positive for: Irregular Rhythm, Tachycardic Abdomen: Positive for: Normal Bowel Sounds. Negative for: Peritoneal Signs Upper Extremity: Negative for: Cyanosis, Edema Lower Extremity: Negative for: Edema Skin: Positive for: Warm, Dry Psychiatric: Positive for: Alert - Medications Active Medications: Active Medications Generic Name Dose Route Start Last Admin Trade Name Freq PRN Reason Stop Dose Admin Albuterol/Ipratropium 3 ml 09/04/17 16:00 09/12/17 11:12 Duoneb 3 Mg/0.5 Mg (3 Ml) Ud INH Not Given RQ4 [facility] Aspirin 81 mg 08/30/17 10:00 09/12/17 09:20 Aspirin Chewable PO 81 mg DAILY [facility] Administration Diltiazem HCl 30 mg 09/10/17 07:00 09/12/17 13:49 Cardizem PO 30 mg Q6H [facility] Administration Epoetin Alan 12,000 unit 09/14/17 10:00 Procrit IV TTS [facility] Ferrous Gluconate 324 mg 08/31/17 10:00 09/12/17 17:09 Fergon PO 324 mg TID [facility] Administration Heparin Sodium (Porcine) 1,000 units 09/14/17 10:00 Heparin IVP TTS [facility] Hydromorphone HCl 0.5 mg 09/10/17 14:50 Dilaudid IVP Q6H PRN Pain, moderate (4-7) Vancomycin/Sodium Chloride 1 gm in 200 mls @ 133.333 mls/hr 09/14/17 10:00 Vancomycin 1 Gm/Ns 200 Ml IVPB 09/19/17 10:01 TTS [facility] Protocol Aztreonam 1 gm/ Sodium 100 mls @ 100 mls/hr 09/14/17 10:00 Chloride IVPB TTS [facility] Protocol Insulin Aspart 0 unit 09/01/17 11:49 09/12/17 17:09 Novolog SC 6 unit Q6 [facility] Administration Protocol Insulin Glargine 5 unit 09/03/17 22:00 09/11/17 21:32 Lantus SC 5 u HS [facility] Administration Metoprolol Tartrate 25 mg 09/06/17 08:00 09/12/17 17:06 Lopressor PO 25 mg BID [facility] Administration Midodrine 10 mg 09/14/17 10:00 Proamatine PO TTS [facility] Pantoprazole Sodium 40 mg 09/10/17 10:00 09/12/17 09:20 Protonix Inj IVP 40 mg DAILY [facility] Administration Paricalcitol 2 mcg 09/14/17 10:00 Zemplar IV TTS [facility] Rosuvastatin Calcium 5 mg 08/30/17 01:15 09/11/17 21:32 Crestor PO 5 mg HS [facility] Administration Sennosides 8.6 mg 09/10/17 10:00 09/12/17 09:21 Senokot Tab NG 8.6 mg DAILY [facility] Administration Sevelamer Carbonate 800 mg 09/11/17 12:00 09/12/17 17:06 Renvela PO 800 mg TIDCC [facility] Administration Vitamin B Complex/Vit C/Folic Acid 1 tab 08/31/17 08:00 09/12/17 08:12 Nephro-Kamron PO 1 tab 0800 [facility] Administration Warfarin Sodium 2.5 mg 09/12/17 18:00 09/12/17 17:06 Coumadin PO 09/12/17 18:01 2.5 mg 1800 [facility] Administration - Patient Studies Lab Studies: Microbiology Studies 09/10/17 11:30 Gram Stain - Final Trachasp Sputum Culture - Final Pseudomonas Aeruginosa 09/10/17 12:18 Catheter Tip Culture - Final Catheter Tip No Growth Lab Studies 09/12/17 09/12/17 09/12/17 Range/Units 17:07 11:16 08:24 WBC (4.8-10.8) K/uL RBC (3.80-5.20) Mil/uL Hgb (11.0-16.0) g/dL Hct (34.0-47.0) % MCV (81.0-99.0) fL MCH (27.0-31.0) pg MCHC (33.0-37.0) g/dL RDW (11.5-14.5) % Plt Count (130-400) K/uL MPV (7.2-11.7) fL Neut % (Auto) (50.0-75.0) % Lymph % (Auto) (20.0-40.0) % Bartholomew % (Auto) (0.0-10.0) % Eos % (Auto) (0.0-4.0) % Baso % (Auto) (0.0-2.0) % Neut # (Auto) (1.8-7.0) K/uL Lymph # (Auto) (1.0-4.3) K/uL Bartholomew # (Auto) (0.0-0.8) K/uL Eos # (Auto) (0.0-0.7) K/uL Baso # (Auto) (0.0-0.2) K/uL Neutrophils % (Manual) (50-75) % Lymphocytes % (Manual) (20-40) % Monocytes % (Manual) (0-10) % Platelet Estimate (NORMAL) Large Platelets Hypochromasia (manual) Poikilocytosis (manual Anisocytosis (manual) Target Cells Ovalocytes [place] Cells PT 28.9 H D (9.7-12.2) SECONDS INR 2.4 D APTT 29 (21-34) SECONDS Puncture Site pCO2 (35-45) mm/Hg pO2 (80-100) mm/Hg HCO3 (21-28) mmol/L ABG pH (7.35-7.45) ABG Total CO2 (22-28) mmol/L ABG O2 Saturation (95-98) % ABG Base Excess (-2.0-3.0) mmol/L Christian Test ABG Potassium (3.6-5.2) mmol/L A-a O2 Difference mm/Hg Respiratory Index Sodium (132-148) mmol/l Chloride (98-107) mmol/L Glucose (65-105) mg/dl Lactate (0.7-2.1) mmol/L FiO2 % Potassium (3.6-5.2) mmol/L Carbon Dioxide (22-30) mmol/L Anion Gap (10-20) BUN (7-17) mg/dL Creatinine (0.7-1.2) mg/dL Est GFR ( Amer) Est GFR (Non-Af Amer) POC Glucose (mg/dL) 251 H 173 H (65-110) mg/dL Random Glucose (65-105) mg/dL Calcium (8.6-10.4) mg/dl Phosphorus (2.5-4.5) mg/dL Magnesium (1.6-2.3) mg/dL Total Bilirubin (0.2-1.3) mg/dL AST (14-36) U/L ALT (9-52) U/L Alkaline Phosphatase (38-126) U/L Total Protein (6.3-8.3) g/dL Albumin (3.5-5.0) g/dL Globulin (2.2-3.9) gm/dL Albumin/Globulin Ratio (1.0-2.1) Arterial Blood Potassium (3.6-5.2) mmol/L 09/12/17 09/12/17 09/12/17 Range/Units 06:12 06:10 05:31 WBC 24.0 H (4.8-10.8) K/uL RBC 3.34 L (3.80-5.20) Mil/uL Hgb 9.2 L (11.0-16.0) g/dL Hct 29.1 L (34.0-47.0) % MCV 87.0 (81.0-99.0) fL MCH 27.7 (27.0-31.0) pg MCHC 31.8 L (33.0-37.0) g/dL RDW 17.7 H (11.5-14.5) % Plt Count 228 (130-400) K/uL MPV 9.7 (7.2-11.7) fL Neut % (Auto) 96.9 H (50.0-75.0) % Lymph % (Auto) 0.8 L (20.0-40.0) % Bartholomew % (Auto) 2.2 (0.0-10.0) % Eos % (Auto) 0.0 (0.0-4.0) % Baso % (Auto) 0.1 (0.0-2.0) % Neut # (Auto) 23.3 H (1.8-7.0) K/uL Lymph # (Auto) 0.2 L (1.0-4.3) K/uL Bartholomew # (Auto) 0.5 (0.0-0.8) K/uL Eos # (Auto) 0.0 (0.0-0.7) K/uL Baso # (Auto) 0.0 (0.0-0.2) K/uL Neutrophils % (Manual) 98 H (50-75) % Lymphocytes % (Manual) 1 L (20-40) % Monocytes % (Manual) 1 (0-10) % Platelet Estimate Normal (NORMAL) Large Platelets Present Hypochromasia (manual) Slight Poikilocytosis (manual Slight Anisocytosis (manual) Slight Target Cells Slight Ovalocytes Slight Elías Cells Moderate PT (9.7-12.2) SECONDS INR APTT (21-34) SECONDS Puncture Site pCO2 (35-45) mm/Hg pO2 (80-100) mm/Hg HCO3 (21-28) mmol/L ABG pH (7.35-7.45) ABG Total CO2 (22-28) mmol/L ABG O2 Saturation (95-98) % ABG Base Excess (-2.0-3.0) mmol/L Christian Test ABG Potassium (3.6-5.2) mmol/L A-a O2 Difference mm/Hg Respiratory Index Sodium 137 (132-148) mmol/l Chloride 98 (98-107) mmol/L Glucose (65-105) mg/dl Lactate (0.7-2.1) mmol/L FiO2 % Potassium 4.9 (3.6-5.2) mmol/L Carbon Dioxide 19 L (22-30) mmol/L Anion Gap 25 H (10-20) BUN 95 H (7-17) mg/dL Creatinine 5.1 H (0.7-1.2) mg/dL Est GFR ( Amer) 10 Est GFR (Non-Af Amer) 8 POC Glucose (mg/dL) 273 H (65-110) mg/dL Random Glucose 236 H (65-105) mg/dL Calcium 8.7 (8.6-10.4) mg/dl Phosphorus 8.6 H (2.5-4.5) mg/dL Magnesium 2.3 (1.6-2.3) mg/dL Total Bilirubin 0.8 (0.2-1.3) mg/dL AST 29 (14-36) U/L ALT 214 H (9-52) U/L Alkaline Phosphatase 159 H (38-126) U/L Total Protein 6.0 L (6.3-8.3) g/dL Albumin 3.0 L (3.5-5.0) g/dL Globulin 3.0 (2.2-3.9) gm/dL Albumin/Globulin Ratio 1.0 (1.0-2.1) Arterial Blood Potassium (3.6-5.2) mmol/L 09/12/17 09/11/17 09/11/17 Range/Units 00:14 17:55 17:20 WBC (4.8-10.8) K/uL RBC (3.80-5.20) Mil/uL Hgb (11.0-16.0) g/dL Hct (34.0-47.0) % MCV (81.0-99.0) fL MCH (27.0-31.0) pg MCHC (33.0-37.0) g/dL RDW (11.5-14.5) % Plt Count (130-400) K/uL MPV (7.2-11.7) fL Neut % (Auto) (50.0-75.0) % Lymph % (Auto) (20.0-40.0) % Bartholomew % (Auto) (0.0-10.0) % Eos % (Auto) (0.0-4.0) % Baso % (Auto) (0.0-2.0) % Neut # (Auto) (1.8-7.0) K/uL Lymph # (Auto) (1.0-4.3) K/uL Bartholomew # (Auto) (0.0-0.8) K/uL Eos # (Auto) (0.0-0.7) K/uL Baso # (Auto) (0.0-0.2) K/uL Neutrophils % (Manual) (50-75) % Lymphocytes % (Manual) (20-40) % Monocytes % (Manual) (0-10) % Platelet Estimate (NORMAL) Large Platelets Hypochromasia (manual) Poikilocytosis (manual Anisocytosis (manual) Target Cells Ovalocytes Elías Cells PT (9.7-12.2) SECONDS INR APTT (21-34) SECONDS Puncture Site Rra pCO2 33 L (35-45) mm/Hg pO2 47 L (80-100) mm/Hg HCO3 21.3 (21-28) mmol/L ABG pH 7.39 (7.35-7.45) ABG Total CO2 21.0 L (22-28) mmol/L ABG O2 Saturation 85.8 L (95-98) % ABG Base Excess -4.1 L (-2.0-3.0) mmol/L Christian Test Pos ABG Potassium 4.4 (3.6-5.2) mmol/L A-a O2 Difference 625.0 mm/Hg Respiratory Index 13.3 Sodium 137.0 (132-148) mmol/l Chloride 102.0 (98-107) mmol/L Glucose 249 H (65-105) mg/dl Lactate 2.0 (0.7-2.1) mmol/L FiO2 100.0 % Potassium (3.6-5.2) mmol/L Carbon Dioxide (22-30) mmol/L Anion Gap (10-20) BUN (7-17) mg/dL Creatinine (0.7-1.2) mg/dL Est GFR ( Amer) Est GFR (Non-Af Amer) POC Glucose (mg/dL) 210 H 276 H (65-110) mg/dL Random Glucose (65-105) mg/dL Calcium (8.6-10.4) mg/dl Phosphorus (2.5-4.5) mg/dL Magnesium (1.6-2.3) mg/dL Total Bilirubin (0.2-1.3) mg/dL AST (14-36) U/L ALT (9-52) U/L Alkaline Phosphatase (38-126) U/L Total Protein (6.3-8.3) g/dL Albumin (3.5-5.0) g/dL Globulin (2.2-3.9) gm/dL Albumin/Globulin Ratio (1.0-2.1) Arterial Blood Potassium 4.4 (3.6-5.2) mmol/L Laboratory Results - last 24 hr 09/11/17 09/11/17 09/12/17 17:20 17:55 00:14 WBC RBC Hgb Hct MCV MCH MCHC RDW Plt Count MPV Neut % (Auto) Lymph % (Auto) Bartholomew % (Auto) Eos % (Auto) Baso % (Auto) Neut # (Auto) Lymph # (Auto) Bartholomew # (Auto) Eos # (Auto) Baso # (Auto) Neutrophils % (Manual) Lymphocytes % (Manual) Monocytes % (Manual) Platelet Estimate Large Platelets Hypochromasia (manual) Poikilocytosis (manual Anisocytosis (manual) Target Cells Ovalocytes [place] Cells PT INR APTT Puncture Site Rra pCO2 33 L pO2 47 L HCO3 21.3 ABG pH 7.39 ABG Total CO2 21.0 L ABG O2 Saturation 85.8 L ABG Base Excess -4.1 L Christian Test Pos ABG Potassium 4.4 A-a O2 Difference 625.0 Respiratory Index 13.3 Sodium 137.0 Chloride 102.0 Glucose 249 H Lactate 2.0 FiO2 100.0 Potassium Carbon Dioxide Anion Gap BUN Creatinine Est GFR ( Amer) Est GFR (Non-Af Amer) POC Glucose (mg/dL) 276 H 210 H Random Glucose Calcium Phosphorus Magnesium Total Bilirubin AST ALT Alkaline Phosphatase Total Protein Albumin Globulin Albumin/Globulin Ratio Arterial Blood Potassium 4.4 09/12/17 09/12/17 09/12/17 05:31 06:10 06:12 WBC 24.0 H RBC 3.34 L Hgb 9.2 L Hct 29.1 L MCV 87.0 MCH 27.7 MCHC 31.8 L RDW 17.7 H Plt Count 228 MPV 9.7 Neut % (Auto) 96.9 H Lymph % (Auto) 0.8 L Bartholomew % (Auto) 2.2 Eos % (Auto) 0.0 Baso % (Auto) 0.1 Neut # (Auto) 23.3 H Lymph # (Auto) 0.2 L Bartholomew # (Auto) 0.5 Eos # (Auto) 0.0 Baso # (Auto) 0.0 Neutrophils % (Manual) 98 H Lymphocytes % (Manual) 1 L Monocytes % (Manual) 1 Platelet Estimate Normal Large Platelets Present Hypochromasia (manual) Slight Poikilocytosis (manual Slight Anisocytosis (manual) Slight Target Cells Slight Ovalocytes Slight [place] Cells Moderate PT INR APTT Puncture Site pCO2 pO2 HCO3 ABG pH ABG Total CO2 ABG O2 Saturation ABG Base Excess Christian Test ABG Potassium A-a O2 Difference Respiratory Index Sodium 137 Chloride 98 Glucose Lactate FiO2 Potassium 4.9 Carbon Dioxide 19 L Anion Gap 25 H BUN 95 H Creatinine 5.1 H Est GFR ( Amer) 10 Est GFR (Non-Af Amer) 8 POC Glucose (mg/dL) 273 H Random Glucose 236 H Calcium 8.7 Phosphorus 8.6 H Magnesium 2.3 Total Bilirubin 0.8 AST 29 ALT 214 H Alkaline Phosphatase 159 H Total Protein 6.0 L Albumin 3.0 L Globulin 3.0 Albumin/Globulin Ratio 1.0 Arterial Blood Potassium 09/12/17 09/12/17 09/12/17 08:24 11:16 17:07 WBC RBC Hgb Hct MCV MCH MCHC RDW Plt Count MPV Neut % (Auto) Lymph % (Auto) Bartholomew % (Auto) Eos % (Auto) Baso % (Auto) Neut # (Auto) Lymph # (Auto) Bartholomew # (Auto) Eos # (Auto) Baso # (Auto) Neutrophils % (Manual) Lymphocytes % (Manual) Monocytes % (Manual) Platelet Estimate Large Platelets Hypochromasia (manual) Poikilocytosis (manual Anisocytosis (manual) Target Cells Ovalocytes [place] Cells PT 28.9 H D INR 2.4 D APTT 29 Puncture Site pCO2 pO2 HCO3 ABG pH ABG Total CO2 ABG O2 Saturation ABG Base Excess Christian Test ABG Potassium A-a O2 Difference Respiratory Index Sodium Chloride Glucose Lactate FiO2 Potassium Carbon Dioxide Anion Gap BUN Creatinine Est GFR ( Amer) Est GFR (Non-Af Amer) POC Glucose (mg/dL) 173 H 251 H Random Glucose Calcium Phosphorus Magnesium Total Bilirubin AST ALT Alkaline Phosphatase Total Protein Albumin Globulin Albumin/Globulin Ratio Arterial Blood Potassium Fingerstick Blood Sugar Results: 251 Critical Care Progress Note - Nutrition Nutrition: Nutrition Category Date Time Status NPO Diet [DIET] Diets 09/09/17 Dinner Active Assessment/Plan - Assessment and Plan (Free Text) Assessment: This is a 76 year old female with a history of ESRD on HD, CHF, DM, HTN, hypercholesterolemia, and some sort of CO years before, repeated TIAs, and colon CA. She was brought in by family for altered mental status and ultimately found to have severe metabolic acidosis as well as a extremely elevated troponins. Neurology: -Patient is awake and alert -Sating well on NC -Patient failed nursing bedside swallow evaluation, NGT in place -Swallow eval and PT eval ordered -Will downgrade patient to Med/Surg telemetry Cardiology: -NSTEMI, Hx of afib -Patient was hypotensive yesterday, currently normotensive -Will start Midodrine 10mg Q12H on TThS -Family is currently refusing for intervention for coronary. -Will need to discuss goals of care with the family, palliative care on board -INR 2.4 today -Coumadin dose decreased 2.5mg PO daily -Continue Crestor 20mg PO HS, Aspirin 81mg daily -Continue Cardizem 30mg PO Q6H -Continue Metoprolol 25mg PO BID -Cardiology on consult, help appreciated Pulmonary: -Extubated, sating well on nasal cannula -Treating for Acute hypoxemic respiratory failure, respiratory acidosis from acute pulmonary edema and pneumonia -CXR: Moderate venous congestion. Moderate loculated pleural effusion with consolidative changes in the left mid to lower lung zone, cardiomegaly. -Solumedrol 40mg IVP daily -Sputum culture growing pseudomonas, sensitivities reviewed Hematology: -Continue Ferrous sulfate 325mg PO TID GI: -Sennakot daily and Ducolax suppository ordered -AST/ALT elevated likely secondary to shock liver, currently trending down -Will continue to monitor, avoid hepatotoxic agents -Patient failed nursing bedside swallow eval, swallow evaluation ordered -GI consulted for peg tube placement, will f/u recommendation Renal: -S/P permacath placement -Continue Epoetin -Contiune Renvela -Patient received Hemodialysis today and tolerated it, scheduled changed to TThS -Social work consult placed, patient will need joint terminal attack controller dialysis -Vascular surgery on consult, help appreciated -Nephrology on consult, f/u recommendations Endocrine: -History of diabetes mellitus -Continue Lantus 5 units SC HS -ISS, accuchecks Infectious Disease: -Permacath tip sent for culture, no growth -Sputum culture growing pseudomonas, sensitivities reviewed -Antibiotics: Aztreonam 1gm Q12H TThS, Vancomycin 1gm IV daily TThS -Leukocytosis increased 24 today -Blood cultures have been negative -Infectious disease on consult, f/u recommendations GI/DVT ppx: -Heparin 5000 units Q8H SC -Protonix 40mg IVP daily <Kai Mann - Last Filed: 09/12/17 18:50> CCU Objective - Vital Signs / Intake & Output Vital Signs (Last 4 hours): Vital Signs Temp Pulse Resp BP Pulse Ox 09/12/17 18:27 97.4 F L 100 H 20 97/59 L 100 09/12/17 17:06 110/69 09/12/17 17:03 112 H 22 110/69 100 09/12/17 17:01 119 H 25 H 106/61 100 09/12/17 17:00 105 H 13 100 09/12/17 16:30 99 H 17 100 09/12/17 16:04 100 H 17 87/56 L 100 09/12/17 16:00 96.4 F L 113 H 18 100 09/12/17 15:30 108 H 17 100 09/12/17 15:03 104 H 15 101/67 100 09/12/17 15:02 101 H 18 100 09/12/17 15:00 104 H 13 93 L Intake and Output (Last 8hrs): Intake & Output 09/12/17 09/12/17 09/12/17 06:59 14:59 22:59 Intake Total 22.8 525 250 Output Total 0 0 Balance 22.8 525 250 Weight 145 lb 4.554 oz Intake: Intake, IV Amount 22.8 100 100 RT ij DISTAL PORT 22.8 0 Right Proximal Port 100 100 Internal Jugular Tube Feeding 175 90 Other 250 60 Output: Urine 0 0 Urine, Voided 0 0 - Medications Active Medications: Active Medications Generic Name Dose Route Start Last Admin Trade Name Freq PRN Reason Stop Dose Admin Albuterol/Ipratropium 3 ml 09/04/17 16:00 09/12/17 11:12 Duoneb 3 Mg/0.5 Mg (3 Ml) Ud INH Not Given RQ4 [facility] Aspirin 81 mg 08/30/17 10:00 09/12/17 09:20 Aspirin Chewable PO 81 mg DAILY [facility] Administration Diltiazem HCl 30 mg 09/10/17 07:00 09/12/17 18:29 Cardizem PO Not Given Q6H [facility] Epoetin Alan 12,000 unit 09/14/17 10:00 Procrit IV TTS [facility] Ferrous Gluconate 324 mg 08/31/17 10:00 09/12/17 17:09 Fergon PO 324 mg TID [facility] Administration Heparin Sodium (Porcine) 1,000 units 09/14/17 10:00 Heparin IVP TTS [facility] Hydromorphone HCl 0.5 mg 09/10/17 14:50 Dilaudid IVP Q6H PRN Pain, moderate (4-7) Vancomycin/Sodium Chloride 1 gm in 200 mls @ 133.333 mls/hr 09/14/17 10:00 Vancomycin 1 Gm/Ns 200 Ml IVPB 09/19/17 10:01 TTS [facility] Protocol Aztreonam 1 gm/ Sodium 100 mls @ 100 mls/hr 09/14/17 10:00 Chloride IVPB TTS [facility] Protocol Insulin Aspart 0 unit 09/01/17 11:49 09/12/17 17:09 Novolog SC 6 unit Q6 [facility] Administration Protocol Insulin Glargine 5 unit 09/03/17 22:00 09/11/17 21:32 Lantus SC 5 u HS [facility] Administration Metoprolol Tartrate 25 mg 09/06/17 08:00 09/12/17 17:06 Lopressor PO 25 mg BID [facility] Administration Midodrine 10 mg 09/14/17 10:00 Proamatine PO TTS [facility] Midodrine 10 mg 09/14/17 18:00 Proamatine PO TTS [facility] Pantoprazole Sodium 40 mg 09/10/17 10:00 09/12/17 09:20 Protonix Inj IVP 40 mg DAILY [facility] Administration Paricalcitol 2 mcg 09/14/17 10:00 Zemplar IV TTS [facility] Rosuvastatin Calcium 5 mg 08/30/17 01:15 09/11/17 21:32 Crestor PO 5 mg HS [facility] Administration Sennosides 8.6 mg 09/10/17 10:00 09/12/17 09:21 Senokot Tab NG 8.6 mg DAILY [facility] Administration Sevelamer Carbonate 800 mg 09/11/17 12:00 09/12/17 17:06 Renvela PO 800 mg TIDCC [facility] Administration Vitamin B Complex/Vit C/Folic Acid 1 tab 08/31/17 08:00 09/12/17 08:12 Nephro-Kamron PO 1 tab 0800 [facility] Administration - Patient Studies Lab Studies: Microbiology Studies 09/10/17 11:30 Gram Stain - Final Trachasp Sputum Culture - Final Pseudomonas Aeruginosa 09/10/17 12:18 Catheter Tip Culture - Final Catheter Tip No Growth Lab Studies 09/12/17 09/12/17 09/12/17 Range/Units 17:07 11:16 08:24 WBC (4.8-10.8) K/uL RBC (3.80-5.20) Mil/uL Hgb (11.0-16.0) g/dL Hct (34.0-47.0) % MCV (81.0-99.0) fL MCH (27.0-31.0) pg MCHC (33.0-37.0) g/dL RDW (11.5-14.5) % Plt Count (130-400) K/uL MPV (7.2-11.7) fL Neut % (Auto) (50.0-75.0) % Lymph % (Auto) (20.0-40.0) % Bartholomew % (Auto) (0.0-10.0) % Eos % (Auto) (0.0-4.0) % Baso % (Auto) (0.0-2.0) % Neut # (Auto) (1.8-7.0) K/uL Lymph # (Auto) (1.0-4.3) K/uL Bartholomew # (Auto) (0.0-0.8) K/uL Eos # (Auto) (0.0-0.7) K/uL Baso # (Auto) (0.0-0.2) K/uL Neutrophils % (Manual) (50-75) % Lymphocytes % (Manual) (20-40) % Monocytes % (Manual) (0-10) % Platelet Estimate (NORMAL) Large Platelets Hypochromasia (manual) Poikilocytosis (manual Anisocytosis (manual) Target Cells Ovalocytes Elías Cells PT 28.9 H D (9.7-12.2) SECONDS INR 2.4 D APTT 29 (21-34) SECONDS Sodium (132-148) mmol/L Potassium (3.6-5.2) mmol/L Chloride (98-107) mmol/L Carbon Dioxide (22-30) mmol/L Anion Gap (10-20) BUN (7-17) mg/dL Creatinine (0.7-1.2) mg/dL Est GFR ( Amer) Est GFR (Non-Af Amer) POC Glucose (mg/dL) 251 H 173 H (65-110) mg/dL Random Glucose (65-105) mg/dL Calcium (8.6-10.4) mg/dl Phosphorus (2.5-4.5) mg/dL Magnesium (1.6-2.3) mg/dL Total Bilirubin (0.2-1.3) mg/dL AST (14-36) U/L ALT (9-52) U/L Alkaline Phosphatase (38-126) U/L Total Protein (6.3-8.3) g/dL Albumin (3.5-5.0) g/dL Globulin (2.2-3.9) gm/dL Albumin/Globulin Ratio (1.0-2.1) 09/12/17 09/12/17 09/12/17 Range/Units 06:12 06:10 05:31 WBC 24.0 H (4.8-10.8) K/uL RBC 3.34 L (3.80-5.20) Mil/uL Hgb 9.2 L (11.0-16.0) g/dL Hct 29.1 L (34.0-47.0) % MCV 87.0 (81.0-99.0) fL MCH 27.7 (27.0-31.0) pg MCHC 31.8 L (33.0-37.0) g/dL RDW 17.7 H (11.5-14.5) % Plt Count 228 (130-400) K/uL MPV 9.7 (7.2-11.7) fL Neut % (Auto) 96.9 H (50.0-75.0) % Lymph % (Auto) 0.8 L (20.0-40.0) % Bartholomew % (Auto) 2.2 (0.0-10.0) % Eos % (Auto) 0.0 (0.0-4.0) % Baso % (Auto) 0.1 (0.0-2.0) % Neut # (Auto) 23.3 H (1.8-7.0) K/uL Lymph # (Auto) 0.2 L (1.0-4.3) K/uL Bartholomew # (Auto) 0.5 (0.0-0.8) K/uL Eos # (Auto) 0.0 (0.0-0.7) K/uL Baso # (Auto) 0.0 (0.0-0.2) K/uL Neutrophils % (Manual) 98 H (50-75) % Lymphocytes % (Manual) 1 L (20-40) % Monocytes % (Manual) 1 (0-10) % Platelet Estimate Normal (NORMAL) Large Platelets Present Hypochromasia (manual) Slight Poikilocytosis (manual Slight Anisocytosis (manual) Slight Target Cells Slight Ovalocytes Slight Elías Cells Moderate PT (9.7-12.2) SECONDS INR APTT (21-34) SECONDS Sodium 137 (132-148) mmol/L Potassium 4.9 (3.6-5.2) mmol/L Chloride 98 (98-107) mmol/L Carbon Dioxide 19 L (22-30) mmol/L Anion Gap 25 H (10-20) BUN 95 H (7-17) mg/dL Creatinine 5.1 H (0.7-1.2) mg/dL Est GFR ( Amer) 10 Est GFR (Non-Af Amer) 8 POC Glucose (mg/dL) 273 H (65-110) mg/dL Random Glucose 236 H (65-105) mg/dL Calcium 8.7 (8.6-10.4) mg/dl Phosphorus 8.6 H (2.5-4.5) mg/dL Magnesium 2.3 (1.6-2.3) mg/dL Total Bilirubin 0.8 (0.2-1.3) mg/dL AST 29 (14-36) U/L ALT 214 H (9-52) U/L Alkaline Phosphatase 159 H (38-126) U/L Total Protein 6.0 L (6.3-8.3) g/dL Albumin 3.0 L (3.5-5.0) g/dL Globulin 3.0 (2.2-3.9) gm/dL Albumin/Globulin Ratio 1.0 (1.0-2.1) 18 Range/Units 00:14 WBC (4.8-10.8) K/uL RBC (3.80-5.20) Mil/uL Hgb (11.0-16.0) g/dL Hct (34.0-47.0) % MCV (81.0-99.0) fL MCH (27.0-31.0) pg MCHC (33.0-37.0) g/dL RDW (11.5-14.5) % Plt Count (130-400) K/uL MPV (7.2-11.7) fL Neut % (Auto) (50.0-75.0) % Lymph % (Auto) (20.0-40.0) % Bartholomew % (Auto) (0.0-10.0) % Eos % (Auto) (0.0-4.0) % Baso % (Auto) (0.0-2.0) % Neut # (Auto) (1.8-7.0) K/uL Lymph # (Auto) (1.0-4.3) K/uL Bartholomew # (Auto) (0.0-0.8) K/uL Eos # (Auto) (0.0-0.7) K/uL Baso # (Auto) (0.0-0.2) K/uL Neutrophils % (Manual) (50-75) % Lymphocytes % (Manual) (20-40) % Monocytes % (Manual) (0-10) % Platelet Estimate (NORMAL) Large Platelets Hypochromasia (manual) Poikilocytosis (manual Anisocytosis (manual) Target Cells Ovalocytes Elías Cells PT (9.7-12.2) SECONDS INR APTT (21-34) SECONDS Sodium (132-148) mmol/L Potassium (3.6-5.2) mmol/L Chloride (98-107) mmol/L Carbon Dioxide (22-30) mmol/L Anion Gap (10-20) BUN (7-17) mg/dL Creatinine (0.7-1.2) mg/dL Est GFR ( Amer) Est GFR (Non-Af Amer) POC Glucose (mg/dL) 210 H (65-110) mg/dL Random Glucose (65-105) mg/dL Calcium (8.6-10.4) mg/dl Phosphorus (2.5-4.5) mg/dL Magnesium (1.6-2.3) mg/dL Total Bilirubin (0.2-1.3) mg/dL AST (14-36) U/L ALT (9-52) U/L Alkaline Phosphatase (38-126) U/L Total Protein (6.3-8.3) g/dL Albumin (3.5-5.0) g/dL Globulin (2.2-3.9) gm/dL Albumin/Globulin Ratio (1.0-2.1) Laboratory Results - last 24 hr 09/12/17 09/12/17 09/12/17 00:14 05:31 06:10 WBC RBC Hgb Hct MCV MCH MCHC RDW Plt Count MPV Neut % (Auto) Lymph % (Auto) Bartholomew % (Auto) Eos % (Auto) Baso % (Auto) Neut # (Auto) Lymph # (Auto) Bartholomew # (Auto) Eos # (Auto) Baso # (Auto) Neutrophils % (Manual) Lymphocytes % (Manual) Monocytes % (Manual) Platelet Estimate Large Platelets Hypochromasia (manual) Poikilocytosis (manual Anisocytosis (manual) Target Cells Ovalocytes Elías Cells PT INR APTT Sodium 137 Potassium 4.9 Chloride 98 Carbon Dioxide 19 L Anion Gap 25 H BUN 95 H Creatinine 5.1 H Est GFR ( Amer) 10 Est GFR (Non-Af Amer) 8 POC Glucose (mg/dL) 210 H 273 H Random Glucose 236 H Calcium 8.7 Phosphorus 8.6 H Magnesium 2.3 Total Bilirubin 0.8 AST 29 ALT 214 H Alkaline Phosphatase 159 H Total Protein 6.0 L Albumin 3.0 L Globulin 3.0 Albumin/Globulin Ratio 1.0 09/12/17 09/12/17 09/12/17 06:12 08:24 11:16 WBC 24.0 H RBC 3.34 L Hgb 9.2 L Hct 29.1 L MCV 87.0 MCH 27.7 MCHC 31.8 L RDW 17.7 H Plt Count 228 MPV 9.7 Neut % (Auto) 96.9 H Lymph % (Auto) 0.8 L Bartholomew % (Auto) 2.2 Eos % (Auto) 0.0 Baso % (Auto) 0.1 Neut # (Auto) 23.3 H Lymph # (Auto) 0.2 L Bartholomew # (Auto) 0.5 Eos # (Auto) 0.0 Baso # (Auto) 0.0 Neutrophils % (Manual) 98 H Lymphocytes % (Manual) 1 L Monocytes % (Manual) 1 Platelet Estimate Normal Large Platelets Present Hypochromasia (manual) Slight Poikilocytosis (manual Slight Anisocytosis (manual) Slight Target Cells Slight Ovalocytes Slight Elías Cells Moderate PT 28.9 H D INR 2.4 D APTT 29 Sodium Potassium Chloride Carbon Dioxide Anion Gap BUN Creatinine Est GFR ( Amer) Est GFR (Non-Af Amer) POC Glucose (mg/dL) 173 H Random Glucose Calcium Phosphorus Magnesium Total Bilirubin AST ALT Alkaline Phosphatase Total Protein Albumin Globulin Albumin/Globulin Ratio 09/12/17 17:07 WBC RBC Hgb Hct MCV MCH MCHC RDW Plt Count MPV Neut % (Auto) Lymph % (Auto) Bartholomew % (Auto) Eos % (Auto) Baso % (Auto) Neut # (Auto) Lymph # (Auto) Bartholomew # (Auto) Eos # (Auto) Baso # (Auto) Neutrophils % (Manual) Lymphocytes % (Manual) Monocytes % (Manual) Platelet Estimate Large Platelets Hypochromasia (manual) Poikilocytosis (manual Anisocytosis (manual) Target Cells Ovalocytes Elías Cells PT INR APTT Sodium Potassium Chloride Carbon Dioxide Anion Gap BUN Creatinine Est GFR ( Amer) Est GFR (Non-Af Amer) POC Glucose (mg/dL) 251 H Random Glucose Calcium Phosphorus Magnesium Total Bilirubin AST ALT Alkaline Phosphatase Total Protein Albumin Globulin Albumin/Globulin Ratio Critical Care Progress Note - Nutrition Nutrition: Nutrition Category Date Time Status NPO Diet [DIET] Diets 09/09/17 Dinner Active Assessment/Plan (1) Cardiac arrest Current Visit: Yes Status: Acute Attending/Attestation - Attestation I have personally seen and examined this patient.: Yes I have fully participated in the care of the patient.: Yes I have reviewed all pertinent clinical information: Yes Notes (Text): 09/12/17 18:49 I have seen and examined the patient. Medical records, lab studies, and imaging were reviewed by me and a management plan was formulated on multidisciplinary rounds with resident Dr. Basurto. I agree with their documented assessment and plan. Patient will most likely need PEG placement, GI consulted, wants tto give her more time for improvement for swallow evaluation. Started on Midodrine on dialysis days. Patient will also need albumin during dialysis to prevent hypotension. Clinically stable for downgrade to the floors. Critical Care Time 35 minutes. Multi-disciplinary rounds were performed with house staff, nursing, speech therapy, respiratory therapy, pharmacy and nutrition with integrated input from the primary team/attending and other consulting services. The documented time is cumulative and includes review of patient data/exams/labs/chart review and examination of the patient on rounds and throughout the day; time is exclusive of any procedures or teaching time.
--- NOTE | 2017-09-12 18:59 | CP.PCM.PN ---
Subjective - Date & Time of Evaluation Date of Evaluation: 09/12/17 Time of Evaluation: 02:00 - Subjective Subjective: dictated Objective - Vital Signs/Intake and Output Vital Signs (last 24 hours): Temp Pulse Resp BP Pulse Ox 97.4 F L 100 H 20 97/59 L 100 09/12/17 18:27 09/12/17 18:27 09/12/17 18:27 09/12/17 18:27 09/12/17 18:27 Intake and Output: 09/12/17 09/12/17 06:59 18:59 Intake Total 56.7 775 Output Total 0 0 Balance 56.7 775 - Medications Medications: Current Medications Albuterol/Ipratropium (Duoneb 3 Mg/0.5 Mg (3 Ml) Ud) 3 ml INH RQ4 [facility] Last Admin: 09/12/17 11:12 Dose: Not Given Aspirin (Aspirin Chewable) 81 mg PO DAILY [facility] Last Admin: 09/12/17 09:20 Dose: 81 mg Diltiazem HCl (Cardizem) 30 mg PO Q6H [facility] Last Admin: 09/12/17 18:29 Dose: Not Given Epoetin Alan (Procrit) 12,000 unit IV TTS [facility] Ferrous Gluconate (Fergon) 324 mg PO TID [facility] Last Admin: 09/12/17 17:09 Dose: 324 mg Heparin Sodium (Porcine) (Heparin) 1,000 units IVP TTS [facility] Hydromorphone HCl (Dilaudid) 0.5 mg IVP Q6H PRN PRN Reason: Pain, moderate (4-7) Vancomycin/Sodium Chloride (Vancomycin 1 Gm/Ns 200 Ml) 1 gm in 200 mls @ 133.333 mls/hr IVPB TTS [facility] PRN Reason: Protocol Stop: 09/19/17 10:01 Aztreonam 1 gm/ Sodium (Chloride) 100 mls @ 100 mls/hr IVPB DAILY [facility] PRN Reason: Protocol Insulin Aspart (Novolog) 0 unit SC Q6 [facility] PRN Reason: Protocol Last Admin: 09/12/17 17:09 Dose: 6 unit Insulin Glargine (Lantus) 5 unit SC HS [facility] Last Admin: 09/11/17 21:32 Dose: 5 u Metoprolol Tartrate (Lopressor) 25 mg PO BID [facility] Last Admin: 09/12/17 17:06 Dose: 25 mg Midodrine (Proamatine) 10 mg PO TTS [facility] Midodrine (Proamatine) 10 mg PO TTS [facility] Pantoprazole Sodium (Protonix Inj) 40 mg IVP DAILY [facility] Last Admin: 09/12/17 09:20 Dose: 40 mg Paricalcitol (Zemplar) 2 mcg IV TTS [facility] Rosuvastatin Calcium (Crestor) 5 mg PO HS [facility] Last Admin: 09/11/17 21:32 Dose: 5 mg Sennosides (Senokot Tab) 8.6 mg NG DAILY [facility] Last Admin: 09/12/17 09:21 Dose: 8.6 mg Sevelamer Carbonate (Renvela) 800 mg PO TIDCC [facility] Last Admin: 09/12/17 17:06 Dose: 800 mg Vitamin B Complex/Vit C/Folic Acid (Nephro-Kamron) 1 tab PO 0800 [facility] Last Admin: 09/12/17 08:12 Dose: 1 tab - Labs Labs: 09/12/17 06:12 09/12/17 06:10 PT 28.9 SECONDS (9.7-12.2) H D 09/12/17 08:24 INR 2.4 D 09/12/17 08:24 APTT 29 SECONDS (21-34) 09/12/17 08:24
[2017-09-12] MEDS: (Lantus) Insulin Glargine, Recombinant SC SCH (21:24)
--- NOTE | 2017-09-13 00:25 | PN ---
DATE: SUBJECTIVE: The patient is afebrile, but she is on a nonrebreathing mask at this time. PHYSICAL EXAMINATION: VITAL SIGNS: T-max is 97.4, pulse of 100, blood pressure is low at 97/59, respirations are 20. GENERAL: She is lethargic. NECK: Supple. LUNGS: Have coarse breath sounds. HEART: S1 and S2 irregularly regular. ABDOMEN: Soft, flabby, and nontender. EXTREMITIES: Bilateral Venodyne boots on, and the patient may have some edema. She has been on dialysis. LABORATORY DATA: White count is 24, hemoglobin is 9.2, hematocrit 29, and platelet count is 228. Neutrophils are 96, lymphs 0.8, and she has been on Azactam, and she is on dialysis, so at this time we will continue Azactam 1 gm daily and we will follow. IMPRESSION: The patient has pseudomonas in the sputum, and she needs to be treated and it is a pretty sensitive organism, hence, I think Azactam is working. We will continue Azactam daily as it needs to be given daily. We will follow. Karissa Adams MD cc: Dr. Adams.
[2017-09-13] MEDS: (Novolog) Insulin Aspart, Recombinant 100 u/ml 10 ml vial SC SCH ×4 (01:00→18:22)
[2017-09-13] MEDS: Albuterol-Ipratrop 3 mg / 0.5 (3 ml) UD INH SCH ×6 (03:09→23:41)
[2017-09-13 07:33] LABS: INR 2.8; PROTHROMBIN TIME 32.5 SECONDS (9.7-12.2)
[2017-09-13 07:38] LABS: BASO % 0.1 % (0.0-2.0); LYMPH # 0.3 K/uL (1.0-4.3); LYMPH % 1.3 % (20.0-40.0); MEAN CELL VOLUME 86.6 fL (81.0-99.0); MEAN CORPUSCULAR HEMOGLOBIN 27.2 pg (27.0-31.0); MEAN CORPUSCULAR HGB CONC 31.4 g/dL (33.0-37.0); MEAN PLATELET VOLUME 8.7 fL (7.2-11.7); MONO # 0.6 K/uL (0.0-0.8); MONO % 2.5 % (0.0-10.0); NEUT # 23.7 K/uL (1.8-7.0); NEUT % 96.1 % (50.0-75.0); NRBC % 0.4 % (0.0-2.0); PLATELET COUNT 230 K/uL (130-400); RBC 3.31 Mil/uL (3.80-5.20); RED CELL DISTRIBUTION WIDTH 17.6 % (11.5-14.5); WHITE BLOOD COUNT 24.7 K/uL (4.8-10.8)
[2017-09-13 07:42] LABS: ALBUMIN 2.9 g/dL (3.5-5.0); CALCIUM 8.3 mg/dl (8.6-10.4)
[2017-09-13] MEDS: Multivitamin Vitamin B Complex (Nephro-Vite) Tab PO SCH (08:13)
[2017-09-13 08:40] LABS: ANISOCYTOSIS SLIGHT; HYPOCHROMIC SLIGHT; LYMPHOCYTE 1 % (20-40); MONOCYTE 2 % (0-10); NEUTROPHIL 97 % (50-75); PLATELET ESTIMATE NORMAL (NORMAL); POLYCHROMIC SLIGHT; TOTAL CELLS COUNTED 100
--- NOTE | 2017-09-13 10:44 | CP.PCM.PN ---
<Gee Raines - Last Filed: 09/13/17 17:06> Subjective - Date & Time of Evaluation Date of Evaluation: 09/13/17 Time of Evaluation: 09:00 - Subjective Subjective: Medicine progress note for Dr. Boateng Patient seen and examined. Patient is in no acute distress, but she is unable to speak. Patient moves her lips but is unable to produce sound. ROS could not be obtained. Objective - Vital Signs/Intake and Output Vital Signs (last 24 hours): Temp Pulse Resp BP Pulse Ox 98.7 F 102 H 18 110/67 99 09/13/17 07:05 09/13/17 07:53 09/13/17 07:05 09/13/17 07:05 09/13/17 07:05 Intake and Output: 09/13/17 09/13/17 06:59 18:59 Intake Total 880 Balance 880 - Medications Medications: Current Medications Albumin Human (Albumin Human 25% (12.5 Gm/50 Ml)) 25 gm IV TTS PRN PRN Reason: Other Albuterol/Ipratropium (Duoneb 3 Mg/0.5 Mg (3 Ml) Ud) 3 ml INH RQ4 [facility] Last Admin: 09/13/17 07:21 Dose: 3 ml Aspirin (Aspirin Chewable) 81 mg PO DAILY [facility] Last Admin: 09/12/17 09:20 Dose: 81 mg Diltiazem HCl (Cardizem) 30 mg PO Q6H [facility] Last Admin: 09/13/17 06:35 Dose: 30 mg Epoetin Alan (Procrit) 12,000 unit IV TTS [facility] Ferrous Gluconate (Fergon) 324 mg PO TID [facility] Last Admin: 09/12/17 17:09 Dose: 324 mg Heparin Sodium (Porcine) (Heparin) 1,000 units IVP TTS [facility] Hydromorphone HCl (Dilaudid) 0.5 mg IVP Q6H PRN PRN Reason: Pain, moderate (4-7) Vancomycin/Sodium Chloride (Vancomycin 1 Gm/Ns 200 Ml) 1 gm in 200 mls @ 133.333 mls/hr IVPB TTS [facility] PRN Reason: Protocol Stop: 09/19/17 10:01 Aztreonam 1 gm/ Sodium (Chloride) 100 mls @ 100 mls/hr IVPB DAILY [facility] PRN Reason: Protocol Insulin Aspart (Novolog) 0 unit SC Q6 [facility] PRN Reason: Protocol Last Admin: 09/13/17 06:35 Dose: 6 unit Insulin Glargine (Lantus) 5 unit SC HS [facility] Last Admin: 09/12/17 21:24 Dose: 5 u Metoprolol Tartrate (Lopressor) 25 mg PO BID [facility] Last Admin: 09/12/17 17:06 Dose: 25 mg Midodrine (Proamatine) 10 mg PO TTS [facility] Midodrine (Proamatine) 10 mg PO TTS [facility] Pantoprazole Sodium (Protonix Inj) 40 mg IVP DAILY [facility] Last Admin: 09/12/17 09:20 Dose: 40 mg Paricalcitol (Zemplar) 2 mcg IV TTS [facility] Rosuvastatin Calcium (Crestor) 5 mg PO HS [facility] Last Admin: 09/12/17 21:24 Dose: 5 mg Sennosides (Senokot Tab) 8.6 mg NG DAILY [facility] Last Admin: 09/12/17 09:21 Dose: 8.6 mg Sevelamer Carbonate (Renvela) 800 mg PO TIDCC [facility] Last Admin: 09/13/17 08:13 Dose: 800 mg Vitamin B Complex/Vit C/Folic Acid (Nephro-Kamron) 1 tab PO 0800 [facility] Last Admin: 09/13/17 08:13 Dose: 1 tab - Labs Labs: 09/13/17 07:17 09/13/17 07:17 PT 32.5 SECONDS (9.7-12.2) H* 09/13/17 07:17 INR 2.8 09/13/17 07:17 APTT 29 SECONDS (21-34) 09/12/17 08:24 - Constitutional Appears: No Acute Distress, Chronically Ill - Eye Exam Eye Exam: EOMI, Normal appearance - ENT Exam ENT Exam: Mucous Membranes Moist Additional comments: NGT in place - Respiratory Exam Additional comments: Very coarse breath sounds bilaterally - Cardiovascular Exam Cardiovascular Exam: Irregular Rhythm, +S1, +S2 - GI/Abdominal Exam GI & Abdominal Exam: Soft, Hypoactive Bowel Sounds. absent: Distended, Guarding , Tenderness - Extremities Exam Additional comments: Evidence of chronic venous stasis Pedal pulses weak - Neurological Exam Neurological Exam: Awake - Skin Skin Exam: Dry, Warm Assessment and Plan - Assessment and Plan (Free Text) Plan: 1. Acute NSTEMI, Asystole ,CPR/Sustained VT Previously on Heparin GGT Cardiology consult, Dr. Houston. Help appreciated Family elected against cardiac catheterization despite the advice of multiple professionals Echo shows EF of 15-20% Cardizem 30 mg PO Q6 Lopressor 25 mg PO BID [facility] 81 mg PO daily Crestor 5 mg HS 2. Respiratory failure, s/p intubation and later extubation Previously intubated in the ICU and now extubated Saturating well on non-rebreather mask 3. Atrial Fibrillation CHADS-VAsc score 8 INR today 2.8 Holding Coumadin tonight Rate controlled with Lopressor and Cardizem 4. Acute renal failure on chronic renal disease/Now ESRD on HD Nephrology consult, Dr. Hebert, help appreciated Dialysis ,,S Renvela TID On 09/10: L IJ permacath placed and left shiley removed 5. Sepsis Previously on Vancomycin, flagyl, and aztreonam Now currently only on Aztreonam for pseudomonas in the sputum Elevated procalcitonin 6.1 6. Acute systolic heart failure Family refuses cardiac cath. has high risk for arrhythmia and poor prognosis Family aware of her condition ECHO shows EF 15 to 20% 7. Pleural effusion Persistent left loculated pleural effusion 8. Hyperglycemia and uncontrolled DM Aspart sliding scale Lantus 5 units HS 9. Anemia of chronic disease, CKD Procrit T,, Ferrous gluconate 324 mg TID 10. Prophylaxis Tube feeds through NGT Protonix 40 mg IV daily DVT prophylaxis with Coumadin, currently therapeutic INR Discussed with Dr. Tasneem Raines PGY-1 <Jose Boateng - Last Filed: 09/13/17 17:47> Objective - Vital Signs/Intake and Output Vital Signs (last 24 hours): Temp Pulse Resp BP Pulse Ox 98.2 F 92 H 18 108/54 L 100 09/13/17 15:00 09/13/17 15:00 09/13/17 15:00 09/13/17 15:00 09/13/17 15:00 Intake and Output: 09/13/17 09/13/17 06:59 18:59 Intake Total 880 Balance 880 - Medications Medications: Current Medications Albumin Human (Albumin Human 25% (12.5 Gm/50 Ml)) 25 gm IV TTS PRN PRN Reason: Other Albuterol/Ipratropium (Duoneb 3 Mg/0.5 Mg (3 Ml) Ud) 3 ml INH RQ4 [facility] Last Admin: 09/13/17 11:16 Dose: 3 ml Aspirin (Aspirin Chewable) 81 mg PO DAILY [facility] Last Admin: 09/13/17 11:12 Dose: 81 mg Dextrose (Dextrose 50% Inj) 0 ml IV STAT PRN; Protocol PRN Reason: Hypoglycemia Protocol Dextrose (Glutose 15) 0 gm PO ONCE PRN; Protocol PRN Reason: Hypoglycemia Protocol Diltiazem HCl (Cardizem) 30 mg PO Q6H [facility] Last Admin: 09/13/17 12:35 Dose: 30 mg Epoetin Alan (Procrit) 10,000 unit IV TTS [facility] Epoetin Alan (Procrit) 2,000 u IV TTS [facility] Ferrous Gluconate (Fergon) 324 mg PO TID [facility] Last Admin: 09/13/17 14:32 Dose: 324 mg Glucagon (Glucagen Diagnostic Kit) 0 mg IM STAT PRN; Protocol PRN Reason: Hypoglycemia Protocol Heparin Sodium (Porcine) (Heparin) 1,000 units IVP TTS [facility] Hydromorphone HCl (Dilaudid) 0.5 mg IVP Q6H PRN PRN Reason: Pain, moderate (4-7) Aztreonam 1 gm/ Sodium (Chloride) 100 mls @ 100 mls/hr IVPB DAILY [facility] PRN Reason: Protocol Last Admin: 09/13/17 11:14 Dose: 100 mls/hr Dextrose (Dextrose 5% In Water 1000 Ml) 1,000 mls @ 0 mls/hr IV .Q0M PRN; Protocol; Per Protocol PRN Reason: Hypoglycemia Protocol Insulin Aspart (Novolog) 0 unit SC Q6 [facility] PRN Reason: Protocol Last Admin: 09/13/17 12:35 Dose: 6 unit Insulin Glargine (Lantus) 5 unit SC HS [facility] Last Admin: 09/12/17 21:24 Dose: 5 u Metoprolol Tartrate (Lopressor) 25 mg PO BID [facility] Last Admin: 09/13/17 11:13 Dose: 25 mg Midodrine (Proamatine) 10 mg PO TTS [facility] Midodrine (Proamatine) 10 mg PO TTS [facility] Pantoprazole Sodium (Protonix Inj) 40 mg IVP DAILY [facility] Last Admin: 09/13/17 11:12 Dose: 40 mg Paricalcitol (Zemplar) 2 mcg IV TTS [facility] Rosuvastatin Calcium (Crestor) 5 mg PO HS [facility] Last Admin: 09/12/17 21:24 Dose: 5 mg Sennosides (Senokot Tab) 8.6 mg NG DAILY [facility] Last Admin: 09/13/17 11:12 Dose: 8.6 mg Sevelamer Carbonate (Renvela) 800 mg PO TIDCC [facility] Last Admin: 09/13/17 12:35 Dose: 800 mg Vitamin B Complex/Vit C/Folic Acid (Nephro-Kamron) 1 tab PO 0800 [facility] Last Admin: 09/13/17 08:13 Dose: 1 tab - Labs Labs: 09/13/17 07:17 09/13/17 07:17 PT 32.5 SECONDS (9.7-12.2) H* 09/13/17 07:17 INR 2.8 09/13/17 07:17 APTT 29 SECONDS (21-34) 09/12/17 08:24 Attending/Attestation - Attestation I have personally seen and examined this patient.: Yes I have fully participated in the care of the patient.: Yes I have reviewed all pertinent clinical information, including history, physical exam and plan: Yes Notes (Text): Patient was seen and examined this morning . Sitting on bed with face mask/ non rebreather on. Denies sob. Alert and responsive. Not able to talk/trying to talk without voice. failed swallowing study.on NG feeding. Repeat swallowing study on Saturday.Getting dialysis TIW.We will get PT on Saturday if she is stable to do. Patient refused cardiac cath/cardiac intervention. Has EF 15 to 20%. High risk for life threatening arrhythmia. Spoke to her daughter Annmarie and granddaughter yesterday. Patient is full code. She is on Coumadin for afib. INR today is 2.8. I will hold her Coumadin tonight. check INR tomorrow and resume Coumadin if INR not going up continue Azactam. Has Resp c/s pseudomonas. Cath tip without growth. off vanco. Discussed with Dr schultz I agree with the resident's documentation of the assessment and the plan
[2017-09-13] MEDS: Aztreonam 1 GM in Sodium Chloride 0.9% 100 ML IVPB SCH (11:14)
--- NOTE | 2017-09-13 16:11 | CP.PCM.PN ---
Subjective - Date & Time of Evaluation Date of Evaluation: 09/13/17 Time of Evaluation: 16:11 - Subjective Subjective: Nephrology Consultation: Assessment: stable CKD stage 5 (N18.5) with hyperkalemia, acidosis now has ESRD on HD via permacath TTS pulm edema, CHF, NSTEMI, pleural effusions, pneumonia AMS, hyperglycemia s/p cardiac arrest, shock liver, A fib Diabetic chronic Kidney Disease (E11.22) Hypertensive Chronic Kidney Disease (I12.9) Anemia (D64.9), Hyperphosphatemia (E83.39), Secondary Hyperparathyroidism (E21.1 ), HTN (I12.9), vit D insuff, hx of colon CA, TIAs Plan HD Tomorrow as ordered as per TTS schedule. maintain hemodynamic stable. Patient not on ACEI/ARB due to low BP. on midodrine prior to HD started iron supplements, MVI, epogen with HD, and zemplar 2 mcg with HD. started on phos binders as renvela Dose meds/antibiotics for ESRD/HD status. Avoid fleets enema/magnesium based laxatives. Avoid nephrotoxins/NSAIDs Glycemic control Further work up/management as per primary team chemical research worker consult for outpatient dialysis placement. Thanks for allowing me to participate in care of your patient. Will follow patient with you. Please call if any Qs. Dr Edson Norton Office: [phone] Chief Complaint; unable to obtain reason for consult: CKD management source of Info: EMR HPI: Pt is a 76 F with hx of diabetes Mellitus ( years), hypertension (years), CHF, TIA, Colon CA, CKD stage 4/5, has matured AVG in left arm presented with complaints of AMS and hyperglycemia as brought by family. now has elevated trop 100, hyperkalemia, AMS and elevated sugar, pulm edema. renal consult for CKD management. pt with AMS unable to provide any hx. she had received medical management for hyperkalemia. ROS: unable to obtain Physical Examination: General Appearance: ill appearing, on O2 Vitals reviewed and noted as below Head; Atraumatic, normocephalic ENT: On O2 EYES: PERRLA Neck; supple no lymphadenopathy, no thyromegaly or bruit Lungs: Normal respiratory rate/effort. Breath sounds bilateral clear, she is mechanically ventilated Heart: Increased rate. s1s2 normal. No rub or gallop. Extremities: no edema. No varicose veins. chronic hyperpigmented changes in legs Neurological: Patient is Not communicative verbally Skin: Warm and dry. Normal turgor. No rash. Palpitation: Normal elasticity for age Abdomen: Abdomen is soft. Bowel sounds +. There is no abdominal tenderness, no guarding/rigidity no organomegaly Psych: unable MSK: no joint tenderness or swelling. Digits and nails normal, no deformity : kidney or bladder not palpable Access: Left AVG without bruit. has left permacath Labs/imaging reviewed. Past medical history, past surgical history, family history, social history, allergy reviewed and noted as below Family hx: no hx of CKD. Rest non-contributory Objective - Vital Signs/Intake and Output Vital Signs (last 24 hours): Temp Pulse Resp BP Pulse Ox 98.2 F 92 H 18 108/54 L 100 09/13/17 15:00 09/13/17 15:00 09/13/17 15:00 09/13/17 15:00 09/13/17 15:00 Intake and Output: 09/13/17 09/13/17 06:59 18:59 Intake Total 880 Balance 880 - Medications Medications: Current Medications Albumin Human (Albumin Human 25% (12.5 Gm/50 Ml)) 25 gm IV TTS PRN PRN Reason: Other Albuterol/Ipratropium (Duoneb 3 Mg/0.5 Mg (3 Ml) Ud) 3 ml INH RQ4 [facility] Last Admin: 09/13/17 11:16 Dose: 3 ml Aspirin (Aspirin Chewable) 81 mg PO DAILY [facility] Last Admin: 09/13/17 11:12 Dose: 81 mg Diltiazem HCl (Cardizem) 30 mg PO Q6H [facility] Last Admin: 09/13/17 12:35 Dose: 30 mg Epoetin Alan (Procrit) 10,000 unit IV TTS [facility] Epoetin Alan (Procrit) 2,000 u IV TTS [facility] Ferrous Gluconate (Fergon) 324 mg PO TID [facility] Last Admin: 09/13/17 14:32 Dose: 324 mg Heparin Sodium (Porcine) (Heparin) 1,000 units IVP TTS [facility] Hydromorphone HCl (Dilaudid) 0.5 mg IVP Q6H PRN PRN Reason: Pain, moderate (4-7) Aztreonam 1 gm/ Sodium (Chloride) 100 mls @ 100 mls/hr IVPB DAILY [facility] PRN Reason: Protocol Last Admin: 09/13/17 11:14 Dose: 100 mls/hr Insulin Aspart (Novolog) 0 unit SC Q6 [facility] PRN Reason: Protocol Last Admin: 09/13/17 12:35 Dose: 6 unit Insulin Glargine (Lantus) 5 unit SC HS [facility] Last Admin: 09/12/17 21:24 Dose: 5 u Metoprolol Tartrate (Lopressor) 25 mg PO BID [facility] Last Admin: 09/13/17 11:13 Dose: 25 mg Midodrine (Proamatine) 10 mg PO TTS [facility] Midodrine (Proamatine) 10 mg PO TTS [facility] Pantoprazole Sodium (Protonix Inj) 40 mg IVP DAILY [facility] Last Admin: 09/13/17 11:12 Dose: 40 mg Paricalcitol (Zemplar) 2 mcg IV TTS [facility] Rosuvastatin Calcium (Crestor) 5 mg PO HS [facility] Last Admin: 09/12/17 21:24 Dose: 5 mg Sennosides (Senokot Tab) 8.6 mg NG DAILY [facility] Last Admin: 09/13/17 11:12 Dose: 8.6 mg Sevelamer Carbonate (Renvela) 800 mg PO TIDCC [facility] Last Admin: 09/13/17 12:35 Dose: 800 mg Vitamin B Complex/Vit C/Folic Acid (Nephro-Kamron) 1 tab PO 0800 [facility] Last Admin: 09/13/17 08:13 Dose: 1 tab - Labs Labs: 09/13/17 07:17 09/13/17 07:17 PT 32.5 SECONDS (9.7-12.2) H* 09/13/17 07:17 INR 2.8 09/13/17 07:17 APTT 29 SECONDS (21-34) 09/12/17 08:24
[2017-09-13] MEDS ORDERED: (Novolin R) Insulin Human Regular 100 units/ml vial SC ONE (17:25)
[2017-09-13] MEDS ORDERED: Glucagon Recombinant 1 mg Inj IM PRN (17:26)
[2017-09-13] MEDS ORDERED: Dextrose 50% SYRINGE Inj (50 ml) IV PRN (17:26)
[2017-09-13] MEDS: (Lantus) Insulin Glargine, Recombinant SC SCH (22:00)
[2017-09-14] MEDS: (Novolog) Insulin Aspart, Recombinant 100 u/ml 10 ml vial SC SCH ×4 (00:25→17:20)
[2017-09-14] MEDS: Albuterol-Ipratrop 3 mg / 0.5 (3 ml) UD INH SCH ×3 (03:13→11:30)
[2017-09-14] MEDS ORDERED: Albumin Human 25% (12.5 gm/50 ml) IV PRN (06:00)
[2017-09-14 07:49] LABS: BASO % 0.2 % (0.0-2.0); EOS % 0.2 % (0.0-4.0); HEMOGLOBIN 8.7 g/dL (11.0-16.0); LYMPH # 0.4 K/uL (1.0-4.3); MEAN CELL VOLUME 87.5 fL (81.0-99.0); MEAN CORPUSCULAR HEMOGLOBIN 27.6 pg (27.0-31.0); MEAN CORPUSCULAR HGB CONC 31.6 g/dL (33.0-37.0); MEAN PLATELET VOLUME 9.1 fL (7.2-11.7); MONO # 0.6 K/uL (0.0-0.8); NEUT # 20.7 K/uL (1.8-7.0); NEUT % 94.6 % (50.0-75.0); NRBC % 0.3 % (0.0-2.0); PLATELET COUNT 207 K/uL (130-400); RBC 3.15 Mil/uL (3.80-5.20); RED CELL DISTRIBUTION WIDTH 17.2 % (11.5-14.5); WHITE BLOOD COUNT 21.9 K/uL (4.8-10.8)
[2017-09-14 07:50] LABS: INR 2.9
[2017-09-14 08:19] LABS: ALB/GLOB RATIO 0.9 (1.0-2.1); ALBUMIN 2.8 g/dL (3.5-5.0); CALCIUM 8.3 mg/dl (8.6-10.4)
[2017-09-14] MEDS: Multivitamin Vitamin B Complex (Nephro-Vite) Tab PO SCH (08:30)
[2017-09-14 09:51] LABS: BANDS 1 % (0-2); LYMPHOCYTE 3 % (20-40); MONOCYTE 4 % (0-10); NEUTROPHIL 92 % (50-75); PLATELET ESTIMATE NORMAL (NORMAL); TOTAL CELLS COUNTED 100
[2017-09-14 09:52] LABS: ANISOCYTOSIS SLIGHT; HYPOCHROMIC SLIGHT; MICROCYTOSIS SLIGHT; OVALOCYTES SLIGHT; POIKILOCYTOSIS SLIGHT; POLYCHROMIC SLIGHT; SCHISTOCYTES SLIGHT; TEARDROP CELLS SLIGHT
[2017-09-14] MEDS ORDERED: Aztreonam 1 GM in Sodium Chloride 0.9% 100 ML IVPB SCH (10:00)
[2017-09-14] MEDS ORDERED: Vancomycin 1 gm/NS 200 ml 1 GM/200 ML BAG IVPB SCH (10:00)
--- NOTE | 2017-09-14 10:20 | CP.PCM.PN ---
Subjective - Date & Time of Evaluation Date of Evaluation: 09/14/17 Time of Evaluation: 10:20 - Subjective Subjective: renal note: Assessment: stable CKD stage 5 (N18.5) with hyperkalemia, acidosis now has ESRD on HD via permacath TTS pulm edema, CHF, NSTEMI, pleural effusions, pneumonia AMS, hyperglycemia s/p cardiac arrest, shock liver, A fib Diabetic chronic Kidney Disease (E11.22) Hypertensive Chronic Kidney Disease (I12.9) Anemia (D64.9), Hyperphosphatemia (E83.39), Secondary Hyperparathyroidism (E21.1 ), HTN (I12.9), vit D insuff, hx of colon CA, TIAs Plan HD TTS schedule. maintain hemodynamic stable. on midodrine prior to HD started MVI, epogen with HD, and zemplar 2 mcg with HD. started on phos binders as renvela Dose meds/antibiotics for ESRD/HD status. [employer] worker consult for outpatient dialysis placement. Physical Examination: General Appearance: ill appearing, on O2 Vitals reviewed Head; Atraumatic, normocephalic ENT: On O2 Neck; supple Lungs: Normal respiratory rate/effort. Breath sounds bilateral clear, she is mechanically ventilated Heart: Increased rate. s1s2 normal. No rub or gallop. Extremities: no edema. Neurological: Patient is Not communicative verbally Skin: Warm and dry. Normal turgor. No rash. Abdomen: Abdomen is soft. Bowel sounds +. There is no abdominal tenderness Psych: unable MSK: no joint tenderness or swelling. Digits and nails normal, no deformity : kidney or bladder not palpable Access: Left AVG without bruit. has left permacath Objective - Vital Signs/Intake and Output Vital Signs (last 24 hours): Temp Pulse Resp BP Pulse Ox 97.9 F 100 H 18 117/66 100 09/14/17 07:00 09/14/17 07:00 09/14/17 07:00 09/14/17 07:00 09/14/17 07:00 Intake and Output: 09/14/17 09/14/17 06:59 18:59 Intake Total 890 Balance 890 - Medications Medications: Current Medications Albumin Human (Albumin Human 25% (12.5 Gm/50 Ml)) 25 gm IV TTS PRN PRN Reason: Other Albuterol/Ipratropium (Duoneb 3 Mg/0.5 Mg (3 Ml) Ud) 3 ml INH RQ4 [facility] Last Admin: 09/14/17 07:10 Dose: 3 ml Aspirin (Aspirin Chewable) 81 mg PO DAILY [facility] Last Admin: 09/13/17 11:12 Dose: 81 mg Dextrose (Dextrose 50% Inj) 0 ml IV STAT PRN; Protocol PRN Reason: Hypoglycemia Protocol Dextrose (Glutose 15) 0 gm PO ONCE PRN; Protocol PRN Reason: Hypoglycemia Protocol Diltiazem HCl (Cardizem) 30 mg PO Q6H [facility] Last Admin: 09/14/17 06:11 Dose: 30 mg Epoetin Alan (Procrit) 10,000 unit IV TTS [facility] Epoetin Alan (Procrit) 2,000 u IV TTS [facility] Ferrous Gluconate (Fergon) 324 mg PO TID [facility] Last Admin: 09/13/17 18:24 Dose: 324 mg Glucagon (Glucagen Diagnostic Kit) 0 mg IM STAT PRN; Protocol PRN Reason: Hypoglycemia Protocol Heparin Sodium (Porcine) (Heparin) 1,000 units IVP TTS [facility] Hydromorphone HCl (Dilaudid) 0.5 mg IVP Q6H PRN PRN Reason: Pain, moderate (4-7) Aztreonam 1 gm/ Sodium (Chloride) 100 mls @ 100 mls/hr IVPB DAILY [facility] PRN Reason: Protocol Last Admin: 09/13/17 11:14 Dose: 100 mls/hr Dextrose (Dextrose 5% In Water 1000 Ml) 1,000 mls @ 0 mls/hr IV .Q0M PRN; Protocol; Per Protocol PRN Reason: Hypoglycemia Protocol Insulin Aspart (Novolog) 0 unit SC Q6 [facility] PRN Reason: Protocol Last Admin: 09/14/17 06:09 Dose: 6 unit Insulin Glargine (Lantus) [address] [facility] Metoprolol Tartrate (Lopressor) 25 mg PO BID [facility] Last Admin: 09/13/17 18:23 Dose: 25 mg Midodrine (Proamatine) 10 mg PO TTS [facility] Midodrine (Proamatine) 10 mg PO TTS [facility] Pantoprazole Sodium (Protonix Inj) 40 mg IVP DAILY [facility] Last Admin: 09/13/17 11:12 Dose: 40 mg Paricalcitol (Zemplar) 2 mcg IV TTS [facility] Rosuvastatin Calcium (Crestor) 5 mg PO HS [facility] Last Admin: 09/13/17 22:01 Dose: 5 mg Sennosides (Senokot Tab) 8.6 mg NG DAILY [facility] Last Admin: 09/13/17 11:12 Dose: 8.6 mg Sevelamer Carbonate (Renvela) 800 mg PO TIDCC [facility] Last Admin: 09/14/17 08:43 Dose: 800 mg Vitamin B Complex/Vit C/Folic Acid (Nephro-Kamron) 1 tab PO 0800 [facility] Last Admin: 09/14/17 08:30 Dose: Not Given - Labs Labs: 09/14/17 07:35 09/14/17 07:35 PT 34.0 SECONDS (9.7-12.2) H* 09/14/17 07:35 INR 2.9 09/14/17 07:35 APTT 29 SECONDS (21-34) 09/12/17 08:24
[2017-09-14] MEDS: Aztreonam 1 GM in Sodium Chloride 0.9% 100 ML IVPB SCH (10:22)
--- NOTE | 2017-09-14 11:14 | CP.PCM.PN ---
Subjective - Date & Time of Evaluation Date of Evaluation: 09/14/17 Time of Evaluation: 11:13 - Subjective Subjective: plan shunt thrombectomy /declotting saturday Objective - Vital Signs/Intake and Output Vital Signs (last 24 hours): Temp Pulse Resp BP Pulse Ox 97.9 F 100 H 18 117/66 100 09/14/17 07:00 09/14/17 08:00 09/14/17 07:00 09/14/17 07:00 09/14/17 07:00 Intake and Output: 09/14/17 09/14/17 06:59 18:59 Intake Total 890 Balance 890 - Medications Medications: Current Medications Albumin Human (Albumin Human 25% (12.5 Gm/50 Ml)) 25 gm IV TTS PRN PRN Reason: Other Albuterol/Ipratropium (Duoneb 3 Mg/0.5 Mg (3 Ml) Ud) 3 ml INH RQ4 [facility] Last Admin: 09/14/17 07:10 Dose: 3 ml Aspirin (Aspirin Chewable) 81 mg PO DAILY [facility] Last Admin: 09/14/17 10:18 Dose: 81 mg Dextrose (Dextrose 50% Inj) 0 ml IV STAT PRN; Protocol PRN Reason: Hypoglycemia Protocol Dextrose (Glutose 15) 0 gm PO ONCE PRN; Protocol PRN Reason: Hypoglycemia Protocol Diltiazem HCl (Cardizem) 30 mg PO Q6H [facility] Last Admin: 09/14/17 06:11 Dose: 30 mg Epoetin Alan (Procrit) 10,000 unit IV TTS [facility] Epoetin Alan (Procrit) 2,000 u IV TTS [facility] Ferrous Gluconate (Fergon) 324 mg PO TID [facility] Last Admin: 09/14/17 10:19 Dose: 324 mg Glucagon (Glucagen Diagnostic Kit) 0 mg IM STAT PRN; Protocol PRN Reason: Hypoglycemia Protocol Heparin Sodium (Porcine) (Heparin) 1,000 units IVP TTS [facility] Hydromorphone HCl (Dilaudid) 0.5 mg IVP Q6H PRN PRN Reason: Pain, moderate (4-7) Aztreonam 1 gm/ Sodium (Chloride) 100 mls @ 100 mls/hr IVPB DAILY [facility] PRN Reason: Protocol Last Admin: 09/14/17 10:22 Dose: 100 mls/hr Dextrose (Dextrose 5% In Water 1000 Ml) 1,000 mls @ 0 mls/hr IV .Q0M PRN; Protocol; Per Protocol PRN Reason: Hypoglycemia Protocol Insulin Aspart (Novolog) 0 unit SC Q6 [facility] PRN Reason: Protocol Last Admin: 09/14/17 06:09 Dose: 6 unit Insulin Glargine (Lantus) 10 unit SC HS [facility] Metoprolol Tartrate (Lopressor) 25 mg PO BID [facility] Last Admin: 09/14/17 10:20 Dose: Not Given Midodrine (Proamatine) 10 mg PO TTS [facility] Midodrine (Proamatine) 10 mg PO TTS [facility] Pantoprazole Sodium (Protonix Inj) 40 mg IVP DAILY [facility] Last Admin: 09/14/17 10:21 Dose: 40 mg Paricalcitol (Zemplar) 2 mcg IV TTS [facility] Rosuvastatin Calcium (Crestor) 5 mg PO HS [facility] Last Admin: 09/13/17 22:01 Dose: 5 mg Sennosides (Senokot Tab) 8.6 mg NG DAILY [facility] Last Admin: 09/14/17 10:18 Dose: 8.6 mg Sevelamer Carbonate (Renvela) 800 mg PO TIDCC [facility] Last Admin: 09/14/17 08:43 Dose: 800 mg Vitamin B Complex/Vit C/Folic Acid (Nephro-Kamron) 1 tab PO 0800 [facility] Last Admin: 09/14/17 08:30 Dose: Not Given - Labs Labs: 09/14/17 07:35 09/14/17 07:35 PT 34.0 SECONDS (9.7-12.2) H* 09/14/17 07:35 INR 2.9 09/14/17 07:35 APTT 29 SECONDS (21-34) 09/12/17 08:24
--- NOTE | 2017-09-14 11:17 | CP.PCM.PN ---
Subjective - Date & Time of Evaluation Date of Evaluation: 09/14/17 Time of Evaluation: 11:16 - Subjective Subjective: aware of elevated INR should help in management Objective - Vital Signs/Intake and Output Vital Signs (last 24 hours): Temp Pulse Resp BP Pulse Ox 97.9 F 100 H 18 117/66 100 09/14/17 07:00 09/14/17 08:00 09/14/17 07:00 09/14/17 07:00 09/14/17 07:00 Intake and Output: 09/14/17 09/14/17 06:59 18:59 Intake Total 890 Balance 890 - Medications Medications: Current Medications Albumin Human (Albumin Human 25% (12.5 Gm/50 Ml)) 25 gm IV TTS PRN PRN Reason: Other Albuterol/Ipratropium (Duoneb 3 Mg/0.5 Mg (3 Ml) Ud) 3 ml [facility]H RQ4 [facility] Last Admin: 09/14/17 07:10 Dose: 3 ml Aspirin (Aspirin Chewable) 81 mg PO DAILY [facility] Last Admin: 09/14/17 10:18 Dose: 81 mg Dextrose (Dextrose 50% Inj) 0 ml IV STAT PRN; Protocol PRN Reason: Hypoglycemia Protocol Dextrose (Glutose 15) 0 gm PO ONCE PRN; Protocol PRN Reason: Hypoglycemia Protocol Diltiazem HCl (Cardizem) 30 mg PO Q6H [facility] Last Admin: 09/14/17 06:11 Dose: 30 mg Epoetin Alan (Procrit) 10,000 unit IV TTS [facility] Epoetin Alan (Procrit) 2,000 u IV TTS [facility] Ferrous Gluconate (Fergon) 324 mg PO TID [facility] Last Admin: 09/14/17 10:19 Dose: 324 mg Glucagon (Glucagen Diagnostic Kit) 0 mg IM STAT PRN; Protocol PRN Reason: Hypoglycemia Protocol Heparin Sodium (Porcine) (Heparin) 1,000 units IVP TTS [facility] Hydromorphone HCl (Dilaudid) 0.5 mg IVP Q6H PRN PRN Reason: Pain, moderate (4-7) Aztreonam 1 gm/ Sodium (Chloride) 100 mls @ 100 mls/hr IVPB DAILY [facility] PRN Reason: Protocol Last Admin: 09/14/17 10:22 Dose: 100 mls/hr Dextrose (Dextrose 5% In Water 1000 Ml) 1,000 mls @ 0 mls/hr IV .Q0M PRN; Protocol; Per Protocol PRN Reason: Hypoglycemia Protocol Insulin Aspart (Novolog) 0 unit SC Q6 [facility] PRN Reason: Protocol Last Admin: 09/14/17 06:09 Dose: 6 unit Insulin Glargine (Lantus) 10 unit SC HS [facility] Metoprolol Tartrate (Lopressor) 25 mg PO BID [facility] Last Admin: 09/14/17 10:20 Dose: Not Given Midodrine (Proamatine) 10 mg PO TTS [facility] Midodrine (Proamatine) 10 mg PO TTS [facility] Pantoprazole Sodium (Protonix Inj) 40 mg IVP DAILY [facility] Last Admin: 09/14/17 10:21 Dose: 40 mg Paricalcitol (Zemplar) 2 mcg IV TTS [facility] Rosuvastatin Calcium (Crestor) 5 mg PO HS [facility] Last Admin: 09/13/17 22:01 Dose: 5 mg Sennosides (Senokot Tab) 8.6 mg NG DAILY [facility] Last Admin: 09/14/17 10:18 Dose: 8.6 mg Sevelamer Carbonate (Renvela) 800 mg PO TIDCC [facility] Last Admin: 09/14/17 08:43 Dose: 800 mg Vitamin B Complex/Vit C/Folic Acid (Nephro-Kamron) 1 tab PO 0800 [facility] Last Admin: 09/14/17 08:30 Dose: Not Given - Labs Labs: 09/14/17 07:35 09/14/17 07:35 PT 34.0 SECONDS (9.7-12.2) H* 09/14/17 07:35 INR 2.9 09/14/17 07:35 APTT 29 SECONDS (21-34) 09/12/17 08:24
--- NOTE | 2017-09-14 13:46 | CP.PCM.PN ---
Objective - Vital Signs/Intake and Output Vital Signs (last 24 hours): Temp Pulse Resp BP Pulse Ox 97.9 F 100 H 18 117/66 100 09/14/17 07:00 09/14/17 08:00 09/14/17 07:00 09/14/17 07:00 09/14/17 07:00 Intake and Output: 09/14/17 09/14/17 06:59 18:59 Intake Total 890 Balance 890 - Medications Medications: Current Medications Albumin Human (Albumin Human 25% (12.5 Gm/50 Ml)) 25 gm IV TTS PRN PRN Reason: Other Aspirin (Aspirin Chewable) 81 mg PO DAILY [facility] Last Admin: 09/14/17 10:18 Dose: 81 mg Dextrose (Dextrose 50% Inj) 0 ml IV STAT PRN; Protocol PRN Reason: Hypoglycemia Protocol Dextrose (Glutose 15) 0 gm PO ONCE PRN; Protocol PRN Reason: Hypoglycemia Protocol Diltiazem HCl (Cardizem) 30 mg PO Q6H [facility] Last Admin: 09/14/17 06:11 Dose: 30 mg Epoetin Alan (Procrit) 10,000 unit IV TTS [facility] Epoetin Alan (Procrit) 2,000 u IV TTS [facility] Ferrous Gluconate (Fergon) 324 mg PO TID [facility] Last Admin: 09/14/17 10:19 Dose: 324 mg Glucagon (Glucagen Diagnostic Kit) 0 mg IM STAT PRN; Protocol PRN Reason: Hypoglycemia Protocol Heparin Sodium (Porcine) (Heparin) 1,000 units IVP TTS [facility] Hydromorphone HCl (Dilaudid) 0.5 mg IVP Q6H PRN PRN Reason: Pain, moderate (4-7) Aztreonam 1 gm/ Sodium (Chloride) 100 mls @ 100 mls/hr IVPB DAILY [facility] PRN Reason: Protocol Last Admin: 09/14/17 10:22 Dose: 100 mls/hr Dextrose (Dextrose 5% In Water 1000 Ml) 1,000 mls @ 0 mls/hr IV .Q0M PRN; Protocol; Per Protocol PRN Reason: Hypoglycemia Protocol Insulin Aspart (Novolog) 0 unit SC Q6 [facility] PRN Reason: Protocol Last Admin: 09/14/17 12:41 Dose: Not Given Insulin Glargine (Lantus) 10 unit SC HS [facility] Metoprolol Tartrate (Lopressor) 25 mg PO BID [facility] Last Admin: 09/14/17 10:20 Dose: Not Given Midodrine (Proamatine) 10 mg PO TTS [facility] Midodrine (Proamatine) 10 mg PO TTS [facility] Pantoprazole Sodium (Protonix Inj) 40 mg IVP DAILY [facility] Last Admin: 09/14/17 10:21 Dose: 40 mg Paricalcitol (Zemplar) 2 mcg IV TTS [facility] Rosuvastatin Calcium (Crestor) 5 mg PO HS [facility] Last Admin: 09/13/17 22:01 Dose: 5 mg Sennosides (Senokot Tab) 8.6 mg NG DAILY [facility] Last Admin: 09/14/17 10:18 Dose: 8.6 mg Sevelamer Carbonate (Renvela) 800 mg PO TIDCC [facility] Last Admin: 09/14/17 08:43 Dose: 800 mg Vitamin B Complex/Vit C/Folic Acid (Nephro-Kamron) 1 tab PO 0800 [facility] Last Admin: 09/14/17 08:30 Dose: Not Given - Labs Labs: 09/14/17 07:35 09/14/17 07:35 PT 34.0 SECONDS (9.7-12.2) H* 09/14/17 07:35 INR 2.9 09/14/17 07:35 APTT 29 SECONDS (21-34) 09/12/17 08:24 Assessment and Plan - Assessment and Plan (Free Text) Plan: 1.Acute NSTEMI, Asystole ,CPR/Sustained [place] Cardiology consult, Dr. Houston. Help appreciated Patient and Family not want her to go for cardiac cath Echo shows EF of 15-20%-High risk for arrhythmia and poor prognosis Cardizem 30 mg PO Q6 Lopressor 25 mg PO BID [facility] 81 mg PO daily Crestor 5 mg HS continue medical management 2. Respiratory failure, s/p intubation and later extubation Previously intubated in the ICU and now extubated Saturating well on non-re breather mask Comfortable. wean oxygen as tolerated 3. Atrial Fibrillation CHADS-VAsc score 8 INR today 2.9 Holding Coumadin tonight ,follow INR Rate controlled with Lopressor and Cardizem 4. ESRD . s/p Acute renal failure on chronic renal disease Nephrology consult, Dr. Hebert, help appreciated Dialysis T,Th,S Renvela TID On 09/10: L IJ permacath placed and left shiley removed getting Midodrine during dialysis for hypotension 5. Sepsis Previously on Vancomycin, flagyl, and aztreonam Now currently only on Aztreonam for pseudomonas in the sputum 7. Pleural effusion Persistent left loculated pleural effusion 8. Hyperglycemia and uncontrolled DM Aspart sliding scale Lantus 5 units HS 9. Anemia of chronic disease, CKD Procrit T,,S Ferrous gluconate 324 mg TID 10. Prophylaxis and supportive care Tube feeds through NGT Protonix 40 mg IV daily DVT prophylaxis with Coumadin, currently therapeutic INR
--- NOTE | 2017-09-14 13:48 | CP.PCM.PN ---
<Tuyet Alonso - Last Filed: 09/14/17 14:07> Subjective - Date & Time of Evaluation Date of Evaluation: 09/14/17 Time of Evaluation: 07:00 - Subjective Subjective: Medicine progress note for Dr. Boateng Patient seen and examined. No acute events reported overnight. Patient is currently awake an responsive. Unable to obtain detailed ROS due to patient's condition Objective - Vital Signs/Intake and Output Vital Signs (last 24 hours): Temp Pulse Resp BP Pulse Ox 97.9 F 100 H 18 117/66 100 09/14/17 07:00 09/14/17 08:00 09/14/17 07:00 09/14/17 07:00 09/14/17 07:00 Intake and Output: 09/14/17 09/14/17 06:59 18:59 Intake Total 890 Balance 890 - Medications Medications: Current Medications Albumin Human (Albumin Human 25% (12.5 Gm/50 Ml)) 25 gm IV TTS PRN PRN Reason: Other Aspirin (Aspirin Chewable) 81 mg PO DAILY [facility] Last Admin: 09/14/17 10:18 Dose: 81 mg Dextrose (Dextrose 50% Inj) 0 ml IV STAT PRN; Protocol PRN Reason: Hypoglycemia Protocol Dextrose (Glutose 15) 0 gm PO ONCE PRN; Protocol PRN Reason: Hypoglycemia Protocol Diltiazem HCl (Cardizem) 30 mg PO Q6H [facility] Last Admin: 09/14/17 06:11 Dose: 30 mg Epoetin Alan (Procrit) 10,000 unit IV TTS [facility] Epoetin Alan (Procrit) 2,000 u IV TTS [facility] Ferrous Gluconate (Fergon) 324 mg PO TID [facility] Last Admin: 09/14/17 10:19 Dose: 324 mg Glucagon (Glucagen Diagnostic Kit) 0 mg IM STAT PRN; Protocol PRN Reason: Hypoglycemia Protocol Heparin Sodium (Porcine) (Heparin) 1,000 units IVP TTS [facility] Hydromorphone HCl (Dilaudid) 0.5 mg IVP Q6H PRN PRN Reason: Pain, moderate (4-7) Aztreonam 1 gm/ Sodium (Chloride) 100 mls @ 100 mls/hr IVPB DAILY [facility] PRN Reason: Protocol Last Admin: 09/14/17 10:22 Dose: 100 mls/hr Dextrose (Dextrose 5% In Water 1000 Ml) 1,000 mls @ 0 mls/hr IV .Q0M PRN; Protocol; Per Protocol PRN Reason: Hypoglycemia Protocol Insulin Aspart (Novolog) 0 unit SC Q6 [facility] PRN Reason: Protocol Last Admin: 09/14/17 12:41 Dose: Not Given Insulin Glargine (Lantus) 10 unit SC HS [facility] Metoprolol Tartrate (Lopressor) 25 mg PO BID [facility] Last Admin: 09/14/17 10:20 Dose: Not Given Midodrine (Proamatine) 10 mg PO TTS [facility] Midodrine (Proamatine) 10 mg PO TTS [facility] Pantoprazole Sodium (Protonix Inj) 40 mg IVP DAILY [facility] Last Admin: 09/14/17 10:21 Dose: 40 mg Paricalcitol (Zemplar) 2 mcg IV TTS [facility] Rosuvastatin Calcium (Crestor) 5 mg PO HS [facility] Last Admin: 09/13/17 22:01 Dose: 5 mg Sennosides (Senokot Tab) 8.6 mg NG DAILY [facility] Last Admin: 09/14/17 10:18 Dose: 8.6 mg Sevelamer Carbonate (Renvela) 800 mg PO TIDCC [facility] Last Admin: 09/14/17 08:43 Dose: 800 mg Vitamin B Complex/Vit C/Folic Acid (Nephro-Kamron) 1 tab PO 0800 [facility] Last Admin: 09/14/17 08:30 Dose: Not Given - Labs Labs: 09/14/17 07:35 09/14/17 07:35 PT 34.0 SECONDS (9.7-12.2) H* 09/14/17 07:35 INR 2.9 09/14/17 07:35 APTT 29 SECONDS (21-34) 09/12/17 08:24 - Constitutional Appears: No Acute Distress, Chronically Ill - Eye Exam Eye Exam: EOMI, Normal appearance - ENT Exam ENT Exam: Mucous Membranes Moist Additional comments: NG Tube in place - Respiratory Exam Respiratory Exam: Decreased Breath Sounds, NORMAL BREATHING PATTERN. absent: Respiratory Distress - Cardiovascular Exam Cardiovascular Exam: Irregular Rhythm, +S1, +S2 - GI/Abdominal Exam GI & Abdominal Exam: Soft, Hypoactive Bowel Sounds - Extremities Exam Additional comments: chronic venous stasis, weak lower extremity pulses - Neurological Exam Neurological Exam: Awake - Skin Skin Exam: Dry, Warm Assessment and Plan - Assessment and Plan (Free Text) Assessment: 1.Acute NSTEMI, Asystole ,CPR/Sustained [place] Cardiology consult, Dr. Houston. Help appreciated Patient and Family not want her to go for cardiac cath Echo shows EF of 15-20%-High risk for arrhythmia and poor prognosis Cardizem 30 mg PO Q6 Lopressor 25 mg PO BID ASA 81 mg PO daily Crestor 5 mg HS continue medical management 2. Respiratory failure, s/p intubation and later extubation Previously intubated in the ICU and now extubated Saturating well on non-re breather mask Comfortable. wean oxygen as tolerated 3. Atrial Fibrillation CHADS-VAsc score 8 INR today 2.9 Holding Coumadin tonight ,follow INR Rate controlled with Lopressor and Cardizem 4. ESRD . s/p Acute renal failure on chronic renal disease Nephrology consult, Dr. Hebert, help appreciated Dialysis T,,S Renvela TID On 09/10: L IJ permacath placed and left shiley removed getting Midodrine during dialysis for hypotension 5. Sepsis Previously on Vancomycin, flagyl, and aztreonam Now currently only on Aztreonam for pseudomonas in the sputum 7. Pleural effusion Persistent left loculated pleural effusion 8. Hyperglycemia and uncontrolled DM Aspart sliding scale Lantus 10 units HS 9. Anemia of chronic disease, CKD Procrit T,,S Ferrous gluconate 324 mg TID 10. Prophylaxis and supportive care Tube feeds through NGT Protonix 40 mg IV daily DVT prophylaxis with Coumadin, currently therapeutic INR Discussed with attending Dr. Boateng <Jose Boateng - Last Filed: 09/14/17 15:28> Objective - Vital Signs/Intake and Output Vital Signs (last 24 hours): Temp Pulse Resp BP Pulse Ox 97.7 F 72 17 99/59 L 100 09/14/17 12:20 09/14/17 12:20 09/14/17 12:20 09/14/17 14:50 09/14/17 12:20 Intake and Output: 09/14/17 09/14/17 06:59 18:59 Intake Total 890 Balance 890 - Medications Medications: Current Medications Albumin Human (Albumin Human 25% (12.5 Gm/50 Ml)) 25 gm IV TTS PRN PRN Reason: Other Last Admin: 09/14/17 14:46 Dose: 25 gm Aspirin (Aspirin Chewable) 81 mg PO DAILY [facility] Last Admin: 09/14/17 10:18 Dose: 81 mg Dextrose (Dextrose 50% Inj) 0 ml IV STAT PRN; Protocol PRN Reason: Hypoglycemia Protocol Dextrose (Glutose 15) 0 gm PO ONCE PRN; Protocol PRN Reason: Hypoglycemia Protocol Diltiazem HCl (Cardizem) 30 mg PO Q6H [facility] Last Admin: 09/14/17 14:07 Dose: Not Given Epoetin Alan (Procrit) 10,000 unit IV TTS [facility] Last Admin: 09/14/17 14:44 Dose: 10,000 unit Epoetin Alan (Procrit) 2,000 u IV TTS [facility] Last Admin: 09/14/17 14:44 Dose: 2,000 u Ferrous Gluconate (Fergon) 324 mg PO TID [facility] Last Admin: 09/14/17 14:07 Dose: Not Given Glucagon (Glucagen Diagnostic Kit) 0 mg IM STAT PRN; Protocol PRN Reason: Hypoglycemia Protocol Heparin Sodium (Porcine) (Heparin) 1,000 units IVP TTS [facility] Last Admin: 09/14/17 14:59 Dose: 1,000 units Aztreonam 1 gm/ Sodium (Chloride) 100 mls @ 100 mls/hr IVPB DAILY [facility] PRN Reason: Protocol Last Admin: 09/14/17 10:22 Dose: 100 mls/hr Dextrose (Dextrose 5% In Water 1000 Ml) 1,000 mls @ 0 mls/hr IV .Q0M PRN; Protocol; Per Protocol PRN Reason: Hypoglycemia Protocol Insulin Aspart (Novolog) 0 unit SC Q6 [facility] PRN Reason: Protocol Last Admin: 09/14/17 12:41 Dose: Not Given Insulin Glargine (Lantus) 10 unit SC [facility] Metoprolol Tartrate (Lopressor) 25 mg PO BID [facility] Last Admin: 09/14/17 10:20 Dose: Not Given Midodrine (Proamatine) 10 mg PO TTS [facility] Midodrine (Proamatine) 10 mg PO TTS [facility] Pantoprazole Sodium (Protonix Inj) 40 mg IVP DAILY [facility] Last Admin: 09/14/17 10:21 Dose: 40 mg Paricalcitol (Zemplar) 2 mcg IV TTS [facility] Last Admin: 09/14/17 14:43 Dose: 2 mcg Rosuvastatin Calcium (Crestor) 5 mg PO HS [facility] Last Admin: 09/13/17 22:01 Dose: 5 mg Sennosides (Senokot Tab) 8.6 mg NG DAILY [facility] Last Admin: 09/14/17 10:18 Dose: 8.6 mg Sevelamer Carbonate (Renvela) 800 mg PO TIDCC [facility] Last Admin: 09/14/17 14:08 Dose: Not Given Vitamin B Complex/Vit C/Folic Acid (Nephro-Kamron) 1 tab PO 0800 [facility] Last Admin: 09/14/17 08:30 Dose: Not Given - Labs Labs: 09/14/17 07:35 09/14/17 07:35 PT 34.0 SECONDS (9.7-12.2) H* 09/14/17 07:35 INR 2.9 09/14/17 07:35 APTT 29 SECONDS (21-34) 09/12/17 08:24 Attending/Attestation - Attestation I have personally seen and examined this patient.: Yes I have fully participated in the care of the patient.: Yes I have reviewed all pertinent clinical information, including history, physical exam and plan: Yes Notes (Text): Patient was seen and examined. She is resting on bed. Responsive and denies pain. Has cough. no sob,on non rebreather Going for dialysis today. Her prognosis bad. She is full code continue antibiotics Azactam as per ID. Hold Coumadin her INR is 2.9,follow INR continue NG feeds. follow swallowing study. PT on Saturday if she is stable Case discussed with the resident and the RN I agree with the documentation of the assessment and the plan of the resident
[2017-09-14] MEDS: Paricalcitol 2 mcg/ml Inj IV SCH (14:43)
[2017-09-14] MEDS: Epoetin Alfa 10,000 unit/ml Dialysis IV SCH (14:44)
[2017-09-14] MEDS: Epoetin Alfa Dialysis 2000 U/ML Inj IV SCH (14:44)
[2017-09-14] MEDS ORDERED: Albuterol-Ipratrop 3 mg / 0.5 (3 ml) UD INH SCH (20:00)
[2017-09-14] MEDS: (Lantus) Insulin Glargine, Recombinant SC SCH (21:28)
[2017-09-15] MEDS: (Novolog) Insulin Aspart, Recombinant 100 u/ml 10 ml vial SC SCH ×4 (01:04→18:11)
[2017-09-15] MEDS: Multivitamin Vitamin B Complex (Nephro-Vite) Tab PO SCH (08:14)
[2017-09-15 08:43] LABS: BASO % 0.2 % (0.0-2.0); EOS # 0.1 K/uL (0.0-0.7); EOS % 0.3 % (0.0-4.0); HEMOGLOBIN 8.4 g/dL (11.0-16.0); LYMPH # 0.3 K/uL (1.0-4.3); LYMPH % 1.7 % (20.0-40.0); MEAN CELL VOLUME 87.9 fL (81.0-99.0); MEAN CORPUSCULAR HEMOGLOBIN 27.9 pg (27.0-31.0); MEAN CORPUSCULAR HGB CONC 31.7 g/dL (33.0-37.0); MEAN PLATELET VOLUME 9.4 fL (7.2-11.7); MONO # 0.3 K/uL (0.0-0.8); NEUT # 16.9 K/uL (1.8-7.0); NEUT % 95.8 % (50.0-75.0); NRBC % 0.1 % (0.0-2.0); PLATELET COUNT 200 K/uL (130-400); RBC 3.03 Mil/uL (3.80-5.20); RED CELL DISTRIBUTION WIDTH 18.3 % (11.5-14.5); WHITE BLOOD COUNT 17.6 K/uL (4.8-10.8)
[2017-09-15 08:57] LABS: INR 2.2; PROTHROMBIN TIME 25.4 SECONDS (9.7-12.2)
[2017-09-15 09:01] LABS: ALB/GLOB RATIO 0.9 (1.0-2.1); ALBUMIN 2.8 g/dL (3.5-5.0); CALCIUM 8.2 mg/dl (8.6-10.4)
[2017-09-15 10:05] LABS: BANDS 2 % (0-2); LYMPHOCYTE 1 % (20-40); MONOCYTE 2 % (0-10); NEUTROPHIL 95 % (50-75); TOTAL CELLS COUNTED 100
[2017-09-15 10:06] LABS: ANISOCYTOSIS SLIGHT; GIANT PLATELETS PRESENT; LARGE PLATELETS PRESENT; PLATELET ESTIMATE NORMAL (NORMAL); TARGET CELLS SLIGHT; TEARDROP CELLS SLIGHT; TOXIC GRANULATION PRESENT
[2017-09-15] MEDS: Aztreonam 1 GM in Sodium Chloride 0.9% 100 ML IVPB SCH (10:06)
[2017-09-15 10:07] LABS: HYPOCHROMIC SLIGHT; MICROCYTOSIS SLIGHT; OVALOCYTES SLIGHT; POIKILOCYTOSIS SLIGHT; POLYCHROMIC SLIGHT
[2017-09-15 10:08] LABS: SPHEROCYTES SLIGHT
--- NOTE | 2017-09-15 10:59 | CP.PCM.PN ---
<Tuyet Alonso - Last Filed: 09/15/17 11:26> Subjective - Date & Time of Evaluation Date of Evaluation: 09/15/17 Time of Evaluation: 09:00 - Subjective Subjective: Patient seen and examined at bedside. No acute events reported overnight. Patient is unable to speak but awake and responsive to verbal stimuli. Unable to obtain meaningful ROS due to current condition. Objective - Vital Signs/Intake and Output Vital Signs (last 24 hours): Temp Pulse Resp BP Pulse Ox 98.1 F 81 20 106/66 96 09/15/17 08:00 09/15/17 08:00 09/15/17 08:00 09/15/17 10:08 09/15/17 08:00 Intake and Output: 09/15/17 09/15/17 06:59 18:59 Intake Total 240 470 Balance 240 470 - Medications Medications: Current Medications Albumin Human (Albumin Human 25% (12.5 Gm/50 Ml)) 25 gm IV TTS PRN PRN Reason: Other Last Admin: 09/14/17 14:46 Dose: 25 gm Albuterol/Ipratropium (Duoneb 3 Mg/0.5 Mg (3 Ml) Ud) 3 ml INH RQ4 PRN PRN Reason: Shortness of Breath Aspirin (Aspirin Chewable) 81 mg PO DAILY [facility] Last Admin: 09/15/17 10:06 Dose: 81 mg Dextrose (Dextrose 50% Inj) 0 ml IV STAT PRN; Protocol PRN Reason: Hypoglycemia Protocol Dextrose (Glutose 15) 0 gm PO ONCE PRN; Protocol PRN Reason: Hypoglycemia Protocol Diltiazem HCl (Cardizem) 30 mg PO Q6H [facility] Last Admin: 09/15/17 06:07 Dose: 30 mg Epoetin Alan (Procrit) 10,000 unit IV TTS [facility] Last Admin: 09/14/17 14:44 Dose: 10,000 unit Epoetin Alan (Procrit) 2,000 u IV TTS [facility] Last Admin: 09/14/17 14:44 Dose: 2,000 u Ferrous Gluconate (Fergon) 324 mg PO TID [facility] Last Admin: 09/15/17 10:08 Dose: 324 mg Glucagon (Glucagen Diagnostic Kit) 0 mg IM STAT PRN; Protocol PRN Reason: Hypoglycemia Protocol Heparin Sodium (Porcine) (Heparin) 1,000 units IVP TTS [facility] Last Admin: 09/14/17 14:59 Dose: 1,000 units Aztreonam 1 gm/ Sodium (Chloride) 100 mls @ 100 mls/hr IVPB DAILY [facility] PRN Reason: Protocol Last Admin: 09/15/17 10:06 Dose: 100 mls/hr Dextrose (Dextrose 5% In Water 1000 Ml) 1,000 mls @ 0 mls/hr IV .Q0M PRN; Protocol; Per Protocol PRN Reason: Hypoglycemia Protocol Insulin Aspart (Novolog) 0 unit SC Q6 [facility] PRN Reason: Protocol Last Admin: 09/15/17 06:15 Dose: 8 unit Insulin Glargine (Lantus) 10 unit SC HS [facility] Last Admin: 09/14/17 21:28 Dose: 10 unit Metoprolol Tartrate (Lopressor) 25 mg PO BID [facility] Last Admin: 09/15/17 10:08 Dose: Not Given Midodrine (Proamatine) 10 mg PO TTS [facility] Midodrine (Proamatine) 10 mg PO TTS [facility] Last Admin: 09/14/17 17:22 Dose: 10 mg Pantoprazole Sodium (Protonix Inj) 40 mg IVP DAILY [facility] Last Admin: 09/15/17 10:06 Dose: 40 mg Paricalcitol (Zemplar) 2 mcg IV TTS [facility] Last Admin: 09/14/17 14:43 Dose: 2 mcg Rosuvastatin Calcium (Crestor) 5 mg PO HS [facility] Last Admin: 09/14/17 21:28 Dose: 5 mg Sennosides (Senokot Tab) 8.6 mg NG DAILY [facility] Last Admin: 09/15/17 10:06 Dose: 8.6 mg Sevelamer Carbonate (Renvela) 800 mg PO TIDCC [facility] Last Admin: 09/15/17 08:14 Dose: 800 mg Vitamin B Complex/Vit C/Folic Acid (Nephro-Kamron) 1 tab PO 0800 [facility] Last Admin: 09/15/17 08:14 Dose: Not Given - Labs Labs: 09/15/17 08:26 09/15/17 08:26 PT 25.4 SECONDS (9.7-12.2) H D 09/15/17 08:26 INR 2.2 D 09/15/17 08:26 APTT 29 SECONDS (21-34) 09/12/17 08:24 - Constitutional Appears: No Acute Distress, Chronically Ill - Head Exam Additional comments: NT tube, non-rebreath mask in place - Eye Exam Eye Exam: Normal appearance - ENT Exam ENT Exam: Mucous Membranes Moist - Respiratory Exam Respiratory Exam: Decreased Breath Sounds, NORMAL BREATHING PATTERN - Cardiovascular Exam Cardiovascular Exam: Irregular Rhythm, +S1, +S2 - GI/Abdominal Exam GI & Abdominal Exam: Soft, Hypoactive Bowel Sounds - Extremities Exam Additional comments: chronic venous stasis, weak lower extremity pulses - Neurological Exam Neurological Exam: Awake - Skin Skin Exam: Dry, Warm Assessment and Plan - Assessment and Plan (Free Text) Assessment: 1.Acute NSTEMI, Asystole ,CPR/Sustained [place] Cardiology consult, Dr. Houston. Help appreciated Patient and Family not want her to go for cardiac cath Echo shows EF of 15-20%-High risk for arrhythmia and poor prognosis Cardizem 30 mg PO Q6 Lopressor 25 mg PO BID ASA 81 mg PO daily Crestor 5 mg HS continue medical management 2. Respiratory failure, s/p intubation and later extubation Previously intubated in the ICU and now extubated Saturating well on non-re breather mask Comfortable. wean oxygen as tolerated 3. Atrial Fibrillation CHADS-VAsc score 8 INR today 2.2 Holding Coumadin tonight ,follow INR Rate controlled with Lopressor and Cardizem 4. ESRD . s/p Acute renal failure on chronic renal disease Nephrology consult, Dr. Hebert, help appreciated Dialysis T,,S Renvela TID On 09/10: L IJ permacath placed and left shiley removed getting Midodrine during dialysis for hypotension 5. Sepsis Previously on Vancomycin, flagyl, and aztreonam Now currently only on Aztreonam for pseudomonas in the sputum 7. Pleural effusion Persistent left loculated pleural effusion 8. Hyperglycemia and uncontrolled DM Aspart sliding scale Lantus 10 units HS 9. Anemia of chronic disease, CKD Procrit T,,S Ferrous gluconate 324 mg TID 10. Prophylaxis and supportive care Tube feeds through NGT Protonix 40 mg IV daily DVT prophylaxis with Coumadin, currently therapeutic INR Discussed with attending Dr. Boateng <Jose Boateng - Last Filed: 09/15/17 15:39> Objective - Vital Signs/Intake and Output Vital Signs (last 24 hours): Temp Pulse Resp BP Pulse Ox 98.1 F 114 H 22 95/55 L 99 09/15/17 08:00 09/15/17 12:22 09/15/17 12:22 09/15/17 12:22 09/15/17 12:22 Intake and Output: 09/15/17 09/15/17 06:59 18:59 Intake Total 240 470 Balance 240 470 - Medications Medications: Current Medications Albumin Human (Albumin Human 25% (12.5 Gm/50 Ml)) 25 gm IV TTS PRN PRN Reason: Other Last Admin: 09/14/17 14:46 Dose: 25 gm Albuterol/Ipratropium (Duoneb 3 Mg/0.5 Mg (3 Ml) Ud) 3 ml INH RQ4 PRN PRN Reason: Shortness of Breath Last Admin: 09/15/17 11:42 Dose: 3 ml Aspirin (Aspirin Chewable) 81 mg PO DAILY [facility] Last Admin: 09/15/17 10:06 Dose: 81 mg Dextrose (Dextrose 50% Inj) 0 ml IV STAT PRN; Protocol PRN Reason: Hypoglycemia Protocol Dextrose (Glutose 15) 0 gm PO ONCE PRN; Protocol PRN Reason: Hypoglycemia Protocol Diltiazem HCl (Cardizem) 30 mg PO Q6H [facility] Last Admin: 09/15/17 13:04 Dose: Not Given Epoetin Alan (Procrit) 10,000 unit IV TTS [facility] Last Admin: 09/14/17 14:44 Dose: 10,000 unit Epoetin Alan (Procrit) 2,000 u IV TTS [facility] Last Admin: 09/14/17 14:44 Dose: 2,000 u Ferrous Gluconate (Fergon) 324 mg PO TID [facility] Last Admin: 09/15/17 13:24 Dose: 324 mg Glucagon (Glucagen Diagnostic Kit) 0 mg IM STAT PRN; Protocol PRN Reason: Hypoglycemia Protocol Heparin Sodium (Porcine) (Heparin) 1,000 units IVP TTS [facility] Last Admin: 09/14/17 14:59 Dose: 1,000 units Aztreonam 1 gm/ Sodium (Chloride) 100 mls @ 100 mls/hr IVPB DAILY [facility] PRN Reason: Protocol Last Admin: 09/15/17 10:06 Dose: 100 mls/hr Dextrose (Dextrose 5% In Water 1000 Ml) 1,000 mls @ 0 mls/hr IV .Q0M PRN; Protocol; Per Protocol PRN Reason: Hypoglycemia Protocol Insulin Aspart (Novolog) 0 unit SC Q6 [facility] PRN Reason: Protocol Last Admin: 09/15/17 12:29 Dose: 6 unit Insulin Glargine (Lantus) 10 unit SC HS [facility] Last Admin: 09/14/17 21:28 Dose: 10 unit Metoprolol Tartrate (Lopressor) 25 mg PO BID [facility] Last Admin: 09/15/17 10:08 Dose: Not Given Midodrine (Proamatine) 10 mg PO TTS [facility] Midodrine (Proamatine) 10 mg PO TTS [facility] Last Admin: 09/14/17 17:22 Dose: 10 mg Pantoprazole Sodium (Protonix Inj) 40 mg IVP DAILY [facility] Last Admin: 09/15/17 10:06 Dose: 40 mg Paricalcitol (Zemplar) 2 mcg IV TTS [facility] Last Admin: 09/14/17 14:43 Dose: 2 mcg Rosuvastatin Calcium (Crestor) 5 mg PO [facility] Last Admin: 09/14/17 21:28 Dose: 5 mg Sennosides (Senokot Tab) 8.6 mg NG DAILY [facility] Last Admin: 09/15/17 10:06 Dose: 8.6 mg Sevelamer Carbonate (Renvela) 800 mg PO TIDCC [facility] Last Admin: 09/15/17 12:23 Dose: 800 mg Vitamin B Complex/Vit C/Folic Acid (Nephro-Kamron) 1 tab PO 0800 [facility] Last Admin: 09/15/17 08:14 Dose: Not Given Warfarin Sodium (Coumadin) 2.5 mg PO 1800 [facility] Stop: 09/15/17 18:01 - Labs Labs: 09/15/17 08:26 09/15/17 08:26 PT 25.4 SECONDS (9.7-12.2) H D 09/15/17 08:26 INR 2.2 D 09/15/17 08:26 APTT 29 SECONDS (21-34) 09/12/17 08:24 Attending/Attestation - Attestation I have personally seen and examined this patient.: Yes I have fully participated in the care of the patient.: Yes I have reviewed all pertinent clinical information, including history, physical exam and plan: Yes Notes (Text): Seen and examined,She is awake and responsive. Looks comfortable. On nonrebreather Had dialysis yesterday She is full code continue antibiotics Azactam as per ID. Hb 8.4,wbc coming down ,today 17.6 resume Coumadin 2.5mg tonight .her INR is 2.2,follow INR continue NG feeds. follow swallowing study. PT on Saturday if she is stable Case discussed with the resident and the RN. Try to wean from nonrebreather I agree with the documentation of the assessment and the plan of the resident
[2017-09-15] MEDS: Albuterol-Ipratrop 3 mg / 0.5 (3 ml) UD INH PRN (11:42)
[2017-09-16] MEDS: (Lantus) Insulin Glargine, Recombinant SC SCH ×2 (00:21→21:33)
[2017-09-16] MEDS: (Novolog) Insulin Aspart, Recombinant 100 u/ml 10 ml vial SC SCH ×4 (00:23→18:12)
[2017-09-16 07:00] LABS: BASO # 0.1 K/uL (0.0-0.2); BASO % 0.4 % (0.0-2.0); EOS # 0.1 K/uL (0.0-0.7); EOS % 0.4 % (0.0-4.0); HEMOGLOBIN 8.4 g/dL (11.0-16.0); LYMPH # 0.3 K/uL (1.0-4.3); LYMPH % 1.8 % (20.0-40.0); MEAN CELL VOLUME 87.6 fL (81.0-99.0); MEAN CORPUSCULAR HEMOGLOBIN 27.9 pg (27.0-31.0); MEAN CORPUSCULAR HGB CONC 31.9 g/dL (33.0-37.0); MONO # 0.6 K/uL (0.0-0.8); MONO % 3.4 % (0.0-10.0); PLATELET COUNT 196 K/uL (130-400); RBC 3.01 Mil/uL (3.80-5.20); RED CELL DISTRIBUTION WIDTH 18.7 % (11.5-14.5)
[2017-09-16 07:11] LABS: INR 1.8
--- NOTE | 2017-09-16 07:32 | CP.PCM.PN ---
<Gee Raines - Last Filed: 09/16/17 15:24> Subjective - Date & Time of Evaluation Date of Evaluation: 09/16/17 Time of Evaluation: 07:20 - Subjective Subjective: Medicine progress note for Dr. Lockhart Patient seen and examined. Patient is non-verbal at the moment but able to nod and shake her head to questioning. Patient following simple commands. Could not obtain ROS due to clinical status. Objective - Vital Signs/Intake and Output Vital Signs (last 24 hours): Temp Pulse Resp BP Pulse Ox 98.8 F 109 H 20 120/71 95 09/15/17 23:10 09/16/17 01:00 09/15/17 23:10 09/16/17 05:00 09/15/17 23:10 Intake and Output: 09/16/17 09/16/17 06:59 18:59 Intake Total 420 Balance 420 - Medications Medications: Current Medications Albumin Human (Albumin Human 25% (12.5 Gm/50 Ml)) 25 gm IV TTS PRN PRN Reason: Other Last Admin: 09/14/17 14:46 Dose: 25 gm Albuterol/Ipratropium (Duoneb 3 Mg/0.5 Mg (3 Ml) Ud) 3 ml INH RQ4 PRN PRN Reason: Shortness of Breath Last Admin: 09/15/17 11:42 Dose: 3 ml Aspirin (Aspirin Chewable) 81 mg PO DAILY [facility] Last Admin: 09/15/17 10:06 Dose: 81 mg Dextrose (Dextrose 50% Inj) 0 ml IV STAT PRN; Protocol PRN Reason: Hypoglycemia Protocol Dextrose (Glutose 15) 0 gm PO ONCE PRN; Protocol PRN Reason: Hypoglycemia Protocol Diltiazem HCl (Cardizem) 30 mg PO Q6H [facility] Last Admin: 09/16/17 06:05 Dose: 30 mg Epoetin Alan (Procrit) 10,000 unit IV TTS [facility] Last Admin: 09/14/17 14:44 Dose: 10,000 unit Epoetin Alan (Procrit) 2,000 u IV TTS [facility] Last Admin: 09/14/17 14:44 Dose: 2,000 u Ferrous Gluconate (Fergon) 324 mg PO TID [facility] Last Admin: 09/15/17 18:11 Dose: 324 mg Glucagon (Glucagen Diagnostic Kit) 0 mg IM STAT PRN; Protocol PRN Reason: Hypoglycemia Protocol Heparin Sodium (Porcine) (Heparin) 1,000 units IVP TTS [facility] Last Admin: 09/14/17 14:59 Dose: 1,000 units Aztreonam 1 gm/ Sodium (Chloride) 100 mls @ 100 mls/hr IVPB DAILY [facility] PRN Reason: Protocol Last Admin: 09/15/17 10:06 Dose: 100 mls/hr Dextrose (Dextrose 5% In Water 1000 Ml) 1,000 mls @ 0 mls/hr IV .Q0M PRN; Protocol; Per Protocol PRN Reason: Hypoglycemia Protocol Insulin Aspart (Novolog) 0 unit SC Q6 [facility] PRN Reason: Protocol Last Admin: 09/16/17 06:57 Dose: 6 unit Insulin Glargine (Lantus) 10 unit SC HS [facility] Last Admin: 09/16/17 00:21 Dose: 10 unit Metoprolol Tartrate (Lopressor) 25 mg PO BID [facility] Last Admin: 09/15/17 18:58 Dose: 25 mg Midodrine (Proamatine) 10 mg PO TTS [facility] Midodrine (Proamatine) 10 mg PO TTS [facility] Last Admin: 09/14/17 17:22 Dose: 10 mg Pantoprazole Sodium (Protonix Ec Tab) 40 mg PO DAILY [facility] Paricalcitol (Zemplar) 2 mcg IV TTS [facility] Last Admin: 09/14/17 14:43 Dose: 2 mcg Rosuvastatin Calcium (Crestor) 5 mg PO HS [facility] Last Admin: 09/15/17 22:32 Dose: 5 mg Sennosides (Senokot Tab) 8.6 mg NG DAILY [facility] Last Admin: 09/15/17 10:06 Dose: 8.6 mg Sevelamer Carbonate (Renvela) 800 mg PO TIDCC [facility] Last Admin: 09/15/17 18:00 Dose: 800 mg Vitamin B Complex/Vit C/Folic Acid (Nephro-Kamron) 1 tab PO 0800 [facility] Last Admin: 09/15/17 08:14 Dose: Not Given - Labs Labs: 09/16/17 06:51 09/15/17 08:26 PT 21.0 SECONDS (9.7-12.2) H 09/16/17 06:51 INR 1.8 09/16/17 06:51 APTT 29 SECONDS (21-34) 09/12/17 08:24 - Additional Findings Additional findings: - Constitutional Appears: No Acute Distress, Chronically Ill - Eye Exam Eye Exam: EOMI, Normal appearance - ENT Exam ENT Exam: Mucous Membranes Moist Additional comments: NGT in place - Respiratory Exam Additional comments: Very coarse breath sounds bilaterally - Cardiovascular Exam Cardiovascular Exam: Irregular Rhythm, +S1, +S2 - GI/Abdominal Exam GI & Abdominal Exam: Soft, Hypoactive Bowel Sounds. absent: Distended, Guarding , Tenderness - Extremities Exam Additional comments: Evidence of chronic venous stasis Pedal pulses weak - Neurological Exam Neurological Exam: Awake - Skin Skin Exam: Dry, Warm Assessment and Plan - Assessment and Plan (Free Text) Plan: 1. Acute NSTEMI, Asystole ,CPR/Sustained VT Previously on Heparin GGT Cardiology consult, Dr. Houston. Help appreciated Family elected against cardiac catheterization despite the advice of multiple professionals Echo shows EF of 15-20% Cardizem 30 mg PO Q6 Lopressor 25 mg PO BID ASA 81 mg PO daily Crestor 5 mg HS 2. Respiratory failure, s/p intubation and later extubation Previously intubated in the ICU and now extubated Saturating well on non-rebreather mask 3. Atrial Fibrillation CHADS-VAsc score 8 INR today 1.8 Coumadin 2.5 mg tonight Rate controlled with Lopressor and Cardizem 4. Acute renal failure on chronic renal disease/Now ESRD on HD Nephrology consult, Dr. Hebert, help appreciated Dialysis T,,S Renvela TID On 09/10: L IJ permacath placed and left shiley removed 5. Sepsis Previously on Vancomycin, flagyl, and aztreonam Now currently only on Aztreonam for pseudomonas in the sputum Elevated procalcitonin 6.1 6. Acute systolic heart failure Family refuses cardiac cath. has high risk for arrhythmia and poor prognosis Family aware of her condition ECHO shows EF 15 to 20% 7. Pleural effusion Persistent left loculated pleural effusion 8. Hyperglycemia and uncontrolled DM Aspart sliding scale Lantus 10 units HS 9. Anemia of chronic disease, CKD Procrit T,,S Ferrous gluconate 324 mg TID 10. Prophylaxis Tube feeds through NGT Protonix 40 mg IV daily DVT prophylaxis with Coumadin, currently subtherapeutic INR. Will administer Coumadin today and recheck tomorrow. Disposition: Family has requested DNR/DNI per palliative. Hospice evaluation was placed. Discussed with Dr. Chantelle Raines PGY-1 <Michael Lockhart H - Last Filed: 09/16/17 17:59> Objective - Vital Signs/Intake and Output Vital Signs (last 24 hours): Temp Pulse Resp BP Pulse Ox 98.6 F 113 H 20 101/63 100 09/16/17 15:00 09/16/17 16:00 09/16/17 15:00 09/16/17 15:00 09/16/17 15:00 Intake and Output: 09/16/17 09/16/17 06:59 18:59 Intake Total 420 90 Balance 420 90 - Medications Medications: Current Medications Albumin Human (Albumin Human 25% (12.5 Gm/50 Ml)) 25 gm IV TTS PRN PRN Reason: Other Last Admin: 09/14/17 14:46 Dose: 25 gm Albuterol/Ipratropium (Duoneb 3 Mg/0.5 Mg (3 Ml) Ud) 3 ml INH RQ4 PRN PRN Reason: Shortness of Breath Last Admin: 09/16/17 14:15 Dose: 3 ml Aspirin (Aspirin Chewable) 81 mg PO DAILY [facility] Last Admin: 09/16/17 11:44 Dose: Not Given Dextrose (Dextrose 50% Inj) 0 ml IV STAT PRN; Protocol PRN Reason: Hypoglycemia Protocol Dextrose (Glutose 15) 0 gm PO ONCE PRN; Protocol PRN Reason: Hypoglycemia Protocol Diltiazem HCl (Cardizem) 30 mg PO Q6H [facility] Last Admin: 09/16/17 13:45 Dose: 30 mg Epoetin Alan (Procrit) 10,000 unit IV TTS [facility] Last Admin: 09/14/17 14:44 Dose: 10,000 unit Epoetin Alan (Procrit) 2,000 u IV TTS [facility] Last Admin: 09/14/17 14:44 Dose: 2,000 u Ferrous Gluconate (Fergon) 324 mg PO TID [facility] Last Admin: 09/16/17 14:22 Dose: 324 mg Glucagon (Glucagen Diagnostic Kit) 0 mg IM STAT PRN; Protocol PRN Reason: Hypoglycemia Protocol Heparin Sodium (Porcine) (Heparin) 1,000 units IVP TTS [facility] Last Admin: 09/14/17 14:59 Dose: 1,000 units Aztreonam 1 gm/ Sodium (Chloride) 100 mls @ 100 mls/hr IVPB DAILY [facility] PRN Reason: Protocol Last Admin: 09/16/17 16:32 Dose: 100 mls/hr Dextrose (Dextrose 5% In Water 1000 Ml) 1,000 mls @ 0 mls/hr IV .Q0M PRN; Protocol; Per Protocol PRN Reason: Hypoglycemia Protocol Insulin Aspart (Novolog) 0 unit SC Q6 [facility] PRN Reason: Protocol Last Admin: 09/16/17 12:40 Dose: 4 unit Insulin Glargine (Lantus) 10 unit SC HS [facility] Last Admin: 09/16/17 00:21 Dose: 10 unit Metoprolol Tartrate (Lopressor) 25 mg PO BID [facility] Last Admin: 09/16/17 11:45 Dose: Not Given Midodrine (Proamatine) 10 mg PO TTS [facility] Midodrine (Proamatine) 10 mg PO TTS [facility] Last Admin: 09/14/17 17:22 Dose: 10 mg Pantoprazole Sodium (Protonix Ec Tab) 40 mg PO DAILY [facility] Last Admin: 09/16/17 11:45 Dose: Not Given Paricalcitol (Zemplar) 2 mcg IV TTS [facility] Last Admin: 09/14/17 14:43 Dose: 2 mcg Rosuvastatin Calcium (Crestor) 5 mg PO HS [facility] Last Admin: 09/15/17 22:32 Dose: 5 mg Sennosides (Senokot Tab) 8.6 mg NG DAILY [facility] Last Admin: 09/16/17 11:45 Dose: Not Given Sevelamer Carbonate (Renvela) 800 mg PO TIDCC [facility] Last Admin: 09/16/17 11:46 Dose: Not Given Vitamin B Complex/Vit C/Folic Acid (Nephro-Kamron) 1 tab PO 0800 [facility] Last Admin: 09/16/17 09:57 Dose: Not Given Warfarin Sodium (Coumadin) 2.5 mg PO 1800 [facility] Stop: 09/16/17 18:01 - Labs Labs: 09/16/17 06:51 09/16/17 06:51 PT 21.0 SECONDS (9.7-12.2) H 09/16/17 06:51 INR 1.8 09/16/17 06:51 APTT 29 SECONDS (21-34) 09/12/17 08:24 Attending/Attestation - Attestation I have personally seen and examined this patient.: Yes I have fully participated in the care of the patient.: Yes I have reviewed all pertinent clinical information, including history, physical exam and plan: Yes Notes (Text): 09/16/17 17:53 Medical attending: Patient was seen and examined by me. Agree with the above note by the resident The patient is known to me from the previous week. At that time she was still intubated in the ICU after having a large NSTEMI. Since then she is now extubated and out of the ICU. She remains on HD as well as anticoagulation for atrial fibrillation. Her overall condition is unfortunately is very poor. She was non verbal when I saw her with the resident this morning. She does follow some very basic commands such as lifting her arms up when asked. She also seemed to indicate with gestures that she was NOT in pain. Her breathing situation is NOT good. She was on a nonrebreather mask and there were loud audible rales and rhonci on examination. They have been giving her NGT feedings. Because of her situation we thought she may be could benefit from a PEG tube. My thoughts were that if the patient's family wanted everything done then she would need an LTAC eval - if not then we would be purisng the hospice/comfort care rout. Later in the day palliative care consult explained to me that they spoke with the family and after discussing with them it was explained that they have made patient DNR/DNI. We will get a palliative/hospice evaluation as well. For now continue all medications as before. thank you Michael Lockhart
[2017-09-16 07:46] LABS: ALB/GLOB RATIO 0.9 (1.0-2.1); ALBUMIN 2.8 g/dL (3.5-5.0); CALCIUM 7.9 mg/dl (8.6-10.4)
[2017-09-16 08:59] LABS: LYMPHOCYTE 3 % (20-40); MONOCYTE 3 % (0-10); NEUTROPHIL 94 % (50-75); PLATELET ESTIMATE NORMAL (NORMAL); TOTAL CELLS COUNTED 100
[2017-09-16 09:00] LABS: ANISOCYTOSIS SLIGHT; HYPOCHROMIC SLIGHT; LARGE PLATELETS PRESENT; MICROCYTOSIS SLIGHT; OVALOCYTES SLIGHT; POIKILOCYTOSIS SLIGHT; POLYCHROMIC SLIGHT
[2017-09-16 09:01] LABS: BURR CELLS SLIGHT
[2017-09-16] MEDS: Multivitamin Vitamin B Complex (Nephro-Vite) Tab PO SCH (09:57)
--- NOTE | 2017-09-16 11:06 | CP.PCM.PN ---
Subjective - Date & Time of Evaluation Date of Evaluation: 09/16/17 Time of Evaluation: 06:45 - Subjective Subjective: Surgery Progress note. Dr. Quinonez Pt seen and examined at bedside. No acute events overnight. Patient is not alert and oriented. Has increased respiratory effort with gurgling sounds. No F/ C. Objective - Vital Signs/Intake and Output Vital Signs (last 24 hours): Temp Pulse Resp BP Pulse Ox 98.8 F 103 H 20 107/72 99 09/16/17 07:10 09/16/17 08:00 09/16/17 07:10 09/16/17 07:10 09/16/17 07:10 Intake and Output: 09/16/17 09/16/17 06:59 18:59 Intake Total 420 90 Balance 420 90 - Medications Medications: Current Medications Albumin Human (Albumin Human 25% (12.5 Gm/50 Ml)) 25 gm IV TTS PRN PRN Reason: Other Last Admin: 09/14/17 14:46 Dose: 25 gm Albuterol/Ipratropium (Duoneb 3 Mg/0.5 Mg (3 Ml) Ud) 3 ml INH RQ4 PRN PRN Reason: Shortness of Breath Last Admin: 09/15/17 11:42 Dose: 3 ml Aspirin (Aspirin Chewable) 81 mg PO DAILY [facility] Last Admin: 09/15/17 10:06 Dose: 81 mg Dextrose (Dextrose 50% Inj) 0 ml IV STAT PRN; Protocol PRN Reason: Hypoglycemia Protocol Dextrose (Glutose 15) 0 gm PO ONCE PRN; Protocol PRN Reason: Hypoglycemia Protocol Diltiazem HCl (Cardizem) 30 mg PO Q6H [facility] Last Admin: 09/16/17 06:05 Dose: 30 mg Epoetin Alan (Procrit) 10,000 unit IV TTS [facility] Last Admin: 09/14/17 14:44 Dose: 10,000 unit Epoetin Alan (Procrit) 2,000 u IV TTS [facility] Last Admin: 09/14/17 14:44 Dose: 2,000 u Ferrous Gluconate (Fergon) 324 mg PO TID [facility] Last Admin: 09/15/17 18:11 Dose: 324 mg Glucagon (Glucagen Diagnostic Kit) 0 mg IM STAT PRN; Protocol PRN Reason: Hypoglycemia Protocol Heparin Sodium (Porcine) (Heparin) 1,000 units IVP TTS [facility] Last Admin: 09/14/17 14:59 Dose: 1,000 units Aztreonam 1 gm/ Sodium (Chloride) 100 mls @ 100 mls/hr IVPB DAILY [facility] PRN Reason: Protocol Last Admin: 09/15/17 10:06 Dose: 100 mls/hr Dextrose (Dextrose 5% In Water 1000 Ml) 1,000 mls @ 0 mls/hr IV .Q0M PRN; Protocol; Per Protocol PRN Reason: Hypoglycemia Protocol Insulin Aspart (Novolog) 0 unit SC Q6 [facility] PRN Reason: Protocol Last Admin: 09/16/17 06:57 Dose: 6 unit Insulin Glargine (Lantus) 10 unit SC HS [facility] Last Admin: 09/16/17 00:21 Dose: 10 unit Metoprolol Tartrate (Lopressor) 25 mg PO BID [facility] Last Admin: 09/15/17 18:58 Dose: 25 mg Midodrine (Proamatine) 10 mg PO TTS [facility] Midodrine (Proamatine) 10 mg PO TTS [facility] Last Admin: 09/14/17 17:22 Dose: 10 mg Pantoprazole Sodium (Protonix Ec Tab) 40 mg PO DAILY [facility] Paricalcitol (Zemplar) 2 mcg IV TTS [facility] Last Admin: 09/14/17 14:43 Dose: 2 mcg Rosuvastatin Calcium (Crestor) 5 mg PO HS [facility] Last Admin: 09/15/17 22:32 Dose: 5 mg Sennosides (Senokot Tab) 8.6 mg NG DAILY [facility] Last Admin: 09/15/17 10:06 Dose: 8.6 mg Sevelamer Carbonate (Renvela) 800 mg PO TIDCC [facility] Last Admin: 09/16/17 09:57 Dose: Not Given Vitamin B Complex/Vit C/Folic Acid (Nephro-Kamron) 1 tab PO 0800 [facility] Last Admin: 09/16/17 09:57 Dose: Not Given - Labs Labs: 09/16/17 06:51 09/16/17 06:51 PT 21.0 SECONDS (9.7-12.2) H 09/16/17 06:51 INR 1.8 09/16/17 06:51 APTT 29 SECONDS (21-34) 09/12/17 08:24 - Constitutional Appears: Non-toxic, Chronically Ill - Head Exam Head Exam: ATRAUMATIC, NORMAL INSPECTION, NORMOCEPHALIC - Eye Exam Eye Exam: EOMI, Normal appearance - ENT Exam ENT Exam: Mucous Membranes Moist - Respiratory Exam Additional comments: Decreased resp sounds. Rhonchi diffusely. - Cardiovascular Exam Cardiovascular Exam: RRR. absent: JVD - GI/Abdominal Exam GI & Abdominal Exam: Soft. absent: Distended, Firm, Guarding, Rigid, Tenderness - Extremities Exam Additional comments: No palpable thrill appreciated at L AVF - Neurological Exam Neurological Exam: Awake. absent: Alert, Oriented x3 Assessment and Plan - Assessment and Plan (Free Text) Assessment: 76yo F with Thrombosed Left AVF Plan: - OR cancelled today due to patient condition - Delayed procedure until patients mental status and respiratory status improves - Medical maximization Further recs as per Dr. Devi Villalpando PGY1 surgery pager: [phone]
[2017-09-16] MEDS: Pantoprazole 40 mg EC Tab PO SCH (11:45)
--- NOTE | 2017-09-16 13:04 | CP.PCM.PN ---
Subjective - Date & Time of Evaluation Date of Evaluation: 09/16/17 Time of Evaluation: 13:02 - Subjective Subjective: Nephrology Consultation: Assessment: stable CKD stage 5 (N18.5) with hyperkalemia, acidosis now has ESRD on HD via permacath TTS pulm edema, CHF, NSTEMI, pleural effusions, pneumonia AMS, hyperglycemia s/p cardiac arrest, shock liver, A fib Diabetic chronic Kidney Disease (E11.22) Hypertensive Chronic Kidney Disease (I12.9) Anemia (D64.9), Hyperphosphatemia (E83.39), Secondary Hyperparathyroidism (E21.1 ), HTN (I12.9), vit D insuff, hx of colon CA, TIA/CVAs Plan HD Tomorrow as ordered as per TTS schedule. maintain hemodynamic stable. Patient not on ACEI/ARB due to low BP. on midodrine prior to HD started iron supplements, MVI, epogen with HD, and zemplar 2 mcg with HD. started on phos binders as renvela Dose meds/antibiotics for ESRD/HD status. Avoid fleets enema/magnesium based laxatives. Avoid nephrotoxins/NSAIDs Glycemic control Further work up/management as per primary team organic lab worker consult for outpatient dialysis placement. Thanks for allowing me to participate in care of your patient. Will follow patient with you. Please call if any Qs. Dr Edson Norton Office: [phone] Chief Complaint; unable to obtain reason for consult: CKD management source of Info: EMR HPI: Pt is a 76 F with hx of diabetes Mellitus ( years), hypertension (years), CHF, TIA, Colon CA, CKD stage 4/5, has matured AVG in left arm presented with complaints of AMS and hyperglycemia as brought by family. now has elevated trop 100, hyperkalemia, AMS and elevated sugar, pulm edema. renal consult for CKD management. pt with AMS unable to provide any hx. ROS: unable to obtain Physical Examination: General Appearance: ill appearing, on O2 Vitals reviewed and noted as below Head; Atraumatic, normocephalic ENT: On O2 EYES: PERRLA Neck; supple no lymphadenopathy, no thyromegaly or bruit Lungs: Normal respiratory rate/effort. Breath sounds bilateral clear anteriorly b/l Heart: normal rate. s1s2 normal. No rub or gallop. A fib Extremities: no edema. No varicose veins. chronic hyperpigmented changes in legs Neurological: Patient is Not communicative verbally Skin: Warm and dry. Normal turgor. No rash. Palpitation: Normal elasticity for age Abdomen: Abdomen is soft. Bowel sounds +. There is no abdominal tenderness, no guarding/rigidity no organomegaly Psych: unable MSK: no joint tenderness or swelling. Digits and nails normal, no deformity : kidney or bladder not palpable Access: Left AVG without bruit. has left permacath Labs/imaging reviewed. Past medical history, past surgical history, family history, social history, allergy reviewed and noted as below Family hx: no hx of CKD. Rest non-contributory Objective - Vital Signs/Intake and Output Vital Signs (last 24 hours): Temp Pulse Resp BP Pulse Ox 98.8 F 103 H 20 107/72 99 09/16/17 07:10 09/16/17 08:00 09/16/17 07:10 09/16/17 07:10 09/16/17 07:10 Intake and Output: 09/16/17 09/16/17 06:59 18:59 Intake Total 420 90 Balance 420 90 - Medications Medications: Current Medications Albumin Human (Albumin Human 25% (12.5 Gm/50 Ml)) 25 gm IV TTS PRN PRN Reason: Other Last Admin: 09/14/17 14:46 Dose: 25 gm Albuterol/Ipratropium (Duoneb 3 Mg/0.5 Mg (3 Ml) Ud) 3 ml INH RQ4 PRN PRN Reason: Shortness of Breath Last Admin: 09/15/17 11:42 Dose: 3 ml Aspirin (Aspirin Chewable) 81 mg PO DAILY [facility] Last Admin: 09/16/17 11:44 Dose: Not Given Dextrose (Dextrose 50% Inj) 0 ml IV STAT PRN; Protocol PRN Reason: Hypoglycemia Protocol Dextrose (Glutose 15) 0 gm PO ONCE PRN; Protocol PRN Reason: Hypoglycemia Protocol Diltiazem HCl (Cardizem) 30 mg PO Q6H [facility] Last Admin: 09/16/17 06:05 Dose: 30 mg Epoetin Alan (Procrit) 10,000 unit IV TTS [facility] Last Admin: 09/14/17 14:44 Dose: 10,000 unit Epoetin Alan (Procrit) 2,000 u IV TTS [facility] Last Admin: 09/14/17 14:44 Dose: 2,000 u Ferrous Gluconate (Fergon) 324 mg PO TID [facility] Last Admin: 09/16/17 11:45 Dose: Not Given Glucagon (Glucagen Diagnostic Kit) 0 mg IM STAT PRN; Protocol PRN Reason: Hypoglycemia Protocol Heparin Sodium (Porcine) (Heparin) 1,000 units IVP TTS [facility] Last Admin: 09/14/17 14:59 Dose: 1,000 units Aztreonam 1 gm/ Sodium (Chloride) 100 mls @ 100 mls/hr IVPB DAILY [facility] PRN Reason: Protocol Last Admin: 09/15/17 10:06 Dose: 100 mls/hr Dextrose (Dextrose 5% In Water 1000 Ml) 1,000 mls @ 0 mls/hr IV .Q0M PRN; Protocol; Per Protocol PRN Reason: Hypoglycemia Protocol Insulin Aspart (Novolog) 0 unit SC Q6 [facility] PRN Reason: Protocol Last Admin: 09/16/17 06:57 Dose: 6 unit Insulin Glargine (Lantus) 10 unit SC [facility] Last Admin: 09/16/17 00:21 Dose: 10 unit Metoprolol Tartrate (Lopressor) 25 mg PO BID [facility] Last Admin: 09/16/17 11:45 Dose: Not Given Midodrine (Proamatine) 10 mg PO TTS [facility] Midodrine (Proamatine) 10 mg PO TTS [facility] Last Admin: 09/14/17 17:22 Dose: 10 mg Pantoprazole Sodium (Protonix Ec Tab) 40 mg PO DAILY [facility] Last Admin: 09/16/17 11:45 Dose: Not Given Paricalcitol (Zemplar) 2 mcg IV TTS [facility] Last Admin: 09/14/17 14:43 Dose: 2 mcg Rosuvastatin Calcium (Crestor) 5 mg PO [facility] Last Admin: 09/15/17 22:32 Dose: 5 mg Sennosides (Senokot Tab) 8.6 mg NG DAILY [facility] Last Admin: 09/16/17 11:45 Dose: Not Given Sevelamer Carbonate (Renvela) 800 mg PO TIDCC [facility] Last Admin: 09/16/17 11:46 Dose: Not Given Vitamin B Complex/Vit C/Folic Acid (Nephro-Kamron) 1 tab PO 0800 [facility] Last Admin: 09/16/17 09:57 Dose: Not Given - Labs Labs: 09/16/17 06:51 09/16/17 06:51 PT 21.0 SECONDS (9.7-12.2) H 09/16/17 06:51 INR 1.8 09/16/17 06:51 APTT 29 SECONDS (21-34) 09/12/17 08:24
[2017-09-16] MEDS: Albuterol-Ipratrop 3 mg / 0.5 (3 ml) UD INH PRN (14:15)
--- NOTE | 2017-09-16 15:59 | CP.PCM.PN ---
Subjective - Date & Time of Evaluation Date of Evaluation: 09/16/17 Time of Evaluation: 11:00 - Subjective Subjective: Does not offer complaints.Afebrile. Objective - Vital Signs/Intake and Output Vital Signs (last 24 hours): Temp Pulse Resp BP Pulse Ox 98.8 F 92 H 20 107/72 99 09/16/17 07:10 09/16/17 14:15 09/16/17 07:10 09/16/17 07:10 09/16/17 07:10 Intake and Output: 09/16/17 09/16/17 06:59 18:59 Intake Total 420 90 Balance 420 90 - Medications Medications: Current Medications Albumin Human (Albumin Human 25% (12.5 Gm/50 Ml)) 25 gm IV TTS PRN PRN Reason: Other Last Admin: 09/14/17 14:46 Dose: 25 gm Albuterol/Ipratropium (Duoneb 3 Mg/0.5 Mg (3 Ml) Ud) 3 ml INH RQ4 PRN PRN Reason: Shortness of Breath Last Admin: 09/16/17 14:15 Dose: 3 ml Aspirin (Aspirin Chewable) 81 mg PO DAILY [facility] Last Admin: 09/16/17 11:44 Dose: Not Given Dextrose (Dextrose 50% Inj) 0 ml IV STAT PRN; Protocol PRN Reason: Hypoglycemia Protocol Dextrose (Glutose 15) 0 gm PO ONCE PRN; Protocol PRN Reason: Hypoglycemia Protocol Diltiazem HCl (Cardizem) 30 mg PO Q6H [facility] Last Admin: 09/16/17 13:45 Dose: 30 mg Epoetin Alan (Procrit) 10,000 unit IV TTS [facility] Last Admin: 09/14/17 14:44 Dose: 10,000 unit Epoetin Alan (Procrit) 2,000 u IV TTS [facility] Last Admin: 09/14/17 14:44 Dose: 2,000 u Ferrous Gluconate (Fergon) 324 mg PO TID [facility] Last Admin: 09/16/17 14:22 Dose: 324 mg Glucagon (Glucagen Diagnostic Kit) 0 mg IM STAT PRN; Protocol PRN Reason: Hypoglycemia Protocol Heparin Sodium (Porcine) (Heparin) 1,000 units IVP TTS [facility] Last Admin: 09/14/17 14:59 Dose: 1,000 units Aztreonam 1 gm/ Sodium (Chloride) 100 mls @ 100 mls/hr IVPB DAILY [facility] PRN Reason: Protocol Last Admin: 09/15/17 10:06 Dose: 100 mls/hr Dextrose (Dextrose 5% In Water 1000 Ml) 1,000 mls @ 0 mls/hr IV .Q0M PRN; Protocol; Per Protocol PRN Reason: Hypoglycemia Protocol Insulin Aspart (Novolog) 0 unit SC Q6 [facility] PRN Reason: Protocol Last Admin: 09/16/17 12:40 Dose: 4 unit Insulin Glargine (Lantus) 10 unit SC HS [facility] Last Admin: 09/16/17 00:21 Dose: 10 unit Metoprolol Tartrate (Lopressor) 25 mg PO BID [facility] Last Admin: 09/16/17 11:45 Dose: Not Given Midodrine (Proamatine) 10 mg PO TTS [facility] Midodrine (Proamatine) 10 mg PO TTS [facility] Last Admin: 09/14/17 17:22 Dose: 10 mg Pantoprazole Sodium (Protonix Ec Tab) 40 mg PO DAILY [facility] Last Admin: 09/16/17 11:45 Dose: Not Given Paricalcitol (Zemplar) 2 mcg IV TTS [facility] Last Admin: 09/14/17 14:43 Dose: 2 mcg Rosuvastatin Calcium (Crestor) 5 mg PO HS [facility] Last Admin: 09/15/17 22:32 Dose: 5 mg Sennosides (Senokot Tab) 8.6 mg NG DAILY [facility] Last Admin: 09/16/17 11:45 Dose: Not Given Sevelamer Carbonate (Renvela) 800 mg PO TIDCC [facility] Last Admin: 09/16/17 11:46 Dose: Not Given Vitamin B Complex/Vit C/Folic Acid (Nephro-Kamron) 1 tab PO 0800 [facility] Last Admin: 09/16/17 09:57 Dose: Not Given Warfarin Sodium (Coumadin) 2.5 mg PO 1800 [facility] Stop: 09/16/17 18:01 - Labs Labs: 09/16/17 06:51 09/16/17 06:51 PT 21.0 SECONDS (9.7-12.2) H 09/16/17 06:51 INR 1.8 09/16/17 06:51 APTT 29 SECONDS (21-34) 09/12/17 08:24 - Constitutional Appears: In Acute Distress, Chronically Ill - Head Exam Head Exam: ATRAUMATIC, NORMAL INSPECTION, NORMOCEPHALIC - Eye Exam Eye Exam: EOMI, Normal appearance, PERRL Pupil Exam: NORMAL ACCOMODATION, PERRL - ENT Exam ENT Exam: Mucous Membranes Moist - Neck Exam Neck Exam: Normal Inspection - Respiratory Exam Respiratory Exam: Decreased Breath Sounds Additional comments: Wet, sounds, excessive sputum production. - Cardiovascular Exam Cardiovascular Exam: Tachycardia - GI/Abdominal Exam GI & Abdominal Exam: Diminished Bowel Sounds Additional comments: NGT in place for feedings - Rectal Exam Rectal Exam: Deferred - Extremities Exam Extremities Exam: Pedal Edema - Back Exam Back Exam: NORMAL INSPECTION - Neurological Exam Neurological Exam: Alert, Altered Neuro motor strength exam: Left Upper Extremity: 2/, Right Upper Extremity: 2/ , Left Lower Extremity: 2/, Right Lower Extremity: 2/ - Psychiatric Exam Psychiatric exam: Flat Affect - Skin Skin Exam: Normal Color Assessment and Plan - Assessment and Plan (Free Text) Assessment: Progress note Patient seen and examined in bed, alert, looking very weak, able to make eye contacts and fallows simple commends. Patient is unable to talk.NGT in for feedings. Patient is on 10 L O2 via non rebrither mask. Patient can not reposition in bed on her own. Breath sounds are diminished, a lot of secretion, patient unable to spit it up. Abdomen flat, hypoactive bowel sounds, anuric, on HD. BP 107/72, HR 92. I spoke to patient face to face, and tried to discuss her condition. basically I told patient that there was no much for us to do any more as her condition become very poor despite all prudent Medical interventions. i asked her to blink her eyes if she would want us to proceed with PEG tube. Patient nodded her head for ' NO answer. Later on I met with patient's daughter Annmarie and son Ayan. I presented them with patient's clinical presentation and elicited their goals for the patient. I reinforced quality of life concerns. Both of then were united in valuing patient's comfort over longevity. They understood the patient was approaching End of her life. I discussed comfort care and offered more information on Hospice care. They stated undestanding. Code status discussed. POLST introduced. Family choose DNR/ DNI. These was discussed to Doctor Chantelle, nursing, and assistant case manager Ángel. Impression * Terminally ill patient with multi organ failure * generalized weakness * Aphasia * Dysphagia * Refuses aggressive interventions * Family supportive of comfort care/ Hospice Suggestion * Would consider comfort care at [place], family prefers [facility] * DNR/DNI Thank you for the consult. palliative care will sign off at this time.
[2017-09-16] MEDS: Aztreonam 1 GM in Sodium Chloride 0.9% 100 ML IVPB SCH (16:32)
--- NOTE | 2017-09-16 20:11 | CP.PCM.PN ---
Subjective - Date & Time of Evaluation Date of Evaluation: 09/16/17 Time of Evaluation: 03:30 - Subjective Subjective: dictated Objective - Vital Signs/Intake and Output Vital Signs (last 24 hours): Temp Pulse Resp BP Pulse Ox 98.6 F 104 H 20 110/55 L 100 09/16/17 15:00 09/16/17 18:08 09/16/17 15:00 09/16/17 18:11 09/16/17 15:00 Intake and Output: 09/16/17 09/17/17 18:59 06:59 Intake Total 90 Balance 90 - Medications Medications: Current Medications Albumin Human (Albumin Human 25% (12.5 Gm/50 Ml)) 25 gm IV TTS PRN PRN Reason: Other Last Admin: 09/14/17 14:46 Dose: 25 gm Albuterol/Ipratropium (Duoneb 3 Mg/0.5 Mg (3 Ml) Ud) 3 ml INH RQ4 PRN PRN Reason: Shortness of Breath Last Admin: 09/16/17 14:15 Dose: 3 ml Aspirin (Aspirin Chewable) 81 mg PO DAILY [facility] Last Admin: 09/16/17 11:44 Dose: Not Given Dextrose (Dextrose 50% Inj) 0 ml IV STAT PRN; Protocol PRN Reason: Hypoglycemia Protocol Dextrose (Glutose 15) 0 gm PO ONCE PRN; Protocol PRN Reason: Hypoglycemia Protocol Diltiazem HCl (Cardizem) 30 mg PO Q6H [facility] Last Admin: 09/16/17 18:12 Dose: 30 mg Epoetin Alan (Procrit) 10,000 unit IV TTS [facility] Last Admin: 09/14/17 14:44 Dose: 10,000 unit Epoetin Alan (Procrit) 2,000 u IV TTS [facility] Last Admin: 09/14/17 14:44 Dose: 2,000 u Ferrous Gluconate (Fergon) 324 mg PO TID [facility] Last Admin: 09/16/17 18:13 Dose: 324 mg Glucagon (Glucagen Diagnostic Kit) 0 mg IM STAT PRN; Protocol PRN Reason: Hypoglycemia Protocol Heparin Sodium (Porcine) (Heparin) 1,000 units IVP TTS [facility] Last Admin: 09/14/17 14:59 Dose: 1,000 units Aztreonam 1 gm/ Sodium (Chloride) 100 mls @ 100 mls/hr IVPB DAILY [facility] PRN Reason: Protocol Last Admin: 09/16/17 16:32 Dose: 100 mls/hr Dextrose (Dextrose 5% In Water 1000 Ml) 1,000 mls @ 0 mls/hr IV .Q0M PRN; Protocol; Per Protocol PRN Reason: Hypoglycemia Protocol Insulin Aspart (Novolog) 0 unit SC Q6 [facility] PRN Reason: Protocol Last Admin: 09/16/17 18:12 Dose: 2 unit Insulin Glargine (Lantus) 10 unit SC [facility] Last Admin: 09/16/17 00:21 Dose: 10 unit Metoprolol Tartrate (Lopressor) 25 mg PO BID [facility] Last Admin: 09/16/17 18:11 Dose: 25 mg Midodrine (Proamatine) 10 mg PO TTS [facility] Midodrine (Proamatine) 10 mg PO TTS [facility] Last Admin: 09/14/17 17:22 Dose: 10 mg Pantoprazole Sodium (Protonix Ec Tab) 40 mg PO DAILY [facility] Last Admin: 09/16/17 11:45 Dose: Not Given Paricalcitol (Zemplar) 2 mcg IV TTS [facility] Last Admin: 09/14/17 14:43 Dose: 2 mcg Rosuvastatin Calcium (Crestor) 5 mg PO HS [facility] Last Admin: 09/15/17 22:32 Dose: 5 mg Sennosides (Senokot Tab) 8.6 mg NG DAILY [facility] Last Admin: 09/16/17 11:45 Dose: Not Given Sevelamer Carbonate (Renvela) 800 mg PO TIDCC [facility] Last Admin: 09/16/17 18:11 Dose: 800 mg Vitamin B Complex/Vit C/Folic Acid (Nephro-Kamron) 1 tab PO 0800 [facility] Last Admin: 09/16/17 09:57 Dose: Not Given - Labs Labs: 09/16/17 06:51 09/16/17 06:51 PT 21.0 SECONDS (9.7-12.2) H 09/16/17 06:51 INR 1.8 09/16/17 06:51 APTT 29 SECONDS (21-34) 09/12/17 08:24
[2017-09-17] MEDS: (Novolog) Insulin Aspart, Recombinant 100 u/ml 10 ml vial SC SCH ×4 (00:07→17:27)
[2017-09-17] MEDS: Albuterol-Ipratrop 3 mg / 0.5 (3 ml) UD INH PRN (01:21)
--- NOTE | 2017-09-17 01:50 | PN ---
DATE: SUBJECTIVE: The patient was unresponsive, on a non-rebreather mask. I saw her after several days. OBJECTIVE: VITAL SIGNS: T-max is 98, heart rate of 103, blood pressure 107/72, respirations are 20. She is on a non-rebreather mask at this time. NECK: Supple. LUNGS: Diffuse rhonchi. HEART: S1, S2 regular. ABDOMEN: Soft, nontender. EXTREMITIES: Venodyne boots on. LABORATORY STUDIES: Labs are noted. Labs show white count is 17, hemoglobin 8.4, hematocrit 26.3, platelet count is 196. Chemistry, she was on dialysis, creatinine is 4.7, BUN is 90. She is DNR and DNI now, and micro pugh, she had Pseudomonas, and she has been on Azactam which is being continued since she had allergy to penicillin, and the patient remains in poor condition with weak heart ____ with Pseudomonas, status post respiratory failure, now on a non-rebreather mask. Karissa Adams MD
--- NOTE | 2017-09-17 07:31 | CP.PCM.PN ---
<Gee Raines - Last Filed: 09/17/17 11:29> Subjective - Date & Time of Evaluation Date of Evaluation: 09/17/17 Time of Evaluation: 07:40 - Subjective Subjective: Medicine progress note for Dr. Lockhart Patient seen and examined. Patient is lethargic and unable to speak. She does respond to very simple questioning. Cannot obtain ROS due to current clinical situation. No acute events overnight per nursing staff. Objective - Vital Signs/Intake and Output Vital Signs (last 24 hours): Temp Pulse Resp BP Pulse Ox 97.4 F L 118 H 20 110/70 97 09/17/17 00:13 09/17/17 04:39 09/17/17 00:13 09/17/17 00:13 09/17/17 00:13 Intake and Output: 09/17/17 09/17/17 06:59 18:59 Intake Total 320 Balance 320 - Medications Medications: Current Medications Albumin Human (Albumin Human 25% (12.5 Gm/50 Ml)) 25 gm IV TTS PRN PRN Reason: Other Last Admin: 09/14/17 14:46 Dose: 25 gm Albuterol/Ipratropium (Duoneb 3 Mg/0.5 Mg (3 Ml) Ud) 3 ml INH RQ4 PRN PRN Reason: Shortness of Breath Last Admin: 09/17/17 01:21 Dose: 3 ml Aspirin (Aspirin Chewable) 81 mg PO DAILY [facility] Last Admin: 09/16/17 11:44 Dose: Not Given Dextrose (Dextrose 50% Inj) 0 ml IV STAT PRN; Protocol PRN Reason: Hypoglycemia Protocol Dextrose (Glutose 15) 0 gm PO ONCE PRN; Protocol PRN Reason: Hypoglycemia Protocol Diltiazem HCl (Cardizem) 30 mg PO Q6H [facility] Last Admin: 09/17/17 06:16 Dose: 30 mg Epoetin Alan (Procrit) 10,000 unit IV TTS [facility] Last Admin: 09/14/17 14:44 Dose: 10,000 unit Epoetin Alan (Procrit) 2,000 u IV TTS [facility] Last Admin: 09/14/17 14:44 Dose: 2,000 u Ferrous Gluconate (Fergon) 324 mg PO TID [facility] Last Admin: 09/16/17 18:13 Dose: 324 mg Glucagon (Glucagen Diagnostic Kit) 0 mg IM STAT PRN; Protocol PRN Reason: Hypoglycemia Protocol Heparin Sodium (Porcine) (Heparin) 1,000 units IVP TTS [facility] Last Admin: 09/14/17 14:59 Dose: 1,000 units Aztreonam 1 gm/ Sodium (Chloride) 100 mls @ 100 mls/hr IVPB DAILY [facility] PRN Reason: Protocol Last Admin: 09/16/17 16:32 Dose: 100 mls/hr Dextrose (Dextrose 5% In Water 1000 Ml) 1,000 mls @ 0 mls/hr IV .Q0M PRN; Protocol; Per Protocol PRN Reason: Hypoglycemia Protocol Insulin Aspart (Novolog) 0 unit SC Q6 [facility] PRN Reason: Protocol Last Admin: 09/17/17 06:23 Dose: 4 unit Insulin Glargine (Lantus) 10 unit SC HS [facility] Last Admin: 09/16/17 21:33 Dose: 10 unit Metoprolol Tartrate (Lopressor) 25 mg PO BID [facility] Last Admin: 09/16/17 18:11 Dose: 25 mg Midodrine (Proamatine) 10 mg PO TTS [facility] Midodrine (Proamatine) 10 mg PO TTS [facility] Last Admin: 09/14/17 17:22 Dose: 10 mg Pantoprazole Sodium (Protonix Ec Tab) 40 mg PO DAILY [facility] Last Admin: 09/16/17 11:45 Dose: Not Given Paricalcitol (Zemplar) 2 mcg IV TTS [facility] Last Admin: 09/14/17 14:43 Dose: 2 mcg Rosuvastatin Calcium (Crestor) 5 mg PO [facility] Last Admin: 09/16/17 21:31 Dose: 5 mg Sennosides (Senokot Tab) 8.6 mg NG DAILY [facility] Last Admin: 09/16/17 11:45 Dose: Not Given Sevelamer Carbonate (Renvela) 800 mg PO TIDCC [facility] Last Admin: 09/16/17 18:11 Dose: 800 mg Vitamin B Complex/Vit C/Folic Acid (Nephro-Kamron) 1 tab PO 0800 [facility] Last Admin: 09/16/17 09:57 Dose: Not Given - Labs Labs: 09/16/17 06:51 09/16/17 06:51 PT 21.0 SECONDS (9.7-12.2) H 09/16/17 06:51 INR 1.8 09/16/17 06:51 APTT 29 SECONDS (21-34) 09/12/17 08:24 - Additional Findings Additional findings: - Constitutional Appears: No Acute Distress, Chronically Ill - Eye Exam Eye Exam: EOMI, Normal appearance - ENT Exam ENT Exam: Mucous Membranes Moist Additional comments: NGT in place - Respiratory Exam Additional comments: Coarse breath sounds bilaterally with some rales and congestion - Cardiovascular Exam Cardiovascular Exam: Irregular Rhythm, +S1, +S2 - GI/Abdominal Exam GI & Abdominal Exam: Soft, Hypoactive Bowel Sounds. absent: Distended, Guarding , Tenderness - Extremities Exam Additional comments: Evidence of chronic venous stasis Pedal pulses weak - Neurological Exam Neurological Exam: Awake - Skin Skin Exam: Dry, Warm Assessment and Plan - Assessment and Plan (Free Text) Plan: 1. Acute NSTEMI, Asystole ,CPR/Sustained VT Previously on Heparin GGT Cardiology consult, Dr. Houston. Help appreciated Family elected against cardiac catheterization despite the advice of multiple professionals Echo shows EF of 15-20% Cardizem 30 mg PO Q6 Lopressor 25 mg PO BID [facility] 81 mg PO daily Crestor 5 mg HS 2. Respiratory failure, s/p intubation and later extubation Previously intubated in the ICU and now extubated Saturating well on non-rebreather mask 3. Atrial Fibrillation CHADS-VAsc score 8 INR today 2.0 Coumadin 2.5 mg tonight Rate controlled with Lopressor and Cardizem 4. Acute renal failure on chronic renal disease/Now ESRD on HD Nephrology consult, Dr. Hebert, help appreciated Dialysis T,,S Renvela TID On 09/10: L IJ permacath placed and left shiley removed 5. Sepsis Previously on Vancomycin, flagyl, and aztreonam Now currently only on Aztreonam for pseudomonas in the sputum Elevated procalcitonin 6.1 6. Acute systolic heart failure Family refuses cardiac cath. has high risk for arrhythmia and poor prognosis Family aware of her condition ECHO shows EF 15 to 20% 7. Pleural effusion Persistent left loculated pleural effusion 8. Hyperglycemia and uncontrolled DM Aspart sliding scale Lantus 10 units HS 9. Anemia of chronic disease, CKD Procrit T,,S Ferrous gluconate 324 mg TID 10. Prophylaxis Tube feeds through NGT Protonix 40 mg IV daily DVT prophylaxis with Coumadin, currently therapeutic INR. Will administer Coumadin today and recheck tomorrow. Disposition: Family has requested DNR/DNI per palliative. Hospice evaluation was placed. Family wishes for [place] hospice. Follow up with case management team to determine what her insurance will allow. Discussed with Dr. Chantelle Raines PGY-1 <Michael Lockhart - Last Filed: 09/17/17 13:28> Objective - Vital Signs/Intake and Output Vital Signs (last 24 hours): Temp Pulse Resp BP Pulse Ox 96 F L 88 18 90/53 L 100 09/17/17 09:15 09/17/17 09:15 09/17/17 09:20 09/17/17 12:55 09/17/17 09:20 Intake and Output: 09/17/17 09/17/17 06:59 18:59 Intake Total 320 Balance 320 - Medications Medications: Current Medications Albumin Human (Albumin Human 25% (12.5 Gm/50 Ml)) 25 gm IV TTS PRN PRN Reason: Other Last Admin: 09/14/17 14:46 Dose: 25 gm Albuterol/Ipratropium (Duoneb 3 Mg/0.5 Mg (3 Ml) Ud) 3 ml INH RQ4 PRN PRN Reason: Shortness of Breath Last Admin: 09/17/17 01:21 Dose: 3 ml Aspirin (Aspirin Chewable) 81 mg NG DAILY [facility] Dextrose (Dextrose 50% Inj) 0 ml IV STAT PRN; Protocol PRN Reason: Hypoglycemia Protocol Dextrose (Glutose 15) 0 gm PO ONCE PRN; Protocol PRN Reason: Hypoglycemia Protocol Diltiazem HCl (Cardizem) 30 mg NG Q6H [facility] Epoetin Alan (Procrit) 10,000 unit IV TTS [facility] Last Admin: 09/17/17 11:53 Dose: 10,000 unit Epoetin Alan (Procrit) 2,000 u IV TTS [facility] Last Admin: 09/17/17 11:52 Dose: 2,000 u Ferrous Gluconate (Fergon) 324 mg PO TID [facility] Last Admin: 09/17/17 10:30 Dose: Not Given Glucagon (Glucagen Diagnostic Kit) 0 mg IM STAT PRN; Protocol PRN Reason: Hypoglycemia Protocol Heparin Sodium (Porcine) (Heparin) 3,700 units IVP TTS [facility] Stop: 09/28/17 10:01 Last Admin: 09/17/17 12:25 Dose: 3,700 units Aztreonam 1 gm/ Sodium (Chloride) 100 mls @ 100 mls/hr IVPB DAILY [facility] PRN Reason: Protocol Last Admin: 09/16/17 16:32 Dose: 100 mls/hr Dextrose (Dextrose 5% In Water 1000 Ml) 1,000 mls @ 0 mls/hr IV .Q0M PRN; Protocol; Per Protocol PRN Reason: Hypoglycemia Protocol Insulin Aspart (Novolog) 0 unit SC Q6 [facility] PRN Reason: Protocol Last Admin: 09/17/17 12:23 Dose: Not Given Insulin Glargine (Lantus) 10 unit SC HS [facility] Last Admin: 09/16/17 21:33 Dose: 10 unit Metoprolol Tartrate (Lopressor) 25 mg NG BID [facility] Last Admin: 09/17/17 10:30 Dose: Not Given Midodrine (Proamatine) 10 mg NG TTS [facility] Last Admin: 09/17/17 10:06 Dose: 10 mg Pantoprazole Sodium (Protonix Ec Tab) 40 mg PO DAILY [facility] Last Admin: 09/16/17 11:45 Dose: Not Given Paricalcitol (Zemplar) 2 mcg IV TTS [facility] Last Admin: 09/17/17 11:53 Dose: 2 mcg Rosuvastatin Calcium (Crestor) 5 mg NG HS [facility] Sennosides (Senokot Tab) 8.6 mg NG DAILY [facility] Last Admin: 09/16/17 11:45 Dose: Not Given Sevelamer Carbonate (Renvela) 800 mg NG TIDCC [facility] Last Admin: 09/17/17 12:23 Dose: Not Given Vitamin B Complex/Vit C/Folic Acid (Nephro-Kamron) 1 tab NG 0800 [facility] Warfarin Sodium (Coumadin) 2.5 mg NG 1800 [facility] Stop: 09/17/17 18:01 - Labs Labs: 09/17/17 07:19 09/17/17 07:19 PT 23.2 SECONDS (9.7-12.2) H 09/17/17 07:19 INR 2.0 09/17/17 07:19 APTT 29 SECONDS (21-34) 09/12/17 08:24 Attending/Attestation - Attestation I have personally seen and examined this patient.: Yes I have fully participated in the care of the patient.: Yes I have reviewed all pertinent clinical information, including history, physical exam and plan: Yes Notes (Text): 09/17/17 13:25 Medical attending: Patient was seen and examined by me. Agree with the above note by the resident Today we saw patient down at [facility]. As previously mentioned she was only able to raise arms as well as nodd yes or no when we asked her very basic things. Also as mentioned previously - the patient is now DNR and DNI. Family is considering hospice/palliative care. She remains on the non-rebreather mask due to poor respirations and infection. In the mean time we will continue with the IV abx for infection, anticoagulation from atrial fibrillation, HD. thank you Michael Lockhart
[2017-09-17 07:34] LABS: PROTHROMBIN TIME 23.2 SECONDS (9.7-12.2)
[2017-09-17 07:46] LABS: BASO % 0.2 % (0.0-2.0); EOS # 0.1 K/uL (0.0-0.7); EOS % 0.4 % (0.0-4.0); LYMPH # 0.3 K/uL (1.0-4.3); LYMPH % 2.4 % (20.0-40.0); MEAN CELL VOLUME 87.4 fL (81.0-99.0); MEAN CORPUSCULAR HEMOGLOBIN 27.9 pg (27.0-31.0); MEAN PLATELET VOLUME 9.7 fL (7.2-11.7); MONO # 0.6 K/uL (0.0-0.8); MONO % 4.1 % (0.0-10.0); NEUT # 13.2 K/uL (1.8-7.0); NEUT % 92.9 % (50.0-75.0); NRBC % 0.1 % (0.0-2.0); PLATELET COUNT 177 K/uL (130-400); RBC 2.86 Mil/uL (3.80-5.20); RED CELL DISTRIBUTION WIDTH 18.2 % (11.5-14.5); WHITE BLOOD COUNT 14.3 K/uL (4.8-10.8)
[2017-09-17 08:22] LABS: ALB/GLOB RATIO 0.9 (1.0-2.1); ALBUMIN 2.8 g/dL (3.5-5.0); CALCIUM 8.5 mg/dl (8.6-10.4)
[2017-09-17 08:48] LABS: BANDS 1 % (0-2); EOSINOPHIL 1 % (0-4); LYMPHOCYTE 2 % (20-40); MONOCYTE 1 % (0-10); NEUTROPHIL 95 % (50-75); TOTAL CELLS COUNTED 100
[2017-09-17 08:49] LABS: ANISOCYTOSIS SLIGHT; HYPOCHROMIC SLIGHT; PLATELET ESTIMATE NORMAL (NORMAL); POLYCHROMIC SLIGHT
[2017-09-17 08:50] LABS: OVALOCYTES SLIGHT; TARGET CELLS SLIGHT
--- NOTE | 2017-09-17 11:20 | CP.PCM.PN ---
Subjective - Date & Time of Evaluation Date of Evaluation: 09/17/17 Time of Evaluation: 11:19 - Subjective Subjective: Nephrology Consultation: Assessment: stable CKD stage 5 (N18.5) with hyperkalemia, acidosis now has ESRD on HD via permacath TTS pulm edema, CHF, NSTEMI, pleural effusions, pneumonia AMS, hyperglycemia s/p cardiac arrest, shock liver, A fib Diabetic chronic Kidney Disease (E11.22) Hypertensive Chronic Kidney Disease (I12.9) Anemia (D64.9), Hyperphosphatemia (E83.39), Secondary Hyperparathyroidism (E21.1 ), HTN (I12.9), vit D insuff, hx of colon CA, TIA/CVAs Plan HD Tomorrow as ordered as per TTS schedule. maintain hemodynamic stable. Patient not on ACEI/ARB due to low BP. on midodrine prior to HD started iron supplements, MVI, epogen with HD, and zemplar 2 mcg with HD. started on phos binders as renvela Dose meds/antibiotics for ESRD/HD status. Avoid fleets enema/magnesium based laxatives. Avoid nephrotoxins/NSAIDs Glycemic control Further work up/management as per primary team pastoral worker consult for outpatient dialysis placement. palliative care consult noted. Hospice being discussed. Thanks for allowing me to participate in care of your patient. Will follow patient with you. Please call if any Qs. Dr Edson Norton Office: [phone] Chief Complaint; unable to obtain reason for consult: CKD management source of Info: EMR HPI: Pt is a 76 F with hx of diabetes Mellitus ( years), hypertension (years), CHF, TIA, Colon CA, CKD stage 4/5, has matured AVG in left arm presented with complaints of AMS and hyperglycemia as brought by family. now has elevated trop 100, hyperkalemia, AMS and elevated sugar, pulm edema. renal consult for CKD management. pt with AMS unable to provide any hx. ROS: unable to obtain Physical Examination: seen on HD General Appearance: ill appearing, on O2 Vitals reviewed and noted as below Head; Atraumatic, normocephalic ENT: On O2 EYES: PERRLA Neck; supple no lymphadenopathy, no thyromegaly or bruit Lungs: Normal respiratory rate/effort. Breath sounds bilateral rales anteriorly b/l Heart: normal rate. s1s2 normal. No rub or gallop. A fib Extremities: no edema. No varicose veins. chronic hyperpigmented changes in legs Neurological: Patient is Not communicative verbally Skin: Warm and dry. Normal turgor. No rash. Palpitation: Normal elasticity for age Abdomen: Abdomen is soft. Bowel sounds +. There is no abdominal tenderness, no guarding/rigidity no organomegaly Psych: unable MSK: no joint tenderness or swelling. Digits and nails normal, no deformity : kidney or bladder not palpable Access: Left AVG without bruit. has left permacath Labs/imaging reviewed. Past medical history, past surgical history, family history, social history, allergy reviewed and noted as below Family hx: no hx of CKD. Rest non-contributory Objective - Vital Signs/Intake and Output Vital Signs (last 24 hours): Temp Pulse Resp BP Pulse Ox 96 F L 88 18 109/71 100 09/17/17 09:15 09/17/17 09:15 09/17/17 09:20 09/17/17 10:20 09/17/17 09:20 Intake and Output: 09/17/17 09/17/17 06:59 18:59 Intake Total 320 Balance 320 - Medications Medications: Current Medications Albumin Human (Albumin Human 25% (12.5 Gm/50 Ml)) 25 gm IV TTS PRN PRN Reason: Other Last Admin: 09/14/17 14:46 Dose: 25 gm Albuterol/Ipratropium (Duoneb 3 Mg/0.5 Mg (3 Ml) Ud) 3 ml INH RQ4 PRN PRN Reason: Shortness of Breath Last Admin: 09/17/17 01:21 Dose: 3 ml Aspirin (Aspirin Chewable) 81 mg NG DAILY [facility] Dextrose (Dextrose 50% Inj) 0 ml IV STAT PRN; Protocol PRN Reason: Hypoglycemia Protocol Dextrose (Glutose 15) 0 gm PO ONCE PRN; Protocol PRN Reason: Hypoglycemia Protocol Diltiazem HCl (Cardizem) 30 mg NG Q6H [facility] Epoetin Alan (Procrit) 10,000 unit IV TTS [facility] Last Admin: 09/14/17 14:44 Dose: 10,000 unit Epoetin Alan (Procrit) 2,000 u IV TTS [facility] Last Admin: 09/14/17 14:44 Dose: 2,000 u Ferrous Gluconate (Fergon) 324 mg PO TID [facility] Last Admin: 09/16/17 18:13 Dose: 324 mg Glucagon (Glucagen Diagnostic Kit) 0 mg IM STAT PRN; Protocol PRN Reason: Hypoglycemia Protocol Aztreonam 1 gm/ Sodium (Chloride) 100 mls @ 100 mls/hr IVPB DAILY [facility] PRN Reason: Protocol Last Admin: 09/16/17 16:32 Dose: 100 mls/hr Dextrose (Dextrose 5% In Water 1000 Ml) 1,000 mls @ 0 mls/hr IV .Q0M PRN; Protocol; Per Protocol PRN Reason: Hypoglycemia Protocol Insulin Aspart (Novolog) 0 unit SC Q6 [facility] PRN Reason: Protocol Last Admin: 09/17/17 06:23 Dose: 4 unit Insulin Glargine (Lantus) 10 unit SC HS [facility] Last Admin: 09/16/17 21:33 Dose: 10 unit Metoprolol Tartrate (Lopressor) 25 mg NG BID [facility] Midodrine (Proamatine) 10 mg NG TTS [facility] Last Admin: 09/17/17 10:06 Dose: 10 mg Pantoprazole Sodium (Protonix Ec Tab) 40 mg PO DAILY [facility] Last Admin: 09/16/17 11:45 Dose: Not Given Paricalcitol (Zemplar) 2 mcg IV TTS [facility] Last Admin: 09/14/17 14:43 Dose: 2 mcg Rosuvastatin Calcium (Crestor) 5 mg NG HS [facility] Sennosides (Senokot Tab) 8.6 mg NG DAILY [facility] Last Admin: 09/16/17 11:45 Dose: Not Given Sevelamer Carbonate (Renvela) 800 mg NG TIDCC [facility] Vitamin B Complex/Vit C/Folic Acid (Nephro-Kamron) 1 tab NG 0800 [facility] - Labs Labs: 09/17/17 07:19 09/17/17 07:19 PT 23.2 SECONDS (9.7-12.2) H 09/17/17 07:19 INR 2.0 09/17/17 07:19 APTT 29 SECONDS (21-34) 09/12/17 08:24
[2017-09-17] MEDS: Epoetin Alfa Dialysis 2000 U/ML Inj IV SCH (11:52)
[2017-09-17] MEDS: Epoetin Alfa 10,000 unit/ml Dialysis IV SCH (11:53)
[2017-09-17] MEDS: Paricalcitol 2 mcg/ml Inj IV SCH (11:53)
[2017-09-17] MEDS: Pantoprazole 40 mg EC Tab PO SCH (14:06)
[2017-09-17] MEDS: Aztreonam 1 GM in Sodium Chloride 0.9% 100 ML IVPB SCH (14:07)
--- NOTE | 2017-09-17 15:22 | RAD ---
HISTORY: reassess volume overload, pneumonia COMPARISON: 09/11/2017 FINDINGS: LUNGS: Progressive consolidative change, collapse right lower lobe. Stable findings left lung. PLEURA: Persistent left pleural effusion CARDIOVASCULAR: No radiographic findings to suggest acute or significant cardiovascular disease. Venous access catheter in stable, satisfactory position. OSSEOUS STRUCTURES: No significant abnormalities. VISUALIZED UPPER ABDOMEN: Nasogastric tube courses through the esophagus into a decompressed stomach in satisfactory position. OTHER FINDINGS: None. IMPRESSION: New collapse, volume loss right lower lobe. Otherwise no interval change.
[2017-09-17] MEDS: (Lantus) Insulin Glargine, Recombinant SC SCH (21:34)
--- NOTE | 2017-09-17 22:58 | CP.PCM.PN ---
Subjective - Date & Time of Evaluation Date of Evaluation: 09/17/17 Time of Evaluation: 03:00 - Subjective Subjective: dictated Objective - Vital Signs/Intake and Output Vital Signs (last 24 hours): Temp Pulse Resp BP Pulse Ox 97.6 F 103 H 20 110/65 93 L 09/17/17 15:53 09/17/17 16:33 09/17/17 15:53 09/17/17 17:24 09/17/17 15:53 Intake and Output: 09/17/17 09/18/17 18:59 06:59 Intake Total 760 520 Balance 760 520 - Medications Medications: Current Medications Albumin Human (Albumin Human 25% (12.5 Gm/50 Ml)) 25 gm IV TTS PRN PRN Reason: Other Last Admin: 09/14/17 14:46 Dose: 25 gm Albuterol/Ipratropium (Duoneb 3 Mg/0.5 Mg (3 Ml) Ud) 3 ml INH RQ4 PRN PRN Reason: Shortness of Breath Last Admin: 09/17/17 01:21 Dose: 3 ml Aspirin (Aspirin Chewable) 81 mg NG DAILY [facility] Last Admin: 09/17/17 14:06 Dose: 81 mg Dextrose (Dextrose 50% Inj) 0 ml IV STAT PRN; Protocol PRN Reason: Hypoglycemia Protocol Dextrose (Glutose 15) 0 gm PO ONCE PRN; Protocol PRN Reason: Hypoglycemia Protocol Diltiazem HCl (Cardizem) 30 mg NG Q6H [facility] Last Admin: 09/17/17 19:00 Dose: 30 mg Epoetin Alan (Procrit) 10,000 unit IV TTS [facility] Last Admin: 09/17/17 11:53 Dose: 10,000 unit Epoetin Alan (Procrit) 2,000 u IV TTS [facility] Last Admin: 09/17/17 11:52 Dose: 2,000 u Ferrous Gluconate (Fergon) 324 mg PO TID [facility] Last Admin: 09/17/17 18:00 Dose: 324 mg Glucagon (Glucagen Diagnostic Kit) 0 mg IM STAT PRN; Protocol PRN Reason: Hypoglycemia Protocol Heparin Sodium (Porcine) (Heparin) 3,700 units IVP TTS [facility] Stop: 09/28/17 10:01 Last Admin: 09/17/17 12:25 Dose: 3,700 units Aztreonam 1 gm/ Sodium (Chloride) 100 mls @ 100 mls/hr IVPB DAILY [facility] PRN Reason: Protocol Last Admin: 09/17/17 14:07 Dose: 100 mls/hr Dextrose (Dextrose 5% In Water 1000 Ml) 1,000 mls @ 0 mls/hr IV .Q0M PRN; Protocol; Per Protocol PRN Reason: Hypoglycemia Protocol Insulin Aspart (Novolog) 0 unit SC Q6 [facility] PRN Reason: Protocol Last Admin: 09/17/17 17:27 Dose: 4 unit Insulin Glargine (Lantus) 10 unit SC HS [facility] Last Admin: 09/17/17 21:34 Dose: 10 unit Metoprolol Tartrate (Lopressor) 25 mg NG BID [facility] Last Admin: 09/17/17 17:24 Dose: 25 mg Midodrine (Proamatine) 10 mg NG TTS [facility] Last Admin: 09/17/17 10:06 Dose: 10 mg Pantoprazole Sodium (Protonix Ec Tab) 40 mg PO DAILY [facility] Last Admin: 09/17/17 14:06 Dose: 40 mg Paricalcitol (Zemplar) 2 mcg IV TTS [facility] Last Admin: 09/17/17 11:53 Dose: 2 mcg Rosuvastatin Calcium (Crestor) 5 mg NG HS [facility] Last Admin: 09/17/17 21:35 Dose: 5 mg Sennosides (Senokot Tab) 8.6 mg NG DAILY [facility] Last Admin: 09/17/17 14:07 Dose: 8.6 mg Sevelamer Carbonate (Renvela) 800 mg NG TIDCC [facility] Last Admin: 09/17/17 16:27 Dose: 800 mg Vitamin B Complex/Vit C/Folic Acid (Nephro-Kamron) 1 tab NG 0800 [facility] - Labs Labs: 09/17/17 07:19 09/17/17 07:19 PT 23.2 SECONDS (9.7-12.2) H 09/17/17 07:19 INR 2.0 09/17/17 07:19 APTT 29 SECONDS (21-34) 09/12/17 08:24
[2017-09-18] MEDS: (Novolog) Insulin Aspart, Recombinant 100 u/ml 10 ml vial SC SCH ×4 (00:30→18:47)
--- NOTE | 2017-09-18 04:23 | PN ---
DATE: 09/17/2017 SUBJECTIVE: The patient has been very lethargic and the nurse is telling me that her fistula is not functioning, they have been using the hemodialysis catheter. She remains lethargic and unresponsive and on nonrebreather mask. PHYSICAL EXAMINATION: VITAL SIGNS: T-max is 97.6, pulse of 84, blood pressure 102/53, respirations are 20. GENERAL: She is not on any sedation. NECK: Supple. LUNGS: Clear. No crackles or rales present. HEART: S1 and S2 is present. She has a triple lumen as a dialysis catheter on the left chest wall. ABDOMEN: Soft, flabby, non tender. EXTREMITIES: Have foot protectors present. LABORATORY DATA: Her white count is 14.3 today, hemoglobin 8, hematocrit 25, and platelet count is 177. INR is 2. Her BUN is 107 and creatinine is 5.5, she is a dialysis patient. ASSESSMENT: She has altered mental status, which is new and is this stroke or is this related to her poor heart, cardiomyopathy or she has chest x-ray shows new collapse volume loss right lower lobe, otherwise no interval change so has she collapsed her lungs, should need pulmonary evaluation to followup and she is on Azactam, will continue with Azactam, I renewed it yesterday and that she had pseudomonas in the sputum before and no MRSA was detected hence we will hold off on the vancomycin. Prognosis still remains poor and will follow up. Karissa Adams MD
--- NOTE | 2017-09-18 07:24 | CP.PCM.PN ---
<Gee Raines - Last Filed: 09/18/17 10:21> Subjective - Date & Time of Evaluation Date of Evaluation: 09/18/17 Time of Evaluation: 07:10 - Subjective Subjective: Medicine progress note for Dr. Lockhart Patient seen and examined. Patient is lethargic and unable to speak. She does respond to very simple questioning. Cannot obtain ROS due to current clinical situation. No acute events overnight. Objective - Vital Signs/Intake and Output Vital Signs (last 24 hours): Temp Pulse Resp BP Pulse Ox 97.3 F L 74 20 111/56 L 95 09/17/17 23:25 09/18/17 06:26 09/17/17 23:25 09/18/17 06:26 09/17/17 23:25 Intake and Output: 09/18/17 09/18/17 06:59 18:59 Intake Total 520 Balance 520 - Medications Medications: Current Medications Albumin Human (Albumin Human 25% (12.5 Gm/50 Ml)) 25 gm IV TTS PRN PRN Reason: Other Last Admin: 09/14/17 14:46 Dose: 25 gm Albuterol/Ipratropium (Duoneb 3 Mg/0.5 Mg (3 Ml) Ud) 3 ml INH RQ4 PRN PRN Reason: Shortness of Breath Last Admin: 09/17/17 01:21 Dose: 3 ml Aspirin (Aspirin Chewable) 81 mg NG DAILY [facility] Last Admin: 09/17/17 14:06 Dose: 81 mg Dextrose (Dextrose 50% Inj) 0 ml IV STAT PRN; Protocol PRN Reason: Hypoglycemia Protocol Dextrose (Glutose 15) 0 gm PO ONCE PRN; Protocol PRN Reason: Hypoglycemia Protocol Diltiazem HCl (Cardizem) 30 mg NG Q6H [facility] Last Admin: 09/18/17 06:28 Dose: 30 mg Epoetin Alan (Procrit) 10,000 unit IV TTS [facility] Last Admin: 09/17/17 11:53 Dose: 10,000 unit Epoetin Alan (Procrit) 2,000 u IV TTS [facility] Last Admin: 09/17/17 11:52 Dose: 2,000 u Ferrous Gluconate (Fergon) 324 mg PO TID [facility] Last Admin: 09/17/17 18:00 Dose: 324 mg Glucagon (Glucagen Diagnostic Kit) 0 mg IM STAT PRN; Protocol PRN Reason: Hypoglycemia Protocol Heparin Sodium (Porcine) (Heparin) 3,700 units IVP TTS [facility] Stop: 09/28/17 10:01 Last Admin: 09/17/17 12:25 Dose: 3,700 units Aztreonam 1 gm/ Sodium (Chloride) 100 mls @ 100 mls/hr IVPB DAILY [facility] PRN Reason: Protocol Last Admin: 09/17/17 14:07 Dose: 100 mls/hr Dextrose (Dextrose 5% In Water 1000 Ml) 1,000 mls @ 0 mls/hr IV .Q0M PRN; Protocol; Per Protocol PRN Reason: Hypoglycemia Protocol Insulin Aspart (Novolog) 0 unit SC Q6 [facility] PRN Reason: Protocol Last Admin: 09/17/17 17:27 Dose: 4 unit Insulin Glargine (Lantus) 10 unit SC HS [facility] Last Admin: 09/17/17 21:34 Dose: 10 unit Metoprolol Tartrate (Lopressor) 25 mg NG BID [facility] Last Admin: 09/17/17 17:24 Dose: 25 mg Midodrine (Proamatine) 10 mg NG TTS [facility] Last Admin: 09/17/17 10:06 Dose: 10 mg Pantoprazole Sodium (Protonix Ec Tab) 40 mg PO DAILY [facility] Last Admin: 09/17/17 14:06 Dose: 40 mg Paricalcitol (Zemplar) 2 mcg IV TTS [facility] Last Admin: 09/17/17 11:53 Dose: 2 mcg Rosuvastatin Calcium (Crestor) 5 mg NG HS [facility] Last Admin: 09/17/17 21:35 Dose: 5 mg Sennosides (Senokot Tab) 8.6 mg NG DAILY [facility] Last Admin: 09/17/17 14:07 Dose: 8.6 mg Sevelamer Carbonate (Renvela) 800 mg NG TIDCC [facility] Last Admin: 09/17/17 16:27 Dose: 800 mg Vitamin B Complex/Vit C/Folic Acid (Nephro-Kamron) 1 tab NG 0800 [facility] - Labs Labs: 09/17/17 07:19 09/17/17 07:19 PT 23.2 SECONDS (9.7-12.2) H 09/17/17 07:19 INR 2.0 09/17/17 07:19 APTT 29 SECONDS (21-34) 09/12/17 08:24 - Additional Findings Additional findings: - Constitutional Appears: No Acute Distress, Chronically Ill - Eye Exam Eye Exam: EOMI, Normal appearance - ENT Exam ENT Exam: Mucous Membranes Moist Additional comments: NGT in place - Respiratory Exam Additional comments: Coarse breath sounds bilaterally with some rales and congestion - Cardiovascular Exam Cardiovascular Exam: Irregular Rhythm, +S1, +S2 - GI/Abdominal Exam GI & Abdominal Exam: Soft, Hypoactive Bowel Sounds. absent: Distended, Guarding , Tenderness - Extremities Exam Additional comments: Evidence of chronic venous stasis Pedal pulses weak - Neurological Exam Neurological Exam: Awake - Skin Skin Exam: Dry, Warm Assessment and Plan - Assessment and Plan (Free Text) Plan: 1. Acute NSTEMI, Asystole ,CPR/Sustained VT Previously on Heparin GGT Cardiology consult, Dr. Houston. Help appreciated Family elected against cardiac catheterization despite the advice of multiple professionals Echo shows EF of 15-20% Cardizem 30 mg PO Q6 Lopressor 25 mg PO BID A[facility] 81 mg PO daily Crestor 5 mg HS 2. Respiratory failure, s/p intubation and later extubation Previously intubated in the ICU and now extubated Saturating well on non-rebreather mask CXR on 09/17/17 shows new collapse, volume loss of right lower lobe 3. Atrial Fibrillation CHADS-VAsc score 8 INR today 2.0 Coumadin 2.5 mg tonight Rate controlled with Lopressor and Cardizem 4. Acute renal failure on chronic renal disease/Now ESRD on HD Nephrology consult, Dr. Hebert, help appreciated Dialysis T,,S Renvela TID On 09/10: L IJ permacath placed and left shiley removed 5. Sepsis Previously on Vancomycin, flagyl, and aztreonam Now currently only on Aztreonam for pseudomonas in the sputum Elevated procalcitonin 6.1 6. Acute systolic heart failure Family refuses cardiac cath. has high risk for arrhythmia and poor prognosis Family aware of her condition ECHO shows EF 15 to 20% 7. Pleural effusion Persistent left loculated pleural effusion 8. Hyperglycemia and uncontrolled DM Aspart sliding scale Lantus 10 units HS 9. Anemia of chronic disease, CKD Procrit T,,S Ferrous gluconate 324 mg TID 10. Prophylaxis Tube feeds through NGT Protonix 40 mg IV daily DVT prophylaxis with Coumadin, currently therapeutic INR. Will administer Coumadin today and recheck tomorrow. Disposition: Family has requested DNR/DNI per palliative. Hospice evaluation was placed. Family wishes for [place] hosp[place]. However, since the patient does not have a secondary insurance, family will need to decide if they wish to pay for part of the cost for the [place] [facility] out of pocket. Discussed with Dr. Chantelle Raines PGY-1 <Michael Lockhart H - Last Filed: 09/18/17 11:46> Objective - Vital Signs/Intake and Output Vital Signs (last 24 hours): Temp Pulse Resp BP Pulse Ox 97.6 F 86 20 105/68 94 L 09/18/17 07:25 09/18/17 07:51 09/18/17 07:25 09/18/17 09:09 09/18/17 07:25 Intake and Output: 09/18/17 09/18/17 06:59 18:59 Intake Total 520 Balance 520 - Medications Medications: Current Medications Albumin Human (Albumin Human 25% (12.5 Gm/50 Ml)) 25 gm IV TTS PRN PRN Reason: Other Last Admin: 09/14/17 14:46 Dose: 25 gm Albuterol/Ipratropium (Duoneb 3 Mg/0.5 Mg (3 Ml) Ud) 3 ml INH RQ4 PRN PRN Reason: Shortness of Breath Last Admin: 09/17/17 01:21 Dose: 3 ml Aspirin (Aspirin Chewable) 81 mg NG DAILY [facility] Last Admin: 09/18/17 09:08 Dose: 81 mg Dextrose (Dextrose 50% Inj) 0 ml IV STAT PRN; Protocol PRN Reason: Hypoglycemia Protocol Dextrose (Glutose 15) 0 gm PO ONCE PRN; Protocol PRN Reason: Hypoglycemia Protocol Diltiazem HCl (Cardizem) 30 mg NG Q6H [facility] Last Admin: 09/18/17 06:28 Dose: 30 mg Epoetin Alan (Procrit) 10,000 unit IV TTS [facility] Last Admin: 09/17/17 11:53 Dose: 10,000 unit Epoetin Alan (Procrit) 4,000 unit IV TTS [facility] Ferrous Gluconate (Fergon) 324 mg PO TID [facility] Last Admin: 09/18/17 09:08 Dose: 324 mg Glucagon (Glucagen Diagnostic Kit) 0 mg IM STAT PRN; Protocol PRN Reason: Hypoglycemia Protocol Heparin Sodium (Porcine) (Heparin) 3,700 units IVP TTS [facility] Stop: 09/28/17 10:01 Last Admin: 09/17/17 12:25 Dose: 3,700 units Aztreonam 1 gm/ Sodium (Chloride) 100 mls @ 100 mls/hr IVPB DAILY [facility] PRN Reason: Protocol Last Admin: 09/18/17 09:07 Dose: 100 mls/hr Dextrose (Dextrose 5% In Water 1000 Ml) 1,000 mls @ 0 mls/hr IV .Q0M PRN; Protocol; Per Protocol PRN Reason: Hypoglycemia Protocol Insulin Aspart (Novolog) 0 unit SC Q6 [facility] PRN Reason: Protocol Last Admin: 09/18/17 07:39 Dose: 6 unit Insulin Glargine (Lantus) 10 unit SC HS [facility] Last Admin: 09/17/17 21:34 Dose: 10 unit Metoprolol Tartrate (Lopressor) 25 mg NG BID [facility] Last Admin: 09/18/17 09:09 Dose: 25 mg Midodrine (Proamatine) 10 mg NG TTS [facility] Last Admin: 09/17/17 10:06 Dose: 10 mg Pantoprazole Sodium (Protonix Ec Tab) 40 mg PO DAILY [facility] Last Admin: 09/18/17 09:08 Dose: 40 mg Paricalcitol (Zemplar) 2 mcg IV TTS [facility] Last Admin: 09/17/17 11:53 Dose: 2 mcg Rosuvastatin Calcium (Crestor) 5 mg NG HS [facility] Last Admin: 09/17/17 21:35 Dose: 5 mg Sennosides (Senokot Tab) 8.6 mg NG DAILY [facility] Last Admin: 09/18/17 09:08 Dose: 8.6 mg Sevelamer Carbonate (Renvela) 800 mg NG TIDCC [facility] Last Admin: 09/18/17 08:37 Dose: 800 mg Vitamin B Complex/Vit C/Folic Acid (Nephro-Kamron) 1 tab NG 0800 [facility] Last Admin: 09/18/17 08:37 Dose: 1 tab - Labs Labs: 09/18/17 07:14 09/18/17 07:14 PT 23.4 SECONDS (9.7-12.2) H 09/18/17 07:14 INR 2.0 09/18/17 07:14 APTT 29 SECONDS (21-34) 09/12/17 08:24 Attending/Attestation - Attestation I have personally seen and examined this patient.: Yes I have fully participated in the care of the patient.: Yes I have reviewed all pertinent clinical information, including history, physical exam and plan: Yes Notes (Text): 09/18/17 11:43 Medical attending: Patient was seen and examined by me, I saw the patient together with nuclear medical tech. Agrees the above note by the resident. Yesterday she was having hemodialysis. Today when we saw her her situation is unchanged from before. She remains nonverbal, she is responsive to some very simple commands stimuli. She is able to raise her arms up command. As mentioned previously the family is exploring hospice/comfort care decisions and where to go to. She is now DNR and DNI. I spoke with the patient's power of real estate attorney, her name is Annmarie Stauffer. And I updated her with regards to the situation with the patient. We might give her blood transfusion tomorrow we'll have to see how she's doing, and depending on how her chest x-rays looking how she is breathing we may have to go to [facility] tomorrow. The chest x-rays as I explained to the power of real estate attorney haven't been looking Furthermore will continue with IV antibiotics as well. From my discussion with the family the trying to see if she could go to [facility] for comfort care/hospice care Thank you very much, Michael Lockhart
[2017-09-18 07:30] LABS: PROTHROMBIN TIME 23.4 SECONDS (9.7-12.2)
[2017-09-18 07:43] LABS: BASO % 0.4 % (0.0-2.0); EOS % 0.3 % (0.0-4.0); HEMOGLOBIN 7.8 g/dL (11.0-16.0); LYMPH # 0.4 K/uL (1.0-4.3); LYMPH % 3.5 % (20.0-40.0); MEAN CELL VOLUME 86.9 fL (81.0-99.0); MEAN CORPUSCULAR HEMOGLOBIN 27.7 pg (27.0-31.0); MEAN CORPUSCULAR HGB CONC 31.8 g/dL (33.0-37.0); MEAN PLATELET VOLUME 9.7 fL (7.2-11.7); MONO # 0.5 K/uL (0.0-0.8); MONO % 4.4 % (0.0-10.0); NEUT # 10.7 K/uL (1.8-7.0); NEUT % 91.4 % (50.0-75.0); NRBC % 0.3 % (0.0-2.0); PLATELET COUNT 170 K/uL (130-400); RED CELL DISTRIBUTION WIDTH 18.2 % (11.5-14.5); WHITE BLOOD COUNT 11.7 K/uL (4.8-10.8)
[2017-09-18 08:20] LABS: ALB/GLOB RATIO 0.8 (1.0-2.1); ALBUMIN 2.8 g/dL (3.5-5.0); CALCIUM 8.2 mg/dl (8.6-10.4)
[2017-09-18] MEDS: Multivitamin Vitamin B Complex (Nephro-Vite) Tab NG SCH (08:37)
[2017-09-18 08:59] LABS: ANISOCYTOSIS SLIGHT; HYPOCHROMIC SLIGHT; LYMPHOCYTE 2 % (20-40); MONOCYTE 2 % (0-10); NEUTROPHIL 96 % (50-75); PLATELET ESTIMATE NORMAL (NORMAL); POLYCHROMIC SLIGHT; TARGET CELLS SLIGHT; TOTAL CELLS COUNTED 100
[2017-09-18 09:00] LABS: OVALOCYTES SLIGHT
[2017-09-18] MEDS: Aztreonam 1 GM in Sodium Chloride 0.9% 100 ML IVPB SCH (09:07)
[2017-09-18] MEDS: Pantoprazole 40 mg EC Tab PO SCH (09:08)
--- NOTE | 2017-09-18 13:26 | CP.PCM.PN ---
Subjective - Date & Time of Evaluation Date of Evaluation: 09/18/17 Time of Evaluation: 13:26 - Subjective Subjective: Nephrology Consultation Note: Assessment: stable CKD stage 5 (N18.5) with hyperkalemia, acidosis now has ESRD on HD via permacath TTS pulm edema, CHF, NSTEMI, pleural effusions, pneumonia AMS, hyperglycemia s/p cardiac arrest, shock liver, A fib Diabetic chronic Kidney Disease (E11.22) Hypertensive Chronic Kidney Disease (I12.9) Anemia (D64.9), Hyperphosphatemia (E83.39), Secondary Hyperparathyroidism (E21.1 ), HTN (I12.9), vit D insuff, hx of colon CA, TIA/CVAs Plan HD Tomorrow as ordered as per TTS schedule. maintain hemodynamic stable. Patient not on ACEI/ARB due to low BP. on midodrine prior to HD started iron supplements, MVI, epogen with HD, and zemplar 2 mcg with HD. started on phos binders as renvela Dose meds/antibiotics for ESRD/HD status. Avoid fleets enema/magnesium based laxatives. Avoid nephrotoxins/NSAIDs Glycemic control Further work up/management as per primary team health service worker consult for outpatient dialysis placement. palliative care consult noted. Hospice being discussed. Thanks for allowing me to participate in care of your patient. Will follow patient with you. Please call if any Qs. Dr Edson Norton Office: [phone] Chief Complaint; unable to obtain reason for consult: CKD management source of Info: EMR HPI: Pt is a 76 F with hx of diabetes Mellitus ( years), hypertension (years), CHF, TIA, Colon CA, CKD stage 4/5, has matured AVG in left arm presented with complaints of AMS and hyperglycemia as brought by family. now has elevated trop 100, hyperkalemia, AMS and elevated sugar, pulm edema. renal consult for CKD management. pt with AMS unable to provide any hx. ROS: unable to obtain Physical Examination: seen on HD General Appearance: ill appearing, on O2 NRB Vitals reviewed and noted as below Head; Atraumatic, normocephalic ENT: On O2 EYES: PERRLA Neck; supple no lymphadenopathy, no thyromegaly or bruit Lungs: Normal respiratory rate/effort. Breath sounds bilateral rales anteriorly b/l Heart: normal rate. s1s2 normal. No rub or gallop. A fib Extremities: no edema. No varicose veins. chronic hyperpigmented changes in legs Neurological: Patient is Not communicative verbally Skin: Warm and dry. Normal turgor. No rash. Palpitation: Normal elasticity for age Abdomen: Abdomen is soft. Bowel sounds +. There is no abdominal tenderness, no guarding/rigidity no organomegaly Psych: unable MSK: no joint tenderness or swelling. Digits and nails normal, no deformity : kidney or bladder not palpable Access: Left AVG without bruit. has left permacath Labs/imaging reviewed. Past medical history, past surgical history, family history, social history, allergy reviewed and noted as below Family hx: no hx of CKD. Rest non-contributory Objective - Vital Signs/Intake and Output Vital Signs (last 24 hours): Temp Pulse Resp BP Pulse Ox 97.6 F 86 20 105/68 94 L 09/18/17 07:25 09/18/17 07:51 09/18/17 07:25 09/18/17 09:09 09/18/17 07:25 Intake and Output: 09/18/17 09/18/17 06:59 18:59 Intake Total 520 Balance 520 - Medications Medications: Current Medications Albumin Human (Albumin Human 25% (12.5 Gm/50 Ml)) 25 gm IV TTS PRN PRN Reason: Other Last Admin: 09/14/17 14:46 Dose: 25 gm Albuterol/Ipratropium (Duoneb 3 Mg/0.5 Mg (3 Ml) Ud) 3 ml INH RQ4 PRN PRN Reason: Shortness of Breath Last Admin: 09/17/17 01:21 Dose: 3 ml Aspirin (Aspirin Chewable) 81 mg NG DAILY [facility] Last Admin: 09/18/17 09:08 Dose: 81 mg Dextrose (Dextrose 50% Inj) 0 ml IV STAT PRN; Protocol PRN Reason: Hypoglycemia Protocol Dextrose (Glutose 15) 0 gm PO ONCE PRN; Protocol PRN Reason: Hypoglycemia Protocol Diltiazem HCl (Cardizem) 30 mg NG Q6H [facility] Last Admin: 09/18/17 06:28 Dose: 30 mg Epoetin Alan (Procrit) 10,000 unit IV TTS [facility] Last Admin: 09/17/17 11:53 Dose: 10,000 unit Epoetin Alan (Procrit) 4,000 unit IV TTS [facility] Ferrous Gluconate (Fergon) 324 mg PO TID [facility] Last Admin: 09/18/17 09:08 Dose: 324 mg Glucagon (Glucagen Diagnostic Kit) 0 mg IM STAT PRN; Protocol PRN Reason: Hypoglycemia Protocol Heparin Sodium (Porcine) (Heparin) 3,700 units IVP TTS [facility] Stop: 09/28/17 10:01 Last Admin: 09/17/17 12:25 Dose: 3,700 units Aztreonam 1 gm/ Sodium (Chloride) 100 mls @ 100 mls/hr IVPB DAILY [facility] PRN Reason: Protocol Last Admin: 09/18/17 09:07 Dose: 100 mls/hr Dextrose (Dextrose 5% In Water 1000 Ml) 1,000 mls @ 0 mls/hr IV .Q0M PRN; Protocol; Per Protocol PRN Reason: Hypoglycemia Protocol Insulin Aspart (Novolog) 0 unit SC Q6 [facility] PRN Reason: Protocol Last Admin: 09/18/17 13:00 Dose: Not Given Insulin Glargine (Lantus) 10 unit SC [facility] Last Admin: 09/17/17 21:34 Dose: 10 unit Metoprolol Tartrate (Lopressor) 25 mg NG BID [facility] Last Admin: 09/18/17 09:09 Dose: 25 mg Midodrine (Proamatine) 10 mg NG TTS [facility] Last Admin: 09/17/17 10:06 Dose: 10 mg Pantoprazole Sodium (Protonix Ec Tab) 40 mg PO DAILY [facility] Last Admin: 09/18/17 09:08 Dose: 40 mg Paricalcitol (Zemplar) 2 mcg IV TTS [facility] Last Admin: 09/17/17 11:53 Dose: 2 mcg Rosuvastatin Calcium (Crestor) 5 mg NG HS [facility] Last Admin: 09/17/17 21:35 Dose: 5 mg Sennosides (Senokot Tab) 8.6 mg NG DAILY [facility] Last Admin: 09/18/17 09:08 Dose: 8.6 mg Sevelamer Carbonate (Renvela) 800 mg NG TIDCC [facility] Last Admin: 09/18/17 08:37 Dose: 800 mg Vitamin B Complex/Vit C/Folic Acid (Nephro-Kamron) 1 tab NG 0800 [facility] Last Admin: 09/18/17 08:37 Dose: 1 tab - Labs Labs: 09/18/17 07:14 09/18/17 07:14 PT 23.4 SECONDS (9.7-12.2) H 09/18/17 07:14 INR 2.0 09/18/17 07:14 APTT 29 SECONDS (21-34) 09/12/17 08:24
[2017-09-18] MEDS ORDERED: Heparin25000 units/250ml 1/2NS 25,000 UNITS/250 ML BAG IV PRN (13:55)
[2017-09-18] MEDS ORDERED: Dextrose 5%/0.45% NS 1,000 ML IV SCH (17:30)
[2017-09-18] MEDS: (Lantus) Insulin Glargine, Recombinant SC SCH ×2 (21:25→23:27)
[2017-09-19] MEDS: (Novolog) Insulin Aspart, Recombinant 100 u/ml 10 ml vial SC SCH ×3 (00:28→18:57)
[2017-09-19] MEDS: Heparin25000 units/250ml 1/2NS 25,000 UNITS/250 ML BAG IV PRN (00:57)
[2017-09-19 07:02] LABS: BASO % 0.5 % (0.0-2.0); EOS % 0.3 % (0.0-4.0); HEMOGLOBIN 7.8 g/dL (11.0-16.0); LYMPH # 0.5 K/uL (1.0-4.3); LYMPH % 4.2 % (20.0-40.0); MEAN CORPUSCULAR HEMOGLOBIN 27.6 pg (27.0-31.0); MEAN CORPUSCULAR HGB CONC 31.7 g/dL (33.0-37.0); MEAN PLATELET VOLUME 9.9 fL (7.2-11.7); MONO # 0.5 K/uL (0.0-0.8); MONO % 4.3 % (0.0-10.0); NEUT % 90.7 % (50.0-75.0); NRBC % 0.4 % (0.0-2.0); PLATELET COUNT 148 K/uL (130-400); RBC 2.82 Mil/uL (3.80-5.20); RED CELL DISTRIBUTION WIDTH 17.8 % (11.5-14.5)
[2017-09-19 07:07] LABS: INR 1.9; PROTHROMBIN TIME 21.8 SECONDS (9.7-12.2)
--- NOTE | 2017-09-19 07:17 | CP.PCM.PN ---
<Gee Raines - Last Filed: 09/19/17 14:56> Subjective - Date & Time of Evaluation Date of Evaluation: 09/19/17 Time of Evaluation: 07:00 - Subjective Subjective: Medicine progress note for Dr. Lockhart Patient seen and examined. Patient is unable to speak due to weakness and lethargy. Could not obtain ROS. Per nursing staff, patient's heart rate is constantly fluctuating. Patient is for dialysis later today. Objective - Vital Signs/Intake and Output Vital Signs (last 24 hours): Temp Pulse Resp BP Pulse Ox 98.2 F 54 L 18 111/58 L 94 L 09/18/17 23:13 09/18/17 23:13 09/18/17 23:13 09/18/17 23:13 09/18/17 23:13 Intake and Output: 09/19/17 09/19/17 06:59 18:59 Intake Total 25 Balance 25 - Medications Medications: Current Medications Albumin Human (Albumin Human 25% (12.5 Gm/50 Ml)) 25 gm IV TTS PRN PRN Reason: Other Last Admin: 09/14/17 14:46 Dose: 25 gm Albuterol/Ipratropium (Duoneb 3 Mg/0.5 Mg (3 Ml) Ud) 3 ml INH RQ4 PRN PRN Reason: Shortness of Breath Last Admin: 09/17/17 01:21 Dose: 3 ml Aspirin (Aspirin Chewable) 81 mg NG DAILY [facility] Last Admin: 09/18/17 09:08 Dose: 81 mg Dextrose (Dextrose 50% Inj) 0 ml IV STAT PRN; Protocol PRN Reason: Hypoglycemia Protocol Dextrose (Glutose 15) 0 gm PO ONCE PRN; Protocol PRN Reason: Hypoglycemia Protocol Diltiazem HCl (Cardizem) 30 mg NG Q6H [facility] Last Admin: 09/19/17 01:00 Dose: Not Given Epoetin Alan (Procrit) 10,000 unit IV TTS [facility] Last Admin: 09/17/17 11:53 Dose: 10,000 unit Epoetin Alan (Procrit) 4,000 unit IV TTS [facility] Ferrous Gluconate (Fergon) 324 mg PO TID [facility] Last Admin: 09/18/17 18:46 Dose: Not Given Glucagon (Glucagen Diagnostic Kit) 0 mg IM STAT PRN; Protocol PRN Reason: Hypoglycemia Protocol Heparin Sodium (Porcine) (Heparin) 3,700 units IVP TTS [facility] Stop: 09/28/17 10:01 Last Admin: 09/17/17 12:25 Dose: 3,700 units Aztreonam 1 gm/ Sodium (Chloride) 100 mls @ 100 mls/hr IVPB DAILY [facility] PRN Reason: Protocol Last Admin: 09/18/17 09:07 Dose: 100 mls/hr Dextrose (Dextrose 5% In Water 1000 Ml) 1,000 mls @ 0 mls/hr IV .Q0M PRN; Protocol; Per Protocol PRN Reason: Hypoglycemia Protocol Dextrose/Sodium Chloride (Dextrose 5%/0.45% Ns 1000 Ml) 1,000 mls @ 40 mls/hr IV .Q24H [facility] Last Admin: 09/18/17 17:30 Dose: 40 mls/hr Heparin Sodium/Sodium Chloride (Heparin 40115 Units/250ml 1/2 Normal Saline) 25 ,000 units in 250 mls @ 7.908 mls/hr IV .Q24H PRN; Protocol; 12 UNITS/KG/HR PRN Reason: PROTOCOL Last Admin: 09/19/17 00:57 Dose: 12 units/kg/hr, 7.908 mls/hr Insulin Aspart (Novolog) 0 unit SC Q6 [facility] PRN Reason: Protocol Last Admin: 09/19/17 06:05 Dose: Not Given Insulin Glargine (Lantus) 10 unit SC HS [facility] Last Admin: 09/18/17 23:27 Dose: 10 unit Metoprolol Tartrate (Lopressor) 25 mg NG BID [facility] Last Admin: 09/18/17 18:47 Dose: Not Given Midodrine (Proamatine) 10 mg NG TTS [facility] Last Admin: 09/17/17 10:06 Dose: 10 mg Pantoprazole Sodium (Protonix Inj) 40 mg IVP DAILY [facility] Paricalcitol (Zemplar) 2 mcg IV TTS [facility] Last Admin: 09/17/17 11:53 Dose: 2 mcg Rosuvastatin Calcium (Crestor) 5 mg NG HS [facility] Last Admin: 09/18/17 21:24 Dose: Not Given Sennosides (Senokot Tab) 8.6 mg NG DAILY [facility] Last Admin: 09/18/17 09:08 Dose: 8.6 mg Sevelamer Carbonate (Renvela) 800 mg NG TIDCC [facility] Last Admin: 09/18/17 18:47 Dose: Not Given Vitamin B Complex/Vit C/Folic Acid (Nephro-Kamron) 1 tab NG 0800 [facility] Last Admin: 09/18/17 08:37 Dose: 1 tab - Labs Labs: 09/19/17 06:54 09/18/17 07:14 PT 23.4 SECONDS (9.7-12.2) H 09/18/17 07:14 INR 2.0 09/18/17 07:14 APTT 38 SECONDS (21-34) H D 09/18/17 23:37 - Additional Findings Additional findings: - Constitutional Appears: No Acute Distress, Chronically Ill - Eye Exam Eye Exam: EOMI, Normal appearance - ENT Exam ENT Exam: Mucous Membranes Moist - Respiratory Exam Additional comments: Coarse breath sounds bilaterally with some rales and congestion - Cardiovascular Exam Cardiovascular Exam: Irregular Rhythm, +S1, +S2 - GI/Abdominal Exam GI & Abdominal Exam: Soft, Hypoactive Bowel Sounds. absent: Distended, Guarding , Tenderness - Extremities Exam Additional comments: Evidence of chronic venous stasis Pedal pulses weak - Neurological Exam Neurological Exam: Awake - Skin Skin Exam: Dry, Warm Assessment and Plan - Assessment and Plan (Free Text) Plan: 1. Acute NSTEMI, Asystole ,CPR/Sustained VT Previously on Heparin GGT Cardiology consult, Dr. Houston. Help appreciated Family elected against cardiac catheterization despite the advice of multiple professionals Echo shows EF of 15-20% Cardizem 30 mg PO Q6--cannot give because of lack of NGT Lopressor 25 mg PO BID--cannot give because of lack of NGT ASA 81 mg PO daily--cannot give because of lack of NGT Crestor 5 mg HS--cannot give because of lack of NGT 2. Respiratory failure, s/p intubation and later extubation Previously intubated in the ICU and now extubated Saturating well on non-rebreather mask CXR on 09/17/17 shows new collapse, volume loss of right lower lobe 3. Atrial Fibrillation CHADS-VAsc score 8 Continue Heparin drip Rate controlled with one dose of IV Lopressor 5 mg and IV digoxin 0.125 mg 4. Acute renal failure on chronic renal disease/Now ESRD on HD Nephrology consult, Dr. Hebert, help appreciated Dialysis ,,S Renvela TID--cannot give because of lack of NGT On 09/10: L IJ permacath placed and left shiley removed 5. Sepsis Previously on Vancomycin, flagyl, and aztreonam Now currently only on Aztreonam for pseudomonas in the sputum Elevated procalcitonin 6.1 6. Acute systolic heart failure Family refuses cardiac cath. has high risk for arrhythmia and poor prognosis Family aware of her condition ECHO shows EF 15 to 20% 7. Pleural effusion Persistent left loculated pleural effusion 8. Hyperglycemia and uncontrolled DM Aspart sliding scale Lantus 10 units HS 9. Anemia of chronic disease, CKD Procrit T,,S Ferrous gluconate 324 mg TID 10. Prophylaxis TPN ordered for nutrition Protonix 40 mg IV daily DVT prophylaxis: on Heparin drip. Disposition: Family has requested DNR/DNI per palliative. Hospice evaluation was placed. Family wishes for [place] hospice. However, since the patient does not have a secondary insurance, family will need to decide if they wish to pay for part of the cost for the half-way out of pocket. We are still awaiting the family's decision at this time. Discussed with Dr. Chantelle Raines PGY-1 <Michael Lockhart H - Last Filed: 09/19/17 15:19> Objective - Vital Signs/Intake and Output Vital Signs (last 24 hours): Temp Pulse Resp BP Pulse Ox 98.1 F 86 20 107/77 100 09/19/17 14:00 09/19/17 14:00 09/19/17 14:00 09/19/17 15:00 09/19/17 14:00 Intake and Output: 09/19/17 09/19/17 06:59 18:59 Intake Total 25 Balance 25 - Medications Medications: Current Medications Albumin Human (Albumin Human 25% (12.5 Gm/50 Ml)) 25 gm IV TTS PRN PRN Reason: Other Last Admin: 09/14/17 14:46 Dose: 25 gm Albuterol/Ipratropium (Duoneb 3 Mg/0.5 Mg (3 Ml) Ud) 3 ml INH RQ4 PRN PRN Reason: Shortness of Breath Last Admin: 09/17/17 01:21 Dose: 3 ml Aspirin (Aspirin Chewable) 81 mg NG DAILY [facility] Last Admin: 09/19/17 09:42 Dose: Not Given Dextrose (Dextrose 50% Inj) 0 ml IV STAT PRN; Protocol PRN Reason: Hypoglycemia Protocol Dextrose (Glutose 15) 0 gm PO ONCE PRN; Protocol PRN Reason: Hypoglycemia Protocol Diltiazem HCl (Cardizem) 30 mg NG Q6H [facility] Last Admin: 09/19/17 07:38 Dose: Not Given Epoetin Alan (Procrit) 10,000 unit IV TTS [facility] Last Admin: 09/19/17 14:47 Dose: 10,000 unit Epoetin Alan (Procrit) 4,000 unit IV TTS [facility] Last Admin: 09/19/17 14:48 Dose: 4,000 unit Ferrous Gluconate (Fergon) 324 mg PO TID [facility] Last Admin: 09/19/17 09:42 Dose: Not Given Glucagon (Glucagen Diagnostic Kit) 0 mg IM STAT PRN; Protocol PRN Reason: Hypoglycemia Protocol Heparin Sodium (Porcine) (Heparin) 3,700 units IVP TTS [facility] Stop: 09/28/17 10:01 Last Admin: 09/19/17 14:46 Dose: 3,700 units Aztreonam 1 gm/ Sodium (Chloride) 100 mls @ 100 mls/hr IVPB DAILY [facility] PRN Reason: Protocol Last Admin: 09/19/17 09:42 Dose: 100 mls/hr Dextrose (Dextrose 5% In Water 1000 Ml) 1,000 mls @ 0 mls/hr IV .Q0M PRN; Protocol; Per Protocol PRN Reason: Hypoglycemia Protocol Dextrose/Sodium Chloride (Dextrose 5%/0.45% Ns 1000 Ml) 1,000 mls @ 40 mls/hr IV .Q24H [facility] Last Admin: 09/18/17 17:30 Dose: 40 mls/hr Heparin Sodium/Sodium Chloride (Heparin 91931 Units/250ml 1/2 Normal Saline) 25 ,000 units in 250 mls @ 7.908 mls/hr IV .Q24H PRN; Protocol; 12 UNITS/KG/HR PRN Reason: PROTOCOL Last Admin: 09/19/17 00:57 Dose: 12 units/kg/hr, 7.908 mls/hr Multivitamins/Vitamin C 10 ml/Heparin Sodium (Porcine) 1, 000 units/ Amino Acids /Electrolytes/Dextrose 1,011 mls @ 42 mls/hr IV .Q24H [facility] Stop: 09/20/17 17:59 Fat Emulsion Intravenous (Intralipid 20%) 250 mls @ 42 mls/hr IV QOD [facility] Insulin Aspart (Novolog) 0 unit SC Q6 [facility] PRN Reason: Protocol Last Admin: 09/19/17 06:05 Dose: Not Given Insulin Glargine (Lantus) 10 unit SC HS [facility] Last Admin: 09/18/17 23:27 Dose: 10 unit Metoprolol Tartrate (Lopressor) 25 mg NG BID [facility] Last Admin: 09/19/17 09:42 Dose: Not Given Midodrine (Proamatine) 10 mg NG TTS [facility] Last Admin: 09/17/17 10:06 Dose: 10 mg Pantoprazole Sodium (Protonix Inj) 40 mg IVP DAILY [facility] Last Admin: 09/19/17 09:42 Dose: 40 mg Paricalcitol (Zemplar) 2 mcg IV TTS [facility] Last Admin: 09/19/17 14:48 Dose: 2 mcg Rosuvastatin Calcium (Crestor) 5 mg NG HS [facility] Last Admin: 09/18/17 21:24 Dose: Not Given Sennosides (Senokot Tab) 8.6 mg NG DAILY [facility] Last Admin: 09/18/17 09:08 Dose: 8.6 mg Sevelamer Carbonate (Renvela) 800 mg NG TIDCC [facility] Last Admin: 09/19/17 07:40 Dose: Not Given Vitamin B Complex/Vit C/Folic Acid (Nephro-Kamron) 1 tab NG 0800 [facility] Last Admin: 09/19/17 07:40 Dose: Not Given - Labs Labs: 09/19/17 06:54 09/19/17 06:54 PT 21.8 SECONDS (9.7-12.2) H 09/19/17 06:54 INR 1.9 09/19/17 06:54 APTT 45 SECONDS (21-34) H 09/19/17 14:11 Attending/Attestation - Attestation I have personally seen and examined this patient.: Yes I have fully participated in the care of the patient.: Yes I have reviewed all pertinent clinical information, including history, physical exam and plan: Yes Notes (Text): 09/19/17 15:18 Medical attending: Patient was seen and examined by me, agrees the above note by the phlebotomist medical lab assistant. As mentioned above in the resident note, yesterday the NG tube ceased to function. It had to be removed and I attempted to place and a new NG tube. I was not successful she simply fought way too much and it caused her a lot of distress and discomfort. After 2 attempts I did not have the heart try again. Unfortunately this does complicate the picture even further. Were not able to give the patient oral Cardizem for rate control. This morning the resident gave IV digoxin I agree with this. Also were not able to give any oral anticoagulation so were currently having the patient on a heparin drip. Again the family is trying to figure out hospice care. I understand from the caseworkers that they're hoping to go to [facility] however there is some financial issues that they have to try to resolve Thank you very much, Michael Lockhart
[2017-09-19] MEDS ORDERED: Digoxin 500 mcg/2ml (0.5 mg/2ml) Inj IVP ONE (07:34)
[2017-09-19 07:38] LABS: ALB/GLOB RATIO 0.8 (1.0-2.1); ALBUMIN 2.7 g/dL (3.5-5.0); CALCIUM 8.3 mg/dl (8.6-10.4)
[2017-09-19] MEDS: Multivitamin Vitamin B Complex (Nephro-Vite) Tab NG SCH (07:40)
[2017-09-19 08:03] VITALS: PULSE 128
[2017-09-19 08:25] LABS: ANISOCYTOSIS SLIGHT; BANDS 4 % (0-2); LYMPHOCYTE 2 % (20-40); MONOCYTE 3 % (0-10); NEUTROPHIL 91 % (50-75); PLATELET ESTIMATE NORMAL (NORMAL); TOTAL CELLS COUNTED 100
[2017-09-19 08:26] LABS: HYPOCHROMIC MODERATE; POLYCHROMIC SLIGHT; TARGET CELLS SLIGHT
[2017-09-19] MEDS: Aztreonam 1 GM in Sodium Chloride 0.9% 100 ML IVPB SCH (09:42)
[2017-09-19] MEDS ORDERED: EPOETIN ALFA 4,000 UNIT/ML ML Dialysis IV SCH (10:00)
[2017-09-19] MEDS ORDERED: Metoprolol 1 mg/ml Inj IVP ONE (13:00)
[2017-09-19] MEDS: Epoetin Alfa 10,000 unit/ml Dialysis IV SCH (14:47)
[2017-09-19] MEDS: Paricalcitol 2 mcg/ml Inj IV SCH (14:48)
--- NOTE | 2017-09-19 15:51 | CP.PCM.PN ---
Subjective - Date & Time of Evaluation Date of Evaluation: 09/19/17 Time of Evaluation: 15:50 - Subjective Subjective: Nephrology Consultation Note: Assessment: stable CKD stage 5 (N18.5) with hyperkalemia, acidosis now has ESRD on HD via permacath TTS pulm edema, CHF, NSTEMI, pleural effusions, pneumonia AMS, hyperglycemia s/p cardiac arrest, shock liver, A fib Diabetic chronic Kidney Disease (E11.22) Hypertensive Chronic Kidney Disease (I12.9) Anemia (D64.9), Hyperphosphatemia (E83.39), Secondary Hyperparathyroidism (E21.1 ), HTN (I12.9), vit D insuff, hx of colon CA, TIA/CVAs Plan HD Today as ordered as per TTS schedule. maintain hemodynamic stable. Patient not on ACEI/ARB due to low BP. on midodrine prior to HD started iron supplements, MVI, epogen with HD, and zemplar 2 mcg with HD. started on phos binders as renvela Dose meds/antibiotics for ESRD/HD status. Avoid fleets enema/magnesium based laxatives. Avoid nephrotoxins/NSAIDs Glycemic control Further work up/management as per primary team aniline press worker consult for outpatient dialysis placement. palliative care consult noted. Hospice being discussed. Thanks for allowing me to participate in care of your patient. Will follow patient with you. Please call if any Qs. d/w son Dr Edson Norton Office: [phone] Chief Complaint; unable to obtain reason for consult: CKD management source of Info: EMR HPI: Pt is a 76 F with hx of diabetes Mellitus ( years), hypertension (years), CHF, TIA, Colon CA, CKD stage 4/5, has matured AVG in left arm presented with complaints of AMS and hyperglycemia as brought by family. now has elevated trop 100, hyperkalemia, AMS and elevated sugar, pulm edema. renal consult for CKD management. pt with AMS unable to provide any hx. ROS: unable to obtain Physical Examination: seen on HD General Appearance: ill appearing, on O2 NRB Vitals reviewed and noted as below Head; Atraumatic, normocephalic ENT: On O2 EYES: PERRLA Neck; supple no lymphadenopathy, no thyromegaly or bruit Lungs: Normal respiratory rate/effort. Breath sounds bilateral rales anteriorly b/l Heart: normal rate. s1s2 normal. No rub or gallop. A fib Extremities: no edema. No varicose veins. chronic hyperpigmented changes in legs Neurological: Patient is Not communicative verbally Skin: Warm and dry. Normal turgor. No rash. Palpitation: Normal elasticity for age Abdomen: Abdomen is soft. Bowel sounds +. There is no abdominal tenderness, no guarding/rigidity no organomegaly Psych: unable MSK: no joint tenderness or swelling. Digits and nails normal, no deformity : kidney or bladder not palpable Access: Left AVG without bruit. has left permacath Labs/imaging reviewed. Past medical history, past surgical history, family history, social history, allergy reviewed and noted as below Family hx: no hx of CKD. Rest non-contributory Objective - Vital Signs/Intake and Output Vital Signs (last 24 hours): Temp Pulse Resp BP Pulse Ox 98.1 F 86 20 112/72 100 09/19/17 14:00 09/19/17 14:00 09/19/17 14:00 09/19/17 15:30 09/19/17 14:00 Intake and Output: 09/19/17 09/19/17 06:59 18:59 Intake Total 25 Balance 25 - Medications Medications: Current Medications Albumin Human (Albumin Human 25% (12.5 Gm/50 Ml)) 25 gm IV TTS PRN PRN Reason: Other Last Admin: 09/14/17 14:46 Dose: 25 gm Albuterol/Ipratropium (Duoneb 3 Mg/0.5 Mg (3 Ml) Ud) 3 ml INH RQ4 PRN PRN Reason: Shortness of Breath Last Admin: 09/17/17 01:21 Dose: 3 ml Aspirin (Aspirin Chewable) 81 mg NG DAILY [facility] Last Admin: 09/19/17 09:42 Dose: Not Given Dextrose (Dextrose 50% Inj) 0 ml IV STAT PRN; Protocol PRN Reason: Hypoglycemia Protocol Dextrose (Glutose 15) 0 gm PO ONCE PRN; Protocol PRN Reason: Hypoglycemia Protocol Diltiazem HCl (Cardizem) 30 mg NG Q6H [facility] Last Admin: 09/19/17 07:38 Dose: Not Given Epoetin Alan (Procrit) 10,000 unit IV TTS [facility] Last Admin: 09/19/17 14:47 Dose: 10,000 unit Epoetin Alan (Procrit) 4,000 unit IV TTS [facility] Last Admin: 09/19/17 14:48 Dose: 4,000 unit Ferrous Gluconate (Fergon) 324 mg PO TID [facility] Last Admin: 09/19/17 09:42 Dose: Not Given Glucagon (Glucagen Diagnostic Kit) 0 mg IM STAT PRN; Protocol PRN Reason: Hypoglycemia Protocol Heparin Sodium (Porcine) (Heparin) 3,700 units IVP TTS [facility] Stop: 09/28/17 10:01 Last Admin: 09/19/17 14:46 Dose: 3,700 units Aztreonam 1 gm/ Sodium (Chloride) 100 mls @ 100 mls/hr IVPB DAILY [facility] PRN Reason: Protocol Last Admin: 09/19/17 09:42 Dose: 100 mls/hr Dextrose (Dextrose 5% In Water 1000 Ml) 1,000 mls @ 0 mls/hr IV .Q0M PRN; Protocol; Per Protocol PRN Reason: Hypoglycemia Protocol Heparin Sodium/Sodium Chloride (Heparin 15805 Units/250ml 1/2 Normal Saline) 25 ,000 units in 250 mls @ 7.908 mls/hr IV .Q24H PRN; Protocol; 12 UNITS/KG/HR PRN Reason: PROTOCOL Last Admin: 09/19/17 00:57 Dose: 12 units/kg/hr, 7.908 mls/hr Multivitamins/Vitamin C 10 ml/Heparin Sodium (Porcine) 1, 000 units/ Amino Acids /Electrolytes/Dextrose 1,011 mls @ 42 mls/hr IV .Q24H ONE Stop: 09/20/17 17:59 Fat Emulsion Intravenous (Intralipid 20%) 250 mls @ 42 mls/hr IV QOD [facility] Insulin Aspart (Novolog) 0 unit SC Q6 [facility] PRN Reason: Protocol Last Admin: 09/19/17 06:05 Dose: Not Given Insulin Glargine (Lantus) 10 unit SC HS [facility] Last Admin: 09/18/17 23:27 Dose: 10 unit Metoprolol Tartrate (Lopressor) 25 mg NG BID [facility] Last Admin: 09/19/17 09:42 Dose: Not Given Midodrine (Proamatine) 10 mg NG TTS [facility] Last Admin: 09/17/17 10:06 Dose: 10 mg Pantoprazole Sodium (Protonix Inj) 40 mg IVP DAILY [facility] Last Admin: 09/19/17 09:42 Dose: 40 mg Paricalcitol (Zemplar) 2 mcg IV TTS [facility] Last Admin: 09/19/17 14:48 Dose: 2 mcg Rosuvastatin Calcium (Crestor) 5 mg NG HS [facility] Last Admin: 09/18/17 21:24 Dose: Not Given Sennosides (Senokot Tab) 8.6 mg NG DAILY [facility] Last Admin: 09/18/17 09:08 Dose: 8.6 mg Sevelamer Carbonate (Renvela) 800 mg NG TIDCC [facility] Last Admin: 09/19/17 07:40 Dose: Not Given Vitamin B Complex/Vit C/Folic Acid (Nephro-Kamron) 1 tab NG 0800 [facility] Last Admin: 09/19/17 07:40 Dose: Not Given - Labs Labs: 09/19/17 06:54 09/19/17 06:54 PT 21.8 SECONDS (9.7-12.2) H 09/19/17 06:54 INR 1.9 09/19/17 06:54 APTT 45 SECONDS (21-34) H 09/19/17 14:11
[2017-09-19] MEDS ORDERED: TPN IV ONE (18:00)
[2017-09-19] MEDS: (Lantus) Insulin Glargine, Recombinant SC SCH (22:37)
[2017-09-20 00:39] VITALS: RESP 20
[2017-09-20] MEDS: (Novolog) Insulin Aspart, Recombinant 100 u/ml 10 ml vial SC SCH ×4 (01:32→12:22)
[2017-09-20] MEDS: Heparin25000 units/250ml 1/2NS 25,000 UNITS/250 ML BAG IV PRN (01:36)
[2017-09-20 07:09] LABS: INR 1.9; PROTHROMBIN TIME 21.5 SECONDS (9.7-12.2)
[2017-09-20 07:22] LABS: BASO # 0.1 K/uL (0.0-0.2); BASO % 0.6 % (0.0-2.0); EOS % 0.4 % (0.0-4.0); HEMOGLOBIN 7.6 g/dL (11.0-16.0); LYMPH # 0.4 K/uL (1.0-4.3); LYMPH % 3.8 % (20.0-40.0); MEAN CELL VOLUME 87.1 fL (81.0-99.0); MEAN CORPUSCULAR HEMOGLOBIN 27.9 pg (27.0-31.0); MEAN PLATELET VOLUME 9.9 fL (7.2-11.7); MONO # 0.3 K/uL (0.0-0.8); MONO % 2.9 % (0.0-10.0); NEUT # 9.2 K/uL (1.8-7.0); NEUT % 92.3 % (50.0-75.0); NRBC % 0.1 % (0.0-2.0); PLATELET COUNT 132 K/uL (130-400); RBC 2.72 Mil/uL (3.80-5.20); RED CELL DISTRIBUTION WIDTH 18.3 % (11.5-14.5)
--- NOTE | 2017-09-20 07:30 | CP.PCM.PN ---
<Gee Raines - Last Filed: 09/20/17 10:51> Subjective - Date & Time of Evaluation Date of Evaluation: 09/20/17 Time of Evaluation: 09:00 - Subjective Subjective: Medicine progress note for Dr. Lockhart Patient seen and examined. Patient is unable to speak due to weakness and lethargy. Unable to obtain ROS. Per nursing, patient's blood glucose has been elevated. This is likely due to the TPN that is being continually infused. Objective - Vital Signs/Intake and Output Vital Signs (last 24 hours): Temp Pulse Resp BP Pulse Ox 97.8 F 113 H 20 107/67 95 09/20/17 00:00 09/20/17 01:00 09/20/17 00:00 09/20/17 00:00 09/20/17 00:00 Intake and Output: 09/20/17 09/20/17 06:59 18:59 Intake Total 741.2 Balance 741.2 - Medications Medications: Current Medications Albumin Human (Albumin Human 25% (12.5 Gm/50 Ml)) 25 gm IV TTS PRN PRN Reason: Other Last Admin: 09/14/17 14:46 Dose: 25 gm Albuterol/Ipratropium (Duoneb 3 Mg/0.5 Mg (3 Ml) Ud) 3 ml INH RQ4 PRN PRN Reason: Shortness of Breath Last Admin: 09/17/17 01:21 Dose: 3 ml Aspirin (Aspirin Chewable) 81 mg NG DAILY [facility] Last Admin: 09/19/17 09:42 Dose: Not Given Dextrose (Dextrose 50% Inj) 0 ml IV STAT PRN; Protocol PRN Reason: Hypoglycemia Protocol Dextrose (Glutose 15) 0 gm PO ONCE PRN; Protocol PRN Reason: Hypoglycemia Protocol Diltiazem HCl (Cardizem) 30 mg NG Q6H [facility] Last Admin: 09/20/17 01:26 Dose: Not Given Epoetin Alan (Procrit) 10,000 unit IV TTS [facility] Last Admin: 09/19/17 14:47 Dose: 10,000 unit Epoetin Alan (Procrit) 4,000 unit IV TTS [facility] Last Admin: 09/19/17 14:48 Dose: 4,000 unit Ferrous Gluconate (Fergon) 324 mg PO TID [facility] Last Admin: 09/19/17 18:56 Dose: Not Given Glucagon (Glucagen Diagnostic Kit) 0 mg IM STAT PRN; Protocol PRN Reason: Hypoglycemia Protocol Heparin Sodium (Porcine) (Heparin) 3,700 units IVP TTS [facility] Stop: 09/28/17 10:01 Last Admin: 09/19/17 14:46 Dose: 3,700 units Aztreonam 1 gm/ Sodium (Chloride) 100 mls @ 100 mls/hr IVPB DAILY [facility] PRN Reason: Protocol Last Admin: 09/19/17 09:42 Dose: 100 mls/hr Dextrose (Dextrose 5% In Water 1000 Ml) 1,000 mls @ 0 mls/hr IV .Q0M PRN; Protocol; Per Protocol PRN Reason: Hypoglycemia Protocol Heparin Sodium/Sodium Chloride (Heparin 65400 Units/250ml 1/2 Normal Saline) 25 ,000 units in 250 mls @ 7.908 mls/hr IV .Q24H PRN; Protocol; 12 UNITS/KG/HR PRN Reason: PROTOCOL Last Admin: 09/20/17 01:36 Dose: 12 units/kg/hr, 7.908 mls/hr Multivitamins/Vitamin C 10 ml/Heparin Sodium (Porcine) 1, 000 units/ Amino Acids /Electrolytes/Dextrose 1,011 mls @ 42 mls/hr IV .Q24H ONE Stop: 09/20/17 17:59 Last Admin: 09/19/17 18:20 Dose: 42 mls/hr Fat Emulsion Intravenous (Intralipid 20%) 250 mls @ 42 mls/hr IV QOD [facility] Insulin Aspart (Novolog) 0 unit SC Q6 [facility] PRN Reason: Protocol Last Admin: 09/20/17 06:50 Dose: 12 unit Insulin Glargine (Lantus) 10 unit SC HS [facility] Last Admin: 09/19/17 22:37 Dose: 10 unit Metoprolol Tartrate (Lopressor) 25 mg NG BID [facility] Last Admin: 09/19/17 18:21 Dose: Not Given Midodrine (Proamatine) 10 mg NG TTS [facility] Last Admin: 09/17/17 10:06 Dose: 10 mg Pantoprazole Sodium (Protonix Inj) 40 mg IVP DAILY [facility] Last Admin: 09/19/17 09:42 Dose: 40 mg Paricalcitol (Zemplar) 2 mcg IV TTS [facility] Last Admin: 09/19/17 14:48 Dose: 2 mcg Rosuvastatin Calcium (Crestor) 5 mg NG HS [facility] Last Admin: 09/19/17 21:55 Dose: Not Given Sennosides (Senokot Tab) 8.6 mg NG DAILY [facility] Last Admin: 09/18/17 09:08 Dose: 8.6 mg Sevelamer Carbonate (Renvela) 800 mg NG TIDCC [facility] Last Admin: 09/19/17 17:50 Dose: Not Given Vitamin B Complex/Vit C/Folic Acid (Nephro-Kamron) 1 tab NG 0800 [facility] Last Admin: 09/19/17 07:40 Dose: Not Given - Labs Labs: 09/20/17 06:59 09/19/17 06:54 PT 21.5 SECONDS (9.7-12.2) H 09/20/17 06:59 INR 1.9 09/20/17 06:59 APTT 45 SECONDS (21-34) H 09/19/17 14:11 - Additional Findings Additional findings: - Constitutional Appears: No Acute Distress, Chronically Ill - Eye Exam Eye Exam: EOMI, Normal appearance - ENT Exam ENT Exam: Mucous Membranes Moist - Respiratory Exam Additional comments: Coarse breath sounds bilaterally with some rales and congestion - Cardiovascular Exam Cardiovascular Exam: Irregular Rhythm, +S1, +S2 - GI/Abdominal Exam GI & Abdominal Exam: Soft, Hypoactive Bowel Sounds. absent: Distended, Guarding , Tenderness - Extremities Exam Additional comments: Evidence of chronic venous stasis Pedal pulses weak - Neurological Exam Neurological Exam: Awake - Skin Skin Exam: Dry, Warm Assessment and Plan - Assessment and Plan (Free Text) Plan: 1. Acute NSTEMI, Asystole ,CPR/Sustained VT Previously on Heparin GGT Cardiology consult, Dr. Houston. Help appreciated Family elected against cardiac catheterization despite the advice of multiple professionals Echo shows EF of 15-20% Cardizem 30 mg PO Q6--cannot give because of lack of NGT Lopressor 25 mg PO BID--cannot give because of lack of NGT ASA 81 mg PO daily--cannot give because of lack of NGT Crestor 5 mg HS--cannot give because of lack of NGT 2. Respiratory failure, s/p intubation and later extubation Previously intubated in the ICU and now extubated Saturating well on non-rebreather mask CXR on 09/17/17 shows new collapse, volume loss of right lower lobe If patient's saturation declines, we will order BiPAP 3. Atrial Fibrillation CHADS-VAsc score 8 Continue Heparin drip Will rate control as needed with IV Lopressor and IV digoxin 4. Acute renal failure on chronic renal disease/Now ESRD on HD Nephrology consult, Dr. Hebert, help appreciated Dialysis T,Th,S Renvela TID--cannot give because of lack of NGT On 09/10: L IJ permacath placed and left shiley removed 5. Sepsis Previously on Vancomycin, flagyl, and aztreonam Now currently only on Aztreonam for pseudomonas in the sputum Elevated procalcitonin 6.1 6. Acute systolic heart failure Family refuses cardiac cath. has high risk for arrhythmia and poor prognosis Family aware of her condition ECHO shows EF 15 to 20% 7. Pleural effusion Persistent left loculated pleural effusion 8. Hyperglycemia and uncontrolled DM Aspart sliding scale Lantus 10 units HS NPH/Regular 70/30 10 units Q12 9. Anemia of chronic disease, CKD Procrit T,,S Ferrous gluconate 324 mg TID 10. Prophylaxis TPN ordered for nutrition Protonix 40 mg IV daily DVT prophylaxis: on Heparin drip. Disposition: Family has requested DNR/DNI per palliative. Hospice evaluation was placed. Family wishes for [place] hospice. However, since the patient does not have a secondary insurance, family will need to decide if they wish to pay for part of the cost for the prison out of pocket. We are still awaiting the family's decision at this time. Discussed with Dr. Chantelle Raines PGY-1 <Michael Lockhart H - Last Filed: 09/20/17 14:43> Objective - Vital Signs/Intake and Output Vital Signs (last 24 hours): Temp Pulse Resp BP Pulse Ox 98.6 F 99 H 20 132/82 100 09/20/17 08:00 09/20/17 08:00 09/20/17 08:00 09/20/17 08:00 09/20/17 08:00 Intake and Output: 09/20/17 09/20/17 06:59 18:59 Intake Total 741.2 Balance 741.2 - Medications Medications: Current Medications Albumin Human (Albumin Human 25% (12.5 Gm/50 Ml)) 25 gm IV TTS PRN PRN Reason: Other Last Admin: 09/14/17 14:46 Dose: 25 gm Albuterol/Ipratropium (Duoneb 3 Mg/0.5 Mg (3 Ml) Ud) 3 ml INH RQ4 PRN PRN Reason: Shortness of Breath Last Admin: 09/20/17 12:45 Dose: 3 ml Aspirin (Aspirin Chewable) 81 mg NG DAILY [facility] Last Admin: 09/20/17 10:15 Dose: Not Given Dextrose (Dextrose 50% Inj) 0 ml IV STAT PRN; Protocol PRN Reason: Hypoglycemia Protocol Dextrose (Glutose 15) 0 gm PO ONCE PRN; Protocol PRN Reason: Hypoglycemia Protocol Diltiazem HCl (Cardizem) 30 mg NG Q6H [facility] Last Admin: 09/20/17 12:42 Dose: Not Given Epoetin Alan (Procrit) 10,000 unit IV TTS [facility] Last Admin: 09/19/17 14:47 Dose: 10,000 unit Epoetin Alan (Procrit) 4,000 unit IV TTS [facility] Last Admin: 09/19/17 14:48 Dose: 4,000 unit Ferrous Gluconate (Fergon) 324 mg PO TID [facility] Last Admin: 09/20/17 13:19 Dose: Not Given Glucagon (Glucagen Diagnostic Kit) 0 mg IM STAT PRN; Protocol PRN Reason: Hypoglycemia Protocol Heparin Sodium (Porcine) (Heparin) 3,700 units IVP TTS [facility] Stop: 09/28/17 10:01 Last Admin: 09/19/17 14:46 Dose: 3,700 units Aztreonam 1 gm/ Sodium (Chloride) 100 mls @ 100 mls/hr IVPB DAILY [facility] PRN Reason: Protocol Last Admin: 09/20/17 10:23 Dose: 100 mls/hr Dextrose (Dextrose 5% In Water 1000 Ml) 1,000 mls @ 0 mls/hr IV .Q0M PRN; Protocol; Per Protocol PRN Reason: Hypoglycemia Protocol Multivitamins/Vitamin C 10 ml/Heparin Sodium (Porcine) 1, 000 units/ Amino Acids /Electrolytes/Dextrose 1,011 mls @ 42 mls/hr IV .Q24H ONE Stop: 09/20/17 17:59 Last Admin: 09/19/17 18:20 Dose: 42 mls/hr Heparin Sodium/Sodium Chloride (Heparin 56206 Units/250ml 1/2 Normal Saline) 25 ,000 units in 250 mls @ 9.226 mls/hr IV .Q24H PRN; Protocol; 14 UNITS/KG/HR PRN Reason: PROTOCOL Last Admin: 09/20/17 09:10 Dose: 14 units/kg/hr, 9.226 mls/hr Multivitamins/Vitamin C 10 ml/Heparin Sodium (Porcine) 1, 000 units/ Amino Acids /Electrolytes/Dextrose 1,011 mls @ 42 mls/hr IV .Q24H ONE Stop: 09/21/17 17:59 Insulin Aspart (Novolog) 0 unit SC Q6 [facility] PRN Reason: Protocol Last Admin: 09/20/17 12:22 Dose: 8 unit Insulin Glargine (Lantus) 10 unit SC HS [facility] Last Admin: 09/19/17 22:37 Dose: 10 unit Insulin Human Isoph/Insulin Regular (Novolin 70/30 (70/30 Units/Ml) 10 Ml) 10 units SC Q12H [facility] Last Admin: 09/20/17 09:46 Dose: 10 units Metoprolol Tartrate (Lopressor) 25 mg NG BID [facility] Last Admin: 09/20/17 10:15 Dose: Not Given Midodrine (Proamatine) 10 mg NG TTS [facility] Last Admin: 09/17/17 10:06 Dose: 10 mg Pantoprazole Sodium (Protonix Inj) 40 mg IVP DAILY [facility] Last Admin: 09/20/17 10:40 Dose: 40 mg Paricalcitol (Zemplar) 2 mcg IV TTS [facility] Last Admin: 09/19/17 14:48 Dose: 2 mcg Rosuvastatin Calcium (Crestor) 5 mg NG HS [facility] Last Admin: 09/19/17 21:55 Dose: Not Given Sennosides (Senokot Tab) 8.6 mg NG DAILY [facility] Last Admin: 09/20/17 10:41 Dose: Not Given Sevelamer Carbonate (Renvela) 800 mg NG TIDCC [facility] Last Admin: 09/20/17 12:41 Dose: Not Given Vitamin B Complex/Vit C/Folic Acid (Nephro-Kamron) 1 tab NG 0800 [facility] Last Admin: 09/20/17 08:16 Dose: Not Given - Labs Labs: 09/20/17 06:59 09/20/17 06:59 PT 21.5 SECONDS (9.7-12.2) H 09/20/17 06:59 INR 1.9 09/20/17 06:59 APTT 35 SECONDS (21-34) H D 09/20/17 13:33 Attending/Attestation - Attestation I have personally seen and examined this patient.: Yes I have fully participated in the care of the patient.: Yes I have reviewed all pertinent clinical information, including history, physical exam and plan: Yes Notes (Text): 09/20/17 14:38 Medical attending: Patient was seen and examined by me. Agree with the above note by the resident. The patient's overall prognosis is very poor. We are continuing with the TPN for nution as she cannot have an NGT Also the HR was 110 systolic, if need to we will give IV digoxin to control the HR. We can also use IV lopressor Should her breathing become worse we will use Bipap When seen today she was not as active as previous times. She looked very tired. Opened her eyes but did not raise her arms. She did not indicate yes or no to questions. Michael Lockhart
[2017-09-20 08:07] LABS: ALB/GLOB RATIO 0.8 (1.0-2.1); ALBUMIN 2.6 g/dL (3.5-5.0); CALCIUM 8.1 mg/dl (8.6-10.4)
[2017-09-20] MEDS: Multivitamin Vitamin B Complex (Nephro-Vite) Tab NG SCH (08:16)
--- NOTE | 2017-09-20 08:19 | CP.PCM.PN ---
Subjective - Date & Time of Evaluation Date of Evaluation: 09/20/17 Time of Evaluation: 08:16 - Subjective Subjective: Patient in bed awake and conscious No nausea or vomiting Objective - Vital Signs/Intake and Output Vital Signs (last 24 hours): Temp Pulse Resp BP Pulse Ox 97.8 F 113 H 20 107/67 95 09/20/17 00:00 09/20/17 01:00 09/20/17 00:00 09/20/17 00:00 09/20/17 00:00 Intake and Output: 09/20/17 09/20/17 06:59 18:59 Intake Total 741.2 Balance 741.2 - Medications Medications: Current Medications Albumin Human (Albumin Human 25% (12.5 Gm/50 Ml)) 25 gm IV TTS PRN PRN Reason: Other Last Admin: 09/14/17 14:46 Dose: 25 gm Albuterol/Ipratropium (Duoneb 3 Mg/0.5 Mg (3 Ml) Ud) 3 ml INH RQ4 PRN PRN Reason: Shortness of Breath Last Admin: 09/17/17 01:21 Dose: 3 ml Aspirin (Aspirin Chewable) 81 mg NG DAILY [facility] Last Admin: 09/19/17 09:42 Dose: Not Given Dextrose (Dextrose 50% Inj) 0 ml IV STAT PRN; Protocol PRN Reason: Hypoglycemia Protocol Dextrose (Glutose 15) 0 gm PO ONCE PRN; Protocol PRN Reason: Hypoglycemia Protocol Diltiazem HCl (Cardizem) 30 mg NG Q6H [facility] Last Admin: 09/20/17 01:26 Dose: Not Given Epoetin Alan (Procrit) 10,000 unit IV TTS [facility] Last Admin: 09/19/17 14:47 Dose: 10,000 unit Epoetin Alan (Procrit) 4,000 unit IV TTS [facility] Last Admin: 09/19/17 14:48 Dose: 4,000 unit Ferrous Gluconate (Fergon) 324 mg PO TID [facility] Last Admin: 09/19/17 18:56 Dose: Not Given Glucagon (Glucagen Diagnostic Kit) 0 mg IM STAT PRN; Protocol PRN Reason: Hypoglycemia Protocol Heparin Sodium (Porcine) (Heparin) 3,700 units IVP TTS [facility] Stop: 09/28/17 10:01 Last Admin: 09/19/17 14:46 Dose: 3,700 units Aztreonam 1 gm/ Sodium (Chloride) 100 mls @ 100 mls/hr IVPB DAILY [facility] PRN Reason: Protocol Last Admin: 09/19/17 09:42 Dose: 100 mls/hr Dextrose (Dextrose 5% In Water 1000 Ml) 1,000 mls @ 0 mls/hr IV .Q0M PRN; Protocol; Per Protocol PRN Reason: Hypoglycemia Protocol Heparin Sodium/Sodium Chloride (Heparin 23017 Units/250ml 1/2 Normal Saline) 25 ,000 units in 250 mls @ 7.908 mls/hr IV .Q24H PRN; Protocol; 12 UNITS/KG/HR PRN Reason: PROTOCOL Last Admin: 09/20/17 01:36 Dose: 12 units/kg/hr, 7.908 mls/hr Multivitamins/Vitamin C 10 ml/Heparin Sodium (Porcine) 1, 000 units/ Amino Acids /Electrolytes/Dextrose 1,011 mls @ 42 mls/hr IV .Q24H ONE Stop: 09/20/17 17:59 Last Admin: 09/19/17 18:20 Dose: 42 mls/hr Fat Emulsion Intravenous (Intralipid 20%) 250 mls @ 42 mls/hr IV QOD [facility] Insulin Aspart (Novolog) 0 unit SC Q6 [facility] PRN Reason: Protocol Last Admin: 09/20/17 06:50 Dose: 12 unit Insulin Glargine (Lantus) 10 unit SC HS [facility] Last Admin: 09/19/17 22:37 Dose: 10 unit Metoprolol Tartrate (Lopressor) 25 mg NG BID [facility] Last Admin: 09/19/17 18:21 Dose: Not Given Midodrine (Proamatine) 10 mg NG TTS [facility] Last Admin: 09/17/17 10:06 Dose: 10 mg Pantoprazole Sodium (Protonix Inj) 40 mg IVP DAILY [facility] Last Admin: 09/19/17 09:42 Dose: 40 mg Paricalcitol (Zemplar) 2 mcg IV TTS [facility] Last Admin: 09/19/17 14:48 Dose: 2 mcg Rosuvastatin Calcium (Crestor) 5 mg NG HS [facility] Last Admin: 09/19/17 21:55 Dose: Not Given Sennosides (Senokot Tab) 8.6 mg NG DAILY [facility] Last Admin: 09/18/17 09:08 Dose: 8.6 mg Sevelamer Carbonate (Renvela) 800 mg NG TIDCC [facility] Last Admin: 09/19/17 17:50 Dose: Not Given Vitamin B Complex/Vit C/Folic Acid (Nephro-Kamron) 1 tab NG 0800 [facility] Last Admin: 09/19/17 07:40 Dose: Not Given - Labs Labs: 09/20/17 06:59 09/20/17 06:59 PT 21.5 SECONDS (9.7-12.2) H 09/20/17 06:59 INR 1.9 09/20/17 06:59 APTT 39 SECONDS (21-34) H D 09/20/17 06:59 - Constitutional Appears: No Acute Distress - ENT Exam ENT Exam: Mucous Membranes Dry - Neck Exam Neck Exam: absent: Lymphadenopathy - Respiratory Exam Respiratory Exam: Rhonchi, NORMAL BREATHING PATTERN. absent: Chest Wall Tenderness - GI/Abdominal Exam GI & Abdominal Exam: Soft, Normal Bowel Sounds - Extremities Exam Extremities Exam: absent: Calf Tenderness - Back Exam Back Exam: absent: CVA tenderness (L), CVA tenderness (R) - Neurological Exam Neurological Exam: Alert - Psychiatric Exam Psychiatric exam: Anxious - Skin Skin Exam: absent: Cyanosis Assessment and Plan (1) Acute on chronic renal failure Assessment & Plan: CKD stage 5 (N18.5) with hyperkalemia, acidosis now has ESRD on HD via permacath TTS pulm edema, CHF, NSTEMI, pleural effusions, pneumonia AMS, hyperglycemia s/p cardiac arrest, shock liver, A fib Diabetic chronic Kidney Disease (E11.22) Hypertensive Chronic Kidney Disease (I12.9) Anemia (D64.9), Hyperphosphatemia (E83.39), Secondary Hyperparathyroidism (E21.1 ), HTN (I12.9), vit D insuff, hx of colon CA, TIA/CVAs patient completed hemodialysis yesterday and she is scheduled to have hemodialysis for tomorrow Patient has a rapid heart rate in the range of 114 as per cardiology. Glycemic control Status: Acute (2) Cardiac arrest Status: Acute
[2017-09-20] MEDS: Albuterol-Ipratrop 3 mg / 0.5 (3 ml) UD INH PRN ×2 (08:32→12:45)
[2017-09-20 08:40] LABS: ANISOCYTOSIS SLIGHT; BANDS 1 % (0-2); LYMPHOCYTE 3 % (20-40); MONOCYTE 2 % (0-10); NEUTROPHIL 94 % (50-75); PLATELET ESTIMATE NORMAL (NORMAL); POIKILOCYTOSIS SLIGHT; TOTAL CELLS COUNTED 100
[2017-09-20 08:41] LABS: BURR CELLS SLIGHT; OVALOCYTES SLIGHT
[2017-09-20 08:42] LABS: HYPOCHROMIC MODERATE; TARGET CELLS SLIGHT; TEARDROP CELLS SLIGHT
[2017-09-20] MEDS ORDERED: (Novolin 70/30) NPH/Regular 70/30 Units/ml 10 ml vial SC SCH (09:00)
[2017-09-20] MEDS ORDERED: Heparin25000 units/250ml 1/2NS 25,000 UNITS/250 ML BAG IV PRN (09:00)
[2017-09-20] MEDS: Aztreonam 1 GM in Sodium Chloride 0.9% 100 ML IVPB SCH (10:23)
[2017-09-20 15:38] VITALS: BP 112/54; TEMP 98.8; O2SAT 96
--- NOTE | 2017-09-20 16:31 | CP.PCM.DIS ---
<Gee Raines - Last Filed: 09/20/17 16:35> Provider - Provider Date of Admission: 08/30/17 00:10 Attending physician: Michael Lockhart DO Primary care physician: Dr. Saldaña Consults: Cardiology: Dr. Houston, Dr. Cunningham Vascular Surgery: Dr. Quinonez Nephrology: Dr. Hebert Infectious Disease: Dr. Adams Time Spent in preparation of Discharge (in minutes): 50 Diagnosis - Discharge Diagnosis (1) Acute non-ST elevation myocardial infarction (NSTEMI) Status: Acute Priority: High (2) Acute systolic (congestive) heart failure Status: Acute Priority: High (3) Respiratory failure Status: Acute Priority: High (4) Atrial fibrillation Status: Chronic Priority: High (5) End stage renal disease Status: Chronic Priority: High (6) Sepsis Status: Acute Priority: High (7) Pneumonia due to Pseudomonas Status: Acute Priority: High (8) Diabetes Status: Acute Priority: High (9) Pleural effusion Status: Acute Priority: High (10) Anemia Status: Chronic Priority: Medium Hospital Course - Lab Results Lab Results: Micro Results 09/12/17 Unknown Naris MRSA Culture (Admit) - Final MRSA NOT DETECTED 09/10/17 11:30 Trachasp Gram Stain - Final 09/10/17 11:30 Trachasp Sputum Culture - Final Pseudomonas Aeruginosa 09/10/17 12:18 Catheter Tip Catheter Tip Culture - Final No Growth 09/03/17 Unknown Trachasp Gram Stain - Final 09/03/17 Unknown Trachasp Sputum Culture - Final NORMAL ORAL CHRISTIN 08/29/17 06:30 Blood-Venous Blood Culture - Final NO GROWTH AFTER 5 DAYS 08/29/17 06:30 Blood-Venous Gram Stain - Final TEST NOT PERFORMED 08/29/17 06:00 Blood-Venous Blood Culture - Final NO GROWTH AFTER 5 DAYS 08/29/17 06:00 Blood-Venous Gram Stain - Final TEST NOT PERFORMED 08/30/17 06:00 Nose MRSA Culture (Admit) - Final MRSA NOT DETECTED Most Recent Lab Values WBC 10.0 K/uL (4.8-10.8) 09/20/17 06:59 RBC 2.72 Mil/uL (3.80-5.20) L 09/20/17 06:59 Hgb 7.6 g/dL (11.0-16.0) L 09/20/17 06:59 Hct 23.7 % (34.0-47.0) L 09/20/17 06:59 MCV 87.1 fL (81.0-99.0) 09/20/17 06:59 MCH 27.9 pg (27.0-31.0) 09/20/17 06:59 MCHC 32.0 g/dL (33.0-37.0) L 09/20/17 06:59 RDW 18.3 % (11.5-14.5) H 09/20/17 06:59 Plt Count 132 K/uL (130-400) 09/20/17 06:59 MPV 9.9 fL (7.2-11.7) 09/20/17 06:59 Neut % (Auto) 92.3 % (50.0-75.0) H 09/20/17 06:59 Lymph % (Auto) 3.8 % (20.0-40.0) L 09/20/17 06:59 Harrison % (Auto) 2.9 % (0.0-10.0) 09/20/17 06:59 Eos % (Auto) 0.4 % (0.0-4.0) 09/20/17 06:59 Baso % (Auto) 0.6 % (0.0-2.0) 09/20/17 06:59 Neut # (Auto) 9.2 K/uL (1.8-7.0) H 09/20/17 06:59 Lymph # (Auto) 0.4 K/uL (1.0-4.3) L 09/20/17 06:59 Harrison # (Auto) 0.3 K/uL (0.0-0.8) 09/20/17 06:59 Eos # (Auto) 0.0 K/uL (0.0-0.7) 09/20/17 06:59 Baso # (Auto) 0.1 K/uL (0.0-0.2) 09/20/17 06:59 Neutrophils % (Manual) 94 % (50-75) H 09/20/17 06:59 Band Neutrophils % 1 % (0-2) 09/20/17 06:59 Lymphocytes % (Manual) 3 % (20-40) L 09/20/17 06:59 Reactive Lymphs % 1 % (0-0) H 09/01/17 06:11 Monocytes % (Manual) 2 % (0-10) 09/20/17 06:59 Eosinophils % (Manual) 1 % (0-4) 09/17/17 07:19 Metamyelocytes % 1 % (0-0) H 09/01/17 06:11 Myelocytes % 1 % (0-0) H 09/04/17 06:19 Nucleated RBC % 2 % (0-0) H 09/10/17 05:46 Differential Comment 09/03/17 06:18 Toxic Granulation Present 09/15/17 08:26 Platelet Estimate Normal (NORMAL) 09/20/17 06:59 Large Platelets Present 09/16/17 06:51 Giant Platelets Present 09/15/17 08:26 Polychromasia Slight 09/19/17 06:54 Hypochromasia (manual) Moderate 09/20/17 06:59 Poikilocytosis (manual Slight 09/20/17 06:59 Anisocytosis (manual) Slight 09/20/17 06:59 Microcytosis (manual) Slight 09/16/17 06:51 Macrocytosis (manual) Slight 09/15/17 08:26 Spherocytes Slight 09/15/17 08:26 Target Cells Slight 09/20/17 06:59 Tear Drop Cells Slight 09/20/17 06:59 Ovalocytes Slight 09/20/17 06:59 Liz[place]ores Cells Slight 09/20/17 06:59 Schistocytes Slight 09/14/17 07:35 PT 21.5 SECONDS (9.7-12.2) H 09/20/17 06:59 INR 1.9 09/20/17 06:59 APTT 35 SECONDS (21-34) H D 09/20/17 13:33 D-Dimer, Quantitative 4388 ng/mlDDU (0-243) H 08/29/17 22:51 Puncture Site Rra 09/11/17 17:55 pCO2 33 mm/Hg (35-45) L 09/11/17 17:55 pO2 47 mm/Hg (80-100) L 09/11/17 17:55 HCO3 21.3 mmol/L (21-28) 09/11/17 17:55 ABG pH 7.39 (7.35-7.45) 09/11/17 17:55 ABG Total CO2 21.0 mmol/L (22-28) L 09/11/17 17:55 ABG O2 Saturation 85.8 % (95-98) L 09/11/17 17:55 ABG Base Excess -4.1 mmol/L (-2.0-3.0) L 09/11/17 17:55 ABG Hemoglobin 9.1 g/dL (11.7-17.4) L 09/09/17 04:30 ABG Carboxyhemoglobin 2.3 % (0.5-1.5) H 09/09/17 04:30 POC ABG HHb (Measured) 8.0 % (0.0-5.0) H 09/09/17 04:30 ABG Methemoglobin 0.7 % (0.0-3.0) 09/09/17 04:30 Christian Test Pos 09/11/17 17:55 ABG Potassium 4.4 mmol/L (3.6-5.2) 09/11/17 17:55 VBG pH 7.20 (7.32-7.43) L 08/31/17 00:29 VBG pCO2 42 mmHg (40-60) 08/31/17 00:29 VBG HCO3 14.0 mmol/L 08/31/17 00:29 VBG Total CO2 15.5 mmol/L (22-28) L 08/29/17 23:25 VBG O2 Sat (Calc) 30.5 % (40-65) L 08/31/17 00:29 VBG Base Excess -11.2 mmol/L (0.0-2.0) L 08/31/17 00:29 VBG Potassium 5.8 mmol/L (3.6-5.2) H 08/29/17 23:25 A-a O2 Difference 625.0 mm/Hg 09/11/17 17:55 Respiratory Index 13.3 09/11/17 17:55 Hgb O2 Saturation 89.0 % (95.0-98.0) L 09/09/17 04:30 Sodium 137.0 mmol/l (132-148) 09/11/17 17:55 Chloride 102.0 mmol/L (98-107) 09/11/17 17:55 Glucose 249 mg/dl (65-105) H 09/11/17 17:55 Lactate 2.0 mmol/L (0.7-2.1) 09/11/17 17:55 Vent Mode Prvc 09/09/17 04:30 Mechanical Rate 16 09/09/17 04:30 FiO2 100.0 % 09/11/17 17:55 Tidal Volume 500 09/09/17 04:30 PEEP 5 09/09/17 04:30 Pressure Support 12 09/05/17 04:35 CPAP 5 09/05/17 04:35 Crit Value Called To Brooklynn dangelo agricultural extension agent 09/01/17 05:02 Crit Value Called By Yaneth resendiz rt 09/01/17 05:02 Crit Value Read Back Y 09/01/17 05:02 Blood Gas Notified Time 542 09/01/17 05:02 Sodium 133 mmol/L (132-148) 09/20/17 06:59 Potassium 3.9 mmol/L (3.6-5.2) 09/20/17 06:59 Chloride 93 mmol/L (98-107) L 09/20/17 06:59 Carbon Dioxide 26 mmol/L (22-30) 09/20/17 06:59 Anion Gap 18 (10-20) 09/20/17 06:59 BUN 53 mg/dL (7-17) H 09/20/17 06:59 Creatinine 3.4 mg/dL (0.7-1.2) H 09/20/17 06:59 Est GFR ( Amer) 16 09/20/17 06:59 Est GFR (Non-Af Amer) 13 09/20/17 06:59 POC Glucose (mg/dL) 300 mg/dL (65-110) H 09/20/17 11:49 Random Glucose 399 mg/dL (65-105) H 09/20/17 06:59 Lactic Acid 4.8 mmol/L (0.7-2.1) H* 09/01/17 06:08 Calcium 8.1 mg/dl (8.6-10.4) L 09/20/17 06:59 Phosphorus 3.9 mg/dL (2.5-4.5) 09/20/17 06:59 Magnesium 2.0 mg/dL (1.6-2.3) 09/20/17 06:59 Iron 18 ug/dL (37-170) L 08/30/17 12:19 TIBC 196 ug/dL (250-450) L 08/30/17 12:19 % Saturation 9 (20-55) L 08/30/17 12:19 Ferritin 195.0 ng/mL 08/30/17 12:19 Total Bilirubin 1.0 mg/dL (0.2-1.3) 09/20/17 06:59 AST 23 U/L (14-36) 09/20/17 06:59 ALT 59 U/L (9-52) H 09/20/17 06:59 Alkaline Phosphatase 165 U/L (38-126) H 09/20/17 06:59 Total Creatine Kinase 912 U/L (30-135) H 08/31/17 15:29 Troponin I 79.7000 ng/mL (0.00-0.120) H* 08/30/17 20:41 NT-Pro-B Natriuret Pep 53618 pg/mL (0-900) H 08/29/17 22:51 Total Protein 6.0 g/dL (6.3-8.3) L 09/20/17 06:59 Albumin 2.6 g/dL (3.5-5.0) L 09/20/17 06:59 Globulin 3.4 gm/dL (2.2-3.9) 09/20/17 06:59 Albumin/Globulin Ratio 0.8 (1.0-2.1) L 09/20/17 06:59 Triglycerides 82 mg/dL (0-149) D 08/31/17 03:18 Cholesterol 173 mg/dL (0-199) 08/31/17 03:18 LDL Cholesterol Direct 42 mg/dL (0-129) 08/31/17 03:18 HDL Cholesterol 56 mg/dL (30-70) 08/31/17 03:18 25-OH Vitamin D Total 27.1 NG/ML (30.0-100.0) L 08/30/17 12:19 Procalcitonin 6.11 NG/ML (0.19-0.49) H 09/10/17 10:19 PTH Intact Whole Molec 1119 pg/mL (14-64) H 08/30/17 12:19 Arterial Blood Potassium 4.4 mmol/L (3.6-5.2) 09/11/17 17:55 Venous Blood Potassium 5.8 mmol/L (3.6-5.2) H 08/29/17 23:25 Vancomycin Trough 20.1 ug/mL (5.0-10.0) H 09/14/17 07:35 Random Vancomycin < 5.00 ug/mL 08/31/17 15:29 Serum Ketones Negative (NEGATIVE) 08/29/17 22:51 Hep Bs Antigen Negative (NEGATIVE) 08/30/17 12:19 Hep Bs Antibody Negative (NEGATIVE) 08/30/17 12:19 Hep B Core IgM Ab Negative (NEGATIVE) 08/30/17 12:19 Hepatitis C Antibody Negative (NEGATIVE) 08/30/17 12:19 Influenza Type A Ab <1:8 titer (<1:8) 08/31/17 11:44 Influenza Type B Ab <1:8 titer (<1:8) 08/31/17 11:44 Blood Type O POSITIVE 09/15/17 08:26 Antibody Screen Negative 09/15/17 08:26 - Hospital Course Hospital Course: On admission: "Patient is a 76 year old female with a PMH significant for CKD stage V (not on dialysis), Diastolic CHF, DM, HTN, hypercholesterolemia, [place] (many years ago, no known intervention), TIA x 3 (years ago), colon CA who presents for altered mental status. Patient's son noted her blood sugar to be high today (500+) and gave her insulin. Patient's daughter came to check on her at 4pm and noted her to be " not acting right" and "looking at her funny." Blood sugar was noted to be 500+ at that time, and patient's daughter decided to bring her to the hospital. Daughter states that patient began complaining of chest pain yesterday, accompanied by chills, abdominal pain and dry cough. No fever at home. She also notes recent weakness, headache, dizziness, and decreased appetite. Patient had an AV graft placed in May 2016 but she has never had dialysis (unclear why) . Patient still makes urine; daughter states that she last urinated and had a bowel movement this morning. Daughter denies any recent illness, sick contacts, vomiting, melena/hematochezia , bruising/bleeding, leg swelling." Hospital Course: Patient admitted due to NSTEMI and severe sepsis due to pneumonia. Patient with significantly elevated troponins. Cardiac catheterization was recommended, but the family refused, and therefore medical management was the only option remaining. Patient had an NSTEMI leading to severe acute systolic CHF with low ejection fraction. Patient also with pseudomonas in the sputum and pleural effusions. She was treated with Aztreonam for the pseudomonas. Patient with ESRD , and a dialysis catheter was inserted on this admission in order to begin a , , dialysis schedule. Patient's family elected to change her code status to DNR/DNI and were deliberating on goals of care. Patient's family ultimately elected for hospice care given the patient's poor prognosis and for her comfort. Patient is being discharged to inpatient hospice care under [facility]. This is a summary of the hospital course. For more information, refer to the medical records. Discharge Exam - Additional Findings Additional findings: - Constitutional Appears: No Acute Distress, Chronically Ill - Eye Exam Eye Exam: EOMI, Normal appearance - ENT Exam ENT Exam: Mucous Membranes Moist - Respiratory Exam Additional comments: Coarse breath sounds bilaterally with some rales and congestion - Cardiovascular Exam Cardiovascular Exam: Irregular Rhythm, +S1, +S2 - GI/Abdominal Exam GI & Abdominal Exam: Soft, Hypoactive Bowel Sounds. absent: Distended, Guarding , Tenderness - Extremities Exam Additional comments: Evidence of chronic venous stasis Pedal pulses weak - Neurological Exam Neurological Exam: Awake - Skin Skin Exam: Dry, Warm Discharge Plan - Follow Up Plan Condition: GUARDED Disposition: HOSPICE - MEDICAL FACILITY Clinical Quality Measures - CQM - Heart Failure Ejection Fraction: Less Than 40 % Left Ventricular Function to be assessed after discharge: No MARIA VICTORIA Inhibitor Prescribed: No Contraindication/Reason for not providing: Hospice Beta-Stuart Prescribed: None Contraindication/Reason for not providing: Hospice Angiotensin II Receptor Stuart Prescribed: No Contraindication/Reason for not providing: Hospice AnticoagulationTherapy for Atrial Fibrillation/Atrialflutter: No Contraindication/Reason for not providing: Hospice Aldosterone Antagonist Prescribed: No Contraindication/Reason for not providing: Hospice Hydralazine Nitrate Prescribed: No Contraindication/Reason for not providing: Hospice Implantable Cardioverter Defibrillator Therapy: No Contraindication/Reason for not providing: Hospice Cardiac Resynchronization Therapy Prescribed: No Contraindication/Reason for not providing: Hospice <Michael Lockhart - Last Filed: 09/20/17 17:15> Provider - Provider Date of Admission: 08/30/17 00:10 Attending physician: Michael Lockhart DO Hospital Course - Lab Results Lab Results: Micro Results 09/12/17 Unknown Naris MRSA Culture (Admit) - Final MRSA NOT DETECTED 09/10/17 11:30 Trachasp Gram Stain - Final 09/10/17 11:30 Trachasp Sputum Culture - Final Pseudomonas Aeruginosa 09/10/17 12:18 Catheter Tip Catheter Tip Culture - Final No Growth 09/03/17 Unknown Trachasp Gram Stain - Final 09/03/17 Unknown Trachasp Sputum Culture - Final NORMAL ORAL CHRISTIN 08/29/17 06:30 Blood-Venous Blood Culture - Final NO GROWTH AFTER 5 DAYS 08/29/17 06:30 Blood-Venous Gram Stain - Final TEST NOT PERFORMED 08/29/17 06:00 Blood-Venous Blood Culture - Final NO GROWTH AFTER 5 DAYS 08/29/17 06:00 Blood-Venous Gram Stain - Final TEST NOT PERFORMED 08/30/17 06:00 Nose MRSA Culture (Admit) - Final MRSA NOT DETECTED Most Recent Lab Values WBC 10.0 K/uL (4.8-10.8) 09/20/17 06:59 RBC 2.72 Mil/uL (3.80-5.20) L 09/20/17 06:59 Hgb 7.6 g/dL (11.0-16.0) L 09/20/17 06:59 Hct 23.7 % (34.0-47.0) L 09/20/17 06:59 MCV 87.1 fL (81.0-99.0) 09/20/17 06:59 MCH 27.9 pg (27.0-31.0) 09/20/17 06:59 MCHC 32.0 g/dL (33.0-37.0) L 09/20/17 06:59 RDW 18.3 % (11.5-14.5) H 09/20/17 06:59 Plt Count 132 K/uL (130-400) 09/20/17 06:59 MPV 9.9 fL (7.2-11.7) 09/20/17 06:59 Neut % (Auto) 92.3 % (50.0-75.0) H 09/20/17 06:59 Lymph % (Auto) 3.8 % (20.0-40.0) L 09/20/17 06:59 Harrison % (Auto) 2.9 % (0.0-10.0) 09/20/17 06:59 Eos % (Auto) 0.4 % (0.0-4.0) 09/20/17 06:59 Baso % (Auto) 0.6 % (0.0-2.0) 09/20/17 06:59 Neut # (Auto) 9.2 K/uL (1.8-7.0) H 09/20/17 06:59 Lymph # (Auto) 0.4 K/uL (1.0-4.3) L 09/20/17 06:59 Harrison # (Auto) 0.3 K/uL (0.0-0.8) 09/20/17 06:59 Eos # (Auto) 0.0 K/uL (0.0-0.7) 09/20/17 06:59 Baso # (Auto) 0.1 K/uL (0.0-0.2) 09/20/17 06:59 Neutrophils % (Manual) 94 % (50-75) H 09/20/17 06:59 Band Neutrophils % 1 % (0-2) 09/20/17 06:59 Lymphocytes % (Manual) 3 % (20-40) L 09/20/17 06:59 Reactive Lymphs % 1 % (0-0) H 09/01/17 06:11 Monocytes % (Manual) 2 % (0-10) 09/20/17 06:59 Eosinophils % (Manual) 1 % (0-4) 09/17/17 07:19 Metamyelocytes % 1 % (0-0) H 09/01/17 06:11 Myelocytes % 1 % (0-0) H 09/04/17 06:19 Nucleated RBC % 2 % (0-0) H 09/10/17 05:46 Differential Comment 09/03/17 06:18 Toxic Granulation Present 09/15/17 08:26 Platelet Estimate Normal (NORMAL) 09/20/17 06:59 Large Platelets Present 09/16/17 06:51 Giant Platelets Present 09/15/17 08:26 Polychromasia Slight 09/19/17 06:54 Hypochromasia (manual) Moderate 09/20/17 06:59 Poikilocytosis (manual Slight 09/20/17 06:59 Anisocytosis (manual) Slight 09/20/17 06:59 Microcytosis (manual) Slight 09/16/17 06:51 Macrocytosis (manual) Slight 09/15/17 08:26 Spherocytes Slight 09/15/17 08:26 Target Cells Slight 09/20/17 06:59 Tear Drop Cells Slight 09/20/17 06:59 Ovalocytes Slight 09/20/17 06:59 Elías Cells Slight 09/20/17 06:59 Schistocytes Slight 09/14/17 07:35 PT 21.5 SECONDS (9.7-12.2) H 09/20/17 06:59 INR 1.9 09/20/17 06:59 APTT 35 SECONDS (21-34) H D 09/20/17 13:33 D-Dimer, Quantitative 4388 ng/mlDDU (0-243) H 08/29/17 22:51 Puncture Site Rra 09/11/17 17:55 pCO2 33 mm/Hg (35-45) L 09/11/17 17:55 pO2 47 mm/Hg (80-100) L 09/11/17 17:55 HCO3 21.3 mmol/L (21-28) 09/11/17 17:55 ABG pH 7.39 (7.35-7.45) 09/11/17 17:55 ABG Total CO2 21.0 mmol/L (22-28) L 09/11/17 17:55 ABG O2 Saturation 85.8 % (95-98) L 09/11/17 17:55 ABG Base Excess -4.1 mmol/L (-2.0-3.0) L 09/11/17 17:55 ABG Hemoglobin 9.1 g/dL (11.7-17.4) L 09/09/17 04:30 ABG Carboxyhemoglobin 2.3 % (0.5-1.5) H 09/09/17 04:30 POC ABG HHb (Measured) 8.0 % (0.0-5.0) H 09/09/17 04:30 ABG Methemoglobin 0.7 % (0.0-3.0) 09/09/17 04:30 Christian Test Pos 09/11/17 17:55 ABG Potassium 4.4 mmol/L (3.6-5.2) 09/11/17 17:55 VBG pH 7.20 (7.32-7.43) L 08/31/17 00:29 VBG pCO2 42 mmHg (40-60) 08/31/17 00:29 VBG HCO3 14.0 mmol/L 08/31/17 00:29 VBG Total CO2 15.5 mmol/L (22-28) L 08/29/17 23:25 VBG O2 Sat (Calc) 30.5 % (40-65) L 08/31/17 00:29 VBG Base Excess -11.2 mmol/L (0.0-2.0) L 08/31/17 00:29 VBG Potassium 5.8 mmol/L (3.6-5.2) H 08/29/17 23:25 A-a O2 Difference 625.0 mm/Hg 09/11/17 17:55 Respiratory Index 13.3 09/11/17 17:55 Hgb O2 Saturation 89.0 % (95.0-98.0) L 09/09/17 04:30 Sodium 137.0 mmol/l (132-148) 09/11/17 17:55 Chloride 102.0 mmol/L (98-107) 09/11/17 17:55 Glucose 249 mg/dl (65-105) H 09/11/17 17:55 Lactate 2.0 mmol/L (0.7-2.1) 09/11/17 17:55 Vent Mode Prvc 09/09/17 04:30 Mechanical Rate 16 09/09/17 04:30 FiO2 100.0 % 09/11/17 17:55 Tidal Volume 500 09/09/17 04:30 PEEP 5 09/09/17 04:30 Pressure Support 12 09/05/17 04:35 CPAP 5 09/05/17 04:35 Crit Value Called To Brooklynn dangelo agricultural extension agent 09/01/17 05:02 Crit Value Called By Yaneth resendiz rt 09/01/17 05:02 Crit Value Read Back Y 09/01/17 05:02 Blood Gas Notified Time 542 09/01/17 05:02 Sodium 133 mmol/L (132-148) 09/20/17 06:59 Potassium 3.9 mmol/L (3.6-5.2) 09/20/17 06:59 Chloride 93 mmol/L (98-107) L 09/20/17 06:59 Carbon Dioxide 26 mmol/L (22-30) 09/20/17 06:59 Anion Gap 18 (10-20) 09/20/17 06:59 BUN 53 mg/dL (7-17) H 09/20/17 06:59 Creatinine 3.4 mg/dL (0.7-1.2) H 09/20/17 06:59 Est GFR ( Amer) 16 09/20/17 06:59 Est GFR (Non-Af Amer) 13 09/20/17 06:59 POC Glucose (mg/dL) 102 mg/dL (65-110) 09/20/17 16:27 Random Glucose 399 mg/dL (65-105) H 09/20/17 06:59 Lactic Acid 4.8 mmol/L (0.7-2.1) H* 09/01/17 06:08 Calcium 8.1 mg/dl (8.6-10.4) L 09/20/17 06:59 Phosphorus 3.9 mg/dL (2.5-4.5) 09/20/17 06:59 Magnesium 2.0 mg/dL (1.6-2.3) 09/20/17 06:59 Iron 18 ug/dL (37-170) L 08/30/17 12:19 TIBC 196 ug/dL (250-450) L 08/30/17 12:19 % Saturation 9 (20-55) L 08/30/17 12:19 Ferritin 195.0 ng/mL 08/30/17 12:19 Total Bilirubin 1.0 mg/dL (0.2-1.3) 09/20/17 06:59 AST 23 U/L (14-36) 09/20/17 06:59 ALT 59 U/L (9-52) H 09/20/17 06:59 Alkaline Phosphatase 165 U/L (38-126) H 09/20/17 06:59 Total Creatine Kinase 912 U/L (30-135) H 08/31/17 15:29 Troponin I 79.7000 ng/mL (0.00-0.120) H* 08/30/17 20:41 NT-Pro-B Natriuret Pep 51557 pg/mL (0-900) H 08/29/17 22:51 Total Protein 6.0 g/dL (6.3-8.3) L 09/20/17 06:59 Albumin 2.6 g/dL (3.5-5.0) L 09/20/17 06:59 Globulin 3.4 gm/dL (2.2-3.9) 09/20/17 06:59 Albumin/Globulin Ratio 0.8 (1.0-2.1) L 09/20/17 06:59 Triglycerides 82 mg/dL (0-149) D 08/31/17 03:18 Cholesterol 173 mg/dL (0-199) 08/31/17 03:18 LDL Cholesterol Direct 42 mg/dL (0-129) 08/31/17 03:18 HDL Cholesterol 56 mg/dL (30-70) 08/31/17 03:18 25-OH Vitamin D Total 27.1 NG/ML (30.0-100.0) L 08/30/17 12:19 Procalcitonin 6.11 NG/ML (0.19-0.49) H 09/10/17 10:19 PTH Intact Whole Molec 1119 pg/mL (14-64) H 08/30/17 12:19 Arterial Blood Potassium 4.4 mmol/L (3.6-5.2) 09/11/17 17:55 Venous Blood Potassium 5.8 mmol/L (3.6-5.2) H 08/29/17 23:25 Vancomycin Trough 20.1 ug/mL (5.0-10.0) H 09/14/17 07:35 Random Vancomycin < 5.00 ug/mL 08/31/17 15:29 Serum Ketones Negative (NEGATIVE) 08/29/17 22:51 Hep Bs Antigen Negative (NEGATIVE) 08/30/17 12:19 Hep Bs Antibody Negative (NEGATIVE) 08/30/17 12:19 Hep B Core IgM Ab Negative (NEGATIVE) 08/30/17 12:19 Hepatitis C Antibody Negative (NEGATIVE) 08/30/17 12:19 Influenza Type A Ab <1:8 titer (<1:8) 08/31/17 11:44 Influenza Type B Ab <1:8 titer (<1:8) 08/31/17 11:44 Blood Type O POSITIVE 09/15/17 08:26 Antibody Screen Negative 09/15/17 08:26 Attending/Attestation - Attestation I have personally seen and examined this patient.: Yes I have fully participated in the care of the patient.: Yes I have reviewed all pertinent clinical information, including history, physical exam and plan: Yes Notes (Text): 09/20/17 17:10 Medical attending: Patient was seen and examined by me earlier in the day with the medical record retrieval specialist. I later received word that the patient is now being seen by [facility] and will remain here in the hospital. We will start discontinuing TPN as well as the heparin ggt. Also will discontinue the telemetry monitoring There will be a very low dose morphine ggt order. Probably we will not have to titrate this high. Also started ativan 0.5 IV PRN Q6 HRS Our goals now are to keep her as comfortable as possible. Michael Lockhart
[2017-09-20 17:16] VITALS: PULSE 93
[2017-09-20] MEDS ORDERED: TPN IV ONE (18:00)
[2017-09-20] MEDS ORDERED: Fat Emulsion 20% IV 250 ML IV SCH (18:00)
[2017-09-20] MEDS ORDERED: (Lantus) Insulin Glargine, Recombinant SC SCH (22:00)
== END 2017-09-20 17:18 | disposition hospice, inpatient (51) | DRG 870 ==
LOC: C.ER 19:56 → C.9E 08-30 00:10 → EEVIPCON 08-30 00:10 → C.9I 08-30 00:42 → C.6T 09-12 17:49 → C.5S 09-16 09:21
PROVIDERS: ADMIT Hospitalist; ATTEND Hospitalist
PROC: 5A1955Z Respiratory Ventilation, Greater than 96 Consecutive Hours (ICD-10-PCS; principal; 2017-08-30)
PROC: 0BH17EZ Insertion of Endotracheal Airway into Trachea, Via Natural or Artificial Opening (ICD-10-PCS; 2017-08-30)
PROC: 05HM33Z Insertion of Infusion Device into Right Internal Jugular Vein, Percutaneous Approach (ICD-10-PCS; 2017-08-30)
PROC: B54DZZA Ultrasonography of Bilateral Lower Extremity Veins, Guidance (ICD-10-PCS; 2017-08-31)
PROC: 5A1D70Z Performance of Urinary Filtration, Intermittent, Less than 6 Hours Per Day (ICD-10-PCS; 2017-09-01)
PROC: 05PY33Z Removal of Infusion Device from Upper Vein, Percutaneous Approach (ICD-10-PCS; 2017-09-10)
PROC: 02HV33Z Insertion of Infusion Device into Superior Vena Cava, Percutaneous Approach (ICD-10-PCS; 2017-09-10)
DX: A41.9 Sepsis, unspecified organism (principal); J96.00 Acute respiratory failure, unspecified whether with hypoxia or hypercapnia; I21.4 Non-ST elevation (NSTEMI) myocardial infarction; I26.99 Other pulmonary embolism without acute cor pulmonale; J15.1 Pneumonia due to Pseudomonas; N17.9 Acute kidney failure, unspecified; I47.2 Ventricular tachycardia; N18.6 End stage renal disease; E87.5 Hyperkalemia; I95.3 Hypotension of hemodialysis; I50.43 Acute on chronic combined systolic (congestive) and diastolic (congestive) heart failure; I13.2 Hypertensive heart and chronic kidney disease with heart failure and with stage 5 chronic kidney disease, or end stage renal disease; C18.4 Malignant neoplasm of transverse colon; I07.1 Rheumatic tricuspid insufficiency; D63.1 Anemia in chronic kidney disease; R65.20 Severe sepsis without septic shock; E78.00 Pure hypercholesterolemia, unspecified; I25.10 Atherosclerotic heart disease of native coronary artery without angina pectoris; I27.20 Pulmonary hypertension, unspecified; I25.5 Ischemic cardiomyopathy; Z87.891 Personal history of nicotine dependence; Z86.73 Personal history of transient ischemic attack (TIA), and cerebral infarction without residual deficits; E11.22 Type 2 diabetes mellitus with diabetic chronic kidney disease; E11.65 Type 2 diabetes mellitus with hyperglycemia; Z99.2 Dependence on renal dialysis; Z79.4 Long term (current) use of insulin; I48.91 Unspecified atrial fibrillation

== ENCOUNTER 2017-09-20 16:33 | Inpatient (IN) | payer OTHER ==
[2017-09-19 08:03] VITALS: PULSE 128
--- NOTE | 2017-09-20 17:30 | CP.PCM.HP ---
<Gee Raines - Last Filed: 09/20/17 17:38> History of Present Illness - History of Present Illness History of Present Illness: PGY-1 H&P for Dr. Lockhart CC: [facility] Patient previously admitted on 08/30/17 to [facility] due to NSTEMI and severe sepsis due to pneumonia. Patient with significantly elevated troponins. Cardiac catheterization was recommended, but the family refused, and therefore medical management was the only option remaining. Patient had an NSTEMI leading to severe acute systolic CHF with low ejection fraction. Patient also with pseudomonas in the sputum and pleural effusions. She was treated with Aztreonam for the pseudomonas. Patient with ESRD, and a dialysis catheter was inserted on this admission in order to begin a , , dialysis schedule. Patient's family elected to change her code status to DNR/DNI and were deliberating on goals of care. Patient's family ultimately elected for hospice care given the patient's poor prognosis and for her comfort. Patient is being discharged to inpatient hospice care under [facility]. Cannot obtain ROS because of patient's lethargic condition. PMD: Dr. Saldaña PMH: NSTEMI, Systolic CHF, ESRD, DM, HTN, hypercholesterolemia, [place] (many years ago, no known intervention), TIA x 3 (years ago), PAD, CHF, asthma, colon CA in 2009 (treated with chemotherapy and surgery), arthritis PSH: unknown surgery for colon CA (2009); endoscopy, dialysis catheter placement Allergies: Penicillin (rash) Family History: Limited; Mother- of cancer; Father- for unknown reason. Social History: Lives alone in [place] (son and daughter visit daily to assist); ambulates without assistance; at baseline is able to walk around and cook without difficulty; retired; former smoker (25+ pack years); no current ETOH use; no current recreational drug use Present on Admission - Present on Admission Any Indicators Present on Admission: No Review of Systems - Review of Systems Systems not reviewed;Unavailable: Acuity of Condition Past Patient History - Infectious Disease Hx of Infectious Diseases: None - Tetanus Immunizations Tetanus Immunization: Unknown - Past Medical History & Family History Past Medical History?: Yes - Past Social History Smoking Status: Former Smoker - CARDIAC Hx Hypercholesterolemia: Yes Hx Hypertension: Yes - PULMONARY Hx Asthma: Yes (Dx 15 yrs ago,does not use home o2 anymore) Hx Pneumonia: Yes (x2) - NEUROLOGICAL Hx Transient Ischemic Attacks (TIA): Yes (x3 about 20 yrs ago, 10 yrs ago, 7 yrs ago) - HEENT Hx HEENT Problems: Yes Hx Cataracts: Yes - RENAL Hx Chronic Kidney Disease: Yes - ENDOCRINE/METABOLIC Hx Diabetes Mellitus Type 1: Yes - HEMATOLOGICAL/ONCOLOGICAL Hx Anemia: Yes - INTEGUMENTARY Hx Dermatological Problems: No - MUSCULOSKELETAL/RHEUMATOLOGICAL Hx Arthritis: Yes - GASTROINTESTINAL Hx Gastrointestinal Disorders: Yes Other/Comment: Hx colon cancer - GENITOURINARY/GYNECOLOGICAL Hx Genitourinary Disorders: Yes Other/Comment: Colon CA - PSYCHIATRIC Hx Depression: No Hx Substance Use: No - SURGICAL HISTORY Hx Cataract Extraction: Yes (LEFT) - ANESTHESIA Hx Anesthesia: Yes Hx Anesthesia Reactions: No Hx Malignant Hyperthermia: No Meds Allergies/Adverse Reactions: Allergies Allergy/AdvReac Type Severity Reaction Status Date / Time Penicillins Allergy Intermediate RASH Verified 08/29/17 20:11 Physical Exam - Additional Findings Additional findings: - Constitutional Appears: No Acute Distress, Chronically Ill - Eye Exam Eye Exam: EOMI, Normal appearance - ENT Exam ENT Exam: Mucous Membranes Moist - Respiratory Exam Additional comments: Coarse breath sounds bilaterally with some rales and congestion - Cardiovascular Exam Cardiovascular Exam: Irregular Rhythm, +S1, +S2 - GI/Abdominal Exam GI & Abdominal Exam: Soft, Hypoactive Bowel Sounds. absent: Distended, Guarding , Tenderness - Extremities Exam Additional comments: Evidence of chronic venous stasis Pedal pulses weak - Neurological Exam Neurological Exam: Awake - Skin Skin Exam: Dry, Warm Assessment & Plan - Assessment and Plan (Free Text) Plan: Inpatient Hospice Via [facility] [place] Recommendations to start: Morphine drip 1 mg/hr and titrate up as needed for patient comfort Ativan 0.5 mg Q6 prn anxiety Hyosyamine .125 mg SL Q4H prn secretions Discussed with Dr. Lockhart <Michael Lockhart - Last Filed: 09/20/17 18:26> Attending/Attestation - Attestation I have personally seen and examined this patient.: Yes I have fully participated in the care of the patient.: Yes I have reviewed all pertinent clinical information: Yes Notes (Text): 09/20/17 18:25 Medical attending: Please note the patient shortly thereafter. The time of expiration was 18:01. I have filled out the EDRS and given it to the floor staff. I have also called and notified the patient's daughter as well and offered them my condolences. Michael Lockhart
--- NOTE | 2017-09-20 18:05 | CP.PCM.PRO ---
Pronouncement of Note - Clinical Findings Physical Exam: No Response Verbal/Painful Stimuli, Absent Peripheral Pulses{ Carotid & Femoral}, Absent Heart & Breath Sounds, No Corneal Reflex, Pupils Fixed & Dilated - Pronouncement Time Time of Pronouncement of : 18:01 - Notifications Pronouncement Notifications: Family Notified, Atending Notified Trim Stencil Maker Notified: No - Autopsy Autopsy Requested: No - [place] [id number]
--- NOTE | 2017-09-20 18:07 | CP.PCM.DIS ---
<Gee Raines - Last Filed: 09/20/17 18:07> Provider - Provider Date of Admission: 09/20/17 16:33 Attending physician: Michael Lockhart DO Primary care physician: Dr. Saldaña Time Spent in preparation of Discharge (in minutes): 31 Diagnosis - Discharge Diagnosis (1) in hospice Status: Acute Hospital Course - Hospital Course Hospital Course: Initial Note: Patient previously admitted on 08/30/17 to [facility] due to NSTEMI and severe sepsis due to pneumonia. Patient with significantly elevated troponins. Cardiac catheterization was recommended, but the family refused, and therefore medical management was the only option remaining. Patient had an NSTEMI leading to severe acute systolic CHF with low ejection fraction. Patient also with pseudomonas in the sputum and pleural effusions. She was treated with Aztreonam for the pseudomonas. Patient with ESRD, and a dialysis catheter was inserted on this admission in order to begin a T, Th, S dialysis schedule. Patient's family elected to change her code status to DNR/DNI and were deliberating on goals of care. Patient's family ultimately elected for hospice care given the patient's poor prognosis and for her comfort. Patient is being discharged to inpatient hospice care under [facility]. Cannot obtain ROS because of patient's lethargic condition. Hospital Course: Patient admitted for inpatient hospice with [facility]. Patient at 18:01 at 09/20/17. Attending notified. Family was notified as well. They will be coming to see the patient. [place] EDRS was filled out. Discharge Exam - Additional Findings Additional findings: Absence of vital signs. No corneal reflexes. Pupils dilated and non-reactive to light. No carotid or femoral pulses. No heart or lung sounds auscultated. Discharge Plan - Follow Up Plan Disposition: HOME/ ROUTINE <Michael Lockhart - Last Filed: 09/20/17 18:29> Provider - Provider Date of Admission: 09/20/17 16:33 Attending physician: Michael Lockhart DO Attending/Attestation - Attestation I have personally seen and examined this patient.: Yes I have fully participated in the care of the patient.: Yes I have reviewed all pertinent clinical information, including history, physical exam and plan: Yes Notes (Text): 09/20/17 18:27 Medical attending: Patient at 18:01, I reached out to the next of kin, her daughter Annmarie Stauffer and explained that family member had . I offered them my condolences. The [place] EDRS was filled out and printed and was placed in the chart. thank you Michael Lockhart
== END 2017-09-20 18:01 ==
LOC: C.5S 16:33
PROVIDERS: ADMIT Hospitalist; ATTEND Hospitalist
DX: I13.2 Hypertensive heart and chronic kidney disease with heart failure and with stage 5 chronic kidney disease, or end stage renal disease (principal); I22.9 Subsequent ST elevation (STEMI) myocardial infarction of unspecified site; I50.23 Acute on chronic systolic (congestive) heart failure; I21.4 Non-ST elevation (NSTEMI) myocardial infarction; E11.22 Type 2 diabetes mellitus with diabetic chronic kidney disease; N18.6 End stage renal disease; C18.9 Malignant neoplasm of colon, unspecified; Z99.2 Dependence on renal dialysis; Z79.4 Long term (current) use of insulin; E78.00 Pure hypercholesterolemia, unspecified; Z66 Do not resuscitate